=== PATIENT | female | born 1985 | race Caucasian/White ===

== ENCOUNTER → 2018-03-05 12:21 | Outpatient (CLI) | payer MEDICARE, MEDICAID, SELFPAY ==
[2018-03-09 03:07] LABS: Almond 6.02 kU/L (Class IV); Apple 5.08 kU/L (Class IV); Banana 4.63 kU/L (Class IV); Barley, Whole Grain 5.31 kU/L (Class IV); Beef 0.12 kU/L (Class 0/I); Brazil Nut 3.93 kU/L (Class IV); Carrot 5.01 kU/L (Class IV); Crab 3.24 kU/L (Class III); Egg, Whole 0.16 kU/L (Class 0/I); Egg, Yolk 0.11 kU/L (Class 0/I); Garlic 5.01 kU/L (Class IV); Gluten 5.09 kU/L (Class IV); Hazelnut/Filbert 4.46 kU/L (Class IV); Lobster 1.99 kU/L (Class III); Oat 6.02 kU/L (Class IV); Onion 5.16 kU/L (Class IV); Pea 5.08 kU/L (Class IV); Pecan 1.36 kU/L (Class II); Pork 0.17 kU/L (Class 0/I); Potato, White 5.44 kU/L (Class IV); Rice 6.33 kU/L (Class IV); Salmon 0.21 kU/L (Class 0/I); Strawberry 5.64 kU/L (Class IV); Tomato 5.86 kU/L (Class IV); Tuna <0.10 kU/L (Class 0); Yeast 0.27 kU/L (Class 0/I)
[2018-03-09 14:09] LABS: Cashew 3.84 kU/L (Class III); Turkey 0.22 kU/L (Class 0/I)
== END ==
PROVIDERS: Family Provider Family Medicine; PCP Family Medicine; Visit Provider Otolaryngology Otolaryngology/Facial Plastic Surgery
DX: T78.40XA Allergy, unspecified, initial encounter (principal)
CPT/HCPCS: 36415; 86003

== ENCOUNTER 2018-04-05 08:00 | Outpatient (RCR) | payer MEDICARE, MEDICAID, SELFPAY | END 2018-04-05 23:59 | disposition home or self-care (01) | LOC: NS 08:00 | PROVIDERS: Family Provider Family Medicine; PCP Family Medicine; Visit Provider Otolaryngology Otolaryngology/Facial Plastic Surgery | DX: K52.29 Other allergic and dietetic gastroenteritis and colitis (principal); Z71.3 Dietary counseling and surveillance | CPT/HCPCS: 97802 ==

== ENCOUNTER 2018-12-28 22:39 | Emergency (ER) | payer MEDICARE, MEDICAID, SELFPAY ==
[2018-12-28 22:39] VITALS: BP 151/83; PULSE 73; RESP 16; TEMP 36.5; O2SAT 100; BMI 35.6
--- NOTE | 2018-12-28 23:09 | ED.DCSUM_ITS ---
- ER Visit Summary Date of Service: 12/28/18 Chief Complaint: Patient reports pain, redness and itching left eye History of Present Illness: The patient is a 33 F who presents because coworkers concerned that the redness may affect her retina. She denies double vision, blurred vision loss of vision. She has no history of trauma. She does not wear contacts nor does she wear glasses. She denies drainage from the eye. She denies photophobia. She is apprehensive to open it because of pain. Physical Examination: Vital signs noted blood pressure is elevated. She does have history of high blood pressure. There is a subconjunctival hemorrhage temporal half left eye. Pupils are equal round reactive paradoxic muscle intact. Sclerae anicteric. There is no photophobia to direct or consensual light. There is no preauricular lymphadenopathy. There is no advised the lid, lash and lacrimal apparatus. There is no evidence of preseptal cellulitis. There is no outward signs of trauma. Slit-lamp exam reveals no abnormality cornea and the anterior chamber is normal. Test Results: None were obtained Emergency Department Course and Treatment: Patient was informed she has a subconjunctival hemorrhage. Since she has no prior history and has no history of bleeding disorder, rash and specifically petechia purpura, hematuria melena or hematochezia no workup is needed at this time. Treatment Plan: Outpatient referral to Dr. Deonte Cisse as needed Disposition: Discharge to home Impression: Subconjunctival hemorrhage left eye This note was generated with [employer] dictation software. It may contain incorrect words, spelling, and punctuation that were not noted in review of the chart prior to signing ED Disposition - Plan for ED Patient: Disposition: Home or Assisted Living Instructions: ED Eye Injury Subconj Hemorrhage Referrals: Kurt Brizuela MD [Primary Care Provider] - As Needed Deonte Cisse MD [STAFF PHYSICIAN] - As Needed
[2018-12-28 23:33] VITALS: BP 151/83; PULSE 73; RESP 15; O2SAT 100
== END 2018-12-28 23:34 | disposition home or self-care (01) ==
PROVIDERS: Emergency Provider Emergency Medicine; Family Provider Family Medicine; PCP Family Medicine
DX: H11.32 Conjunctival hemorrhage, left eye (principal); I10 Essential (primary) hypertension; Z87.891 Personal history of nicotine dependence
CPT/HCPCS: 99282

== ENCOUNTER 2019-01-31 22:19 | Emergency (ER) | payer MEDICARE, MEDICAID, SELFPAY ==
[2019-01-31 22:19] VITALS: BP 124/79; PULSE 89; RESP 16; TEMP 36.8; O2SAT 98; BMI 35.2
[2019-01-31 22:41] LABS: Bedside Glucose 162 mg/dL (70-110)
--- NOTE | 2019-01-31 22:57 | EKG12_ITS ---
Test Reason : DIZZINESS Blood Pressure : / mmHG Vent. Rate : 092 BPM Atrial Rate : 092 BPM P-R Int : 170 ms QRS Dur : 074 ms QT Int : 364 ms P-R-T Axes : 034 -01 024 degrees QTc Int : 450 ms Normal sinus rhythm Normal ECG Confirmed by CORA JORDAN, BLANCA ([id number]), pictures editor RIANNA AKBAR ([id number]) on 02/03/2019 11:50:33 AM Referred By: MARIO Confirmed By:BLANCA SHEPHERD MD
--- NOTE | 2019-01-31 22:58 | ED.VIS.GEN ---
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 involuntary convulsions RUE. no LOC. Narrative: Patient states she has a history of a seizure disorder, she stopped taking her seizure medicine for years ago because she did not want to be on it. She states she has not had any seizure activity. Tonight she felt chills and lightheaded, about 30 or 45 minutes later she started feeling gradual onset of numbness throughout her right side and convulsions her right arm that she could not stop, which continued to this time. She had trouble walking. She denies a headache or any loss of consciousness. She does not know what her prior seizures would like, she thinks she was unconscious for them and only knows that her boyfriend saw them when they occurred, who is who took her to see an unknown doctor in [place] to manage this problem who she has not seen in a long time. She does not remember what medication she was on since she has not taken it in 4 years. She denies any recent head injury or illness. She denies using any drugs or substances. - Past Medical History (1) HTN (hypertension) Status: Chronic (2) Type 2 diabetes mellitus Status: Chronic (3) Seizure disorder Status: Chronic Past Medical History - Allergies and Home Meds Allergies/Adverse Reactions: Allergies codeine phosphate [From Tylenol-Codeine #3] Allergy (Verified 01/31/19 22:21) Swelling shellfish derived Allergy (Verified 01/31/19 22:21) Swelling venom-honey bee [bee venom (honey bee)] Allergy (Verified 01/31/19 22:21) Angioedema Primary Care Physician: Kurt Brizuela MD [Primary Care Provider] - Surgical History: - - C-sections Smoking Status: Current every day smoker Drugs: None Review of Systems General: Reports: Chills, Malaise. Denies: Fever, Sweats Eyes: Denies: Visual changes - bilaterally, Diplopia ENT: Denies: Rhinorrhea, Sore throat Cardiovascular: Denies: Chest pain, Palpitations Respiratory: Denies: Dyspnea, Cough, Dyspnea on exertion Gastrointestinal: Denies: Abdominal pain, Nausea, Vomiting, Diarrhea, Melena, Hematochezia Genitourinary: Denies: Dysuria, Hematuria, Frequency Musculoskeletal: Denies: Back pain, Extremity Pain Skin: Denies: Rash, Wounds Neurological: Reports: Parasthesia, - - tremor/convulsions RUE. Denies: Headache, Weakness Physical Exam Vital Signs/Narrative: Vital Signs Temp Pulse Resp BP Pulse Ox 01/31/19 22:19 98.2 F 89 16 124/79 H 98 Inital Vital Signs reviewed: Yes General: Well nourished, Well developed, No Acute Distress Head: Normocephalic, Atraumatic Eyes: Perrl, EOMI ENT: Moist mucous membranes, No rhinorrhea Neck: Supple, Nontender Cardiovascular: Regular rate, Regular rhythm, No murmurs Respiratory: No distress, CTA bilaterally, Chest nontender Abdomen: Soft, Nontender, Nondistended, Normal bowel sounds Back: Nontender, Normal Inspection. Negative for: CVA tenderness Extremities: Nontender, No edema Skin: Normal color, No rash, No Trauma Neurological: Alert, Oriented x3, Cranial nerves II-XII grossly intact, Parasthesia - RUE and RLE. nml sensation on face., Weakness - RUE and RLE, - - rhythmic convulsions RUE that come and go, minutes at a time. BUE tremulous when holding up. RLE hits bed. RUE drifts. nml response/answers to questions. no dysarthria or aphasia, nml EOM and visual knutson and cerebellar. Total NIHSS - 4.. Negative for: Left side facial droop, Right side facial droop Psychological: Normal affect, Normal Mood Diagnostic/Tx/Re-eval Impressions Head CTA 01/31/19 23:05 IMPRESSION: Normal [place] without a demonstrated aneurysm or hemodynamically significant stenosis. Electronically Signed: Kenny Pearson MD at 0:39 EDT , Service support , Neck CTA 01/31/19 23:05 IMPRESSION: Normal bilateral cervical carotid and vertebral arteries. Electronically Signed: Kenny Pearson MD at 0:33 EDT , Service support , 01/31/19 23:05 CTA Head W/WO Contrast [CT] Stat CTA Neck W/WO Contrast [CT] Stat Laboratory Results 01/31/19 01/31/19 01/31/19 22:31 23:30 23:30 WBC 6.5 RBC 4.12 L Hgb 12.4 Hct 36.4 L MCV 88.3 MCH 30.1 MCHC 34.1 RDW 15.0 H RDW Differential 47.7 H Plt Count 179 MPV 10.3 Immature Gran % (Auto) 0.300 Neut % (Auto) 59.2 Lymph % (Auto) 29.9 [place] % (Auto) 7.8 Eos % (Auto) 2.5 Baso % (Auto) 0.3 Absolute Neuts (auto) 3.9 Absolute Lymphs (auto) 1.95 Total Counted Not Reportable Sodium 141 Potassium 3.9 Chloride 109 H Carbon Dioxide 25.0 Anion Gap 7 BUN 10 Creatinine 0.72 Estim Creat Clear Calc 91.93 Est GFR (MDRD) Af Amer 118 Est GFR (MDRD) Non-Af 98 BUN/Creatinine Ratio 13.8 Glucose 95 Calcium 8.4 L POC Glucose 162 H - Rhythm Strip Rhythm Strip: Sinus Rhythm Rate: 90 Ectopy: None - EKG Initial EKG Interpretation: Sinus Rhythm, No Acute Injury Pattern, - - normal EKG - Medical Decision Making Imaging shows no large vessel occlusion, hemorrhage, or suspicion for acute ischemic abnormality. Her labs are unremarkable, her EKG shows sinus rhythm and is normal. After Ativan, the convulsions and right upper extremity stopped. She is feeling drowsy, and while she was walking to the bathroom with nursing assistance, she seemed to pass out in their arms, and was taken back to the room and had normal vital signs on reevaluation, normal spontaneous breathing and a quick recovery. She did not remember walking to the bathroom. She is neurologically intact and able to move all 4 extremities equally and with normal strength. Plan is to observe her here in the ED longer, give her some more fluids, and eventually discharge her home when she is more awake to follow-up with neurology. She wants to follow-up locally, she was given their information. She does not want to be on antiepileptics at this time. She was advised that she cannot drive. ED Disposition - Plan for ED Patient: Disposition: Home or Assisted Living Diagnosis: Simple partial seizures, Seizure disorder Instructions: Partial Seizures: Know What to Do, ED Seizure Recurrent Referrals: Trino Chambers MD [STAFF PHYSICIAN] - As soon as possible Additional Instructions: You Cannot drive until you are seen and cleared by Neurology. Call for an appointment.
--- NOTE | 2019-01-31 23:02 | ED.DCSUM_ITS ---
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 involuntary convulsions RUE. no LOC. Narrative: Patient states she has a history of a seizure disorder, she stopped taking her seizure medicine for years ago because she did not want to be on it. She states she has not had any seizure activity. Tonight she felt chills and lightheaded, about 30 or 45 minutes later she started feeling gradual onset of numbness throughout her right side and convulsions her right arm that she could not stop, which continued to this time. She had trouble walking. She denies a headache or any loss of consciousness. She does not know what her prior seizures would like, she thinks she was unconscious for them and only knows that her boyfriend saw them when they occurred, who is who took her to see an unknown doctor in [place] to manage this problem who she has not seen in a long time. She does not remember what medication she was on since she has not taken it in 4 years. She denies any recent head injury or illness. She denies using any drugs or substances. - Past Medical History (1) HTN (hypertension) Status: Chronic (2) Type 2 diabetes mellitus Status: Chronic (3) Seizure disorder Status: Chronic Past Medical History - Allergies and Home Meds Allergies/Adverse Reactions: Allergies codeine phosphate [From Tylenol-Codeine #3] Allergy (Verified 01/31/19 22:21) Swelling shellfish derived Allergy (Verified 01/31/19 22:21) Swelling venom-honey bee [bee venom (honey bee)] Allergy (Verified 01/31/19 22:21) Angioedema Primary Care Physician: Kurt Brizuela MD [Primary Care Provider] - Surgical History: - - C-sections Smoking Status: Current every day smoker Drugs: None Review of Systems General: Reports: Chills, Malaise. Denies: Fever, Sweats Eyes: Denies: Visual changes - bilaterally, Diplopia ENT: Denies: Rhinorrhea, Sore throat Cardiovascular: Denies: Chest pain, Palpitations Respiratory: Denies: Dyspnea, Cough, Dyspnea on exertion Gastrointestinal: Denies: Abdominal pain, Nausea, Vomiting, Diarrhea, Melena, Hematochezia Genitourinary: Denies: Dysuria, Hematuria, Frequency Musculoskeletal: Denies: Back pain, Extremity Pain Skin: Denies: Rash, Wounds Neurological: Reports: Parasthesia, - - tremor/convulsions RUE. Denies: Headache, Weakness Physical Exam Vital Signs/Narrative: Vital Signs Temp Pulse Resp BP Pulse Ox 01/31/19 22:19 98.2 F 89 16 124/79 H 98 Inital Vital Signs reviewed: Yes General: Well nourished, Well developed, No Acute Distress Head: Normocephalic, Atraumatic Eyes: Perrl, EOMI ENT: Moist mucous membranes, No rhinorrhea Neck: Supple, Nontender Cardiovascular: Regular rate, Regular rhythm, No murmurs Respiratory: No distress, CTA bilaterally, Chest nontender Abdomen: Soft, Nontender, Nondistended, Normal bowel sounds Back: Nontender, Normal Inspection. Negative for: CVA tenderness Extremities: Nontender, No edema Skin: Normal color, No rash, No Trauma Neurological: Alert, Oriented x3, Cranial nerves II-XII grossly intact, Parasthesia - RUE and RLE. nml sensation on face., Weakness - RUE and RLE, - - rhythmic convulsions RUE that come and go, minutes at a time. BUE tremulous when holding up. RLE hits bed. RUE drifts. nml response/answers to questions. no dysarthria or aphasia, nml EOM and visual knutson and cerebellar. Total NIHSS - 4.. Negative for: Left side facial droop, Right side facial droop Psychological: Normal affect, Normal Mood Diagnostic/Tx/Re-eval Impressions Head CTA 01/31/19 23:05 IMPRESSION: Normal [place] without a demonstrated aneurysm or hemodynamically significant stenosis. Electronically Signed: Kenny Pearson MD at 0:39 EDT , Service support , Neck CTA 01/31/19 23:05 IMPRESSION: Normal bilateral cervical carotid and vertebral arteries. Electronically Signed: Kenny Pearson MD at 0:33 EDT , Service support , 01/31/19 23:05 CTA Head W/WO Contrast [CT] Stat CTA Neck W/WO Contrast [CT] Stat Laboratory Results 01/31/19 01/31/19 01/31/19 22:31 23:30 23:30 WBC 6.5 RBC 4.12 L Hgb 12.4 Hct 36.4 L MCV 88.3 MCH 30.1 MCHC 34.1 RDW 15.0 H RDW Differential 47.7 H Plt Count 179 MPV 10.3 Immature Gran % (Auto) 0.300 Neut % (Auto) 59.2 Lymph % (Auto) 29.9 [place] % (Auto) 7.8 Eos % (Auto) 2.5 Baso % (Auto) 0.3 Absolute Neuts (auto) 3.9 Absolute Lymphs (auto) 1.95 Total Counted Not Reportable Sodium 141 Potassium 3.9 Chloride 109 H Carbon Dioxide 25.0 Anion Gap 7 BUN 10 Creatinine 0.72 Estim Creat Clear Calc 91.93 Est GFR (MDRD) Af Amer 118 Est GFR (MDRD) Non-Af 98 BUN/Creatinine Ratio 13.8 Glucose 95 Calcium 8.4 L POC Glucose 162 H - Rhythm Strip Rhythm Strip: Sinus Rhythm Rate: 90 Ectopy: None - EKG Initial EKG Interpretation: Sinus Rhythm, No Acute Injury Pattern, - - normal EKG - Medical Decision Making Imaging shows no large vessel occlusion, hemorrhage, or suspicion for acute ischemic abnormality. Her labs are unremarkable, her EKG shows sinus rhythm and is normal. After Ativan, the convulsions and right upper extremity stopped. She is feeling drowsy, and while she was walking to the bathroom with nursing assistance, she seemed to pass out in their arms, and was taken back to the room and had normal vital signs on reevaluation, normal spontaneous breathing and a quick recovery. She did not remember walking to the bathroom. She is neurologically intact and able to move all 4 extremities equally and with normal strength. Plan is to observe her here in the ED longer, give her some more fluids, and eventually discharge her home when she is more awake to follow-up with neurology. She wants to follow-up locally, she was given their information. She does not want to be on antiepileptics at this time. She was advised that she cannot drive. ED Disposition - Plan for ED Patient: Disposition: Home or Assisted Living Diagnosis: Simple partial seizures, Seizure disorder Instructions: Partial Seizures: Know What to Do, ED Seizure Recurrent Referrals: Trino Chambers MD [STAFF PHYSICIAN] - As soon as possible Additional Instructions: You Cannot drive until you are seen and cleared by Neurology. Call for an appointment.
--- NOTE | 2019-01-31 23:05 | CT_ITS ---
STUDY: CTA OF THE BRAIN REASON FOR EXAM: Female, 33 years old. RIGHT-sided weakness RADIATION DOSAGE (If Supplied By Facility): CTDIvol = ( 28.13 ) mGy, DLP = ( 1415.66 ) mGycm TECHNIQUE: CT angiography was performed with a multi-detector CT scanner. Data acquisition was obtained from the skull base through the vertex following intravenous administration of 100ml IV Isovue 300. MIP images were reconstructed from the axial data set. Post-processing of the angiographic images was performed, with multiplanar reformation and 3D reconstruction. Individualized dose optimization techniques were used for this CT. COMPARISON: None. FINDINGS: Normal bilateral [place] carotid arteries. Normal right cavernous carotid artery with a normal supraclinoid bifurcation. Normal left cavernous carotid artery with a normal supraclinoid bifurcation. Normal right A1 segments of the anterior cerebral artery. Normal left A1 segments of the anterior cerebral artery. Normal intact anterior communicating artery (ACOM). Normal bilateral A2 segments of the anterior cerebral arteries. Normal right M1 and M2 segments of the middle cerebral arteries, with a normal M1 bifurcation. Normal left M1 and M2 segments of the middle cerebral arteries, with a normal M1 bifurcation. Normal right posterior communicating artery (PCOM). Normal left posterior communicating artery (PCOM). Normal bilateral vertebral arteries. Normal basilar artery with a normal basilar bifurcation. The visualized bilateral superior cerebellar (SCA) arteries are normal. Normal bilateral P1, P2 and visualized P3 segments of the posterior cerebral arteries. There is no demonstrated aneurysm of the [place]. There is no demonstrated abnormality of the visualized brain. CT/CTA Head W/WO Contrast IMPRESSION: Normal [place] without a demonstrated aneurysm or hemodynamically significant stenosis. Electronically Signed: Kenny Pearson MD at 0:39 EDT , Service support ,
--- NOTE | 2019-01-31 23:05 | CT_ITS ---
STUDY: CTA NECK WITH CONTRAST REASON FOR EXAM: Female, 33 years old. RIGHT-sided paresthesia RADIATION DOSAGE (If Supplied By Facility): CTDIvol = ( 28.13 ) mGy, DLP = ( 1415.66 ) mGycm TECHNIQUE: CT angiography with multi-detector data acquisition was performed from the aortic arch to the skull base following intravenous administration of 100ml IV Isovue 370. MIP images were reconstructed from the axial data set. Post-processing of the angiographic images was performed, with multiplanar reformation and 3D reconstruction. Individualized dose optimization techniques were used for this CT. COMPARISON: None. FINDINGS: AORTIC ARCH: Normal visualized aortic arch. Normal origins of the brachiocephalic, left common carotid, and left subclavian arteries. RIGHT CAROTID ARTERIES: Normal right common carotid artery (CCA). Normal right common carotid bulb. Normal origin of the right internal carotid (ICA) artery without a hemodynamically significant stenosis. Normal visualized cervical portion of the right internal carotid artery. Normal origin of the right external carotid artery (ECA). LEFT CAROTID ARTERIES: Normal left common carotid artery (CCA). Normal left common carotid bulb. Normal origin of the left internal carotid (ICA) artery without a hemodynamically significant stenosis. Normal visualized cervical portion of the left internal carotid artery. Normal origin of the left external carotid artery (ECA). VERTEBRAL ARTERIES: Normal bilateral vertebral arteries. CT/CTA Neck W/WO Contrast IMPRESSION: Normal bilateral cervical carotid and vertebral arteries. Electronically Signed: Kenny Pearson MD at 0:33 EDT , Service support ,
[2019-01-31] MEDS: LORazepam 2 MG/ML Syringe 0.5 MG IV (23:19)
[2019-01-31] MEDS: 0.9% Normal Saline 1,000 ML 999 ML IV (23:19)
[2019-01-31 23:44] LABS: Absolute Lymphocyte Count 1.95 X10^3/ul (0.83-4.51); Absolute Neutrophil Count 3.9 X10^3/uL (2.0-7.7); Basophil# 0.02 X10^3/uL; Basophil% 0.3 % (0-1); Eosinophil# 0.16 X10^3/uL; Eosinophils% 2.5 % (0-5); Hematocrit 36.4 % (37-47); Hemoglobin 12.4 g/dl (12.0-15.0); Lymphocyte # 1.95 X10^3/ul (4.0); Lymphocyte % 29.9 % (19-41); Mean Corp Hgb Conc 34.1 g/gl (32-36); Mean Corpuscular Hgb 30.1 pg (27.0-32.0); Mean Corpuscular Volume 88.3 fL (81-99); Mean Platelet Vol. 10.3 fl (6.2-12.0); Monocyte# 0.51 X10^3/uL; Monocyte% 7.8 % (0-10); Neutrophil # 3.86 X10^3/uL (2.7-7.7); Neutrophil % 59.2 % (47-70); POSITIVE COUNT NO; POSITIVE DIFFERENTIAL NO; POSITIVE MORPHOLOGY NO; Platelet Count 179 K/mm3 (150-450); RBC Distribution Width SD 47.7 fl (35.1-43.9); Red Blood Count 4.12 M/mm3 (4.2-5.4); White Blood Count 6.5 K/mm3 (4.4-11.0)
[2019-01-31 23:59] LABS: Anion Gap 7 (5-15); BUN 10 mg/dL (7-18); BUN/Creat Ratio 13.8 RATIO (10-20); Calcium,Total 8.4 mg/dL (8.5-10.1); Chloride 109 mmol/L (98-107); Creatinine, Serum 0.72 mg/dL (0.55-1.02); EST Glomerular Filtration Rate 98 mL/min (>60); Est Glom Filt Rate - Afr Amer 118 mL/min (>60); Estimated Creatinine Clearance 91.93 ml/min; Glucose 95 mg/dL (74-106); Potassium 3.9 mmol/L (3.5-5.1); Sodium Level 141 mmol/L (136-145)
[2019-02-01 00:30] VITALS: BP 116/78; PULSE 66; RESP 16; O2SAT 97
[2019-02-01 00:40] VITALS: BP 140/93; PULSE 67; RESP 18; O2SAT 100
--- NOTE | 2019-02-01 00:46 | ED.RN ---
while walking pt to the bathroom for urine sample- her gate became slow, she then passed out. 2 RN's held pt up until wheelchair brought. back to bed. BRYCE. aware. pt states she does not remember walking to the bathroom.
[2019-02-01 01:20] LABS: Red Blood Cells-Urine 0 SEEN /hpf (0-5); Squamous Epithelial Cells - UA 0 SEEN /hpf (5-10)
[2019-02-01 01:23] LABS: Color, Urine Yellow (Yellow); Glucose, Dipstick Normal (Normal); Ketone-Dipstick Negative (Negative); Leukocyte Esterase-Dipstick 25 /ul (Negative); Nitrite-Dipstick Negative (Negative); Occult Blood-Urine Negative /ul (Negative); Protein-Dipstick 15 mg/dl (Negative); Specific Gravity, Urine 1.015 (1.002-1.030); Urine Bilirubin Dipstick Negative (Negative); Urine Clarity Clear (Clear); Urine Urobilinogen 1 mg/dl (Normal); Urine pH 6.5 (5.0 - 8.0)
[2019-02-01 01:32] LABS: Internal QC Validated? YES +Cl - CLEAR BKGD; Pregnancy, Urine Negative Negative
[2019-02-01 01:34] LABS: Bacteria RARE /hpf (None Seen); Mucous, Urine 2+ /hpf (<or=2+); White Blood Cells 0-5 SEEN /hpf (0-5)
[2019-02-01 02:54] VITALS: BP 121/62; PULSE 66; RESP 16
== END 2019-02-01 02:54 | disposition home or self-care (01) ==
PROVIDERS: Emergency Provider Emergency Medicine; Family Provider Family Medicine; PCP Family Medicine
DX: G40.109 Localization-related (focal) (partial) symptomatic epilepsy and epileptic syndromes with simple partial seizures, not intractable, without status epilepticus (principal); I10 Essential (primary) hypertension; E11.9 Type 2 diabetes mellitus without complications; F17.200 Nicotine dependence, unspecified, uncomplicated
CPT/HCPCS: 36415; 70496; 70498; 80048; 81001; 81025; 82962; 85025; 93005; 96361; 96374; 99283; J7030; Q9967; A4216

== ENCOUNTER 2019-02-19 21:03 | Emergency (ER) | payer OTHER, MEDICARE, SELFPAY ==
[2019-02-19 21:03] VITALS: BP 144/82; PULSE 90; RESP 16; TEMP 36.6; O2SAT 98; BMI 33.3
--- NOTE | 2019-02-19 22:10 | RAD_ITS ---
STUDY: X-RAY - LEFT KNEE REASON FOR EXAM: Female, 33 years old. Generalized left knee pain beginning today. TECHNIQUE: 4 view(s) of the knee. COMPARISON: None. FINDINGS: Normal visualized distal femur. Normal visualized proximal tibia and fibula. Normal proximal tibiofibular articulation. Vertebral fracture Normal medial femorotibial compartment. Normal lateral femorotibial compartment. Normal patellofemoral articulation. There is no demonstrated joint effusion. The soft tissue structures are unremarkable. RAD/Knee 4 or More Views IMPRESSION: Normal x-ray examination of the knee. Electronically Signed: Han Garcia DO at 22:27 EDT Tel [phone], Service support ,
--- NOTE | 2019-02-19 23:02 | ED.DCSUM_ITS ---
- ER Visit Summary Date of Service: 02/19/19 Chief Complaint: [Left knee pain] History of Present Illness: The patient is a 33 F [presents the emergency department complaint left knee pain that started 6 hours ago. Patient was at work when it started. Patient denies any injury or trauma. Patient states the pain is worse with walking. At times patient feels like it pops. She denies recent travel or surgery. She has not had pain like this before.] Physical Examination: [Left knee-patient has diffuse tenderness over the medial joint line and the prepatellar tendon. Patient has pain with flexion at the knee. No obvious effusion noted. There is no erythema or warmth noted. She is neurovascular intact distally. She has no tenderness over the calf. No ropes or cords palpated. Negative Homans sign.] Test Results: [X-ray of the left knee was normal] Emergency Department Course and Treatment: [Patient was given a knee immobilizer and crutches.] Treatment Plan: [She will be given a prescription for naproxen. Patient will be given referral to orthopedics for follow-up.] Disposition: [Discharged home stable condition] Impression: [Left knee pain-etiology uncertain. Cannot rule out internal derangement.] This note was generated with [employer] dictation software. It may contain incorrect words, spelling, and punctuation that were not noted in review of the chart prior to signing ED Disposition - Plan for ED Patient: Referrals: Kurt Brizuela MD [Primary Care Provider] -
--- NOTE | 2019-02-19 23:03 | ED.DEP ---
ED Disposition - Plan for ED Patient: Instructions: ED Knee Pain [facility] Prescriptions: Naproxen [Naprosyn] 500 mg PO BID PRN #20 tab Referrals: Kurt Brizuela MD [Primary Care Provider] - Dayron Andrews MD [STAFF PHYSICIAN] - 3-5 Days
[2019-02-19 23:13] VITALS: BP 136/72; PULSE 80; RESP 16; O2SAT 100
== END 2019-02-19 23:13 | disposition home or self-care (01) ==
LOC: ED 21:59
PROVIDERS: Emergency Provider Emergency Medicine; Family Provider Family Medicine; PCP Family Medicine
DX: M25.562 Pain in left knee (principal); I10 Essential (primary) hypertension; Z72.0 Tobacco use
CPT/HCPCS: 73564; 99284

== ENCOUNTER 2019-08-14 09:07 | Day surgery (SDC) | payer OTHER, MEDICARE, SELFPAY ==
[2019-05-12 11:11] VITALS: BMI 33.3
--- NOTE | 2019-08-12 16:27 | HP.PCM_ITS ---
History and Physical Date of Admission: 08/14/19 HPI: The patient is a 34 year old female presenting for pre-operative visit. She is scheduled for?hysteroscopy with resection of submucosal fibroids and Mirena insertion, for?menorrhagia on?08/14/19. ??Procedure discussed along with risks, benefits and complications. ?Other alternatives discussed for management. Consent form signed??Yes.? PAST?MEDICAL?HISTORY PAST MEDICAL HISTORY Diagnosis Date ? Diabetes mellitus of mother, complicating , childbirth, or the puerperium, unspecified as to episode of care(648.00) ? ? Gestational diabetes ? Dysthymic disorder ? ? Depression (non-psychotic), ? Essential hypertension, benign ? ? Hemorrhoids 05/19/2011 ? Migraine, unspecified, with intractable migraine, so stated, without mention of status migrainosus ? ? Migraine ? Nipple discharge 02/19/2016 ? PMH - PAST MEDICAL HISTORY OF ? ? DYSLEXIA ? PMH - PAST MEDICAL HISTORY OF 1988 ? FRACTURED LEFT LEG ? PMH - PAST MEDICAL HISTORY OF 01/12 ? HOSPITALIZED FOR RUPTURED OVARIAN CYST ? SPINAL HEADACHE ? ? WITH DELIVERIES IN 2009&2011 ? Unspecified asthma(493.90) ? ? ? PAST?SURGICAL?HISTORY PAST SURGICAL HISTORY Procedure Laterality Date ? DELIVERY ONLY ? 03/31/2008,10/14/2009 ? , low cervicalx2 ? DELIVERY ONLY ? 06/06/13 ? , low transverse ? CHOLECYSTECTOMY ? 10/07/2018 ? COLONOSCOP W/ OR W/O BRSH SPEC ? 11/28/2013 ? Colonoscopy ? EGD W/O OR W/BRUSH/WASH ? 11/28/2013 ? EGD ? LIGATE FALLOPIAN TUBE ? 06/06/13 ? Tubal ligation ? REMOVAL OF GALLBLADDER ? 10/07/2018 ? [place] ? REPAIR UMBILICAL HERNIA ? 06/20/2017 ? with ventralex ST medium mesh [facility]? ? ? CURRENT?MEDICATIONS Current Outpatient Medications Medication Sig Dispense Refill ? promethazine (PHENERGAN) 12.5 mg tablet TAKE 1 TABLET BY MOUTH EVERY 6 HOURS NEEDED 12 tablet 0 ? traZODone (DESYREL) 150 mg tablet Take 1 tablet by mouth daily at bedtime. 30 tablet 2 ? lisinopril (ZESTRIL, PRINIVIL) 20 mg tablet Take 1 tablet by mouth once daily. 30 tablet 5 ? escitalopram oxalate (LEXAPRO) 20 mg tablet Take 1 tablet by mouth once daily. 30 tablet 2 ? metFORMIN (GLUCOPHAGE) 500 mg tablet Take 1 tablet by mouth daily with breakfast. 30 tablet 11 ? Woiousxgelxcsbq-Kjadavvzb-WH (BROMFED DM) 2-30-10 mg/5 mL syrup Take 5-10 ml po q6h prn (Patient not taking: Reported on 07/17/2019 ) 120 mL 0 ? albuterol HFA (PROAIR HFA) 90 mcg/actuation inhaler Inhale 2 Puffs as instructed every 4 hours as needed. 1 Inhaler 0 ? albuterol HFA (VENTOLIN HFA) 90 mcg/actuation inhaler Inhale 2 Puffs as instructed every 4 hours as needed for Wheezing/Shortness of Breath. (Patient not taking: Reported on 07/24/2019 ) 1 Inhaler 0 ? No current facility-administered medications for this visit.? ? ALLERGIES:?Augmentin [Amoxicillin-Pot Clavulanate]; Tylenol #3 [Codeine]; Venom- Honey Bee ? PERSONAL HISTORY:? 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 control/protection: Tubal Ligation ??Lifestyle ?Physical activity: ?Days per week: Not on file ?Minutes per session: Not on file ?Stress: Not on file ??Relationships ?Social connections: ?Talks on phone: Not on file ?Gets together: Not on file ?Attends lutheran service: Not on file ?Active member of club or organization: Not on file ?Attends meetings of clubs or organizations: Not on file ?Relationship status: Not on file ?Intimate partner violence: ?Fear of current or ex partner: Not on file ?Emotionally abused: Not on file ?Physically abused: Not on file ?Forced sexual activity: Not on file ??Other Topics ?Concerns: ?Not on file ??Social History Narrative ?Not on file ? FAMILY HISTORY:? FAMILY?HISTORY FAMILY HISTORY Problem Relation Age of Onset ? Asthma Mother ? ? Hypertension Mother ? ? Hypertension Father ? ? Diabetes Father ? ? Cancer Maternal Grandfather ?LUNG CANCER ? Cancer Paternal Grandfather ?THROAT CANCER ? Heart Maternal Grandmother ?DC ? Lipids Father ? ? Breast Cancer Mother ? ? Breast Cancer Maternal Aunt ? ? Breast Cancer Paternal Aunt ? ? Diabetes Mother ? ? REVIEW OF SYMPTOMS: GENERAL: denies fevers or chills ENDOCRINOLOGY: has not been on steroids Cardiology : denies palpitations or chest pain Respiratory: denies SOB or cough Hematology: denies history of prolonged bleeding or easy bruising or VTE Allergy: Denies history of personal or family history of allergy to anesthesia ? ? PHYSICAL EXAMINATION: ? VITALS:?There were no vitals taken for this visit. ? GENERAL:??The patient is well nourished, well hydrated in no acute distress. ?, The patient is oriented to time, place, and person. NECK:?Supple. No lynphadenopathy, normal thyroid, no thyromegaly. LUNGS:?Clear to auscultation bilaterally. no wheezes, rhonchi or rales HEART:?Regular rate and rhythm, Normal heart sounds and No murmurs or gallops ? ? ? IMPRESSION:?menorrhagia, submucosal uterine fibroids ? PLAN:???The risks/benefits/alternatives and personal involved for the planned?hysteroscopy with resection of uterine fibroids and Mirena insertion?were reviewed with the patient. Her questions were answered to her satisfaction and she desires to proceed. ?Consent was signed. ?I reviewed with her postop instructions and expectations. ? ? I have reviewed and updated past medical and surgical history, medications and allergies. Pelvic us 07/18/19 ?Overall impression: Uterus normal size and contour. ?Endometrial thickness 10.6 mm. ?There is a small submucosal fibroid that is projecting into the cavity approximately 50% measuring 0.9 cm in greatest dimension. ?There are 3 subserosal fibroids the largest measuring 1.6 cm in greatest dimension. ?The other 2 fibroids ?are less than 1 cm each. Both ovaries appear polycystic in nature. No free fluid in the cul-de-sac. Follow- up: Follow-up as clinically indicated. Indication: Irregular cycles. Menorrhagia. History: Last menstrual period: 07/11/2019. 8th day of cycle. Cycle length: 21 days. Gynecological History: Bleedin days. Abnormal. Contraception: sterilization. Gynecological Ultrasonography: Uterus: anteverted, axial tilt fundally. Size: Longitudinal 83 mm. Anterio- posterior 42 mm. Transverse 49 mm. Volume: 89.4 ?ml. Uterine abnormalities: none. Fibroids: Fibroid 1: Size: 8 mm x 9 mm x 9 mm. Type: subserous fibroid. Anterior. Fibroid 2: Size: 8 mm x 8 mm x 8 mm. Type: subserous fibroid. Anterior. Fibroid 3: Size: 16 mm x 12 mm x 17 mm. Type: subserous fibroid. Anterior. Fibroid 4: Size: 9 mm x 8 mm x 9 mm. Type: submucous fibroid, less than 50% projects into the endometrial cavity. Posterior. Endometrium thickness total: 10.6 mm. This H&P was completed in my office on 08/12/19.
[2019-08-14] VITALS (13 sets, daily range): BP systolic 92–116; BP diastolic 55–76; PULSE 70–85; RESP 16; TEMP 36.7–36.8; O2SAT 96–100; BMI 34.0
--- NOTE | 2019-08-14 | EMB_PTH ---
PATIENT: REINALDO WARREN LOC: [facility] [place] U#:[id number] AGE/SX: 34/F ROOM: RE08/14/[address]: Dr. Renee Manuel MD : 1985 BED: DIS: 08/14/2019 SPEC #: [id number] RECD: 08/14/19 12:54 STATUS: MAEGAN REAnanth #: [id number] DONAVON: 08/14/19 00:[address]: Renee Manuel DEPT: SURGICAL PATHOLOGY RECD BY: Max Barney ENTERED: 08/14/19 12:55 SP TYPE: ENDOM BX/C OTHR DR: Dr. Kurt Brizuela MD Tissues: Endometrium, NOS Procedures: Surgery Specimen Level IV HEADER OPERATION: Hysteroscopy, D & C, IUD insertion PRE-OP DIAGNOSIS: Menorrhagia TISSUE SUBMITTED: Endometrial curettings MICROSCOPIC DIAGNOSIS Endometrium, curettings: Transition endometrium with glandular and stromal breakdown. Strips of benign superficial endocervix. AM:jennifer 08/15/19 MICROSCOPIC DESCRIPTION Slides are reviewed. GROSS DESCRIPTION Received in fixative is one container labeled with the patient's name and designated endometrial curettings. The specimen consists of multiple fragments of hemorrhagic soft tissue mixed with mucoid tissue that in aggregate measure 5 x 3 x 0.3 cm. The entire specimen is submitted in two cassettes. / SJ:jennifer 08/14/19 TC:5 CPT: 68615
[2019-08-14] MEDS: Celecoxib 200 MG Capsule 400 MG PO (09:44)
--- NOTE | 2019-08-14 09:44 | PCM.OPRPT ---
Report of Operation Date of Procedure: 08/14/19 Pre-Operative Diagnosis: menorrhagia, dysmenorhea, uterine fibroids Post-Operative Diagnosis: same + fibroids of uterus- intramural Surgery/Procedure Performed:: TVH, cystoscopy, modified Mayo's culdoplasty Description of Surgical Findings:: Retroverted retroflexed uterus, normal cervix and vagina. Type of Anesthesia:: MAC/Supplemental/Local Anesthesiologist: Josafat Marcano Special Medications: none Specimen's removed: endometrial curettings Drains: none Estimated Blood Loss (mL): 20 Fluids Replaced: 900 cc Description of Procedure: The patient was taken to the OR where she was prepped and draped in dorsal lithotomy position. The weighted speculum was placed in the vagina and the anterior lip of the cervix was grasped with a single-tooth tenaculum. A paracervical block was administered with 1% lidocaine with 1-100,000 epinephrine solution. The cervix was dilated serially with Hegar dilators. The 5mm hysteroscope was placed into the uterine cavity due to the left endometrium I was unable to visualize the cavity well. The hysteroscope was removed. Gentle sharp curettage was done. Hysteroscope was reinserted. Bilateral tubal ostia were identified. The uterine cavity was normal in shape. There were no polyps or fibroids protruding into the endometrial cavity. The liz were smooth. The hysteroscope was removed. The Mirena intrauterine system was placed into the uterus in the usual sterile fashion and the strings trimmed to 3 cm. The instruments were removed from the vagina. The specimen was handed off and sent to pathology. All sponge and needle counts were correct. Vaginal sweep was performed by me. The patient was awakened and taken to the recovery room in stable condition. Hysteroscopic fluid deficit: 50 cc of normal saline Findings: Endometrial cavity: Normal, no fibroids or polyps noted Cervix: Normal Vagina: Normal Grafts/Implants Used: Mirena intrauterine system - Complications none - Admit VTE Documentation VTE Present on Admission: No VTE Mechan Device Prophylaxis: SCD's VTE Pharm Prophylaxis ordered?: No Reason prophylaxis not ordered:: Procedure Not Indicated
[2019-08-14] MEDS: Scopolamine 1mg/72hr Patch 1 PATCH TRANSDERM. (09:45)
[2019-08-14] MEDS: Acetaminophen 500 MG Tablet 1000 MG PO (09:45)
[2019-08-14 09:46] LABS: Bedside Glucose 87 mg/dL (70-110)
[2019-08-14] MEDS: Lactated Ringers 1,000 ML 100 ML IV ×2 (09:50→11:57)
[2019-08-14 09:54] LABS: Internal QC Validated? YES +Cl - CLEAR BKGD; Pregnancy, Urine Negative Negative
--- NOTE | 2019-08-14 10:35 | DCINST_ITS ---
Discharge Diet: No Restrictions Discharge Activity: Return to Normal Activity, May Shower, May Take a Tub Bath - in 2 weeks. Return to work on:: 08/18/19 May shower in (days): 1 May resume sexual activity in: 2 weeks Call your doctor if your incision/area has: Sudden Increased Bleeding, Foul Smelling Discharge Call your doctor if you observe: Fever of 101 or Higher, Using more than one pad per hour - for 2 hrs in a row Allergies/Adverse Reactions: Allergies codeine phosphate [From Tylenol-Codeine #3] Allergy (Verified 08/13/19 08:36) Swelling shellfish derived Allergy (Verified 08/13/19 08:36) Swelling venom-honey bee [bee venom (honey bee)] Allergy (Verified 08/13/19 08:36) Angioedema Medications to take at Discharge Lisinopril [Prinivil] 20 mg PO QHS 12/28/18 Escitalopram Oxalate 20 mg PO DAILY 01/31/19 Albuterol Inhaler [Ventolin Hfa] 1 - 2 puff INHALATION Q6H PRN PRN 08/13/19 Metformin HCl 500 mg PO BID 08/13/19 Trazodone ER [Oleptro Er] 150 mg PO QHS 08/13/19 Hydrocodone/Acetaminophen [[place] 5-325 Tablet] 1 each PO Q6H PRN PRN 2 Days #6 tablet 08/14/19 Naproxen [Naprosyn] 500 mg PO BID PRN #20 tab 08/14/19 The following prescriptions were given: Naproxen [Naprosyn] 500 mg PO BID PRN #20 tab Transmission Status: Pending to [facility]/pharmacy #[id number] Hydrocodone/Acetaminophen [[place] 5-325 Tablet] 1 each PO Q6H PRN PRN 2 Days #6 tablet PRN Reason: SEVERE PAIN Transmission Status: Received by [facility][id number] Primary Care Physician: Kurt Brizuela MD [Primary Care Provider] - Test Results: Test results from this visit will be discussed in further detail at your follow- up appointment, if applicable. Please Follow Up With: Renee Manuel MD - [phone] When: 2-3 months or as needed
[2019-08-14] MEDS: Lubricating Jelly 60 GM Tube 30 GM TOPICAL (10:53)
[2019-08-14 11:10] LABS: Bedside Glucose 108 mg/dL (70-110)
== END 2019-08-14 12:35 | disposition home or self-care (01) ==
LOC: SDC 09:18 → AC 09:19
PROVIDERS: Family Provider Family Medicine; PCP Family Medicine; Referring Provider Obstetrics & Gynecology; Visit Provider Obstetrics & Gynecology
PROC: 0UB98ZZ Excision of Uterus, Via Natural or Artificial Opening Endoscopic (ICD-10-PCS; CPT 58558; principal; 2019-08-14 10:30)
DX: N92.0 Excessive and frequent menstruation with regular cycle (principal); N94.6 Dysmenorrhea, unspecified; D25.1 Intramural leiomyoma of uterus; Z30.430 Encounter for insertion of intrauterine contraceptive device; K21.9 Gastro-esophageal reflux disease without esophagitis; E11.9 Type 2 diabetes mellitus without complications; F32.9 Major depressive disorder, single episode, unspecified; I10 Essential (primary) hypertension; J45.909 Unspecified asthma, uncomplicated; Z79.84 Long term (current) use of oral hypoglycemic drugs; Z79.899 Other long term (current) drug therapy; Z87.891 Personal history of nicotine dependence; Z86.73 Personal history of transient ischemic attack (TIA), and cerebral infarction without residual deficits
CPT/HCPCS: 58300; 58558; 81025; 82962; 88305; J7120

== ENCOUNTER 2019-08-17 21:37 | Emergency (ER) | payer OTHER, MEDICARE, SELFPAY ==
[2019-08-14 09:38] VITALS: BMI 34.0
[2019-08-17 21:38] VITALS: BP 141/81; PULSE 92; RESP 15; TEMP 37.2; O2SAT 95; BMI 34.7
[2019-08-17 22:04] VITALS: RESP 18
[2019-08-17] MEDS: Ondansetron 4 MG/2 ML Vial IV (22:22)
[2019-08-17] MEDS: Ketorolac 15 MG/ML Vial IV (22:24)
--- NOTE | 2019-08-17 22:25 | ED.DCSUM_ITS ---
History of Present Illness Chief Complaint: Other, Pain/Inj Informant: Patient Onset: Yesterday Context: Sudden Onset Timing: Continuous Quality: Cramping Location: Lower abdomen/left side Current Severity: Severe Maximum Severity: Severe Worsened by: Movement, palpation Relieved by: Nothing Associated Symptoms: Subjective fever Narrative: Patient is a 34-year-old woman who had a Mirena placed by Dr. Renee Manuel on . She presents because of severe colicky pain. She also complains of dysuria and frequency. She reports subjective fever. She denies chills. She denies vaginal bleeding or discharge. Patient states she wants the device removed. She denies cardiac or respiratory symptoms. She denies nausea, vomiting or diarrhea. Prior similar symptoms: No Recent Illness/Hospitalization: Yes - Past Medical History (1) HTN (hypertension) Status: Chronic (2) Seizure disorder Status: Chronic (3) Type 2 diabetes mellitus Status: Chronic Past Medical History - Allergies and Home Meds Allergies/Adverse Reactions: Allergies codeine phosphate [From Tylenol-Codeine #3] Allergy (Verified 08/17/19 21:41) Swelling shellfish derived Allergy (Verified 08/17/19 21:41) Swelling venom-honey bee [bee venom (honey bee)] Allergy (Verified 08/17/19 21:41) Angioedema Primary Care Physician: Kurt Brizuela MD [Primary Care Provider] - Prior records reviewed: Yes Surgical History: - - C-sections Lives: Alone Smoking Status: Former smoker Alcohol: Rare Drugs: None Review of Systems General: Reports: Fever, Subjective. Denies: Chills, Malaise Eyes: Denies: Visual changes - bilaterally, Blurred Vision - bilaterally ENT: Denies: Bilateral ear pain, Rhinorrhea, Sore throat Cardiovascular: Denies: Chest pain, Palpitations Respiratory: Denies: Dyspnea, Cough, Dyspnea on exertion Gastrointestinal: Reports: Abdominal pain, Nausea. Denies: Vomiting, Diarrhea, Constipation, Melena, Hematochezia, -, - Genitourinary: Reports: Dysuria, Frequency. Denies: Hematuria Musculoskeletal: Denies: Myalgias, Arthralgias, Neck pain, Back pain, Swelling, Extremity Pain, -, - Skin: Denies: Rash, Wounds Neurological: Denies: Headache, Weakness, Numbness Hematologic: Denies: Easy bruising, Easy bleeding Allergy: Denies: Uticaria, Swelling of the mouth Physical Exam Vital Signs/Narrative: Vital Signs Temp Pulse Resp BP Pulse Ox 08/17/19 22:04 18 08/17/19 21:38 99.0 F 92 15 141/81 H 95 Inital Vital Signs reviewed: Yes General: Well nourished, Well developed, No Acute Distress Head: Normocephalic, Atraumatic Eyes: Perrl, EOMI. Negative for: Pale conjunctiva, Scleral icterus ENT: Moist mucous membranes, No rhinorrhea Neck: Supple, Nontender. Negative for: No lymphadenopathy, No JVD Cardiovascular: Regular rate, Regular rhythm, No murmurs, Normal S1, Normal S2 Respiratory: No distress, CTA bilaterally, Chest nontender Abdomen: Soft, Nondistended, Normal bowel sounds, Tender. Negative for: Guarding, Rebound tenderness : - - External genitalia normal. There is blood noted at the introitus. Speculum exam reveals that the device was being expelled. Device was being expelled string was grasped with forceps and easily removed. Patient's cramping pain improved. There was no discomfort with bimanual exam. There is no obvious enlargement of the uterus. There is no cervical motion tenderness. Unable to assess ovaries based on body habitus. Back: Nontender, Normal Inspection Extremities: Nontender, No edema Skin: Normal color, No rash Neurological: Alert, Oriented x3, Cranial nerves II-XII grossly intact, Normal Strength, Normal Sensation Psychological: Normal affect, Normal Mood Diagnostic/Tx/Re-eval Laboratory Results 08/17/19 08/17/19 22:22 22:55 WBC 7.9 RBC 4.26 Hgb 13.1 Hct 37.6 MCV 88.3 MCH 30.8 MCHC 34.8 RDW Std Deviation 45.7 H RDW Coeff of Caren 14.3 Plt Count 193 MPV 10.4 Immature Gran % (Auto) 1.400 H Neut % (Auto) 72.0 H Lymph % (Auto) 21.0 [place] % (Auto) 4.0 Eos % (Auto) 1.1 Baso % (Auto) 0.5 Absolute Neuts (auto) 5.7 Absolute Lymphs (auto) 1.66 Nucleated RBC % 0 Urine Color Yellow Urine Clarity Sl. Cloudy Urine pH 7.0 Ur Specific [place] 1.010 Urine Protein 15 H Urine Glucose (UA) Normal Urine Ketones 5 H Urine Occult Blood 150 H Urine Nitrite Negative Urine Bilirubin Negative Urine Urobilinogen 4 H Ur Leukocyte Esterase 25 H Urine is unremarkable. White count and H&H are normal. - Medical Decision Making Since patient complains of fever will obtain blood work and will perform pelvic exam. ED Disposition - Plan for ED Patient: Disposition: Home or Assisted Living Diagnosis: Removal Mirena device, Pelvic cramping pain, Vaginal bleeding Instructions: Levonorgestrel Vaginal insert Referrals: Kurt Brizuela MD [Primary Care Provider] - Additional Instructions: Dr. Renee Manuel's office will contact you for follow-up. I spoke with her nurse practitioner Kelly Gar.
[2019-08-17 22:44] LABS: Absolute Lymphocyte Count 1.66 X10^3/uL (0.83-4.51); Absolute Neutrophil Count 5.7 X10^3/uL (2.0-7.7); Basophil# 0.04 X10^3/uL; Basophil% 0.5 % (0-1); Eosinophil# 0.09 X10^3/uL; Eosinophils% 1.1 % (0-5); Hematocrit 37.6 % (37-47); Hemoglobin 13.1 g/dL (12.0-15.0); Lymphocyte # 1.66 X10^3/ul (4.0); Mean Corp Hgb Conc 34.8 g/dL (32-36); Mean Corpuscular Hgb 30.8 pg (27.0-32.0); Mean Corpuscular Volume 88.3 fL (81-99); Mean Platelet Vol. 10.4 fl (6.2-12.0); Monocyte# 0.32 X10^3/uL; NRBC Flagged by Analyzer 0 % (0-5); Neutrophil # 5.69 X10^3/uL (2.7-7.7); Platelet Count 193 K/mm3 (150-450); RBC Distribution Width CV 14.3 % (11.6-14.6); RBC Distribution Width SD 45.7 fl (35.1-43.9); Red Blood Count 4.26 M/mm3 (4.2-5.4); White Blood Count 7.9 K/mm3 (4.4-11.0)
[2019-08-17 23:06] LABS: Color, Urine Yellow (Yellow); Glucose, Dipstick Normal (Normal); Ketone-Dipstick 5 mg/dl (Negative); Leukocyte Esterase-Dipstick 25 /ul (Negative); Nitrite-Dipstick Negative (Negative); Occult Blood-Urine 150 /ul (Negative); Protein-Dipstick 15 mg/dl (Negative); Urine Bilirubin Dipstick Negative (Negative); Urine Clarity Sl. Cloudy (Clear); Urine Urobilinogen 4 mg/dl (Normal)
== END 2019-08-17 23:33 | disposition home or self-care (01) ==
PROVIDERS: Emergency Provider Emergency Medicine; Family Provider Family Medicine; PCP Family Medicine
DX: Z30.432 Encounter for removal of intrauterine contraceptive device (principal); R10.2 Pelvic and perineal pain; N93.9 Abnormal uterine and vaginal bleeding, unspecified; I10 Essential (primary) hypertension; E11.9 Type 2 diabetes mellitus without complications; Z79.84 Long term (current) use of oral hypoglycemic drugs; Z79.899 Other long term (current) drug therapy; Z87.891 Personal history of nicotine dependence
CPT/HCPCS: 58301; 81002; 85025; 96374; 96375; 99284; A4216; J2405

== ENCOUNTER 2019-10-08 17:11 | Emergency (ER) | payer OTHER, MEDICARE, SELFPAY ==
[2019-10-08 17:12] VITALS: BP 157/103; PULSE 86; RESP 16; TEMP 36.9; O2SAT 100; BMI 35.4
[2019-10-08 18:15] LABS: Bacteria 0 SEEN /hpf (None Seen); Mucous, Urine 0 SEEN /hpf (<or=2+); White Blood Cells 0 SEEN /hpf (0-5)
[2019-10-08 18:17] LABS: Absolute Lymphocyte Count 2.03 X10^3/uL (0.83-4.51); Absolute Neutrophil Count 4.7 X10^3/uL (2.0-7.7); Basophil# 0.04 X10^3/uL; Basophil% 0.5 % (0-1); Eosinophil# 0.15 X10^3/uL; Hematocrit 36.4 % (37-47); Hemoglobin 12.4 g/dL (12.0-15.0); Lymphocyte # 2.03 X10^3/ul (4.0); Lymphocyte % 26.7 % (19-41); Mean Corp Hgb Conc 34.1 g/dL (32-36); Mean Corpuscular Hgb 30.5 pg (27.0-32.0); Mean Corpuscular Volume 89.7 fL (81-99); Mean Platelet Vol. 10.8 fl (6.2-12.0); Monocyte% 6.6 % (0-10); NRBC Flagged by Analyzer 0 % (0-5); Neutrophil # 4.68 X10^3/uL (2.7-7.7); Neutrophil % 61.7 % (47-70); Platelet Count 193 K/mm3 (150-450); RBC Distribution Width CV 14.8 % (11.6-14.6); RBC Distribution Width SD 48.3 fl (35.1-43.9); Red Blood Count 4.06 M/mm3 (4.2-5.4); White Blood Count 7.6 K/mm3 (4.4-11.0)
[2019-10-08 18:36] LABS: Color, Urine Straw (Yellow); Glucose, Dipstick 100 mg/dl (Normal); Ketone-Dipstick Negative (Negative); Leukocyte Esterase-Dipstick Negative /ul (Negative); Nitrite-Dipstick Negative (Negative); Occult Blood-Urine 250 /ul (Negative); Protein-Dipstick Negative (Negative); Urine Bilirubin Dipstick Negative (Negative); Urine Clarity Sl. Cloudy (Clear); Urine Urobilinogen Normal (Normal); Urine pH 6.5 (5.0 - 8.0)
[2019-10-08 18:42] LABS: Internal QC Validated? YES +Cl - CLEAR BKGD; Pregnancy, Urine Negative Negative
[2019-10-08 18:50] LABS: Red Blood Cells-Urine 5-10 SEEN /hpf (0-5); Squamous Epithelial Cells - UA 0-5 SEEN /hpf (5-10)
--- NOTE | 2019-10-08 19:20 | ED.DEP ---
ED Disposition - Plan for ED Patient: Instructions: Menorrhagia Referrals: Kurt Brizuela MD [Primary Care Provider] -
--- NOTE | 2019-10-08 19:21 | ED.DEP ---
ED Disposition - Plan for ED Patient: Instructions: Menorrhagia Referrals: Kurt Brizuela MD [Primary Care Provider] -
[2019-10-08 19:36] VITALS: BP 120/75; PULSE 68; RESP 18; O2SAT 97
--- NOTE | 2019-10-24 09:47 | ED.DCSUM_ITS ---
- ER Visit Summary Date of Service: 10/08/19 Chief Complaint: Vaginal bleeding History of Present Illness: The patient is a 34 F who presents for heavy vaginal bleeding. Not currently on contraception. No significant pain or other related symptoms. Physical Examination: Exam chaperoned by A Corral RN. Mild bleeding at the cervix. No discharge. No masses or lesions. Skin normal. Alert and oriented. Test Results: CBC normal. UA showed blood, as expected. HCG negative. Emergency Department Course and Treatment: Workup and vitals are reassuring. Discussed with OBGYN who advised no further orders, but the patient can follow up in the office for medical management. Discharged home. Return for worsening bleeding, pain, or new issues. Treatment Plan: As above Disposition: Discharge Impression: 1. Menorrhagia Late entry 10.24.2019 at 0951 due to missing ED summary. This note was generated with [employer] dictation software. It may contain incorrect words, spelling, and punctuation that were not noted in review of the chart prior to signing ED Disposition - Plan for ED Patient: Disposition: Home or Assisted Living Instructions: Menorrhagia Referrals: Kurt Brizuela MD [Primary Care Provider] -
== END 2019-10-08 19:37 | disposition home or self-care (01) ==
LOC: ED 18:00
PROVIDERS: Emergency Provider Emergency Medicine; Family Provider Family Medicine; PCP Family Medicine
DX: N92.0 Excessive and frequent menstruation with regular cycle (principal); F32.9 Major depressive disorder, single episode, unspecified; F41.9 Anxiety disorder, unspecified; Z79.899 Other long term (current) drug therapy
CPT/HCPCS: 81001; 81025; 85025; 99283; A4216

== ENCOUNTER 2019-10-13 16:17 | Emergency (ER) | payer OTHER, MEDICARE, SELFPAY ==
[2019-10-13 16:19] VITALS: BP 142/100; PULSE 84; RESP 17; TEMP 37.1; O2SAT 98; BMI 36.1
--- NOTE | 2019-10-13 16:44 | ED.VISSUMM ---
- ER Visit Summary Date of Service: 10/13/19 Chief Complaint: Puncture wound History of Present Illness: The patient is a 34 F who presents with a puncture wound to her right second toe that occurred today while at work. Patient states she stepped on a miranda solid metallic needle that went through the sole of her shoe and into her right second toe. Patient describes her pain is stabbing. Patient states nothing makes it better or worse. Patient denies any paresthesias or weakness. Patient is unsure of her last tetanus shot. Physical Examination: Vital signs are stable. Patient is afebrile. Patient is in no acute distress. Skin is warm dry. There is a small puncture wound over the tip of the right second toe on the plantar surface. There is no active bleeding. There is no edema or erythema. There is no ecchymosis. There is no gapping of the wound margins. Sensation was intact light touch in all digits. Capillary refill was less than 2 seconds in all digits. Pedal pulses were equal bilaterally. There is full range of motion. Emergency Department Course and Treatment: The wound was cleaned and dressed with bacitracin dressing. Patient was given a tetanus booster. Patient was given a prescription for Cipro. Patient was instructed to follow-up with her primary care physician or [facility] in 5 to 7 days. Patient understood and was agreeable with the plan. All questions were answered. Disposition: Discharge home Impression: Puncture wound right second toe This note was generated with [employer] dictation software. It may contain incorrect words, spelling, and punctuation that were not noted in review of the chart prior to signing ED Disposition - Plan for ED Patient: Referrals: Kurt Brizuela MD [Primary Care Provider] -
[2019-10-13] MEDS: Diphth,Pertuss(Acell),Tet Vac 0.5 ML Vial IM (17:01)
[2019-10-13 17:23] VITALS: RESP 15
--- NOTE | 2019-10-13 17:24 | ED.RN ---
PT OBSERVED ON SHOT TIME FOR 15 MIN NO REACTION NOTED BY THIS NURSE.
== END 2019-10-13 17:24 | disposition home or self-care (01) ==
LOC: ED 16:58
PROVIDERS: Emergency Provider Emergency Medicine; Family Provider Family Medicine; PCP Family Medicine
DX: S91.134A Puncture wound without foreign body of right lesser toe(s) without damage to nail, initial encounter (principal); W26.8XXA Contact with other sharp object(s), not elsewhere classified, initial encounter; Y93.9 Activity, unspecified; Y92.9 Unspecified place or not applicable; Y99.0 Civilian activity done for income or pay; I10 Essential (primary) hypertension; F32.9 Major depressive disorder, single episode, unspecified
CPT/HCPCS: 90471; 90715; 99283

== ENCOUNTER 2019-11-03 19:48 | Emergency (ER) | payer OTHER, MEDICARE, SELFPAY ==
[2019-11-03 19:48] VITALS: BP 152/105; PULSE 94; RESP 16; TEMP 37.4; O2SAT 100; BMI 35.4
--- NOTE | 2019-11-03 20:11 | ED.VIS.GEN ---
History of Present Illness Chief Complaint: Sore Throat Informant: Patient Onset: Days Context: Gradual Onset Timing: Continuous Current Severity: Moderate Maximum Severity: Moderate Narrative: The patient presents with cough, myalgias, fever, shortness of breath. States her symptoms began about 3 days ago. States she has had a lot of recent sick contacts. She did get a flu shot this year. States she said for throat, upper back pain, nonproductive cough. She has been taking ibuprofen with some improvement. States it hurts to speak and swallow. She has no history of immunosuppression. She is otherwise been in her normal state of health. Prior similar symptoms: No Recent Illness/Hospitalization: No Past Medical History - Allergies and Home Meds Allergies/Adverse Reactions: Allergies codeine phosphate [From Tylenol-Codeine #3] Allergy (Verified 11/03/19 19:48) Swelling shellfish derived Allergy (Verified 11/03/19 19:48) Swelling venom-honey bee [bee venom (honey bee)] Allergy (Verified 11/03/19 19:48) Angioedema Primary Care Physician: Kurt Brizuela MD [Primary Care Provider] - Prior records reviewed: Yes Past Medical History: - Surgical History: - - C-sections Smoking Status: Never smoker Review of Systems General: Reports: Fever. Denies: Chills, Sweats Eyes: Denies: Visual changes - bilaterally, Diplopia ENT: Reports: Sore throat. Denies: Rhinorrhea Cardiovascular: Denies: Chest pain, Palpitations Respiratory: Reports: Cough. Denies: Dyspnea, Dyspnea on exertion Gastrointestinal: Denies: Abdominal pain, Nausea, Vomiting, Diarrhea, Melena, Hematochezia Genitourinary: Denies: Dysuria, Hematuria, Frequency Musculoskeletal: Reports: Myalgias. Denies: Back pain, Extremity Pain Skin: Denies: Rash, Wounds Neurological: Denies: Headache, Weakness, Numbness Physical Exam Vital Signs/Narrative: Vital Signs Temp Pulse Resp BP Pulse Ox 11/03/19 19:48 99.4 F H 94 16 152/105 H 100 Inital Vital Signs reviewed: Yes General: Well nourished, Well developed, No Acute Distress Head: Normocephalic, Atraumatic Eyes: Perrl, EOMI ENT: Moist mucous membranes, No rhinorrhea Neck: Supple, Nontender Cardiovascular: Regular rate, Regular rhythm, No murmurs Respiratory: No distress, CTA bilaterally, Chest nontender Abdomen: Soft, Nontender, Nondistended, Normal bowel sounds Back: Nontender, Normal Inspection Extremities: Nontender, No edema Skin: Normal color, No rash Neurological: Alert, Oriented x3, Cranial nerves II-XII grossly intact, Normal Strength, Normal Sensation Psychological: Normal affect, Normal Mood Diagnostic/Tx/Re-eval Chest X-Ray - ED: 2 View, Normal, Heart, Lungs, Mediastinum - Medical Decision Making The patient symptoms do seem consistent with an upper respiratory illness versus bronchitis. Influenza was obtained which was negative. The patient was given Decadron and Tylenol. She is now resting comfortably. X-ray shows no evidence of focal infiltrative process. She does have scant tonsillar exudate without evidence of abscess. I am going to treat her with prednisone and amoxicillin. She is afebrile. She has no hypoxia or tachypnea. I do feel that she is safe for outpatient therapy. She is comfortable with this plan of care. Impression 1. Exudative pharyngitis 2. Upper respiratory illness ED Disposition - Plan for ED Patient: Instructions: BRONCHITIS, Antiobiotic Treatment (Adult) Prescriptions: Amoxicillin 500 mg PO TID #30 tab Prescription Printed Prednisone [Deltasone] 40 mg PO DAILY #10 tab Prescription Printed Referrals: Kurt Brizuela MD [Primary Care Provider] -
[2019-11-03] MEDS: Acetaminophen 500 MG Tablet 1000 MG PO (20:25)
[2019-11-03] MEDS: dexAMETHasone 10 MG/ML Vial PO.IVFORM (20:25)
--- NOTE | 2019-11-03 20:25 | RAD_ITS ---
STUDY: X-RAY CHEST REASON FOR EXAM: Female, 34 years old. FEVER TECHNIQUE: PA and lateral chest. COMPARISON: 06/03/2017. FINDINGS: The lungs are clear and expanded. There is no demonstrated pleural abnormality. Normal size heart. Normal mediastinum and gil. Normal visualized pulmonary arteries. Normal visualized aortic arch and descending thoracic aorta. Normal visualized thoracic spine. Normal visualized ribs, clavicles, and shoulders. There is no demonstrated abnormality of the visualized soft tissue structures of the upper abdomen. RAD/Chest PA and Lateral IMPRESSION: Normal x-ray examination of the chest. Electronically Signed: Anika Olivo MD at 21:00 EST Tel , Service support ,
[2019-11-03 21:34] VITALS: BP 132/91; PULSE 87; RESP 16; O2SAT 99
== END 2019-11-03 21:35 | disposition home or self-care (01) ==
LOC: ED 20:30
PROVIDERS: Emergency Provider Emergency Medicine; PCP Family Medicine
DX: J02.9 Acute pharyngitis, unspecified (principal)
CPT/HCPCS: 71046; 87804; 99283

== ENCOUNTER 2019-12-10 10:50 | Emergency (ER) | payer OTHER, MEDICARE, SELFPAY ==
[2019-12-10 10:51] VITALS: BP 125/58; PULSE 113; RESP 18; RESP 20; TEMP 37.1; O2SAT 98; BMI 36.2
--- NOTE | 2019-12-10 11:12 | ED.VIS.GEN ---
History of Present Illness Chief Complaint: Seizure Narrative: Reportedly the patient had a possible seizure and was a rapid response here at the hospital. Nursing informs me that she was ANO x3. Past Medical History - Allergies and Home Meds Allergies/Adverse Reactions: Allergies codeine phosphate [From Tylenol-Codeine #3] Allergy (Verified 12/10/19 10:51) Swelling shellfish derived Allergy (Verified 12/10/19 10:51) Swelling venom-honey bee [bee venom (honey bee)] Allergy (Verified 12/10/19 10:51) Angioedema Primary Care Physician: Kurt Brizuela MD [Primary Care Provider] - Surgical History: - - C-sections Smoking Status: Never smoker Review of Systems ROS: Unable to Obtain Physical Exam Vital Signs/Narrative: Vital Signs Temp Pulse Resp BP Pulse Ox 12/10/19 10:51 98.8 F 113 H 20 H 125/58 H 98 Inital Vital Signs reviewed: Yes - Unable to perform physical exam as the patient does not present Diagnostic/Tx/Re-eval - Medical Decision Making I signed up to go see the patient after taking report from the rapid response team and the patient was no longer in the room and had subsequently reportedly decided to leave. Unfortunately she was not present in the room when I went to see her therefore I could not assess her or assess capacity or get her to sign AMA forms. ED Disposition - Plan for ED Patient: Disposition: Against Medical Advice Diagnosis: Seizure Referrals: Kurt Brizuela MD [Primary Care Provider] -
--- NOTE | 2019-12-10 11:14 | ED.RN ---
PT STATES SHE DOES NOT WANT TO BE SEEN BY ER DR. TRIED TO ENCOURAGE HER TO BE SEEN. PT STATES SHE IS NOT WORRIED ABOUT THE SEIZURES AND SHE WILL F/U WITH HER DR FOR THAT. PT IS HEADING TO HR TO DISCUSS THE ISSUE WITH HER JOB AND GETTING HER BELONGINGS. EXPLAINED THE SITUATION TO THE ER PHYSICIAN.
--- NOTE | 2019-12-10 11:35 | ED.RN ---
pt reports feeling worthless and the episode was a result of her blood pressure increasing and her anpression getting too high. pt described her anpression as being her anger, anxiety, and depression. pt stated that she did not want to be seen by the doctor.
== END 2019-12-10 11:15 | disposition left against medical advice (07) ==
PROVIDERS: Emergency Provider Emergency Medicine; PCP Family Medicine
DX: R56.9 Unspecified convulsions (principal); Z53.29 Procedure and treatment not carried out because of patient's decision for other reasons
CPT/HCPCS: 99281; 99282

== ENCOUNTER 2021-02-12 17:48 | Inpatient (IN) | payer OTHER, MEDICARE, SELFPAY ==
[2021-02-12] VITALS (8 sets, daily range): BP systolic 135–159; BP diastolic 67–100; PULSE 50–73; RESP 14–25; TEMP 36.3–37.6; O2SAT 97–100; BMI 36.3; BMI 35.8
--- NOTE | 2021-02-12 18:17 | EDS_ITS ---
HPI History of Present Illness Chief Complaint: Cough Detail of Chief Complaint: Cough, body aches, fever, headache, diarrhea, vomiting Informant: patient Onset/Context/Timing Onset: Days (5 days) Current Severity: Severe Maximum Severity: Severe Narrative Narrative: Patient presents with illness for the past 5 days. She reports low- grade fever, dry cough, chills and rigors. Patient complains of headache, vomiting, and diarrhea as well. She denies known exposure to Covid. She did not get the Covid vaccine. [facility] Medical History (Updated 02/12/21 @ 21:[address] Lidia Junior MD) HTN (hypertension) Seizure disorder Type 2 diabetes mellitus Home Medications lisinopril [Prinivil] 20 mg PO QHS 12/28/18 [History Last Taken Unknown] escitalopram oxalate 20 mg PO DAILY 01/31/19 [History Last Taken Unknown] albuterol sulfate 1 - 2 puff INHALATION Q6H PRN PRN 08/13/19 [History Last Taken 08/13/19] metformin 500 mg PO BID 08/13/19 [History Last Taken Unknown] trazodone 150 mg PO QHS 08/13/19 [History Last Taken Unknown] naproxen 500 mg PO BID PRN #20 tab 08/14/19 [Rx Last Taken Unknown] amoxicillin 500 mg PO TID #30 tab 11/03/19 [Rx Last Taken Unknown] prednisone 40 mg PO DAILY #10 tab 11/03/19 [Rx Last Taken Unknown] Allergy/AdvReac Type Severity Reaction Status Date / Time codeine phosphate Allergy Swelling Verified 02/12/21 17:49 [From Tylenol-Codeine #3] shellfish derived Allergy Swelling Verified 02/12/21 17:49 venom-honey bee Allergy Angioedema Verified 02/12/21 17:49 [bee venom (honey bee)] Surgical History (Updated 02/12/21 @ 19:02 by Clau Maddox RN) History of cholecystectomy History of cholecystectomy Social History (Updated 05/12/19 @ 11:11 by Maco SHI, PA) Smoking Status: Never smoker ROS ROS ED Constitutional Constitutional ED: Reports chills and fever(s) Eyes Eyes: Denies change in vision ENT ENT ED: Denies sore throat Cardiovascular Cardiovascular: Denies chest pain Respiratory/Chest Respiratory/Chest: Reports cough and dyspnea; Denies sputum Gastrointestinal Gastrointestinal: Reports diarrhea, nausea and vomiting; Denies abdominal pain Genitourinary Genitourinary ED: Reports dysuria Musculoskeletal Musculoskeletal: Reports myalgias; Denies back pain Integumentary Denies rash Neurologic Neurologic: Reports headache(s); Denies weakness Psychiatric Psychiatric: Denies anxiety or depression Endocrine Endocrinology: Denies polydipsia or polyuria Allergic/Immunologic Allergic/Immunologic ED: Denies urticaria EXAM Physical Exam Const Vital Signs: 02/12/21 17:50 02/12/21 19:01 02/12/21 19:32 Temperature 99.7 F H Temperature Source Temporal Pulse Rate 73 53 L Respiratory Rate 15 24 H Respiratory Effort Short of Breath Respiratory Depth Normal Respiratory Pattern Normal Blood Pressure 145/87 H 147/92 H Blood Pressure Mean 106 110 Pulse Ox 99 97 Oxygen Delivery Method Room Air Room Air Room Air 02/12/21 20:03 02/12/21 20:54 Temperature Temperature Source Pulse Rate 58 L 50 L Respiratory Rate 25 H 20 H Respiratory Effort Respiratory Depth Respiratory Pattern Blood Pressure 159/84 H 139/100 H Blood Pressure Mean 109 113 Pulse Ox 100 98 Oxygen Delivery Method Room Air Room Air Positive well nourished and well developed General Appearance ED: well developed HEENT Reports normocephalic and head/scalp atraumatic Eyes PERRL and EOMs intact bilaterally Neck supple Chest Wall inspection of chest normal and palpation of chest normal Resp normal respiratory effort and clear to auscultation bilaterally Cardio regular rate and regular rhythm GI non-tender Auscultation: hypoactive bowel sounds Palpation: soft Back/Spine no CVA tenderness Extremity normal to inspection Neuro oriented x3 and no sensory deficits noted Sensorium / Orientation: alert Psych mental status grossly normal Mood & Affect: anxious Skin no rashes or lesions noted MDM MDM MDM Narrative Medical decision making narrative: Patient was initially given morphine, Zofran. Lab work is obtained. Her Covid test is positive. Blood work is significant for hypokalemia with a potassium of 2.8. D-dimer is elevated at 1.53. Lactic acid is 2.1. Procalcitonin is normal. Portable chest x-ray is largely unremarkable. CTA of the chest reveals no evidence of PE. She does have bilateral groundglass opacities noted on CTA. Lab Data Attestation: I reviewed the patient's lab results. Labs: Laboratory Results - last 24 hr 02/12/21 02/12/21 02/12/21 18:35 18:35 18:35 WBC 4.0 L RBC 4.09 L Hgb 11.9 L Hct 35.3 L MCV 86.3 MCH 29.1 MCHC 33.7 RDW Std Deviation 46.5 H RDW Coeff of Caren 14.7 H Plt Count 190 MPV 10.2 Immature Gran % (Auto) 1.000 H Neut % (Auto) 61.1 Lymph % (Auto) 31.7 [place] % (Auto) 5.5 Eos % (Auto) 0.5 Baso % (Auto) 0.2 Absolute Neuts (auto) 2.5 Absolute Lymphs (auto) 1.27 Nucleated RBC % 0 D-Dimer Quant (PE/DVT) 1.53 H* Sodium 141 Potassium 2.8 L Chloride 105 Carbon Dioxide 30.0 Anion Gap 6 BUN 4 L Creatinine 0.96 Estim Creat Clear Calc 67.66 Est GFR (MDRD) Af Amer 85 Est GFR (MDRD) Non-Af 70 BUN/Creatinine Ratio 4.2 L Glucose 127 H Lactic Acid Calcium 8.6 Total Bilirubin 0.60 AST 21 ALT 24 Alkaline Phosphatase 67 Total Protein 6.9 Albumin 3.6 Globulin 3.3 Albumin/Globulin Ratio 1.1 Procalcitonin 02/12/21 02/12/21 18:35 18:35 WBC RBC Hgb Hct MCV MCH MCHC RDW Std Deviation RDW Coeff of Caren Plt Count MPV Immature Gran % (Auto) Neut % (Auto) Lymph % (Auto) [place] % (Auto) Eos % (Auto) Baso % (Auto) Absolute Neuts (auto) Absolute Lymphs (auto) Nucleated RBC % D-Dimer Quant (PE/DVT) Sodium Potassium Chloride Carbon Dioxide Anion Gap BUN Creatinine Estim Creat Clear Calc Est GFR (MDRD) Af Amer Est GFR (MDRD) Non-Af BUN/Creatinine Ratio Glucose Lactic Acid 2.1 H* Calcium Total Bilirubin AST ALT Alkaline Phosphatase Total Protein Albumin Globulin Albumin/Globulin Ratio Procalcitonin < 0.04 Radiography Chest X-Ray - ED: 1 View, Read by ED Physician, Normal, Heart, Lungs and Mediastinum Diagnostic Testing: Radiology Impression Chest X-Ray 02/12/21 18:42 IMPRESSION: No acute radiographic abnormalities. Electronically Signed: Kirk Pinto MD at 19:16 EDT Tel , Service support , Chest CTA 02/12/21 20:22 IMPRESSION: No acute pulmonary emboli to the segmental level. Bilateral groundglass and airspace consolidation most notable in the right lower lobe, concerning for pneumonia. Apparent chondroid matrix and increased vascularity of the right humeral head. One possible etiology is an enchondroma. Recommend dedicated right shoulder radiographs. Fatty liver. Electronically Signed: Kirk Pinto MD at 21:13 EDT Tel , Service support , EKG Initial EKG: Interpretation: Sinus Bradycardia (Sinus bradycardia at 57 bpm.) Treatment and Re-Evaluation Comments:: [place] it appears that she may be in atrial fibrillation. At other times it appears that she is in a sinus bradycardia with very small P waves. Twelve-lead EKG at this time reveals sinus bradycardia. This will continue to be monitored.On repeat evaluation patient continued to complain of significant headache. She was given Toradol, Reglan, Benadryl. Test results are discussed with her. alarm security or surveillance monitor does reveal bradycardic rhythm I will speak with hospitalist regarding admission primarily secondary to the patient's vomiting and unable to keep her meds down at home. She is given IV potassium replacement. Discharge Plan Dx/Rx/DC Orders Clinical Impression: COVID-19, Vomiting Disposition Disposition: Acute Care Hospital [facility]
--- NOTE | 2021-02-12 18:42 | RAD_ITS ---
INDICATION: cough EXAMINATION/TECHNIQUE: X-RAY - XR Chest 1 View COMPARISON: 11/03/2019. FINDINGS: The lungs are clear. The cardiomediastinal silhouette is unremarkable. No pleural effusion or pneumothorax. No acute osseous abnormalities. RAD/Chest 1 View (Portable) IMPRESSION: No acute radiographic abnormalities. Electronically Signed: Kirk Pinto MD at 19:16 EDT Tel , Service support ,
[2021-02-12] MEDS: Morphine 4 MG/ML Syringe IV (18:56)
[2021-02-12] MEDS: Ondansetron 4 MG/2 ML Vial IV (18:56)
[2021-02-12 18:57] LABS: Absolute Lymphocyte Count 1.27 X10^3/uL (0.83-4.51); Absolute Neutrophil Count 2.5 X10^3/uL (2.0-7.7); Basophil# 0.01 X10^3/uL; Basophil% 0.2 % (0-1); Eosinophil# 0.02 X10^3/uL; Eosinophils% 0.5 % (0-5); Hematocrit 35.3 % (37-47); Hemoglobin 11.9 g/dL (12.0-15.0); Lymphocyte # 1.27 X10^3/ul (0.83-4.51); Lymphocyte % 31.7 % (19-41); Mean Corp Hgb Conc 33.7 g/dL (32-36); Mean Corpuscular Hgb 29.1 pg (27.0-32.0); Mean Corpuscular Volume 86.3 fL (81-99); Mean Platelet Vol. 10.2 fl (6.2-12.0); Monocyte# 0.22 X10^3/uL; Monocyte% 5.5 % (0-10); NRBC Flagged by Analyzer 0 % (0-5); Neutrophil # 2.45 X10^3/uL (2.7-7.7); Neutrophil % 61.1 % (47-70); Platelet Count 190 K/mm3 (150-450); RBC Distribution Width CV 14.7 % (11.6-14.6); RBC Distribution Width SD 46.5 fl (35.1-43.9); Red Blood Count 4.09 M/mm3 (4.2-5.4)
[2021-02-12 19:36] LABS: ALB/GLOB Ratio 1.1 RATIO (0.9-2.4); AST(SGOT) 21 U/L (15-37); Alanine Aminotransfer ALT/SGPT 24 U/L (13-56); Albumin, Serum 3.6 g/dL (3.2-5.0); Alkaline Phosphatase 67 U/L (45-117); Anion Gap 6 (5-15); BUN 4 mg/dL (7-18); BUN/Creat Ratio 4.2 RATIO (10-20); Calcium,Total 8.6 mg/dL (8.5-10.1); Chloride 105 mmol/L (98-107); Creatinine, Serum 0.96 mg/dL (0.55-1.02); EST Glomerular Filtration Rate 70 mL/min (>60); Est Glom Filt Rate - Afr Amer 85 mL/min (>60); Estimated Creatinine Clearance 67.66 ml/min; Globulin 3.3 g/dL (2.2-4.2); Glucose 127 mg/dL (74-106); Potassium 2.8 mmol/L (3.5-5.1); Protein, Total 6.9 g/dL (6.4-8.2); Sodium Level 141 mmol/L (136-145)
[2021-02-12 19:41] LABS: D-Dimer Quantitative (DVT/PE) 1.53 FEU/ug/m (0.27-0.49)
[2021-02-12 19:52] LABS: Lactic Acid 2.1 mmol/L (0.4-1.9)
[2021-02-12] MEDS: Metoclopramide 10 MG/2 ML Vial 5 MG IV (19:54)
[2021-02-12] MEDS: Ketorolac 30 MG/ML Syringe IV (19:57)
[2021-02-12] MEDS: DiphenhydrAMINE 50 MG/ML Syringe 12.5 MG IV (19:59)
--- NOTE | 2021-02-12 20:22 | CT_ITS ---
INDICATION: pulmonary embolism EXAMINATION: CTA Chest WO/W Contrast Injection TECHNIQUE: Helically acquired images were obtained of the chest following IV contrast. A radiation dose optimization technique was used for this scan. 3-D processing processing images including MIPS were reviewed. IV Contrast dosage and agent: 100 cc [id number] COMPARISON: None. FINDINGS: Lungs: Bilateral groundglass and airspace consolidation, most notable in the right lower lobe. Mediastinum: The cardiomediastinal silhouette is not enlarged. No mediastinal, hilar or axillary adenopathy. The thoracic aorta is unremarkable. No obvious filling defect seen within the visualized pulmonary arteries. Pleura: Unremarkable Bones/Soft tissues: Apparent chondroid matrix and increased vascularity of the right humeral head. Upper abdomen: Fatty liver. CT/CTA Chest W/WO Contrast IMPRESSION: No acute pulmonary emboli to the segmental level. Bilateral groundglass and airspace consolidation most notable in the right lower lobe, concerning for pneumonia. Apparent chondroid matrix and increased vascularity of the right humeral head. One possible etiology is an enchondroma. Recommend dedicated right shoulder radiographs. Fatty liver. Electronically Signed: Kirk Pinto MD at 21:13 EDT Tel , Service support ,
[2021-02-12 20:33] LABS: Procalcitonin < 0.04 ng/mL (0.00-0.09)
--- NOTE | 2021-02-12 21:25 | EKG12_ITS ---
Test Reason : DYSRYTHMIA Blood Pressure : / mmHG Vent. Rate : 057 BPM Atrial Rate : 057 BPM P-R Int : 116 ms QRS Dur : 076 ms QT Int : 450 ms P-R-T Axes : -27 -03 009 degrees QTc Int : 438 ms Sinus bradycardia Cannot rule out Anterior infarct , age undetermined Abnormal ECG Confirmed by KRISHNA JORDAN, ESCOBAR ([id number]), newspaper editor RIANNA AKBAR ([id number]) on 02/14/2021 1:16:27 PM Referred By: KENIA Confirmed By:ESCOBAR KELLER MD
[2021-02-12 21:37] LABS: Internal QC Validated? YES +Cl - CLEAR BKGD; Pregnancy, Serum, hCG Quali. NEGATIVE Negative
[2021-02-12 22:51] LABS: Reflex Lactate? Y
--- NOTE | 2021-02-12 22:52 | PCM.HP.STD ---
HPI - General General Date of Admission: 02/12/21 Chief Complaint: Malaise HPI Narrative REINALDO WARREN, is a 35 F with a significant history of hypertension; seizure disorder; type 2 diabetes; and depression who presents to the emergency department with 1 week history of progressively worsening malaise. Associated with her symptoms is flulike symptoms of body aches; headaches; dyspnea on exertion; dry cough; mild wheezes; mild chest pain; diarrhea; nausea and vomiting; and poor appetite. Further she reports mild dysgeusia. She denies anosmia. [facility] Medical History HTN (hypertension) Seizure disorder Type 2 diabetes mellitus Home Medications lisinopril [Prinivil] 20 mg PO QHS 12/28/18 [History Last Taken Unknown] escitalopram oxalate 20 mg PO DAILY 01/31/19 [History Last Taken Unknown] albuterol sulfate 1 - 2 puff INHALATION Q6H PRN PRN 08/13/19 [History Last Taken 08/13/19] metformin 500 mg PO BID 08/13/19 [History Last Taken Unknown] trazodone 150 mg PO QHS 08/13/19 [History Last Taken Unknown] Allergy/AdvReac Type Severity Reaction Status Date / Time codeine phosphate Allergy Swelling Verified 02/12/21 17:49 [From Tylenol-Codeine #3] shellfish derived Allergy Swelling Verified 02/12/21 17:49 venom-honey bee Allergy Angioedema Verified 02/12/21 17:49 [bee venom (honey bee)] Family History Other Diabetes Heart disease Surgical History History of cholecystectomy History of cholecystectomy Social History Smoking Status: Never smoker ROS ROS Narrative 12 point review of system is negative except as stated in HPI. Vital Signs Vital Signs Vital Signs: 02/12/21 17:50 02/12/21 19:01 02/12/21 19:32 Temperature 99.7 F H Temperature Source Temporal Pulse Rate 73 53 L Respiratory Rate 15 24 H Respiratory Effort Short of Breath Respiratory Depth Normal Respiratory Pattern Normal Blood Pressure 145/87 H 147/92 H Blood Pressure Mean 106 110 Pulse Ox 99 97 Oxygen Delivery Method Room Air Room Air Room Air 02/12/21 20:03 02/12/21 20:54 Temperature Temperature Source Pulse Rate 58 L 50 L Respiratory Rate 25 H 20 H Respiratory Effort Respiratory Depth Respiratory Pattern Blood Pressure 159/84 H 139/100 H Blood Pressure Mean 109 113 Pulse Ox 100 98 Oxygen Delivery Method Room Air Room Air Physical Exam Narrative Alert and oriented x3 Nontraumatic; normocephalic Lung clear to auscultate Bradycardia; heart sounds S1-S2. No murmur, gallop or rubs. Abdomen bowel sounds present soft, nontender nondistended Extremity without edema cyanosis or clubbing. Lab / Micro Data Result Diagrams: 02/12/21 18:35 02/12/21 18:35 Labs: Laboratory Results - last 24 hr 02/12/21 02/12/21 02/12/21 18:35 18:35 18:35 WBC 4.0 L RBC 4.09 L Hgb 11.9 L Hct 35.3 L MCV 86.3 MCH 29.1 MCHC 33.7 RDW Std Deviation 46.5 H RDW Coeff of Caren 14.7 H Plt Count 190 MPV 10.2 Immature Gran % (Auto) 1.000 H Neut % (Auto) 61.1 Lymph % (Auto) 31.7 [place] % (Auto) 5.5 Eos % (Auto) 0.5 Baso % (Auto) 0.2 Absolute Neuts (auto) 2.5 Absolute Lymphs (auto) 1.27 Nucleated RBC % 0 D-Dimer Quant (PE/DVT) 1.53 H* Sodium 141 Potassium 2.8 L Chloride 105 Carbon Dioxide 30.0 Anion Gap 6 BUN 4 L Creatinine 0.96 Estim Creat Clear Calc 67.66 Est GFR (MDRD) Af Amer 85 Est GFR (MDRD) Non-Af 70 BUN/Creatinine Ratio 4.2 L Glucose 127 H Lactic Acid Calcium 8.6 Total Bilirubin 0.60 AST 21 ALT 24 Alkaline Phosphatase 67 Total Protein 6.9 Albumin 3.6 Globulin 3.3 Albumin/Globulin Ratio 1.1 Procalcitonin Serum , Qual 02/12/21 02/12/21 02/12/21 18:35 18:35 18:35 WBC RBC Hgb Hct MCV MCH MCHC RDW Std Deviation RDW Coeff of Caren Plt Count MPV Immature Gran % (Auto) Neut % (Auto) Lymph % (Auto) [place] % (Auto) Eos % (Auto) Baso % (Auto) Absolute Neuts (auto) Absolute Lymphs (auto) Nucleated RBC % D-Dimer Quant (PE/DVT) Sodium Potassium Chloride Carbon Dioxide Anion Gap BUN Creatinine Estim Creat Clear Calc Est GFR (MDRD) Af Amer Est GFR (MDRD) Non-Af BUN/Creatinine Ratio Glucose Lactic Acid 2.1 H* Calcium Total Bilirubin AST ALT Alkaline Phosphatase Total Protein Albumin Globulin Albumin/Globulin Ratio Procalcitonin < 0.04 Serum , Qual NEGATIVE Micro: Microbiology 02/12/21 18:40 SARS-CoV-2 Antigen (Rapid) - Final Nasal Secretion SARS-CoV-2 (COVID 19) Radiology Impression Chest X-Ray 02/12/21 18:42 IMPRESSION: No acute radiographic abnormalities. Electronically Signed: Kikr Pinto MD at 19:16 EDT Tel , Service support , Chest CTA 02/12/21 20:22 IMPRESSION: No acute pulmonary emboli to the segmental level. Bilateral groundglass and airspace consolidation most notable in the right lower lobe, concerning for pneumonia. Apparent chondroid matrix and increased vascularity of the right humeral head. One possible etiology is an enchondroma. Recommend dedicated right shoulder radiographs. Fatty liver. Electronically Signed: Kirk Pinto MD at 21:13 EDT Tel , Service support , Assessment & Plan Assessment/Plan (1) COVID-19: (2) Shoulder mass: (3) Hypokalemia: (4) Sinus bradycardia: PLAN: Covid-19 Infection Positive coronavirus test on presentation Impression of chest x-ray by radiologist: No acute radiographic abnormalities. Actual chest x-ray image was independently interpreted. I agree with radiologist interpretation. A chest CTA with no acute PE. Bilateral groundglass and airspace consolidation most notable in the right lower lobe. Levaquin was ordered. However procalcitonin was unremarkable. Will discontinue Levaquin. Patient is not hypoxic. Oxygen saturation is more than 94%. Will not start remdesivir. We will trend CBC and CMP. Of note patient has hypokalemia Tylenol for fever Since patient has nausea and vomiting clear liquid diet ordered. Mucinex ordered Hypokalemia Likely secondary to nausea and vomiting. Lactated Ringer's with 40 potassium going to 75 mL's per hour. Potassium 40 mEq IV ordered. We will check magnesium. We will trend CMP. Sinus bradycardia Heart rate around 54. EKG tracing was reviewed. EKG tracing showed Q waves in V1 to V3 as well as Q waves in leads III and aVF. We will put on MedSurLightswitch unit on telemetry. Potassium replacement as above. Shoulder mass Chest CTA showed apparent chondroid matrix and increased vascularity of the right humeral head. Radiologist recommended dedicated right shoulder radiographs. Patient complains of right shoulder pain for about 6 months. Discussed with patient that after covid symptoms has resolved as she showed [facility] PCP for possible shoulder radiographs. Tylenol as needed for pain. DVT prophylaxis Subcutaneous Lovenox ordered per COVID-19 protocol.. Multi Select Codes Visit Charges Visit Charges: 97783 Init Hosp L3
[2021-02-12] MEDS: dexAMETHasone 10 MG/ML Vial 6 MG IV (22:53)
[2021-02-12] MEDS: levoFLOXacin IV 750 MG/150 ML BAG 100 MG IV (22:55)
[2021-02-13] VITALS (9 sets, daily range): BP systolic 134–152; BP diastolic 77–81; PULSE 43–85; RESP 14–18; TEMP 36.2–37.3; O2SAT 96–100
[2021-02-13] MEDS: guaiFENesin 1,200 MG Tablet 1200 MG PO ×3 (00:18→21:30)
[2021-02-13] MEDS: Enoxaparin 30 MG/0.3 ML Syringe SC ×3 (00:21→21:28)
[2021-02-13] MEDS: Potassium Chloride 10mEq/100mL 10 MEQ/100 ML IV.SOLN. 100 MEQ IV BOLUS ×3 (00:31→02:40)
[2021-02-13 00:38] LABS: Lactic Acid 1.2 mmol/L (0.4-1.9)
[2021-02-13 00:46] LABS: Bedside Glucose 124 mg/dL (70-110)
[2021-02-13] MEDS: Ketorolac 15 MG/ML Vial IV ×3 (03:26→21:29)
[2021-02-13] MEDS: Potassium Chloride Oral Tablet 20 MEQ 40 MEQ PO (03:28)
[2021-02-13 05:26] LABS: Bacteria 0 SEEN /hpf (None Seen); Mucous, Urine 0 SEEN /hpf (<or=2+); Red Blood Cells-Urine 0 SEEN /hpf (0-5); White Blood Cells 0 SEEN /hpf (0-5)
[2021-02-13 05:27] LABS: Color, Urine Yellow (Yellow); Glucose, Dipstick 100 mg/dl (Normal); Ketone-Dipstick Negative (Negative); Leukocyte Esterase-Dipstick Negative /ul (Negative); Nitrite-Dipstick Negative (Negative); Occult Blood-Urine Negative /ul (Negative); Protein-Dipstick 15 mg/dl (Negative); Urine Bilirubin Dipstick Negative (Negative); Urine Clarity Clear (Clear); Urine Urobilinogen Normal (Normal); Urine pH 6.5 (5.0 - 8.0)
[2021-02-13 05:33] LABS: Squamous Epithelial Cells - UA 0-5 SEEN /hpf (5-10)
[2021-02-13 06:31] LABS: Absolute Lymphocyte Count 0.52 X10^3/uL (0.83-4.51); Absolute Neutrophil Count 3.4 X10^3/uL (2.0-7.7); Basophil# 0.01 X10^3/uL; Basophil% 0.2 % (0-1); Hematocrit 33.8 % (37-47); Hemoglobin 11.3 g/dL (12.0-15.0); Lymphocyte # 0.52 X10^3/ul (0.83-4.51); Lymphocyte % 12.8 % (19-41); Mean Corp Hgb Conc 33.4 g/dL (32-36); Mean Corpuscular Hgb 29.1 pg (27.0-32.0); Mean Corpuscular Volume 87.1 fL (81-99); Mean Platelet Vol. 10.1 fl (6.2-12.0); Monocyte# 0.07 X10^3/uL; Monocyte% 1.7 % (0-10); NRBC Flagged by Analyzer 0 % (0-5); Neutrophil # 3.42 X10^3/uL (2.7-7.7); Neutrophil % 84.1 % (47-70); POSITIVE DIFFERENTIAL YES; Platelet Count 185 K/mm3 (150-450); RBC Distribution Width CV 14.6 % (11.6-14.6); RBC Distribution Width SD 46.3 fl (35.1-43.9); Red Blood Count 3.88 M/mm3 (4.2-5.4); White Blood Count 4.1 K/mm3 (4.4-11.0)
[2021-02-13 06:33] LABS: Differential Indicated SCAN CRITERIA MET
[2021-02-13 06:48] LABS: AST(SGOT) 22 U/L (15-37); Alanine Aminotransfer ALT/SGPT 25 U/L (13-56); Albumin, Serum 3.3 g/dL (3.2-5.0); Alkaline Phosphatase 60 U/L (45-117); Anion Gap 6 (5-15); BUN 6 mg/dL (7-18); BUN/Creat Ratio 7.1 RATIO (10-20); Calcium,Total 8.4 mg/dL (8.5-10.1); Chloride 114 mmol/L (98-107); Creatinine, Serum 0.85 mg/dL (0.55-1.02); EST Glomerular Filtration Rate 81 mL/min (>60); Est Glom Filt Rate - Afr Amer 98 mL/min (>60); Estimated Creatinine Clearance 76.42 ml/min; Globulin 3.3 g/dL (2.2-4.2); Glucose 162 mg/dL (74-106); Potassium 4.3 mmol/L (3.5-5.1); Protein, Total 6.6 g/dL (6.4-8.2); Sodium Level 145 mmol/L (136-145)
[2021-02-13] MEDS: dexAMETHasone 10 MG/ML Vial 6 MG IV (08:32)
[2021-02-13] MEDS: Escitalopram Oxalate 20 MG Tablet PO (08:32)
[2021-02-13] MEDS: Ondansetron 4 MG/2 ML Vial IV (08:39)
--- NOTE | 2021-02-13 10:54 | PN.HOSP_ITS ---
Subjective Subjective: Patient seen and examined. She was admitted for general malaise and has been managed for acute COVID-19 infection. She complains of generalized body aches and feeling weak. She denies shortness of breath, fever chills nausea vomiting. Review of symptoms otherwise negative. She has remained hemodynamically stable; though she has been mildly bradycardic, this has been asymptomatic. Objective Data Objective Data Vital Signs: Vital Signs Temp Pulse Resp BP Pulse Ox 97.2 F L 47 L 14 148/80 H 96 02/13/21 06:00 02/13/21 07:12 02/13/21 06:00 02/13/21 06:00 02/13/21 06:55 Oxygen Delivery Method Room Air Weight: 202 lb 6.15 oz Body Mass Index (BMI) 35.8 Finger Stick Blood Glucose 162 Intake & Output: Intake and Output for Last 24 Hours 02/11/21 02/12/21 02/13/21 23:59 23:59 23:59 Intake Total 1070 / 1070 Output Total 650 / 650 Balance 420 / 420 Lab / Micro Data Result Diagrams: 02/13/21 06:25 02/13/21 06:25 Labs: Laboratory Results - last 24 hr 02/12/21 02/12/21 02/12/21 18:35 18:35 18:35 WBC 4.0 L RBC 4.09 L Hgb 11.9 L Hct 35.3 L MCV 86.3 MCH 29.1 MCHC 33.7 RDW Std Deviation 46.5 H RDW Coeff of Caren 14.7 H Plt Count 190 MPV 10.2 Immature Gran % (Auto) 1.000 H Neut % (Auto) 61.1 Lymph % (Auto) 31.7 [place] % (Auto) 5.5 Eos % (Auto) 0.5 Baso % (Auto) 0.2 Absolute Neuts (auto) 2.5 Absolute Lymphs (auto) 1.27 Nucleated RBC % 0 Diff Path Review D-Dimer Quant (PE/DVT) 1.53 H* Sodium 141 Potassium 2.8 L Chloride 105 Carbon Dioxide 30.0 Anion Gap 6 BUN 4 L Creatinine 0.96 Estim Creat Clear Calc 67.66 Est GFR (MDRD) Af Amer 85 Est GFR (MDRD) Non-Af 70 BUN/Creatinine Ratio 4.2 L Glucose 127 H Lactic Acid Calcium 8.6 Magnesium Total Bilirubin 0.60 AST 21 ALT 24 Alkaline Phosphatase 67 Total Protein 6.9 Albumin 3.6 Globulin 3.3 Albumin/Globulin Ratio 1.1 Procalcitonin Serum , Qual Urine Color Urine Clarity Urine pH Ur Specific [place] Urine Protein Urine Glucose (UA) Urine Ketones Urine Occult Blood Urine Nitrite Urine Bilirubin Urine Urobilinogen Ur Leukocyte Esterase Urine RBC Urine WBC Ur Squamous Epith Cells Urine Bacteria Urine Mucus POC Glucose 02/12/21 02/12/21 02/12/21 18:35 18:35 18:35 WBC RBC Hgb Hct MCV MCH MCHC RDW Std Deviation RDW Coeff of Caren Plt Count MPV Immature Gran % (Auto) Neut % (Auto) Lymph % (Auto) [place] % (Auto) Eos % (Auto) Baso % (Auto) Absolute Neuts (auto) Absolute Lymphs (auto) Nucleated RBC % Diff Path Review D-Dimer Quant (PE/DVT) Sodium Potassium Chloride Carbon Dioxide Anion Gap BUN Creatinine Estim Creat Clear Calc Est GFR (MDRD) Af Amer Est GFR (MDRD) Non-Af BUN/Creatinine Ratio Glucose Lactic Acid 2.1 H* Calcium Magnesium Total Bilirubin AST ALT Alkaline Phosphatase Total Protein Albumin Globulin Albumin/Globulin Ratio Procalcitonin < 0.04 Serum , Qual NEGATIVE Urine Color Urine Clarity Urine pH Ur Specific [place] Urine Protein Urine Glucose (UA) Urine Ketones Urine Occult Blood Urine Nitrite Urine Bilirubin Urine Urobilinogen Ur Leukocyte Esterase Urine RBC Urine WBC Ur Squamous Epith Cells Urine Bacteria Urine Mucus POC Glucose 02/12/21 02/12/21 02/13/21 18:35 23:49 00:01 WBC RBC Hgb Hct MCV MCH MCHC RDW Std Deviation RDW Coeff of Caren Plt Count MPV Immature Gran % (Auto) Neut % (Auto) Lymph % (Auto) [place] % (Auto) Eos % (Auto) Baso % (Auto) Absolute Neuts (auto) Absolute Lymphs (auto) Nucleated RBC % Diff Path Review D-Dimer Quant (PE/DVT) Sodium Potassium Chloride Carbon Dioxide Anion Gap BUN Creatinine Estim Creat Clear Calc Est GFR (MDRD) Af Amer Est GFR (MDRD) Non-Af BUN/Creatinine Ratio Glucose Lactic Acid 1.2 Calcium Magnesium 2.0 Total Bilirubin AST ALT Alkaline Phosphatase Total Protein Albumin Globulin Albumin/Globulin Ratio Procalcitonin Serum , Qual Urine Color Urine Clarity Urine pH Ur Specific [place] Urine Protein Urine Glucose (UA) Urine Ketones Urine Occult Blood Urine Nitrite Urine Bilirubin Urine Urobilinogen Ur Leukocyte Esterase Urine RBC Urine WBC Ur Squamous Epith Cells Urine Bacteria Urine Mucus POC Glucose 124 H 02/13/21 02/13/21 02/13/21 05:15 06:25 06:25 WBC 4.1 L RBC 3.88 L Hgb 11.3 L Hct 33.8 L MCV 87.1 MCH 29.1 MCHC 33.4 RDW Std Deviation 46.3 H RDW Coeff of Caren 14.6 Plt Count 185 MPV 10.1 Immature Gran % (Auto) 1.200 H Neut % (Auto) 84.1 H Lymph % (Auto) 12.8 L [place] % (Auto) 1.7 Eos % (Auto) 0.0 Baso % (Auto) 0.2 Absolute Neuts (auto) 3.4 Absolute Lymphs (auto) 0.52 L Nucleated RBC % 0 Diff Path Review May foll D-Dimer Quant (PE/DVT) Sodium 145 Potassium 4.3 Chloride 114 H Carbon Dioxide 25.0 Anion Gap 6 BUN 6 L Creatinine 0.85 Estim Creat Clear Calc 76.42 Est GFR (MDRD) Af Amer 98 Est GFR (MDRD) Non-Af 81 BUN/Creatinine Ratio 7.1 L Glucose 162 H Lactic Acid Calcium 8.4 L Magnesium Total Bilirubin 0.80 AST 22 ALT 25 Alkaline Phosphatase 60 Total Protein 6.6 Albumin 3.3 Globulin 3.3 Albumin/Globulin Ratio 1.0 Procalcitonin Serum , Qual Urine Color Yellow Urine Clarity Clear Urine pH 6.5 Ur Specific [place] 1.010 Urine Protein 15 H Urine Glucose (UA) 100 H Urine Ketones Negative Urine Occult Blood Negative Urine Nitrite Negative Urine Bilirubin Negative Urine Urobilinogen Normal Ur Leukocyte Esterase Negative Urine RBC 0 SEEN Urine WBC 0 SEEN Ur Squamous Epith Cells 0-5 SEEN Urine Bacteria 0 SEEN Urine Mucus 0 SEEN POC Glucose Micro: Microbiology 02/13/21 05:15 Urine, Clean Catch Legionella Antigen - Final 02/13/21 05:15 Urine, Clean Catch Streptococcus pneumoniae Antigen (M - Fi nal 02/12/21 18:40 Nasal Secretion SARS-CoV-2 Antigen (Rapid) - Final SARS-CoV-2 (COVID 19) Radiography Diagnostic Testing: Radiology Impression Chest X-Ray 02/12/21 18:42 IMPRESSION: No acute radiographic abnormalities. Electronically Signed: Kirk Pinto MD at 19:16 EDT Tel , Service support , Chest CTA 02/12/21 20:22 IMPRESSION: No acute pulmonary emboli to the segmental level. Bilateral groundglass and airspace consolidation most notable in the right lower lobe, concerning for pneumonia. Apparent chondroid matrix and increased vascularity of the right humeral head. One possible etiology is an enchondroma. Recommend dedicated right shoulder radiographs. Fatty liver. Electronically Signed: Kirk Pinto MD at 21:13 EDT Tel , Service support , Physical Exam Const alert, oriented x3 and no apparent distress Orientation / Consciousness: lethargic Exam Limitations: no limitations Nutritional Appearance: obese HEENT Head and Scalp: normocephalic Eyes PERRL, EOMs intact bilaterally and conjunctivae normal Resp normal respiratory effort, no retractions, no use of accessory muscles and clear to auscultation bilaterally Cardio regular rate, regular rhythm, S1 normal heart sound, S2 normal heart sound and no murmurs GI normal to inspection, nondistended, normoactive bowel sounds, soft to palpation, non-tender and non-distended Extremity normal to inspection, full ROM and no clubbing, cyanosis or edema Skin no rashes or lesions noted Neuro oriented x3 Sensorium / Orientation: awake and alert Psych Psych Narrative: FLAT AFFECT Assessment & Plan Assessment/Plan (1) COVID-19: (2) Sinus bradycardia: (3) Hypokalemia: PLAN: #Acute covid 19 infection * currently on room air. Feels lethargic, but otherwise fine * on decadrone. * not started on remdesivir as she is on room air. * tylenol fo rfever and pain * Chest CT showed no PE< but showed bilateral groundglass airspace consolidation most notable in the right lower lobe * #Hypokalemia: resolved #Sinus bradycardia * HR has been in the 40s and 50s. asymptomatic * will monitor * check TSH * #Right shoulder mass * chest CTA did show an apparent chondroid matrix and increased vascularity of the right humeral head. Patient does complaint of right shoulder pain for 6 months * will get xrays of the right shoulder to further evaluate * DVT prophylaxis: lovenox. Visit Charges Inpatient E&M: 79866 Subs Hosp L2
--- NOTE | 2021-02-13 11:06 | RAD_ITS ---
STUDY: X-RAY - RIGHT SHOULDER REASON FOR EXAM: Female, 35 years old. right shoulder pain TECHNIQUE: 3 view(s) of the shoulder. COMPARISON: None. FINDINGS: Normal glenohumeral articulation. Normal acromioclavicular joint. Normal acromion. Normal humeral head and visualized proximal humerus. The soft tissue structures are unremarkable. Normal visualized pulmonary apex. RAD/Shoulder min 2 Views IMPRESSION: Normal x-ray examination of the shoulder. Electronically Signed: Herson Mcdonald MD ([place]) at 16:24 EDT , Service support ,
[2021-02-13 11:30] LABS: Bedside Glucose 146 mg/dL (70-110)
[2021-02-13] MEDS: Insulin Lispro 100 UNIT/ML INSULN.PEN SC (16:05)
[2021-02-13 16:11] LABS: Bedside Glucose 170 mg/dL (70-110)
[2021-02-13] MEDS: traZODone 100 MG Tablet 150 MG PO (21:30)
[2021-02-13] MEDS: Lisinopril 20 MG Tablet PO (21:30)
[2021-02-13 21:45] LABS: Bedside Glucose 140 mg/dL (70-110)
[2021-02-13] MEDS: Lactated Ringers 1,000 ML 75 ML IV (23:02)
[2021-02-14] VITALS (7 sets, daily range): BP systolic 143–148; BP diastolic 79–98; PULSE 56–79; RESP 16–18; TEMP 36.3–36.6; O2SAT 100
[2021-02-14] MEDS: Escitalopram Oxalate 20 MG Tablet PO (08:31)
[2021-02-14] MEDS: Enoxaparin 30 MG/0.3 ML Syringe SC (08:31)
[2021-02-14] MEDS: guaiFENesin 1,200 MG Tablet 1200 MG PO (08:31)
[2021-02-14] MEDS: dexAMETHasone 10 MG/ML Vial 6 MG IV (08:31)
--- NOTE | 2021-02-14 09:28 | PCM.DC.SUM ---
Providers Date of Admission: 02/12/21 Primary Care Physician: Dr. Kurt Brizuela MD Reason For Visit: SARS COV-2 Diagnosis Discharge Diagnosis (1) COVID-19: Status: Acute Code(s): U07.1 - COVID-19 (2) Sinus bradycardia: Status: Resolved Code(s): R00.1 - Bradycardia, unspecified (3) Hypokalemia: Status: Resolved Code(s): E87.6 - Hypokalemia Medications at Discharge Home Medications lisinopril [Prinivil] 20 mg PO QHS 12/28/18 escitalopram oxalate 20 mg PO DAILY 01/31/19 albuterol sulfate 1 - 2 puff INHALATION Q6H PRN PRN 08/13/19 metformin 500 mg PO BID 08/13/19 trazodone 150 mg PO QHS 08/13/19 dexamethasone 6 mg PO DAILY 7 Days #11 tab 02/14/21 guaifenesin [Mucus Relief ER] 1,200 mg PO BID 7 Days #14 tab 02/14/21 Hospital Course Operations None Procedures None Summary of Care Provided Minutes Spent on Discharge: 40 Hospital Course: 35-year-old female with past medical history of hypertension, type II DM, who comes in with low-grade fever, cough, chills, rigors, vomiting and diarrhea ongoing for 5 days. Patient has not received her COVID-19 vaccination. Evaluation in the ED show stable vitals. Her potassium was low at 2.8. Her COVID-19 rapid antigen test was positive. Her D-dimer was elevated. Chest x-ray was unremarkable. CTA of the chest showed no acute PE; showed bilateral bronchitis opacity. She was admitted to the Covid cohort unit. Her potassium was replaced. She was started on Decadron. Her diarrhea improved. She was off oxygen on the day of discharge. She was ambulated and did not qualify for oxygen. She was discharged to complete 10 days of Decadron. She was asked to continue to keep her self hydrated. She will follow-up with her primary care doctor after her quarantine. Physical Exam Narrative Physical exam: General: Alert, Oriented x3, Cooperative, No apparent distress, Well developed, obese HEENT: Atraumatic Oral: Moist Mucosa Neck: Supple Lungs: Clear to auscultation Cardiovascular: HS I+II, regular, no murmurs Abdomen: Bowel Sounds Present, Soft, Non Tender Extremities: No edema Skin: No rashes, No breakdown Neurological: Grossly intact Psych/Mental Status: Appropriate ABG / Lab / Microbiology Data Result Diagrams: 02/13/21 06:25 02/13/21 06:25 Laboratory: Laboratory Results - last 24 hr 02/13/21 02/13/21 02/13/21 11:21 15:58 21:23 POC Glucose 146 H 170 H 140 H Microbiology: Microbiology 02/13/21 05:15 Legionella Antigen - Final Urine, Clean Catch Streptococcus pneumoniae Antigen (M - Final Microbiology 02/13/21 05:15 Urine, Clean Catch Legionella Antigen - Final 02/13/21 05:15 Urine, Clean Catch Streptococcus pneumoniae Antigen (M - Final 02/12/21 18:40 Nasal Secretion SARS-CoV-2 Antigen (Rapid) - Final SARS-CoV-2 (COVID 19) Radiography Diagnostic Testing: Radiology Impression Shoulder X-Ray 02/13/21 11:06 IMPRESSION: Normal x-ray examination of the shoulder. Electronically Signed: Herson Mcdonald MD ([place]) at 16:24 EDT , Service support , D/C Instructions Discharge Diet: Low fat / Low cholesterol, 1600 Calorie Control Diet and 1800 Calorie Control Diet Discharge Activity: Return to Normal Activity Meaningful Use Info Meaningful Use Diagnoses (Choose all that apply): None applicable Discharge Plan Admission Admit Date/Time: 02/12/21 22:04 Primary Reason for Your Visit: Acute COVID-19 infection Attending Provider: Kimberlyn Roth Primary Care Provider: Kurt Brizuela Instructions Patient Instructions: Coronavirus Disease 2019 (COVID-19): Overview, Coronavirus Disease 2019 (COVID-19): Caring for Yourself or Others Additional Instructions / Restrictions: Keep yourself hydrated, you could drink some Gatorade to replenish electrolytes. You can use [id number] Imodium as needed for diarrhea. Continue to remain active and eat healthy. Let your doctor know if you develop fever >101.3F or have progressive worsening shortness of breath. Follow-up with your primary care doctor. Complete your Decadron as prescribed. Continue to use your incentive spirometer. Continue to use your inhaler as needed for shortness of breath. Continue to quarantine for 20 days total from the start of your symptoms. You have been prescribed a glucometer to monitor your blood sugars closely was on the Decadron as it can elevate your blood sugars. Let your primary care doctor know if your blood sugars are elevated persistently more than 200. Discharge Orders/Prescriptions Prescriptions: New dexamethasone 4 mg Tablet 6 mg PO DAILY 7 Days Qty: 11 RF: 0 Mucus Relief ER 1,200 mg Tablet Extended Release 12hr 1,200 mg PO BID 7 Days Qty: 14 RF: 0 Continued lisinopril [Prinivil] 10 MG tablet 20 mg PO QHS RF: 0 escitalopram oxalate 20 MG tablet 20 mg PO DAILY RF: 0 metformin 500 MG tablet 500 mg PO BID RF: 0 trazodone 150 MG tablet 150 mg PO QHS RF: 0 albuterol sulfate 1 INHALER inhaler 1 - 2 puff inhalation Q6H PRN PRN (Reason: Asthma) RF: 0 Other Ambulatory Orders: Glucometer (Routine) Location: None Selected Ordered By: Dr. Kimberlyn Roth Referrals / Follow Up: Kurt Brizuela MD [Primary Care Provider] - Disposition Disposition (needs filled in before D/C Order can be placed): Home, self care Visit Charges Inpatient E&M: 24521 Disch Hosp
--- NOTE | 2021-02-14 09:46 | CASEMGMT ---
KALEN MALIN assessment: Phone interview with patient for initial transition planning/care coordination assessment as pt is in COVID precautions. RN KIMO introduced self and role at [facility], pt voices understanding and consents to assessment. Pt speaks in full sentences and is in no distress. Pt is A/Ox4 and answers all questions appropriately. Pt states tested positive for COVID as well and him/children are quarantining at home. Pt aware to continue quarantine once home and states no further concerns. Care providers, pharmacy, and demographics verified. Presentation: pt presents for cough, chills, fever for 3 days Admitting dx: SARS COVID 2 PCP: [facility] Specialists: [facility] bipolar clinic/physician Preferred Pharmacy: [facility] Insurance: Cigna/MCR A/B Prescription Benefit: Cigna Living Will/HPOA: Pt states has LW/HPOA and is aware that they are not on file at [facility]. Pt states her , Serge Helm, is HPOA. LNOK: Serge Helm, Living Arrangements: Pt states lives with /children in 2 story home and states no concerns at home. Pt states is independent with ADL's. Transportation: Pt states drives self and states no transportation concerns. DME/HHC: Pt states no current DME or need for any. Pt states no hx of HHC or SNF. Pt is 100% on room air with ambulation per Kristin HIGUERA. Pt states no concerns with going home at time of discharge. Pt states is on disability. Pt states does not smoke cigarettes or drink ETOH. Pt voices no further concerns/needs. CM to follow for any further discharge planning/needs. Advised pt to ask for CM if any further questions/concerns/needs arise, voices understanding. Pt Goal: Home Plan: Home w/ family to continue quarantine. SStaten KALEN MALIN
[2021-02-14 10:56] LABS: Bedside Glucose 127 mg/dL (70-110)
[2021-02-14 11:17] LABS: Thyroid Stim Hormone (TSH) 0.74 uIU/mL (0.358-3.74)
[2021-02-14 13:35] LABS: Pathologist Review Reviewed
--- NOTE | 2021-02-15 13:29 | CASEMGMT ---
RN CM Discharge F/U Phone Call LACE: 10 Strata: 3 Discharge date: 02/14/21 Call date: 02/15/21 Call time: 1330 Attempted to reach pt without success, message left for pt to call this RN CM back if/when able. SStaten RN CM Admission dx: SARS COVID
== END 2021-02-14 13:00 | disposition home or self-care (01) | DRG 179 ==
LOC: ED 21:21 → ICU 23:17
PROVIDERS: Student in an Organized Health Care Education/Training Program; Admitting Provider Hospitalist; Emergency Provider Emergency Medicine; PCP Family Medicine; Visit Provider Internal Medicine
DX: U07.1 COVID-19 (principal); R00.1 Bradycardia, unspecified; E87.6 Hypokalemia; I10 Essential (primary) hypertension; E11.9 Type 2 diabetes mellitus without complications; R22.31 Localized swelling, mass and lump, right upper limb; Z79.84 Long term (current) use of oral hypoglycemic drugs; Z79.899 Other long term (current) drug therapy
CPT/HCPCS: 71045; 71275; 73030; 80053; 81001; 82962; 83605; 83735; 84145; 84443; 84703; 85025; 85379; 87040; 87426; 87449; 93005; 99285; J7120; Q9967; A4216; J2405

== ENCOUNTER 2021-02-19 15:29 | Emergency (ER) | payer OTHER, MEDICARE, SELFPAY ==
[2021-02-12 23:30] VITALS: BMI 35.8
[2021-02-19 15:30] VITALS: BP 189/97; PULSE 62; RESP 19; TEMP 37.2; O2SAT 99; BMI 35.4
[2021-02-19 15:40] VITALS: BP 163/82; PULSE 54; RESP 16; TEMP 37.2; O2SAT 99
--- NOTE | 2021-02-19 16:12 | EKG12_ITS ---
Test Reason : Blood Pressure : / mmHG Vent. Rate : 056 BPM Atrial Rate : 056 BPM P-R Int : 000 ms QRS Dur : 072 ms QT Int : 444 ms P-R-T Axes : 000 001 029 degrees QTc Int : 428 ms Normal sinus rhythm Abnormal ECG Confirmed by KRISHNA JORDAN, ESCOBAR ([id number]), dictionary editor RIANNA AKBAR ([id number]) on 02/22/2021 9:16:54 AM Referred By: JOE Confirmed By:ESCOBAR KELLER MD
--- NOTE | 2021-02-19 16:14 | EDS_ITS ---
HPI History of Present Illness Chief Complaint: General Illness Informant: patient Onset/Context/Timing Onset: Days Timing: Continuous Current Severity: Mild Maximum Severity: Mild Narrative Narrative: 35-year-old diabetic female diagnosed with Covid about 1 week ago. Says she is feeling worse. Said her blood sugars are elevated. He is having worsening cough and shortness of breath. She had a recent ER evaluation and a CTA at that time that was negative. Prior similar symptoms: Yes Recent Illness/Hospitalization: No PFSH PFSH Medical History HTN (hypertension) Seizure disorder Type 2 diabetes mellitus Home Medications lisinopril [Prinivil] 20 mg PO QHS 12/28/18 [History Last Taken Unknown] escitalopram oxalate 20 mg PO DAILY 01/31/19 [History Last Taken Unknown] albuterol sulfate 1 - 2 puff INHALATION Q6H PRN PRN 08/13/19 [History Last Taken 08/13/19] metformin 500 mg PO BID 08/13/19 [History Last Taken Unknown] trazodone 150 mg PO QHS 08/13/19 [History Last Taken Unknown] dexamethasone 6 mg PO DAILY 7 Days #11 tab 02/14/21 [Rx Last Taken Unknown] guaifenesin [Mucus Relief ER] 1,200 mg PO BID 7 Days #14 tab 02/14/21 [Rx Last Taken Unknown] Allergy/AdvReac Type Severity Reaction Status Date / Time codeine phosphate Allergy Swelling Verified 02/19/21 15:32 [From Tylenol-Codeine #3] shellfish derived Allergy Swelling Verified 02/19/21 15:32 venom-honey bee Allergy Angioedema Verified 02/19/21 15:32 [bee venom (honey bee)] Family History Other Diabetes Heart disease Surgical History History of cholecystectomy Social History Smoking Status: Former smoker ROS ROS ED ROS Narrative Covid diagnosis with shortness of breath and cough. Review of Systems ROS Unobtainable: Denies due to encephalopathy Constitutional Constitutional ED: Reports chills, fever(s) and subjective Eyes Eyes: Denies change in vision ENT ENT ED: Denies ear pain or sore throat Cardiovascular Cardiovascular: Denies chest pain or palpitations Respiratory/Chest Respiratory/Chest: Reports cough and dyspnea; Denies sputum Gastrointestinal Gastrointestinal: Denies abdominal pain, diarrhea, nausea or vomiting Genitourinary Genitourinary ED: Reports urinary frequency; Denies dysuria or hematuria Musculoskeletal Musculoskeletal: Reports myalgias Integumentary Reports rash Neurologic Neurologic: Reports headache(s) Psychiatric Psychiatric: Reports depression Endocrine Endocrinology: Reports polyuria Allergic/Immunologic Allergic/Immunologic ED: Reports urticaria EXAM Physical Exam Narrative Exam Narrative: 35-year-old female diabetic with recent diagnosis of COVID-19 about 1 week ago. States she is feeling worse. Also her blood sugars are elevated. Vital signs are stable. She is afebrile. Her pulse ox is 99% on room air. No hypoxia. HEENT exam unremarkable. Neck nontender. No lymphadenopathy. Lungs clear to auscultation bilaterally. Heart regular rhythm no murmur. Abdomen is soft nontender normal bowel sounds no peritoneal signs. Patient moving all 4 extremities. No edema. Neurologically she is awake and alert with no focal motor deficits. Const Vital Signs: 02/19/21 15:30 02/19/21 15:37 02/19/21 15:40 Temperature 98.9 F 98.9 F Temperature Source Temporal Temporal Pulse Rate 62 54 L Respiratory Rate 19 H 16 Respiratory Pattern Normal Blood Pressure 189/97 H 163/82 H Blood Pressure Mean 127 109 Pulse Ox 99 99 Oxygen Delivery Method Room Air Room Air 02/19/21 17:20 02/19/21 18:23 02/19/21 19:21 Temperature 98.7 F 98.8 F 99.1 F Temperature Source Oral Oral Oral Pulse Rate 60 57 L 54 L Respiratory Rate 28 H 17 18 Respiratory Pattern Blood Pressure 197/106 H 189/102 H 187/88 H Blood Pressure Mean 136 131 121 Pulse Ox 98 96 100 Oxygen Delivery Method Room Air Room Air Room Air Positive well nourished and well developed General Appearance ED: well developed HEENT Reports moist mucous membranes Negative for trauma or tenderness Eyes PERRL and EOMs intact bilaterally Neck no lymphadenopathy and supple Chest Wall inspection of chest normal Resp normal respiratory effort and clear to auscultation bilaterally Auscultation: Negative for rhonchi, wheezes or diminished lung sounds Cardio regular rate, regular rhythm and no murmurs GI normal to inspection, nondistended, normoactive bowel sounds, non-tender and non-distended Palpation: soft Back/Spine no CVA tenderness Extremity normal to inspection Neuro oriented x3 and CN's II-XII intact bilaterally Sensorium / Orientation: alert Motor Exam: strength 5/5 throughout Psych mental status grossly normal Skin no rashes or lesions noted and no wounds MDM MDM MDM Narrative Medical decision making narrative: 35-year-old diabetic female recently diagnosed with Covid. Nonspecific exam. To be treated with IV fluids. Reassess. Repeat exam patient is doing well at 8:20 PM. Her CBC, chemistry and chest x- ray were unremarkable. She has been upright and eating. She received some IV fluids. She and I discussed admission versus home treatment. She is already on Decadron. She wants to try to be discharged home. She is not hypoxic. She is not dehydrated. I think that is a reasonable course. She knows to follow-up with her primary care physician or return if worse. Lab Data Attestation: I reviewed the patient's lab results. Labs: Laboratory Results - last 24 hr 02/19/21 02/19/21 02/19/21 16:55 16:55 17:20 WBC 9.2 RBC 4.16 L Hgb 12.1 Hct 35.9 L MCV 86.3 MCH 29.1 MCHC 33.7 RDW Std Deviation 45.2 H RDW Coeff of Caren 14.4 Plt Count 263 MPV 10.5 Sodium 134 L Potassium 4.3 Chloride 100 Carbon Dioxide 26.0 Anion Gap 8 BUN 11 Creatinine 0.81 Estim Creat Clear Calc 80.19 Est GFR (MDRD) Af Amer 103 Est GFR (MDRD) Non-Af 85 BUN/Creatinine Ratio 13.5 Glucose 306 H Calcium 9.1 POC Glucose 286 H Radiography Chest X-Ray - ED: 1 View, Read by ED Physician, Read by Radiologist, Unchanged, Normal, Heart, Lungs, Mediastinum, Bony Structures and No Acute Disease Diagnostic Testing: Radiology Impression Chest X-Ray 02/19/21 17:01 IMPRESSION: Limited inspiratory effort without acute cardiopulmonary disease or major interval change. Electronically Signed: Han Garcia DO at 17:46 EDT Tel [phone], Service support , EKG Initial EKG: Attestation: I personally reviewed and interpreted this EKG as follows: Interpretation: Sinus Rhythm, No Acute Injury Pattern and Sinus Bradycardia Prior EKG tracings: available for review Discharge Plan Triage Chief Complaint: General Illness ED Provider: Tavares Lee Dx/Rx/DC Orders Clinical Impression: COVID-19 Instructions: Coronavirus Disease 2019 (COVID-19): Caring for Yourself or Others Prescriptions: No Action lisinopril [Prinivil] 10 MG tablet 20 mg PO QHS RF: 0 escitalopram oxalate 20 MG tablet 20 mg PO DAILY RF: 0 metformin 500 MG tablet 500 mg PO BID RF: 0 trazodone 150 MG tablet 150 mg PO QHS RF: 0 albuterol sulfate 1 INHALER inhaler 1 - 2 puff inhalation Q6H PRN PRN (Reason: Asthma) RF: 0 dexamethasone 4 mg Tablet 6 mg PO DAILY 7 Days Qty: 11 RF: 0 Mucus Relief ER 1,200 mg Tablet Extended Release 12hr 1,200 mg PO BID 7 Days Qty: 14 RF: 0 Primary Care Provider: Kurt Brizuela Referrals: Kurt Brizuela MD [Primary Care Provider] - 3-5 Days Activity Restrictions/Additional Instructions: Follow-up with your primary care physician. Your labs and x-ray today were unremarkable as was your EKG. Fluids and rest. Tylenol and Motrin. Return if feeling a lot worse. Disposition Disposition: Home, self care
--- NOTE | 2021-02-19 17:01 | RAD_ITS ---
STUDY: X-RAY CHEST REASON FOR EXAM: Female, 35 years old. COVID 19 positive. TECHNIQUE: Single AP portable view of the chest. COMPARISON: Large 8 2020. FINDINGS: The lungs are hypoexpanded. There is no acute infiltrate or mass. There is no demonstrated pleural abnormality. Normal size heart. Normal mediastinum and gil. Normal visualized pulmonary arteries. Normal visualized aortic arch and descending thoracic aorta. Normal visualized thoracic spine. Normal visualized ribs, clavicles, and shoulders. There is no demonstrated abnormality of the visualized soft tissue structures of the upper abdomen. RAD/Chest 1 View (Portable) IMPRESSION: Limited inspiratory effort without acute cardiopulmonary disease or major interval change. Electronically Signed: Han Garcia DO at 17:46 EDT Tel [phone], Service support ,
[2021-02-19 17:06] LABS: Hematocrit 35.9 % (37-47); Hemoglobin 12.1 g/dL (12.0-15.0); Mean Corp Hgb Conc 33.7 g/dL (32-36); Mean Corpuscular Hgb 29.1 pg (27.0-32.0); Mean Corpuscular Volume 86.3 fL (81-99); Mean Platelet Vol. 10.5 fl (6.2-12.0); Platelet Count 263 K/mm3 (150-450); RBC Distribution Width CV 14.4 % (11.6-14.6); RBC Distribution Width SD 45.2 fl (35.1-43.9); Red Blood Count 4.16 M/mm3 (4.2-5.4); White Blood Count 9.2 K/mm3 (4.4-11.0)
[2021-02-19 17:20] VITALS: BP 197/106; PULSE 60; RESP 28; TEMP 37.1; O2SAT 98
[2021-02-19 17:24] LABS: Anion Gap 8 (5-15); BUN 11 mg/dL (7-18); BUN/Creat Ratio 13.5 RATIO (10-20); Calcium,Total 9.1 mg/dL (8.5-10.1); Chloride 100 mmol/L (98-107); Creatinine, Serum 0.81 mg/dL (0.55-1.02); EST Glomerular Filtration Rate 85 mL/min (>60); Est Glom Filt Rate - Afr Amer 103 mL/min (>60); Estimated Creatinine Clearance 80.19 ml/min; Glucose 306 mg/dL (74-106); Potassium 4.3 mmol/L (3.5-5.1); Sodium Level 134 mmol/L (136-145)
[2021-02-19 17:30] LABS: Bedside Glucose 286 mg/dL (70-110)
[2021-02-19] MEDS: 0.9% Normal Saline 1,000 ML 1000 ML IV (18:14)
[2021-02-19 18:23] VITALS: BP 189/102; PULSE 57; RESP 17; TEMP 37.1; O2SAT 96
--- NOTE | 2021-02-19 18:25 | ED.RN ---
Physician aware of high BP throughout stay.
[2021-02-19 19:21] VITALS: BP 187/88; PULSE 54; RESP 18; TEMP 37.3; O2SAT 100
[2021-02-19 20:28] VITALS: BP 177/96; PULSE 64; RESP 18; O2SAT 98
== END 2021-02-19 20:44 | disposition home or self-care (01) ==
PROVIDERS: Emergency Provider Emergency Medicine; PCP Family Medicine
DX: U07.1 COVID-19 (principal); I10 Essential (primary) hypertension; E11.9 Type 2 diabetes mellitus without complications; Z79.84 Long term (current) use of oral hypoglycemic drugs; Z79.52 Long term (current) use of systemic steroids; Z79.899 Other long term (current) drug therapy; Z87.891 Personal history of nicotine dependence
CPT/HCPCS: 71045; 80048; 82962; 85027; 93005; 96360; 99285; J7030

== ENCOUNTER 2021-02-22 21:40 | Emergency (ER) | payer OTHER, MEDICARE, SELFPAY ==
[2021-02-22 21:42] VITALS: BP 161/112; PULSE 98; RESP 18; TEMP 36.3; O2SAT 98; BMI 35.4
--- NOTE | 2021-02-22 22:35 | EX.ED.DYSGE1 ---
HPI History of Present Illness Chief Complaint: Back Informant: patient Narrative Narrative: 35-year-old female states she was diagnosed with COVID-19 on the eighth. This will make her 3rd ED visit during that timeframe. She states that since the eighth she has had a progressively worsening pain in the neck. She states now she cannot turn it in either direction right or left without pain. She denies any fevers. States her Covid symptoms have gotten significantly better. She has tried heat and Tylenol with no relief PFSH PFSH Medical History (Updated 02/22/21 @ 22:[address] Madi Garza DO) Depression HTN (hypertension) Seizure disorder Seizures Type 2 diabetes mellitus Home Medications lisinopril [Prinivil] 20 mg PO QHS 12/28/18 [History Last Taken Unknown] escitalopram oxalate 20 mg PO DAILY 01/31/19 [History Last Taken Unknown] albuterol sulfate 1 - 2 puff INHALATION Q6H PRN PRN 08/13/19 [History Last Taken 08/13/19] metformin 500 mg PO BID 08/13/19 [History Last Taken Unknown] trazodone 150 mg PO QHS 08/13/19 [History Last Taken Unknown] diazepam [Valium] 5 mg PO TID PRN #15 tab 02/22/21 [Rx Last Taken Unknown] ketorolac 10 mg PO TID PRN 4 Days #12 tab 02/22/21 [Rx Last Taken Unknown] Allergy/AdvReac Type Severity Reaction Status Date / Time codeine phosphate Allergy Swelling Verified 02/22/21 21:42 [From Tylenol-Codeine #3] shellfish derived Allergy Swelling Verified 02/22/21 21:42 venom-honey bee Allergy Angioedema Verified 02/22/21 21:42 [bee venom (honey bee)] Family History Other Diabetes Heart disease Surgical History History of cholecystectomy Social History (Updated 02/22/21 @ 22:[address] Madi Garza DO) Smoking Status: Former smoker substance use type: does not use ROS ROS ED Constitutional Constitutional ED: Denies chills or weight loss Eyes Eyes: Denies change in vision or diplopia ENT ENT ED: Denies ear pain, rhinorrhea or sore throat Cardiovascular Cardiovascular: Denies chest pain, orthopnea, palpitations or racing heartbeat Respiratory/Chest Respiratory/Chest: Denies cough, dyspnea or orthopnea Gastrointestinal Gastrointestinal: Denies abdominal pain, diarrhea, nausea or vomiting Genitourinary Genitourinary ED: Denies dysuria, hematuria or urinary frequency Musculoskeletal Musculoskeletal: Reports neck pain; Denies arthralgias or myalgias Integumentary Denies abscess or rash Neurologic Neurologic: Denies headache(s) or weakness Psychiatric Psychiatric: Denies anxiety, depression, suicidal ideation or suicidal thoughts Endocrine Endocrinology: Denies polydipsia, polyphagia or polyuria Allergic/Immunologic Allergic/Immunologic ED: Denies mouth swelling, tongue swelling or urticaria EXAM Physical Exam Const Vital Signs: 02/22/21 21:42 Temperature 97.3 F L Temperature Source Temporal Pulse Rate 98 Respiratory Rate 18 Blood Pressure 161/112 H Blood Pressure Mean 128 Pulse Ox 98 Oxygen Delivery Method Room Air Positive well nourished, well developed and obese General Appearance ED: well developed Nutritional Appearance: obese HEENT Reports normocephalic, head/scalp atraumatic and moist mucous membranes Eyes PERRL and EOMs intact bilaterally Neck no lymphadenopathy, supple and no JVD Neck Narrative: Patient has some hyperemia of the neck paraspinal musculature/trapezius musculature. Palpable muscle spasm. Painful range of motion. I would not characterize this is meningitic. General: tenderness Resp normal respiratory effort and clear to auscultation bilaterally Cardio regular rate, regular rhythm and no murmurs GI normal to inspection, nondistended, normoactive bowel sounds and non-tender Palpation: soft Back/Spine no CVA tenderness and normal ROM Extremity normal to inspection General Extremety ED: Negative for edema General Extremity: Negative for edema Neuro oriented x3 and CN's II-XII intact bilaterally Sensorium / Orientation: alert Motor Exam: strength 5/5 throughout Psych mental status grossly normal Mood & Affect: Negative for depressed or tearful Skin no rashes or lesions noted and no wounds MDM MDM MDM Narrative Medical decision making narrative: Patient has muscle spasm appears to be treated with anti-inflammatories and some Valium. Follow with primary care if not improving. Discharge Plan Triage Chief Complaint: Back ED Provider: Madi Garza Dx/Rx/DC Orders Clinical Impression: COVID-19, Cervical paraspinal muscle spasm Instructions: Coronavirus Disease 2019 (COVID-19): Caring for Yourself or Others, ED Neck Spasm, No Trauma Prescriptions: New diazepam [Valium] 5 mg tablet 5 mg PO TID PRN (Reason: muscle spasm) Qty: 15 RF: 0 ketorolac 10 mg tablet 10 mg PO TID PRN (Reason: pain) 4 Days Qty: 12 RF: 0 No Action lisinopril [Prinivil] 10 MG tablet 20 mg PO QHS RF: 0 escitalopram oxalate 20 MG tablet 20 mg PO DAILY RF: 0 metformin 500 MG tablet 500 mg PO BID RF: 0 trazodone 150 MG tablet 150 mg PO QHS RF: 0 albuterol sulfate 1 INHALER inhaler 1 - 2 puff inhalation Q6H PRN PRN (Reason: Asthma) RF: 0 Primary Care Provider: Kurt Brizuela Referrals: Kurt Brizuela MD [Primary Care Provider] - 3-5 Days if not improving Disposition Disposition: Home, self care
[2021-02-22] MEDS: Ketorolac 60 MG/2 ML Vial IM (22:58)
[2021-02-22] MEDS: diazePAM 5 MG Tablet PO (22:59)
[2021-02-22 23:31] VITALS: BP 127/84; PULSE 84; RESP 16; O2SAT 98
== END 2021-02-22 23:31 | disposition home or self-care (01) ==
PROVIDERS: Emergency Provider Emergency Medicine; PCP Family Medicine
DX: U07.1 COVID-19 (principal); M62.838 Other muscle spasm; I10 Essential (primary) hypertension; G40.909 Epilepsy, unspecified, not intractable, without status epilepticus; E11.9 Type 2 diabetes mellitus without complications; E66.9 Obesity, unspecified; F32.9 Major depressive disorder, single episode, unspecified; Z68.35 Body mass index [BMI] 35.0-35.9, adult; Z79.84 Long term (current) use of oral hypoglycemic drugs; Z79.899 Other long term (current) drug therapy; Z87.891 Personal history of nicotine dependence
CPT/HCPCS: 96372; 99283

== ENCOUNTER 2021-02-24 13:21 | Emergency (ER) | payer OTHER, MEDICARE, SELFPAY ==
[2021-02-24 13:22] VITALS: BP 150/104; PULSE 82; RESP 15; TEMP 36.3; O2SAT 98; BMI 35.4
--- NOTE | 2021-02-24 13:42 | US_ITS ---
EXAM: US PELVIS TRANSVAGINAL CLINICAL INDICATION: pelvic pain -- VAGINAL PAIN AND BURNING TECHNIQUE: Transvaginal pelvic ultrasound was performed with grayscale and color Doppler imaging. Transvaginal imaging was used for better evaluation of the endometrium and adnexa. This report was created using [employer] report generation technology. COMPARISON: None. FINDINGS: UTERUS/CERVIX: Uterus measures 8.6 x 3.3 x 4.7 cm. Endometrium is normal in thickness measuring 1.1 cm. Small nabothian cysts. Anteverted. There is no demonstrated uterine mass. RIGHT OVARY: Right ovary is normal in size and echogenicity measuring 2.5 x 2.4 x 1.7 cm. No mass or dominant cyst. Blood flow is present in the right ovary. LEFT OVARY: Left ovary is normal in size and echogenicity measuring 4.2 x 2.9 x 3.3 cm. 2.6 x 1.9 cm dominant follicle in the left ovary. Blood flow is present in the left ovary. FREE FLUID: None. US/Transvaginal Non- IMPRESSION: Dominant left ovarian follicle. Otherwise negative study. Electronically Signed: Anika Olivo MD at 16:15 EDT Tel , Service support ,
[2021-02-24 14:17] LABS: Bacteria 0 SEEN /hpf (None Seen); Mucous, Urine 0 SEEN /hpf (<or=2+); Red Blood Cells-Urine 0 SEEN /hpf (0-5)
[2021-02-24 14:21] LABS: Color, Urine Yellow (Yellow); Glucose, Dipstick 1000 mg/dl (Normal); Ketone-Dipstick 5 mg/dl (Negative); Leukocyte Esterase-Dipstick 100 /ul (Negative); Nitrite-Dipstick Negative (Negative); Occult Blood-Urine 25 /ul (Negative); Protein-Dipstick Negative (Negative); Specific Gravity, Urine 1.015 (1.002-1.030); Urine Bilirubin Dipstick Negative (Negative); Urine Clarity Sl. Cloudy (Clear); Urine Urobilinogen Normal (Normal)
[2021-02-24 14:24] LABS: Internal QC Validated? YES +Cl - CLEAR BKGD; Pregnancy, Urine Negative Negative
[2021-02-24 14:29] LABS: Squamous Epithelial Cells - UA 5-10 SEEN /hpf (5-10)
[2021-02-24 14:30] LABS: White Blood Cells 5-10 SEEN /hpf (0-5)
[2021-02-24] MEDS: 0.9% Normal Saline 1,000 ML 1000 ML IV (15:45)
[2021-02-24 15:51] LABS: Absolute Lymphocyte Count 1.95 X10^3/uL (0.83-4.51); Absolute Neutrophil Count 6.2 X10^3/uL (2.0-7.7); Basophil# 0.02 X10^3/uL; Basophil% 0.2 % (0-1); Eosinophil# 0.16 X10^3/uL; Eosinophils% 1.8 % (0-5); Hematocrit 40.2 % (37-47); Hemoglobin 13.3 g/dL (12.0-15.0); Lymphocyte # 1.95 X10^3/ul (0.83-4.51); Mean Corp Hgb Conc 33.1 g/dL (32-36); Mean Corpuscular Volume 87.8 fL (81-99); Mean Platelet Vol. 9.8 fl (6.2-12.0); Monocyte# 0.46 X10^3/uL; Monocyte% 5.2 % (0-10); NRBC Flagged by Analyzer 0 % (0-5); Neutrophil # 6.16 X10^3/uL (2.7-7.7); Neutrophil % 69.7 % (47-70); Platelet Count 230 K/mm3 (150-450); RBC Distribution Width SD 47.8 fl (35.1-43.9); Red Blood Count 4.58 M/mm3 (4.2-5.4); White Blood Count 8.9 K/mm3 (4.4-11.0)
[2021-02-24 16:07] LABS: AST(SGOT) 23 U/L (15-37); Alanine Aminotransfer ALT/SGPT 27 U/L (13-56); Albumin, Serum 3.5 g/dL (3.2-5.0); Alkaline Phosphatase 77 U/L (45-117); Anion Gap 5 (5-15); BUN 12 mg/dL (7-18); BUN/Creat Ratio 14.6 RATIO (10-20); Calcium,Total 9.1 mg/dL (8.5-10.1); Chloride 105 mmol/L (98-107); Creatinine, Serum 0.82 mg/dL (0.55-1.02); EST Glomerular Filtration Rate 84 mL/min (>60); Est Glom Filt Rate - Afr Amer 102 mL/min (>60); Estimated Creatinine Clearance 79.21 ml/min; Globulin 3.4 g/dL (2.2-4.2); Glucose 129 mg/dL (74-106); Potassium 3.9 mmol/L (3.5-5.1); Protein, Total 6.9 g/dL (6.4-8.2); Sodium Level 138 mmol/L (136-145)
[2021-02-24] MEDS: Acetaminophen 500 MG Tablet 1000 MG PO (16:09)
--- NOTE | 2021-02-24 16:17 | EX.ED.DYSGE1 ---
HPI History of Present Illness Chief Complaint: Other, Pain/Inj Narrative Narrative: Patient presents with dysuria, pelvic pressure that started earlier today she has no flank pain she has no hematuria. She has no fever chills cough or congestion. She denies . [facility] Medical History (Updated 02/24/21 @ 16:[address] Venkat Cunha MD) Depression HTN (hypertension) Seizure disorder Seizures Type 2 diabetes mellitus Home Medications lisinopril [Prinivil] 20 mg PO QHS 12/28/18 [History Last Taken Unknown] escitalopram oxalate 20 mg PO DAILY 01/31/19 [History Last Taken Unknown] albuterol sulfate 1 - 2 puff INHALATION Q6H PRN PRN 08/13/19 [History Last Taken 08/13/19] metformin 500 mg PO BID 08/13/19 [History Last Taken Unknown] trazodone 150 mg PO QHS 08/13/19 [History Last Taken Unknown] diazepam [Valium] 5 mg PO TID PRN #15 tab 02/22/21 [Rx Last Taken Unknown] ketorolac 10 mg PO TID PRN 4 Days #12 tab 02/22/21 [Rx Last Taken Unknown] sulfamethoxazole-trimethoprim [Bactrim DS] 1 tab PO BID #14 tab 02/24/21 [Rx Last Taken Unknown] Allergy/AdvReac Type Severity Reaction Status Date / Time codeine phosphate Allergy Swelling Verified 02/24/21 13:25 [From Tylenol-Codeine #3] shellfish derived Allergy Swelling Verified 02/24/21 13:25 venom-honey bee Allergy Angioedema Verified 02/24/21 13:25 [bee venom (honey bee)] Family History Other Diabetes Heart disease Surgical History History of cholecystectomy Social History (Updated 02/22/21 @ 22:[address] Madi Garza DO) Smoking Status: Former smoker substance use type: does not use ROS ROS ED ROS Narrative Past medical history: Diabetes on Metformin Medications: Reviewed Social history: Noncontributory Review of systems: All systems negative except as indicated General: No fever Cardiovascular: No chest pain Respiratory: No shortness of breath or cough Gastrointestinal: No abdominal pain, nausea vomiting or diarrhea Genitourinary: Dysuria and pelvic pressure as in HPI Musculoskeletal: Denies myalgias no difficulty with ambulation Skin: No rash Neurological: No memory loss, confusion or any focal weakness Psych: No recent behavioral changes Hematologic: No easy bleeding or easy bruising EXAM Physical Exam Narrative Exam Narrative: Physical exam General: Well nourished, Well developed, appears slightly uncomfortable ENT: Moist mucous membranes Neck: Supple, Nontender, No lymphadenopathy Cardiovascular: Regular rate, Regular rhythm Respiratory: No distress, CTA bilaterally Abdomen: Soft, there is suprapubic pain to palpation. No pain at McBurney's. No upper abdominal pain. No guarding or rebound : Deferred Back: Nontender, Normal Inspection. Negative for: CVA tenderness Extremities: Nontender, No edema Skin: Normal color, No rash Neurological: Alert, Normal Strength, Normal Sensation Psychological: Normal affect Const Vital Signs: 02/24/21 13:22 Temperature 97.3 F L Temperature Source Temporal Pulse Rate 82 Respiratory Rate 15 Blood Pressure 150/104 H Blood Pressure Mean 119 Pulse Ox 98 Oxygen Delivery Method Room Air MDM MDM MDM Narrative Medical decision making narrative: Patient has glucosuria, she does have a urinary tract infection which may cause her symptoms she otherwise has a small ovarian cyst?follicle, her blood work is unremarkable other than hyperglycemia. She tells me she is on Metformin I told her to follow-up with her PCP for readjustment of her medication otherwise I will treat her with antibiotics for home. Lab Data Labs: Laboratory Results - last 24 hr 02/24/21 02/24/21 02/24/21 14:10 15:45 15:45 WBC 8.9 RBC 4.58 Hgb 13.3 Hct 40.2 MCV 87.8 MCH 29.0 MCHC 33.1 RDW Std Deviation 47.8 H RDW Coeff of Caren 15.0 H Plt Count 230 MPV 9.8 Immature Gran % (Auto) 1.100 H Neut % (Auto) 69.7 Lymph % (Auto) 22.0 [place] % (Auto) 5.2 Eos % (Auto) 1.8 Baso % (Auto) 0.2 Absolute Neuts (auto) 6.2 Absolute Lymphs (auto) 1.95 Nucleated RBC % 0 Sodium 138 Potassium 3.9 Chloride 105 Carbon Dioxide 28.0 Anion Gap 5 BUN 12 Creatinine 0.82 Estim Creat Clear Calc 79.21 Est GFR (MDRD) Af Amer 102 Est GFR (MDRD) Non-Af 84 BUN/Creatinine Ratio 14.6 Glucose 129 H Calcium 9.1 Total Bilirubin 0.90 AST 23 ALT 27 Alkaline Phosphatase 77 Total Protein 6.9 Albumin 3.5 Globulin 3.4 Albumin/Globulin Ratio 1.0 Urine Color Yellow Urine Clarity Sl. Cloudy Urine pH 7.0 Ur Specific [place] 1.015 Urine Protein Negative Urine Glucose (UA) 1000 H Urine Ketones 5 H Urine Occult Blood 25 H Urine Nitrite Negative Urine Bilirubin Negative Urine Urobilinogen Normal Ur Leukocyte Esterase 100 H Urine RBC 0 SEEN Urine WBC 5-10 SEEN Ur Squamous Epith Cells 5-10 SEEN Urine Bacteria 0 SEEN Urine Mucus 0 SEEN Urine Test Negative Radiography Diagnostic Testing: Radiology Impression Transvaginal US 02/24/21 13:42 IMPRESSION: Dominant left ovarian follicle. Otherwise negative study. Electronically Signed: Anika Olivo MD at 16:15 EDT Tel , Service support , Discharge Plan Triage Chief Complaint: Other, Pain/Inj ED Provider: Venkat Cunha Dx/Rx/DC Orders Clinical Impression: Urinary tract infection Instructions: ED Bladder Infection, Female (Adult) Prescriptions: New sulfamethoxazole-trimethoprim [Bactrim DS] 800-160 mg tablet 1 tab PO BID Qty: 14 RF: 0 No Action lisinopril [Prinivil] 10 MG tablet 20 mg PO QHS RF: 0 escitalopram oxalate 20 MG tablet 20 mg PO DAILY RF: 0 metformin 500 MG tablet 500 mg PO BID RF: 0 trazodone 150 MG tablet 150 mg PO QHS RF: 0 albuterol sulfate 1 INHALER inhaler 1 - 2 puff inhalation Q6H PRN PRN (Reason: Asthma) RF: 0 diazepam [Valium] 5 mg tablet 5 mg PO TID PRN (Reason: muscle spasm) Qty: 15 RF: 0 ketorolac 10 mg tablet 10 mg PO TID PRN (Reason: pain) 4 Days Qty: 12 RF: 0 Primary Care Provider: Kurt Brizuela Referrals: Kurt Brizuela MD [Primary Care Provider] - 2 Days Disposition Disposition: Home, self care
[2021-02-24 16:35] VITALS: BP 142/84; PULSE 80; RESP 18; O2SAT 99
== END 2021-02-24 16:37 | disposition home or self-care (01) ==
PROVIDERS: Emergency Provider Emergency Medicine; PCP Family Medicine
DX: N39.0 Urinary tract infection, site not specified (principal); I10 Essential (primary) hypertension; E11.9 Type 2 diabetes mellitus without complications; G40.909 Epilepsy, unspecified, not intractable, without status epilepticus; Z79.84 Long term (current) use of oral hypoglycemic drugs; Z79.899 Other long term (current) drug therapy; Z87.891 Personal history of nicotine dependence
CPT/HCPCS: 76830; 80053; 81001; 81025; 85025; 93976; 96360; 99283; J7030; A4216

== ENCOUNTER 2021-06-23 14:42 | Emergency (ER) | payer OTHER, MEDICARE, SELFPAY ==
[2021-06-23 14:44] VITALS: BP 121/88; PULSE 130; RESP 16; TEMP 36.9; O2SAT 97; BMI 35.4
[2021-06-23 16:18] LABS: Absolute Lymphocyte Count 2.15 X10^3/uL (0.83-4.51); Absolute Neutrophil Count 6.4 X10^3/uL (2.0-7.7); Basophil# 0.06 X10^3/uL; Basophil% 0.6 % (0-1); Eosinophil# 0.09 X10^3/uL; Hemoglobin 13.9 g/dL (12.0-15.0); Lymphocyte # 2.15 X10^3/ul (0.83-4.51); Mean Corp Hgb Conc 34.8 g/dL (32-36); Mean Corpuscular Hgb 28.7 pg (27.0-32.0); Mean Corpuscular Volume 82.6 fL (81-99); Mean Platelet Vol. 10.5 fl (6.2-12.0); Monocyte# 0.55 X10^3/uL; Monocyte% 5.9 % (0-10); NRBC Flagged by Analyzer 0 % (0-5); Neutrophil # 6.36 X10^3/uL (2.7-7.7); Platelet Count 275 K/mm3 (150-450); RBC Distribution Width CV 14.4 % (11.6-14.6); RBC Distribution Width SD 42.5 fl (35.1-43.9); Red Blood Count 4.84 M/mm3 (4.2-5.4); White Blood Count 9.4 K/mm3 (4.4-11.0)
--- NOTE | 2021-06-23 16:18 | RAD_ITS ---
STUDY: X-RAY CHEST REASON FOR EXAM: Female, 36 years old. COUGH TECHNIQUE: Single AP portable view of the chest. COMPARISON: 02/19/2021 FINDINGS: The lungs are clear and expanded. There is no demonstrated pleural abnormality. Normal size heart. Normal mediastinum and gil. Normal visualized pulmonary arteries. Normal visualized aortic arch and descending thoracic aorta. Normal visualized thoracic spine. Normal visualized ribs, clavicles, and shoulders. There is no demonstrated abnormality of the visualized soft tissue structures of the upper abdomen. RAD/Chest 1 View IMPRESSION: Normal x-ray examination of the chest. Electronically Signed: Rodrick Lauren MD at 16:41 EDT Tel , Service support ,
[2021-06-23 16:31] LABS: Anion Gap 9 (5-15); BUN 8 mg/dL (7-18); BUN/Creat Ratio 8.2 RATIO (10-20); Calcium,Total 9.6 mg/dL (8.5-10.1); Chloride 101 mmol/L (98-107); Creatinine, Serum 0.97 mg/dL (0.55-1.02); EST Glomerular Filtration Rate 69 mL/min (>60); Est Glom Filt Rate - Afr Amer 83 mL/min (>60); Estimated Creatinine Clearance 66.33 ml/min; Glucose 252 mg/dL (74-106); Potassium 3.4 mmol/L (3.5-5.1); Sodium Level 136 mmol/L (136-145)
[2021-06-23 17:38] VITALS: BP 142/97; PULSE 122; RESP 18; O2SAT 100
[2021-06-23] MEDS: 0.9% Normal Saline 1,000 ML 999 ML IV (17:55)
[2021-06-23 17:56] VITALS: BP 116/96; PULSE 109; RESP 16; O2SAT 98
[2021-06-23] MEDS: Ondansetron 4 MG/2 ML Vial IV (17:56)
--- NOTE | 2021-06-23 18:09 | EDS_ITS ---
HPI History of Present Illness Chief Complaint: General Illness Narrative Narrative: 36-year-old female presenting with nausea, vomiting, diarrhea, cough and shortness of breath. She states this has been going on for about a week. She denies any sick contacts. Patient previously diagnosed with COVID-19. She states she does not have a fever. She does admit to body aches. She states she does not have abdominal pain but more of cramping. [facility] Medical History Depression HTN (hypertension) Seizure disorder Seizures Type 2 diabetes mellitus Home Medications lisinopril [Prinivil] 20 mg PO QHS 12/28/18 [History Last Taken Unknown] escitalopram oxalate 20 mg PO DAILY 01/31/19 [History Last Taken Unknown] albuterol sulfate 1 - 2 puff INHALATION Q6H PRN PRN 08/13/19 [History Last Taken 08/13/19] metformin 500 mg PO BID 08/13/19 [History Last Taken Unknown] trazodone 150 mg PO QHS 08/13/19 [History Last Taken Unknown] diazepam [Valium] 5 mg PO TID PRN #15 tab 02/22/21 [Rx Last Taken Unknown] ketorolac 10 mg PO TID PRN 4 Days #12 tab 02/22/21 [Rx Last Taken Unknown] sulfamethoxazole-trimethoprim [Bactrim DS] 1 tab PO BID #14 tab 02/24/21 [Rx Last Taken Unknown] promethazine 25 mg PO Q6H PRN PRN #20 tablet 06/23/21 [Rx Last Taken Unknown] Allergy/AdvReac Type Severity Reaction Status Date / Time codeine phosphate Allergy Swelling Verified 06/23/21 14:46 [From Tylenol-Codeine #3] shellfish derived Allergy Swelling Verified 06/23/21 14:46 venom-honey bee Allergy Angioedema Verified 06/23/21 14:46 [bee venom (honey bee)] Family History Other Diabetes Heart disease Surgical History History of cholecystectomy Social History Smoking Status: Former smoker substance use type: does not use ROS ROS ED Constitutional Constitutional ED: Reports chills; Denies fever(s) or sweats Eyes Eyes: Denies blurry vision or diplopia ENT ENT ED: Reports rhinorrhea and sore throat Cardiovascular Cardiovascular: Reports palpitations and racing heartbeat Respiratory/Chest Respiratory/Chest: Reports cough and dyspnea Gastrointestinal Gastrointestinal: Reports diarrhea, nausea and vomiting Genitourinary Genitourinary ED: Denies dysuria or hematuria Musculoskeletal Musculoskeletal: Reports myalgias; Denies arthralgias or neck pain Integumentary Denies Abrasions or rash Neurologic Neurologic: Reports headache(s) EXAM Physical Exam Const Vital Signs: 06/23/21 14:44 06/23/21 17:38 06/23/21 17:39 Temperature 98.4 F Temperature Source Temporal Pulse Rate 130 H 122 H Respiratory Rate 16 18 Respiratory Pattern Normal Blood Pressure 121/88 H 142/97 H Blood Pressure Mean 99 112 Pulse Ox 97 100 Oxygen Delivery Method Room Air Room Air 06/23/21 17:56 06/23/21 21:00 06/23/21 22:00 Temperature Temperature Source Pulse Rate 109 H 91 79 Respiratory Rate 16 20 H 18 Respiratory Pattern Blood Pressure 116/96 H 124/99 H 115/83 H Blood Pressure Mean 102 107 Pulse Ox 98 97 97 Oxygen Delivery Method Room Air Room Air Positive well nourished General Appearance ED: NAD; Negative for pallor HEENT Reports moist mucous membranes Negative for trauma Eyes PERRL and EOMs intact bilaterally Resp normal respiratory effort and clear to auscultation bilaterally Cardio regular rate and regular rhythm GI normal to inspection, nondistended, normoactive bowel sounds Extremity normal to inspection General Extremety ED: Negative for edema or tenderness General Extremity: Negative for edema Neuro oriented x3 and CN's II-XII intact bilaterally Sensorium / Orientation: alert Psych mental status grossly normal Skin no rashes or lesions noted General Skin Exam: Negative for jaundice or pallor MDM MDM MDM Narrative Medical decision making narrative: Patient presenting with nausea, vomiting, diarrhea, shortness of breath. This has been present for about a week. Patient is already have COVID-19 pneumonitis. She is not complaining of any chest pain. Her initial heart rate was 130. She was not hypoxic or tachypneic. Patient was given IV fluids. Due to the shortness of breath I did obtain an EKG which on my interpretation EKG shows a sinus rhythm and 105 bpm without sign of ischemic changes as interpreted by myself. Urinalysis is negative for infection. Chest x-ray on my interpretation shows no acute cardiopulmonary process and the radiologist does agree. Patient has normal CBC and BMP with exception of elevated glucose of 252 without an anion gap. Her potassium was 3.4. Patient given IV fluids and Zofran and feels improved. I do not believe she needs other imaging at this time. Patient given prescription for nausea medicine for home. She is given return precautions. Impression: 1. Viral syndrome Lab Data Labs: Laboratory Results - last 24 hr 06/23/21 06/23/21 06/23/21 16:10 16:10 18:30 WBC 9.4 RBC 4.84 Hgb 13.9 Hct 40.0 MCV 82.6 MCH 28.7 MCHC 34.8 RDW Std Deviation 42.5 RDW Coeff of Caren 14.4 Plt Count 275 MPV 10.5 Immature Gran % (Auto) 1.500 H Neut % (Auto) 68.0 Lymph % (Auto) 23.0 [place] % (Auto) 5.9 Eos % (Auto) 1.0 Baso % (Auto) 0.6 Absolute Neuts (auto) 6.4 Absolute Lymphs (auto) 2.15 Nucleated RBC % 0 Sodium 136 Potassium 3.4 L Chloride 101 Carbon Dioxide 26.0 Anion Gap 9 BUN 8 Creatinine 0.97 Estim Creat Clear Calc 66.33 Est GFR (MDRD) Af Amer 83 Est GFR (MDRD) Non-Af 69 BUN/Creatinine Ratio 8.2 L Glucose 252 H Calcium 9.6 Troponin I High Sens Urine Color Yellow Urine Clarity Clear Urine pH 6.0 Ur Specific [place] 1.020 Urine Protein 15 H Urine Glucose (UA) 1000 H Urine Ketones 5 H Urine Occult Blood Negative Urine Nitrite Negative Urine Bilirubin Negative Urine Urobilinogen 1 H Ur Leukocyte Esterase 25 H Urine RBC 0 SEEN Urine WBC 0-5 SEEN Ur Squamous Epith Cells 0-5 SEEN Urine Bacteria RARE Urine Mucus 0 SEEN 06/23/21 19:15 WBC RBC Hgb Hct MCV MCH MCHC RDW Std Deviation RDW Coeff of Caren Plt Count MPV Immature Gran % (Auto) Neut % (Auto) Lymph % (Auto) [place] % (Auto) Eos % (Auto) Baso % (Auto) Absolute Neuts (auto) Absolute Lymphs (auto) Nucleated RBC % Sodium Potassium Chloride Carbon Dioxide Anion Gap BUN Creatinine Estim Creat Clear Calc Est GFR (MDRD) Af Amer Est GFR (MDRD) Non-Af BUN/Creatinine Ratio Glucose Calcium Troponin I High Sens 5 Urine Color Urine Clarity Urine pH Ur Specific [place] Urine Protein Urine Glucose (UA) Urine Ketones Urine Occult Blood Urine Nitrite Urine Bilirubin Urine Urobilinogen Ur Leukocyte Esterase Urine RBC Urine WBC Ur Squamous Epith Cells Urine Bacteria Urine Mucus Radiography Diagnostic Testing: Radiology Impression Chest X-Ray 06/23/21 16:18 IMPRESSION: Normal x-ray examination of the chest. Electronically Signed: Rodrick Lauren MD at 16:41 EDT Tel , Service support , Discharge Plan Triage Chief Complaint: General Illness ED Provider: Biju Morgan Dx/Rx/DC Orders Instructions: ED Vomiting and Diarrhea ... Prescriptions: New promethazine 25 mg tablet 25 mg PO Q6H PRN PRN (Reason: Nausea) Qty: 20 RF: 0 No Action lisinopril [Prinivil] 10 MG tablet 20 mg PO QHS RF: 0 escitalopram oxalate 20 MG tablet 20 mg PO DAILY RF: 0 metformin 500 MG tablet 500 mg PO BID RF: 0 trazodone 150 MG tablet 150 mg PO QHS RF: 0 albuterol sulfate 1 INHALER inhaler 1 - 2 puff inhalation Q6H PRN PRN (Reason: Asthma) RF: 0 diazepam [Valium] 5 mg tablet 5 mg PO TID PRN (Reason: muscle spasm) Qty: 15 RF: 0 ketorolac 10 mg tablet 10 mg PO TID PRN (Reason: pain) 4 Days Qty: 12 RF: 0 sulfamethoxazole-trimethoprim [Bactrim DS] 800-160 mg tablet 1 tab PO BID Qty: 14 RF: 0 Primary Care Provider: Kurt Brizuela Referrals: Kurt Brizuela MD [Primary Care Provider] - Disposition Disposition: Home, Self Care Discharge Date/Time: 06/23/21 22:03
--- NOTE | 2021-06-23 18:11 | EKG12_ITS ---
Test Reason : GENERAL ILLNESS Blood Pressure : / mmHG Vent. Rate : 105 BPM Atrial Rate : 105 BPM P-R Int : 150 ms QRS Dur : 074 ms QT Int : 356 ms P-R-T Axes : 022 -07 023 degrees QTc Int : 470 ms Sinus tachycardia Nonspecific T wave abnormality Confirmed by CORA JORDAN, BLANCA ([id number]), editorial project manager RIANNA AKBAR ([id number]) on 06/24/2021 1:10:26 PM Referred By: GENNY Confirmed By:BLANCA SHEPHERD MD
[2021-06-23 18:37] LABS: Mucous, Urine 0 SEEN /hpf (<or=2+); Red Blood Cells-Urine 0 SEEN /hpf (0-5)
[2021-06-23 18:52] LABS: Color, Urine Yellow (Yellow); Glucose, Dipstick 1000 mg/dl (Normal); Ketone-Dipstick 5 mg/dl (Negative); Leukocyte Esterase-Dipstick 25 /ul (Negative); Nitrite-Dipstick Negative (Negative); Occult Blood-Urine Negative /ul (Negative); Protein-Dipstick 15 mg/dl (Negative); Urine Bilirubin Dipstick Negative (Negative); Urine Clarity Clear (Clear); Urine Urobilinogen 1 mg/dl (Normal)
[2021-06-23 19:03] LABS: Squamous Epithelial Cells - UA 0-5 SEEN /hpf (5-10); White Blood Cells 0-5 SEEN /hpf (0-5)
[2021-06-23 19:04] LABS: Bacteria RARE /hpf (None Seen)
[2021-06-23 19:44] LABS: Troponin-I HS 5 pg/mL (3.0-54.0)
--- NOTE | 2021-06-23 20:43 | ED.RN ---
PT attempted to walk to . Nearly passed out at the door. Two RNs near her. Chair brought for her to sit in. Pt was shaky and nauseous. PT was able to use bedside commode. Pt was placed back into bed, monitor placed, PT placed in position of comfort with warm blanket. PTs RN aware.
[2021-06-23 21:00] VITALS: BP 124/99; PULSE 91; RESP 20; O2SAT 97
--- NOTE | 2021-06-23 21:03 | ED.RN ---
DR. LARA DISCUSSED COVID VACCINE WITH PT AND PT WILL WAIT UNTIL SHE IS NO LONGER SICK.
[2021-06-23 22:00] VITALS: BP 115/83; PULSE 79; RESP 18; O2SAT 97
--- NOTE | 2021-06-23 22:01 | ED.RN ---
THIS NURSE REVIEWED D/C INSTRUCTIONS WITH PT. PT VERBALIZED UNDERSTANDING OF INSTRUCTIONS. IV D/C. IV CATHETER INTACT. PT TOLERATED WELL. PT DENIES FURTHER NEEDS OR QUESTIONS AT THIS TIME. PT AMBULATES FROM ROOM ON OWN WITHOUT ASSISTANCE FROM STAFF
== END 2021-06-23 22:03 | disposition home or self-care (01) ==
PROVIDERS: Emergency Provider Student in an Organized Health Care Education/Training Program; PCP Family Medicine
DX: B34.9 Viral infection, unspecified (principal); I10 Essential (primary) hypertension; E11.9 Type 2 diabetes mellitus without complications; F32.9 Major depressive disorder, single episode, unspecified; Z87.01 Personal history of pneumonia (recurrent); Z79.84 Long term (current) use of oral hypoglycemic drugs; Z79.899 Other long term (current) drug therapy; Z86.16 Personal history of COVID-19; Z87.891 Personal history of nicotine dependence
CPT/HCPCS: 71045; 80048; 81001; 84484; 85025; 87426; 93005; 96361; 96374; 99283; J7030; A4216; J2405

== ENCOUNTER 2021-06-29 15:26 | Emergency (ER) | payer OTHER, MEDICARE, SELFPAY ==
[2021-06-29 15:27] VITALS: BP 153/110; BP 194/179; PULSE 128; PULSE 139; RESP 20; RESP 21; TEMP 36.6; O2SAT 97; O2SAT 99; BMI 34.3
[2021-06-29 15:37] VITALS: O2SAT 97
--- NOTE | 2021-06-29 15:54 | EKG12_ITS ---
Test Reason : SOB Blood Pressure : / mmHG Vent. Rate : 128 BPM Atrial Rate : 128 BPM P-R Int : 156 ms QRS Dur : 074 ms QT Int : 296 ms P-R-T Axes : 040 -03 071 degrees QTc Int : 432 ms Sinus tachycardia Inferior infarct , age undetermined Abnormal ECG Confirmed by HASMUKH JORDAN, ADELAIDE ([id number]), editorial clerk RIANNA AKBAR ([id number]) on 07/01/2021 1:17:48 PM Referred By: KOTA Confirmed By:MARCE NOE MD
[2021-06-29 16:15] LABS: Absolute Neutrophil Count 6.1 X10^3/uL (2.0-7.7); Basophil# 0.05 X10^3/uL; Basophil% 0.5 % (0-1); Eosinophil# 0.08 X10^3/uL; Eosinophils% 0.9 % (0-5); Hematocrit 44.5 % (37-47); Hemoglobin 15.3 g/dL (12.0-15.0); Lymphocyte % 23.9 % (19-41); Mean Corp Hgb Conc 34.4 g/dL (32-36); Mean Corpuscular Hgb 28.4 pg (27.0-32.0); Mean Corpuscular Volume 82.6 fL (81-99); Mean Platelet Vol. 10.4 fl (6.2-12.0); Monocyte# 0.63 X10^3/uL; Monocyte% 6.9 % (0-10); NRBC Flagged by Analyzer 0 % (0-5); Neutrophil % 66.4 % (47-70); Platelet Count 302 K/mm3 (150-450); RBC Distribution Width CV 14.7 % (11.6-14.6); RBC Distribution Width SD 42.5 fl (35.1-43.9); Red Blood Count 5.39 M/mm3 (4.2-5.4); White Blood Count 9.2 K/mm3 (4.4-11.0)
--- NOTE | 2021-06-29 16:18 | EDS_ITS ---
HPI History of Present Illness Chief Complaint: Shortness of Breath Informant: patient Onset/Context/Timing Onset: Weeks (3) Context: gradual Timing: Waxes and wanes Worsened by: Lying flat Relieved by: Nothing Narrative Narrative: Patient presents with shortness of breath that has been getting worse over the past 3 weeks. Patient states it has been waxing and waning. Patient states it is gradually getting worse. Patient states it is worse whenever she lays flat. Patient admits to some dizziness and lightheadedness along with that. Patient states she has pain under her right breast. Patient admits to a cough but denies any sputum production. Patient describes her pain as sharp. Patient admits to some subjective chills. PE Risk Factors: Negative for Cancer, OCP + Smoking + > 35, Prior DVT or PE and Recent surgery [facility] Medical History Depression HTN (hypertension) Seizure disorder Seizures Type 2 diabetes mellitus Home Medications lisinopril [Prinivil] 20 mg PO QHS 12/28/18 [History Last Taken Unknown] escitalopram oxalate 20 mg PO DAILY 01/31/19 [History Last Taken Unknown] albuterol sulfate 1 - 2 puff INHALATION Q6H PRN PRN 08/13/19 [History Last Taken 08/13/19] metformin 500 mg PO BID 08/13/19 [History Last Taken Unknown] trazodone 150 mg PO QHS 08/13/19 [History Last Taken Unknown] diazepam [Valium] 5 mg PO TID PRN #15 tab 02/22/21 [Rx Last Taken Unknown] promethazine 25 mg PO Q6H PRN PRN #20 tablet 06/23/21 [Rx Last Taken Unknown] Allergy/AdvReac Type Severity Reaction Status Date / Time codeine phosphate Allergy Swelling Verified 06/23/21 14:46 [From Tylenol-Codeine #3] shellfish derived Allergy Swelling Verified 06/23/21 14:46 venom-honey bee Allergy Angioedema Verified 06/23/21 14:46 [bee venom (honey bee)] Family History Other Diabetes Heart disease Surgical History History of cholecystectomy Social History Smoking Status: Former smoker substance use type: does not use ROS ROS ED Constitutional Constitutional ED: Reports chills; Denies fever(s) Eyes Eyes: Denies blurry vision or change in vision ENT ENT ED: Denies rhinorrhea or sore throat Cardiovascular Cardiovascular: Reports chest pain; Denies palpitations Respiratory/Chest Respiratory/Chest: Reports cough and dyspnea Gastrointestinal Gastrointestinal: Reports nausea; Denies vomiting Genitourinary Genitourinary ED: Denies dysuria or hematuria Musculoskeletal Musculoskeletal: Denies back pain or neck pain Integumentary Denies abscess or rash Neurologic Neurologic: Denies headache(s) or weakness Allergic/Immunologic Allergic/Immunologic ED: Denies mouth swelling or urticaria EXAM Physical Exam Const Vital Signs: 06/29/21 15:27 06/29/21 15:37 06/29/21 16:16 Temperature 97.8 F Temperature Source Temporal Pulse Rate 128 H Respiratory Rate 21 H Respiratory Effort Normal Respiratory Depth Normal Respiratory Pattern Normal Blood Pressure 194/179 H Blood Pressure Mean 184 Pulse Ox 97 Oxygen Delivery Method Room Air Room Air Nasal Cannula Oxygen Flow Rate (L/min) 2 2 06/29/21 16:35 06/29/21 19:50 Temperature Temperature Source Pulse Rate 80 109 H Respiratory Rate 18 18 Respiratory Effort Respiratory Depth Respiratory Pattern Blood Pressure 109/67 93/77 Blood Pressure Mean 81 82 Pulse Ox 100 Oxygen Delivery Method Nasal Cannula Nasal Cannula Oxygen Flow Rate (L/min) 2 2 Positive well nourished, well developed and obese General Appearance ED: well developed Nutritional Appearance: obese HEENT Reports moist mucous membranes Neck supple and no JVD Chest Wall Chest: other There is tenderness over the right costal margin and right lower chest. Resp normal respiratory effort and clear to auscultation bilaterally Cardio regular rhythm and no murmurs Rate: tachycardic GI normal to inspection, nondistended, normoactive bowel sounds, non-tender and non-distended Auscultation: normoactive bowel sounds Palpation: soft Extremity normal to inspection General Extremety ED: Negative for edema or tenderness General Extremity: Negative for edema Neuro oriented x3, CN's II-XII intact bilaterally and no sensory deficits noted Sensorium / Orientation: alert Motor Exam: strength 5/5 throughout Psych mental status grossly normal Skin no rashes or lesions noted MDM MDM MDM Narrative Medical decision making narrative: EKG was obtained. On my interpretation, it showed a sinus tachycardia with a rate of 128. ND interval, QRS interval, and QTc intervals were all normal. [place] was normal. There are no acute ST or T wave changes. CBC and basic metabolic profile were within normal limits. High- sensitivity troponin was normal. CTA of the chest was obtained. There is no acute pulmonary embolism. There is diffuse groundglass opacities with trace of pericardial effusion concerning for volume overload. This was interpreted by the radiologist and reviewed by myself. Because of this, BNP was ordered and was negative. COVID-19 rapid antigen was obtained and was negative. Patient was given aspirin here. Patient is feeling better on reevaluation. Patient was instructed to follow-up with her primary care physician in 3 to 5 days. Patient understood and was agreeable with the plan. All questions were answered. Lab Data Attestation: I reviewed the patient's lab results. Labs: Laboratory Results - last 24 hr 06/29/21 06/29/21 06/29/21 13:55 13:55 13:55 WBC 9.2 RBC 5.39 Hgb 15.3 H Hct 44.5 MCV 82.6 MCH 28.4 MCHC 34.4 RDW Std Deviation 42.5 RDW Coeff of Caren 14.7 H Plt Count 302 MPV 10.4 Immature Gran % (Auto) 1.400 H Neut % (Auto) 66.4 Lymph % (Auto) 23.9 [place] % (Auto) 6.9 Eos % (Auto) 0.9 Baso % (Auto) 0.5 Absolute Neuts (auto) 6.1 Absolute Lymphs (auto) 2.20 Nucleated RBC % 0 Sodium 132 L Potassium 3.7 Chloride 97 L Carbon Dioxide 26.0 Anion Gap 9 BUN 14 Creatinine 1.11 H Estim Creat Clear Calc 57.96 Est GFR (MDRD) Af Amer 71 Est GFR (MDRD) Non-Af 59 L BUN/Creatinine Ratio 12.6 Glucose 236 H Calcium 9.8 Troponin I High Sens 4 B-Natriuretic Peptide < 2.0 Radiography Diagnostic Testing: Radiology Impression Chest CTA 06/29/21 16:42 IMPRESSION: No evidence of acute pulmonary emboli to segmental level. Diffuse groundglass opacities with trace pericardial effusion concerning for volume overload. Electronically Signed: Kirk Pinto MD at 17:28 EDT Tel , Service support , EKG Initial EKG: Attestation: I personally reviewed and interpreted this EKG as follows: Interpretation: No Acute Injury Pattern and Sinus Tachycardia (128) Prior EKG tracings: available for review Prior: Unchanged (06/23/2021) Discharge Plan Triage Chief Complaint: Shortness of Breath ED Provider: Shayan Marx Dx/Rx/DC Orders Clinical Impression: Viral illness Instructions: ED Viral Syndrome (Adult) Prescriptions: No Action lisinopril [Prinivil] 10 MG tablet 20 mg PO QHS RF: 0 escitalopram oxalate 20 MG tablet 20 mg PO DAILY RF: 0 metformin 500 MG tablet 500 mg PO BID RF: 0 trazodone 150 MG tablet 150 mg PO QHS RF: 0 albuterol sulfate 1 INHALER inhaler 1 - 2 puff inhalation Q6H PRN PRN (Reason: Asthma) RF: 0 diazepam [Valium] 5 mg tablet 5 mg PO TID PRN (Reason: muscle spasm) Qty: 15 RF: 0 promethazine 25 mg tablet 25 mg PO Q6H PRN PRN (Reason: Nausea) Qty: 20 RF: 0 Primary Care Provider: Kurt Brizuela Referrals: Kurt Brizuela MD [Primary Care Provider] - 3-5 Days Disposition Disposition: Home, Self Care
[2021-06-29] MEDS: Aspirin 81 MG TAB.CHEW 324 MG PO (16:20)
[2021-06-29 16:32] LABS: Anion Gap 9 (5-15); BUN 14 mg/dL (7-18); BUN/Creat Ratio 12.6 RATIO (10-20); Calcium,Total 9.8 mg/dL (8.5-10.1); Chloride 97 mmol/L (98-107); Creatinine, Serum 1.11 mg/dL (0.55-1.02); EST Glomerular Filtration Rate 59 mL/min (>60); Est Glom Filt Rate - Afr Amer 71 mL/min (>60); Estimated Creatinine Clearance 57.96 ml/min; Glucose 236 mg/dL (74-106); Potassium 3.7 mmol/L (3.5-5.1); Sodium Level 132 mmol/L (136-145); Troponin-I HS 4 pg/mL (3.0-54.0)
[2021-06-29 16:35] VITALS: BP 109/67; PULSE 80; RESP 18; O2SAT 100
--- NOTE | 2021-06-29 16:42 | CT_ITS ---
INDICATION: PE EXAMINATION: CTA Chest WO/W Contrast Injection TECHNIQUE: Helically acquired images were obtained of the chest following administration of IV contrast. A radiation dose optimization technique was used for this scan. 3D postprocessing images including MIPS were reviewed. IV Contrast dosage and agent: IV 100mL [id number] COMPARISON: 02/12/2021. FINDINGS: Lungs: Diffuse groundglass opacities. Mediastinum: The cardiomediastinal silhouette is not enlarged. Trace pericardial effusion. No mediastinal, hilar or axillary adenopathy. The thoracic aorta is unremarkable. No obvious filling defect seen within the visualized pulmonary arteries. Pleura: Unremarkable Bones/Soft tissues: No suspicious osseous or soft tissue lesions Upper abdomen: No visualized abnormalities in the upper abdomen. CT/CTA Chest W/WO Contrast IMPRESSION: No evidence of acute pulmonary emboli to segmental level. Diffuse groundglass opacities with trace pericardial effusion concerning for volume overload. Electronically Signed: Kirk Pinto MD at 17:28 EDT Tel , Service support ,
[2021-06-29 19:19] LABS: BNP,B-Type NATRIURETIC PEPTIDE < 2.0 pg/mL (0-100)
[2021-06-29 19:50] VITALS: BP 93/77; PULSE 109; RESP 18
[2021-06-29 21:22] VITALS: BP 99/75; PULSE 137; RESP 14
[2021-06-29 21:58] VITALS: BP 99/75; PULSE 118; RESP 20
== END 2021-06-29 22:13 | disposition home or self-care (01) ==
PROVIDERS: Emergency Provider Emergency Medicine; PCP Family Medicine
DX: B34.9 Viral infection, unspecified (principal); I10 Essential (primary) hypertension; E11.9 Type 2 diabetes mellitus without complications; F32.9 Major depressive disorder, single episode, unspecified; G40.909 Epilepsy, unspecified, not intractable, without status epilepticus; E66.9 Obesity, unspecified; Z68.34 Body mass index [BMI] 34.0-34.9, adult; Z79.84 Long term (current) use of oral hypoglycemic drugs; Z79.899 Other long term (current) drug therapy; Z87.891 Personal history of nicotine dependence
CPT/HCPCS: 71275; 80048; 83880; 84484; 85025; 87426; 93005; 99285; Q9967; A4216

== ENCOUNTER → 2021-08-18 09:33 | Outpatient (CLI) | payer OTHER, MEDICARE, SELFPAY | PROVIDERS: PCP Family Medicine; Referring Provider Internal Medicine Cardiovascular Disease; Visit Provider Internal Medicine Cardiovascular Disease | DX: R42 Dizziness and giddiness (principal); R55 Syncope and collapse | CPT/HCPCS: 93225; 93226 ==

== ENCOUNTER → 2021-08-22 08:19 | Outpatient (CLI) | payer OTHER, MEDICARE, SELFPAY ==
--- NOTE | 2021-08-22 08:21 | ECHOCS_ITS ---
Reason For Study: Syncope/Near Syncope Procedure This was a 2D Doppler, Color Flow transthoracic echocardiogram. Contrast injection was performed. Exam performed in department. Left Ventricle Normal LV size. Left ventricular systolic function is normal. The estimated ejection fraction is 55 %. Normal diastology for age. No regional wall motion abnormalities noted. Right Ventricle Normal RV size. Normal systolic function. Atria Normal left atrium. Normal right atrium. Mitral Valve Normal mitral valve. Tricuspid Valve Normal tricuspid valve. Mild tricuspid valve insufficiency. Aortic Valve Normal aortic valve. Trisinus/trileaflet aortic valve. Pulmonic Valve Normal pulmonic valve. Great Vessels Normal aortic root. The pulmonary artery is normal size. Normal inferior vena cava. Pericardium/Pleural No pericardial effusion. Medication Diluted definity 2ml given slow IV push to enhance endocardial definition. MMode/2D Measurements & Calculations LVIDd: 4.5 cm IVSd: 1.0 cm Ao root diam: 2.8 cm LVIDs: 3.0 cm LVPWd: 0.94 cm RVDd: 2.4 cm FS: 33.0 % LAV(MOD-bp): 19.0 ml LVAd ap4: 23.3 cm2 SV(MOD-sp4): 35.9 ml LAV(MOD-bp) Indexed: 9.8 ml/m2 LVLd ap4: 7.0 cm LAV(MOD-sp2): 15.9 ml EDV(MOD-sp4): 64.2 ml LAV(MOD-sp4): 18.0 ml EDV(sp4-el): 66.0 ml LVAs ap4: 13.6 cm2 LVLs ap4: 5.8 cm ESV(MOD-sp4): 28.3 ml ESV(sp4-el): 27.1 ml EF(MOD-sp4): 55.9 % EF(sp4-el): 58.9 % SV(sp4-el): 38.9 ml LA A4 area: 10.2 cm2 LA dimension(2D): 3.2 cm RA A4 area: 8.7 cm2 Doppler Measurements & Calculations MV E max dewey: 65.3 cm/sec Lat Peak E' Dewey: 7.0 cm/sec Med Peak E' Dewey: 5.6 cm/sec MV A max dewey: 80.8 cm/sec E/E' lat: 9.3 E/E' med: 11.8 MV E/A: 0.81 Ao V2 max: 111.6 cm/sec LV V1 max: 98.5 cm/sec TR max dewey: 180.1 cm/sec Ao max P.0 mmHg LV V1 max P.9 mmHg TR max P.0 mmHg Ao V2 mean: 82.3 cm/sec Ao mean P.9 mmHg Ao V2 VTI: 17.2 cm ECHO/Echo Complete W/ Contrast Interpretation Summary Normal LV size. Left ventricular systolic function is normal. The estimated ejection fraction is 55 %. Mild tricuspid valve insufficiency. Normal diastology for age. Ordering Physician: Preet Mckeon Referring Physician: Kurt Brizuela Performed By: Suzie Nicholson, CARRIE, RVT
== END ==
PROVIDERS: PCP Family Medicine; Referring Provider Internal Medicine Cardiovascular Disease; Visit Provider Internal Medicine Cardiovascular Disease
DX: R55 Syncope and collapse (principal)
CPT/HCPCS: 93306; Q9957; A4216; C8929

== ENCOUNTER 2021-09-16 23:40 | Emergency (ER) | payer OTHER, MEDICARE, SELFPAY ==
[2021-09-16 23:41] VITALS: BP 141/106; PULSE 120; RESP 16; TEMP 36.6; O2SAT 98; BMI 34.7
[2021-09-17 00:15] VITALS: BP 141/98; PULSE 98; RESP 20; O2SAT 97
[2021-09-17] MEDS: Ondansetron 4 MG/2 ML Vial IV (00:16)
[2021-09-17] MEDS: 0.9% Normal Saline 1,000 ML 1000 ML IV (00:16)
[2021-09-17] MEDS: Ketorolac 15 MG/ML Vial IV (00:19)
[2021-09-17 00:22] LABS: Absolute Neutrophil Count 6.7 X10^3/uL (2.0-7.7); Basophil# 0.04 X10^3/uL; Basophil% 0.4 % (0-1); Eosinophil# 0.26 X10^3/uL; Eosinophils% 2.4 % (0-5); Hematocrit 37.9 % (37-47); Hemoglobin 13.3 g/dL (12.0-15.0); Lymphocyte % 26.6 % (19-41); Mean Corp Hgb Conc 35.1 g/dL (32-36); Mean Corpuscular Hgb 30.3 pg (27.0-32.0); Mean Corpuscular Volume 86.3 fL (81-99); Mean Platelet Vol. 10.8 fl (6.2-12.0); Monocyte# 0.85 X10^3/uL; Monocyte% 7.8 % (0-10); NRBC Flagged by Analyzer 0 % (0-5); Neutrophil % 61.5 % (47-70); Platelet Count 330 K/mm3 (150-450); RBC Distribution Width CV 17.1 % (11.6-14.6); RBC Distribution Width SD 52.1 fl (35.1-43.9); Red Blood Count 4.39 M/mm3 (4.2-5.4); White Blood Count 10.9 K/mm3 (4.4-11.0)
[2021-09-17 00:28] VITALS: BP 141/98; PULSE 98; RESP 20; TEMP 36.6; O2SAT 97
--- NOTE | 2021-09-17 00:28 | EX.ED.GENINJ ---
HPI History of Present Illness Chief Complaint: Nausea/Vomiting/Diarrhea Informant: patient Narrative Narrative: Presents with Covid symptoms. Symptoms started 2 days ago. Reports vomiting diarrhea myalgias today headache and cough. Nonbloody vomiting or diarrhea. 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 She is nonvaccinated. She states there is some changes in smell. Normal taste. Denies fevers. Took Tylenol this morning. History of asthma and seizure disorder. Denies any dyspnea. Currently nauseated. Denies any recent antibiotics. Prior similar symptoms: No PFSH PFSH Medical History Asthma Cervical paraspinal muscle spasm COVID-19 virus detected (02/12/21) Depression Dyslexia Dysthymic disorder Essential hypertension History of gestational diabetes History of syncope (08/2013) Hypotension Migraine Seizure disorder Seizures Type 2 diabetes mellitus Urinary tract infection Home Medications albuterol sulfate 90 mcg/actuation aerosol inhaler 2 puff INHALATION Q4H PRN g 07/29/21 [History Last Taken Unknown] brexpiprazole 1 mg tablet 1.5 mg PO DAILY tab 07/29/21 [History Last Taken Unknown] buspirone 10 mg tablet 10 mg PO BID tab 07/29/21 [History Last Taken Unknown] medroxyprogesterone 10 mg tablet 10 mg PO ONCE PRN tab 07/29/21 [History Last Taken Unknown] paroxetine HCl 40 mg tablet 40 mg PO DAILY tab 08/02/21 [History Last Taken Unknown] dulaglutide 0.75 mg/0.5 mL subcutaneous pen injector 0.75 mg SUBCUT QWEEK ml 08/30/21 [History Last Taken Unknown] fludrocortisone 0.1 mg tablet 0.1 mg PO DAILY #30 tab 08/31/21 [Rx Last Taken Unknown] prochlorperazine maleate [Compazine] 5 mg PO TID PRN #10 tab 09/17/21 [Rx Last Taken Unknown] Allergy/AdvReac Type Severity Reaction Status Date / Time amoxicillin [From Augmentin] Allergy Unknown unknown Verified 09/16/21 23:45 clavulanic acid Allergy Unknown unknown Verified 09/16/21 23:45 [From Augmentin] codeine phosphate Allergy Swelling Verified 09/16/21 23:45 [From Tylenol-Codeine #3] shellfish derived Allergy Swelling Verified 09/16/21 23:45 venom-honey bee Allergy Angioedema Verified 09/16/21 23:45 [bee venom (honey bee)] Family History Mother Asthma Hypertension Breast cancer Diabetes Father Diabetes Hypertension Hyperlipidemia Grandmother Myocardial infarction Grandfather Cancer Lung Grandfather Cancer Throat Aunt Breast cancer Surgical History History of History of cholecystectomy History of tubal ligation History of umbilical hernia repair Social History Smoking Status: Former smoker how long ago did patient quit smokin years ago alcohol intake: never substance use type: does not use ROS ROS ED Constitutional Constitutional ED: Denies chills, fever(s) or sweats Eyes Eyes: Denies change in vision ENT ENT ED: Denies dysphagia or sore throat Cardiovascular Cardiovascular: Denies chest pain, leg edema, palpitations or racing heartbeat Respiratory/Chest Respiratory/Chest: Reports cough; Denies dyspnea or dyspnea on exertion Gastrointestinal Gastrointestinal: Reports diarrhea, nausea and vomiting; Denies abdominal pain Genitourinary Genitourinary ED: Denies dysuria, hematuria or urinary frequency Musculoskeletal Musculoskeletal: Reports myalgias; Denies back pain, extremity pain or neck pain Integumentary Denies rash or wounds Neurologic Neurologic: Reports headache(s); Denies paresthesias or weakness EXAM Physical Exam Const Vital Signs: 09/16/21 23:41 09/17/21 00:15 09/17/21 00:28 Temperature 97.8 F 97.8 F Temperature Source Temporal Temporal Pulse Rate 120 H 98 98 Respiratory Rate 16 20 H 20 H Blood Pressure 141/106 H 141/98 H 141/98 H Blood Pressure Mean 117 112 112 Pulse Ox 98 97 97 Oxygen Delivery Method Room Air Room Air Room Air 09/17/21 01:22 Temperature 98.1 F Temperature Source Temporal Pulse Rate 98 Respiratory Rate 18 Blood Pressure 118/81 H Blood Pressure Mean 93 Pulse Ox 98 Oxygen Delivery Method Room Air Positive well nourished and well developed General Appearance ED: well developed and NAD HEENT Reports moist mucous membranes HEENT Narrative: Mild dry mucosal membranes. normocephalic and atraumatic Eyes PERRL, EOMs intact bilaterally and conjunctivae normal General Eye ED: Yes normal appearance of both eyes Neck no lymphadenopathy and supple General: Negative for tenderness Chest Wall Chest: Negative for tenderness Resp normal respiratory effort and normal air movement Effort and Inspection: symmetric chest movement; Negative for respiratory distress Cardio regular rate, regular rhythm and no murmurs Rate: tachycardic Peripheral Pulses: pulses 2+ throughout GI normal to inspection, nondistended, normoactive bowel sounds and non-tender GI Narrative: Negative Hernandez's or McBurney's tenderness. Palpation: Negative for guarding or rebound tenderness present Back/Spine no CVA tenderness and no thoracic nor lumbar tenderness Extremity normal to inspection General Extremety ED: Negative for edema or tenderness General Extremity: Negative for edema Neuro oriented x3 and no sensory deficits noted Sensorium / Orientation: awake and alert Skin no rashes or lesions noted and no wounds MDM MDM MDM Narrative Medical decision making narrative: Patient tachycardic on arrival. Mild dry mucosal membranes. IV fluids given. She had a nonsurgical abdomen. System downtime with laboratory studies. Results reviewed from paper White count normal at 10.9. Electrolytes are normal creatinine 1.03. Mag 2.2. Potassium 3.5. Anion gap is 9. CRP elevated 8.55. Rapid Covid testing was negative. She clinical progressive symptoms over 2 days concerning for Covid. I did send for PCR which is pending. Heart rate improved with IV fluids. Initially given Zofran additional Compazine with improvement of nausea. She is tolerating oral intake. Return precautions discussed. Continue oral fluids at home. Prescription for Compazine to use as needed. All questions answered. Patient is being discharged under pandemic conditions under declared global, national and state disaster activation, with limited medical resources. Patient and community understands this. Results discussed in layman's terms to the patient satisfaction. All questions answered in layman's terms. Patient understands importance of follow-up care as directed. Patient has been instructed to return to the ED immediately if new symptoms, problems, or questions occur. We mutually agree with the plan of disposition. The patient understand that they may call or return with any questions or concerns at any time. PCR Covid later did return negative. Lab Data Attestation: I reviewed the patient's lab results. Labs: Laboratory Results - last 24 hr 09/17/21 09/17/21 09/17/21 00:00 00:00 00:00 WBC 10.9 RBC 4.39 Hgb 13.3 Hct 37.9 MCV 86.3 MCH 30.3 MCHC 35.1 RDW Std Deviation 52.1 H RDW Coeff of Caren 17.1 H Plt Count 330 MPV 10.8 Immature Gran % (Auto) 1.300 H Neut % (Auto) 61.5 Lymph % (Auto) 26.6 [place] % (Auto) 7.8 Eos % (Auto) 2.4 Baso % (Auto) 0.4 Absolute Neuts (auto) 6.7 Absolute Lymphs (auto) 2.90 Nucleated RBC % 0 Sodium 137 Potassium 3.5 Chloride 98 Carbon Dioxide 30.0 Anion Gap 9 BUN 11 Creatinine 1.03 H Estim Creat Clear Calc 62.46 Est GFR (MDRD) Af Amer 78 Est GFR (MDRD) Non-Af 64 BUN/Creatinine Ratio 10.7 Glucose 159 H Calcium 9.9 Magnesium 2.2 Total Bilirubin 1.30 H AST 33 ALT 41 Alkaline Phosphatase 81 C-React Prot High Sens 8.55 H Total Protein 7.7 Albumin 4.3 Globulin 3.4 Albumin/Globulin Ratio 1.3 Serum , Qual NEGATIVE COVID-19 (TAMMY) 09/17/21 01:15 WBC RBC Hgb Hct MCV MCH MCHC RDW Std Deviation RDW Coeff of Caren Plt Count MPV Immature Gran % (Auto) Neut % (Auto) Lymph % (Auto) [place] % (Auto) Eos % (Auto) Baso % (Auto) Absolute Neuts (auto) Absolute Lymphs (auto) Nucleated RBC % Sodium Potassium Chloride Carbon Dioxide Anion Gap BUN Creatinine Estim Creat Clear Calc Est GFR (MDRD) Af Amer Est GFR (MDRD) Non-Af BUN/Creatinine Ratio Glucose Calcium Magnesium Total Bilirubin AST ALT Alkaline Phosphatase C-React Prot High Sens Total Protein Albumin Globulin Albumin/Globulin Ratio Serum , Qual COVID-19 (TAMMY) Negative Discharge Plan Triage Chief Complaint: Nausea/Vomiting/Diarrhea ED Provider: Tai Lowery Dx/Rx/DC Orders Clinical Impression: Nausea vomiting and diarrhea, Dehydration, Acute viral syndrome Instructions: ED Dehydration (Adult), ED Vomiting and Diarrhea ... Prescriptions: New prochlorperazine maleate [Compazine] 5 mg tablet 5 mg PO TID PRN (Reason: nausea and vomiting) Qty: 10 RF: 0 No Action paroxetine HCl 40 mg tablet 40 mg PO DAILY RF: 0 Rexulti 1 mg tablet 1.5 mg PO DAILY RF: 0 buspirone 10 mg tablet 10 mg PO BID RF: 0 medroxyprogesterone 10 mg tablet 10 mg PO ONCE PRNRF: 0 Trulicity 0.75 mg/0.5 mL pen injector 0.75 mg subcut QWEEK RF: 0 albuterol sulfate 90 mcg/actuation HFA aerosol inhaler 2 puff inhalation Q4H PRN (Reason: Asthma) RF: 0 fludrocortisone 0.1 mg tablet 0.1 mg PO DAILY Qty: 30 RF: 11 Primary Care Provider: Kurt Brizuela Referrals: Kurt Brizuela MD [Primary Care Provider] - 3-5 Days if not improving Activity Restrictions/Additional Instructions: Rapid Covid test negative. PCR testing is pending. Labs are stable. Continue oral fluids at home. Return if any worsening symptoms. Disposition Disposition: Home, Self Care Discharge Date/Time: 09/17/21 02:09
[2021-09-17 00:29] LABS: Internal QC Validated? YES +Cl - CLEAR BKGD; Pregnancy, Serum, hCG Quali. NEGATIVE Negative
[2021-09-17 00:43] LABS: ALB/GLOB Ratio 1.3 RATIO (0.9-2.4); AST(SGOT) 33 U/L (15-37); Alanine Aminotransfer ALT/SGPT 41 U/L (13-56); Albumin, Serum 4.3 g/dL (3.2-5.0); Alkaline Phosphatase 81 U/L (45-117); Anion Gap 9 (5-15); BUN 11 mg/dL (7-18); BUN/Creat Ratio 10.7 RATIO (10-20); Calcium,Total 9.9 mg/dL (8.5-10.1); Chloride 98 mmol/L (98-107); Creatinine, Serum 1.03 mg/dL (0.55-1.02); EST Glomerular Filtration Rate 64 mL/min (>60); Est Glom Filt Rate - Afr Amer 78 mL/min (>60); Estimated Creatinine Clearance 62.46 ml/min; Globulin 3.4 g/dL (2.2-4.2); Glucose 159 mg/dL (74-106); Magnesium 2.2 mg/dL (1.6-2.6); Potassium 3.5 mmol/L (3.5-5.1); Protein, Total 7.7 g/dL (6.4-8.2); Sodium Level 137 mmol/L (136-145)
[2021-09-17 01:22] VITALS: BP 118/81; PULSE 98; RESP 18; TEMP 36.7; O2SAT 98
--- NOTE | 2021-09-17 01:24 | ED.RN ---
5mh IV compazine given to patient IV and flushed easily. Tolerated well. IV NS finished infusing
--- NOTE | 2021-09-17 01:51 | ED.RN ---
reports doing better after nausea medication with nausea and pain. She is taking PO challenge with cup of water now. Will monitor and out up for re-eval by Dr Lowery.
[2021-09-17 01:58] LABS: CRP, High Sensitivity Cardiac 8.55 mg/L
[2021-09-17 02:28] LABS: Probe Check PASS; Specimen Processing Control PASS
== END 2021-09-17 02:09 | disposition home or self-care (01) ==
PROVIDERS: Emergency Provider Emergency Medicine; PCP Family Medicine
DX: B34.9 Viral infection, unspecified (principal); E86.0 Dehydration; I10 Essential (primary) hypertension; E11.9 Type 2 diabetes mellitus without complications; J45.909 Unspecified asthma, uncomplicated; F32.A Depression, unspecified; Z20.822 Contact with and (suspected) exposure to COVID-19; Z79.899 Other long term (current) drug therapy; Z87.891 Personal history of nicotine dependence
CPT/HCPCS: 80053; 83735; 84703; 85025; 86141; 87426; 87635; 96361; 96374; 96375; 99284; J7030; U0005; A4216; J2405; U0003

== ENCOUNTER → 2022-10-20 | Outpatient (CLI) | payer OTHER, MEDICARE, SELFPAY | END | disposition home or self-care (01) | PROVIDERS: PCP Family Medicine; Visit Provider Physician Assistant Medical | DX: R00.1 Bradycardia, unspecified (principal); R00.0 Tachycardia, unspecified; R42 Dizziness and giddiness | CPT/HCPCS: 93225; 93226 ==

== ENCOUNTER → 2022-11-28 | Outpatient (CLI) | payer OTHER, MEDICARE, SELFPAY ==
[2022-11-28 09:37] LABS: Hematocrit 39.4 % (37-47); Hemoglobin 13.6 g/dL (12.0-15.0); Mean Corp Hgb Conc 34.5 g/dL (32-36); Mean Corpuscular Hgb 28.7 pg (27.0-32.0); Mean Corpuscular Volume 83.1 fL (81-99); Mean Platelet Vol. 10.3 fl (6.2-12.0); Platelet Count 218 K/mm3 (150-450); RBC Distribution Width CV 13.2 % (11.6-14.6); RBC Distribution Width SD 41.1 fl (35.1-43.9); Red Blood Count 4.74 M/mm3 (4.2-5.4); White Blood Count 6.4 K/mm3 (4.4-11.0)
[2022-11-28 09:51] LABS: Anion Gap 8 (5-15); BUN 10 mg/dL (7-18); BUN/Creat Ratio 11.4 RATIO (10-20); Calcium,Total 9.1 mg/dL (8.5-10.1); Chloride 102 mmol/L (98-107); Creatinine, Serum 0.88 mg/dL (0.55-1.02); EST Glomerular Filtration Rate 77 mL/min (>60); Est Glom Filt Rate - Afr Amer 93 mL/min (>60); Glucose 290 mg/dL (74-106); Sodium Level 135 mmol/L (136-145)
--- NOTE | 2022-11-29 06:56 | TILTTABLE_ITS ---
Staff Staff: Dina Clark and Suzie Ness Summary Pre Test Resting HR: 79 Pre Test Resting BP: 118/83 Minimum Test HR: 79 Maximum Test HR: 139 Minimum Test BP: 0/0 Maximum Test BP: 131/92 Reason for Test Termination: Syncope Physician Tilt Table Report Patient's Physicians Primary Care Physician: Nazanin PhysicianEarline [employer] Organizer: Preet Mckeon Indications/Diagnosis: Dizziness. Procedure Comments: The patient was brought to the noninvasive lab in the postabsorptive nonsedated state. Informed consent was obtained. The patient was then placed supine and an EKG and heart rate were obtained. The patient was then put in the 70 degree head upright tilt position. The patient was observed for approximately 20 minutes and vitals were obtained. The patient did not exhibit any symptomatology other than mild clamminess. Heart rate and blood pressure remained stable. The patient was then put back in the recumbent position and administered sublingual nitroglycerin. This was at 10:03 AM. The heart rate went up to 139 bpm and blood pressure dropped patient became quite pale and clammy and exhibited palpitations and passed out briefly. The patient was then put back in the recumbent position. Vitals obtained demonstrated heart rate of 91 bpm and blood pressure of 108/63. The final blood pressure was 132/75. Summary: Abnormal tilt table test with evidence of orthostatic hypotension.
[2022-11-29 07:01] VITALS: BP 0/0; BP 118/83; BP 131/92
== END | disposition home or self-care (01) ==
PROVIDERS: Referring Provider Physician Assistant Medical; Visit Provider Physician Assistant Medical
DX: R00.0 Tachycardia, unspecified (principal); R00.1 Bradycardia, unspecified; R42 Dizziness and giddiness; R06.02 Shortness of breath; I95.9 Hypotension, unspecified; Z87.898 Personal history of other specified conditions
CPT/HCPCS: 36415; 80048; 85027; 93660; J7040; A4216

== ENCOUNTER → 2022-12-18 | Outpatient (CLI) | payer OTHER, MEDICARE, SELFPAY ==
[2022-12-18 16:17] LABS: Anion Gap 8 (5-15); BUN 6 mg/dL (7-18); BUN/Creat Ratio 7.4 RATIO (10-20); Calcium,Total 8.9 mg/dL (8.5-10.1); Chloride 104 mmol/L (98-107); Creatinine, Serum 0.81 mg/dL (0.55-1.02); EST Glomerular Filtration Rate 84 mL/min (>60); Est Glom Filt Rate - Afr Amer 101 mL/min (>60); Glucose 201 mg/dL (74-106); Potassium 3.6 mmol/L (3.5-5.1); Sodium Level 138 mmol/L (136-145)
== END | disposition home or self-care (01) ==
PROVIDERS: Referring Provider Nurse Practitioner Gerontology; Visit Provider Nurse Practitioner Gerontology
DX: R06.09 Other forms of dyspnea (principal)
CPT/HCPCS: 36415; 80048; 83880

== ENCOUNTER 2022-12-26 14:55 | Outpatient (CLI) | payer OTHER, MEDICARE, SELFPAY ==
--- NOTE | 2022-12-26 14:58 | ECHOD_ITS ---
Reason For Study: DYSPNEA Procedure This was a 2D Doppler, Color Flow transthoracic echocardiogram. Exam performed in department. PT taken to ED as she became in responsive at 3:24pm. Seizure activity was noted and staff assist was called. PT was unresponsive and seizing for upto 10 min. PT C/O headache and was lightheaded. PT taken to ED for eval after finishing the echo. Left Ventricle Normal LV size. Mild concentric left ventricular hypertrophy. Left ventricular systolic function is normal. The estimated ejection fraction is 55 %. Stage 1 diastolic dysfunction. No regional wall motion abnormalities noted. Right Ventricle Normal RV size. Normal systolic function. Mitral Valve Bileaflet diffuse mitral valve thickening. Mild (1+) eccentric mitral valve insufficiency. Aortic Valve Trisinus/trileaflet aortic valve. Pulmonic Valve Normal pulmonic valve. Great Vessels Normal aortic root. The pulmonary artery is normal size. Normal inferior vena cava. Pericardium/Pleural No pericardial effusion. MMode/2D Measurements & Calculations LVIDd: 4.8 cm IVSd: 1.3 cm Ao root diam: 3.3 cm LVIDs: 3.1 cm LVPWd: 1.3 cm RVDd: 2.6 cm FS: 36.8 % LAV(MOD-bp): 38.5 ml LA dimension(2D): 3.7 cm LA A4 area: 14.8 cm2 LAV(MOD-bp) Indexed: 19.5 ml/m2 LAV(MOD-sp2): 40.3 ml LAV(MOD-sp4): 36.3 ml RA A4 area: 11.2 cm2 Time Measurements MV dec time: 0.19 sec Doppler Measurements & Calculations MV E max dewey: 52.1 cm/sec Lat Peak E' Dewey: 8.3 cm/sec Med Peak E' Dewey: 7.6 cm/sec MV A max dewey: 64.6 cm/sec E/E' lat: 6.3 E/E' med: 6.8 MV E/A: 0.81 Ao V2 max: 108.6 cm/sec LV V1 max: 84.2 cm/sec MV dec slope: 278.5 cm/sec2 Ao max P.7 mmHg LV V1 max P.8 mmHg Ao V2 mean: 81.1 cm/sec LV V1 mean P.8 mmHg Ao mean P.9 mmHg LV V1 mean: 65.3 cm/sec Ao V2 VTI: 19.9 cm LV V1 VTI: 13.7 cm AV (velocity ratio): 0.69 PA V2 max: 77.1 cm/sec ECHO/Echo Complete Interpretation Summary Normal LV size. Left ventricular systolic function is normal. The estimated ejection fraction is 55 %. Mild concentric left ventricular hypertrophy. Stage 1 diastolic dysfunction. Ordering Physician: Inocencia Edwards Referring Physician: MALIK PCP Performed By: Dominic, Sharla, RDCS, RVT
== END 2022-12-26 23:59 | disposition home or self-care (01) ==
LOC: CVS 14:56
PROVIDERS: Referring Provider Nurse Practitioner Gerontology; Visit Provider Nurse Practitioner Gerontology
DX: R06.02 Shortness of breath (principal); R06.09 Other forms of dyspnea
CPT/HCPCS: 93306

== ENCOUNTER 2022-12-26 15:57 | Emergency (ER) | payer OTHER, MEDICARE, SELFPAY ==
[2022-12-26 15:58] VITALS: BP 132/96; PULSE 102; RESP 18; TEMP 36.8; O2SAT 100
[2022-12-26 16:00] VITALS: BMI 36.8
[2022-12-26 16:16] VITALS: BP 121/81; PULSE 93; RESP 21; O2SAT 98
--- NOTE | 2022-12-26 16:16 | CT_ITS ---
STUDY: CT BRAIN WITHOUT CONTRAST REASON FOR EXAM: Female, 37 years old. Seizure. Headache. RADIATION DOSAGE (If Supplied By Facility): CTDIvol = ( 44.99 ) mGy, DLP = ( 779.24 ) mGycm TECHNIQUE: Transaxial CT imaging of the brain was performed without administration of intravenous contrast material. Individualized dose optimization techniques were used for this CT. COMPARISON: CTA of the head, January 31, 2019 FINDINGS: Normal soft tissue structures. Normal calvarium. Normal size ventricles and extra-axial spaces for the patient''s age. Normal white matter tracts of the cerebral hemispheres. Normal basal ganglia and thalami. Normal brainstem. Normal cerebellum. There is no intracranial hemorrhage. There are no findings of an acute ischemic infarction. Normal visualized paranasal sinuses. CT/Brain/Head without Contrast IMPRESSION: Normal unenhanced CT scan of the brain. AIDOC was utilized to assist in identifying pertinent positive findings in this case. Electronically Signed: Han Garcia DO at 17:29 EDT ,
--- NOTE | 2022-12-26 16:17 | EDS_ITS ---
HPI History of Present Illness Chief Complaint: Seizure Detail of Chief Complaint: Seizure Informant: patient Narrative Narrative: Patient presents to the emergency department after sustaining a seizure while in the echo suite at the hospital. Patient is currently being evaluated for POTS and was having an echocardiogram today. She remembers a headache and feeling numb all over and then the apparently the next thing she remembers is waking up with people around her. She was told she had a seizure that may have lasted 5 to 10 minutes. Patient has a history of seizures but states that her neurologist is not unsure if they are related to her pots and are nonepileptic therefore she is not on medications for seizures currently. She denies recent illness. She did not lose control of bowel or bladder. She not bite her tongue. Her headaches improved. Patient states has been dealing with these episodes for years. Prior similar symptoms: [facility] Medical History (Updated 12/26/22 @ 19:[address] Rachel Christiansen, DO) Asthma Cervical paraspinal muscle spasm COVID-19 virus detected (02/12/21) Depression Dyslexia Dysthymic disorder Essential hypertension History of gestational diabetes History of syncope (08/2013) Hypotension Migraine Pott's disease Seizure disorder Seizures Type 2 diabetes mellitus Urinary tract infection Home Medications albuterol sulfate 90 mcg/actuation aerosol inhaler 2 puff inhalation Q4H PRN Asthma 07/29/21 [History Last Taken Unknown] brexpiprazole 1 mg tablet 1.5 mg PO DAILY 07/29/21 [History Last Taken Unknown] buspirone 10 mg tablet 10 mg PO BID 07/29/21 [History Last Taken Unknown] medroxyprogesterone 10 mg tablet 10 mg PO ONCE PRN 07/29/21 [History Last Taken Unknown] paroxetine HCl 40 mg tablet 40 mg PO DAILY 08/02/21 [History Last Taken Unknown] dulaglutide 0.75 mg/0.5 mL subcutaneous pen injector 0.75 mg subcut QWEEK 08/30/21 [History Last Taken Unknown] prochlorperazine maleate 5 mg tablet (Compazine) 5 mg PO TID PRN nausea and vomiting #10 tabs 09/17/21 [Rx Last Taken Unknown] midodrine 2.5 mg tablet 2.5 mg PO TID this is a dose increase #90 tabs 12/11/22 [Rx Last Taken Unknown] handicap placard #1 ea 12/18/22 [Rx Last Taken Unknown] miscellaneous medical supply (Blood Pressure Cuff) #1 ea 12/18/22 [Rx Last Taken Unknown] Allergy/AdvReac Type Severity Reaction Status Date / Time amoxicillin [From Augmentin] Allergy Unknown unknown Verified 12/26/22 16:00 clavulanic acid Allergy Unknown unknown Verified 12/26/22 16:00 [From Augmentin] codeine phosphate Allergy Swelling Verified 12/26/22 16:00 [From Tylenol-Codeine #3] shellfish derived Allergy Swelling Verified 12/26/22 16:00 venom-honey bee Allergy Angioedema Verified 12/26/22 16:00 [bee venom (honey bee)] Family History (Reviewed 12/18/22 @ 15:26 by Inocencia Edwards [employer]CH FOLDING MACHINE OPERATOR, [employer] FOLDING MACHINE OPERATOR-C) Mother Asthma Hypertension Breast cancer Diabetes Father Diabetes Hypertension Hyperlipidemia Grandmother Myocardial infarction Grandfather Cancer Lung Grandfather Cancer Throat Aunt Breast cancer Surgical History (Reviewed 12/18/22 @ 15:26 by Inocencia Edwards [employer]CH FOLDING MACHINE OPERATOR, [employer] FOLDING MACHINE OPERATOR-C) History of History of cholecystectomy History of tubal ligation History of umbilical hernia repair Social History Smoking Status: Former smoker how long ago did patient quit smokin years ago alcohol intake: never substance use type: does not use ROS ROS ED ROS Narrative Seizure Review of Systems ROS Unobtainable: other Constitutional Constitutional ED: Reports lethargy; Denies chills, fever(s), sweats or weight loss Eyes Eyes: Denies blurry vision, change in vision or diplopia ENT ENT ED: Denies rhinorrhea or sore throat Cardiovascular Cardiovascular: Reports chest pain and racing heartbeat; Denies orthopnea Respiratory/Chest Respiratory/Chest: Reports dyspnea and dyspnea on exertion; Denies cough, orthopnea or sputum Gastrointestinal Gastrointestinal: Denies abdominal pain, diarrhea, nausea or vomiting Genitourinary Genitourinary ED: Denies dysuria, hematuria or urinary frequency Musculoskeletal Musculoskeletal: Denies arthralgias, back pain, myalgias or neck pain Integumentary Denies abscess, Abrasions or rash Neurologic Neurologic: Reports headache(s) and paresthesias; Denies weakness Psychiatric Psychiatric: Denies anxiety, depression or suicidal thoughts Endocrine Endocrinology: Denies polydipsia, polyphagia or polyuria Hematologic/Lymphatic Hematologic/Lymphatic: Denies easy bleeding, easy bruising or lymphadenopathy Allergic/Immunologic Allergic/Immunologic ED: Denies mouth swelling, tongue swelling or urticaria EXAM Physical Exam Const Vital Signs: 12/26/22 15:58 12/26/22 16:16 Temperature 98.2 F Temperature Source Temporal Pulse Rate 102 H 93 Respiratory Rate 18 21 H Blood Pressure 132/96 H 121/81 H Blood Pressure Mean 108 94 Pulse Ox 100 98 Oxygen Delivery Method Room Air Room Air Positive well nourished and well developed General Appearance ED: well developed and NAD HEENT Reports TM's clear and moist mucous membranes normocephalic and atraumatic; Negative for trauma or tenderness Tympanic Membrane ED: Yes TM's clear Eyes PERRL and EOMs intact bilaterally General Eye ED: Negative for pale conjunctiva or scleral icterus Neck no lymphadenopathy, supple and no JVD General: Negative for tenderness Chest Wall inspection of chest normal and palpation of chest normal Chest: Negative for tenderness Resp normal respiratory effort and clear to auscultation bilaterally Effort and Inspection: Negative for respiratory distress or pain with movement Auscultation: Negative for rhonchi, wheezes or diminished lung sounds Cardio regular rate, regular rhythm, S1 normal heart sound, S2 normal heart sound and no murmurs Peripheral Pulses: pulses 2+ throughout GI normal to inspection, nondistended, normoactive bowel sounds, soft to palpation, non-tender, non-distended and no masses Back/Spine no CVA tenderness and no thoracic nor lumbar tenderness Extremity normal to inspection General Extremety ED: Negative for edema General Extremity: Negative for edema Neuro oriented x3, CN's II-XII intact bilaterally, no sensory deficits noted and gait normal Sensorium / Orientation: awake, alert, oriented to person, oriented to place and oriented to time Motor Exam: strength 5/5 throughout and strength abnormal Psych mental status grossly normal Skin no rashes or lesions noted and no wounds MDM MDM MDM Narrative Medical decision making narrative: Presents with a episode of possible seizure. She has had similar episodes in the past that she was told may not be true seizure but nonepileptic seizures. She did not lose control of her bowel or bladder and had no bite wounds to her mouth. I did do a work-up here including CT of the brain without contrast which was unremarkable. CBC with differential was normal. Chemistries and LFTs were normal. Urinalysis was normal. Patient's had no further recurrence in the emergency department. Initially she was hesitant to allow me to do any type of work-up and just wanted to go home I feel it is safe to send her home. She will call tomorrow and make a follow-up appointment with her neurologist. Lab Data Labs: Laboratory Results - last 24 hr 12/26/22 12/26/22 12/26/22 17:05 17:05 18:15 WBC 8.0 RBC 4.72 Hgb 13.2 Hct 39.2 MCV 83.1 MCH 28.0 MCHC 33.7 RDW Std Deviation 42.3 RDW Coeff of Caren 14.2 Plt Count 228 MPV 10.3 Immature Gran % (Auto) 1.400 H Neut % (Auto) 65.7 Lymph % (Auto) 25.9 [place] % (Auto) 5.4 Eos % (Auto) 1.1 Baso % (Auto) 0.5 Absolute Neuts (auto) 5.3 Absolute Lymphs (auto) 2.08 Nucleated RBC % 0 Sodium 138 Potassium 3.7 Chloride 104 Carbon Dioxide 26.0 Anion Gap 8 BUN 7 Creatinine 0.78 Estim Creat Clear Calc 81.69 Est GFR (MDRD) Af Amer 106 Est GFR (MDRD) Non-Af 88 BUN/Creatinine Ratio 8.9 L Glucose 213 H Calcium 9.1 Total Bilirubin 0.80 AST 18 ALT 23 Alkaline Phosphatase 78 Total Protein 7.0 Albumin 3.6 Globulin 3.4 Albumin/Globulin Ratio 1.1 Urine Color Yellow Urine Clarity Sl. Cloudy Urine pH 6.0 Ur Specific [place] 1.015 Urine Protein Negative Urine Glucose (UA) 1000 H Urine Ketones Negative Urine Occult Blood Negative Urine Nitrite Negative Urine Bilirubin Negative Urine Urobilinogen Normal Ur Leukocyte Esterase 100 H Urine RBC 0 SEEN Urine WBC 5-10 SEEN Ur Squamous Epith Cells 0-5 SEEN Urine Bacteria RARE Urine Mucus 0 SEEN Urine Yeast RARE Radiography Diagnostic Testing: Clinical Impression(s) from Imaging Studies Brain CT 12/26/22 16:16 IMPRESSION: Normal unenhanced CT scan of the brain. AIDOC was utilized to assist in identifying pertinent positive findings in this case. Electronically Signed: Han Garcia DO at 17:29 EDT Reading Location ID and State: [facility] / [place] Tel [phone], Service support , Discharge Plan Triage Chief Complaint: Seizure ED Provider: Rachel Christiansen Dx/Rx/DC Orders Clinical Impression: Seizure Instructions: ED Seizure, Recurrent (Adult) Prescriptions: No Action paroxetine HCl 40 mg tablet 40 mg PO DAILY Rexulti 1 mg tablet 1.5 mg PO DAILY buspirone 10 mg tablet 10 mg PO BID Label Comments: TAKE 1 TABLET BY MOUTH TWICE A DAY medroxyprogesterone 10 mg tablet 10 mg PO ONCE PRN Label Comments: TAKE 1 TABLET BY MOUTH DIRECTED. FOR 7 DAYS A MONTH Trulicity 0.75 mg/0.5 mL pen injector 0.75 mg subcut QWEEK (DME) Blood Pressure Cuff Misc See Rx Instructions .Route Qty: 1 0RF Rx Instructions: As directed (DME) handicap placard See Rx Instructions .Route .MEDSUPPLY Qty: 1 0RF Rx Instructions: Debility Expiration: 05/2023 albuterol sulfate 90 mcg/actuation HFA aerosol inhaler 2 puff inhalation Q4H PRN (Reason: Asthma) prochlorperazine maleate [Compazine] 5 mg tablet 5 mg PO TID PRN (Reason: nausea and vomiting) Qty: 10 0RF midodrine 2.5 mg tablet 2.5 mg PO TID Qty: 90 11RF Primary Care Provider: Care Physician,No Primary Referrals: Care Physician,No Primary [Primary Care Provider] - Activity Restrictions/Additional Instructions: Follow-up with your neurologist in 3 to 5 days. Disposition Disposition: Home, Self Care
[2022-12-26] MEDS: 0.9% Normal Saline 1,000 ML 1000 ML IV (17:07)
[2022-12-26 17:16] LABS: Absolute Lymphocyte Count 2.08 X10^3/uL (0.83-4.51); Absolute Neutrophil Count 5.3 X10^3/uL (2.0-7.7); Basophil# 0.04 X10^3/uL; Basophil% 0.5 % (0-1); Eosinophil# 0.09 X10^3/uL; Eosinophils% 1.1 % (0-5); Hematocrit 39.2 % (37-47); Hemoglobin 13.2 g/dL (12.0-15.0); Lymphocyte # 2.08 X10^3/ul (0.83-4.51); Lymphocyte % 25.9 % (19-41); Mean Corp Hgb Conc 33.7 g/dL (32-36); Mean Corpuscular Volume 83.1 fL (81-99); Mean Platelet Vol. 10.3 fl (6.2-12.0); Monocyte# 0.43 X10^3/uL; Monocyte% 5.4 % (0-10); NRBC Flagged by Analyzer 0 % (0-5); Neutrophil # 5.27 X10^3/uL (2.7-7.7); Neutrophil % 65.7 % (47-70); Platelet Count 228 K/mm3 (150-450); RBC Distribution Width CV 14.2 % (11.6-14.6); RBC Distribution Width SD 42.3 fl (35.1-43.9); Red Blood Count 4.72 M/mm3 (4.2-5.4)
[2022-12-26 17:33] LABS: ALB/GLOB Ratio 1.1 RATIO (0.9-2.4); AST(SGOT) 18 U/L (15-37); Alanine Aminotransfer ALT/SGPT 23 U/L (13-56); Albumin, Serum 3.6 g/dL (3.2-5.0); Alkaline Phosphatase 78 U/L (45-117); Anion Gap 8 (5-15); BUN 7 mg/dL (7-18); BUN/Creat Ratio 8.9 RATIO (10-20); Calcium,Total 9.1 mg/dL (8.5-10.1); Chloride 104 mmol/L (98-107); Creatinine, Serum 0.78 mg/dL (0.55-1.02); EST Glomerular Filtration Rate 88 mL/min (>60); Est Glom Filt Rate - Afr Amer 106 mL/min (>60); Estimated Creatinine Clearance 81.69 ml/min; Globulin 3.4 g/dL (2.2-4.2); Glucose 213 mg/dL (74-106); Potassium 3.7 mmol/L (3.5-5.1); Sodium Level 138 mmol/L (136-145)
[2022-12-26 18:21] LABS: Mucous, Urine 0 SEEN /hpf (<or=2+); Red Blood Cells-Urine 0 SEEN /hpf (0-5)
[2022-12-26 18:36] LABS: Color, Urine Yellow (Yellow); Glucose, Dipstick 1000 mg/dl (Normal); Ketone-Dipstick Negative (Negative); Leukocyte Esterase-Dipstick 100 /ul (Negative); Nitrite-Dipstick Negative (Negative); Occult Blood-Urine Negative /ul (Negative); Protein-Dipstick Negative (Negative); Specific Gravity, Urine 1.015 (1.002-1.030); Urine Bilirubin Dipstick Negative (Negative); Urine Clarity Sl. Cloudy (Clear); Urine Urobilinogen Normal (Normal)
[2022-12-26 18:52] LABS: Bacteria RARE /hpf (None Seen); Squamous Epithelial Cells - UA 0-5 SEEN /hpf (5-10); White Blood Cells 5-10 SEEN /hpf (0-5); Yeast-Urine RARE /hpf (None Seen)
[2022-12-26 20:08] VITALS: RESP 16
[2022-12-26 20:09] VITALS: RESP 16
== END 2022-12-26 20:11 | disposition home or self-care (01) ==
PROVIDERS: Emergency Provider Emergency Medicine; Visit Provider Emergency Medicine
DX: R56.9 Unspecified convulsions (principal); R06.02 Shortness of breath; R06.09 Other forms of dyspnea; Z87.891 Personal history of nicotine dependence; Z86.16 Personal history of COVID-19
CPT/HCPCS: 70450; 80053; 81001; 85025; 93306; 96360; 99284; J7030

== ENCOUNTER → 2023-05-25 | Outpatient (CLI) | payer OTHER, MEDICARE, SELFPAY ==
[2023-05-25 15:48] LABS: Absolute Lymphocyte Count 2.03 X10^3/uL (0.83-4.51); Absolute Neutrophil Count 6.9 X10^3/uL (2.0-7.7); Basophil# 0.06 X10^3/uL; Basophil% 0.6 % (0-1); Hematocrit 43.3 % (37-47); Lymphocyte # 2.03 X10^3/ul (0.83-4.51); Lymphocyte % 20.6 % (19-41); Mean Corp Hgb Conc 34.6 g/dL (32-36); Mean Corpuscular Hgb 30.5 pg (27.0-32.0); Mean Corpuscular Volume 88.2 fL (81-99); Mean Platelet Vol. 10.6 fl (6.2-12.0); Monocyte# 0.54 X10^3/uL; Monocyte% 5.5 % (0-10); NRBC Flagged by Analyzer 0 % (0-5); Neutrophil # 6.93 X10^3/uL (2.7-7.7); Neutrophil % 70.5 % (47-70); Platelet Count 288 K/mm3 (150-450); RBC Distribution Width CV 14.5 % (11.6-14.6); RBC Distribution Width SD 46.1 fl (35.1-43.9); Red Blood Count 4.91 M/mm3 (4.2-5.4); White Blood Count 9.8 K/mm3 (4.4-11.0)
[2023-05-25 16:27] LABS: Anion Gap 6 (5-15); BUN 10 mg/dL (7-18); BUN/Creat Ratio 11.4 RATIO (10-20); Chloride 101 mmol/L (98-107); Creatinine, Serum 0.88 mg/dL (0.55-1.02); EST Glomerular Filtration Rate 76 mL/min (>60); Est Glom Filt Rate - Afr Amer 92 mL/min (>60); Free T3 2.3 pg/mL (2.18-3.98); Glucose 314 mg/dL (74-106); Magnesium 2.2 mg/dL (1.6-2.6); Potassium 4.2 mmol/L (3.5-5.1); Sodium Level 133 mmol/L (136-145); T4 Free Direct 0.91 ng/dL (0.76-1.46); Thyroid Stim Hormone (TSH) 2.38 uIU/mL (0.358-3.74)
== END | disposition home or self-care (01) ==
LOC: LAB 15:01
PROVIDERS: Referring Provider Nurse Practitioner Gerontology; Visit Provider Nurse Practitioner Gerontology
DX: R00.0 Tachycardia, unspecified (principal); R25.1 Tremor, unspecified
CPT/HCPCS: 36415; 80048; 83735; 84439; 84443; 84481; 85025

== ENCOUNTER 2023-11-07 17:39 | Emergency (ER) | payer OTHER, MEDICARE, SELFPAY ==
[2023-11-07 17:41] VITALS: BP 155/111; PULSE 98; RESP 22; TEMP 36.6; O2SAT 100; BMI 35.1
[2023-11-07 18:37] VITALS: BP 157/114; PULSE 90; RESP 14; O2SAT 99
--- NOTE | 2023-11-07 18:48 | EX.ED.DYSGE1 ---
HPI History of Present Illness Chief Complaint: Hypertension Informant: patient Onset/Context/Timing Onset: Hours Context: Gradual Onset Timing: Continuous Current Severity: Mild Maximum Severity: Mild Narrative Narrative: 38-year-old female history of anxiety prior hypertension but off medications diabetes. Said today she was getting a medical evaluation by her nurse practitioner she had elevated blood pressure then said she felt anxious and her heart was beating fast and she developed chest pain to the center of the emergency department. She thinks it secondary to her anxiety. No history of DVT or PE or risk factors. No travel, surgery or immobilization. No hemoptysis. No leg pain or swelling. No known history of cardiac disease. No recent exertional chest pain or exertional dyspnea. Prior similar symptoms: Yes Recent Illness/Hospitalization: No PFSH PFSH Medical History Asthma Cervical paraspinal muscle spasm COVID-19 virus detected (02/12/21) Depression Dyslexia Dysthymic disorder Essential hypertension History of gestational diabetes History of syncope (08/2013) Hypotension Migraine Pott's disease Seizure disorder Seizures Type 2 diabetes mellitus Urinary tract infection Home Medications albuterol sulfate 90 mcg/actuation aerosol inhaler 2 puff inhalation Q4H PRN Asthma 07/29/21 [History Last Taken Unknown] brexpiprazole 1 mg tablet 1.5 mg PO DAILY 07/29/21 [History Last Taken Unknown] buspirone 10 mg tablet 10 mg PO BID 07/29/21 [History Last Taken Unknown] paroxetine HCl 40 mg tablet 40 mg PO DAILY 08/02/21 [History Last Taken Unknown] prochlorperazine maleate 5 mg tablet (Compazine) 5 mg PO TID PRN nausea and vomiting #10 tabs 09/17/21 [Rx Last Taken Unknown] handicap placard #1 ea 12/18/22 [Rx Last Taken Unknown] miscellaneous medical supply (Blood Pressure Cuff) #1 ea 12/18/22 [Rx Last Taken Unknown] lisinopril 5 mg tablet 5 mg PO DAILY #90 tabs 01/02/23 [Rx Last Taken Unknown] midodrine 2.5 mg tablet 2.5 mg PO TID this is a dose increase #90 tabs 01/29/23 [Rx Last Taken Unknown] lisinopril 10 mg tablet 10 mg PO DAILY #30 tabs 11/07/23 [Rx Last Taken Unknown] Allergy/AdvReac Type Severity Reaction Status Date / Time amoxicillin [From Augmentin] Allergy Unknown unknown Verified 11/07/23 17:41 clavulanic acid Allergy Unknown unknown Verified 11/07/23 17:41 [From Augmentin] codeine phosphate Allergy Swelling Verified 11/07/23 17:41 [From Tylenol-Codeine #3] shellfish derived Allergy Swelling Verified 11/07/23 17:41 venom-honey bee Allergy Angioedema Verified 11/07/23 17:41 [bee venom (honey bee)] Family History Mother Asthma Hypertension Breast cancer Diabetes Father Diabetes Hypertension Hyperlipidemia Grandmother Myocardial infarction Grandfather Cancer Lung Grandfather Cancer Throat Aunt Breast cancer Surgical History History of History of cholecystectomy History of tubal ligation History of umbilical hernia repair Social History Smoking Status: Former smoker how long ago did patient quit smokin years ago alcohol intake: never substance use type: does not use ROS ROS ED ROS Narrative No recent illness. Review of Systems ROS Unobtainable: Denies due to encephalopathy Constitutional Constitutional ED: Denies chills or fever(s) Eyes Eyes: Denies blurry vision ENT ENT ED: Denies ear pain Cardiovascular Cardiovascular: Reports chest pain and racing heartbeat; Denies palpitations Respiratory/Chest Respiratory/Chest: Denies cough or dyspnea Gastrointestinal Gastrointestinal: Denies abdominal pain, diarrhea, nausea or vomiting Genitourinary Genitourinary ED: Denies dysuria or hematuria Musculoskeletal Musculoskeletal: Denies arthralgias Integumentary Denies abscess or Abrasions Neurologic Neurologic: Denies headache(s) Psychiatric Psychiatric: Reports anxiety Endocrine Endocrinology: Denies cold intolerance Hematologic/Lymphatic Hematologic/Lymphatic: Reports none Allergic/Immunologic Allergic/Immunologic ED: Denies mouth swelling, tongue swelling or urticaria EXAM Physical Exam Narrative Exam Narrative: Well-appearing 38-year-old female. Vital signs stable. Afebrile. Pulse ox 100% on room air no signs hypoxia. Initial blood pressure 155/111. She is anxious. HEENT exam unremarkable. Neck nontender. Lungs clear to auscultation bilaterally. Heart regular rhythm rate about 90 no murmur. She has mild reproducible chest wall pain on the left. Ribs nontender. Abdomen soft nontender. Moving all 4 extremities. Nontender. No edema. No cords. Equal symmetrical radial pulses. 5 of 5 public works commissioner strength. Dorsi plantarflexion intact. Neurologically she is awake and alert with no focal motor deficits. Const Vital Signs: 11/07/23 17:41 11/07/23 18:37 11/07/23 18:39 Temperature 98 F Temperature Source Temporal Pulse Rate 98 90 Respiratory Rate 22 H 14 Respiratory Effort Normal Non-Labored Blood Pressure 155/111 H 157/114 H Blood Pressure Mean 125 128 Pulse Ox 100 99 Oxygen Delivery Method Room Air 11/07/23 18:40 11/07/23 19:30 11/07/23 19:30 Temperature Temperature Source Pulse Rate 83 Respiratory Rate 23 H Respiratory Effort Normal Non-Labored Blood Pressure 163/108 H Blood Pressure Mean 126 Pulse Ox 98 Oxygen Delivery Method Room Air Room Air 11/07/23 21:00 Temperature Temperature Source Pulse Rate 83 Respiratory Rate 13 Respiratory Effort Blood Pressure 149/99 H Blood Pressure Mean 115 Pulse Ox 98 Oxygen Delivery Method Room Air Positive well nourished and well developed; Negative for cachectic, contractures or unkempt General Appearance ED: well developed and NAD; Negative for unkempt, cachectic, contractures, cyanotic, diaphoretic or pallor Nutritional Appearance: Negative for cachectic HEENT Reports moist mucous membranes; Denies dry mucous membranes Negative for trauma or tenderness Mouth ED: No dry mucous membranes Mouth: No dry mucous membranes Eyes PERRL and EOMs intact bilaterally General Eye ED: Negative for pale conjunctiva, scleral icterus or other Neck no lymphadenopathy, supple and no JVD General: Negative for tenderness Lymph Lymphatic: Negative for other Chest Wall inspection of chest normal; Negative for palpation of chest normal Chest Narrative: Mild left chest wall tenderness. No bruising. No subcu air or crepitus. No redness or warmth. No signs of trauma. Resp normal respiratory effort and clear to auscultation bilaterally Effort and Inspection: Negative for retractions Auscultation: Negative for rales, rhonchi or wheezes Cardio regular rate, regular rhythm, S1 normal heart sound, S2 normal heart sound and no murmurs Palpation: Negative for palpable S3 or palpable S4 Rate: Negative for bradycardia or tachycardic Rhythm: Negative for abnormal rhythm GI normal to inspection, nondistended, normoactive bowel sounds, non-tender, non-distended and no masses Palpation: soft; Negative for tender or guarding Bladder / Kidney Exam: No other Back/Spine no CVA tenderness General Back: Negative for CVA tenderness or other Cervical Spine: Negative for cervical spine tenderness Thoracic Spine / Upper Back: Negative for thoracic spinal tenderness or paraspinal muscle tenderness Lumbar Spine / Lower Back: Negative for lumbar spinal tenderness Extremity normal to inspection General Extremety ED: Negative for edema or tenderness General Extremity: Negative for edema Neuro oriented x3 and CN's II-XII intact bilaterally Sensorium / Orientation: alert; Negative for orientation impaired, lethargic or stuporous Motor Exam: strength 5/5 throughout Psych mental status grossly normal Appearance: Negative for unkempt Attitude: No agitated Mood & Affect: Negative for depressed, anxious or tearful Skin no rashes or lesions noted, no wounds and skin turgor normal General Skin Exam: Negative for jaundice or pallor Rashes: No rashes noted Trauma: Negative for abrasion Wounds: Negative for wounds noted MDM MDM MDM Narrative Medical decision making narrative: 38-year-old female with anxiety and elevated blood pressure and left chest pain not exertional. Cardiac workup. Lisinopril for her blood pressure. Repeat exam patient doing well at 10:22 PM. Most recent blood pressure 149/99. She will be discharged home with lisinopril prescription 10 mg daily. Watch her blood pressures and follow-up. History & Record Review Discussion w/independent historian: Patient Additional record(s) reviewed:: Prior inpatient record, Prior outpatient record, Prior ED visit and Prior labs Lab Data Attestation: I reviewed the patient's lab results. Lab results narrative: CBC shows a white count of 10. H&H 13 and 39. Platelets 231. Electrolytes show a sodium 135 gap 6. Normal BUN of 10 creatinine 0.7. Glucose 239 she is diabetic. Troponin 6. 2-hour troponin was 5. Chest x-ray normal. Labs: Laboratory Results - last 24 hr 11/07/23 11/07/23 19:25 21:45 WBC 10.0 RBC 4.62 Hgb 13.5 Hct 39.6 MCV 85.7 MCH 29.2 MCHC 34.1 RDW Std Deviation 48.7 H RDW Coeff of Caren 15.5 H Plt Count 231 MPV 10.7 Immature Gran % (Auto) 0.600 Neut % (Auto) 66.3 Lymph % (Auto) 26.5 [place] % (Auto) 5.0 Eos % (Auto) 0.9 Baso % (Auto) 0.7 Absolute Neuts (auto) 6.6 Absolute Lymphs (auto) 2.65 Nucleated RBC % 0 Sodium 135 L Potassium 3.8 Chloride 108 H Carbon Dioxide 21.0 Anion Gap 6 BUN 10 Creatinine 0.70 Estim Creat Clear Calc 115.95 Est GFR (MDRD) Af Amer 121 Est GFR (MDRD) Non-Af 100 BUN/Creatinine Ratio 14.4 Glucose 239 H Calcium 9.0 Troponin I High Sens 6 5 Radiography Chest X-Ray - ED: 1 View, Read by ED Physician, Heart, Lungs, Mediastinum, Bony Structures and No Acute Disease Diagnostic Testing: Clinical Impression(s) from Imaging Studies Chest X-Ray 11/07/23 19:38 IMPRESSION: No radiographic evidence of acute cardiopulmonary disease. Electronically Signed: Jose Meeks MD at 19:55 EST , Chest x-ray, portable, single view interpreted by myself shows no acute abnormality. Normal cardiac silhouette. Normal mediastinum and aortic knob. Normal lung [place]. Rhythm Strip Rhythm Strip: Sinus Rhythm Rate: 89 Ectopy: None EKG Initial EKG: Attestation: I personally reviewed and interpreted this EKG as follows: Interpretation: Sinus Rhythm and No Acute Injury Pattern Comments: Normal sinus rhythm rate 89 no acute signs of ID or ischemia. Discharge Plan Triage Chief Complaint: Hypertension Other Complaint: Chest Pain ED Provider: Tavares Lee Dx/Rx/DC Orders Clinical Impression: Essential hypertension, History of diabetes mellitus, Chest pain Instructions: ED Chest Pain, Uncertain Cause, ED High Blood Pressure Hypertension Prescriptions: New lisinopril 10 mg tablet 10 mg PO DAILY Qty: 30 0RF No Action paroxetine HCl 40 mg tablet 40 mg PO DAILY Rexulti 1 mg tablet 1.5 mg PO DAILY buspirone 10 mg tablet 10 mg PO BID Patient Comments: TAKE 1 TABLET BY MOUTH TWICE A DAY (DME) Blood Pressure Cuff Misc See Rx Instructions .Route Qty: 1 0RF Rx Instructions: As directed (DME) handicap scooby See Rx Instructions .Route .MEDSUPPLY Qty: 1 0RF Rx Instructions: Debility Expiration: 05/2023 albuterol sulfate 90 mcg/actuation HFA aerosol inhaler 2 puff inhalation Q4H PRN (Reason: Asthma) prochlorperazine maleate [Compazine] 5 mg tablet 5 mg PO TID PRN (Reason: nausea and vomiting) Qty: 10 0RF lisinopril 5 mg tablet 5 mg PO DAILY Qty: 90 3RF midodrine 2.5 mg tablet 2.5 mg PO TID Qty: 90 11RF Primary Care Provider: Care Physician,No Primary Referrals: Bienvenido Mejia MD [Non-Staff] - 1 Week Care Physician,No Primary [Primary Care Provider] - Activity Restrictions/Additional Instructions: You will be started on the blood pressure medication lisinopril you will take it once a day. Take it 1 to 2 hours prior to going to bed. If at all possible get a blood pressure machine for home or borrow someone's log your blood pressure twice daily. When you follow-up with a local prior care physician you can show them your blood pressure readings to decide if they need to adjust or alter your blood pressure medication. If your blood pressure is running too low below 120 consistently on the higher number which is your systolic blood pressure then your medication and the dose will need to be evaluated. Disposition Disposition: Home, Self Care
[2023-11-07 19:30] VITALS: BP 163/108; PULSE 83; RESP 23; O2SAT 98
[2023-11-07] MEDS: Lisinopril 10 MG Tablet PO (19:33)
[2023-11-07] MEDS: Aspirin 81 MG TAB.CHEW 324 MG PO (19:33)
[2023-11-07 19:36] LABS: Absolute Lymphocyte Count 2.65 X10^3/uL (0.83-4.51); Absolute Neutrophil Count 6.6 X10^3/uL (2.0-7.7); Basophil# 0.07 X10^3/uL; Basophil% 0.7 % (0-1); Eosinophil# 0.09 X10^3/uL; Eosinophils% 0.9 % (0-5); Hematocrit 39.6 % (37-47); Hemoglobin 13.5 g/dL (12.0-15.0); Lymphocyte # 2.65 X10^3/ul (0.83-4.51); Lymphocyte % 26.5 % (19-41); Mean Corp Hgb Conc 34.1 g/dL (32-36); Mean Corpuscular Hgb 29.2 pg (27.0-32.0); Mean Corpuscular Volume 85.7 fL (81-99); Mean Platelet Vol. 10.7 fl (6.2-12.0); NRBC Flagged by Analyzer 0 % (0-5); Neutrophil # 6.62 X10^3/uL (2.7-7.7); Neutrophil % 66.3 % (47-70); Platelet Count 231 K/mm3 (150-450); RBC Distribution Width CV 15.5 % (11.6-14.6); RBC Distribution Width SD 48.7 fl (35.1-43.9); Red Blood Count 4.62 M/mm3 (4.2-5.4)
--- NOTE | 2023-11-07 19:38 | RAD_ITS ---
INDICATION: chest pain EXAMINATION/TECHNIQUE: X-RAY - XR Chest 1 View COMPARISON: Prior study dated: 06/23/2021. FINDINGS: LINES/DEVICES: None. LUNGS: No consolidation, edema or effusion. No pneumothorax. MEDIASTINUM AND CARDIOVASCULAR STRUCTURES: Cardiac silhouette not enlarged. Central airways and mediastinal contour are unremarkable. BONES AND SOFT TISSUES: Unremarkable. RAD/Chest 1 View (Portable) IMPRESSION: No radiographic evidence of acute cardiopulmonary disease. Electronically Signed: Jose Meeks MD at 19:55 EST ,
[2023-11-07 19:59] LABS: Anion Gap 6 (5-15); BUN 10 mg/dL (7-18); BUN/Creat Ratio 14.4 RATIO (10-20); Chloride 108 mmol/L (98-107); EST Glomerular Filtration Rate 100 mL/min (>60); Est Glom Filt Rate - Afr Amer 121 mL/min (>60); Estimated Creatinine Clearance 115.95 ml/min; Glucose 239 mg/dL (74-106); Potassium 3.8 mmol/L (3.5-5.1); Sodium Level 135 mmol/L (136-145); Troponin-I HS (w/2H Reflex) 6 pg/mL (3.0-54.0)
[2023-11-07 21:00] VITALS: BP 149/99; PULSE 83; RESP 13; O2SAT 98
[2023-11-07 21:33] LABS: Reflex Troponin-HS? (from REC) Y
[2023-11-07 22:21] LABS: Troponin-I HS 5 pg/mL (3.0-54.0)
[2023-11-07 22:30] VITALS: BP 139/99; PULSE 87; RESP 21; O2SAT 98
== END 2023-11-07 22:36 | disposition home or self-care (01) ==
PROVIDERS: Emergency Provider Emergency Medicine; Visit Provider Emergency Medicine
DX: I10 Essential (primary) hypertension (principal); E11.65 Type 2 diabetes mellitus with hyperglycemia; Z79.899 Other long term (current) drug therapy; Z86.16 Personal history of COVID-19; Z87.891 Personal history of nicotine dependence; Z82.49 Family history of ischemic heart disease and other diseases of the circulatory system
CPT/HCPCS: 71045; 80048; 84484; 85025; 93005; 99285; A4216

== ENCOUNTER 2024-05-09 11:08 | Inpatient (IN) | payer OTHER, MEDICARE, SELFPAY ==
[2024-05-09] VITALS (15 sets, daily range): BP systolic 104–124; BP diastolic 65–81; PULSE 81–112; RESP 14–16; TEMP 35–36.9; O2SAT 95–100; BMI 33.6
--- NOTE | 2024-05-09 11:53 | EX.ED.UPPERE ---
HPI History of Present Illness Chief Complaint: Upper Extremity Injury [facility] Medical History (Updated 05/09/24 @ 15:[address] Trupti Sheridan MD) Pott's disease Hypotension COVID-19 virus detected (02/12/21) History of syncope (08/2013) Asthma Dyslexia Migraine History of gestational diabetes Dysthymic disorder Essential hypertension Urinary tract infection Cervical paraspinal muscle spasm Depression Seizures Seizure disorder Type 2 diabetes mellitus Home Medications ?Medication ?Instructions ?Recorded ?Last Taken ?Type albuterol sulfate 90 mcg/actuation 2 puff inhalation Q4H PRN Asthma 07/29/21 Unknown History aerosol inhaler handicap placard #1 ea 12/18/22 Unknown Rx miscellaneous medical supply #1 ea 12/18/22 Unknown Rx (Blood Pressure Cuff) rosuvastatin 5 mg tablet 5 mg PO DAILY 11/08/23 05/09/24 History atorvastatin 20 mg tablet 20 mg PO DAILY 05/09/24 05/09/24 History empagliflozin 10 mg tablet 10 mg PO DAILY 05/09/24 05/09/24 History (Jardiance) gabapentin 100 mg capsule 100 mg PO TID 05/09/24 05/09/24 History lisinopril 40 mg tablet 40 mg PO DAILY 05/09/24 05/09/24 History mirtazapine 15 mg tablet 15 mg PO QHS 05/09/24 05/08/24 History trazodone 100 mg tablet 150 mg PO QHS PRN insomnia 05/09/24 05/08/24 History venlafaxine 150 mg 150 mg PO DAILY 05/09/24 05/09/24 History capsule,extended release 24 hr venlafaxine 37.5 mg 37.5 mg PO DAILY 05/09/24 05/09/24 History capsule,extended release 24 hr Allergy/AdvReac Type Severity Reaction Status Date / Time amoxicillin (From Augmentin) Allergy Unknown unknown Verified 05/09/24 15:43 clavulanic acid (From Allergy Unknown unknown Verified 05/09/24 15:43 Augmentin) codeine phosphate (From Allergy Swelling Verified 05/09/24 15:43 Tylenol-Codeine #3) shellfish derived Allergy Swelling Verified 05/09/24 15:43 venom-honey bee (bee venom Allergy Angioedema Verified 05/09/24 15:43 (honey bee)) Family History Mother Asthma Hypertension Breast cancer Diabetes Father Diabetes Hypertension Hyperlipidemia Grandmother Myocardial infarction Grandfather Cancer Lung Grandfather Cancer Throat Aunt Breast cancer Surgical History History of History of tubal ligation History of umbilical hernia repair History of cholecystectomy Social History Smoking Status: Former smoker how long ago did patient quit smokin years ago alcohol intake: never substance use type: does not use EXAM Physical Exam Const Vital Signs: 05/09/24 11:09 Temperature 97.7 F L Temperature Source Temporal Pulse Rate 112 H Respiratory Rate 16 Blood Pressure 124/76 H Blood Pressure Mean 92 Pulse Ox 99 Oxygen Delivery Method Room Air [facility] [place] Narrative Medical decision making narrative: HISTORY OF PRESENT ILLNESS: 39-year-old right-handed female presents with concern for right index finger pain. There is no inciting event. No trauma. She states she has had 2 to 3 weeks of worsening right index finger pain and swelling. Notes history of diabetes but unsure what her sugar has been. States over the last 2 to 3 days got much worse. States she presents urgent care. Urgent care sent him to the ED for evaluation. Denies fever, denies chills or vomiting. Notes exquisite pain along the flexor surface of the right index finger. REVIEW OF SYSTEMS: Pertinent positives: Finger pain Pertinent negatives: Fever, vomiting chills PHYSICAL EXAM: Nursing triage notes reviewed, Vital signs reviewed Constitutional: please see mdm Extremities: Fusiform swelling noted to second digit however most of the patient's fingers are swollen, second digit is held in slight flexion, there is TTP over flexor tendon, Neuro: Intact 5/5 strength with ok sign (median), intact finger abduction (ulnar) intact wrist extension (radial n). Intact sensation in the radial, ulnar, and median nerve distributions. Skin: No rash or lesions noted, no erythema, no warmth MEDICAL DECISION MAKING: Chief Complaint: Finger pain External records reviewed: Imaging reviewed: No recent advanced imaging of the patient's involved extremity. Factors affecting care: Type 2 diabetes Social determinants of health: none History obtained from others: none Consults: Plastic and reconstructive surgery (Dr. Platt) MDM Narrative: Patient was initially tachycardic rate of 112, afebrile, nontoxic appearing. Exam with swelling of the second digit, digit is held in flexion and there is TTP over the flexor surface. No obvious deformities noted. No obvious overlying cellulitis. I considered the following differential diagnosis: Fracture, dislocation, cellulitis, flexor tenosynovitis, contusion, paronychia, felon Given exam was concerning but not definitive for flexor tenosynovitis and patient has type 2 diabetes I decided to obtain labs and images to further clarify if her symptoms are related to inflammatory process. Specifically I obtained a CBC to assess patient white blood cell count, ESR CRP to assess systemic inflammation AND AN x-ray to assess fracture dislocation. Patient was treated IV fluids, Zofran and morphine for symptomatic control ALL IMAGES (IF OBTAINED) HAVE BEEN PERSONALLY REVIEWED AND INTERPRETED BY MYSELF. CBC without leukocytosis, no anemia or thrombocytopenia BMP with mild hyponatremia otherwise no signs of metabolic acidosis or endorgan hypoperfusion Glucose is elevated on the patient's BNP consistent with poorly controlled diabetes Lactate is wnl indicating no end-organ hypoperfusion and/or hypoxia. CRP slightly elevated consistent with systemic inflammation X-ray of the right hand was read reviewed by myself and showed no obvious bony abnormality, no fracture or dislocation. Given elevate inflammatory markers and several Kanavel signs concerning for flexor tenosynovitis. I consulted hand surgery. Spoke with Dr. Platt who will evaluate the patient. Hand surgery recommended admission to medicine for definitive surgical intervention. Patient admitted under Dr. Sheridan. She recommended MedSurg. Patient was given 5 units subcu insulin. Given normal saline fluid infusion. Updated tetanus. The patient and/or family, caregivers express understanding. The patient and/or family, caregivers agrees with the plan. Shared decision making: I will have a discussion with the patient and or visitors regarding risk/benefits of further testing or admission. They will be made aware of of the risk/benefits inherent in this decision they will be given the opportunity to voice understanding. Total critical care time today provided was at least 0 minutes. This excludes separately billable procedures. Critical care time (if documented) is secondary to the patient having high probability of clinically significant/life threatening deterioration in the patient's condition which required my urgent intervention. Impression: 1. History of type 2 diabetes 2. Finger pain 3. Flexor tenosynovitis Dispo: Admit to medicine This note was generated with [employer] dictation software. It may contain incorrect words, spelling, and punctuation that were not noted in review of the chart prior to signing. Discharge Plan Disposition Disposition: Acute Care Hospital [facility] Discharge Date/Time: 05/09/24 15:19
[2024-05-09] MEDS: Morphine 4 MG/ML Syringe IV (12:40)
[2024-05-09] MEDS: Ondansetron 4 MG/2 ML Vial IV (12:40)
[2024-05-09] MEDS: Ketorolac 15 MG/ML Vial IV (12:40)
[2024-05-09] MEDS: 0.9% Normal Saline (1000mL) 1,000 ML 999 ML IV (12:40)
[2024-05-09 12:57] LABS: Anion Gap 5 (5-15); BUN 10 mg/dL (7-18); BUN/Creat Ratio 13.7 RATIO (10-20); CRP 3.83 mg/L (0.0-3.0); Calcium,Total 8.8 mg/dL (8.5-10.1); Chloride 104 mmol/L (98-107); Creatinine, Serum 0.73 mg/dL (0.55-1.02); EST Glomerular Filtration Rate 94 mL/min (>60); Erythrocyte Sedimentation Rate 1 mm/hr (0-30); Est Glom Filt Rate - Afr Amer 114 mL/min (>60); Estimated Creatinine Clearance 107.66 ml/min; Glucose 314 mg/dL (74-106); Potassium 4.2 mmol/L (3.5-5.1); Sodium Level 135 mmol/L (136-145)
[2024-05-09 13:02] LABS: Absolute Lymphocyte Count 1.51 X10^3/uL (0.83-4.51); Absolute Neutrophil Count 4.7 X10^3/uL (2.0-7.7); Basophil# 0.05 X10^3/uL; Basophil% 0.7 % (0-1); Eosinophil# 0.03 X10^3/uL; Eosinophils% 0.4 % (0-5); Hematocrit 37.8 % (37-47); Hemoglobin 12.8 g/dL (12.0-15.0); Lymphocyte # 1.51 X10^3/ul (0.83-4.51); Lymphocyte % 22.2 % (19-41); Mean Corp Hgb Conc 33.9 g/dL (32-36); Mean Corpuscular Hgb 30.4 pg (27.0-32.0); Mean Corpuscular Volume 89.8 fL (81-99); Mean Platelet Vol. 10.4 fl (6.2-12.0); Monocyte# 0.41 X10^3/uL; NRBC Flagged by Analyzer 0 % (0-5); Neutrophil # 4.72 X10^3/uL (2.7-7.7); Neutrophil % 69.7 % (47-70); Platelet Count 214 K/mm3 (150-450); RBC Distribution Width CV 15.5 % (11.6-14.6); RBC Distribution Width SD 50.7 fl (35.1-43.9); Red Blood Count 4.21 M/mm3 (4.2-5.4); White Blood Count 6.8 K/mm3 (4.4-11.0)
[2024-05-09 13:24] LABS: Lactic Acid 1.9 mmol/L (0.4-1.9)
--- NOTE | 2024-05-09 13:30 | RAD_ITS ---
STUDY: X-RAY - RIGHT HAND, ATTENTION INDEX FINGER REASON FOR EXAM: Female, 39 years old. Pain, 2nd digit r/o fracture or dislocation TECHNIQUE: 3 view(s) of the finger were obtained. COMPARISON: None. FINDINGS: Normal metacarpal head. Normal metacarpophalangeal joint. Normal proximal phalanx. Normal middle phalanx. Normal distal phalanx. Normal proximal interphalangeal joint. Normal distal interphalangeal joint. Soft tissue swelling. RAD/Finger(s) Min 2 Views IMPRESSION: Soft tissue swelling. Electronically Signed: Star Gonzalez MD at 13:47 EDT ,
[2024-05-09] MEDS: Diphth,Pertuss(Acell),Tet Vac 0.5 ML Vial IM (15:00)
--- NOTE | 2024-05-09 15:03 | EX.PCM.CON.S ---
HPI Consult Data Date of Consult: 05/09/24 HPI Narrative HPI Narrative: Date of Consult: 05/09/24 Jericho Helm is a 39-year-old [id number]-[id number] woman with past medical history of type 2 diabetes (formally on insulin but now better controlled with most recent hemoglobin A1c of 6.5), asthma, pots disease, and hypertension, who presents today to the emergency department as a transfer from an urgent care center out of concern for right index finger flexor tenosynovitis. She reports a dull steady pain in the right index finger that started 2 weeks ago. She does not think there was any major inciting trauma or puncture, but she may have hit it against something at some point. The pain in the right index finger became acutely worse 2 days ago, and has been severe for the past 24 hours. She reports feelings of general malaise, and inability to use the right hand secondary to the pain on the volar surface of the index finger that is radiating down into her palm. Today in the emergency department she has a blood sugar of 314 and is tachycardic to 112. White blood cell count is 10,000. Emergency room physician called me to rule out flexor tenosynovitis. She has not yet received any antibiotics. She last ate at 10 AM. 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 She is a former smoker (quit in 2017). [facility] Medical History Pott's disease Hypotension COVID-19 virus detected (02/12/21) History of syncope (08/2013) Asthma Dyslexia Migraine History of gestational diabetes Dysthymic disorder Essential hypertension Urinary tract infection Cervical paraspinal muscle spasm Depression Seizures Seizure disorder Type 2 diabetes mellitus Home Medications ?Medication ?Instructions ?Recorded ?Last Taken ?Type albuterol sulfate 90 mcg/actuation 2 puff inhalation Q4H PRN Asthma 07/29/21 Unknown History aerosol inhaler handicap placard #1 ea 12/18/22 Unknown Rx miscellaneous medical supply #1 ea 12/18/22 Unknown Rx (Blood Pressure Cuff) rosuvastatin 5 mg tablet 5 mg PO DAILY 11/08/23 05/09/24 History atorvastatin 20 mg tablet 20 mg PO DAILY 05/09/24 05/09/24 History empagliflozin 10 mg tablet 10 mg PO DAILY 05/09/24 05/09/24 History (Jardiance) gabapentin 100 mg capsule 100 mg PO TID 05/09/24 05/09/24 History lisinopril 40 mg tablet 40 mg PO DAILY 05/09/24 05/09/24 History mirtazapine 15 mg tablet 15 mg PO QHS 05/09/24 05/08/24 History trazodone 100 mg tablet 150 mg PO QHS PRN insomnia 05/09/24 05/08/24 History venlafaxine 150 mg 150 mg PO DAILY 05/09/24 05/09/24 History capsule,extended release 24 hr venlafaxine 37.5 mg 37.5 mg PO DAILY 05/09/24 05/09/24 History capsule,extended release 24 hr Allergy/AdvReac Type Severity Reaction Status Date / Time amoxicillin (From Augmentin) Allergy Unknown unknown Verified 05/09/24 11:09 clavulanic acid (From Allergy Unknown unknown Verified 05/09/24 11:09 Augmentin) codeine phosphate (From Allergy Swelling Verified 05/09/24 11:09 Tylenol-Codeine #3) shellfish derived Allergy Swelling Verified 05/09/24 11:09 venom-honey bee (bee venom Allergy Angioedema Verified 05/09/24 11:09 (honey bee)) Family History Mother Asthma Hypertension Breast cancer Diabetes Father Diabetes Hypertension Hyperlipidemia Grandmother Myocardial infarction Grandfather Cancer Lung Grandfather Cancer Throat Aunt Breast cancer Surgical History History of History of tubal ligation History of umbilical hernia repair History of cholecystectomy Social History Smoking Status: Former smoker how long ago did patient quit smokin years ago alcohol intake: never substance use type: does not use ROS ROS Narrative Review of systems completed and negative at this time aside from above-noted findings Vital Signs Vital Signs Vital Signs: 05/09/24 11:09 05/09/24 15:03 Temperature 97.7 F L Temperature Source Temporal Pulse Rate 112 H 87 Respiratory Rate 16 16 Blood Pressure 124/76 H 112/75 Blood Pressure Mean 92 87 Pulse Ox 99 98 Oxygen Delivery Method Room Air Room Air Weight Weight: 190 lb Body Mass Index (BMI) 33.6 Physical Exam Narrative Right upper extremity: Exquisite pain to palpation over the volar surface of the right index finger (RIF), worse over the P1 volar skin and worse over the A1 jason of the RIF. Pain with passive extension of the flexor tendon (through isolating the DIP joint and extending the RIF) -- this pain is notably radiating into the palm. The RIF base is swollen and TTP. The digit is resting in a flexed position. She is unable to use the right hand without triggering exquisite pain on the volar side of the right index finger and palm. No pain over the carpal tunnel. No pain over the volar surfaces of any of the other digits at this time, except for slight pain with palpation of the long finger A1 jason region as this causes referred pain back to the index finger. No pain in the wrist at this time. Motor: Able to bend and flex DIP, PIP, and MP joints, but limited ROM on the RIF 2/2 the swelling and pain. Sensory: 10/10 sensation to light touch on the radial and ulnar borders of the RIF. Negative Tinel sign over the CT. Vascular: RIF warm and well perfused. Const alert and oriented x3 Eyes EOMs intact bilaterally Neck General: normal visual inspection Lymph Lymphatic: no lymphadenopathy noted Resp normal respiratory effort and no retractions Cardio Rate: tachycardic GI non-distended Lab / Micro Data 05/09/24 12:35 05/09/24 12:35 Labs: Laboratory Results - last 24 hr 05/09/24 12:35: WBC 6.8, RBC 4.21, Hgb 12.8, Hct 37.8, MCV 89.8, MCH 30.4, MCHC 33.9, RDW Std Deviation 50.7 H, RDW Coeff of Caren 15.5 H, Plt Count 214, MPV 10.4, Immature Gran % (Auto) 1.000 H, Neut % (Auto) 69.7, Lymph % (Auto) 22.2, Braxton % (Auto) 6.0, Eos % (Auto) 0.4, Baso % (Auto) 0.7, Absolute Neuts (auto) 4.7, Absolute Lymphs (auto) 1.51, Nucleated RBC % 0, ESR 1, Sodium 135 L, Potassium 4.2, Chloride 104, Carbon Dioxide 26.0, Anion Gap 5, BUN 10, Creatinine 0.73, Estim Creat Clear Calc 107.66, Est GFR (MDRD) Af Amer 114, Est GFR (MDRD) Non-Af 94, BUN/Creatinine Ratio 13.7, Glucose 314 H, Lactic Acid 1.9, Calcium 8.8, C-React Prot Ext Range 3.83 H Imaging Radiology Impression X-ray from today: I reviewed imaging and did not see any fracture, dislocation, or foreign body Finger X-Ray 05/09/24 13:30 IMPRESSION: Soft tissue swelling. Electronically Signed: Star Gonzalez MD at 13:47 EDT , Assessment & Plan Assessment/Plan (1) Flexor tenosynovitis of finger: PLAN: Plan Jericho Helm is a 39-year-old syezt-gwsj-pggxyaow woman with past medical history of type 2 diabetes (formally on insulin but now better controlled with most recent hemoglobin A1c of 6.5), asthma, pots disease, and hypertension, who presents today to the emergency department as a transfer from an urgent care center out of concern for right index finger flexor tenosynovitis. I am concerned that she has flexor tenosynovitis of the right index finger. I talked to her about medical management early in the course of the disease with IV antibiotics (admission) and close follow-up. Her pain has gotten worse over the past couple of days and is radiating more proximally, and was most exacerbated by movement of the flexor tendon within the sheath on my exam. After discussing her options for conservative management with IV antibiotics versus incision and drainage of the A1 jason and flexor sheath distally (discussed planned incisions with the patient), she agreed with my plan for incision and drainage in the operating room followed by admission to medicine (given elevated sugars in the 300s and tachycardia). I talked her about possible need for carpal tunnel release if the purulence is tracking proximally. We talked about the further risks and benefits of surgery including damage to surrounding structures (most notably nerves), bleeding, pain, failure to obtain the desired result and need for repeat surgery. She understands that there will be multiple incisions and that there is a plan to irrigate the tendon sheath and take cultures. She signed surgical consent and photo consent. Photos were taken. Plan for operative intervention (incision and drainage right index finger infection/right hand infection) this afternoon. Continue n.p.o. Agree with emergency room plan to hold antibiotics at this time in order to get good cultures She will need an update on her Tdap (discussed with the emergency department and this was ordered) Visit Charges Office Visits / Consults: [id number] IP Consult L4 Patient Allergies Allergies Allergies: Allergies amoxicillin (From Augmentin) Allergy (Unknown, Verified 05/09/24 11:09) unknown clavulanic acid (From Augmentin) Allergy (Unknown, Verified 05/09/24 11:09) unknown codeine phosphate (From Tylenol-Codeine #3) Allergy (Verified 05/09/24 11:09) Swelling shellfish derived Allergy (Verified 05/09/24 11:09) Swelling venom-honey bee (bee venom (honey bee)) Allergy (Verified 05/09/24 11:09) Angioedema Vital Signs Temperature Temperature: 97.7 F Pulse Pulse Rate: 87 Respirations Respiratory Rate: 16 Pulse Oximetry: 98 Oxygen Delivery Method: Room Air Blood Pressure Blood Pressure: 112/75 Blood Pressure Mean: 87
[2024-05-09 15:16] LABS: Bedside Glucose 172 mg/dL (74-106)
--- NOTE | 2024-05-09 15:24 | PCM.HP.STD ---
HPI - General General Date of Admission: 05/09/24 Date of Service: 05/09/24 Chief Complaint: Right index finger tenosynovitis HPI Narrative REINALDO WARREN, is a 39y/o female with history of asthma, HTN, DMII, and depression who presented to [facility] ED 05/09/2024 with right index finger pain. No inciting incident or trauma but for 2 to 3 weeks and had worsening pain and swelling. It is worsened further over the past 2 to 3 days. Went to urgent care who sent her to the ED for evaluation. In ED white blood cell count within normal limits, x-ray just showed soft tissue swelling and lab workup overall fairly unremarkable aside from glucose of 314. Hand surgeon evaluated patient in the ED and recommended admission for surgery. Given patient's diabetes provider asked for medical admission with surgical consult. Patient evaluated at bedside. Patient reports that over the past couple weeks she has had increasing pain and swelling in her right index finger with no inciting incident or bug bites, nothing like this has happened before, no substance use, no fevers or chills, has no other complaints today. Does have diabetes and no longer is on insulin, only takes orals and does not check her glucose at home. [facility] Medical History (Updated 05/09/24 @ 15:[address] Trupti Sheridan MD) Asthma Cervical paraspinal muscle spasm COVID-19 virus detected (02/12/21) Depression Dyslexia Dysthymic disorder Essential hypertension History of gestational diabetes History of syncope (08/2013) Hypotension Migraine Pott's disease Seizure disorder Seizures Type 2 diabetes mellitus Urinary tract infection Home Medications ?Medication ?Instructions ?Recorded ?Last Taken ?Type albuterol sulfate 90 mcg/actuation 2 puff inhalation Q4H PRN Asthma 07/29/21 Unknown History aerosol inhaler handicap placard #1 ea 12/18/22 Unknown Rx miscellaneous medical supply #1 ea 12/18/22 Unknown Rx (Blood Pressure Cuff) rosuvastatin 5 mg tablet 5 mg PO DAILY 11/08/23 05/09/24 History atorvastatin 20 mg tablet 20 mg PO DAILY 05/09/24 05/09/24 History empagliflozin 10 mg tablet 10 mg PO DAILY 05/09/24 05/09/24 History (Jardiance) gabapentin 100 mg capsule 100 mg PO TID 05/09/24 05/09/24 History lisinopril 40 mg tablet 40 mg PO DAILY 05/09/24 05/09/24 History mirtazapine 15 mg tablet 15 mg PO QHS 05/09/24 05/08/24 History trazodone 100 mg tablet 150 mg PO QHS PRN insomnia 05/09/24 05/08/24 History venlafaxine 150 mg 150 mg PO DAILY 05/09/24 05/09/24 History capsule,extended release 24 hr venlafaxine 37.5 mg 37.5 mg PO DAILY 05/09/24 05/09/24 History capsule,extended release 24 hr Allergy/AdvReac Type Severity Reaction Status Date / Time amoxicillin (From Augmentin) Allergy Unknown unknown Verified 05/09/24 11:09 clavulanic acid (From Allergy Unknown unknown Verified 05/09/24 11:09 Augmentin) codeine phosphate (From Allergy Swelling Verified 05/09/24 11:09 Tylenol-Codeine #3) shellfish derived Allergy Swelling Verified 05/09/24 11:09 venom-honey bee (bee venom Allergy Angioedema Verified 05/09/24 11:09 (honey bee)) Family History Mother Asthma Hypertension Breast cancer Diabetes Father Diabetes Hypertension Hyperlipidemia Grandmother Myocardial infarction Grandfather Cancer Lung Grandfather Cancer Throat Aunt Breast cancer Surgical History History of History of cholecystectomy History of tubal ligation History of umbilical hernia repair Social History Smoking Status: Former smoker how long ago did patient quit smokin years ago alcohol intake: never substance use type: does not use ROS ROS Narrative General: Denies fever/chills HENT: Denies headache, denies stuffy nose, denies sore throat EYES: Denies changes in vision Resp: Denies cough, denies shortness of breath Cardiac: Denies chest pain GI: Denies abdominal pain, denies changes in bowel, denies nausea/vomiting : Denies changes in urination Extremity: Right index finger swelling and pain MSK: Denies weakness Neuro: Denies any numbness/tingling Heme: Denies any bleeding or bruising Skin: Denies rashes Psychiatric: No complaints voiced Vital Signs Vital Signs Vital Signs: 05/09/24 11:09 05/09/24 15:03 05/09/24 15:03 Temperature 97.7 F L 97.7 F L Temperature Source Temporal Pulse Rate 112 H 87 87 Respiratory Rate 16 16 16 Blood Pressure 124/76 H 112/75 112/75 Blood Pressure Mean 92 87 87 Pulse Ox 99 98 98 Oxygen Delivery Method Room Air Room Air 05/09/24 15:09 Temperature 97.7 F L Temperature Source Pulse Rate 87 Respiratory Rate 16 Blood Pressure 112/75 Blood Pressure Mean 87 Pulse Ox 98 Oxygen Delivery Method Room Air Weight Weight: 86.183 kg Body Mass Index (BMI) 33.6 Physical Exam Narrative General: Alert, oriented, no apparent distress HEENT: Atraumatic, normocephalic Eyes: Anicteric, normal conjunctiva, extraocular movements grossly intact Neck: Supple Respiratory: Clear to auscultation bilaterally, normal respiratory effort Cardiovascular: Regular rate and rhythm GI: Soft, nontender, nondistended Extremities: No edema Musculoskeletal: Moving all extremities, pain on movement of right index finger and there is pain diffusely and swelling Neuro: No overt focal neurological deficits Skin: No rashes appreciated Psych: Cooperative Results Lab / Micro Data 05/09/24 12:35 05/09/24 12:35 Labs: Laboratory Results - last 24 hr 05/09/24 12:35: WBC 6.8, RBC 4.21, Hgb 12.8, Hct 37.8, MCV 89.8, MCH 30.4, MCHC 33.9, RDW Std Deviation 50.7 H, RDW Coeff of Caren 15.5 H, Plt Count 214, MPV 10.4, Immature Gran % (Auto) 1.000 H, Neut % (Auto) 69.7, Lymph % (Auto) 22.2, Mcclain % (Auto) 6.0, Eos % (Auto) 0.4, Baso % (Auto) 0.7, Absolute Neuts (auto) 4.7, Absolute Lymphs (auto) 1.51, Nucleated RBC % 0, ESR 1, Sodium 135 L, Potassium 4.2, Chloride 104, Carbon Dioxide 26.0, Anion Gap 5, BUN 10, Creatinine 0.73, Estim Creat Clear Calc 107.66, Est GFR (MDRD) Af Amer 114, Est GFR (MDRD) Non-Af 94, BUN/Creatinine Ratio 13.7, Glucose 314 H, Lactic Acid 1.9, Calcium 8.8, C-React Prot Ext Range 3.83 H 05/09/24 14:58: POC Glucose 172 H Imaging Radiology Impression Finger X-Ray 05/09/24 13:30 IMPRESSION: Soft tissue swelling. Electronically Signed: Star Gonzalez MD at 13:47 EDT , Assessment & Plan Assessment/Plan (1) Flexor tenosynovitis of finger: (2) Type 2 diabetes mellitus: (3) Depression: (4) HTN (hypertension): PLAN: Plan #Type 2 diabetes mellitus -Glucose checks and sliding scale insulin -Check hemoglobin A1c in am -Hold home oral hypoglycemics #Right index finger swelling -Advised to hold off on IV antibiotics and make patient n.p.o. -Surgery consult -Management per surgeon # History of asthma -Albuterol as needed #Depression -Continue home medications #HTN -Pt for surgery, holding lisinopril, can resume post op if BP okay #DVT ppx: scds Trupti Sheridan MD Charges/Coding Visit Charges Inpatient E&M: 33477 Init Hosp L1
[2024-05-09] MEDS: Lidocaine 1% /Epi 1:100 (20ml) 20 ML Vial (15:27)
[2024-05-09] MEDS: Lactated Ringers 1,000 ML 15 ML IV ×2 (15:28→18:14)
--- NOTE | 2024-05-09 15:33 | PCM.PRE.AN2 ---
ASA Classification* ASA Classification ASA Classification: 2 and E Assessment & Plan Anesthesia* Anesthesia Assessment Anesthesia Assessment: Discussed sedation and/or anesthesia options, risks, benefits, and alternatives with patient/parents/legal guardian/POA. Questions invited. The patient/parents/legal guardian/POA seems to understand and agrees to proceed with anesthesia plan. Reviewed the physical assessment, medical history, allergy history and patient home medications list prior to surgery/procedure/anesthetic and documented any changes. Performed airway and anesthesia risk assessments. Anesthesia Type Anesthesia Type: General (*see written pre anesthesia record for full assessment) Anesthesia Focused Assessment* Temperature: 97.7 F Pulse Rate: 87 Blood Pressure: 112/75 Respiratory Rate: 16 Pulse Ox: 98 Airway Assessment Mouth opens: >3 cm Mallampati Score: II Focused Labs Anesthesia Preop lab: CBC WBC 6.8 K/mm3 (4.4-11.0) 05/09/24 12:35 RBC 4.21 M/mm3 (4.2-5.4) 05/09/24 12:35 Hgb 12.8 g/dL (12.0-15.0) 05/09/24 12:35 Hct 37.8 % (37-47) 05/09/24 12:35 Plt Count 214 K/mm3 (150-450) 05/09/24 12:35 CHEMISTRY Potassium 4.2 mmol/L (3.5-5.1) 05/09/24 12:35 Sodium 135 mmol/L (136-145) L 05/09/24 12:35 Magnesium 2.2 mg/dL (1.6-2.6) 05/25/23 15:12 BUN 10 mg/dL (7-18) 05/09/24 12:35 Creatinine 0.73 mg/dL (0.55-1.02) 05/09/24 12:35 Glucose 314 mg/dL (74-106) H 05/09/24 12:35 POC Glucose 172 mg/dL (74-106) H 05/09/24 14:58 TSH 2.38 uIU/mL (0.358-3.74) 05/25/23 15:12 COAG PT 13.3 SECONDS (11.7-14.9) 06/20/17 09:30 Urine Test Negative Negative 02/24/21 14:10 Pre-Assessment Diagnosis/Proposed Procedure Planned Operative Procedure(s): i and D of hand Anesthesia History 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 When Was Last Pacemaker Check QUESTION #4 FULL TEXT: You/Your Family Experience fever (hyperthermia) with Anesthesia Last Oral Intake Last Oral intake: Last Oral Intake NPO since Meds taken in AM with sips of water? 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 - automatic grinder operator: PONV - automatic grinder operator Female HX of Motion Sickness HX of N/V After Surgery Non-Smoker Duration of Surgery greater than 60 minutes Number of Risk Factors PONV Score Height & Weight Height & Weight: Anesthesia: Height & Weight Height 5 ft 3 in 05/09/24 11:09 Weight: 86.183 kg 05/09/24 11:09 Body Mass Index (BMI) 33.6 05/09/24 11:09 Respiratory Assessment Respiratory Assessment - automatic grinder operator: Respiratory Tract Infection Hx - automatic grinder operator Hx Respiratory Tract Infection No 08/13/19 08:43 STOP Sleep Apnea STOP Sleep Apnea - automatic grinder operator: STOP Sleep Apnea - automatic grinder operator Hx Hypertension Yes 02/12/21 23:30 Hx Sleep Apnea No 02/12/21 23:30 CPAP No 08/14/19 10:59 BIPAP No 08/13/19 08:43 Do you snore loudly (louder than talking or can be heard Do you often feel tired/ fatigued/ sleepy during daytime? Has anyone observed you stop breathing during sleep? STOP Results QUESTION #5 FULL TEXT : Do you snore loudly (louder than talking or can be heard through closed doors)? Tobacco Use History Tobacco Use History - automatic grinder operator: Tobacco Use History - automatic grinder operator Tobacco Use Non-smoker 02/24/21 13:43 Smoking Status Former smoker 05/09/24 11:30 Hx Tobacco Use No 12/10/19 11:30 Years Smoking Packs Smoked per Day Smoking Cessation Date was Yes - quit smoking within 15 05/09/24 11:30 within the last 15 years years Hx Smoking Cessation Date 10/08/18 05/09/24 11:30 Hx Smoking Cessation Counseling Hematologic Medial History Hematologic Hx - automatic grinder operator: Hematologic Medical Hx - edi developer Hx of Blood Transfusion Hx of Transfusion in last 3 Months Date of Last Transfusion (if within last 3 months) Ever experience any problems with transfusion(s)? Specify any problems Hx of Preganancy in last 3 Months Nurse Filling Out Transfusion & Questions: Date: Time: Patient unable to answer at this time (ie. confused, unrespo /Reproduction History /Reproductive History - automatic grinder operator: /Reproductive Hx- automatic grinder operator Hx Now Gestational Age (in weeks): EDC: Hx Hx Para Hx Section SAB No 05/09/24 11:09 Active Medications Active Medications: Current Medications Generic Name Dose Route Start Last Admin Trade Name Freq PRN Reason Stop Dose Admin Lactated Ringer's 1,000 mls @ 15 mls/hr 05/09/24 15:30 05/09/24 15:28 IV 15 mls/hr .Q48H NORA Administration PFSH Medical History Pott's disease Hypotension COVID-19 virus detected (02/12/21) History of syncope (08/2013) Asthma Dyslexia Migraine History of gestational diabetes Dysthymic disorder Essential hypertension Urinary tract infection Cervical paraspinal muscle spasm Depression Seizures Seizure disorder Type 2 diabetes mellitus Home Medications ?Medication ?Instructions ?Recorded ?Last Taken ?Type albuterol sulfate 90 mcg/actuation 2 puff inhalation Q4H PRN Asthma 07/29/21 Unknown History aerosol inhaler handicap placard #1 ea 12/18/22 Unknown Rx miscellaneous medical supply #1 ea 12/18/22 Unknown Rx (Blood Pressure Cuff) rosuvastatin 5 mg tablet 5 mg PO DAILY 11/08/23 05/09/24 History atorvastatin 20 mg tablet 20 mg PO DAILY 05/09/24 05/09/24 History empagliflozin 10 mg tablet 10 mg PO DAILY 05/09/24 05/09/24 History (Jardiance) gabapentin 100 mg capsule 100 mg PO TID 05/09/24 05/09/24 History lisinopril 40 mg tablet 40 mg PO DAILY 05/09/24 05/09/24 History mirtazapine 15 mg tablet 15 mg PO QHS 05/09/24 05/08/24 History trazodone 100 mg tablet 150 mg PO QHS PRN insomnia 05/09/24 05/08/24 History venlafaxine 150 mg 150 mg PO DAILY 05/09/24 05/09/24 History capsule,extended release 24 hr venlafaxine 37.5 mg 37.5 mg PO DAILY 05/09/24 05/09/24 History capsule,extended release 24 hr Allergy/AdvReac Type Severity Reaction Status Date / Time amoxicillin (From Augmentin) Allergy Unknown unknown Verified 05/09/24 11:09 clavulanic acid (From Allergy Unknown unknown Verified 05/09/24 11:09 Augmentin) codeine phosphate (From Allergy Swelling Verified 05/09/24 11:09 Tylenol-Codeine #3) shellfish derived Allergy Swelling Verified 05/09/24 11:09 venom-honey bee (bee venom Allergy Angioedema Verified 05/09/24 11:09 (honey bee)) Family History Mother Asthma Hypertension Breast cancer Diabetes Father Diabetes Hypertension Hyperlipidemia Grandmother Myocardial infarction Grandfather Cancer Lung Grandfather Cancer Throat Aunt Breast cancer Surgical History History of History of tubal ligation History of umbilical hernia repair History of cholecystectomy Social History Smoking Status: Former smoker how long ago did patient quit smokin years ago alcohol intake: never substance use type: does not use Review of Systems (Anesthesia) ROS Narrative System reviewed and no additional complaints, except as documented.
[2024-05-09] MEDS: Clindamycin 900 MG/50 ML BAG 75 MG IV (16:50)
--- NOTE | 2024-05-09 17:28 | PCM.POST.ANE ---
Anesthesia: Postop Eval I Current Vital Signs Temperature: 97 F Pulse Rate: 102 Blood Pressure: 112/71 Respiratory Rate: 16 Pulse Ox: 95 Oxygen Delivery Method: Room Air Assessment Airway patent: Yes Spontaneous unlabored respirations: Yes Mental status: Awake and Calm nausea: No Vomiting: No Anesthesia Complication: No Fluid Hydration Crystalloid volume administer (ml): 900 Total IV fluid infused: 900 Progress Note Anesthesia document: Postop Eval 1 completed: Yes
--- NOTE | 2024-05-09 17:29 | PCM.POSTANE2 ---
Anesthesia Postop Eval I Sum Postop Eval Completion status Anesthesia document: Postop Eval 1 completed: Yes Anesthesia Postop Eval I Summary Anesthesia Postop Eval I Summary: Anesthesia Postop Eval I: Assessment Summary Airway patent Yes 05/09/24 17:29 Spontaneous unlabored Yes 05/09/24 17:29 respirations Mental status Awake,Calm 05/09/24 17:29 nausea No 05/09/24 17:29 Vomiting No 05/09/24 17:29 Anesthesia Postop Eval I: Fluid Summary Crystalloid volume administer 900 05/09/24 17:29 (ml) Colloids volume administered ( ml) Blood Product volume administered (ml) Total IV fluid infused 900 05/09/24 17:29 Anesthesia Postop Eval I: Summary Notes Anesthesia Complication No 05/09/24 17:29 Anesthesia Complication Comment: Post-operative progress note Anesthesia: Postop Eval II Evaluation Mental status: Awake and Calm Pain Level: 1 nausea: No Vomiting: No Complications Anesthesia Complication: No
--- NOTE | 2024-05-09 17:32 | PCM.POST.ANE ---
Anesthesia: Postop Eval I Current Vital Signs Temperature: 95 F Pulse Rate: 98 Blood Pressure: 112/71 Respiratory Rate: 14 Pulse Ox: 95 Assessment Airway patent: Yes Spontaneous unlabored respirations: Yes nausea: No Vomiting: No Anesthesia Complication: No Fluid Hydration Crystalloid volume administer (ml): 1 Total IV fluid infused: 1 Progress Note Anesthesia document: Postop Eval 1 completed: Yes
--- NOTE | 2024-05-09 17:33 | PCM.POSTANE2 ---
Anesthesia Postop Eval I Sum Postop Eval Completion status Anesthesia document: Postop Eval 1 completed: Yes Anesthesia Postop Eval I Summary Anesthesia Postop Eval I Summary: Anesthesia Postop Eval I: Assessment Summary Airway patent Yes 05/09/24 17:32 Spontaneous unlabored Yes 05/09/24 17:32 respirations Mental status Awake,Calm 05/09/24 17:29 nausea No 05/09/24 17:32 Vomiting No 05/09/24 17:32 Anesthesia Postop Eval I: Fluid Summary Crystalloid volume administer 1 05/09/24 17:32 (ml) Colloids volume administered ( ml) Blood Product volume administered (ml) Total IV fluid infused 1 05/09/24 17:32 Anesthesia Postop Eval I: Summary Notes Anesthesia Complication No 05/09/24 17:32 Anesthesia Complication Comment: Post-operative progress note Anesthesia: Postop Eval II Evaluation Mental status: Asleep Pain Level: 0 nausea: No Vomiting: No
--- NOTE | 2024-05-09 17:46 | PCM.OP.BLANK ---
Problems Associated Problem List Diagnoses (1) Flexor tenosynovitis of finger: Operative Report Date of Procedure: 05/09/24 Surgery/Procedure Date: 09 May 2024 Incision/Procedure Start Time: 16:34 Incision Close/Procedure End Time: 17:10 Surgeon: Zachary Platt MD Pre-Op/Pre-Procedure Diagnosis: Right index finger flexor tenosynovitis. Post-Op/Post-Procedure Diagnosis:Same Procedure(s): 1.? Incision and drainage of right index finger with A1 jason release (and A5 jason release) for the treatment of flexor tenosynovitis, CPT code (43423) Anesthesia: General Local: 10 cc of 1% lidocaine with epinephrine EBL: 5 cc Antibiotics: clindamycin 900 mg IV for intraoperative antibiotic Intraoperative fluids: 900 cc of normal saline Findings: Thickened and inflamed synovium at the level of the A1 jason with clear yellow drainage around the tendon within the sheath Indications: Jericho Helm is a 39-year-old RHD, type II diabetic who presented to the emergency department today as a transfer from an outside urgent care out of concern for right index finger flexor tenosynovitis. Upon arrival she had tachycardia and blood sugars in the 300s. She reported that she had pain in the finger for a couple of weeks but that the pain became acutely worse over the last 2 days. She did not feel well and was complaining of exquisite pain in the right index finger, so bad that she could not use her right hand. On my exam, she had all 4 Kan[place] signs including another concerning sign which was pain radiating into the palm and pain over the A1 jason. She was taken to the operating room for incision and drainage. Procedure Details: Consent was obtained preoperatively.? Patient was brought to the operating room and placed in the supine position with an armboard in place and a tourniquet on the right upper extremity on the arm. SCDs were placed and were on and activated for induction. We held antibiotics until cultures were obtained. A sign in was completed and general anesthesia was induced.? The right upper extremity was then prepped and draped in sterile fashion and a timeout was performed. Using a 15 blade scalpel, a curvilinear incision was made over the right index finger A1 jason in the palm, and dissection was carefully taken with tenotomy scissors down to the A1 jason and A1 jason was released longitudinally with a 15 blade scalpel. Care was taken to protect the neurovascular bundles. The A1 jason was thick and appeared inflamed, and there was clear yellow fluid around the tendon. This fluid and inflammatory tissue was cultured (regular and anaerobic). I attempted to milk purulence from the palm (from proximally) but there was none, and therefore we decided not to explore the carpal tunnel. We then turned our attention distally to make a counterincision over the A5 jason to vent the tendon distally and ensure that we irrigated the entire tendon sheath along the index finger. A Ancelmo style incision was made over the P2/P3 volar surface and dissection was taken carefully down to the A5 jason, carefully retracting the radial and lateral neurovascular bundles out of the surgical field. The A5 jason was then vented with a longitudinal incision using a 15 blade scalpel. A 24-gauge Angiocath was then used to irrigate with NS within the tendon sheath, and it was confirmed that the irrigation was being delivered through the tendon sheath because it was exiting through the A1 jason incision on the palm. 100 cc of NS was irrigated through the tendon sheath, and an additional 2 liters of NS was used to irrigate the proximal and distal wounds over the vented pulleys. We then let the tourniquet down. There was minimal bleeding that was stopped with bipolar electrocautery. 10 cc of 1% lidocaine with 1:1,000,000 epi was used for a local block. The incisions were left open. The patient tolerated the procedure well and was extubated. The distal index finger was warm and well perfused. All counts were correct at the completion of the case. Specimens: Two cultures Complications: No immediate post-operative complications POST OPERATIVE PLAN: Patient is being admitted for medical management by the inpatient medicine team. We will start broad-spectrum antibiotics and wait for cultures to result. Plan to elevate RUE tonight with blue arm elevator and begin three times per day dial soap soaks with dry dressing starting tomorrow morning. PSU to follow. Same as above
--- NOTE | 2024-05-09 17:50 | SUR.PHASEI ---
bgl, 179 in pacu
[2024-05-09 18:13] LABS: Bedside Glucose 179 mg/dL (74-106)
[2024-05-09] MEDS: Insulin Lispro 100 UNIT/ML INSULN.PEN SC ×2 (18:18→21:48)
[2024-05-09 18:36] LABS: Bedside Glucose 190 mg/dL (74-106)
[2024-05-09] MEDS: Ceftriaxone 2 GM in 0.9% Normal Saline (50mL MB+) 50 ML IV (19:48)
[2024-05-09] MEDS: 0.9% Normal Saline (250mL Bag) 250 ML 15 ML IV (19:48)
[2024-05-09] MEDS: Acetaminophen 500 MG Tablet 1000 MG PO (19:49)
[2024-05-09] MEDS: Ketorolac 30 MG/ML Syringe IV (21:38)
[2024-05-09] MEDS: MELATONIN 3 MG TABLET PO (21:39)
[2024-05-09] MEDS: Gabapentin 100 MG Capsule PO (21:39)
[2024-05-09] MEDS: 0.9% Saline Lock 10 ML Syringe IV (21:39)
[2024-05-09] MEDS: Vancomycin HCl 2,000 MG in 0.9% Normal Saline (500mL Bag) 500 ML 250 MG IV (21:39)
[2024-05-09] MEDS: Mirtazapine 15 MG Tablet PO (21:39)
[2024-05-09 22:12] LABS: Bedside Glucose 300 mg/dL (74-106)
--- NOTE | 2024-05-09 22:58 | PCM.RX.CS ---
Consult Antibiotic Management Pharmacy has been consulted to manage selected antibiotic: Vancomycin Type of Intervention Type of Consult: New start Labs Labs: Sodium 135 mmol/L (136-145) L 05/09/24 12:35 Potassium 4.2 mmol/L (3.5-5.1) 05/09/24 12:35 Chloride 104 mmol/L (98-107) 05/09/24 12:35 Carbon Dioxide 26.0 mmol/L (21.0-32.0) 05/09/24 12:35 Anion Gap 5 (5-15) 05/09/24 12:35 BUN 10 mg/dL (7-18) 05/09/24 12:35 Creatinine 0.73 mg/dL (0.55-1.02) 05/09/24 12:35 Est GFR (MDRD) Af Amer 114 mL/min (>60) 05/09/24 12:35 Est GFR (MDRD) Non-Af 94 mL/min (>60) 05/09/24 12:35 BUN/Creatinine Ratio 13.7 RATIO (10-20) 05/09/24 12:35 Glucose 314 mg/dL (74-106) H 05/09/24 12:35 Dosing Weight Weight used for dosin.2 kg Estimated Creatinine Clearance Estimated Creatinine Clearance: 107 Goal Trough Goal Trough: 15-20 mcg/mL Pharmacy Plan for Drug Dosing Pharmacy Plan for Drug Dosing: Pharmacy Service will continue to monitor and adjust dosing as required. Follow-Up Labs Follow-Up Labs: Trough: Vancomycin Date/Time Labs Ordered Labs to be done on [date and time ordered]: 05/10/24 @2100
[2024-05-10] MEDS: Gabapentin 100 MG Capsule PO ×3 (04:50→22:29)
[2024-05-10] MEDS: Acetaminophen 500 MG Tablet 1000 MG PO ×3 (04:50→22:28)
[2024-05-10] MEDS: Vancomycin IV 1,000 MG/200 ML BAG 200 MG IV ×2 (04:50→13:43)
[2024-05-10 04:55] VITALS: BP 98/58; PULSE 70; RESP 16; TEMP 36.1; O2SAT 98
[2024-05-10] MEDS: Ketorolac 30 MG/ML Syringe IV ×3 (06:02→16:51)
[2024-05-10] MEDS: Insulin Lispro 100 UNIT/ML INSULN.PEN SC ×4 (06:03→22:34)
[2024-05-10] MEDS: 0.9% Saline Lock 10 ML Syringe IV (06:04)
[2024-05-10 06:27] LABS: Bedside Glucose 203 mg/dL (74-106)
--- NOTE | 2024-05-10 07:34 | PCM.PN.BLA ---
Progress Note Patient doing well this morning. Pain much improved per patient report. AFVSS. Sugar better this morning. NGTD on cultures . Gram stain not back yet. Physical Exam Narrative Gen: Non-toxic Extremity: RUE: Dressings removed. No purulence from incisions. Able to bend and extend right index finger today (improvement from yesterday). Placed in a Dial soap soak with nursing. Assessment & Plan Assessment/Plan (1) Flexor tenosynovitis of finger: PLAN: Plan Jericho Helm Olena is a 39 YO female who is POD 1 from incision and drainage of the right index finger for flexor tenosynovitis. TID soap soaks today with dry dressing. Continue elevation of RUE. F/u culture data and continue IV antibiotics OK for diet Visit Charges Inpatient E&M: 53253 Subs Hosp L2 (Examined patient personally )
--- NOTE | 2024-05-10 07:36 | NURSING ---
Dr. Platt visited and saw pt wound, chan allan completed, new dsg applied
[2024-05-10 07:38] LABS: Absolute Lymphocyte Count 1.18 X10^3/uL (0.83-4.51); Absolute Neutrophil Count 7.8 X10^3/uL (2.0-7.7); Basophil# 0.02 X10^3/uL; Basophil% 0.2 % (0-1); Eosinophil# 0.01 X10^3/uL; Eosinophils% 0.1 % (0-5); Hematocrit 34.3 % (37-47); Lymphocyte # 1.18 X10^3/ul (0.83-4.51); Lymphocyte % 12.4 % (19-41); Mean Corpuscular Hgb 31.5 pg (27.0-32.0); Mean Platelet Vol. 10.4 fl (6.2-12.0); Monocyte# 0.43 X10^3/uL; Monocyte% 4.5 % (0-10); NRBC Flagged by Analyzer 0 % (0-5); Neutrophil % 82.2 % (47-70); Platelet Count 214 K/mm3 (150-450); RBC Distribution Width SD 50.1 fl (35.1-43.9); Red Blood Count 3.81 M/mm3 (4.2-5.4); White Blood Count 9.5 K/mm3 (4.4-11.0)
[2024-05-10 08:00] VITALS: BP 106/68; PULSE 72; RESP 16; TEMP 36.3; O2SAT 100
[2024-05-10] MEDS: oxyCODONE 5 MG Tablet PO ×3 (08:15→19:41)
[2024-05-10 08:19] LABS: Hemoglobin A1c 6.2 % (3.8-5.6)
[2024-05-10 08:22] LABS: AST(SGOT) 38 U/L (15-37); Alanine Aminotransfer ALT/SGPT 45 U/L (13-56); Albumin, Serum 3.1 g/dL (3.2-5.0); Alkaline Phosphatase 86 U/L (45-117); Anion Gap 7 (5-15); BUN 14 mg/dL (7-18); BUN/Creat Ratio 18.5 RATIO (10-20); Calcium,Total 8.4 mg/dL (8.5-10.1); Chloride 105 mmol/L (98-107); Creatinine, Serum 0.76 mg/dL (0.55-1.02); EST Glomerular Filtration Rate 90 mL/min (>60); Est Glom Filt Rate - Afr Amer 109 mL/min (>60); Estimated Creatinine Clearance 103.41 ml/min; Globulin 3.1 g/dL (2.2-4.2); Glucose 188 mg/dL (74-106); Potassium 4.2 mmol/L (3.5-5.1); Protein, Total 6.2 g/dL (6.4-8.2); Sodium Level 138 mmol/L (136-145)
[2024-05-10] MEDS: Venlafaxine XR 150 MG Capsule PO (10:24)
[2024-05-10] MEDS: Ceftriaxone 2 GM in 0.9% Normal Saline (50mL MB+) 50 ML IV (10:24)
[2024-05-10] MEDS: Venlafaxine XR 37.5 MG Capsule PO (10:24)
[2024-05-10] MEDS: Atorvastatin Calcium 20 MG Tablet PO (10:27)
--- NOTE | 2024-05-10 10:28 | PN.HOSP_ITS ---
Reason for Visit Reason for Visit: Diagnoses Type 2 diabetes mellitus without complications (05/09/24) Major depressive disorder, single episode, unspecified (05/09/24) Essential (primary) hypertension (05/09/24) Synovitis and tenosynovitis, unspecified (05/09/24) Subjective Subjective Saw patient at bedside this morning. Patient sitting up comfortably in bed, in no acute distress. Plastic surgery has seen her this morning and unwrapped her hand, and per their notes her hand is healing well after the procedure yesterday. She was able to bend and extend the right finger this morning for plastics. When I saw her, the hand had been rewrapped. She denied any acute pain or discomfort in the hand. She otherwise was feeling well, no other acute concerns today. Objective Data Objective Data Vital Signs: Vital Signs Temp Pulse Resp BP Pulse Ox O2 Del Method 97 F L 70 16 98/58 L 98 Room Air 05/10/24 04:55 05/10/24 04:55 05/10/24 04:55 05/10/24 04:55 05/10/24 04:55 05/10/24 04:55 Oxygen Delivery Method Room Air Weight: 86.183 kg Body Mass Index (BMI) 33.6 Intake & Output: Intake and Output for Last 24 Hours 05/08/24 05/09/24 05/10/24 23:59 23:59 23:59 Intake Total 1732.50 / 1732.50 280.25 / 280.25 Balance 1732.50 / 1732.50 280.25 / 280.25 Lab / Micro Data 05/10/24 07:00 05/10/24 07:00 Labs: Laboratory Results - last 24 hr 05/09/24 12:35: WBC 6.8, RBC 4.21, Hgb 12.8, Hct 37.8, MCV 89.8, MCH 30.4, MCHC 33.9, RDW Std Deviation 50.7 H, RDW Coeff of Caren 15.5 H, Plt Count 214, MPV 10.4, Immature Gran % (Auto) 1.000 H, Neut % (Auto) 69.7, Lymph % (Auto) 22.2, Curry % (Auto) 6.0, Eos % (Auto) 0.4, Baso % (Auto) 0.7, Absolute Neuts (auto) 4.7, Absolute Lymphs (auto) 1.51, Nucleated RBC % 0, ESR 1, Sodium 135 L, Potassium 4.2, Chloride 104, Carbon Dioxide 26.0, Anion Gap 5, BUN 10, Creatinine 0.73, Estim Creat Clear Calc 107.66, Est GFR (MDRD) Af Amer 114, Est GFR (MDRD) Non-Af 94, BUN/Creatinine Ratio 13.7, Glucose 314 H, Lactic Acid 1.9, Calcium 8.8, C-React Prot Ext Range 3.83 H 05/09/24 14:58: POC Glucose 172 H 05/09/24 17:49: POC Glucose 179 H 05/09/24 18:17: POC Glucose 190 H 05/09/24 21:47: POC Glucose 300 H 05/10/24 06:01: POC Glucose 203 H 05/10/24 07:00: WBC 9.5, RBC 3.81 L, Hgb 12.0, Hct 34.3 L, MCV 90.0, MCH 31.5, MCHC 35.0, RDW Std Deviation 50.1 H, RDW Coeff of Caren 15.0 H, Plt Count 214, MPV 10.4, Immature Gran % (Auto) 0.600, Neut % (Auto) 82.2 H, Lymph % (Auto) 12.4 L, Curry % (Auto) 4.5, Eos % (Auto) 0.1, Baso % (Auto) 0.2, Absolute Neuts (auto) 7.8 H, Absolute Lymphs (auto) 1.18, Nucleated RBC % 0, Sodium 138, Potassium 4.2, Chloride 105, Carbon Dioxide 26.0, Anion Gap 7, BUN 14, Creatinine 0.76, Estim Creat Clear Calc 103.41, Est GFR (MDRD) Af Amer 109, Est GFR (MDRD) Non-Af 90, BUN/Creatinine Ratio 18.5, Glucose 188 H, Hemoglobin A1c 6.2 H, Calcium 8.4 L, Total Bilirubin 1.00, AST 38 H, ALT 45, Alkaline Phosphatase 86, Total Protein 6.2 L, Albumin 3.1 L, Globulin 3.1, Albumin/Globulin Ratio 1.0 Radiography Diagnostic Testing: Radiology Impression Finger X-Ray 05/09/24 13:30 IMPRESSION: Soft tissue swelling. Electronically Signed: Star Gonzalez MD at 13:47 EDT , Physical Exam Const alert, oriented x3, no apparent distress, healthy appearing and well nourished Constitutional Narrative: Pleasant middle-age female, obese, sitting up comfortably in bed, conversing normally, no acute distress. General Appearance: cooperative and comfortable HEENT normocephalic, head/scalp atraumatic, hearing grossly normal bilaterally, nasal mucous membranes and turbinates normal and moist oral mucous membranes Eyes PERRL, EOMs intact bilaterally and conjunctivae normal Neck full ROM Chest inspection of chest normal Resp normal respiratory effort, normal air movement, no use of accessory muscles and clear to auscultation bilaterally Cardio regular rate, regular rhythm, no murmurs and peripheral pulses 2+ throughout GI normal to inspection, nondistended, normoactive bowel sounds, soft to palpation, non-tender and non-distended Back/Spine normal ROM Extremity Extremity Narrative: Right hand and index finger wrapped from base of hand up to tip of the index finger. Wrap appears clean and dry. Neuro no focal motor deficits and no sensory deficits noted Speech: speech normal Psych mental status grossly normal Assessment & Plan Assessment/Plan (1) Flexor tenosynovitis of finger: (2) Type 2 diabetes mellitus: PLAN: Plan Patient is a 39-year-old female who presented [facility] ED on 05/09/2024 with worsening right index finger pain. 1. Right index finger flexor tenosynovitis ? Plastic surgery following. S/p I&D of right index finger with A1 and A5 jason release on 05/09. Patient tolerated procedure well, no intraoperative complications. Had surgical findings of thickened and inflamed synovium with clear yellow drainage around the tendon within the sheath. Per plastics, continue IV vancomycin and ceftriaxone for now, awaiting cultures. Continue elevation of right upper extremity and soap soaks 3 times daily with dry dressing. Pain control with scheduled Tylenol and oxycodone as needed. Continue home gabapentin. Will likely be okay for discharge home tomorrow or Sunday once final cultures have resulted. 2. Type 2 diabetes mellitus ? Home regimen of empagliflozin 10 mg daily. Blood glucose 314 on admission. A1c 6.2%. Started on sliding scale insulin with meals with improved blood sugar, continue while inpatient. Chronic medical conditions: ? Obesity: BMI 33 on admit. Encouraged lifestyle modifications. Complicates hospital course, care and prognosis. ? History of asthma: Stable on room air, not in acute exacerbation. Continue home albuterol as needed. ? Depression/insomnia: Stable. Continue home venlafaxine, mirtazapine at night and trazodone at night. ? Hypertension: Holding home lisinopril for now, will restart as needed. ? Hyperlipidemia: Continue home statin. DVT prophylaxis: Low risk, ambulate CODE STATUS: Full code, verified Expected disposition: Home, 1 to 2 days Total clinical time spent by myself addressing the patient's medical issues, reviewing all the data, and collaborating with patient's care team: 35 minutes. Charges/Coding Visit Charges Inpatient E&M: 86263 Subs Hosp L2
[2024-05-10 11:52] LABS: Bedside Glucose 241 mg/dL (74-106)
--- NOTE | 2024-05-10 12:15 | CASEMGMT ---
KALEN MALIN Face to Face with patient for initial transition planning/care coordination assessment. KALEN MALIN introduced self and role at [facility]. Patient lying in bed, alert and oriented. Patient willing to participate in assessment and is able to answer all questions appropriately. Care providers, pharmacy, and demographics verified. Lace: 6 Strata: 2 PCP: Margaret Cespedes CNP [place] Specialists: [facility] Preferred Pharmacy: [facility] Insurance: [employer], MCR Prescription Benefit: yes Living Will/HPOA: none LNOK: Living Arrangements: Patient lives with in a 2 story home. Patient is independent and able to ambulate stairs. Transportation: self, DME/HHC: Patient states she has glucometer ready at pharmacy to cook pickled meat. Patient denies further DME needs. No previous HHC or SNF. is able to assist with dressing changes, RN CM encouraged patient to have come in to have nurisng teach wound care. Patient wishes to discharge home, denies need for home health at this time. Patient states he has no further needs or concerns at this time. CM to follow for discharge planning needs that may arise. Disposition Plan: Patient to discharge home with family support and follow-up plans in place. Kelly SY, RN, CM
[2024-05-10 15:24] VITALS: RESP 18
[2024-05-10 17:06] LABS: Bedside Glucose 257 mg/dL (74-106)
[2024-05-10 19:42] VITALS: BP 110/73; PULSE 90; RESP 15; TEMP 36.9; O2SAT 98
[2024-05-10 22:14] LABS: Vancomycin, Trough Level 11.6 ug/mL (5.0-15.0)
[2024-05-10] MEDS: Mirtazapine 15 MG Tablet PO (22:29)
[2024-05-10] MEDS: MELATONIN 3 MG TABLET PO (22:43)
[2024-05-10] MEDS: Vancomycin HCl 1,500 MG in 0.9% Normal Saline (500mL Bag) 500 ML 250 MG IV (22:44)
[2024-05-10 23:00] VITALS: RESP 16
--- NOTE | 2024-05-10 23:02 | PCM.RX.CS ---
Consult Antibiotic Management Pharmacy has been consulted to manage selected antibiotic: Vancomycin Type of Intervention Type of Consult: Follow-up Labs Labs: Sodium 138 mmol/L (136-145) 05/10/24 07:00 Potassium 4.2 mmol/L (3.5-5.1) 05/10/24 07:00 Chloride 105 mmol/L (98-107) 05/10/24 07:00 Carbon Dioxide 26.0 mmol/L (21.0-32.0) 05/10/24 07:00 Anion Gap 7 (5-15) 05/10/24 07:00 BUN 14 mg/dL (7-18) 05/10/24 07:00 Creatinine 0.76 mg/dL (0.55-1.02) 05/10/24 07:00 Est GFR (MDRD) Af Amer 109 mL/min (>60) 05/10/24 07:00 Est GFR (MDRD) Non-Af 90 mL/min (>60) 05/10/24 07:00 BUN/Creatinine Ratio 18.5 RATIO (10-20) 05/10/24 07:00 Glucose 188 mg/dL (74-106) H 05/10/24 07:00 Vancomycin Trough 11.6 ug/mL (5.0-15.0) 05/10/24 21:43 Microbiology Microbiology: Microbiology 05/09/24 17:45 Wound - Right Hand Gram Stain - Final 05/09/24 17:45 Wound - Right Hand Wound Culture - Preliminary No growth-Final to follow Dosing Weight Weight used for dosin kg Estimated Creatinine Clearance Estimated Creatinine Clearance: 103 Goal Trough Goal Trough: 15-20 mcg/mL Pharmacy Plan for Drug Dosing Pharmacy Plan for Drug Dosing: Vancomycin trough level of 11.6, drawn 8hrs post-dose, was below the target range of 15-20. Will increase dose to 1500mg q8h, and will draw another trough prior to fourth dose of the new regimen. Pharmacy Service will continue to monitor and adjust dosing as required. Follow-Up Labs Follow-Up Labs: Trough: Vancomycin Date/Time Labs Ordered Labs to be done on [date and time ordered]: 05/11/24 @2200
[2024-05-10 23:31] LABS: Bedside Glucose 285 mg/dL (74-106)
[2024-05-11] MEDS: Ketorolac 30 MG/ML Syringe IV (01:12)
[2024-05-11] MEDS: Gabapentin 100 MG Capsule PO ×3 (05:23→21:51)
[2024-05-11] MEDS: oxyCODONE 5 MG Tablet PO ×3 (05:23→14:22)
[2024-05-11] MEDS: Acetaminophen 500 MG Tablet 1000 MG PO ×3 (05:23→21:52)
[2024-05-11] MEDS: Vancomycin HCl 1,500 MG in 0.9% Normal Saline (500mL Bag) 500 ML 250 MG IV ×3 (06:15→23:27)
[2024-05-11] MEDS: Insulin Lispro 100 UNIT/ML INSULN.PEN SC ×4 (06:49→21:57)
[2024-05-11 07:09] LABS: Bedside Glucose 155 mg/dL (74-106)
--- NOTE | 2024-05-11 08:09 | PN_ITS ---
Progress Note Afebrile with stable VS this morning. Sugar much better (188). Pain controlled (much improved since admission). Feels like she can move/use hand better now. NGTD yet on cultures. Talked to Ms. Helm more today about her line of work. She was feeling better and better able to discuss things today. Shw was working in [employer] until last week (at [facility] in [place]), and was not wearing any protective gloves. She's concerned that she may have injured (small scrape or puncture from a cooking utensil) while working, and thinks that this may have contributed to her problem. Physical Exam Narrative Gen: Non-toxic Extremity: RUE: Inspection: Dressings removed. No purulence from incisions. Motor: Able to bend and extend right index finger today at the DIP, PIP, and MP joints (continued improvement). Placed in a Dial soap soak with nursing. Sensation: No numbness or tingling on the radial or ulnar borders of the right index finger except slight numbness distal to the DIP joint today (7/10 sensation when compared to the contralateral index on the radial and ulnar borders. Vascular: Digit warm and well perfused. Assessment & Plan Assessment/Plan (1) Flexor tenosynovitis of finger: PLAN: Plan Jericho Helm Olena is a 39 YO female who is POD 1 from incision and drainage of the right index finger for flexor tenosynovitis. TID soap soaks today with dry dressing. Continue elevation of RUE. F/u culture data I will continue to follow. OK for diet Visit Charges Inpatient E&M: 50852 Subs Hosp L2
[2024-05-11 09:00] VITALS: BP 113/59; PULSE 85; RESP 16; TEMP 37.1; O2SAT 99
[2024-05-11 10:00] VITALS: RESP 18
[2024-05-11] MEDS: Ceftriaxone 2 GM in 0.9% Normal Saline (50mL MB+) 50 ML IV (10:26)
[2024-05-11] MEDS: Senna/Docusate Sodium 1 Tablet PO ×2 (10:29→21:54)
[2024-05-11] MEDS: Atorvastatin Calcium 20 MG Tablet PO (10:29)
[2024-05-11] MEDS: Venlafaxine XR 37.5 MG Capsule PO (10:29)
[2024-05-11] MEDS: Venlafaxine XR 150 MG Capsule PO (10:29)
--- NOTE | 2024-05-11 11:45 | PN.HOSP_ITS ---
Reason for Visit Reason for Visit: Diagnoses Type 2 diabetes mellitus without complications (05/09/24) Major depressive disorder, single episode, unspecified (05/09/24) Essential (primary) hypertension (05/09/24) Synovitis and tenosynovitis, unspecified (05/09/24) Subjective Subjective No acute events overnight. Saw patient at bedside this morning. Plastics had already been in to see the patient earlier this morning and the wrap had been removed from her right hand. Right index finger incision site appeared to be healing well. Patient reported to mild localized pain, improved from previous days. She denied any other new concerns today. Objective Data Objective Data Vital Signs: Vital Signs Temp Pulse Resp BP Pulse Ox O2 Del Method 98.5 F 90 16 110/73 98 Room Air 05/10/24 19:42 05/10/24 19:42 05/10/24 23:00 05/10/24 19:42 05/10/24 19:42 05/10/24 23:00 Oxygen Delivery Method Room Air Weight: 86.183 kg Body Mass Index (BMI) 33.6 Intake & Output: Intake and Output for Last 24 Hours 05/09/24 05/10/24 05/11/24 23:59 23:59 23:59 Intake Total 1732.50 / 1732.50 2130.25 / 2130.25 530 / 530 Balance 1732.50 / 1732.50 2130.25 / 2130.25 530 / 530 Lab / Micro Data 05/10/24 07:00 05/10/24 07:00 Labs: Laboratory Results - last 24 hr 05/10/24 11:32: POC Glucose 241 H 05/10/24 16:46: POC Glucose 257 H 05/10/24 21:43: Vancomycin Trough 11.6 05/10/24 22:33: POC Glucose 285 H 05/11/24 06:48: POC Glucose 155 H Micro: Microbiology 05/09/24 17:45 Wound - Right Hand Gram Stain - Final 05/09/24 17:45 Wound - Right Hand Wound Culture - Preliminary No growth-Final to follow Physical Exam Const alert, oriented x3, no apparent distress, healthy appearing and well nourished Constitutional Narrative: Pleasant middle-age female, obese, sitting up comfortably in bed, conversing normally, no acute distress. General Appearance: cooperative and comfortable HEENT normocephalic, head/scalp atraumatic, hearing grossly normal bilaterally, nasal mucous membranes and turbinates normal and moist oral mucous membranes Eyes PERRL, EOMs intact bilaterally and conjunctivae normal Neck full ROM Chest inspection of chest normal Resp normal respiratory effort, normal air movement, no use of accessory muscles and clear to auscultation bilaterally Cardio regular rate, regular rhythm, no murmurs and peripheral pulses 2+ throughout GI normal to inspection, nondistended, normoactive bowel sounds, soft to palpation, non-tender and non-distended Back/Spine normal ROM Extremity Extremity Narrative: Wrap removed from right hand; incision site on right hand/index finger appears to be healing well, site clean and dry. Neuro no focal motor deficits and no sensory deficits noted Speech: speech normal Psych mental status grossly normal Assessment & Plan Assessment/Plan (1) Flexor tenosynovitis of finger: (2) Type 2 diabetes mellitus: PLAN: Plan Patient is a 39-year-old female who presented [facility] ED on 05/09/2024 with worsening right index finger pain. 1. Right index finger flexor tenosynovitis ? Plastic surgery following. S/p I&D of right index finger with A1 and A5 jason release on 05/09. Patient tolerated procedure well, no intraoperative complications. Had surgical findings of thickened and inflamed synovium with clear yellow drainage around the tendon within the sheath. Per plastics, continue IV vancomycin and ceftriaxone for now, awaiting cultures. Continue elevation of right upper extremity and soap soaks 3 times daily with dry dressing. Pain control with scheduled Tylenol and oxycodone as needed. Continue home gabapentin. Planning for discharge home tomorrow once final cultures have resulted. 2. Type 2 diabetes mellitus ? Home regimen of empagliflozin 10 mg daily. Blood glucose 314 on admission. A1c 6.2%. Started on sliding scale insulin with meals with improved blood sugar, continue while inpatient. Chronic medical conditions: ? Obesity: BMI 33 on admit. Encouraged lifestyle modifications. Complicates hospital course, care and prognosis. ? History of asthma: Stable on room air, not in acute exacerbation. Continue home albuterol as needed. ? Depression/insomnia: Stable. Continue home venlafaxine, mirtazapine at night and trazodone at night. ? Hypertension: Holding home lisinopril for now, will restart as needed. ? Hyperlipidemia: Continue home statin. DVT prophylaxis: Low risk, ambulate CODE STATUS: Full code, verified Expected disposition: Home, 1 to 2 days Total clinical time spent by myself addressing the patient's medical issues, reviewing all the data, and collaborating with patient's care team: 35 minutes. Charges/Coding Visit Charges Inpatient E&M: 82012 Subs Hosp L2
[2024-05-11 12:08] LABS: Bedside Glucose 155 mg/dL (74-106)
[2024-05-11 14:53] VITALS: BP 122/81; PULSE 78; RESP 18; TEMP 37.2; O2SAT 99
[2024-05-11 16:51] LABS: Bedside Glucose 258 mg/dL (74-106)
[2024-05-11 17:00] VITALS: RESP 18
[2024-05-11 21:50] VITALS: BP 124/92; PULSE 81; RESP 16; TEMP 36.8; O2SAT 98
[2024-05-11] MEDS: Mirtazapine 15 MG Tablet PO (21:51)
[2024-05-11] MEDS: MELATONIN 3 MG TABLET PO (21:54)
[2024-05-11 22:23] LABS: Bedside Glucose 246 mg/dL (74-106)
[2024-05-11 23:05] LABS: Vancomycin, Trough Level 19.4 ug/mL (5.0-15.0)
--- NOTE | 2024-05-11 23:50 | PCM.RX.CS ---
Consult Antibiotic Management Pharmacy has been consulted to manage selected antibiotic: Vancomycin Type of Intervention Type of Consult: Follow-up Labs Labs: Sodium 138 mmol/L (136-145) 05/10/24 07:00 Potassium 4.2 mmol/L (3.5-5.1) 05/10/24 07:00 Chloride 105 mmol/L (98-107) 05/10/24 07:00 Carbon Dioxide 26.0 mmol/L (21.0-32.0) 05/10/24 07:00 Anion Gap 7 (5-15) 05/10/24 07:00 BUN 14 mg/dL (7-18) 05/10/24 07:00 Creatinine 0.76 mg/dL (0.55-1.02) 05/10/24 07:00 Est GFR (MDRD) Af Amer 109 mL/min (>60) 05/10/24 07:00 Est GFR (MDRD) Non-Af 90 mL/min (>60) 05/10/24 07:00 BUN/Creatinine Ratio 18.5 RATIO (10-20) 05/10/24 07:00 Glucose 188 mg/dL (74-106) H 05/10/24 07:00 Vancomycin Trough 19.4 ug/mL (5.0-15.0) H 05/11/24 22:39 Microbiology Microbiology: Microbiology 05/09/24 17:45 Wound - Right Hand Gram Stain - Final 05/09/24 17:45 Wound - Right Hand Wound Culture - Preliminary No growth-Final to follow Dosing Weight Weight used for dosin kg Estimated Creatinine Clearance Estimated Creatinine Clearance: 103 Goal Trough Goal Trough: 15-20 mcg/mL Pharmacy Plan for Drug Dosing Pharmacy Plan for Drug Dosing: Vancomycin trough level of 19.4, drawn 8hrs post-dose, was within the target range of 15-20. Will continue dosing at 1500mg q8h, and draw another trough in four doses. Pharmacy Service will continue to monitor and adjust dosing as required. Follow-Up Labs Follow-Up Labs: Trough: Vancomycin Date/Time Labs Ordered Labs to be done on [date and time ordered]: 05/12/24 @2200
[2024-05-12] MEDS: Acetaminophen 500 MG Tablet 1000 MG PO (04:23)
[2024-05-12 04:24] VITALS: BP 134/93; PULSE 62; RESP 16; TEMP 36.4; O2SAT 99
[2024-05-12] MEDS: Vancomycin HCl 1,500 MG in 0.9% Normal Saline (500mL Bag) 500 ML 250 MG IV (06:35)
[2024-05-12] MEDS: Gabapentin 100 MG Capsule PO (06:35)
[2024-05-12] MEDS: 0.9% Saline Lock 10 ML Syringe IV (06:35)
[2024-05-12] MEDS: Insulin Lispro 100 UNIT/ML INSULN.PEN SC (06:39)
[2024-05-12 07:19] LABS: Bedside Glucose 171 mg/dL (74-106)
--- NOTE | 2024-05-12 07:26 | PCM.PN.SRG ---
Subjective Subjective Doing well this morning. No pain in the right index finger (RIF). No numbness today. Feels better overall and feels like hand is returning to normal. NGTD on cultures Objective Data Objective Data Vital Signs: Vital Signs Temp Pulse Resp BP Pulse Ox O2 Del Method 97.6 F L 62 16 134/93 H 99 Room Air 05/12/24 04:24 05/12/24 04:24 05/12/24 04:24 05/12/24 04:24 05/12/24 04:24 05/12/24 04:24 Oxygen Delivery Method Room Air Weight: 190 lb Body Mass Index (BMI) 33.6 Intake & Output: Intake and Output for Last 24 Hours 05/10/24 05/11/24 05/12/24 23:59 23:59 23:59 Intake Total 2130.25 / 2130.25 3470 / 3670 730 / 730 Balance 2130.25 / 2130.25 3470 / 3670 730 / 730 Lab / Micro Data 05/10/24 07:00 05/10/24 07:00 Labs: Laboratory Results - last 24 hr 05/11/24 11:50: POC Glucose 155 H 05/11/24 16:33: POC Glucose 258 H 05/11/24 21:56: POC Glucose 246 H 05/11/24 22:39: Vancomycin Trough 19.4 H 05/12/24 06:38: POC Glucose 171 H Micro: Microbiology 05/09/24 17:45 Wound - Right Hand Gram Stain - Final 05/09/24 17:45 Wound - Right Hand Wound Culture - Preliminary No growth-Final to follow Physical Exam Narrative Gen: Non-toxic Extremity: RUE: Inspection: Dressings removed. No purulence from incisions. Motor: Able to bend and extend right index finger today at the DIP, PIP, and MP joints (continued improvement). Able to make a nearly complete fist (RIF 1 cm from palm). Sensation: No numbness or tingling on the radial or ulnar borders of the right index finger today. Vascular: Digit warm and well perfused. Assessment & Plan Assessment/Plan (1) Flexor tenosynovitis of finger: PLAN: Continue to follow up cultures. Agree with plan from medicine for PO antibiotics today. Patient can f/u with me in clinic on , 15 May 2024, or sooner if her condition worsens (discussed) Plan for three times per day soap oaks at home with dry dressing as wound care. Patient should not do any lifting with right hand as the incisions heal, but should continue to move her hand (to not get stiff) I discussed these instructions with the patient and she was in agreement, all questions answered. Charges/Coding Visit Charges Inpatient E&M: 07515 Subs Hosp L1 Vital Signs Temperature Temperature: 97.6 F Pulse Pulse Rate: 62 Respirations Respiratory Rate: 16 Pulse Oximetry: 99 Oxygen Delivery Method: Room Air Blood Pressure Blood Pressure: 134/93 Blood Pressure Mean: 106
[2024-05-12 07:31] VITALS: BP 134/93; PULSE 62; RESP 16; TEMP 36.4; O2SAT 99
[2024-05-12] MEDS: Venlafaxine XR 150 MG Capsule PO (08:05)
[2024-05-12] MEDS: Venlafaxine XR 37.5 MG Capsule PO (08:05)
[2024-05-12] MEDS: Atorvastatin Calcium 20 MG Tablet PO (08:05)
[2024-05-12] MEDS: oxyCODONE 5 MG Tablet PO (08:07)
--- NOTE | 2024-05-12 08:25 | NURSING ---
hand soaking in dial soap warm water as instructed per dr dodson
[2024-05-12] MEDS: Ceftriaxone 2 GM in 0.9% Normal Saline (50mL MB+) 50 ML IV (09:08)
--- NOTE | 2024-05-12 11:57 | PCM.DC.SUM ---
Providers Date of Admission: 05/09/24 Date of Discharge: 05/12/24 Primary Care Physician: [facility] Phys Consultations 05/09/24 13:51 Consult: Plastic Surgery Routine Consulting Provider: Zachary Platt Reason for Consult: flexor tenosynovitis EMERGENT Consult: Yes MD Notified: Yes Date Notified: 05/09/24 Time Notified: 13:51 Method of Notification: Verbal 05/09/24 17:43 Consult: Plastic Surgery Routine Consulting Provider: Zachary Platt Reason for Consult: Right index finger tenosynovitis EMERGENT Consult: No Notified: Yes Date Notified: 05/09/24 Time Notified: 15:28 Method of Notification: ED Physician Initiated Reason For Visit: FLEXOR TENOSYNOVITIS Diagnosis Discharge Diagnosis (1) Flexor tenosynovitis of finger: Status: Acute Code(s): M65.9 - Synovitis and tenosynovitis, unspecified Medications at Discharge Home Medications albuterol sulfate 90 mcg/actuation aerosol inhaler 2 puff inhalation Q4H PRN Asthma 07/29/21 handicap placard #1 ea 12/18/22 miscellaneous medical supply (Blood Pressure Cuff) #1 ea 12/18/22 atorvastatin 20 mg tablet 20 mg PO DAILY 05/09/24 empagliflozin 10 mg tablet (Jardiance) 10 mg PO DAILY 05/09/24 gabapentin 100 mg capsule 100 mg PO TID 05/09/24 mirtazapine 15 mg tablet 15 mg PO QHS 05/09/24 trazodone 100 mg tablet 150 mg PO QHS PRN insomnia 05/09/24 venlafaxine 150 mg capsule,extended release 24 hr 150 mg PO DAILY 05/09/24 venlafaxine 37.5 mg capsule,extended release 24 hr 37.5 mg PO DAILY 05/09/24 cephalexin 500 mg capsule 500 mg PO TID 3 days #9 caps 05/12/24 lisinopril 10 mg tablet 10 mg PO DAILY 30 days #30 tabs 05/12/24 Hospital Course Operations - (Incision and drainage of right index finger with A1 and A5 jasno release) Procedures - (Finger x-ray) Summary of Care Provided Minutes Spent on Discharge: 35 Hospital Course: Patient is a 39-year-old female who presented [facility] ED on 05/09/2024 with worsening right index finger pain. Hospital course as noted below. Patient discharged home with no therapy needs a stable condition on 05/12. 1. Right index finger flexor tenosynovitis ? Plastic surgery followed. S/p I&D of right index finger with A1 and A5 jason release on 05/09. Patient tolerated procedure well, no intraoperative complications. Had surgical findings of thickened and inflamed synovium with clear yellow drainage around the tendon within the sheath. Cultures with no growth after 48 hours. Treated with IV vancomycin and ceftriaxone while inpatient, de-escalated to Keflex on discharge with plan for 7-day course of antibiotics total. Per plastics, will continue 3 times per day soap soaks at home with dry dressing as wound care. Has follow-up appointment with plastics on 05/15. Pain control with Tylenol as needed on discharge. Continue home gabapentin. 2. Type 2 diabetes mellitus ? Home regimen of empagliflozin 10 mg daily. Blood glucose 314 on admission. A1c 6.2%. Treated with sliding scale insulin while inpatient with good sugar control, okay to resume empagliflozin on discharge. 3. Hypertension ? Held home lisinopril during hospitalization and blood pressures remained normotensive to only borderline hypertensive. Restarted lisinopril at reduced dose of 10 mg daily on discharge. Recommended patient follow-up with PCP for further dose adjustments as needed. Chronic medical conditions: ? Obesity: BMI 33 on admit. Encouraged lifestyle modifications. Complicated hospital course, care and prognosis. ? History of asthma: Stable on room air, not in acute exacerbation. Continue home albuterol as needed. ? Depression/insomnia: Stable. Continue home venlafaxine, mirtazapine at night and trazodone at night. ? Hyperlipidemia: Continue home statin. Total clinical time spent by myself addressing the patient's medical issues, reviewing all the data, and collaborating with patient's care team: 35 minutes. Physical Exam Const alert, oriented x3, no apparent distress, healthy appearing and well nourished Constitutional Narrative: Pleasant middle-age female, obese, sitting up comfortably in bed, conversing normally, no acute distress. General Appearance: cooperative and comfortable HEENT normocephalic, head/scalp atraumatic, hearing grossly normal bilaterally, nasal mucous membranes and turbinates normal and moist oral mucous membranes Eyes PERRL, EOMs intact bilaterally and conjunctivae normal Neck full ROM Chest inspection of chest normal Resp normal respiratory effort, normal air movement, no use of accessory muscles and clear to auscultation bilaterally Cardio regular rate, regular rhythm, no murmurs and peripheral pulses 2+ throughout GI normal to inspection, nondistended, normoactive bowel sounds, soft to palpation, non-tender and non-distended Back/Spine normal ROM Extremity Extremity Narrative: Wrap removed from right hand; incision site on right hand/index finger appears to be healing well, site clean and dry. Neuro no focal motor deficits and no sensory deficits noted Speech: speech normal Psych mental status grossly normal Weight / BMI Weight Weight: 86.183 kg Body Mass Index (BMI) 33.6 ABG / Lab / Microbiology Data 05/10/24 07:00 05/10/24 07:00 Laboratory: Laboratory Results - last 24 hr 05/11/24 11:50: POC Glucose 155 H 05/11/24 16:33: POC Glucose 258 H 05/11/24 21:56: POC Glucose 246 H 05/11/24 22:39: Vancomycin Trough 19.4 H 05/12/24 06:38: POC Glucose 171 H Microbiology: Microbiology 05/09/24 17:45 Wound - Right Hand Gram Stain - Final 05/09/24 17:45 Wound - Right Hand Wound Culture - Preliminary No growth-Final to follow Meaningful Use Info Meaningful Use Meaningful Use Diagnoses (Choose all that apply): None applicable Ischemic Stroke Statin Dosing Therapy Reference: STATIN DOSE THERAPY REFERENCE: * Patients > 75 years receive moderate or high dose statin therapy. * Patients 75 years or YOUNGER should receive HIGH intensity statin dose unless contraindicated. You will be required to document reason for non-treatment if statin daily dose does not meet guidelines. HIGH DOSE STATIN THERAPY DAILY Atorvastatin > than or = to 40 mg Rosuvastatin > than or = to 20 mg Amlodipine + Atorvastatin > than or = to 2.5/40 mg Ezetimibe + Simvastatin 10/80 mg Simvastatin 80mg Discharge Plan Admission Admit Date/Time: 05/09/24 15:24 Primary Reason for Your Visit: right index finger pain Attending Provider: Rodríguez Gordillo Primary Care Provider: Care Physician,No Primary Consulting Providers: Zachary Platt; Trupti Sheridan Instructions Additional Instructions / Restrictions: Plan for three times per day warm soap soaks for 15 minutes at home with dry dressing as wound care. You should not do any lifting with right hand as the incisions heal, but you should continue to move your hand (to not get stiff). I will see you in clinic on 15 May 2024 *() or sooner if needed. Our staff will call you with your appointment. Please take Keflex 3 times daily for 3 more days to complete 7 day course of antibiotics total. Your blood pressure ran low while here; please take reduced dose of lisinopril going forward as noted below. Discharge Orders/Prescriptions Prescriptions: New lisinopril 10 mg tablet 10 mg PO DAILY 30 Days Qty: 30 2RF cephalexin 500 mg capsule 500 mg PO TID 3 Days Qty: 9 0RF Continued (DME) Blood Pressure Cuff Misc See Rx Instructions .Route Qty: 1 0RF Rx Instructions: As directed (DME) handicap placard See Rx Instructions .Route .MEDSUPPLY Qty: 1 0RF Rx Instructions: Debility Expiration: 05/2023 albuterol sulfate 90 mcg/actuation HFA aerosol inhaler 2 puff inhalation Q4H PRN (Reason: Asthma) venlafaxine 37.5 mg capsule,extended release 24hr 37.5 mg PO DAILY atorvastatin 20 mg tablet 20 mg PO DAILY venlafaxine 150 mg capsule,extended release 24hr 150 mg PO DAILY mirtazapine 15 mg tablet 15 mg PO QHS gabapentin 100 mg capsule 100 mg PO TID Jardiance 10 mg tablet 10 mg PO DAILY trazodone 100 mg tablet 150 mg PO QHS PRN Discontinued lisinopril 40 mg tablet 40 mg PO DAILY rosuvastatin 5 mg tablet 5 mg PO DAILY Referrals / Follow Up: Care Physician,No Primary [Primary Care Provider] - Disposition Disposition (needs filled in before D/C Order can be placed): Home, Self Care Charges/Coding Visit Charges Inpatient E&M: 50354 Disch Hosp >30min
[2024-05-12 11:58] LABS: Bedside Glucose 153 mg/dL (74-106)
[2024-05-12 12:03] VITALS: BP 124/86; PULSE 78; RESP 18; TEMP 36.7; O2SAT 96
--- NOTE | 2024-05-12 15:04 | PHA.DC_ITS ---
Pharmacy [place] Med Reconciliation Pharmacy Service has performed discharge medication reconciliation for this patient. Medication education papers prepared, patient discharged before I was able to auto club travel counselor. Medications reviewed. The patient's discharge medication list was reviewed for discrepancies and discrepancies were resolved. Medications at Discharge Home Medications albuterol sulfate 90 mcg/actuation aerosol inhaler 2 puff inhalation Q4H PRN Asthma 07/29/21 handicap placard #1 ea 12/18/22 miscellaneous medical supply (Blood Pressure Cuff) #1 ea 12/18/22 atorvastatin 20 mg tablet 20 mg PO DAILY 05/09/24 empagliflozin 10 mg tablet (Jardiance) 10 mg PO DAILY 05/09/24 gabapentin 100 mg capsule 100 mg PO TID 05/09/24 mirtazapine 15 mg tablet 15 mg PO QHS 05/09/24 trazodone 100 mg tablet 150 mg PO QHS PRN insomnia 05/09/24 venlafaxine 150 mg capsule,extended release 24 hr 150 mg PO DAILY 05/09/24 venlafaxine 37.5 mg capsule,extended release 24 hr 37.5 mg PO DAILY 05/09/24 cephalexin 500 mg capsule 500 mg PO TID 3 days #9 caps 05/12/24 lisinopril 10 mg tablet 10 mg PO DAILY 30 days #30 tabs 05/12/24
== END 2024-05-12 12:38 | disposition home or self-care (01) | DRG 514 ==
LOC: ED 15:01 → MS3 15:04
PROVIDERS: Surgery Plastic and Reconstructive Surgery; Admitting Provider Internal Medicine; Emergency Provider Emergency Medicine; Visit Provider Hospitalist
PROC: 0L970ZZ Drainage of Right Hand Tendon, Open Approach (ICD-10-PCS; principal; 2024-05-09 15:45)
DX: M65.841 Other synovitis and tenosynovitis, right hand (principal); E11.9 Type 2 diabetes mellitus without complications; G40.909 Epilepsy, unspecified, not intractable, without status epilepticus; J45.909 Unspecified asthma, uncomplicated; I10 Essential (primary) hypertension; F32.9 Major depressive disorder, single episode, unspecified; E66.9 Obesity, unspecified; E78.5 Hyperlipidemia, unspecified; Z79.84 Long term (current) use of oral hypoglycemic drugs; Z86.16 Personal history of COVID-19; Z68.33 Body mass index [BMI] 33.0-33.9, adult; Z87.891 Personal history of nicotine dependence; G47.00 Insomnia, unspecified; Z90.49 Acquired absence of other specified parts of digestive tract; Z98.51 Tubal ligation status
CPT/HCPCS: 36415; 73140; 80048; 80053; 80202; 82962; 83036; 83605; 85025; 85652; 86140; 87070; 87075; 87205; 90471; 90715; 99284; J7030; J7040; J7050; J7120; A4216; J0696; J2405

== ENCOUNTER 2024-07-15 17:58 | Emergency (ER) | payer OTHER, MEDICARE, SELFPAY ==
[2024-07-15 17:58] VITALS: BP 164/104; PULSE 92; RESP 16; TEMP 36.9; O2SAT 100; BMI 34.5
--- NOTE | 2024-07-15 18:21 | EX.ED.UPPERE ---
HPI History of Present Illness Chief Complaint: Upper Extremity Injury Detail of Chief Complaint: Right shoulder pain Informant: patient Narrative Narrative: Patient presents to the emergency department with right shoulder pain that started 6 weeks ago. Patient states that about 9 weeks ago she had surgery for flexor tenosynovitis on her right index finger by Dr. Platt. Patient denies any injury to her shoulder. She went to an emergency department a week ago and had x-rays of her shoulder which were unremarkable. She was referred to orthopedics and she saw the orthopedic surgeon. Initially she was told she might have a rotator cuff tear but she continues to have pain. She was advised to come to the emergency department to be evaluated for infection that may have spread from the flexor tenosynovitis surgery up to her shoulder. Patient has not had any fevers. She had occasional chills. She complains of pain in her shoulder with range of motion. [facility] Medical History History of IBS History of anxiety History of depression History of asthma History of seasonal allergies Pott's disease Hypotension COVID-19 virus detected (02/12/21) History of syncope (08/2013) Asthma Dyslexia Migraine History of gestational diabetes Dysthymic disorder Essential hypertension Urinary tract infection Cervical paraspinal muscle spasm Depression Seizures Seizure disorder Type 2 diabetes mellitus Home Medications ?Medication ?Instructions ?Recorded ?Last Taken ?Type handicap placard #1 ea 12/18/22 Unknown Rx miscellaneous medical supply #1 ea 12/18/22 Unknown Rx (Blood Pressure Cuff) atorvastatin 20 mg tablet 20 mg PO DAILY 05/09/24 05/09/24 History empagliflozin 10 mg tablet 10 mg PO DAILY 05/09/24 05/09/24 History (Jardiance) mirtazapine 15 mg tablet 15 mg PO QHS 05/09/24 05/08/24 History trazodone 100 mg tablet 150 mg PO QHS PRN insomnia 05/09/24 05/08/24 History venlafaxine 150 mg 150 mg PO DAILY 05/09/24 05/09/24 History capsule,extended release 24 hr venlafaxine 37.5 mg 37.5 mg PO DAILY 05/09/24 05/09/24 History capsule,extended release 24 hr lisinopril 10 mg tablet 10 mg PO DAILY 30 days #30 tabs 05/12/24 Unknown Rx dulaglutide 1.5 mg/0.5 mL 1.5 mg subcut QWEEK 07/15/24 Unknown History subcutaneous pen injector (Trulicity) hydrocodone-acetaminophen 5-325mg 1 tab PO Q4H PRN PRN Pain 2 days 07/15/24 Unknown Rx 5mg-325mg #15 TABLETS ketorolac 10 mg tablet 10 mg PO TID 07/15/24 Unknown History lisinopril 40 mg tablet 40 mg PO DAILY 07/15/24 Unknown History naproxen 500 mg tablet 500 mg PO BID 07/15/24 Unknown History Allergy/AdvReac Type Severity Reaction Status Date / Time amoxicillin (From Augmentin) Allergy Unknown unknown Verified 07/15/24 17:59 clavulanic acid (From Allergy Unknown unknown Verified 07/15/24 17:59 Augmentin) codeine phosphate (From Allergy Swelling Verified 07/15/24 17:59 Tylenol-Codeine #3) shellfish derived Allergy Swelling Verified 07/15/24 17:59 venom-honey bee (bee venom Allergy Angioedema Verified 07/15/24 17:59 (honey bee)) Family History (Reviewed 06/03/24 @ 14:26 by Briana Briones ARTS AND SCIENCES DEAN, ARTS AND SCIENCES DEAN-C) Mother Asthma Hypertension Breast cancer Diabetes Father Diabetes Hypertension Hyperlipidemia Grandmother Myocardial infarction Grandfather Cancer Lung Grandfather Cancer Throat Aunt Breast cancer Surgical History (Reviewed 06/03/24 @ 14:26 by Briana Briones [employer]S AND SCIENCES DEAN, ARTS AND SCIENCES DEAN-C) History of History of tubal ligation History of umbilical hernia repair History of cholecystectomy Social History (Reviewed 06/03/24 @ 14:26 by Briana Briones [employer]S AND SCIENCES DEAN, ARTS AND SCIENCES DEAN-C) Smoking Status: Former smoker how long ago did patient quit smokin years ago alcohol intake: never substance use type: does not use additional social history: denies vaping, denies marijuana use, denies edibles, uses ibuprofen and aspirin as needed ROS ROS ED Review of Systems ROS Unobtainable: other Constitutional Constitutional ED: Reports lethargy; Denies chills, fever(s), sweats or weight loss Eyes Eyes: Denies blurry vision, change in vision or diplopia ENT ENT ED: Denies rhinorrhea or sore throat Cardiovascular Cardiovascular: Denies chest pain, orthopnea or racing heartbeat Respiratory/Chest Respiratory/Chest: Denies cough, dyspnea, dyspnea on exertion, orthopnea or sputum Gastrointestinal Gastrointestinal: Denies abdominal pain, diarrhea, nausea or vomiting Genitourinary Genitourinary ED: Denies dysuria, hematuria or urinary frequency Musculoskeletal Musculoskeletal: Reports other Details: Right shoulder pain ; Denies arthralgias, back pain, myalgias or neck pain Integumentary Denies abscess, Abrasions or rash Neurologic Neurologic: Denies headache(s) or weakness Psychiatric Psychiatric: Denies anxiety, depression or suicidal thoughts Endocrine Endocrinology: Denies polydipsia, polyphagia or polyuria Hematologic/Lymphatic Hematologic/Lymphatic: Denies easy bleeding, easy bruising or lymphadenopathy Allergic/Immunologic Allergic/Immunologic ED: Denies mouth swelling, tongue swelling or urticaria EXAM Physical Exam Const Vital Signs: 07/15/24 17:58 Temperature 98.5 F Temperature Source Oral Pulse Rate 92 Respiratory Rate 16 Blood Pressure 164/104 H Blood Pressure Mean 124 Pulse Ox 100 Oxygen Delivery Method Room Air Positive well nourished and well developed General Appearance ED: well developed and NAD HEENT Reports TM's clear and moist mucous membranes normocephalic and atraumatic; Negative for trauma or tenderness Tympanic Membrane ED: Yes TM's clear Eyes PERRL and EOMs intact bilaterally General Eye ED: Negative for pale conjunctiva or scleral icterus Neck no lymphadenopathy, supple and no JVD General: Negative for tenderness Chest Wall inspection of chest normal and palpation of chest normal Chest: Negative for tenderness Resp normal respiratory effort and clear to auscultation bilaterally Effort and Inspection: Negative for respiratory distress or pain with movement Auscultation: Negative for rhonchi, wheezes or diminished lung sounds Cardio regular rate, regular rhythm, S1 normal heart sound, S2 normal heart sound and no murmurs Peripheral Pulses: pulses 2+ throughout GI normal to inspection, nondistended, normoactive bowel sounds, soft to palpation, non-tender, non-distended and no masses Back/Spine no CVA tenderness and no thoracic nor lumbar tenderness Extremity Extremity Narrative: Right shoulder-patient has diffuse tenderness palpation over the glenohumeral joint. She has pain with range of motion in abduction and internal rotation. Neurovascular intact distally. There is no ecchymosis or bruising noted there is no erythema or warmth noted. Evaluation of the right hand reveals healing surgical wound to the volar aspect of the right index finger. No cellulitic changes noted. No significant edema. Neurovascularly intact. General Extremety ED: Negative for edema General Extremity: Negative for edema Neuro oriented x3, CN's II-XII intact bilaterally, no sensory deficits noted and gait normal Sensorium / Orientation: awake, alert, oriented to person, oriented to place and oriented to time Motor Exam: strength 5/5 throughout and strength abnormal Psych mental status grossly normal Skin no rashes or lesions noted and no wounds MDM MDM MDM Narrative Medical decision making narrative: Patient presents the emergency department with right shoulder pain for over 6 weeks. She had had prior surgery on her right index finger for flexor tenosynovitis. She has had x-rays of her shoulder recently that apparently were unremarkable. She is been seen by orthopedics who had concern about possible deep-seated infection affecting her shoulder from her flexor tenosynovitis 9 weeks ago. Clinically I do not feel there is any signs of infection. I did obtain a CBC with differential that was normal. I ordered a CRP which was slightly elevated at 6 and sed rate ordered. I do not feel any further imaging is indicated in the emergency department as she has had recent x-rays. She may need an MRI however this is not something we can order emergently from the emergency department. I did discuss case with plastic surgeon Dr. Santos who will inform Dr. Platt of the patient's visit and they will try to get her in the office this week for repeat evaluation. I will also refer patient to general orthopedics here locally. I will write her prescription for a few [place] to help manage the pain. I will order a sling for her. Lab Data Attestation: I reviewed the patient's lab results. Discharge Plan Triage Chief Complaint: Upper Extremity Injury ED Provider: Rachel Christiansen Dx/Rx/DC Orders Clinical Impression: Acute pain of right shoulder Instructions: ED Pain, Acute, Uncertain Cause, ED Shoulder Pain, Uncertain Cause Prescriptions: New hydrocodone-acetaminophen 5-325 mg tablet 1 tab PO Q4H PRN PRN (Reason: Pain) 2 Days Qty: 15 0RF No Action (DME) Blood Pressure Cuff Misc See Rx Instructions .Route Qty: 1 0RF Rx Instructions: As directed (DME) handicap placard See Rx Instructions .Route .MEDSUPPLY Qty: 1 0RF Rx Instructions: Debility Expiration: 05/2023 venlafaxine 37.5 mg capsule,extended release 24hr 37.5 mg PO DAILY atorvastatin 20 mg tablet 20 mg PO DAILY venlafaxine 150 mg capsule,extended release 24hr 150 mg PO DAILY mirtazapine 15 mg tablet 15 mg PO QHS Jardiance 10 mg tablet 10 mg PO DAILY trazodone 100 mg tablet 150 mg PO QHS PRN lisinopril 10 mg tablet 10 mg PO DAILY 30 Days Qty: 30 2RF lisinopril 40 mg tablet 40 mg PO DAILY naproxen 500 mg tablet 500 mg PO BID Trulicity 1.5 mg/0.5 mL pen injector 1.5 mg subcut QWEEK ketorolac 10 mg tablet 10 mg PO TID Primary Care Provider: Margaret Jernigan Referrals: Care Physician,No Primary [Non-Staff] - Print Language: Georgian Disposition Disposition: Home, Self Care
[2024-07-15 18:59] LABS: CRP 6.04 mg/L (0.0-3.0)
[2024-07-15 19:14] LABS: Absolute Lymphocyte Count 2.04 X10^3/uL (0.83-4.51); Absolute Neutrophil Count 4.7 X10^3/uL (2.0-7.7); Basophil# 0.05 X10^3/uL; Basophil% 0.7 % (0-1); Eosinophil# 0.01 X10^3/uL; Eosinophils% 0.1 % (0-5); Hematocrit 39.4 % (37-47); Hemoglobin 13.4 g/dL (12.0-15.0); Lymphocyte # 2.04 X10^3/ul (0.83-4.51); Lymphocyte % 27.7 % (19-41); Mean Corpuscular Hgb 30.7 pg (27.0-32.0); Mean Corpuscular Volume 90.2 fL (81-99); Mean Platelet Vol. 9.9 fl (6.2-12.0); Monocyte# 0.51 X10^3/uL; Monocyte% 6.9 % (0-10); NRBC Flagged by Analyzer 0 % (0-5); Neutrophil % 63.8 % (47-70); Platelet Count 201 K/mm3 (150-450); RBC Distribution Width CV 15.3 % (11.6-14.6); RBC Distribution Width SD 50.4 fl (35.1-43.9); Red Blood Count 4.37 M/mm3 (4.2-5.4); White Blood Count 7.4 K/mm3 (4.4-11.0)
[2024-07-15 19:58] VITALS: BP 144/93; PULSE 79; RESP 18; O2SAT 97
[2024-07-15] MEDS: HYDROcodone Bitartrate/Apap 5/325 Tablet PO (20:02)
[2024-07-15 20:09] LABS: Erythrocyte Sedimentation Rate 1 mm/hr (0-30)
[2024-07-15 20:12] VITALS: BP 144/93; PULSE 72; RESP 18; TEMP 36.9; O2SAT 99
== END 2024-07-15 20:16 | disposition home or self-care (01) ==
PROVIDERS: Emergency Provider Emergency Medicine; PCP Family Medicine; Visit Provider Emergency Medicine
DX: M25.511 Pain in right shoulder (principal); E11.9 Type 2 diabetes mellitus without complications; I10 Essential (primary) hypertension; Z87.891 Personal history of nicotine dependence; Z79.899 Other long term (current) drug therapy; Z86.16 Personal history of COVID-19
CPT/HCPCS: 85025; 85652; 86140; 99283

== ENCOUNTER → 2025-04-13 | Outpatient (CLI) | payer OTHER, SELFPAY ==
[2025-04-13 16:19] LABS: CRP 5.39 mg/L (0.0-3.0)
== END | disposition home or self-care (01) ==
LOC: LAB 14:37
PROVIDERS: PCP Family Medicine; Visit Provider Nurse Practitioner Acute Care
DX: R10.9 Unspecified abdominal pain (principal); R11.2 Nausea with vomiting, unspecified
CPT/HCPCS: 36415; 86140

== ENCOUNTER → 2025-04-16 | Outpatient (CLI) | payer OTHER, SELFPAY ==
[2025-04-19 00:07] LABS: Calprotectin, Stool 37 ug/g (0-120); Pancreatic Elastase, Fecal > 800 (>200)
== END | disposition home or self-care (01) ==
LOC: LABSPEC 10:35
PROVIDERS: PCP Nurse Practitioner Family; Referring Provider Nurse Practitioner Acute Care; Visit Provider Nurse Practitioner Acute Care
DX: K58.9 Irritable bowel syndrome, unspecified (principal); R10.9 Unspecified abdominal pain; R11.2 Nausea with vomiting, unspecified
CPT/HCPCS: 82653; 83993; 87493; 87506

== ENCOUNTER → 2025-04-30 | Outpatient (CLI) | payer OTHER, SELFPAY ==
--- NOTE | 2025-04-30 08:13 | NM_ITS ---
PROCEDURE: GASTRIC EMPTYING STUDY - 4 HR 04/30/2025 REASON FOR EXAM: N/V, DIABETIC COMPARISON: None. TECHNIQUE: The patient ingested a standard 2 slices of bread, to pets of butter, and 6 oz of water. There was no vomiting postprandially. Anterior and posterior planar images of the upper abdomen were obtained for 1 minute immediately following the meal at 1h, 2h and 4h if more than 10% of the activity persisted within the stomach. Regions of interest were drawn, and a geometric mean was used to calculate a [id number]. Medications taken in the past 24 hours that may affect gastric emptying: None RADIOPHARMACEUTICAL: Technetium 99 M sulfur colloid DOSE 1.1mCi orally, with the solid meal FINDINGS: During the time of imaging, gastroesophageal reflux was not seen. Linear fit gastric emptying half-time of 133.18 minutes. Raw data fit gastric emptying half-time of 127.35 minutes. Percent activity remaining in stomach: 1 hour 78 % (normal 37-90%) 2 hours: 48 % (normal 30-60%) 4 hours: 10 % (normal 0-10%) NM/Gastric Emptying Study - 4 HR IMPRESSION: Normal solid phase gastric emptying. Reading Location: [place] [id number]
== END | disposition home or self-care (01) ==
LOC: NM 08:12
PROVIDERS: PCP Nurse Practitioner Family; Referring Provider Nurse Practitioner Acute Care; Visit Provider Nurse Practitioner Acute Care
DX: R11.2 Nausea with vomiting, unspecified (principal); R10.9 Unspecified abdominal pain
CPT/HCPCS: 78264; A9541

== ENCOUNTER 2025-05-20 13:20 | Day surgery (SDC) | payer OTHER, SELFPAY ==
--- NOTE | 2025-05-19 14:28 | PAT.ANESEVAL ---
Pre-Assessment Diagnosis/Proposed Procedure Planned Operative Procedure(s): COLONOSCOPY/EGD Anesthesia History Anesthesia History - personal banking assistant: Anesthesia History - personal banking assistant Hx Hospitalization No 05/19/25 10:06 Any Problems With Anesthesia Yes: n/v, slow to wake up 05/19/25 10:06 Cholinesterase deficiency No 05/19/25 10:06 You/Your Family Experience Yes 05/19/25 10:06 fever (hyperthermia) with Relationship DAUGHTER 05/19/25 10:06 Recent Exposure to Contagious No 08/14/19 09:38 Disease Does patient have nerve No 05/19/25 10:06 stimulator Patient instructed to have device shut off --Does patient have Pacemaker or ICD? When Was Last Pacemaker Check QUESTION #4 FULL TEXT: You/Your Family Experience fever (hyperthermia) with Anesthesia Last Oral Intake Last Oral intake: Last Oral Intake NPO since Meds taken in AM with sips of water? 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 - personal banking assistant: PONV - personal banking assistant Female Yes 05/19/25 10:06 HX of Motion Sickness No 05/19/25 10:06 HX of N/V After Surgery No 05/19/25 10:06 Non-Smoker Yes 05/19/25 10:06 Duration of Surgery greater No 05/19/25 10:06 than 60 minutes Number of Risk Factors 2 05/19/25 10:06 PONV Score Moderate Risk 05/19/25 10:06 Height & Weight Height & Weight: Anesthesia: Height & Weight Height 5 ft 3 in 04/13/25 13:49 Respiratory Assessment Respiratory Assessment - personal banking assistant: Respiratory Tract Infection Hx - personal banking assistant Hx Respiratory Tract Infection No 05/19/25 10:06 STOP Sleep Apnea STOP Sleep Apnea - personal banking assistant: STOP Sleep Apnea - personal banking assistant Hx Hypertension Yes: NOT CONTROLLED 05/19/25 10:06 Hx Sleep Apnea No 05/19/25 10:06 CPAP No 05/19/25 10:06 BIPAP No 05/19/25 10:06 Do you snore loudly (louder No 05/19/25 10:06 than talking or can be heard Do you often feel tired/ No 05/19/25 10:06 fatigued/ sleepy during daytime? Has anyone observed you stop No 05/19/25 10:06 breathing during sleep? STOP Results Negative 05/19/25 10:06 QUESTION #5 FULL TEXT : Do you snore loudly (louder than talking or can be heard through closed doors)? Tobacco Use History Tobacco Use History - personal banking assistant: Tobacco Use History - personal banking assistant Tobacco Use Non-smoker 02/24/21 13:43 Smoking Status Former smoker 05/19/25 10:06 Hx Tobacco Use No 05/19/25 10:06 Years Smoking Packs Smoked per Day Smoking Cessation Date was Yes - quit smoking within 15 05/19/25 10:06 within the last 15 years years Hx Smoking Cessation Date 10/08/18 05/19/25 10:06 Hx Smoking Cessation No 05/19/25 10:06 Counseling Hematologic Medial History Hematologic Hx - personal banking assistant: Hematologic Medical Hx - manager commercial Hx of Blood Transfusion No 05/19/25 10:06 Hx of Transfusion in last 3 No 05/19/25 10:06 Months Date of Last Transfusion (if within last 3 months) Ever experience any problems No 05/19/25 10:06 with transfusion(s)? Specify any problems Hx of Preganancy in last 3 No 05/19/25 10:06 Months Nurse Filling Out Transfusion VCHRISTIN 05/19/25 10:06 & Questions: Date: 05/19/25 05/19/25 10:06 Time: 10:07 05/19/25 10:06 Patient unable to answer at this time (ie. confused, unrespo /Reproduction History /Reproductive History - personal banking assistant: /Reproductive Hx- personal banking assistant Hx Now No 05/19/25 10:06 Gestational Age (in weeks): EDC: Hx Hx Para Hx Section SAB No 05/19/25 10:06 PFSH Medical History (Updated 05/19/25 @ 10:05 by Yoly Domingo) Wears dentures Wears glasses Depression Anxiety Diabetes Kidney stones Fatty liver High cholesterol Excessive bleeding TIA (transient ischemic attack) Former smoker History of echocardiogram History of stress test Cardiology follow-up encounter History of irregular heartbeat History of IBS History of anxiety History of depression History of asthma History of seasonal allergies Pott's disease Hypotension COVID-19 virus detected (02/12/21) History of syncope (08/2013) Asthma Dyslexia Migraine History of gestational diabetes Dysthymic disorder Essential hypertension Urinary tract infection Cervical paraspinal muscle spasm Depression Seizures Seizure disorder Type 2 diabetes mellitus Home Medications ?Medication ?Instructions ?Recorded ?Last Taken ?Type handicap placard #1 ea 12/18/22 Unknown Rx miscellaneous medical supply #1 ea 12/18/22 Unknown Rx (Blood Pressure Cuff) mirtazapine 15 mg tablet 15 mg PO QHS 05/09/24 05/08/24 History venlafaxine 150 mg 150 mg PO DAILY 05/09/24 05/09/24 History capsule,extended release 24 hr venlafaxine 37.5 mg 37.5 mg PO DAILY 05/09/24 05/09/24 History capsule,extended release 24 hr lisinopril 10 mg tablet 10 mg PO DAILY 30 days #30 tabs 05/12/24 Unknown Rx Held on 05/19/25. Instructions: RAN OUT OF aripiprazole 15 mg tablet (Abilify) 15 mg PO QDAY 02/23/25 Unknown History Held on 05/19/25. Instructions: NEVER REFILLED atorvastatin 10 mg tablet (Lipitor) 10 mg PO QDAY 02/23/25 Unknown History Held on 05/19/25. Instructions: NOT TAKING RAN OUT gabapentin 100 mg capsule 100 mg PO Q8H PRN pain 02/23/25 Unknown History metoprolol succinate 25 mg 50 mg PO QDAY 02/23/25 Unknown History tablet,extended release 24 hr pantoprazole 20 mg tablet,delayed 20 mg PO QDAY 02/23/25 Unknown History release trazodone 100 mg tablet 100 mg PO QHS PRN insomnia 02/23/25 Unknown History dicyclomine 10 mg capsule 10 mg PO TID PRN abdominal pain 04/13/25 Unknown Rx and cramping #60 caps peg 3350-electrolytes 236 240 ml PO Q10M #4,000 mL 04/28/25 Unknown Rx gram-22.74 gram-6.74 gram-5.86 gram solution (Golytely) calcium 500 mg (as 1 tab PO BID 05/19/25 Unknown History carbonate)-vitamin D3 5 mcg (200 unit) tablet (Oyster Shell Calcium-Vitamin D3) dulaglutide 0.75 mg/0.5 mL 0.75 mg subcut QWEEK 05/19/25 05/09/25 History subcutaneous pen injector (Trulicity) Allergy/AdvReac Type Severity Reaction Status Date / Time amoxicillin (From Augmentin) Allergy Unknown unknown Verified 05/19/25 09:49 clavulanic acid (From Allergy Unknown unknown Verified 05/19/25 09:49 Augmentin) codeine phosphate (From Allergy Swelling Verified 05/19/25 09:49 Tylenol-Codeine #3) shellfish derived Allergy Swelling Verified 05/19/25 09:49 venom-honey bee (bee venom Allergy Angioedema Verified 05/19/25 09:49 (honey bee)) Family History (Updated 04/13/25 @ 13:53 by Lyndsay Tabor) Mother Asthma Hypertension Breast cancer Diabetes Father Diabetes Hypertension Hyperlipidemia Colon cancer on fathers side of the family Grandmother Myocardial infarction Grandfather Cancer Lung Grandfather Cancer Throat Aunt Breast cancer Surgical History History of History of tubal ligation History of umbilical hernia repair History of cholecystectomy Social History (Reviewed 06/03/24 @ 14:26 by Briana Briones MOLDING PROCESS TECHNICIAN, MOLDING PROCESS TECHNICIAN-C) Smoking Status: Former smoker how long ago did patient quit smokin years ago alcohol intake: never substance use type: does not use additional social history: denies vaping, denies marijuana use, denies edibles, uses ibuprofen and aspirin as needed Audit: Pertinent Findings Pertinent Findings EKG Perinent findings: November 07, 2023. Normal sinus rhythm. Stress test pertinent findings: March 12, 2025. Patient achieved 8.[address]-T wave segments suggestive of ischemia. Submaximal level of stress achieved. Echo (EF%) pertinent findings: March 12, 2025. EF of 50 to 55%. The mean and peak gradients are 6 mmHg and 4 mmHg?no aortic stenosis. Additional pertinent findings: 7-day event monitor January 2025. Predominant rhythm is sinus rhythm with average heart rate of 97 bpm. Tachycardia 36% of time. Patient triggers associated with sinus rhythm and tachycardia. SVE and VE burden is less than 1%. Recommendation Anesthesia Recommendation Anesthesia recommendation: OPTIMIZED for anesthesia
[2025-05-20] VITALS (12 sets, daily range): BP systolic 114–138; BP diastolic 79–96; PULSE 73–87; RESP 16; TEMP 36.1–36.6; O2SAT 95–100; BMI 33.3
[2025-05-20] MEDS: Lactated Ringers 1,000 ML 15 ML IV (13:50)
--- NOTE | 2025-05-20 13:51 | PCM.HP.STD ---
HPI - General General Date of Admission: 05/20/25 Date of Service: 05/20/25 Chief Complaint: Abdominal pain and diarrhea HPI Narrative REINALDO WARREN, is a 40 F who presents with the Chief Complaint: abdominal cramping and diarrhea - abdominal cramping and diarrhea - stool alternate between formed and loose, can be hard - seen in ER for cramping abdominal pain - reports when cramping is severe she has tiny stools like mice poop - can have episodes of fecal incontinence - ER at 04/11/2025 - reports a couple years ago she had abdominal swelling with OG tube placement - reports a history hemorrhoids and anal fissure, minimal BRBPR - she is uncertain if and when she had a colonoscopy - ketorlac 10mg once daily Q6H for 5 days - Pantoprazole 20mg QD - does not have a list of her meds with her, not really sure what all she is taking - reports she has been non-compliant with doctor appt. 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 Patient states painis periumbilical and midepigastric in nature. Patient denies any diarrhea but did have nausea. Patient had a bowel movement prior to arrival. Patient does have some mild nausea when I examined her. Denies any fever or chills. Nodysuria. Patient was given Toradol 15 mg IV and had significant improvement of symptoms. Patient will bedischarged on medication. 11/11/2024 - Labs: Blood glucose 272 mg/dL, hemoglobin 11.9 g/dL, white blood cells 4.9 x10^9/L, sodium 135 mmol/L, total bilirubin 1.3 mg/dL, magnesium 1.96 mg/dL. - Imaging: CT scan of abdomen and pelvis showed mild splenomegaly, mildly prominent mesenteric lymph nodes, no bowel obstruction or appendicitis, involuting right ovarian cyst, small amount of free fluid in pelvis. CT 12/06/2023 There is several fluid-filled mildly dilated loops of small bowel measuring up to 3.6 cm with transition point in the pelvis as described above. The distal small bowel loops are decompressed. Findings are concerning for developing small bowel obstruction. Mild haziness of the mesentery. No free air or free fluid. Surgical consultation is advised. - vomiting is intermittent - vomiting food on occasion The patient is a 40-year-old female presenting with abdominal pain and irregular bowel movements. She reports experiencing stomach problems for several years, with symptoms including cramping abdominal pain similar to menstrual cramps, constipation, diarrhea, and changes in stool color and consistency. The patient has visited the emergency room on 04/10/2025, where a CT scan was performed, revealing mild splenomegaly and mildly prominent mesenteric lymph nodes, but no acute bowel obstruction or appendicitis. The patient has a history of diabetes mellitus, diagnosed approximately 8-9 years ago, and has been experiencing elevated blood glucose levels, with a recent reading of 272 mg/dL. She was previously on Trulicity, which was discontinued due to concerns about its impact on bowel movements. The patient has not been on insulin and is seeking to manage her diabetes more effectively. The patient also reports a history of anxiety disorder, which she believes contributes to her symptoms, including episodes of lightheadedness and passing out, possibly related to fluctuating blood pressure. She is currently taking gabapentin for anxiety and as a nerve carlos. The patient has a history of cholecystectomy and reports that certain foods exacerbate her gastrointestinal symptoms. She also has a history of hemorrhoids and an anal fissure, which have contributed to occasional bleeding. A previous CT scan 11/2023 revealed small bowel obstruction and fatty liver. The patient has experienced weight fluctuations, with recent weight gain noted. Attestation: Documentation on this patient encounter was supported using ambient scribe technology/ voice AI technology. The patient consented to recording for the purpose of documenting the encounter. Provider reviewed content of the generated note prior to signature. [facility] Medical History Wears dentures Wears glasses Depression Anxiety Diabetes Kidney stones Fatty liver High cholesterol Excessive bleeding TIA (transient ischemic attack) Former smoker History of echocardiogram History of stress test Cardiology follow-up encounter History of irregular heartbeat History of IBS History of anxiety History of depression History of asthma History of seasonal allergies Pott's disease Hypotension COVID-19 virus detected (02/12/21) History of syncope (08/2013) Asthma Dyslexia Migraine History of gestational diabetes Dysthymic disorder Essential hypertension Urinary tract infection Cervical paraspinal muscle spasm Depression Seizures Seizure disorder Type 2 diabetes mellitus Home Medications ?Medication ?Instructions ?Recorded ?Last Taken ?Type handicap placard #1 ea 12/18/22 Unknown Rx miscellaneous medical supply #1 ea 12/18/22 Unknown Rx (Blood Pressure Cuff) mirtazapine 15 mg tablet 15 mg PO QHS 05/09/24 05/08/24 History venlafaxine 150 mg 150 mg PO DAILY 05/09/24 05/09/24 History capsule,extended release 24 hr venlafaxine 37.5 mg 37.5 mg PO DAILY 05/09/24 05/09/24 History capsule,extended release 24 hr lisinopril 10 mg tablet 10 mg PO DAILY 30 days #30 tabs 05/12/24 Unknown Rx Held on 05/19/25. Instructions: RAN OUT OF aripiprazole 15 mg tablet (Abilify) 15 mg PO QDAY 02/23/25 Unknown History Held on 05/19/25. Instructions: NEVER REFILLED atorvastatin 10 mg tablet (Lipitor) 10 mg PO QDAY 02/23/25 Unknown History Held on 05/19/25. Instructions: NOT TAKING RAN OUT gabapentin 100 mg capsule 100 mg PO Q8H PRN pain 02/23/25 Unknown History metoprolol succinate 25 mg 50 mg PO QDAY 02/23/25 Unknown History tablet,extended release 24 hr pantoprazole 20 mg tablet,delayed 20 mg PO QDAY 02/23/25 Unknown History release trazodone 100 mg tablet 100 mg PO QHS PRN insomnia 02/23/25 Unknown History dicyclomine 10 mg capsule 10 mg PO TID PRN abdominal pain 04/13/25 Unknown Rx and cramping #60 caps peg 3350-electrolytes 236 240 ml PO Q10M #4,000 mL 04/28/25 Unknown Rx gram-22.74 gram-6.74 gram-5.86 gram solution (Golytely) calcium 500 mg (as 1 tab PO BID 05/19/25 Unknown History carbonate)-vitamin D3 5 mcg (200 unit) tablet (Oyster Shell Calcium-Vitamin D3) dulaglutide 0.75 mg/0.5 mL 0.75 mg subcut QWEEK 05/19/25 05/09/25 History [facility] Allergy/AdvReac Type Severity Reaction Status Date / Time amoxicillin (From Augmentin) Allergy Unknown unknown Verified 05/20/25 13:39 clavulanic acid (From Allergy Unknown unknown Verified 05/20/25 13:39 Augmentin) codeine phosphate (From Allergy Swelling Verified 05/20/25 13:39 Tylenol-Codeine #3) shellfish derived Allergy Swelling Verified 05/20/25 13:39 venom-honey bee (bee venom Allergy Angioedema Verified 05/20/25 13:39 (honey bee)) Family History Mother Asthma Hypertension Breast cancer Diabetes Father Diabetes Hypertension Hyperlipidemia Colon cancer on fathers side of the family Grandmother Myocardial infarction Grandfather Cancer Lung Grandfather Cancer Throat Aunt Breast cancer Surgical History History of History of tubal ligation History of umbilical hernia repair History of cholecystectomy Social History Smoking Status: Former smoker how long ago did patient quit smokin years ago alcohol intake: never substance use type: does not use additional social history: denies vaping, denies marijuana use, denies edibles, uses ibuprofen and aspirin as needed ROS Constitutional Constitutional: Denies fatigue, fever(s), poor appetite, weight gain or weight loss Gastrointestinal Gastrointestinal: Denies belching, bloating, change in bowel habits, change in stool character, chewing difficulty, coffee ground emesis, constipation, cramping, diarrhea, dyspepsia, dysphagia, early satiety, excessive flatus, fecal incontinence, heartburn, hematemesis, hematochezia, hemorrhoids, loose stools, melena, nausea, odynophagia, rectal bleeding, tenesmus, vomiting or weight changes Vital Signs Vital Signs Vital Signs: 05/20/25 13:41 05/20/25 13:41 Temperature 98 F Temperature Source Temporal Pulse Rate 87 Respiratory Rate 16 Respiratory Pattern Normal Blood Pressure 138/96 H Blood Pressure Mean 110 Blood Pressure Source Monitor Blood Pressure Position Semi-Fowlers Blood Pressure Location Right Arm Pulse Ox 100 Oxygen Delivery Method Room Air Weight Weight: 194 lb 0.108 oz Body Mass Index (BMI) 33.3 Physical Exam Const alert, oriented x3, no apparent distress and healthy appearing General Appearance: cooperative GI normal to inspection, nondistended, normoactive bowel sounds, soft to palpation, non-tender and non-distended Percussion: normal to percussion Rectal Exam: deferred Assessment & Plan Assessment/Plan (1) Nausea and vomiting: (2) Abdominal cramping: PLAN: Assessment and Plan Assessment and Plan (1) Abdominal cramping: Status: Acute Plan: The patient will be prescribed dicyclomine 10 mg to be taken three times a day as needed for abdominal cramping and pain. Stool testing will be conducted to further evaluate gastrointestinal symptoms. A colonoscopy and endoscopy are planned to investigate the cause of abdominal pain and irregular bowel movements. (2) Nausea and vomiting: Status: Acute (3) Ovarian cyst: Status: Acute Plan: \The patient is advised to follow up with her PCP/senior business development analyst for further evaluation of the ovarian cyst noted on imaging. Orders: Orders Calprotectin, Stool Today R10.9 - Unspecified abdominal pain, R11.2 - Nausea with vomiting, unspecified Pancreatic Elastase, Fecal Today R10.9 - Unspecified abdominal pain, R11.2 - Nausea with vomiting, unspecified ENTERIC PATHOGEN PANEL STOOL Today K58.9 - Irritable bowel syndrome, unspecified, R10.9 - Unspecified abdominal pain, R11.2 - Nausea with vomiting, unspecified CRP Today R10.9 - Unspecified abdominal pain, R11.2 - Nausea with vomiting, unspecified CDIFF (PCR) Today R10.9 - Unspecified abdominal pain, R11.2 - Nausea with vomiting, unspecified Gastric Emptying Study - 4 HR Today R10.9 - Unspecified abdominal pain, R11.2 - Nausea with vomiting, unspecified Medications: New dicyclomine 10 mg PO TID PRN 60 caps 1RF abdominal pain and cramping peg 3350-sod sulf,[id number]-jax-pld 178.7-7.3-0.5 gram (Suflave) as directed for split dose bowel prep 2 mL 0RF Plan The patient is a 40-year-old female with a history of diabetes mellitus and anxiety disorder, presenting with abdominal pain and irregular bowel movements. The abdominal pain is characterized by cramping and is associated with alternating episodes of diarrhea and constipation, as well as changes in stool color and consistency. Recent imaging revealed mild splenomegaly and mildly prominent mesenteric lymph nodes, but no acute bowel obstruction or appendicitis. She does have a history of SBO November 2023. The patient's diabetes is poorly controlled, with a recent blood glucose level of 272 mg/dL, and she is not currently on insulin therapy. She was previously on Trulicity, which was discontinued due to concerns about its impact on bowel movements. The patient also reports a history of anxiety disorder, which she believes contributes to her symptoms, including episodes of lightheadedness and passing out, possibly related to fluctuating blood pressure. She is currently taking gabapentin for anxiety and as a nerve carols. The patient has a history of cholecystectomy and reports that certain foods exacerbate her gastrointestinal symptoms. She also has a history of hemorrhoids and an anal fissure, which have contributed to occasional bleeding. Patient Instructions: - Discontinue ketorlac 10mg once daily Q6H for 5 days - Continue Pantoprazole 20mg QD - Colon & EGD - Suflave - Follow up with primary care physician for diabetes management and potential insulin therapy. - Monitor blood glucose levels regularly and make lifestyle changes to improve glycemic control. - Follow up with PCP/senior business development analyst for evaluation of the ovarian cyst. - Complete stool testing as instructed by the lab.
--- NOTE | 2025-05-20 13:55 | PCM.PRE.AN2 ---
ASA Classification* ASA Classification ASA Classification: 2 Assessment & Plan Anesthesia* Anesthesia Assessment Anesthesia Assessment: Discussed sedation and/or anesthesia options, risks, benefits, and alternatives with patient/parents/legal guardian/POA. Questions invited. The patient/parents/legal guardian/POA seems to understand and agrees to proceed with anesthesia plan. Reviewed the physical assessment, medical history, allergy history and patient home medications list prior to surgery/procedure/anesthetic and documented any changes. Performed airway and anesthesia risk assessments. Anesthesia Type Anesthesia Type: MAC History Source History Obtained from:: Patient and Chart Anesthesia Focused Assessment* Temperature: 98 F Pulse Rate: 87 Blood Pressure: 138/96 Respiratory Rate: 16 Pulse Ox: 100 Oxygen Delivery Method: Room Air Airway Assessment Mouth opens: >3 cm Mallampati Score: II Neck Range of motion (ROM): Limited ROM Labs Anesthesia Preop lab: CBC WBC 7.4 K/mm3 (4.4-11.0) 07/15/24 19:02 07/15/24 RBC 4.37 M/mm3 (4.2-5.4) 07/15/24 19:02 07/15/24 Hgb 13.4 g/dL (12.0-15.0) 07/15/24 19:02 07/15/24 Hct 39.4 % (37-47) 07/15/24 19:02 07/15/24 Plt Count 201 K/mm3 (150-450) 07/15/24 19:02 07/15/24 CHEMISTRY Potassium 4.2 mmol/L (3.5-5.1) 05/10/24 07:00 05/10/24 Sodium 138 mmol/L (136-145) 05/10/24 07:00 05/10/24 Magnesium 2.2 mg/dL (1.6-2.6) 05/25/23 15:12 05/25/23 BUN 14 mg/dL (7-18) 05/10/24 07:00 05/10/24 Creatinine 0.76 mg/dL (0.55-1.02) 05/10/24 07:00 05/10/24 Glucose 188 mg/dL (74-106) H 05/10/24 07:00 05/10/24 POC Glucose 153 mg/dL (74-106) H 05/12/24 11:39 05/12/24 TSH 2.38 uIU/mL (0.358-3.74) 05/25/23 15:12 05/25/23 COAG PT 13.3 SECONDS (11.7-14.9) 06/20/17 09:30 06/20/17 Urine Test Negative Negative 02/24/21 14:10 02/24/21 Pre-Assessment Diagnosis/Proposed Procedure Planned Operative Procedure(s): COLONOSCOPY/EGD Anesthesia History Anesthesia History - special delivery carrier: Anesthesia History - special delivery carrier Hx Hospitalization No 05/19/25 10:06 Any Problems With Anesthesia Yes: n/v, slow to wake up 05/19/25 10:06 Cholinesterase deficiency No 05/19/25 10:06 You/Your Family Experience Yes 05/19/25 10:06 fever (hyperthermia) with Relationship DAUGHTER 05/19/25 10:06 Recent Exposure to Contagious No 05/20/25 13:41 Disease Does patient have nerve No 05/19/25 10:06 stimulator Patient instructed to have device shut off --Does patient have Pacemaker No 05/20/25 13:41 or ICD? When Was Last Pacemaker Check QUESTION #4 FULL TEXT: You/Your Family Experience fever (hyperthermia) with Anesthesia Last Oral Intake Last Oral intake: Last Oral Intake NPO since 09:00 05/20/25 13:41 Meds taken in AM with sips of water? 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 - special delivery carrier: PONV - special delivery carrier Female Yes 05/19/25 10:06 HX of Motion Sickness No 05/19/25 10:06 HX of N/V After Surgery No 05/19/25 10:06 Non-Smoker Yes 05/19/25 10:06 Duration of Surgery greater No 05/19/25 10:06 than 60 minutes Number of Risk Factors 2 05/19/25 10:06 PONV Score Moderate Risk 05/19/25 10:06 Height & Weight Height & Weight: Anesthesia: Height & Weight Height 5 ft 4 in 05/20/25 13:41 Weight: 88 kg 05/20/25 13:41 Body Mass Index (BMI) 33.3 05/20/25 13:41 Respiratory Assessment Respiratory Assessment - special delivery carrier: Respiratory Tract Infection Hx - special delivery carrier Hx Respiratory Tract Infection No 05/19/25 10:06 STOP Sleep Apnea STOP Sleep Apnea - special delivery carrier: STOP Sleep Apnea - special delivery carrier Hx Hypertension Yes: NOT CONTROLLED 05/19/25 10:06 Hx Sleep Apnea No 05/19/25 10:06 CPAP No 05/19/25 10:06 BIPAP No 05/19/25 10:06 Do you snore loudly (louder No 05/19/25 10:06 than talking or can be heard Do you often feel tired/ No 05/19/25 10:06 fatigued/ sleepy during daytime? Has anyone observed you stop No 05/19/25 10:06 breathing during sleep? STOP Results Negative 05/19/25 10:06 QUESTION #5 FULL TEXT : Do you snore loudly (louder than talking or can be heard through closed doors)? Tobacco Use History Tobacco Use History - special delivery carrier: Tobacco Use History - special delivery carrier Tobacco Use Non-smoker 02/24/21 13:43 Smoking Status Former smoker 05/19/25 10:06 Hx Tobacco Use No 05/19/25 10:06 Years Smoking Packs Smoked per Day Smoking Cessation Date was Yes - quit smoking within 15 05/19/25 10:06 within the last 15 years years Hx Smoking Cessation Date 10/08/18 05/19/25 10:06 Hx Smoking Cessation No 05/19/25 10:06 Counseling Hematologic Medial History Hematologic Hx - special delivery carrier: Hematologic Medical Hx - property management coordinator Hx of Blood Transfusion No 05/19/25 10:06 Hx of Transfusion in last 3 No 05/19/25 10:06 Months Date of Last Transfusion (if within last 3 months) Ever experience any problems No 05/19/25 10:06 with transfusion(s)? Specify any problems Hx of Preganancy in last 3 No 05/19/25 10:06 Months Nurse Filling Out Transfusion VCHRISTIN 05/19/25 10:06 & Questions: Date: 05/19/25 05/19/25 10:06 Time: 10:07 05/19/25 10:06 Patient unable to answer at this time (ie. confused, unrespo /Reproduction History /Reproductive History - special delivery carrier: /Reproductive Hx- special delivery carrier Hx Now No 05/19/25 10:06 Gestational Age (in weeks): EDC: Hx Hx Para Hx Section SAB No 05/19/25 10:06 Active Medications Active Medications: Current Medications Generic Name Dose Route Start Last Admin Trade Name Freq PRN Reason Stop Dose Admin Lactated Ringer's 1,000 mls @ 15 mls/hr 05/20/25 13:45 05/20/25 13:50 IV 15 mls/hr .Q48H NORA Administration PFSH Medical History Wears dentures Wears glasses Depression Anxiety Diabetes Kidney stones Fatty liver High cholesterol Excessive bleeding TIA (transient ischemic attack) Former smoker History of echocardiogram History of stress test Cardiology follow-up encounter History of irregular heartbeat History of IBS History of anxiety History of depression History of asthma History of seasonal allergies Pott's disease Hypotension COVID-19 virus detected (02/12/21) History of syncope (08/2013) Asthma Dyslexia Migraine History of gestational diabetes Dysthymic disorder Essential hypertension Urinary tract infection Cervical paraspinal muscle spasm Depression Seizures Seizure disorder Type 2 diabetes mellitus Home Medications ?Medication ?Instructions ?Recorded ?Last Taken ?Type handicap placard #1 ea 12/18/22 Unknown Rx miscellaneous medical supply #1 ea 12/18/22 Unknown Rx (Blood Pressure Cuff) mirtazapine 15 mg tablet 15 mg PO QHS 05/09/24 05/08/24 History venlafaxine 150 mg 150 mg PO DAILY 05/09/24 05/09/24 History capsule,extended release 24 hr venlafaxine 37.5 mg 37.5 mg PO DAILY 05/09/24 05/09/24 History capsule,extended release 24 hr lisinopril 10 mg tablet 10 mg PO DAILY 30 days #30 tabs 05/12/24 Unknown Rx Held on 05/19/25. Instructions: RAN OUT OF aripiprazole 15 mg tablet (Abilify) 15 mg PO QDAY 02/23/25 Unknown History Held on 05/19/25. Instructions: NEVER REFILLED atorvastatin 10 mg tablet (Lipitor) 10 mg PO QDAY 02/23/25 Unknown History Held on 05/19/25. Instructions: NOT TAKING RAN OUT gabapentin 100 mg capsule 100 mg PO Q8H PRN pain 02/23/25 Unknown History metoprolol succinate 25 mg 50 mg PO QDAY 02/23/25 Unknown History tablet,extended release 24 hr pantoprazole 20 mg tablet,delayed 20 mg PO QDAY 02/23/25 Unknown History release trazodone 100 mg tablet 100 mg PO QHS PRN insomnia 02/23/25 Unknown History dicyclomine 10 mg capsule 10 mg PO TID PRN abdominal pain 04/13/25 Unknown Rx and cramping #60 caps peg 3350-electrolytes 236 240 ml PO Q10M #4,000 mL 04/28/25 Unknown Rx gram-22.74 gram-6.74 gram-5.86 gram solution (Golytely) calcium 500 mg (as 1 tab PO BID 05/19/25 Unknown History carbonate)-vitamin D3 5 mcg (200 unit) tablet (Oyster Shell Calcium-Vitamin D3) dulaglutide 0.75 mg/0.5 mL 0.75 mg subcut QWEEK 05/19/25 05/09/25 History subcutaneous pen injector (Trulicity) Allergy/AdvReac Type Severity Reaction Status Date / Time amoxicillin (From Augmentin) Allergy Unknown unknown Verified 05/20/25 13:39 clavulanic acid (From Allergy Unknown unknown Verified 05/20/25 13:39 Augmentin) codeine phosphate (From Allergy Swelling Verified 05/20/25 13:39 Tylenol-Codeine #3) shellfish derived Allergy Swelling Verified 05/20/25 13:39 venom-honey bee (bee venom Allergy Angioedema Verified 05/20/25 13:39 (honey bee)) Family History Mother Asthma Hypertension Breast cancer Diabetes Father Diabetes Hypertension Hyperlipidemia Colon cancer on fathers side of the family Grandmother Myocardial infarction Grandfather Cancer Lung Grandfather Cancer Throat Aunt Breast cancer Surgical History History of History of tubal ligation History of umbilical hernia repair History of cholecystectomy Social History Smoking Status: Former smoker how long ago did patient quit smokin years ago alcohol intake: never substance use type: does not use additional social history: denies vaping, denies marijuana use, denies edibles, uses ibuprofen and aspirin as needed Review of Systems (Anesthesia) ROS Narrative System reviewed and no additional complaints, except as documented.
--- NOTE | 2025-05-20 14:30 | COLBX_PTH ---
PATIENT: REINALDO WARREN LOC: EN U#:[id number] AGE/SX: 40/F ROOM: RE05/20/[address]: Dr. Pipo Romero DO : 1985 BED: DIS: 05/20/2025 SPEC #: [id number] RECD: 05/20/25 15:16 STATUS: MAEGAN CELSA #: [id number] DONAVON: 05/20/25 14:[address]: Pipo Romero DEPT: SURGICAL PATHOLOGY RECD BY: Mark Wells ENTERED: 05/20/25 15:34 SP TYPE: COLON BX OTHR DR: Margaret Cespedes, SPACE SCIENCES DIRECTOR-C Tissues: A - Gastric mucous membrane B - Duodenum, NOS C - Ileum, NOS D - COLON BIOPSY E - Sigmoid colon biopsy Procedures: Immunohistochemical Stains Surgery Specimen Level IV HEADER OPERATION: Colonoscopy with biopsy, EGD with biopsy PRE-OP DIAGNOSIS: Nausea / vomiting, abdominal cramping TISSUE SUBMITTED: A- Gastric body biopsy, B- Duodenum biopsy, C- Terminal ileum biopsy, D- Random colon biopsy, E- Sigmoid colon polyp biopsy MICROSCOPIC DIAGNOSIS A. Gastric body, biopsy: - Oxyntic mucosa with chronic gastritis. - IHC positive for H. pylori organisms. B. Duodenum, biopsy: - No specific pathologic change. C. Terminal ileum, biopsy: - Normal villous architecture with reactive mucosal lymphoid aggregates. D. Colon, random, biopsy: - Melanosis coli. E. Sigmoid colon, polyp, biopsy: - Tubular adenoma. MICROSCOPIC DESCRIPTION Slides are reviewed. All matched controls reacted appropriately. These tests were developed and their performance characteristics determined by [facility]. They may not have been cleared or approved by the [place]. Food and Drug Administration. The FDA has determined that such clearance or approval is not necessary. The above immunohistochemical markers are reviewed by the Pathologist. GROSS DESCRIPTION A. Received in fixative is one container labeled with the patient's name and designated Gastric body biopsy. The specimen consists of two irregular fragments of light macias soft tissue that measure 0.5 and 0.6 cm. The specimen is totally submitted in one cassette. B. Received in fixative is one container labeled with the patient's name and designated Duodenum biopsy. The specimen consists of two irregular fragments of light macias soft tissue that measure 0.3 and 0.5 cm. The specimen is totally submitted in one cassette. C. Received in fixative is one container labeled with the patient's name and designated Terminal ileum biopsy. The specimen consists of two irregular fragments of light macias soft tissue that measure 0.1 and 0.5 cm. The specimen is totally submitted in one cassette. D. Received in fixative is one container labeled with the patient's name and designated Random colon biopsy. The specimen consists of multiple irregular fragments of light macias soft tissue that in aggregate measure 1 x 0.7 x 0.1 cm. The specimen is totally submitted in one cassette. E. Received in fixative is one container labeled with the patient's name and designated Sigmoid colon polyp biopsy. The specimen consists of three irregular fragments of light macias soft tissue that measure 0.3 to 0.5 cm. The specimen is totally submitted in one cassette. MI 05/20/2025 CPT:87658j1,94070
--- NOTE | 2025-05-20 14:58 | OP.EGD_ITS ---
Patient Name: Jericho Helm Procedure Date: 05/20/2025 2:15 PM Date of : 1985 Age: 40 Procedure: Upper GI endoscopy Indications: Generalized abdominal pain, Functional Dyspepsia, Indigestion, Suspected esophageal reflux Providers: Pipo Romero DO Referring MD: Margaret Cespedes Np-jeannine Medicines: Monitored Anesthesia Care Patient Profile: This is a 40 year old female. Refer to note in patient chart for documentation of history and physical. Patient has symptoms of chronic abdominal cramping, chronic abdominal distention, acute global abdominal pain, chronic dyspepsia, acute heartburn, chronic nausea and chronic vomiting. Complications: No immediate complications. Procedure: Pre-Anesthesia Assessment: - Prior to the procedure, a History and Physical was performed, and patient medications and allergies were reviewed. The patient is competent. The risks and benefits of the procedure and the sedation options and risks were discussed with the patient. All questions were answered and informed consent was obtained. Patient identification and proposed procedure were verified by the physician in the pre-procedure area. Mental Status Examination: alert and oriented. Airway Examination: normal oropharyngeal airway and neck mobility. Respiratory Examination: clear to auscultation. CV Examination: normal. Prophylactic Antibiotics: The patient does not require prophylactic antibiotics. Prior Anticoagulants: The patient has taken no anticoagulant or antiplatelet agents except for NSAID medication. ASA Grade Assessment: II - A patient with mild systemic disease. After reviewing the risks and benefits, the patient was deemed in satisfactory condition to undergo the procedure. The anesthesia plan was to use monitored anesthesia care (MAC). Immediately prior to administration of medications, the patient was re-assessed for adequacy to receive sedatives. The heart rate, respiratory rate, oxygen saturations, blood pressure, adequacy of pulmonary ventilation, and response to care were monitored throughout the procedure. The physical status of the patient was re-assessed after the procedure. After obtaining informed consent, the endoscope was passed under direct vision. Throughout the procedure, the patient's blood pressure, pulse, and oxygen saturations were monitored continuously. The Colonoscope was introduced through the mouth, and advanced to the fourth part of the duodenum. Small bowel enteroscopy was deemed necessary. The upper GI endoscopy was accomplished without difficulty. The patient tolerated the procedure well. Scope In: 2:33:39 PM Scope Out: 2:38:20 PM Total Procedure Duration Time 0 hours 4 minutes 41 seconds Findings: No gross lesions were noted in the entire esophagus. Diffuse mild inflammation characterized by congestion (edema) and erythema was found in the gastric body. Biopsies were taken with a cold forceps for histology. Verification of patient identification for the specimen was done. Estimated blood loss was minimal. Biopsies were taken with a cold forceps for Helicobacter pylori testing. Verification of patient identification for the specimen was done. Estimated blood loss was minimal. No gross lesions were noted in the entire examined duodenum. Biopsies were taken with a cold forceps for histology. Verification of patient identification for the specimen was done. Estimated blood loss was minimal. Impression: - No gross lesions in the entire esophagus. - Chronic gastritis. Biopsied. - No gross lesions in the entire examined duodenum. Biopsied. Recommendation: - Discharge patient to home. - Resume previous diet. - Continue present medications. - Await pathology results. Procedure Code(s): --- Professional --- 75440, Small intestinal endoscopy, enteroscopy beyond second portion of duodenum, not including ileum; with biopsy, single or multiple CPT copyright 2021 [employer]. All rights reserved. The codes documented in this report are preliminary and upon drying room attendant review may be revised to meet current compliance requirements. Pipo Romero DO 05/20/2025 2:58:18 PM This report has been signed electronically. Number of Addenda: 0 Note Initiated On: 05/20/2025 2:15 PM
--- NOTE | 2025-05-20 14:59 | OP.PROVAT_ITS ---
05/20/2025 Margaret Cespedes Np-jeannine Re : Upper GI endoscopy procedure for Jericho Helm Dear Coy This procedure was performed on Tuesday, May 20, 2025. My impressions and recommendations are as follows: Impressions : - No gross lesions in the entire esophagus. - Chronic gastritis. Biopsied. - No gross lesions in the entire examined duodenum. Biopsied. Recommendations : - Discharge patient to home. - Resume previous diet. - Continue present medications. - Await pathology results. My findings are described in the full procedure note, which is enclosed. If I can be of further assistance, please feel free to contact me at . Sincerely, Pipo Romero DO 05/20/2025 2:58:18 PM This report has been signed electronically.
--- NOTE | 2025-05-20 15:00 | PCM.POST.ANE ---
Anesthesia: Postop Eval I Current Vital Signs Temperature: 97 F Pulse Rate: 81 Blood Pressure: 115/79 Respiratory Rate: 16 Pulse Ox: 99 Oxygen Delivery Method: Room Air Assessment Airway patent: Yes Spontaneous unlabored respirations: Yes Mental status: Asleep nausea: No Vomiting: No Anesthesia Complication: No Fluid Hydration Crystalloid volume administer (ml): 500 Total IV fluid infused: 500 Progress Note Anesthesia document: Postop Eval 1 completed: Yes
--- NOTE | 2025-05-20 15:04 | OP.COLON_ITS ---
Patient Name: Jericho Helm Procedure Date: 05/20/2025 2:38 PM Date of : 1985 Age: 40 Procedure: Colonoscopy Indications: Epigastric abdominal pain, Chronic diarrhea Providers: Pipo Romero DO Referring MD: Margaret Cespedes Np-c Medicines: Monitored Anesthesia Care Patient Profile: This is a 40 year old female. Refer to note in patient chart for documentation of history and physical. Patient has symptoms of chronic abdominal cramping, chronic abdominal distention, acute global abdominal pain, chronic dyspepsia, acute heartburn, chronic nausea and chronic vomiting. Last Colonoscopy: none. The patient's first colonoscopy is today. Complications: No immediate complications. Procedure: Pre-Anesthesia Assessment: - Prior to the procedure, a History and Physical was performed, and patient medications and allergies were reviewed. The patient is competent. The risks and benefits of the procedure and the sedation options and risks were discussed with the patient. All questions were answered and informed consent was obtained. Patient identification and proposed procedure were verified by the physician in the pre-procedure area. Mental Status Examination: alert and oriented. Airway Examination: normal oropharyngeal airway and neck mobility. Respiratory Examination: clear to auscultation. CV Examination: normal. Prophylactic Antibiotics: The patient does not require prophylactic antibiotics. Prior Anticoagulants: The patient has taken no anticoagulant or antiplatelet agents except for NSAID medication. ASA Grade Assessment: II - A patient with mild systemic disease. After reviewing the risks and benefits, the patient was deemed in satisfactory condition to undergo the procedure. The anesthesia plan was to use monitored anesthesia care (MAC). Immediately prior to administration of medications, the patient was re-assessed for adequacy to receive sedatives. The heart rate, respiratory rate, oxygen saturations, blood pressure, adequacy of pulmonary ventilation, and response to care were monitored throughout the procedure. The physical status of the patient was re-assessed after the procedure. After I obtained informed consent, the scope was passed under direct vision. Throughout the procedure, the patient's blood pressure, pulse, and oxygen saturations were monitored continuously. The Colonoscope was introduced through the anus and advanced to the terminal ileum. The colonoscopy was performed without difficulty. The patient tolerated the procedure well. The quality of the bowel preparation was adequate. The terminal ileum, ileocecal valve, appendiceal orifice, and rectum were photographed. Scope In: 2:39:45 PM Scope Withdrawal Time 0 hours 6 minutes 47 seconds Scope Out: 2:48:22 PM Total Procedure Duration Time 0 hours 8 minutes 37 seconds Findings: The perianal and digital rectal examinations were normal. An 8 mm polyp was found in the sigmoid colon. The polyp was sessile. The polyp was removed with a jumbo cold forceps. Resection and retrieval were complete. Verification of patient identification for the specimen was done. Estimated blood loss was minimal. An area of mildly congested mucosa was found in the ascending colon. Biopsies were taken with a cold forceps for histology. Verification of patient identification for the specimen was done. Estimated blood loss was minimal. The terminal ileum appeared normal. Biopsies were taken with a cold forceps for histology. Verification of patient identification for the specimen was done. Estimated blood loss was minimal. Impression: - One 8 mm polyp in the sigmoid colon, removed with a jumbo cold forceps. Resected and retrieved. - Congested mucosa in the ascending colon. Biopsied. - The examined portion of the ileum was normal. Biopsied. Recommendation: - Discharge patient to home. - Resume previous diet. - Continue present medications. - Await pathology results. - Repeat colonoscopy in 5 years for surveillance. Procedure Code(s): --- Professional --- 85779, Colonoscopy, flexible; with biopsy, single or multiple CPT copyright 2021 [employer]. All rights reserved. The codes documented in this report are preliminary and upon linking machine operator review may be revised to meet current compliance requirements. Pipo Romero DO 05/20/2025 3:04:02 PM This report has been signed electronically. Number of Addenda: 0 Note Initiated On: 05/20/2025 2:38 PM
--- NOTE | 2025-05-20 15:04 | OP.PROVAT_ITS ---
05/20/2025 Margaret Cespedes, Dwainc Re : Colonoscopy procedure for Jericho Helm Dear Coy This procedure was performed on Tuesday, May 20, 2025. My impressions and recommendations are as follows: Impressions : - One 8 mm polyp in the sigmoid colon, removed with a jumbo cold forceps. Resected and retrieved. - Congested mucosa in the ascending colon. Biopsied. - The examined portion of the ileum was normal. Biopsied. Recommendations : - Discharge patient to home. - Resume previous diet. - Continue present medications. - Await pathology results. - Repeat colonoscopy in 5 years for surveillance. My findings are described in the full procedure note, which is enclosed. If I can be of further assistance, please feel free to contact me at . Sincerely, Pipo Romero, 05/20/2025 3:04:02 PM This report has been signed electronically.
--- NOTE | 2025-05-20 15:37 | PCM.POSTANE2 ---
Anesthesia Postop Eval I Sum Postop Eval Completion status Anesthesia document: Postop Eval 1 completed: Yes Anesthesia Postop Eval I Summary Anesthesia Postop Eval I Summary: Anesthesia Postop Eval I: Assessment Summary Airway patent Yes 05/20/25 15:02 [email or web address] Spontaneous unlabored Yes 05/20/25 15:02 [email or web address] respirations Mental status Asleep 05/20/25 15:02 [email or web address] nausea No 05/20/25 15:02 [email or web address] Vomiting No 05/20/25 15:02 [email or web address] Anesthesia Postop Eval I: Fluid Summary Crystalloid volume administer 500 05/20/25 15:02 [email or web address] (ml) Colloids volume administered ( ml) Blood Product volume administered (ml) Total IV fluid infused 500 05/20/25 15:02 [email or web address] Anesthesia Postop Eval I: Summary Notes Anesthesia Complication No 05/20/25 15:02 [email or web address] Anesthesia Complication Comment: Post-operative progress note Anesthesia: Postop Eval II Evaluation Mental status: Awake Pain Level: 0 nausea: No Vomiting: No
--- OUTSIDE RECORDS SUMMARY | 2025-05-20 20:04 | XMS RPT_ITS | CCD ---
Author Organization [facility] Care Team Providers Care Inspector Eyeglass Frames Name Role Phone Neeta Marr Unavailable Unavailable Jenny Venkat Unavailable Unavailable Unknown, Unknown Unavailable Unavailable CRISTIAN JORDAN, SHARON BROWN Primary Care Physicia n Cristian JORDAN, Sharon Banuelos Primary Care Provider [phone] Sharon Foster MD Primary Care Provider Sharon Foster MD Primary Care Provider Gill Jauregui Unavailable [phone] Dimitry Hernandez Unavailable Lorrie Altamirano RN Unavailable Unavailable Sharon Foster MD Primary Care Provider [phone] Required, No Pcp Unavailable Unavailable Elidia Hamilton Unavailable Unavailable Chidi Dunbar Unavailable Unavailable SHARON FOSTER Primary Care Unavailable NICOLASA ARMENTA Attending Unavailable LUIS MANUEL-ANGIE ADAMS Referring Unavaila JUAN DIEGO Varghese Admitting Unavailable AZZAM, RAED H Consulting Unavailable SHARON FOSTER Primary Care Unavailable AZZAM, RAED H Attending Unavailable BREANA SUTHERLAND Attending Unava ilable SHARON FOSTER Primary Care Unavailable SHARON FOSTER Primary Care Unavailable KATYKLANGIE HAIRSTON Attending Unavaila ble YURIDIA Monreal Referring Provider YURIDIA Monreal Other Provider Care Physician, No Primary Primary Care Provider Unavailable Dr. Preet Mckeon Attending Provider Dr. Kurt Foster Referring Provider Jerry MURRIETA, EZ Pro Attending Provider Johs PROSTHETICS LAB TECHNICIAN.PUBLIC SAFETY TELECOMMUNICATOR, Brayden Primary Care Provider Cristian JORDAN, Sharon Banuelos Primary Care Provider Care Physician, No Primary Primary Care Provider Unavailable Care Physician, No Primary Referring Provider Un available Jerry LABORER HEADING, LABORER HEADING-C Inocencia Attending Provider Ulises Whitaker Unavailable Unavailable Dr. Chidi Dunbar Attending Unavailjerod WHITAKER CNP, PHD ULISES ROBERSON Attending Dr. Elidia Marmolejo Attending Unavaila ble UNKNOWN, UNKNOWN Primary Care Unavailable UNKNOWN, UNKNOWN Primary Care Unavailable Dr. Dimitry Hernandez Attending Unavail able Unavailable Primary Care Provider Unavailabl e Generic Provider MD, No Assigned Pcp Primary Car e Provider Unavailable Generic Provider MD, No Assigned Pcp Primary Car e Provider Zora JORDAN, John Primary Care Provider Generic Provider MD, No Assigned Pcp Primary Car e Provider Unavailable Lorrie Altamirano RN Unavailable Unavailable Generic Provider , No Assigned Pcp Primary Car e Provider Unavailable Josh PROSTHETICS LAB TECHNICIAN.PUBLIC SAFETY TELECOMMUNICATOR, Brayden Primary Care Provider Cespedes PROSTHETICS LAB TECHNICIAN-PUBLIC SAFETY TELECOMMUNICATOR, Petros D Primary Care Provider Cristian JORDAN, Sharon Banuelos Primary Care Provider KNOBLE, BRAYDEN Primary Care Unavailable ANGELA, JEANETTE Referring Unavailable ANGELA, JEANETTE Attending Unavailable KNOBLE, BRAYDEN Primary Care Unavailable ANGELA, JEANETTE Referring Unavailable ANGELA, JEANETTE Attending Unavailable KNOBLE, BRAYDEN Primary Care Unavailable ANGELA, JEANETTE Attending Unavailable ANGELA, JEANETTE Referring Unavailable KNOBLE, BRAYDEN Primary Care Unavailable ANGELA, JEANETTE Attending Unavailable ANGELA, JEANETTE Referring Unavailable KNOBLE, BRAYDEN Primary Care Unavailable ANGELA, JEANETTE Attending Unavailable ANGELA, JEANETTE Referring Unavailable ANGELA, JEANETTE Attending Unavailable KNOBLE, BRAYDEN Primary Care Unavailable ANGELA, JEANETTE Referring Unavailable KNOBLE, BRAYDEN Primary Care Unavailable ANGELA, JEANETTE Attending Unavailable Cespedes PROSTHETICS LAB TECHNICIAN-PUBLIC SAFETY TELECOMMUNICATOR, Petros D Primary Care Provider [phone] Cespedes PROSTHETICS LAB TECHNICIAN-PUBLIC SAFETY TELECOMMUNICATOR, Petros D Primary Care Provider Unavailable Primary Care Provider Unavailabl e CESPEDES, PETROS D Primary Care Unavailable CESPEDES, PETROS D Primary Care Unavailable CESPEDES, PETROS D Primary Care Unavailable CESPEDES, PETROS D Primary Care Unavailable CESPEDES, PETROS D Primary Care Unavailable CAMRYN GRUBER Attending Unavailabl e CESPEDES, PETROS D Primary Care Unavailable CESPEDES, PETROS D Primary Care Unavailable CESPEDES, PETROS D Primary Care Unavailable CESPEDES, PETROS D Primary Care Unavailable LEB, ELVIS B Referring Unavailable CESPEDES, PETROS D Primary Care Unavailable CESPEDES, PETROS D Primary Care Unavailable CESPEDES, PETROS D Primary Care Unavailable CESPEDES, PETROS D Primary Care Unavailable CESPEDES, PETROS D Primary Care Unavailable CESPEDES, PETROS D Primary Care Unavailable CESPEDES, PETROS D Primary Care Unavailable CESPEDES, PETROS D Primary Care Unavailable CESPEDES, PETROS D Primary Care Unavailable CESPEDES, PETROS D Primary Care Unavailable CESPEDES, PETROS D Primary Care Unavailable CESPEDES, PETROS D Primary Care Unavailable CESPEDES, PETROS D Primary Care Unavailable CESPEDES, PETROS D Primary Care Unavailable CESPEDES, PETROS D Primary Care Unavailable CESPEDES, PETROS D Primary Care Unavailable CESPEDES, PETROS D Primary Care Unavailable CESPEDES, PETROS D Primary Care Unavailable LEB, ELVIS B Referring Unavailable CESPEDES, PETROS D Primary Care Unavailable LEB, ELVIS B Referring Unavailable CESPEDES, PETROS D Primary Care Unavailable CESPEDES, PETROS D Primary Care Unavailable CESPEDES, PETROS D Primary Care Unavailable CESPEDES, PETROS D Primary Care Unavailable Delon JORDAN, Dr. Petros Chaudhry Primary Care Provider [phone] Dr. Petros Jernigan MD Referring Provider [phone] Lidia York Attending Provider Coy MURRIETA-Theo Petros D Primary Care Provider [phone] Lidia York Referring Provider NO, PHYSICIAN Primary Care Unavailable JEEVAN REYES Attending Unava ilable VIKI BLUE Attending Unavailable CESPEDES, PETROS D Primary Care Unavailable VIKI BLUE Attending Unavailable CESPEDES, PETROS D Primary Care Unavailable VIKI BLUE Attending Unavailable CESPEDES, PETROS D Primary Care Unavailable VIKI BLUE Attending Unavailable CESPEDES, PETROS D Primary Care Unavailable VIKI BLUE Attending Unavailable CESPEDES, PETROS D Primary Care Unavailable AUGUSTA CHÁVEZ Attending Unavailable CESPEDES, PETROS D Primary Care Unavailable RASHAWN ROYAL Attending Unavailable CESPEDES, PETROS D Primary Care Unavailable AUGUSTA CHÁVEZ Attending Unavailable CESPEDES, PETROS D Primary Care Unavailable ELVIS RANDOLPH Attending Unavailable CESPEDES, PETROS D Primary Care Unavailable VIKI BLUE Attending Unavailable VIKI BLUE Referring Unavailable CESPEDES, PETROS D Primary Care Unavailable ELVIS RANDOLPH Attending Unavailable CESPEDES, PETROS D Primary Care Unavailable ELVIS RANDOLPH B Attending Unavailable CESPEDES, PETROS D Primary Care Unavailable CESPEDES, PETROS D Attending Unavailable CESPEDES, PETROS D Primary Care Unavailable CESPEDES, PETROS D Attending Unavailable CESPEDES, PETROS D Primary Care Unavailable CESPEDES, PETROS D Attending Unavailable LEMWOLF PEREZ Referring Unavailable CESPEDES, PETROS D Primary Care Unavailable CESPEDES, PETROS D Attending Unavailable CESPEDES, PETROS D Primary Care Unavailable CLARY SMITH Attending Unavailable CESPEDES, PETROS D Referring Unavailable CESPEDES, PETROS D Primary Care Unavailable CESPEDES, PETROS D Primary Care Unavailable CESPEDES, PETROS D Attending Unavailable CESPEDES, PETROS D Primary Care Unavailable CESPEDES, PETROS D Primary Care Unavailable WOLF MARIN Attending Unavailable CESPEDES, PETROS D Referring Unavailable CESPEDES, PETROS D Primary Care Unavailable ANIA URIARTE Attending Unavailable CESPEDES, PETROS D Primary Care Unavailable CESPEDES, PETROS D Primary Care Unavailable MACKENZIE GALLARDO Attending Unavailable FREEDOM CORDON Referring Unavaila ble CESPEDES, PETROS D Primary Care Unavailable CLARY SMITH Referring Unavailable CESPEDES, PETROS D Primary Care Unavailable CLARY SMITH Referring Unavailable CESPEDES, PETROS D Primary Care Unavailable CLARY SMITH Referring Unavailable CESPEDES, PETROS D Primary Care Unavailable CESPEDES, PETROS D Primary Care Unavailable CESPEDES, PETROS D Primary Care Unavailable ANIA URIARTE Attending Unavailable CESPEDES, PETROS D Primary Care Unavailable CESPEDES, PETROS D Primary Care Unavailable WOLF MARIN Attending Unavailable TOMASA, ELVIS B Referring Unavailable CESPEDES, PETROS D Primary Care Unavailable GRECIA HONEYCUTT Attending Unavailable TOMASA, ELVIS B Referring Unavailable CESPEDES, PETROS D Primary Care Unavailable TOMASA, ELVIS B Referring Unavailable CESPEDES, PETROS D Primary Care Unavailable GRECIA HONEYCUTT Attending Unavailable TOMASA, ELVIS B Referring Unavailable CESPEDES, PETROS D Primary Care Unavailable TOMASA, ELVIS B Referring Unavailable CESPEDES, PETROS D Primary Care Unavailable TOMASA, ELVIS B Referring Unavailable CESPEDES, PETROS D Primary Care Unavailable LEB, ELVIS B Referring Unavailable CESPEDES, PETROS D Primary Care Unavailable CESPEDES, PETROS D Primary Care Unavailable PABLO ANDREWS Attending Unavailable CESPEDES, PETROS D Primary Care Unavailable WOLF MARIN Attending Unavailable CESPEDES, PETROS D Primary Care Unavailable ASHLEY, RENEE L Referring Unavailable FARIBA MONSON Attending Unavailable ASHLEY, RENEE L Referring Unavailable ASHLEY, RENEE L Attending Unavailable Jolliff, Petros S Referring Unavailable Anne Marie Smith Attending Unavailable Jolliff, Petros S Primary Care Unavailable Jolliff, Petros S Referring Unavailable Jolliff, Petros S Primary Care Unavailable Elvis Platt Attending Unavailable Anselmo LABORER HEADING, Briana Way Attending Unavailabl e Care Physician, No Primary Primary Care Unava ilable Care Physician, No Primary Referring Unava ilable Jolliff, Petros S Primary Care Unavailable Lidia De Souza Attending Unavailable Jolliff, Petros S Primary Care Unavailable Rachel Christiansen Attending Unavailable SisElvis brock Attending Unavailable Siska Elvis Referring Unavailable Care Physician, No Primary Primary Care Unava ilable Cespedes, Petros D Primary Care Unavailable Cespedes, Petros D Referring Unavailable Pipo Romero Attending Unavailable Cespedes, Petros D Primary Care Unavailable Lidia De Souza Attending Unavailable ApLidia Referring Unavailable Cespedes, Petros D Primary Care Unavailable Lidia De Souza Attending Unavailable Lidia De Souza Referring Unavailable SisElvis brock Attending Unavailable Care Physician, No Primary Primary Care Unava ilable Care Physician, No Primary Referring Unava ilable Jolliff, Petros S Referring Unavailable ApLidia Attending Unavailable Jolliff, Petros S Primary Care Unavailable Cespedes LABORER HEADING-C, Petros D Referring Provider Friend Dr. Pipo LAKHANI Attending Provider Friend Dr. Pipo LAKHANI Other Provider Allergies Allergy Classification Reported Allergen(s) Allergy Type Date of Onset Reaction(s) Facility Amoxicillin / Clavulanate (1 source) Amoxicillin / Clavulanate Drug Allergy 1 Mental Status Change [facility] Work Phone: Opioid Agonists (1 source) Codeine Drug Allergy 7 Swelling [facility] Shellfish (1 source) Shellfish Food Allergy 1 Swelling [facility] (20 sources) Codeine; Translations: [codeine] Drug Allergy 7 Swelling, Rash [facility] (20 sources) Shellfish; Translations: [SHELLFISH] Food allergy 1 Swelling [facility] (20 sources) Amoxicillin / Clavulanate; Translations: [AMOXICILLIN-POT CLAVULANATE] Drug Allergy 1 Mental Status Change, Other [facility] Work Phone: (20 sources) Venom-Honey Bee; Translations: [VENOM-HONEY BEE] Drug Allergy 9 Swelling, Angioedema [facility] (4 sources) Shellfish Anaphylaxis [facility] (18 sources) Acetaminophen; Translations: [ACETAMINOPHEN] Drug Allergy 4 Swelling [facility] (20 sources) Amoxicillin; Translations: [AMOXICILLIN] Drug Allergy 1 Unknown [facility] (20 sources) Clavulanate; Translations: [CLAVULANIC ACID] Drug Allergy 1 Unknown [facility] (12 sources) Codeine; Translations: [codeine phosphate] Drug Allergy 2 Swelling [facility] (20 sources) Shellfish; Translations: [SHELLFISH DERIVED] Allergy to substance 2 Anaphylaxis [facility] (3 sources) BEE VENOM PROTEIN (HONEY BEE); Translations: [BEE VENOM PROTEIN (HONEY BEE)] Propensity to adverse reactions to drug (disorder) 9 [facility] (1 source) Acetaminophen / Codeine; Translations: [ACETAMINOPHEN-CO DEINE] Drug Allergy 5 [facility] Rep[facility] (1 source) Amoxicillin Drug Allergy 5 [facility] (1 source) Clavulanate Drug Allergy 5 [facility] (1 source) venom-honey bee Drug allergy (disorder) 5 [facility] Medications Current Medications Medication Drug Class(es) Dates Sig (Normalized) Sig (Original) Acetaminophen (1 source) Start: 12-06-2023 take 1 tablet by mouth every four hours as needed acetaminophen (Tylenol) tablet 650 mg [id number] 200 actuat albuterol 0.09 mg/actuat metered dose inhaler (20 sources) beta2-Adrenergic Agonist Start: 04-06-2024 End: 12-10-2024 take 2 puff(s) by inhalation every six hours for wheezing albuterol 90 mcg/actuation inhaler Indications: Chest pain, unspecified type Inhale 2 puffs every 6 hours if needed for wheezing or shortness of breath. 1 g 04/06/2024 12/10/2024 Discontinued (Med List Cleanup) Start: 02-20-2024 End: 04-06-2024 take 2 puff(s) by inhalation every four hours for wheezing albuterol (Proventil HFA) 90 mcg/actuation inhaler Indications: Mild intermittent asthma, unspecified whether complicated (HHS-HCC) Inhale 2 puffs every 4 hours if needed for wheezing or shortness of breath. 18 g 11 02/20/2024 04/06/2024 Discontinued Start: 07-29-2021 End: 07-15-2024 Albuterol Sulfate 90 mcg/act uation HFA aerosol inhaler Discontinued 2 NMA INHALATION Q4H as needed for Asthma July 29, 2021 11:23am July 15, 2024 6:56pm Start: 07-29-2021 take 1 puff(s) by in halation every four hours Albuterol Sulfate Active 2 PUFF INHALATION Q4H July 29, 2021 10:23am Start: 07-25-2021 End: 09-27-2022 take 2 puff(s) by inhalation every four hours as needed for wheezing albuterol HFA (PROAIR HFA) 90 mcg/actuation inhaler Indications: Asthma, unspecified asthma severity, unspecified whether complicated, unspecified whether persistent Inhale 2 Puffs as instructed every 4 hours as needed for wheezing/shortness of breath. 8 g 5 07/25/2021 09/27/2022 Discontinued Start: 11-07-2019 End: 02-16-2021 take 2 puff(s) by inhalation every four hours as needed albuterol HFA (PROAIR HFA) 90 mcg/actuation inhaler Indications: Mild intermittent asthma with acute exacerbation Inhale 2 Puffs as instructed every 4 hours as needed. 1 Inhaler 11/07/2019 02/16/2021 Discontinued Start: 11-07-2019 Albuterol Sulf ate HFA 108 (90 Base) MCG/ACT Inhalation Aerosol Solution Quantity: 7 Refills: 0 Start : 07-Nov-2019 Active Start: 08-13-2019 End: 07-29-2021 Albuterol Sulfate 1 INHALER inhaler Discontinued 1 - 2 NMA INHALATION EVERY 6 HOURS NEEDED as needed for Asthma August 13, 2019 1:00am July 29, 2021 11:24am Start: 08-13-2019 End: 07-29-2021 take 1 puff(s) by inhalation every six hours as needed Albuterol Sulfate Discontinued 1 - 2 PUFF INHALATION EVERY 6 HOURS NEEDED August 13, 2019 12:00am July 29, 2021 10:24am Start: 10-07-2018 take 2 puff(s) by in halation every four hours as needed for wheezing Ventolin HFA MDI (90 mcg/inh) inhalation aerosol 2 puff(s), Inhalation, q4h, PRN as needed for wheezing, # 18 gram(s), 0 Refill(s) Start Date: 10/07/18 Status: Ordered Comment on above: Inhale 2 Puffs as in structed every 4 hours as needed for wheezing/shortness of breath. ARIPiprazole 15 mg oral tablet (20 sources) Atypical Antipsychotic Start: End: take 1 tablet by mouth once daily Aripiprazole (Abilify) 15 mg tablet Active 15 mg PO daily February 23, 2025 12:00am On Hold: NEVER REFILLED atorvastatin 10 mg oral tablet (20 sources) HMG-CoA Reductase Inhibitor Start: take 1 tablet by mouth once daily Atorvastatin (Lipitor) 10 mg tablet Active 10 mg PO daily February 23, 2025 12:00am On Hold: NOT TAKING RAN OUT Start: 02-20-2024 End: 02-23-2025 take 1 tablet by mouth once daily Atorvastatin 20 mg tablet Discontinued 20 mg PO DAILY May 09, 2024 12:00am February 23, 2025 7:07am azithromycin 250 mg oral tablet (3 sources) Macrolide Antimicrobial Start: 12-10-2024 End: 12-17-2024 azithromycin (Zithromax) 250 mg tablet Indications: Acute non-recurrent maxillary sinusitis Take 2 tablets (500 mg) by mouth once daily for 1 day, THEN 1 tablet (250 mg) once daily for 4 days. Take 2 tabs (500 mg) by mouth today, than 1 daily for 4 days.. 6 tablet 12/10/2024 12/17/2024 Discontinued (Therapy completed) Start: 02-12-2021 End: 02-17-2021 take 1 tablet by mouth once daily Zithromax Z-Kvgn 250 mg oral tablet 1 dose, Oral, Daily, # 6 tab(s), 0 Refill(s), Sinusitis, 86.4 Start Date: 02/12/21 Stop Date: 02/17/21 Status: Ordered Blood-Glucose Sensor (DEXCOM G6 SENSOR) myah (9 sources) Start: 05-30-2023 End: 11-29-2023 Blood-Glucose Sensor (DEXCOM G6 SENSOR) myah Use to monitor glucose 3 times daily and continuously. Change every 10 days. 9 Each 3 05/30/2023 11/29/2023 Discontinued Start: 05-30-2023 Blood-Glucose Sensor (DEXCOM G6 SENSOR) myah Use to monitor glucose 3 times daily and continuously. Change every 10 days. 9 Each 3 05/30/2023 Active Comment on above: Use to monitor gluco se 3 times daily and continuously. Change every 10 days. busPIRone hydrochloride 10 mg oral tablet (20 sources) Start: 03-12-20 End: 06-10-20 take 1 tablet by mouth three times daily busPIRone (BUSPAR) 10 mg tablet Indications: Generalized anxiety disorder Take 1 tablet by mouth three times daily. 270 tablet 0 03/12/2023 06/10/2023 Active Start: 08-28-2022 End: 01-16-2023 take 1 tablet by mouth three times daily busPIRone (BUSPAR) 10 mg tablet Indications: Generalized anxiety disorder Take 1 tablet by mouth three times daily. 90 tablet 1 11/17/2022 01/16/2023 Active Start: 07-29-2021 End: 11-08-2023 take 1 tablet by mouth twice daily Buspirone 10 mg tablet Discontinued 10 mg PO TWICE A DAY July 29, 2021 12:00am November 08, 2023 12:47pm Comment on above: Take 1 tablet by claudio th twice daily. TAKE 1 TABLET BY CLAUDIO TH TWICE A DAY Take 1 tablet by claudio th three times daily. Source=Surescripts, Medication=BUSPIRONE HCL 10 MG TABLET, OriginatingSource=[employer] OriginatingProvider=JEANETTE MILLER, Duration=30, Refills=1, Date Last Modified/Filled=28-Aug-2022 calcium carbonate 1250 mg / cholecalciferol 200 unt oral tablet (20 sources) Vitamin D Start: 05-19-2025 take 1 tablet by mouth twice daily Calcium Carbonate-Vitamin D3 [Calcium 500 Mg (As Carbonate)-Vitami n D3 5 Mcg (200 Unit) Tablet] (Calcium 500 Mg (As Carbonate)-Vitami n D3 5 Mcg ) 500 mg-5 mcg (200 unit) tablet Active 1 {tbl} PO TWICE A DAY May 19, 2025 12:00am Start: 12-17-2024 take 1 tablet by claudio th twice daily jkpgzfk-kbwqftsth-ayrqgsu D3 500 mg-5 mc g (200 unit) per tablet Take 1 tablet by mouth two times a day. 12/17/2024 Active Start: 04-09-2024 End: 05-25-2024 take 1 tablet by mouth twice daily calcium carbonate-vitamin D3 (Hi-Link Plu s Vit D) 500 mg-5 mcg (200 unit) tablet Indications: Vitamin D deficiency Take 1 tablet by mouth 2 times a day. 180 tablet 3 04/09/2024 05/25/2024 Discontinued (Med List Cleanup) citalopram 40 mg oral tablet (1 source) Serotonin Reuptake Inhibitor Start: 10-07-2018 take 1 dose by mouth once daily citalopram Dose : 40 mg =, Oral, qDay, 0 Refill(s) Start Date: 10/07/18 Status: Ordered COVID-19 antigen test (COVID-19 At-Home Test) kit (2 sources) Start: 12-10-2024 End: 12-17-2024 COVID-19 antigen test (COVID-19 At-Home Test) kit Indications: Acute non-recurrent maxillary sinusitis 1 each 1 time for 1 dose. 2 each 1 12/10/2024 12/17/2024 Discontinued (Therapy completed) Start: 12-10-2024 End: 12-10-2024 COVID-19 antigen test (COVID -19 At-Home Test) kit Indications: Acute non-recurrent maxillary sinusitis 1 each 1 time for 1 dose. 2 each 1 12/10/2024 12/10/2024 Active Dexcom G7 Population Health Coach misc (20 sources) Start: 02-20-2024 End: 12-10-2024 Dexcom G7 Population Health Coach misc Ronel cations: Mixed diabetic hyperlipidemia associated with type 2 diabetes mellitus (Multi) Inject 1 Device under the skin if needed (prn). Use as instructed 1 each 02/20/2024 12/10/2024 Discontinued (Med List Cleanup) Start: 02-20-2024 Dexcom G7 Rece iver misc Indications: Mixed diabetic hyperlipidemia associated with type 2 diabetes mellitus (Multi) Inject 1 Device under the skin if needed (prn). Use as instructed 1 each 02/20/2024 Active Dexcom G7 Sensor device (6 sources) Start: 04-09-2024 End: 05-25-2024 Dexcom G7 Sensor device Ronel cations: Mixed diabetic hyperlipidemia associated with type 2 diabetes mellitus (Multi) Change every 10 days 3 each 04/09/2024 05/25/2024 Discontinued (Med List Cleanup) Start: 04-09-2024 Dexcom G7 Sens or device Indications: Mixed diabetic hyperlipidemia associated with type 2 diabetes mellitus (Multi) Change every 10 days 3 each 04/09/2024 Active Start: 02-20-2024 End: 04-09-2024 Dexcom G7 Sensor device Ronel cations: Mixed diabetic hyperlipidemia associated with type 2 diabetes mellitus (Multi) Change every 10 days 3 each 11 02/20/2024 04/09/2024 Discontinued (Reorder) Start: 02-20-2024 Dexcom G7 Sens or device Indications: Mixed diabetic hyperlipidemia associated with type 2 diabetes mellitus (Multi) Change every 10 days 3 each 11 02/20/2024 Active dicyclomine hydrochloride 10 mg oral capsule (11 sources) Anticholinergic Start: 04-13-2025 dicyclomine (B ENTYL) 10 mg capsule 04/13/2025 Active Start: 04-13-2025 take 1 capsule by mo uth three times daily as needed for pain Dicyclomine 10 mg capsule Active 10 mg PO THREE TIMES A DAY as needed for abdominal pain and cramping 60 1 April 13, 2025 12:00am Start: 04-10-2025 End: 04-11-2025 take 20 mg by mouth once 20 mg, oral, Once, On 01/30 at 2355, For 1 dose Start: 01-06-2019 End: 01-13-2019 Bentyl 20 mg oral tablet Dos e : 20 mg = 1 tab(s), Oral, QID, PRN abdominal discomfort, # 20 tab(s), 0 Refill(s) Start Date: 01/06/19 Stop Date: 01/13/19 Status: Ordered 0.5 ml dulaglutide 1.5 mg/ml auto-injector (20 sources) GLP-1 Receptor Agonist Start: 05-19-2025 Dulaglutide (Dulaglutide 0.75 Mg/0.5 Ml Subcutaneous Pen Injector) 0.75 mg/0.5 mL pen injector Active 0.75 mg SC EVERY WEEK May 19, 2025 12:00am Start: 07-15-2024 End: 02-23-2025 Dulaglutide (Dulaglutide 1.5 Mg/0.5 Ml Subcutaneous Pen Injector) 1.5 mg/0.5 mL pen injector Discontinued 1.5 mg SC EVERY WEEK July 15, 2024 12:00am February 23, 2025 7:10am Start: 05-30-2023 End: 11-29-2023 inject 1.5 mg by subcutaneous injection every week dulaglutide (TRULICITY) 1.5 mg/0.5 mL pen injector Inject 1.5 mg subcutaneously one time a week. 2 mL 3 05/30/2023 11/29/2023 Discontinued Start: 09-02-2021 End: 09-27-2022 inject 1.5 mg by subcutaneous injection every week dulaglutide (TRULICITY) 1.5 mg/0.5 mL pen injector Inject 1.5 mg subcutaneously one time a week. 2 mL 6 09/02/2021 09/27/2022 Discontinued Start: 08-30-2021 End: 04-23-2025 Dulaglutide (Trulicity) 0.75 mg/0.5 mL pen injector Discontinued 0.75 mg SC EVERY WEEK August 30, 2021 1:00am May 25, 2023 2:41pm Comment on above: Inject 1.5 mg subcut aneously one time a week. famotidine 20 mg oral tablet (11 sources) Histamine-2 Receptor Antagonist Start: 12-06-2023 famotidine PF (Pepcid) injection 20 mg Start: 01-06-2019 End: 01-06-2024 famotidine (PEPCID) 20 mg ta blet Take 20 mg by mouth. 01/06/2019 Active fenofibrate 54 mg oral tablet (20 sources) Peroxisome Proliferator Receptor alpha Agonist Start: 04-09-2024 End: 12-17-2024 take 1 tablet by mouth once daily fenofibrate (Tricor) 54 mg tablet Indications: Mixed diabetic hyperlipidemia associated with type 2 diabetes mellitus (Multi) Take 1 tablet (54 mg) by mouth once daily. 90 tablet 2 04/09/2024 12/17/2024 Discontinued (Med List Cleanup) flash glucose scanning reader (FREESTYLE EVERARDO 2 READER) (20 sources) Start: 05-30-2023 End: 05-31-2023 flash glucose scanning reader (FREESTYLE EVERARDO 2 READER) Use to check blood sugar at least four (4) times daily. E11.65 on 4 insulin shots 1 Each 0 05/30/2023 05/31/2023 Active Start: 08-16-2021 End: 05-30-2023 flash glucose scanning reade r (FREESTYLE EVERARDO 2 READER) To use with the freestyle everardo sensor. Uncontrolled type 2 diabetes 1 Each 0 08/16/2021 05/30/2023 Discontinued Start: 08-16-2021 flash glucose scanning reader (FREESTYLE EVERARDO 2 READER) To use with the freestyle everardo sensor. Uncontrolled type 2 diabetes 1 Each 0 08/16/2021 Suspended Start: 08-16-2021 flash glucose scanning reader (FREESTYLE EVERARDO 2 READER) To use with the freestyle everardo sensor. Uncontrolled type 2 diabetes 1 Each 0 08/16/2021 Active Comment on above: To use with the free style everardo sensor. Uncontrolled type 2 diabetes Use to check blood s ugar at least four (4) times daily. E11.65 on 4 insulin shots flash glucose sensor (FREESTYLE EVERARDO 2 SENSOR) kit (20 sources) Start: 05-30-2023 End: 11-29-2023 flash glucose sensor (FREESTYLE EVERARDO 2 SENSOR) kit Apply new sensor every fourteen (14) days to upper arm. E11.65 on 4 insulin shots 6 Each 4 05/30/2023 11/29/2023 Discontinued Start: 05-30-2023 flash glucose sensor (FREESTYLE EVERARDO 2 SENSOR) kit Apply new sensor every fourteen (14) days to upper arm. E11.65 on 4 insulin shots 6 Each 4 05/30/2023 Active Start: 08-16-2021 flash glucose sensor (FREESTYLE EVERARDO 2 SENSOR) kit To check blood sugar 3-4 times a day. Uncontrolled type 2 diabetes 6 Kit 3 08/16/2021 Active Comment on above: To check blood sugar 3-4 times a day. Uncontrolled type 2 diabetes Apply new sensor jose ry fourteen (14) days to upper arm. E11.65 on 4 insulin shots gabapentin 100 mg oral capsule (20 sources) Anti-epileptic Agent Start: End: take 1 capsule by mouth every eight hours as needed for pain Gabapentin 100 mg capsule Active 100 mg PO Q8H as needed for pain February 23, 2025 12:00am Start: 01-19-2025 End: 04-29-2025 take 1 capsule by mouth three times daily as needed for anxiety gabapentin (NEURONTIN) 100 mg capsule Indications: Post-traumatic stress disorder, acute Take 1 capsule by mouth three times a day as needed (for anxiety) for up to 30 days. 90 capsule 03/30/2025 04/29/2025 Active Start: 01-19-2025 End: 02-18-2025 take 1 capsule by mouth every eight hours as needed gabapentin (Neurontin) 100 mg capsule Take 1 capsule (100 mg) by mouth every 8 hours if needed. 01/19/2025 02/18/2025 Active Start: 04-22-2024 End: 12-04-2024 take 1 capsule by mouth three times daily Gabapentin 100 mg capsule Discontinued 100 mg PO THREE TIMES A DAY May 09, 2024 12:00am July 15, 2024 6:56pm Start: 04-22-2024 End: 12-17-2024 take 1 capsule by mouth every eight hours as needed gabapentin (Neurontin) 100 mg capsule Take 1 capsule (100 mg) by mouth every 8 hours if needed. 04/22/2024 12/17/2024 Discontinued (Med List Cleanup) glucagon (rdna) 1 mg injection (1 source) Antihypoglycemic Agent Start: 12-06-2023 glucago n (Glucagen) injection 1 mg 1000 ml glucose 100 mg/ml injection (2 sources) Start: 12-06-2023 dextrose 10 % in water (D10W) infusion Start: 12-06-2023 dextrose 50 % injection 25 g handicap placard (10 sources) Start: 12-18-[address] Active 0 .Route .MEDSUPPLY 1 December 18, 2022 12:00am Debiltiy Debility Expiration: 05/2023 Start: 12-18-[address] Active 0 .Route .MEDSUPPLY 1 December 17, 2022 11:00pm Debility Expiration: 05/2023 Start: 12-18-[address] Active 0 .Route .MEDSUPPLY 1 December 18, 2022 12:00am Debility Expiration: 05/2023 3 ml insulin aspart, human 100 unt/ml pen injector (20 sources) Insulin Analog Start: 03-16-2022 End: 01-09-2023 inject 8 [IU] by subcutaneous injection three times daily before mealtime insulin aspart, niacinamide, (FIASP FLEXTOUCH U-100 INSULIN) 100 unit/mL (3 mL) pen Inject 8 Units subcutaneously three times daily before meals. 3 Each 0 12/10/2022 01/09/2023 Active Start: 02-15-2022 End: 05-30-2023 inject 8 [IU] by subcutaneous injection three times daily before mealtime insulin aspart, niacinamide, (FIASP FLEXTOUCH U-100 INSULIN) 100 unit/mL (3 mL) pen Inject 8 Units subcutaneously three times daily before meals. 5 Pen 0 02/15/2022 Active End: 09-27-2022 FIASP 100 UNIT/ML FLEXTOUCH ; 8 unit(s) injectable 3 times a day (before meals) Quantity: 0 Refills: 0 Ordered: 25-Sep-2022 Dina Aguilera Generic Substitution Allowed Comments: Source=Surescripts, Medication=FIASP 100 UNIT/ML FLEXTOUCH, OriginatingSource=[employer] OriginatingProvider=NILDA LAUREN, Duration=30, Date Last Modified/Filled=11-May-2022 FIASP 100 UNIT/M L FLEXTOUCH ; INJECT 8 UNITS SUBCUTANEOUSLY THREE TIMES DAILY BEFORE MEALS. Quantity: 0 Refills: 0 Ordered: 24-Sep-2022 PaulabasiaCaterina Generic Substitution Allowed Comments: Source=Surescripts, Medication=FIASP 100 UNIT/ML FLEXTOUCH, OriginatingSource=[facility] OriginatingProvider=NILDA LAUREN, Duration=30, Date Last Modified/Filled=11-May-2022 Comment on above: Inject 8 Units subcu taneously three times daily before meals. Source=Surescripts, Medication=FIASP 100 UNIT/ML FLEXTOUCH, OriginatingSource=[facility] OriginatingProvider=NILDA LAUREN, Duration=30, Date Last Modified/Filled=11-May-2022 FIASP 100 UNIT/ML FL EXTOUCH ; 8 unit(s) injectable 3 times a day (before meals) Quantity: 0 Refills: 0 Ordered: 25-Sep-2022 Dina Aguilera Generic Substitution Allowed Comments: Source=Surescripts, Medication=FIASP 100 UNIT/ML FLEXTOUCH, OriginatingSource=[facility] OriginatingProvider=NILDA LAUREN, Duration=30, Date Last Modified/Filled=11-May-2022 insulin lispro 100 unt/ml injectable solution (1 source) Insulin Analog Start: 4 insulin lispro (HumaLOG) injection 0-5 Units linaclotide 0.145 mg oral capsule (20 sources) Guanylate Cyclase-C Agonist Start: 0 take 1 capsule by mouth once daily, then take 6 capsules by mouth in the morning Linzess 145 mcg oral capsule TAKE 1 CAPSULE BY MOUTH DAILY (6 AM). Start Date: 04/19/20 Status: Ordered Start: 01-27-2020 linaclotide (L INZESS) 145 mcg capsule Take by mouth. 01/27/2020 Active Comment on above: Take by mouth. metoclopramide 10 mg oral tablet (7 sources) Dopamine-2 Receptor Antagonist Start: 12-07-19 take 1 tablet by mouth four times daily as needed for nausea metoclopramide (Reglan) 10 mg tablet Indications: SBO (small bowel obstruction) (Multi) Take 1 tablet (10 mg) by mouth 4 times a day as needed (nausea). 15 tablet 12/07/2023 Active Start: 12-07-2023 take 10 mg intraveno usly every six hours as needed metoclopramide (Reglan) injection 10 mg 24 hr metoprolol succinate 50 mg extended release oral tablet (20 sources) beta-Adrenergic Carlos Start: 04-23-2025 End: 04-23-2026 take 1 tablet by mouth once daily metoprolol succinate XL (Toprol XL) 50 mg 24 hr tablet Indications: Hypertension associated with type 2 diabetes mellitus Take 1 tablet (50 mg) by mouth once daily. Do not crush or chew. 90 tablet 3 04/23/2025 04/23/2026 Active Start: 02-23-2025 Metoprolol Suc cinate 25 mg tablet extended release 24 hr Active 50 mg PO daily February 23, 2025 12:00am Start: 02-16-2025 End: 02-16-2026 take 1 tablet by mouth once daily Metoprolol Succinate 25 mg tablet extended release 24 hr Active 25 mg PO daily February 23, 2025 12:00am Start: 02-16-2025 End: 02-16-2026 take 1 tablet by mouth every twenty-four hours metoprolol succinate ER (TOPROL XL) 25 mg 24 hr tablet Take 25 mg by mouth. 02/16/2025 02/16/2026 Active Start: 01-14-2025 End: 02-16-2025 take 0.5 tablet by mouth twice daily metoprolol tartrate (Lopressor) 25 mg tablet Indications: Tachycardia , Hypertension associated with type 2 diabetes mellitus Take 0.5 tablets (12.5 mg) by mouth 2 times a day. 30 tablet 1 01/14/2025 02/16/2025 Discontinued (Side effects) mirtazapine 30 mg oral tablet (20 sources) Start: 08-14-2024 End: 06-28-2025 take 1 tablet by mouth once daily at bedtime mirtazapine (REMERON) 30 mg tablet Indications: Current severe 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 (HCC) , Generalized anxiety disorder Take 1 tablet by mouth daily at bedtime. 90 tablet 03/30/2025 06/28/2025 Active Start: 12-28-2023 End: 08-14-2024 take 1 tablet by mouth at bedtime Mirtazapine 15 mg tablet Active 15 mg PO AT BEDTIME May 09, 2024 12:00am Comment on above: Take 1 tablet by claudio th daily at bedtime. Miscellaneous Medical Supply (Blood Pressure Cuff) misc (10 sources) Start: 12-18-2022 Miscellaneous Medical Supply (Blood Pressure Cuff) misc Active 0 .Route 1 0 December 18, 2022 12:00am As directed Start: 12-18-2022 Miscellaneous Medical Supply (Blood Pressure Cuff) misc Active 0 .Route 1 December 17, 2022 11:00pm As directed Start: 12-18-2022 Miscellaneous Medical Supply (Blood Pressure Cuff) misc Active 0 .Route 1 December 18, 2022 12:00am As directed 1 ml morphine sulfate 2 mg/ml prefilled syringe (1 source) Opioid Agonist Start: 12-06-2023 morphine injec tion 2 mg nitrofurantoin, macrocrystals 25 mg / nitrofurantoin, monohydrate 75 mg oral capsule (4 sources) Nitrofuran Antibacterial Start: 12-23-2023 nitrofurantoin (macrocrystal-monohydr ate) (Macrobid) capsule 100 mg Start: 12-23-2023 End: 12-28-2023 take 1 capsule by mouth twice daily nitrofurantoin, macrocrystal-monohydrate , (Macrobid) 100 mg capsule Indications: Urinary tract infection without hematuria, site unspecified Take 1 capsule (100 mg) by mouth 2 times a day for 5 days. 10 capsule 0 12/23/2023 12/28/2023 Active ondansetron ODT (Zofran-ODT) disintegrating tablet 4 mg (1 source) Start: 12-06-2023 take 1 tablet by mouth every eight hours as needed ondansetron ODT (Zofran-ODT) disintegrating tablet 4 mg pantoprazole 20 mg delayed release oral tablet (20 sources) Proton Pump Inhibitor Start: 01-27-2025 End: 05-01-2025 take 1 tablet by mouth once daily Pantoprazole 20 mg tablet,delayed release (DR/EC) Active 20 mg PO daily February 23, 2025 12:00am Start: 01-27-2025 40 mg, intrave nous, Once, On Sun01/27/25 at 0230, For 1 dose, Reconstitute each 40 mg vial with 10 mL NS to make 4 mg/mL solution. Start: 12-06-2023 End: 12-06-2023 pantoprazole (ProtoNix) inje ction - Omnicell Override Pull Start: 12-06-2023 End: 12-06-2023 pantoprazole (ProtoNix) inje ction 40 mg penicillin v potassium 500 mg oral tablet (1 source) Start: 01-10-2024 End: 01-17-2024 take 1 tablet by mouth four times daily penicillin v potassium (Veetid) 500 mg tablet Indications: Pain, dental Take 1 tablet (500 mg) by mouth 4 times a day for 7 days. 28 tablet 0 01/10/2024 01/17/2024 Active polyethylene glycol 3350 93479 mg powder for oral solution (1 source) Osmotic Laxative Start: 12-06-2023 polyethylene glycol (Glycolax, Miralax) packet 17 g polyethylene glycol 3350 472561 mg / potassium chloride 2970 mg / sodium bicarbonate 6740 mg / sodium chloride 5860 mg / sodium sulfate 80694 mg powder for oral solution (2 sources) Osmotic Laxative Start: 04-28-2025 Peg 3350-Electrolytes (Golytely) 236-22.74-6.74 -5.86 gram recon soln Active 240 mL PO Q10M 4000 0 April 28, 2025 12:00am until fecal effluent is clear simethicone 80 mg chewable tablet (1 source) Start: 12-06-2023 simethicone (Mylicon) chewable tablet 80 mg traZODone hydrochloride 100 mg oral tablet (20 sources) Serotonin Reuptake Inhibitor Start: 05-22-2024 End: 08-01-2025 take 1 tablet by mouth at bedtime as needed Trazodone 100 mg tablet Active 100 mg PO AT BEDTIME NEEDED February 23, 2025 7:09am insomnia Start: 05-09-2024 End: 02-23-2025 Trazodone 100 mg tablet Disc ontinued 150 mg PO AT BEDTIME NEEDED May 09, 2024 12:00am February 23, 2025 7:10am insomnia Start: 11-29-2023 End: 02-13-2024 take 1-2 tablets by mouth once daily at bedtime as needed for sleep traZODone (DESYREL) 100 mg tablet Indications: Current severe 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 (HCC) Take 1-2 tablets by mouth once daily at bedtime as needed for sleep 180 tablet 0 11/29/2023 12/28/2023 Discontinued (Changing Therapy/Dosage Form) Start: 01-23-2023 End: 11-29-2023 take 0.5-1 tablets by mouth at bedtime as needed traZODone (DESYREL) 50 mg tablet Indications: Current severe 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 (HCC) Take 0.5-1 tablets by mouth at bedtime as needed. 90 tablet 0 11/09/2023 11/29/2023 Discontinued Start: 09-26-2022 End: 12-04-2022 take 0.5-1 tablets by mouth at bedtime as needed for sleep traZODone (DESYREL) 50 mg tablet Indications: Current severe 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 (HCC) TAKE 1/2 TO 1 TABLET BY MOUTH AT BEDTIME NEEDED FOR SLEEP 90 tablet 0 12/04/2022 Active Start: 08-13-2019 End: 07-29-2021 take 1 tablet by mouth at bedtime Trazodone 150 MG tablet Discontinued 150 mg PO AT BEDTIME August 13, 2019 1:00am July 29, 2021 11:24am sleep Comment on above: Take 1/2-1 tablet by mouth at bedtime as needed for sleep TAKE 1/2 TO 1 TABLET BY MOUTH AT BEDTIME NEEDED FOR SLEEP Take 0.5-1 tablets b y mouth at bedtime as needed. Take 1-2 tablets by mouth once daily at bedtime as needed for sleep 24 hr venlafaxine 150 mg extended release oral capsule (20 sources) Serotonin and Norepinephrine Reuptake Inhibitor Start: 11-09-19 End: 08-01-20 take 1 capsule by mouth once daily Venlafaxine 150 mg capsule,extended release 24hr Active 150 mg PO DAILY May 09, 2024 12:00am Start: 07-27-2023 End: 08-01-2025 take 1 capsule by mouth once daily Venlafaxine 37.5 mg capsule,extended release 24hr Active 37.5 mg PO DAILY May 09, 2024 12:00am Start: 07-27-2023 End: 05-09-2024 take 1 capsule by mouth once daily Venlafaxine 75 mg capsule,extended release 24hr Discontinued 75 mg PO DAILY November 08, 2023 1:00am May 09, 2024 2:45pm Comment on above: Take 1 capsule by [facility] once daily. After finishing 1 week of 37.5 mg daily Take 1 capsule by [facility] once daily. Completed/Discontinued Medications Medication Drug Class(es) Dates Sig (Normalized) Sig (Original) acetaminophen 325 mg / HYDROcodone bitartrate 5 mg oral tablet (20 sources) Opioid Agonist Start: 07-17-2024 End: 07-24-2024 take 1 tablet by mouth every six hours for pain HYDROcodone-aceta minophen ([place]) 5-325 mg tablet Indications: Rotator cuff tendonitis, right Take 1 tablet by mouth every 6 hours if needed for severe pain (7 - 10) for up to 7 days. 12 tablet 07/17/2024 07/24/2024 Start: 07-15-2024 End: 05-19-2025 Hydrocodone-Acetaminophen 5- 325 mg tablet Discontinued 1 {tbl} PO EVERY 4 HOURS NEEDED as needed for Pain 15 2 0 July 15, 2024 May 19, 2025 9:54am Acute pain of right shoulder Pain in right shoulder Start: 02-12-2021 End: 02-14-2021 take 1 tablet by mouth every six hours as needed for pain [place] 325- 5 mg oral tablet Dose = 1 tab(s), Oral, q6h, PRN as needed for pain, # 10 tab(s), 0 Refill(s), Sinusitis, 86.4 Start Date: 02/12/21 Stop Date: 02/14/21 Status: Ordered Start: 08-14-2019 End: 08-17-2019 Hydrocodone-Acetaminophen 1 EACH tablet Discontinued 1 NMA PO EVERY 6 HOURS NEEDED as needed for SEVERE PAIN 6 2 0 August 14, 2019 August 15, 2019 1:00am August 17, 2019 1:11am Postoperative pain Other acute postprocedural pain Start: 08-14-2019 End: 08-17-2019 Hydrocodone-Acetaminophen Di scontinued 1 EACH PO EVERY 6 HOURS NEEDED 6 2 August 14, 2019 August 17, 2019 12:11am albuterol 0.833 mg/ml / ipratropium bromide 0.167 mg/ml inhalation solution (2 sources) Anticholinergic, beta2-Adrenergic Agonist Start: 04-06-2024 End: 04-06-2024 Starting on 04/06/24 at 1805, For 1 dose, Created by cabinet override Start: 04-06-2024 End: 04-06-2024 3 mL, nebulization, Once, On 04/06/24 at 1805, For 1 dose aluminum hydroxide 40 mg/ml / magnesium hydroxide 40 mg/ml / simethicone 4 mg/ml oral suspension (1 source) Start: 04-19-2024 End: 04-19-2024 take 30 mL by mouth once 30 mL, oral, Once, On 04/19/24 at 1500, For 1 dose atropine sulfate 0.025 mg / diphenoxylate hydrochloride 2.5 mg oral tablet (1 source) Anticholinergic, Cholinergic Muscarinic Antagonist, Antidiarrheal Start: 01-13-2021 End: 01-15-2021 Lomotil 2.5 mg-0.025 mg oral tablet Dose : 5 mg = 2 tab(s), Oral, QID, PRN as needed for loose stool, # 12 tab(s), 0 Refill(s), Gastroenteritis, 86.4 Start Date: 01/13/21 Stop Date: 01/15/21 Status: Ordered benzocaine 140 mg/ml / butamben 20 mg/ml / tetracaine 20 mg/ml mucosal spray (1 source) Stephanie Local Anesthetic, Standardized Chemical Allergen Start: 01-10-2024 End: 01-10-2024 butamben-tetracain e-benzocaine (Cetacaine) spray 1 spray Blood Pressure Test Kit-Large (20 sources) Start: 11-02-2020 End: 09-27-2022 Blood Pressure Test Kit-Large Indications: Hypertension, essential Check blood pressure weekly and as needed. 1 Each 11/02/2020 09/27/2022 Discontinued Start: 11-02-2020 End: 09-27-2022 Blood Pressure Test Kit-Larg e Indications: Hypertension, essential Check blood pressure weekly and as needed. 1 Each 0 11/02/2020 09/27/2022 Discontinued Start: 11-02-2020 Blood Pressure Test Kit-Large Indications: Hypertension, essential Check blood pressure weekly and as needed. 1 Each 0 11/02/2020 Suspended Start: 11-02-2020 Blood Pressure Test Kit-Large Indications: Hypertension, essential Check blood pressure weekly and as needed. 1 Each 0 11/02/2020 Active Comment on above: Check blood pressure weekly and as needed. Blood-Glucose Meter,Continuous (DEXCOM G6 CHOCOLATIER) misc (16 sources) Start: 05-30-2023 End: 01-30-2024 Blood-Glucose Meter,Continuous (DEXCOM G6 CHOCOLATIER) misc Use to monitor glucose 3 times daily and continuously. 1 Each 0 05/30/2023 01/30/2024 Discontinued Start: 05-30-2023 Blood-Glucose Meter,Continuous (DEXCOM G6 CHOCOLATIER) misc Use to monitor glucose 3 times daily and continuously. 1 Each 0 05/30/2023 Active Comment on above: Use to monitor gluco se 3 times daily and continuously. Blood-Glucose Transmitter (DEXCOM G6 TRANSMITTER) myah (16 sources) Start: 05-30-2023 End: 01-30-2024 Blood-Glucose Transmitter (DEXCOM G6 TRANSMITTER) myah Use to monitor glucose 3 times daily and continuously. Change every 90 days. 1 Each 3 05/30/2023 01/30/2024 Discontinued Start: 05-30-2023 Blood-Glucose Transmitter (DEXCOM G6 TRANSMITTER) myah Use to monitor glucose 3 times daily and continuously. Change every 90 days. 1 Each 3 05/30/2023 Active Comment on above: Use to monitor gluco se 3 times daily and continuously. Change every 90 days. brexpiprazole 1 mg oral tablet (20 sources) Atypical Antipsychotic Start: 12-16-19 End: 07-27-20 take 1.5 tablets by mouth once daily brexpiprazole (REXULTI) 1 mg tablet Indications: Current severe 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 (HCC) Take 1.5 tablets by mouth once daily. 135 tablet 0 12/15/2022 07/27/2023 Discontinued Start: 12-21-2021 End: 09-26-2022 take 1.5 tablets by mouth once daily brexpiprazole (REXULTI) 1 mg tablet Indications: Current severe 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 (HCC) Take 1.5 tablets by mouth once daily. 135 tablet 0 09/26/2022 Active Start: 01-13-2021 End: 11-08-2023 take 1 tablet by mouth once daily Brexpiprazole (Rexulti) 1 mg tablet Discontinued 1.5 mg PO DAILY July 29, 2021 12:00am November 08, 2023 12:47pm Start: 12-13-2020 End: 01-26-2021 take 1.5 tablets by mouth once daily brexpiprazole (REXULTI) 1 mg tablet Indications: Current severe 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 (HCC) Take 1.5 tablets by mouth once daily. 135 tablet 12/13/2020 01/26/2021 Discontinued Comment on above: Take 1.5 tablets by mouth once daily. Source=[employer], Medication=REXULTI 1 MG TABLET, OriginatingSource=[employer], [employer], OriginatingProvider=JEANETTE MILLER, Duration=90, Date Last Modified/Filled=29-Aug-2022 cefTRIAXone 1000 mg injection (3 sources) Cephalosporin Antibacterial Start: 07-11-20 23 End: 07-11-20 23 cefTRIAXone (Rocephin) IVPB 1 g cephalexin 500 mg oral capsule (9 sources) Cephalosporin Antibacterial Start: 05-12-20 24 End: 07-15-20 24 take 1 capsule by mouth three times daily Cephalexin 500 mg capsule Discontinued 500 mg PO THREE TIMES A DAY 9 3 0 May 12, 2024 12:00am July 15, 2024 6:55pm Start: 07-11-2023 End: 07-18-2023 take 1 capsule by mouth four times daily cephalexin (Keflex) 500 mg capsule Indications: UTI (urinary tract infection), uncomplicated Take 1 capsule (500 mg) by mouth 4 times a day for 7 days. 28 capsule 0 07/11/2023 07/18/2023 cloNIDine hydrochloride 0.2 mg oral tablet (13 sources) Central alpha-2 Adrenergic Agonist Start: 12-13-2020 End: 08-02-2021 take 1 tablet by mouth once daily Clonidine Hcl 0.2 mg tablet Discontinued 0.2 mg PO DAILY July 29, 2021 12:00am August 02, 2021 9:40am cyclobenzaprine hydrochloride 10 mg oral tablet (20 sources) Muscle Relaxant Start: 07-04-2022 End: 04-16-2025 take 1 tablet by mouth three times daily as needed for muscle spasms cyclobenzaprine (FLEXERIL) 10 mg tablet Indications: Muscle tightness Take 1 tablet by mouth three times daily as needed for muscle spasm. 30 tablet 1 07/04/2022 04/16/2025 Discontinued (Other) Comment on above: Take 1 tablet by [facility] three times daily as needed for muscle spasm. diazePAM 5 mg oral tablet (11 sources) Benzodiazepine Start: 02-22-2021 End: 07-29-2021 take 1 tablet by mouth three times daily as needed for muscle spasms Diazepam (Valium) 5 mg tablet Discontinued 5 mg PO THREE TIMES A DAY as needed for muscle spasm 15 February 22, 2021 12:00am July 29, 2021 11:24am diphenhydrAMINE (2 sources) Histamine-1 Receptor Antagonist Start: 04-06-2024 End: 04-06-2024 25 mg, intravenous, Once, On 04/06/24 at 1455, For 1 dose, If giving IV push, max rate of 25 mg/min. Start: 02-11-2020 take 3 tablets by [facility] at bedtime diphenhydrAMINE HCl - 25 MG Oral Tablet TAKE 3 TABLET AT BEDTIME. Refills: 0 Jenny JORDAN, Venkat Start : 11-Feb-2020 Active empagliflozin 10 mg oral tablet (20 sources) Sodium-Glucose Cotransporter 2 Inhibitor Start: 02-20-2024 End: 04-23-2025 take 1 tablet by mouth once daily Empagliflozin (Jardiance) 10 mg tablet Discontinued 10 mg PO DAILY May 09, 2024 12:00am April 13, 2025 1:42pm erythromycin 0.005 mg/mg ophthalmic ointment (1 source) Macrolide, Macrolide Antimicrobial Start: 10-22-2020 End: 07-25-2021 erythromycin ophthalmic ointment Use 1 application in the left eye three times daily. 3.5 g 10/22/2020 07/25/2021 Discontinued (Course of therapy completed) escitalopram 20 mg oral tablet (13 sources) Serotonin Reuptake Inhibitor Start: 01-31-2019 End: 07-29-2021 take 1 tablet by mouth once daily Escitalopram Oxalate 20 MG tablet Discontinued 20 mg PO DAILY January 31, 2019 12:00am July 29, 2021 11:24am depression 1 ml fentaNYL 0.05 mg/ml injection (2 sources) Opioid Agonist Start: 12-06-2023 End: 12-06-2023 fentaNYL PF (Sublimaze) injection - Omnicell Override Pull Start: 12-06-2023 End: 12-06-2023 fentaNYL PF (Sublimaze) inje ction 50 mcg fludrocortisone acetate 0.1 mg oral tablet (20 sources) Start: 08-31-2021 End: 09-26-2022 take 1 tablet by mouth once daily Fludrocortisone 0.1 mg tablet Discontinued 0.1 mg PO DAILY 90 3 November 30, 2021 2:25pm September 26, 2022 5:55pm Comment on above: Source=[employer], Medication=FLUDROCORTISONE 0.1 MG TABLET, OriginatingSource=[employer], [employer] [facility], OriginatingProvider=PREET MCKEON, Duration=90, Refills=1, Date Last Modified/Filled=29-Jun-2022 Take 0.1 mg by mouth once daily. hydroCHLOROthiazide 25 mg oral tablet (19 sources) Thiazide Diuretic Start: 04-19-2020 End: 02-20-2022 take 1 tablet by mouth once daily Hydrochlorothiazide 25 mg tablet Discontinued 25 mg PO DAILY July 29, 2021 12:00am August 02, 2021 9:07am Start: 01-27-2020 hydroCHLOROthi azide 25 MG Oral Tablet Quantity: 30 Refills: 0 Start : 27-Jan-2020 Active Comment on above: TAKE 1 TABLET BY CLAUDIO TH EVERY DAY hydrocortisone 25 mg/ml rectal cream (1 source) Corticosteroid Start: 02-09-2020 Hydrocortisone (Perianal) 2.5 % External Cream Quantity: 30 Refills: 0 Start : 09-Feb-2020 Active hydrOXYzine hydrochloride 25 mg oral tablet (20 sources) Antihistamine Start: 11-17-2022 End: 07-27-2023 hydrOXYzine HCl (ATARAX) 25 mg tablet Indications: Generalized anxiety disorder TAKE 1 TABLET BY MOUTH THREE TIMES DAILY NEEDED FOR ANXIETY. MAY TAKE 1/2 TABLET 90 tablet 1 01/02/2023 07/27/2023 Discontinued Start: 09-19-2022 End: 09-26-2022 hydrOXYzine HCl (ATARAX) 25 mg tablet Indications: Generalized anxiety disorder Take 1 tablet by mouth three times daily as needed for anxiety. May take 1/2 tablet 90 tablet 1 09/26/2022 Active Start: 05-01-2021 End: 08-28-2022 take 1 tablet by mouth three times daily as needed Hydroxyzine Hcl 25 mg tablet Discontinued 25 mg PO THREE TIMES A DAY as needed July 29, 2021 12:00am August 02, 2021 9:41am Comment on above: Take 1 tablet by claudio th three times daily as needed for anxiety. May take 1/2 tablet Source=[employer], Medication=HYDROXYZINE HCL 25 MG TABLET, OriginatingSource=[employer], [employer], OriginatingProvider=JEANETTE MILLER, Duration=30, Refills=1, Date Last Modified/Filled=28-Aug-2022 ibuprofen 800 mg oral tablet (1 source) Nonsteroidal Anti-inflammatory Drug Start: 4 End: 4 take 800 mg by mouth once at mealtime as needed for pain 800 mg, oral, Once, On Sun07/09/24 at 1135, For 1 dose, May administer with food to reduce GI upset., If ordered PRN for pain, nurse is permitted to administer this medication for higher pain scores based on patient preference? Yes 3 ml insulin glargine 100 unt/ml pen injector (20 sources) Insulin Analog Start: 3 End: 4 insulin glargine (BASAGLAR KWIKPEN U-100 INSULIN) 100 unit/mL (3 mL) Indications: Type 2 diabetes mellitus without complication, with long-term current use of insulin (HCC) Inject 25 Units subcutaneously daily at bedtime. 8 Each 0 02/19/2023 01/30/2024 Discontinued Start: 02-19-2023 insulin glargi ne (BASAGLAR KWIKPEN U-100 INSULIN) 100 unit/mL (3 mL) Indications: Type 2 diabetes mellitus without complication, with long-term current use of insulin ([facility]) Inject 25 Units subcutaneously daily at bedtime. 8 Each 0 02/19/2023 Active Start: 12-10-2022 End: 02-19-2023 insulin glargine (BASAGLAR K WIKPEN U-100 INSULIN) 100 unit/mL (3 mL) Indications: Type 2 diabetes mellitus without complication, with long-term current use of insulin ([facility]) Inject 20 Units subcutaneously daily at bedtime. 6 Each 0 02/16/2023 02/19/2023 Discontinued Start: 10-04-2021 insulin glargi ne (BASAGLAR KWIKPEN U-100 INSULIN) 100 unit/mL (3 mL) Inject 20 units SQ daily at bedtime. 15 mL 3 10/04/2021 Active BASAGLAR 100 UNI T/ML KWIKPEN ; 10 unit(s) subcutaneous once a day (at bedtime) Quantity: 0 Refills: 3 Ordered: 25-Sep-2022 Dina Aguilera Generic Substitution Allowed Comments: Source=[employer], Medication=BASAGLAR 100 UNIT/ML KWIKPEN, OriginatingSource=[facility] OriginatingProvider=SHARON FOSTER, Duration=90, Refills=3, Date Last Modified/Filled=19-Feb-2022 BASAGLAR 100 UNI T/ML KWIKPEN ; 10 unit(s) subcutaneous once a day (at bedtime) Quantity: 0 Refills: 3 Ordered: 25-Sep-2022 Dina Aguilera Generic Substitution Allowed Comments: Source=[employer], Medication=BASAGLAR 100 UNIT/ML KWIKPEN, OriginatingSource=[facility] OriginatingProvider=SHARON FOSTER, Duration=90, Refills=3, Date Last Modified/Filled=19-Feb-2022 Comment on above: Inject 20 units SQ d aily at bedtime. Source=[employer], Medication=BASAGLAR 100 UNIT/ML KWIKPEN, OriginatingSource=[facility] OriginatingProvider=SHARON FOSTER, Duration=90, Refills=3, Date Last Modified/Filled=19-Feb-2022 Inject 20 Units subc utaneously daily at bedtime. Inject 25 Units subc utaneously daily at bedtime. iohexol (OMNIPaque) 350 mg iodine/mL solution 68 mL (2 sources) Start: 04-11-2025 End: 04-11-2025 68 mL, intravenous, Once in imaging, Starting on 04/11/25 at 0022, For 1 dose Start: 12-06-2023 End: 12-06-2023 iohexol (OMNIPaque) 350 mg i odine/mL solution 68 mL iohexol (OMNIPaque) 350 mg iodine/mL solution 69 mL (1 source) Start: 04-06-2024 End: 04-06-2024 69 mL, intravenous, Once in imaging, Starting on 04/06/24 at 1458, For 1 dose ketorolac tromethamine 10 mg oral tablet (18 sources) Nonsteroidal Anti-inflammatory Drug, Cyclooxygenase Inhibitor Start: 04-11-2025 End: 04-23-2025 take 1 tablet by mouth every six hours for pain ketorolac (Toradol) 10 mg tablet Indications: Pain of upper abdomen Take 1 tablet (10 mg) by mouth every 6 hours if needed for moderate pain (4 - 6) for up to 5 days. 20 tablet 04/11/2025 04/23/2025 Discontinued (Med List Cleanup) Start: 04-11-2025 End: 04-11-2025 15 mg, intravenous, Once, On 04/11/25 at 0120, For 1 dose Start: 04-01-2025 End: 04-01-2025 15 mg, intravenous, Once, On 04/01/25 at 1230, For 1 dose Start: 07-11-2024 End: 02-23-2025 take 1 tablet by mouth three times daily Ketorolac 10 mg tablet Discontinued 10 mg PO THREE TIMES A DAY July 15, 2024 12:00am February 23, 2025 7:09am Start: 07-06-2024 End: 07-06-2024 inject 30 mg by intramuscular injection once 30 mg, intramuscular, Once, On 07/06/24 at 2120, For 1 dose Start: 12-06-2023 End: 03-05-2024 ketorolac (Toradol) injectio n 30 mg lactulose 667 mg/ml oral solution (1 source) Osmotic Laxative Start: 12-07-2023 End: 12-07-2023 lactulose 20 gram/30 mL oral solution 20 g lidocaine hydrochloride 20 mg/ml mucous membrane topical solution (2 sources) Antiarrhythmic, Amide Local Anesthetic Start: 04-19-2024 End: 04-19-2024 take 15 mL by mouth once 15 mL, oral, Once, On 04/19/24 at 1500, For 1 dose Start: 01-10-2024 End: 01-10-2024 lidocaine (Xylocaine) 2 % mo [facility] solution 1.25 mL lisinopril 40 mg oral tablet (20 sources) Angiotensin Converting Enzyme Inhibitor Start: 05-12-2024 End: 01-14-2025 take 1 tablet by mouth once daily Lisinopril 10 mg tablet Active 10 mg PO DAILY 30 30 May 12, 2024 12:00am On Hold: RAN OUT OF Start: 12-06-2023 take 20 mg by mouth once daily 20 mg, oral, Daily, First dose on Ashlee 12/06/23 at 1000 Start: 11-09-2023 End: 05-09-2024 take 2 tablets by mouth once daily Lisinopril 10 mg tablet Discontinued 20 mg PO DAILY 60 November 09, 2023 12:52pm May 09, 2024 2:45pm Start: 11-07-2023 End: 11-09-2023 take 1 tablet by mouth once daily Lisinopril 10 mg tablet Discontinued 10 mg PO DAILY 30 November 07, 2023 1:00am November 09, 2023 12:45pm Start: 01-02-2023 End: 11-08-2023 take 1 tablet by mouth once daily Lisinopril 5 mg tablet Discontinued 5 mg PO DAILY January 02, 2023 12:00am November 08, 2023 12:39pm Start: 01-27-2020 End: 02-23-2025 take 1 tablet by mouth once daily Lisinopril 40 mg tablet Discontinued 40 mg PO DAILY July 15, 2024 12:00am February 23, 2025 7:09am Start: 11-03-2019 [facility] l[facility] 20 mg oral tablet TAKE 1 TABLET BY MOUTH EVERY DAY Start Date: 11/03/19 Status: Ordered Start: 12-28-2018 End: 07-29-2021 take 2 tablets by mouth at bedtime Lisinopril (Prinivil) 10 MG tablet Discontinued 20 mg PO AT BEDTIME December 28, 2018 12:00am July 29, 2021 11:22am blood pressure Comment on above: TAKE 1 TABLET BY CLAUDIO TH EVERY DAY Take 1 tablet by claudio th once daily. Source=[employer], Medication=LISINOPRIL 40 MG TABLET, OriginatingSource=[employer], OriginatingProvider=KAROLYN PALMA, Duration=90, Refills=2, Date Last Modified/Filled=29-Aug-2022 LORazepam 1 mg oral tablet (6 sources) Benzodiazepine Start: 04-19-2024 End: 04-19-2024 take 1 mg by mouth once 1 mg, oral, Once, On 04/19/24 at 1500, For 1 dose Start: 01-23-2023 End: 01-28-2023 LORazepam (ATIVAN) 0.5 mg Indications: Situational anxiety TAKE 1 TABLET TWICE A DAY NEEDED FOR ANXIETY FOR UP TO FIVE DAYS 5 tablet 0 01/23/2023 01/28/2023 Active Start: 12-15-2022 End: 12-20-2022 LORazepam (ATIVAN) 0.5 mg Indications: Situational anxiety TAKE 1 TABLET TWICE A DAY NEEDED FOR ANXIETY FOR UP TO FIVE DAYS 5 tablet 0 12/15/2022 12/20/2022 Active Start: 04-19-2020 take 1 tablet by claudio th once daily as needed for anxiety LORazepam 0.5 mg oral tablet TAKE 1 TABLET 2X DAILY NEEDED FOR ANXIETY FOR UP TO 5 DAYS Start Date: 04/19/20 Status: Ordered Comment on above: TAKE 1 TABLET TWICE A DAY NEEDED FOR ANXIETY FOR UP TO FIVE DAYS magnesium citrate 58.2 mg/ml oral solution (1 source) Start: 2024 End: 2024 take 296 mL by mouth once 296 mL, oral, Once, On Sun01/27/25 at 0330, For 1 dose medroxyPROGESTERone acetate 10 mg oral tablet (20 sources) Progestin Start: 2020 End: 2022 take 1 tablet by mouth once as needed Medroxyprogesterone 10 mg tablet Discontinued 10 mg PO ONCE as needed July 29, 2021 12:00am May 25, 2023 2:41pm Comment on above: Take 1 tablet by claudio as directed. for 7 days a month 24 hr metFORMIN hydrochloride 500 mg extended release oral tablet (20 sources) Biguanide Start: 2020 End: 2020 Metformin 500 mg tablet extended release 24 hr Discontinued 1000 mg PO TWICE A DAY July 29, 2021 12:00am August 30, 2021 10:02am Start: 07-29-2021 End: 08-30-2021 take 1000 mg by mouth twice daily Metformin Discontinued 1000 MG PO TWICE A DAY July 28, 2021 11:00pm August 30, 2021 9:02am Start: 08-20-2019 End: 04-04-2021 take 1 tablet by mouth once daily at breakfast metFORMIN (GLUCOPHAGE) 500 mg tablet Indications: Hyperglycemia Take 1 tablet by mouth daily with breakfast. 30 tablet 11 10/02/2020 04/04/2021 Discontinued Start: 08-13-2019 End: 07-29-2021 take 1 tablet by mouth twice daily Metformin 500 MG tablet Discontinued 500 mg PO TWICE A DAY August 13, 2019 1:00am July 29, 2021 11:23am diabetes methylPREDNISolone 125 mg injection (1 source) Corticosteroid Start: 04-06-2024 End: 04-06-2024 125 mg, intravenous, Once, On 04/06/24 at 1455, For 1 dose midodrine hydrochloride 2.5 mg oral tablet (20 sources) alpha-Adrenergic Agonist Start: 12-11-2022 End: 11-08-2023 take 1 tablet by mouth three times daily Midodrine 2.5 mg tablet Discontinued 2.5 mg PO THREE TIMES A DAY 90 January 29, 2023 10:03am November 08, 2023 12:42pm this is a dose increase Start: 12-04-2022 End: 12-11-2022 take 1 tablet by mouth twice daily Midodrine 2.5 mg tablet Discontinued 2.5 mg PO TWICE A DAY 60 December 04, 2022 1:00am December 04, 2022 2:28pm Start: 09-14-2021 take 1 tablet by claudio three times daily midodrine (PROAMITINE) 5 mg tablet Take 1 tablet by mouth three times daily. 0 09/14/2021 Active Start: 08-30-2021 End: 08-31-2021 take 1 tablet by mouth once daily at bedtime Midodrine 5 mg tablet Discontinued 5 mg PO THREE TIMES A DAY 180 2 August 30, 2021 1:00am August 31, 2021 6:00pm do not give last dose of day after 6PM or within 4 hrs of bedtime Comment on above: Take 1 tablet by claudio three times daily. naproxen 500 mg oral tablet (20 sources) Nonsteroidal Anti-inflammatory Drug Start: End: take 1 tablet by mouth twice daily Naproxen 500 mg tablet Discontinued 500 mg PO TWICE A DAY July 15, 2024 12:00am February 23, 2025 7:09am Start: 06-28-2022 End: 10-20-2022 take 1 tablet by mouth twice daily as needed for pain Naproxen Sodium 550 mg tablet TAKE 1 TABLET BY MOUTH TWICE A DAY NEEDED FOR PAIN 0 06/28/2022 10/20/2022 Discontinued Start: 02-19-2019 End: 08-14-2019 take 1 tablet by mouth twice daily as needed Naproxen 500 MG tablet Discontinued 500 mg PO TWICE DAILY NEEDED February 19, 2019 12:00am August 14, 2019 11:33am Comment on above: TAKE 1 TABLET BY [facility] TWICE A DAY NEEDED FOR PAIN 2 ml ondansetron 2 mg/ml injection (11 sources) Serotonin-3 Receptor Antagonist Start: 04-10-2025 End: 04-10-2025 4 mg, intravenous, Once, On Sun04/10/25 at 2350, For 1 dose, When administering via IV Push, administer over 3-5 minutes. Start: 04-01-2025 End: 04-04-2025 take 1 tablet by mouth every six hours ondansetron (ZOFRAN) 4 mg tablet TAKE 1 TABLET (4 MG) BY MOUTH EVERY 6 HOURS FOR 3 DAYS. 04/01/2025 Active Start: 04-01-2025 take 2 tablets by mo [facility] every eight hours as needed ondansetron (Zofran) 4 mg tablet Take 2 tablets (8 mg) by mouth every 8 hours if needed for nausea. 04/01/2025 Active Start: 04-01-2025 End: 04-01-2025 4 mg, intravenous, Once, On Sun04/01/25 at 1230, For 1 dose, When administering via IV Push, administer over 3-5 minutes. Start: 01-27-2025 End: 01-27-2025 4 mg, intravenous, Once, On Sun01/27/25 at 0230, For 1 dose, When administering via IV Push, administer over 3-5 minutes. Start: 12-23-2023 End: 12-23-2023 ondansetron ODT (Zofran-ODT) disintegrating tablet 4 mg Start: 12-05-2023 End: 12-05-2023 ondansetron (Zofran) injecti on 4 mg Start: 01-13-2021 Zofran 4 mg or al tablet Dose : 4 mg = 1 tab(s), Oral, q6h, PRN Nausea, # 10 tab(s), 0 Refill(s), Gastroenteritis Start Date: 01/13/21 Status: Ordered OXcarbazepine 150 mg oral tablet (14 sources) Anti-epileptic Agent Start: 07-29-2021 End: 08-30-2021 take 2 tablets by mouth twice daily Oxcarbazepine 150 mg tablet Discontinued 300 mg PO TWICE A DAY July 29, 2021 12:00am August 30, 2021 10:02am Start: 07-29-2021 End: 08-30-2021 take 300 mg by mouth twice daily Oxcarbazepine Discontinued 300 MG PO TWICE A DAY July 28, 2021 11:00pm August 30, 2021 9:02am Start: 11-09-2020 End: 06-27-2021 take 2 tablets by mouth twice daily OXcarbazepine (TRILEPTAL) 150 mg tablet Take 2 tablets by mouth twice daily. 360 tablet 1 11/09/2020 06/27/2021 Discontinued Start: 04-19-2020 OXcarbazepine 150 mg oral tablet TAKE 1 TABLET TWICE DAILY FOR WEEK 1 THEN 2 TABS TWICE DAILY ON WEEK Start Date: 04/19/20 Status: Ordered Start: 01-27-2020 OXcarbazepine 150 MG Oral Tablet Quantity: 120 Refills: 0 Start : 27-Jan-2020 Active PARoxetine hydrochloride 40 mg oral tablet (20 sources) Serotonin Reuptake Inhibitor Start: 12-15-2022 End: 07-27-2023 take 1 tablet by mouth once daily PARoxetine (PAXIL) 20 mg tablet Indications: PTSD (post-traumatic stress disorder) , Adjustment disorder with depressed mood , Generalized anxiety disorder Take 1 tablet by mouth once daily. Take with 40 mg tablet for a total daily dosage of 60 mg. 90 tablet 0 03/12/2023 07/27/2023 Discontinued Start: 11-17-2022 End: 03-13-2023 take 1 tablet by mouth once daily PARoxetine (PAXIL) 10 mg tablet Indications: PTSD (post-traumatic stress disorder) , Adjustment disorder with depressed mood , Generalized anxiety disorder Take 1 tablet by mouth once daily. With 40 mg tablet for total of 50 mg daily 90 tablet 0 12/13/2022 03/13/2023 Active Start: 08-02-2021 End: 11-08-2023 take 1 tablet by mouth once daily Paroxetine Hcl 40 mg tablet Discontinued 40 mg PO DAILY August 02, 2021 12:00am November 08, 2023 12:45pm Start: 04-19-2020 End: 08-02-2021 take 1 tablet by mouth once daily Paroxetine Hcl 30 mg tablet Discontinued 30 mg PO DAILY July 29, 2021 12:00am August 02, 2021 9:08am Start: 01-27-2020 PARoxetine HCl - 30 MG Oral Tablet Quantity: 30 Refills: 0 Start : 27-Jan-2020 Active Comment on above: Take 1 tablet by claudio once daily. TAKE 1 TABLET BY CLAUDIO TH EVERY DAY Source=[employer], Medication=PAROXETINE HCL 40 MG TABLET, OriginatingSource=[employer], [employer] OriginatingProvider=JEANETTE MILLER, Duration=90, Date Last Modified/Filled=13-Jun-2022 Take 1 tablet by claudio th once daily. With 40 mg tablet for total of 50 mg daily Take 1 tablet by claudio th once daily. Take with 40 mg tablet for total dosage of 60 mg. Take 1 tablet by claudio th once daily. Take with 20 mg tablet for total dosage of 60 mg. Take 1 tablet by claudio th once daily. Take with 40 mg tablet for a total daily dosage of 60 mg. Peg 3350-Sod Sulf,Jchf-Tdt-Ppd (Suflave) 178.7-7.3-0.5 gram recon soln (4 sources) Start: 04-13-2025 End: 04-28-2025 Peg 3350-Sod Sulf,Jxgy-Hkv-Rre (Suflave) 178.7-7.3-0.5 gram recon soln Discontinued 0 PO .COMPLEX 2 0 April 13, 2025 12:00am April 28, 2025 1:46pm as directed for split dose bowel prep Start: 04-13-2025 Peg 3350-Sod S ulf,Spmb-Uwu-Gvu (Suflave) 178.7-7.3-0.5 gram recon soln Active 0 PO .COMPLEX 2 0 April 13, 2025 12:00am as directed for split dose bowel prep microencapsulated potassium chloride 20 meq extended release oral tablet (1 source) Start: 12-23-2023 End: 12-23-2023 potassium chloride CR (Klor-Con M20) ER tablet 40 mEq prazosin 1 mg oral tablet (19 sources) alpha-Adrenerg ic Carlos Start: 07-17-2024 End: 02-23-2025 take 1 capsule by mouth at bedtime Prazosin 1 mg capsule Discontinued 1 mg PO AT BEDTIME July 17, 2024 12:00am February 23, 2025 7:09am Start: 05-08-2024 End: 05-08-2025 take 1 capsule by mouth once daily at bedtime prazosin (Minipress) 1 mg capsule Indications: PTSD (post-traumatic stress disorder) Take 1 capsule (1 mg) by mouth once daily at bedtime. 30 capsule 11 05/08/2024 08/01/2024 Discontinued (Med List Cleanup) Vits (6 sources) Start: 08-28-2013 End: 11-02-2013 take 1 tablet by mouth once daily Vits Discontinued 1 TABLET PO DAILY August 28, 2013 1:00am November 02, 2013 7:32pm Start: 08-28-2013 End: 11-02-2013 take 1 tablet by mouth once daily Vits Discontinued 1 TABLET PO DAILY August 28, 2013 12:00am November 02, 2013 6:32pm Vits tablet (5 sources) Start: 08-28-2013 End: 11-02-2013 Vits tablet Discontinued 1 {tbl} PO DAILY August 28, 2013 1:00am November 02, 2013 7:32pm prochlorperazine 5 mg/ml injectable solution (12 sources) Phenothiazine Start: 12-06-2023 End: 12-06-2023 prochlorperazine (Compazine) injection 10 mg Start: 09-17-2021 End: 11-08-2023 take 1 tablet by mouth three times daily as needed for nausea and vomiting Prochlorperazine Maleate (Compazine) 5 mg tablet Discontinued 5 mg PO THREE TIMES A DAY as needed for nausea and vomiting 10 September 17, 2021 1:00am November 08, 2023 12:46pm promethazine hydrochloride 25 mg oral tablet (20 sources) Phenothiazine Start: 04-19-2020 End: 08-02-2021 take 1 tablet by mouth every six hours as needed Promethazine 12.5 mg tablet Discontinued 12.5 mg PO EVERY 6 HOURS as needed July 29, 2021 12:00am August 02, 2021 9:41am Start: 01-13-2020 Promethazine H Cl - 12.5 MG Oral Tablet Quantity: 12 Refills: 0 Start : 13-Jan-2020 Active Start: 01-06-2019 End: 07-29-2021 take 1 tablet by mouth every six hours as needed for nausea Promethazine 25 mg tablet Discontinued 25 mg PO EVERY 6 HOURS NEEDED as needed for Nausea June 23, 2021 12:00am July 29, 2021 11:19am rosuvastatin calcium 5 mg oral tablet (20 sources) HMG-CoA Reductase Inhibitor Start: 02-19-2023 End: 05-12-2024 take 1 tablet by mouth once daily Rosuvastatin 5 mg tablet Discontinued 5 mg PO DAILY November 08, 2023 1:00am May 12, 2024 12:00pm Comment on above: Take 1 tablet by claudio th daily at bedtime. take 1 tablet by claudio th everyday at bedtime 1000 ml sodium chloride 9 mg/ml injection (13 sources) Start: 04-01-2025 End: 04-01-2025 1,000 mL, intravenous, at 999 mL/hr, Administer over 1 Hours, Once, On Sun04/01/25 at 1230, For 1 dose Start: 02-05-2025 End: 02-05-2025 1,000 mL, intravenous, at 99 9 mL/hr, Administer over 1 Hours, Once, On Ashlee 02/05/25 at 1635, For 1 dose Start: 12-31-2024 End: 12-31-2024 1,000 mL, intravenous, at 99 9 mL/hr, Administer over 1 Hours, Once, On Sun12/31/24 at 1405, For 1 dose Start: 11-26-2024 End: 11-26-2024 1,000 mL, intravenous, at 99 9 mL/hr, Administer over 1 Hours, Once, On Sun11/26/24 at 1510, For 1 dose Start: 04-06-2024 End: 04-06-2024 1,000 mL, intravenous, at 99 9 mL/hr, Administer over 1 Hours, Once, On Sun04/06/24 at 1640, For 1 dose Start: 02-13-2024 End: 02-13-2024 1,000 mL, intravenous, at 99 9 mL/hr, Administer over 1 Hours, Once, On Sun02/13/24 at 1510, For 1 dose Start: 12-23-2023 End: 12-23-2023 sodium chloride 0.9 % bolus 1,000 mL Start: 12-05-2023 End: 12-07-2023 take 100 mL intravenously every hour 100 mL/hr, intravenous, Continuous, Starting on Sun12/06/23 at 0615 Start: 12-05-2023 End: 12-06-2023 sodium chloride 0.9% infusio n Start: 07-11-2023 End: 07-11-2023 sodium chloride 0.9 % bolus 1,000 mL tirzepatide (Mounjaro) 2.5 mg/0.5 mL pen injector (1 source) Start: 04-23-2025 End: 04-23-2025 inject 2.5 mg by subcutaneous injection every week tirzepatide (Mounjaro) 2.5 mg/0.5 mL pen injector Indications: Mixed diabetic hyperlipidemia associated with type 2 diabetes mellitus Inject 2.5 mg under the skin 1 (one) time per week. 2 mL 4 04/23/2025 04/23/2025 Discontinued (Reorder) tranexamic acid 650 mg oral tablet (13 sources) Antifibrinolytic Agent Start: 07-29-2021 End: 08-02-2021 take 2 tablets by mouth three times daily as needed Tranexamic Acid 650 mg tablet Discontinued 1300 mg PO THREE TIMES A DAY as needed July 29, 2021 12:00am August 02, 2021 9:08am Start: 07-29-2021 End: 08-02-2021 take 1300 mg by mouth three times daily Tranexamic Acid Discontinued 1300 MG PO THREE TIMES A DAY July 28, 2021 11:00pm August 02, 2021 8:08am Start: 08-24-2020 End: 06-24-2021 take 2 tablets by mouth every eight hours as needed tranexamic acid (LYSTEDA) 650 mg tablet Take 2 tablets by mouth three times daily as needed (heavy menstrual bleeding) for up to 5 days. 30 tablet 3 08/24/2020 06/24/2021 Discontinued Start: 10-09-2019 Tranexamic Aci d 650 MG Oral Tablet Quantity: 30 Refills: 0 Start : 09-Oct-2019 Active 1 ml triamcinolone acetonide 40 mg/ml injection (2 sources) Corticosteroid Start: 07-18-2024 End: 07-18-2024 triamcinolone acetonide (Kenalog-40) injection 40 mg Start: 07-18-2024 End: 07-18-2024 40 mg, intra-articular, Once PRN Procedure, Starting on Sun07/18/24 at 1456, For 1 dose vitamin b12 1 mg/ml injectable solution (10 sources) Vitamin B12 Start: 01-14-2025 End: 01-14-2025 cyanocobalamin (Vitamin B-12) injection 1,000 mcg Start: 01-14-2025 End: 01-14-2025 inject 1000 ug by intramuscular injection once 1,000 mcg, intramuscular, Once, On Sun01/14/25 at 0945, For 1 dose Start: 12-17-2024 End: 12-17-2024 cyanocobalamin (Vitamin B-12 ) injection 1,000 mcg Start: 12-17-2024 End: 12-17-2024 inject 1000 ug by intramuscular injection once 1,000 mcg, intramuscular, Once, On Sun12/17/24 at 1030, For 1 dose Start: 04-09-2024 End: 04-09-2025 take 1 tablet by mouth once daily cyanocobalamin (Tammie min B-12) 1,000 mcg tablet Indications: Low serum vitamin B12 Take 1 tablet (1,000 mcg) by mouth once daily. 90 tablet 3 04/09/2024 06/17/2024 Discontinued (Therapy completed) Problems Active Problems Problem Classification Problem Date Documented Da te Episodic/Chronic Abdominal pain (20 sources) Periumbilical pain; Translations: [Periumbilical pain] Onset: 12-06-2023 Resolved: 12-07-2023 12-06-2023 Episodic Adjustment disorders (20 sources) Adjustment disorder with depressed mood; Translations: [Adjustment disorder with depressed mood] Onset: 10-06-2008 10-03-2021 Chronic Anxiety disorders (20 sources) Generalized anxiety disorder; Translations: [Generalized anxiety disorder] Onset: 07-01-2020 Chronic Asthma (20 sources) Mild intermittent asthma; Translations: [Mild intermittent asthma, uncomplicated] Onset: 01-27-2009 10-03-2021 Chronic Cardiac dysrhythmias (20 sources) Postural orthostatic tachycardia syndrome ; Translations: [POTS (postural orthostatic tachycardia syndrome)] Onset: 02-20-2024 02-20-2024 Chronic Cardiac dysrhythmias (20 sources) Tachycardia; Translations: [Tachycardia, unspecified] Onset: 09-24-2022 Episodic Conditions associated with dizziness or vertigo (20 sources) Dizziness; Translations: [Dizziness and giddiness] Onset: 08-05-2021 08-05-2021 Episodic Diabetes mellitus with complications (20 sources) Type II diabetes mellitus uncontrolled; Translations: [Uncontrolled type 2 diabetes mellitus] Onset: 10-13-2020 Resolved: 01-14-2025 08-05-2021 Chronic Diabetes mellitus without complication (20 sources) Type 2 diabetes mellitus; Translations: [Type 2 diabetes mellitus without complications] Onset: 07-07-2022 09-27-2022 Chronic Disorders of lipid metabolism (7 sources) Mixed hyperlipidemia; Translations: [Mixed hyperlipidemia] Onset: 02-20-2024 Chronic Disorders of teeth and jaw (1 source) Toothache; Translations: [Other specified disorders of teeth and supporting structures] 01-10-2024 Episodic E Codes: Adverse effects of medical drugs (1 source) Adverse effect of unspecified drugs, medicaments and biological substances, initial encounter; Translations: [Adverse effect of drug, initial encounter] Onset: 12-10-2022 Episodic Epilepsy; convulsions (20 sources) Simple partial seizure, consciousness not impaired; Translations: [Localization-related (focal) (partial) symptomatic epilepsy and epileptic syndromes with simple partial seizures, not intractable, without status epilepticus] Onset: 09-25-2022 09-27-2022 Chronic Comment on above: 6 months ago - unsur e of type Epilepsy; convulsions (20 sources) Seizure; Translations: [Unspecified convulsions] Onset: 10-13-2020 05-03-2014 Episodic Essential hypertension (20 sources) Essential hypertension; Translations: [Essential (primary) hypertension] Onset: 04-02-2020 04-02-2020 Chronic Fluid and electrolyte disorders (20 sources) Hypokalemia; Translations: [Hypokalemia] Onset: 09-27-2022 09-27-2022 Episodic Hypertension with complications and secondary hypertension (4 sources) Hypertension secondary to endocrine disorders; Translations: [Hypertension secondary to endocrine disorders] Onset: 01-14-2025 Chronic Intestinal obstruction without hernia (1 source) Small bowel obstruction; Translations: [Unspecified intestinal obstruction, unspecified as to partial versus complete obstruction] 12-06-2023 Episodic Miscellaneous mental health disorders (20 sources) Dissociative convulsions; Translations: [Conversion disorder with seizures or convulsions] Onset: 10-20-2022 Chronic Mood disorders (20 sources) Severe major depression, single episode, without psychotic features; Translations: [Major depressive disorder, single episode, severe without psychotic features] Onset: 09-25-2022 Chronic Mood disorders (3 sources) Mood disorders; Translations: [Depression, unspecified] Onset: 09-25-2022 Nausea and vomiting (20 sources) Nausea, vomiting and diarrhea; Translations: [Nausea with vomiting, unspecified] Onset: 09-21-2021 09-27-2022 Episodic Nonspecific chest pain (20 sources) Chest pain; Translations: [Chest pain, unspecified] Onset: 07-09-2024 05-25-2023 Episodic Nutritional deficiencies (20 sources) Vitamin D deficiency; Translations: [Vitamin D deficiency, unspecified] Onset: 04-09-2024 04-09-2024 Chronic Open wounds of extremities (20 sources) Puncture wound of toe; Translations: [Puncture wound without foreign body of unspecified toe(s) without damage to nail, initial encounter] Onset: 09-27-2022 09-27-2022 Episodic Other aftercare (1 source) USP (current) use of insulin; Translations: [USP (current) use of insulin] Onset: 05-29-2023 Episodic Other aftercare (1 source) Other harness fitter (current) drug therapy; Translations: [Other harness fitter (current) drug therapy] Onset: 05-29-2023 Episodic Other circulatory disease (20 sources) Low blood pressure; Translations: [Hypotension, unspecified] Onset: 08-05-2021 08-05-2021 Episodic Comment on above: PT REPORTS ITS BEEN PRETTY HIGH Other circulatory disease (1 source) Orthostatic hypotension; Translations: [Orthostatic hypotension] 09-24-2022 Episodic Other circulatory disease (4 sources) Hypotension, unspecified; Translations: [Hypotension, unspecified] 12-18-2022 Episodic Other circulatory disease (1 source) Elevated blood pressure; Translations: [Elevated blood-pressure reading, without diagnosis of hypertension] 07-06-2024 Episodic Other connective tissue disease (2 sources) Increased muscle tone; Translations: [Other specified disorders of muscle] Episodic Other connective tissue disease (20 sources) Spasm of cervical paraspinous muscle; Translations: [Other muscle spasm] Onset: 09-27-2022 09-27-2022 Episodic Other connective tissue disease (1 source) Pain in finger of right hand; Translations: [Pain in right finger(s)] 05-09-2024 Episodic Other connective tissue disease (1 source) Neurological finding 11-26-2024 Episodic Other connective tissue disease (5 sources) Flexor tenosynovitis of finger; Translations: [Flexor tenosynovitis of finger] 05-09-2024 Episodic Other endocrine disorders (1 source) Hypoglycemia; Translations: [Hypoglycemia, unspecified] 12-23-2023 Chronic Other female genital disorders (11 sources) Vaginal bleeding; Translations: [Abnormal uterine and vaginal bleeding, unspecified] 08-18-2019 Chronic Other female genital disorders (1 source) Pruritus of vagina; Translations: [Other specified noninflammatory disorders of vagina] Episodic Other gastrointestinal disorders (1 source) Irritable bowel syndrome without diarrhea; Translations: [Irritable bowel syndrome, unspecified] Onset: 04-22-2025 Chronic Other gastrointestinal disorders (11 sources) Constipation; Translations: [Constipation, unspecified] Onset: 02-05-2025 01-27-2025 Episodic Other gastrointestinal disorders (1 source) Chronic constipation; Translations: [Other constipation] 04-16-2025 Episodic Other hereditary and degenerative nervous system conditions (1 source) Coarse tremor; Translations: [Other specified forms of tremor] 05-30-2023 Chronic Other liver diseases (20 sources) Steatosis of liver; Translations: [Fatty (change of) liver, not elsewhere classified] Onset: 02-20-2024 02-20-2024 Chronic Other lower respiratory disease (20 sources) Dyspnea; Translations: [Shortness of breath] Onset: 09-27-2022 09-27-2022 Episodic Other lower respiratory disease (10 sources) Dyspnea on exertion; Translations: [Other forms of dyspnea] 12-18-2022 Episodic Other lower respiratory disease (3 sources) Other forms of dyspnea; Translations: [Other respiratory abnormalities] 12-18-2022 Episodic Other lower respiratory disease (2 sources) Hyperventilation; Translations: [Hyperventilation] Onset: 04-12-2025 Episodic Other nervous system disorders (7 sources) Tremor; Translations: [Tremor, unspecified] 05-25-2023 Episodic Other nervous system disorders (2 sources) Tremor, unspecified; Translations: [Abnormal involuntary movements] Onset: 05-29-2023 05-25-2023 Episodic Other non-traumatic joint disorders (20 sources) Pain in right shoulder; Translations: [Pain in joint, shoulder region] Onset: 07-06-2024 01-06-2021 Episodic Other nutritional; endocrine; and metabolic disorders (2 sources) Severe obesity; Translations: [Class 2 severe obesity due to excess calories with serious comorbidity and body mass index (BMI) of 35.0 to 35.9 in adult] Onset: 04-23-2025 04-23-2025 Chronic Other nutritional; endocrine; and metabolic disorders (2 sources) Morbid (severe) obesity due to excess calories; Translations: [Morbid (severe) obesity due to excess calories (Multi)] Onset: 04-23-2025 Chronic Other nutritional; endocrine; and metabolic disorders (2 sources) Body mass index (BMI) 35.0-35.9, adult; Translations: [Body mass index (BMI) 35.0-35.9, adult] Onset: 04-23-2025 Chronic Other nutritional; endocrine; and metabolic disorders (6 sources) H/O: diabetes mellitus; Translations: [Personal history of other endocrine, nutritional and metabolic disease] 11-07-2023 Episodic Other screening for suspected conditions (not mental disorders or infectious disease) (20 sources) Decreased vitamin B12 level; Translations: [Other specified abnormal findings of blood chemistry] Onset: 12-17-2024 12-17-2024 Episodic Other skin disorders (20 sources) Mass of shoulder region; Translations: [Localized swelling, mass and lump, unspecified upper limb] Onset: 09-27-2022 09-27-2022 Episodic Ovarian cyst (13 sources) Cyst of ovary; Translations: [Unspecified ovarian cyst, unspecified side] Onset: 04-21-2025 04-13-2025 Episodic Poisoning by nonmedicinal substances (11 sources) Bee sting; Translations: [Toxic effect of venom of bees, accidental (unintentional), initial encounter] 06-22-2015 Episodic Residual codes; unclassified (1 source) Noncompliance with medication regimen; Translations: [Personal history of noncompliance with medical treatment, presenting hazards to health] 05-29-2023 Episodic Unclassified (2 sources) BLURRED VISION 07-07-2022 Comment on above: BLURRED VISION Unclassified (2 sources) BLACK OUTS, LIGHTHEADED 09-24-2022 Comment on above: BLACK OUTS, LIGHTHEA DED Unclassified (1 source) Primary orthostatic hypotension 09-24-2022 Unclassified (2 sources) HIGH BLOOD SUGAR 05-29-2023 Comment on above: HIGH BLOOD SUGAR Unclassified (1 source) Noncompliance with medication treatment due to difficulty with dosing 05-29-2023 Unclassified (1 source) Patient's other noncompl with meds regimen for other reason; Translations: [Patient's other noncompl with meds regimen for other reason] Onset: 05-29-2023 Unclassified (1 source) Contact with and (suspected) exposure to COVID-19; Translations: [Contact with and (suspected) exposure to COVID-19] Onset: 09-24-2022 Unclassified (1 source) ERRONEOUS ENCOUNTER--DISREGARD 07-15-2024 Unclassified (1 source) Patient encounter status 04-23-2025 Unclassified (1 source) Obesity, class 2; Translations: [Obesity, class 2] Onset: 04-23-2025 Urinary tract infections (20 sources) Urinary tract infectious disease; Translations: [Urinary tract infection, site not specified] Onset: 09-27-2022 09-27-2022 Episodic Viral infection (20 sources) COVID-19; Translations: [Other specified viral infection] Onset: 02-12-2021 09-27-2022 Episodic Past or Other Problems Problem Classification Problem Date Documented Da te Episodic/Chronic Abdominal hernia (20 sources) Umbilical hernia; Translations: [Umbilical hernia without obstruction or gangrene] Onset: 06-07-2017 Resolved: 08-14-2019 08-14-2019 Episodic Administrative/social admission (1 source) Other physical and mental strain related to work; Translations: [Other physical and mental strain related to work] Onset: 07-07-2022 Episodic Allergic reactions (1 source) Allergy status to sulfonamides status; Translations: [Allergy status to sulfonamides] Onset: 09-24-2022 Episodic Benign neoplasm of uterus (20 sources) Intramural leiomyoma of uterus; Translations: [Intramural leiomyoma of uterus] Onset: 08-14-2019 08-14-2019 Episodic Blindness and vision defects (20 sources) Myopic astigmatism; Translations: [Unspecified astigmatism, bilateral] Onset: 05-31-2020 05-31-2020 Episodic Coma; stupor; and brain damage (20 sources) Loss of consciousness; Translations: [Unspecified coma] Onset: 02-03-2013 Resolved: 07-18-2013 07-18-2013 Episodic Developmental disorders (20 sources) Difficulty reading; Translations: [Specific reading disorder] Onset: 10-31-2012 Resolved: 08-14-2019 10-03-2021 Chronic Diabetes mellitus without complication (20 sources) Hyperglycemia; Translations: [Hyperglycemia, unspecified] Onset: 07-06-2009 Resolved: 07-18-2013 Episodic Diabetes or abnormal glucose tolerance complicating ; childbirth; or the puerperium (20 sources) History of gestational diabetes mellitus; Translations: [Personal history of gestational diabetes] Onset: 10-31-2012 Resolved: 10-13-2020 10-03-2021 Episodic Fracture of upper limb (20 sources) Closed fracture of metacarpal bone; Translations: [Unspecified fracture of unspecified metacarpal bone, initial encounter for closed fracture] Onset: 01-05-2010 Resolved: 02-03-2013 02-03-2013 Episodic Hemorrhoids (20 sources) Hemorrhoids; Translations: [Unspecified hemorrhoids] Onset: 05-19-2011 Resolved: 02-03-2013 02-03-2013 Episodic Inflammatory diseases of female pelvic organs (20 sources) Acute vaginitis; Translations: [Acute vaginitis] Onset: 02-05-2022 Episodic Menstrual disorders (20 sources) Irregular periods; Translations: [Irregular menstruation, unspecified] Onset: 06-13-2012 Resolved: 02-03-2013 11-18-2012 Chronic Nonmalignant breast conditions (20 sources) Discharge from nipple; Translations: [Nipple discharge] Onset: 02-19-2016 Resolved: 08-14-2019 Episodic Nutritional deficiencies (20 sources) Serum vitamin B12 low; Translations: [Deficiency of other specified B group vitamins] Onset: 04-09-2024 04-09-2024 Episodic Other circulatory disease (20 sources) History of cerebrovascular accident; Translations: [Personal history of transient ischemic attack (TIA), and cerebral infarction without residual deficits] Onset: 09-27-2022 09-27-2022 Episodic Other circulatory disease (4 sources) Elevated blood-pressure reading, without diagnosis of hypertension; Translations: [Elevated blood-pressure reading, w/o diagnosis of htn] Onset: 05-29-2023 Episodic Other circulatory disease (1 source) Personal history of transient ischemic attack (TIA), and cerebral infarction without residual deficits; Translations: [Prsnl hx of TIA (TIA), and cereb infrc w/o resid deficits] Onset: 09-25-2022 Episodic Other circulatory disease (1 source) Orthostatic hypotension; Translations: [Orthostatic hypotension] Onset: 09-24-2022 Episodic Other circulatory disease (20 sources) H/O: hypertension; Translations: [Personal history of other diseases of the circulatory system] Onset: 10-31-2012 Resolved: 08-14-2019 10-03-2021 Episodic Other circulatory disease (3 sources) Postural orthostatic tachycardia syndrome ; Translations: [Postural orthostatic tachycardia syndrome (POTS)] Onset: 02-20-2024 01-14-2025 Episodic Other complications of (20 sources) Rubella non-immune; Translations: [Supervision of other high risk pregnancies, unspecified trimester] Onset: 11-01-2012 Resolved: 07-18-2013 07-18-2013 Episodic Other connective tissue disease (20 sources) Synovitis and tenosynovitis; Translations: [Synovitis and tenosynovitis, unspecified] Onset: 05-12-2024 05-19-2024 Episodic Other connective tissue disease (20 sources) Infected hand; Translations: [Other synovitis and tenosynovitis, right hand] Onset: 05-26-2024 05-28-2024 Episodic Other connective tissue disease (20 sources) Tendinitis of right rotator cuff; Translations: [Other shoulder lesions, right shoulder] Onset: 07-12-2024 07-12-2024 Episodic Other connective tissue disease (20 sources) Disorder of finger; Translations: [Synovitis of finger] Onset: 05-12-2024 07-16-2024 Episodic Other connective tissue disease (20 sources) Adhesive capsulitis of right shoulder; Translations: [Adhesive capsulitis of right shoulder] Onset: 07-18-2024 07-18-2024 Episodic Other connective tissue disease (4 sources) Other shoulder lesions, right shoulder; Translations: [Other shoulder lesions, right shoulder] Onset: 07-12-2024 Episodic Other connective tissue disease (1 source) Synovitis and tenosynovitis, unspecified; Translations: [Synovitis and tenosynovitis, unspecified] Onset: 06-03-2024 Episodic Other eye disorders (20 sources) Intermittent alternating exotropia; Translations: [Intermittent alternating exotropia] Onset: 05-31-2020 05-31-2020 Episodic Other eye disorders (20 sources) Hypertropia of left eye; Translations: [Vertical strabismus, left eye] Onset: 05-31-2020 05-31-2020 Episodic Other eye disorders (20 sources) Inferior oblique overaction; Translations: [Other specified disorders of binocular movement] Onset: 05-31-2020 05-31-2020 Episodic Other female genital disorders (20 sources) Postcoital bleeding; Translations: [Postcoital and contact bleeding] Onset: 06-13-2012 Resolved: 09-26-2012 09-26-2012 Chronic Other gastrointestinal disorders (2 sources) Constipation, unspecified; Translations: [Constipation, unspecified] Onset: 01-27-2025 Episodic Other lower respiratory disease (2 sources) Shortness of breath; Translations: [Shortness of breath] Onset: 12-31-2024 Episodic Other non-traumatic joint disorders (19 sources) Decreased range of shoulder movement; Translations: [Stiffness of right shoulder, not elsewhere classified] Onset: 08-06-2024 08-06-2024 Episodic Other non-traumatic joint disorders (2 sources) Stiffness of right shoulder, not elsewhere classified; Translations: [Stiffness of right shoulder, not elsewhere classified] Onset: 08-06-2024 Episodic Other upper respiratory infections (3 sources) Acute maxillary sinusitis; Translations: [Acute maxillary sinusitis, unspecified] Onset: 12-10-2024 12-10-2024 Episodic Residual codes; unclassified (20 sources) Altered mental status; Translations: [Altered mental status, unspecified] Onset: 08-20-2022 Resolved: 08-23-2022 08-20-2022 Episodic Residual codes; unclassified (20 sources) History of syncope; Translations: [Personal history of other specified conditions] Onset: 08-08-2013 09-27-2022 Episodic Comment on above: 08/2013 saw neurolog y Residual codes; unclassified (2 sources) Altered mental status, unspecified; Translations: [AMS (altered mental status)] Onset: 08-20-2022 Episodic Residual codes; unclassified (4 sources) Personal history of other specified conditions; Translations: [Other specified personal history presenting hazards to health] Onset: 08-08-2013 12-18-2022 Episodic Residual codes; unclassified (20 sources) FH: Congenital anomaly; Translations: [Family history of other congenital malformations, deformations and chromosomal abnormalities] Onset: 10-31-2012 Resolved: 08-14-2019 10-03-2021 Episodic Residual codes; unclassified (20 sources) History of anesthesia problem; Translations: [Personal history of other specified conditions] Onset: 10-31-2012 Resolved: 07-18-2013 10-03-2021 Episodic Residual codes; unclassified (2 sources) Pain; Translations: [Pain] Onset: 07-15-2024 Episodic Screening and history of mental health and substance abuse codes (1 source) Personal history of nicotine dependence; Translations: [Personal history of nicotine dependence] Onset: 09-25-2022 Episodic Spondylosis; intervertebral disc disorders; other back problems (3 sources) Lumbar radiculopathy; Translations: [Radiculopathy, lumbar region] Onset: 07-11-2024 07-11-2024 Episodic Syncope (20 sources) Syncope; Translations: [Syncope and collapse] Onset: 08-05-2021 08-05-2021 Episodic Comment on above: SYNCOPE Unclassified (20 sources) Onset: 04-09-2024 Resolved: 04-23-2025 04-09-2024 Unclassified (1 source) Obesity, class 2; Translations: [Obesity, class 2] Onset: 04-23-2025 Results Test Name Value Interpretation Reference Range Facility MR/PAT.Angeli 05-19-2025 MR/PAT.[facility] Medical Records Department [address] [place] [id number] PAT - Anesthesia 05/19/25 1428 MR#: [id number] Acct: [id number] Name: REINALDO WARREN Rep #: [id number] : 1985 40 From: Cameron Anaya MD PCP: EZ Fuentes Status:PRE [facility] [place] Y Race: C Location: EN Pre-Assessment Diagnosis/Proposed Procedure Planned Operative Procedure(s): COLONOSCOPY/EGD Anesthesia History 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 When Was Last Pacemaker Check QUESTION #4 FULL TEXT: You/Your Family Experience fever (hyperthermia) with Anesthesia Last Oral Intake Last Oral intake: Last Oral Intake NPO since Meds taken in AM with sips of water? 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 Female Yes 05/19/25 10:06 HX of Motion Sickness No 05/19/25 10:06 HX of N/V After Surgery No 05/19/25 10:06 Non-Smoker Yes 05/19/25 10:06 Duration of Surgery greater No 05/19/25 10:06 than 60 minutes Number of Risk Factors 2 05/19/25 10:06 PONV Score Moderate Risk 05/19/25 10:06 Height Weight Height Weight: Anesthesia: Height Weight Height 5 ft 3 in 04/13/25 13:49 Respiratory Assessment Respiratory Assessment - discotheque dancer: Respiratory Tract Infection Hx - discotheque dancer Hx Respiratory Tract Infection No 05/19/25 10:06 STOP Sleep Apnea STOP Sleep Apnea - discotheque dancer: STOP Sleep Apnea - discotheque dancer Hx Hypertension Yes: NOT CONTROLLED 05/19/25 10:06 Hx Sleep Apnea No 05/19/25 10:06 CPAP No 05/19/25 10:06 BIPAP No 05/19/25 10:06 Do you snore loudly (louder No 05/19/25 10:06 than talking or can be heard Do you often feel tired/ No 05/19/25 10:06 fatigued/ sleepy during daytime? Has anyone observed you stop No 05/19/25 10:06 breathing during sleep? STOP Results Negative 05/19/25 10:06 QUESTION #5 FULL TEXT : Do you snore loudly (louder than talking or can be heard through closed doors)? 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 Specify any problems Hx of Preganancy in last 3 No 05/19/25 10:06 Months Nurse Filling Out Transfusion VCHRISTIN 05/19/25 10:06 Questions: Date: 05/19/25 05/19/25 10:06 Time: 10:07 05/19/25 10:06 Patient unable to answer at this time (ie. confused, unrespo /Reproduction History /Reproductive History - discotheque dancer: /Reproductive Hx- discotheque dancer Hx Now No 05/19/25 10:06 Gestational Age (in weeks): EDC: Hx Hx Para Hx Section SAB No 05/19/25 10:06 [facility] Medical History (Updated 05/19/25 @ 10:05 by Yoly Domingo) Wears dentures Wears glasses Depression Anxiety Diabetes Kidney stones Fatty liver High cholesterol Excessive bleeding TIA (transient ischemic attack) Former smoker History of echocardiogram History of stress test Cardiology follow-up encounter History of irregular heartbeat History of IBS History of anxiety History of depression History of asthma History of seasonal allergies Pott's disease Hypotension COVID-19 virus detected (02/12/21) History of syncope (08/2013) Asthma Dyslexia Migraine History of gestational diabetes Dysthymic disorder Essential hypertension Urinary tract infection Cervical paraspinal muscle spasm Depression Seizures Se (more content not included)... [facility] 05-13-2025 OV Office Visit (ENWSTR ) REINALDO WARREN ([id number]) 1985 F Date Time Provider Department 05/13/25 1:15 PM FARIBA MONSON ENDONTETR During your visit today, we recorded the following information about you: Temperature Pulse Respiration Weight 97.3 degrees 92/minute 14/minute 89.6 kg Last Period 05/12/25 Fariba Monson, RAYMON.PUBLIC SAFETY TELECOMMUNICATOR 05/13/2025 1:21 PM Signed OFFICE VISIT PROGRESS NOTE CC Reinaldo Warren is a 40 year old who presents today for blood sugar review,. HPI PATIENT OF DR. LAUREN, ENDOCRINE Diagnosed with diabetes mellitus type 2, ~ 2020 Gestational DM 2012 Last endocrine OV 05/30/2023 WITH KUN JORDAN HPI 05/13/2025 Sts stopped insulin Then couldn't find a doctor close enough at home Sts exercising, eating better PCP started her on GLP1 Patient stopped all regular pop Cooking at home for most meals CURRENT DM MEDS MOUNJARO 2.5 mg SMBG Type of Monitor: Other Frequency of Monitorin times a day BG Values: Patient states her glucometer sts blood sugars 200-400 Values over past week: Highest ; Lowest Hypoglycemia: no Diet: Low carbohydrate//no added sugar Exercise: treadmill at home, walking around block DM REVIEW OF SYSTEMS Last Eye Exam : 05/2024 Last Podiatry Exam: declined Cardiorespiratory: negative, denies chest pain, pressure Claudication: no Dyslipidemia: Yes, controlled on medication High Blood Pressure: Yes, controlled on medication CU HEMOGLOBIN A1C Latest Ref Rng 05/13/2025 Hemoglobin A1C (POCT) 4.3 - 5.6 % 6.6 ! Legend: ! Abnormal Component Ref Range AND Units 12/15/2024 HEMOGLOBIN A1c <5.7 % of total Hgb 7.1 High Recent Labs 07/17/19 1317 07/25/19 0752 11/02/20 1024 04/08/21 0739 08/05/21 1002 08/06/21 1419 08/07/21 0446 08/13/21 0928 08/18/21 1033 11/18/21 1604 08/20/22 1254 08/20/22 2034 08/21/22 0621 08/23/22 0409 02/16/23 1240 05/30/23 1519 ALT -- < > -- 17 19 -- 18 -- -- -- -- -- -- -- -- -- AST -- < > -- 30 - -- -- -- -- -- -- -- -- -- UCRR -- -- 218.9 -- -- -- -- -- -- -- -- -- -- -- 49.4 -- UALBR -- -- 18.8 -- -- -- -- -- -- -- -- -- -- -- <12.0 -- UALBCR -- -- 9 -- -- -- -- -- -- -- -- -- -- -- <24 -- TSH 1.450 -- -- -- -- 1.300 -- -- -- -- -- 3.040 -- -- -- -- CPEPT -- -- -- -- -- -- -- -- 5.3* -- -- -- -- -- -- -- GADQL -- -- -- -- -- -- -- -- Negative -- -- -- -- -- -- -- TPROT -- < > -- 6.9 7.1 -- 5.1* -- -- -- -- -- -- -- -- -- ALB -- < > -- 4.3 4.7 -- 3.5* -- -- -- -- -- -- -- -- -- CA 9.2 < > -- 9.3 9.7 8.8 8.7 < > -- -- 8.9 -- 8.7 9.6 -- -- TBILI -- < > -- 1.0 0.8 -- 0.4 -- -- -- -- -- -- -- -- -- ALKPHOS -- < > -- 68 90 -- 64 -- -- -- -- -- -- -- -- -- GLUC 167* < > -- 179* 554* 193* 149* < > 158* -- 277* -- 189* 197* -- -- BUN 9 < > -- 10 18 12 10 < > -- -- 7 -- 8 14 -- -- CREAT 0.64 < > -- 0.63 1.23* 0.74 0.71 < > -- -- 0.61 -- 0.60 0.68 -- -- NA 136 < > -- 134* 128* 137 137 < > -- -- 132* -- 135* 134* -- -- K 3.9 < > -- 4.3 4.8 4.0 4.1 < > -- -- 3.7 -- 4.1 4.0 -- -- CHLOR 101 < > -- 102 91* 104 103 < > -- -- 96* -- 100 97 -- -- CO2 24 < > -- 21* 23 23 24 < > -- -- 24 -- 25 26 -- -- ANION 11 < > -- 11 14 10 10 < > -- -- 12 -- 10 11 -- -- EGFROTH >60 < > -- >60 49 >60 >60 < > -- -- 118 -- 119 115 -- -- HBA1C -- < > -- 5.6 8.2* -- -- -- -- < > -- 6.6* -- -- 7.2* 7.6* B12 -- -- -- -- -- -- 285 -- -- -- -- -- -- -- -- -- < > = values in this interval not displayed. Recent Labs 05/12/17 0815 09/05/18 0949 04/08/21 0739 08/05/21 1002 08/07/21 0446 08/13/21 0928 11/18/21 1604 08/20/22 2034 02/16/23 1240 05/30/23 1519 TG 149 -- 207* -- -- 297* -- -- 517* -- CHOL 150 -- 195 -- -- 222* -- -- 278* -- HDL 37* -- 33* -- -- 35* -- -- 35* -- VLDL 30 -- 41* -- -- 59* -- -- 72* -- LDL 83 -- 121* -- -- 128* -- -- -- -- FASTTIME 12 -- 12 -- -- 12 -- -- 12 -- TCHDL 4.05 -- 5.91* -- -- 6.34* -- -- 7.94* -- LDLHDL 2.24 -- 3.67* -- -- 3.66* -- -- -- -- NONHDL 113 -- 162* -- -- 187* -- -- 243* -- HBA1C 4.4 < > 5.6 8.2* -- -- < > 6.6* 7.2* 7.6* HBA0 80 < > 114 189 -- -- -- 143 160 -- B12 -- -- -- -- 285 -- -- -- -- -- < > = values in this interval not displayed. PAST MEDICAL HISTORY Diagnosis Date Diabetes mellitus of mother, complicating , childbirth, or the puerperium, unspecified as to episode of care(648.00) Gestational diabetes Dysthymic disorder Depression (non-psychotic),postpar ashanti Essential hypertension, benign Hemorrhoids 05/19/2011 History of gestational diabetes 10/31/2012 10/31/2012Patient had gestational diabetes with her last 2 pregnancies. She was on glyburide with the that she delivered in 2009. She was insulin-dependent her last . She delivered both of those pregnancies in [place]. Patient is obese. 3 hour G TT ordered by Dr. Jennings. Migraine, unspecified, with intractable m (more content not included)... Normal [facility] Gastric Emptying Study - 4 H Bunny 04-30-2025 Gastric Emptying Study - 4 HR [facility] Imaging Services [address] [place] [address] [id number] Gastric Emptying Study - 4 HR MR#: [id number] Acct: [id number] Name: REINALDO WARREN Rep #: [id number] : 1985 F 40 From: Teddy Scott PCP: EZ Fuentes Status: REG CLI Study: Gastric Emptying Study - 4 HR Date of Exam: Exam# [id number] Ordering Dr: Lidia De Souza PROCEDURE: GASTRIC EMPTYING STUDY - 4 HR 04/30/2025 REASON FOR EXAM: N/V, DIABETIC COMPARISON: None. TECHNIQUE: The patient ingested a standard 2 slices of bread, to pets of butter, and 6 oz of water. There was no vomiting postprandially. Anterior and posterior planar images of the upper abdomen were obtained for 1 minute immediately following the meal at 1h, 2h and 4h if more than 10% of the activity persisted within the stomach. Regions of interest were drawn, and a geometric mean was used to calculate a brfz-rtlodmrm-zeyjm. Medications taken in the past 24 hours that may affect gastric emptying: None RADIOPHARMACEUTICAL: Technetium 99 M sulfur colloid DOSE 1.1mCi orally, with the solid meal FINDINGS: During the time of imaging, gastroesophageal reflux was not seen. Linear fit gastric emptying half-time of 133.18 minutes. Raw data fit gastric emptying half-time of 127.35 minutes. Percent activity remaining in stomach: 1 hour 78 % (normal 37-90%) 2 hours: 48 % (normal 30-60%) 4 hours: 10 % (normal 0-10%) NM/Gastric Emptying Study - 4 HR IMPRESSION: Normal solid phase gastric emptying. Reading Location: [place] [address] CC: EZ Cespedes; EZ De Souza Data Collection Specialist: Signed Normal [facility] 04-23-2025 CNPN Telephone (OBGYWM) REINALDO WARREN ([id number]) 1985 F Date Time Provider Department 04/23/25 RENEE MANUEL [employer] During your visit today, we recorded the following information about you: Caitlyn Espinal RN 04/23/2025 1:43 PM Signed Pt calling-states she had Pelvic US completed on 04/21/25 here at [facility] and wondering what results showed. Informed Pt would sent RR message to let her know she called and once report results-we would be in contact with her as at this time. KALEN Medellin Rebecca L, MD 04/24/2025 1:05 PM Signed PowerPlan message sent. Renee Manuel MD Allergies As of Date: 04/23/2025 Noted Allergy Reaction AUGMENTIN (AMOXICILLIN-POT CLAVUL*12/16/2010 1 - Mental Status Change SHELLFISH 12/12/2010 7 - Swelling TYLENOL #3 (CODEINE) 08/06/2007 7 - Swelling VENOM-HONEY BEE 12/28/2018 7 - Swelling Date Reviewed: 04/16/2025 Reviewed by: Renee Manuel MD - Fully Assessed Reason for Visit: Pelvic ultrasound results [Other] Prescriptions as of 04/24/2025 - dicyclomine (BENTYL) 10 mg capsule - ondansetron (ZOFRAN) 4 mg tablet TAKE 1 TABLET (4 MG) BY MOUTH EVERY 6 HOURS FOR 3 DAYS. - ARIPiprazole (ABILIFY) 15 mg tablet Take 15 mg by mouth. - metoprolol succinate ER (TOPROL XL) 25 mg 24 hr tablet Take 25 mg by mouth. - wmjqfhl-hveogadgi-gmlxv in D3 500 mg-5 mcg (200 unit) per tablet Take 1 tablet by mouth two times a day. - famotidine (PEPCID) 20 mg tablet Take 20 mg by mouth. - pantoprazole DR (PROTONIX) 20 mg tablet Take 20 mg by mouth. - mirtazapine (REMERON) 30 mg tablet Take 1 tablet by mouth daily at bedtime. - venlafaxine ER (EFFEXOR XR) 150 mg 24 hr capsule Take 1 capsule by mouth once daily. with 37.5 mg capsule for a total of 187.5 mg daily - venlafaxine ER (EFFEXOR XR) 37.5 mg 24 hr capsule Take 1 capsule by mouth once daily. with 150 mg capsule for a total of 187.5 mg daily - gabapentin (NEURONTIN) 100 mg capsule Take 1 capsule by mouth three times a day as needed (for anxiety) for up to 30 days. - traZODone (DESYREL) 100 mg tablet Take 1 tablet by mouth at bedtime as needed for sedation. - lisinopril (ZESTRIL) 40 mg tablet Take 1 tablet by mouth once daily. - rosuvastatin (CRESTOR) 5 mg tablet take 1 tablet by mouth everyday at bedtime - linaclotide (LINZESS) 145 mcg capsule Take by mouth. Problem List As Of Date 04/23/2025 Noted Resolved Adjustment disorder with depressed mood [F43.21]10/06/2008 Asthma, mild intermittent [J45.20] 01/27/2009 Glycosuria [R81] 07/06/2009 07/18/2013 Closed fracture of metacarpal bone(s), site uns*01/05/2010 02/03/2013 Hemorrhoids [K64.9] 05/19/2011 02/03/2013 Irregular menstrual bleeding [N92.6] 06/13/2012 11/18/2012 Postcoital bleeding [N93.0] 06/13/2012 09/26/2012 Amenorrhea [N91.2] 10/15/2012 02/03/2013 History of [Z98.891] 10/31/2012 07/18/2013 History of gestational diabetes [Z86.32] 10/31/2012 10/13/2020 History of hypertension [Z86.79] 10/31/2012 08/14/2019 Reading difficulty [F81.0] 10/31/2012 08/14/2019 Family history of defects [Z82.79] 10/31/2012 08/14/2019 History of anesthesia complications [Z87.898] 10/31/2012 07/18/2013 Rubella non-immune status, antepartum [O09.899,*11/01/2012 07/18/2013 LOC (loss of consciousness) [R40.20] 02/03/2013 07/18/2013 Abnormal glucose complicating [O99.81*03/16/2013 07/18/2013 Nipple discharge [N64.52] 02/19/2016 08/14/2019 Lump or mass in breast [N63.0] 02/19/2016 08/14/2019 Umbilical hernia [K42.9] 06/07/2017 08/14/2019 Intramural uterine fibroid [D25.1] 08/14/2019 Hypertension, essential [I10] 04/02/2020 Intermittent alternating 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] 05/31/2020 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] 05/31/2020 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] 05/31/2020 Myopic astigmatism of both eyes [H52.203, H52.1*05/31/2020 Post-traumatic stress disorder, acute [F43.11] 07/01/2020 Uncontrolled type 2 diabetes mellitus (HCC) [IM*10/13/2020 Seizures (HCC) [R56.9] 10/13/2020 Dizziness [R42] 08/05/2021 Syncope [R55] 08/05/2021 Hypotension [I95.9] 08/05/2021 AMS (altered mental status) [R41.82] 08/20/2022 08/23/2022 Acute vaginitis [N76.0] 02/05/2022 History of cerebrovascular accident [Z86.73] 09/27/2022 History of syncope [Z87.898] 09/27/2022 Hyperglycemia [R73.9] 02/05/2022 Hypokalemia [E87.6] 09/27/2022 Mass of shoulder region [R22.30] 09/27/2022 Nausea, vomiting, and diarrhea [R11.2, R19.7] 09/21/2021 Puncture wound of toe [S91.139A] 09/27/2022 Severe acute respiratory syndrome coronavirus 2*02/12/2021 Shortness of breath [R06.02] 09/27/2022 Simple partial seizure, consciousness not impai*09/27/2022 Sinus bradycardia [R00.1] 09/27/2022 Spasm of cervical paraspinous muscle [M62.838] 09/27/2022 Type 2 diabetes mellitus with other specified c* Urinary tract infection [N39.0] 09/27/2022 Psychogenic (more content not included)... Normal [facility] US Pelvison 04-23-2025 Indication Follow-up on ovarian cyst Impression The uterus is anteverted and measures 87 mm x 38 mm x 54 mm. The endometrial thickness is 8.1 mm. The right ovary measures 32 mm x 18 mm x 25 mm. The left ovary measures 33 mm x 22 mm x 18 mm. There is no free fluid visualized. Recommendations Normal pelvic ultrasound. Menstrual History LMP on 04/13/2025 Method Transabdominal and transvaginal ultrasound examination, 3D ultrasound examination, Color Doppler examination. View: Adequate visualization Uterus Uterus: Visualized Uterus position: anteverted Description of uterine malformations: normally shaped Myometrium: normal Endometrium: endometrial midline: linear Cervix details: normal Uterus length 87 mm Uterus width 54 mm Uterus height 38 mm Uterus Vol 92.8 cm Endometrial thickness, total 8.1 mm Fibroids: No fibroids identified Polyps: No polyps identified Right Ovary Rt ovary: Visualized Outline: smooth Rt ovary morphology: premenopausal normal follicular Rt ovary D1 32 mm Rt ovary D2 18 mm Rt ovary D3 25 mm Rt ovary Vol 7.5 cm Rt ovarian cyst(s): No cysts identified Left Ovary Lt ovary: Visualized Outline: smooth Lt ovary morphology: premenopausal normal follicular Lt ovary D1 33 mm Lt ovary D2 22 mm Lt ovary D3 18 mm Lt ovary Vol 6.7 cm Lt ovarian cyst(s): No cysts identified Cul de Sac Visualized. no free fluid visualized Performed By: Keya Pool RDMS Read By: Kiara Galvez M.D. MATERNAL MEDICINE [facility] US Pelvison 04-21-2025 Radiology Study observation (narrative) [facility] Calprotectin, Stoolon [address] 37 ug/g Normal 0-120 [facility] Comment on above: Result Comment: Conc entration Interpretation Follow-Up < 5 - 50 ug/g Normal None >50 -120 ug/g Borderline Re-evaluate in 4-6 weeks >120 ug/g Abnormal Repeat as clinically indicated Performed at: [address] [id number] Electrical Technician Instructor: Geeta Gill MD, Phone: [phone] Performed By: #### M 100.5596, L7000.0700, L7000.0750, M100.637 #### [facility] [address] [facility]. [place], [place], [address] L7000.0750on 04-19-2025 P ELASTASE,FECA > 800 Normal >200 [facility] Comment on above: Result Comment: Resu lt Units: ug Elast./g Severe Pancreatic Insufficiency: <100 Moderate Pancreatic Insufficiency: 100 - 200 Normal: >200 Performed at: [address] [id number] Electrical Technician Instructor: Geeta Gill MD, Phone: [phone] Performed By: #### M 100.6796, L7000.0700, L7000.0750, M100.637 #### [facility] [address] [place], [address] CDIFF (PCR)on 04-16-2025 CDIFF Pending [phone] NAP1-B1 Presumptive Negative *for epidemiolologic???use C. Diff PCR Negative- No toxigenic C. Diff Detected Normal [facility] Comment on above: Performed By: #### M 100.6796, L7000.0700, L7000.0750, M100.637 #### [facility] [address] [place], [address] CNOVon 04-16-2025 CNOV Office Visit (OBGYWM ) REINALDO WARREN ([id number]) 1985 F Date Time Provider Department 04/16/25 11:30 AM RENEE MANUEL OBGYWM During your visit today, we recorded the following information about you: Blood pressure Weight Last Period 146/92 88.9 kg 04/15/25 Renee Manuel MD 04/16/2025 12:35 PM Signed Obstetrics and Gynecology [place] DAMAGE PREVENTION COORDINATOR Visit Subjective Recording using Kingnet software for draft documentation of the visit was discussed with the patient/authorized sales representative uniforms; all questions welcomed and answered. Patient/authorized sales representative uniforms agreed to proceed CHIEF COMPLAINT: The patient is a 40-year-old female with a history of ovarian cysts, hypertension, and diabetes presenting for evaluation of chronic abdominal pain and menstrual irregularities. HPI: Pelvic Pain - Onset: Approximately 6 months ago. - Location: Described as all over the abdomen. - Characteristics: Described as a big cramp that holds and then relaxes, with pain being constant and not changing around menstrual cycles. - Aggravating Factors: Pain worsens during menstrual periods. - Alleviating Factors: Sometimes improves after a bowel movement. - Treatments Tried: Tylenol and ice packs with minimal relief. - Associated Symptoms: Constipation and diarrhea, with bowel movements being either very hard or very soft. - Recent Imaging: CT scan on April 11 showed a 2 cm ovarian cyst. concerned her medications are the cause of her pain Menstrual Irregularities - Menstrual Cycle: Irregular, occurring approximately every 30-60 days. - Duration: Varies from 2 to 4 days. - Flow: Variable, sometimes very heavy and other times very light. - Associated Symptoms: Reports hot flashes, leading a friend to suggest she might be in the early stages of menopause. - Previous Treatments: Tried different control pills without significant improvement. Hypertension - Current Medications: On multiple medications for blood pressure control. - Concerns: Patient expresses a desire to reduce the number of medications, suspecting they may be contributing to bowel issues. Diabetes - Management: Currently managed by her family doctor. - Last Android Ui Developer Visit: Several years ago. - Concerns: Struggling with blood sugar control. has not been taking any meds and BS have been very high Past Diagnostic Results: - CT Scan (April 11): Showed a 2 cm ovarian cyst. - Colonoscopy: Scheduled for May, along with stool sample testing. HISTORY: OB History Gravida5 Para4 Term4 Preterm0 AB1 Living4 SAB1 IAB0 Ectopic0 Multiple0 Live Births1 Electrical Design Technician History LMP: 04/15/2025 (Exact Date), Having periods Age at Menarche: Age at First : Age at Menopause: Electrical Design Technician History Comments: Sexual Activity: Yes; Male Contraception: Tubal Ligation PAST MEDICAL HISTORY Diagnosis Date Diabetes mellitus of mother, complicating , childbirth, or the puerperium, unspecified as to episode of care(648.00) Gestational diabetes Dysthymic disorder Depression (non-psychotic),postpar ashanti Essential hypertension, benign Hemorrhoids 05/19/2011 History of gestational diabetes 10/31/2012 10/31/2012Patient had gestational diabetes with her last 2 pregnancies. She was on glyburide with the that she delivered in 2009. She was insulin-dependent her last . She delivered both of those pregnancies in [place]. Patient is obese. 3 hour G TT ordered by Dr. Jennings. Migraine, unspecified, with intractable migraine, so stated, without mention of status migrainosus Migraine Nipple discharge 02/19/2016 PMH - PAST MEDICAL HISTORY OF DYSLEXIA PMH - PAST MEDICAL HISTORY OF 1989 FRACTURED LEFT LEG PMH - PAST MEDICAL HISTORY OF 01/2007 HOSPITALIZED FOR RUPTURED OVARIAN CYST Psychogenic nonepileptic seizure 10/20/2022 SPINAL HEADACHE WITH DELIVERIES IN Type 2 diabetes mellitus (HCC) Unspecified asthma(493.90) PAST SURGICAL HISTORY Procedure Laterality Date DELIVERY ONLY 2008,10/14/2009 , low cervicalx2 DELIVERY ONLY 06/06/2013 , low transverse COLONOSCOPY FLX DX W/COLLJ SPEC WHEN PFRMD 11/28/2013 Colonoscopy ESOPHAGOGASTRODUODENOSC OPY TRANSORAL DIAGNOSTIC 11/28/2013 EGD HYSTEROSCOPY BX W/WO DANDC 08/14/2019 hysteroscoy DANDC w/ mirena insertion LIG/TRNSXJ FLP TUBE ABDL/VAG APPR UNI/BI 06/06/2013 Tubal ligation REMOVAL OF GALLBLADDER 10/07/2018 [place] REPAIR UMBILICAL HERNIA 06/20/[address] medium mesh [facility] FAMILY HISTORY Problem Relation Age of Onset Hypertension Father Diabetes Father Lipids Father Asthma Mother Hypertension Mother Breast Cancer Mother Diabetes Mother Strabismus Sister Cancer Maternal Grandfather LUNG CANCER Heart Maternal Grandmother SD Cancer Paternal Grandfa (more content not included)... Normal [facility] Calprotectin stoolOrdered By : Lidia De Souza on 04-16-2025 Calprotectin stool 37 ug/g 0-120 [facility] Comment on above: Concentration Interp retation Follow-Up< 5 - 50 ug/g Normal None>50 -120 ug/g Borderline Re-evaluate in 4-6 weeks >120 ug/g Abnormal Repeat as clinically indicatedPerformed at: - [facility] [id number] Director: Geeta Gill MD, Phone: [phone] Clostridium difficile detect ion by polymerase chain reactionOrdered By: Lidia De Souza on 04-16-2025 C. difficile DNA TAMMY+probe Ql (Unsp spec) [facility] ENTERIC PATHOGEN PANEL STOOL on 04-16-2025 EP PANEL Normal Reference Ran ge = Not Detected Nucleic acid amplification test method Not detected for Campylobacter group, Salmonella species, Shigella species, Vibrio Group, Yersinia enterocolitica, EHEC (Shiga Toxin 1, Shiga Toxin 2), Norovirus Gl/Gll, and Rotavirus A. Other common stool pathogens are not detected on this panel include: Aeromonas/Plesiomonas or parasites. Order testing for these organisms separately if suspected. This is an amplified DNA test which makes it both specific and sensitive. CAMPYLOBACTER Not Detected Norovirus Not Detected Rotavirus Not Detected Salmonella Not Detected Shiga Toxin Not Detected Shigella sp. Not Detected VIBRIO Not Detected Yersinia Not Detected Normal [facility] Comment on above: Performed By: #### M 100.6796, L7000.0700, L7000.0750, M100.637 #### [facility] [address] [place], [place], [address] Stool pancreatic elastase me asurement (mass/mass)Ordered By: Lidia De Souza on 04-16-2025 Elastase.pancreatic (Stl) [Mass/Mass] > 800 >200 [facility] Comment on above: Result Units: ug Tejal st./g Severe Pancreatic Insufficiency: <100 Moderate Pancreatic Insufficiency: 100 - 200 Normal: >200Performed at: - [facility] [address] [id number] Director: Geeta Gill MD, Phone: [phone] CRPon 04-13-2025 C-REACTIVE PROT 5.39 mg/L High 0.0-3.0 [facility] Comment on above: Performed By: #### L 501.6710 ####[facility] [id number] [place], [place], [address] Gastroenterology Visit Repor ton 04-13-2025 Gastroenterology Visit Report [facility] [address] [place] [address] OFFICE VISIT Date of Service: 04/13/25 MR#: [id number] Acct: [id number] Name: REINALDO WARREN Rep #: [id number] : 1985 Provider: EZ mcrae Age/Sex: 40/F [facility] [facility] Status: Signed Intake Vital Signs 07/17/24 10:35 04/13/25 13:49 Height 5 ft 3 in 5 ft 3 in Weight: 199 lb 8 oz BMI 35.3 BP 147/90 H 152/105 H Blood Pressure Location Lt brachial Position Sitting Respiration 18 16 Pulse 120 H 86 Temp 98.7 F 98.2 F Temp Source Oral Temporal Pulse Oximetry (%) 98 98 Oxygen Delivery Method room air room air Intake Visit Reasons: ABDOMINAL CRAMPING DIARRHEA Chief Complaint: abdominal cramping and diarrhea Allergies amoxicillin (From Augmentin) Allergy (Unknown, Verified 02/23/25 06:59) unknown clavulanic acid (From Augmentin) Allergy (Unknown, Verified 02/23/25 06:59) unknown codeine phosphate (From Tylenol-Codeine #3) Allergy (Verified 02/23/25 06:59) Swelling shellfish derived Allergy (Verified 02/23/25 06:59) Swelling venom-honey bee (bee venom (honey bee)) Allergy (Verified 02/23/25 06:59) Angioedema Medications ???Medication ???Instructions ???Recorded ???Confirmed ???Type handicap placard #1 ea 12/18/22 04/13/25 Rx miscellaneous medical supply #1 ea 12/18/22 04/13/25 Rx (Blood Pressure Cuff) mirtazapine 15 mg tablet 15 mg PO QHS 05/09/24 04/13/25 His tory venlafaxine 150 mg 150 mg PO DAILY 05/09/24 04/13/25 History capsule,extended release 24 hr venlafaxine 37.5 mg 37.5 mg PO DAILY 05/09/24 04/13/25 History capsule,extended release 24 hr lisinopril 10 mg tablet 10 mg PO DAILY 30 days #30 tabs 04/13/25 Rx hydrocodone-acetaminoph en 5-325mg 1 tab PO Q4H PRN PRN Pain 2 days 07/15/24 04/13/25 Rx 5mg-325mg #15 TABLETS aripiprazole 15 mg tablet (Abilify) 15 mg PO QDAY 02/23/25 04/13/25 History atorvastatin 10 mg tablet (Lipitor) 10 mg PO QDAY 02/23/25 04/13/25 History gabapentin 100 mg capsule 100 mg PO Q8H PRN 02/23/25 5 History metoprolol succinate 25 mg 25 mg PO QDAY 02/23/25 04/13/25 Hi story tablet,extended release 24 hr pantoprazole 20 mg tablet,delayed 20 mg PO QDAY 02/23/25 04/13/25 H istory release trazodone 100 mg tablet 100 mg PO QHS PRN insomnia 5 04/13/25 History dicyclomine 10 mg capsule 10 mg PO TID PRN abdominal pain 04/13/25 Rx and cramping #60 caps peg 3350-sod sulf,yjhtq-ykz-fvq See Rx Instructions PO .COMPLEX #2 04/13/25 04/13/25 Rx 178.7-7.3-0.5-1.12-0.9 gram oral mL soln (Suflave) [facility] Medical History History of IBS History of anxiety History of depression History of asthma History of seasonal allergies Pott's disease Hypotension COVID-19 virus detected (02/12/21) History of syncope (08/2013) Asthma Dyslexia Migraine History of gestational diabetes Dysthymic disorder Essential hypertension Urinary tract infection Cervical paraspinal muscle spasm Depression Seizures Seizure disorder Type 2 diabetes mellitus Surgical History History of History of tubal ligation History of umbilical hernia repair History of cholecystectomy Family History (Updated 04/13/25 @ 13:53 by Lyndsay Tabor) Mother Asthma Hypertension Breast cancer Diabetes Father Diabetes Hypertension Hyperlipidemia Colon cancer on fathers side of the family Grandmother Myocardial infarction Grandfather Cancer Lung Grandfather Cancer Throat Aunt Breast cancer Social History Smoking Status: Former smoker how long ago did patient quit smokin years ago alcohol intake: never substance use type: does not use additional social history: denies vaping, denies marijuana use, denies edibles, uses ibuprofen and aspirin as needed HPI HPI Chief Complaint: abdominal cramping and diarrhea Details: REINALDO WARREN, is a 40 F who presents to the office today for - abdominal cramping and diarrhea - stool alternate between formed and loose, can be hard - seen in ER for cramping abdominal pain - reports when cramping is severe she has tiny stools like mice poop - can have episodes of fecal incontinence - ER at 04/11/2025 - reports a couple years ago she had abdominal swelling with OG tube placement - reports a history hemorrhoids and anal fissure, minimal BRBPR - she is uncertain if and when she had a colonoscopy - ketorlac 10mg once daily Q6H for 5 days - Pantoprazole 20mg QD - does not have a list of her meds with her, not really sure what all she is taking (more content not included)... Normal [facility] Serum or plasma C reactive p rotein measurement (mass/volume)Ordered By: Lidia De Souza on 04-13-2025 CRP [Mass/Vol] 5.39 mg/L High 0.0-3.[address] [facility] [address] HEAD OR BRAIN WITHOUT CON TRASTon 04-12-2025 CT HEAD OR BRAIN WITHOUT CONTRAST EXAMINATION: CT HEAD OR BRAIN WITHOUT CONTRAST HISTORY: Head injury Injury/Trauma or Illness?:Injury/Trauma How long have you had these symptoms (acute/chronic)?:Acute Reason for exam?:Head injury Type of Exam?:Initial Mechanism of injury?:Syncope R06.4 Hyperventilation COMPARISON: None TECHNIQUE: Axial noncontrast CT imaging of the head was performed with coronal and sagittal reformats. Dose reduction techniques were achieved by using automated exposure control and/or adjustment of mA and/or kV according to patient size and/or use of iterative reconstruction technique. FINDINGS: Calvarium/skull base: No evidence of acute fracture or destructive lesion.Mastoids and middle ears demonstrate no substantial mucosal disease. Paranasal sinuses:No air fluid levels. Brain: No acute intracranial hemorrhage. No acute large vascular territory infarct. No mass lesion or mass effect.No hydrocephalus. IMPRESSION: No acute intracranial process. Workstation ID: [id number] Dictated by: JOJO CARNEY on SunApr 12, 2025 1:42:36 PM EDT Transcribed by: JOJO CARNEY on SunApr 12, 2025 1:42:36 PM EDT Finalized by: JOJO CARNEY on SunApr 12, 2025 1:42:36 PM EDT [facility] Comment on above: Order Comment: Injur y/Trauma or Illness?:Injury/Trauma How long have you had these symptoms (acute/chronic)?:Acute Reason for exam?:Head injury Type of Exam?:Initial Mechanism of injury?:Syncope ED Prov Noteon 04-12-2025 ED Prov Note ED PROVIDER NOTE [facility] EMERGENCY [facility] NAME: Charleen Warren AGE: 40 y.o. : 1985 VISIT DATE: 04/12/2025 CSN: [id number] PCP: No, Physician Chief Complaint Patient presents with Syncope Patient is a 40-year-old female with a significant past medical history of anxiety presents today for concern of hyperventilation and syncope. Patient states she is at work today when she is learning new job which is causing her a lot of stress. Patient missed her previous history of hyperventilation followed by syncope in the past. Patient states today she was having extreme anxiety and hyperventilating went to the bathroom and was hyperventilating and passed out transiently and was found on the floor. Patient denies any known head or neck or musculoskeletal pain. Patient denies any preceding chest pain, shortness of breath, DVT/PE, lightheadedness, dizziness or syncope. Patient states she is feeling much better and endorses generalized fogginess but denies any headaches,lightheadedne ss, dysarthria, dysphagia, ataxia or additional focal neurological deficit. Patient has additional constitutional symptoms. No past medical history on file. No past surgical history on file. No family history on file. Social History [1] No current outpatient medications on file prior to encounter. Allergies[2] Review of Systems Constitutional: Negative for chills and fever. Eyes: Negative for pain. Respiratory: Negative for cough, chest tightness and shortness of breath. Cardiovascular: Negative for chest pain and palpitations. Gastrointestinal: Negative for abdominal pain, nausea and vomiting. Genitourinary: Negative for flank pain. Musculoskeletal: Negative for arthralgias and myalgias. Skin: Negative for rash. Neurological: Positive for syncope. Negative for dizziness, light-headedness and headaches. Psychiatric/Behavioral: Negative for agitation. The patient is nervous/anxious. All other systems reviewed and are negative. Patient Vitals for the past 24 hrs: BP Temp Temp src Pulse Resp SpO2 Height Weight 04/12/25 1300 (!) 152/94 98.3 degrees F (36.8 degrees C) Temporal 89 18 98 % 5' 3 131.5 kg (290 lb) Physical Exam Vitals and nursing note reviewed. Constitutional: Appearance: Normal appearance. HENT: Head: Normocephalic and atraumatic. Comments: Stable midface with no malocclusion of jaw. No raccoon eyes or King sign. No nasal septal hematoma. Eyes: Pupils: Pupils are equal, round, and reactive to light. Cardiovascular: Rate and Rhythm: Normal rate and regular rhythm. Pulses: Normal pulses. Heart sounds: Normal heart sounds. Musculoskeletal: Cervical back: Normal range of motion. Comments: No midline spinal canal tenderness or gross deformity. Stable pelvis. No bony tenderness of the extremities. Pulmonary: Effort: Pulmonary effort is normal. Breath sounds: Normal breath sounds. Abdominal: General: Abdomen is flat. Bowel sounds are normal. Skin: General: Skin is warm. Capillary Refill: Capillary refill takes less than 2 seconds. Neurological: General: No focal deficit present. Mental Status: She is alert and oriented to person, place, and time. Cranial Nerves: No cranial nerve deficit. Sensory: No sensory deficit. Motor: No weakness. Coordination: Coordination normal. Gait: Gait normal. Psychiatric: Mood and Affect: Mood normal. Laboratory & Radiographic Imaging (if done): Results for orders placed or performed during the hospital encounter of 04/12/25 POC CBC and Differential Result Value Ref Range WBC 5.54 4.50 - 11.00 K/mcL RBC 3.69 (L) 4.00 - 5.20 M/mcL Hemoglobin 11.7 (L) 12.0 - 16.0 g/dL Hematocrit 32.6 (L) 36.0 - 46.0 % MCV 88.3 80.0 - 100.0 fL MCH 31.7 26.0 - 34.0 pg MCHC 35.9 31.0 - 37.0 g/dL RDW - CV 15.1 (H) 11.6 - 14.8 % Platelets 209 150 - 400 K/mcL MPV 10.0 9.4 - 12.4 fL Neutrophils 66.7 % Lymphocytes 23.3 % Monocytes 7.2 % Eosinophils 0.2 % Basophils 0.4 % IG Percent 2.20 % Neutrophils Abs 3.70 1.70 - 7.00 K/mcL Lymphocytes Abs 1.29 0.90 - 4.00 K/mcL Monocytes Abs 0.40 0.30 - 0.90 K/mcL Eosinophils Abs 0.01 0.00 - 0.50 K/mcL Basophils Abs 0.02 0.00 - 0.30 K/mcL IG Absolute 0.12 0.00 - 0.30 K/mcL POC Glucose Result Value Ref Range Glucose 318 (H) 65 - 99 mg/dL POC Basic Metabolic Panel Result Value Ref Range Glucose 362 (H) 65 - 99 mg/dL BUN 5 (L) 8 - 25 mg/dL Creatinine 0.55 0.40 - 1.10 mg/dL GFR 119 >=60 mL/min/1.73 m2 Sodium 135 135 - 145 mmol/L Potassium 4.1 3.5 - 5.1 mmol/L Chloride 101 98 - 108 mmol/L TCO2 21 21 - 32 mmol/L Ionized Calcium 4.9 4.5 - 5.3 mg/dL POC D-dimer Result Value Ref Range POC D-Dimer 231 <350 ng/mL DDU POC Troponin I Result Value Ref Range Troponin I <0.05 <0.05 ng/mL CT Head Or Brain Without Contrast Final Result No acute intracranial process. Workstation ID: [id number] XR Chest 1 View Final Result F (more content not included)... Normal [facility] Chloride [Moles/Vol] 101 mmol/L Normal 98-108 [facility] Comment on above: Order Comment: [facility] has implemented the eGFR calculation approach that does not have a coefficient for race that conforms to the NKF-ASN Task Force Recommendations. CO2 [Moles/Vol] 21 mmol/L Normal 21-32 [facility] Comment on above: Order Comment: [facility] has implemented the eGFR calculation approach that does not have a coefficient for race that conforms to the NKF-ASN Task Force Recommendations. Creatinine [Mass/Vol] 0.55 mg/dL Normal 0.40-1.10 [facility] Comment on above: Order Comment: [facility] has implemented the eGFR calculation approach that does not have a coefficient for race that conforms to the NKF-ASN Task Force Recommendations. Glucose [Mass/Vol] 362 mg/dL High 65-99 [facility] Comment on above: Order Comment: [facility] has implemented the eGFR calculation approach that does not have a coefficient for race that conforms to the NKF-ASN Task Force Recommendations. POC GFR 119 mL/min/1.73 m2 Normal >=60 [facility] Comment on above: Order Comment: [facility] has implemented the eGFR calculation approach that does not have a coefficient for race that conforms to the NKF-ASN Task Force Recommendations. Result Comment: Kayleigh mated GFR was calculated using the 2020 CKD-EPI creatinine equation. POC IONIZED CALCIUM 4.9 mg/dL Normal 4.5-5.3 [facility] Comment on above: Order Comment: [facility] has implemented the eGFR calculation approach that does not have a coefficient for race that conforms to the NKF-ASN Task Force Recommendations. Potassium [Moles/Vol] 4.1 mmol/L Normal 3.5-5.1 [facility] Comment on above: Order Comment: [facility] has implemented the eGFR calculation approach that does not have a coefficient for race that conforms to the NKF-ASN Task Force Recommendations. Sodium [Moles/Vol] 135 mmol/L Normal 135-145 [facility] Comment on above: Order Comment: [facility] has implemented the eGFR calculation approach that does not have a coefficient for race that conforms to the NKF-ASN Task Force Recommendations. Urea nitrogen [Mass/Vol] 5 mg/dL Low 8-25 [facility] Comment on above: Order Comment: [facility] has implemented the eGFR calculation approach that does not have a coefficient for race that conforms to the NKF-ASN Task Force Recommendations. POC CBC AND DIFFERENTIALon 0 04-12-2025 BASOPHILS ABSOLUTE COUNT 0.02 K/mcL Normal 0.00-0.30 [facility] Basophils/100 WBC (Bld) 0.4 % Normal [facility] Eosinophils (Bld) [#/Vol] 0.01 10*3/uL Normal 0.00-0.50 [facility] Eosinophils/100 WBC (Bld) 0.2 % Normal [facility] Erythrocyte distribution width (RBC) [Ratio] 15.1 % High 11.6-14.8 [facility] Hematocrit (Bld) [Volume fraction] 32.6 % Low 36.0-46.0 [facility] Hemoglobin (Bld) [Mass/Vol] 11.7 g/dL Low 12.0-16.0 [facility] IG ABSOLUTE 0.12 K/mcL Normal 0.00-0.30 [facility] IG PERCENT 2.20 % Normal [facility] Comment on above: Result Comment: The IG parameter is the percentage of metamyelocytes, myelocytes and promyelocytes. An immature granulocyte count (IG) of 1% or more suggests the possibility of infection, an IG count of 3% is very likely related to an infection. Lymphocytes (Bld) [#/Vol] 1.29 10*3/uL Normal 0.90-4.00 [facility] Lymphocytes/100 WBC (Bld) 23.3 % Normal [facility] MCH (RBC) [Entitic mass] 31.7 pg Normal 26.0-34.0 [facility] MCV (RBC) [Entitic vol] 88.3 fL Normal 80.0-100.0 [facility] MEAN CORPUSCULAR HEMOGLOBIN CONC 35.9 g/dL Normal 31.0-37.0 [facility] Monocytes (Bld) [#/Vol] 0.40 10*3/uL Normal 0.30-0.90 [facility] Monocytes/100 WBC (Bld) 7.2 % Normal [facility] NEUTROPHILS ABSOLUTE COUNT 3.70 K/mcL Normal 1.70-7.00 [facility] Neutrophils/100 WBC (Bld) 66.7 % Normal [facility] Platelet mean volume (Bld) [Entitic vol] 10.0 fL Normal 9.4-12.4 [facility] Platelets (Bld) [#/Vol] 209 10*3/uL Normal 150-400 [facility] RBC (Bld) [#/Vol] 3.69 10*6/uL Low 4.00-5.20 [facility] WBC (Bld) [#/Vol] 5.54 10*3/uL Normal 4.50-11.00 [facility] POC D-DIMER JORGE L[facility] 5 POC D-DIMER 231 ng/mL DDU Normal <350 [facility] Comment on above: Order Comment: A D-D juan ramon concentration of <350 ng/mL DDU is considered a low probability for pulmonary embolism (PE) and deep venous thrombosis (DVT). Results of this test should always be interpreted in conjunction with the patient's medical history, clinical presentation, and other findings. Clinical diagnosis should not be based on the results of the D-dimer alone. The above D-dimer cutoff pertains to its use for the exclusion of DVT or PE. The range associated with other clinical conditions (e.g. sepsis) has not been validated for this method. 90% of normal patients are less than 400 ng/ml. POC GLUCOSE - [facility] 025 Glucose [Mass/Vol] 318 mg/dL High 65-99 [facility] POC TROPONIN I [facility] 2024 POC TROPONIN I < Normal <0.05 [facility] XR CHEST PA/APon 04-12-2025 XR CHEST PA/AP EXAMINATION: XR CHEST PA/AP HISTORY: Syncope COMPARISON: None IMPRESSION: FINDINGS/ 1. Lungs are clear. 2. No pneumothorax. No pleural effusion. 3. Heart size and mediastinal contours are normal. 4. No acute osseous abnormality. 5. Upper abdominal bowel gas pattern is nonspecific and nonobstructive. Workstation ID: [id number] Dictated by: SHANTELL BILL on [place] Apr 12, 2025 1:39:15 PM EDT Transcribed by: SHANTELL BILL on [place] Apr 12, 2025 1:39:15 PM EDT Finalized by: SHANTELL BILL on [place] Apr 12, 2025 1:39:15 PM EDT [facility] Comment on above: Order Comment: Injur y/Trauma or Illness?:Illness/Other How long have you had these symptoms (acute/chronic)?:Acute Reason for exam?:syncope History of cancer?:n Surgeries, chemotherapy, or radiation?:n Type of Exam?:Initial Additional signs and symptoms?:none CT ABDOMEN PELVIS W IV CONTR Lacey 04-11-2025 CT ABDOMEN PELVIS W IV CONTRAST Interpreted By: Jean Carlos Norris, STUDY: CT ABDOMEN PELVIS W IV CONTRAST; 04/11/2025 12:48 am INDICATION: Signs/Symptoms:pain. COMPARISON: None. ACCESSION NUMBER(S): [id number] ORDERING CLINICIAN: ANIA URIARTE TECHNIQUE: Contiguous axial images of the abdomen and pelvis were obtained after the intravenous administration of contrast. Coronal and sagittal reformatted images were obtained from the axial images. FINDINGS: There is limited evaluation the lung bases. Mild basilar atelectasis. No evidence of liver mass. Postsurgical change of cholecystectomy. No dilatation of common bile duct. The pancreas and adrenal glands appear unremarkable. Splenomegaly and calcified granuloma in the spleen. Symmetric enhancement of the kidneys. No hydronephrosis. No evidence of bowel obstruction or acute appendicitis. Mildly prominent mesenteric lymph nodes. Urinary bladder is underdistended and not well evaluated. Limited evaluation of the uterus and adnexa. 2.2 cm involuting right ovarian cyst and small amount of free fluid in the pelvis. No acute fracture of the lumbar spine. IMPRESSION: Mild splenomegaly; please clinically correlate. Mildly prominent mesenteric lymph nodes may be reactive in nature; clinical correlation is recommended.. Postsurgical change of prior cholecystectomy. No evidence of bowel obstruction or acute appendicitis. 2.2 cm involuting right ovarian cyst and small amount of free fluid in the pelvis. MACRO: None Signed by: Jean Carlos Norris 04/11/2025 1:11 AM Dictation workstation: [id number] [facility] CT Abdomen and Pelvis W cont rast [place] 04-11-2025 Mild splenomegaly; please clinically correlate. Mildly prominent mesenteric lymph nodes may be reactive in nature; clinical correlation is recommended.. Postsurgical change of prior cholecystectomy. No evidence of bowel obstruction or acute appendicitis. 2.2 cm involuting right ovarian cyst and small amount of free fluid in the pelvis. MACRO: None Signed by: Jean Carlos Norris 04/11/2025 1:11 AM Dictation workstation: [id number] [facility] Interpreted By: Jean Carlos Norris, STUDY: CT ABDOMEN PELVIS W IV CONTRAST; 04/11/2025 12:48 am INDICATION: Signs/Symptoms:pain. COMPARISON: None. ACCESSION NUMBER(S): [id number] ORDERING CLINICIAN: ANIA URIARTE TECHNIQUE: Contiguous axial images of the abdomen and pelvis were obtained after the intravenous administration of contrast. Coronal and sagittal reformatted images were obtained from the axial images. FINDINGS: There is limited evaluation the lung bases. Mild basilar atelectasis. No evidence of liver mass. Postsurgical change of cholecystectomy. No dilatation of common bile duct. The pancreas and adrenal glands appear unremarkable. Splenomegaly and calcified granuloma in the spleen. Symmetric enhancement of the kidneys. No hydronephrosis. No evidence of bowel obstruction or acute appendicitis. Mildly prominent mesenteric lymph nodes. Urinary bladder is underdistended and not well evaluated. Limited evaluation of the uterus and adnexa. 2.2 cm involuting right ovarian cyst and small amount of free fluid in the pelvis. No acute fracture of the lumbar spine. [facility] Jean Carlos Norris MD - 04/11/2025 Interpreted By: Jean Carlos Norris, STUDY: CT ABDOMEN PELVIS W IV CONTRAST; 04/11/2025 12:48 am INDICATION: Signs/Symptoms:pain. COMPARISON: None. ACCESSION NUMBER(S): [id number] ORDERING CLINICIAN: ANIA URIARTE TECHNIQUE: Contiguous axial images of the abdomen and pelvis were obtained after the intravenous administration of contrast. Coronal and sagittal reformatted images were obtained from the axial images. FINDINGS: There is limited evaluation the lung bases. Mild basilar atelectasis. No evidence of liver mass. Postsurgical change of cholecystectomy. No dilatation of common bile duct. The pancreas and adrenal glands appear unremarkable. Splenomegaly and calcified granuloma in the spleen. Symmetric enhancement of the kidneys. No hydronephrosis. No evidence of bowel obstruction or acute appendicitis. Mildly prominent mesenteric lymph nodes. Urinary bladder is underdistended and not well evaluated. Limited evaluation of the uterus and adnexa. 2.2 cm involuting right ovarian cyst and small amount of free fluid in the pelvis. No acute fracture of the lumbar spine. IMPRESSION: Mild splenomegaly; please clinically correlate. Mildly prominent mesenteric lymph nodes may be reactive in nature; clinical correlation is recommended.. Postsurgical change of prior cholecystectomy. No evidence of bowel obstruction or acute appendicitis. 2.2 cm involuting right ovarian cyst and small amount of free fluid in the pelvis. MACRO: None Signed by: Jean Carlos Norris 04/11/2025 1:11 AM Dictation workstation: [id number] [facility] Work Phone: Radiology Study observation (narrative) [facility] Work Phone: CT Abdomen and Pelvis W cont rast IVOrdered By: Jean Carlos Norris on 04-11-2025 [facility] Work Phone: Comprehensive metabolic 2000 panelon 04-11-2025 Albumin BCP dye [Mass/Vol] 4 g/dL 3.4 - 5.0 g/dL [facility] ALP [Catalytic activity/Vol] 74 U/L 33 - 110 U/L [facility] ALT With P-5'-P [Catalytic activity/Vol] 18 U/L 7 - 45 U/L [facility] Comment on above: Patients treated wit h Sulfasalazine may generate falsely decreased results for ALT. Anion gap [Moles/Vol] 10 mmol/L 10 - 2 0 mmol/L [facility] AST With P-5'-P [Catalytic activity/Vol] 17 U/L 9 - 39 U/L [facility] Bilirubin [Mass/Vol] 1.3 mg/dL High 0.0 - 1 .2 mg/dL [facility] Calcium [Mass/Vol] 9 mg/dL 8.6 - 10. 3 mg/dL [facility] Chloride [Moles/Vol] 104 mmol/L 98 - 10 7 mmol/L [facility] CO2 [Moles/Vol] 25 mmol/L 21 - 32 mmol/L [facility] Creatinine [Mass/Vol] 0.59 mg/dL 0.50 - 1.05 mg/dL [facility] eGFR - PINF [facility] Comment on above: Calculations of kayleigh mated GFR are performed using the 2020 CKD-EPI Study Refit equation without the race variable for the IDMS-Traceable creatinine methods. https://jasn.asnjournals.org/content//ASN.698043 5360 Glucose [Mass/Vol] 272 mg/dL High 74 - 99 mg/dL [facility] Interpretation and review of laboratory results Abnormal [facility] Potassium [Moles/Vol] 3.9 mmol/L 3.5 - 5.3 mmol/L [facility] Protein [Mass/Vol] 6.2 g/dL Low 6.4 - 8.2 g/dL [facility] Sodium [Moles/Vol] 135 mmol/L Low 136 - 145 mmol/L [facility] Urea nitrogen [Mass/Vol] 8 mg/dL 6 - 23 mg/dL [facility] Lactateon 04-11-2025 Lactate [Moles/Vol] 1.4 mmol/L 0.4 - 2. 0 mmol/L [facility] Lactate [Moles/Vol]on 2024 Interpretation and review of laboratory results Normal [facility] Venipuncture immediately after or during the administration of Metamizole may lead to falsely low results. Testing should be performed immediately prior to Metamizole dosing. [facility] Lipaseon 04-11-2025 Lipase [Catalytic activity/Vol] 39 U/L 9 - 82 U/L [facility] Lipase [Catalytic activity/V ol]on 04-11-2025 Venipuncture immediately after or during the administration of Metamizole may lead to falsely low results. Testing should be performed immediately prior to Metamizole dosing. [facility] Magnesiumon 04-11-2025 Magnesium [Mass/Vol] 1.96 mg/dL 1.60 - 2.40 mg/dL [facility] No Panel Informationon 04-11 Interpretation and review of laboratory results Normal [facility] Urinalysis complete W Reflex Culture panel (U)Ordered By: Telma Feliciano on 04-11-2025 Appearance (U) Clear Clear [facility] Bilirubin (U) [Mass/Vol] Negative NEGATIVE mg/dL [facility] Color (U) Light-Yellow Light-Yellow , Yellow, Dark-Yellow [facility] Glucose Auto test strip (U) [Mass/Vol] OVER (4+) Abnormal Normal mg/dL [facility] Interpretation and review of laboratory results Abnormal [facility] Ketones (U) [Mass/Vol] Negative NEGATIVE mg/dL [facility] Leukocyte esterase Auto test strip Ql (U) Negative NEGATIVE [facility] Nitrite Auto test strip Ql (U) Negative NEGATIVE [facility] pH (U) 6.5 [pH] 5.0, 5.5, 6.0, 6.5, 7.0, 7.5, 8.0 [facility] Protein (U) [Mass/Vol] Negative NEGATIVE, 10 (TRACE), 20 (TRACE) mg/dL [facility] RBC (U) [#/Vol] Negative NEGATIVE mg/dL [facility] Specific gravity (U) [Rel density] 1.041 Abnormal 1.005 - 1.035 [facility] Urobilinogen (U) [Mass/Vol] Normal Normal mg/dL [facility] OVER is reported whe n the result is greater than the clinically reportable range. [facility] Urinalysis complete W Reflex Culture panel (U)on 04-11-2025 Appearance (U) Clear Normal Clear [facility] Comment on above: Order Comment: OVER is reported when the result is greater than the clinically reportable range. Performed By: #### 5 [id number] ####FELIPA LEIWS ([id number])[facility] ([facility])[address] [place] [id number] Bilirubin (U) [Mass/Vol] Negative Normal NEGATIVE [facility] Comment on above: Order Comment: OVER is reported when the result is greater than the clinically reportable range. Performed By: #### 5 [id number] ####FELIPA LEWIS ([id number])[facility] ([facility])[address] [place] [id number] Color (U) Light-Yellow Normal Light-Yellow , Yellow, Dark-Yellow [facility] Comment on above: Order Comment: OVER is reported when the result is greater than the clinically reportable range. Performed By: #### 5 [id number] ####FELIPA LEWIS ([id number])[facility] ([facility])[address] [place] [address] [id number] Glucose Auto test strip (U) [Mass/Vol] OVER (4+) Abnormal Normal [facility] Comment on above: Order Comment: OVER is reported when the result is greater than the clinically reportable range. Performed By: #### 5 [id number] ####FELIPA LEWIS ([id number])[facility] ([facility])[address] [place] [id number] Ketones (U) [Mass/Vol] Negative Normal NEGATIVE [facility] Comment on above: Order Comment: OVER is reported when the result is greater than the clinically reportable range. Performed By: #### 5 [id number] ####FELIPA LEWIS ([id number])[facility] ([facility])[address] [place] [address] [id number] Leukocyte esterase Auto test strip Ql (U) Negative Normal NEGATIVE [facility] Comment on above: Order Comment: OVER is reported when the result is greater than the clinically reportable range. Performed By: #### 5 [id number] ####FELIPA LEWIS ([id number])[facility] ([facility])[address] [place] [address] [phone] Nitrite Auto test strip Ql (U) Negative Normal NEGATIVE [facility] Comment on above: Order Comment: OVER is reported when the result is greater than the clinically reportable range. Performed By: #### 5 [id number] ####FELIPA LEWIS ([id number])[facility] ([facility])[address] [place] [address] [id number] pH (U) 6.5 [pH] Normal 5.0, 5.5, 6.0, 6.5, 7.0, 7.5, 8.0 [facility] Comment on above: Order Comment: OVER is reported when the result is greater than the clinically reportable range. Performed By: #### 5 [id number] ####FELIPA LEWIS ([id number])[facility] ([facility])[address] [place] [address] [id number] Protein (U) [Mass/Vol] Negative Normal NEGATIVE, 10 (TRACE), 20 (TRACE) [facility] Comment on above: Order Comment: OVER is reported when the result is greater than the clinically reportable range. Performed By: #### 5 8077-9 ####FELIPA LEWIS ([id number])[facility] ([facility])[address] [place] [address] 60397 RBC (U) [#/Vol] Negative Normal NEGATIVE [facility] Comment on above: Order Comment: OVER is reported when the result is greater than the clinically reportable range. Performed By: #### 5 8077-9 ####FELIPA LEWIS ([id number])[facility] ([facility])[address] [place] [address] 03205 Specific gravity (U) [Rel density] 1.041 Normal 1.005-1.035 [facility] Comment on above: Order Comment: OVER is reported when the result is greater than the clinically reportable range. Performed By: #### 5 8077-9 ####FELIPA LEWIS ([id number])[facility] ([facility])[address] [place], [place] [address] Urobilinogen (U) [Mass/Vol] Normal Normal Normal [facility] Comment on above: Order Comment: OVER is reported when the result is greater than the clinically reportable range. Performed By: #### 5 8077-9 ####FELIPA LEWIS ([id number])[facility] ([facility])[address] [place], [place] [address] CBC W Auto Differential pane l (Bld)on 04-10-2025 Basophils (Bld) [#/Vol] 0.02 10*3/uL [facility] Basophils/100 WBC (Bld) 0.4 % 0.0 - 2.0 % [facility] Eosinophils (Bld) [#/Vol] 0.03 10*3/uL [facility] Eosinophils/100 WBC (Bld) 0.6 % 0.0 - 6.0 % [facility] Erythrocyte distribution width (RBC) [Ratio] 15 % High 11.5 - 14.5 % [facility] Hematocrit (Bld) [Volume fraction] 34.2 % Low 36.0 - 46.0 % [facility] Hemoglobin (Bld) [Mass/Vol] 11.9 g/dL Low 12.0 - 16.0 g/dL [facility] Immature granulocytes (Bld) [#/Vol] 0.08 10*3/uL [facility] Immature granulocytes/100 WBC (Bld) 1.6 % High 0.0 - 0.9 % [facility] Comment on above: Immature Granulocyte Count (IG) includes promyelocytes, myelocytes and metamyelocytes but does not include bands. Percent differential counts (%) should be interpreted in the context of the absolute cell counts (cells/UL). Interpretation and review of laboratory results Abnormal [facility] Lymphocytes (Bld) [#/Vol] 1.58 10*3/uL [facility] Lymphocytes/100 WBC (Bld) 32.2 % 13.0 - 44.0 % [facility] MCH (RBC) [Entitic mass] 30.5 pg 26.0 - 34.0 pg [facility] MCHC (RBC) [Mass/Vol] 34.8 g/dL 32.0 - 36.0 g/dL [facility] MCV (RBC) [Entitic vol] 88 fL 80 - 100 fL [facility] Monocytes (Bld) [#/Vol] 0.41 10*3/uL [facility] Monocytes/100 WBC (Bld) 8.4 % 2.0 - 10.0 % [facility] Neutrophils (Bld) [#/Vol] 2.78 10*3/uL [facility] Comment on above: Percent differential counts (%) should be interpreted in the context of the absolute cell counts (cells/uL). Neutrophils/100 WBC (Bld) 56.8 % 40.0 - 80.0 % [facility] Nucleated RBC/100 WBC (Bld) [Ratio] 0 % [facility] Platelets (Bld) [#/Vol] 196 10*3/uL [facility] RBC (Bld) [#/Vol] 3.9 10*6/uL Low [facility] WBC (Bld) [#/Vol] 4.9 10*3/uL [facility] Basophils (Bld) [#/Vol] 0.02 x10*3/uL Normal 0.00-0.10 [facility] Comment on above: Performed By: #### 8 9577-1 #### FELIPA LEWIS ([id number]) [facility] ([facility]) [address] [place] [address] 12017 Basophils/100 WBC (Bld) 0.4 % Normal 0.0-2.0 [facility] Comment on above: Performed By: #### 8 9577-1 #### FELIPA LEWIS ([id number]) [facility] ([facility]) [address] [place] [address] 33448 Eosinophils (Bld) [#/Vol] 0.03 x10*3/uL Normal 0.00-0.70 [facility] Comment on above: Performed By: #### 8 9577-1 #### FELIPA LEWIS ([id number]) [facility] ([facility]) [address] [place] [address] 38053 Eosinophils/100 WBC (Bld) 0.6 % Normal 0.0-6.0 [facility] Comment on above: Performed By: #### 8 9577-1 #### FELIPA LEWIS ([id number]) [facility] ([facility]) [address] [place] [address] 87718 Erythrocyte distribution width (RBC) [Ratio] 15.0 % High 11.5-14.5 [facility] Comment on above: Performed By: #### 8 9577-1 #### FELIPA LEWIS ([id number]) [facility] ([facility]) [address] [place], [place] [id number] Hematocrit (Bld) [Volume fraction] 34.2 % Low 36.0-46.0 [facility] Comment on above: Performed By: #### 8 9577-1 #### FELIPA LEWIS ([id number]) [facility] ([facility]) [address] [place] [address] 83277 Hemoglobin (Bld) [Mass/Vol] 11.9 g/dL Low 12.0-16.0 [facility] Comment on above: Performed By: #### 8 9577-1 #### FELIPA LEWIS ([id number]) [facility] ([facility]) [address] [place] [address] 99074 Immature granulocytes (Bld) [#/Vol] 0.08 x10*3/uL Normal 0.00-0.70 [facility] Comment on above: Performed By: #### 8 9577-1 #### FELIPA LEWIS ([id number]) [facility] ([facility]) [address] [place] [address] 91245 Immature granulocytes/100 WBC (Bld) 1.6 % High 0.0-0.9 [facility] Comment on above: Result Comment: Felisa ture Granulocyte Count (IG) includes promyelocytes, myelocytes and metamyelocytes but does not include bands. Percent differential counts (%) should be interpreted in the context of the absolute cell counts (cells/UL). Performed By: #### 8 9577-1 #### FELIPA LEWIS ([id number]) [facility] ([facility]) [address] [place] [address] 70245 Lymphocytes (Bld) [#/Vol] 1.58 x10*3/uL Normal 1.20-4.80 [facility] Comment on above: Performed By: #### 8 9577-1 #### FELIPA LEWIS ([id number]) [facility] ([facility]) [address] [place] [address] 53087 Lymphocytes/100 WBC (Bld) 32.2 % Normal 13.0-44.0 [facility] Comment on above: Performed By: #### 8 9577-1 #### FELIPA LEWIS ([id number]) [facility] ([facility]) [address] [place] [address] 76366 MCH (RBC) [Entitic mass] 30.5 pg Normal 26.0-34.0 [facility] Comment on above: Performed By: #### 8 9577-1 #### FELIPA LEWIS ([id number]) [facility] ([facility]) [address] [place] [address] 27892 MCHC (RBC) [Mass/Vol] 34.8 g/dL Normal 32.0-36.0 [facility] Comment on above: Performed By: #### 8 9577-1 #### FELIPA LEWIS ([id number]) [facility] ([facility]) [address] [place] [address] 15778 MCV (RBC) [Entitic vol] 88 fL Normal 80-100 [facility] Comment on above: Performed By: #### 8 9577-1 #### FELIPA LEWIS ([id number]) [facility] ([facility]) [address] [place] [address] 28118 Monocytes (Bld) [#/Vol] 0.41 x10*3/uL Normal 0.10-1.00 [facility] Comment on above: Performed By: #### 8 9577-1 #### FELIPA LEWIS ([id number]) [facility] ([facility]) [address] [place] [address] 16336 Monocytes/100 WBC (Bld) 8.4 % Normal 2.0-10.0 [facility] Comment on above: Performed By: #### 8 9577-1 #### FELIPA LEWIS ([id number]) [facility] ([facility]) [address] [place] [address] 75736 Neutrophils (Bld) [#/Vol] 2.78 x10*3/uL Normal 1.20-7.70 [facility] Comment on above: Result Comment: Perc ent differential counts (%) should be interpreted in the context of the absolute cell counts (cells/uL). Performed By: #### 8 9577-1 #### FELIPA LEWIS ([id number]) [facility] ([facility]) [address] [place] [address] 63668 Neutrophils/100 WBC (Bld) 56.8 % Normal 40.0-80.0 [facility] Comment on above: Performed By: #### 8 9577-1 #### FELIPA LEWIS ([id number]) [facility] ([facility]) [address] [place] [address] 47187 Nucleated RBC/100 WBC (Bld) [Ratio] 0.0 /100 WBCs Normal 0.0-0.0 [facility] Comment on above: Performed By: #### 8 9577-1 #### FELIPA LEWIS ([id number]) [facility] ([facility]) [address] [place] [address] 00852 Platelets (Bld) [#/Vol] 196 x10*3/uL Normal 150-450 [facility] Comment on above: Performed By: #### 8 9577-1 #### FELIPA LEWIS ([id number]) [facility] ([facility]) [address] [place] [address] 28607 RBC (Bld) [#/Vol] 3.90 x10*6/uL Low 4.00-5.20 [facility] Comment on above: Performed By: #### 8 9577-1 #### FELIPA LEWIS ([id number]) [facility] ([facility]) [address] [place] [address] WBC (Bld) [#/Vol] 4.9 x10*3/uL Normal 4.4-11.3 [facility] Comment on above: Performed By: #### 8 9577-1 #### FELIPA LEWIS ([id number]) [facility] ([facility]) [address] [place] [address] Comprehensive metabolic 2000 panelon 04-10-2025 Albumin BCP dye [Mass/Vol] 4.0 g/dL Normal 3.4-5.0 [facility] Comment on above: Performed By: #### 2 4323-8 ####FELIPA LEWIS ([id number])[facility] ([facility])[address] [place] [address] ALP [Catalytic activity/Vol] 74 U/L Normal 33-110 [facility] Comment on above: Performed By: #### 2 4323-8 ####FELIPA LEWIS ([id number])[facility] ([facility])[address] [place] [address] ALT With P-5'-P [Catalytic activity/Vol] 18 U/L Normal 7-45 [facility] Comment on above: Result Comment: Renetta ents treated with Sulfasalazine may generate falsely decreased results for ALT. Performed By: #### 2 4323-8 ####FELIPA LEWIS ([id number])[facility] ([facility])[address] [place] [address] Anion gap [Moles/Vol] 10 mmol/L Normal 10-20 [facility] Comment on above: Performed By: #### 2 4323-8 ####FELIPA LEWIS ([id number])[facility] ([facility])[address] [place] [address] AST With P-5'-P [Catalytic activity/Vol] 17 U/L Normal 9-39 [facility] Comment on above: Performed By: #### 2 4323-8 ####FELIPA LEWIS ([id number])[facility] ([facility])[address] [place] [address] Bilirubin [Mass/Vol] 1.3 mg/dL High 0.0-1.2 [facility] Comment on above: Performed By: #### 2 4323-8 ####FELIPA LEWIS ([id number])[facility] ([facility])[address] [place] [address] 44783 Calcium [Mass/Vol] 9.0 mg/dL Normal 8.6-10.3 [facility] Comment on above: Performed By: #### 2 4323-8 ####FELIPA LEWIS ([id number])[facility] ([facility])[address] [place] [address] 54393 Chloride [Moles/Vol] 104 mmol/L Normal 98-107 [facility] Comment on above: Performed By: #### 2 4323-8 ####FELIPA LEWIS ([id number])[facility] ([facility])[address] [place] [address] 25352 CO2 [Moles/Vol] 25 mmol/L Normal 21-32 [facility] Comment on above: Performed By: #### 2 4323-8 ####FELIPA LEWIS ([id number])[facility] ([facility])[address] [place] [address] 34019 Creatinine [Mass/Vol] 0.59 mg/dL Normal 0.50-1.05 [facility] Comment on above: Performed By: #### 2 4323-8 ####FELIPA LEWIS ([id number])[facility] ([facility])[address] [place] [address] 02373 GFR/1.73 sq M.predicted MDRD (S/P/Bld) [Vol rate/Area] mL/min/{1.73_m2} Normal >60 [facility] Comment on above: Result Comment: Calc ulations of estimated GFR are performed using the 2020 CKD-EPI Study Refit equation without the race variable for the IDMS-Traceable creatinine methods. https://jasn.asnjournals.org/content//ASN.064525 5799 Performed By: #### 2 4323-8 ####FELIPA LEWIS ([id number])[facility] ([facility] [place] [address] Glucose [Mass/Vol] 272 mg/dL High 74-99 [facility] Comment on above: Performed By: #### 2 4323-8 ####FELIPA LEWIS ([id number])[facility] ([facility])[address] [place] [address] 10130 Potassium [Moles/Vol] 3.9 mmol/L Normal 3.5-5.3 [facility] Comment on above: Performed By: #### 2 432-8 ####FELIPA LEWIS ([id number])[facility] ([facility])[address] [place] [address] 57864 Protein [Mass/Vol] 6.2 g/dL Low 6.4-8.2 [facility] Comment on above: Performed By: #### 2 4323-8 ####FELIPA LEWIS ([id number])[facility] ([facility])[address] [place] [address] 89811 Sodium [Moles/Vol] 135 mmol/L Low 136-145 [facility] Comment on above: Performed By: #### 2 4323-8 ####FELIPA LEWIS ([id number])[facility] ([facility])[address] [place] [address] 51892 Urea nitrogen [Mass/Vol] 8 mg/dL Normal 6-23 [facility] Comment on above: Performed By: #### 2 4323-8 ####FELIPA LEWIS ([id number])[facility] ([facility])[address] [place] [address] 89076 Lactateon 04-10-2025 Lactate [Moles/Vol] 1.4 mmol/L Normal 0.4-2.0 [facility] Comment on above: Order Comment: Venip uncture immediately after or during the administration of Metamizole may lead to falsely low results. Testing should be performed immediately prior to Metamizole dosing. Performed By: #### 2 524-7 ####FELIPA LEWIS ([id number])[facility] ([facility])[address] [place] [address] Magnesiumon 04-10-2025 Magnesium [Mass/Vol] 1.96 mg/dL Normal 1.60-2.40 [facility] Comment on above: Performed By: #### 1 9123-9 ####FELIPA LEWIS ([id number])[facility] ([facility])[address] [place], [place] [address] Triacylglycerol lipaseon Lipase [Catalytic activity/Vol] 39 U/L Normal 9-82 [facility] Comment on above: Order Comment: Venip uncture immediately after or during the administration of Metamizole may lead to falsely low results. Testing should be performed immediately prior to Metamizole dosing. Performed By: #### 3 040-3 ####FELIPA LEWIS ([id number])[facility] ([facility])[address] [place], [place] [address] FLUAV and FLUBV RNA TAMMY+prob e Nom (Unsp spec)on 04-01-2025 FLUAV RNA TAMMY+probe Ql (Resp) Not detected Not Detected [facility] FLUBV RNA TAMMY+probe Ql (Resp) Not detected Not Detected [facility] This assay is an in vitro diagnostic multiplex nucleic acid amplification test for the detection and discrimination of Influenza A & B from nasopharyngeal specimens, and has been validated for use at [facility]. Negative results do not preclude Influenza A/B infections, and should not be used as the sole basis for diagnosis, treatment, or other management decisions. If Influenza A/B and RSV PCR results are negative, testing for Parainfluenza virus, Adenovirus and Metapneumovirus is routinely performed for [facility] pediatric oncology and intensive care inpatients, and is available on other patients by placing an add-on request. [facility] FLUAV RNA TAMMY+probe Ql (Resp) Not detected Normal Not Detected [facility] Comment on above: Order Comment: Less than 99th percentile of normal range cutoff- Female and children under 18 years old <14 ng/L; Male <21 ng/L: Negative Repeat testing should be performed if clinically indicated. Female and children under 18 years old 14-50 ng/L; Male 21-50 ng/L: Consistent with possible cardiac damage and possible increased clinical risk. Serial measurements may help to assess extent of myocardial damage. >50 ng/L: Consistent with cardiac damage, increased clinical risk and myocardial infarction. Serial measurements may help assess extent of myocardial damage. NOTE: Children less than 1 year old may have higher baseline troponin levels and results should be interpreted in conjunction with the overall clinical context. NOTE: Troponin I testing is performed using a different testing methodology at [facility] than at [facility]. Direct result comparisons should only be made within the same method. Performed By: #### 8 9577-1 #### FELIPA LEWIS ([id number]) [facility] ([facility]) [address] [place] [address] FLUBV RNA TAMMY+probe Ql (Resp) Not detected Normal Not Detected [facility] Comment on above: Order Comment: Less than 99th percentile of normal range cutoff- Female and children under 18 years old <14 ng/L; Male <21 ng/L: Negative Repeat testing should be performed if clinically indicated. Female and children under 18 years old 14-50 ng/L; Male 21-50 ng/L: Consistent with possible cardiac damage and possible increased clinical risk. Serial measurements may help to assess extent of myocardial damage. >50 ng/L: Consistent with cardiac damage, increased clinical risk and myocardial infarction. Serial measurements may help assess extent of myocardial damage. NOTE: Children less than 1 year old may have higher baseline troponin levels and results should be interpreted in conjunction with the overall clinical context. NOTE: Troponin I testing is performed using a different testing methodology at [facility] than at [facility]. Direct result comparisons should only be made within the same method. Performed By: #### 8 9577-1 #### FELIPA LEWIS ([id number]) [facility] ([facility]) [address] [place] [address] No Panel Informationon 04-01 Interpretation and review of laboratory results Normal [facility] RSV PCRon 04-01-2025 RSV RNA TAMMY+probe Ql (Resp) Not detected Not Detected [facility] RSV RNA ATMMY+probe Ql (Resp)o n 04-01-2025 This assay is an FDA-cleared, in vitro diagnostic nucleic acid amplification test for the detection of RSV from nasopharyngeal specimens, and has been validated for use at [facility]. Negative results do not preclude RSV infections, and should not be used as the sole basis for diagnosis, treatment, or other management decisions. If Influenza A/B and RSV PCR results are negative, testing for Parainfluenza virus, Adenovirus and Metapneumovirus is routinely performed for pediatric oncology and intensive care inpatients at [facility], and is available on other patients by placing an add-on request. [facility] Respiratory syncytial virus RNAon 04-01-2025 RSV RNA TAMMY+probe Ql (Resp) Not detected Normal Not Detected [facility] Comment on above: Order Comment: Less than 99th percentile of normal range cutoff- Female and children under 18 years old <14 ng/L; Male <21 ng/L: Negative Repeat testing should be performed if clinically indicated. Female and children under 18 years old 14-50 ng/L; Male 21-50 ng/L: Consistent with possible cardiac damage and possible increased clinical risk. Serial measurements may help to assess extent of myocardial damage. >50 ng/L: Consistent with cardiac damage, increased clinical risk and myocardial infarction. Serial measurements may help assess extent of myocardial damage. NOTE: Children less than 1 year old may have higher baseline troponin levels and results should be interpreted in conjunction with the overall clinical context. NOTE: Troponin I testing is performed using a different testing methodology at [facility] than at [facility]. Direct result comparisons should only be made within the same method. Performed By: #### 8 9577-1 #### LEO JOSHUA ([id number]) [facility] ([facility]) [address] [place] [address] SARS coronavirus 2 RNAon SARS-CoV-2 (COVID-19) RNA TAMMY+probe Ql (Resp) Not detected Normal Not Detected [facility] Comment on above: Order Comment: Less than 99th percentile of normal range cutoff- Female and children under 18 years old <14 ng/L; Male <21 ng/L: Negative Repeat testing should be performed if clinically indicated. Female and children under 18 years old 14-50 ng/L; Male 21-50 ng/L: Consistent with possible cardiac damage and possible increased clinical risk. Serial measurements may help to assess extent of myocardial damage. >50 ng/L: Consistent with cardiac damage, increased clinical risk and myocardial infarction. Serial measurements may help assess extent of myocardial damage. NOTE: Children less than 1 year old may have higher baseline troponin levels and results should be interpreted in conjunction with the overall clinical context. NOTE: Troponin I testing is performed using a different testing methodology at [facility] than at other [facility]. Direct result comparisons should only be made within the same method. Performed By: #### 8 9577-1 #### LEO JOSHUA ([id number]) [facility] ([facility]) [address] [place] [address] SARS-CoV-2 (COVID-19) RNA NA A+probe Ql (Resp)on 04-01-2025 This assay is an FDA-cleared, in vitro diagnostic nucleic acid amplification test for the qualitative detection and differentiation of SARS CoV-2 from nasopharyngeal specimens collected from individuals with signs and symptoms of respiratory tract infections, and has been validated for use at [facility]. Negative results do not preclude COVID-19 infections and should not be used as the sole basis for diagnosis, treatment, or other management decisions. Testing for SARS CoV-2 is recommended only for patients who meet current clinical and/or epidemiological criteria defined by federal, state, or local public health directives. 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 Study Details: Correct procedure and correct patient verified verbally and with ID Band checked. Patient History: Hypertension, hyperlipidemia, chest pain and postural orthostatic tachycardia syndrome. Allergies: Amoxicillin, codeine, cavulonic acid, bee venom. Smoker: Former. Diabetes: Yes, managed with Oral medicine. BMI: Obese >30. Medications: Atorvastatin, metoprolol, oleptro, venlafaxine and Trulicity, Jardiance, Abilify, mirtazapine. Patient Performance: The patient exercised to stage III on a Roberto protocol for 7 minutes and 00 seconds, achieving 8.50 METS. The peak heart rate achieved was 136 bpm, which was 76 % of the age predicted target heart rate of 180 bpm. The resting blood pressure was 98/74 mmHg with a heart rate of 90 bpm. The standing blood pressure was 95/70 mmHg with a heart rate of 97 bpm. The patient developed dyspnea during the stress exam. The symptoms resolved with rest 6 minutes into recovery. The blood pressure response was normal. The test was terminated due to: dyspnea and patient request. Baseline ECG: Resting ECG showed normal sinus rhythm with normal tracing. Stress Stage Data: + +---+ ------+-------+ HR Sys BP Appiah BP + +---+ ------+-------+ Baseline Resting 90 98 74 + +---+ ------+-------+ Baseline Standing 97 95 70 + +---+ ------+-------+ Stage I 115 102 72 + +---+ ------+-------+ Stage II 127 124 71 + +---+ ------+-------+ Stage III 136 + +---+ ------+-------+ Recovery ECG: Recovery ECG showed normal sinus rhythm. The heart rate recovery was normal. + +---+------ +-------+ HR Sys BP Appiah BP + +---+------ +-------+ Recovery I 118 + +---+------ +-------+ Recovery II 102 116 70 + +---+------ +-------+ Recovery IV 98 102 70 + +---+------ +-------+ Recovery 99 105 77 + +---+------ +-------+ Summary: 1. Baseline EKG showing normal sinus rhythm with no resting ST-T segment changes. 2. Patient exercised for 7 minutes and 00 seconds achieving 8.5 METS. 3. Heart rate response to exercise is normal. Blood pressure response to exercise is normal. 4. Exercise capacity is below normal average for age. 5. With exercise, there are no ST-T segment changes suggestive of ischemia. No sustained ventricular arrhythmias are seen. 6. Exercise stress EKG is negative for ischemia. 7. Amado treadmill score is 7 (low risk). 8. Submaximal level of stress achieved. 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 Study Details: Correct procedure and correct patient verified verbally and with ID Band checked. Patient History: Hypertension, hyperlipidemia, chest pain and postural orthostatic tachycardia syndrome. Allergies: Amoxicillin, codeine, cavulonic acid, bee venom. Smoker: Former. Diabetes: Yes, managed with Oral medicine. BMI: Obese >30. Medications: Atorvastatin, metoprolol, oleptro, venlafaxine and Trulicity, Jardiance, Abilify, mirtazapine. Patient Performance: The patient exercised to stage III on a Roberto protocol for 7 minutes and 00 seconds, achieving 8.50 METS. The peak heart rate achieved was 136 bpm, which was 76 % of the age predicted target heart rate of 180 bpm. The resting blood pressure was 98/74 mmHg with a heart rate of 90 bpm. The standing blood pressure was 95/70 mmHg with a heart rate of 97 bpm. The patient developed dyspnea during the stress exam. The symptoms resolved with rest 6 minutes into recovery. The blood pressure response was normal. The test was terminated due to: dyspnea and patient request. Baseline ECG: Resting ECG showed normal sinus rhythm with normal tracing. Stress Stage Data: + +---+ ------+-------+ HR Sys BP Appiah BP + +---+ ------+-------+ Baseline Resting 90 98 74 + +---+ ------+-------+ Baseline Standing 97 95 70 + +---+ ------+-------+ Stage I 115 102 72 + +---+ ------+-------+ Stage II 127 124 71 + +---+ ------+-------+ Stage III 136 + +---+ ------+-------+ Recovery ECG: Recovery ECG showed normal sinus rhythm. The heart rate recovery was normal. + +---+------ +-------+ HR Sys BP Appiah BP + +---+------ +-------+ Recovery I 118 + +---+------ +-------+ Recovery II 102 116 70 + +---+------ +-------+ Recovery IV 98 102 70 + +---+------ +-------+ Recovery 99 105 77 + +---+------ +-------+ Summary: 1. Baseline EKG showing normal sinus rhythm with no resting ST-T segment changes. 2. Patient exercised for 7 minutes and 00 seconds achieving 8.5 METS. 3. Heart rate response to exercise is normal. Blood pressure response to exercise is normal. 4. Exercise capacity is below normal average for age. 5. With exercise, there are no ST-T segment changes suggestive of ischemia. No sustained ventricular arrhythmias are seen. 6. Exercise stress EKG is negative for ischemia. 7. Amado treadmill score is 7 (low risk). 8. Submaximal level of stress achieved. [id number] Umair Benton MD Electronically signed on 03/12/2025 at 5:31:35 PM Final [facility] Work Phone: Cardiac stress study Procedu reOrdered By: Umair Benton on 03-12-2025 [facility] Work Phone: STRESS TEST [place] [address] ext-[phone], Exercise Stress Test Patient Name: REINALDO WARREN Ordering Provider: [id number] CLARY SMITH Study Date: 03/12/2025 Reading Physician: Blayne Benton MD MRN/PID: [id number] Supervising Physician: Blayne Benton MD Fellow: Date of /Age: 6 1985 / 39 years Fellow: Gender: F Nurse: ROCKY Admit Date: 03/12/2025 Tooth Cutter 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 Study Details: Correct procedure and correct patient verified verbally and with ID Band checked. Patient History: Hypertension, hyperlipidemia, chest pain and postural orthostatic tachycardia syndrome. Allergies: Amoxicillin, codeine, cavulonic acid, bee venom. Smoker: Former. Diabetes: Yes, managed with Oral medicine. BMI: Obese >30. Medications: Atorvastatin, metoprolol, oleptro, venlafaxine and Trulicity, Jardiance, Abilify, mirtazapine. Patient Performance: The patient exercised to stage III on a Roberto protocol for 7 minutes and 00 seconds, achieving 8.50 METS. The peak heart rate achieved was 136 bpm, which was 76 % of the age predicted target heart rate of 180 bpm. The resting blood pressure was 98/74 mmHg with a heart rate of 90 bpm. The standing blood pressure was 95/70 mmHg with a heart rate of 97 bpm. The patient developed dyspnea during the stress exam. The symptoms resolved with rest 6 minutes into recovery. The blood pressure response was normal. The test was terminated due to: dyspnea and patient request. Baseline ECG: Resting ECG showed normal sinus rhythm with normal tracing. Stress Stage Data: + +---+ ------+-------+ HR Sys BP Appiah BP + +---+ ------+-------+ Baseline Resting 90 98 74 + +---+ ------+-------+ Baseline Standing 97 95 70 + +---+ ------+-------+ Stage I 115 102 72 + +---+ ------+-------+ Stage II 127 124 71 + +---+ ------+-------+ Stage III 136 + +---+ ------+-------+ Recovery ECG: Recovery ECG showed normal sinus rhythm. The heart rate recovery was normal. + +---+------ +-------+ HR Sys BP Appiah BP + +---+------ +-------+ Recovery I 118 + +---+------ +-------+ Recovery II 102 116 70 + +---+------ +-------+ Recovery IV 98 102 70 + +---+------ +-------+ Recovery 99 105 77 + +---+------ +-------+ Summary: 1. Baseline EKG showing normal sinus rhythm with no resting ST-T segment changes. 2. Patient exercised for 7 minutes and 00 seconds achieving 8.5 METS. 3. Heart rate response to exercise is normal. Blood pressure response to exercise is normal. 4. Exercise capacity is below normal average for age. 5. With exercise, there are no ST-T segment changes suggestive of ischemia. No sustained ventricular arrhythmias are seen. 6. Exercise stress EKG is negative for ischemia. 7. Amado treadmill score is 7 (low risk). 8. Submaximal level of stress achieved. [id number] Umair Benton MD Electronically signed on 03/12/2025 at 5:31:35 PM Final Normal [facility] TRANSTHORACIC ECHO (TTE) COM Nathaniel 03-12-2025 TRANSTHORACIC ECHO ([place]) [place] [address] ext-[phone], TRANSTHORACIC ECHOCARDIOGRAM REPORT Patient Name: REINALDO WARREN Reading Physician: [id number] Walter Pretty MD Study Date: 03/12/2025 Ordering Provider: [id number] CLARY SMITH MRN/PID: [id number] Fellow: Nurse: Date of /Age: 6 1985 Vp Of Product: Nicolasa Garcia RDCS years Gender Assigned at F Additional Staff: : Height: 152.40 cm Admit Date: Weight: 90.72 kg Admission Status: Outpatient BSA / BMI: 1.87 m2 / 39.06 Department Location: [facility] Echo Lab kg/m2 Blood Pressure: 109 /76 mmHg Study Type: TRANSTHORACIC ECHO (TTE) COMPLETE Diagnosis/ICD: Abnormal electrocardiogram [ECG] [EKG]-R94.31 CPT Codes: Echo Complete w Full Doppler-83879 Study Detail: The following Echo studies were performed: 2D, M-Mode, Doppler and color flow. PHYSICIAN INTERPRETATION: Left Ventricle: The left ventricular systolic function is low normal with a visually estimated ejection fraction of 50-55%. There are no regional wall motion abnormalities. The left ventricular cavity size is normal. There is mild increased septal and mildly increased posterior left ventricular wall thickness. There is left ventricular concentric remodeling. Spectral Doppler shows a normal pattern of left ventricular diastolic filling. Left Atrium: The left atrial size is normal. Right Ventricle: The right ventricle is normal in size. There is normal right ventricular global systolic function. Right Atrium: The right atrial size is normal. Aortic Valve: The aortic valve is trileaflet. The aortic valve area by VTI is 2.01 cm??? with a peak velocity of 1.25 m/s. The peak and mean gradients are 6 mmHg and 4 mmHg, respectively, with a dimensionless index of 0.71. There is no evidence of aortic valve regurgitation. Mitral Valve: The mitral valve is mildly thickened. There is trace mitral valve regurgitation. The E Vmax is 0.85 m/s. Tricuspid Valve: The tricuspid valve is structurally normal. There is trace tricuspid regurgitation. The right ventricular systolic pressure could not be estimated. Pulmonic Valve: The pulmonic valve is structurally normal. There is physiologic pulmonic valve regurgitation. Pericardium: Trivial pericardial effusion. Aorta: The aortic root is normal. In comparison to the previous echocardiogram(s): There are no prior studies on this patient for comparison purposes. CONCLUSIONS: 1. The left ventricular systolic function is low normal with a visually estimated ejection fraction of 50-55%. 2. There is normal right ventricular global systolic function. QUANTITATIVE DATA SUMMARY: 2D MEASUREMENTS: Normal Ranges: Ao Root d: 3.10 cm (2.0-3.7cm) LAs: 2.80 cm (2.7-4.0cm) IVSd: 0.96 cm (0.6-1.1cm) LVPWd: 0.99 cm (0.6-1.1cm) LVIDd: 4.40 cm (3.9-5.9cm) LVIDs: 2.88 cm LV Mass Index: 76.1 g/m2 LVEDV Index: 42.99 ml/m2 LV % FS 34.5 % LEFT ATRIUM: Normal Ranges: LA Vol A4C: 14.3 ml (22+/-6mL/m2) LA Vol A2C: 14.9 ml LA Vol BP: 15.5 ml LA Vol Index A4C: 7.6ml/m2 LA Vol Index A2C: 8.0 ml/m2 LA Vol Index BP: 8.3 ml/m2 LA Area A4C: 7.7 cm2 LA Area A2C: 8.4 cm2 LA Major [place] A4C: 3.6 cm LA Major [place] A2C: 4.0 cm LA Volume Index: 7.2 ml/m2 LA Vol A4C: 13.5 ml LA Vol A2C: 14.7 ml LA Vol Index BSA: 7.6 ml/m2 LV SYSTOLIC FUNCTION: Normal Ranges: EF-A4C View: 51 % (>=55%) EF-A2C View: 48 % EF-Biplane: 50 % EF-Visual: 53 % LV EF Reported: 53 % LV DIASTOLIC FUNCTION: Normal Ranges: MV Peak E: 0.85 m/s (0.7-1.2 m/s) MV Peak A: 0.69 m/s (0.42-0.7 m/s) E/A Ratio: 1.23 (1.0-2.2) MV e' 0.092 m/s (>8.0) MV lateral e' 0.10 m/s MV medial e' 0.08 m/s E/e' Ratio: 9.23 (<8.0) MITRAL VALVE: Normal Ranges: MV DT: 176 msec (150-240msec) AORTIC VALVE: Normal Ranges: AoV Vmax: 1.25 m/s (<=1.7m/s) AoV Peak P.2 mmHg (<20mmHg) AoV Mean P.0 mmHg (1.7-11.5mmHg) LVOT Max Dewey: 0.94 m/s (<=1.1m/s) AoV VTI: 23.50 cm (18-25cm) LVOT VTI: 16.70 cm LVOT Diameter: 1.90 cm (1.8-2.4cm) AoV Area, VTI: 2.01 cm2 (2.5-5.5cm2) AoV Area,Vmax: 2.13 cm2 (2.5-4.5cm2) AoV Dimensionless Index: 0.71 RIGHT VENTRICLE: RV Basal 3.11 cm RV Mid 2.65 cm RV Major 7.4 cm TAPSE: 13.8 mm RV s' 0.09 m/s TRICUSPID VALVE/RVSP: Normal Ranges: Est. RA Pressure: 3 mmHg [id number] Walter Pretty MD Electronically signed on 03/13/2025 at 3:46:03 PM Final Normal [facility] ECG 12 leadOrdered By: Lyndsay Caal on 02-06-2025 Atrial Rate 104 BPM [facility] Work Phone: P [place] 13 degrees [facility] Work Phone: P Offset 182 ms [facility] Work Phone: P Onset 133 ms [facility] Work Phone: [place] Interval 178 ms [facility] Work Phone: Q Onset 222 ms [facility] Work Phone: QRS Count 17 beats [facility] Work Phone: QRS Duration 74 ms [facility] Work Phone: QT Interval 390 ms [facility] Work Phone: QTC Calculation(Bazett) 510 ms [facility] Work Phone: QTC Fredericia 467 ms [facility] Work Phone: R [place] 4 degrees [facility] Work Phone: T [place] -4 degrees [facility] Work Phone: T Offset 417 ms [facility] Work Phone: Ventricular Rate 103 BPM [facility] Work Phone: [facility] Work Phone: ECG 12 leadon 02-06-2025 Sinus tachycardia Minimal voltage criteria for LVH, may be normal variant ( R in aVL ) Cannot rule out Anteroseptal infarct (cited on or before 23-DEC-2023) Abnormal ECG When compared with ECG of 31-DEC-2024 13:51, Questionable change in initial forces of Septal leads T wave inversion now evident in Inferior leads Nonspecific T wave abnormality now evident in Anterior leads Nonspecific T wave abnormality, improved in Lateral leads See ED provider note for full interpretation and clinical correlation Confirmed by Lyndsay Caal ([id number]) on 02/06/2025 4:59:56 PM Lyndsay Chu PA-C - 02/06/2025 Sinus tachycardia Minimal voltage criteria for LVH, may be normal variant ( R in aVL ) Cannot rule out Anteroseptal infarct (cited on or before 23-DEC-2023) Abnormal ECG When compared with ECG of 31-DEC-2024 13:51, Questionable change in initial forces of Septal leads T wave inversion now evident in Inferior leads Nonspecific T wave abnormality now evident in Anterior leads Nonspecific T wave abnormality, improved in Lateral leads See ED provider note for full interpretation and clinical correlation Confirmed by Lyndsay Caal ([id number]) on 02/06/2025 4:59:56 PM [facility] Work Phone: Basic metabolic 2000 panelon 02-05-2025 Anion gap [Moles/Vol] 13 mmol/L 10 - 2 0 mmol/L [facility] Calcium [Mass/Vol] 9.1 mg/dL 8.6 - 10. 3 mg/dL [facility] Chloride [Moles/Vol] 100 mmol/L 98 - 10 7 mmol/L [facility] CO2 [Moles/Vol] 25 mmol/L 21 - 32 mmol/L [facility] Creatinine [Mass/Vol] 0.69 mg/dL 0.50 - 1.05 mg/dL [facility] eGFR - PINF [facility] Comment on above: Calculations of kayleigh mated GFR are performed using the 2020 CKD-EPI Study Refit equation without the race variable for the IDMS-Traceable creatinine methods. https://jasn.asnjournals.org/content//ASN.310786 4414 Glucose [Mass/Vol] 194 mg/dL High 74 - 99 mg/dL [facility] Interpretation and review of laboratory results Abnormal [facility] Potassium [Moles/Vol] 3.8 mmol/L 3.5 - 5.3 mmol/L [facility] Sodium [Moles/Vol] 134 mmol/L Low 136 - 145 mmol/L [facility] Urea nitrogen [Mass/Vol] 15 mg/dL 6 - 23 mg/dL [facility] Anion gap [Moles/Vol] 13 mmol/L Normal 10-20 [facility] Comment on above: Performed By: #### 8 9577-1 #### FELIPA LEWIS ([id number]) [facility] ([facility]) [facility] [place] [address] Calcium [Mass/Vol] 9.1 mg/dL Normal 8.6-10.3 [facility] Comment on above: Performed By: #### 8 9577-1 #### FELIPA LEWIS ([id number]) [facility] ([facility]) [address] [place] [address] Chloride [Moles/Vol] 100 mmol/L Normal 98-107 [facility] Comment on above: Performed By: #### 8 9577-1 #### FELIPA LEWIS ([id number]) [facility] ([facility]) [address] [place] [address]3574 CO2 [Moles/Vol] 25 mmol/L Normal 21-32 [facility] Comment on above: Performed By: #### 8 9577-1 #### FELIPA LEWIS ([id number]) [facility] ([facility]) [address] [place] [address]3480 Creatinine [Mass/Vol] 0.69 mg/dL Normal 0.50-1.05 [facility] Comment on above: Performed By: #### 8 9577-1 #### FELIPA LEWIS ([id number]) [facility] ([facility]) [address] [place] [address] 76768 GFR/1.73 sq M.predicted MDRD (S/P/Bld) [Vol rate/Area] mL/min/{1.73_m2} Normal >60 [facility] Comment on above: Result Comment: Calc ulations of estimated GFR are performed using the 2020 CKD-EPI Study Refit equation without the race variable for the IDMS-Traceable creatinine methods. https://jasn.asnjournals.org/content/early/ASN.478624 1476 Performed By: #### 8 9577-1 #### FELIPA LEWIS ([id number]) [facility] ([facility]) [address] [place] [address] 24112 Glucose [Mass/Vol] 194 mg/dL High 74-99 [facility] Comment on above: Performed By: #### 8 9577-1 #### FELIPA LEWIS ([id number]) [facility] ([facility]) [address] [place] [address] 30950 Potassium [Moles/Vol] 3.8 mmol/L Normal 3.5-5.3 [facility] Comment on above: Performed By: #### 8 9577-1 #### FELIPA LEWIS ([id number]) [facility] ([facility]) [address] [place] [address] 55795 Sodium [Moles/Vol] 134 mmol/L Low 136-145 [facility] Comment on above: Performed By: #### 8 9577-1 #### FELIPA LEWIS ([id number]) [facility] ([facility]) [facility] [place] [phone] Urea nitrogen [Mass/Vol] 15 mg/dL Normal 6-23 [facility] Comment on above: Performed By: #### 8 9577-1 #### FELIPA LEWIS ([id number]) [facility] ([facility]) [facility] [place] [phone] CBC W Auto Differential pane l (Bld)on 02-05-2025 Basophils (Bld) [#/Vol] 0.04 10*3/uL [facility] Basophils/100 WBC (Bld) 0.6 % 0.0 - 2.0 % [facility] Eosinophils (Bld) [#/Vol] 0 10*3/uL [facility] Eosinophils/100 WBC (Bld) 0 % 0.0 - 6.0 % [facility] Erythrocyte distribution width (RBC) [Ratio] 15.4 % High 11.5 - 14.5 % [facility] Hematocrit (Bld) [Volume fraction] 37.3 % 36.0 - 46.0 % [facility] Hemoglobin (Bld) [Mass/Vol] 13.1 g/dL 12.0 - 16.0 g/dL [facility] Immature granulocytes (Bld) [#/Vol] 0.08 10*3/uL [facility] Immature granulocytes/100 WBC (Bld) 1.1 % High 0.0 - 0.9 % [facility] Comment on above: Immature Granulocyte Count (IG) includes promyelocytes, myelocytes and metamyelocytes but does not include bands. Percent differential counts (%) should be interpreted in the context of the absolute cell counts (cells/UL). Interpretation and review of laboratory results Abnormal [facility] Lymphocytes (Bld) [#/Vol] 2.06 10*3/uL [facility] Lymphocytes/100 WBC (Bld) 28.6 % 13.0 - 44.0 % [facility] MCH (RBC) [Entitic mass] 30.8 pg 26.0 - 34.0 pg [facility] MCHC (RBC) [Mass/Vol] 35.1 g/dL 32.0 - 36.0 g/dL [facility] MCV (RBC) [Entitic vol] 88 fL 80 - 100 fL [facility] Monocytes (Bld) [#/Vol] 0.5 10*3/uL [facility] Monocytes/100 WBC (Bld) 6.9 % 2.0 - 10.0 % [facility] Neutrophils (Bld) [#/Vol] 4.53 10*3/uL [facility] Comment on above: Percent differential counts (%) should be interpreted in the context of the absolute cell counts (cells/uL). Neutrophils/100 WBC (Bld) 62.8 % 40.0 - 80.0 % [facility] Nucleated RBC/100 WBC (Bld) [Ratio] 0 % [facility] Platelets (Bld) [#/Vol] 235 10*3/uL [facility] RBC (Bld) [#/Vol] 4.25 10*6/uL [facility] WBC (Bld) [#/Vol] 7.2 10*3/uL [facility] Basophils (Bld) [#/Vol] 0.04 x10*3/uL Normal 0.00-0.10 [facility] Comment on above: Performed By: #### 2 4323-8 #### FELIPA LEWIS ([id number]) [facility] ([facility]) [address] [place] [address] 23649 Basophils/100 WBC (Bld) 0.6 % Normal 0.0-2.0 [facility] Comment on above: Performed By: #### 2 4323-8 #### FELIPA LEWIS ([id number]) [facility] ([facility]) [address] [place] [address] 30218 Eosinophils (Bld) [#/Vol] 0.00 x10*3/uL Normal 0.00-0.70 [facility] Comment on above: Performed By: #### 2 4323-8 #### FELIPA LEWIS ([id number]) [facility] ([facility]) [address] [place] [address] 57455 Eosinophils/100 WBC (Bld) 0.0 % Normal 0.0-6.0 [facility] Comment on above: Performed By: #### 2 4323-8 #### FELIPA LEWIS ([id number]) [facility] ([facility]) [address] [place] [address] 47354 Erythrocyte distribution width (RBC) [Ratio] 15.4 % High 11.5-14.5 [facility] Comment on above: Performed By: #### 2 4323-8 #### FELIPA LEWIS ([id number]) [facility] ([facility]) [address] [place] [address] 86092 Hematocrit (Bld) [Volume fraction] 37.3 % Normal 36.0-46.0 [facility] Comment on above: Performed By: #### 2 4323-8 #### FELIPA LEWIS ([id number]) [facility] ([facility]) [address] [place] [address] 09794 Hemoglobin (Bld) [Mass/Vol] 13.1 g/dL Normal 12.0-16.0 [facility] Comment on above: Performed By: #### 2 4323-8 #### FELIPA LEWIS ([id number]) [facility] ([facility]) [address] [place] [address] 21290 Immature granulocytes (Bld) [#/Vol] 0.08 x10*3/uL Normal 0.00-0.70 [facility] Comment on above: Performed By: #### 2 4323-8 #### FELIPA LEWIS ([id number]) [facility] ([facility]) [address] [place] [address] 03576 Immature granulocytes/100 WBC (Bld) 1.1 % High 0.0-0.9 [facility] Comment on above: Result Comment: Felisa ture Granulocyte Count (IG) includes promyelocytes, myelocytes and metamyelocytes but does not include bands. Percent differential counts (%) should be interpreted in the context of the absolute cell counts (cells/UL). Performed By: #### 2 4323-8 #### FELIPA LEWIS ([id number]) [facility] ([facility]) [address] [place] [address] 51688 Lymphocytes (Bld) [#/Vol] 2.06 x10*3/uL Normal 1.20-4.80 [facility] Comment on above: Performed By: #### 2 4323-8 #### FELIPA LEWIS ([id number]) [facility] ([facility]) [address] [place], [place] [address] Lymphocytes/100 WBC (Bld) 28.6 % Normal 13.0-44.0 [facility] Comment on above: Performed By: #### 2 432-8 #### FELIPA LEWIS ([id number]) [facility] ([facility]) [address] [place] [address] MCH (RBC) [Entitic mass] 30.8 pg Normal 26.0-34.0 [facility] Comment on above: Performed By: #### 2 432-8 #### FELIPA LEWIS ([id number]) [facility] ([facility]) [address] [place] [address] 79911 MCHC (RBC) [Mass/Vol] 35.1 g/dL Normal 32.0-36.0 [facility] Comment on above: Performed By: #### 2 4323-8 #### FELIPA LEWIS ([id number]) [facility] ([facility]) [address] [place] [address] 90625 MCV (RBC) [Entitic vol] 88 fL Normal 80-100 [facility] Comment on above: Performed By: #### 2 4323-8 #### FELIPA LEWIS ([id number]) [facility] ([facility]) [address] [place] [address] 45373 Monocytes (Bld) [#/Vol] 0.50 x10*3/uL Normal 0.10-1.00 [facility] Comment on above: Performed By: #### 2 432-8 #### FELIPA LEWIS ([id number]) [facility] ([facility]) [address] [place] [address] Monocytes/100 WBC (Bld) 6.9 % Normal 2.0-10.0 [facility] Comment on above: Performed By: #### 2 4323-8 #### FELIPA LEWIS ([id number]) [facility] ([facility]) [address] [place] [address] 45368 Neutrophils (Bld) [#/Vol] 4.53 x10*3/uL Normal 1.20-7.70 [facility] Comment on above: Result Comment: Perc ent differential counts (%) should be interpreted in the context of the absolute cell counts (cells/uL). Performed By: #### 2 4323-8 #### FELIPA LEWIS ([id number]) [facility] ([facility]) [address] [place] [address] 42061 Neutrophils/100 WBC (Bld) 62.8 % Normal 40.0-80.0 [facility] Comment on above: Performed By: #### 2 4323-8 #### FELIPA LEWIS ([id number]) [facility] ([facility]) [address] [place] [address] 88770 Nucleated RBC/100 WBC (Bld) [Ratio] 0.0 /100 WBCs Normal 0.0-0.0 [facility] Comment on above: Performed By: #### 2 4323-8 #### FELIPA LEWIS ([id number]) [facility] ([facility]) [address] [place] [address] 06152 Platelets (Bld) [#/Vol] 235 x10*3/uL Normal 150-450 [facility] Comment on above: Performed By: #### 2 4323-8 #### FELIPA LEWIS ([id number]) [facility] ([facility]) [address] [place] [address] 09832 RBC (Bld) [#/Vol] 4.25 x10*6/uL Normal 4.00-5.20 [facility] Comment on above: Performed By: #### 2 4323-8 #### FELIPA LEWIS ([id number]) [facility] ([facility]) [address] [place] [address] WBC (Bld) [#/Vol] 7.2 x10*3/uL Normal 4.4-11.3 [facility] Comment on above: Performed By: #### 2 4323-8 #### FELIPA LEWIS ([id number]) [facility] ([facility]) [facility] [place] [address] ECG 12-LEADon 02-05-2025 ECG 12-LEAD Ventricular Rate 103 Atrial Rate 104 P-R Interval 178 QRS Duration 74 Q-T Interval 390 QTC Calculation(Bazett) 510 P [place] 13 R [place] 4 T [place] -4 QRS Count 17 Q Onset 222 P Onset 133 P Offset 182 T Offset 417 QTC Fredericia 467 Diagnosis Sinus tachycardia Minimal voltage criteria for LVH, may be normal variant ( R in aVL ) Cannot rule out Anteroseptal infarct (cited on or before 23-DEC-2023) Abnormal ECG When compared with ECG of 31-DEC-2024 13:51, Questionable change in initial forces of Septal leads T wave inversion now evident in Inferior leads Nonspecific T wave abnormality now evident in Anterior leads Nonspecific T wave abnormality, improved in Lateral leads See ED provider note for full interpretation and clinical correlation Confirmed by Lyndsay Caal ([id number]) on 02/06/2025 4:59:56 PM Normal [facility] Extra Urine Weber TubeOrdered By: Tonio Harding on 02-05-2025 Extra Tube 293 [facility] Work Phone: [facility] Work Phone: Glucose Test strip manual (B ld) [Mass/Vol]on 02-05-2025 Glucose [Mass/Vol] 189 mg/dL High 74 - 99 mg/dL [facility] Interpretation and review of laboratory results Abnormal [facility] Glucose [Mass/Vol] 189 mg/dL High 74-99 [facility] Comment on above: Performed By: #### 2 4323-8 #### LEO JOSHUA ([id number]) [facility] ([facility]) [facility] [place] [address] Magnesiumon 02-05-2025 Magnesium [Mass/Vol] 1.98 mg/dL 1.60 - 2.40 mg/dL [facility] Magnesium [Mass/Vol] 1.98 mg/dL Normal 1.60-2.40 [facility] Comment on above: Performed By: #### 8 9577-1 #### LEO JOSHUA ([id number]) [facility] ([facility]) [address] [place] [address] Magnesium [Mass/Vol]on 02-05 Interpretation and review of laboratory results Normal [facility] No Panel Informationon 02-05 [facility] Urinalysis complete W Reflex Culture panel (U)on 02-05-2025 Appearance (U) Clear Clear [facility] Bacteria Auto (Urine sed) [#/Area] 1+ Abnormal NONE SEEN /HPF [facility] Bilirubin (U) [Mass/Vol] Negative NEGATIVE mg/dL [facility] Color (U) Yellow Light-Yellow , Yellow, Dark-Yellow [facility] Epithelial cells.squamous Auto (Urine sed) [#/Area] 1-9 (SPARSE) Reference range not established. /HPF [facility] Glucose Auto test strip (U) [Mass/Vol] 500 (3+) Abnormal Normal mg/dL [facility] Interpretation and review of laboratory results Abnormal [facility] Ketones (U) [Mass/Vol] Negative NEGATIVE mg/dL [facility] Leukocyte esterase Auto test strip Ql (U) Negative NEGATIVE [facility] Mucus Auto (Urine sed) [#/Area] FEW Reference range not established. /LPF [facility] Nitrite Auto test strip Ql (U) Negative NEGATIVE [facility] pH (U) 6 [pH] 5.0, 5.5, 6.0, 6.5, 7.0, 7.5, 8.0 [facility] Protein (U) [Mass/Vol] 20 (TRACE) NEGATIVE, 10 (TRACE), 20 (TRACE) mg/dL [facility] RBC (U) [#/Vol] Negative NEGATIVE mg/dL [facility] RBC Auto (Urine sed) [#/Area] 1-2 NONE, 1-2, 3-5 /HPF [facility] Specific gravity (U) [Rel density] 1.029 1.005 - 1.035 [facility] Urobilinogen (U) [Mass/Vol] Normal Normal mg/dL [facility] WBC Auto (Urine sed) [#/Area] 1-5 1-5, NONE /HPF [facility] Appearance (U) Clear Normal Clear [facility] Comment on above: Performed By: #### 8 9577-1 #### FELIPA LEWIS ([id number]) [facility] ([facility]) [address] [place] [address] Bacteria Auto (Urine sed) [#/Area] 1+ /HPF Abnormal NONE SEEN [facility] Comment on above: Performed By: #### 8 9577-1 #### FELIPA LEWIS ([id number]) [facility] ([facility]) [address] [place] [address] Bilirubin (U) [Mass/Vol] Negative Normal NEGATIVE [facility] Comment on above: Performed By: #### 8 9577-1 #### FELIPA LEWIS ([id number]) [facility] ([facility]) [address] [place] [address] Color (U) Yellow Normal Light-Yellow , Yellow, Dark-Yellow [facility] Comment on above: Performed By: #### 8 9577-1 #### FELIPA LEWIS ([id number]) [facility] ([facility]) [address] [place] [address] Epithelial cells.squamous Auto (Urine sed) [#/Area] 1-9 (SPARSE) Normal Reference range not established. [facility] Comment on above: Performed By: #### 8 9577-1 #### FELIPA LEWIS ([id number]) [facility] ([facility]) [address] [place], [place] [id number] Glucose Auto test strip (U) [Mass/Vol] 500 (3+) Abnormal Normal [facility] Comment on above: Performed By: #### 8 9577-1 #### FELIPA LEWIS ([id number]) [facility] ([facility]) [address] [place] [address] 42755 Ketones (U) [Mass/Vol] Negative Normal NEGATIVE [facility] Comment on above: Performed By: #### 8 9577-1 #### FELIPA LEWIS ([id number]) [facility] ([facility]) [address] [place] [address] 57490 Leukocyte esterase Auto test strip Ql (U) Negative Normal NEGATIVE [facility] Comment on above: Performed By: #### 8 9577-1 #### FELIPA LEWIS ([id number]) [facility] ([facility]) [address] [place] [address] 20002 Mucus Auto (Urine sed) [#/Area] FEW Normal Reference range not established. [facility] Comment on above: Performed By: #### 8 9577-1 #### FELIPA LEWIS ([id number]) [facility] ([facility]) [address] [place] [address] 82409 Nitrite Auto test strip Ql (U) Negative Normal NEGATIVE [facility] Comment on above: Performed By: #### 8 9577-1 #### FELIPA LEWIS ([id number]) [facility] ([facility]) [address] [place] [address] 57344 pH (U) 6.0 [pH] Normal 5.0, 5.5, 6.0, 6.5, 7.0, 7.5, 8.0 [facility] Comment on above: Performed By: #### 8 9577-1 #### FELIPA LEWIS ([id number]) [facility] ([facility]) [address] [place] [address] 90389 Protein (U) [Mass/Vol] 20 (TRACE) Normal NEGATIVE, 10 (TRACE), 20 (TRACE) [facility] Comment on above: Performed By: #### 8 9577-1 #### FELIPA LEWIS ([id number]) [facility] ([facility]) [address] [place] [address] 85455 RBC (U) [#/Vol] Negative Normal NEGATIVE [facility] Comment on above: Performed By: #### 8 9577-1 #### FELIPA LEWIS ([id number]) [facility] ([facility]) [address] [place] [address] RBC Auto (Urine sed) [#/Area] 1-2 Normal NONE, 1-2, 3-5 [facility] Comment on above: Performed By: #### 8 9577-1 #### FELIPA LEWIS ([id number]) [facility] ([facility]) [address] [place] [address] Specific gravity (U) [Rel density] 1.029 Normal 1.005-1.035 [facility] Comment on above: Performed By: #### 8 9577-1 #### FELIPA LEWIS ([id number]) [facility] ([facility]) [address] [place] [address] Urobilinogen (U) [Mass/Vol] Normal Normal Normal [facility] Comment on above: Performed By: #### 8 9577-1 #### FELIPA LEWIS ([id number]) [facility] ([facility]) [address] [place] [address] WBC Auto (Urine sed) [#/Area] 1-5 Normal 1-5, NONE [facility] Comment on above: Performed By: #### 8 9577-1 #### FELIPA LEWIS ([id number]) [facility] ([facility]) [address] [place] [address] CBC W Auto Differential pane l (Bld)on 01-27-2025 Basophils (Bld) [#/Vol] 0.03 10*3/uL [facility] Basophils/100 WBC (Bld) 0.5 % 0.0 - 2.0 % [facility] Eosinophils (Bld) [#/Vol] 0 10*3/uL [facility] Eosinophils/100 WBC (Bld) 0 % 0.0 - 6.0 % [facility] Erythrocyte distribution width (RBC) [Ratio] 15.3 % High 11.5 - 14.5 % [facility] Hematocrit (Bld) [Volume fraction] 36.3 % 36.0 - 46.0 % [facility] Hemoglobin (Bld) [Mass/Vol] 12.2 g/dL 12.0 - 16.0 g/dL [facility] Immature granulocytes (Bld) [#/Vol] 0.07 10*3/uL [facility] Immature granulocytes/100 WBC (Bld) 1.1 % High 0.0 - 0.9 % [facility] Comment on above: Immature Granulocyte Count (IG) includes promyelocytes, myelocytes and metamyelocytes but does not include bands. Percent differential counts (%) should be interpreted in the context of the absolute cell counts (cells/UL). Interpretation and review of laboratory results Abnormal [facility] Lymphocytes (Bld) [#/Vol] 2.17 10*3/uL [facility] Lymphocytes/100 WBC (Bld) 34.7 % 13.0 - 44.0 % [facility] MCH (RBC) [Entitic mass] 30 pg 26.0 - 34.0 pg [facility] MCHC (RBC) [Mass/Vol] 33.6 g/dL 32.0 - 36.0 g/dL [facility] MCV (RBC) [Entitic vol] 89 fL 80 - 100 fL [facility] Monocytes (Bld) [#/Vol] 0.39 10*3/uL [facility] Monocytes/100 WBC (Bld) 6.2 % 2.0 - 10.0 % [facility] Neutrophils (Bld) [#/Vol] 3.59 10*3/uL [facility] Comment on above: Percent differential counts (%) should be interpreted in the context of the absolute cell counts (cells/uL). Neutrophils/100 WBC (Bld) 57.5 % 40.0 - 80.0 % [facility] Nucleated RBC/100 WBC (Bld) [Ratio] 0 % [facility] Platelets (Bld) [#/Vol] 217 10*3/uL [facility] RBC (Bld) [#/Vol] 4.06 10*6/uL [facility] WBC (Bld) [#/Vol] 6.3 10*3/uL [facility] Basophils (Bld) [#/Vol] 0.03 x10*3/uL Normal 0.00-0.10 [facility] Comment on above: Performed By: #### 2 3-8 #### FELIPA LEWIS ([id number]) [facility] ([facility]) [address] [place] [address] 10846 Basophils/100 WBC (Bld) 0.5 % Normal 0.0-2.0 [facility] Comment on above: Performed By: #### 2 4322-8 #### FELIPA LEWIS ([id number]) [facility] ([facility]) [address] [place] [address] 62230 Eosinophils (Bld) [#/Vol] 0.00 x10*3/uL Normal 0.00-0.70 [facility] Comment on above: Performed By: #### 2 4322-8 #### FELIPA LEWIS ([id number]) [facility] ([facility]) [address] [place] [address] 62893 Eosinophils/100 WBC (Bld) 0.0 % Normal 0.0-6.0 [facility] Comment on above: Performed By: #### 2 4322-8 #### FELIPA LEWIS ([id number]) [facility] ([facility]) [address] [place] [address] 70208 Erythrocyte distribution width (RBC) [Ratio] 15.3 % High 11.5-14.5 [facility] Comment on above: Performed By: #### 2 4322-8 #### FELIPA LEWIS ([id number]) [facility] ([facility]) [address] [place] [address] 60748 Hematocrit (Bld) [Volume fraction] 36.3 % Normal 36.0-46.0 [facility] Comment on above: Performed By: #### 2 4322-8 #### FELIPA LEWIS ([id number]) [facility] ([facility]) [address] [place] [address] 34800 Hemoglobin (Bld) [Mass/Vol] 12.2 g/dL Normal 12.0-16.0 [facility] Comment on above: Performed By: #### 2 4322-8 #### FELIPA LEWIS ([id number]) [facility] ([facility]) [address] [place] [address] 17558 Immature granulocytes (Bld) [#/Vol] 0.07 x10*3/uL Normal 0.00-0.70 [facility] Comment on above: Performed By: #### 2 4323-8 #### FELIPA LEWIS ([id number]) [facility] ([facility]) [address] [place] [address] 38079 Immature granulocytes/100 WBC (Bld) 1.1 % High 0.0-0.9 [facility] Comment on above: Result Comment: Felisa ture Granulocyte Count (IG) includes promyelocytes, myelocytes and metamyelocytes but does not include bands. Percent differential counts (%) should be interpreted in the context of the absolute cell counts (cells/UL). Performed By: #### 2 4323-8 #### FELIPA LEWIS ([id number]) [facility] ([facility]) [address] [place] [address] 71405 Lymphocytes (Bld) [#/Vol] 2.17 x10*3/uL Normal 1.20-4.80 [facility] Comment on above: Performed By: #### 2 4323-8 #### FELIPA LEWIS ([id number]) [facility] ([facility]) [address] [place] [address] 13360 Lymphocytes/100 WBC (Bld) 34.7 % Normal 13.0-44.0 [facility] Comment on above: Performed By: #### 2 4323-8 #### FELIPA LEWIS ([id number]) [facility] ([facility]) [address] [place] [address] 67718 MCH (RBC) [Entitic mass] 30.0 pg Normal 26.0-34.0 [facility] Comment on above: Performed By: #### 2 4323-8 #### FELIPA LEWIS ([id number]) [facility] ([facility]) [address] [place] [address] 72310 MCHC (RBC) [Mass/Vol] 33.6 g/dL Normal 32.0-36.0 [facility] Comment on above: Performed By: #### 2 4323-8 #### FELIPA LEWIS ([id number]) [facility] ([facility]) [address] [place] [address] 33339 MCV (RBC) [Entitic vol] 89 fL Normal 80-100 [facility] Comment on above: Performed By: #### 2 4323-8 #### FELIPA LEWIS ([id number]) [facility] ([facility]) [address] [place] [address] 99063 Monocytes (Bld) [#/Vol] 0.39 x10*3/uL Normal 0.10-1.00 [facility] Comment on above: Performed By: #### 2 4323-8 #### FELIPA LEWIS ([id number]) [facility] ([facility]) [address] [place] [address] 89911 Monocytes/100 WBC (Bld) 6.2 % Normal 2.0-10.0 [facility] Comment on above: Performed By: #### 2 4323-8 #### FELIPA LEWIS ([id number]) [facility] ([facility]) [address] [place] [address] 08941 Neutrophils (Bld) [#/Vol] 3.59 x10*3/uL Normal 1.20-7.70 [facility] Comment on above: Result Comment: Perc ent differential counts (%) should be interpreted in the context of the absolute cell counts (cells/uL). Performed By: #### 2 4323-8 #### FELIPA LEWIS ([id number]) [facility] ([facility]) [address] [place] [address] 43106 Neutrophils/100 WBC (Bld) 57.5 % Normal 40.0-80.0 [facility] Comment on above: Performed By: #### 2 4323-8 #### FELIPA LEWIS ([id number]) [facility] ([facility]) [address] [place] [address] 31320 Nucleated RBC/100 WBC (Bld) [Ratio] 0.0 /100 WBCs Normal 0.0-0.0 [facility] Comment on above: Performed By: #### 2 4323-8 #### FELIPA LEWIS ([id number]) [facility] ([facility]) [facility] [place] [address] Platelets (Bld) [#/Vol] 217 x10*3/uL Normal 150-450 [facility] Comment on above: Performed By: #### 2 4323-8 #### FELIPA LEWIS ([id number]) [facility] ([facility]) [address] [place] [address] RBC (Bld) [#/Vol] 4.06 x10*6/uL Normal 4.00-5.20 [facility] Comment on above: Performed By: #### 2 4323-8 #### FELIPA LEWIS ([id number]) [facility] ([facility]) [address] [place] [address] WBC (Bld) [#/Vol] 6.3 x10*3/uL Normal 4.4-11.3 [facility] Comment on above: Performed By: #### 2 4323-8 #### FELIPA LEWIS ([id number]) [facility] ([facility]) [address] [place] [address] Comprehensive metabolic 2000 panelon 01-27-2025 Albumin BCP dye [Mass/Vol] 4.4 g/dL 3.4 - 5.0 g/dL [facility] ALP [Catalytic activity/Vol] 66 U/L 33 - 110 U/L [facility] ALT With P-5'-P [Catalytic activity/Vol] 17 U/L 7 - 45 U/L [facility] Comment on above: Patients treated wit h Sulfasalazine may generate falsely decreased results for ALT. Anion gap [Moles/Vol] 10 mmol/L 10 - 2 0 mmol/L [facility] AST With P-5'-P [Catalytic activity/Vol] 17 U/L 9 - 39 U/L [facility] Bilirubin [Mass/Vol] 1 mg/dL 0.0 - 1 .2 mg/dL [facility] Calcium [Mass/Vol] 9.2 mg/dL 8.6 - 10. 3 mg/dL [facility] Chloride [Moles/Vol] 103 mmol/L 98 - 10 7 mmol/L [facility] CO2 [Moles/Vol] 28 mmol/L 21 - 32 mmol/L [facility] Creatinine [Mass/Vol] 0.89 mg/dL 0.50 - 1.05 mg/dL [facility] GFR/1.73 sq M.predicted among non-blacks MDRD (S/P/Bld) [Vol rate/Area] 85 mL/min/{1.73_m2} - PINF [facility] Comment on above: Calculations of kayleigh mated GFR are performed using the 2020 CKD-EPI Study Refit equation without the race variable for the IDMS-Traceable creatinine methods. https://jasn.asnjournals.org/content/early/ASN.092439 9095 Glucose [Mass/Vol] 169 mg/dL High 74 - 99 mg/dL [facility] Interpretation and review of laboratory results Abnormal [facility] Potassium [Moles/Vol] 4.2 mmol/L 3.5 - 5.3 mmol/L [facility] Protein [Mass/Vol] 7 g/dL 6.4 - 8.2 g/dL [facility] Sodium [Moles/Vol] 137 mmol/L 136 - 145 mmol/L [facility] Urea nitrogen [Mass/Vol] 19 mg/dL 6 - 23 mg/dL [facility] Albumin BCP dye [Mass/Vol] 4.4 g/dL Normal 3.4-5.0 [facility] Comment on above: Performed By: #### 2 4323-8 #### FELIPA LEWIS ([id number]) [facility] ([facility]) [address] [place] [address] 01743 ALP [Catalytic activity/Vol] 66 U/L Normal 33-110 [facility] Comment on above: Performed By: #### 2 4323-8 #### FELIPA LEWIS ([id number]) [facility] ([facility]) [facility] [place] [address] ALT With P-5'-P [Catalytic activity/Vol] 17 U/L Normal 7-45 [facility] Comment on above: Result Comment: Renetta ents treated with Sulfasalazine may generate falsely decreased results for ALT. Performed By: #### 2 4323-8 #### FELIPA LEWIS ([id number]) [facility] ([facility]) [address] [place] [address] Anion gap [Moles/Vol] 10 mmol/L Normal 10-20 [facility] Comment on above: Performed By: #### 2 4323-8 #### FELIPA LEWIS ([id number]) [facility] ([facility]) [address] [place] [address] AST With P-5'-P [Catalytic activity/Vol] 17 U/L Normal 9-39 [facility] Comment on above: Performed By: #### 2 432-8 #### FELIPA LEWIS ([id number]) [facility] ([facility]) [address] [place] [address] Bilirubin [Mass/Vol] 1.0 mg/dL Normal 0.0-1.2 [facility] Comment on above: Performed By: #### 2 4323-8 #### FELIPA LEWIS ([id number]) [facility] ([facility]) [address] [place] [address] Calcium [Mass/Vol] 9.2 mg/dL Normal 8.6-10.3 [facility] Comment on above: Performed By: #### 2 4323-8 #### FELIPA LEWIS ([id number]) [facility] ([facility]) [address] [place] [address] Chloride [Moles/Vol] 103 mmol/L Normal 98-107 [facility] Comment on above: Performed By: #### 2 4323-8 #### FELIPA LEWIS ([id number]) [facility] ([facility]) [address] [place] [address] CO2 [Moles/Vol] 28 mmol/L Normal 21-32 [facility] Comment on above: Performed By: #### 2 4323-8 #### FELIPA LEWIS ([id number]) [facility] ([facility]) [address] [place] [address] 41970 Creatinine [Mass/Vol] 0.89 mg/dL Normal 0.50-1.05 [facility] Comment on above: Performed By: #### 2 4323-8 #### FELIPA LEWIS ([id number]) [facility] ([facility]) [address] [place] [address] 39223 Glomerular filtration rate/1.73 sq M.predicted 85 mL/min/1.73m*2 Normal >60 [facility] Comment on above: Result Comment: Calc ulations of estimated GFR are performed using the 2020 CKD-EPI Study Refit equation without the race variable for the IDMS-Traceable creatinine methods. https://jasn.asnjournals.org/content/early//ASN.024293 4661 Performed By: #### 2 4323-8 #### FELIPA LEWIS ([id number]) [facility] ([facility]) [address] [place] [address] 99352 Glucose [Mass/Vol] 169 mg/dL High 74-99 [facility] Comment on above: Performed By: #### 2 4323-8 #### FELIPA LEWIS ([id number]) [facility] ([facility]) [address] [place] [address] 30858 Potassium [Moles/Vol] 4.2 mmol/L Normal 3.5-5.3 [facility] Comment on above: Performed By: #### 2 4323-8 #### FELIPA LEWIS ([id number]) [facility] ([facility]) [address] [place] [address] 89530 Protein [Mass/Vol] 7.0 g/dL Normal 6.4-8.2 [facility] Comment on above: Performed By: #### 2 4323-8 #### FELIPA LEWIS ([id number]) [facility] ([facility]) [address] [place] [address] 95019 Sodium [Moles/Vol] 137 mmol/L Normal 136-145 [facility] Comment on above: Performed By: #### 2 4323-8 #### FELIPA LEWIS ([id number]) [facility] ([facility]) [address] [place] [address] Urea nitrogen [Mass/Vol] 19 mg/dL Normal 6-23 [facility] Comment on above: Performed By: #### 2 4323-8 #### FELIPA LEWIS ([id number]) [facility] ([facility]) [address] [place], [place] [id number] Lactateon 01-27-2025 Lactate [Moles/Vol] 1.2 mmol/L 0.4 - 2. 0 mmol/L [facility] Lactate [Moles/Vol] 1.2 mmol/L Normal 0.4-2.0 [facility] Comment on above: Order Comment: Venip uncture immediately after or during the administration of Metamizole may lead to falsely low results. Testing should be performed immediately prior to Metamizole dosing. Performed By: #### 2 4323-8 #### FELIPA LEWIS ([id number]) [facility] ([facility]) [address] [place] [address] Lactate [Moles/Vol]on 2024 Venipuncture immediately after or during the administration of Metamizole may lead to falsely low results. Testing should be performed immediately prior to Metamizole dosing. [facility] Magnesiumon 01-27-2025 Magnesium [Mass/Vol] 2.09 mg/dL 1.60 - 2.40 mg/dL [facility] Magnesium [Mass/Vol] 2.09 mg/dL Normal 1.60-2.40 [facility] Comment on above: Performed By: #### 2 4323-8 #### FELIPA LEWIS ([id number]) [facility] ([facility]) [address] [place] [address] No Panel Informationon 01-27 Interpretation and review of laboratory results Normal [facility] Urinalysis complete W Reflex Culture panel (U)on 01-27-2025 Appearance (U) Clear Clear [facility] Bilirubin (U) [Mass/Vol] Negative NEGATIVE mg/dL [facility] Color (U) Light-Yellow Light-Yellow , Yellow, Dark-Yellow [facility] Crystals.amorphous Computer assisted (U) [#/Area] 1+ NONE, 1+, 2+ /HPF [facility] Epithelial cells.squamous Auto (Urine sed) [#/Area] 1-9 (SPARSE) Reference range not established. /HPF [facility] Glucose Auto test strip (U) [Mass/Vol] 300 (3+) Abnormal Normal mg/dL [facility] Interpretation and review of laboratory results Abnormal [facility] Ketones (U) [Mass/Vol] Negative NEGATIVE mg/dL [facility] Leukocyte esterase Auto test strip Ql (U) Negative NEGATIVE [facility] Mucus Auto (Urine sed) [#/Area] FEW Reference range not established. /LPF [facility] Nitrite Auto test strip Ql (U) Negative NEGATIVE [facility] pH (U) 7.5 [pH] 5.0, 5.5, 6.0, 6.5, 7.0, 7.5, 8.0 [facility] Protein (U) [Mass/Vol] 20 (TRACE) NEGATIVE, 10 (TRACE), 20 (TRACE) mg/dL [facility] RBC (U) [#/Vol] Negative NEGATIVE mg/dL [facility] RBC Auto (Urine sed) [#/Area] NONE NONE, 1-2, 3-5 /HPF [facility] Specific gravity (U) [Rel density] 1.028 1.005 - 1.035 [facility] Urobilinogen (U) [Mass/Vol] 3 (1+) Abnormal Normal mg/dL [facility] Comment on above: Some pigments and me dications may cause a false positive urobilinogen. WBC Auto (Urine sed) [#/Area] NONE 1-5, NONE /HPF [facility] Appearance (U) Clear Normal Clear [facility] Comment on above: Performed By: #### 2 4323-8 #### LEO JOSHUA ([id number]) [facility] ([facility]) [address] [place] [address] Bilirubin (U) [Mass/Vol] Negative Normal NEGATIVE [facility] Comment on above: Performed By: #### 2 4323-8 #### FELIPA LEWIS ([id number]) [facility] ([facility]) [address] [place] [address] Color (U) Light-Yellow Normal Light-Yellow , Yellow, Dark-Yellow [facility] Comment on above: Performed By: #### 2 4323-8 #### FELIPA LEWIS ([id number]) [facility] ([facility]) [address] [place] [address] Crystals.amorphous Computer assisted (U) [#/Area] 1+ /HPF Normal NONE, 1+, 2+ [facility] Comment on above: Performed By: #### 2 4323-8 #### FELIPA LEWIS ([id number]) [facility] ([facility]) [address] [place] [address] Epithelial cells.squamous Auto (Urine sed) [#/Area] 1-9 (SPARSE) Normal Reference range not established. [facility] Comment on above: Performed By: #### 2 4323-8 #### FELIPA LEWIS ([id number]) [facility] ([facility]) [address] [place] [address] Glucose Auto test strip (U) [Mass/Vol] 300 (3+) Abnormal Normal [facility] Comment on above: Performed By: #### 2 4323-8 #### FELIPA LEWIS ([id number]) [facility] ([facility]) [address] [place], [place] [id number] Ketones (U) [Mass/Vol] Negative Normal NEGATIVE [facility] Comment on above: Performed By: #### 2 4323-8 #### FELIPA LEWIS ([id number]) [facility] ([facility]) [address] [place], [place] [id number] Leukocyte esterase Auto test strip Ql (U) Negative Normal NEGATIVE [facility] Comment on above: Performed By: #### 2 4323-8 #### FELIPA LEWIS ([id number]) [facility] ([facility]) [address] [place], [place] [id number] Mucus Auto (Urine sed) [#/Area] FEW Normal Reference range not established. [facility] Comment on above: Performed By: #### 2 4323-8 #### FELIPA LEWIS ([id number]) [facility] ([facility]) [address] [place] [address] 14853 Nitrite Auto test strip Ql (U) Negative Normal NEGATIVE [facility] Comment on above: Performed By: #### 2 4323-8 #### FELIPA LEWIS ([id number]) [facility] ([facility]) [address] [place] [address] 41786 pH (U) 7.5 [pH] Normal 5.0, 5.5, 6.0, 6.5, 7.0, 7.5, 8.0 [facility] Comment on above: Performed By: #### 2 4323-8 #### FELIPA LEWIS ([id number]) [facility] ([facility]) [address] [place] [address] 38770 Protein (U) [Mass/Vol] 20 (TRACE) Normal NEGATIVE, 10 (TRACE), 20 (TRACE) [facility] Comment on above: Performed By: #### 2 4323-8 #### FELIPA LEWIS ([id number]) [facility] ([facility]) [address] [place] [address] 07982 RBC (U) [#/Vol] Negative Normal NEGATIVE [facility] Comment on above: Performed By: #### 2 4323-8 #### FELIPA LEWIS ([id number]) [facility] ([facility]) [address] [place] [address] 68377 RBC Auto (Urine sed) [#/Area] NONE Normal NONE, 1-2, 3-5 [facility] Comment on above: Performed By: #### 2 4323-8 #### FELIPA LEWIS ([id number]) [facility] ([facility]) [address] [place] [address] 97855 Specific gravity (U) [Rel density] 1.028 Normal 1.005-1.035 [facility] Comment on above: Performed By: #### 2 4323-8 #### FELIPA LEWIS ([id number]) [facility] ([facility]) [facility] [place] [address] Urobilinogen (U) [Mass/Vol] 3 (1+) Abnormal Normal [facility] Comment on above: Result Comment: Some pigments and medications may cause a false positive urobilinogen. Performed By: #### 2 4323-8 #### FELIPA LEWIS ([id number]) [facility] ([facility]) [address] [place] [address] WBC Auto (Urine sed) [#/Area] NONE Normal 1-5, NONE [facility] Comment on above: Performed By: #### 2 4323-8 #### FELIPA LEWIS ([id number]) [facility] ([facility]) [address] [place] [address] CBC W Auto Differential pane l (Bld)on 12-31-2024 Basophils (Bld) [#/Vol] 0.05 10*3/uL [facility] Basophils/100 WBC (Bld) 0.5 % 0.0 - 2.0 % [facility] Eosinophils (Bld) [#/Vol] 0.01 10*3/uL [facility] Eosinophils/100 WBC (Bld) 0.1 % 0.0 - 6.0 % [facility] Erythrocyte distribution width (RBC) [Ratio] 15.9 % High 11.5 - 14.5 % [facility] Hematocrit (Bld) [Volume fraction] 40.9 % 36.0 - 46.0 % [facility] Hemoglobin (Bld) [Mass/Vol] 14.1 g/dL 12.0 - 16.0 g/dL [facility] Immature granulocytes (Bld) [#/Vol] 0.1 10*3/uL [facility] Immature granulocytes/100 WBC (Bld) 1 % High 0.0 - 0.9 % [facility] Comment on above: Immature Granulocyte Count (IG) includes promyelocytes, myelocytes and metamyelocytes but does not include bands. Percent differential counts (%) should be interpreted in the context of the absolute cell counts (cells/UL). Interpretation and review of laboratory results Abnormal [facility] Lymphocytes (Bld) [#/Vol] 2.85 10*3/uL [facility] Lymphocytes/100 WBC (Bld) 27.5 % 13.0 - 44.0 % [facility] MCH (RBC) [Entitic mass] 29.6 pg 26.0 - 34.0 pg [facility] MCHC (RBC) [Mass/Vol] 34.5 g/dL 32.0 - 36.0 g/dL [facility] MCV (RBC) [Entitic vol] 86 fL 80 - 100 fL [facility] Monocytes (Bld) [#/Vol] 0.67 10*3/uL [facility] Monocytes/100 WBC (Bld) 6.5 % 2.0 - 10.0 % [facility] Neutrophils (Bld) [#/Vol] 6.69 10*3/uL [facility] Comment on above: Percent differential counts (%) should be interpreted in the context of the absolute cell counts (cells/uL). Neutrophils/100 WBC (Bld) 64.4 % 40.0 - 80.0 % [facility] Nucleated RBC/100 WBC (Bld) [Ratio] 0 % [facility] Platelets (Bld) [#/Vol] 236 10*3/uL [facility] RBC (Bld) [#/Vol] 4.77 10*6/uL [facility] WBC (Bld) [#/Vol] 10.4 10*3/uL [facility] Basophils (Bld) [#/Vol] 0.05 x10*3/uL Normal 0.00-0.10 [facility] Comment on above: Performed By: #### 1 9123-9 #### FELIPA LEWIS ([id number]) [facility] ([facility]) [address] [place] [address] 62279 Basophils/100 WBC (Bld) 0.5 % Normal 0.0-2.0 [facility] Comment on above: Performed By: #### 1 9123-9 #### FELIPA LEWIS ([id number]) [facility] ([facility]) [address] [place] [address] 79353 Eosinophils (Bld) [#/Vol] 0.01 x10*3/uL Normal 0.00-0.70 [facility] Comment on above: Performed By: #### 1 9123-9 #### FELIPA LEWIS ([id number]) [facility] ([facility]) [address] [place] [address] 32712 Eosinophils/100 WBC (Bld) 0.1 % Normal 0.0-6.0 [facility] Comment on above: Performed By: #### 1 9123-9 #### FELIPA LEWIS ([id number]) [facility] ([facility]) [address] [place] [address] 53505 Erythrocyte distribution width (RBC) [Ratio] 15.9 % High 11.5-14.5 [facility] Comment on above: Performed By: #### 1 9123-9 #### FELIPA LEWIS ([id number]) [facility] ([facility]) [address] [place] [address] 59950 Hematocrit (Bld) [Volume fraction] 40.9 % Normal 36.0-46.0 [facility] Comment on above: Performed By: #### 1 9123-9 #### FELIPA LEWIS ([id number]) [facility] ([facility]) [address] [place] [address] 10936 Hemoglobin (Bld) [Mass/Vol] 14.1 g/dL Normal 12.0-16.0 [facility] Comment on above: Performed By: #### 1 9123-9 #### FELIPA LEWIS ([id number]) [facility] ([facility]) [address] [place] [address] 69998 Immature granulocytes (Bld) [#/Vol] 0.10 x10*3/uL Normal 0.00-0.70 [facility] Comment on above: Performed By: #### 1 9123-9 #### FELIPA LEWIS ([id number]) [facility] ([facility]) [address] [place] [address] 32033 Immature granulocytes/100 WBC (Bld) 1.0 % High 0.0-0.9 [facility] Comment on above: Result Comment: Felisa ture Granulocyte Count (IG) includes promyelocytes, myelocytes and metamyelocytes but does not include bands. Percent differential counts (%) should be interpreted in the context of the absolute cell counts (cells/UL). Performed By: #### 1 9123-9 #### FELIPA LEWIS ([id number]) [facility] ([facility]) [address] [place] [address] 61297 Lymphocytes (Bld) [#/Vol] 2.85 x10*3/uL Normal 1.20-4.80 [facility] Comment on above: Performed By: #### 1 9123-9 #### FELIPA LEWIS ([id number]) [facility] ([facility]) [address] [place] [address] 40686 Lymphocytes/100 WBC (Bld) 27.5 % Normal 13.0-44.0 [facility] Comment on above: Performed By: #### 1 9123-9 #### FELIPA LEWIS ([id number]) [facility] ([facility]) [address] [place] [address] 02716 MCH (RBC) [Entitic mass] 29.6 pg Normal 26.0-34.0 [facility] Comment on above: Performed By: #### 1 9123-9 #### FELIPA LEWIS ([id number]) [facility] ([facility]) [address] [place] [address] 72222 MCHC (RBC) [Mass/Vol] 34.5 g/dL Normal 32.0-36.0 [facility] Comment on above: Performed By: #### 1 9123-9 #### FELIPA LEWIS ([id number]) [facility] ([facility]) [address] [place] [address] 26483 MCV (RBC) [Entitic vol] 86 fL Normal 80-100 [facility] Comment on above: Performed By: #### 1 9123-9 #### FELIPA LEWIS ([id number]) [facility] ([facility]) [address] [place] [address] 17976 Monocytes (Bld) [#/Vol] 0.67 x10*3/uL Normal 0.10-1.00 [facility] Comment on above: Performed By: #### 1 9123-9 #### FELIPA LEWIS ([id number]) [facility] ([facility]) [address] [place] [address] 61033 Monocytes/100 WBC (Bld) 6.5 % Normal 2.0-10.0 [facility] Comment on above: Performed By: #### 1 9123-9 #### FELIPA LEWIS ([id number]) [facility] ([facility]) [address] [place] [address] 56580 Neutrophils (Bld) [#/Vol] 6.69 x10*3/uL Normal 1.20-7.70 [facility] Comment on above: Result Comment: Perc ent differential counts (%) should be interpreted in the context of the absolute cell counts (cells/uL). Performed By: #### 1 9123-9 #### FELIPA LEWIS ([id number]) [facility] ([facility]) [address] [place] [address] 03554 Neutrophils/100 WBC (Bld) 64.4 % Normal 40.0-80.0 [facility] Comment on above: Performed By: #### 1 9123-9 #### FELIPA LEWIS ([id number]) [facility] ([facility]) [address] [place] [address] 17327 Nucleated RBC/100 WBC (Bld) [Ratio] 0.0 /100 WBCs Normal 0.0-0.0 [facility] Comment on above: Performed By: #### 1 9123-9 #### FELIPA LEWIS ([id number]) [facility] ([facility]) [address] [place] [address] 38187 Platelets (Bld) [#/Vol] 236 x10*3/uL Normal 150-450 [facility] Comment on above: Performed By: #### 1 9123-9 #### FELIPA LEWIS ([id number]) [facility] ([facility]) [address] [place] [address] 87574 RBC (Bld) [#/Vol] 4.77 x10*6/uL Normal 4.00-5.20 [facility] Comment on above: Performed By: #### 1 9123-9 #### FELIPA LEWIS ([id number]) [facility] ([facility]) [address] [place] [address] WBC (Bld) [#/Vol] 10.4 x10*3/uL Normal 4.4-11.3 [facility] Comment on above: Performed By: #### 1 9123-9 #### FELIPA LEWIS ([id number]) [facility] ([facility]) [address] [place] [address] Comprehensive metabolic 2000 panelon 12-31-2024 Albumin BCP dye [Mass/Vol] 4.5 g/dL 3.4 - 5.0 g/dL [facility] ALP [Catalytic activity/Vol] 64 U/L 33 - 110 U/L [facility] ALT With P-5'-P [Catalytic activity/Vol] 18 U/L 7 - 45 U/L [facility] Comment on above: Patients treated wit h Sulfasalazine may generate falsely decreased results for ALT. Anion gap [Moles/Vol] 16 mmol/L 10 - 2 0 mmol/L [facility] AST With P-5'-P [Catalytic activity/Vol] 23 U/L 9 - 39 U/L [facility] Comment on above: MILD HEMOLYSIS DETEC DERRICK. The result may be falsely elevated due to hemolysis or other interferents. Clinical correlation is recommended. Repeat testing may be considered. Bilirubin [Mass/Vol] 1.3 mg/dL High 0.0 - 1 .2 mg/dL [facility] Calcium [Mass/Vol] 9.8 mg/dL 8.6 - 10. 3 mg/dL [facility] Chloride [Moles/Vol] 101 mmol/L 98 - 10 7 mmol/L [facility] CO2 [Moles/Vol] 22 mmol/L 21 - 32 mmol/L [facility] Creatinine [Mass/Vol] 0.88 mg/dL 0.50 - 1.05 mg/dL [facility] GFR/1.73 sq M.predicted among non-blacks MDRD (S/P/Bld) [Vol rate/Area] 86 mL/min/{1.73_m2} - PINF [facility] Comment on above: Calculations of kayleigh mated GFR are performed using the 2020 CKD-EPI Study Refit equation without the race variable for the IDMS-Traceable creatinine methods. https://jasn.asnjournals.org/content/early/ASN.606987 6359 Glucose [Mass/Vol] 239 mg/dL High 74 - 99 mg/dL [facility] Interpretation and review of laboratory results Abnormal [facility] Potassium [Moles/Vol] 3.9 mmol/L 3.5 - 5.3 mmol/L [facility] Comment on above: MILD HEMOLYSIS DETEC DERRICK. The result may be falsely elevated due to hemolysis or other interferents. Clinical correlation is recommended. Repeat testing may be considered. Protein [Mass/Vol] 7.4 g/dL 6.4 - 8.2 g/dL [facility] Sodium [Moles/Vol] 135 mmol/L Low 136 - 145 mmol/L [facility] Urea nitrogen [Mass/Vol] 18 mg/dL 6 - 23 mg/dL [facility] Albumin BCP dye [Mass/Vol] 4.5 g/dL Normal 3.4-5.0 [facility] Comment on above: Performed By: #### 1 9123-9 #### FELIPA LEWIS ([id number]) [facility] ([facility]) [address] [place] [address] ALP [Catalytic activity/Vol] 64 U/L Normal 33-110 [facility] Comment on above: Performed By: #### 1 9123-9 #### FELIPA ELWIS ([id number]) [facility] ([facility]) [address] [place] [address] 36910 ALT With P-5'-P [Catalytic activity/Vol] 18 U/L Normal 7-45 [facility] Comment on above: Result Comment: Renetta ents treated with Sulfasalazine may generate falsely decreased results for ALT. Performed By: #### 1 9123-9 #### FELIPA LEWIS ([id number]) [facility] ([facility]) [address] [place] [address] Anion gap [Moles/Vol] 16 mmol/L Normal 10-20 [facility] Comment on above: Performed By: #### 1 9123-9 #### FELIPA LEWIS ([id number]) [facility] ([facility]) [address] [place] [address] AST With P-5'-P [Catalytic activity/Vol] 23 U/L Normal 9-39 [facility] Comment on above: Result Comment: MILD HEMOLYSIS DETECTED. The result may be falsely elevated due to hemolysis or other interferents. Clinical correlation is recommended. Repeat testing may be considered. Performed By: #### 1 9123-9 #### FELIPA LEWIS ([id number]) [facility] ([facility]) [address] [place] [address] 65776 Bilirubin [Mass/Vol] 1.3 mg/dL High 0.0-1.2 [facility] Comment on above: Performed By: #### 1 9123-9 #### FELIPA LEWIS ([id number]) [facility] ([facility]) [address] [place] [address] 82827 Calcium [Mass/Vol] 9.8 mg/dL Normal 8.6-10.3 [facility] Comment on above: Performed By: #### 1 9123-9 #### FELIPA LEWIS ([id number]) [facility] ([facility]) [address] [place] [address] Chloride [Moles/Vol] 101 mmol/L Normal 98-107 [facility] Comment on above: Performed By: #### 1 9123-9 #### FELIPA LEWIS ([id number]) [facility] ([facility]) [address] [place] [address] CO2 [Moles/Vol] 22 mmol/L Normal 21-32 [facility] Comment on above: Performed By: #### 1 9123-9 #### FELIPA LEWIS ([id number]) [facility] ([facility]) [address] [place] [address] Creatinine [Mass/Vol] 0.88 mg/dL Normal 0.50-1.05 [facility] Comment on above: Performed By: #### 1 9123-9 #### FELIPA LEWIS ([id number]) [facility] ([facility]) [address] [place] [id number] Glomerular filtration rate/1.73 sq M.predicted 86 mL/min/1.73m*2 Normal >60 [facility] Comment on above: Result Comment: Calc ulations of estimated GFR are performed using the 2020 CKD-EPI Study Refit equation without the race variable for the IDMS-Traceable creatinine methods. https://jasn.asnjournals.org/content/early/ASN.235744 6542 Performed By: #### 1 9123-9 #### FELIPA LEWIS ([id number]) [place] [facility] ([facility]) [address] [place] [address] Glucose [Mass/Vol] 239 mg/dL High 74-99 [facility] Comment on above: Performed By: #### 1 9123-9 #### FELIPA LEWIS ([id number]) [facility] ([facility]) [address] [place] [address] 27120 Potassium [Moles/Vol] 3.9 mmol/L Normal 3.5-5.3 [facility] Comment on above: Result Comment: MILD HEMOLYSIS DETECTED. The result may be falsely elevated due to hemolysis or other interferents. Clinical correlation is recommended. Repeat testing may be considered. Performed By: #### 1 9123-9 #### FELIPA LEWIS ([id number]) [facility] ([facility]) [address] [place] [address] 51313 Protein [Mass/Vol] 7.4 g/dL Normal 6.4-8.2 [facility] Comment on above: Performed By: #### 1 9123-9 #### FELIPA LEWIS ([id number]) [facility] ([facility]) [address] [place] [address] 36073 Sodium [Moles/Vol] 135 mmol/L Low 136-145 [facility] Comment on above: Performed By: #### 1 9123-9 #### FELIPA LEWIS ([id number]) [facility] ([facility]) [address] [place] [address] Urea nitrogen [Mass/Vol] 18 mg/dL Normal 6-23 [facility] Comment on above: Performed By: #### 1 9123-9 #### LEO JOSHUA ([id number]) [facility] ([facility]) [address] [place] [address] D-Dimer, VTE Exclusionon Fibrin D-dimer FEU (PPP) [Mass/Vol] 359 NINF [facility] ECG 12-LEADon 12-31-2024 ECG 12-LEAD Ventricular Rate 128 Atrial Rate 128 P-R Interval 124 QRS Duration 64 Q-T Interval 300 QTC Calculation(Bazett) 438 P [place] 18 R [place] -4 T [place] 38 QRS Count 21 Q Onset 221 P Onset 159 P Offset 199 T Offset 371 QTC Fredericia 386 Diagnosis Sinus tachycardia Minimal voltage criteria for LVH, may be normal variant ( R in aVL ) Inferior infarct , age undetermined Anterior infarct , age undetermined Abnormal ECG See ED provider note for full interpretation and clinical correlation Confirmed by Freedom Cordon ([id number]) on 01/01/2025 2:15:23 PM Normal [facility] FLUAV and FLUBV RNA TAMMY+prob e Nom (Unsp spec)on 12-31-2024 FLUAV RNA TAMMY+probe Ql (Resp) Not detected Not Detected [facility] FLUBV RNA TAMMY+probe Ql (Resp) Not detected Not Detected [facility] This assay is an in vitro diagnostic multiplex nucleic acid amplification test for the detection and discrimination of Influenza A & B from nasopharyngeal specimens, and has been validated for use at [facility]. Negative results do not preclude Influenza A/B infections, and should not be used as the sole basis for diagnosis, treatment, or other management decisions. If Influenza A/B and RSV PCR results are negative, testing for Parainfluenza virus, Adenovirus and Metapneumovirus is routinely performed for [facility] pediatric oncology and intensive care inpatients, and is available on other patients by placing an add-on request. [facility] FLUAV RNA TAMMY+probe Ql (Resp) Not detected Normal Not Detected [facility] Comment on above: Order Comment: This assay is an in vitro diagnostic multiplex nucleic acid amplification test for the detection and discrimination of Influenza A & B from nasopharyngeal specimens, and has been validated for use at [facility]. Negative results do not preclude Influenza A/B infections, and should not be used as the sole basis for diagnosis, treatment, or other management decisions. If Influenza A/B and RSV PCR results are negative, testing for Parainfluenza virus, Adenovirus and Metapneumovirus is routinely performed for [facility] pediatric oncology and intensive care inpatients, and is available on other patients by placing an add-on request. Performed By: #### 2 4323-8 #### FELIPA LEWIS ([id number]) [facility] ([facility]) [address] [place] [address] FLUBV RNA TAMMY+probe Ql (Resp) Not detected Normal Not Detected [facility] Comment on above: Order Comment: This assay is an in vitro diagnostic multiplex nucleic acid amplification test for the detection and discrimination of Influenza A & B from nasopharyngeal specimens, and has been validated for use at [facility]. Negative results do not preclude Influenza A/B infections, and should not be used as the sole basis for diagnosis, treatment, or other management decisions. If Influenza A/B and RSV PCR results are negative, testing for Parainfluenza virus, Adenovirus and Metapneumovirus is routinely performed for [facility] pediatric oncology and intensive care inpatients, and is available on other patients by placing an add-on request. Performed By: #### 2 4323-8 #### FELIPA LEWIS ([id number]) [facility] ([facility]) [address] [place], [place] [id number] Fibrin D-dimer FEUon 12-31- 025 Fibrin D-dimer FEU (PPP) [Mass/Vol] 359 ng/mL FEU Normal <=500 [facility] Comment on above: Order Comment: The V TE Exclusion D-Dimer assay is reported in ng/mL Fibrinogen Equivalent Units (FEU).Per seafood specialist's instructions for use, a value of less than 500 ng/mL (FEU) may help to exclude DVT or PE in outpatients when the assay is used with a clinical pretest probability assessment.(AEMR must utilize and document eCalc 'Wells Score Deep Vein Thrombosis Risk' for DVT exclusion only. Emergency Department should utilize Guidelines for Emergency Department Use of the VTE Exclusion D-Dimer and Clinical Pretest probability assessment model for DVT or PE exclusion.) Performed By: #### 1 9123-9 #### FELIPA LEWIS ([id number]) [facility] ([facility]) [address] [place] [address] Fibrin D-dimer FEU (PPP) [Ma ss/Vol]on 12-31-2024 Interpretation and review of laboratory results Normal [facility] The VTE Exclusion D-Dimer assay is reported in ng/mL Fibrinogen Equivalent Units (FEU). Per seafood specialist's instructions for use, a value of less than 500 ng/mL (FEU) may help to exclude DVT or PE in outpatients when the assay is used with a clinical pretest probability assessment.(AEMR must utilize and document eCalc 'Wells Score Deep Vein Thrombosis Risk' for DVT exclusion only. Emergency Department should utilize Guidelines for Emergency Department Use of the VTE Exclusion D-Dimer and Clinical Pretest probability assessment model for DVT or PE exclusion.) [facility] Magnesiumon 12-31-2024 Magnesium [Mass/Vol] 1.7 mg/dL 1.60 - 2.40 mg/dL [facility] Magnesium [Mass/Vol] 1.70 mg/dL Normal 1.60-2.40 [facility] Comment on above: Performed By: #### 1 9123-9 #### FELIPA LEWIS ([id number]) [facility] ([facility]) [address] [place] [address] Magnesium [Mass/Vol]on 12-31 Interpretation and review of laboratory results Normal [facility] No Panel Informationon 12-31 Interpretation and review of laboratory results Normal [facility] Interpretation and review of laboratory results Normal [facility] SARS coronavirus 2 RNAon SARS-CoV-2 (COVID-19) RNA TAMMY+probe Ql (Resp) Not detected Normal Not Detected [facility] Comment on above: Order Comment: This assay is an FDA-cleared, in vitro diagnostic nucleic acid amplification test for the qualitative detection and differentiation of SARS CoV-2 from nasopharyngeal specimens collected from individuals with signs and symptoms of respiratory tract infections, and has been validated for use at [facility]. Negative results do not preclude COVID-19 infections and should not be used as the sole basis for diagnosis, treatment, or other management decisions. Testing for SARS CoV-2 is recommended only for patients who meet current clinical and/or epidemiological criteria defined by federal, state, or local public health directives. Performed By: #### 2 4323-8 #### FELIAP LEWIS ([id number]) [facility] ([facility]) [address] [place] [address] SARS-CoV-2 (COVID-19) RNA NA A+probe Ql (Resp)on 12-31-2024 This assay is an FDA-cleared, in vitro diagnostic nucleic acid amplification test for the qualitative detection and differentiation of SARS CoV-2 from nasopharyngeal specimens collected from individuals with signs and symptoms of respiratory tract infections, and has been validated for use at [facility]. Negative results do not preclude COVID-19 infections and should not be used as the sole basis for diagnosis, treatment, or other management decisions. Testing for SARS CoV-2 is recommended only for patients who meet current clinical and/or epidemiological criteria defined by federal, state, or local public health directives. [facility] Sars-CoV-2 PCRon 12-31-2024 SARS-CoV-2 (COVID-19) RNA TAMMY+probe Ql (Resp) Not detected Not Detected [facility] TSH WITH REFLEX TO FREE T4 I F ABNORMALon 12-31-2024 TSH Qn 2.18 m[IU]/L Normal 0.44-3.98 [facility] Comment on above: Order Comment: TSH t esting is performed using different testing methodology at [facility] than at other [facility]. Direct result comparisons should only be made within the same method. Performed By: #### 1 9123-9 #### FELIPA LEWIS ([id number]) [facility] ([facility]) [address] [place], [place] [id number] TSH with reflex to Free T4 i f abnormalon 12-31-2024 TSH Qn 2.18 m[IU]/L [facility] TSH testing is performed using different testing methodology at [facility] than at other [facility]. Direct result comparisons should only be made within the same method. [facility] Tropinin I.cardiac panel Hig h sensitivity methodon 12-31-2024 Less than 99th percentile of normal range cutoff- Female and children under 18 years old <14 ng/L; Male <21 ng/L: Negative Repeat testing should be performed if clinically indicated. Female and children under 18 years old 14-50 ng/L; Male 21-50 ng/L: Consistent with possible cardiac damage and possible increased clinical risk. Serial measurements may help to assess extent of myocardial damage. >50 ng/L: Consistent with cardiac damage, increased clinical risk and myocardial infarction. Serial measurements may help assess extent of myocardial damage. NOTE: Children less than 1 year old may have higher baseline troponin levels and results should be interpreted in conjunction with the overall clinical context. NOTE: Troponin I testing is performed using a different testing methodology at [facility] than at other [facility]. Direct result comparisons should only be made within the same method. [facility] Troponin I, High Sensitivity on 12-31-2024 Tropinin I.cardiac panel High sensitivity method 3 ng/L 0 - 13 ng/L [facility] Troponin I.cardiac panelon 0 12-31-2024 Tropinin I.cardiac panel High sensitivity method 3 ng/L Normal 0-13 [facility] Comment on above: Order Comment: Less than 99th percentile of normal range cutoff-Female and children under 18 years old <14 ng/L; Male <21 ng/L: NegativeRepeat testing should be performed if clinically indicated.Female and children under 18 years old 14-50 ng/L; Male 21-50 ng/L:Consistent with possible cardiac damage and possible increased clinicalrisk. Serial measurements may help to assess extent of myocardial damage.>50 ng/L: Consistent with cardiac damage, increased clinical risk andmyocardial infarction. Serial measurements may help assess extent ofmyocardial damage.NOTE: Children less than 1 year old may have higher baseline troponinlevels and results should be interpreted in conjunction with the overallclinical context.NOTE: Troponin I testing is performed using a differenttesting methodology at [facility] Direct result comparisons should onlybe made within the same method. Performed By: #### 1 9123-9 #### LEO JOSHUA ([id number]) [facility] ([facility]) [address] [place] [id number] XR CHEST 1 VIEWon 12-31-2024 XR CHEST 1 VIEW Interpreted By: Jose Luis Winchester, STUDY: XR CHEST 1 VIEW; 12/31/2024 2:19 pm INDICATION: Signs/Symptoms:dyspnea. COMPARISON: 11/26/2024 ACCESSION NUMBER(S): [id number] ORDERING CLINICIAN: WOLF MARIN FINDINGS: CARDIOMEDIASTINAL SILHOUETTE: Cardiomediastinal silhouette is normal in size and configuration. LUNGS: Lungs are clear. ABDOMEN: No remarkable upper abdominal findings. BONES: No acute osseous changes. IMPRESSION: 1. No evidence of acute cardiopulmonary process. MACRO: None Signed by: Jose Luis Winchester 12/31/2024 2:29 PM Dictation workstation: [id number] [facility] XR Chest Single viewon 12-31 1. No evidence of [place] cardiopulmonary process. MACRO: None Signed by: Jose Luis Winchester 12/31/2024 2:29 PM Dictation workstation: [id number] MMODAL Interpreted By: Jose Luis Winchester, STUDY: XR CHEST 1 VIEW; 12/31/2024 2:19 pm INDICATION: Signs/Symptoms:dyspnea. COMPARISON: 11/26/2024 ACCESSION NUMBER(S): [id number] ORDERING CLINICIAN: WOLF MARIN FINDINGS: CARDIOMEDIASTINAL SILHOUETTE: Cardiomediastinal silhouette is normal in size and configuration. LUNGS: Lungs are clear. ABDOMEN: No remarkable upper abdominal findings. BONES: No acute osseous changes. MMODAL Jose Luis Winchester MD - 12/31/2024 Interpreted By: Jose Luis Winchester, STUDY: XR CHEST 1 VIEW; 12/31/2024 2:19 pm INDICATION: Signs/Symptoms:dyspnea. COMPARISON: 11/26/2024 ACCESSION NUMBER(S): [id number] ORDERING CLINICIAN: WOLF MARIN FINDINGS: CARDIOMEDIASTINAL SILHOUETTE: Cardiomediastinal silhouette is normal in size and configuration. LUNGS: Lungs are clear. ABDOMEN: No remarkable upper abdominal findings. BONES: No acute osseous changes. IMPRESSION: 1. No evidence of acute cardiopulmonary process. MACRO: None Signed by: Jose Luis Winchester 12/31/2024 2:29 PM Dictation workstation: [id number] [facility] Work Phone: Radiology Study observation (narrative) [facility] Work Phone: XR Chest Single viewOrdered By: Jose Luis Winchester on 12-31-2024 [facility] Work Phone: ALBUMIN, RANDOM URINE W/CREA TININEon 12-16-2024 ALBUMIN, URINE 2.3 mg/dL Normal See Note: [facility] Comment on above: Result Comment: Refe rence Range: Reference Range Not established Performed By: #### 7 573, 7600, 16793, 83890, 6399, 51360, 03926, 43617, 457, 927 #### [facility] [address], [address] [place], [place] [address] School Age Teacher: Stew Silva MD ALBUMIN/CREATININE RATIO, RANDOM URINE 45 mg/g creat High <30 [facility] Comment on above: Result Comment: The ADA defines abnormalities in albumin excretion as follows: Albuminuria Category Result (mg/g creatinine) Normal to Mildly increased <30 Moderately increased 30-299 Severely increased > OR = 300 The ADA recommends that at least two of three specimens collected within a 3-6 month period be abnormal before considering a patient to be within a diagnostic category. Performed By: #### 7 573, 7600, 29742, 95263, 6399, 08506, 53556, 34453, 457, 927 #### [facility] [address], [address] [place], [place] [address] School Age Teacher: Stew Silva MD Creatinine (U) [Mass/Vol] 51 mg/dL Normal 20-275 [facility] Comment on above: Performed By: #### 7 573, 7600, 13526, 10636, 6399, 90332, 96374, 11460, 457, 927 #### [facility] [place] [address] School Age Teacher: Stew Silva MD CBC (INCLUDES DIFF/PLT)on Basophils (Bld) [#/Vol] 0.041 10*3/uL Normal 0-200 [facility] Comment on above: Performed By: #### 7 573, 7600, 96815, 50373, 6399, 86712, 36140, 45904, 457, 927 #### [facility] of [place] [address] School Age Teacher: Stew Silva MD Basophils/100 WBC (Bld) 0.8 % Normal [facility] Comment on above: Performed By: #### 7 573, 7600, 97564, 65487, 6399, 40595, 95599, 55262, 457, 927 #### [facility] [place] [address] School Age Teacher: Stew Silva MD Eosinophils (Bld) [#/Vol] 0 10*3/uL Low 15-500 [facility] Comment on above: Performed By: #### 7 573, 7600, 23513, 13607, 6399, 51355, 24581, 86642, 457, 927 #### [facility] [place] [address] [employer] Age Teacher: Stew Silva MD Eosinophils/100 WBC (Bld) 0.0 % Normal [facility] Comment on above: Performed By: #### 7 573, 7600, 99122, 20454, 6399, 96980, 60518, 01121, 457, 927 #### [facility] of [place] [address] School Age Teacher: Stew Silva MD Erythrocyte distribution width (RBC) [Ratio] 14.4 % Normal 11.0-15.0 [facility] Comment on above: Performed By: #### 7 573, 7600, 10285, 11039, 6399, 05586, 98252, 12855, 457, 927 #### [facility] of [place] [address] School Age Teacher: Stew Silva MD Hematocrit (Bld) [Volume fraction] 40.5 % Normal 35.0-45.0 [facility] Comment on above: Performed By: #### 7 573, 7600, 35450, 86489, 6399, 24667, 20648, 61596, 457, 927 #### [facility] [place] [address] [employer] Age Teacher: Stew Silva MD Hemoglobin (Bld) [Mass/Vol] 13.7 g/dL Normal 11.7-15.5 [facility] Comment on above: Performed By: #### 7 573, 7600, 67792, 15061, 6399, 15340, 31977, 82825, 457, 927 #### [facility] [place] [address] [employer] Age Teacher: Stew Silva MD Lymphocytes (Bld) [#/Vol] 1.341 10*3/uL Normal 850-3900 [facility] Comment on above: Performed By: #### 7 573, 7600, 08068, 00516, 6399, 87352, 50494, 19955, 457, 927 #### [facility] [place] [address] School Age Teacher: Stew Silva MD Lymphocytes/100 WBC (Bld) 26.3 % Normal [facility] Comment on above: Performed By: #### 7 573, 7600, 16911, 98885, 6399, 89690, 14606, 77858, 457, 927 #### [facility] of [place] [address] School Age Teacher: Stew Silva MD MCH (RBC) [Entitic mass] 30.0 pg Normal 27.0-33.0 [facility] Comment on above: Performed By: #### 7 573, 7600, 96952, 80295, 6399, 65268, 57997, 80884, 457, 927 #### [facility] [place] [address] School Age Teacher: Stew Silva MD MCHC (RBC) [Mass/Vol] 33.8 g/dL Normal 32.0-36.[address] [facility] Comment on above: Result Comment: For adults, a slight decrease in the calculated MCHC value (in the range of 30 to 32 g/dL) is most likely not clinically significant; however, it should be interpreted with caution in correlation with other red cell parameters and the patient's clinical condition. Performed By: #### 7 573, 7600, 76063, 46604, 6399, 33700, 28919, 74916, 457, 927 #### [facility] [place] [address] [employer] Age Teacher: Stew Silva MD MCV (RBC) [Entitic vol] 88.6 fL Normal 80.0-100.0 [facility] Comment on above: Performed By: #### 7 573, 7600, 34451, 83142, 6399, 51051, 03506, 57318, 457, 927 #### [facility] [place] [address] School Age Teacher: Stew Silva MD Monocytes (Bld) [#/Vol] 0.291 10*3/uL Normal 200-950 [facility] Comment on above: Performed By: #### 7 573, 7600, 02312, 19390, 6399, 75959, 80890, 91644, 457, 927 #### [facility] of [place] [address] School Age Teacher: Stew Silva MD Monocytes/100 WBC (Bld) 5.7 % Normal [facility] Comment on above: Performed By: #### 7 573, 7600, 23929, 48756, 6399, 39242, 93136, 99142, 457, 927 #### [facility] of [place] [address] School Age Teacher: Stew Silva MD Neutrophils (Bld) [#/Vol] 3.427 10*3/uL Normal 1312-2140 [facility] Comment on above: Performed By: #### 7 573, 7600, 38270, 09700, 6399, 17349, 95173, 19429, 457, 927 #### [facility] of [address], [address] [place] [address] School Age Teacher: Stew Silva MD Neutrophils/100 WBC (Bld) 67.2 % Normal [facility] Comment on above: Performed By: #### 7 573, 7600, 16188, 80088, 6399, 18639, 68408, 95872, 457, 927 #### [facility] of [place] [address] School Age Teacher: Stew Silva MD Platelet mean volume (Bld) [Entitic vol] 10.6 fL Normal 7.5-12.5 [facility] Comment on above: Performed By: #### 7 573, 7600, 97413, 11727, 6399, 85771, 36672, 37914, 457, 927 #### [facility] of [place] [address] School Age Teacher: Stew Silva MD Platelets (Bld) [#/Vol] 236 10*3/uL Normal 140-400 [facility] Comment on above: Performed By: #### 7 573, 7600, 54866, 34857, 6399, 12996, 00860, 89274, 457, 927 #### [facility] of [address], [address] [place] [address] School Age Teacher: Stew Silva MD RBC (Bld) [#/Vol] 4.57 10*6/uL Normal 3.80-5.10 [facility] Comment on above: Performed By: #### 7 573, 7600, 30123, 22268, 6399, 75885, 92684, 14812, 457, 927 #### [facility] of [place] [address] School Age Teacher: Stew Silva MD WBC (Bld) [#/Vol] 5.1 10*3/uL Normal 3.8-10.8 [facility] Comment on above: Performed By: #### 7 573, 7600, 89020, 66341, 6399, 41119, 11323, 67262, 457, 927 #### [facility] of [place] [address] School Age Teacher: Stew Silva MD COMPREHENSIVE METABOLIC PANE L W/ANION GAPon 12-16-2024 Albumin [Mass/Vol] 4.2 g/dL Normal 3.6-5.1 [facility] Comment on above: Performed By: #### 7 573, 7600, 06894, 26260, 6399, 14770, 79421, 08988, 457, 927 #### [facility] [place] [address] School Age Teacher: Stew Silva MD ALP [Catalytic activity/Vol] 75 U/L Normal 31-125 [facility] Comment on above: Performed By: #### 7 573, 7600, 35345, 62322, 6399, 52303, 74182, 45806, 457, 927 #### [facility] of [place] [address] School Age Teacher: Stew Silva MD ALT [Catalytic activity/Vol] 15 U/L Normal 6-29 [facility] Comment on above: Performed By: #### 7 573, 7600, 83928, 41296, 6399, 57811, 97839, 56715, 457, 927 #### [facility] of [place] [address] School Age Teacher: Stew Silva MD AST [Catalytic activity/Vol] 13 U/L Normal 10-30 [facility] Comment on above: Performed By: #### 7 573, 7600, 02243, 01093, 6399, 82465, 50185, 49383, 457, 927 #### [facility] [place] [address] School Age Teacher: Stew Silva MD Bilirubin [Mass/Vol] 0.8 mg/dL Normal 0.2-1.2 [facility] Comment on above: Performed By: #### 7 573, 7600, 99560, 38538, 6399, 23218, 18764, 90567, 457, 927 #### [facility] [place] [address] School Age Teacher: Stew Silva MD Calcium [Mass/Vol] 9.0 mg/dL Normal 8.6-10.2 [facility] Comment on above: Performed By: #### 7 573, 7600, 96162, 94472, 6399, 73754, 10837, 97518, 457, 927 #### [facility] [place] [address] School Age Teacher: Stew Silva MD Chloride [Moles/Vol] 101 mmol/L Normal 98-110 [facility] Comment on above: Performed By: #### 7 573, 7600, 87782, 91510, 6399, 93194, 80432, 23487, 457, 927 #### [facility] [place] [address] School Age Teacher: Stew Silva MD CO2 [Moles/Vol] 26 mmol/L Normal 20-32 [facility] Comment on above: Performed By: #### 7 573, 7600, 91416, 83137, 6399, 34063, 62496, 13300, 457, 927 #### [facility] of [place] [address] School Age Teacher: Stew Silva MD Creatinine [Mass/Vol] 0.54 mg/dL Normal 0.50-0.[address] [facility] Comment on above: Performed By: #### 7 573, 7600, 80010, 79903, 6399, 02123, 49869, 43600, 457, 927 #### [facility] of [address] [place] [address] School Age Teacher: Stew Silva MD ELECTROLYTE BALANCE 9 mmol/L (calc) Normal 7-17 [facility] Comment on above: Performed By: #### 7 573, 7600, 77076, 68422, 6399, 30448, 97919, 61652, 457, 927 #### [facility] [address], [address] [place] [address] School Age Teacher: Stew Silva MD GFR/1.73 sq M.predicted among non-blacks MDRD (S/P/Bld) [Vol rate/Area] 120 mL/min/{1.73_m2} Normal > OR = 60 [facility] Comment on above: Performed By: #### 7 573, 7600, 61476, 88641, 6399, 69230, 38901, 13735, 457, 927 #### [facility] [address], [address] [place] [address] School Age Teacher: Stew Silva MD Glucose [Mass/Vol] 255 mg/dL High 65-99 [facility] Comment on above: Result Comment: Fasting reference interval For someone without known diabetes, a glucose value >125 mg/dL indicates that they may have diabetes and this should be confirmed with a follow-up test. Performed By: #### 7 573, 7600, 89620, 25086, 6399, 41715, 91842, 08293, 457, 927 #### [facility] [place] [address] [employer] Age Teacher: Stew Silva MD Potassium [Moles/Vol] 3.9 mmol/L Normal 3.5-5.3 [facility] Comment on above: Performed By: #### 7 573, 7600, 17580, 91332, 6399, 68580, 03002, 55719, 457, 927 #### [facility] [address], [address] [place] [address] School Age Teacher: Stew Silva MD Protein [Mass/Vol] 6.7 g/dL Normal 6.1-8.1 [facility] Comment on above: Performed By: #### 7 573, 7600, 40693, 72502, 6399, 38572, 18182, 03067, 457, 927 #### [facility] [place] [address] School Age Teacher: Stew Silva MD Sodium [Moles/Vol] 136 mmol/L Normal 135-146 [facility] Comment on above: Performed By: #### 7 573, 7600, 09892, 25777, 6399, 29483, 69383, 80879, 457, 927 #### [facility] [place] [address] School Age Teacher: Stew Silva MD Urea nitrogen [Mass/Vol] 9 mg/dL Normal 7-25 [facility] Comment on above: Performed By: #### 7 573, 7600, 30555, 67845, 6399, 76115, 26762, 49786, 457, 927 #### [facility] [place] [address] School Age Teacher: Stew Silva MD FERRITINon 12-16-2024 Ferritin [Mass/Vol] 21 ng/mL Normal 16-154 [facility] Comment on above: Performed By: #### 7 573, 7600, 98925, 46553, 6399, 52330, 21867, 55685, 457, 927 #### [facility] [place] [address] School Age Teacher: Stew Silva MD HEMOGLOBIN A1c WITH eAGon eAG (mmol/L) 8.7 mmol/L Normal [facility] Comment on above: Performed By: #### 7 573, 7600, 43386, 20265, 6399, 37520, 37985, 63236, 457, 927 #### [facility] [place] [address] School Age Teacher: Stew Silva MD HEMOGLOBIN A1c 7.1 % of total Hgb High <5.7 [facility] Comment on above: Result Comment: For someone without known diabetes, a hemoglobin A1c value of 6.5% or greater indicates that they may have diabetes and this should be confirmed with a follow-up test. For someone with known diabetes, a value <7% indicates that their diabetes is well controlled and a value greater than or equal to 7% indicates suboptimal control. A1c targets should be individualized based on duration of diabetes, age, comorbid conditions, and other considerations. Currently, no consensus exists regarding use of hemoglobin A1c for diagnosis of diabetes for children. Performed By: #### 7 573, 7600, 27009, 60196, 6399, 47293, 13158, 26254, 457, 927 #### [facility] [place] [address] [employer] Age Teacher: Stew Silva MD Magnesium [Mass/Vol] 157 mg/dL Normal [facility] Comment on above: Performed By: #### 7 573, 7600, 09527, 89311, 6399, 16913, 65383, 91601, 457, 927 #### [facility] [place] [address] [employer] Age Teacher: Stew Silva MD IRON AND TOTAL IRON BINDING CAPACITYon 12-16-2024 % SATURATION 16 % (calc) Normal 16-45 [facility] Comment on above: Performed By: #### 7 573, 7600, 61354, 26815, 6399, 09943, 58910, 07683, 457, 927 #### [facility] [place] [address] School Age Teacher: Stew Silva MD IRON BINDING CAPACITY 403 mcg/dL (calc) Normal 250-450 [facility] Comment on above: Performed By: #### 7 573, 7600, 77711, 26410, 6399, 78544, 27781, 61210, 457, 927 #### [facility] [place] [address] [employer] Age Teacher: Stew Silva MD IRON, TOTAL 64 mcg/dL Normal 40-190 [facility] Comment on above: Performed By: #### 7 573, 7600, 90528, 50656, 6399, 07770, 18651, 81665, 457, 927 #### [facility] [place] [address] School Age Teacher: Stew Silva MD LIPID PANEL, [facility] 12-06 Cholesterol [Mass/Vol] 193 mg/dL Normal <200 [facility] Comment on above: Order Comment: FASTI NG:YES FASTING: YES Performed By: #### 7 573, 7600, 29564, 84426, 6399, 34856, 71931, 14184, 457, 927 #### [facility] [place] [address] [employer] Age Teacher: Stew Silva MD Cholesterol in HDL [Mass/Vol] 48 mg/dL Low > OR = 50 [facility] Comment on above: Order Comment: FASTI NG:YES FASTING: YES Performed By: #### 7 573, 7600, 63832, 40896, 6399, 30104, 39822, 64019, 457, 927 #### [facility] [place] [address] School Age Teacher: Stew Silva MD Cholesterol in LDL [Mass/Vol] 108 mg/dL High [facility] Comment on above: Order Comment: FASTI NG:YES FASTING: YES Result Comment: Refe rence range: <100 Desirable range <100 mg/dL for primary prevention; <70 mg/dL for patients with CHD or diabetic patients with > or = 2 CHD risk factors. LDL-C is now calculated using the Nadia calculation, which is a validated novel method providing better accuracy than the Friedewald equation in the estimation of LDL-C. Caesar SS et al. SAMARIA. 2013;310(19): 3808-4319 (http://education.Oxonica.Mobile2Me/faq/UVV128) Performed By: #### 7 573, 7600, 94042, 21246, 6399, 31276, 27881, 17217, 457, 927 #### [facility] [address], [address] [place] [address] School Age Teacher: Stew Silva MD Cholesterol.total/Cho lesterol in HDL [Mass ratio] 4.0 {ratio} Normal <5.0 [facility] Comment on above: Order Comment: FASTI NG:YES FASTING: YES Performed By: #### 7 573, 7600, 40201, 31790, 6399, 75143, 03259, 49270, 457, 927 #### [facility] [address], [address] [place] [address] School Age Teacher: Stew Silva MD NON HDL CHOLESTEROL 145 mg/dL (calc) High <130 [facility] Comment on above: Order Comment: FASTI NG:YES FASTING: YES Result Comment: For patients with diabetes plus 1 major ASCVD risk factor, treating to a non-HDL-C goal of <100 mg/dL (LDL-C of <70 mg/dL) is considered a therapeutic option. Performed By: #### 7 573, 7600, 97686, 18446, 6399, 74254, 82026, 24569, 457, 927 #### [facility] [address], [address] [place] [address] School Age Teacher: Stew Silva MD Triglyceride [Mass/Vol] 260 mg/dL High <150 [facility] Comment on above: Order Comment: FASTI NG:YES FASTING: YES Result Comment: If a non-fasting specimen was collected, consider repeat triglyceride testing on a fasting specimen if clinically indicated. Tatyana et al. J. of Clin. Lipidol. 2015;9:129-169. Performed By: #### 7 573, 7600, 67142, 77558, 6399, 35335, 67503, 43952, 457, 927 #### [facility] [address], [address] [place] [address] School Age Teacher: Stew Silva MD PTH, INTACT WITHOUT CALCIUMo n 12-16-2024 PARATHYROID HORMONE, INTACT 46 pg/mL Normal 16-77 [facility] Comment on above: Result Comment: Interpretive Guide Intact PTH Calcium ------- Normal Parathyroid Normal Normal Hypoparathyroidism Low or Low Normal Low Hyperparathyroidism Primary Normal or High High Secondary High Normal or Low Tertiary High High Non-Parathyroid Hypercalcemia Low or Low Normal High Performed By: #### 7 573, 7600, 32653, 65019, 6399, 02350, 86145, 94856, 457, 927 #### [facility] [address], [address] [place] [address] School Age Teacher: Stew Silva MD TSH W/REFLEX TO FT4on 2024 TSH W/REFLEX TO FT4 2.23 mIU/L Normal [facility] Comment on above: Result Comment: Refe rence Range > or = 20 Years 0.40-4.50 Ranges First trimester 0.26-2.66 Second trimester 0.55-2.73 Third trimester 0.43-2.91 Performed By: #### 7 573, 7600, 51547, 78168, 6399, 01293, 02689, 23607, 457, 927 #### [facility] [address], [address] [place] [address] School Age Teacher: Stew Silva MD VITAMIN B12on 12-16-2024 Cobalamin (Vitamin B12) [Mass/Vol] 360 pg/mL Normal 200-1100 [facility] Comment on above: Result Comment: Please Note: Although the reference range for vitamin B12 is 200-1100 pg/mL, it has been reported that between 5 and 10% of patients with values between 200 and 400 pg/mL may experience neuropsychiatric and hematologic abnormalities due to occult B12 deficiency; less than 1% of patients with values above 400 pg/mL will have symptoms. Performed By: #### 7 573, 7600, 80032, 20161, 6399, 69028, 37426, 85137, 457, 927 #### [facility] [address], [address] [place] [address] School Age Teacher: Stew Silva MD VITAMIN D,25-OH,TOTAL,IAon 0 12-16-2024 VITAMIN D,25-OH,TOTAL,IA 20 ng/mL Low 30-100 [facility] Comment on above: Result Comment: Tammie min D Status 25-OH Vitamin D: Deficiency: <20 ng/mL Insufficiency: 20 - 29 ng/mL Optimal: > or = 30 ng/mL For 25-OH Vitamin D testing on patients on D2-supplementation and patients for whom quantitation of D2 and D3 fractions is required, the QuestAssureD(TM) 25-OH VIT D, (D2,D3), LC/MS/MS is recommended: order code 01973 (patients >2yrs). See Note 1 Note 1 For additional information, please refer to http://education.Oxonica.Mobile2Me/faq/GSH954 (This link is being provided for informational/ educational purposes only.) Performed By: #### 7 573, 7600, 76798, 84643, 6399, 11896, 89369, 67612, 457, 927 #### [facility] [place] [address] [facility], [address] [place] [address] School Age Teacher: Stew Silva MD CBC W Auto Differential pane l (Bld)on 11-26-2024 Basophils (Bld) [#/Vol] 0.04 10*3/uL [facility] Basophils/100 WBC (Bld) 0.6 % 0.0 - 2.0 % [facility] Eosinophils (Bld) [#/Vol] 0.01 10*3/uL [facility] Eosinophils/100 WBC (Bld) 0.1 % 0.0 - 6.0 % [facility] Erythrocyte distribution width (RBC) [Ratio] 15 % High 11.5 - 14.5 % [facility] Hematocrit (Bld) [Volume fraction] 37 % 36.0 - 46.0 % [facility] Hemoglobin (Bld) [Mass/Vol] 12.6 g/dL 12.0 - 16.0 g/dL [facility] Immature granulocytes (Bld) [#/Vol] 0.05 10*3/uL [facility] Immature granulocytes/100 WBC (Bld) 0.7 % 0.0 - 0.9 % [facility] Comment on above: Immature Granulocyte Count (IG) includes promyelocytes, myelocytes and metamyelocytes but does not include bands. Percent differential counts (%) should be interpreted in the context of the absolute cell counts (cells/UL). Interpretation and review of laboratory results Abnormal [facility] Lymphocytes (Bld) [#/Vol] 1.51 10*3/uL [facility] Lymphocytes/100 WBC (Bld) 22.3 % 13.0 - 44.0 % [facility] MCH (RBC) [Entitic mass] 29 pg 26.0 - 34.0 pg [facility] MCHC (RBC) [Mass/Vol] 34.1 g/dL 32.0 - 36.0 g/dL [facility] MCV (RBC) [Entitic vol] 85 fL 80 - 100 fL [facility] Monocytes (Bld) [#/Vol] 0.38 10*3/uL [facility] Monocytes/100 WBC (Bld) 5.6 % 2.0 - 10.0 % [facility] Neutrophils (Bld) [#/Vol] 4.78 10*3/uL [facility] Comment on above: Percent differential counts (%) should be interpreted in the context of the absolute cell counts (cells/uL). Neutrophils/100 WBC (Bld) 70.7 % 40.0 - 80.0 % [facility] Nucleated RBC/100 WBC (Bld) [Ratio] 0 % [facility] Platelets (Bld) [#/Vol] 221 10*3/uL [facility] RBC (Bld) [#/Vol] 4.35 10*6/uL [facility] WBC (Bld) [#/Vol] 6.8 10*3/uL [facility] Basophils (Bld) [#/Vol] 0.04 x10*3/uL Normal 0.00-0.10 [facility] Comment on above: Performed By: #### 5 7021-8 #### FELIPA LEWIS ([id number]) [facility] ([facility]) [address] [place] [address] Basophils/100 WBC (Bld) 0.6 % Normal 0.0-2.0 [facility] Comment on above: Performed By: #### 5 7021-8 #### FELIPA LEWIS ([id number]) [facility] ([facility]) [address] [place] [address] Eosinophils (Bld) [#/Vol] 0.01 x10*3/uL Normal 0.00-0.70 [facility] Comment on above: Performed By: #### 7021-8 #### FELIPA LEWIS ([id number]) [facility] ([facility]) [address] [place] [address] Eosinophils/100 WBC (Bld) 0.1 % Normal 0.0-6.0 [facility] Comment on above: Performed By: #### 7021-8 #### FELIPA LEWIS ([id number]) [facility] ([facility]) [address] [place] [address] Erythrocyte distribution width (RBC) [Ratio] 15.0 % High 11.5-14.5 [facility] Comment on above: Performed By: #### 7021-8 #### FELIPA LEWIS ([id number]) [facility] ([facility]) [address] [place] [address] Hematocrit (Bld) [Volume fraction] 37.0 % Normal 36.0-46.0 [facility] Comment on above: Performed By: #### 5 7021-8 #### FELIPA LEWIS ([id number]) [facility] ([facility]) [address] [place] [address] Hemoglobin (Bld) [Mass/Vol] 12.6 g/dL Normal 12.0-16.0 [facility] Comment on above: Performed By: #### 5 7021-8 #### FELIPA LEWIS ([id number]) [facility] ([facility]) [address] [place] [address] Immature granulocytes (Bld) [#/Vol] 0.05 x10*3/uL Normal 0.00-0.70 [facility] Comment on above: Performed By: #### 5 7021-8 #### FELIPA LEWIS ([id number]) [facility] ([facility]) [address] [place], [place] [id number] Immature granulocytes/100 WBC (Bld) 0.7 % Normal 0.0-0.9 [facility] Comment on above: Result Comment: Felisa ture Granulocyte Count (IG) includes promyelocytes, myelocytes and metamyelocytes but does not include bands. Percent differential counts (%) should be interpreted in the context of the absolute cell counts (cells/UL). Performed By: #### 5 7021-8 #### FELIPA LEWIS ([id number]) [facility] ([facility]) [address] [place] [address] Lymphocytes (Bld) [#/Vol] 1.51 x10*3/uL Normal 1.20-4.80 [facility] Comment on above: Performed By: #### 5 7021-8 #### FELIPA LEWIS ([id number]) [facility] ([facility]) [address] [place] [address] Lymphocytes/100 WBC (Bld) 22.3 % Normal 13.0-44.0 [facility] Comment on above: Performed By: #### 5 7021-8 #### FELIPA LEWIS ([id number]) [facility] ([facility]) [address] [place] [address] MCH (RBC) [Entitic mass] 29.0 pg Normal 26.0-34.0 [facility] Comment on above: Performed By: #### 5 7021-8 #### FELIPA LEWIS ([id number]) [facility] ([facility]) [address] [place] [address] MCHC (RBC) [Mass/Vol] 34.1 g/dL Normal 32.0-36.0 [facility] Comment on above: Performed By: #### 5 7021-8 #### FELIPA LEWIS ([id number]) [facility] ([facility]) [address] [place] [address] MCV (RBC) [Entitic vol] 85 fL Normal 80-100 [facility] Comment on above: Performed By: #### 5 7021-8 #### FELIPA LEWIS ([id number]) [facility] ([facility]) [address] [place] [address] Monocytes (Bld) [#/Vol] 0.38 x10*3/uL Normal 0.10-1.00 [facility] Comment on above: Performed By: #### 5 7021-8 #### FELIPA LEWIS ([id number]) [facility] ([facility]) [address] [place] [address] 110[address] Monocytes/100 WBC (Bld) 5.6 % Normal 2.0-10.0 [facility] Comment on above: Performed By: #### 5 7021-8 #### FELIPA LEWIS ([id number]) [facility] ([facility]) [address] [place] [address] Neutrophils (Bld) [#/Vol] 4.78 x10*3/uL Normal 1.20-7.70 [facility] Comment on above: Result Comment: Perc ent differential counts (%) should be interpreted in the context of the absolute cell counts (cells/uL). Performed By: #### 5 7021-8 #### FELIPA LEWIS ([id number]) [facility] ([facility]) [address] [place] [address] 53577 Neutrophils/100 WBC (Bld) 70.7 % Normal 40.0-80.0 [facility] Comment on above: Performed By: #### 5 7021-8 #### FELIPA LEWIS ([id number]) [facility] ([facility]) [address] [place] [address] 48377 Nucleated RBC/100 WBC (Bld) [Ratio] 0.0 /100 WBCs Normal 0.0-0.0 [facility] Comment on above: Performed By: #### 5 7021-8 #### FELIPA LEWIS ([id number]) [facility] ([facility]) [address] [place] [address]373 Platelets (Bld) [#/Vol] 221 x10*3/uL Normal 150-450 [facility] Comment on above: Performed By: #### 5 7021-8 #### FELIPA LEWIS ([id number]) [facility] ([facility]) [address] [place] [address] RBC (Bld) [#/Vol] 4.35 x10*6/uL Normal 4.00-5.20 [facility] Comment on above: Performed By: #### 5 7021-8 #### FELIPA LOPEZEMILY ([id number]) [facility] ([facility]) [address] [place] [address] WBC (Bld) [#/Vol] 6.8 x10*3/uL Normal 4.4-11.3 [facility] Comment on above: Performed By: #### 5 7021-8 #### FELIPA MATIASPATRICIA ([id number]) [facility] ([facility]) [address] [place] [address] CT HEAD WO IV CONTRASTon CT HEAD WO IV CONTRAST Interpreted By: Tee Hendricks, STUDY: CT HEAD WO IV CONTRAST; 11/26/2024 3:43 pm INDICATION: Signs/Symptoms:seizure. COMPARISON: 09/25/2022 ACCESSION NUMBER(S): [id number] ORDERING CLINICIAN: WOLF MARIN TECHNIQUE: Contiguous axial images of the head obtained without contrast. FINDINGS: INTRACRANIAL: No acute intracranial hemorrhage or mass effect. No midline shift. Patent basal cisterns. No abnormal extra axial fluid collections. The potter-white differentiation is preserved. The calvaria appears intact. EXTRACRANIAL: Visualized paranasal sinuses and mastoids are clear. IMPRESSION: No acute intracranial pathology. Signed by: Tee Hendricks 11/26/2024 4:00 PM Dictation workstation: [id number] [facility] CT Head WO contraston 2024 No acute intracrania l pathology. Signed by: Tee Hendricks 11/26/2024 4:00 PM Dictation workstation: [id number] MMODAL Interpreted By: Tee Gifford, STUDY: CT HEAD WO IV CONTRAST; 11/26/2024 3:43 pm INDICATION: Signs/Symptoms:seizure. COMPARISON: 09/25/2022 ACCESSION NUMBER(S): [id number] ORDERING CLINICIAN: WOLF MARIN TECHNIQUE: Contiguous axial images of the head obtained without contrast. FINDINGS: INTRACRANIAL: No acute intracranial hemorrhage or mass effect. No midline shift. Patent basal cisterns. No abnormal extra axial fluid collections. The potter-white differentiation is preserved. The calvaria appears intact. EXTRACRANIAL: Visualized paranasal sinuses and mastoids are clear. MMODAL Tee Hendricks MD - 11/26/2024 Interpreted By: Tee Hendricks, STUDY: CT HEAD WO IV CONTRAST; 11/26/2024 3:43 pm INDICATION: Signs/Symptoms:seizure. COMPARISON: 09/25/2022 ACCESSION NUMBER(S): [id number] ORDERING CLINICIAN: WOLF MARIN TECHNIQUE: Contiguous axial images of the head obtained without contrast. FINDINGS: INTRACRANIAL: No acute intracranial hemorrhage or mass effect. No midline shift. Patent basal cisterns. No abnormal extra axial fluid collections. The potter-white differentiation is preserved. The calvaria appears intact. EXTRACRANIAL: Visualized paranasal sinuses and mastoids are clear. IMPRESSION: No acute intracranial pathology. Signed by: Tee Hendricks 11/26/2024 4:00 PM Dictation workstation: [id number] [facility] Work Phone: Radiology Study observation (narrative) [facility] Work Phone: CT Head WO contrastOrdered B y: Tee Hendricks on 11-26-2024 [facility] Work Phone: Comprehensive metabolic 2000 panelon 11-26-2024 Albumin BCP dye [Mass/Vol] 4.1 g/dL 3.4 - 5.0 g/dL [facility] ALP [Catalytic activity/Vol] 75 U/L 33 - 110 U/L [facility] ALT With P-5'-P [Catalytic activity/Vol] 13 U/L 7 - 45 U/L [facility] Comment on above: Patients treated wit h Sulfasalazine may generate falsely decreased results for ALT. Anion gap [Moles/Vol] 12 mmol/L 10 - 2 0 mmol/L [facility] AST With P-5'-P [Catalytic activity/Vol] 15 U/L 9 - 39 U/L [facility] Bilirubin [Mass/Vol] 0.9 mg/dL 0.0 - 1 .2 mg/dL [facility] Calcium [Mass/Vol] 9 mg/dL 8.6 - 10. 3 mg/dL [facility] Chloride [Moles/Vol] 101 mmol/L 98 - 10 7 mmol/L [facility] CO2 [Moles/Vol] 25 mmol/L 21 - 32 mmol/L [facility] Creatinine [Mass/Vol] 0.57 mg/dL 0.50 - 1.05 mg/dL [facility] eGFR - PINF [facility] Comment on above: Calculations of kayleigh mated GFR are performed using the 2020 CKD-EPI Study Refit equation without the race variable for the IDMS-Traceable creatinine methods. https://jasn.asnjournals.org/content/early//ASN.666433 5467 Glucose [Mass/Vol] 227 mg/dL High 74 - 99 mg/dL [facility] Interpretation and review of laboratory results Abnormal [facility] Potassium [Moles/Vol] 3.6 mmol/L 3.5 - 5.3 mmol/L [facility] Protein [Mass/Vol] 6.5 g/dL 6.4 - 8.2 g/dL [facility] Sodium [Moles/Vol] 134 mmol/L Low 136 - 145 mmol/L [facility] Urea nitrogen [Mass/Vol] 8 mg/dL 6 - 23 mg/dL [facility] Albumin BCP dye [Mass/Vol] 4.1 g/dL Normal 3.4-5.0 [facility] Comment on above: Performed By: #### 5 7021-8 #### FELIPA LEWIS ([id number]) [facility] ([facility]) [address] [place] [address] ALP [Catalytic activity/Vol] 75 U/L Normal 33-110 [facility] Comment on above: Performed By: #### 5 7021-8 #### FELIPA LEWIS ([id number]) [facility] ([facility]) [address] [place] [address] ALT With P-5'-P [Catalytic activity/Vol] 13 U/L Normal 7-45 [facility] Comment on above: Result Comment: Renetta ents treated with Sulfasalazine may generate falsely decreased results for ALT. Performed By: #### 5 7021-8 #### FELIPA LEWIS ([id number]) [facility] ([facility]) [address] [place] [address] Anion gap [Moles/Vol] 12 mmol/L Normal 10-20 [facility] Comment on above: Performed By: #### 5 7021-8 #### FELIPA LEWIS ([id number]) [facility] ([facility]) [address] [place] [address] AST With P-5'-P [Catalytic activity/Vol] 15 U/L Normal 9-39 [facility] Comment on above: Performed By: #### 5 7021-8 #### FELIPA LEWIS ([id number]) [facility] ([facility]) [address] [place] [address] Bilirubin [Mass/Vol] 0.9 mg/dL Normal 0.0-1.2 [facility] Comment on above: Performed By: #### 5 7021-8 #### FELIPA LEWIS ([id number]) [facility] ([facility]) [address] [place] [address] Calcium [Mass/Vol] 9.0 mg/dL Normal 8.6-10.3 [facility] Comment on above: Performed By: #### 5 7021-8 #### FELIPA LEWIS ([id number]) [facility] ([facility]) [address] [place] [address] Chloride [Moles/Vol] 101 mmol/L Normal 98-107 [facility] Comment on above: Performed By: #### 5 7021-8 #### FELIPA LEWIS ([id number]) [facility] [facility] ([facility]) [address] [place] [address] CO2 [Moles/Vol] 25 mmol/L Normal 21-32 [facility] Comment on above: Performed By: #### 5 7021-8 #### FELIPA LEWIS ([id number]) [facility] ([facility]) [facility] [place] [address] Creatinine [Mass/Vol] 0.57 mg/dL Normal 0.50-1.05 [facility] Comment on above: Performed By: #### 5 7021-8 #### FELIPA LEWIS ([id number]) [facility] ([facility]) [address] [place] [address] 16298 GFR/1.73 sq M.predicted MDRD (S/P/Bld) [Vol rate/Area] mL/min/{1.73_m2} Normal >60 [facility] Comment on above: Result Comment: Calc ulations of estimated GFR are performed using the 2020 CKD-EPI Study Refit equation without the race variable for the IDMS-Traceable creatinine methods. https://jasn.asnjournals.org/content/early//ASN.170500 7098 Performed By: #### 5 7021-8 #### FELIPA LEWIS ([id number]) [facility] ([facility]) [address] [place] [address] 49497 Glucose [Mass/Vol] 227 mg/dL High 74-99 [facility] Comment on above: Performed By: #### 5 7021-8 #### FELIPA LEWIS ([id number]) [facility] ([facility]) [address] [place] [address] 11249 Potassium [Moles/Vol] 3.6 mmol/L Normal 3.5-5.3 [facility] Comment on above: Performed By: #### 5 7021-8 #### FELIPA LEWIS ([id number]) [facility] ([facility]) [address] [place] [address] 39042 Protein [Mass/Vol] 6.5 g/dL Normal 6.4-8.2 [facility] Comment on above: Performed By: #### 5 7021-8 #### FELIPA LEWIS ([id number]) [facility] ([facility]) [address] [place] [address] 06607 Sodium [Moles/Vol] 134 mmol/L Low 136-145 [facility] Comment on above: Performed By: #### 5 7021-8 #### FELIPA LEWIS ([id number]) [facility] ([facility]) [address] [place] [address] 33973 Urea nitrogen [Mass/Vol] 8 mg/dL Normal - [facility] Comment on above: Performed By: #### 5 7021-8 #### FELIPA LEWIS ([id number]) [facility] ([facility]) [address] [place], [place] [id number] ECG 12-LEADon 11-26-2024 ECG 12-LEAD Ventricular Rate 93 Atrial Rate 93 P-R Interval 160 QRS Duration 74 Q-T Interval 362 QTC Calculation(Bazett) 450 P [place] 33 R [place] -13 T [place] 22 QRS Count 16 Q Onset 225 P Onset 145 P Offset 193 T Offset 406 QTC Fredericia 419 Diagnosis Normal sinus rhythm Minimal voltage criteria for LVH, may be normal variant ( R in aVL ) Anteroseptal infarct (cited on or before 23-DEC-2023) Abnormal ECG When compared with ECG of 09-JUL-2024 12:02, No significant change was found See ED provider note for full interpretation and clinical correlation Confirmed by Wolf Marin ([id number]) on 11/30/2024 9:01:21 AM Normal [facility] Lactateon 11-26-2024 Lactate [Moles/Vol] 2.1 mmol/L High 0.4 - 2. 0 mmol/L [facility] Lactate [Moles/Vol] 2.1 mmol/L High 0.4-2.0 [facility] Comment on above: Order Comment: Venip uncture immediately after or during the administration of Metamizole may lead to falsely low results. Testing should be performed immediately prior to Metamizole dosing. Performed By: #### 1 9123-9 #### FELIPA LEWIS ([id number]) [facility] ([facility]) [address] [place] [address] Lactate [Moles/Vol] 2.3 mmol/L High 0.4 - 2. 0 mmol/L [facility] Lactate [Moles/Vol] 2.3 mmol/L High 0.4-2.0 [facility] Comment on above: Order Comment: Venip uncture immediately after or during the administration of Metamizole may lead to falsely low results. Testing should be performed immediately prior to Metamizole dosing. Performed By: #### 5 7021-8 #### FELIPA LEWIS ([id number]) [facility] ([facility]) [address] [place] [address] 25047 Lactate [Moles/Vol]on 2024 Interpretation and review of laboratory results Abnormal [facility] Venipuncture immediately after or during the administration of Metamizole may lead to falsely low results. Testing should be performed immediately prior to Metamizole dosing. [facility] Interpretation and review of laboratory results Abnormal [facility] Venipuncture immediately after or during the administration of Metamizole may lead to falsely low results. Testing should be performed immediately prior to Metamizole dosing. [facility] Magnesiumon 11-26-2024 Magnesium [Mass/Vol] 2.03 mg/dL 1.60 - 2.40 mg/dL [facility] Magnesium [Mass/Vol] 2.03 mg/dL Normal 1.60-2.40 [facility] Comment on above: Performed By: #### 5 7021-8 #### FELIPA LEWIS ([id number]) [facility] ([facility]) [address] [place] [address] 37328 Magnesium [Mass/Vol]on 11-26 Interpretation and review of laboratory results Normal [facility] No Panel Informationon 11-26 [facility] Tropinin I.cardiac panel Hig h sensitivity methodon 11-26-2024 Interpretation and review of laboratory results Normal [facility] Less than 99th percentile of normal range cutoff- Female and children under 18 years old <14 ng/L; Male <21 ng/L: Negative Repeat testing should be performed if clinically indicated. Female and children under 18 years old 14-50 ng/L; Male 21-50 ng/L: Consistent with possible cardiac damage and possible increased clinical risk. Serial measurements may help to assess extent of myocardial damage. >50 ng/L: Consistent with cardiac damage, increased clinical risk and myocardial infarction. Serial measurements may help assess extent of myocardial damage. NOTE: Children less than 1 year old may have higher baseline troponin levels and results should be interpreted in conjunction with the overall clinical context. NOTE: Troponin I testing is performed using a different testing methodology at [facility] than at other [facility]. Direct result comparisons should only be made within the same method. [facility] Troponin I, High Sensitivity on 11-26-2024 Tropinin I.cardiac panel High sensitivity method 5 ng/L 0 - 13 ng/L [facility] Troponin I.cardiac panelon 0 11-26-2024 Tropinin I.cardiac panel High sensitivity method 5 ng/L Normal 0-13 [facility] Comment on above: Order Comment: Less than 99th percentile of normal range cutoff-Female and children under 18 years old <14 ng/L; Male <21 ng/L: NegativeRepeat testing should be performed if clinically indicated.Female and children under 18 years old 14-50 ng/L; Male 21-50 ng/L:Consistent with possible cardiac damage and possible increased clinicalrisk. Serial measurements may help to assess extent of myocardial damage.>50 ng/L: Consistent with cardiac damage, increased clinical risk andmyocardial infarction. Serial measurements may help assess extent ofmyocardial damage.NOTE: Children less than 1 year old may have higher baseline troponinlevels and results should be interpreted in conjunction with the overallclinical context.NOTE: Troponin I testing is performed using a differenttesting methodology at [facility] than at [facility]. Direct result comparisons should onlybe made within the same method. Performed By: #### 1 9123-9 #### LEO JOSHUA ([id number]) [facility] ([facility]) [address] [place] [address] XR CHEST 1 VIEWon 11-26-2024 XR CHEST 1 VIEW STUDY: Chest Radiograph; 11/26/2024 3:28 PM INDICATION: Dizziness. COMPARISON: None Available. ACCESSION NUMBER(S): [id number] ORDERING CLINICIAN: WOLF MARIN TECHNIQUE: Frontal chest was obtained at 15:15 hours. FINDINGS: CARDIOMEDIASTINAL SILHOUETTE: Cardiomediastinal silhouette is normal in size and configuration. LUNGS: Lungs are clear. There is no evidence of pleural effusion or pneumothorax. ABDOMEN: No remarkable upper abdominal findings. BONES: No acute osseous changes. IMPRESSION: No acute cardiopulmonary disease. Signed by Jose Luis Hubbard MD Normal [facility] XR Chest Single viewon 11-26 No acute cardiopulmonary disease. Signed by Jose Luis Hubbard MD TELERADIOLOGY STUDY: Chest Radiograph; 11/26/2024 3:28 PM INDICATION: Dizziness. COMPARISON: None Available. ACCESSION NUMBER(S): [id number] ORDERING CLINICIAN: WOLF MARIN TECHNIQUE: Frontal chest was obtained at 15:15 hours. FINDINGS: CARDIOMEDIASTINAL SILHOUETTE: Cardiomediastinal silhouette is normal in size and configuration. LUNGS: Lungs are clear. There is no evidence of pleural effusion or pneumothorax. ABDOMEN: No remarkable upper abdominal findings. BONES: No acute osseous changes. TELERADIOLOGY Jose Luis Hubbard MD - 11/26/2024 STUDY: Chest Radiograph; 11/26/2024 3:28 PM INDICATION: Dizziness. COMPARISON: None Available. ACCESSION NUMBER(S): [id number] ORDERING CLINICIAN: WOLF MARIN TECHNIQUE: Frontal chest was obtained at 15:15 hours. FINDINGS: CARDIOMEDIASTINAL SILHOUETTE: Cardiomediastinal silhouette is normal in size and configuration. LUNGS: Lungs are clear. There is no evidence of pleural effusion or pneumothorax. ABDOMEN: No remarkable upper abdominal findings. BONES: No acute osseous changes. IMPRESSION: No acute cardiopulmonary disease. Signed by Jose Luis Hubbard MD [facility] Work Phone: Radiology Study observation (narrative) [facility] Work Phone: XR Chest Single viewOrdered By: Jose Luis Hubbard on 11-26-2024 [facility] Work Phone: ACUTE TOXICOLOGY PANEL, ADELIA Knutson 10-29-2024 Acetaminophen [Mass/Vol] ug/mL Normal 10.0-30.0 [facility] Comment on above: Performed By: #### 5 7021-8 #### LEO JOSHUA ([id number]) [facility] ([facility]) [address] [place] [address] Ethanol [Mass/Vol] mg/dL Normal <=10 [facility] Comment on above: Performed By: #### 5 7021-8 #### FELIPA LEWIS ([id number]) [facility] ([facility]) [address] [place] [address] Salicylates [Mass/Vol] mg/dL Normal 4-20 [facility] Comment on above: Performed By: #### 5 7021-8 #### FELIPA LEWIS ([id number]) [facility] ([facility]) [address] [place] [address] Acute Toxicology Panel, Adelia knutson 10-29-2024 Acetaminophen [Mass/Vol] ug/mL 10.0 - 30.0 ug/mL [facility] Ethanol [Mass/Vol] mg/dL NINF - 10 mg/dL [facility] Interpretation and review of laboratory results Normal [facility] Salicylates [Mass/Vol] mg/dL 4 - 20 mg/dL [facility] CBC W Auto Differential pane l (Bld)on 10-29-2024 Basophils (Bld) [#/Vol] 0.04 10*3/uL [facility] Basophils/100 WBC (Bld) 0.5 % 0.0 - 2.0 % [facility] Eosinophils (Bld) [#/Vol] 0.01 10*3/uL [facility] Eosinophils/100 WBC (Bld) 0.1 % 0.0 - 6.0 % [facility] Erythrocyte distribution width (RBC) [Ratio] 14.7 % High 11.5 - 14.5 % [facility] Hematocrit (Bld) [Volume fraction] 40.8 % 36.0 - 46.0 % [facility] Hemoglobin (Bld) [Mass/Vol] 14.1 g/dL 12.0 - 16.0 g/dL [facility] Immature granulocytes (Bld) [#/Vol] 0.07 10*3/uL [facility] Immature granulocytes/100 WBC (Bld) 1 % High 0.0 - 0.9 % [facility] Comment on above: Immature Granulocyte Count (IG) includes promyelocytes, myelocytes and metamyelocytes but does not include bands. Percent differential counts (%) should be interpreted in the context of the absolute cell counts (cells/UL). Interpretation and review of laboratory results Abnormal [facility] Lymphocytes (Bld) [#/Vol] 1.44 10*3/uL [facility] Lymphocytes/100 WBC (Bld) 19.6 % 13.0 - 44.0 % [facility] MCH (RBC) [Entitic mass] 29.4 pg 26.0 - 34.0 pg [facility] MCHC (RBC) [Mass/Vol] 34.6 g/dL 32.0 - 36.0 g/dL [facility] MCV (RBC) [Entitic vol] 85 fL 80 - 100 fL [facility] Monocytes (Bld) [#/Vol] 0.41 10*3/uL [facility] Monocytes/100 WBC (Bld) 5.6 % 2.0 - 10.0 % [facility] Neutrophils (Bld) [#/Vol] 5.36 10*3/uL [facility] Comment on above: Percent differential counts (%) should be interpreted in the context of the absolute cell counts (cells/uL). Neutrophils/100 WBC (Bld) 73.2 % 40.0 - 80.0 % [facility] Nucleated RBC/100 WBC (Bld) [Ratio] 0 % [facility] Platelets (Bld) [#/Vol] 248 10*3/uL [facility] RBC (Bld) [#/Vol] 4.8 10*6/uL [facility] WBC (Bld) [#/Vol] 7.3 10*3/uL [facility] Basophils (Bld) [#/Vol] 0.04 x10*3/uL Normal 0.00-0.10 [facility] Comment on above: Performed By: #### 5 7021-8 #### LEO JOSHUA ([id number]) [facility] ([facility]) [address] [place] [address] Basophils/100 WBC (Bld) 0.5 % Normal 0.0-2.0 [facility] Comment on above: Performed By: #### 5 7021-8 #### FELIPA LEWIS ([id number]) [facility] ([facility]) [address] [place] [address] 50341 Eosinophils (Bld) [#/Vol] 0.01 x10*3/uL Normal 0.00-0.70 [facility] Comment on above: Performed By: #### 7021-8 #### FELIPA LEWIS ([id number]) [facility] ([facility]) [address] [place] [address] 03489 Eosinophils/100 WBC (Bld) 0.1 % Normal 0.0-6.0 [facility] Comment on above: Performed By: #### 7021-8 #### FELIPA LEWIS ([id number]) [facility] ([facility]) [address] [place] [address] 04910 Erythrocyte distribution width (RBC) [Ratio] 14.7 % High 11.5-14.5 [facility] Comment on above: Performed By: #### 7021-8 #### FELIPA LEWIS ([id number]) [facility] ([facility]) [address] [place] [address] 80682 Hematocrit (Bld) [Volume fraction] 40.8 % Normal 36.0-46.0 [facility] Comment on above: Performed By: #### 5 7021-8 #### FELIPA LEWIS ([id number]) [facility] ([facility]) [address] [place] [address] 69610 Hemoglobin (Bld) [Mass/Vol] 14.1 g/dL Normal 12.0-16.0 [facility] Comment on above: Performed By: #### 5 7021-8 #### FELIPA LEWIS ([id number]) [facility] ([facility]) [address] [place] [address] 25454 Immature granulocytes (Bld) [#/Vol] 0.07 x10*3/uL Normal 0.00-0.70 [facility] Comment on above: Performed By: #### 7021-8 #### FELIPA LEWIS ([id number]) [facility] ([facility]) [address] [place] [address] 74487 Immature granulocytes/100 WBC (Bld) 1.0 % High 0.0-0.9 [facility] Comment on above: Result Comment: Felisa ture Granulocyte Count (IG) includes promyelocytes, myelocytes and metamyelocytes but does not include bands. Percent differential counts (%) should be interpreted in the context of the absolute cell counts (cells/UL). Performed By: #### 5 7021-8 #### FELIPA LEWIS ([id number]) [facility] ([facility]) [address] [place] [address] 82221 Lymphocytes (Bld) [#/Vol] 1.44 x10*3/uL Normal 1.20-4.80 [facility] Comment on above: Performed By: #### 5 7021-8 #### FELIPA LEWIS ([id number]) [facility] ([facility]) [address] [place] [address] 57331 Lymphocytes/100 WBC (Bld) 19.6 % Normal 13.0-44.0 [facility] Comment on above: Performed By: #### 5 7021-8 #### FELIPA LEWIS ([id number]) [facility] ([facility]) [address] [place] [address] 22173 MCH (RBC) [Entitic mass] 29.4 pg Normal 26.0-34.0 [facility] Comment on above: Performed By: #### 5 7021-8 #### FELIPA LEWIS ([id number]) [facility] ([facility]) [address] [place] [address] 99951 MCHC (RBC) [Mass/Vol] 34.6 g/dL Normal 32.0-36.0 [facility] Comment on above: Performed By: #### 5 7021-8 #### FELIPA LEWIS ([id number]) [facility] ([facility]) [address] [place] [address] 52545 MCV (RBC) [Entitic vol] 85 fL Normal 80-100 [facility] Comment on above: Performed By: #### 5 7021-8 #### FELIPA LEWIS ([id number]) [facility] ([facility]) [address] [place] [address] 31201 Monocytes (Bld) [#/Vol] 0.41 x10*3/uL Normal 0.10-1.00 [facility] Comment on above: Performed By: #### 5 7021-8 #### FELIPA LEWIS ([id number]) [facility] ([facility]) [address] [place] [address] 33600 Monocytes/100 WBC (Bld) 5.6 % Normal 2.0-10.0 [facility] Comment on above: Performed By: #### 5 7021-8 #### FELIPA LEWIS ([id number]) [facility] ([facility]) [address] [place] [address] 38505 Neutrophils (Bld) [#/Vol] 5.36 x10*3/uL Normal 1.20-7.70 [facility] Comment on above: Result Comment: Perc ent differential counts (%) should be interpreted in the context of the absolute cell counts (cells/uL). Performed By: #### 5 7021-8 #### FELIPA LEWIS ([id number]) [facility] ([facility]) [address] [place] [address] 97111 Neutrophils/100 WBC (Bld) 73.2 % Normal 40.0-80.0 [facility] Comment on above: Performed By: #### 5 7021-8 #### FELIPA LEWIS ([id number]) [facility] ([facility]) [address] [place] [address] 08907 Nucleated RBC/100 WBC (Bld) [Ratio] 0.0 /100 WBCs Normal 0.0-0.0 [facility] Comment on above: Performed By: #### 5 7021-8 #### FELIPA LEWIS ([id number]) [facility] ([facility]) [address] [place] [address] 85161 Platelets (Bld) [#/Vol] 248 x10*3/uL Normal 150-450 [facility] Comment on above: Performed By: #### 5 7021-8 #### FELIPA LEWIS ([id number]) [facility] ([facility]) [facility] [place] [address] RBC (Bld) [#/Vol] 4.80 x10*6/uL Normal 4.00-5.20 [facility] Comment on above: Performed By: #### 5 7021-8 #### FELIPA LEWIS ([id number]) [facility] ([facility]) [facility] [place] [address] WBC (Bld) [#/Vol] 7.3 x10*3/uL Normal 4.4-11.3 [facility] Comment on above: Performed By: #### 5 7021-8 #### FELIPA LEWIS ([id number]) [facility] ([facility]) [address] [place] [address] Comprehensive metabolic 2000 panelon 10-29-2024 Albumin BCP dye [Mass/Vol] 4.3 g/dL 3.4 - 5.0 g/dL [facility] ALP [Catalytic activity/Vol] 77 U/L 33 - 110 U/L [facility] ALT With P-5'-P [Catalytic activity/Vol] 11 U/L 7 - 45 U/L [facility] Comment on above: Patients treated wit h Sulfasalazine may generate falsely decreased results for ALT. Anion gap [Moles/Vol] 13 mmol/L 10 - 2 0 mmol/L [facility] AST With P-5'-P [Catalytic activity/Vol] 16 U/L 9 - 39 U/L [facility] Bilirubin [Mass/Vol] 1.1 mg/dL 0.0 - 1 .2 mg/dL [facility] Calcium [Mass/Vol] 9.4 mg/dL 8.6 - 10. 3 mg/dL [facility] Chloride [Moles/Vol] 100 mmol/L 98 - 10 7 mmol/L [facility] CO2 [Moles/Vol] 24 mmol/L 21 - 32 mmol/L [facility] Creatinine [Mass/Vol] 0.62 mg/dL 0.50 - 1.05 mg/dL [facility] eGFR - PINF [facility] Comment on above: Calculations of kayleigh mated GFR are performed using the 2020 CKD-EPI Study Refit equation without the race variable for the IDMS-Traceable creatinine methods. https://jasn.asnjournals.org/content/early/ASN.122617 4392 Glucose [Mass/Vol] 183 mg/dL High 74 - 99 mg/dL [facility] Interpretation and review of laboratory results Abnormal [facility] Potassium [Moles/Vol] 4.1 mmol/L 3.5 - 5.3 mmol/L [facility] Protein [Mass/Vol] 7.3 g/dL 6.4 - 8.2 g/dL [facility] Sodium [Moles/Vol] 133 mmol/L Low 136 - 145 mmol/L [facility] Urea nitrogen [Mass/Vol] 10 mg/dL 6 - 23 mg/dL [facility] Albumin BCP dye [Mass/Vol] 4.3 g/dL Normal 3.4-5.0 [facility] Comment on above: Performed By: #### 2 4323-8 #### FELIPA LEWIS ([id number]) [facility] ([facility]) [address] [place] [address] 38344 ALP [Catalytic activity/Vol] 77 U/L Normal 33-110 [facility] Comment on above: Performed By: #### 2 4323-8 #### FELIPA LEWIS ([id number]) [facility] ([facility]) [facility] [place] [address] ALT With P-5'-P [Catalytic activity/Vol] 11 U/L Normal 7-45 [facility] Comment on above: Result Comment: Renetta ents treated with Sulfasalazine may generate falsely decreased results for ALT. Performed By: #### 2 4323-8 #### FELIPA LEWIS ([id number]) [facility] ([facility]) [facility] [place] [address] Anion gap [Moles/Vol] 13 mmol/L Normal 10-20 [facility] Comment on above: Performed By: #### 2 4323-8 #### FELIPA LEWIS ([id number]) [facility] ([facility]) [address] [place] [address] AST With P-5'-P [Catalytic activity/Vol] 16 U/L Normal 9-39 [facility] Comment on above: Performed By: #### 2 4323-8 #### FELIPA LEWIS ([id number]) [facility] ([facility]) [address] [place] [address] Bilirubin [Mass/Vol] 1.1 mg/dL Normal 0.0-1.2 [facility] Comment on above: Performed By: #### 2 4322-8 #### FELIPA LEWIS ([id number]) [facility] ([facility]) [address] [place] [address] 20145 Calcium [Mass/Vol] 9.4 mg/dL Normal 8.6-10.3 [facility] Comment on above: Performed By: #### 2 4322-8 #### FELIPA LEWIS ([id number]) [facility] ([facility]) [address] [place] [address] Chloride [Moles/Vol] 100 mmol/L Normal 98-107 [facility] Comment on above: Performed By: #### 2 432-8 #### FELIPA LEWIS ([id number]) [facility] ([facility]) [address] [place] [address] CO2 [Moles/Vol] 24 mmol/L Normal 21-32 [facility] Comment on above: Performed By: #### 2 4323-8 #### FELIPA LEWIS ([id number]) [facility] ([facility]) [address] [place] [address] Creatinine [Mass/Vol] 0.62 mg/dL Normal 0.50-1.05 [facility] Comment on above: Performed By: #### 2 4323-8 #### FELIPA LEWIS ([id number]) [facility] ([facility]) [address] [place] [address] GFR/1.73 sq M.predicted MDRD (S/P/Bld) [Vol rate/Area] mL/min/{1.73_m2} Normal >60 [facility] Comment on above: Result Comment: Calc ulations of estimated GFR are performed using the 2020 CKD-EPI Study Refit equation without the race variable for the IDMS-Traceable creatinine methods. https://jasn.asnjournals.org/content/early//ASN.098657 3926 Performed By: #### 2 4323-8 #### FELIPA LEWIS ([id number]) [facility] ([facility]) [address] [place] [address]58 Glucose [Mass/Vol] 183 mg/dL High 74-99 [facility] Comment on above: Performed By: #### 2 4323-8 #### FELIPA LEWIS ([id number]) [facility] ([facility]) [address] [place] [address] 62048 Potassium [Moles/Vol] 4.1 mmol/L Normal 3.5-5.3 [facility] Comment on above: Performed By: #### 2 4323-8 #### FELIPA LEWIS ([id number]) [facility] ([facility]) [address] [place] [address] 91597 Protein [Mass/Vol] 7.3 g/dL Normal 6.4-8.2 [facility] Comment on above: Performed By: #### 2 4323-8 #### FELIPA LEWIS ([id number]) [facility] ([facility]) [address] [place] [address] 63378 Sodium [Moles/Vol] 133 mmol/L Low 136-145 [facility] Comment on above: Performed By: #### 2 4323-8 #### FELIPA LEWIS ([id number]) [facility] ([facility]) [address] [place] [address] 97939 Urea nitrogen [Mass/Vol] 10 mg/dL Normal 6-23 [facility] Comment on above: Performed By: #### 2 4323-8 #### FELIPA LEWIS ([id number]) [facility] ([facility]) [address] [place] [address] DRUG SCREEN,URINEon 10-29-19 Amphetamines Screen Ql (U) Negative Normal Presumptive Negative [facility] Comment on above: Order Comment: Drug screen results are presumptive and should not be used to assesscompliance with prescribed medication. Contact the performing [facility] laboratoryto add-on definitive confirmatory testing if clinically indicated.Toxicology screening results are reported qualitatively. The concentration must???be greater than or equal to the cutoff to be reported as positive. The concentrationat which the screening test can detect an individual drug or metabolite varies.The absence of expected drug(s) and/or drug metabolite(s) may indicate non-compliance,inappropriate timing of specimen collection relative to drug administration, poor drugabsorption, diluted/adulterated urine, or limitations of testing. For medical purposesonly; not valid for forensic use.Interpretive questions should be directed to the laboratory medical directors. Result Comment: CUTO FF LEVEL: 500 NG/ML Cross-reactivity has been reported with high concentrations of the following drugs: buproprion, chloroquine, chlorpromazine, ephedrine, mephentermine, fenfluramine, phentermine, phenylpropanolamine, pseudoephedrine, and propranolol. Performed By: #### 5 7021-8 #### LEO JOSHUA ([id number]) [facility] ([facility]) [address] [place] [address] Barbiturates Screen Ql (U) Negative Normal Presumptive Negative [facility] Comment on above: Order Comment: Drug screen results are presumptive and should not be used to assesscompliance with prescribed medication. Contact the performing [facility] laboratoryto add-on definitive confirmatory testing if clinically indicated.Toxicology screening results are reported qualitatively. The concentration must???be greater than or equal to the cutoff to be reported as positive. The concentrationat which the screening test can detect an individual drug or metabolite varies.The absence of expected drug(s) and/or drug metabolite(s) may indicate non-compliance,inappropriate timing of specimen collection relative to drug administration, poor drugabsorption, diluted/adulterated urine, or limitations of testing. For medical purposesonly; not valid for forensic use.Interpretive questions should be directed to the laboratory medical directors. Result Comment: CUTO FF LEVEL: 200 NG/ML Performed By: #### 5 7021-8 #### FELIPA LEWIS ([id number]) [facility] ([facility]) [address] [place] [address] Benzodiazepines Ql (U) Negative Normal Presumptive Negative [facility] Comment on above: Order Comment: Drug screen results are presumptive and should not be used to assesscompliance with prescribed medication. Contact the performing [facility] laboratoryto add-on definitive confirmatory testing if clinically indicated.Toxicology screening results are reported qualitatively. The concentration must???be greater than or equal to the cutoff to be reported as positive. The concentrationat which the screening test can detect an individual drug or metabolite varies.The absence of expected drug(s) and/or drug metabolite(s) may indicate non-compliance,inappropriate timing of specimen collection relative to drug administration, poor drugabsorption, diluted/adulterated urine, or limitations of testing. For medical purposesonly; not valid for forensic use.Interpretive questions should be directed to the laboratory medical directors. Result Comment: CUTO FF LEVEL: 200 NG/ML Performed By: #### 5 7021-8 #### FELIPA LEWIS ([id number]) [facility] ([facility]) [address] [place] [address] Benzoylecgonine Screen Ql (U) Negative Normal Presumptive Negative [facility] Comment on above: Order Comment: Drug screen results are presumptive and should not be used to assesscompliance with prescribed medication. Contact the performing [facility] laboratoryto add-on definitive confirmatory testing if clinically indicated.Toxicology screening results are reported qualitatively. The concentration must???be greater than or equal to the cutoff to be reported as positive. The concentrationat which the screening test can detect an individual drug or metabolite varies.The absence of expected drug(s) and/or drug metabolite(s) may indicate non-compliance,inappropriate timing of specimen collection relative to drug administration, poor drugabsorption, diluted/adulterated urine, or limitations of testing. For medical purposesonly; not valid for forensic use.Interpretive questions should be directed to the laboratory medical directors. Result Comment: CUTO FF LEVEL: 150 NG/ML Performed By: #### 5 7021-8 #### FELIPA LEWIS ([id number]) [facility] ([facility]) [address] [place] [address] Cannabinoids Screen Ql (U) Negative Normal Presumptive Negative [facility] Comment on above: Order Comment: Drug screen results are presumptive and should not be used to assesscompliance with prescribed medication. Contact the performing [facility] laboratoryto add-on definitive confirmatory testing if clinically indicated.Toxicology screening results are reported qualitatively. The concentration must???be greater than or equal to the cutoff to be reported as positive. The concentrationat which the screening test can detect an individual drug or metabolite varies.The absence of expected drug(s) and/or drug metabolite(s) may indicate non-compliance,inappropriate timing of specimen collection relative to drug administration, poor drugabsorption, diluted/adulterated urine, or limitations of testing. For medical purposesonly; not valid for forensic use.Interpretive questions should be directed to the laboratory medical directors. Result Comment: CUTO FF LEVEL: 50 NG/ML Performed By: #### 5 7021-8 #### FELIPA LEWIS ([id number]) [facility] ([facility]) [address] [place] [address] fentaNYL+Norfentanyl Screen Ql (U) Negative Normal Presumptive Negative [facility] Comment on above: Order Comment: Drug screen results are presumptive and should not be used to assesscompliance with prescribed medication. Contact the performing [facility] laboratoryto add-on definitive confirmatory testing if clinically indicated.Toxicology screening results are reported qualitatively. The concentration must???be greater than or equal to the cutoff to be reported as positive. The concentrationat which the screening test can detect an individual drug or metabolite varies.The absence of expected drug(s) and/or drug metabolite(s) may indicate non-compliance,inappropriate timing of specimen collection relative to drug administration, poor drugabsorption, diluted/adulterated urine, or limitations of testing. For medical purposesonly; not valid for forensic use.Interpretive questions should be directed to the laboratory medical directors. Result Comment: CUTO FF LEVEL: 5 NG/ML Performed By: #### 5 7021-8 #### FELIPA LEWIS ([id number]) [facility] ([facility]) [address] [place] [address] Methadone Screen Ql (U) Negative Normal Presumptive Negative [facility] Comment on above: Order Comment: Drug screen results are presumptive and should not be used to assesscompliance with prescribed medication. Contact the performing [facility] laboratoryto add-on definitive confirmatory testing if clinically indicated.Toxicology screening results are reported qualitatively. The concentration must???be greater than or equal to the cutoff to be reported as positive. The concentrationat which the screening test can detect an individual drug or metabolite varies.The absence of expected drug(s) and/or drug metabolite(s) may indicate non-compliance,inappropriate timing of specimen collection relative to drug administration, poor drugabsorption, diluted/adulterated urine, or limitations of testing. For medical purposesonly; not valid for forensic use.Interpretive questions should be directed to the laboratory medical directors. Result Comment: CUTO FF LEVEL: 150 NG/ML The metabolite H-tjcst-xuwxmqiqwrmwzw (LAAM) is not detected by this method in concentrations that would be found in the urine of patients on LAAM therapy. Performed By: #### 5 7021-8 #### FELIPA LEWIS ([id number]) [facility] ([facility]) [address] [place] [address] Opiates Screen Ql (U) Negative Normal Presum ptive Negative [facility] Comment on above: Order Comment: Drug screen results are presumptive and should not be used to assesscompliance with prescribed medication. Contact the performing [facility] laboratoryto add-on definitive confirmatory testing if clinically indicated.Toxicology screening results are reported qualitatively. The concentration must???be greater than or equal to the cutoff to be reported as positive. The concentrationat which the screening test can detect an individual drug or metabolite varies.The absence of expected drug(s) and/or drug metabolite(s) may indicate non-compliance,inappropriate timing of specimen collection relative to drug administration, poor drugabsorption, diluted/adulterated urine, or limitations of testing. For medical purposesonly; not valid for forensic use.Interpretive questions should be directed to the laboratory medical directors. Result Comment: CUTO FF LEVEL: 300 NG/ML The opiate screen does not detect fentanyl, meperidine, or tramadol. Oxycodone is not consistently detected (refer to Oxycodone Screen, Urine result). Performed By: #### 5 7021-8 #### FELIPA LEWIS ([id number]) [facility] [place] [address] oxyCODONE+oxyMORphone Screen Ql (U) Negative Normal Presumptive Negative [facility] Comment on above: Order Comment: Drug screen results are presumptive and should not be used to assesscompliance with prescribed medication. Contact the performing [facility] laboratoryto add-on definitive confirmatory testing if clinically indicated.Toxicology screening results are reported qualitatively. The concentration must???be greater than or equal to the cutoff to be reported as positive. The concentrationat which the screening test can detect an individual drug or metabolite varies.The absence of expected drug(s) and/or drug metabolite(s) may indicate non-compliance,inappropriate timing of specimen collection relative to drug administration, poor drugabsorption, diluted/adulterated urine, or limitations of testing. For medical purposesonly; not valid for forensic use.Interpretive questions should be directed to the laboratory medical directors. Result Comment: CUTO FF LEVEL: 100 NG/ML This test will accurately detect both oxycodone and oxymorphone. Performed By: #### 5 7021-8 #### EFLIPA LEWIS ([id number]) [facility] ([facility]) [address] [place] [address] Phencyclidine Ql (U) Negative Normal Presump tive Negative [facility] Comment on above: Order Comment: Drug screen results are presumptive and should not be used to assesscompliance with prescribed medication. Contact the performing [facility] laboratoryto add-on definitive confirmatory testing if clinically indicated.Toxicology screening results are reported qualitatively. The concentration must???be greater than or equal to the cutoff to be reported as positive. The concentrationat which the screening test can detect an individual drug or metabolite varies.The absence of expected drug(s) and/or drug metabolite(s) may indicate non-compliance,inappropriate timing of specimen collection relative to drug administration, poor drugabsorption, diluted/adulterated urine, or limitations of testing. For medical purposesonly; not valid for forensic use.Interpretive questions should be directed to the laboratory medical directors. Result Comment: CUTO FF LEVEL: 25 NG/ML Cross-reactivity has been reported with dextromethorphan. Performed By: #### 5 7021-8 #### FELIPA LEWIS ([id number]) [facility] ([facility]) [address] [place] [address], [place] [address] Drug Screen, Urineon 025 Amphetamines Screen Ql (U) Negative Presumptive Negative [facility] Comment on above: CUTOFF LEVEL: 500 NG /ML Cross-reactivity has been reported with high concentrations of the following drugs: buproprion, chloroquine, chlorpromazine, ephedrine, mephentermine, fenfluramine, phentermine, phenylpropanolamine, pseudoephedrine, and propranolol. Barbiturates Screen Ql (U) Negative Presumptive Negative [facility] Comment on above: CUTOFF LEVEL: 200 NG /ML Benzodiazepines Ql (U) Negative Presumptive Negative [facility] Comment on above: CUTOFF LEVEL: 200 NG /ML Benzoylecgonine Screen Ql (U) Negative Presumptive Negative [facility] Comment on above: CUTOFF LEVEL: 150 NG /ML Cannabinoids Screen Ql (U) Negative Presumptive Negative [facility] Comment on above: CUTOFF LEVEL: 50 NG/ ML fentaNYL+Norfentanyl Screen Ql (U) Negative Presumptive Negative [facility] Comment on above: CUTOFF LEVEL: 5 NG/M L Interpretation and review of laboratory results Normal [facility] Methadone Screen Ql (U) Negative Presumptive Negative [facility] Comment on above: CUTOFF LEVEL: 150 NG /ML The metabolite M-vnobj-dyninkmqihnpze (LAAM) is not detected by this method in concentrations that would be found in the urine of patients on LAAM therapy. Opiates Screen Ql (U) Negative Presum ptive Negative [facility] Comment on above: CUTOFF LEVEL: 300 NG /ML The opiate screen does not detect fentanyl, meperidine, or tramadol. Oxycodone is not consistently detected (refer to Oxycodone Screen, Urine result). oxyCODONE+oxyMORphone Screen Ql (U) Negative Presumptive Negative [facility] Comment on above: CUTOFF LEVEL: 100 NG /ML This test will accurately detect both oxycodone and oxymorphone. Phencyclidine Ql (U) Negative Presump tive Negative [facility] Comment on above: CUTOFF LEVEL: 25 NG/ ML Cross-reactivity has been reported with dextromethorphan. Drug screen results are presumptive and should not be used to assess compliance with prescribed medication. Contact the performing [facility] laboratory to add-on definitive confirmatory testing if clinically indicated. Toxicology screening results are reported qualitatively. The concentration must be greater than or equal to the cutoff to be reported as positive. The concentration at which the screening test can detect an individual drug or metabolite varies. The absence of expected drug(s) and/or drug metabolite(s) may indicate non-compliance, inappropriate timing of specimen collection relative to drug administration, poor drug absorption, diluted/adulterated urine, or limitations of testing. For medical purposes only; not valid for forensic use. Interpretive questions should be directed to the laboratory medical directors. [facility] HCG ( test) IA.rapi d Ql (U)Ordered By: Tamy Zimmer on 10-29-2024 HCG ( test) Ql (U) Negative NEGATIVE [facility] Interpretation and review of laboratory results Normal [facility] HCG ( test) [place].rapi d Ql (U)on 10-29-2024 HCG ( test) Ql (U) Negative Normal NEGATIVE [facility] Comment on above: Performed By: #### 8 0384-1 #### FELIPA LEWIS ([id number]) [facility] ([facility]) [address] [place] [address] No Panel Informationon 10-29 [facility] Urinalysis complete W Reflex Culture panel (U)on 10-29-2024 Epithelial cells.squamous Auto (Urine sed) [#/Area] 10-25 (FEW) Reference range not established. /HPF [facility] Mucus Auto (Urine sed) [#/Area] FEW Reference range not established. /LPF [facility] RBC Auto (Urine sed) [#/Area] NONE NONE, 1-2, 3-5 /HPF [facility] WBC Auto (Urine sed) [#/Area] 1-5 1-5, NONE /HPF [facility] Appearance (U) Turbid Normal Clear [facility] Comment on above: Order Comment: OVER is reported when the result is greater than the clinically reportable range. Performed By: #### 5 7021-8 #### FELIPA LEWIS ([id number]) [facility] ([facility]) [address] [place] [address] Bilirubin (U) [Mass/Vol] Negative Normal NEGATIVE [facility] Comment on above: Order Comment: OVER is reported when the result is greater than the clinically reportable range. Performed By: #### 5 7021-8 #### FELIPA LEWIS ([id number]) [facility] ([facility]) [address] [place] [address] Color (U) Light-Yellow Normal Light-Yellow , Yellow, Dark-Yellow [facility] Comment on above: Order Comment: OVER is reported when the result is greater than the clinically reportable range. Performed By: #### 5 7021-8 #### FELIPA LEWIS ([id number]) [facility] ([facility]) [address] [place] [address] Epithelial cells.squamous Auto (Urine sed) [#/Area] 10-25 (FEW) Normal Reference range not established. [facility] Comment on above: Performed By: #### 5 7021-8 #### FELIPA LEWIS ([id number]) [facility] ([facility]) [address] [place] [address] Glucose Auto test strip (U) [Mass/Vol] OVER (4+) Abnormal Normal [facility] Comment on above: Order Comment: OVER is reported when the result is greater than the clinically reportable range. Performed By: #### 5 7021-8 #### FELIPA LWEIS ([id number]) [facility] ([facility]) [address] [place] [address] Ketones (U) [Mass/Vol] Negative Normal NEGATIVE [facility] Comment on above: Order Comment: OVER is reported when the result is greater than the clinically reportable range. Performed By: #### 5 7021-8 #### FELIPA LEWIS ([id number]) [facility] ([facility]) [address] [place] [address] Leukocyte esterase Auto test strip Ql (U) Negative Normal NEGATIVE [facility] Comment on above: Order Comment: OVER is reported when the result is greater than the clinically reportable range. Performed By: #### 5 7021-8 #### FELIPA LEWIS ([id number]) [facility] ([facility]) [facility] [place] [address] Mucus Auto (Urine sed) [#/Area] FEW Normal Reference range not established. [facility] Comment on above: Performed By: #### 5 7021-8 #### FELIPA LEWIS ([id number]) [facility] ([facility]) [address] [place] [address] 988[address] Nitrite Auto test strip Ql (U) Negative Normal NEGATIVE [facility] Comment on above: Order Comment: OVER is reported when the result is greater than the clinically reportable range. Performed By: #### 5 7021-8 #### FELIPA LEWIS ([id number]) [facility] ([facility]) [address] [place] [address] 42900 pH (U) 6.5 [pH] Normal 5.0, 5.5, 6.0, 6.5, 7.0, 7.5, 8.0 [facility] Comment on above: Order Comment: OVER is reported when the result is greater than the clinically reportable range. Performed By: #### 5 7021-8 #### FELIPA LEWIS ([id number]) [facility] ([facility]) [address] [place] [address] 905[address] Protein (U) [Mass/Vol] 10 (TRACE) Normal NEGATIVE, 10 (TRACE), 20 (TRACE) [facility] Comment on above: Order Comment: OVER is reported when the result is greater than the clinically reportable range. Performed By: #### 5 7021-8 #### FELIPA LEWIS ([id number]) [facility] ([facility]) [address] [place] [address] 74037 RBC (U) [#/Vol] Negative Normal NEGATIVE [facility] Comment on above: Order Comment: OVER is reported when the result is greater than the clinically reportable range. Performed By: #### 5 7021-8 #### FELIPA LEWIS ([id number]) [facility] ([facility]) [address] [place] [address] 18467 RBC Auto (Urine sed) [#/Area] NONE Normal NONE, 1-2, 3-5 [facility] Comment on above: Performed By: #### 5 7021-8 #### FELIPA LEWIS ([id number]) [facility] ([facility]) [address] [place] [address] Specific gravity (U) [Rel density] 1.020 Normal 1.005-1.035 [facility] Comment on above: Order Comment: OVER is reported when the result is greater than the clinically reportable range. Performed By: #### 5 7021-8 #### FELIPA LEWIS ([id number]) [facility] ([facility]) [address] [place] [address] Urobilinogen (U) [Mass/Vol] Normal Normal Normal [facility] Comment on above: Order Comment: OVER is reported when the result is greater than the clinically reportable range. Performed By: #### 5 7021-8 #### FELIPA LEWIS ([id number]) [facility] ([facility]) [address] [place], [place] [id number] WBC Auto (Urine sed) [#/Area] 1-5 Normal 1-5, NONE [facility] Comment on above: Performed By: #### 5 7021-8 #### FELIPA LEWIS ([id number]) [facility] ([facility]) [address] [place] [address] Urinalysis complete W Reflex Culture panel (U)Ordered By: Tiffanie Espinal on 10-29-2024 Appearance (U) Turbid Abnormal Clear [facility] Bilirubin (U) [Mass/Vol] Negative NEGATIVE [facility] Color (U) Light-Yellow Light-Yellow , Yellow, Dark-Yellow [facility] Glucose Auto test strip (U) [Mass/Vol] OVER (4+) Abnormal Normal mg/dL [facility] Interpretation and review of laboratory results Abnormal [facility] Ketones (U) [Mass/Vol] Negative NEGATIVE mg/dL [facility] Leukocyte esterase Auto test strip Ql (U) Negative NEGATIVE [facility] Nitrite Auto test strip Ql (U) Negative NEGATIVE [facility] [facility] pH (U) 6.5 [pH] 5.0, 5.5, 6.0, 6.5, 7.0, 7.5, 8.0 [facility] Protein (U) [Mass/Vol] 10 (TRACE) NEGATIVE, 10 (TRACE), 20 (TRACE) mg/dL [facility] RBC (U) [#/Vol] Negative NEGATIVE [facility] Specific gravity (U) [Rel density] 1.020 1.005 - 1.035 [facility] Urobilinogen (U) [Mass/Vol] Normal Normal mg/dL [facility] OVER is reported whe n the result is greater than the clinically reportable range. [facility] CNPNon 10-23-2024 CNPN Telephone ([facility]) REINALDO WARREN ([id number]) 1985 F Date Time Provider Department 10/23/24 JEANETTE MILLER [facility] During your visit today, we recorded the following information about you: Agnieszka Hughes 10/23/2024 11:20 AM Signed Patient called and stated, she is dealing with a lot right now and would like a increase of her medications. Patient also stated she would like provider or nurse to reach and talk to her about her situation. I scheduled patient and appointment for 10/29/2024 Thank you Agnieszka Hughes October 23, 2024 11:19 AM Jeanette Miller APRN.PUBLIC SAFETY TELECOMMUNICATOR 10/23/2024 11:25 AM Signed Please call for further details. Remeron was increased at last visit 08/14/24 but has not followed up since. How did that go? Also, has she followed up with therapist recommended after completion of IOP? Matt Bradshaw LPN 10/23/2024 11:47 AM Addendum Nurse spoke to patient regarding message . Patient reports the Remeron did work a lot in the beginning Her depression and anxiety have increased due to a work situation which she did not go into detail about, but did state it is being handled by management and they are being fair to whatever is happening. Patient sounding tearful as when nurse called, she was at work. Patient reports passive SI with no plan. Does not feel wanted Patient denies HI and feels safe at home. Patient is engaged with therapy,reports as needed and is calling today to schedule an appointment . Jeanette Miller APRN.PUBLIC SAFETY TELECOMMUNICATOR 10/24/2024 2:32 PM Signed Advise continuing on current medications at this time - will discuss about any changes during appointment on 10/29/24. Advise to follow up with therapist more frequently. If any worsened SI go to ED for evaluation. Allergies As of Date: 10/23/2024 Noted Allergy Reaction AUGMENTIN (AMOXICILLIN-POT CLAVUL*12/16/2010 1 - Mental Status Change SHELLFISH 12/12/2010 7 - Swelling TYLENOL #3 (CODEINE) 08/06/2007 7 - Swelling VENOM-HONEY BEE 12/28/2018 7 - Swelling Date Reviewed: 05/09/2024 Reviewed by: Ngozi Nguyen MA - Fully Assessed Prescriptions as of 10/24/2024 - mirtazapine (REMERON) 30 mg tablet Take 1 tablet by mouth daily at bedtime. - venlafaxine ER (EFFEXOR XR) 150 mg 24 hr capsule Take 1 capsule by mouth once daily. with 37.5 mg capsule for a total of 187.5 mg daily - venlafaxine ER (EFFEXOR XR) 37.5 mg 24 hr capsule Take 1 capsule by mouth once daily. with 150 mg capsule for a total of 187.5 mg daily - gabapentin (NEURONTIN) 100 mg capsule Take 1 capsule by mouth three times a day as needed (for anxiety) for up to 30 days. - lisinopril (ZESTRIL) 40 mg tablet Take 1 tablet by mouth once daily. - rosuvastatin (CRESTOR) 5 mg tablet take 1 tablet by mouth everyday at bedtime - linaclotide (LINZESS) 145 mcg capsule Take by mouth. - cyclobenzaprine (FLEXERIL) 10 mg tablet Take 1 tablet by mouth three times daily as needed for muscle spasm. Problem List As Of Date 10/23/2024 Noted Resolved Adjustment disorder with depressed mood [F43.21]10/06/2008 Asthma, mild intermittent [J45.20] 01/27/2009 Glycosuria [R81] 07/06/2009 07/18/2013 Closed fracture of metacarpal bone(s), site uns*01/05/2010 02/03/2013 Hemorrhoids [K64.9] 05/19/2011 02/03/2013 Irregular menstrual bleeding [N92.6] 06/13/2012 11/18/2012 Postcoital bleeding [N93.0] 06/13/2012 09/26/2012 Amenorrhea [N91.2] 10/15/2012 02/03/2013 History of [Z98.891] 10/31/2012 07/18/2013 History of gestational diabetes [Z86.32] 10/31/2012 10/13/2020 History of hypertension [Z86.79] 10/31/2012 08/14/2019 Reading difficulty [F81.0] 10/31/2012 08/14/2019 Family history of defects [Z82.79] 10/31/2012 08/14/2019 History of anesthesia complications [Z87.898] 10/31/2012 07/18/2013 Rubella non-immune status, antepartum [O09.899,*11/01/2012 07/18/2013 LOC (loss of consciousness) [R40.20] 02/03/2013 07/18/2013 Abnormal glucose complicating [O99.81*03/16/2013 07/18/2013 Nipple discharge [N64.52] 02/19/2016 08/14/2019 Lump or mass in breast [N63.0] 02/19/2016 08/14/2019 Umbilical hernia [K42.9] 06/07/2017 08/14/2019 Intramural uterine fibroid [D25.1] 08/14/2019 Hypertension, essential [I10] 04/02/2020 Intermittent alternating 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] 05/31/2020 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 [facility] POINT OF CARE ULTRASOUND NO CHARGEon 08-19-2024 POINT OF CARE ULTRASOUND NO CHARGE These images are not reportable by radiology and will not be interpreted by Radiologists. Normal [facility] US Abdomenon 08-19-2024 These images are not reportable by radiology and will not be interpreted by Radiologists. IMAGING POINT OF CARE ULTRASOUND NO CHARGEon 07-31-2024 POINT OF CARE ULTRASOUND NO CHARGE These images are not reportable by radiology and will not be interpreted by Radiologists. Normal [facility] US Abdomenon 07-31-2024 These images are not reportable by radiology and will not be interpreted by Radiologists. IMAGING L Inj/Asp: R glenohumeralon 07-18-2024 Elvis Randolph MD 07/18/2024 2:57 PM L Inj/Asp: R glenohumeral on 07/18/2024 2:56 PM Medications: 40 mg triamcinolone acetonide 40 mg/mL [facility] Work Phone: [facility] Work Phone: POINT OF CARE ULTRASOUND NO CHARGEon 07-17-2024 POINT OF CARE ULTRASOUND NO CHARGE These images are not reportable by radiology and will not be interpreted by Radiologists. Normal [facility] Plastic Surgery Visit Report on 07-17-2024 Plastic Surgery Visit Report [facility] Plastic Reconstructive Surgery [address], [address] [place], [place] [address] OFFICE VISIT Date of Service: 07/17/24 MR#: [id number] Acct: [id number] Name: REINALDO WARREN Rep #: [id number] : 1985 Provider: Dr. Elvis Platt MD Age/Sex: 39/F [place] [facility] Status: Signed Intake Vital Signs 3 07/15/24 17:58 07/17/24 10:35 Height 5 ft 3 in 5 ft 3 in BP 147/90 H Blood Pressure Location Lt brachial Position Sitting Respiration 18 Pulse 120 H Temp 98.7 F Temp Source Oral Pulse Oximetry (%) 98 Oxygen Delivery Method room air Intake Visit Reasons: FOLLOW UP Chief Complaint: pt here for right shoulder pain Is patient in pain?: Yes (07/17) Allergies amoxicillin (From Augmentin) Allergy (Unknown, Verified 07/17/24 10:37) unknown clavulanic acid (From Augmentin) Allergy (Unknown, Verified 07/17/24 10:37) unknown codeine phosphate (From Tylenol-Codeine #3) Allergy (Verified 07/17/24 10:37) Swelling shellfish derived Allergy (Verified 07/17/24 10:37) Swelling venom-honey bee (bee venom (honey bee)) Allergy (Verified 07/17/24 10:37) Angioedema Medications 3 ???Medication ???Instructions ???Recorded ???Confirmed ???Type handicap placard #1 ea 12/18/22 06/03/24 Rx miscellaneous medical supply #1 ea 12/18/22 06/03/24 Rx (Blood Pressure Cuff) atorvastatin 20 mg tablet 20 mg PO DAILY 05/09/24 07/15/24 History empagliflozin 10 mg tablet 10 mg PO DAILY 05/09/24 07/15/24 History (Jardiance) mirtazapine 15 mg tablet 15 mg PO QHS 05/09/24 07/15/24 History trazodone 100 mg tablet 150 mg PO QHS PRN insomnia 05/09/24 07/15/24 History venlafaxine 150 mg 150 mg PO DAILY 05/09/24 07/15/24 History capsule,extended release 24 hr venlafaxine 37.5 mg 37.5 mg PO DAILY 05/09/24 07/15/24 History capsule,extended release 24 hr lisinopril 10 mg tablet 10 mg PO DAILY 30 days #30 tabs 05/12/24 07/15/24 Rx dulaglutide 1.5 mg/0.5 mL 1.5 mg subcut QWEEK 07/15/24 07/15/24 [facility] hydrocodone-acetaminoph en 5-325mg 1 tab PO Q4H PRN PRN Pain 2 days 07/15/24 Rx 5mg-325mg #15 TABLETS ketorolac 10 mg tablet 10 mg PO TID 07/15/24 07/15/24 History lisinopril 40 mg tablet 40 mg PO DAILY 07/15/24 07/15/24 History naproxen 500 mg tablet 500 mg PO BID 07/15/24 07/15/24 History prazosin 1 mg capsule 1 mg PO QHS 07/17/24 07/17/24 History Nurse's Note: pt seen in the ER Sunday. 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 pt has had pain for 5 weeks but now cant move arm. [facility] Medical History History of IBS History of anxiety History of depression History of asthma History of seasonal allergies Pott's disease Hypotension COVID-19 virus detected (02/12/21) History of syncope (08/2013) Asthma Dyslexia Migraine History of gestational diabetes Dysthymic disorder Essential hypertension Urinary tract infection Cervical paraspinal muscle spasm Depression Seizures Seizure disorder Type 2 diabetes mellitus Surgical History History of History of tubal ligation History of umbilical hernia repair History of cholecystectomy Family History Mother Asthma Hypertension Breast cancer Diabetes Father Diabetes Hypertension Hyperlipidemia Grandmother Myocardial infarction Grandfather Cancer Lung Grandfather Cancer Throat Aunt Breast cancer Social History Smoking Status: Former smoker how long ago did patient quit smokin years ago alcohol intake: never substance use type: does not use additional social history: denies vaping, denies marijuana use, denies edibles, uses ibuprofen and aspirin as needed HPI FOLLOW UP Details: Surgery/Procedure Date: 09 May 2024 Incision/Procedure Start Time: 16:34 Incision Close/Procedure End Time: 17:10 Surgeon: Elvis Platt MD Pre-Op/Pre-Procedure Diagnosis: Right index finger flexor tenosynovitis. Post-Op/Post-Procedure Diagnosis:Same Procedure(s): 1.??? Incision and drainage of right index finger with A1 jason release (and A5 jason release) for the treatment of flexor tenosynovitis, CPT code (13804) Findings: Thickened and inflamed synovium at the level of the A1 jason with clear yellow drainage around the tendon within the sheath Current encounter, 17 July 2024: Patient is here at 2-1/2 months postop. Here because her right shoulder is painful. Nurse practitioner and in [place] told her that it may be related to her right hand, and she was sent to the emergency depa (more content not included)... Normal [facility] US Abdomenon 07-17-2024 These images are not reportable by radiology and will not be interpreted by Radiologists. IMAGING CBC W/Diff, Automatedon 10-0 Absolute Lymph 2.04 X10 3/uL Normal 0.83-4.51 [facility] Comment on above: Performed By: #### L 100.0100 #### [facility] [address] [place], [address] Absolute Neut 4.7 X10 3/uL Normal 2.0-7.7 [facility] Comment on above: Performed By: #### L 100.0100 #### [facility] [address] [place], [address] Basophils/100 WBC (Bld) 0.7 % Normal 0-1 [facility] Comment on above: Performed By: #### L 100.0100 #### [facility] [address] [place], [address] Eosinophils/100 WBC (Bld) 0.1 % Normal 0-5 [facility] Comment on above: Performed By: #### L 100.0100 #### [facility] [address] [place], [address] Erythrocyte distribution width (RBC) [Ratio] 15.3 % High 11.6-14.6 [facility] Comment on above: Performed By: #### L 100.0100 #### [facility] [address] [place], [address] Hematocrit (Bld) [Volume fraction] 39.4 % Normal 37-47 [facility] Comment on above: Performed By: #### L 100.0100 #### [facility] [address] [place], [address] Hemoglobin (Bld) [Mass/Vol] 13.4 g/dL Normal 12.0-15.0 [facility] Comment on above: Performed By: #### L 100.0100 #### [facility] [address] [place], [address] IG% 0.800 Normal 0.0-0.9 [facility] Comment on above: Result Comment: IG% - Immature Granulocytes (promyelocytes, myelocytes and metamyelocytes) > 1% indicates that a LEFT SHIFT is Present. Performed By: #### L 100.0100 #### [facility] [address] [place], [address] Lymphocytes/100 WBC (Bld) 27.7 % Normal 19-41 [facility] Comment on above: Performed By: #### L 100.0100 #### [facility] [address] [place], [address] MCH (RBC) [Entitic mass] 30.7 pg Normal 27.0-32.0 [facility] Comment on above: Performed By: #### L 100.0100 #### [facility] [address] [place], [address] MCHC (RBC) [Mass/Vol] 34.0 g/dL Normal 32-[address] [facility] Comment on above: Performed By: #### L 100.0100 #### [facility] [address] [place], [address] MCV (RBC) [Entitic vol] 90.2 fL Normal 81-99 [facility] Comment on above: Performed By: #### L 100.0100 #### [facility] [address] [place], [address] Monocytes/100 WBC (Bld) 6.9 % Normal 0-10 [facility] Comment on above: Performed By: #### L 100.0100 #### [facility] [address] [place], [address] Neutrophils/100 WBC (Bld) 63.8 % Normal 47-70 [facility] Comment on above: Performed By: #### L 100.0100 #### [facility] [address] [place], [address] Nucleated RBC (Bld) [#/Vol] 0 10*3/uL Normal 0-5 [facility] Comment on above: Performed By: #### L 100.0100 #### [facility] [address] [place], [address] Platelet mean volume (Bld) [Entitic vol] 9.9 fL Normal 6.2-12.0 [facility] Comment on above: Performed By: #### L 100.0100 #### [facility] [address] [place], [address] Platelets (Bld) [#/Vol] 201 10*3/uL Normal 150-450 [facility] Comment on above: Performed By: #### L 100.0100 #### [facility] [address] [place], [address] RBC (Bld) [#/Vol] 4.37 10*6/uL Normal 4.2-5.4 [facility] Comment on above: Performed By: #### L 100.0100 #### [facility] [address] [place], [address] RDW SD 50.4 fl High 35.1-43.9 [facility] Comment on above: Performed By: #### L 100.0100 #### [facility] [address] [place], [address] WBC (Bld) [#/Vol] 7.4 10*3/uL Normal 4.4-11.0 [facility] Comment on above: Performed By: #### L 100.0100 #### [facility] [address] [place], [address] Absolute Neut Normal 2.0-7.7 [facility] Comment on above: Result Comment: This specimen has been REJECTED due to Laboratory criteria: Quanity Not Sufficient. ARSH VIRK has been notified of need of recollection. 07/15/241849 Stefany H Alin Performed By: #### L 101.9900, L100.0100 #### [facility] [address] [place], [address] HCT Normal 37-47 [facility] Comment on above: Result Comment: This specimen has been REJECTED due to Laboratory criteria: Quanity Not Sufficient. ARSH VIRK has been notified of need of recollection. 07/15/241849 Stefany H Alin Performed By: #### L 101.9900, L100.0100 #### [facility] [address] [place], [address] HGB Normal 12.0-15.0 [facility] Comment on above: Result Comment: This specimen has been REJECTED due to Laboratory criteria: Quanity Not Sufficient. ARSH VIRK has been notified of need of recollection. 07/15/241849 Stefany H Alin Performed By: #### L 101.9900, L100.0100 #### [facility] [address] [place], [address] MCH Normal 27.0-32.0 [facility] Comment on above: Result Comment: This specimen has been REJECTED due to Laboratory criteria: Quanity Not Sufficient. ARSH VIRK has been notified of need of recollection. 07/15/241849 Stefany H Alin Performed By: #### L 101.9900, L100.0100 #### [facility] [address] [place], [address] MCHC Normal 32-36 [facility] Comment on above: Result Comment: This specimen has been REJECTED due to Laboratory criteria: Quanity Not Sufficient. ARSH VIRK has been notified of need of recollection. 07/15/241849 Stefany H Alin Performed By: #### L 101.9900, L100.0100 #### [facility] [address] [place], [address] MCV Normal 81-99 [facility] Comment on above: Result Comment: This specimen has been REJECTED due to Laboratory criteria: Quanity Not Sufficient. ARSH VIRK has been notified of need of recollection. 07/15/241849 Stefany H Alin Performed By: #### L 101.9900, L100.0100 #### [facility] [address] [place], [address] NEUT% Normal 47-70 [facility] Comment on above: Result Comment: This specimen has been REJECTED due to Laboratory criteria: Quanity Not Sufficient. ARSH VIRK has been notified of need of recollection. 07/15/241849 Stefany H Alin Performed By: #### L 101.9900, L100.0100 #### [facility] [address] [place], [address] PLT Normal 150-450 [facility] Comment on above: Result Comment: This specimen has been REJECTED due to Laboratory criteria: Quanity Not Sufficient. ARSH VIRK has been notified of need of recollection. 07/15/241849 Stefany H Alin Performed By: #### L 101.9900, L100.0100 #### [facility] [address] [place], [address] RBC Normal 4.2-5.4 [facility] Comment on above: Result Comment: This specimen has been REJECTED due to Laboratory criteria: Quanity Not Sufficient. ARSH VIRK has been notified of need of recollection. 07/15/241849 Stefany H Alin Performed By: #### L 101.9900, L100.0100 #### [facility] [address] [place], [address] RDW CV Normal 11.6-14.6 [facility] Comment on above: Result Comment: This specimen has been REJECTED due to Laboratory criteria: Quanity Not Sufficient. ARSH VIRK has been notified of need of recollection. 07/15/241849 Stefany H Alin Performed By: #### L 101.9900, L100.0100 #### [facility] [address] [place], [address] RDW SD Normal 35.1-43.9 [facility] Comment on above: Result Comment: This specimen has been REJECTED due to Laboratory criteria: Quanity Not Sufficient. ARSH VIRK has been notified of need of recollection. 07/15/241849 Stefany H Alin Performed By: #### L 101.9900, L100.0100 #### [facility] [address] [place], [address] WBC Normal 4.4-11.0 [facility] Comment on above: Result Comment: This specimen has been REJECTED due to Laboratory criteria: Quanity Not Sufficient. ARSH VIRK has been notified of need of recollection. 07/15/241849 Stefany H Alin Performed By: #### L 101.9900, L100.0100 #### [facility] [address] [place], [address] CRPon 07-15-2024 C-REACTIVE PROT 6.04 mg/L High 0.0-3.0 [facility] Comment on above: Result Comment: C-Re active Protein (CRP) provides useful information for the diagnosis, therapy and monitoring of inflammatory processes and associated diseases. For the evaluation of Relative Risk for Cardiovascular Disease, a High Sensitivity CRP (HSCRP) should be ordered. Performed By: #### L 501.6710 ####[facility] [id number] [place], [address] Emergency Department Summary on 07-15-2024 Emergency Department Summary [facility] Medical Records Department [address] [place] [address] Emergency Department Summary 07/15/24 MR#: [id number] Acct: [id number] Name: REINALDO WARREN Rep #: [id number] : 1985 39 From: Rachel Christiansen DO PCP: Dr. Petros Jernigan MD Status:DEP ER Location: ED HPI History of Present Illness Chief Complaint: Upper Extremity Injury Detail of Chief Complaint: Right shoulder pain Informant: patient Narrative Narrative: Patient presents to the emergency department with right shoulder pain that started 6 weeks ago. Patient states that about 9 weeks ago she had surgery for flexor tenosynovitis on her right index finger by Dr. Platt. Patient denies any injury to her shoulder. She went to an emergency department a week ago and had x-rays of her shoulder which were unremarkable. She was referred to orthopedics and she saw the orthopedic surgeon. Initially she was told she might have a rotator cuff tear but she continues to have pain. She was advised to come to the emergency department to be evaluated for infection that may have spread from the flexor tenosynovitis surgery up to her shoulder. Patient has not had any fevers. She had occasional chills. She complains of pain in her shoulder with range of motion. [facility] Medical History History of IBS History of anxiety History of depression History of asthma History of seasonal allergies Pott's disease Hypotension COVID-19 virus detected (02/12/21) History of syncope (08/2013) Asthma Dyslexia Migraine History of gestational diabetes Dysthymic disorder Essential hypertension Urinary tract infection Cervical paraspinal muscle spasm Depression Seizures Seizure disorder Type 2 diabetes mellitus Home Medications ???Medication ???Instructions ???Recorded ???Last Taken ???Type handicap placard #1 ea 12/18/22 Unknown Rx miscellaneous medical supply #1 ea 12/18/22 Unknown Rx (Blood Pressure Cuff) atorvastatin 20 mg tablet 20 mg PO DAILY 05/09/24 05/09/24 History empagliflozin 10 mg tablet 10 mg PO DAILY 05/09/24 05/09/24 History (Jardiance) mirtazapine 15 mg tablet 15 mg PO QHS 05/09/24 05/08/24 History trazodone 100 mg tablet 150 mg PO QHS PRN insomnia 05/09/24 05/08/24 History venlafaxine 150 mg 150 mg PO DAILY 05/09/24 05/09/24 History capsule,extended release 24 hr venlafaxine 37.5 mg 37.5 mg PO DAILY 05/09/24 05/09/24 History capsule,extended release 24 hr lisinopril 10 mg tablet 10 mg PO DAILY 30 days #30 tabs 05/12/24 Unknown Rx dulaglutide 1.5 mg/0.5 mL 1.5 mg subcut QWEEK 07/15/24 Unknown History subcutaneous pen injector (Trulicity) hydrocodone-acetaminoph en 5-325mg 1 tab PO Q4H PRN PRN Pain 2 days 07/15/24 Unknown Rx 5mg-325mg #15 TABLETS ketorolac 10 mg tablet 10 mg PO TID 07/15/24 Unknown History lisinopril 40 mg tablet 40 mg PO DAILY 07/15/24 Unknown History naproxen 500 mg tablet 500 mg PO BID 07/15/24 Unknown History Allergy/AdvReac Type Severity Reaction Status Date / Time amoxicillin (From Augmentin) Allergy Unknown unknown Verified 07/15/24 17:59 clavulanic acid (From Allergy Unknown unknown Verified 07/15/24 17:59 Augmentin) codeine phosphate (From Allergy Swelling Verified 07/15/24 17:59 Tylenol-Codeine #3) shellfish derived Allergy Swelling Verified 10/08/24 17:59 venom-honey bee (bee venom Allergy Angioedema Verified 07/15/24 17:59 (honey bee)) Family History Mother Asthma Hypertension Breast cancer Diabetes Father Diabetes Hypertension Hyperlipidemia Grandmother Myocardial infarction Grandfather Cancer Lung Grandfather Cancer Throat Aunt Breast cancer Surgical History History of History of tubal ligation History of umbilical hernia repair History of cholecystectomy Social History Smoking Status: Former smoker how long ago did patient quit smokin years ago alcohol intake: never substance use type: does not use additional social history: denies vaping, denies marijuana use, denies edibles, uses ibuprofen and aspirin as needed ROS ROS ED Review of Systems ROS Unobtainable: other Constitutional Constitutional ED: Reports lethargy; Denies chills, fever(s), sweats or weight loss Eyes Eyes: Denies blurry vision, change in vision or diplopia ENT ENT ED: Denies rhinorrhea or sore throat Cardiovascular Cardiovascular: Denies chest pain, orthopnea or racing heartbeat Respiratory/Chest Respiratory/Chest: Denies cough, dyspnea, dyspnea on exertion, orthopnea or sputum Gastrointestinal Gastrointestinal: Denie (more content not included)... Normal [facility] Erythrocyte Sed Rateon 07-15 SED RATE 1 mm/hr Normal 0-30 [facility] Comment on above: Performed By: #### L 101.9900 ####[facility] [address] [place], [place], [id number] SED RATE Normal 0-30 [facility] Comment on above: Result Comment: This specimen has been REJECTED due to Laboratory criteria: Quanity Not Sufficient. ARSH VIRK has been notified of need of recollection. 07/15/24 1850 Stefany Ogden Performed By: #### L 101.9900, L100.0100 #### [facility] [address] [place], [address] CBC W Auto Differential pane l (Bld)on 07-09-2024 Basophils (Bld) [#/Vol] 0.04 10*3/uL [facility] Basophils/100 WBC (Bld) 0.6 % 0.0 - 2.0 % [facility] Eosinophils (Bld) [#/Vol] 0.00 10*3/uL [facility] Eosinophils/100 WBC (Bld) 0.0 % 0.0 - 6.0 % [facility] Erythrocyte distribution width (RBC) [Ratio] 15.9 % High 11.5 - 14.5 % [facility] Hematocrit (Bld) [Volume fraction] 39.7 % 36.0 - 46.0 % [facility] Hemoglobin (Bld) [Mass/Vol] 12.9 g/dL 12.0 - 16.0 g/dL [facility] Immature granulocytes (Bld) [#/Vol] 0.04 10*3/uL [facility] Immature granulocytes/100 WBC (Bld) 0.6 % 0.0 - 0.9 % [facility] Comment on above: Immature Granulocyte Count (IG) includes promyelocytes, myelocytes and metamyelocytes but does not include bands. Percent differential counts (%) should be interpreted in the context of the absolute cell counts (cells/UL). Interpretation and review of laboratory results Abnormal [facility] Lymphocytes (Bld) [#/Vol] 1.80 10*3/uL [facility] Lymphocytes/100 WBC (Bld) 27.5 % 13.0 - 44.0 % [facility] MCH (RBC) [Entitic mass] 31.2 pg 26.0 - 34.0 pg [facility] MCHC (RBC) [Mass/Vol] 32.5 g/dL 32.0 - 36.0 g/dL [facility] MCV (RBC) [Entitic vol] 96 fL 80 - 100 fL [facility] Monocytes (Bld) [#/Vol] 0.47 10*3/uL [facility] Monocytes/100 WBC (Bld) 7.2 % 2.0 - 10.0 % [facility] Neutrophils (Bld) [#/Vol] 4.19 10*3/uL [facility] Comment on above: Percent differential counts (%) should be interpreted in the context of the absolute cell counts (cells/uL). Neutrophils/100 WBC (Bld) 64.1 % 40.0 - 80.0 % [facility] Nucleated RBC/100 WBC (Bld) [Ratio] 0.0 % [facility] Platelets (Bld) [#/Vol] 222 10*3/uL [facility] RBC (Bld) [#/Vol] 4.14 10*6/uL [facility] WBC (Bld) [#/Vol] 6.5 10*3/uL [facility] Basophils (Bld) [#/Vol] 0.04 x10*3/uL Normal 0.00-0.10 [facility] Comment on above: Performed By: #### 5 7021-8 #### FELIPA LEWIS ([id number]) [facility] ([facility]) [address] [place] [address] 37777 Basophils/100 WBC (Bld) 0.6 % Normal 0.0-2.0 [facility] Comment on above: Performed By: #### 5 7021-8 #### FELIPA LEWIS ([id number]) [facility] ([facility]) [address] [place] [address] 59016 Eosinophils (Bld) [#/Vol] 0.00 x10*3/uL Normal 0.00-0.70 [facility] Comment on above: Performed By: #### 5 7021-8 #### FELIPA LEWIS ([id number]) [facility] ([facility]) [address] [place] [address] 82824 Eosinophils/100 WBC (Bld) 0.0 % Normal 0.0-6.0 [facility] Comment on above: Performed By: #### 5 7021-8 #### FELIPA LEWIS ([id number]) [facility] ([facility]) [address] [place] [address] 65741 Erythrocyte distribution width (RBC) [Ratio] 15.9 % High 11.5-14.5 [facility] Comment on above: Performed By: #### 5 7021-8 #### FELIPA LEWIS ([id number]) [facility] ([facility]) [address] [place] [address] 35632 Hematocrit (Bld) [Volume fraction] 39.7 % Normal 36.0-46.0 [facility] Comment on above: Performed By: #### 5 7021-8 #### FELIPA LEWIS ([id number]) [facility] ([facility]) [address] [place] [address] 76780 Hemoglobin (Bld) [Mass/Vol] 12.9 g/dL Normal 12.0-16.0 [facility] Comment on above: Performed By: #### 5 7021-8 #### FELIPA LEIWS ([id number]) [facility] ([facility]) [address] [place] [address] 87537 Immature granulocytes (Bld) [#/Vol] 0.04 x10*3/uL Normal 0.00-0.70 [facility] Comment on above: Performed By: #### 5 7021-8 #### FELIPA LEWIS ([id number]) [facility] ([facility]) [address] [place] [address] 65576 Immature granulocytes/100 WBC (Bld) 0.6 % Normal 0.0-0.9 [facility] Comment on above: Result Comment: Feilsa ture Granulocyte Count (IG) includes promyelocytes, myelocytes and metamyelocytes but does not include bands. Percent differential counts (%) should be interpreted in the context of the absolute cell counts (cells/UL). Performed By: #### 5 7021-8 #### FELIPA LEWIS ([id number]) [facility] ([facility]) [address] [place] [address] 21147 Lymphocytes (Bld) [#/Vol] 1.80 x10*3/uL Normal 1.20-4.80 [facility] Comment on above: Performed By: #### 5 7021-8 #### FELIPA LEWIS ([id number]) [facility] ([facility]) [address] [place] [address] 19362 Lymphocytes/100 WBC (Bld) 27.5 % Normal 13.0-44.0 [facility] Comment on above: Performed By: #### 5 7021-8 #### FELIPA LEWIS ([id number]) [facility] ([facility]) [address] [place] [address] 55785 MCH (RBC) [Entitic mass] 31.2 pg Normal 26.0-34.0 [facility] Comment on above: Performed By: #### 5 7021-8 #### FELIPA LEWIS ([id number]) [facility] ([facility]) [address] [place] [address] 66194 MCHC (RBC) [Mass/Vol] 32.5 g/dL Normal 32.0-36.0 [facility] Comment on above: Performed By: #### 5 7021-8 #### FELIPA LEWIS ([id number]) [facility] ([facility]) [address] [place] [address] 28652 MCV (RBC) [Entitic vol] 96 fL Normal 80-100 [facility] Comment on above: Performed By: #### 5 7021-8 #### FELIPA LEWIS ([id number]) [facility] ([facility]) [address] [place] [address] 59611 Monocytes (Bld) [#/Vol] 0.47 x10*3/uL Normal 0.10-1.00 [facility] Comment on above: Performed By: #### 5 7021-8 #### FELIPA LEWIS ([id number]) [facility] ([facility]) [address] [place] [address] 17874 Monocytes/100 WBC (Bld) 7.2 % Normal 2.0-10.0 [facility] Comment on above: Performed By: #### 5 7021-8 #### FELIPA LEWIS ([id number]) [facility] ([facility]) [address] [place] [address] 89866 Neutrophils (Bld) [#/Vol] 4.19 x10*3/uL Normal 1.20-7.70 [facility] Comment on above: Result Comment: Perc ent differential counts (%) should be interpreted in the context of the absolute cell counts (cells/uL). Performed By: #### 5 7021-8 #### FELIPA LEWIS ([id number]) [facility] ([facility]) [address] [place] [address] 40360 Neutrophils/100 WBC (Bld) 64.1 % Normal 40.0-80.0 [facility] Comment on above: Performed By: #### 5 7021-8 #### FELIPA LEWIS ([id number]) [facility] ([facility]) [address] [place] [address] 48212 Nucleated RBC/100 WBC (Bld) [Ratio] 0.0 /100 WBCs Normal 0.0-0.0 [facility] Comment on above: Performed By: #### 5 7021-8 #### FELIPA LEWIS ([id number]) [facility] ([facility]) [address] [place] [address] 38076 Platelets (Bld) [#/Vol] 222 x10*3/uL Normal 150-450 [facility] Comment on above: Performed By: #### 5 7021-8 #### FELIPA LEWIS ([id number]) [facility] ([facility]) [address] [place] [address] 52797 RBC (Bld) [#/Vol] 4.14 x10*6/uL Normal 4.00-5.20 [facility] Comment on above: Performed By: #### 5 7021-8 #### FELIPA LEWIS ([id number]) [facility] ([facility]) [address] [place] [address] 00597 WBC (Bld) [#/Vol] 6.5 x10*3/uL Normal 4.4-11.3 [facility] Comment on above: Performed By: #### 5 7021-8 #### FELIPA LEWIS ([id number]) [facility] ([facility]) [address] [place] [address] 56465 Comprehensive metabolic 2000 panelon 07-09-2024 Albumin BCP dye [Mass/Vol] 4.2 g/dL 3.4 - 5.0 g/dL [facility] ALP [Catalytic activity/Vol] 76 U/L 33 - 110 U/L [facility] ALT With P-5'-P [Catalytic activity/Vol] 11 U/L 7 - 45 U/L [facility] Comment on above: Patients treated wit h Sulfasalazine may generate falsely decreased results for ALT. Anion gap [Moles/Vol] 11 mmol/L 10 - 2 0 mmol/L [facility] AST With P-5'-P [Catalytic activity/Vol] 18 U/L 9 - 39 U/L [facility] Comment on above: MILD HEMOLYSIS DETEC DERRICK. The result may be falsely elevated due to hemolysis or other interferents. Clinical correlation is recommended. Repeat testing may be considered. Bilirubin [Mass/Vol] 1.1 mg/dL 0.0 - 1 .2 mg/dL [facility] Calcium [Mass/Vol] 8.9 mg/dL 8.6 - 10. 3 mg/dL [facility] Chloride [Moles/Vol] 106 mmol/L 98 - 10 7 mmol/L [facility] CO2 [Moles/Vol] 22 mmol/L 21 - 32 mmol/L [facility] Creatinine [Mass/Vol] 0.63 mg/dL 0.50 - 1.05 mg/dL [facility] eGFR - PINF [facility] Comment on above: Calculations of kayleigh mated GFR are performed using the 2020 CKD-EPI Study Refit equation without the race variable for the IDMS-Traceable creatinine methods. https://jasn.asnjournals.org/content/early/ASN.841487 6918 Glucose [Mass/Vol] 190 mg/dL High 74 - 99 mg/dL [facility] Interpretation and review of laboratory results Abnormal [facility] Potassium [Moles/Vol] 4.2 mmol/L 3.5 - 5.3 mmol/L [facility] Comment on above: MILD HEMOLYSIS DETEC DERRICK. The result may be falsely elevated due to hemolysis or other interferents. Clinical correlation is recommended. Repeat testing may be considered. Protein [Mass/Vol] 6.6 g/dL 6.4 - 8.2 g/dL [facility] Sodium [Moles/Vol] 135 mmol/L Low 136 - 145 mmol/L [facility] Urea nitrogen [Mass/Vol] 12 mg/dL 6 - 23 mg/dL [facility] Albumin BCP dye [Mass/Vol] 4.2 g/dL Normal 3.4-5.0 [facility] Comment on above: Performed By: #### 2 4323-8 #### FELIPA LEWIS ([id number]) [facility] ([facility]) [address] [place] [address] ALP [Catalytic activity/Vol] 76 U/L Normal 33-110 [facility] Comment on above: Performed By: #### 2 4323-8 #### FELIPA LEWIS ([id number]) [facility] ([facility]) [address] [place] [address] ALT With P-5'-P [Catalytic activity/Vol] 11 U/L Normal 7-45 [facility] Comment on above: Result Comment: Renetta ents treated with Sulfasalazine may generate falsely decreased results for ALT. Performed By: #### 2 4323-8 #### FELIPA LEWIS ([id number]) [facility] ([facility]) [address] [place] [address] Anion gap [Moles/Vol] 11 mmol/L Normal 10-20 [facility] Comment on above: Performed By: #### 2 4323-8 #### FELIPA LEWIS ([id number]) [facility] ([facility]) [address] [place] [address] 25271 AST With P-5'-P [Catalytic activity/Vol] 18 U/L Normal 9-39 [facility] Comment on above: Result Comment: MILD HEMOLYSIS DETECTED. The result may be falsely elevated due to hemolysis or other interferents. Clinical correlation is recommended. Repeat testing may be considered. Performed By: #### 2 4323-8 #### FELIPA LEWIS ([id number]) [facility] ([facility]) [facility] [place] [address] Bilirubin [Mass/Vol] 1.1 mg/dL Normal 0.0-1.2 [facility] Comment on above: Performed By: #### 2 4323-8 #### FELIPA LEWIS ([id number]) [facility] ([facility]) [address] [place] [address] 83553 Calcium [Mass/Vol] 8.9 mg/dL Normal 8.6-10.3 [facility] Comment on above: Performed By: #### 2 4323-8 #### FELIPA LWEIS ([id number]) [facility] ([facility]) [address] [place] [address] 85359 Chloride [Moles/Vol] 106 mmol/L Normal 98-107 [facility] Comment on above: Performed By: #### 2 4323-8 #### FELIPA LEWIS ([id number]) [facility] ([facility]) [address] [place] [address] 11826 CO2 [Moles/Vol] 22 mmol/L Normal 21-32 [facility] Comment on above: Performed By: #### 2 4323-8 #### FELIPA LEWIS ([id number]) [facility] ([facility]) [address] [place] [address] 83997 Creatinine [Mass/Vol] 0.63 mg/dL Normal 0.50-1.05 [facility] Comment on above: Performed By: #### 2 4323-8 #### FELIPA LEWIS ([id number]) [facility] ([facility]) [address] [place] [address] 90493 GFR/1.73 sq M.predicted MDRD (S/P/Bld) [Vol rate/Area] mL/min/{1.73_m2} Normal >60 [facility] Comment on above: Result Comment: Calc ulations of estimated GFR are performed using the 2020 CKD-EPI Study Refit equation without the race variable for the IDMS-Traceable creatinine methods. https://jasn.asnjournals.org/content//ASN.337206 6995 Performed By: #### 2 4323-8 #### FELIPA LEWIS ([id number]) [facility] ([facility]) [address] [place] [address] Glucose [Mass/Vol] 190 mg/dL High 74-99 [facility] Comment on above: Performed By: #### 2 4323-8 #### FELIPA LEWIS ([id number]) [facility] ([facility]) [address] [place] [address] 30469 Potassium [Moles/Vol] 4.2 mmol/L Normal 3.5-5.3 [facility] Comment on above: Result Comment: MILD HEMOLYSIS DETECTED. The result may be falsely elevated due to hemolysis or other interferents. Clinical correlation is recommended. Repeat testing may be considered. Performed By: #### 2 4323-8 #### FELIPA LEWIS ([id number]) [facility] ([facility]) [address] [place] [address] 89761 Protein [Mass/Vol] 6.6 g/dL Normal 6.4-8.2 [facility] Comment on above: Performed By: #### 2 4323-8 #### FELIPA LEWIS ([id number]) [facility] ([facility]) [address] [place] [address] 84022 Sodium [Moles/Vol] 135 mmol/L Low 136-145 [facility] Comment on above: Performed By: #### 2 4323-8 #### FELIPA LEWIS ([id number]) [facility] ([facility]) [address] [place] [address] 63997 Urea nitrogen [Mass/Vol] 12 mg/dL Normal 6-23 [facility] Comment on above: Performed By: #### 2 4323-8 #### FELIPA LEWIS ([id number]) [facility] ([facility]) [address] [place] [address] 95162 ECG 12 leadon 07-09-2024 Atrial Rate 70 BPM [facility] Work Phone: P [place] 33 degrees [facility] Work Phone: P Offset 178 ms [facility] Work Phone: P Onset 150 [facility] Work Phone: [place] Interval 140 ms [facility] Work Phone: Q Onset 220 ms [facility] Work Phone: QRS Count 12 beats [facility] Work Phone: QRS Duration 74 ms [facility] Work Phone: QT Interval 390 ms [facility] Work Phone: QTC Calculation(Bazett) 421 ms [facility] Work Phone: QTC Fredericia 410 ms [facility] Work Phone: R [place] -4 degrees [facility] Work Phone: T [place] 21 degrees [facility] Work Phone: T Offset 415 ms [facility] Work Phone: Ventricular Rate 70 BPM [facility] Work Phone: Normal sinus rhythm with sinus arrhythmia Cannot rule out Anterior infarct (cited on or before 23-DEC-2023) Abnormal ECG When compared with ECG of 09-JUL-2024 11:11, Sinus rhythm has replaced Junctional rhythm See ED provider note for full interpretation and clinical correlation Confirmed by Freedom Cordon ([id number]) on 07/09/2024 12:55:27 PM [place] Millicent Cordon, PROSTHETICS LAB TECHNICIAN-PUBLIC SAFETY TELECOMMUNICATOR - 07/09/2024 Normal sinus rhythm with sinus arrhythmia Cannot rule out Anterior infarct (cited on or before 23-DEC-2023) Abnormal ECG When compared with ECG of 09-JUL-2024 11:11, Sinus rhythm has replaced Junctional rhythm See ED provider note for full interpretation and clinical correlation Confirmed by Freedom Cordon ([id number]) on 07/09/2024 12:55:27 PM [facility] Work Phone: [facility] Work Phone: Q Onset 222 ms [facility] Work Phone: QRS Count 13 beats [facility] Work Phone: QRS Duration 70 ms [facility] Work Phone: QT Interval 380 ms [facility] Work Phone: QTC Calculation(Bazett) 435 ms [facility] Work Phone: QTC Fredericia 416 ms [facility] Work Phone: R [place] -1 degrees [facility] Work Phone: T [place] 21 degrees [facility] Work Phone: T Offset 412 ms [facility] Work Phone: Ventricular Rate 79 BPM [facility] Work Phone: [place] al rhythm Cannot rule out Anterior infarct (cited on or before 23-DEC-2023) Abnormal ECG When compared with ECG of 19-APR-2024 14:49, Junctional rhythm has replaced Sinus rhythm Vent. rate has decreased BY 47 BPM Criteria for Inferior infarct are no longer Present See ED provider note for full interpretation and clinical correlation Confirmed by Freedom Cordon ([id number]) on 07/09/2024 11:55:23 AM [place] Millicent Cordon, PROSTHETICS LAB TECHNICIAN-PUBLIC SAFETY TELECOMMUNICATOR - 07/09/2024 Accelerated Junctional rhythm Cannot rule out Anterior infarct (cited on or before 23-DEC-2023) Abnormal ECG When compared with ECG of 19-APR-2024 14:49, Junctional rhythm has replaced Sinus rhythm Vent. rate has decreased BY 47 BPM Criteria for Inferior infarct are no longer Present See ED provider note for full interpretation and clinical correlation Confirmed by Freedom Cordon ([id number]) on 07/09/2024 11:55:23 AM [facility] Work Phone: [facility] Work Phone: ECG 12-LEADon 07-09-2024 ECG 12-LEAD Ventricular Rate 70 Atrial Rate 70 P-R Interval 140 QRS Duration 74 Q-T Interval 390 QTC Calculation(Bazett) 421 P [place] 33 R [place] -4 T [place] 21 QRS Count 12 Q Onset 220 P Onset 150 P Offset 178 T Offset 415 QTC Fredericia 410 Diagnosis Normal sinus rhythm with sinus arrhythmia Cannot rule out Anterior infarct (cited on or before 23-DEC-2023) Abnormal ECG When compared with ECG of 09-JUL-2024 11:11, Sinus rhythm has replaced Junctional rhythm See ED provider note for full interpretation and clinical correlation Confirmed by Freedom Cordon ([id number]) on 07/09/2024 12:55:27 PM Normal [facility] ECG 12-LEAD Ventricular Rate 79 QRS Duration 70 Q-T Interval 380 QTC Calculation(Bazett) 435 R [place] -1 T [place] 21 QRS Count 13 Q Onset 222 T Offset 412 QTC Fredericia 416 Diagnosis Accelerated Junctional rhythm Cannot rule out Anterior infarct (cited on or before 23-DEC-2023) Abnormal ECG When compared with ECG of 19-APR-2024 14:49, Junctional rhythm has replaced Sinus rhythm Vent. rate has decreased BY 47 BPM Criteria for Inferior infarct are no longer Present See ED provider note for full interpretation and clinical correlation Confirmed by Freedom Cordon ([id number]) on 07/09/2024 11:55:23 AM Normal [facility] Magnesiumon 07-09-2024 Magnesium [Mass/Vol] 1.92 mg/dL 1.60 - 2.40 mg/dL [facility] Magnesium [Mass/Vol] 1.92 mg/dL Normal 1.60-2.40 [facility] Comment on above: Performed By: #### 1 9123-9 #### LEO JOSHUA ([id number]) [facility] ([facility]) [address] [place] [address] Magnesium [Mass/Vol]on 07-09 Interpretation and review of laboratory results Normal [facility] SARS coronavirus 2 RNAon SARS-CoV-2 (COVID-19) RNA TAMMY+probe Ql (Resp) Not detected Normal Not Detected [facility] Comment on above: Order Comment: This assay has received FDA Emergency Use Authorization (EUA) and is only authorized for the duration of time that circumstances exist to justify the authorization of the emergency use of in vitro diagnostic tests for the detection of SARS-CoV-2 virus and/or diagnosis of COVID-19 infection under section 564(b)(1) of the Act, 21 U.S.C. 360bbb-3(b)(1). This assay is an in vitro diagnostic nucleic acid amplification test for the qualitative detection of SARS-CoV-2 from nasopharyngeal specimens and has been validated for use at [facility]. Negative results do not preclude COVID-19 infections and should not be used as the sole basis for diagnosis, treatment, or other management decisions. Performed By: #### 9 4500-6 #### LEO JOSHUA ([id number]) [facility] ([facility]) [address] [place] [address] SARS-CoV-2 (COVID-19) RNA NA A+probe Ql (Resp)on 07-09-2024 Interpretation and review of laboratory results Normal [facility] This assay has recei lara FDA Emergency Use Authorization (EUA) and is only authorized for the duration of time that circumstances exist to justify the authorization of the emergency use of in vitro diagnostic tests for the detection of SARS-CoV-2 virus and/or diagnosis of COVID-19 infection under section 564(b)(1) of the Act, 21 U.S.C. 360bbb-3(b)(1). This assay is an in vitro diagnostic nucleic acid amplification test for the qualitative detection of SARS-CoV-2 from nasopharyngeal specimens and has been validated for use at [facility]. Negative results do not preclude COVID-19 infections and should not be used as the sole basis for diagnosis, treatment, or other management decisions. [facility] Sars-CoV-2 PCRon 07-09-2024 SARS-CoV-2 (COVID-19) RNA TAMMY+probe Ql (Resp) Not detected Not Detected [facility] Tropinin I.cardiac panel Hig h sensitivity methodon 07-09-2024 Interpretation and review of laboratory results Normal [facility] Less than 99th percentile of normal range cutoff- Female and children under 18 years old <14 ng/L; Male <21 ng/L: Negative Repeat testing should be performed if clinically indicated. Female and children under 18 years old 14-50 ng/L; Male 21-50 ng/L: Consistent with possible cardiac damage and possible increased clinical risk. Serial measurements may help to assess extent of myocardial damage. >50 ng/L: Consistent with cardiac damage, increased clinical risk and myocardial infarction. Serial measurements may help assess extent of myocardial damage. NOTE: Children less than 1 year old may have higher baseline troponin levels and results should be interpreted in conjunction with the overall clinical context. NOTE: Troponin I testing is performed using a different testing methodology at [facility] than at other legacy [facility]. Direct result comparisons should only be made within the same method. [facility] Interpretation and review of laboratory results Normal [facility] Less than 99th percentile of normal range cutoff- Female and children under 18 years old <14 ng/L; Male <21 ng/L: Negative Repeat testing should be performed if clinically indicated. Female and children under 18 years old 14-50 ng/L; Male 21-50 ng/L: Consistent with possible cardiac damage and possible increased clinical risk. Serial measurements may help to assess extent of myocardial damage. >50 ng/L: Consistent with cardiac damage, increased clinical risk and myocardial infarction. Serial measurements may help assess extent of myocardial damage. NOTE: Children less than 1 year old may have higher baseline troponin levels and results should be interpreted in conjunction with the overall clinical context. NOTE: Troponin I testing is performed using a different testing methodology at [facility] than at other [facility]. Direct result comparisons should only be made within the same method. [facility] Troponin I, High Sensitivity , Initialon 07-09-2024 Tropinin I.cardiac panel High sensitivity method ng/L 0 - 13 ng/L [facility] Troponin I.cardiac panelon 1 Tropinin I.cardiac panel High sensitivity method 3 ng/L Normal 0-13 [facility] Comment on above: Order Comment: Less than 99th percentile of normal range cutoff- Female and children under 18 years old <14 ng/L; Male <21 ng/L: Negative Repeat testing should be performed if clinically indicated. Female and children under 18 years old 14-50 ng/L; Male 21-50 ng/L: Consistent with possible cardiac damage and possible increased clinical risk. Serial measurements may help to assess extent of myocardial damage. >50 ng/L: Consistent with cardiac damage, increased clinical risk and myocardial infarction. Serial measurements may help assess extent of myocardial damage. NOTE: Children less than 1 year old may have higher baseline troponin levels and results should be interpreted in conjunction with the overall clinical context. NOTE: Troponin I testing is performed using a different testing methodology at [facility] than at [facility]. Direct result comparisons should only be made within the same method. Performed By: #### 8 9577-1 #### FELIPA LEWIS ([id number]) [facility] ([facility]) [facility] [place] [id number] Tropinin I.cardiac panel High sensitivity method <3 Normal 0-13 [facility] Comment on above: Order Comment: Less than 99th percentile of normal range cutoff- Female and children under 18 years old <14 ng/L; Male <21 ng/L: Negative Repeat testing should be performed if clinically indicated. Female and children under 18 years old 14-50 ng/L; Male 21-50 ng/L: Consistent with possible cardiac damage and possible increased clinical risk. Serial measurements may help to assess extent of myocardial damage. >50 ng/L: Consistent with cardiac damage, increased clinical risk and myocardial infarction. Serial measurements may help assess extent of myocardial damage. NOTE: Children less than 1 year old may have higher baseline troponin levels and results should be interpreted in conjunction with the overall clinical context. NOTE: Troponin I testing is performed using a different testing methodology at [facility] than at [facility]. Direct result comparisons should only be made within the same method. Performed By: #### 8 [id number] #### FELIPA LEWSI ([id number]) [facility] ([facility]) [facility] [place] [address] Troponin, High Sensitivity, 1 Houron 07-09-2024 Tropinin I.cardiac panel High sensitivity method 3 ng/L 0 - 13 ng/L [facility] XR CHEST 1 VIEWon 07-09-2024 XR CHEST 1 VIEW Interpreted By: Teddy Desouza, STUDY: XR CHEST 1 VIEW; 07/09/2024 11:51 am INDICATION: CLINICAL INFORMATION: Signs/Symptoms:Chest Pain. COMPARISON: 04/06/2024 ACCESSION NUMBER(S): [id number] ORDERING CLINICIAN: FREEDOM BILDERBACK TECHNIQUE: Portable chest one view. FINDINGS: The cardiac size is indeterminate in view of the AP projection. No infiltrates or effusions are identified. Left apical pulmonary calcification is present consistent with remote granulomatous disease. IMPRESSION: No acute pathologic findings are identified. There is no interval change when compared to the previous examination. MACRO: none Signed by: Teddy Desouza 07/09/2024 12:13 PM Dictation workstation: [id number] [facility] XR Chest Single viewon 07-09 No acute pathologic findings are identified. There is no interval change when compared to the previous examination. MACRO: none Signed by: Teddy Desouza 07/09/2024 12:13 PM Dictation workstation: [id number] [facility]AL Interpreted By: Teddy Desouza, STUDY: XR CHEST 1 VIEW; 07/09/2024 11:51 am INDICATION: CLINICAL INFORMATION: Signs/Symptoms:Chest Pain. COMPARISON: 04/06/2024 ACCESSION NUMBER(S): [id number] ORDERING CLINICIAN: FREEDOM CORDON TECHNIQUE: Portable chest one view. FINDINGS: The cardiac size is indeterminate in view of the AP projection. No infiltrates or effusions are identified. Left apical pulmonary calcification is present consistent with remote granulomatous disease. [facility] Teddy Desouza MD - 07/09/2024 Interpreted By: Teddy Desouza, STUDY: XR CHEST 1 VIEW; 07/09/2024 11:51 am INDICATION: CLINICAL INFORMATION: Signs/Symptoms:Chest Pain. COMPARISON: 04/06/2024 ACCESSION NUMBER(S): [id number] ORDERING CLINICIAN: FREEDOM CORDON TECHNIQUE: Portable chest one view. FINDINGS: The cardiac size is indeterminate in view of the AP projection. No infiltrates or effusions are identified. Left apical pulmonary calcification is present consistent with remote granulomatous disease. IMPRESSION: No acute pathologic findings are identified. There is no interval change when compared to the previous examination. MACRO: none Signed by: Teddy Desouza 07/09/2024 12:13 PM Dictation workstation: [id number] [facility] Work Phone: Radiology Study observation (narrative) [facility] Work Phone: XR Chest Single viewOrdered By: Teddy Desouza on 07-09-2024 [facility] Work Phone: XR SHOULDER RIGHT 2+ VIEWSon 07-06-2024 XR SHOULDER RIGHT 2+ VIEWS Interpreted By: Emmanuel Peraza, STUDY: XR SHOULDER RIGHT 2+ VIEWS; ; 07/06/2024 8:46 pm INDICATION: Signs/Symptoms:right shoulder pain. COMPARISON: None. ACCESSION NUMBER(S): [id number] ORDERING CLINICIAN: ANIA URIARTE FINDINGS: Right shoulder, five views There is no fracture. There is no dislocation. There are no degenerative changes. There is no lytic or sclerotic lesion. There is no soft tissue abnormality seen. IMPRESSION: Normal radiographs of the right shoulder MACRO: None Signed by: Emmanuel Peraza 07/06/2024 8:59 PM Dictation workstation: [id number] [facility] XR Shoulder - right 2 Viewso n 07-06-2024 Normal radiographs o f the right shoulder MACRO: None Signed by: Emmanuel Peraza 07/06/2024 8:59 PM Dictation workstation: [id number] MMODAL Interpreted By: Emmanuel Ford, STUDY: XR SHOULDER RIGHT 2+ VIEWS; ; 07/06/2024 8:46 pm INDICATION: Signs/Symptoms:right shoulder pain. COMPARISON: None. ACCESSION NUMBER(S): [id number] ORDERING CLINICIAN: ANIA URIARTE FINDINGS: Right shoulder, five views There is no fracture. There is no dislocation. There are no degenerative changes. There is no lytic or sclerotic lesion. There is no soft tissue abnormality seen. MMODAL Emmanuel Peraza MD - 07/06/2024 Interpreted By: Emmanuel Peraza, STUDY: XR SHOULDER RIGHT 2+ VIEWS; ; 07/06/2024 8:46 pm INDICATION: Signs/Symptoms:right shoulder pain. COMPARISON: None. ACCESSION NUMBER(S): [id number] ORDERING CLINICIAN: ANIA URIARTE FINDINGS: Right shoulder, five views There is no fracture. There is no dislocation. There are no degenerative changes. There is no lytic or sclerotic lesion. There is no soft tissue abnormality seen. IMPRESSION: Normal radiographs of the right shoulder MACRO: None Signed by: Emmanuel Peraza 07/06/2024 8:59 PM Dictation workstation: [id number] [facility] Work Phone: Radiology Study observation (narrative) [facility] Work Phone: XR Shoulder - right 2 ViewsO rdered By: Emmanuel Peraza on 07-06-2024 [facility] Work Phone: Plastic Surgery Visit Report on 06-03-2024 Plastic Surgery Visit Report [facility] Plastic Reconstructive Surgery [address] [place] [address] OFFICE VISIT Date of Service: 06/03/24 MR#: [id number] Acct: [id number] Name: REINALDO WARREN Rep #: [id number] : 1985 Provider: EZ barron Age/Sex: 39/F [facility] [facility] Status: Signed Intake Vital Signs 05/16/24 13:27 06/03/24 13:12 Height 5 ft 3 in 5 ft 3 in Weight: 198 lb 6 oz 190 lb 6 oz BMI 35.1 33.7 BP 112/80 136/93 H Blood Pressure Location Lt brachial Lt brachial Position Sitting Sitting Respiration 18 16 Pulse 101 H 99 Temp 98.1 F 99.1 F Temp Source Temporal Oral Pulse Oximetry (%) 99 99 Oxygen Delivery Method room air room air Intake Visit Reasons: Right hand 2 week f/u Chief Complaint: right hand wound follow up Accompanied by: Is patient in pain?: Yes (01/15) Allergies amoxicillin (From Augmentin) Allergy (Unknown, Verified 06/03/24 13:14) unknown clavulanic acid (From Augmentin) Allergy (Unknown, Verified 06/03/24 13:14) unknown codeine phosphate (From Tylenol-Codeine #3) Allergy (Verified 06/03/24 13:14) Swelling shellfish derived Allergy (Verified 06/03/24 13:14) Swelling venom-honey bee (bee venom (honey bee)) Allergy (Verified 06/03/24 13:14) Angioedema Medications ???Medication ???Instructions ???Recorded ???Confirmed ???Type albuterol sulfate 90 mcg/actuation 2 puff inhalation Q4H PRN Asthma 07/29/21 06/03/24 History aerosol inhaler handicap placard #1 ea 12/18/22 06/03/24 Rx miscellaneous medical supply #1 ea 12/18/22 06/03/24 Rx (Blood Pressure Cuff) atorvastatin 20 mg tablet 20 mg PO DAILY 05/09/24 06/03/24 History empagliflozin 10 mg tablet 10 mg PO DAILY 05/09/24 06/03/24 History (Jardiance) gabapentin 100 mg capsule 100 mg PO TID 05/09/24 06/03/24 History mirtazapine 15 mg tablet 15 mg PO QHS 05/09/24 06/03/24 History trazodone 100 mg tablet 150 mg PO QHS PRN insomnia 05/09/24 06/03/24 History venlafaxine 150 mg 150 mg PO DAILY 05/09/24 06/03/24 History capsule,extended release 24 hr venlafaxine 37.5 mg 37.5 mg PO DAILY 05/09/24 06/03/24 History capsule,extended release 24 hr cephalexin 500 mg capsule 500 mg PO TID 3 days #9 caps 05/12/24 06/03/24 Rx lisinopril 10 mg tablet 10 mg PO DAILY 30 days #30 tabs 05/12/24 06/03/24 Rx Nurse's Note: pt here with follow up on wound on right hand PFSH Medical History History of IBS History of anxiety History of depression History of asthma History of seasonal allergies Pott's disease Hypotension COVID-19 virus detected (02/12/21) History of syncope (08/2013) Asthma Dyslexia Migraine History of gestational diabetes Dysthymic disorder Essential hypertension Urinary tract infection Cervical paraspinal muscle spasm Depression Seizures Seizure disorder Type 2 diabetes mellitus Surgical History History of History of tubal ligation History of umbilical hernia repair History of cholecystectomy Family History Mother Asthma Hypertension Breast cancer Diabetes Father Diabetes Hypertension Hyperlipidemia Grandmother Myocardial infarction Grandfather Cancer Lung Grandfather Cancer Throat Aunt Breast cancer Social History Smoking Status: Former smoker how long ago did patient quit smokin years ago alcohol intake: never substance use type: does not use additional social history: denies vaping, denies marijuana use, denies edibles, uses ibuprofen and aspirin as needed HPI Right hand 2 week f/u Details: Reinaldo is here for her second week postop visit. She states that she is doing well. She is no longer doing the hand soaks now that the incisions have healed in. She does have some mild discomfort when bending her right index finger. She also has noticed that the scarring sometimes get a dark pink/purple color at times. She denies increased pain/numbness or tingling when she notices the change in color. She has not gone to [facility] to see Traci for OT. She states that she has had some transportation issues. She is currently not driving and her has to take off work to take her to all her appointments. She states she is still working on her blood sugar control. Exam Details She is right hand dominant. Right hand without any redness or signs of infection. Incisions are healed. She has some sensitivity over the healed incisions. She is able to make a loose fist. When she squeeze my hand, she keeps her right index finger straight. She is a (more content not included)... Normal [facility] 04-22-2024 [facility] Telephone ([facility]) REINALDO WARREN ([id number]) 1985 F Date Time Provider Department 04/22/24 JEANETTE MILLER [facility] During your visit today, we recorded the following information about you: Lorrie Harrison 04/22/2024 9:34 AM Signed Jeanette, patient called in stating she need for you to give a call back To [phone] because she need to talk to you about her medication. Matt Dick LPN 04/22/2024 10:03 AM Signed Nurse called patient and patient reports she has been having very bad days at work pt is tearful and crying. Her situation is caused by work per patient.It is in its first phase via HR at her job. Attempted to attend a group , but she cannot complete it. When she is majorly stressed, she has seizure like activity and almost passes out. Went to ER Sat night for chest pain and They gave her an Ativan and that really helped. Patient does not have appt w/you until June. Jeanette Miller APRN.CNP 04/22/2024 10:22 AM Signed Sent prescription for gabapentin 100 mg three times daily as needed for anxiety to pharmacy for patient to try. This has been a recurring pattern for her and strongly recommend that she also seek therapy in addition to her current medications. A referral to IOP or individual therapy can be given if she is interested. Matt Bradshaw LPN 04/22/2024 11:20 AM Signed Nurse left VM for patient to call office. ADORE Sandoval Michele, LPN 04/22/2024 11:34 AM Signed Patient called office back. Nurse informed that prescription was sent to patient pharmacy for anxiety. Nurse advised that provider strongly recommends IOP or individual therapy. Patient asked regarding IOP. Nurse will inform patient to look online and call [facility] for virtual IOP. ADORE Sandoval Laurel, APRN.CNP 04/22/2024 11:57 AM Signed Placed referral order for IOP. IOP team will reach out to patient. Jeanette Miller APRN.CNP 04/22/2024 11:57 AM Signed Addended by: JEANETTE MILLER on: 04/22/2024 11:57 AM Modules accepted: Orders Allergies As of Date: 04/22/2024 Noted Allergy Reaction AUGMENTIN (AMOXICILLIN-POT CLAVUL*12/16/2010 1 - Mental Status Change SHELLFISH 12/12/2010 7 - Swelling TYLENOL #3 (CODEINE) 08/06/2007 7 - Swelling VENOM-HONEY BEE 12/28/2018 7 - Swelling Date Reviewed: 04/11/2024 Reviewed by: Jeanette Miller APRN.PUBLIC SAFETY TELECOMMUNICATOR - Fully Assessed Reason for Visit: Discussion [813] Primary Visit Diagnosis:Post-traumati c stress disorder, acute [F43.11] Other Visit Diagnosis:Adjustment disorder with depressed mood [F43.21] Order(s):gabapentin (NEURONTIN) 100 mg capsuleTake 1 capsule by mouth three times a day as needed (for anxiety) for up to 30 days.Disp: 90 capsuleRfl: 0 CONSULT TO INTENSIVE OUTPATIENT PROGRAM (IOP) [4293285] Order #: [id number]: 1 FUTURE Prescriptions as of 04/22/2024 - gabapentin (NEURONTIN) 100 mg capsule Take 1 capsule by mouth three times a day as needed (for anxiety) for up to 30 days. - mirtazapine (REMERON) 15 mg tablet Take 1 tablet by mouth daily at bedtime. - venlafaxine ER (EFFEXOR XR) 37.5 mg 24 hr capsule Take 1 capsule by mouth once daily. with 75 mg capsule for a total of 187.5 mg daily - venlafaxine ER (EFFEXOR XR) 150 mg 24 hr capsule Take 1 capsule by mouth once daily. with 37.5 mg capsule for a total of 187.5 mg daily - lisinopril (ZESTRIL) 40 mg tablet Take 1 tablet by mouth once daily. - rosuvastatin (CRESTOR) 5 mg tablet take 1 tablet by mouth everyday at bedtime - linaclotide (LINZESS) 145 mcg capsule Take by mouth. - cyclobenzaprine (FLEXERIL) 10 mg tablet Take 1 tablet by mouth three times daily as needed for muscle spasm. Problem List As Of Date 04/22/2024 Noted Resolved Adjustment disorder with depressed mood [F43.21]10/06/2008 Asthma, mild intermittent [J45.20] 01/27/2009 Glycosuria [R81] 07/06/2009 07/18/2013 Closed fracture of metacarpal bone(s), site uns*01/05/2010 02/03/2013 Hemorrhoids [K64.9] 05/19/2011 02/03/2013 Irregular menstrual bleeding [N92.6] 06/13/2012 11/18/2012 Postcoital bleeding [N93.0] 06/13/2012 09/26/2012 Amenorrhea [N91.2] 10/15/2012 02/03/2013 History of [Z98.891] 10/31/2012 07/18/2013 History of gestational diabetes [Z86.32] 10/31/2012 10/13/2020 History of hypertension [Z86.79] 10/31/2012 08/14/2019 Reading difficulty [F81.0] 10/31/2012 08/14/2019 Family history of defects [Z82.79] 10/31/2012 08/14/2019 History of anesthesia complications [Z87.898] 10/31/2012 07/18/2013 Rubella non-immune status, antepartum [O09.899,*11/01/2012 07/18/2013 LOC (loss of consciousness) [R40.20] 02/03/2013 07/18/2013 Abnormal glucose complicating [O99.81*03/16/2013 07/18/2013 Nipple discharge [N64.52] 02/19/2016 08/14/2019 Lump or mass in breast [N63.0] 02/19/2016 08/14/2019 Umbilical hernia [K42.9] 06/07/2017 08/14/2019 Intramural (more content not included)... Normal [facility] ECG 12 LeadOrdered By: Kristen Cordon on 04-21-2024 Atrial Rate 126 BPM [facility] Work Phone: P [place] 26 degrees [facility] Work Phone: P Offset 197 ms [facility] Work Phone: P Onset 153 ms [facility] Work Phone: [place] Interval 132 ms [facility] Work Phone: Q Onset 219 ms [facility] Work Phone: QRS Count 20 beats [facility] Work Phone: QRS Duration 76 ms [facility] Work Phone: QT Interval 292 ms [facility] Work Phone: QTC Calculation(Bazett) 422 ms [facility] Work Phone: QTC Fredericia 374 ms [facility] Work Phone: R [place] -15 degrees [facility] Work Phone: T [place] 53 degrees [facility] Work Phone: T Offset 365 ms [facility] Work Phone: Ventricular Rate 126 BPM [facility] Work Phone: [facility] Work Phone: ECG 12 Leadon 04-21-2024 Sinus tachycardia Minimal voltage criteria for LVH, may be normal variant ( R in aVL ) Inferior infarct (cited on or before 06-APR-2024) Anterior infarct (cited on or before 23-DEC-2023) Abnormal ECG When compared with ECG of 06-APR-2024 15:07, No significant change was found See ED provider note for full interpretation and clinical correlation Confirmed by Freedom Cordon ([id number]) on 04/21/2024 11:23:59 AM [place] Millicent Cordon, PROSTHETICS LAB TECHNICIAN-[facility] - 04/21/2024 Sinus tachycardia Minimal voltage criteria for LVH, may be normal variant ( R in aVL ) Inferior infarct (cited on or before 06-APR-2024) Anterior infarct (cited on or before 23-DEC-2023) Abnormal ECG When compared with ECG of 06-APR-2024 15:07, No significant change was found See ED provider note for full interpretation and clinical correlation Confirmed by Freedom Cordon ([id number]) on 04/21/2024 11:23:59 AM [facility] Work Phone: ECG 12-LEADon 04-19-2024 ECG 12-LEAD Ventricular Rate 126 Atrial Rate 126 P-R Interval 132 QRS Duration 76 Q-T Interval 292 QTC Calculation(Bazett) 422 P [place] 26 R [place] -15 T [place] 53 QRS Count 20 Q Onset 219 P Onset 153 P Offset 197 T Offset 365 QTC Fredericia 374 Diagnosis Sinus tachycardia Minimal voltage criteria for LVH, may be normal variant ( R in aVL ) Inferior infarct (cited on or before 06-APR-2024) Anterior infarct (cited on or before 23-DEC-2023) Abnormal ECG When compared with ECG of 06-APR-2024 15:07, No significant change was found See ED provider note for full interpretation and clinical correlation Confirmed by Freedom Cordon ([id number]) on 04/21/2024 11:23:59 AM Normal [facility] CBC W Auto Differential pane l (Bld)on 04-08-2024 Basophils (Bld) [#/Vol] 0.06 x10*3/uL Normal 0.00-0.10 [facility] Comment on above: Performed By: #### 5 7021-8 #### FELIPA LEWIS ([id number]) [facility] ([facility]) [address] [place] [address] 21643 Basophils/100 WBC (Bld) 0.6 % Normal 0.0-2.0 [facility] Comment on above: Performed By: #### 5 7021-8 #### FELIPA LEWIS ([id number]) [facility] ([facility]) [address] [place] [address] 91313 Eosinophils (Bld) [#/Vol] 0.02 x10*3/uL Normal 0.00-0.70 [facility] Comment on above: Performed By: #### 5 7021-8 #### FELIPA LEWIS ([id number]) [facility] ([facility]) [address] [place] [address] 48318 Eosinophils/100 WBC (Bld) 0.2 % Normal 0.0-6.0 [facility] Comment on above: Performed By: #### 5 7021-8 #### FELIPA LEWIS ([id number]) [facility] ([facility]) [address] [place] [address] 37858 Erythrocyte distribution width (RBC) [Ratio] 15.6 % High 11.5-14.5 [facility] Comment on above: Performed By: #### 5 7021-8 #### FELIPA LEWIS ([id number]) [facility] ([facility]) [address] [place] [address] 49779 Hematocrit (Bld) [Volume fraction] 42.3 % Normal 36.0-46.0 [facility] Comment on above: Performed By: #### 5 7021-8 #### FELIPA LEWIS ([id number]) [facility] ([facility]) [address] [place] [address] 74491 Hemoglobin (Bld) [Mass/Vol] 14.0 g/dL Normal 12.0-16.0 [facility] Comment on above: Performed By: #### 5 7021-8 #### FELIPA LEWIS ([id number]) [facility] ([facility]) [address] [place] [address] 93235 Immature granulocytes (Bld) [#/Vol] 0.07 x10*3/uL Normal 0.00-0.70 [facility] Comment on above: Performed By: #### 5 7021-8 #### FELIPA LEWIS ([id number]) [facility] ([facility]) [address] [place] [address] 28612 Immature granulocytes/100 WBC (Bld) 0.7 % Normal 0.0-0.9 [facility] Comment on above: Result Comment: Felisa ture Granulocyte Count (IG) includes promyelocytes, myelocytes and metamyelocytes but does not include bands. Percent differential counts (%) should be interpreted in the context of the absolute cell counts (cells/UL). Performed By: #### 5 7021-8 #### FELIPA LEWIS ([id number]) [facility] ([facility]) [address] [place] [address] 35060 Lymphocytes (Bld) [#/Vol] 3.34 x10*3/uL Normal 1.20-4.80 [facility] Comment on above: Performed By: #### 5 7021-8 #### FELIPA LEWIS ([id number]) [facility] ([facility]) [address] [place] [address] 80820 Lymphocytes/100 WBC (Bld) 35.1 % Normal 13.0-44.0 [facility] Comment on above: Performed By: #### 5 7021-8 #### FELIPA LEWIS ([id number]) [facility] ([facility]) [address] [place] [address] 20284 MCH (RBC) [Entitic mass] 30.4 pg Normal 26.0-34.0 [facility] Comment on above: Performed By: #### 5 7021-8 #### FELIPA LEWIS ([id number]) [facility] ([facility]) [address] [place] [address] 19383 MCHC (RBC) [Mass/Vol] 33.1 g/dL Normal 32.0-36.0 [facility] Comment on above: Performed By: #### 5 7021-8 #### FELIPA LEWIS ([id number]) [facility] ([facility]) [address] [place] [address] 43028 MCV (RBC) [Entitic vol] 92 fL Normal 80-100 [facility] Comment on above: Performed By: #### 5 7021-8 #### FELIPA LEWIS ([id number]) [facility] ([facility]) [address] [place] [address] 81462 Monocytes (Bld) [#/Vol] 0.46 x10*3/uL Normal 0.10-1.00 [facility] Comment on above: Performed By: #### 5 7021-8 #### FELIPA LEWIS ([id number]) [facility] ([facility]) [address] [place] [address] 51824 Monocytes/100 WBC (Bld) 4.8 % Normal 2.0-10.0 [facility] Comment on above: Performed By: #### 5 7021-8 #### FELIPA LEWIS ([id number]) [facility] ([facility]) [address] [place] [address] 23925 Neutrophils (Bld) [#/Vol] 5.57 x10*3/uL Normal 1.20-7.70 [facility] Comment on above: Result Comment: Perc ent differential counts (%) should be interpreted in the context of the absolute cell counts (cells/uL). Performed By: #### 5 7021-8 #### FELIPA LEWIS ([id number]) [facility] ([facility]) [address] [place] [address] 56820 Neutrophils/100 WBC (Bld) 58.6 % Normal 40.0-80.0 [facility] Comment on above: Performed By: #### 5 7021-8 #### FELIPA LEWIS ([id number]) [facility] ([facility]) [address] [place] [address] 42195 Nucleated RBC/100 WBC (Bld) [Ratio] 0.0 /100 WBCs Normal 0.0-0.0 [facility] Comment on above: Performed By: #### 5 7021-8 #### FELIPA LEWIS ([id number]) [facility] ([facility]) [address] [place] [address] 15053 Platelets (Bld) [#/Vol] 236 x10*3/uL Normal 150-450 [facility] Comment on above: Performed By: #### 5 7021-8 #### FELIPA LEWIS ([id number]) [facility] ([facility]) [address] [place] [address] 19258 RBC (Bld) [#/Vol] 4.60 x10*6/uL Normal 4.00-5.20 [facility] Comment on above: Performed By: #### 5 7021-8 #### FELIPA LEWIS ([id number]) [facility] ([facility]) [address] [place] [address] 44242 WBC (Bld) [#/Vol] 9.5 x10*3/uL Normal 4.4-11.3 [facility] Comment on above: Performed By: #### 5 7021-8 #### FELIPA LEWIS ([id number]) [facility] ([facility]) [address] [place] [address] 71990 Calcidiolon 04-08-2024 25-hydroxyvitamin D3 [Mass/Vol] 24 ng/mL Low 30-100 [facility] Comment on above: Order Comment: Defic iency: < 20 ng/ml Insufficiency: 20-29 ng/ml Sufficiency: 30-100 ng/ml This assay accurately quantifies the sum of Vitamin D3, 25-Hydroxy and Vitamin D2,25-Hydroxy. Performed By: #### 1 989-3 #### FELIPA LEWIS ([id number]) [facility] ([facility]) [address] [place] [address] Cobalaminson 04-08-2024 Cobalamin (Vitamin B12) [Mass/Vol] 258 pg/mL Normal 211-911 [facility] Comment on above: Performed By: #### 2 132-9 #### FELIPA LEWIS ([id number]) [facility] ([facility]) [address] [place] [address] Comprehensive metabolic 2000 panelon 04-08-2024 Albumin BCP dye [Mass/Vol] 4.5 g/dL Normal 3.4-5.0 [facility] Comment on above: Performed By: #### 2 4323-8 #### FELIPA LEWIS ([id number]) [facility] ([facility]) [address] [place] [address] ALP [Catalytic activity/Vol] 92 U/L Normal 33-110 [facility] Comment on above: Performed By: #### 2 4323-8 #### FELIPA LEWIS ([id number]) [facility] ([facility]) [address] [place] [address] 16610 ALT With P-5'-P [Catalytic activity/Vol] 26 U/L Normal 7-45 [facility] Comment on above: Result Comment: Renetta ents treated with Sulfasalazine may generate falsely decreased results for ALT. Performed By: #### 2 4323-8 #### FELIPA LEWIS ([id number]) [facility] ([facility]) [address] [place] [address] 91997 Anion gap [Moles/Vol] 12 mmol/L Normal 10-20 [facility] Comment on above: Performed By: #### 2 4323-8 #### FELIPA LEWIS ([id number]) [facility] ([facility]) [address] [place] [address] 28202 AST With P-5'-P [Catalytic activity/Vol] 16 U/L Normal 9-39 [facility] Comment on above: Performed By: #### 2 4323-8 #### FELIPA LEWIS ([id number]) [facility] ([facility]) [address] [place] [address] Bilirubin [Mass/Vol] 0.8 mg/dL Normal 0.0-1.2 [facility] Comment on above: Performed By: #### 2 4323-8 #### FELIPA LEWIS ([id number]) [facility] ([facility]) [address] [place] [address] Calcium [Mass/Vol] 9.0 mg/dL Normal 8.6-10.3 [facility] Comment on above: Performed By: #### 2 4323-8 #### FELIPA LEWIS ([id number]) [facility] ([facility]) [address] [place] [address] 15353 Chloride [Moles/Vol] 101 mmol/L Normal 98-107 [facility] Comment on above: Performed By: #### 2 4323-8 #### FELIPA LEWIS ([id number]) [facility] ([facility]) [address] [place] [address] CO2 [Moles/Vol] 26 mmol/L Normal 21-32 [facility] Comment on above: Performed By: #### 2 4323-8 #### FELIPA LEWIS ([id number]) [facility] ([facility]) [address] [place] [address] Creatinine [Mass/Vol] 0.76 mg/dL Normal 0.50-1.05 [facility] Comment on above: Performed By: #### 2 4323-8 #### FELIPA LEWIS ([id number]) [facility] ([facility]) [facility] [place] [address] GFR/1.73 sq M.predicted MDRD (S/P/Bld) [Vol rate/Area] mL/min/{1.73_m2} Normal >60 [facility] Comment on above: Result Comment: Calc ulations of estimated GFR are performed using the 2020 CKD-EPI Study Refit equation without the race variable for the IDMS-Traceable creatinine methods. https://jasn.asnjournals.org/content/early/ASN.974028 1160 Performed By: #### 2 4323-8 #### FELIPA LEWIS ([id number]) [facility] ([facility]) [address] [place] [address] 73411 Glucose [Mass/Vol] 265 mg/dL High 74-99 [facility] Comment on above: Performed By: #### 2 4323-8 #### FELIPA LEWIS ([id number]) [facility] ([facility]) [address] [place] [address] 92252 Potassium [Moles/Vol] 3.8 mmol/L Normal 3.5-5.3 [facility] Comment on above: Performed By: #### 2 4323-8 #### FELIPA LEWIS ([id number]) [facility] ([facility]) [address] [place] [address] 67086 Protein [Mass/Vol] 6.8 g/dL Normal 6.4-8.2 [facility] Comment on above: Performed By: #### 2 4323-8 #### FELIPA LEWIS ([id number]) [facility] ([facility]) [address] [place] [address] 65542 Sodium [Moles/Vol] 135 mmol/L Low 136-145 [facility] Comment on above: Performed By: #### 2 4323-8 #### FELIPA LEWIS ([id number]) [facility] ([facility]) [address] [place] [address] 79245 Urea nitrogen [Mass/Vol] 19 mg/dL Normal 6-23 [facility] Comment on above: Performed By: #### 2 4323-8 #### FELIPA LEWIS ([id number]) [facility] ([facility]) [address] [place] [address] 24721 HbA1c (Bld) [Mass fraction]o n 04-08-2024 Average glucose Estimated from glycated hemoglobin (Bld) [Mass/Vol] 134 mg/dL Normal Not Established [facility] Comment on above: Order Comment: Diagn osis of Diabetes-Adults Non-Diabetic: < or = 5.6% Increased risk for developing diabetes: 5.7-6.4% Diagnostic of diabetes: > or = 6.5% Performed By: #### 4 548-4 #### FELIPA LEWIS ([id number]) [facility] ([facility]) [address] [place] [address] 75073 Hemoglobin A1c/Hemoglobin.to flash 04-08-2024 HbA1c (Bld) [Mass fraction] 6.3 % High see below [facility] Comment on above: Order Comment: Diagn osis of Diabetes-Adults Non-Diabetic: < or = 5.6% Increased risk for developing diabetes: 5.7-6.4% Diagnostic of diabetes: > or = 6.5% Performed By: #### 4 548-4 #### FELIPA LEWIS ([id number]) [facility] ([facility]) [address] [place] [address] 77809 Iron and Iron binding capaci ty panelon 04-08-2024 Iron [Mass/Vol] 68 ug/dL Normal 35-150 [facility] Comment on above: Performed By: #### 5 0190-8 #### FELIPA LEWIS ([id number]) [facility] ([facility]) [address] [place] [address] 61863 Iron binding capacity [Mass/Vol] 432 ug/dL Normal 240-445 [facility] Comment on above: Performed By: #### 5 0190-8 #### FELIPA LEWIS ([id number]) [facility] ([facility]) [address] [place] [address] 14740 Iron binding capacity.unsaturated [Mass/Vol] 364 ug/dL Normal 110-370 [facility] Comment on above: Performed By: #### 5 0190-8 #### FELIPA LEWIS ([id number]) [facility] ([facility]) [address] [place] [address] 39909 Iron saturation [Mass fraction] 16 % Low 25-45 [facility] Comment on above: Performed By: #### 5 0190-8 #### FELIPA LEWIS ([id number]) [facility] ([facility]) [address] [place] [address] 32425 Lipid 1996 panelon Cholesterol [Mass/Vol] 190 mg/dL Normal 0-199 [facility] Comment on above: Result Comment: Age Desirable Borderline High High 0-19 Y 0 - 169 170 - 199 >/= 200 20-24 Y 0 - 189 190 - 224 >/= 225 >24 Y 0 - 199 200 - 239 >/= 240 All ranges are based on fasting samples. Specific therapeutic targets will vary based on patient-specific cardiac risk. Pediatric guidelines reference:Pediatrics 2011, 128(S5).Adult guidelines reference: NCEP ATPIII Guidelines,SAMARIA 2001, 258:2486-97 Venipuncture immediately after or during the administration of Metamizole may lead to falsely low results. Testing should be performed immediately prior to Metamizole dosing. Performed By: #### 2 4331-1 #### FELIPA LEWIS ([id number]) [facility] ([facility]) [address] [place] [address] 16038 Cholesterol in HDL [Mass/Vol] 41.0 mg/dL Normal [facility] Comment on above: Result Comment: Age Very Low Low Normal High 0-19 Y < 35 < 40 40-45 ---- 20-24 Y ---- < 40 >45 ---- >24 Y ---- < 40 40-60 >60 Performed By: #### 2 4331-1 #### FELIPA LEWIS ([id number]) [facility] ([facility]) [address] [place] [address] 26970 Cholesterol in LDL [Mass/Vol] 73 mg/dL Normal <=99 [facility] Comment on above: Result Comment: Near Borderline AGE Desirable Optimal High High Very High 0-19 Y 0 - 109 --- 110-129 >/= 130 ---- 20-24 Y 0 - 119 --- 120-159 >/= 160 ---- >24 Y 0 - 99 100-129 130-159 160-189 >/=190 Performed By: #### 2 4331-1 #### FELIPA LEWIS ([id number]) [facility] ([facility]) [address] [place] [address] 19565 Cholesterol in VLDL [Mass/Vol] 76 mg/dL High 0-40 [facility] Comment on above: Performed By: #### 2 4331-1 #### FELIPA LEWIS ([id number]) [facility] ([facility]) [address] [place] [address] 57271 CHOLESTEROL/HDL RATIO 4.6 Normal [facility] Comment on above: Result Comment: Ref Values Desirable < 3.4 High Risk > 5.0 Performed By: #### 2 4331-1 #### FELIPA LEWIS ([id number]) [facility] ([facility]) [address] [place] [address] 79401 NON HDL CHOLESTEROL 149 mg/dL Normal 0-149 [facility] Comment on above: Result Comment: Age Desirable Borderline High High Very High 0-19 Y 0 - 119 120 - 144 >/= 145 >/= 160 20-24 Y 0 - 149 150 - 189 >/= 190 ---- >24 Y 30 mg/dL above LDL Cholesterol goal Performed By: #### 2 4331-1 #### FELIPA LEWIS ([id number]) [facility] ([facility]) [address] [place], [place] [id number] Triglyceride [Mass/Vol] 382 mg/dL High 0-149 [facility] Comment on above: Result Comment: Age Desirable Borderline High High Very High 0 D-90 D 19 - 174 ---- ---- ---- 91 D- 9 Y 0 - 74 75 - 99 >/= 100 ---- 10-19 Y 0 - 89 90 - 129 >/= 130 ---- 20-24 Y 0 - 114 115 - 149 >/= 150 ---- >24 Y 0 - 149 150 - 199 200- 499 >/= 500 Venipuncture immediately after or during the administration of Metamizole may lead to falsely low results. Testing should be performed immediately prior to Metamizole dosing. Performed By: #### 2 4331-1 #### FELIPA LEWIS ([id number]) [facility] ([facility]) [address] [place] [address] 85541 TSH WITH REFLEX TO FREE T4 I F ABNORMALon 04-08-2024 TSH Qn 2.86 m[IU]/L Normal 0.44-3.98 [facility] Comment on above: Order Comment: TSH t esting is performed using different testing methodology at [facility] than at other [facility]. Direct result comparisons should only be made within the same method. Performed By: #### T CAMILLE #### FELIPA LEWIS ([id number]) [facility] ([facility]) [address] [place] [address] CBC W Auto Differential pane l (Bld)on 04-06-2024 Basophils (Bld) [#/Vol] 0.05 10*3/uL [facility] Basophils/100 WBC (Bld) 0.5 % 0.0 - 2.0 % [facility] Eosinophils (Bld) [#/Vol] 0.04 10*3/uL [facility] Eosinophils/100 WBC (Bld) 0.4 % 0.0 - 6.0 % [facility] Erythrocyte distribution width (RBC) [Ratio] 15.1 % High 11.5 - 14.5 % [facility] Hematocrit (Bld) [Volume fraction] 41.4 % 36.0 - 46.0 % [facility] Hemoglobin (Bld) [Mass/Vol] 14.4 g/dL 12.0 - 16.0 g/dL [facility] Immature granulocytes (Bld) [#/Vol] 0.08 10*3/uL [facility] Immature granulocytes/100 WBC (Bld) 0.9 % 0.0 - 0.9 % [facility] Comment on above: Immature Granulocyte Count (IG) includes promyelocytes, myelocytes and metamyelocytes but does not include bands. Percent differential counts (%) should be interpreted in the context of the absolute cell counts (cells/UL). Interpretation and review of laboratory results Abnormal [facility] Lymphocytes (Bld) [#/Vol] 2.11 10*3/uL [facility] Lymphocytes/100 WBC (Bld) 22.5 % 13.0 - 44.0 % [facility] MCH (RBC) [Entitic mass] 30.7 pg 26.0 - 34.0 pg [facility] MCHC (RBC) [Mass/Vol] 34.8 g/dL 32.0 - 36.0 g/dL [facility] MCV (RBC) [Entitic vol] 88 fL 80 - 100 fL [facility] Monocytes (Bld) [#/Vol] 0.58 10*3/uL [facility] Monocytes/100 WBC (Bld) 6.2 % 2.0 - 10.0 % [facility] Neutrophils (Bld) [#/Vol] 6.52 10*3/uL [facility] Comment on above: Percent differential counts (%) should be interpreted in the context of the absolute cell counts (cells/uL). Neutrophils/100 WBC (Bld) 69.5 % 40.0 - 80.0 % [facility] Nucleated RBC/100 WBC (Bld) [Ratio] 0.0 % [facility] Platelets (Bld) [#/Vol] 228 10*3/uL [facility] RBC (Bld) [#/Vol] 4.69 10*6/uL [facility] WBC (Bld) [#/Vol] 9.4 10*3/uL [facility] CT Chest W contrast IV and C T angiogram Pulmonary arteries for pulmonary embolus W contrast Wing 04-06-2024 1. No acute intrathoracic abnormality. 2. Hepatosplenomegaly with probable hepatic steatosis. 3. Stable region of presumed linear scarring of the lingula. Signed by: Markos Reynolds 04/06/2024 4:56 PM Dictation workstation: [id number] [facility] MMODAL Interpreted By: Markos Cadena, STUDY: CT ANGIO CHEST FOR PULMONARY EMBOLISM; 04/06/2024 4:16 pm INDICATION: Signs/Symptoms:chest pain. COMPARISON: Chest CT 09/24/2022 ACCESSION NUMBER(S): [id number] ORDERING CLINICIAN: WOLF MARIN TECHNIQUE: Helical data acquisition of the chest was obtained after the intravenous administration of of contrast. Images were reformatted in coronal and sagittal planes. Axial and coronal MIP images were created and reviewed. FINDINGS: POTENTIAL LIMITATIONS OF THE STUDY: None HEART AND VESSELS: No discrete filling defects within the adequately visualized portions of main pulmonary artery or its branches. Main pulmonary artery and its branches are unremarkable in caliber. The thoracic aorta is unremarkable with respect to course, caliber, and contour. No coronary artery calcifications are seen.The study is not optimized for evaluation of coronary arteries. The cardiac chambers are not enlarged. No evidence of pericardial effusion. MEDIASTINUM AND AUDREY, LOWER NECK AND AXILLA: The visualized thyroid gland is within normal limits. No evidence of thoracic lymphadenopathy by CT criteria.Subcentimeter mediastinal lymph nodes are present, nonspecific. Esophagus appears within normal limits as seen. LUNGS AND AIRWAYS: The trachea and central airways are patent. No endobronchial lesion. No consolidation, pneumothorax, or effusion. Bilateral lower lobe hazy airspace opacities likely reflecting atelectatic change. There is similar appearing linear scar-like opacification of the lingula likely representing region of chronic scarring and unchanged since prior comparison examination UPPER ABDOMEN: Hepatomegaly, measuring up to at least 18.9 cm in craniocaudal dimension. Splenomegaly measuring up to 14 cm in craniocaudal dimension. Asymmetric low-attenuation of the liver compared to the spleen compatible with likely hepatic steatosis. CHEST WALL AND OSSEOUS STRUCTURES: No acute osseous abnormality.Multilevel presumed chronic or degenerative endplate changes throughout the imaged spine. MMODAL Markos Reynolds MD - 04/06/2024 Interpreted By: Markos Reynolds, STUDY: CT ANGIO CHEST FOR PULMONARY EMBOLISM; 04/06/2024 4:16 pm INDICATION: Signs/Symptoms:chest pain. COMPARISON: Chest CT 09/24/2022 ACCESSION NUMBER(S): [id number] ORDERING CLINICIAN: WOLF MARIN TECHNIQUE: Helical data acquisition of the chest was obtained after the intravenous administration of of contrast. Images were reformatted in coronal and sagittal planes. Axial and coronal MIP images were created and reviewed. FINDINGS: POTENTIAL LIMITATIONS OF THE STUDY: None HEART AND VESSELS: No discrete filling defects within the adequately visualized portions of main pulmonary artery or its branches. Main pulmonary artery and its branches are unremarkable in caliber. The thoracic aorta is unremarkable with respect to course, caliber, and contour. No coronary artery calcifications are seen.The study is not optimized for evaluation of coronary arteries. The cardiac chambers are not enlarged. No evidence of pericardial effusion. MEDIASTINUM AND AUDREY, LOWER NECK AND AXILLA: The visualized thyroid gland is within normal limits. No evidence of thoracic lymphadenopathy by CT criteria.Subcentimeter mediastinal lymph nodes are present, nonspecific. Esophagus appears within normal limits as seen. LUNGS AND AIRWAYS: The trachea and central airways are patent. No endobronchial lesion. No consolidation, pneumothorax, or effusion. Bilateral lower lobe hazy airspace opacities likely reflecting atelectatic change. There is similar appearing linear scar-like opacification of the lingula likely representing region of chronic scarring and unchanged since prior comparison examination UPPER ABDOMEN: Hepatomegaly, measuring up to at least 18.9 cm in craniocaudal dimension. Splenomegaly measuring up to 14 cm in craniocaudal dimension. Asymmetric low-attenuation of the liver compared to the spleen compatible with likely hepatic steatosis. CHEST WALL AND OSSEOUS STRUCTURES: No acute osseous abnormality.Multilevel presumed chronic or degenerative endplate changes throughout the imaged spine. IMPRESSION: 1. No acute intrathoracic abnormality. 2. Hepatosplenomegaly with probable hepatic steatosis. 3. Stable region of presumed linear scarring of the lingula. Signed by: Markos Reynolds 04/06/2024 4:56 PM Dictation workstation: [id number] [facility] Work Phone: Radiology Study observation (narrative) [facility] Work Phone: CT Chest W contrast IV and C T angiogram Pulmonary arteries for pulmonary embolus W contrast IVOrdered By: Markos Reynolds on 04-06-2024 [facility] Work Phone: Comprehensive metabolic 2000 panelon 04-06-2024 Albumin BCP dye [Mass/Vol] 4.5 g/dL 3.4 - 5.0 g/dL [facility] ALP [Catalytic activity/Vol] 103 U/L 33 - 110 U/L [facility] ALT With P-5'-P [Catalytic activity/Vol] 35 U/L 7 - 45 U/L [facility] Comment on above: Patients treated wit h Sulfasalazine may generate falsely decreased results for ALT. Anion gap [Moles/Vol] 16 mmol/L 10 - 2 0 mmol/L [facility] AST With P-5'-P [Catalytic activity/Vol] 25 U/L 9 - 39 U/L [facility] Bilirubin [Mass/Vol] 1.2 mg/dL 0.0 - 1 .2 mg/dL [facility] Calcium [Mass/Vol] 9.6 mg/dL 8.6 - 10. 3 mg/dL [facility] Chloride [Moles/Vol] 102 mmol/L 98 - 10 7 mmol/L [facility] CO2 [Moles/Vol] 20 mmol/L Low 21 - 32 mmol/L [facility] Creatinine [Mass/Vol] 0.78 mg/dL 0.50 - 1.05 mg/dL [facility] eGFR - PINF [facility] Comment on above: Calculations of kayleigh mated GFR are performed using the 2020 CKD-EPI Study Refit equation without the race variable for the IDMS-Traceable creatinine methods. https://jasn.asnjournals.org/content/early/ASN.131764 9636 Glucose [Mass/Vol] 271 mg/dL High 74 - 99 mg/dL [facility] Interpretation and review of laboratory results Abnormal [facility] Potassium [Moles/Vol] 3.6 mmol/L 3.5 - 5.3 mmol/L [facility] Protein [Mass/Vol] 7.2 g/dL 6.4 - 8.2 g/dL [facility] Sodium [Moles/Vol] 134 mmol/L Low 136 - 145 mmol/L [facility] Urea nitrogen [Mass/Vol] 17 mg/dL 6 - 23 mg/dL [facility] D-Dimer, VTE Exclusionon Fibrin D-dimer FEU (PPP) [Mass/Vol] 653 High NINF [facility] ECG 12-LEADon 04-06-2024 ECG 12-LEAD Ventricular Rate 118 Atrial Rate 118 P-R Interval 142 QRS Duration 72 Q-T Interval 328 QTC Calculation(Bazett) 459 P [place] 25 R [place] -16 T [place] 46 QRS Count 20 Q Onset 220 P Onset 149 P Offset 195 T Offset 384 QTC Fredericia 411 Diagnosis Sinus tachycardia Minimal voltage criteria for LVH, may be normal variant ( R in aVL ) Inferior infarct (cited on or before 13-FEB-2024) Anterior infarct (cited on or before 23-DEC-2023) Abnormal ECG When compared with ECG of 06-APR-2024 14:04, (unconfirmed) No significant change was found See ED provider note for full interpretation and clinical correlation Confirmed by Freedom Cordon ([id number]) on 04/13/2024 8:08:46 PM Normal [facility] ECG 12-LEAD Ventricular Rate 121 Atrial Rate 121 P-R Interval 130 QRS Duration 78 Q-T Interval 310 QTC Calculation(Bazett) 440 P [place] 19 R [place] -12 T [place] 35 QRS Count 20 Q Onset 222 P Onset 157 P Offset 200 T Offset 377 QTC Fredericia 391 Diagnosis Sinus tachycardia Minimal voltage criteria for LVH, may be normal variant ( R in aVL ) Inferior infarct , age undetermined Anterior infarct (cited on or before 23-DEC-2023) Abnormal ECG When compared with ECG of 13-FEB-2024 15:01, Questionable change in initial forces of Lateral leads See ED provider note for full interpretation and clinical correlation Confirmed by Freedom Cordon ([id number]) on 04/13/2024 1:42:31 PM Normal [facility] Fibrin D-dimer FEU (PPP) [Ma ss/Vol]on 04-06-2024 Interpretation and review of laboratory results Abnormal [facility] The VTE Exclusion D-Dimer assay is reported in ng/mL Fibrinogen Equivalent Units (FEU). Per seafood specialist's instructions for use, a value of less than 500 ng/mL (FEU) may help to exclude DVT or PE in outpatients when the assay is used with a clinical pretest probability assessment.(AEMR must utilize and document eCalc 'Wells Score Deep Vein Thrombosis Risk' for DVT exclusion only. Emergency Department should utilize Guidelines for Emergency Department Use of the VTE Exclusion D-Dimer and Clinical Pretest probability assessment model for DVT or PE exclusion.) [facility] Glucose Test strip manual (B ld) [Mass/Vol]on 04-06-2024 Glucose [Mass/Vol] 288 mg/dL High 74 - 99 mg/dL [facility] Interpretation and review of laboratory results Abnormal [facility] Magnesiumon 04-06-2024 Magnesium [Mass/Vol] 1.96 mg/dL 1.60 - 2.40 mg/dL [facility] Magnesium [Mass/Vol]on 04-06 Interpretation and review of laboratory results Normal [facility] No Panel Informationon 04-06 [facility] Tropinin I.cardiac panel Hig h sensitivity methodon 04-06-2024 Interpretation and review of laboratory results Normal [facility] Less than 99th percentile of normal range cutoff- Female and children under 18 years old <14 ng/L; Male <21 ng/L: Negative Repeat testing should be performed if clinically indicated. Female and children under 18 years old 14-50 ng/L; Male 21-50 ng/L: Consistent with possible cardiac damage and possible increased clinical risk. Serial measurements may help to assess extent of myocardial damage. >50 ng/L: Consistent with cardiac damage, increased clinical risk and myocardial infarction. Serial measurements may help assess extent of myocardial damage. NOTE: Children less than 1 year old may have higher baseline troponin levels and results should be interpreted in conjunction with the overall clinical context. NOTE: Troponin I testing is performed using a different testing methodology at [facility] than at other [facility]. Direct result comparisons should only be made within the same method. [facility] Interpretation and review of laboratory results Normal [facility] Less than 99th percentile of normal range cutoff- Female and children under 18 years old <14 ng/L; Male <21 ng/L: Negative Repeat testing should be performed if clinically indicated. Female and children under 18 years old 14-50 ng/L; Male 21-50 ng/L: Consistent with possible cardiac damage and possible increased clinical risk. Serial measurements may help to assess extent of myocardial damage. >50 ng/L: Consistent with cardiac damage, increased clinical risk and myocardial infarction. Serial measurements may help assess extent of myocardial damage. NOTE: Children less than 1 year old may have higher baseline troponin levels and results should be interpreted in conjunction with the overall clinical context. NOTE: Troponin I testing is performed using a different testing methodology at [facility] than at other [facility]. Direct result comparisons should only be made within the same method. [facility] Troponin I, High Sensitivity , Initialon 04-06-2024 Tropinin I.cardiac panel High sensitivity method ng/L 0 - 13 ng/L [facility] Troponin, High Sensitivity, 1 Houron 04-06-2024 Tropinin I.cardiac panel High sensitivity method ng/L 0 - 13 ng/L [facility] XR Chest Single viewon 04-06 1. No evidence of ac [place] cardiopulmonary process. MACRO: None. Signed by: Nnamdi Mcmanus 04/06/2024 2:25 PM Dictation workstation: [id number] MMODAL Interpreted By: Nnamdi Mcmanus, STUDY: XR CHEST 1 VIEW; 04/06/2024 2:17 pm INDICATION: Signs/Symptoms:Chest Pain. COMPARISON: 02/13/2024. ACCESSION NUMBER(S): [id number] ORDERING CLINICIAN: WOLF MARIN FINDINGS: CARDIOMEDIASTINAL SILHOUETTE: Cardiomediastinal silhouette is normal in size and configuration. LUNGS: Lungs are clear. No pleural effusion or pneumothorax. ABDOMEN: No remarkable upper abdominal findings. BONES: No acute osseous changes. MMODAL Nnamdi Mcmanus MD - 04/06/2024 Interpreted By: Nnamdi Mcmanus, STUDY: XR CHEST 1 VIEW; 04/06/2024 2:17 pm INDICATION: Signs/Symptoms:Chest Pain. COMPARISON: 02/13/2024. ACCESSION NUMBER(S): [id number] ORDERING CLINICIAN: WOLF MARIN FINDINGS: CARDIOMEDIASTINAL SILHOUETTE: Cardiomediastinal silhouette is normal in size and configuration. LUNGS: Lungs are clear. No pleural effusion or pneumothorax. ABDOMEN: No remarkable upper abdominal findings. BONES: No acute osseous changes. IMPRESSION: 1. No evidence of acute cardiopulmonary process. MACRO: None. Signed by: Nnamdi Mcmanus 04/06/2024 2:25 PM Dictation workstation: [id number] [facility] Work Phone: Radiology Study observation (narrative) [facility] Work Phone: XR Chest Single viewOrdered By: Nnamdi Mcmanus on 04-06-2024 [facility] Work Phone: Nicole 03-14-2024 TIKA Telephone ([facility]) REINALDO WARREN ([id number]) 1985 F Date Time Provider Department 03/14/24 JEANETTE MILLER [facility] During your visit today, we recorded the following information about you: Agnieszka Hughes 03/14/2024 10:50 AM Signed Spoke to patient to reschedule her appointment. She stated she wanted to speak to you about ADHD because she is having many issues lately. Patient wouldn't give me much more information when asked. She did ask for a return call. Phone number:[phone] Thank you Agnieszka Hughes March 14, 2024 10:50 AM Matt Bradshaw LPN 03/14/2024 11:07 AM Signed Left VM on patient phone for call back or [facility] message regarding ADHD symptoms. ADORE Sandoval Michele, LPN 03/14/2024 2:31 PM Signed Patient reports I need something to calm me down Mostly this is happening at work, if I am in the middle of something and I get sidetracked by something else, I get very upset and freak out I am more on edge and fidgety Nurse informed was gathering information for next appointment w/provider. Patient understood. ADORE Sandoval Laurel, APRN.LOR 03/14/2024 2:42 PM Signed Noted, thanks. Will plan to discuss concerns further at upcoming visit. These are continued concerns that she has had. Likely related to anxiety so will discuss about as needed option for her to utilize during work. Allergies As of Date: 03/14/2024 Noted Allergy Reaction AUGMENTIN (AMOXICILLIN-POT CLAVUL*12/16/2010 1 - Mental Status Change SHELLFISH 12/12/2010 7 - Swelling TYLENOL #3 (CODEINE) 08/06/2007 7 - Swelling VENOM-HONEY BEE 12/28/2018 7 - Swelling Date Reviewed: 01/30/2024 Reviewed by: Jeanette Miller APRN.PUBLIC SAFETY TELECOMMUNICATOR - Fully Assessed Reason for Visit: Appointment [[id number]] Prescriptions as of 03/14/2024 - venlafaxine ER (EFFEXOR XR) 150 mg 24 hr capsule Take 1 capsule by mouth once daily. with 37.5 mg capsule for a total of 187.5 mg daily - venlafaxine ER (EFFEXOR XR) 37.5 mg 24 hr capsule Take 1 capsule by mouth once daily. with 75 mg capsule for a total of 187.5 mg daily - lisinopril (ZESTRIL) 40 mg tablet Take 1 tablet by mouth once daily. - mirtazapine (REMERON) 15 mg tablet Take 1 tablet by mouth daily at bedtime. - rosuvastatin (CRESTOR) 5 mg tablet take 1 tablet by mouth everyday at bedtime - linaclotide (LINZESS) 145 mcg capsule Take by mouth. - cyclobenzaprine (FLEXERIL) 10 mg tablet Take 1 tablet by mouth three times daily as needed for muscle spasm. Problem List As Of Date 03/14/2024 Noted Resolved Adjustment disorder with depressed mood [F43.21]10/06/2008 Asthma, mild intermittent [J45.20] 01/27/2009 Glycosuria [R81] 07/06/2009 07/18/2013 Closed fracture of metacarpal bone(s), site uns*01/05/2010 02/03/2013 Hemorrhoids [K64.9] 05/19/2011 02/03/2013 Irregular menstrual bleeding [N92.6] 06/13/2012 11/18/2012 Postcoital bleeding [N93.0] 06/13/2012 09/26/2012 Amenorrhea [N91.2] 10/15/2012 02/03/2013 History of [Z98.891] 10/31/2012 07/18/2013 History of gestational diabetes [Z86.32] 10/31/2012 10/13/2020 History of hypertension [Z86.79] 10/31/2012 08/14/2019 Reading difficulty [F81.0] 10/31/2012 08/14/2019 Family history of defects [Z82.79] 10/31/2012 08/14/2019 History of anesthesia complications [Z87.898] 10/31/2012 07/18/2013 Rubella non-immune status, antepartum [O09.899,*11/01/2012 07/18/2013 LOC (loss of consciousness) [R40.20] 02/03/2013 07/18/2013 Abnormal glucose complicating [O99.81*03/16/2013 07/18/2013 Nipple discharge [N64.52] 02/19/2016 08/14/2019 Lump or mass in breast [N63.0] 02/19/2016 08/14/2019 Umbilical hernia [K42.9] 06/07/2017 08/14/2019 Intramural uterine fibroid [D25.1] 08/14/2019 Hypertension, essential [I10] 04/02/2020 Intermittent alternating 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] 05/31/2020 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] 05/31/2020 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] 05/31/2020 Myopic astigmatism of both eyes [H52.203, H52.1*05/31/2020 Post-traumatic stress disorder, acute [F43.11] 07/01/2020 Uncontrolled type 2 diabetes mellitus (HCC) [IM*10/13/2020 Seizures (HCC) [R56.9] 10/13/2020 Dizziness [R42] 08/05/2021 Syncope [R55] 08/05/2021 Hypotension [I95.9] 08/05/2021 AMS (altered mental status) [R41.82] 08/20/2022 08/23/2022 Acute vaginitis [N76.0] 02/05/2022 History of cerebrovascular accident [Z86.73] 09/27/2022 History of syncope [Z87.898] 09/27/2022 Hyperglycemia [R73.9] 02/05/2022 Hypokalemia [E87.6] 09/27/2022 Mass of shoulder region [R22.30] 09/27/2022 Nausea, vomiting, and diarrhea [R11.2, R19.7] 09/21/2021 Puncture wound of toe [S91.139A] 09/27/2022 Severe acute respiratory syndrome coronavirus 2*02/12/2021 Shortness of breath [R06.02] 09/27/2022 Simple partial seizure, consciousness not impai*09/27/2022 Sinus bradycardia [R00.1] 09/27/2022 Spasm of cervical paraspinous muscle [M62.838] 09/08 (more content not included)... [facility] CBC W Auto Differential pane l (Bld)on 02-13-2024 Basophils (Bld) [#/Vol] 0.03 10*3/uL [facility] Basophils/100 WBC (Bld) 0.4 % 0.0 - 2.0 % [facility] Eosinophils (Bld) [#/Vol] 0.11 10*3/uL [facility] Eosinophils/100 WBC (Bld) 1.6 % 0.0 - 6.0 % [facility] Erythrocyte distribution width (RBC) [Ratio] 13.9 % 11.5 - 14.5 % [facility] Hematocrit (Bld) [Volume fraction] 37.3 % 36.0 - 46.0 % [facility] Hemoglobin (Bld) [Mass/Vol] 13.3 g/dL 12.0 - 16.0 g/dL [facility] Immature granulocytes (Bld) [#/Vol] 0.05 10*3/uL [facility] Immature granulocytes/100 WBC (Bld) 0.7 % 0.0 - 0.9 % [facility] Comment on above: Immature Granulocyte Count (IG) includes promyelocytes, myelocytes and metamyelocytes but does not include bands. Percent differential counts (%) should be interpreted in the context of the absolute cell counts (cells/UL). Lymphocytes (Bld) [#/Vol] 1.91 10*3/uL [facility] Lymphocytes/100 WBC (Bld) 27.8 % 13.0 - 44.0 % [facility] MCH (RBC) [Entitic mass] 31.7 pg 26.0 - 34.0 pg [facility] MCHC (RBC) [Mass/Vol] 35.7 g/dL 32.0 - 36.0 g/dL [facility] MCV (RBC) [Entitic vol] 89 fL 80 - 100 fL [facility] Monocytes (Bld) [#/Vol] 0.37 10*3/uL [facility] Monocytes/100 WBC (Bld) 5.4 % 2.0 - 10.0 % [facility] Neutrophils (Bld) [#/Vol] 4.40 10*3/uL [facility] Comment on above: Percent differential counts (%) should be interpreted in the context of the absolute cell counts (cells/uL). Neutrophils/100 WBC (Bld) 64.1 % 40.0 - 80.0 % [facility] Nucleated RBC/100 WBC (Bld) [Ratio] 0.0 % [facility] Platelets (Bld) [#/Vol] 256 10*3/uL [facility] RBC (Bld) [#/Vol] 4.20 10*6/uL [facility] WBC (Bld) [#/Vol] 6.9 10*3/uL [facility] Comprehensive metabolic 2000 panelon 02-13-2024 Albumin BCP dye [Mass/Vol] 4.3 g/dL 3.4 - 5.0 g/dL [facility] ALP [Catalytic activity/Vol] 72 U/L 33 - 110 U/L [facility] ALT With P-5'-P [Catalytic activity/Vol] 16 U/L 7 - 45 U/L [facility] Comment on above: Patients treated wit h Sulfasalazine may generate falsely decreased results for ALT. Anion gap [Moles/Vol] 12 mmol/L 10 - 2 0 mmol/L [facility] AST With P-5'-P [Catalytic activity/Vol] 17 U/L 9 - 39 U/L [facility] Bilirubin [Mass/Vol] 0.9 mg/dL 0.0 - 1 .2 mg/dL [facility] Calcium [Mass/Vol] 9.1 mg/dL 8.6 - 10. 3 mg/dL [facility] Chloride [Moles/Vol] 104 mmol/L 98 - 10 7 mmol/L [facility] CO2 [Moles/Vol] 25 mmol/L 21 - 32 mmol/L [facility] Creatinine [Mass/Vol] 0.61 mg/dL 0.50 - 1.05 mg/dL [facility] eGFR - PINF [facility] Comment on above: Calculations of kayleigh mated GFR are performed using the 2020 CKD-EPI Study Refit equation without the race variable for the IDMS-Traceable creatinine methods. https://jasn.asnjournals.org/content//ASN.326765 7468 Glucose [Mass/Vol] 184 mg/dL High 74 - 99 mg/dL [facility] Interpretation and review of laboratory results Abnormal [facility] Potassium [Moles/Vol] 3.8 mmol/L 3.5 - 5.3 mmol/L [facility] Protein [Mass/Vol] 7.0 g/dL 6.4 - 8.2 g/dL [facility] Sodium [Moles/Vol] 137 mmol/L 136 - 145 mmol/L [facility] Urea nitrogen [Mass/Vol] 14 mg/dL 6 - 23 mg/dL [facility] ECG 12-LEADon 02-13-2024 ECG 12-LEAD Ventricular Rate 89 Atrial Rate 89 P-R Interval 152 QRS Duration 76 Q-T Interval 352 QTC Calculation(Bazett) 428 P [place] 18 R [place] -14 T [place] 11 QRS Count 15 Q Onset 220 P Onset 144 P Offset 190 T Offset 396 QTC Fredericia 401 Diagnosis Normal sinus rhythm Minimal voltage criteria for LVH, may be normal variant ( R in aVL ) Anterolateral infarct (cited on or before 23-DEC-2023) Abnormal ECG When compared with ECG of 23-DEC-2023 17:27, Nonspecific T wave abnormality no longer evident in Lateral leads See ED provider note for full interpretation and clinical correlation Confirmed by Freedom Hein ([id number]) on 02/16/2024 5:34:15 PM Normal [facility] Glucose Test strip manual (B ld) [Mass/Vol]on 02-13-2024 Glucose [Mass/Vol] 165 mg/dL High 74 - 99 mg/dL [facility] Interpretation and review of laboratory results Abnormal [facility] Magnesiumon 02-13-2024 Magnesium [Mass/Vol] 1.85 mg/dL 1.60 - 2.40 mg/dL [facility] Magnesium [Mass/Vol]on 02-12 Interpretation and review of laboratory results Normal [facility] Tropinin I.cardiac panel Hig h sensitivity methodon 02-13-2024 Interpretation and review of laboratory results Normal [facility] Less than 99th percentile of normal range cutoff- Female and children under 18 years old <14 ng/L; Male <21 ng/L: Negative Repeat testing should be performed if clinically indicated. Female and children under 18 years old 14-50 ng/L; Male 21-50 ng/L: Consistent with possible cardiac damage and possible increased clinical risk. Serial measurements may help to assess extent of myocardial damage. >50 ng/L: Consistent with cardiac damage, increased clinical risk and myocardial infarction. Serial measurements may help assess extent of myocardial damage. NOTE: Children less than 1 year old may have higher baseline troponin levels and results should be interpreted in conjunction with the overall clinical context. NOTE: Troponin I testing is performed using a different testing methodology at [facility] than at other [facility]. Direct result comparisons should only be made within the same method. [facility] Troponin I, High Sensitivity on 02-13-2024 Tropinin I.cardiac panel High sensitivity method ng/L 0 - 13 ng/L [facility] Urinalysis complete W Reflex Culture panel (U)on 02-13-2024 Appearance (U) Clear Clear [facility] Bilirubin (U) [Mass/Vol] Negative NEGATIVE [facility] Color (U) Yellow Straw, Yellow [facility] Epithelial cells.squamous Auto (Urine sed) [#/Area] 1-9 (SPARSE) Reference range not established. /HPF [facility] Glucose Auto test strip (U) [Mass/Vol] >=500 (3+) Abnormal NEGATIVE mg/dL [facility] Interpretation and review of laboratory results Abnormal [facility] Ketones (U) [Mass/Vol] 5 (TRACE) Abnormal NEGATIVE mg/dL [facility] Leukocyte esterase Auto test strip Ql (U) Negative NEGATIVE [facility] Nitrite Auto test strip Ql (U) Negative NEGATIVE [facility] pH (U) 5.0 [pH] 5.0, 5.5, 6.0, 6.5, 7.0, 7.5, 8.0 [facility] Protein (U) [Mass/Vol] Negative NEGATIVE mg/dL [facility] RBC (U) [#/Vol] MODERATE (2+) Abnormal NEGATIVE [facility] RBC Auto (Urine sed) [#/Area] 1-2 NONE, 1-2, 3-5 /HPF [facility] Specific gravity (U) [Rel density] 1.029 1.005 - 1.035 [facility] Urobilinogen (U) [Mass/Vol] mg/dL NINF - 2.0 mg/dL [facility] WBC Auto (Urine sed) [#/Area] 1-5 1-5, NONE /HPF [facility] XR Chest Single viewon 02-12 Allowing for the aforementioned limitation, unremarkable chest. Signed by: Josué Hodgson 02/13/2024 3:21 PM Dictation workstation: [id number] MMODAL Interpreted By: Josué Hodgson, STUDY: XR CHEST 1 VIEW; 02/13/2024 3:16 pm INDICATION: Signs/Symptoms:presynco pe COMPARISON: December 2023 ACCESSION NUMBER(S): [id number] ORDERING CLINICIAN: WOLF MARIN FINDINGS: The study is limited due to rotation and poor inspiratory effort, with resultant crowding of the pulmonary vasculature. The cardiomediastinal silhouette is within normal limits for the technique. There is no pneumothorax, confluent infiltrates or significant effusion. The osseous structures are unremarkable. MMODAL Josué Hodgson MD - 02/13/2024 Interpreted By: Josué Hodgson, STUDY: XR CHEST 1 VIEW; 02/13/2024 3:16 pm INDICATION: Signs/Symptoms:presynco pe COMPARISON: December 2023 ACCESSION NUMBER(S): [id number] ORDERING CLINICIAN: WOLF MARIN FINDINGS: The study is limited due to rotation and poor inspiratory effort, with resultant crowding of the pulmonary vasculature. The cardiomediastinal silhouette is within normal limits for the technique. There is no pneumothorax, confluent infiltrates or significant effusion. The osseous structures are unremarkable. IMPRESSION: Allowing for the aforementioned limitation, unremarkable chest. Signed by: Josué Hodgson 02/13/2024 3:21 PM Dictation workstation: [id number] [facility] Work Phone: Radiology Study observation (narrative) [facility] Work Phone: XR Chest Single viewOrdered By: Josué Hodgson on 02-13-2024 [facility] Work Phone: Glucose Test strip manual (B ld) [Mass/Vol]on 01-10-2024 Glucose [Mass/Vol] 146 mg/dL High 74 - 99 mg/dL [facility] Interpretation and review of laboratory results Abnormal [facility] ECG 12 leadOrdered By: Lyndsay Caal on 12-25-2023 Atrial Rate 104 BPM [facility] Work Phone: P [place] 52 degrees [facility] Work Phone: P Offset 191 ms [facility] Work Phone: P Onset 136 ms [facility] Work Phone: [place] Interval 164 ms [facility] Work Phone: Q Onset 218 ms [facility] Work Phone: QRS Count 17 beats [facility] Work Phone: QRS Duration 82 ms [facility] Work Phone: QT Interval 322 ms [facility] Work Phone: QTC Calculation(Bazett) [address] [facility] Work Phone: QTC Fredericia [facility] Work Phone: R [place] -19 degrees [facility] Work Phone: T [place] 68 degrees [facility] Work Phone: T Offset 379 ms [facility] Work Phone: Ventricular Rate 104 BPM [facility] Work Phone: [facility] Work Phone: ECG 12 leadon 12-25-2023 Sinus tachycardia Septal infarct , age undetermined Abnormal ECG When compared with ECG of 21-DEC-2023 23:08, (unconfirmed) Incomplete right bundle branch block is no longer Present Septal infarct is now Present See ED provider note for full interpretation and clinical correlation Confirmed by Lyndsay Caal ([id number]) on 12/25/2023 12:54:53 PM Lyndsay Chu PA-C - 12/25/2023 Sinus tachycardia Septal infarct , age undetermined Abnormal ECG When compared with ECG of 21-DEC-2023 23:08, (unconfirmed) Incomplete right bundle branch block is no longer Present Septal infarct is now Present See ED provider note for full interpretation and clinical correlation Confirmed by Lyndsay Caal ([id number]) on 12/25/2023 12:54:53 PM [facility] Work Phone: CBC W Auto Differential pane l (Bld)on 12-23-2023 Basophils (Bld) [#/Vol] 0.05 10*3/uL [facility] Basophils/100 WBC (Bld) 0.6 % 0.0 - 2.0 % [facility] Eosinophils (Bld) [#/Vol] 0.08 10*3/uL [facility] Eosinophils/100 WBC (Bld) 1.0 % 0.0 - 6.0 % [facility] Erythrocyte distribution width (RBC) [Ratio] 15.0 % High 11.5 - 14.5 % [facility] Hematocrit (Bld) [Volume fraction] 41.8 % 36.0 - 46.0 % [facility] Hemoglobin (Bld) [Mass/Vol] 13.6 g/dL 12.0 - 16.0 g/dL [facility] Immature granulocytes (Bld) [#/Vol] 0.03 10*3/uL [facility] Immature granulocytes/100 WBC (Bld) 0.4 % 0.0 - 0.9 % [facility] Comment on above: Immature Granulocyte Count (IG) includes promyelocytes, myelocytes and metamyelocytes but does not include bands. Percent differential counts (%) should be interpreted in the context of the absolute cell counts (cells/UL). Interpretation and review of laboratory results Abnormal [facility] Lymphocytes (Bld) [#/Vol] 2.51 10*3/uL [facility] Lymphocytes/100 WBC (Bld) 31.8 % 13.0 - 44.0 % [facility] MCH (RBC) [Entitic mass] 29.6 pg 26.0 - 34.0 pg [facility] MCHC (RBC) [Mass/Vol] 32.5 g/dL 32.0 - 36.0 g/dL [facility] MCV (RBC) [Entitic vol] 91 fL 80 - 100 fL [facility] Monocytes (Bld) [#/Vol] 0.53 10*3/uL [facility] Monocytes/100 WBC (Bld) 6.7 % 2.0 - 10.0 % [facility] Neutrophils (Bld) [#/Vol] 4.70 10*3/uL [facility] Comment on above: Percent differential counts (%) should be interpreted in the context of the absolute cell counts (cells/uL). Neutrophils/100 WBC (Bld) 59.5 % 40.0 - 80.0 % [facility] Nucleated RBC/100 WBC (Bld) [Ratio] 0.0 % [facility] Platelets (Bld) [#/Vol] 215 10*3/uL [facility] RBC (Bld) [#/Vol] 4.60 10*6/uL [facility] WBC (Bld) [#/Vol] 7.9 10*3/uL [facility] Comprehensive metabolic 2000 panelon 12-23-2023 Albumin BCP dye [Mass/Vol] 4.4 g/dL 3.4 - 5.0 g/dL [facility] ALP [Catalytic activity/Vol] 70 U/L 33 - 110 U/L [facility] ALT With P-5'-P [Catalytic activity/Vol] 16 U/L 7 - 45 U/L [facility] Comment on above: Patients treated wit h Sulfasalazine may generate falsely decreased results for ALT. Anion gap [Moles/Vol] 13 mmol/L 10 - 2 0 mmol/L [facility] AST With P-5'-P [Catalytic activity/Vol] 19 U/L 9 - 39 U/L [facility] Bilirubin [Mass/Vol] 0.7 mg/dL 0.0 - 1 .2 mg/dL [facility] Calcium [Mass/Vol] 9.4 mg/dL 8.6 - 10. 3 mg/dL [facility] Chloride [Moles/Vol] 105 mmol/L 98 - 10 7 mmol/L [facility] CO2 [Moles/Vol] 22 mmol/L 21 - 32 mmol/L [facility] Creatinine [Mass/Vol] 0.62 mg/dL 0.50 - 1.05 mg/dL [facility] eGFR - PINF [facility] Comment on above: Calculations of kayleigh mated GFR are performed using the 2020 CKD-EPI Study Refit equation without the race variable for the IDMS-Traceable creatinine methods. https://jasn.asnjournals.org/content/early/ASN.910254 6286 Glucose [Mass/Vol] 93 mg/dL 74 - 99 mg/dL [facility] Interpretation and review of laboratory results Abnormal [facility] Potassium [Moles/Vol] 3.4 mmol/L Low 3.5 - 5.3 mmol/L [facility] Protein [Mass/Vol] 7.1 g/dL 6.4 - 8.2 g/dL [facility] Sodium [Moles/Vol] 137 mmol/L 136 - 145 mmol/L [facility] Urea nitrogen [Mass/Vol] 15 mg/dL 6 - 23 mg/dL [facility] Glucose Test strip manual (B ld) [Mass/Vol]on 12-23-2023 Glucose [Mass/Vol] 131 mg/dL High 74 - 99 mg/dL [facility] Interpretation and review of laboratory results Abnormal [facility] Glucose [Mass/Vol] 85 mg/dL 74 - 99 mg/dL [facility] Interpretation and review of laboratory results Normal [facility] HCG ( test) IA.rapi d Ql (U)Ordered By: Telma Feliciano on 12-23-2023 HCG ( test) Ql (U) Negative NEGATIVE [facility] Interpretation and review of laboratory results Normal [facility] Influenza virus A and B and SARS-CoV-2 (COVID-19) identified TAMMY+probe Nom (Resp)on 12-23-2023 FLUAV RNA TAMMY+probe Ql (Resp) Not detected Not Detected [facility] FLUBV RNA TAMMY+probe Ql (Resp) Not detected Not Detected [facility] Interpretation and review of laboratory results Normal [facility] SARS-CoV-2 (COVID-19) RNA TAMMY+probe Ql (Resp) Not detected Not Detected [facility] This assay has recei lara FDA Emergency Use Authorization (EUA) and is only authorized for the duration of time that circumstances exist to justify the authorization of the emergency use of in vitro diagnostic tests for the detection of SARS-CoV-2 virus and/or diagnosis of COVID-19 infection under section 564(b)(1) of the Act, 21 U.S.C. 360bbb-3(b)(1). Testing for SARS-CoV-2 is only recommended for patients who meet current clinical and/or epidemiological criteria as defined by federal, state, or local public health directives. This assay is an in vitro diagnostic nucleic acid amplification test for the qualitative detection of SARS-CoV-2, Influenza A, and Influenza B from nasopharyngeal specimens and has been validated for use at [facility]. Negative results do not preclude COVID-19 infections or Influenza A/B infections, and should not be used as the sole basis for diagnosis, treatment, or other management decisions. If Influenza A/B and RSV PCR results are negative, testing for Parainfluenza virus, Adenovirus and Metapneumovirus is routinely performed for [facility] pediatric oncology and intensive care inpatients, and is available on other patients by placing an add-on request. [facility] No Panel Informationon 12-22 Interpretation and review of laboratory results Abnormal [facility] Urinalysis complete W Reflex Culture panel (U)on 12-23-2023 Appearance (U) Hazy Abnormal Clear [facility] Bilirubin (U) [Mass/Vol] Negative NEGATIVE [facility] Color (U) Yellow Straw, Yellow [facility] Glucose Auto test strip (U) [Mass/Vol] Negative NEGATIVE mg/dL [facility] Ketones (U) [Mass/Vol] Negative NEGATIVE mg/dL [facility] Leukocyte esterase Auto test strip Ql (U) TRACE Abnormal NEGATIVE [facility] Nitrite Auto test strip Ql (U) Negative NEGATIVE [facility] pH (U) 5.0 [pH] 5.0, 5.5, 6.0, 6.5, 7.0, 7.5, 8.0 [facility] Protein (U) [Mass/Vol] 100 (2+) Abnormal NEGATIVE mg/dL [facility] RBC (U) [#/Vol] Negative NEGATIVE [facility] Specific gravity (U) [Rel density] 1.031 1.005 - 1.035 [facility] Urobilinogen (U) [Mass/Vol] 2.0 mg/dL Abnormal NINF - 2.0 mg/dL [facility] Comment on above: Due to a manufacturi ng issue, low positive urobilinogen results may be falsely positive. Correlate with urine bilirubin and additional clinical/laboratory findings to assess the risk of hemolytic anemia or liver disease. If clinically indicated, repeat testing with an alternate method is available by contacting the laboratory within 24 hours. Some pigments and medications may cause a false positive urobilinogen. Urinalysis microscopic panel Auto Ql (U)on 12-23-2023 Bacteria Auto (Urine sed) [#/Area] 1+ Abnormal NONE SEEN /HPF [facility] Epithelial cells.squamous Auto (Urine sed) [#/Area] 1-9 (SPARSE) Reference range not established. /HPF [facility] RBC Auto (Urine sed) [#/Area] 6-10 Abnormal NONE, 1-2, 3-5 /HPF [facility] WBC Auto (Urine sed) [#/Area] 21-50 Abnormal 1-5, NONE /HPF [facility] XR Chest Single viewon 12-22 No acute findings. Signed by: Destiny Ann 12/23/2023 6:45 PM Dictation workstation: [id number] MMODAL Interpreted By: Destiny Leal, STUDY: XR CHEST 1 VIEW; ; 12/23/2023 6:10 pm INDICATION: Signs/Symptoms:weakness . COMPARISON: 12/06/2023 ACCESSION NUMBER(S): [id number] ORDERING CLINICIAN: FREEDOM CORDON TECHNIQUE: Portable chest FINDINGS: Lungs are clear. Heart size and mediastinal contours are within normal limits. No evidence of pleural effusion or pneumothorax. Bones are unremarkable. MMODAL Destiny Ann MD - 12/23/2023 Interpreted By: Destiny Ann, STUDY: XR CHEST 1 VIEW; ; 12/23/2023 6:10 pm INDICATION: Signs/Symptoms:weakness . COMPARISON: 12/06/2023 ACCESSION NUMBER(S): [id number] ORDERING CLINICIAN: FREEDOM CORDON TECHNIQUE: Portable chest FINDINGS: Lungs are clear. Heart size and mediastinal contours are within normal limits. No evidence of pleural effusion or pneumothorax. Bones are unremarkable. IMPRESSION: No acute findings. Signed by: Destiny Ann 12/23/2023 6:45 PM Dictation workstation: [id number] [facility] Work Phone: Radiology Study observation (narrative) [facility] Work Phone: XR Chest Single viewOrdered By: Destiny Ann on 12-23-2023 [facility] Work Phone: Basic metabolic 2000 panelon 12-07-2023 Anion gap [Moles/Vol] 9 mmol/L Low 10 - 2 0 mmol/L [facility] Calcium [Mass/Vol] 8.0 mg/dL Low 8.6 - 10. 3 mg/dL [facility] Chloride [Moles/Vol] 108 mmol/L High 98 - 10 7 mmol/L [facility] CO2 [Moles/Vol] 23 mmol/L 21 - 32 mmol/L [facility] Creatinine [Mass/Vol] 0.65 mg/dL 0.50 - 1.05 mg/dL [facility] eGFR - PINF [facility] Comment on above: Calculations of kayleigh mated GFR are performed using the 2020 CKD-EPI Study Refit equation without the race variable for the IDMS-Traceable creatinine methods. https://jasn.asnjournals.org/content//ASN.371718 8616 Glucose [Mass/Vol] 133 mg/dL High 74 - 99 mg/dL [facility] Interpretation and review of laboratory results Abnormal [facility] Potassium [Moles/Vol] 4.0 mmol/L 3.5 - 5.3 mmol/L [facility] Sodium [Moles/Vol] 136 mmol/L 136 - 145 mmol/L [facility] Urea nitrogen [Mass/Vol] 11 mg/dL 6 - 23 mg/dL [facility] CBC W Auto Differential pane l (Bld)on 12-07-2023 Basophils (Bld) [#/Vol] 0.04 10*3/uL [facility] Basophils/100 WBC (Bld) 0.7 % 0.0 - 2.0 % [facility] Eosinophils (Bld) [#/Vol] 0.19 10*3/uL [facility] Eosinophils/100 WBC (Bld) 3.3 % 0.0 - 6.0 % [facility] Erythrocyte distribution width (RBC) [Ratio] 15.4 % High 11.5 - 14.5 % [facility] Hematocrit (Bld) [Volume fraction] 34.6 % Low 36.0 - 46.0 % [facility] Hemoglobin (Bld) [Mass/Vol] 11.4 g/dL Low 12.0 - 16.0 g/dL [facility] Immature granulocytes (Bld) [#/Vol] 0.02 10*3/[facility] Immature granulocytes/100 WBC (Bld) 0.3 % 0.0 - 0.9 % [facility] Comment on above: Immature Granulocyte Count (IG) includes promyelocytes, myelocytes and metamyelocytes but does not include bands. Percent differential counts (%) should be interpreted in the context of the absolute cell counts (cells/UL). Interpretation and review of laboratory results Abnormal [facility] Lymphocytes (Bld) [#/Vol] 2.26 10*3/uL [facility] Lymphocytes/100 WBC (Bld) 38.8 % 13.0 - 44.0 % [facility] MCH (RBC) [Entitic mass] 30.6 pg 26.0 - 34.0 pg [facility] MCHC (RBC) [Mass/Vol] 32.9 g/dL 32.0 - 36.0 g/dL [facility] MCV (RBC) [Entitic vol] 93 fL 80 - 100 fL [facility] Monocytes (Bld) [#/Vol] 0.32 10*3/uL [facility] Monocytes/100 WBC (Bld) 5.5 % 2.0 - 10.0 % [facility] Neutrophils (Bld) [#/Vol] 2.99 10*3/uL [facility] Comment on above: Percent differential counts (%) should be interpreted in the context of the absolute cell counts (cells/uL). Neutrophils/100 WBC (Bld) 51.4 % 40.0 - 80.0 % [facility] Nucleated RBC/100 WBC (Bld) [Ratio] 0.0 % [facility] Platelets (Bld) [#/Vol] 156 10*3/uL [facility] RBC (Bld) [#/Vol] 3.73 10*6/uL Low [facility] WBC (Bld) [#/Vol] 5.8 10*3/uL [facility] Glucose Test strip manual (B ld) [Mass/Vol]on 12-07-2023 Glucose [Mass/Vol] 159 mg/dL High 74 - 99 mg/dL [facility] Interpretation and review of laboratory results Abnormal [facility] Glucose [Mass/Vol] 140 mg/dL High 74 - 99 mg/dL [facility] Interpretation and review of laboratory results Abnormal [facility] Beta hydroxybutyrate [Mass o r moles/Vol]on 12-06-2023 Beta hydroxybutyrate [Moles/Vol] 0.76 mmol/L High 0.02 - 0.27 mmol/L [facility] Interpretation and review of laboratory results Abnormal [facility] The beta-hydroxybutyrate test performance characteristics have been validated by [facility]. This test has not been approved by the FDA; however, such approval is not necessary. [facility] CBC W Auto Differential pane l (Bld)on 12-06-2023 Basophils (Bld) [#/Vol] 0.06 10*3/uL [facility] Basophils/100 WBC (Bld) 0.4 % 0.0 - 2.0 % [facility] Eosinophils (Bld) [#/Vol] 0.23 10*3/uL [facility] Eosinophils/100 WBC (Bld) 1.7 % 0.0 - 6.0 % [facility] Erythrocyte distribution width (RBC) [Ratio] 15.4 % High 11.5 - 14.5 % [facility] Hematocrit (Bld) [Volume fraction] 47.5 % High 36.0 - 46.0 % [facility] Hemoglobin (Bld) [Mass/Vol] 16.1 g/dL High 12.0 - 16.0 g/dL [facility] Immature granulocytes (Bld) [#/Vol] 0.07 10*3/uL [facility] Immature granulocytes/100 WBC (Bld) 0.5 % 0.0 - 0.9 % [facility] Comment on above: Immature Granulocyte Count (IG) includes promyelocytes, myelocytes and metamyelocytes but does not include bands. Percent differential counts (%) should be interpreted in the context of the absolute cell counts (cells/UL). Interpretation and review of laboratory results Abnormal [facility] Lymphocytes (Bld) [#/Vol] 2.02 10*3/uL [facility] Lymphocytes/100 WBC (Bld) 14.9 % 13.0 - 44.0 % [facility] MCH (RBC) [Entitic mass] 29.7 pg 26.0 - 34.0 pg [facility] MCHC (RBC) [Mass/Vol] 33.9 g/dL 32.0 - 36.0 g/dL [facility] MCV (RBC) [Entitic vol] 88 fL 80 - 100 fL [facility] Monocytes (Bld) [#/Vol] 0.73 10*3/uL [facility] Monocytes/100 WBC (Bld) 5.4 % 2.0 - 10.0 % [facility] Neutrophils (Bld) [#/Vol] 10.45 10*3/uL High [facility] Comment on above: Percent differential counts (%) should be interpreted in the context of the absolute cell counts (cells/uL). Neutrophils/100 WBC (Bld) 77.1 % 40.0 - 80.0 % [facility] Nucleated RBC/100 WBC (Bld) [Ratio] 0.0 % [facility] Platelets (Bld) [#/Vol] 354 10*3/uL [facility] RBC (Bld) [#/Vol] 5.43 10*6/uL High [facility] WBC (Bld) [#/Vol] 13.6 10*3/uL [facility] CBC panel Auto (Bld)on Erythrocyte distribution width (RBC) [Ratio] 15.1 % High 11.5 - 14.5 % [facility] Hematocrit (Bld) [Volume fraction] 38.5 % 36.0 - 46.0 % [facility] Hemoglobin (Bld) [Mass/Vol] 13.1 g/dL 12.0 - 16.0 g/dL [facility] Interpretation and review of laboratory results Abnormal [facility] MCH (RBC) [Entitic mass] 30.3 pg 26.0 - 34.0 pg [facility] MCHC (RBC) [Mass/Vol] 34.0 g/dL 32.0 - 36.0 g/dL [facility] MCV (RBC) [Entitic vol] 89 fL 80 - 100 fL [facility] Nucleated RBC/100 WBC (Bld) [Ratio] 0.0 % [facility] Platelets (Bld) [#/Vol] 247 10*3/uL [facility] RBC (Bld) [#/Vol] 4.32 10*6/uL [facility] WBC (Bld) [#/Vol] 10.2 10*3/uL [facility] CT Abdomen and Pelvis W cont rast Wing 12-06-2023 There is several fluid-filled mildly dilated loops of small bowel measuring up to 3.6 cm with transition point in the pelvis as described above. The distal small bowel loops are decompressed. Findings are concerning for developing small bowel obstruction. Mild haziness of the mesentery. No free air or free fluid. Surgical consultation is advised. Splenomegaly measuring 14.6 cm in craniocaudal dimension. Hepatic steatosis. Additional findings as described above. MACRO: None Signed by: Montana Leonardo 12/06/2023 1:34 AM Dictation workstation: [id number] MMODAL Interpreted By: Montana Leonardo, STUDY: CT ABDOMEN PELVIS W IV CONTRAST; 12/06/2023 1:18 am INDICATION: Signs/Symptoms:pain. COMPARISON: None. ACCESSION NUMBER(S): [id number] ORDERING CLINICIAN: ANIA URIARTE TECHNIQUE: Axial CT images of the abdomen and pelvis with coronal and sagittal reconstructed images obtained after intravenous administration of 68 mL of Omnipaque 350 FINDINGS: LOWER CHEST: No acute abnormality of the lung bases. ABDOMEN: LIVER: The dome of the liver is excluded from the field of view thereby limiting evaluation. Normal morphology. Liver is hypodense relative to the spleen which can be seen in the setting of steatosis. More focal area of hypoattenuation adjacent to the fissure for ligamentum teres may relate focal fatty infiltration or perfusion variant. BILE DUCTS: Normal caliber. GALLBLADDER: Status post cholecystectomy. PANCREAS: Within normal limits. SPLEEN: Spleen is enlarged measuring 14.6 cm in craniocaudal dimension. Calcified splenic granulomas noted. ADRENALS: Within normal limits. KIDNEYS and URETERS: Symmetric renal enhancement. No hydronephrosis or perinephric fluid collection. VESSELS: No aortic aneurysm. RETROPERITONEUM: No pathologically enlarged retroperitoneal lymph nodes. PELVIS: REPRODUCTIVE ORGANS: Uterus is present. Bilateral tubal ligation clips noted. No adnexal mass. BLADDER: Bladder is under distended with apparent wall thickening. BOWEL: Stomach is partially distended. There are multiple mildly fluid-filled loops of small bowel measuring up to 3 cm. The distal loops of small bowel are decompressed with transition point suspected in the midline pelvis as seen on axial image 112 of 164. These findings raise concern for developing small bowel obstruction. There is mild haziness of the mesentery. Normal appendix. PERITONEUM: No ascites or free air, no fluid collection. ABDOMINAL WALL: Diastasis of the rectus sheath with protrusion of fat. Postsurgical changes of ventral hernia mesh repair suspected. BONES: Mild degenerative changes of the spine. MMODAL Montana Leonardo MD - 12/06/2023 Interpreted By: Montana Leonardo, STUDY: CT ABDOMEN PELVIS W IV CONTRAST; 12/06/2023 1:18 am INDICATION: Signs/Symptoms:pain. COMPARISON: None. ACCESSION NUMBER(S): [id number] ORDERING CLINICIAN: ANIA URIARTE TECHNIQUE: Axial CT images of the abdomen and pelvis with coronal and sagittal reconstructed images obtained after intravenous administration of 68 mL of Omnipaque 350 FINDINGS: LOWER CHEST: No acute abnormality of the lung bases. ABDOMEN: LIVER: The dome of the liver is excluded from the field of view thereby limiting evaluation. Normal morphology. Liver is hypodense relative to the spleen which can be seen in the setting of steatosis. More focal area of hypoattenuation adjacent to the fissure for ligamentum teres may relate focal fatty infiltration or perfusion variant. BILE DUCTS: Normal caliber. GALLBLADDER: Status post cholecystectomy. PANCREAS: Within normal limits. SPLEEN: Spleen is enlarged measuring 14.6 cm in craniocaudal dimension. Calcified splenic granulomas noted. ADRENALS: Within normal limits. KIDNEYS and URETERS: Symmetric renal enhancement. No hydronephrosis or perinephric fluid collection. VESSELS: No aortic aneurysm. RETROPERITONEUM: No pathologically enlarged retroperitoneal lymph nodes. PELVIS: REPRODUCTIVE ORGANS: Uterus is present. Bilateral tubal ligation clips noted. No adnexal mass. BLADDER: Bladder is under distended with apparent wall thickening. BOWEL: Stomach is partially distended. There are multiple mildly fluid-filled loops of small bowel measuring up to 3 cm. The distal loops of small bowel are decompressed with transition point suspected in the midline pelvis as seen on axial image 112 of 164. These findings raise concern for developing small bowel obstruction. There is mild haziness of the mesentery. Normal appendix. PERITONEUM: No ascites or free air, no fluid collection. ABDOMINAL WALL: Diastasis of the rectus sheath with protrusion of fat. Postsurgical changes of ventral hernia mesh repair suspected. BONES: Mild degenerative changes of the spine. IMPRESSION: There is several fluid-filled mildly dilated loops of small bowel measuring up to 3.6 cm with transition point in the pelvis as described above. The distal small bowel loops are decompressed. Findings are concerning for developing small bowel obstruction. Mild haziness of the mesentery. No free air or free fluid. Surgical consultation is advised. Splenomegaly measuring 14.6 cm in craniocaudal dimension. Hepatic steatosis. Additional findings as described above. MACRO: None Signed by: Montana Leonardo 12/06/2023 1:34 AM Dictation workstation: [id number] [facility] Work Phone: Radiology Study observation (narrative) [facility] Work Phone: CT Abdomen and Pelvis W cont rast IVOrdered By: Montana Leonardo on 12-06-2023 [facility] Work Phone: Comprehensive metabolic 2000 panelon 12-06-2023 Albumin BCP dye [Mass/Vol] 4.9 g/dL 3.4 - 5.0 g/dL [facility] ALP [Catalytic activity/Vol] 77 U/L 33 - 110 U/L [facility] ALT With P-5'-P [Catalytic activity/Vol] 19 U/L 7 - 45 U/L [facility] Comment on above: Patients treated wit h Sulfasalazine may generate falsely decreased results for ALT. Anion gap [Moles/Vol] 15 mmol/L 10 - 2 0 mmol/L [facility] AST With P-5'-P [Catalytic activity/Vol] 19 U/L 9 - 39 U/L [facility] Bilirubin [Mass/Vol] 1.2 mg/dL 0.0 - 1 .2 mg/dL [facility] Calcium [Mass/Vol] 10.3 mg/dL 8.6 - 10. 3 mg/dL [facility] Chloride [Moles/Vol] 99 mmol/L 98 - 10 7 mmol/L [facility] CO2 [Moles/Vol] 23 mmol/L 21 - 32 mmol/L [facility] Creatinine [Mass/Vol] 0.80 mg/dL 0.50 - 1.05 mg/dL [facility] eGFR - PINF [facility] Comment on above: Calculations of kayleigh mated GFR are performed using the 2020 CKD-EPI Study Refit equation without the race variable for the IDMS-Traceable creatinine methods. https://jasn.asnjournals.org/content//ASN.420671 6976 Glucose [Mass/Vol] 244 mg/dL High 74 - 99 mg/dL [facility] Interpretation and review of laboratory results Abnormal [facility] Potassium [Moles/Vol] 4.4 mmol/L 3.5 - 5.3 mmol/L [facility] Protein [Mass/Vol] 8.1 g/dL 6.4 - 8.2 g/dL [facility] Sodium [Moles/Vol] 133 mmol/L Low 136 - 145 mmol/L [facility] Urea nitrogen [Mass/Vol] 18 mg/dL 6 - 23 mg/dL [facility] Extra Urine Weber Tubeon 11-09 Extra Tube Hold for add-ons. [facility] Comment on above: Auto resulted. [facility] FLUAV and FLUBV RNA TAMMY+prob e Nom (Unsp spec)on 12-06-2023 FLUAV RNA TAMMY+probe Ql (Resp) Not detected Not Detected [facility] FLUBV RNA TAMMY+probe Ql (Resp) Not detected Not Detected [facility] This assay is an in vitro diagnostic multiplex nucleic acid amplification test for the detection and discrimination of Influenza A & B from nasopharyngeal specimens, and has been validated for use at [facility]. Negative results do not preclude Influenza A/B infections, and should not be used as the sole basis for diagnosis, treatment, or other management decisions. If Influenza A/B and RSV PCR results are negative, testing for Parainfluenza virus, Adenovirus and Metapneumovirus is routinely performed for [facility] pediatric oncology and intensive care inpatients, and is available on other patients by placing an add-on request. [facility] Glucose Test strip manual (B ld) [Mass/Vol]on 12-06-2023 Glucose [Mass/Vol] 194 mg/dL High 74 - 99 mg/dL [facility] Interpretation and review of laboratory results Abnormal [facility] Glucose [Mass/Vol] 284 mg/dL High 74 - 99 mg/dL [facility] Interpretation and review of laboratory results Abnormal [facility] Glucose [Mass/Vol] 135 mg/dL High 74 - 99 mg/dL [facility] Comment on above: RN/ NOTIFIED Interpretation and review of laboratory results Abnormal [facility] Glucose [Mass/Vol] 201 mg/dL High 74 - 99 mg/dL [facility] Comment on above: RN/ NOTIFIED Interpretation and review of laboratory results Abnormal [facility] Lactateon 12-06-2023 Lactate [Moles/Vol] 1.1 mmol/L 0.4 - 2. 0 mmol/L [facility] Lactate [Moles/Vol]on 2023 Interpretation and review of laboratory results Normal [facility] Venipuncture immediately after or during the administration of Metamizole may lead to falsely low results. Testing should be performed immediately prior to Metamizole dosing. [facility] Lipaseon 12-06-2023 Lipase [Catalytic activity/Vol] 16 U/L 9 - 82 U/L [facility] Lipase [Catalytic activity/V ol]on 12-06-2023 Interpretation and review of laboratory results Normal [facility] Venipuncture immediately after or during the administration of Metamizole may lead to falsely low results. Testing should be performed immediately prior to Metamizole dosing. [facility] Magnesiumon 12-06-2023 Magnesium [Mass/Vol] 2.36 mg/dL 1.60 - 2.40 mg/dL [facility] Magnesium [Mass/Vol]on Interpretation and review of laboratory results Normal [facility] No Panel Informationon Interpretation and review of laboratory results Normal [facility] Renal function 2000 panelon 12-06-2023 Albumin BCP dye [Mass/Vol] 3.9 g/dL 3.4 - 5.0 g/dL [facility] Anion gap [Moles/Vol] 10 mmol/L 10 - 2 0 mmol/L [facility] Calcium [Mass/Vol] 8.6 mg/dL 8.6 - 10. 3 mg/dL [facility] Comment on above: Reviewed with previo us results Chloride [Moles/Vol] 106 mmol/L 98 - 10 7 mmol/L [facility] CO2 [Moles/Vol] 23 mmol/L 21 - 32 mmol/L [facility] Creatinine [Mass/Vol] 0.57 mg/dL 0.50 - 1.05 mg/dL [facility] eGFR - PINF [facility] Comment on above: Calculations of kayleigh mated GFR are performed using the 2020 CKD-EPI Study Refit equation without the race variable for the IDMS-Traceable creatinine methods. https://jasn.asnjournals.org/content//ASN.823203 6358 Glucose [Mass/Vol] 195 mg/dL High 74 - 99 mg/dL [facility] Interpretation and review of laboratory results Abnormal [facility] Phosphate [Mass/Vol] 3.7 mg/dL 2.5 - 4 .9 mg/dL [facility] Comment on above: The performance phu acteristics of phosphorus testing in heparinized plasma have been validated by the individual laboratory site where testing is performed. Testing on heparinized plasma is not approved by the FDA; however, such approval is not necessary. Potassium [Moles/Vol] 4.2 mmol/L 3.5 - 5.3 mmol/L [facility] Sodium [Moles/Vol] 135 mmol/L Low 136 - 145 mmol/L [facility] Urea nitrogen [Mass/Vol] 15 mg/dL 6 - 23 mg/dL [facility] SARS-CoV-2 (COVID-19) RNA NA A+probe Ql (Resp)on 12-06-2023 This assay has recei lara FDA Emergency Use Authorization (EUA) and is only authorized for the duration of time that circumstances exist to justify the authorization of the emergency use of in vitro diagnostic tests for the detection of SARS-CoV-2 virus and/or diagnosis of COVID-19 infection under section 564(b)(1) of the Act, 21 U.S.C. 360bbb-3(b)(1). This assay is an in vitro diagnostic nucleic acid amplification test for the qualitative detection of SARS-CoV-2 from nasopharyngeal specimens and has been validated for use at [facility]. Negative results do not preclude COVID-19 infections and should not be used as the sole basis for diagnosis, treatment, or other management decisions. [facility] Sars-CoV-2 PCRon 12-06-2023 SARS-CoV-2 (COVID-19) RNA TAMMY+probe Ql (Resp) Not detected Not Detected [facility] Urinalysis complete W Reflex Culture panel (U)on 12-06-2023 Appearance (U) Clear Clear [facility] Bilirubin (U) [Mass/Vol] Negative NEGATIVE [facility] Color (U) Yellow Straw, Yellow [facility] Glucose Auto test strip (U) [Mass/Vol] >=500 (3+) Abnormal NEGATIVE mg/dL [facility] Interpretation and review of laboratory results Abnormal [facility] Ketones (U) [Mass/Vol] 20 (1+) Abnormal NEGATIVE mg/dL [facility] Leukocyte esterase Auto test strip Ql (U) Negative NEGATIVE [facility] Nitrite Auto test strip Ql (U) Negative NEGATIVE [facility] pH (U) 5.0 [pH] 5.0, 5.5, 6.0, 6.5, 7.0, 7.5, 8.0 [facility] Protein (U) [Mass/Vol] Negative NEGATIVE mg/dL [facility] RBC (U) [#/Vol] Negative NEGATIVE [facility] Specific gravity (U) [Rel density] 1.054 Abnormal 1.005 - 1.035 [facility] Urobilinogen (U) [Mass/Vol] mg/dL NINF - 2.0 mg/dL [facility] XR Abdomen Single viewon Nonobstructive bowel gas pattern. MACRO: None Signed by: Efrain Wilkinson 12/06/2023 10:12 AM Dictation workstation: [id number] MMODAL Interpreted By: Efrain Wilkinson, STUDY: XR ABDOMEN 1 VIEW; 12/06/2023 9:44 am INDICATION: Signs/Symptoms:sbo, continued abd pain. COMPARISON: None. ACCESSION NUMBER(S): [id number] ORDERING CLINICIAN: LIZA JIMENEZ FINDINGS: 2 supine AP radiographs of the abdomen were obtained. There is a nonobstructive bowel gas pattern present. Free intraperitoneal air and air-fluid levels cannot be excluded without upright or decubitus images. MMODAL Efrain Wilkinson MD - 12/06/2023 Interpreted By: Efrain Wilkinson, STUDY: XR ABDOMEN 1 VIEW; 12/06/2023 9:44 am INDICATION: Signs/Symptoms:sbo, continued abd pain. COMPARISON: None. ACCESSION NUMBER(S): [id number] ORDERING CLINICIAN: LIZA JIMENEZ FINDINGS: 2 supine AP radiographs of the abdomen were obtained. There is a nonobstructive bowel gas pattern present. Free intraperitoneal air and air-fluid levels cannot be excluded without upright or decubitus images. IMPRESSION: Nonobstructive bowel gas pattern. MACRO: None Signed by: Efrain Wilkinson 12/06/2023 10:12 AM Dictation workstation: [id number] [facility] Work Phone: Radiology Study observation (narrative) [facility] Work Phone: NG tube tip overlies the left upper quadrant in the expected location of the stomach. MACRO: None. Signed by: Devante Ramirez 12/06/2023 2:44 AM Dictation workstation: [id number] MMODAL Interpreted By: Devante Ramirez, STUDY: XR ABDOMEN 1 VIEW; 12/06/2023 2:42 am INDICATION: Signs/Symptoms:NGT placement. COMPARISON: CT abdomen pelvis 12/06/2023 ACCESSION NUMBER(S): [id number] ORDERING CLINICIAN: ANIA URIARTE FINDINGS: NG tube courses below the diaphragm, tip overlying the left upper quadrant in the expected location of the stomach. Dilated small bowel is better seen on prior CT abdomen pelvis. Visualized lungs are clear. Osseous structures demonstrate no acute bony changes. [facility] MMODAL Devante Ramirez MD - 12/06/2023 Interpreted By: Devante Ramirez, STUDY: XR ABDOMEN 1 VIEW; 12/06/2023 2:42 am INDICATION: Signs/Symptoms:NGT placement. COMPARISON: CT abdomen pelvis 12/06/2023 ACCESSION NUMBER(S): [id number] ORDERING CLINICIAN: ANIA URIARTE FINDINGS: NG tube courses below the diaphragm, tip overlying the left upper quadrant in the expected location of the stomach. Dilated small bowel is better seen on prior CT abdomen pelvis. Visualized lungs are clear. Osseous structures demonstrate no acute bony changes. IMPRESSION: NG tube tip overlies the left upper quadrant in the expected location of the stomach. MACRO: None. Signed by: Devante Ramirez 12/06/2023 2:44 AM Dictation workstation: [id number] [facility] Work Phone: Radiology Study observation (narrative) [facility] Work Phone: XR Abdomen Single viewOrdere d By: Efrain Wilkinson on 12-06-2023 [facility] Work Phone: XR Abdomen Single viewOrdere d By: Devante Ramirez on 12-06-2023 [facility] Work Phone: XR Chest Single viewon 1. Low lung volumes without evidence of consolidation or pleural effusion. MACRO: None Signed by: Magdaleno Jacobs 12/06/2023 1:00 AM Dictation workstation: [id number] [place] Interpreted By: Magdaleno Jacobs, STUDY: XR CHEST 1 VIEW; 12/06/2023 12:42 am INDICATION: Signs/Symptoms:cough. COMPARISON: None. ACCESSION NUMBER(S): [id number] ORDERING CLINICIAN: ANIA URIARTE FINDINGS: AP radiograph of the chest was provided. CARDIOMEDIASTINAL SILHOUETTE: Cardiomediastinal silhouette is normal in size and configuration. LUNGS: Low lung volumes without evidence of consolidation or pleural effusion. ABDOMEN: No remarkable upper abdominal findings. BONES: No acute osseous changes. MMODAL Elinor Jacobs v, MD - 12/06/2023 Interpreted By: Magdaleno Jacobs, STUDY: XR CHEST 1 VIEW; 12/06/2023 12:42 am INDICATION: Signs/Symptoms:cough. COMPARISON: None. ACCESSION NUMBER(S): [id number] ORDERING CLINICIAN: ANIA URIARTE FINDINGS: AP radiograph of the chest was provided. CARDIOMEDIASTINAL SILHOUETTE: Cardiomediastinal silhouette is normal in size and configuration. LUNGS: Low lung volumes without evidence of consolidation or pleural effusion. ABDOMEN: No remarkable upper abdominal findings. BONES: No acute osseous changes. IMPRESSION: 1. Low lung volumes without evidence of consolidation or pleural effusion. MACRO: None Signed by: Magdaleno Jacobs 12/06/2023 1:00 AM Dictation workstation: [id number] [facility] Work Phone: Radiology Study observation (narrative) [facility] Work Phone: XR Chest Single viewOrdered By: Magdaleno Jacobs on 12-06-2023 [facility] Work Phone: Nicole 11-08-2023 C[facility]N [facility] REINALDO WARREN ([id number]) 1985 F Date Time Provider Department 11/08/23 JEANETTE MILLER [facility] During your visit today, we recorded the following information about you: Agnieszka Hughes 11/08/2023 9:14 AM Signed Patient called and wanted to make an appointment with you. I gave her the 1st available one. Patient stated that's to far away and she needed to see you sooner. I explained I can add her to the wait list so if someone cancels we can call her. She then stated she need to talk to you because she was in the hospital yesterday for a heart attack and she thinks it was caused by her anxiety. She asked for a return call. Thank you Agnieszka Hughes November 08, 2023 9:13 AM Jeanette Miller APRN.PUBLIC SAF[employer]Y TELECOMMUNICATOR 11/09/2023 10:59 AM Signed Spoke with patient who has been having increased anxiety, panic attacks, and trouble sleeping. Discussed importance of staying on all medications as prescribed as she stopped the trazodone and her blood pressure medications. Reports continuing to take Effexor and requests increase in dose. Increased to 150 mg once daily and to send message if blood pressure does not stay controlled with blood pressure medications - is aware that she needs to continue to take those as recommended by PCP/cardiology. Will also restart trazodone. Has upcoming appointment on 11/29/23. 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 After finishing 1 week of 37.5 mg dailyDisp: 90 capsuleRfl: 0 Prescriptions as of 11/09/2023 - traZODone (DESYREL) 50 mg tablet Take 0.5-1 tablets by mouth at bedtime as needed. - venlafaxine ER (EFFEXOR XR) 150 mg 24 hr capsule Take 1 capsule by mouth once daily. After finishing 1 week of 37.5 mg daily - rosuvastatin (CRESTOR) 5 mg tablet take 1 tablet by mouth everyday at bedtime - flash glucose sensor (FREESTYLE EVERARDO 2 SENSOR) kit Apply new sensor every fourteen (14) days to upper arm. E11.65 on 4 insulin shots - dulaglutide (TRULICITY) 1.5 mg/0.5 mL pen injector Inject 1.5 mg subcutaneously one time a week. - Blood-Glucose Sensor (DEXCOM G6 SENSOR) myah Use to monitor glucose 3 times daily and continuously. Change every 10 days. - Blood-Glucose Meter,Continuous (DEXCOM G6 CHOCOLATIER) misc Use to monitor glucose 3 times daily and continuously. - Blood-Glucose Transmitter (DEXCOM G6 TRANSMITTER) myah Use to monitor glucose 3 times daily and continuously. Change every 90 days. - lisinopril (ZESTRIL) 40 mg tablet TAKE 1 TABLET BY MOUTH EVERY DAY - insulin glargine (BASAGLAR KWIKPEN U-100 INSULIN) 100 unit/mL (3 mL) Inject 25 Units subcutaneously daily at bedtime. - linaclotide (LINZESS) 145 mcg capsule Take by mouth. - cyclobenzaprine (FLEXERIL) 10 mg tablet Take 1 tablet by mouth three times daily as needed for muscle spasm. - blood sugar diagnostic (FREESTYLE LITE STRIPS) test strip Test blood sugar(s) 3 times daily. Dx: Type 2 DM - Controlled E11.9 Insulin: No Problem List As Of Date 11/08/2023 Noted Resolved Adjustment disorder with depressed mood [F43.21]10/06/2008 Asthma, mild intermittent [J45.20] 01/27/2009 Glycosuria [R81] 07/06/2009 07/18/2013 Closed fracture of metacarpal bone(s), site uns*01/05/2010 02/03/2013 Hemorrhoids [K64.9] 05/19/2011 02/03/2013 Irregular menstrual bleeding [N92.6] 06/13/2012 11/18/2012 Postcoital bleeding [N93.0] 06/13/2012 09/26/2012 Amenorrhea [N91.2] 10/15/2012 02/03/2013 History of [Z98.891] 10/31/2012 07/18/2013 History of gestational diabetes [Z86.32] 10/31/2012 10/13/2020 History of hypertension [Z86.79] 10/31/2012 08/14/2019 Reading difficulty [F81.0] 10/31/2012 08/14/2019 Family history of defects [Z82.79] 10/31/2012 08/14/2019 History of anesthesia complications [Z87.898] 10/31/2012 07/18/2013 Rubella non-immune status, antepartum [O09.899,*11/01/2012 07/18/2013 LOC (loss of consciousness) [R40.20] 02/03/2013 07/18/2013 Abnormal glucose complicating [O99.81*03/16/2013 07/18/2013 Nipple discharge [N64.52] 02/19/2016 08/14/2019 Lump or mass in breast [N63.0] 02/19/2016 08/14/2019 Umbilical hernia [K42.9] 06/07/2017 08/14/2019 Intramural uterine fibroid [D25.1] 08/14/2019 Hypertension, essential [I10] 04/02/2020 Intermittent alternat (more content not included)... Normal [facility] Absolute lymphocyte countOrd ered By: Tavares Lee on 11-07-2023 Lymphocytes Auto (Unsp spec) [#/Vol] 2.65 10*3/uL 0.83-4.51 [facility] Automated lymphocyte count a s percentage of total leukocytesOrdered By: Tavares Lee on 11-07-2023 Lymphocytes/100 WBC Auto (Unsp spec) 26.5 % 19-41 [facility] Basophil percentageOrdered B y: Tavares Lee on 11-07-2023 Basophils/100 WBC (Bld) 0.7 % 0-1 [facility] Chloride [Moles/Vol] 108 mmol/L 98-107 [facility] Eosinophils/100 WBC (Bld) 0.9 % 0-5 [facility] Glucose [Mass/Vol] 239 mg/dL 74-106 [facility] Comment on above: Glucose result great er than or equal to 200 mg/dLsuggests DIABETES MELLITUS per A.D.A. criteria. Hemoglobin (Bld) [Mass/Vol] 13.5 g/dL 12.0-15.0 [facility] Monocytes/100 WBC (Bld) 5.0 % 0-10 [facility] Neutrophils (Bld) [#/Vol] 6.6 10*3/uL 2.0-7.7 [facility] Neutrophils/100 WBC (Bld) 66.3 % 47-70 [facility] Potassium [Moles/Vol] 3.8 mmol/L 3.5-5.[address] [facility] Sodium [Moles/Vol] 135 mmol/L 136-145 [facility] WBC (Bld) [#/Vol] 10.0 10*3/uL 4.4-11.0 [facility] Determination of erythrocyte mean corpuscular volume (MCV)Ordered By: Tavares Lee on 11-07-2023 MCV (RBC) [Entitic vol] 85.7 fL 81-99 [facility] Erythrocyte distribution wid th ratioOrdered By: Tavares Lee on 11-07-2023 Erythrocyte distribution width (RBC) [Ratio] 15.5 % 11.6-14.6 [facility] Erythrocyte distribution wid th standard deviationOrdered By: Tavares Lee on 11-07-2023 Erythrocyte distribution width (RBC) [Entitic vol] 48.7 fL 35.1-43.9 [facility] Hematocrit Auto (Bld) [Volum e fraction]Ordered By: Tavares Lee on 11-07-2023 Hematocrit (Bld) [Volume fraction] 39.6 % 37-47 [facility] Immature granulocytes/100 WB C Auto (Bld)Ordered By: Tavares Lee on 11-07-2023 Immature granulocytes/100 WBC (Bld) 0.600 % 0.0-0.9 [facility] Comment on above: IG% - Immature Granu locytes (promyelocytes, myelocytes and metamyelocytes) > 1% indicates that a LEFT SHIFT is Present. Laboratory - Chemistry and C hemistry - challengeOrdered By: Tavares Lee on 11-07-2023 CO2 [Moles/Vol] 21.0 mmol/L 21.0-32.0 [facility] Urea nitrogen/Creatinine [Mass ratio] 14.4 mg/mg 10-20 [facility] Laboratory - Hematology and Cell countsOrdered By: Tavares Lee on 11-07-2023 MCH (RBC) [Entitic mass] 29.2 pg 27.0-32.0 [facility] MCHC (RBC) [Mass/Vol] 34.1 g/dL 32-[address] [facility] Nucleated RBC/100 WBC (Bld) [Ratio] 0 % 0-5 [facility] Platelets (Bld) [#/Vol] 231 10*3/uL 150-450 [facility] No Panel InformationOrdered By: Tavares Lee on 11-07-2023 Troponin I High Sensitivity 5 pg/mL 3.0-54.0 [facility] Comment on above: Please Note: New Jocelyn t Units and Gender Specific Reference Ranges. For more information see Policy Stat Procedure [place] High Sensitivity Troponin (TNIH) and attachments. Estimated Creatinine Clearance Calc 115.95 ml/min [facility] Estimated GFR (MDRD) Amer 121 mL/min >60 [facility] Comment on above: GFR Calc Estimated GFR (MDRD) Non-Af Amer 100 mL/min >60 [facility] Comment on above: Non- GFR Calc Platelet mean volume Gabriel-Ec ker (Bld) [Entitic vol]Ordered By: Tavares Lee on 11-07-2023 Platelet mean volume (Bld) [Entitic vol] 10.7 fL 6.2-12.0 [facility] RBC Auto (Bld) [#/Vol]Ordere d By: Tavares Lee on 11-07-2023 RBC (Bld) [#/Vol] 4.62 10*6/uL 4.2-5.4 [facility] Serum or plasma calcium orly urement (mass/volume)Ordered By: Tavares Lee on 11-07-2023 Calcium [Mass/Vol] 9.0 mg/dL 8.5-10.1 [facility] Serum or plasma creatinine m easurement (mass/volume)Ordered By: Tavares Lee on 11-07-2023 Creatinine [Mass/Vol] 0.70 mg/dL 0.55-1.[address] [facility] Comment on above: The validity of the calculated GFR & GFRAA in patients over 70 years has not been determined. Clinical correlation is essential. Serum or plasma urea nitroge n measurement (mass/volume)Ordered By: Tavares Lee on 11-07-2023 Urea nitrogen [Mass/Vol] 10 mg/dL 7-18 [facility] Thin prep Papanicolaou smear with manual screeningOrdered By: Tavares Lee on 11-07-2023 Thin prep Papanicolaou smear with manual screening 6 5-15 [facility] Extra Urine Weber TubeOrdered By: Angie Bee on 08-03-2023 Extra Tube Hold for add-ons. [facility] Comment on above: Auto resulted. [facility] Bacteria identified Cx Nom ( U)Ordered By: Henrietta Amezquita on 07-16-2023 Interpretation and review of laboratory results Abnormal [facility] Identification and/o r susceptibilities to follow [facility] Urine CultureOrdered By: Ginger Amezquita on 07-16-2023 Bacteria identified Cx Nom (U) >100,000 Klebsiella pneumoniae/variicola Abnormal [facility] Cardiac echo study Procedure on 07-12-2023 Ordered by an unspecified provider. [facility] CBC W Auto Differential pane l (Bld)on 07-11-2023 Basophils (Bld) [#/Vol] 0.05 10*3/uL [facility] Basophils/100 WBC (Bld) 0.5 % 0.0 - 2.0 % [facility] Eosinophils (Bld) [#/Vol] 0.06 10*3/uL [facility] Eosinophils/100 WBC (Bld) 0.6 % 0.0 - 6.0 % [facility] Erythrocyte distribution width (RBC) [Ratio] 14.6 % High 11.5 - 14.5 % [facility] Hematocrit (Bld) [Volume fraction] 38.0 % 36.0 - 46.0 % [facility] Hemoglobin (Bld) [Mass/Vol] 12.7 g/dL 12.0 - 16.0 g/dL [facility] Immature granulocytes (Bld) [#/Vol] 0.09 10*3/uL [facility] Immature granulocytes/100 WBC (Bld) 0.9 % 0.0 - 0.9 % [facility] Comment on above: Immature Granulocyte Count (IG) includes promyelocytes, myelocytes and metamyelocytes but does not include bands. Percent differential counts (%) should be interpreted in the context of the absolute cell counts (cells/UL). Interpretation and review of laboratory results Abnormal [facility] Lymphocytes (Bld) [#/Vol] 1.55 10*3/uL [facility] Lymphocytes/100 WBC (Bld) 15.4 % 13.0 - 44.0 % [facility] MCH (RBC) [Entitic mass] 30.2 pg 26.0 - 34.0 pg [facility] MCHC (RBC) [Mass/Vol] 33.4 g/dL 32.0 - 36.0 g/dL [facility] MCV (RBC) [Entitic vol] 90 fL 80 - 100 fL [facility] Monocytes (Bld) [#/Vol] 0.49 10*3/uL [facility] Monocytes/100 WBC (Bld) 4.9 % 2.0 - 10.0 % [facility] Neutrophils (Bld) [#/Vol] 7.81 10*3/uL High [facility] Comment on above: Percent differential counts (%) should be interpreted in the context of the absolute cell counts (cells/uL). Neutrophils/100 WBC (Bld) 77.7 % 40.0 - 80.0 % [facility] Nucleated RBC/100 WBC (Bld) [Ratio] 0.0 % [facility] Platelet mean volume (Bld) [Entitic vol] 10.4 fL 7.5 - 11.5 fL [facility] Platelets (Bld) [#/Vol] 244 10*3/uL [facility] RBC (Bld) [#/Vol] 4.21 10*6/uL [facility] WBC (Bld) [#/Vol] 10.1 10*3/uL [facility] [place] [facility] [place] 2000 panelon 07-11-2023 Albumin BCP dye [Mass/Vol] 4.3 g/dL 3.4 - 5.0 g/dL [facility] ALP [Catalytic activity/Vol] 64 U/L 33 - 110 U/L [facility] ALT With P-5'-P [Catalytic activity/Vol] 16 U/L 7 - 45 U/L [facility] Comment on above: Patients treated wit h Sulfasalazine may generate falsely decreased results for ALT. Anion gap [Moles/Vol] 14 mmol/L 10 - 2 0 mmol/L [facility] AST With P-5'-P [Catalytic activity/Vol] 14 U/L 9 - 39 U/L [facility] Bilirubin [Mass/Vol] 0.8 mg/dL 0.0 - 1 .2 mg/dL [facility] Calcium [Mass/Vol] 9.6 mg/dL 8.6 - 10. 3 mg/dL [facility] Chloride [Moles/Vol] 100 mmol/L 98 - 10 7 mmol/L [facility] CO2 [Moles/Vol] 23 mmol/L 21 - 32 mmol/L [facility] Creatinine [Mass/Vol] 0.72 mg/dL 0.50 - 1.05 mg/dL [facility] GFR/1.73 sq M.predicted MDRD (S/P/Bld) [Vol rate/Area] - PINF [facility] Comment on above: Calculations of kayleigh mated GFR are performed using the 2020 CKD-EPI Study Refit equation without the race variable for the IDMS-Traceable creatinine methods. https://jasn.asnjournals.org/content//ASN.987932 4516 Glucose [Mass/Vol] 244 mg/dL High 74 - 99 mg/dL [facility] Interpretation and review of laboratory results Abnormal [facility] Potassium [Moles/Vol] 4.0 mmol/L 3.5 - 5.3 mmol/L [facility] Protein [Mass/Vol] 6.7 g/dL 6.4 - 8.2 g/dL [facility] Sodium [Moles/Vol] 133 mmol/L Low 136 - 145 mmol/L [facility] Urea nitrogen [Mass/Vol] 7 mg/dL 6 - 23 mg/dL [facility] No Panel Informationon 07-11 Interpretation and review of laboratory results Abnormal [facility] Urinalysis complete W Reflex Culture panel (U)on 07-11-2023 Appearance (U) Hazy Abnormal Clear [facility] Bilirubin (U) [Mass/Vol] Negative NEGATIVE [facility] Color (U) Yellow Straw, Yellow [facility] Glucose Auto test strip (U) [Mass/Vol] >=500 (3+) Abnormal NEGATIVE mg/dL [facility] Ketones (U) [Mass/Vol] 5 (TRACE) Abnormal NEGATIVE mg/dL [facility] Leukocyte esterase Auto test strip Ql (U) MODERATE (2+) Abnormal NEGATIVE [facility] Nitrite Auto test strip Ql (U) Positive Abnormal NEGATIVE [facility] pH (U) 5.0 [pH] 5.0, 5.5, 6.0, 6.5, 7.0, 7.5, 8.0 [facility] Protein (U) [Mass/Vol] 30 (1+) Abnormal NEGATIVE mg/dL [facility] RBC (U) [#/Vol] Negative NEGATIVE [facility] Specific gravity (U) [Rel density] 1.023 1.005 - 1.035 [facility] Urobilinogen (U) [Mass/Vol] mg/dL NINF - 2.0 mg/dL [facility] Urinalysis microscopic panel Auto Ql (U)on 07-11-2023 Bacteria Auto (Urine sed) [#/Area] 1+ Abnormal NONE SEEN /HPF [facility] Epithelial cells.squamous Auto (Urine sed) [#/Area] NONE Reference range not established. /HPF [facility] Mucus Auto (Urine sed) [#/Area] 1+ Reference range not established. /LPF [facility] RBC Auto (Urine sed) [#/Area] 1-2 NONE, 1-2, 3-5 /HPF [facility] WBC Auto (Urine sed) [#/Area] 11-20 Abnormal 1-5, NONE /HPF [facility] GLUCOSE, BLOOD (POC)on 05-30 Glucose [Mass/Vol] 126 mg/dL Abnormal 74 - 99 mg/dL [facility] HEMOGLOBIN A1C (POC)on 05-30 HbA1c (Bld) [Mass fraction] 7.6 % Abnormal 4.2 - 5.6 % [facility] CBCon 05-29-2023 Erythrocyte distribution width (RBC) [Ratio] 14.9 % High 11.5 - 14.5 [facility] Comment on above: Performed By: #### C BC #### [address] [address] Hematocrit (Bld) [Volume fraction] 41.7 % Normal 36.0 - 46.0 [facility] Comment on above: Performed By: #### C BC #### [address] [address] Hemoglobin (Bld) [Mass/Vol] 14.2 g/dL Normal 12.0 - 16.0 [facility] Comment on above: Performed By: #### C BC #### [address] [address] MCHC (RBC) [Mass/Vol] 34.1 g/dL Normal 32.0 - 36.0 [facility] Comment on above: Performed By: #### C BC #### [address] [address] MCV (RBC) [Entitic vol] 89 fL Normal 80 - 100 [facility] Comment on above: Performed By: #### C BC #### [address] [address] Platelets (Bld) [#/Vol] 276 10*3/uL Normal 150 - 450 [facility] Comment on above: Performed By: #### C BC #### [address] [address] RBC 4.67 x10E12/L Normal 4.00 - 5.20 [facility] Comment on above: Performed By: #### C BC #### [address] [address] WBC (Bld) [#/Vol] 10.2 10*3/uL Normal 4.4 - 11.3 [facility] Comment on above: Performed By: #### C BC #### [address] [address] COMPREHENSIVE PANELon 2022 Albumin [Mass/Vol] 4.2 g/dL Normal 3.4 - 5.0 [facility] Comment on above: Performed By: #### C BC #### [address] [address] ALP [Catalytic activity/Vol] 88 U/L Normal 33 - 110 [facility] Comment on above: Performed By: #### C BC #### [address] [address] ALT [Catalytic activity/Vol] 25 U/L Normal 7 - 45 [facility] Comment on above: Result Comment: Renetta ents treated with Sulfasalazine may generate falsely decreased results for ALT. Performed By: #### C BC #### [address] [address] Anion gap [Moles/Vol] 11 mmol/L Normal 10 - 20 [facility] Comment on above: Performed By: #### C BC #### [address] [address] AST [Catalytic activity/Vol] 24 U/L Normal 9 - 39 [facility] Comment on above: Performed By: #### C BC #### [place] [id number] Bilirubin [Mass/Vol] 0.8 mg/dL Normal 0.0 - 1.2 [facility] Comment on above: Performed By: #### C BC #### [address] [address] Calcium [Mass/Vol] 9.8 mg/dL Normal 8.6 - 10.3 [facility] Comment on above: Performed By: #### C BC #### [address] [address] Chloride [Moles/Vol] 100 mmol/L Normal 98 - 107 [facility] Comment on above: Performed By: #### C BC #### [address] [address] Creatinine [Mass/Vol] 0.69 mg/dL Normal 0.50 - 1.05 [facility] Comment on above: Performed By: #### C BC #### [address] [address] eGFR FEMALE >90 Normal >90 [facility] Comment on above: Result Comment: CALC ULATIONS OF ESTIMATED GFR ARE PERFORMED USING THE 2020 CKD-EPI STUDY REFIT EQUATION WITHOUT THE RACE VARIABLE FOR THE IDMS-TRACEABLE CREATININE METHODS. https://jasn.asnjournals.org/content/early//ASN.123097 8278 Performed By: #### C BC #### [address] [address] Glucose [Mass/Vol] 197 mg/dL High 74 - 99 [facility] Comment on above: Performed By: #### C BC #### [address] [address] HCO3 (Bld) [Moles/Vol] 26 mmol/L Normal 21 - 32 [facility] Comment on above: Performed By: #### C BC #### [address] [address] Potassium [Moles/Vol] 4.1 mmol/L Normal 3.5 - 5.3 [facility] Comment on above: Performed By: #### C BC #### [address] [address] Protein [Mass/Vol] 7.0 g/dL Normal 6.4 - 8.2 [facility] Comment on above: Performed By: #### C BC #### [address] [address] Sodium [Moles/Vol] 133 mmol/L Low 136 - 145 [facility] Comment on above: Performed By: #### C BC #### [address] [address] Urea nitrogen [Mass/Vol] 6 mg/dL Normal 6 - 23 [facility] Comment on above: Performed By: #### C BC #### [address] [address] HEMOGLOBIN A1Con 05-29-2023 Glucose [Mass/Vol] 174 mg/dL Normal [facility] Comment on above: Performed By: #### H BA1E #### [address] [address] HbA1c (Bld) [Mass fraction] 7.7 % Abnormal [facility] Comment on above: Result Comment: Diag nosis of Diabetes-Adults Non-Diabetic: < or = 5.6% Increased risk for developing diabetes: 5.7-6.4% Diagnostic of diabetes: > or = 6.5% . Monitoring of Diabetes Age (y) Therapeutic Goal (%) Adults: >18 <7.0 Pediatrics: 13-18 <7.5 7-12 <8.0 0- 6 7.5-8.5 [employer]. Diabetes Care 33(S1), Oct 2009. Performed By: #### H BA1E #### [address] [address] Provider Note - ED v3on 05-09 Provider Note - ED v3 Provider Note: Results/Vital Signs: Pediatric Clinical Scoring (CLIFF) is no recent CLIFF charted on this account Chart Review: ED NOTES ED NOTES: 38-year-old female presents the emergency department no acute distress with chief complaint of abnormal blood sugars. States that she is not able to keep her blood sugar under control nor is she able to control her blood pressure. She has not followed up with her primary care provider and her 3d specialist for 2 years so she is not able to get back into see them and she is not sure of the dose of insulin she is supposed to take. She denies other symptoms other than shakiness of the right arm. She reports that her arm starts to shake when her blood sugar gets above 200 and shakes quite violently when she gets about 4 or 500. She came in today because of the high blood pressure and [id number] blood sugar. She denies chest pain or shortness of breath or back pain denies pain or burning with urination constipation or diarrhea fevers or chills nausea vomiting or any other symptoms or concerns. HISTORY OF PRESENTING ILLNESS REINALDO is a 38 year old Female and was seen by me at 29-May-2023 17:40 for a chief complaint of hyperglycemia (Patient ambulatory to ED with c/o hyperglycemia-- states FSBS 400+ x 4 days. c/o feeling shaky, denies N/V. Denies recent illness. States taking Rx insulin but unsure how much to take for such high blood sugar. 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 The historian is the patient. Triage Information: Most recent Vital Sign Value Date Heart Rate (beats/min): 126 05-29-2023 17:40 Respirations (breaths/min): 20 05-29-2023 17:40 SpO2 (%): 99 05-29-2023 17:40 BP Systolic (mm Hg): 130 05-29-2023 17:40 BP Diastolic (mm Hg): 104 05-29-2023 17:40 PAST MEDICAL HISTORY CURRENT OR FORMER SUBSTANCE USE: Tobacco/Nicotine Use: never smoker Alcohol Use: denies Drug Use: denies,ALLERGIES/INTOLE RANCES: Allergy Allergen: Tylenol Extra Strength Type: Drug Reaction: Swelling/Edema Allergen: codeine Type: Drug Reaction: Rash Allergen: Shell Fish Type: Food Reaction: Anaphylaxis HEALTH HISTORY: No documented data. OUTPATIENT MEDICATIONS: Home Medications Review Status for Reconciliation: Incomplete Med Status: Incomplete Medication History Drug Name: BASAGLAR 100 UNIT/ML KWIKPEN Instructions: 10 unit(s) subcutaneous once a day (at bedtime) Drug Name: BUSPIRONE HCL 10 MG TABLET Instructions: 1 tab(s) orally 3 times a day Drug Name: FIASP 100 UNIT/ML FLEXTOUCH Instructions: 8 unit(s) injectable 3 times a day (before meals) Drug Name: FLUDROCORTISONE 0.1 MG TABLET Instructions: 1 tab(s) orally once a day Drug Name: HYDROXYZINE HCL 25 MG TABLET Instructions: 0.5-1 tab(s) orally 3 times a day, As Needed Drug Name: LISINOPRIL 40 MG TABLET Instructions: 1 tab(s) orally once a day Drug Name: PAROXETINE HCL 40 MG TABLET Instructions: 1 tab(s) orally once a day Drug Name: REXULTI 1 MG TABLET Instructions: 1.5 tab(s) orally once a day SIGNIFICANT EVENTS: Past Medical History Description:seizures Description:Diabetes Description:hx dizziness Description:hx syncope Description:hypotension Description:PTSD Description:HTN Description:hemorroids Description:depression Description:mood disorder Description:asthma REVIEW OF SYSTEMS CONSTITUTIONAL: Negative for: anorexia, chills, diaphoresis, fever, malaise, weakness and weight loss CARDIOVASCULAR: POSITIVE for: tachycardia Negative for: bradycardia, chest pain, diaphoresis, edema, irregular rhythm, orthopnea and palpitations RESPIRATORY: Negative for: cough, dyspnea, hemoptysis, pleuritic chest pain and wheezing GASTROINTESTINAL: Negative for: abdominal pain, constipation, diarrhea, nausea and vomiting; change in bowel habits, hematochezia, melena, rectal pain and stool incontinence GENITOURINARY: Negative for: cloudy urine, dysuria, frequency, hematuria, strong smelling urine, urgency, vaginal bleeding and vaginal discharge; MUSCULOSKELETAL: Negative for: back pain, joint pain, neck pain, pain, sensory deficits, stiffness and weakness INTEGUMENTARY: Negative for: abrasions, dryness, hives, itching, jaundice, lesions and lumps; NEUROLOGICAL: Negative for: altered mental status, dizziness, gait abnormality, headache, loss of consciousness, loss of function and low extremity numbness; ENDOCRINE: POSITIVE for: diabetes and polyuria Negative for: change in weight, cold/heat tolerance, hot flashes, polydipsia and thyroid trouble PHYSICAL EXAM CONSTITUTIONAL: Well appearing, well nourished, awake, alert, oriented to person, place, time/situation and in no apparent distress. CARDIOVASCULAR: Normal rate, regular rhythm. Heart sounds S1, S2. No murmurs, rubs or gallops. PMI non-displa (more content not included)... [facility] Risk Screen - Adult Emergenc yon 05-29-2023 Risk Screen - Adult Emergency Preferred Language: Preferred Language: Preferred Language for Discussing Health Care (patient/designee)Alysha ashton Patient Preferred Pharmacy: Patient Preferred Pharmacy Statement: I have reviewed and updated the patient's preferred pharmacy selection for today's visit. Advanced Directives: Advance Directive/DNRno Family Violence Adult: Abuse Screen: Are you or have you been threatened or abused physically, emotionally, or sexually by anyoneno Learning Assessment (Patient): Learning Assessment (Patient): Patient is Able to be Assessed for Learningyes Factors Influencing Readiness to Learnacuteness of illness Factors that Impact Ability to Learnnone Devices/Methods Used to Communicatenone Learning Preferencesverbal instruction; written material Cultural Considerationsnone Developmental Considerationsnone Cheondoism Considerationsnone Learning Assessment (Other Learner): Learning Assessment (Other Learner): Other learner availableno Pressure Injury/TB/Substance: Pressure Injury: Do you have a coughno Smoking Statusformer smoker Alcohol Usedenies Drug Usedenies Admission Risk Screen: Significant IndicatorsComplete CAGE: CAGE: Is this an injured patient at a Trauma Center ([facility]/[place]): no Electronic Signatures: Virgen Hall (KALEN) (Signed 29-May-2023 17:44) Authored: Preferred Language, Patient Preferred Pharmacy, Advanced Directives, Family Violence Adult, Learning Assessment (Patient), Learning Assessment (Other Learner), Pressure Injury/TB/Substance, Pressure Injury, CAGE Last Updated: 29-May-2023 17:44 by Virgen Hall (KALEN) [facility] Triage - EDon 05-29-2023 Triage - ED Quick Triage: Are You no Have You Given In The Last 6 Weeksno Are You Currently Breastfeedingno Chart Review: ARRIVAL INFORMATION Means of Arrival: Ambulatory Mode of Arrival: private vehicle Arrival From: home Accompanied By: self Language: Spoken Language Preferred: Israeli Reading Language Preferred: Israeli Present on Arrival: Device Present on Arrival to ED: no CHIEF COMPLAINT REINALDO WARREN is a Female patient with a chief complaint of hyperglycemia (Patient ambulatory to ED with c/o hyperglycemia-- states FSBS 400+ x 4 days. c/o feeling shaky, denies N/V. Denies recent illness. States taking Rx insulin but unsure how much to take for such high blood sugar. 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 Triage Date/Time: 29-May-2023 17:40 SYLVIA: 3 Pain Rating (0-10): 0 = None Vital Signs: Blood Pressure: 130/104 Mean: 113 Heart Rate: 126 Respiratory Rate: 20 Pulse Oximetry: 99% on room air, no respiratory support. Height: 5 feet 4.00 inches. 162.5 CM Weight: 200.4 pounds. Calculated 90.9 kg. (stated) Calculated BMI (kg/m2): 34.423 Calculated BSA (m2) 2.03 [place] Coma Scale: Best Eye Response: (E4) spontaneous Best Motor Response: (M6) obeys commands Best Verbal Response: (V5) oriented [place] Score: 15 Cough lasting greater than 3 weeks: no Patient immunocompromised related to: N/A Allergies: yes Last menstrual period: 22-May-2023 Patient has homicidal thoughts: no Symptoms Are Negative For: confusion. Risk Screens Suicide Risk Screen In the Past Month: Have you wished you were or wished you could go to sleep and not wake up no In the Past Month: Have you had any actual thoughts of killing yourself no In Your Lifetime: Have you ever done anything, started to do anything, or prepared to do anything to end your life no Hernandez Fall Scale Screening Has the patient fallen before (or is the patient in the ED as a result of a fall) has not had a fall Does the patient have an impaired gait does not have impaired gait Is the patient cognitively impaired not cognitively impaired Interventions: Hernandez Fall Interventions: LOW INTERVENTIONS: *patient oriented to surroundings and call system, * patient/family falls education completed and documented, *patients fall status communicated during bedside handoff, *whiteboard updated, *mode of toileting discussed with patient, *bed in low position with brakes locked, *call light in reach, * non-skid footwear TRAVEL HISTORY Travel History Coronavirus Screening: no exposure or symptoms Travel Exposure History: NO travel to International locations in the past 30 days PAIN Pain Scale Used: CARLEE Pain Rating (0-10): 0 = None Past Medical History: Past Medical History Reviewedyes Electronic Signatures: Virgen Hall (KALEN) (Signed 29-May-2023 17:47) Authored: Quick Triage, Risk Screens, Pain, Arrival, Travel History, Chart Review, Scores, Past Medical History Last Updated: 29-May-2023 17:47 by Virgen Hall (KALEN) Normal [facility] URINALYSISon 05-29-2023 Appearance (U) CLEAR Normal CLEAR [facility] Comment on above: Performed By: #### U A #### [place] [id number] Bilirubin Ql (U) Negative Normal NEGATIVE [facility] Comment on above: Performed By: #### U A #### [place] [address] Color (U) Straw Normal STRAW,YELLOW [facility] Comment on above: Performed By: #### U A #### [place] [id number] Glucose Ql (U) >=500(3+) Abnormal NEGATIVE [facility] Comment on above: Performed By: #### U A #### [address] [address] Hemoglobin Ql (U) Negative Normal NEGATIVE [facility] Comment on above: Performed By: #### U A #### [address] [address] Ketones Ql (U) Negative Normal NEGATIVE [facility] Comment on above: Performed By: #### U A #### [address] [address] Leukocyte esterase Test strip Ql (U) Negative Normal NEGATIVE [facility] Comment on above: Performed By: #### U A #### [address] [address] Nitrite Ql (U) Negative Normal NEGATIVE [facility] Comment on above: Performed By: #### U A #### [address] [address] pH (U) 6.0 [pH] Normal 5.0 - 8.0 [facility] Comment on above: Performed By: #### U A #### [address] [address] Protein Ql (U) Negative Normal NEGATIVE [facility] Comment on above: Performed By: #### U A #### [address] [address] Specific gravity (U) [Rel density] 1.010 Normal 1.005 - 1.035 [facility] Comment on above: Performed By: #### U A #### [address] [address] Urobilinogen (U) [Mass/Vol] mg/dL Normal 0.0 - 1.9 [facility] Comment on above: Performed By: #### U A #### [address] [address] Absolute lymphocyte countOrd ered By: Inocencia Edwards on 05-25-2023 Lymphocytes Auto (Unsp spec) [#/Vol] 2.03 10*3/uL 0.83-4.51 [facility] Basophil percentageOrdered B y: Inocencia Edwards on 05-25-2023 Basophils/100 WBC (Bld) 0.6 % 0-1 [facility] Chloride [Moles/Vol] 101 mmol/L 98-107 [facility] Eosinophils/100 WBC (Bld) 1.0 % 0-5 [facility] Glucose [Mass/Vol] 314 mg/dL 74-106 [facility] Comment on above: Glucose result great er than or equal to 200 mg/dLsuggests DIABETES MELLITUS per A.D.A. criteria. Neutrophils (Bld) [#/Vol] 6.9 10*3/uL 2.0-7.7 [facility] Neutrophils/100 WBC (Bld) 70.5 % 47-70 [facility] Potassium [Moles/Vol] 4.2 mmol/L 3.5-5.[address] [facility] Sodium [Moles/Vol] 133 mmol/L 136-145 [facility] WBC (Bld) [#/Vol] 9.8 10*3/uL 4.4-11.0 [facility] Blood erythrocytes count (nu mber/volume)Ordered By: Inocencia Edwards on 05-25-2023 RBC (Bld) [#/Vol] 4.91 10*6/uL 4.2-5.4 [facility] Blood hemoglobin measurement (mass/volume)Ordered By: Inocencia Edwards on 05-25-2023 Hemoglobin (Bld) [Mass/Vol] 15.0 g/dL 12.0-15.0 [facility] Blood lymphocytes/100 leukoc ytesOrdered By: Inocencia Edwards on 05-25-2023 Lymphocytes/100 WBC (Bld) 20.6 % 19-41 [facility] Blood monocytes/100 leukocyt esOrdered By: Inocencia Edwards on 05-25-2023 Monocytes/100 WBC (Bld) 5.5 % 0-10 [facility] Blood platelet mean volumeOr dered By: Inocencia Edwards on 05-25-2023 Platelet mean volume (Bld) [Entitic vol] 10.6 fL 6.2-12.0 [facility] Determination of erythrocyte mean corpuscular volume (MCV)Ordered By: Inocencia Edwards on 05-25-2023 MCV (RBC) [Entitic vol] 88.2 fL 81-99 [facility] Hematocrit Auto (Bld) [Volum e fraction]Ordered By: Inocencia Edwards on 05-25-2023 Hematocrit (Bld) [Volume fraction] 43.3 % 37-47 [facility] Laboratory - Chemistry and C hemistry - challengeOrdered By: Inocencia Edwards on 05-25-2023 CO2 [Moles/Vol] 26.0 mmol/L 21.0-32.0 [facility] Free T4 [Mass/Vol] 0.91 ng/dL 0.76-1.46 [facility] Magnesium [Mass/Vol] 2.2 mg/dL 1.6-2.6 [facility] Urea nitrogen/Creatinine [Mass ratio] 11.4 mg/mg 10-20 [facility] - Hematology and Cell countsOrdered By: Inocencia Edwards on 05-25-2023 Erythrocyte distribution width (RBC) [Entitic vol] 46.1 fL 35.1-43.9 [facility] Erythrocyte distribution width (RBC) [Ratio] 14.5 % 11.6-14.6 [facility] Immature granulocytes/100 WBC (Bld) 1.800 % 0.0-0.9 [facility] Comment on above: IG% - Immature Granu locytes (promyelocytes, myelocytes and metamyelocytes) > 1% indicates that a LEFT SHIFT is Present. MCH (RBC) [Entitic mass] 30.5 pg 27.0-32.0 [facility] Nucleated RBC/100 WBC (Bld) [Ratio] 0 % 0-5 [facility] MCHC Auto (RBC) [Mass/Vol]Or dered By: Inocencia Edwards on 05-25-2023 MCHC (RBC) [Mass/Vol] 34.6 g/dL 32-[address] [facility] No Panel InformationOrdered By: Inocencia Edwards on 05-25-2023 Estimated GFR (MDRD) Amer 92 mL/min >60 [facility] Comment on above: GFR Calc Estimated GFR (MDRD) Non-Af Amer 76 mL/min >60 [facility] Comment on above: Non- GFR Calc Free Triiodothyronine (T3) pg/dL 2.3 pg/mL 2.18-3.98 [facility] Thyroid Stimulating Hormone (TSH) 2.38 uIU/mL 0.358-3.74 [facility] Platelets bldOrdered By: Tony Edwards on 05-25-2023 Platelets (Bld) [#/Vol] 288 10*3/uL 150-450 [facility] Serum or plasma calcium orly urement (mass/volume)Ordered By: Inocencia Edwards on 05-25-2023 Calcium [Mass/Vol] 10.0 mg/dL 8.5-10.1 [facility] Serum or plasma creatinine m easurement (mass/volume)Ordered By: Inocencia Edwards on 05-25-2023 Creatinine [Mass/Vol] 0.88 mg/dL 0.55-1.[address] [facility] Comment on above: The validity of the calculated GFR & GFRAA in patients over 70 years has not been determined. Clinical correlation is essential. Serum or plasma urea nitroge n measurement (mass/volume)Ordered By: Inocencia Edwards on 05-25-2023 Urea nitrogen [Mass/Vol] 10 mg/dL -18 [facility] Thin prep Papanicolaou smear with manual screeningOrdered By: Inocencia Edwards on 05-25-2023 Thin prep Papanicolaou smear with manual screening 6 5-15 [facility] Absolute lymphocyte countOrd ered By: Dr. Christiansen on 12-26-2022 Lymphocytes Auto (Unsp spec) [#/Vol] 2.08 10*3/uL 0.83-4.51 [facility] Basophil percentageOrdered B y: Dr. Christiansen on 12-26-2022 Basophil percentage 5-10 SEEN /hpf 0-5 [facility] Basophils/100 WBC (Bld) 0.5 % 0-1 [facility] Bilirubin [Mass/Vol] 0.80 mg/dL 0.20-1.00 [facility] Comment on above: For patients on eltr ombopag therapy, use of Dimension [place] TBIL is not recommended. Chloride [Moles/Vol] 104 mmol/L 98-107 [facility] Eosinophils/100 WBC (Bld) 1.1 % 0-5 [facility] Glucose [Mass/Vol] 213 mg/dL 74-106 [facility] Comment on above: Glucose result great er than or equal to 200 mg/dLsuggests DIABETES MELLITUS per A.D.A. criteria. Neutrophils (Bld) [#/Vol] 5.3 10*3/uL 2.0-7.7 [facility] Neutrophils/100 WBC (Bld) 65.7 % 47-70 [facility] Potassium [Moles/Vol] 3.7 mmol/L 3.5-5.[address] [facility] Protein [Mass/Vol] 7.0 g/dL 6.4-8.2 [facility] Sodium [Moles/Vol] 138 mmol/L 136-145 [facility] WBC (Bld) [#/Vol] 8.0 10*3/uL 4.4-11.0 [facility] Bilirubin Test strip Ql (U)O rdered By: Dr. Christiansen on 12-26-2022 Bilirubin Ql (U) Negative Negative [facility] Blood erythrocytes count (nu mber/volume)Ordered By: Dr. Christiansen on 12-26-2022 RBC (Bld) [#/Vol] 4.72 10*6/uL 4.2-5.4 [facility] Blood hemoglobin measurement (mass/volume)Ordered By: Dr. Christiansen on 12-26-2022 Hemoglobin (Bld) [Mass/Vol] 13.2 g/dL 12.0-15.0 [facility] Blood lymphocytes/100 leukoc ytesOrdered By: Dr. Christiansen on 12-26-2022 Lymphocytes/100 WBC (Bld) 25.9 % 19-41 [facility] Blood monocytes/100 leukocyt esOrdered By: Dr. Christiansen on 12-26-2022 Monocytes/100 WBC (Bld) 5.4 % 0-10 [facility] Blood platelet mean volumeOr dered By: Dr. Christiansen on 12-26-2022 Platelet mean volume (Bld) [Entitic vol] 10.3 fL 6.2-12.0 [facility] Determination of erythrocyte mean corpuscular volume (MCV)Ordered By: Dr. Christiansen on 12-26-2022 MCV (RBC) [Entitic vol] 83.1 fL 81-99 [facility] Hematocrit Auto (Bld) [Volum e fraction]Ordered By: Dr. Christiansen on 12-26-2022 Hematocrit (Bld) [Volume fraction] 39.2 % 37-47 [facility] Ketones Test strip Ql (U)Ord ered By: Dr. Christiansen on 12-26-2022 Ketones Ql (U) Negative Negative [facility] Laboratory - Chemistry and C hemistry - challengeOrdered By: Dr. Christiansen on 12-26-2022 ALP [Catalytic activity/Vol] 78 U/L 45-117 [facility] ALT [Catalytic activity/Vol] 23 U/L 13-56 [facility] CO2 [Moles/Vol] 26.0 mmol/L 21.0-32.0 [facility] Globulin (S) [Mass/Vol] 3.4 g/dL 2.2-4.2 [facility] Urea nitrogen/Creatinine [Mass ratio] 8.9 mg/mg 10-20 [facility] Laboratory - Hematology and Cell countsOrdered By: Dr. Christiansen on 12-26-2022 Erythrocyte distribution width (RBC) [Entitic vol] 42.3 fL 35.1-43.9 [facility] Erythrocyte distribution width (RBC) [Ratio] 14.2 % 11.6-14.6 [facility] Immature granulocytes/100 WBC (Bld) 1.400 % 0.0-0.9 [facility] Comment on above: IG% - Immature Granu locytes (promyelocytes, myelocytes and metamyelocytes) > 1% indicates that a LEFT SHIFT is Present. MCH (RBC) [Entitic mass] 28.0 pg 27.0-32.0 [facility] Nucleated RBC/100 WBC (Bld) [Ratio] 0 % 0-5 [facility] MCHC Auto (RBC) [Mass/Vol]Or dered By: Dr. Christiansen on 12-26-2022 MCHC (RBC) [Mass/Vol] 33.7 g/dL 32-[address] [facility] Mucus LM Ql (Urine sed)Order ed By: Dr. Christiansen on 12-26-2022 Mucus Ql (Urine sed) 0 SEEN /hpf [facility] Nitrite Test strip Ql (U)Ord ered By: Dr. Christiansen on 12-26-2022 Nitrite Ql (U) Negative Negative [facility] No Panel InformationOrdered By: Dr. Christiansen on 12-26-2022 Estimated Creatinine Clearance Calc 81.69 ml/min [facility] Estimated GFR (MDRD) Amer 106 mL/min >60 [facility] Comment on above: GFR Calc Estimated GFR (MDRD) Non-Af Amer 88 mL/min >60 [facility] Comment on above: Non- GFR Calc Platelets bldOrdered By: Dr. Christiansen on 12-26-2022 Platelets (Bld) [#/Vol] 228 10*3/uL 150-450 [facility] Protein Test strip Ql (U)Ord ered By: Dr. Christiansen on 12-26-2022 Protein Ql (U) Negative Negative [facility] Serum or plasma albumin orly urement (mass/volume)Ordered By: Dr. Christiansen on 12-26-2022 Albumin [Mass/Vol] 3.6 g/dL 3.2-5.0 [facility] Serum or plasma albumin/glob ulin mass ratioOrdered By: Dr. Christiansen on 12-26-2022 Albumin/Globulin [Mass ratio] 1.1 {ratio} 0.9-2.4 [facility] Serum or plasma calcium orly urement (mass/volume)Ordered By: Dr. Christiansen on 12-26-2022 Calcium [Mass/Vol] 9.1 mg/dL 8.5-10.1 [facility] Serum or plasma creatinine m easurement (mass/volume)Ordered By: Dr. Christiansen on 12-26-2022 Creatinine [Mass/Vol] 0.78 mg/dL 0.55-1.[address] [facility] Comment on above: The validity of the calculated GFR & GFRAA in patients over 70 years has not been determined. Clinical correlation is essential. Serum or plasma urea nitroge n measurement (mass/volume)Ordered By: Dr. Christiansen on 12-26-2022 Urea nitrogen [Mass/Vol] 7 mg/dL 7-18 [facility] Squamous epithelial cells de tection in urine sediment by light microscopyOrdered By: Dr. Christiansen on 12-26-2022 Epithelial cells.squamous LM Ql (Urine sed) 0-5 SEEN /hpf 5-10 [facility] Thin prep Papanicolaou smear with manual screeningOrdered By: Dr. Christiansen on 12-26-2022 Thin prep Papanicolaou smear with manual screening 18 U/L 15-37 [facility] Thin prep Papanicolaou smear with manual screening 8 5-15 [facility] Urine blood detectionOrdered By: Dr. Christiansen on 12-26-2022 RBC Ql (U) Negative Negative [facility] RBC Ql (U) 0 SEEN /hpf 0-5 [facility] Urine clarityOrdered By: Dr. Christiansen on 12-26-2022 Clarity (U) Sl. Cloudy Clear [facility] Urine color determinationOrd ered By: Dr. Christiansen on 12-26-2022 Color (U) Yellow Yellow [facility] Urine glucose detectionOrder ed By: Dr. Christiansen on 12-26-2022 Glucose Ql (U) 1000 mg/dl Normal [facility] Urine leukocyte esterase det ection by dipstickOrdered By: Dr. Christiansen on 12-26-2022 Leukocyte esterase Test strip Ql (U) 100 /ul Negative [facility] Urine pHOrdered By: Dr. Ashley banuelos on 12-26-2022 pH (U) 6.0 [pH] 5.0 - 8.0 [facility] Urine sediment bacteria coun t by microscopy (number/high power field)Ordered By: Dr. Christiansen on 12-26-2022 Bacteria LM.HPF (Urine sed) [#/Area] RARE /hpf None Seen [facility] Urine sediment yeast count b y microscopy (number/high powered field)Ordered By: Dr. Christiansen on 12-26-2022 Yeast LM.HPF (Urine sed) [#/Area] RARE /hpf None Seen [facility] Urine specific gravity measu rementOrdered By: Dr. Christiansen on 12-26-2022 Specific gravity (U) [Rel density] 1.015 1.002-1.030 [facility] Urobilinogen Auto test strip Ql (U)Ordered By: Dr. Christiansen on 12-26-2022 Urobilinogen Ql (U) Normal mg/dl Normal [facility] Basophil percentageOrdered B y: Inocencia Edwards on 12-18-2022 Chloride [Moles/Vol] 104 mmol/L 98-107 [facility] Glucose [Mass/Vol] 201 mg/dL 74-106 [facility] Comment on above: Glucose result great er than or equal to 200 mg/dLsuggests DIABETES MELLITUS per A.D.A. criteria. Potassium [Moles/Vol] 3.6 mmol/L 3.5-5.[address] [facility] Sodium [Moles/Vol] 138 mmol/L 136-145 [facility] - Chemistry and C hemistry - challengeOrdered By: Inocencia Edwards on 12-18-2022 CO2 [Moles/Vol] 26.0 mmol/L 21.0-32.0 [facility] Natriuretic peptide B (Bld) [Mass/Vol] 55.0 pg/mL 0-100 [facility] Urea nitrogen/Creatinine [Mass ratio] 7.4 mg/mg 10-20 [facility] No Panel InformationOrdered By: Inocencia Edwards on 12-18-2022 Estimated GFR (MDRD) Amer 101 mL/min >60 [facility] Comment on above: GFR Calc Estimated GFR (MDRD) Non-Af Amer 84 mL/min >60 [facility] Comment on above: Non- GFR Calc Serum or plasma calcium orly urement (mass/volume)Ordered By: Inocencia Edwards on 12-18-2022 Calcium [Mass/Vol] 8.9 mg/dL 8.5-10.1 [facility] Serum or plasma creatinine m easurement (mass/volume)Ordered By: Inocencia Edwards on 12-18-2022 Creatinine [Mass/Vol] 0.81 mg/dL 0.55-1.[address] [facility] Comment on above: The validity of the calculated GFR & GFRAA in patients over 70 years has not been determined. Clinical correlation is essential. Serum or plasma urea nitroge n measurement (mass/volume)Ordered By: Inocencia Edwards on 12-18-2022 Urea nitrogen [Mass/Vol] 6 mg/dL 04-24 [facility] Thin prep Papanicolaou smear with manual screeningOrdered By: Inocencia Edwards on 12-18-2022 Thin prep Papanicolaou smear with manual screening 8 - [facility] ECG COMPLETEon 12-10-2022 ECG COMPLETE Ventricular Rate : 7 2 BPM Atrial Rate : 71 BPM QRS Duration : 80 ms Q-T Interval : 412 ms QTC Calculation(Bazett) : 451 ms Calculated R [place] : 11 degrees Calculated T [place] : 23 degrees NORMAL SINUS RHYTHM ABNORMAL ECG WHEN COMPARED WITH ECG OF 20-AUG-2022 13:06, VENT. RATE HAS DECREASED BY 37 BPM Confirmed by MD AMBROSIO VINAYAK ([id number]) on 12/12/2022 8:28:57 AM NAME : REINALDO WARREN PID : [id number] : 1985 Gender : Female Race : ORD : [id number] Procedure Date : Dec 10 2022 20:19:45 Edit Date : Dec 12 2022 08:28:58 Diagnosis: NORMAL SINUS RHYTHM ABNORMAL ECG WHEN COMPARED WITH ECG OF 20-AUG-2022 13:06, VENT. RATE HAS DECREASED BY 37 BPM Confirmed by MD AMBROSIO VINAYAK ([id number]) on 12/12/2022 8:28:57 AM Test Reason : Chest Pain Location : 150 : [place] 12 Overread By : MD AMBROSIO VINAYAK Edited By : MD AMBROSIO VINAYAK Referred By : , Acquired by : ANT WORRELL [facility] ED NOTEon 12-10-2022 ED NOTE HNO ID: [id number] Author: Aga Pro RN Service: Emergency Medicine Author Type: Registered Nurse Type: ED Notes Filed: 12/10/2022 9:42 PM Note Text: Patient is alert and oriented, denies any questions/concerns at this time. Patient verbalizes understanding of d/c instructions and follow up care. Patient ambulates from department at this time. Normal [facility] ED NOTE HNO ID: [id number] Author: Aga Pro RN Service: Emergency Medicine Author Type: Registered Nurse Type: ED Notes Filed: 12/10/2022 8:13 PM Note Text: Patient called nurse to bedside states she had another episode states this one was like her normal episodes she has. Patient did urinate during this episode. Bedding changed and warm blanket given. Dr. Sutherland advised. Normal [facility] ED NOTE HNO ID: [id number] Author: Aga Pro RN Service: Emergency Medicine Author Type: Registered Nurse Type: ED Notes Filed: 12/10/2022 7:05 PM Note Text: Patient brought in by EMS for seizure while at [facility]. Family reports patient has seizures at least one a week. Family reports this was a normal seizure for patient but it lasted longer (about 5 mins) Normal [facility] ED PROV NOTEon 12-10-2022 ED PROV NOTE HNO ID: [id number] Author: Breana Sutherland MD Service: Emergency Medicine Author Type: Physician Type: ED Provider Notes Filed: 12/11/2022 8:52 AM Note Text: ED Provider Note Patient Name: Reinaldo Warren : 1985 SERVICE DATE: 12/10/22 History Patient presents with: Seizures Patient presents the emergency department, by her , for concerns over a seizure in [facility] with a possible syncopal episode today. Described as similar to previous episodes, patient went to stand up, she was lowered back to the ground, when she had seizure-like activity, for a couple of minutes. Patient did not hit her head, she had bladder incontinence which is consistent with previous. No recent fevers, close head injury, and no recent changes in medication. Patient notes she however is out of her insulin, and has not taken it for 2 months, and does not check her blood sugars. Following this seizure, patient then stood up, she was weak, dizzy, she was complaining of chest pain, and she appeared to have a repeat very short episode. EMS was called, give Versed x2 for suspected seizure activity. Seizures Seizure activity on arrival: no Seizure type: Grand mal Initial focality: None Episode characteristics: abnormal movements and incontinence Postictal symptoms: somnolence Return to baseline: yes Severity: Mild Timing: Clustered Number of seizures this episode: 2 Progression: Unchanged Recent head injury: No recent head injuries [employer] treatment: Midazolam History of seizures: yes PAST MEDICAL HISTORY Diagnosis Date Diabetes mellitus of mother, complicating , childbirth, or the puerperium, unspecified as to episode of care(648.00) Gestational diabetes Dysthymic disorder Depression (non-psychotic),postpar ashanti Essential hypertension, benign Hemorrhoids 05/19/2011 History of gestational diabetes 10/31/2012 10/31/2012Patient had gestational diabetes with her last 2 pregnancies. She was on glyburide with the that she delivered in 2009. She was insulin-dependent her last . She delivered both of those pregnancies in [place]. Patient is obese. 3 hour G TT ordered by Dr. Jennings. Migraine, unspecified, with intractable migraine, so stated, without mention of status migrainosus Migraine Nipple discharge 02/19/2016 PMH - PAST MEDICAL HISTORY OF DYSLEXIA PMH - PAST MEDICAL HISTORY OF 1988 FRACTURED LEFT LEG PMH - PAST MEDICAL HISTORY OF 01/2007 HOSPITALIZED FOR RUPTURED OVARIAN CYST Psychogenic nonepileptic seizure 10/20/2022 SPINAL HEADACHE WITH DELIVERIES IN Type 2 diabetes mellitus (HCC) Unspecified asthma(493.90) PAST SURGICAL HISTORY Procedure Laterality Date DELIVERY ONLY 2008,10/14/2009 , low cervicalx2 DELIVERY ONLY 06/06/2013 , low transverse COLONOSCOPY FLX DX W/COLLJ SPEC WHEN PFRMD 11/28/2013 Colonoscopy ESOPHAGOGASTRODUODENOSC OPY TRANSORAL DIAGNOSTIC 11/28/2013 EGD HYSTEROSCOPY BX W/WO DANDC 08/14/2019 hysteroscoy DANDC w/ mirena insertion LIG/TRNSXJ FLP TUBE ABDL/VAG APPR UNI/BI 06/06/2013 Tubal ligation REMOVAL OF GALLBLADDER 10/07/2018 [place] REPAIR UMBILICAL HERNIA 06/20/[address] medium mesh [facility] FAMILY HISTORY Problem Relation Age of Onset Hypertension Father Diabetes Father Lipids Father Asthma Mother Hypertension Mother Breast Cancer Mother Diabetes Mother Strabismus Sister Cancer Maternal Grandfather LUNG CANCER Heart Maternal Grandmother SD Cancer Paternal Grandfather THROAT CANCER Breast Cancer Maternal Aunt Breast Cancer Paternal Aunt Coronary Artery Disease No Family History Thyroid No Family History Blood Disease No Family History Blood Clots No Family History Factor 5 Leiden No Family History DVT No Family History Stroke No Family History Systemic Lupus Erythematosus No Family History Multiple Sclerosis No Family History Bipolar disorder No Family History Schizophrenia No Family History Alzheimer's Disease No Family History Dementia No Family History Parkinson?s Disease No Family History Aneurysm No Family History COPD No Family History Kidney Disease No Family History Seizures No Family History Social History Tobacco Use Smoking status: Former Packs/day: 0.50 Years: 10.00 Pack years: 5.00 Types: Cigarettes Quit date: 04/02/2019 Years since quittin.6 Smokeless tobacco: Never Vaping Use Vaping Use: Never used Substance and Sexual Activity Alcohol use: No Drug use: Never Sexual activity: Yes Partners: Male control/protection: Tubal Ligation ALLERGIES Allergen Reactions Augmentin [Amoxicil* Mental Status Change Shellfish Swelling Tylenol #3 [Codeine] Swelling Venom-Honey Bee Swelling Review of Systems Constitutional: Negative for fever. Cardiovascular: Positive for chest pain. Negative for (more content not included)... Normal [facility] Basophil percentageOrdered B y: Abby Joseph on 11-28-2022 Chloride [Moles/Vol] 102 mmol/L 98-107 [facility] Glucose [Mass/Vol] 290 mg/dL 74-106 [facility] Comment on above: Glucose result great er than or equal to 200 mg/dLsuggests DIABETES MELLITUS per A.D.A. criteria. Potassium [Moles/Vol] 4.0 mmol/L 3.5-5.[address] [facility] Sodium [Moles/Vol] 135 mmol/L 136-145 [facility] WBC (Bld) [#/Vol] 6.4 10*3/uL 4.4-11.0 [facility] Blood erythrocytes count (nu mber/volume)Ordered By: Abby Joseph on 11-28-2022 RBC (Bld) [#/Vol] 4.74 10*6/uL 4.2-5.4 [facility] Blood hemoglobin measurement (mass/volume)Ordered By: Abby Joseph on 11-28-2022 Hemoglobin (Bld) [Mass/Vol] 13.6 g/dL 12.0-15.0 [facility] Blood platelet mean volumeOr dered By: Abby Joseph on 11-28-2022 Platelet mean volume (Bld) [Entitic vol] 10.3 fL 6.2-12.0 [facility] Determination of erythrocyte mean corpuscular volume (MCV)Ordered By: Abby Joseph on 11-28-2022 MCV (RBC) [Entitic vol] 83.1 fL 81-99 [facility] Hematocrit Auto (Bld) [Volum e fraction]Ordered By: Abby Joseph on 11-28-2022 Hematocrit (Bld) [Volume fraction] 39.4 % 37-47 [facility] Laboratory - Chemistry and C hemistry - challengeOrdered By: Abby Joseph on 11-28-2022 CO2 [Moles/Vol] 25.0 mmol/L 21.0-32.0 [facility] Urea nitrogen/Creatinine [Mass ratio] 11.4 mg/mg 10-20 [facility] Laboratory - Hematology and Cell countsOrdered By: Abby Joseph on 11-28-2022 Erythrocyte distribution width (RBC) [Entitic vol] 41.1 fL 35.1-43.9 [facility] Erythrocyte distribution width (RBC) [Ratio] 13.2 % 11.6-14.6 [facility] MCH (RBC) [Entitic mass] 28.7 pg 27.0-32.0 [facility] MCHC Auto (RBC) [Mass/Vol]Or dered By: Abby Joseph on 11-28-2022 MCHC (RBC) [Mass/Vol] 34.5 g/dL 32-[address] [facility] No Panel InformationOrdered By: Abby Joseph on 11-28-2022 Estimated GFR (MDRD) Amer 93 mL/min >60 [facility] Comment on above: GFR Calc Estimated GFR (MDRD) Non-Af Amer 77 mL/min >60 [facility] Comment on above: Non- GFR Calc Platelets bldOrdered By: Geo Joseph on 11-28-2022 Platelets (Bld) [#/Vol] 218 10*3/uL 150-450 [facility] Serum or plasma calcium orly urement (mass/volume)Ordered By: Abby Joseph on 11-28-2022 Calcium [Mass/Vol] 9.1 mg/dL 8.5-10.1 [facility] Serum or plasma creatinine m easurement (mass/volume)Ordered By: Abby Joseph on 11-28-2022 Creatinine [Mass/Vol] 0.88 mg/dL 0.55-1.[address] [facility] Comment on above: The validity of the calculated GFR & GFRAA in patients over 70 years has not been determined. Clinical correlation is essential. Serum or plasma urea nitroge n measurement (mass/volume)Ordered By: Abby Joseph on 11-28-2022 Urea nitrogen [Mass/Vol] 10 mg/dL 7-18 [facility] Thin prep Papanicolaou smear with manual screeningOrdered By: Abby Joseph on 11-28-2022 Thin prep Papanicolaou smear with manual screening 8 5-15 [facility] CNOVon 10-20-2022 CNOV Office Visit ([facility]EEP[facility] ) REINALDO WARREN ([id number]) 1985 F Date Time Provider Department 10/20/22 3:00 PM SHARMIN GANDHI During your visit today, we recorded the following information about you: Pulse Blood pressure Weight Height 103/minute 94/68 90.7 kg 1.6 m Sharmin Gandhi MD 10/20/2022 4:49 PM Signed [facility] Patient Name: Reinaldo Warren Date of : 1985 ESTABLISHED EPILEPSY CLINIC NOTE 10/20/2022 3:00 PM Reason for Visit: Hospital Follow Up Clinical Summary: Ms. Warren is a 37 year old right-handed female seen in [facility]. At today's visit, the patient is accompanied by: DIAGNOSIS SUMMARY Paroxysmal Events (Paroxysmal Non-Epileptic Seizures) Etiology: PTSD Associated Conditions: - Psychiatric (PTSD) Previous Neurosurgery: None HISTORY OF PRESENT ILLNESS Handedness: right-handed Age of onset: 28 years Seizure History and Evolution History from inpatient consultation in Aug 2022: 37 year old year old female presents with recurrent convulsions. Timeline history review: 08/29/2013 - MRI BRAIN images in [facility] - outside hospital - reviewed and no evidence of acute changes or pathology 09/16/2013 - Epilepsy note by Dr. Gordon - This is a 28 year old right-handed female who presents with a chief complaint of possible seizures. She is referred by Dr. Galeano after he saw the patient in clinic. The patient states that all started about one week after she delivered her baby in June 06 2013. After that, she was admitted to the hospital after having sudden weakness of the right hemibody and loss of sensation. She was told that she had a stroke but the Brain MRI did not show any abnormalities. Since it was after delivery, a brain MRV was performed and was normal (report available in [facility], images were not available). The patient improved after 4 hours of weakness and numbness of the right hemibody. After that, she started experiencing 2 different events that generally start very similar but evolved slightly different. She describes the first type of event like passing out events. She states that she would start having nausea, then she could vomit and minutes after that she would have a headache, then she would complain of numbness sensation in the right hemibody (described as weakness and pins and needles sensation). Then, suddenly she becomes pale and sweaty and would pass out. According to her relatives, she is completely limp on the floor for about 5 minutes. After that, she would recover consciousness but she is still confused for about 10 minutes. The events occur 3-4 times daily. There is history of loss of control of bladder but not bowel. Not tongue injury. The second event that she calls seizures are quite similar. She describes that all starts with some numbness in the right hemibody, she feels sweaty and hot and after that the patient is not aware of the events. She was told that she would stare unresponsive for about 30 seconds and then falls on the ground having a convulsion. The relatives describe the movements on the ground like an asynchronic movement of the upper and lower extremities associated with back and forth movement of the head. This event lasts 2 to 3 minutes. Then, she wakes up confused for about 30 minutes. She has these type of event twice to three times a week. There is history of loss of control of bladder but not bowel. Not tongue injury. She has previous history of diabetes, depression and hypertension. During her last she was told that she had hypertension and diabetes. The possible stroke was not completely understood and the brain MRI /MRV/MRA were normal (results scan in [facility]). There is no history of status epilepticus. Postictal symptoms include confusion. Possible lateralizing signs by history: focal onset with tingling sensation in the right hemibody. Currently not taking antiseizure medications. She is taking Xanax for anxiety. EEG was ordered and Trileptal started. 10/24/13 - Dr. Saenz follow up note - The patient has returned for follow-up regarding spells. This is a 28 year old right handed female who was last seen by Dr Yang and Dr Gordon on 09/16/13 and has been diagnosed with having spells of unclear etiology. She has been on Trileptal for the last 2 months. There are no complaints of side effects related to medications. Last event with LOC Sep 25. No seizures since reaching target dose of Trileptal. Overall, she is feeling very well and is here for follow-up to discuss her driving privileges. 01/05/2020 - Dr. Camarillo follow up - This is a 34 year old right-handed female with depression and anxiety who presents with a chief complaint of spell recurrence. The onset of spell was (more content not included)... Normal [facility] GLUCOSE, BLOOD (POC)on 09-27 Glucose [Mass/Vol] 253 mg/dL Abnormal 74 - 99 mg/dL [facility] BASIC METABOLIC PANELon 09-07 Anion gap [Moles/Vol] 14 mmol/L Normal 10 - 20 [facility] Comment on above: Performed By: #### C #### [place] [address] Calcium [Mass/Vol] 9.0 mg/dL Normal 8.6 - 10.3 [facility] Comment on above: Performed By: #### C BC #### [address] [address] Chloride [Moles/Vol] 103 mmol/L Normal 98 - 107 [facility] Comment on above: Performed By: #### C BC #### [address] [address] Creatinine [Mass/Vol] 0.66 mg/dL Normal 0.50 - 1.05 [facility] Comment on above: Performed By: #### C BC #### [address] [address] eGFR FEMALE >90 Normal >90 [facility] Comment on above: Result Comment: CALC ULATIONS OF ESTIMATED GFR ARE PERFORMED USING THE 2020 CKD-EPI STUDY REFIT EQUATION WITHOUT THE RACE VARIABLE FOR THE IDMS-TRACEABLE CREATININE METHODS. https://jasn.asnjournals.org/content/early/ASN.043640 3562 Performed By: #### C BC #### [address] [address] Glucose [Mass/Vol] 197 mg/dL High 74 - 99 [facility] Comment on above: Performed By: #### C BC #### [address] [address] HCO3 (Bld) [Moles/Vol] 22 mmol/L Normal 21 - 32 [facility] Comment on above: Performed By: #### C BC #### [address] [address] Potassium [Moles/Vol] 4.0 mmol/L Normal 3.5 - 5.3 [facility] Comment on above: Performed By: #### C BC #### [address] [address] Sodium [Moles/Vol] 135 mmol/L Low 136 - 145 [facility] Comment on above: Performed By: #### C BC #### [address] [address] Urea nitrogen [Mass/Vol] 5 mg/dL Low 6 - 23 [facility] Comment on above: Performed By: #### C BC #### [address] [address] CBC AND DIFFERENTIALon 09-25 % AUTOMATED IMMATURE GRAN 0.8 % Normal 0.0 - 0.9 [facility] Comment on above: Result Comment: Felisa ture Granulocyte Count (IG) includes promyelocytes, myelocytes and metamyelocytes but does not include bands. Percent differential counts (%) should be interpreted in the context of the absolute cell counts (cells/L). Performed By: #### C BCDF #### [address] [address] Basophils (Bld) [#/Vol] 0.05 10*3/uL Normal 0.00 - 0.10 [facility] Comment on above: Performed By: #### C BCDF #### [address] [address] Basophils/100 WBC (Bld) 0.6 % Normal 0.0 - 2.0 [facility] Comment on above: Performed By: #### C BCDF #### [address] [address] Eosinophils (Bld) [#/Vol] 0.12 10*3/uL Normal 0.00 - 0.70 [facility] Comment on above: Performed By: #### C BCDF #### [address] [address] Eosinophils/100 WBC (Bld) 1.6 % Normal 0.0 - 6.0 [facility] Comment on above: Performed By: #### C BCDF #### [address] [address] Erythrocyte distribution width (RBC) [Ratio] 15.0 % High 11.5 - 14.5 [facility] Comment on above: Performed By: #### C BCDF #### [address] [address] Hematocrit (Bld) [Volume fraction] 41.8 % Normal 36.0 - 46.0 [facility] Comment on above: Performed By: #### C BCDF #### [address] [address] Hemoglobin (Bld) [Mass/Vol] 13.9 g/dL Normal 12.0 - 16.0 [facility] Comment on above: Performed By: #### C BCDF #### [address] [address] Lymphocytes (Bld) [#/Vol] 2.40 10*3/uL Normal 1.20 - 4.80 [facility] Comment on above: Performed By: #### C BCDF #### [address] [address] Lymphocytes/100 WBC (Bld) 31.1 % Normal 13.0 - 44.0 [facility] Comment on above: Performed By: #### C BCDF #### [address] [address] MCHC (RBC) [Mass/Vol] 33.3 g/dL Normal 32.0 - 36.0 [facility] Comment on above: Performed By: #### C BCDF #### [address] [address] MCV (RBC) [Entitic vol] 88 fL Normal 80 - 100 [facility] Comment on above: Performed By: #### C BCDF #### [address] [address] Monocytes (Bld) [#/Vol] 0.42 10*3/uL Normal 0.10 - 1.00 [facility] Comment on above: Performed By: #### C BCDF #### [address] [address] Monocytes/100 WBC (Bld) 5.4 % Normal 2.0 - 10.0 [facility] Comment on above: Performed By: #### C BCDF #### [address] [address] Neutrophils (Bld) [#/Vol] 4.67 10*3/uL Normal 1.20 - 7.70 [facility] Comment on above: Result Comment: Perc ent differential counts (%) should be interpreted in the context of the absolute cell counts (cells/L). Performed By: #### C BCDF #### [address] [address] Neutrophils/100 WBC (Bld) 60.5 % Normal 40.0 - 80.0 [facility] Comment on above: Performed By: #### C BCDF #### [address] [address] Platelets (Bld) [#/Vol] 248 10*3/uL Normal 150 - 450 [facility] Comment on above: Performed By: #### C BCDF #### [address] [address] RBC 4.75 x10E12/L Normal 4.00 - 5.20 [facility] Comment on above: Performed By: #### C BCDF #### [address] [address] WBC (Bld) [#/Vol] 7.7 10*3/uL Normal 4.4 - 11.3 [facility] Comment on above: Performed By: #### C BCDF #### [address] [address] [address] HEAD WO CONTRASTon 2021 CT HEAD WO CONTRAST Patient Name: REINALDO WARREN STUDY: CT HEAD WO CONTRAST; 09/25/2022 4:51 pm INDICATION: NEAR SYNCOPE . COMPARISON: None. ACCESSION NUMBER(S): [id number] ORDERING CLINICIAN: CHIDI DUNBAR TECHNIQUE: Noncontrast axial CT scan of head was performed. Angled reformats in brain and bone windows were generated. The images were reviewed in bone, brain, blood and soft tissue windows. FINDINGS: CSF Spaces: The ventricles, sulci and basal cisterns are within normal limits. There is no extraaxial fluid collection. Parenchyma: The potter-white differentiation is intact. There is no mass effect or midline shift. There is no intracranial hemorrhage. Calvarium: The calvarium is unremarkable. Paranasal sinuses and mastoids: Visualized paranasal sinuses and mastoids are clear. IMPRESSION: No evidence of acute cortical infarct or intracranial hemorrhage. No evidence of intracranial hemorrhage or displaced skull fracture. Electronically signed by: CHIDI HUTCHINSON MD Normal [facility] LACTATEon 09-25-2022 Lactate [Moles/Vol] 1.8 mmol/L Normal 0.4 - 2.0 [facility] Comment on above: Result Comment: Melissa puncture immediately after or during the administration of Metamizole may lead to falsely low results. Testing should be performed immediately prior to Metamizole dosing. Performed By: #### C #### [id number] [place] [address] Provider Note - ED v3on 09-07 Provider Note - ED v3 Provider Note: Chart Review: ED NOTES ED NOTES: CC=ALMOST PASSED OUT HPI= this is a patient who presents she was seen just yesterday for similar episode she was at work apparently she had some spots before her eyes and felt like she was going to pass out but did not this last she said only a couple seconds. She thinks is related to some blood pressure medication changes or possibly her sugar although she is also being evaluated for his possible seizure disorder also denies any chest pains no palpitations no irregular heartbeats she did not lose consciousness. She has been seen by neurology for tremors in the past. Is unsure whether she has had an EEG performed PM HX= Past Medical History History of cerebrovascular accident (V12.54) (Z86.73) Surgical History History of Cholecystectomy Family History Family history of diabetes mellitus (V18.0) (Z83.3) Family history of diabetes mellitus (V18.0) (Z83.3) Social History Consumes alcohol occasionally (V49.89) (Z78.9) Has 4 children Stopped smoking between 1 and 5 years ago (V15.82) (Z87.891) Allergi HISTORY OF PRESENTING ILLNESS REINALDO is a 37 year old Female and was seen by me at 25-Sep-2022 14:53 for a chief complaint of syncope (pt states she was at work and had a syncopal episode around 1400 today. then went to brake room and had a seizure. hx epilepsy. stopped taking medication 2 years ago. pt alert and oriented x 4 on arrival. states was here for same thing yesterday)(1). Triage Information: Most recent Vital Sign Value Date Temp (F): 96.6 09-25-2022 14:55 Temp (C): 35.8 09-25-2022 14:55 Heart Rate (beats/min): 116 09-25-2022 14:55 Respirations (breaths/min): 18 09-25-2022 14:55 SpO2 (%): 98 09-25-2022 14:55 BP Systolic (mm Hg): 125 09-25-2022 14:55 BP Diastolic (mm Hg): 110 09-25-2022 14:55 PAST MEDICAL HISTORY ALLERGIES/INTOLERANCES: Allergy Allergen: Tylenol Extra Strength Type: Drug Reaction: Swelling/Edema Allergen: codeine Type: Drug Reaction: Rash Allergen: Shell Fish Type: Food Reaction: Anaphylaxis HEALTH HISTORY: No documented data. OUTPATIENT MEDICATIONS: Home Medications Review Status for Reconciliation: Complete Med Status: Patient Currently Takes Medications Drug Name: BASAGLAR 100 UNIT/ML KWIKPEN Instructions: 10 unit(s) subcutaneous once a day (at bedtime) Drug Name: BUSPIRONE HCL 10 MG TABLET Instructions: 1 tab(s) orally 3 times a day Drug Name: FIASP 100 UNIT/ML FLEXTOUCH Instructions: 8 unit(s) injectable 3 times a day (before meals) Drug Name: FLUDROCORTISONE 0.1 MG TABLET Instructions: 1 tab(s) orally once a day Drug Name: HYDROXYZINE HCL 25 MG TABLET Instructions: 0.5-1 tab(s) orally 3 times a day, As Needed Drug Name: LISINOPRIL 40 MG TABLET Instructions: 1 tab(s) orally once a day Drug Name: PAROXETINE HCL 40 MG TABLET Instructions: 1 tab(s) orally once a day Drug Name: REXULTI 1 MG TABLET Instructions: 1.5 tab(s) orally once a day SIGNIFICANT EVENTS: Past Medical History Description:seizures Description:Diabetes Description:hx dizziness Description:hx syncope Description:hypotension Description:PTSD Description:HTN Description:hemorroids Description:depression Description:mood disorder Description:asthma REVIEW OF SYSTEMS CONSTITUTIONAL: POSITIVE for: malaise Negative for: chills and fever EYES: POSITIVE for: vision changes ENMTEars: Negative for: pain Nose: Negative for: congestion and discharge Throat/Neck: Negative for: neck pain and neck stiffness CARDIOVASCULAR: Negative for: chest pain and palpitations RESPIRATORY: Negative for: cough and dyspnea GASTROINTESTINAL: Negative for: abdominal pain, nausea and vomiting; GENITOURINARY: Negative for: dysuria, frequency and hematuria; MUSCULOSKELETAL: Negative for: back pain, joint pain and neck pain INTEGUMENTARY: Negative for: petechiae and rash NEUROLOGICAL: POSITIVE for: dizziness; Negative for: loss of consciousness; HEME/LYMPH: Negative for: anemia and easy bleeding All other systems reviewed and are negative PHYSICAL EXAM CONSTITUTIONAL: Well appearing, well nourished, awake, alert, oriented to person, place, time/situation and in no apparent distress. Is extremely anxious at this time HENMT: Airway patent, ears with clear tympanic membranes bilaterally. Nasal mucosa clear. Mouth with normal mucosa. Throat has no vesicles, no oropharyngeal exudates and uvula is midline. Face with no lymph node enlargement. No nuchal rigidity no adenopathy no carotid bruits EYES: Clear bilaterally, pupils equal, round and reactive to light. CARDIOVASCULAR: Normal rate, regular rhythm. Heart sounds S1, S2. No murmurs, rubs or gallops. PMI non-displaced. RESPIRATORY: Breath sounds clear and equal bilaterally. GASTROINTESTINAL: Abdomen soft, non-distended, no rebound, no guarding. B (more content not included)... Normal [facility] Risk Screen - Adult Emergenc yon 09-25-2022 Risk Screen - Adult Emergency Preferred Language: Preferred Language: Preferred Language for Discussing Health Care (patient/designee)Alysha ashton Patient Preferred Pharmacy: Patient Preferred Pharmacy Statement: I have reviewed and updated the patient's preferred pharmacy selection for today's visit. Advanced Directives: Advance Directive/DNRno Family Violence Adult: Abuse Screen: Are you or have you been threatened or abused physically, emotionally, or sexually by anyoneno Learning Assessment (Patient): Learning Assessment (Patient): Patient is Able to be Assessed for Learningyes Factors Influencing Readiness to Learnacuteness of illness Factors that Impact Ability to Learnnone Devices/Methods Used to Communicatenone Learning Preferencesaudio Cultural Considerationsnone Developmental Considerationsnone Cheondoism Considerationsnone Learning Assessment (Other Learner): Learning Assessment (Other Learner): Other learner availableno Pressure Injury/TB/Substance: Pressure Injury: Do you have a coughno Smoking Statusnever smoker (1) Alcohol Usedenies(1) Drug Usedenies (1) Admission Risk Screen: Significant IndicatorsComplete CAGE: CAGE: Is this an injured patient at a Trauma Center ([facility]/[place]): no Electronic Signatures: Blanka Link (RN) (Signed 25-Sep-2022 14:59) Authored: Preferred Language, Patient Preferred Pharmacy, Advanced Directives, Family Violence Adult, Learning Assessment (Patient), Learning Assessment (Other Learner), Pressure Injury/TB/Substance, Pressure Injury, CAGE Last Updated: 25-Sep-2022 14:59 by Blanka Link (RN) References: 1. Data Referenced From Provider Note - ED v3 24-Sep-2022 15:31 Normal [facility] TROPONIN I, HIGH SENSITIVITY on 09-25-2022 TROPONIN I, HIGH SENSITIVITY 3 ng/L Normal 0 - 13 [facility] Comment on above: Result Comment: . Less than 99th percentile of normal range cutoff- Female and children under 18 years old <14 ng/L; Male <21 ng/L: Negative Repeat testing should be performed if clinically indicated. . Female and children under 18 years old 14-50 ng/L; Male 21-50 ng/L: Consistent with possible cardiac damage and possible increased clinical risk. Serial measurements may help to assess extent of myocardial damage. . >50 ng/L: Consistent with cardiac damage, increased clinical risk and myocardial infarction. Serial measurements may help assess extent of myocardial damage. . NOTE: Children less than 1 year old may have higher baseline troponin levels and results should be interpreted in conjunction with the overall clinical context. . NOTE: Troponin I testing is performed using a different testing methodology at [facility] than at other [facility] hospitals. Direct result comparisons should only be made within the same method. Performed By: #### C #### [facility] [address] [place] [address] Triage - EDon 09-25-2022 Triage - ED Quick Triage: Are You no Are You Currently Breastfeedingno Chart Review: TREATMENT PRIOR TO ARRIVAL Treatment Prior to Arrival: Prior to arrival in the Emergency Department REINALDO WARREN had treatment conducted by EMS which included the following; saline lock. ARRIVAL INFORMATION Means of Arrival: Ambulatory Mode of Arrival: ambulance Agency Name: [facility] Arrival From: home Language: Spoken Language Preferred: Israeli CHIEF COMPLAINT REINALDO WARREN is a Female patient with a chief complaint of syncope (pt states she was at work and had a syncopal episode around 1400 today. then went to brake room and had a seizure. hx epilepsy. stopped taking medication 2 years ago. pt alert and oriented x 4 on arrival. states was here for same thing yesterday). Triage Date/Time: 25-Sep-2022 14:55 SYLVIA: 3 Pain Rating (0-10): 0 = None Vital Signs: Temperature: 96.6F ( 35.8C) Blood Pressure: 125/110 Mean: Heart Rate: 116 Respiratory Rate: 18 Pulse Oximetry: 98% on room air, no respiratory support. Height: 5 feet 3.00 inches. 160.0 CM Weight: 200.6 pounds. Calculated 91.0 kg. (stated) Calculated BMI (kg/m2): 35.546 Calculated BSA (m2) 2.01 [place] Coma Scale: Best Eye Response: (E4) spontaneous Best Motor Response: (M6) obeys commands Best Verbal Response: (V5) oriented Rosa Score: 15 Allergies: yes Last menstrual period: 24-Sep-2022 Patient has homicidal thoughts: no Risk Screens Suicide Risk Screen In the Past Month: Have you wished you were or wished you could go to sleep and not wake up no In the Past Month: Have you had any actual thoughts of killing yourself no In Your Lifetime: Have you ever done anything, started to do anything, or prepared to do anything to end your life no Hernandez Fall Scale Screening Has the patient fallen before (or is the patient in the ED as a result of a fall) has not had a fall Does the patient have an impaired gait does not have impaired gait Is the patient cognitively impaired not cognitively impaired Interventions: Hernandez Fall Interventions: LOW INTERVENTIONS: *patient oriented to surroundings and call system, * patient/family falls education completed and documented, *patients fall status communicated during bedside handoff, *whiteboard updated, *mode of toileting discussed with patient, *bed in low position with brakes locked, *call light in reach, * non-skid footwear TRAVEL HISTORY Travel History Coronavirus Screening: no exposure or symptoms Travel Exposure History: NO travel to International locations in the past 30 days PAIN Pain Scale Used: CARLEE Pain Rating (0-10): 0 = None Past Medical History: Past Medical History Reviewedyes asthma: Past Medical History, Active mood disorder: Past Medical History, Active depression: Past Medical History, Active hemorroids: Past Medical History, Active HTN: Past Medical History, Active PTSD: Past Medical History, Active hypotension: Past Medical History, Active hx syncope: Past Medical History, Active hx dizziness: Past Medical History, Active Diabetes: Past Medical History, Active seizures: Past Medical History, Active Electronic Signatures: Blanka Link (RN) (Signed 25-Sep-2022 14:59) Authored: Quick Triage, Risk Screens, Pain, Arrival, Pre-arrival, Travel History, Chart Review, Past Medical History Last Updated: 25-Sep-2022 14:59 by Blanka Link (KALEN) [facility] URINALYSIS WITH CULTURE IF I NDICATEDon 09-25-2022 Appearance (U) Canceled [facility] Comment on above: Order Comment: TEST URINALYSIS WITH CULTURE IF INDICATED WAS CANCELLED, 09/24/2022 22:07 discharged. Performed By: #### U ARFX #### [id number] ASCORBIC ACID Canceled [facility] Comment on above: Order Comment: TEST URINALYSIS WITH CULTURE IF INDICATED WAS CANCELLED, 09/24/2022 22:07 discharged. Result Comment: Conc entrations > = 20 mg/dL of ascorbic acid can be expected to cause strong interference in the reactions testing for glucose, nitrite and blood. It is recommended to discontinue Vitamin C administration and retest in 10 hours. Performed By: #### U ARFX #### [id number] Bilirubin Ql (U) Canceled [facility] Comment on above: Order Comment: TEST URINALYSIS WITH CULTURE IF INDICATED WAS CANCELLED, 09/24/2022 22:07 discharged. Performed By: #### U ARFX #### [address] [address] Color (U) Canceled [facility] Comment on above: Order Comment: TEST URINALYSIS WITH CULTURE IF INDICATED WAS CANCELLED, 09/24/2022 22:07 discharged. Performed By: #### U ARFX #### [address] [place] [address] Glucose Ql (U) Canceled [facility] Comment on above: Order Comment: TEST URINALYSIS WITH CULTURE IF INDICATED WAS CANCELLED, 09/24/2022 22:07 discharged. Performed By: #### U ARFX #### [address] [address] Hemoglobin Ql (U) Canceled [facility] Comment on above: Order Comment: TEST URINALYSIS WITH CULTURE IF INDICATED WAS CANCELLED, 09/24/2022 22:07 discharged. Performed By: #### U ARFX #### [id number] Ketones Ql (U) Canceled [facility] Comment on above: Order Comment: TEST URINALYSIS WITH CULTURE IF INDICATED WAS CANCELLED, 09/24/2022 22:07 discharged. Performed By: #### U ARFX #### [id number] Leukocyte esterase Test strip Ql (U) Canceled [facility] Comment on above: Order Comment: TEST URINALYSIS WITH CULTURE IF INDICATED WAS CANCELLED, 09/24/2022 22:07 discharged. Performed By: #### U ARFX #### [address] [address] Nitrite Ql (U) Canceled [facility] Comment on above: Order Comment: TEST URINALYSIS WITH CULTURE IF INDICATED WAS CANCELLED, 09/24/2022 22:07 discharged. Performed By: #### U ARFX #### [address] [address] pH Canceled [facility] Comment on above: Order Comment: TEST URINALYSIS WITH CULTURE IF INDICATED WAS CANCELLED, 09/24/2022 22:07 discharged. Performed By: #### U ARFX #### [address] [address] Protein Ql (U) Canceled [facility] Comment on above: Order Comment: TEST URINALYSIS WITH CULTURE IF INDICATED WAS CANCELLED, 09/24/2022 22:07 discharged. Performed By: #### U ARFX #### [id number] Specific gravity (U) [Rel density] Canceled Normal [facility] Comment on above: Order Comment: TEST URINALYSIS WITH CULTURE IF INDICATED WAS CANCELLED, 09/24/2022 22:07 discharged. Performed By: #### U ARFX #### [id number] UROBILINOGEN Canceled Normal [facility] Comment on above: Order Comment: TEST URINALYSIS WITH CULTURE IF INDICATED WAS CANCELLED, 09/24/2022 22:07 discharged. Performed By: #### U ARFX #### [id number] CBC AND DIFFERENTIALon 09-24 % AUTOMATED IMMATURE GRAN 0.8 % Normal 0.0 - 0.9 [facility] Comment on above: Result Comment: Felisa ture Granulocyte Count (IG) includes promyelocytes, myelocytes and metamyelocytes but does not include bands. Percent differential counts (%) should be interpreted in the context of the absolute cell counts (cells/L). Performed By: #### G MARCIA #### [id number] Basophils (Bld) [#/Vol] 0.05 10*3/uL Normal 0.00 - 0.10 [facility] Comment on above: Performed By: #### G MARCIA #### [address] [address] Basophils/100 WBC (Bld) 0.5 % Normal 0.0 - 2.0 [facility] Comment on above: Performed By: #### G MARCIA #### [address] [address] Eosinophils (Bld) [#/Vol] 0.09 10*3/uL Normal 0.00 - 0.70 [facility] Comment on above: Performed By: #### G MARCIA #### [address] [address] Eosinophils/100 WBC (Bld) 0.9 % Normal 0.0 - 6.0 [facility] Comment on above: Performed By: #### G MARCIA #### [address] [address] Erythrocyte distribution width (RBC) [Ratio] 15.1 % High 11.5 - 14.5 [facility] Comment on above: Performed By: #### G MARCIA #### [address] [address] Hematocrit (Bld) [Volume fraction] 46.1 % High 36.0 - 46.0 [facility] Comment on above: Performed By: #### G MARCIA #### [address] [address] Hemoglobin (Bld) [Mass/Vol] 15.6 g/dL Normal 12.0 - 16.0 [facility] Comment on above: Performed By: #### G MARCIA #### [address] [address] Lymphocytes (Bld) [#/Vol] 2.57 10*3/uL Normal 1.20 - 4.80 [facility] Comment on above: Performed By: #### G MARCIA #### [address] [address] Lymphocytes/100 WBC (Bld) 26.4 % Normal 13.0 - 44.0 [facility] Comment on above: Performed By: #### G MARCIA #### [address] [address] MCHC (RBC) [Mass/Vol] 33.8 g/dL Normal 32.0 - 36.0 [facility] Comment on above: Performed By: #### G MARCIA #### [address] [address] MCV (RBC) [Entitic vol] 86 fL Normal 80 - 100 [facility] Comment on above: Performed By: #### G MARCIA #### [address] [address] Monocytes (Bld) [#/Vol] 0.62 10*3/uL Normal 0.10 - 1.00 [facility] Comment on above: Performed By: #### G MARCIA #### [address] [address] Monocytes/100 WBC (Bld) 6.4 % Normal 2.0 - 10.0 [facility] Comment on above: Performed By: #### G MARCIA #### [address] [address] Neutrophils (Bld) [#/Vol] 6.33 10*3/uL Normal 1.20 - 7.70 [facility] Comment on above: Result Comment: Perc ent differential counts (%) should be interpreted in the context of the absolute cell counts (cells/L). Performed By: #### G MARCIA #### [address] [address] Neutrophils/100 WBC (Bld) 65.0 % Normal 40.0 - 80.0 [facility] Comment on above: Performed By: #### Seble MARCIA #### [address] [address] Platelets (Bld) [#/Vol] 332 10*3/uL Normal 150 - 450 [facility] Comment on above: Performed By: #### Seble MARCIA #### [address] [address] RBC 5.37 x10E12/L High 4.00 - 5.20 [facility] Comment on above: Performed By: #### Seble MARCIA #### [address] [address] WBC (Bld) [#/Vol] 9.7 10*3/uL Normal 4.4 - 11.3 [facility] Comment on above: Performed By: #### G MARCIA #### [address] [address] COMPREHENSIVE PANELon 2021 Albumin [Mass/Vol] 4.6 g/dL Normal 3.4 - 5.0 [facility] Comment on above: Performed By: #### C MP #### [address] [address] ALP [Catalytic activity/Vol] 93 U/L Normal 33 - 110 [facility] Comment on above: Performed By: #### C MP #### [address] [address] ALT [Catalytic activity/Vol] 18 U/L Normal 7 - 45 [facility] Comment on above: Result Comment: Renetta ents treated with Sulfasalazine may generate falsely decreased results for ALT. Performed By: #### C MP #### [address] [address] Anion gap [Moles/Vol] 16 mmol/L Normal 10 - 20 [facility] Comment on above: Performed By: #### C MP #### [address] [address] AST [Catalytic activity/Vol] 16 U/L Normal 9 - 39 [facility] Comment on above: Performed By: #### C MP #### [address] [address] Bilirubin [Mass/Vol] 0.9 mg/dL Normal 0.0 - 1.2 [facility] Comment on above: Performed By: #### C MP #### [address] [address] Calcium [Mass/Vol] 9.7 mg/dL Normal 8.6 - 10.3 [facility] Comment on above: Performed By: #### C MP #### [address] [address] Chloride [Moles/Vol] 97 mmol/L Low 98 - 107 [facility] Comment on above: Performed By: #### C MP #### [address] [address] Creatinine [Mass/Vol] 0.84 mg/dL Normal 0.50 - 1.05 [facility] Comment on above: Performed By: #### C MP #### [address] [address] eGFR FEMALE >90 Normal >90 [facility] Comment on above: Result Comment: CALC ULATIONS OF ESTIMATED GFR ARE PERFORMED USING THE 2020 CKD-EPI STUDY REFIT EQUATION WITHOUT THE RACE VARIABLE FOR THE IDMS-TRACEABLE CREATININE METHODS. https://jasn.asnjournals.org/content//ASN.821383 4193 Performed By: #### C MP #### [address] [address] Glucose [Mass/Vol] 404 mg/dL High 74 - 99 [facility] Comment on above: Performed By: #### C MP #### [address] [address] HCO3 (Bld) [Moles/Vol] 23 mmol/L Normal 21 - 32 [facility] Comment on above: Performed By: #### C MP #### [address] [address] Potassium [Moles/Vol] 4.3 mmol/L Normal 3.5 - 5.3 [facility] Comment on above: Performed By: #### C MP #### [address] [address] Protein [Mass/Vol] 7.6 g/dL Normal 6.4 - 8.2 [facility] Comment on above: Performed By: #### C MP #### [address] [address] Sodium [Moles/Vol] 132 mmol/L Low 136 - 145 [facility] Comment on above: Performed By: #### C MP #### [address] [address] Urea nitrogen [Mass/Vol] 6 mg/dL Normal 6 - 23 [facility] Comment on above: Performed By: #### C MP #### [address] [address] [address] ANGIO CHEST FOR PEon 09-07 CT ANGIO CHEST FOR PE Patient Name: REINALDO WARREN STUDY: CT ANGIO CHEST FOR PE; 09/24/2022 5:11 pm INDICATION: syncope . COMPARISON: None. ACCESSION NUMBER(S): [id number] ORDERING CLINICIAN: ELIDIA HAMILTON TECHNIQUE: Helical data acquisition of the chest was obtained with the intravenous injection of 90 cc Omnipaque 350.. Images were reformatted in coronal and sagittal planes. Axial and coronal MIP images were created and reviewed. FINDINGS: POTENTIAL LIMITATIONS OF THE STUDY: None HEART AND VESSELS: No discrete filling defects within the main pulmonary artery or its branches. Main pulmonary artery and its branches are normal in caliber. The thoracic aorta is normal in course and caliber. There are no atherosclerotic calcifications. There is normal luminal opacification without evidence for dissection. No coronary artery calcifications are seen.The study is not optimized for evaluation of coronary arteries. The cardiac chambers are not enlarged. No evidence of pericardial effusion. MEDIASTINUM AND AUDREY, LOWER NECK AND AXILLA: The visualized thyroid gland is within normal limits. No evidence of thoracic lymphadenopathy by CT criteria. Esophagus appears within normal limits as seen. LUNGS AND AIRWAYS: There are several tiny calcified lung nodules from prior granulomatous disease. There is no pleural effusion or pneumothorax or airspace infiltrate. In the anteromedial lingula or there is a tiny noncalcified nodule with a measurement of 5 mm. No other significant focal lung opacities are evident. The large airways appear intact. UPPER ABDOMEN: Surgical absence of the gallbladder. Likely steatosis/steatohepatit is.. CHEST WALL AND OSSEOUS STRUCTURES: There are no suspicious osseous lesions. Multilevel degenerative changes are present IMPRESSION: 1. There is no CT finding of aortic dissection or acute pulmonary embolus. 2. Noncalcified 5 mm lingular nodule. Follow-up per Fleischner guidelines. 3. 2017 Fleischner Society Guidelines for Incidental Nodules Dimensions are average of long and short axis, rounded to the nearest millimeter. Consider all relevant risk factors. SOLID NODULES: SINGLE NODULE: Low risk: <6 mm No routine followup 6-[address] at 6-12 months, then consider CT at 18-24 months >[address] at 3 months, PET/CT, or tissue sampling Nodules <6 mm do not require routine followup, but certain patients at high risk with suspicious nodule morphology, upper lobe location, or both may warrant 12-month followup. High risk: <[address] at 12 months 6-[address] at 6-12 months, then CT at 18-24 months >[address] at 3 months, PET/CT, or tissue sampling Nodules <6mm do not require routine folloup, but certain patients at high risk with suspicious nodule morphology, upper lobe location, or both may warrant 12-month followup (recommendation 1A) MULTIPLE NODULES: Low risk: <6 mm No routine followup 6-[address] at 3-6 months, then consider CT at 18-24 months >[address] at 3-6 months, then consider CT at 18-24 months Use most suspicious nodule as guide to management. Followup intervals may vary according to size and risk (recommendation 2A). High risk: <[address] at 12 months 6-[address] at 3-6 months, then at 18-24 months >[address] at 3-6 months, then at 18-24 months Use most suspicious nodule as guide to management. Followup intervals may vary according to size and risk (recommendation 2A . Electronically signed by: JOSE LUIS WINCHESTER MD [facility] Covid 19 Resultson 2 SARS-CoV-2 (COVID-19) RNA TAMMY+probe Ql (Unsp spec) NEGATIVE COVID-19 Test Coronaviruses are common world-wide and are the cause of many common colds. SARS-COV2 is a new coronavirus that began circulating worldwide in 2019 so we are calling it COVID-19. It has been estimated that four out of five patients with COVID-19 will recover at home without the need for medical attention. Symptoms of COVID-19 may include cough, fever, shortness of breath, loss of taste or smell and other flu-like symptoms including chills, sore muscles, sore throat, and headache. Severe illness is more common in older people and people with other health problems such as high blood pressure, obesity, and immune system problems. If the test is positive, you have COVID-19. You will be contacted by the ordering physicians office and instructed to remain on home isolation, in accordance with CDC guidelines. You may also be contacted by the [facility] to see if any of your close contacts may have been exposed to the virus and need to quarantine. If the test is negative, you likely do not have COVID-19 at this time, but you still may have a different illness that can spread to other people (like Influenza, or the Flu) and could still be at risk for getting COVID-19. We recommend that you stay away from other people to limit the spread of illness until your symptoms are improving and you are fever-free for 24 hours without the use of fever lowering medications such as acetaminophen or ibuprofen. No test is 100% accurate so if you are still concerned you may have COVID-19, talk to your doctor about the need to continue to stay away from others. Medicines Unless your provider told you not to use the following: Acetaminophen (Tylenol and others) is generally safe. Anti-inflammatory medications, such as Ibuprofen (Advil or Motrin) or Naproxen (Aleve) can also be used. Dvrg-ufq-dccrvdn cough and cold medicines can be used according to the instructions on the package. Some mana-fwk-olfbwwr medicines also contain acetaminophen. Make sure you are not taking more than your recommended dose. For those not hospitalized, there is no specific treatment available for this illness. Antibiotics do not treat Coronaviruses. Follow-Up Follow up with your doctor by scheduling a virtual visit or consider follow-up at one of our urgent care fever clinics. If you are having difficulty breathing, or are very weak and having difficulty standing, this is a medical emergency. Call 911 or have someone take you to the nearest emergency room immediately. If possible, wear a facemask. Additional guidance from the CDC for patients who tested POSITIVE for COVID-19 How to isolate: Isolate yourself in a specific room at home and limit your contact with others. Use a separate bathroom from other members of the household, when possible. Leave home only to get essential medical care. Do not go to work, school or public areas. Avoid using public transportation, ride-sharing, or taxis. Restrict contact with pets and other animals. If you must care for your pet or be around animals while you are sick, wash your hands before and after your interaction and wear a facemask. Make sure that shared spaces in the home have good airflow, such as by an air conditioner or an opened window, weather permitting. Personal Hygiene Procedures: Wear a face mask when in the same room as other people or pets. If a face mask interferes with your breathing, others should wear a mask when sharing space with you. Frequent hand-washing: wash your hands with soap and water for at least 20 seconds. If soap and water are not available, use alcohol-based hand cherry pitter. Avoid touching your eyes, nose, and mouth with unwashed hands. Household Hygiene Procedures: Avoid sharing personal household items such as dishes, glassware, cups, eating utensils, towels or bedding with other people or pets in your home. After use, these items should be washed with soap and hot water. Disinfect all high-touch surfaces every day with antibacterial cleaning solutions such as Lysol wipes, bleach, cleansers, etc. High-touch surfaces include tabletops, doorknobs, bathroom fixtures, toilets, phones, keyboards, tablets and bedside tables. Immediately clean any surfaces that may have blood, poop or body fluids on them, using antibacterial cleaning solutions such as Lysol wipes, bleach, cleansers, etc. If clothing or bedding come into contact with blood, poop or body fluids, they should be washed immediately. Follow the directions on the laundry detergent and clothing labels but hot water is recommended when possible. Stopping home isolation precautions: If possible, consult your doctor before stopping home isolation precautions. According to the CDC, you can discontinue home isolation precautions when you have met both of these criteria: Your fever and respiratory symptoms have been gone for 24 maricarmen (more content not included)... Normal [facility] D-DIMER, VTE EXCLUSIONon D-DIMER, VTE EXCLUSION 531 ng/mL FEU Abnormal < or = 500 [facility] Comment on above: Result Comment: The VTE Exclusion D-Dimer assay is reported in ng/mL Fibrinogen Equivalent Units (FEU). Per manufacturers instructions for use, a value of less than 500 ng/mL (FEU) may help to exclude DVT or PE in outpatients when the assay is used with a clinical pretest probability assessment. (AEMR must utilize and document eCalc Wells Score Deep Vein Thrombosis Risk for DVT exclusion only; Emergency Department should utilize Guidelines for Emergency Department Use of the VTE Exclusion D-Dimer and Clinical Pretest probability assessment model for DVT or PE exclusion.) Performed By: #### D IMEX #### [place] [address] INFLUENZA A/B, COVID 2019 PC R,SYMPTOMATICon 09-24-2022 INFLUENZA A, PCR Not detected Normal Not Detected [facility] Comment on above: Result Comment: Resp iratory virus testing is performed routinely by PCR for Influenza A/B and RSV. Not Detected results do not preclude Influenza A/B or RSV infections since the adequacy of sample collection or low viral burden may impact the clinical sensitivity of this test method. Performed By: #### C OINP #### [place] [address] INFLUENZA B, PCR Not detected Normal Not Detected [facility] Comment on above: Result Comment: Resp iratory virus testing is performed routinely by PCR for Influenza A/B and RSV. Not Detected results do not preclude Influenza A/B or RSV infections since the adequacy of sample collection or low viral burden may impact the clinical sensitivity of this test method. Performed By: #### C OINP #### [place] [address] SARS-CoV-2 (COVID-19) RNA TAMMY+probe Ql (Unsp spec) Not detected Normal Not Detected [facility] Comment on above: Result Comment: . This test has received FDA Emergency Use Authorization (EUA) and has been verified by [facility]. This test is only authorized for the duration of time that circumstances exist to justify the authorization of the emergency use of in vitro diagnostic tests for the detection of SARS-CoV-2 virus and/or diagnosis of COVID-19 infection under section 564(b)(1) of the Act, 21 U.S.C. 360bbb-3(b)(1), unless the authorization is terminated or revoked sooner. [facility] is certified under CLIA-88 as qualified to perform high complexity testing. Testing is performed in the [facility] laboratory located at [address] [place] [address]. SARS-CoV-2/Flu/RSV Multiplex Test: Fact sheet for providers: https://www.fda.gov/media/245915/download Fact sheet for patients: https://www.fda.gov/media/361033/download Performed By: #### C OINP #### [place] [address] Lab Specimen Source Nasal, Nasopharyngeal Normal [facility] Comment on above: Performed By: #### C OINP #### [place] [address] Provider Note - ED v3on 12- Provider Note - ED v3 Provider Note: Chart Review: ED NOTES ED NOTES: Source of Information: Patient. EMR was reviewed for previous records. HPI: Syncope. This 37-year-old white female states that for the past 2 days she has had multiple episodes of syncope she states that every time she stands up or goes to stand position she feels lightheaded and her vision becomes dark and she sees stars in her vision and sometimes she is completely passes out as well. She denies any injuries from the syncopal episodes. She states that she has had similar symptoms in the past about 2 months ago but has been fine till 2 days ago. Patient states that last time she was on Lexapro she had these syncopal episodes and we have put her back on this medication recently. Patient uncertain what her resting heart rate normally is. She denies any associated chest pain or shortness of breath with couple episodes. She states that nothing makes her symptoms better. PMH: Type 2 diabetes, epilepsy, hypertension, depression PSH: Denies Social Hx: The patient denies any use of tobacco, alcohol or illicit drugs. Fam: MEDS: Noted in the EMR. ALLERGIES: Codeine, sulfa PHYSICAL EXAM: General: Patient alert, awake, oriented X3, appears to be in no obvious distress, nontoxic, cooperative Skin: Warm. Dry. Intact. No rash. Eyes: PEARTLA, EOMIs intact, sclera white, conjunctiva clear HEENT: Atraumatic. Normo-cephalic. Oral and nasal mucosa pink and moist. Neck: Supple without meningismus, no lymphadenopathy. CV: Heart is tachycardic rate without murmur Respiratory: Nonlabored breathing. There are no retractions or tachypnea. Lungs are clear to auscultation bilaterally. GI: Soft, nontender, without gross distention, bowel sounds present in all 4 quadrants. There is no pulsatile masses. There is no CVA tenderness. No rebound, rigidity or guarding. MUSC: There is no joint swelling or bony tenderness on exam. Neuro: Cranial nerves II - XII grossly intact. No focal neurologic deficits are noted on exam. Lower extremities: There is no peripheral edema bilaterally, negative Homans sign. No palpable cords. Distal pulses are +2/4 and present in both lower extremities. Psych: Maintains eye contact. Cooperative. ED course: EKG was interpreted by myself at 1457 reveals sinus tachycardia at 131 bpm there is evidence of LVH with nonspecific ST-T wave changes with Q waves in the anterior precordial leads. The AK interval is 146 ms. The QRS duration 72 ms. QTc is 434 ms. [place] is 2 degrees. The patient was seen and evaluated due to syncope and orthostasis. Patient was ordered IV fluids with improvement of her resting tachycardia and her orthostatic vital signs. Patient had blood work performed that revealed normal hemoglobin 15.6. Sodium was slightly low at 132. TSH was normal. D-dimer was high at 531 and subsequently a CTA of the chest was performed this revealed a noncalcified lingular nodule in her lung. I did have a detailed discussion with the patient concerning this lung nodule the CTA otherwise is negative for acute abnormality. The patient was discharged home in stable improved condition she was referred back to her primary care doctor for follow-up. This chart was dictated with the use of duuin software within the framework of the current electronic medical records software. Attempts were made to edit in real time, given time constraints there is the potential for inaccuracies in my dictation. Elidia Hamilton, DO HISTORY OF PRESENTING ILLNESS REINALDO is a 37 year old Female and was seen by me at 24-Sep-2022 14:57 for a chief complaint of syncope (Patient states she has been having episodes of blacking out since yesterday, states when I stand up everything goes black, sometimes I fall down and other times I just have to hold onto something until it passes. States I think its from the lexapro I take for my blood pressure.). Triage Information: Most recent Vital Sign Value Date Temp (F): 97.6 09-24-2022 15:03 Temp (C): 36.4 09-24-2022 15:03 Heart Rate (beats/min): 128 09-24-2022 15:03 Respirations (breaths/min): 17 09-24-2022 15:03 SpO2 (%): 99 09-24-2022 15:03 BP Systolic (mm Hg): 136 09-24-2022 15:03 BP Diastolic (mm Hg): 108 09-24-2022 15:03 PAST MEDICAL HISTORY CURRENT OR FORMER SUBSTANCE USE: Tobacco/Nicotine (more content not included)... Normal [facility] Risk Screen - Adult Emergenc yon 09-24-2022 Risk Screen - Adult Emergency Preferred Language: Preferred Language: Preferred Language for Discussing Health Care (patient/designee)Alysha ashton Patient Preferred Pharmacy: Patient Preferred Pharmacy Statement: I have reviewed and updated the patient's preferred pharmacy selection for today's visit. Advanced Directives: Advance Directive/DNRno Advance Directive Information Givenpatient/family declined Family Violence Adult: Abuse Screen: Are you or have you been threatened or abused physically, emotionally, or sexually by anyoneno Learning Assessment (Patient): Learning Assessment (Patient): Patient is Able to be Assessed for Learningyes Factors Influencing Readiness to Learninterest in learning Factors that Impact Ability to Learnnone Devices/Methods Used to Communicatenone Learning Preferencesverbal instruction Cultural Considerationsnone Developmental Considerationsnone Cheondoism Considerationsnone Learning Assessment (Other Learner): Learning Assessment (Other Learner): Other learner availableno Pressure Injury/TB/Substance: Pressure Injury: Pressure Injury Present on Admissionno Do you have a coughno Smoking Statusnever smoker Alcohol Usedenies Drug Usedenies Admission Risk Screen: Significant IndicatorsComplete CAGE: CAGE: Is this an injured patient at a Trauma Center ([facility]/[place]/[facility]/[place]): no Electronic Signatures: Nasrin Landeros (KALEN) (Signed 24-Sep-2022 15:29) Authored: Preferred Language, Patient Preferred Pharmacy, Advanced Directives, Family Violence Adult, Learning Assessment (Patient), Learning Assessment (Other Learner), Pressure Injury/TB/Substance, Pressure Injury, CAGE Last Updated: 24-Sep-2022 15:29 by Nasrin Landeros (KALEN) Normal [facility] TSHon 09-24-2022 TSH Qn 1.70 m[IU]/L Normal 0.44 - 3.98 [facility] Comment on above: Result Comment: TSH testing is performed using different testing methodology at [facility] than at other [facility]. Direct result comparisons should only be made within the same method. Performed By: #### T SH2 #### [address] [address] Triage - EDon 09-24-2022 Triage - ED Quick Triage: Are You no Have You Given In The Last 6 Weeksno Are You Currently Breastfeedingno Chart Review: PRIMARY ASSESSMENT REINALDO WARREN'isidoro primary assessment is Within Defined Limits. The airway is open and patent. Breathing spontaneous and unlabored with clear breath sounds bilaterally. Circulation is normal with good peripheral pulses. Skin is warm and dry and color is normal for race. ARRIVAL INFORMATION Means of Arrival: wheelchair Mode of Arrival: private vehicle Arrival From: home Accompanied By: self Language: Spoken Language Preferred: Israeli CHIEF COMPLAINT REINALDO WARREN is a Female patient with a chief complaint of syncope (Patient states she has been having episodes of blacking out since yesterday, states when I stand up everything goes black, sometimes I fall down and other times I just have to hold onto something until it passes. States I think its from the lexapro I take for my blood pressure.). Triage Date/Time: 24-Sep-2022 14:57 SYLVIA: 3V Pain Rating (0-10): 0 = None Vital Signs: Temperature: 97.6F ( 36.4C) taken temporal Blood Pressure: 136/108 Mean: Heart Rate: 128 Respiratory Rate: 17 Pulse Oximetry: 99% on room air, no respiratory support. Height: 5 feet 3.00 inches. 160.0 CM Weight: 200.6 pounds. Calculated 91.0 kg. Calculated BMI (kg/m2): 35.546 Calculated BSA (m2) 2.01 [place] Coma Scale: Best Eye Response: (E4) spontaneous Best Motor Response: (M6) obeys commands Best Verbal Response: (V5) oriented [place] Score: 15 Allergies: yes Mask applied: yes Last menstrual period: 24-Sep-2022 Patient has homicidal thoughts: no Risk Screens Suicide Risk Screen In the Past Month: Have you wished you were or wished you could go to sleep and not wake up no In the Past Month: Have you had any actual thoughts of killing yourself no In Your Lifetime: Have you ever done anything, started to do anything, or prepared to do anything to end your life no Interventions: Hernandez Fall Interventions: LOW INTERVENTIONS: *patient oriented to surroundings and call system, * patient/family falls education completed and documented, *patients fall status communicated during bedside handoff, *whiteboard updated, *mode of toileting discussed with patient, *bed in low position with brakes locked, *call light in reach, * non-skid footwear TRAVEL HISTORY Travel History Coronavirus Screening: no exposure or symptoms Travel Exposure History: NO travel to International locations in the past 30 days PAIN Pain Scale Used: CARLEE Pain Rating (0-10): 0 = None Past Medical History: Past Medical History Reviewedyes Electronic Signatures: Nasrin Landeros (RN) (Signed 24-Sep-2022 15:28) Entered: Risk Screens, Pain, Arrival, ABCD, Travel History, Chart Review, Past Medical History Authored: Quick Triage, Risk Screens, Pain, Arrival, ABCD, Travel History, Chart Review, Past Medical History Last Updated: 24-Sep-2022 15:28 by Nasrin Landeros (KALEN) [facility] metabolic 2000 panelon 08-23-2022 Anion gap [Moles/Vol] 11 mmol/L Normal 9-18 [facility] Comment on above: Order Comment: Speci men Type: BLOOD SPECIMEN Ordering Facility: [facility] Address: [address] [address] Performed By: #### 2 4321-2 #### [facility] CLIA [id number] 1 [place] [address] [place] Calcium [Mass/Vol] 9.6 mg/dL Normal 8.5-10.2 [facility] Comment on above: Order Comment: Speci men Type: BLOOD SPECIMEN Ordering Facility: [facility] Address: [address] [address] Performed By: #### 2 4321-2 #### [facility] CLIA [id number] 1 [place] [address] [place] Chloride [Moles/Vol] 97 mmol/L Normal 97-105 [facility] Comment on above: Order Comment: Speci men Type: BLOOD SPECIMEN Ordering Facility: [facility] Address: [address] [address] Performed By: #### 2 4321-2 #### [facility] CLIA [id number] [address] CO2 [Moles/Vol] 26 mmol/L Normal 22-30 [facility] Comment on above: Order Comment: Radha kapoor Type: BLOOD SPECIMEN Ordering Facility: [facility] Address: [address] [place] [address] Performed By: #### 2 4321-2 #### [facility] CLIA [id number] [address] Creatinine [Mass/Vol] 0.68 mg/dL Normal 0.58-0.96 [facility] Comment on above: Order Comment: Speci men Type: BLOOD SPECIMEN Ordering Facility: [facility] Address: [address] [place] [address] Performed By: #### 2 4321-2 #### [facility] CLIA [id number] [address] ESTIMATED GLOMERULAR FILTRATION RATE 115 mL/min/1.73m??? Normal >=60 [facility] Comment on above: Order Comment: Speci men Type: BLOOD SPECIMEN Ordering Facility: [facility] Address: [address] [place] [address] Result Comment: Kayleigh mated Glomerular Filtration Rate (eGFR) is calculated using the 2020 CKD-EPI creatinine equation. This equation utilizes serum creatinine, sex, and age as parameters. The creatinine assay has traceable calibration to isotope dilution-mass spectrometry. Refer to KDIGO guidelines for clinical interpretation. In patients with unstable renal function, e.g. those with acute kidney injury, the eGFR may not accurately reflect actual GFR. Performed By: #### 2 4321-2 #### [facility] CLIA [id number] [address] OF [facility] Glucose [Mass/Vol] 197 mg/dL High 74-99 [facility] Comment on above: Order Comment: Rdaha kapoor Type: BLOOD SPECIMEN Ordering Facility: [facility] Address: [address] [place] [address] Result Comment: The [place] Diabetes [employer] (ADA) provides guidance for cutoff values for fasting glucose and random glucose. The ADA defines fasting as no caloric intake for at least 8 hours. Fasting plasma glucose results between 100 to 125 mg/dL indicate increased risk for diabetes (prediabetes). Fasting plasma glucose results greater than or equal to 126 mg/dL meet the criteria for diagnosis of diabetes. In the absence of unequivocal hyperglycemia, results should be confirmed by repeat testing. In a patient with classic symptoms of hyperglycemia or hyperglycemic crisis, random plasma glucose results greater than or equal to 200 mg/dL meet the criteria for diagnosis of diabetes. Reference: Standards of Medical Care in Diabetes 2016, [place] [employer]. Diabetes Care. 2016.39(Suppl 1). Performed By: #### 2 4321-2 #### [facility] CLIA [id number] [address] Potassium [Moles/Vol] 4.0 mmol/L Normal 3.7-5.1 [facility] Comment on above: Order Comment: Speci men Type: BLOOD SPECIMEN Ordering Facility: [facility] Address: [address] [place] [address] Performed By: #### 2 4321-2 #### [facility] CLIA [id number] [address] STATES [facility] Sodium [Moles/Vol] 134 mmol/L Low 136-144 [facility] Comment on above: Order Comment: Carlosi antwon Type: BLOOD SPECIMEN Ordering Facility: [facility] Address: [address] [place] [address] Performed By: #### 2 4321-2 #### [facility] CLIA [id number] [address] Urea nitrogen [Mass/Vol] 14 mg/dL Normal 7-21 [facility] Comment on above: Order Comment: Speci men Type: BLOOD SPECIMEN Ordering Facility: [facility] Address: [address] [place] [address] Performed By: #### 2 4321-2 #### [facility] CLIA [id number] [address] OF [facility] CASE MANAGEMon 08-23-2022 CASE MANAGEM HNO ID: [id number] Author: Russell Desir RN Service: ? Author Type: Registered Nurse Type: Care Mgt Progress Note Filed: 08/23/2022 2:24 PM Note Text: CARE MANAGEMENT PROGRESS NOTE SERVICE DATE: 08/23/2022 SERVICE TIME: 1424 LOS: 3 days IMM Follow Up Copy Given: Yes Copy given to:: Patient Method: In Person Pt acknowledged receipt. SIGNATURE: Russell Desir RN PATIENT NAME: Reinaldo Warren DATE: August 23, 2022 TIME: 2:24 PM PAGER/CONTACT #: [phone] Normal [facility] CBC panel Auto (Bld)on 08-23 Erythrocyte distribution width (RBC) [Ratio] 15.2 % High 11.5-15.0 [facility] Comment on above: Order Comment: Radha kapoor Type: BLOOD SPECIMEN Ordering Facility: [facility] Address: [address] [place] [address] Performed By: #### 3 2693-4 #### [facility] CLIA [id number] [address] Hematocrit (Bld) [Volume fraction] 38.3 % Normal 36.0-46.0 [facility] Comment on above: Order Comment: Radha kapoor Type: BLOOD SPECIMEN Ordering Facility: [facility] Address: [address] [place] [address] Performed By: #### 3 2693-4 #### [facility] CLIA [id number] [address] STATES OF [facility] Hemoglobin (Bld) [Mass/Vol] 13.3 g/dL Normal 11.5-15.5 [facility] Comment on above: Order Comment: Radha kaporo Type: BLOOD SPECIMEN Ordering Facility: [facility] Address: [address] [place] [address] Performed By: #### 3 2693-4 #### [facility] CLIA [id number] [address] OF [facility] MCH (RBC) [Entitic mass] 29.8 pg Normal 26.0-34.0 [facility] Comment on above: Order Comment: Speci men Type: BLOOD SPECIMEN Ordering Facility: [facility] Address: [address] [address] Performed By: #### 3 2693-4 #### [facility] CLIA [id number] [address] MCHC (RBC) [Mass/Vol] 34.7 g/dL Normal 30.5-36.0 [facility] Comment on above: Order Comment: Speci men Type: BLOOD SPECIMEN Ordering Facility: [facility] Address: [address] [address] Performed By: #### 3 2693-4 #### [facility] CLIA [id number] [address] MCV (RBC) [Entitic vol] 85.7 fL Normal 80.0-100.0 [facility] Comment on above: Order Comment: Speci men Type: BLOOD SPECIMEN Ordering Facility: [facility] Address: [address] [address] Performed By: #### 3 2693-4 #### [facility] CLIA [id number] [address] Nucleated RBC (Bld) [#/Vol] 10*3/uL Normal <0.01 [facility] Comment on above: Order Comment: Speci men Type: BLOOD SPECIMEN Ordering Facility: [facility] Address: [address] [address] Performed By: #### 3 2693-4 #### [facility] CLIA [id number] [address] Platelet mean volume (Bld) [Entitic vol] 9.9 fL Normal 9.0-12.7 [facility] Comment on above: Order Comment: Speci men Type: BLOOD SPECIMEN Ordering Facility: [facility] Address: [address] [place] [address] Performed By: #### 3 2693-4 #### [facility] CLIA [id number] [address] [place] [address] [place] Platelets (Bld) [#/Vol] 221 10*3/uL Normal 150-400 [facility] Comment on above: Order Comment: Carlosi antwon Type: BLOOD SPECIMEN Ordering Facility: [facility] Address: [address] [place] [address] Performed By: #### 3 2693-4 #### [facility] CLIA [id number] [address] RBC (Bld) [#/Vol] 4.47 10*6/uL Normal 3.90-5.20 [facility] Comment on above: Order Comment: Speci men Type: BLOOD SPECIMEN Ordering Facility: [facility] Address: [address] [place] [address] Performed By: #### 3 2693-4 #### [facility] CLIA [id number] [address] WBC (Bld) [#/Vol] 6.72 10*3/uL Normal 3.70-11.00 [facility] Comment on above: Order Comment: Speci men Type: BLOOD SPECIMEN Ordering Facility: [facility] Address: [address] [place] [address] Performed By: #### 3 2693-4 #### [facility] CLIA [id number] [address] CNDSon 08-23-2022 CNDS HNO ID: [id number] Author: Nicolasa Armenta MD Service: Hospital Medicine Author Type: Physician Type: Discharge Summary Filed: 08/23/2022 2:32 PM Note Text: DISCHARGE SUMMARY PATIENT NAME: Reinaldo Warren ADMISSION DATE: 08/20/2022 DISCHARGE DATE: 08/23/2022 Attending Physician: Nicolasa Armenta MD Reason for Hospitalization: Confusion Diagnosis: Principal Problem: AMS (altered mental status) POA: Yes Resolved Problems: * No resolved hospital problems. * Hospital Course as Described to the Patient: You were admitted for Confusion. Additional Provider to Provider Information: Patient is a 37-year-old female admitted for an episode of confusion. EEG was benign. MRI was benign. 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 It was recommended to talk to a psychiatrist outpatient, and the phone number was given to them to make an appointment. Operations During Hospitalization: None Procedures During Hospitalization: No procedures performed Labs and Procedures Pending at Discharge: No pending results. Consulting Teams During Hospitalization: Treatment Team: Attending Provider: Nicolasa Armenta MD Primary Service: TAY JIN Consulting: Aleks Lopez MD None Patient Condition @ Discharge: Good Discharge Disposition: Home/Self Care PHYSICAL EXAM: Discharge Physical Exam: VITAL SIGNS: BP 121/87 Pulse 108 Temp 36 ?C (96.8 ?F) (Oral) Resp 18 Ht 165.1 cm (5' 5) Wt 99.8 kg (220 lb 0.3 oz) LMP 02/05/2022 SpO2 97% BMI 36.61 kg/m? GENERAL: Alert, no distress, cooperative Information Provided to Patient: Given at bedside Discharge Medications: Please see After Visit Summary Med Reconciliation for accurate list of discharge medications. If any questions please contact discharging physician. Future Appointments: Follow Up with PCP: Sharon Foster MD Appointments for Next 45 Days Date and Time Provider Department Dept Phone 08/25/2022 8:00 AM Cesar Parks Jr. [facility] AD[facility] [phone] TIME OF CARE : The physician spent 33 minutes was spent in coordinating this discharge including time spent educating patient, examining patient, ordering medications, and completing necessary paperwork SIGNATURE: Nicolasa Armenta MD PATIENT NAME: Reinaldo Warren DATE: August 23, 2022 TIME: 2:31 PM PAGER/CONTACT #: Pager Valorie Danay [facility] THERAPY NTon 08-23-2022 THERAPY NT HNO ID: [id number] Author: Cindy Alaniz PT Service: Physical Therapy Author Type: Physical Therapist Type: Therapy (PT/OT/Speech/Resp) Filed: 08/23/2022 3:16 PM Note Text: Physical Therapy Evaluation SERVICE DATE: 08/23/2022 SERVICE TIME: 1424 to 1452 ROOM: [address] [address] Recommended Discharge Disposition: Outpatient Physical Therapy Recommended Discharge Disposition Comments: for balance, coordination and strengthening Anticipated Discharge Needs: Physical Assist at Home Physical Assist at Home for: Cleaning;Laundry;Meals; Shopping;Transportation PT 6 Clicks Score: 22 Precautions/Activity Restrictions: Fall Risk;Seizure Current Hospital Course: seizure; PNES Reason for Hospital Admission: change in mental status; 2 seizure like episodes==froze up and then shaking Relevant Past Medical History: DM, CVA, seizures Response to Therapy Interventions: Good participation in activities Continue skilled needs due to: Functional mobility/skill impairments, Safety concerns Physical Therapy Problem List: Decreased Activity Tolerance;Functional Mobility Impairment;Balance Impaired;Decreased Strength Treatment Interventions: Education;Balance Training;Neuromuscular Re-education Home Environment Patient Lives With: Family ( and 4 kids ( 14, 12, 10, 9)) Assistance Available: Part-Time Entry To Home: Stairs Number Of Stairs To Bed/Bath: 2nd floor bedroom and 1/2 bath; can set up on first floor and full bath down there too Laundry: pt completes Prior Functional Level: Within Functional Limits Prior Functional Level Comments: indep; takes care of home; drives Patient Report: no c/o; pleasant and agreeable CURRENT FUNCTIONAL STATUS: Most recent performance Current Functional Mobility Assist Level Additional Information Rolling Supine to Sit Sit to Supine Scooting Sit to Stand Stand By Assistance Stand to Sit Stand By Assistance Bed to Chair Toilet/Commode Gait Contact Guard Assistance;Additional Information Gait Device: Hand Held Assist (hand rail in hallway) Gait Distance (feet): 60'x2 Stairs Curb Step Car Transfer Range of Motion: WFL Strength: WFL Except (RLE weakness noted with gait--foot turns out with each step) Gait Deviations Right Lower Extremity: (R foot turns out with each step) General Deviations/Observations : Renetta decreased;Step length decreased;Flexed trunk posture -M: 7: Walk 25 feet or more Learning/Educational Needs: Discharge Plan;Family Education/Training;Func tional Activities/Mobility;Daniel n of Care;Precautions;Safety Goals for Plan of Care: Patient /Caregiver Goals: Go Home Ambulate with: Supervision Distance: 100'x2 Device: No Device Goal: sit to/from stand [id number] SBA Goal: balance and coordination exercises in standing with SBA Rehab Potential: Good Patient will be discontinued from Physical Therapy when no further skilled needs are identified in this setting. PLAN: PT Frequency: 3 times per week (1-3) Plan of Care developed with: Patient;Family TREATMENT INTERVENTIONS: Therapy Diagnosis: Reduced mobility-other;Muscle Weakness (generalized);Unsteadin ess on feet;Abnormalities of gait and mobility-other Interventions Provided: Evaluation;Therapeutic Activity (93241) $ Evaluation-Moderate (55199) Billed Units: 1 unit Therapeutic Activity (28221) Treatment Minutes: 8 $ Therapeutic Activity (37264) Billed Units: 1 unit Educated pt and on role of PT in acute care Facilitated functional mobility including transfers, ambulation and stair negotiation Instruct in safety with mobility with ambulation and stair negotiation--sequencing Discussed D/C--outpt PT neuro vs ortho--this PT prefers neuro clinic if possible Seated exercises: LAQ, hip flexion, AP Training AND education provided in: Bed mobility, Benefits of in-hospital mobility, Discharge planning, Falls prevention, Home safety, Role of Physical Therapy, Disease specific education, Advanced balance activities The following therapeutic skills were used: Activity dosing, Assessment of tolerance including vitals response to activity, Cues for sequencing/proper technique for activity, Physical assist, Movement facilitation Timed Code Treatment (minutes): 8 Skilled Treatment Time (minutes): 28 Please see discipline specific clinical documentation flowsheet for complete details for this therapy evaluation/treatment. SIGNATURE: Cindy Alaniz PT PATIENT NAME: Reinaldo Warren DATE: August 23, 2022 TIME: 3:13 PM [facility] ALLIED HEALTHon 08-22-2022 ALLIED HEALTH HNO ID: [id number] Author: Yasmani MicahRT catalina(R) Service: Radiology Author Type: Technologist Type: Allied Health Filed: 08/22/2022 4:52 PM Note Text: Radiology Service Progress Note DATE OF SERVICE: August 22, 2022 TIME: 4:51 PM PATIENT IDENTITY VERIFICATION COMPLETED USING TWO (2) STANDARD IDENTIFIERS: Name and Date of confirmed by patient verbally and Name and Date of confirmed by identification band. FALL SCREENING: Has the patient had 2 falls in the last year or 1 fall with injury or currently using an Ambulatory Assistive Device (Walker, Cane, Wheelchair, Crutches, etc.)? Inpatient: Screened on floor PATIENT GENDER DATA: Female. status: : No status: NO. PATIENT RELEVANT IMPLANT DATA REVIEWED: Not Applicable ALLERGIES: Reviewed and unchanged CONTRAST ALLERGY: NO. EXAM: MRI - CONTRAST TYPE: GROUP II PERIPHERAL IV DATA: Inpatient - refer to LDA documentation RADIOLOGY DEPARTMENT: MR; Exam(s) Completed: Head: Routine Brain Seizure SIGNATURE: Yasmani Sunday, RT(R) PATIENT NAME: Reinaldo Warren DATE: August 22, 2022 TIME: 4:51 PM Normal [facility] CONSULTon 08-22-2022 CONSULT HNO ID: [id number] Author: Sharmin Gandhi MD Service: Neurology Adult Epilepsy Author Type: Physician Type: Consults Filed: 08/22/2022 4:42 PM Note Text: This is a telephone [id number] consultation. Reason for Consultation: ?seizure HPI History given by: chart review, attempts to reach patient failed due to being in MRI Handedness: RIGHT 37 year old year old female presents with recurrent convulsions. Timeline history review: 08/29/2013 - MRI BRAIN images in [facility] - outside hospital - reviewed and no evidence of acute changes or pathology 09/16/2013 - Epilepsy note by Dr. Gordon - ?This is a 28 year old right-handed female who presents with a chief complaint of possible seizures. She is referred by Dr. Galeano after he saw the patient in clinic. The patient states that all started about one week after she delivered her baby in June 06 2013. After that, she was admitted to the hospital after having sudden weakness of the right hemibody and loss of sensation. She was told that she had a stroke but the Brain MRI did not show any abnormalities. Since it was after delivery, a brain MRV was performed and was normal (report available in [facility], images were not available). The patient improved after 4 hours of weakness and numbness of the right hemibody. After that, she started experiencing 2 different events that generally start very similar but evolved slightly different. She describes the first type of event like passing out events. She states that she would start having nausea, then she could vomit and minutes after that she would have a headache, then she would complain of numbness sensation in the right hemibody (described as weakness and pins and needles sensation). Then, suddenly she becomes pale and sweaty and would pass out. According to her relatives, she is completely limp on the floor for about 5 minutes. After that, she would recover consciousness but she is still confused for about 10 minutes. The events occur 3-4 times daily. There is history of loss of control of bladder but not bowel. Not tongue injury. The second event that she calls seizures are quite similar. She describes that all starts with some numbness in the right hemibody, she feels sweaty and hot and after that the patient is not aware of the events. She was told that she would stare unresponsive for about 30 seconds and then falls on the ground having a convulsion. The relatives describe the movements on the ground like an asynchronic movement of the upper and lower extremities associated with back and forth movement of the head. This event lasts 2 to 3 minutes. Then, she wakes up confused for about 30 minutes. She has these type of event twice to three times a week. There is history of loss of control of bladder but not bowel. Not tongue injury. She has previous history of diabetes, depression and hypertension. During her last she was told that she had hypertension and diabetes. The possible stroke was not completely understood and the brain MRI /MRV/MRA were normal (results scan in [facility]). There is no history of status epilepticus. Postictal symptoms include confusion. Possible lateralizing signs by history: focal onset with tingling sensation in the right hemibody. Currently not taking antiseizure medications. She is taking Xanax for anxiety.? EEG was ordered and Trileptal started. 10/24/13 - Dr. Saenz follow up note - ?The patient has returned for follow-up regarding spells. This is a 28 year old right handed female who was last seen by Dr Yang and Dr Gordon on 09/16/13 and has been diagnosed with having spells of unclear etiology. She has been on Trileptal for the last 2 months. There are no complaints of side effects related to medications. Last event with LOC Sep 25. No seizures since reaching target dose of Trileptal. Overall, she is feeling very well and is here for follow-up to discuss her driving privileges.? 01/05/2020 - Dr. Camarillo follow up - ?This is a 34 year old right-handed female with depression and anxiety who presents with a chief complaint of spell recurrence. The onset of spell was 2012, she was treated with OXC for seizure like episodes by Dr. Yang. She stopped taking OXC (300 mg bid) since 2014. She has been doing well till Nov 2018 when her spells recurred. She states that her episodes are the same as in 2014. The last one was 12/10/2019 when her blood pressure was high and her anxiety is high. She identifies high BP and anxiety can be the triggers for her seizure. She has 2 types of spells: 1. left side shaking with LOC (2-3 times per month), 2: whole body went numb and blurry vision, 10 times per month.? 08/20/2022 - CTH WO - ?No CT evidence of acute intracranial abnormalities.? 08/20/2022 - EEG - ?This EEG is within normal limits. No epileptiform discharges or EEG seizures were seen during this recording. One episode of (more content not included)... Normal [facility] CONSULT HNO ID: [id number] Author: Gary Hardy MD Service: Psychiatry Author Type: Physician Type: Consults Filed: 08/22/2022 6:32 PM Note Text: CL NEW - PSYCHIATRY INITIAL CONSULTATION NOTE To get ahold of service: DAY TIME COVERAGE: Between 8AM to 5PM, contact Rashawn Fernandes CNP, Dr. Hardy, or Wendy Molian CNP. See hospital directory for numbers NIGHT, WEEKEND, AND HOLIDAY COVERAGE: After hours (5PM to 8AM), holidays AND weekends, call answering service at [phone] SERVICE DATE: August 22, 2022 SERVICE TIME: 02:00 PM CONSULTING SERVICE : Psychiatry, requested by Dr. Dennis Welch MD's team REASON FOR CONSULTATION: depression/anxiety, presented with seizure. Input regarding current psych meds regimen. IDENTIFYING INFO: Ms. Warren is a 37 year old female from [place], [place]. HISTORY OF PRESENT ILLNESS : Ms. Reinaldo Warren is a 37 year old female w/ PMH of T2DM, HTN, seizure disorder, CVA 9 years ago, migraines, and PTSD who presented to the [place] ED on 08/20/22 with AMS. Pt was at [employer] that morning when she had 2 seizure-like events, where she froze up and had some mild shaking followed by a fall. One was witnessed by EMS.The pt was groggy/confused in the ED, oriented to self and place only. Pt reported noncompliance with her seizure medication for months after running out. Initial Na 132 (135 yesterday), K 3.7, BUN 7, Cr. 0.61, Initial lactate 2.8. TSH, Mg, wnl. CBC unremarkable. Utox negative. CTH negative for acute or chronic changes.20 minute EEG showed no epielptiform discharges or EEG seizures, including during an episode of body stiffening and head shaking, consistent with psychogenic nonepileptic spells (PNES). EKG Sinus tachycardia, HR 109 QT 348 Qtc 468, corrected using [place] 417. Patient was interviewed with at bedside, she was alert but psychomotorly slowed and oriented to self only. She knew she was at a hospital but did not know which one. Patient was not able to answer many questions during the interview, however reported following with her psychiatric PROSTHETICS LAB TECHNICIAN for awhile and is doing okay emotionally on her current regimen. She reports being compliant with her current regimen (Rexulti, BuSpar, and paroxetine) with the exception of hydroxyzine (described as the one that you take 3 times a day), which she ran out a month ago. She denied any acute psychiatric symptoms including thoughts of self-harm, suicidal ideation, intent, plan, HI, signs/symptoms of lois, or psychosis. She was agreeable to continue her current regimen and follow up with her outpatient PROSTHETICS LAB TECHNICIAN after discharge. Per dispense report, following prescribed by Jeanette Miller APRN were filled in the past 3 months appropriately: Rexulti 1.5 mg daily; Buspar 10 mg BID; Hydroxyzine 25 mg TID PRN; Paroxetine 40 mg daily. The pt has been seeing PROSTHETICS LAB TECHNICIAN since 05/31/20. Last seen 07/03/22. Per chart review, patient has been taking Paxil and Trileptal dating back to April 2020, Hydroxyzine dating back to July 2020, Rexulti added November 2020, and Buspar in July 2021. Given her stability and lack of electrolyte abnormalities for the past year on the regimen, her initial sodium of 132 is unlikely to be due to her psychiatric medication regimen. She reports feeling nauseous and vomiting recently, which may have contributed to her hyponatremia. Does Patient Have Any Suicidal Ideations: No SUICIDE RISK ASSESSMENT SUICIDAL IDEATIONS: Denies RECENT ACUTE EVENTS: As per HPI LETHALITY FACTORS: Access to Means: Any firearms in home? No Moved a firearm recently? N/A Any current suicide plan not involving firearm? No Demographic Factors: Marital Status: Ethnicity: White(Highest risk is ) Gender: female (Highest risk is male) Age: [age] year old (Highest risk is >65) Family history of suicide? No Evidence of Intentional Self-Harm History of prior suicide attempts? No Past thoughts of self-harm? No Self-Mutilation: History of past self-mutilation without expressed suicide intent? No Sexual Orientation: Is patient homosexual or bisexual? No Recent Increase in Drug or Alcohol Use? No Rural or Isolated Home Environment? No PROTECTIVE FACTORS: Clinician Judgment of Insight: Limited due to mental status Social Resources: Family or friends who are concerned about pt? Yes Lives with others? Yes Presence of Dependents(e.g. children, elderly parents, pets)? Yes Recent Psychiatric Inpatient Treatment? No Presence of Meaningful Daily Activities? Yes Currently employed? Yes [employer] Affiliation? Yes Therapeutic [place]: Does pt believe treatment can help his/her negative feelings? Yes History of good medication compliance in past? Yes FORMULATION OF SUICIDE RISK: Low Will any interventions be undertaken to address above-listed Lethality or Protective Factors? Resume home psychiatric medication regimen (Assessment adapted from (more content not included)... Normal [facility] CONSULT PROGon 08-22-2022 CONSULT PROG HNO ID: [id number] Author: Dina Oneal APRN.PUBLIC SAFETY TELECOMMUNICATOR Service: Neurology General Author Type: Nurse Practitioner Type: Consult Progress Note Filed: 08/22/2022 10:02 AM Note Text: NEUROLOGY CONSULT PROGRESS NOTE SERVICE DATE: 08/22/2022 SERVICE TIME: 916 Current Attending Provider: Dennis Welch MD CC: seizure Subjective Interval History: No acute events O/N. This am pt c/o abd pain with N/V per chart. At present pt resting in bed. No visitors present at bedside. Pt c/o generalized weakness and fatigue. Test results and POC reviewed with pt. All questions addressed to her satisfaction. Objective Physical Examination: Sleeping but wakes to verbal stim Oriented to person and place, states month as sept Speech clear No facial asym PERRL EOMI VFF MAEx4 5/5 Subjective decreased sensation right UE/LE New Labs: WBC (k/uL) Date Value 08/20/2022 6.61 08/07/2021 4.95 08/06/2021 5.78 08/05/2021 7.59 RBC (m/uL) Date Value 08/20/2022 4.33 08/07/2021 3.27 08/06/2021 3.48 08/05/2021 4.37 Platelet Count (k/uL) Date Value 08/20/2022 221 08/07/2021 155 08/06/2021 181 08/05/2021 236 BUN (mg/dL) Date Value 08/21/2022 8 08/20/2022 7 08/13/2021 11 08/07/2021 10 08/06/2021 12 Creatinine (mg/dL) Date Value 08/21/2022 0.60 08/20/2022 0.61 08/13/2021 0.75 08/07/2021 0.71 08/06/2021 0.74 CBC, Coags, BMP, Mg, Phos Recent Labs 08/21/22 0621 08/20/224 08/20/22 1254 INR -- -- 1.0 APTT -- -- 21.6* NA 135* -- 132* K 4.1 -- 3.7 CHLOR 100 -- 96* CO2 25 -- 24 GLUC 189* -- 277* CA 8.7 -- 8.9 MG -- 1.8 -- Liver Function, Amylase, AND Lipase DATA: Diagnostic tests reviewed for today's visit: Most recent labs and imaging results. Impression/Recommendati ons 37yo female with PMHx significant for DM, stroke, seizure, depression, HTN, and medication non-compliance; who presented to [facility] after 2 witnessed seizure like events. Concern for seizure in the setting of medication non-compliance EEG (08/20) No epileptiform discharges or EEG seizures were seen during this recording. One episode of body stiffening and head shaking was recorded, without EEG correlate to suggest epileptic seizure. C/w OXC, pt has not been taking for months per chart MRI brain w/wo pending Rec OP follow up with epilepsy Please call with questions. Part of the above documentation may have been copied from previous notes. Above documentation has been reviewed and updated to reflect the most accurate information and A/P. SIGNATURE: Dina Oneal APRN.LOR PATIENT NAME: Reinaldo Warren DATE: August 22, 2022 TIME: 10:02 AM Pager [phone] Normal [facility] MRI BRAIN WO/W IVCONon 08-22 MRI BRAIN WO/W IVCON * * *Final Report* * * DATE OF EXAM: Aug 22 2022 5:21PM [facility] 0295 - MRI BRAIN WO/W IVCON / PROCEDURE REASON: Seizure, new-onset, no history of trauma * * * * Physician Interpretation * * * * EXAMINATION: MRI BRAIN WO/W IVCON CLINICAL HISTORY: New onset seizures. Altered mental status, confusion, possible stroke. TECHNIQUE: Routine brain MRI protocol without and with contrast including diffusion images. MQ: [id number]_2 Contrast: 20 mL Dotarem IV COMPARISON: CTA head and neck on 08/20/2022. RESULT: Acute Change: There is no evidence of restricted diffusion to suggest an acute infarct. Hemorrhage: No evidence of prior parenchymal hemorrhage on the gradient echo images. Mass Lesion/ Mass Effect: No evidence of an intracranial mass or extra-axial fluid collection. No abnormal parenchymal or leptomeningeal enhancement is noted following contrast administration. No significant mass effect. No specific seizure focus is identified. Hippocampi are symmetric in signal and size. Chronic Change: The white matter is within normal limits of signal intensity for age. Parenchyma: No significant volume loss for age. The brain parenchyma is otherwise within normal limits of signal intensity and morphology. Ventricles: Normal caliber and morphology. Skull Base: Hypothalamic and pituitary region are grossly normal. Craniocervical junction is normal. No significant marrow replacement process. Vasculature: Major intracranial arterial structures, and dural venous sinuses show typical flow void, suggesting patency by spin echo criteria. Other: The visualized paranasal sinuses and mastoid air cells are clear. The orbits and extracranial soft tissues are unremarkable. IMPRESSION: 1. No evidence of acute infarct, acute intracranial hemorrhage, or significant mass effect. No evidence of abnormal intracranial enhancement. 2. No specific seizure focus is identified. Correlation with EEG is recommended. Data Collection Specialist: MELVIN Transcribe Date/Time: Aug 23 2022 7:40A Dictated by : MARC RAZO MD This examination was interpreted and the report reviewed and electronically signed by: MARC RZAO MD on Aug 23 2022 8:03AM EST [id number] [facility] NURSING PROGon 08-22-2022 NURSING PROG HNO ID: [id number] Author: Abril Pierce RN Service: Nursing Author Type: Registered Nurse Type: Nursing Progress Note Filed: 08/22/2022 6:04 PM Note Text: Other: Emesis x3 today. Continued nausea and intermittent vomiting despite receiving [address] Welch notified. More alert and interactive. Often states she wants to go home. Does not have insight into hospitalization at this time. Unable to accurately state birthdate. Some hesitation at times with speech at times. Avoids eye contact when upset. Encouraged to express feelings in appropriate manner. Emotional support given. Limits set. remains at bedside. [facility] NURSING PROG HNO ID: [id number] Author: Abril Pierce RN Service: Nursing Author Type: Registered Nurse Type: Nursing Progress Note Filed: 08/22/2022 10:09 AM Note Text: Post Fall Assessment Reinaldo Warren [id number] Witnessed: No How did fall occur: Sitting on the side of the bed Location: Patient room Contributing factors: c/o dizziness, confused/disoriented, and lost balance Brief factual description: Patient found sitting on floor next to bed. Patient states she was sitting on side of bed, became weak and slid to floor. States she hid right elbow. No sign of injury. Assisted back to bed by 1. (*Document vital signs, neuro checks, blood sugars in the appropriate flow sheet.) Initial Physical Assessment Injury: Yes Hit right elbow per patient.. Now bruise or swelling. Skin intact Patient hit head: No Immediate actions taken: Assisted back to bed / chair Name of LIP notified: Dr. Welch Notify family as appropriate: Spouse and father Post fall interventions: Bed Alarm On, Frequent Observation, Patient/Family Education, Toileting Scheduling, Patient Mill Helper, Apply a Yellow Wrist Band, Apply [place] Risk Symbol to the Door, My Safety Plan Updated, and bed alarm zone changed to mid level This note was completed by:Abril Pierce [facility] NURSING PROG HNO ID: [id number] Author: Abril Pierce RN Service: Nursing Author Type: Registered Nurse Type: Nursing Progress Note Filed: 08/22/2022 8:34 AM Note Text: Event(s) / Intervention Note: The patient was observed having the following problems: vomiting. The time of the event occurred at: 0810. The following intervention(s) were initiated: no further intervention at this time, will continue to observe and check with patient.. [place] notified. After the initiated interventions, the following observation(s) were made: C/o nausea and abdominal pain 04/16. Normal [facility] Basic metabolic 2000 panelon 08-21-2022 Anion gap [Moles/Vol] 10 mmol/L Normal 9-18 [facility] Comment on above: Order Comment: Speci men Type: BLOOD SPECIMEN Ordering Facility: [facility] Address: [address] [place] [address] Performed By: #### 2 4321-2 #### [facility] CLIA [id number] [address] [place] [address] [place] Calcium [Mass/Vol] 8.7 mg/dL Normal 8.5-10.2 [facility] Comment on above: Order Comment: Speci men Type: BLOOD SPECIMEN Ordering Facility: [facility] Address: [address] [place] [address] Performed By: #### 2 4321-2 #### [facility] CLIA [id number] [address] [place] [address] [place] Chloride [Moles/Vol] 100 mmol/L Normal 97-105 [facility] Comment on above: Order Comment: Speci men Type: BLOOD SPECIMEN Ordering Facility: [facility] Address: [address] [place] [address] Performed By: #### 2 4321-2 #### [facility] CLIA [id number] [address] [place] [address] [place] CO2 [Moles/Vol] 25 mmol/L Normal 22-30 [facility] Comment on above: Order Comment: Speci men Type: BLOOD SPECIMEN Ordering Facility: [facility] Address: [address] [place] [address] Performed By: #### 2 4321-2 #### [facility] CLIA [id number] [address] STATES OF [facility] Creatinine [Mass/Vol] 0.60 mg/dL Normal 0.58-0.96 [facility] Comment on above: Order Comment: Radha kapoor Type: BLOOD SPECIMEN Ordering Facility: [facility] Address: [address] [place] [address] Performed By: #### 2 4321-2 #### [facility] CLIA [id number] [address] OF [facility] ESTIMATED GLOMERULAR FILTRATION RATE 119 mL/min/1.73m??? Normal >=60 [facility] Comment on above: Order Comment: Radha kapoor Type: BLOOD SPECIMEN Ordering Facility: [facility] Address: [address] [place] [address] Result Comment: Kayleigh mated Glomerular Filtration Rate (eGFR) is calculated using the 2020 CKD-EPI creatinine equation. This equation utilizes serum creatinine, sex, and age as parameters. The creatinine assay has traceable calibration to isotope dilution-mass spectrometry. Refer to KDIGO guidelines for clinical interpretation. In patients with unstable renal function, e.g. those with acute kidney injury, the eGFR may not accurately reflect actual GFR. Performed By: #### 2 4321-2 #### [facility] CLIA [id number] [address] Glucose [Mass/Vol] 189 mg/dL High 74-99 [facility] Comment on above: Order Comment: Radha antwon Type: BLOOD SPECIMEN Ordering Facility: [facility] Address: [address] [place] [address] Result Comment: The [place] Diabetes Association (ADA) provides guidance for cutoff values for fasting glucose and random glucose. The ADA defines fasting as no caloric intake for at least 8 hours. Fasting plasma glucose results between 100 to 125 mg/dL indicate increased risk for diabetes (prediabetes). Fasting plasma glucose results greater than or equal to 126 mg/dL meet the criteria for diagnosis of diabetes. In the absence of unequivocal hyperglycemia, results should be confirmed by repeat testing. In a patient with classic symptoms of hyperglycemia or hyperglycemic crisis, random plasma glucose results greater than or equal to 200 mg/dL meet the criteria for diagnosis of diabetes. Reference: Standards of Medical Care in Diabetes 2016, [place] Diabetes Association. Diabetes Care. 2016.39(Suppl 1). Performed By: #### 2 4321-2 #### [facility] CLIA [id number] [address] Potassium [Moles/Vol] 4.1 mmol/L Normal 3.7-5.1 [facility] Comment on above: Order Comment: Speci men Type: BLOOD SPECIMEN Ordering Facility: [facility] Address: [address] [place] [address] Performed By: #### 2 4321-2 #### [facility] CLIA [id number] [address] Sodium [Moles/Vol] 135 mmol/L Low 136-144 [facility] Comment on above: Order Comment: Speci men Type: BLOOD SPECIMEN Ordering Facility: [facility] Address: [address] [place] [address] Performed By: #### 2 4321-2 #### [facility] CLIA [id number] [address] Urea nitrogen [Mass/Vol] 8 mg/dL Normal 7-21 [facility] Comment on above: Order Comment: Carlosi men Type: BLOOD SPECIMEN Ordering Facility: [facility] Address: [address] [place] [address] Performed By: #### 2 4321-2 #### [facility] CLIA [id number] [address] OF BIB CASE MGT INIT ASSESon 2021 CASE MGT INIT ASSES HNO ID: [id number] Author: Russell Desir RN Service: ? Author Type: Registered Nurse Type: Care Mgt Initial Assessment Filed: 08/21/2022 3:24 PM Note Text: CARE MANAGEMENT: ASSESSMENT AND DISCHARGE PLAN SERVICE DATE: August 21, 2022 SERVICE TIME: 1300 PRIMARY CARE PHYSICIAN: Sharon Foster MD Primary Contact: Extended Emergency Contact Information Primary Emergency Contact: Serge Warren Address: [address] [place] [address] Mobile Relation: Spouse ADMISSION STATUS: Inpatient Insurance Provider: MEDICARE A AND B NEEDS PRIOR TO DISCHARGE Needs Prior to Discharge: To Be Determined POTENTIAL TRANSITION PLANS Home Based on clinical judgement, Care Management will address the following needs: Medical Patient's perception of need for this admission: seizures/disorientation ADVANCE DIRECTIVES Current Advance Directive: None Communication Equipment Repairer Attempted to Assist with AD Completion: Yes Action: Education Provided MS/BEHAVIOR Baseline Mental Status Prior to this Illness what was the patient's Baseline Mental Status?: Unable to complete assessment Prior to this illness, has anyone described the patient having any of the following behaviors?: Not Applicable Relationship of the informant to the patient:: Spouse Name of Informant: : Serge Warren READMISSION Last Discharge Date: 08/20/22 Is this Within the Past 30 days? From what level of care did patient present?: Home Last discharge within 30 days: No PATIENT SCREEN Patient/Measurer Machine Stated Goals: To have reduction in symptoms;To return home to life as it was Under the care of a PCP?: Yes, Internal Provider Provider Name: Dr. Foster Does the patient have transportation upon discharge?: Yes Situation: spouse can transport Use of any community resources?: No Does the patient have a stable and supportive living arrangement and home setting?: Yes Are there any potential risks or gaps identified by risk/functional/fall,et c. scores in the EMR?: No Any potential risks related to substance abuse and/or behavioral health?: No Based on clinical judgement, Care Management will address the following needs: Medical CAREGIVER ASSESSMENT Caregiver is ready, willing and able to meet the patient's needs as recommended by the inter-professional team:: Yes Name of Caregiver: Serge Warren MEDICAL Medical Needs: Two or more chronic diseases Health Issues Impacting Discharge Plan: Newly diagnosed Newly Diagnosed: AMS Medication Adherance Med Adherance Assessement not completed due to: Mental Status SOCIAL Food Insecurity: No Food Insecurity Worried About Running Out of Food in the Last Year: Never true Ran Out of Food in the Last Year: Never true Financial Resource Strain: Low Risk Difficulty of Paying Living Expenses: Not hard at all Transportation Needs: No Transportation Needs Lack of Transportation (Medical): No Lack of Transportation (Non-Medical): No Housing Stability: Low Risk Unable to Pay for Housing in the Last Year: No Number of Places Lived in the Last Year: 2 Unstable Housing in the Last Year: No BEHAVIORAL/COGNITIVE FUNCTIONAL No social discharge barriers identified at this time. No behavioral/cognitive discharge barriers identified at this time. No functional discharge barriers identified at this time. FREEDOM OF CHOICE EXPLAINED: Are you interested in bedside delivery of your medications? No ASSESSMENT AND PLAN: Met with patient and spouse at bedside. Pt did not wake up for initial assessment. Information gathered from spouse Serge. 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 Pt admitted for seizure/AMS. Serge describes patient as independent with ADL's at baseline functioning. +PCP, +DME, +Rx. Neurology consulted. Anticipate discharge to home with spouse when medically cleared. Spouse can transport at discharge. CM will continue to follow. SIGNATURE: Russell Desir RN PATIENT NAME: Reinaldo Warren DATE: August 21, 2022 TIME: 3:18 PM CONTACT #: [phone] [facility] CONSULTon 08-21-2022 CONSULT HNO ID: [id number] Author: Breana Rodriges DO Service: Neurology ICU Author Type: Physician Type: Consults Filed: 08/21/2022 4:01 PM Note Text: HANDP NEUROLOGY SERVICE DATE: 08/21/2022 SERVICE TIME: 9:50 AM REASON FOR CONSULTATION: AMS, possibly seizure CONSULTING SERVICE: Medicine Subjective HISTORY OF PRESENT ILLNESS: Reinaldo Warren is a 37 year old female who presents with seizure. RISK FACTORS FOR SEIZURES: 1. Head Trauma (No); 2. DISTRIBUTION AGENT Infections (No); 3. Family History of Seizures (No); 4. Developmental Delay (No); 5. Febrile Seizures (No); 6. DISTRIBUTION AGENT Tumors (No); 7. DISTRIBUTION AGENT Vascular Disease (Yes, stroke after csection and resulting seizures. ); 8. Significant Medical History (Yes, depression). She states she had seizures starting after a stroke she had during section. She does not elaborate further. She says she only has maybe 1 seizure per year. She was on OXC but stopped taking. She does not remember the last time she took. She has no history of status epilepticus. She did bite her tongue. Her says with this seizure, she was tense and shaking. Lasted 20-30 seconds. She is confused/weak afterwards. Per Medicine HP: HPI: This is a 37 year old female with past medical history significant for diabetes, stroke and seizure disorder who presents with altered mental status. Patient was at [employer] this morning when she reportedly had 2 seizure-like events where she froze up and had some mild shaking. Her provides the history as she is still rather groggy and confused. She does not recognize her although she is able to say that she was told earlier that she had a seizure. He reports that she has had history of seizures ever since she had a stroke after her last . The patient previously has been on seizure medications however has been off them for several months after she ran out last time. She otherwise has not had any recent illness and denies nausea, vomiting, diarrhea, abdominal pain, shortness of breath or chest pain. She endorses headache slightly blurred vision from baseline. She denies any urinary symptoms. She reports some paresthesia in her right hand but generally maintains sensation on exam. She had no other complaints or concerns PAST MEDICAL HISTORY Diagnosis Date Diabetes mellitus of mother, complicating , childbirth, or the puerperium, unspecified as to episode of care(648.00) Gestational diabetes Dysthymic disorder Depression (non-psychotic),postpar ashanti Essential hypertension, benign Hemorrhoids 05/19/2011 History of gestational diabetes 10/31/2012 10/31/2012Patient had gestational diabetes with her last 2 pregnancies. She was on glyburide with the that she delivered in 2009. She was insulin-dependent her last . She delivered both of those pregnancies in [place]. Patient is obese. 3 hour G TT ordered by Dr. Jennings. Migraine, unspecified, with intractable migraine, so stated, without mention of status migrainosus Migraine Nipple discharge 02/19/2016 PMH - PAST MEDICAL HISTORY OF DYSLEXIA PMH - PAST MEDICAL HISTORY OF 1988 FRACTURED LEFT LEG PMH - PAST MEDICAL HISTORY OF 01/2007 HOSPITALIZED FOR RUPTURED OVARIAN CYST Seizure disorder (HCC) Seizures (HCC) SPINAL HEADACHE WITH DELIVERIES IN Type 2 diabetes mellitus (HCC) Unspecified asthma(493.90) PAST SURGICAL HISTORY Procedure Laterality Date DELIVERY ONLY 2008,10/14/2009 , low cervicalx2 DELIVERY ONLY 06/06/2013 , low transverse COLONOSCOPY FLX DX W/COLLJ SPEC WHEN PFRMD 11/28/2013 Colonoscopy ESOPHAGOGASTRODUODENOSC OPY TRANSORAL DIAGNOSTIC 11/28/2013 EGD HYSTEROSCOPY BX W/WO DANDC 08/14/2019 hysteroscoy DANDC w/ mirena insertion LIG/TRNSXJ FLP TUBE ABDL/VAG APPR UNI/BI 06/06/2013 Tubal ligation REMOVAL OF GALLBLADDER 10/07/2018 [place] REPAIR UMBILICAL HERNIA 06/20/[address] medium mesh [facility] FAMILY HISTORY Problem Relation Age of Onset Hypertension Father Diabetes Father Lipids Father Asthma Mother Hypertension Mother Breast Cancer Mother Diabetes Mother Strabismus Sister Cancer Maternal Grandfather LUNG CANCER Heart Maternal Grandmother SD Cancer Paternal Grandfather THROAT CANCER Breast Cancer Maternal Aunt Breast Cancer Paternal Aunt Coronary Artery Disease No Family History Thyroid No Family History Blood Disease No Family History Blood Clots No Family History Factor 5 Leiden No Family History DVT No Family History Stroke No Family History Systemic Lupus Erythematosus No Family History Multiple Sclerosis No Family History Bipolar disorder No Family History Schizophrenia No Family History Alzheimer's Disease No Family History Dementia No Family History Parkinson?s Disease No Family History Aneurysm No Family History COPD No Family History Kidney Disease No Family Hi (more content not included)... Normal [facility] APAP SerPl-mCncon 08-20-2022 Acetaminophen [Mass/Vol] ug/mL Low 10-30 [facility] Comment on above: Order Comment: Speci men Type: BLOOD SPECIMEN Ordering Facility: [facility] Address: [address] [place] [address] [place] [address] Result Comment: Toxi c > 150 ug/mL 4 hours post ingestion The Dragan Coto nomogram can be used to estimate the probability of hepatotoxicity via the relationship of plasma acetaminophen concentration to the post ingestion interval. (Kory. Pediatrics. 1975. 55:871 to 876 and Dragan et al. [employer] Att[employer] Med. 1981. 141:380 to 385). Reference ranges and high/low indicator flags are provided as general guidelines only. The treating physician must determine appropriate target levels/dosing based on the specific clinical situation. Performed By: #### 2 4321-2 #### [facility] CLIA [id number] [address] [place] [address] [place] Basic metabolic 2000 panelon 08-20-2022 Anion gap [Moles/Vol] 12 mmol/L Normal 9-18 [facility] Comment on above: Order Comment: Speci men Type: BLOOD SPECIMEN Ordering Facility: [facility] Address: [address] [place] [address] Performed By: #### 2 4321-2 #### [facility] CLIA [id number] [address] [place] [address] [place] Calcium [Mass/Vol] 8.9 mg/dL Normal 8.5-10.2 [facility] Comment on above: Order Comment: Speci men Type: BLOOD SPECIMEN Ordering Facility: [facility] Address: [address] [place] [address] Performed By: #### 2 4321-2 #### [facility] CLIA [id number] [address] [place] Chloride [Moles/Vol] 96 mmol/L Low 97-105 [facility] Comment on above: Order Comment: Speci men Type: BLOOD SPECIMEN Ordering Facility: [facility] Address: [address] [place] [address] Performed By: #### 2 4321-2 #### [facility] CLIA [id number] [address] [place] CO2 [Moles/Vol] 24 mmol/L Normal 22-30 [facility] Comment on above: Order Comment: Speci men Type: BLOOD SPECIMEN Ordering Facility: [facility] Address: [address] [place] [address] Performed By: #### 2 4321-2 #### [facility] CLIA [id number] [address] [place] Creatinine [Mass/Vol] 0.61 mg/dL Normal 0.58-0.96 [facility] Comment on above: Order Comment: Speci men Type: BLOOD SPECIMEN Ordering Facility: [facility] Address: [address] [place] [address] Performed By: #### 2 4321-2 #### [facility] CLIA [id number] [address] [place] [address] [place] ESTIMATED GLOMERULAR FILTRATION RATE 118 mL/min/1.73m??? Normal >=60 [facility] Comment on above: Order Comment: Radha antwon Type: BLOOD SPECIMEN Ordering Facility: [facility] Address: [address] [place] [address] Result Comment: Kayleigh mated Glomerular Filtration Rate (eGFR) is calculated using the 2020 CKD-EPI creatinine equation. This equation utilizes serum creatinine, sex, and age as parameters. The creatinine assay has traceable calibration to isotope dilution-mass spectrometry. Refer to KDIGO guidelines for clinical interpretation. In patients with unstable renal function, e.g. those with acute kidney injury, the eGFR may not accurately reflect actual GFR. Performed By: #### 2 4321-2 #### [facility] CLIA [id number] [address] [place] [address] [place] Glucose [Mass/Vol] 277 mg/dL High 74-99 [facility] Comment on above: Order Comment: Specnando kapoor Type: BLOOD SPECIMEN Ordering Facility: [facility] Address: [address] [place] [address] Result Comment: The [place] Diabetes Association (ADA) provides guidance for cutoff values for fasting glucose and random glucose. The ADA defines fasting as no caloric intake for at least 8 hours. Fasting plasma glucose results between 100 to 125 mg/dL indicate increased risk for diabetes (prediabetes). Fasting plasma glucose results greater than or equal to 126 mg/dL meet the criteria for diagnosis of diabetes. In the absence of unequivocal hyperglycemia, results should be confirmed by repeat testing. In a patient with classic symptoms of hyperglycemia or hyperglycemic crisis, random plasma glucose results greater than or equal to 200 mg/dL meet the criteria for diagnosis of diabetes. Reference: Standards of Medical Care in Diabetes 2016, [place] [employer] Association. Diabetes Care. 2016.39(Suppl 1). Performed By: #### 2 4321-2 #### [facility] CLIA [id number] [address] [place] [address] [place] Potassium [Moles/Vol] 3.7 mmol/L Normal 3.7-5.1 [facility] Comment on above: Order Comment: Speci men Type: BLOOD SPECIMEN Ordering Facility: [facility] Address: [address] [place] [address] Performed By: #### 2 4321-2 #### [facility] CLIA [id number] [address] Sodium [Moles/Vol] 132 mmol/L Low 136-144 [facility] Comment on above: Order Comment: Speci men Type: BLOOD SPECIMEN Ordering Facility: [facility] Address: [address] [place] [address] Performed By: #### 2 4321-2 #### [facility] CLIA [id number] [address] Urea nitrogen [Mass/Vol] 7 mg/dL Normal 7-21 [facility] Comment on above: Order Comment: Speci men Type: BLOOD SPECIMEN Ordering Facility: [facility] Address: [address] [place] [address] Performed By: #### 2 4321-2 #### [facility] CLIA [id number] [address] OF [facility] CBC panel Auto (Bld)on 08-20 Erythrocyte distribution width (RBC) [Ratio] 15.2 % High 11.5-15.0 [facility] Comment on above: Order Comment: Speci men Type: BLOOD SPECIMEN Ordering Facility: [facility] Address: [address] [place] [address] Performed By: #### 2 4321-2 #### [facility] CLIA [id number] [address] Hematocrit (Bld) [Volume fraction] 37.8 % Normal 36.0-46.0 [facility] Comment on above: Order Comment: Speci men Type: BLOOD SPECIMEN Ordering Facility: [facility] Address: [address] [place] [address] Performed By: #### 2 4321-2 #### [facility] CLIA [id number] [address] OF [facility] Hemoglobin (Bld) [Mass/Vol] 12.7 g/dL Normal 11.5-15.5 [facility] Comment on above: Order Comment: Speci men Type: BLOOD SPECIMEN Ordering Facility: [facility] Address: [address] [place] [address] Performed By: #### 2 4321-2 #### [facility] CLIA [id number] [address] MCH (RBC) [Entitic mass] 29.3 pg Normal 26.0-34.0 [facility] Comment on above: Order Comment: Speci men Type: BLOOD SPECIMEN Ordering Facility: [facility] Address: [address] [place] [address] Performed By: #### 2 4321-2 #### [facility] CLIA [id number] [address] MCHC (RBC) [Mass/Vol] 33.6 g/dL Normal 30.5-36.0 [facility] Comment on above: Order Comment: Speci men Type: BLOOD SPECIMEN Ordering Facility: [facility] Address: [address] [place] [address] Performed By: #### 2 4321-2 #### [facility] CLIA [id number] [address] MCV (RBC) [Entitic vol] 87.3 fL Normal 80.0-100.0 [facility] Comment on above: Order Comment: Speci men Type: BLOOD SPECIMEN Ordering Facility: [facility] Address: [address] [place] [address] Performed By: #### 2 4321-2 #### [facility] CLIA [id number] [address] Platelet mean volume (Bld) [Entitic vol] 10.7 fL Normal 9.0-12.7 [facility] Comment on above: Order Comment: Speci men Type: BLOOD SPECIMEN Ordering Facility: [facility] Address: [address] [address] Performed By: #### 2 4321-2 #### [facility] CLIA [id number] [address] Platelets (Bld) [#/Vol] 221 10*3/uL Normal 150-400 [facility] Comment on above: Order Comment: Speci men Type: BLOOD SPECIMEN Ordering Facility: [facility] Address: [address] [place] [address] Performed By: #### 2 4321-2 #### [facility] CLIA [id number] [address] RBC (Bld) [#/Vol] 4.33 10*6/uL Normal 3.90-5.20 [facility] Comment on above: Order Comment: Speci men Type: BLOOD SPECIMEN Ordering Facility: [facility] Address: [address] [place] [address] Performed By: #### 2 4321-2 #### [facility] CLIA [id number] [address] WBC (Bld) [#/Vol] 6.61 10*3/uL Normal 3.70-11.00 [facility] Comment on above: Order Comment: Speci men Type: BLOOD SPECIMEN Ordering Facility: [facility] Address: [address] [place] [address] Performed By: #### 2 4321-2 #### [facility] CLIA [id number] [address] BRAIN ATTACK WO IVCONon 1 10-20-2021 CT BRAIN ATTACK WO IVCON * * *Final Report* * * DATE OF EXAM: Aug 20 2022 1:26PM [facility] - CT BRAIN ATTACK WO IVCON / PROCEDURE REASON: Focal neuro deficit, new, fixed, or worsening, 4.5 to 24 hours, NIHSS 6 or great * * * * Physician Interpretation * * * * EXAMINATION: CT BRAIN ATTACK WO IVCON CLINICAL HISTORY: Focal neuro deficit, stroke alert, confusion. Brain attack. TECHNIQUE: Routine CT of the brain without IV contrast. MQ: CTBA_4 CT Radiation dose: Integrated CT Dose-Length Product (DLP) for this visit = mGy*cm CT Dose Reduction Employed: No dose reduction techniques were required COMPARISON: None. RESULT: Acute ischemic change: None. ASPECT Score = 10 Hemorrhage: No evidence of acute intracranial hemorrhage. ECASS hemorrhagic transformation score: Not Applicable Mass Lesion / Mass Effect: There is no evidence of an intracranial mass or extraaxial fluid collection. No significant mass effect. Chronic change: None. Parenchyma: There is no significant volume loss. The brain parenchyma is otherwise within normal limits for age. Ventricles: Normal caliber and morphology. Other: The visualized calvarium, skull base, orbits and extracranial soft tissues are normal. Coal Sample Tester (topogram) images: No additional findings. IMPRESSION: No CT evidence of acute intracranial abnormalities. CRITICAL TEST/RESULTS: Notification initiated at 13:[address] Bermudez on 08/20/2022 at 13:36 time. CR_1 Data Collection Specialist: MELVIN Transcribe Date/Time: Aug 20 2022 1:31P Dictated by : MARC RAZO MD This examination was interpreted and the report reviewed and electronically signed by: MARC RAZO MD on Aug 20 2022 1:36PM EST [id number] CRITICAL!! Invalid Interpretation Code [facility] CTA HEAD W IVCONon 2 CTA HEAD W IVCON * * *Final Report* * * DATE OF EXAM: Aug 20 2022 1:37PM [facility] - CTA HEAD W IVCON / PROCEDURE REASON: Focal neuro deficit, new, fixed, or worsening, 4.5 to 24 hours, NIHSS < 6, strok * * * * Physician Interpretation * * * * EXAMINATION: CTA HEAD W IVCON, CTA NECK W IVCON CLINICAL HISTORY: Confusion, focal neuro deficit, dysarthria. Possible stroke. TECHNIQUE: High resolution axial images were obtained through the head, neck and superior mediastinum following bolus administration of intravenous contrast for CT angiography. 3D maximum intensity projection images were created, reviewed and archived . MQ: CTABNPlus_4 Contrast: 100 mL IV Dose-Length Product (DLP): mGy*cm. CT Dose Reduction Employed: No dose reduction techniques were required COMPARISON: CT head same day. RESULT: CT ARTERIOGRAM: Extracranial Circulation: Aortic Arch: There is no significant stenosis in the proximal brachiocephalic vessels. Carotid Stenosis: Right Common: No significant stenosis. Right Internal Carotid Plaque: No significant plaque formation. Right Internal Carotid Stenosis (% by NASCET Criteria): No flow-limiting stenosis. Left Common: No significant stenosis. Left Internal Carotid Plaque: No significant plaque formation. Left Internal Carotid Stenosis (% by NASCET Criteria): No flow limiting stenosis. Cervical Vertebral Arteries: Patency: Bilateral Dominance: Codominant Intracranial Circulation: Limited evaluation of intracranial circulation due to poor contrast opacification of arterial structures. No gross evidence of large proximal vessel occlusion within limitation of this examination. Repeat examination may be obtained, as clinically warranted. Coal Sample Tester (topogram) images: No additional findings. IMPRESSION: 1. Limited evaluation of intracranial circulation due to poor contrast opacification of arterial structures. No gross evidence of large proximal vessel occlusion within limitation of this examination. Repeat examination may be obtained, as clinically warranted. 2. No high-grade stenosis or focal occlusion involving cervical vasculature. No evidence of acute dissection. Arterial blood flow was measured to detect acute large vessel occlusion by computer aided detection software: Not Performed. Concordance between software and imaging review: Not Applicable. Data Collection Specialist: PSCB Transcribe Date/Time: Aug 20 2022 2:01P Dictated by : MARC RAZO MD This examination was interpreted and the report reviewed and electronically signed by: MARC RAZO MD on Aug 20 2022 2:20PM EST [id number] Normal [facility] CTA NECK W IVCONon 2 CTA NECK W IVCON * * *Final Report* * * DATE OF EXAM: Aug 20 2022 1:37PM [facility] - CTA NECK W IVCON / PROCEDURE REASON: Focal neuro deficit, new, fixed, or worsening, 4.5 to 24 hours, NIHSS < 6, strok * * * * Physician Interpretation * * * * EXAMINATION: CTA HEAD W IVCON, CTA NECK W IVCON CLINICAL HISTORY: Confusion, focal neuro deficit, dysarthria. Possible stroke. TECHNIQUE: High resolution axial images were obtained through the head, neck and superior mediastinum following bolus administration of intravenous contrast for CT angiography. 3D maximum intensity projection images were created, reviewed and archived . MQ: CTABNPlus_4 Contrast: 100 mL IV Dose-Length Product (DLP): mGy*cm. CT Dose Reduction Employed: No dose reduction techniques were required COMPARISON: CT head same day. RESULT: CT ARTERIOGRAM: Extracranial Circulation: Aortic Arch: There is no significant stenosis in the proximal brachiocephalic vessels. Carotid Stenosis: Right Common: No significant stenosis. Right Internal Carotid Plaque: No significant plaque formation. Right Internal Carotid Stenosis (% by NASCET Criteria): No flow-limiting stenosis. Left Common: No significant stenosis. Left Internal Carotid Plaque: No significant plaque formation. Left Internal Carotid Stenosis (% by NASCET Criteria): No flow limiting stenosis. Cervical Vertebral Arteries: Patency: Bilateral Dominance: Codominant Intracranial Circulation: Limited evaluation of intracranial circulation due to poor contrast opacification of arterial structures. No gross evidence of large proximal vessel occlusion within limitation of this examination. Repeat examination may be obtained, as clinically warranted. Coal Sample Tester (topogram) images: No additional findings. IMPRESSION: 1. Limited evaluation of intracranial circulation due to poor contrast opacification of arterial structures. No gross evidence of large proximal vessel occlusion within limitation of this examination. Repeat examination may be obtained, as clinically warranted. 2. No high-grade stenosis or focal occlusion involving cervical vasculature. No evidence of acute dissection. Arterial blood flow was measured to detect acute large vessel occlusion by computer aided detection software: Not Performed. Concordance between software and imaging review: Not Applicable. Data Collection Specialist: MELVIN Transcribe Date/Time: Aug 20 2022 2:01P Dictated by : MARC RAZO MD This examination was interpreted and the report reviewed and electronically signed by: MARC RAZO MD on Aug 20 2022 2:20PM EST [id number] Normal [facility] ECG COMPLETEon 08-20-2022 ECG COMPLETE Ventricular Rate : 1 09 BPM Atrial Rate : 109 BPM P-R Interval : 138 ms QRS Duration : 74 ms Q-T Interval : 348 ms QTC Calculation(Bazett) : 468 ms Calculated P [place] : 18 degrees Calculated R [place] : -5 degrees Calculated T [place] : 16 degrees SINUS TACHYCARDIA LEFTWARD AXIS MINIMAL VOLTAGE CRITERIA FOR LVH, MAY BE NORMAL VARIANT CANNOT RULE OUT ANTERIOR INFARCT , AGE UNDETERMINED ABNORMAL ECG NO PREVIOUS ECGS AVAILABLE Confirmed by MD AMBROSIO VINAYAK ([id number]) on 08/24/2022 7:56:52 AM NAME : REINALDO WARREN PID : [id number] : 1985 Gender : Female Race : ORD : [id number] Procedure Date : Aug 20 2022 13:06:21 Edit Date : Aug 24 2022 07:58:29 Diagnosis: SINUS TACHYCARDIA LEFTWARD AXIS MINIMAL VOLTAGE CRITERIA FOR LVH, MAY BE NORMAL VARIANT CANNOT RULE OUT ANTERIOR INFARCT , AGE UNDETERMINED ABNORMAL ECG NO PREVIOUS ECGS AVAILABLE Confirmed by MD AMBROSIO VINAYAK ([id number]) on 08/24/2022 7:56:52 AM Test Reason : Stroke Location : 150 : [facility] Overread By : MD AMBROSIO VINAYAK Edited By : MD AMBROSIO VINAYAK Referred By : , Acquired by : MIRI NOLAN [facility] ED NOTEon 08-20-2022 ED NOTE HNO ID: [id number] Author: Ros Nesbitt RN Service: ? Author Type: Registered Nurse Type: ED Notes Filed: 08/20/2022 4:15 PM Note Text: [facility] contacted Aware of need for quality assurance monitor chassis ETA 45 min [facility] ED NOTE HNO ID: [id number] Author: Ros Nesbitt RN Service: ? Author Type: Registered Nurse Type: ED Notes Filed: 08/20/2022 4:12 PM Note Text: Bed assignment [facility] 8102-2 Report [id number] [facility] ED NOTE HNO ID: [id number] Author: Agustina Stephens RN Service: Emergency Medicine Author Type: Registered Nurse Type: ED Notes Filed: 08/20/2022 2:42 PM Note Text: Pt not a candidate for thrombolytics, Q15 neuro checks discontinued [facility] ED NOTE HNO ID: [id number] Author: Agustina Stephens RN Service: Emergency Medicine Author Type: Registered Nurse Type: ED Notes Filed: 08/20/2022 1:06 PM Note Text: Attempted to call spouse, he did not answer the phone [facility] ED PROV NOTEon 08-20-2022 ED PROV NOTE HNO ID: [id number] Author: Angie Guzman DO Service: Emergency Medicine Author Type: Physician Type: ED Provider Notes Filed: 08/20/2022 5:12 PM Note Text: ED Provider Note Patient Name: Reinaldo Wraren : 1985 SERVICE DATE: 08/20/22 History Patient presents with: Mental Status Changes Seizures Reinaldo Warren is a 37 year old female with history of multiple chronic medical problems who presents with Mental Status Changes and Seizures. - Symptoms began prior to arrival - unknown when last known well - Timing: constant - Mental Status Changes and Seizures is exacerbated by nothing. - Mental Status Changes and Seizures is not exacerbated by anything. - Symptoms are associated with confusion, fall. - Symptoms are not associated with abdominal pain, chest pain, fever, shortness of breath, vomiting, cough. Patient presents via EMS with confusion and EMS reports that the patient had a seizure that they witnessed. The patient is alert and oriented to person and place, confused to time and her age. She reports to me that she had a seizure. She states that she feels that she has soreness to the inside of the right side of her cheek and thinks she may have bit the side of her cheek. She states that she did not have bladder incontinence. She states she does not member the seizure, but states that she felt confused. She states that she did fall. She states that she has a history of seizures, but has not taken her medication for months. She states she also has a history of stroke. She states that she has a mild headache. She denies neck or back pain. She denies chest pain, shortness of breath or abdominal pain. No vomiting. She denies recent fever, cough, or urinary symptoms. PAST MEDICAL HISTORY Diagnosis Date Diabetes mellitus of mother, complicating , childbirth, or the puerperium, unspecified as to episode of care(648.00) Gestational diabetes Dysthymic disorder Depression (non-psychotic),postpar ashanti Essential hypertension, benign Hemorrhoids 05/19/2011 History of gestational diabetes 10/31/2012 10/31/2012Patient had gestational diabetes with her last 2 pregnancies. She was on glyburide with the that she delivered in 2009. She was insulin-dependent her last . She delivered both of those pregnancies in [place]. Patient is obese. 3 hour G TT ordered by Dr. Jennings. Migraine, unspecified, with intractable migraine, so stated, without mention of status migrainosus Migraine Nipple discharge 02/19/2016 PMH - PAST MEDICAL HISTORY OF DYSLEXIA PMH - PAST MEDICAL HISTORY OF 1988 FRACTURED LEFT LEG PMH - PAST MEDICAL HISTORY OF 01/2007 HOSPITALIZED FOR RUPTURED OVARIAN CYST Seizure disorder (HCC) Seizures (HCC) SPINAL HEADACHE WITH DELIVERIES IN Type 2 diabetes mellitus (HCC) Unspecified asthma(493.90) PAST SURGICAL HISTORY Procedure Laterality Date DELIVERY ONLY 2008,10/14/2009 , low cervicalx2 DELIVERY ONLY 06/06/2013 , low transverse COLONOSCOPY FLX DX W/COLLJ SPEC WHEN PFRMD 11/28/2013 Colonoscopy ESOPHAGOGASTRODUODENOSC OPY TRANSORAL DIAGNOSTIC 11/28/2013 EGD HYSTEROSCOPY BX W/WO DANDC 08/14/2019 hysteroscoy DANDC w/ mirena insertion LIG/TRNSXJ FLP TUBE ABDL/VAG APPR UNI/BI 06/06/2013 Tubal ligation REMOVAL OF GALLBLADDER 10/07/2018 [place] REPAIR UMBILICAL HERNIA 06/20/[address] medium mesh [facility] FAMILY HISTORY Problem Relation Age of Onset Hypertension Father Diabetes Father Lipids Father Asthma Mother Hypertension Mother Breast Cancer Mother Diabetes Mother Strabismus Sister Cancer Maternal Grandfather LUNG CANCER Heart Maternal Grandmother SD Cancer Paternal Grandfather THROAT CANCER Breast Cancer Maternal Aunt Breast Cancer Paternal Aunt Coronary Artery Disease No Family History Thyroid No Family History Blood Disease No Family History Blood Clots No Family History Factor 5 Leiden No Family History DVT No Family History Stroke No Family History Systemic Lupus Erythematosus No Family History Multiple Sclerosis No Family History Bipolar disorder No Family History Schizophrenia No Family History Alzheimer's Disease No Family History Dementia No Family History Parkinson?s Disease No Family History Aneurysm No Family History COPD No Family History Kidney Disease No Family History Social History Tobacco Use Smoking status: Former Packs/day: 0.50 Years: 10.00 Pack years: 5.00 Types: Cigarettes Quit date: 04/02/2019 Years since quittin.3 Smokeless tobacco: Never Vaping Use Vaping Use: Never used Substance and Sexual Activity Alcohol use: No Drug use: Never Sexual activity: Yes Partners: Male control/protection: Tubal Ligation ALLERGIES Allergen Reactions Augmentin [Amoxicil* Mental Status Change Shellfis (more content not included)... Normal [facility] Ethanol SerPl-mCncon 022 Ethanol [Mass/Vol] mg/dL Normal <11 [facility] Comment on above: Order Comment: Radha kapoor Type: BLOOD SPECIMEN Ordering Facility: [facility] Address: [address] [place] [address] Performed By: #### 2 4321-2 #### [facility] CLIA [id number] 1 [place] [address] [place] HCG Preg Ur Qlon 08-20-2022 HCG ( test) Ql (U) Negative Normal Negative [facility] Comment on above: Order Comment: Radha kapoor Type: BLOOD SPECIMEN Ordering Facility: [facility] Address: [address] [place] [address] Result Comment: This test is intended to aid in the early detection of . Very dilute urine samples, as indicated by a low specific gravity, may not contain sales representative uniforms levels of hCG. This test detects intact hCG only. This test does not reliably detect hCG degradation products, including free-beta subunit and beta-core fragment. Therefore, this test may show reduced reactivity in urine after 8 weeks gestation. A number of conditions other than , including trophoblastic disease and certain non-trophoblastic neoplasms cause elevated levels of hCG. As with any assay employing mouse antibodies, the possibility exists for interference by human anti-mouse antibodies (HAMA) in the specimen. The test provides a presumptive diagnosis for . Performed By: #### 2 4321-2 #### [facility] CLIA [id number] [address] [place] [address] STATES OF B[place] HIGH SENSITIVITY TROPONIN To n 08-20-2022 HIGH SENSITIVITY PATRICIA <6 Normal <12 [facility] Comment on above: Order Comment: Radha kapoor Type: BLOOD SPECIMEN Ordering Facility: [facility] Address: [address] [place] [address] Result Comment: When assessing risk for acute coronary syndromes: In patients undergoing blood draw greater than or equal to 2 hours from symptom onset, with history of very low to moderate risk and non-ischemic ECG, an initial hs-Troponin T less than 12 ng/L AND a 1 hour delta hs-Troponin T less than 3 ng/L should be considered very low risk for 30 day MACE. Performed By: #### 2 4321-2 #### [facility] CLIA [id number] [address] [place] [id number] [place] OF [place] HISTORY PHYSICALon HISTORY PHYSICAL HNO ID: [id number] Author: Juan Diego Guadalupe DO Service: Hospital Medicine Author Type: Physician Type: HANDP Filed: 08/20/2022 7:47 PM Note Text: DEPARTMENT OF HOSPITAL MEDICINE HISTORY AND PHYSICAL EXAM SERVICE DATE: 08/20/2022 SERVICE TIME: 7:23 PM Primary Care Physician: Sharon Foster MD NIGHT AND WEEKEND COVERAGE: [place] COVERAGE: From 7am - 7pm, please call sound After 7pm, please call cross cover pager #[phone] Subjective CHIEF COMPLAINT: AMS HPI: This is a 37 year old female with past medical history significant for diabetes, stroke and seizure disorder who presents with altered mental status. Patient was at [employer] this morning when she reportedly had 2 seizure-like events where she froze up and had some mild shaking. Her provides the history as she is still rather groggy and confused. She does not recognize her although she is able to say that she was told earlier that she had a seizure. He reports that she has had history of seizures ever since she had a stroke after her last . The patient previously has been on seizure medications however has been off them for several months after she ran out last time. She otherwise has not had any recent illness and denies nausea, vomiting, diarrhea, abdominal pain, shortness of breath or chest pain. She endorses headache slightly blurred vision from baseline. She denies any urinary symptoms. She reports some paresthesia in her right hand but generally maintains sensation on exam. She had no other complaints or concerns PAST MEDICAL HISTORY Diagnosis Date Diabetes mellitus of mother, complicating , childbirth, or the puerperium, unspecified as to episode of care(648.00) Gestational diabetes Dysthymic disorder Depression (non-psychotic),postpar ashanti Essential hypertension, benign Hemorrhoids 05/19/2011 History of gestational diabetes 10/31/2012 10/31/2012Patient had gestational diabetes with her last 2 pregnancies. She was on glyburide with the that she delivered in 2009. She was insulin-dependent her last . She delivered both of those pregnancies in [place]. Patient is obese. 3 hour G TT ordered by Dr. Jennings. Migraine, unspecified, with intractable migraine, so stated, without mention of status migrainosus Migraine Nipple discharge 02/19/2016 PMH - PAST MEDICAL HISTORY OF DYSLEXIA PMH - PAST MEDICAL HISTORY OF 1988 FRACTURED LEFT LEG PMH - PAST MEDICAL HISTORY OF 01/2007 HOSPITALIZED FOR RUPTURED OVARIAN CYST Seizure disorder (HCC) Seizures (HCC) SPINAL HEADACHE WITH DELIVERIES IN Type 2 diabetes mellitus (HCC) Unspecified asthma(493.90) PAST SURGICAL HISTORY Procedure Laterality Date DELIVERY ONLY 2008,10/14/2009 , low cervicalx2 DELIVERY ONLY 06/06/2013 , low transverse COLONOSCOPY FLX DX W/COLLJ SPEC WHEN PFRMD 11/28/2013 Colonoscopy ESOPHAGOGASTRODUODENOSC OPY TRANSORAL DIAGNOSTIC 11/28/2013 EGD HYSTEROSCOPY BX W/WO DANDC 08/14/2019 hysteroscoy DANDC w/ mirena insertion LIG/TRNSXJ FLP TUBE ABDL/VAG APPR UNI/BI 06/06/2013 Tubal ligation REMOVAL OF GALLBLADDER 10/07/2018 theresa [place] REPAIR UMBILICAL HERNIA 06/20/[address] medium mesh [facility] FAMILY HISTORY Problem Relation Age of Onset Hypertension Father Diabetes Father Lipids Father Asthma Mother Hypertension Mother Breast Cancer Mother Diabetes Mother Strabismus Sister Cancer Maternal Grandfather LUNG CANCER Heart Maternal Grandmother SD Cancer Paternal Grandfather THROAT CANCER Breast Cancer Maternal Aunt Breast Cancer Paternal Aunt Coronary Artery Disease No Family History Thyroid No Family History Blood Disease No Family History Blood Clots No Family History Factor 5 Leiden No Family History DVT No Family History Stroke No Family History Systemic Lupus Erythematosus No Family History Multiple Sclerosis No Family History Bipolar disorder No Family History Schizophrenia No Family History Alzheimer's Disease No Family History Dementia No Family History Parkinson?s Disease No Family History Aneurysm No Family History COPD No Family History Kidney Disease No Family History Social History Tobacco Use Smoking status: Former Packs/day: 0.50 Years: 10.00 Pack years: 5.00 Types: Cigarettes Quit date: 04/02/2019 Years since quittin.3 Smokeless tobacco: Never Vaping Use Vaping Use: Never used Substance Use Topics Alcohol use: No Drug use: Never MEDICATIONS: Reviewed see [facility] cyclobenzaprine (FLEXERIL) 10 mg tablet, Take 1 tablet by mouth three times daily as needed for muscle spasm., Disp: 30 tablet, Rfl: 1 busPIRone (BUSPAR) 10 mg tablet, Take 1 tablet by mouth twice daily., Disp: 180 tablet, Rfl: 0 PARoxetine (PAXIL) 40 mg tablet, Take 1 tablet by mouth once daily., Disp: 90 tablet, Rfl: 0 brexpiprazole (REXULTI) 1 mg tablet, Jimi (more content not included)... Normal [facility] HbA1c (Bld)on 08-20-2022 Average glucose Estimated from glycated hemoglobin (Bld) [Mass/Vol] 143 mg/dL Normal [facility] Comment on above: Order Comment: Radha kapoor Type: BLOOD SPECIMEN Ordering Facility: [facility] Address: [address] [place] [address] Result Comment: eAG: (Estimated average glucose) is a calculated value from HgbA1c and is sales representative uniforms of the average blood glucose level in the last 2-3 month period. Performed By: #### 3 2693-4 #### [facility] CLIA [id number] [address] STATES OF BIB HbA1c (Bld) [Mass fraction] 6.6 % High 4.3-5.6 [facility] Comment on above: Order Comment: Radha kapoor Type: BLOOD SPECIMEN Ordering Facility: [facility] Address: [address] [place] [address] Result Comment: [place] Diabetes Association guidelines indicate that patients with HgbA1c in the range 5.7-6.4% are at increased risk for development of diabetes, and intervention by lifestyle modification may be beneficial. HgbA1c greater or equal to 6.5% is considered diagnostic of diabetes. Performed By: #### 3 2693-4 #### [facility] CLIA [id number] [address] STATES [place] Lactate (Bld) [Moles/Vol]on 08-20-2022 Lactate [Moles/Vol] 2.0 mmol/L Normal 0.5-2.2 [facility] Comment on above: Order Comment: Speci men Type: BLOOD SPECIMEN Ordering Facility: [facility] Address: [address] [place] [address] Performed By: #### 3 2693-4 #### [facility] CLIA [id number] [address] STATES OF [facility] Lactate [Moles/Vol] 2.3 mmol/L High 0.5-2.2 [facility] Comment on above: Order Comment: Speci men Type: BLOOD SPECIMEN Ordering Facility: [facility] Address: [address] [place] [address] Performed By: #### 2 4321-2 #### [facility] CLIA [id number] [address] Lactate [Moles/Vol] 2.8 mmol/L High 0.5-2.2 [facility] Comment on above: Order Comment: Speci men Type: BLOOD SPECIMEN Ordering Facility: [facility] Address: [address] [place] [address] Performed By: #### 3 2693-4 #### [facility] CLIA [id number] [address] OF BIB Magnesium SerPl-mCncon 08-20 Magnesium [Mass/Vol] 1.8 mg/dL Normal 1.7-2.3 [facility] Comment on above: Order Comment: Speci men Type: BLOOD SPECIMEN Ordering Facility: [facility] Address: [address] [place] [address] Performed By: #### 3 2693-4 #### [facility] CLIA [id number] [address] OF BIB PT panel Coag (PPP)on 2021 INR Coag (PPP) [Relative time] 1.0 {INR} Normal 0.9-1.3 [facility] Comment on above: Order Comment: Speci men Type: BLOOD SPECIMEN Ordering Facility: [facility] Address: [address] [place] [address] Result Comment: Tammie min K Antagonist (VKA) Therapeutic Range: INR 2 to 3 (Target INR of 2.5) Note: For patients treated with VKA drugs, such as warfarin, the [place] [employer] 2012 Guideline recommends a therapeutic INR range of 2 to 3 (target INR of 2.5). This recommendation includes high-risk patients with antiphospholipid syndrome with previous arterial or venous thromboembolism, current-generation mechanical or bioprosthetic aortic heart valve replacement. Note: Patients with mechanical aortic valve replacement and additional risk factors for thromboembolic events (atrial fibrillation, previous thromboembolism, LV dysfunction, hypercoagulable conditions) or an older generation mechanical AVR (i.e., ball in-Cage) or any mechanical MVR should have a INR therapeutic range of 2.5 to 3.5 (target INR of 3). Joselyn GH, et al. Chest 2012, 141:7S-47S Deo CORTEZ et al. [facility] 2017, 70: 252-289 Performed By: #### 3 2693-4 #### [facility] CLIA [id number] [address] [place] [address] [place] PT Coag (PPP) [Time] 9.3 s Normal <13.1 [facility] Comment on above: Order Comment: Speci men Type: BLOOD SPECIMEN Ordering Facility: [facility] Address: [address] [place], [place] [id number] Performed By: #### 3 2693-4 #### [facility] CLIA [id number] [address] [place] [address] [place] SARS-CoV-2 RNA Resp Ql TAMMY+p robeon 08-20-2022 SARS-CoV-2 (COVID-19) RNA TAMMY+probe Ql (Resp) COVID 19 RESULT: SARS-CoV-2 (Agent of COVID-19) Not Detected by RT-PCR or equivalent method. This test has been authorized by FDA under an Emergency Use Authorization (EUA). Normal [facility] Comment on above: Performed By: #### 9 4500-6 ####[facility] [id number] [facility] [address] STATES OF [place]IB Salicylates SerPl-mCncon Salicylates [Mass/Vol] mg/dL Low 3.0-30.0 [facility] Comment on above: Order Comment: Speci men Type: BLOOD SPECIMEN Ordering Facility: [facility] Address: [address] [place] [address] Result Comment: The therapeutic range varies and has been reported to be 3.0 to 10.0 mg/dL for anti pyretic/analgesic conditions and 15.0 to 30.0 mg/dL for anti inflammatory/rheumatic fever conditions. Ranges published by the instrument seafood specialist. Reference ranges and high/low indicator flags are provided as general guidelines only. The treating physician must determine appropriate target levels/dosing based on the specific clinical situation. Performed By: #### 2 4321-2 #### [facility] CLIA [id number] [address] [place] [address] TOX SCREEN ROUT URon Amphetamines Confirm (U) [Mass/Vol] Negative Normal Negative [facility] Comment on above: Order Comment: Speci men Type: URINE SPECIMEN Ordering Facility: [facility] Address: [address] [place] [address] Result Comment: Cuto ff threshold at 1000 ng/mL. Performed By: #### U TOX2 #### [facility] CLIA [id number] [address] [place] [address] [place] BIB BARBITURATES, URINE Negative Normal Negative [facility] Comment on above: Order Comment: Speci men Type: URINE SPECIMEN Ordering Facility: [facility] Address: [address] [place] [address] Result Comment: Cuto ff threshold at 200 ng/mL. Performed By: #### U TOX2 #### [facility] CLIA [id number] [address] [place] [address] [place] BENZODIAZEPINES, UR Negative Normal Negative [facility] Comment on above: Order Comment: Speci men Type: URINE SPECIMEN Ordering Facility: [facility] Address: [address] [place] [address] Result Comment: Cuto ff threshold at 200 ng/mL. Performed By: #### U TOX2 #### [facility] CLIA [id number] [address] [place] [address] [place] CANNABINOIDS,URINE Negative Normal Negative [facility] Comment on above: Order Comment: Speci men Type: URINE SPECIMEN Ordering Facility: [facility] Address: [address] [place] [address] Result Comment: Cuto ff threshold at 50 ng/mL. Performed By: #### U TOX2 #### [facility] CLIA [id number] [address] [place] [address] [place] Cocaine Ql (U) Negative Normal Negative [facility] Comment on above: Order Comment: Speci men Type: URINE SPECIMEN Ordering Facility: [facility] Address: [address] [place] [address] Result Comment: Cuto ff threshold at 300 ng/mL. Performed By: #### U TOX2 #### [facility] CLIA [id number] [address] [place] [address] [place] Ethanol (U) [Mass/Vol] <11 Normal <11 [facility] Comment on above: Order Comment: Speci men Type: URINE SPECIMEN Ordering Facility: [facility] Address: [address] [place] [address] Performed By: #### U TOX2 #### [facility] CLIA [id number] [address] [place] [id number] [place] Opiates Screen Ql (U) Negative Normal Negative [facility] Comment on above: Order Comment: Speci men Type: URINE SPECIMEN Ordering Facility: [facility] Address: [address] [place] [address] Result Comment: Cuto ff threshold at 300 ng/mL. Performed By: #### U TOX2 #### [facility] CLIA [id number] [address] [place] [id number] [place] oxyCODONE cutoff Screen (U) [Mass/Vol] Negative Normal Negative [facility] Comment on above: Order Comment: Speci men Type: URINE SPECIMEN Ordering Facility: [facility] Address: [address] [place] [address] Result Comment: Cuto ff threshold at 100 ng/mL. Performed By: #### U TOX2 #### [facility] CLIA [id number] [address] [place] [address] [place] BIB Phencyclidine Ql (U) Negative Normal Negative [facility] Comment on above: Order Comment: Speci men Type: URINE SPECIMEN Ordering Facility: [facility] Address: [address] [place] [address] Result Comment: Cuto ff threshold at 25 ng/mL. Performed By: #### U TOX2 #### [facility] CLIA [id number] [address] [place] [address] [place] TSH SerPl-aCncon 08-20-2022 TSH Qn 3.040 m[IU]/L Normal 0.270-4.200 [facility] Comment on above: Order Comment: Speci men Type: BLOOD SPECIMEN Ordering Facility: [facility] Address: [address] [place] [address] Result Comment: If t he patient is , TSH reference range varies by gestational period: First Trimester (weeks 9-12): 0.180-2.990 mIU/L Second Trimester: 0.110-3.980 mIU/L Third Trimester: 0.480-4.710 mIU/L Irving Simpson et al. A Practical Approach for the Verifications and Determination of Site- and Trimester-Specific Reference Intervals for Thyroid Function tests in . Thyroid, 2019:29:3:412-420. Rodríguez [address], et al. 2017 Guidelines of the [place] Thyroid Association for the Diagnosis and Management of Thyroid Disease during and the . Thyroid, 2017:27:3:315-389. Performed By: #### 3 2693-4 #### [facility] CLIA [id number] [address] STATES OF BIB Urinalysis complete panel (U )on 08-20-2022 Bilirubin Ql (U) Negative Normal Negative [facility] Comment on above: Order Comment: Speci men Type: BLOOD SPECIMEN Ordering Facility: [facility] Address: [address] [place] [address] Performed By: #### 2 4321-2 #### [facility] CLIA [id number] [address] OF BIB Clarity (Unsp spec) Clear Normal Clear [facility] Comment on above: Order Comment: Speci men Type: BLOOD SPECIMEN Ordering Facility: [facility] Address: [address] [place] [address] Performed By: #### 2 4321-2 #### [facility] CLIA [id number] [address] OF [facility] Color (U) Yellow Normal Yellow [facility] Comment on above: Order Comment: Speci men Type: BLOOD SPECIMEN Ordering Facility: [facility] Address: [address] [place] [address] Performed By: #### 2 4321-2 #### [facility] CLIA [id number] [address] OF BIB Glucose Test strip (U) [Mass/Vol] 3+ Abnormal Negative [facility] Comment on above: Order Comment: Speci men Type: BLOOD SPECIMEN Ordering Facility: [facility] Address: [address] [place] [address] Performed By: #### 2 4321-2 #### [facility] CLIA [id number] [address] OF BIB Hemoglobin Ql (U) 1+ Abnormal Negative [facility] Comment on above: Order Comment: Speci men Type: BLOOD SPECIMEN Ordering Facility: [facility] Address: [address] [place] [address] Performed By: #### 2 4321-2 #### [facility] CLIA [id number] [address] OF [facility] Ketones Ql (U) Negative Normal Negative [facility] Comment on above: Order Comment: Speci men Type: BLOOD SPECIMEN Ordering Facility: [facility] Address: [address] [place] [address] Performed By: #### 2 4321-2 #### [facility] CLIA [id number] [address] Leukocyte esterase Test strip Ql (U) Negative Normal Negative [facility] Comment on above: Order Comment: Speci men Type: BLOOD SPECIMEN Ordering Facility: [facility] Address: [address] [place] [address] Performed By: #### 2 4321-2 #### [facility] CLIA [id number] [address] Nitrite Ql (U) Negative Normal Negative [facility] Comment on above: Order Comment: Speci men Type: BLOOD SPECIMEN Ordering Facility: [facility] Address: [address] [place] [address] Performed By: #### 2 4321-2 #### [facility] CLIA [id number] [address] [place] [address] pH (U) 5.5 [pH] Normal 5.0-8.0 [facility] Comment on above: Order Comment: Speci men Type: BLOOD SPECIMEN Ordering Facility: [facility] Address: [address] [place] [address] Performed By: #### 2 1-2 #### [facility] CLIA [id number] [address] Protein (U) [Mass/Vol] Normal [facility] Comment on above: Order Comment: Speci men Type: BLOOD SPECIMEN Ordering Facility: [facility] Address: [address] [place] [address] Result Comment: Visi ble blood causes falsely elevated results for analyte Protein. Due to this limitation, Protein will not be reported for patients whose urine contains visible blood. Performed By: #### 2 4321-2 #### [facility] CLIA [id number] [address] RBC LM.HPF (Urine sed) [#/Area] 0-3 /HPF Normal 0-3 /HPF [facility] Comment on above: Order Comment: Speci men Type: BLOOD SPECIMEN Ordering Facility: [facility] Address: [address] [place] [address] Performed By: #### 2 4321-2 #### [facility] CLIA [id number] [address] Specific gravity (U) [Rel density] 1.010 Normal 1.005-1.030 [facility] Comment on above: Order Comment: Speci men Type: BLOOD SPECIMEN Ordering Facility: [facility] Address: [address] [place] [address] Performed By: #### 2 4321-2 #### [facility] CLIA [id number] [address] Urobilinogen Ql (U) 0.2 EU/dL Normal 0.2-1.0 EU/dL [facility] Comment on above: Order Comment: Speci men Type: BLOOD SPECIMEN Ordering Facility: [facility] Address: [address] [place] [address] Performed By: #### 2 4321-2 #### [facility] CLIA [id number] [address] WBC LM.HPF (Urine sed) [#/Area] 0-5 /HPF Normal 0-5 /HPF [facility] Comment on above: Order Comment: Speci men Type: BLOOD SPECIMEN Ordering Facility: [facility] Address: [address] [place] [address] Performed By: #### 2 4321-2 #### [facility] CLIA [id number] [address] STATES OF BIB XR CHEST 1V FRONTALon 2021 XR CHEST 1V FRONTAL * * *Final Report* * * DATE OF EXAM: Aug 20 2022 1:57PM LDX 5290 - XR CHEST 1V FRONTAL / PROCEDURE REASON: Focal neuro deficit, new, fixed, or worsening, 4.5 to 24 hours, NIHSS < 6, strok * * * * Physician Interpretation * * * * EXAMINATION: CHEST RADIOGRAPH (SINGLE VIEW AP OR PA) CLINICAL HISTORY: Focal neuro deficit, new, fixed, or worsening, 4.5 to 24 hours, NIHSS < 6, stroke suspected MQ: XC1_5 Comparison: 01/19/2012 RESULT: Lines, tubes, and devices: None. Lungs and pleura: Low lung volumes. Minimal left base atelectasis/scar. No consolidation. No lung mass. No pleural effusion. Cardiomediastinal silhouette: Normal cardiomediastinal silhouette. Other: . IMPRESSION: No acute radiographic abnormality. Data Collection Specialist: PSCB Transcribe Date/Time: Aug 20 2022 2:01P Dictated by : AMARILIS BACH MD This examination was interpreted and the report reviewed and electronically signed by: AMARILIS BACH MD on Aug 20 2022 2:02PM EST [id number] Normal [facility] aPTT PPPon 08-20-2022 aPTT Coag (PPP) [Time] 21.6 s Low 23.0-32.4 [facility] Comment on above: Order Comment: Speci men Type: BLOOD SPECIMEN Ordering Facility: [facility] Address: [address] [place], [place] [id number] Performed By: #### 3 [id number] #### [facility] CLIA [id number] [address] [place] [address] [place] GLUCOSE-POCTon 07-07-2022 Glucose [Mass/Vol] 165 mg/dL High 74 - 99 [facility] Comment on above: Performed By: #### [facility] [place] #### [place] [address] Provider Note - ED v3on 06-10 Provider Note - ED v3 Provider Note: Chart Review: ED NOTES ED NOTES: HPI: Is a 37-year-old female history of anxiety presents with a chief complaint of blurred vision and near syncope. She thought it might be her blood sugars at she stated she has been having trouble with her blood sugar lately. She also states this was preceded by a very tense feeling in her chest followed by a warm sensation going up into her chest as well. She felt hot. She thinks she was more likely having a panic issue. She does have anxiety. She is actually feeling better now without any treatment. She is in somewhat of a toxic environment at work. This is a new employment position for her and she just moved to this area. ROS: All systems are negative other than as noted in HPI. Physical Exam I have reviewed the triage vital signs. Const: Well nourished, well developed, appears stated age, no acute distress Eyes: PERRL, EOM intact, no conjunctival injection, vision grossly normal HENT: Neck supple without meningismus , Moist mucous membranes, no pharyengeal swelling or exudate CV: Regular rate and rhythm, Warm, well-perfused extremities. Chest non tender RESP: Lungs clear bilaterally, Unlabored respiratory effort GI: soft, non-tender, non-distended, no masses : MSK: No gross deformities appreciated Skin: Warm, dry. No rashes Neuro: Alert and oriented x4, GCS 15 , pulp operator II-XII grossly intact. Sensation and motor function of extremities grossly intact. Psych: Patient is tearful however denies any suicidal or homicidal ideation. No pressured speech. No delusions. No hallucinations. HISTORY OF PRESENTING ILLNESS REINALDO is a 37 year old Female and was seen by me at 07-Jul-2022 19:46 for a chief complaint of hyperglycemia (To ED per wheelchair c/o blurry vision and syncopal episode at work today. Pt reports that her blood sugars have been running high for several days at home. She denies any pain or injuries.)(1). Triage Information: Most recent Vital Sign Value Date Temp (F): 96.6 07-07-2022 19:12 Temp (C): 35.8 07-07-2022 19:12 Heart Rate (beats/min): 98 07-07-2022 19:12 Respirations (breaths/min): 16 07-07-2022 19:12 SpO2 (%): 99 07-07-2022 19:12 BP Systolic (mm Hg): 173 07-07-2022 19:12 BP Diastolic (mm Hg): 105 07-07-2022 19:12 PAST MEDICAL HISTORY ALLERGIES/INTOLERANCES: Allergy Allergen: codeine Type: Drug Reaction: Rash Allergen: Shell Fish Type: Food Reaction: Anaphylaxis HEALTH HISTORY: No documented data. OUTPATIENT MEDICATIONS: Home Medications Review Status for Reconciliation: N/A Med Status: N/A No documented data. SIGNIFICANT EVENTS: Past Medical History Description:seizures Description:Diabetes Description:hx dizziness Description:hx syncope Description:hypotension Description:PTSD Description:HTN Description:hemorroids Description:depression Description:mood disorder Description:asthma CRITICAL CARE RESULTS: Recent Lab Results: I have reviewed these laboratory results: Glucose_POCT 07-Jul-2022 19:28:00 ResultValue Glucose-POCT 165 H VITAL SIGNS: T PRBP SpO2O2(LPM) %FiO2 Method 07-Jul-2022 19:12:[id number]/10 5 99 room air, no respiratory support MDM MDM/ED COURSE: Patient is feeling better without any treatment. Her vision cleared up. I did spend some time just talking to her and explaining that a new job and moving to a new location are both very stressful. After discussing how she is doing we decided together that additional diagnostics would most likely not provide us any useful information. we will send her home with a p.o. [facility] DISPOSITION Diagnosis/Annotation: ED Dx Name:Anxiety Code:F41.9 Disposition: discharged Type: home CONSULT CRITICAL CARE TIME Is this a critically ill patient: no Electronic Signatures: Dimitry Hernandez) (Signed 07-Jul-2022 20:04) Authored: ED Notes, HPI, PMH, PE, Results/Vital Signs, MDM/ED Course, Clinical Impression, Attestation, Chart Review, Scores Last Updated: 07-Jul-2022 20:04 by Dimitry Hernandez) References: 1. Data Referenced From Triage - ED 07-Jul-2022 19:12 [facility] Risk Screen - Adult Emergenc n 07-07-2022 Risk Screen - Adult Emergency Preferred Language: Preferred Language: Preferred Language for Discussing Health Care (patient/designee)Alysha ashton Patient Preferred Pharmacy: Patient Preferred Pharmacy Statement: I have reviewed and updated the patient's preferred pharmacy selection for today's visit. Advanced Directives: Advance Directive/DNRno Advance Directive Information Givenpatient/family declined Family Violence Adult: Abuse Screen: Are you or have you been threatened or abused physically, emotionally, or sexually by anyoneno Learning Assessment (Patient): Learning Assessment (Patient): Patient is Able to be Assessed for Learningyes Factors Influencing Readiness to Learnanxiety Factors that Impact Ability to Learnvisual problems Devices/Methods Used to Communicatenone Learning Preferencesverbal instruction; written material Cultural Considerationsnone Developmental Considerationsnone Cheondoism Considerationsnone Learning Assessment (Other Learner): Learning Assessment (Other Learner): Other learner availableno Pressure Injury/TB/Substance: Pressure Injury: Pressure Injury Present on Admissionno Do you have a coughno Smoking Statusnever smoker Alcohol Usedenies Drug Usedenies Drug 2 Usedenies Admission Risk Screen: Significant IndicatorsComplete CAGE: CAGE: Is this an injured patient at a Trauma Center ([facility]/[place]): no Electronic Signatures: Lamar Medellin (RN) (Signed 07-Jul-2022 19:34) Authored: Preferred Language, Patient Preferred Pharmacy, Advanced Directives, Family Violence Adult, Learning Assessment (Patient), Learning Assessment (Other Learner), Pressure Injury/TB/Substance, Pressure Injury, CAGE Last Updated: 07-Jul-2022 19:34 by Lamar Medellin (RN) [facility] Triage - EDon 07-07-2022 Triage - ED Quick Triage: Are You no Have You Given In The Last 6 Weeksno Are You Currently Breastfeedingno The patient and/or guardian verbally acknowledges placement for services into the following (when Urgent Care Service hours are operating):emergency department Chart Review: ARRIVAL INFORMATION Mode of Arrival: private vehicle CHIEF COMPLAINT REINALDO WARREN is a Female patient with a chief complaint of hyperglycemia (To ED per wheelchair c/o blurry vision and syncopal episode at work today. Pt reports that her blood sugars have been running high for several days at home. She denies any pain or injuries.). Triage Date/Time: 07-Jul-2022 19:12 SYLVIA: 3 Pain Rating (0-10): 0 = None Pain location: denies Vital Signs: Temperature: 96.6F ( 35.8C) taken temporal Blood Pressure: 173/105 Mean: Heart Rate: 98 Respiratory Rate: 16 Pulse Oximetry: 99% on room air, no respiratory support. Weight: 209.4 pounds. Calculated 95.0 kg. [place] Coma Scale: Best Eye Response: (E4) spontaneous Best Motor Response: (M6) obeys commands Best Verbal Response: (V5) oriented [place] Score: 15 Cough lasting greater than 3 weeks: no Allergies: yes Mask applied: yes Last menstrual period: 09-Jun-2022 Patient has homicidal thoughts: no Symptom Notes: . Symptoms Are POSITIVE For: blurred vision and loss of consciousness. Symptoms Are Negative For: chills, confusion, dehydration, diaphoresis, headache, nausea and weakness. Risk Screens Suicide Risk Screen In the Past Month: Have you wished you were or wished you could go to sleep and not wake up no In the Past Month: Have you had any actual thoughts of killing yourself no In Your Lifetime: Have you ever done anything, started to do anything, or prepared to do anything to end your life no Hernandez Fall Scale Screening Has the patient fallen before (or is the patient in the ED as a result of a fall) has not had a fall Does the patient have an impaired gait does not have impaired gait Is the patient cognitively impaired not cognitively impaired Interventions: Hernandez Fall Interventions: LOW INTERVENTIONS: *patient oriented to surroundings and call system, * patient/family falls education completed and documented, *patients fall status communicated during bedside handoff, *whiteboard updated, *mode of toileting discussed with patient, *bed in low position with brakes locked, *call light in reach, * non-skid footwear TRAVEL HISTORY Travel History Coronavirus Screening: no exposure or symptoms Travel Exposure History: NO travel to International locations in the past 30 days PAIN Pain Scale Used: CARLEE Pain Rating (0-10): 0 = None Past Medical History: Past Medical History Reviewedyes asthma: Past Medical History, Active mood disorder: Past Medical History, Active depression: Past Medical History, Active hemorroids: Past Medical History, Active HTN: Past Medical History, Active PTSD: Past Medical History, Active hypotension: Past Medical History, Active hx syncope: Past Medical History, Active hx dizziness: Past Medical History, Active Diabetes: Past Medical History, Active seizures: Past Medical History, Active Electronic Signatures: Emilia Lucas) (Signed 07-Jul-2022 19:17) Entered: Risk Screens, Pain, Travel History, Chart Review, Scores, Past Medical History Authored: Quick Triage, Risk Screens, Pain, Travel History, Chart Review, Scores, Past Medical History Lamar Medellin) (Signed 07-Jul-2022 19:36) Authored: Quick Triage, Past Medical History Last Updated: 07-Jul-2022 19:36 by Lamar Medellin (RN) [facility] 02-15-2022 CNPN Telephone (MEPGENESIS) REINALDO WARREN ([id number]) 1985 F Date Time Provider Department 02/15/22 NILDA LAUREN During your visit today, we recorded the following information about you: Nilda Lauren MD 02/15/2022 5:54 PM Signed Spoke with Ms. Warren following her message. She stopped taking the Trulicity and Basaglar because I thought I am a superwoman and can control the diabetes without medications, and her glucose levels have been significantly elevated. She went to the emergency room yesterday and was given insulin, and was instructed to take Basaglar 20 units twice a day. She took the Basaglar but her glucose levels remain in the 300?400 range. She is planning to restart the Trulicity tomorrow. We discussed continuing taking Basaglar, and I will prescribe short acting insulin Fiasp 8 units with meals, and I asked her to let me know if her glucose levels remain persistently elevated over the next few days. She has a follow-up appointment with me next week Nilda Lauren MD Allergies As of Date: 02/15/2022 Noted Allergy Reaction AUGMENTIN (AMOXICILLIN-POT CLAVUL*12/16/2010 1 - Mental Status Change SHELLFISH 12/12/2010 7 - Swelling TYLENOL #3 (CODEINE) 08/06/2007 7 - Swelling VENOM-HONEY BEE 12/28/2018 7 - Swelling Date Reviewed: 12/21/2021 Reviewed by: Jeanette Miller APRN.[facility] - Fully Assessed Reason for Visit: Patient Question [1477] Order(s):insulin aspart, niacinamide, (FIASP FLEXTOUCH U-100 INSULIN) 100 unit/mL (3 mL) penInject 8 Units subcutaneously three times daily before meals.Disp: 5 PenRfl: 0 Prescriptions as of 02/15/2022 - insulin aspart, niacinamide, (FIASP FLEXTOUCH U-100 INSULIN) 100 unit/mL (3 mL) pen Inject 8 Units subcutaneously three times daily before meals. - busPIRone (BUSPAR) 10 mg tablet TAKE 1 TABLET BY MOUTH TWICE A DAY - PARoxetine (PAXIL) 40 mg tablet Take 1 tablet by mouth once daily. - brexpiprazole (REXULTI) 1 mg tablet Take 1.5 tablets by mouth once daily. - insulin glargine (BASAGLAR KWIKPEN U-100 INSULIN) 100 unit/mL (3 mL) Inject 20 units SQ daily at bedtime. - midodrine (PROAMITINE) 5 mg tablet Take 1 tablet by mouth three times daily. - hydroCHLOROthiazide (HYDRODIURIL, ESIDRIX) 25 mg tablet TAKE 1 TABLET BY MOUTH EVERY DAY - dulaglutide (TRULICITY) 1.5 mg/0.5 mL pen injector Inject 1.5 mg subcutaneously one time a week. - flash glucose sensor (FREESTYLE EVERARDO 2 SENSOR) kit To check blood sugar 3-4 times a day. Uncontrolled type 2 diabetes - flash glucose scanning reader (FREESTYLE EVERARDO 2 READER) To use with the freestyle everardo sensor. Uncontrolled type 2 diabetes - Lancets lancets Test blood sugar(s) 4 times daily. Dx: Type 2 DM - Uncontrolled E11.65 Insulin: Yes - albuterol HFA (PROAIR HFA) 90 mcg/actuation inhaler Inhale 2 Puffs as instructed every 4 hours as needed for wheezing/shortness of breath. - lisinopril (ZESTRIL, PRINIVIL) 40 mg tablet TAKE 1 TABLET BY MOUTH EVERY DAY - medroxyPROGESTERone (PROVERA) 10 mg tablet Take 1 tablet by mouth as directed. for 7 days a month - blood sugar diagnostic (FREESTYLE LITE STRIPS) test strip Test blood sugar(s) 3 times daily. Dx: Type 2 DM - Controlled E11.9 Insulin: No - Blood Pressure Test Kit-Large Check blood pressure weekly and as needed. Problem List As Of Date 02/15/2022 Noted Resolved Adjustment disorder with depressed mood [F43.21]10/06/2008 Asthma, mild intermittent [J45.20] 01/27/2009 Glycosuria [R81] 07/06/2009 07/18/2013 Closed fracture of metacarpal bone(s), site uns*01/05/2010 02/03/2013 Hemorrhoids [K64.9] 05/19/2011 02/03/2013 Irregular menstrual bleeding [N92.6] 06/13/2012 11/18/2012 Postcoital bleeding [N93.0] 06/13/2012 09/26/2012 Amenorrhea [N91.2] 10/15/2012 02/03/2013 History of [Z98.891] 10/31/2012 07/18/2013 History of gestational diabetes [Z86.32] 10/31/2012 10/13/2020 History of hypertension [Z86.79] 10/31/2012 08/14/2019 Reading difficulty [F81.0] 10/31/2012 08/14/2019 Family history of defects [Z82.79] 10/31/2012 08/14/2019 History of anesthesia complications [Z87.898] 10/31/2012 07/18/2013 Rubella non-immune status, antepartum [O09.899,*11/01/2012 07/18/2013 LOC (loss of consciousness) [R40.20] 02/03/2013 07/18/2013 Abnormal glucose complicating [O99.81*03/16/2013 07/18/2013 Nipple discharge [N64.52] 02/19/2016 08/14/2019 Lump or mass in breast [N63.0] 02/19/2016 08/14/2019 Umbilical hernia [K42.9] 06/07/2017 08/14/2019 Intramural uterine fibroid [D25.1] 08/14/2019 Hypertension, essential [I10] 04/02/2020 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 [facility] .Auto Diffon 02-14-2022 Basophil, Absolute 0.10 10 3/mcL Normal 0.00-0.19 [facility] ([place]) Comment on above: Performed By: #### P REGU, UA, UAMICAO #### [address] [address] Basophils/100 WBC (Bld) 1.2 % Normal 0.0-2.5 [facility] ([place]) Comment on above: Performed By: #### P REGU, UA, UAMICAO #### [address] [address] Eosinophil, Absolute 0.10 10 3/mcL Normal 0.00-0.40 A [facility] ([place]) Comment on above: Performed By: #### P REGU, UA, UAMICAO #### [address] [address] Eosinophils/100 WBC (Bld) 1.1 % Normal 0.0-7.0 [facility] ([place]) Comment on above: Performed By: #### P REGU, UA, UAMICAO #### [address] [address] Lymphocyte, Absolute 1.90 10 3/mcL Normal 0.77-3.85 A [facility] ([place]) Comment on above: Performed By: #### P REGU, UA, UAMICAO #### [address] [address] Lymphocytes/100 WBC (Bld) 22.1 % Normal 10.0-50.0 [facility] ([place]) Comment on above: Performed By: #### P REGU, UA, UAMICAO #### [address] [address] Monocyte, Absolute 0.60 10 3/mcL Normal 0.15-1.00 [facility] ([place]) Comment on above: Performed By: #### P REGU, UA, UAMICAO #### [address] [address] Monocytes/100 WBC (Bld) 6.6 % Normal 1.7-13.0 [facility] ([place]) Comment on above: Performed By: #### P REGU, UA, UAM[place]O #### [address] [address] Neutrophils/100 WBC (Bld) 69.0 % Normal 37.0-80.0 [facility] ([place]) Comment on above: Performed By: #### P REGU, UA, UAMICAO #### [address] [address] .GFRon 02-14-2022 GFR Non- 79 ml/min/1.73sqm Normal [facility] ([place]) Comment on above: Result Comment: GFR Population mean for , Non- Americans Ages 20-29 = 116 mL/min/1.73 sq.m. Ages 30-39 = 107 mL/min/1.73 sq.m. Ages 40-49 = 99 mL/min/1.73 sq.m. Ages 50-59 = 93 mL/min/1.73 sq.m. Ages 60-69 = 85 mL/min/1.73 sq.m. Ages 70+ = 75 mL/min/1.73 sq.m. Chronic Kidney Disease: Less than 60 mL/min/1.73 square meters End Stage Renal Disease: Less than 15 mL/min/1.73 square meters Performed By: #### P REGU, UA, UAMICAO #### [address] [address] GFR 96 ml/min/1.73sqm Normal [facility] ([place]) Comment on above: Result Comment: GFR Population mean for , Non- Americans Ages 20-29 = 116 mL/min/1.73 sq.m. Ages 30-39 = 107 mL/min/1.73 sq.m. Ages 40-49 = 99 mL/min/1.73 sq.m. Ages 50-59 = 93 mL/min/1.73 sq.m. Ages 60-69 = 85 mL/min/1.73 sq.m. Ages 70+ = 75 mL/min/1.73 sq.m. Chronic Kidney Disease: Less than 60 mL/min/1.73 square meters End Stage Renal Disease: Less than 15 mL/min/1.73 square meters Performed By: #### P REGU, UA, UAMICAO #### [address] [address] .NEUABSon 02-14-2022 Neutrophil, Absolute 6.10 10 3/mcL Normal 2.85-6.16 A [facility] ([place]) Comment on above: Performed By: #### P REGU, UA, UAM[place]O #### [address] [address] ACTONon 02-14-2022 Acetone (s) Negative Normal Negative [facility] ([place]) Comment on above: Performed By: #### P REGU, UA, UAMICAO #### [address] [address] BMPon 02-14-2022 BUN/Creatinine Ratio 13 ratio Normal 7-27 [facility] ([place]) Comment on above: Performed By: #### P REGU, UA, UAM[place]O #### [address] [address] Calcium [Mass/Vol] 9.3 mg/dL Normal 8.4-10.2 [facility] ([place]) Comment on above: Performed By: #### P REGU, UA, UAMICAO #### [address] [address] Chloride [Moles/Vol] 97 mmol/L Low 98-107 [facility] ([place]) Comment on above: Performed By: #### P REGU, UA, UAM[place]O #### [address] [address] CO2 [Moles/Vol] 23 mmol/L Normal 22-29 [facility] ([place]) Comment on above: Performed By: #### P REGU, UA, UAMICAO #### [address] [address] Creatinine [Mass/Vol] 0.82 mg/dL Normal 0.55-1.02 [facility] ([place]) Comment on above: Performed By: #### P REGU, UA, UAMICAO #### [address] [address] Electrolyte Balance 12.0 mEq/L Normal 4.0-15.0 [facility] ([place]) Comment on above: Performed By: #### P REGU, UA, UAM[place]O #### [address] [address] Glucose [Mass/Vol] 436 mg/dL Critically abnormal 70-105 [facility] ([place]) Comment on above: Performed By: #### P REGU, UA, UAM[place]O #### [address] [address] Potassium [Moles/Vol] 4.3 mmol/L Normal 3.5-5.1 [facility] ([place]) Comment on above: Performed By: #### P REGU, UA, UAM[place]O #### [address] [address] Sodium [Moles/Vol] 132 mmol/L Low 136-145 [facility] ([place]) Comment on above: Performed By: #### P REGU, UA, UAM[place]O #### [address] [address] Urea nitrogen [Mass/Vol] 11 mg/dL Normal 7-18 [facility] ([place]) Comment on above: Performed By: #### P REGU, UA, [place]O #### [address] [address] CBCon 02-14-2022 Erythrocyte distribution width (RBC) [Ratio] 15.9 % High 11.5-14.5 [facility] ([place]) Comment on above: Performed By: #### P REGU, UA, UAM[place]O #### [address] [address] Hematocrit (Bld) [Volume fraction] 39.6 % Normal 37.0-47.0 [facility] ([place]) Comment on above: Performed By: #### P REGU, UA, [place]AM[place]O #### [address] [address] Hgb 13.6 G/dL Normal 12.0-16.0 [facility] ([place]) Comment on above: Performed By: #### P REGU, UA, UAM[place]O #### [address] [address] MCH (RBC) [Entitic mass] 28.9 pg Normal 27.0-31.2 [facility] ([place]) Comment on above: Performed By: #### P REGU, UA, UAM[place]O #### [address] [address] MCHC 34.4 G/dL Normal 33.0-37.0 [facility] ([place]) Comment on above: Performed By: #### P REGU, UA, [place] #### [address] [address] MCV (RBC) [Entitic vol] 84.1 fL Normal 80.0-94.0 [facility] ([place]) Comment on above: Performed By: #### P REGU, UA, [place]O #### [address] [address] Platelet 243 10 3/mcL Normal 130-400 [facility] ([place]) Comment on above: Performed By: #### P REGU, UA, UAMICAO #### [address] [address] Platelet mean volume (Bld) [Entitic vol] 9.1 fL Normal 7.4-10.4 [facility] ([place]) Comment on above: Performed By: #### P REGU, UA, UAM[place]O #### [address] [address] RBC 4.70 10 6/mcL Normal 4.20-5.40 [facility] ([place]) Comment on above: Performed By: #### P REGU, UA, UAMICAO #### [address] [address] WBC 8.80 10 3/mcL Normal 4.60-10.80 [facility] ([place]) Comment on above: Performed By: #### P REGU, UA, UAM[place]O #### [address] [address] PHVon 02-14-2022 pH Venous 7.38 Normal 7.31-7.41 [facility] ([place]) Comment on above: Performed By: #### P REGU, UA, UAMICAO #### [place] [id number] UAon 02-14-2022 Color (U) Yellow Normal [facility] ([place]) Comment on above: Performed By: #### P REGU, UA, UAM[place]O #### [place] [address] Glucose (U) [Mass/Vol] mg/dL Abnormal Negative [facility] ([place]) Comment on above: Performed By: #### P REGU, UA, UAMICAO #### [place] [address] Ketones Ql (U) Negative Normal Negative [facility] ([place]) Comment on above: Performed By: #### P REGU, UA, UAM[place]O #### [address] [address] UA Appear Clear Normal Clear [facility] ([place]) Comment on above: Performed By: #### P REGU, UA, UAM[place]O #### [place] [address] UA Blood Negative Normal Negative [facility] ([place]) Comment on above: Performed By: #### P REGU, UA, UAMICAO #### [place] [address] UA Leuk Est Negative Normal Negative [facility] ([place]) Comment on above: Performed By: #### P REGU, UA, UAMICAO #### [place] [address] UA Nitrite Negative Normal Negative [facility] ([place]) Comment on above: Performed By: #### P REGU, UA, UAM[place]O #### [address] [address] UA pH 5.0 Normal 5.0 - 8.0 [facility]) Comment on above: Performed By: #### P REGU, UA, UAMICAO #### [address] [address] UA Protein Negative Normal Negative [facility]) Comment on above: Performed By: #### P REGU, UA, UAM[place]O #### [address] [address] UA Spec Grav 1.010 Abnormal 1.015-1.025 [facility]) Comment on above: Performed By: #### P REGU, UA, UAMICAO #### [address] [address] UA Specimen Type Clean Catch Normal [facility] ([place]) Comment on above: Performed By: #### P REGU, UA, UAM[place]O #### [address] [address] UA Urobilinogen 0.2 E.U./dL Normal 0.2-1.0 [facility] ([place]) Comment on above: Performed By: #### P REGU, UA, UAM[place]O #### [address] [address] Urobilinogen (U) [Mass/Vol] Negative Normal Negative [facility]) Comment on above: Performed By: #### P REGU, UA, UAM[place]O #### [address] [address] XR CHEST 2 VIEWSon 2 XR CHEST 2 VIEWS ORIGINAL EXAMINATION: TWO XRAY VIEWS OF THE CHEST 02/14/2022 6:21 pm COMPARISON: Chest radiograph 02/23/2018 HISTORY: ORDERING SYSTEM PROVIDED HISTORY: Reason for Exam: Diabetes Chest pain FINDINGS: Normal cardiomediastinal contour. No focal pulmonary consolidation, vascular congestion, pneumothorax or pleural effusion. A few tiny dense nodules measuring up to 4 mm at the left lung apex are unchanged from 2018, likely calcified granulomas. IMPRESSION: No acute cardiopulmonary findings. I have personally reviewed the images of this examination and edited the resident's findings and interpretation. Interpreted by: Keli Simmons Preliminary Report By: Raimundo Carrion Electronically signed By Keli Simmons Dictated Date: 02/14/2022 6:24:44 PM Prelim Date: 02/14/2022 6:25:41 PM Sign Date: 02/14/2022 6:38:06 PM Ordering Provider: KARYN Jon [facility] ([place]) .Auto Diffon 02-05-2022 Basophil, Absolute 0.10 10 3/mcL Normal 0.00-0.19 [facility] ([place]) Comment on above: Performed By: #### C BC, ADIFF, ANEU, PHV, CMP, GFR, SHAUN #### [address] [address] Basophils/100 WBC (Bld) 1.3 % Normal 0.0-2.5 [facility] ([place]) Comment on above: Performed By: #### C BC, ADIFF, ANEU, PHV, CMP, GFR, SHAUN #### [address] [address] Eosinophil, Absolute 0.10 10 3/mcL Normal 0.00-0.40 A [facility] ([place]) Comment on above: Performed By: #### C BC, ADIFF, ANEU, PHV, CMP, GFR, SHAUN #### [address] [address] Eosinophils/100 WBC (Bld) 1.5 % Normal 0.0-7.0 [facility] ([place]) Comment on above: Performed By: #### C BC, ADIFF, ANEU, PHV, CMP, GFR, SHAUN #### [address] [address] Lymphocyte, Absolute 2.10 10 3/mcL Normal 0.77-3.85 A [facility] ([place]) Comment on above: Performed By: #### C BC, ADIFF, ANEU, PHV, CMP, GFR, SHAUN #### [address] [address] Lymphocytes/100 WBC (Bld) 24.6 % Normal 10.0-50.0 [facility] ([place]) Comment on above: Performed By: #### C BC, ADIFF, ANEU, PHV, CMP, GFR, SHAUN #### [address] [address] Monocyte, Absolute 0.50 10 3/mcL Normal 0.15-1.00 [facility] ([place]) Comment on above: Performed By: #### C BC, ADIFF, ANEU, PHV, CMP, GFR, SHAUN #### [address] [address] Monocytes/100 WBC (Bld) 5.4 % Normal 1.7-13.0 [facility] ([place]) Comment on above: Performed By: #### C BC, ADIFF, ANEU, PHV, CMP, GFR, SHAUN #### [address] [address] Neutrophils/100 WBC (Bld) 67.2 % Normal 37.0-80.0 [facility] ([place]) Comment on above: Performed By: #### C BC, ADIFF, ANEU, PHV, CMP, GFR, SHAUN #### [address] [address] .GFRon 02-05-2022 GFR 73 ml/min/1.73sqm Normal [facility] ([place]) Comment on above: Result Comment: GFR Population mean for , Non- Americans Ages 20-29 = 116 mL/min/1.73 sq.m. Ages 30-39 = 107 mL/min/1.73 sq.m. Ages 40-49 = 99 mL/min/1.73 sq.m. Ages 50-59 = 93 mL/min/1.73 sq.m. Ages 60-69 = 85 mL/min/1.73 sq.m. Ages 70+ = 75 mL/min/1.73 sq.m. Chronic Kidney Disease: Less than 60 mL/min/1.73 square meters End Stage Renal Disease: Less than 15 mL/min/1.73 square meters Performed By: #### C BC, ADIFF, ANEU, PHV, CMP, GFR, SHAUN #### [address] [address] GFR Non- 60 ml/min/1.73sqm Normal [facility] ([place]) Comment on above: Result Comment: GFR Population mean for , Non- Americans Ages 20-29 = 116 mL/min/1.73 sq.m. Ages 30-39 = 107 mL/min/1.73 sq.m. Ages 40-49 = 99 mL/min/1.73 sq.m. Ages 50-59 = 93 mL/min/1.73 sq.m. Ages 60-69 = 85 mL/min/1.73 sq.m. Ages 70+ = 75 mL/min/1.73 sq.m. Chronic Kidney Disease: Less than 60 mL/min/1.73 square meters End Stage Renal Disease: Less than 15 mL/min/1.73 square meters Performed By: #### C BC, ADIFF, ANEU, PHV, CMP, GFR, SHAUN #### [address] [address] .NEUABSon 02-05-2022 Neutrophil, Absolute 5.70 10 3/mcL Normal 2.85-6.16 A [facility] ([place]) Comment on above: Performed By: #### C BC, ADIFF, ANEU, PHV, CMP, GFR, SHAUN #### [address] [address] .Urinalysis Microscopic (AO) on 02-05-2022 UA RBC 5-10 Abnormal None Seen [facility] ([place]) Comment on above: Performed By: #### P REGU, UA, UAMICAO #### [address] [address] UA Squam Epithelial 0-5 Abnormal None Seen [facility] ([place]) Comment on above: Performed By: #### P REGU, UA, UAMICAO #### [address] [address] UA WBC None Seen Normal None Seen [facility] ([place] Comment on above: Performed By: #### P REGU, UA, UAMICAO #### [place] [id number] UA Yeast Trace Abnormal [facility] ([place]) Comment on above: Performed By: #### P REGU, UA, UAMICAO #### [place] [id number] ACTONon 02-05-2022 Acetone (s) Negative Normal Negative [facility] ([place]) Comment on above: Performed By: #### C BC, ADIFF, ANEU, PHV, CMP, GFR, SHAUN #### [place] [address] CBCon 02-05-2022 Erythrocyte distribution width (RBC) [Ratio] 16.3 % High 11.5-14.5 [facility] ([place]) Comment on above: Performed By: #### C BC, ADIFF, ANEU, PHV, CMP, GFR, SHAUN #### [place] [address] Hematocrit (Bld) [Volume fraction] 39.0 % Normal 37.0-47.0 [facility] ([place] Comment on above: Performed By: #### C BC, ADIFF, ANEU, PHV, CMP, GFR, SHAUN #### [place] [address] Hgb 13.4 G/dL Normal 12.0-16.0 [facility] ([place] Comment on above: Performed By: #### C BC, ADIFF, ANEU, PHV, CMP, GFR, SHAUN #### [place] [address] MCH (RBC) [Entitic mass] 29.3 pg Normal 27.0-31.2 [facility] ([place] Comment on above: Performed By: #### C BC, ADIFF, ANEU, PHV, CMP, GFR, SHAUN #### [place] [address] MCHC 34.2 G/dL Normal 33.0-37.0 [facility] ([place] Comment on above: Performed By: #### C BC, ADIFF, ANEU, PHV, CMP, GFR, SHAUN #### [address] [address] MCV (RBC) [Entitic vol] 85.6 fL Normal 80.0-94.0 [facility] ([place]) Comment on above: Performed By: #### C BC, ADIFF, ANEU, PHV, CMP, GFR, SHAUN #### [address] [address] Platelet 241 10 3/mcL Normal 130-400 [facility] ([place]) Comment on above: Performed By: #### C BC, ADIFF, ANEU, PHV, CMP, GFR, SHAUN #### [address] [address] Platelet mean volume (Bld) [Entitic vol] 9.1 fL Normal 7.4-10.4 [facility] ([place]) Comment on above: Performed By: #### C BC, ADIFF, ANEU, PHV, CMP, GFR, SHAUN #### [address] [address] RBC 4.56 10 6/mcL Normal 4.20-5.40 [facility] ([place]) Comment on above: Performed By: #### C BC, ADIFF, ANEU, PHV, CMP, GFR, SHAUN #### [address] [address] WBC 8.50 10 3/mcL Normal 4.60-10.80 [facility] ([place]) Comment on above: Performed By: #### C BC, ADIFF, ANEU, PHV, CMP, GFR, SHAUN #### [address] [address] CMPon 02-05-2022 Albumin Level 3.9 G/dL Normal 3.5-5.0 [facility] ([place] Comment on above: Performed By: #### C BC, ADIFF, ANEU, PHV, CMP, GFR, SHAUN #### [address] [address] Albumin/Globulin [Mass ratio] 1.2 {ratio} Normal 1.1-2.5 [facility] ([place]) Comment on above: Performed By: #### C BC, ADIFF, ANEU, PHV, CMP, GFR, SHAUN #### [address] [address] ALP [Catalytic activity/Vol] 112 U/L Normal 40-135 [facility] ([place]) Comment on above: Performed By: #### C BC, ADIFF, ANEU, PHV, CMP, GFR, SHAUN #### [address] [address] ALT [Catalytic activity/Vol] 43 U/L Normal 14-59 [facility] ([place]) Comment on above: Performed By: #### C BC, ADIFF, ANEU, PHV, CMP, GFR, SHAUN #### [address] [address] AST [Catalytic activity/Vol] 26 U/L Normal 10-40 [facility] ([place] Comment on above: Performed By: #### C BC, ADIFF, ANEU, PHV, CMP, GFR, SHAUN #### [address] [address] Bili Total 0.8 mg/dL Normal 0.2-1.0 [facility] ([place]) Comment on above: Result Comment: Use of this assay is not recommended for patients undergoing treatment with eltrombopag due to the potential for falsely elevated results. Performed By: #### C BC, ADIFF, ANEU, PHV, CMP, GFR, SHAUN #### [address] [address] BUN/Creatinine Ratio 7 ratio Normal 7-27 [facility] ([place]) Comment on above: Performed By: #### C BC, ADIFF, ANEU, PHV, CMP, GFR, SHAUN #### [address] [address] Calcium [Mass/Vol] 9.2 mg/dL Normal 8.4-10.2 [facility] ([place]) Comment on above: Performed By: #### C BC, ADIFF, ANEU, PHV, CMP, GFR, SHAUN #### [address] [address] Chloride [Moles/Vol] 96 mmol/L Low 98-107 [facility] ([place] Comment on above: Performed By: #### C BC, ADIFF, ANEU, PHV, CMP, GFR, SHAUN #### [address] [address] CO2 [Moles/Vol] 27 mmol/L Normal 22-29 [facility] ([place]) Comment on above: Performed By: #### C BC, ADIFF, ANEU, PHV, CMP, GFR, SHAUN #### [address] [address] Creatinine [Mass/Vol] 1.04 mg/dL High 0.55-1.02 [facility] ([place]) Comment on above: Performed By: #### C BC, ADIFF, ANEU, PHV, CMP, GFR, SHAUN #### [address] [address] Electrolyte Balance 10.0 mEq/L Normal 4.0-15.0 [facility] ([place]) Comment on above: Performed By: #### C BC, ADIFF, ANEU, PHV, CMP, GFR, SHAUN #### [address] [address] Globulin 3.2 G/dL Normal [facility] ([place]) Comment on above: Performed By: #### C BC, ADIFF, ANEU, PHV, CMP, GFR, SHAUN #### [address] [address] Glucose [Mass/Vol] 478 mg/dL Critically abnormal 70-105 [facility] ([place]) Comment on above: Performed By: #### C BC, ADIFF, ANEU, PHV, CMP, GFR, SHAUN #### [address] [address] Potassium [Moles/Vol] 4.0 mmol/L Normal 3.5-5.1 [facility] ([place] Comment on above: Performed By: #### C BC, ADIFF, ANEU, PHV, CMP, GFR, SHAUN #### [address] [address] Sodium [Moles/Vol] 133 mmol/L Low 136-145 [facility] ([place]) Comment on above: Performed By: #### C BC, ADIFF, ANEU, PHV, CMP, GFR, SHAUN #### [address] [address] Total Protein 7.1 G/dL Normal 6.4-8.2 [facility] ([place] Comment on above: Performed By: #### C BC, ADIFF, ANEU, PHV, CMP, GFR, SHAUN #### [address] [address] Urea nitrogen [Mass/Vol] 7 mg/dL Normal 7-18 [facility] ([place]) Comment on above: Performed By: #### C BC, ADIFF, ANEU, PHV, CMP, GFR, SHAUN #### [address] [address] LABORATORYOrdered By: Grady Love on 02-05-2022 Glucose [Mass/Vol] 209 mg/dL Invalid Interpretation Code 70 - 110 mg/dL [facility] LABORATORYOrdered By: Loren Welch on 02-05-2022 Albumin BCP dye [Mass/Vol] 3.9 G/dL Invalid Interpretation Code 3.5 - 5.0 G/dL AO ADM SS Albumin/Globulin [Mass ratio] 1.2 {ratio} Invalid Interpretation Code 1.1 - 2.5 ratio AO ADM SS ALP [Catalytic activity/Vol] 112 U/L Invalid Interpretation Code 40 - 135 U/L AO ADM SS ALT With P-5'-P [Catalytic activity/Vol] 43 U/L Invalid Interpretation Code 14 - 59 U/L AO ADM SS AST With P-5'-P [Catalytic activity/Vol] 26 U/L Invalid Interpretation Code 10 - 40 U/L AO ADM SS Bilirubin [Mass/Vol] 0.8 mg/dL Invalid Interpretation Code 0.2 - 1.0 mg/dL AO ADM SS Calcium [Mass/Vol] 9.2 mg/dL Invalid Interpretation Code 8.4 - 10.2 mg/dL AO ADM SS Chloride [Moles/Vol] 96 mmol/L Invalid Interpretation Code 98 - 107 mmol/L AO ADM SS CO2 [Moles/Vol] 27 mmol/L Invalid Interpretation Code 22 - 29 mmol/L AO ADM SS Creatinine [Mass/Vol] 1.04 mg/dL Invalid Interpretation Code 0.55 - 1.02 mg/dL AO ADM SS Electrolyte Balance 10.0 mEq/L Invalid Interpretation Code 4.0 - 15.0 mEq/L AO ADM SS Globulin 3.2 G/dL Invalid Interpretation Code AO ADM SS Glucose [Mass/Vol] 478 mg/dL Invalid Interpretation Code 70 - 105 mg/dL AO ADM SS Ketones [Mass/Vol] Negative Invalid Interpretation Code Negativemg/d L AO Rapid Testing SS Potassium [Moles/Vol] 4.0 mmol/L Invalid Interpretation Code 3.5 - 5.1 mmol/L AO ADM SS Protein [Mass/Vol] 7.1 G/dL Invalid Interpretation Code 6.4 - 8.2 G/dL AO ADM SS Sodium [Moles/Vol] 133 mmol/L Invalid Interpretation Code 136 - 145 mmol/L AO ADM SS Urea nitrogen [Mass/Vol] 7 mg/dL Invalid Interpretation Code 7 - 18 mg/dL AO ADM SS Urea nitrogen/Creatinine [Mass ratio] 7 ratio Invalid Interpretation Code 7 - 27 ratio AO ADM SS LABORATORYOrdered By: Nany Moore on 02-05-2022 Basophil, Absolute 0.10 103/mcL Invalid Interpretation Code 0.00 - 0.19 10^3/mcL AO Auto Heme SS Basophils/100 WBC (Bld) 1.3 % Invalid Interpretation Code 0.0 - 2.5 % AO Auto Heme SS Eosinophil, Absolute 0.10 103/mcL Invalid Interpretation Code 0.00 - 0.40 10^3/mcL AO Auto Heme SS Eosinophils/100 WBC (Bld) 1.5 % Invalid Interpretation Code 0.0 - 7.0 % AO Auto Heme SS Erythrocyte distribution width (RBC) [Ratio] 16.3 % Invalid Interpretation Code 11.5 - 14.5 % AO Auto Heme SS Hematocrit (Bld) [Volume fraction] 39.0 % Invalid Interpretation Code 37.0 - 47.0 % AO Auto Heme SS Hemoglobin (Bld) [Mass/Vol] 13.4 G/dL Invalid Interpretation Code 12.0 - 16.0 G/dL AO Auto Heme SS Lymphocyte, Absolute 2.10 103/mcL Invalid Interpretation Code 0.77 - 3.85 10^3/mcL AO Auto Heme SS Lymphocytes/100 WBC (Bld) 24.6 % Invalid Interpretation Code 10.0 - 50.0 % AO Auto Heme SS MCH (RBC) [Entitic mass] 29.3 pg Invalid Interpretation Code 27.0 - 31.2 pg AO Auto Heme SS MCHC (RBC) [Mass/Vol] 34.2 G/dL Invalid Interpretation Code 33.0 - 37.0 G/dL AO Auto Heme SS MCV (RBC) [Entitic vol] 85.6 fL Invalid Interpretation Code 80.0 - 94.0 fL AO Auto Heme SS Monocyte, Absolute 0.50 103/mcL Invalid Interpretation Code 0.15 - 1.00 10^3/mcL AO Auto Heme SS Monocytes/100 WBC (Bld) 5.4 % Invalid Interpretation Code 1.7 - 13.0 % AO Auto Heme SS Neutrophil, Absolute 5.70 103/mcL Invalid Interpretation Code 2.85 - 6.16 10^3/mcL AO Auto Heme SS Neutrophils/100 WBC (Bld) 67.2 % Invalid Interpretation Code 37.0 - 80.0 % AO Auto Heme SS pH (BldV) 7.36 [pH] Invalid Interpretation Code 7.31 - 7.41 AO Blood Gas SS Platelet mean volume (Bld) [Entitic vol] 9.1 fL Invalid Interpretation Code 7.4 - 10.4 fL AO Auto Heme SS Platelets (Bld) [#/Vol] 241 103/mcL Invalid Interpretation Code 130 - 400 10^3/mcL AO Auto Heme SS RBC (Bld) [#/Vol] 4.56 106/mcL Invalid Interpretation Code 4.20 - 5.40 10^6/mcL AO Auto Heme SS WBC (Bld) [#/Vol] 8.50 103/mcL Invalid Interpretation Code 4.60 - 10.80 10^3/mcL AO Auto Heme SS Appearance (U) Slightly Cloudy *ABN* (02/05/22 6:32 PM) Invalid Interpretation Code Clear AO Auto Urine SS Bilirubin Ql (U) Negative (02/05/22 6:32 PM) Invalid Interpretation Code Negative AO Auto Urine SS Color (U) Yellow (02/05/22 6:32 PM) Invalid Interpretation Code AO Auto Urine SS Glucose Test strip (U) [Mass/Vol] >=1000 mg/dL Invalid Interpretation Code Negativemg/d L AO Auto Urine SS HCG ( test) Ql Negative (02/05/22 6:32 PM) Invalid Interpretation Code AO Manual Urine SS Hemoglobin Auto test strip (U) [Mass/Vol] Trace *ABN* (02/05/22 6:32 PM) Invalid Interpretation Code Negative AO Auto Urine SS Ketones Ql (U) Negative Invalid Interpretation Code Negativemg/d L AO Auto Urine SS test (u) int Not detected Invalid Interpretation Code AO Manual Urine SS UA Leuk Est Negative (02/05/22 6:32 PM) Invalid Interpretation Code Negative AO Auto Urine SS UA Nitrite Negative (02/05/22 6:32 PM) Invalid Interpretation Code Negative AO Auto Urine SS UA pH 6.0 (02/05/22 6:32 PM) Invalid Interpretation Code 5.0 - 8.0 AO Auto Urine SS UA Protein Negative Invalid Interpretation Code Negativemg/d L AO Auto Urine SS UA RBC 5-10 /HPF Invalid Interpretation Code None Seen/HPF AO Auto Urine SS UA Spec Grav 1.015 (02/05/22 6:32 PM) Invalid Interpretation Code 1.015-1.025 AO Auto Urine SS UA Specimen Type Clean Catch (02/05/22 6:32 PM) Invalid Interpretation Code AO Auto Urine SS UA Squam Epithelial 0-5 /HPF Invalid Interpretation Code None Seen/HPF AO Auto Urine SS UA Urobilinogen 0.2 E.U./dL Invalid Interpretation Code 0.2-1.0E.U./ dL AO Auto Urine SS WBC LM.HPF (Urine sed) [#/Area] None Seen /HPF Invalid Interpretation Code None Seen/HPF AO Auto Urine SS Yeast LM.HPF (Urine sed) [#/Area] Trace /HPF Invalid Interpretation Code AO Auto Urine SS LABORATORYOrdered By: SYSTEM SYSTEM on 02-05-2022 GFR 73 ml/min/1.73sqm Invalid Interpretation Code AO Chemistry S GFR Non- 60 ml/min/1.73sqm Invalid Interpretation Code AO Chemistry S No Panel InformationOrdered By: Sabra Cumminsjose on 02-05-2022 Blood Glucose Interventions Retest, Notify physician (02/05/22 8:18 PM) [facility] PHVon 02-05-2022 pH Venous 7.36 Normal 7.31-7.41 [facility] ([place]) Comment on above: Performed By: #### C BC, ADIFF, ANEU, PHV, CMP, GFR, SHAUN #### [address] [address] PREGUon 02-05-2022 HCG ( test) Ql (U) Negative Normal [facility] ([place]) Comment on above: Performed By: #### P REGU, UA, UAMICAO #### [address] [address] test (u) int Not detected Invalid Interpretation Code [facility] ([place]) Comment on above: Performed By: #### P REGU, UA, UAMICAO #### [address] [address] UAon 02-05-2022 Color (U) Yellow Normal [facility] ([place]) Comment on above: Performed By: #### P REGU, UA, UAMICAO #### [address] [address] Glucose (U) [Mass/Vol] mg/dL Abnormal Negative [facility] ([place]) Comment on above: Performed By: #### P REGU, UA, UAMICAO #### [address] [address] Ketones Ql (U) Negative Normal Negative [facility] ([place]) Comment on above: Performed By: #### P REGU, UA, UAMICAO #### [address] [address] UA Appear Slightly Cloudy Abnormal Clear [facility] ([place]) Comment on above: Performed By: #### P REGU, UA, UAMICAO #### [address] [address] UA Blood Trace Abnormal Negative [facility] ([place]) Comment on above: Performed By: #### P REGU, UA, UAMICAO #### [address] [address] UA Leuk Est Negative Normal Negative [facility] ([place]) Comment on above: Performed By: #### P REGU, UA, UAMICAO #### [place] [address] UA Nitrite Negative Normal Negative [facility] ([place] Comment on above: Performed By: #### P REGU, UA, UAMICAO #### [place] [address] UA pH 6.0 Normal 5.0 - 8.0 [facility] ([place]) Comment on above: Performed By: #### P REGU, UA, UAMICAO #### [place] [address] UA Protein Negative Normal Negative [facility] ([place] Comment on above: Performed By: #### P REGU, UA, UAMICAO #### [place] [address] UA Spec Grav 1.015 Normal 1.015-1.025 [facility] ([place]) Comment on above: Performed By: #### P REGU, UA, UAMICAO #### [place] [id number] UA Specimen Type Clean Catch Normal [facility] ([place]) Comment on above: Performed By: #### P REGU, UA, UAMICAO #### [address] [address] UA Urobilinogen 0.2 E.U./dL Normal 0.2-1.0 [facility] ([place]) Comment on above: Performed By: #### P REGU, UA, UAMICAO #### [place] [id number] Urobilinogen (U) [Mass/Vol] Negative Normal Negative [facility] ([place]) Comment on above: Performed By: #### P REGU, UA, UAMICAO #### [facility] [address] [place], [place] [address] ACTHon 08-07-2021 ACTH 23.2 pg/mL Normal 7.2-63.3 [facility] Comment on above: Result Comment: ACTH Reference Range: 7-10 am: 7.2 - 63.3 pg/mL Performed By: #### C OR #### [facility] [employer] [address] [place], [place] [address] ACTH Stim 3 Time Ptson 08-07 .Cortisol,Basal LK USE ONLY 10.1 ug/dL Normal 4.8-19.5 [facility] Comment on above: Result Comment: Prov ided reference range is from 6-10 AM sample collection time. Cortisol Reference Range: 6-10 AM = 4.8-19.5 ug/dL, 4-8 PM = 2.5-11.9 ug/dL Performed By: #### C OR #### [facility] [employer] [address] [place], [place] [address] Cortisol, 30 min 26.3 ug/dL Normal [facility] Comment on above: Performed By: #### C OR #### [facility] [employer] [address] [place], [place] [address] Cortisol, 60 min 24.2 ug/dL Normal [facility] Comment on above: Performed By: #### C OR #### [facility] [employer] [address] [place], [place] [address] Interpretation After cortrosyn stimulation, a peak cortisol response greater than 12.6 ug/dL may indicate appropriate cortisol secretion. This result should be interpreted within the clinical context and other test results. Normal [facility] Comment on above: Result Comment: alyx Dang al. Clinical Implications for Biochemical Diagnostic Thresholds of Adrenal Sufficiency Using a Highly Specific Cortisol Immunoassay. 2017 Clin. Biochem. 50:475-480. Note: Cortisol methodology changed on 06/15/2020. The current cortisol test is an electrochemiluminescence immunoassay (ECLIA) performed on the [employer] e602 analyzer. Performed By: #### C OR #### [facility] [address] [place] [id number] CBCon 08-07-2021 Absolute nRBC <0.01 Normal <0.01 [facility] Comment on above: Performed By: #### C MP, CBC ####[facility] [address] [place] [address] Erythrocyte distribution width (RBC) [Ratio] 14.7 % Normal 11.5-15.0 [facility] Comment on above: Performed By: #### C MP, CBC ####[facility] [address] [place] [address] Hematocrit (Bld) [Volume fraction] 27.8 % Low 36.0-46.0 [facility] Comment on above: Performed By: #### C MP, CBC ####[facility] [address] [place] [address] Hemoglobin (Bld) [Mass/Vol] 9.5 g/dL Low 11.5-15.5 [facility] Comment on above: Performed By: #### C MP, CBC ####[facility] [address] [place] [address] MCH 29.1 pG Normal 26.0-34.0 [facility] Comment on above: Performed By: #### C MP, CBC ####[facility] [address] [place] [address] MCHC (RBC) [Mass/Vol] 34.2 g/dL Normal 30.5-36.0 [facility] Comment on above: Performed By: #### C MP, CBC ####[facility] [address] [place], [place] [id number] MCV (RBC) [Entitic vol] 85.0 fL Normal 80.0-100.0 [facility] Comment on above: Performed By: #### C MP, CBC ####[facility] [address] [place] [address] Platelet mean volume (Bld) [Entitic vol] 10.2 fL Normal 9.0-12.7 [facility] Comment on above: Performed By: #### C MP, CBC ####[facility] [address] [place], [place] [id number] Platelets (Bld) [#/Vol] 155 10*3/uL Normal 150-400 [facility] Comment on above: Performed By: #### C MP, CBC ####[facility] [address] RBC (Bld) [#/Vol] 3.27 10*6/uL Low 3.90-5.20 [facility] Comment on above: Performed By: #### C MP, CBC ####[facility] [address] WBC (Bld) [#/Vol] 4.95 10*3/uL Normal 3.70-11.00 [facility] Comment on above: Performed By: #### C MP, CBC ####[facility] [address] [place] [id number] CNDSon 08-07-2021 CNDS HNO ID: [id number] Author: Camryn Leone DO Service: Hospital Medicine Author Type: Physician Type: Discharge Summary Filed: 08/07/2021 4:51 PM Note Text: DISCHARGE SUMMARY PATIENT NAME: Reinaldo Warren ADMISSION DATE: 08/05/2021 DISCHARGE DATE: 08/07/2021 ATTENDING PHYSICIAN: No att. providers found Code Status: Not on file Highest Readmission Risk Score: 28 The 30 day readmissions risk score is derived from an internally validated risk model which evaluates patient level characteristics, utilization history, medication orders and lab results up until the day of discharge. Patients with a score of 40 or above are considered highest risk for readmission. Specific patient level drivers will be listed at the bottom of the summary. CONSULTING TEAMS DURING HOSPITALIZATION: Treatment Team: Consulting: Kurt Valdovinos Consulting: Nilda Lauren Primary Service: [facility] 4 REASON FOR HOSPITALIZATION: Syncope, hypotension and hyperglycemia DIAGNOSIS: Principal Problem: Syncope POA: Yes Active Problems: Hypotension POA: Unknown Uncontrolled type 2 diabetes mellitus (HCC) POA: Yes Resolved Problems: * No resolved hospital problems. * OPERATIONS DURING HOSPITALIZATION: None PROCEDURES DURING HOSPITALIZATION: No procedures performed HOSPITAL COURSE: 36-year-old female, with a history of diabetes, hypertension, migraines, asthma, hypotension, presents to the ED after syncopal event. ?The patient states for the last 3 months she has been having issues with syncope. ?She can pass out up to 4 times per day. ?She has been seeing cardiology, neurology and pulmonology for this. ?There is a suspected diagnosis of POTS. ?She used to struggle with hypertension, they removed her from all of those medications and she still remains hypotensive. ?She also has a history of seizures and they removed her for most of her seizure medications. ?She states that these episodes are not seizure in nature. ?States that she has nausea and sweating prior to the episode. ?Today's episode she did not hit the ground as she was caught. ?No injury. ?She is not on a blood thinner. In the ER she did get fluid boluses in the ER and her BS was over 500. She was not in DKA. She was given some humulin R in the ER And her sugar came down to 300's. She is being admitted for the hypotension and syncope as well as the uncontrolled dm She was observed on telemetry which remained normal thru her hospital stay. She was seen in consult by cardiology. Echocardiogram was recommended. There was consideration of adrenal insufficiency. She was seen in consult by endocrinology. Cortisol, metanephrines and ACTH stim test were ordered. Her metformin was stopped and she was switched to insulin in the hospital. The patient felt well while at rest. Her blood pressure stabilized. She reported she had not been taking her metformin or her blood pressure medications for over a week prior to the hospitalization. On 08/07 she was assisted up to the bathroom. She became warm and dizzy and had a syncopal episode. She was lowered to the ground by her RN and rapid response was called. On arrival her VS were normal. Pulse ox was 98%. Her SBP was 146. Pulse was 106. She was on telemetry and no arrythmia was noted. She did not have any seizure activity. She regained consciousness within seconds and was alert and oriented. On assistance up she was noted to be very unsteady on her feet. After resting we did an examination of gait with several people assisting. She appeared almost ataxic. Her feet were turned in and she was walking with her toes curled under. She swayed from side to side. Romberg test was done and positive. Her strength was normal in all 4 extremities. She did have right side tremor that worsened with intention. There was no ataxia by finger to nose or heal to morillo. Her tremor worsened with finger taps. She did not appear well.. At this time she provided a history of stroke with one of her pregnancies. It was advised that she undergo neurology evaluation both for stroke and for her positive rombergs. RPR and Vitamin B12 were ordered. It was also advised that she stay for further workup including inpatient echo. The patient declined and left the hospital AMA. She did not wait for prescriptions or follow up recommendations. She understood our concerns about her condition and her was present at bedside. Her PCP was messaged with concerns about her condition. Transitions of Care Critical Issues: SPECIALIST FOLLOW-UP: Message sent to PCP for close outpatient follow up and expedited neuro evaluation LABS AND PROCEDURES PENDING AT DISCHARGE: RPR, Vitamin B12, metanephrines, ACTH STIM test PATIENT CONDITION AT DISCHARGE: Stable DISCHARGE DISPOSITION: Home/Self Care Discharge Physical Exam: VITAL SIGNS: BP 140/93 Pulse 78 Temp 37.1 ?C (98.8 ?F) Resp 20 Ht 165.1 cm (5' 5) Wt 86 (more content not included)... Normal [facility] CONSULT PROGon 08-07-2021 CONSULT PROG HNO ID: [id number] Author: Kurt Valdovinos MD Service: Cardiovascular Disease Author Type: Physician Type: Consult Progress Note Filed: 08/07/2021 10:38 AM Note Text: PROGRESS NOTE CARDIOLOGY SERVICE SERVICE DATE: 08/07/2021 SERVICE TIME: 10:34 AM Subjective INTERIM HISTORY: Patient had anxiety attack last night. She pulled out her IV and threatened to leave the hospital. She feels better currently. She did have an episode of chest discomfort which was described as a burning sensation. She received Maalox with resolution of her symptoms. This does not represent angina. This was not likely cardiac in origin. Objective PHYSICAL EXAM: Body mass index is 31.78 kg/m?. O2 Therapy: Room Air No data recorded Patient Vitals for the past 24 hrs: BP Temp Temp src Pulse Resp SpO2 08/07/21 0920 126/68 36.8 ?C (98.2 ?F) Oral 87 20 98 % 08/07/21 0312 124/76 36.6 ?C (97.9 ?F) Oral 79 16 97 % 08/06/21 2316 127/88 37.1 ?C (98.8 ?F) Oral 83 16 98 % 08/06/21 2113 135/86 ? ? 81 ? 98 % 08/06/21 1804 131/92 37.1 ?C (98.8 ?F) Oral 84 ? 98 % 08/06/21 1233 119/85 37.1 ?C (98.8 ?F) Oral 77 17 99 % General: Well appearing, in no acute distress. Eyes: Conjunctiva normal, sclera normal Neck: No jugular venous distention, no palpable thyromegaly. Heart: Regular rhythm, S1, S2 normal, no S3, no S4. No murmur. No carotid bruits. Respiratory: Clear to auscultation bilaterally. Good respiratory effort. GI: Soft, nontender, bowel sounds normal, no palpable hepatosplenomegaly Extremities: Normal pulses in distal lower extremities. Absent lower extremity edema Neuro: Alert, cooperative with no focal deficit. Psych: Pleasant and cooperative. Skin: No rashes or wounds. MEDICATIONS: Current Facility-Administered Medications Medication Dose Route Frequency - busPIRone 10 mg tab(s) (BUSPAR) 10 mg ORAL BID - hydrOXYzine HCl 25 mg tab(s) (ATARAX) 25 mg ORAL TID PRN - promethazine 12.5 mg tab(s) (PHENERGAN) 12.5 mg ORAL q 6 H PRN - brexpiprazole 1.5 mg tab(s) (REXULTI) 1.5 mg ORAL DAILY - PARoxetine 40 mg tab(s) (PAXIL) 40 mg ORAL DAILY - dextrose 40 % 15 g 15 g ORAL PRN Or - glucagon 1 mg injection 1 mg INTRAMUSCULAR PRN Or - dextrose 50% in water 25 mL syringe 12.5 g INTRAVENOUS PRN - NaCl 0.9% iv flush bag 20 mL INTRAVENOUS PRN - sodium chloride 0.9 % (flush) 3-5 mL (BD POSIFLUSH) 3-5 mL INTRAVENOUS q 12 H - NaCl 0.9% iv infusion 100 mL/hr INTRAVENOUS CONTINUOUS - ondansetron orally disintegrating 4 mg tab(s) (ZOFRAN ODT) 4 mg ORAL q 6 H PRN Or - ondansetron (PF) 4 mg injection (ZOFRAN) 4 mg INTRAVENOUS q 6 H PRN - aluminum-magnesium hydroxide-simethicone 200-200-20 mg/5 mL 30 mL (MAALOX,MYLANTA,MAG-AL PLUS) 30 mL ORAL q 6 H PRN - docusate sodium 100 mg cap(s) (COLACE) 100 mg ORAL BID PRN - magnesium hydroxide 400 mg/5 mL 30 mL (MOM) 30 mL ORAL DAILY PRN - acetaminophen 650 mg tab(s) (TYLENOL) 650 mg ORAL q 6 H PRN - albuterol 2.5 mg /3 mL (0.083 %) 2.5 mg (PROVENTIL) 2.5 mg INHALATION q 4 H PRN - insulin glargine 15 Units pen (long acting) (LANTUS SOLOSTAR, BASAGLAR KWIKPEN) 15 Units SUBCUTANEOUS AT BEDTIME - insulin lispro injection (rapid acting) (HumaLOG) SUBCUTANEOUS w MEALS - insulin lispro injection (rapid acting) (HumaLOG) SUBCUTANEOUS AT BEDTIME - melatonin 6 mg tab(s) 6 mg ORAL DAILY (8 PM) - insulin lispro 6 Units injection (rapid acting) (HumaLOG) 6 Units SUBCUTANEOUS DAILY WITH BREAKFAST - insulin lispro 6 Units injection (rapid acting) (HumaLOG) 6 Units SUBCUTANEOUS DAILY wLUNCH - insulin lispro 6 Units injection (rapid acting) (HumaLOG) 6 Units SUBCUTANEOUS DAILY wDINNER - cosyntropin 0.25 mg injection (CORTROSYN) 0.25 mg INTRAVENOUS ONCE DATA: Telemetry: Sinus rhythm. Past 72 Hour Labs: Recent Labs 08/07/21 0446 08/06/21 2228 08/06/21 1419 08/05/21 1002 08/05/21 1002 TROPT -- <0.010 -- -- -- WBC 4.95 -- < > < > 7.59 RBC 3.27* -- < > < > 4.37 HB 9.5* -- < > < > 12.7 HCT 27.8* -- < > < > 37.2 MCV 85.0 -- < > < > 85.1 MCH 29.1 -- < > < > 29.1 MCHC 34.2 -- < > < > 34.1 RDWCV 14.7 -- < > < > 15.8* PLT 155 -- < > < > 236 MPV 10.2 -- < > < > 10.9 NEUTP -- -- -- -- 70.0 LYMPHP -- -- -- -- 20.0 MONOP -- -- -- -- 3.0 EODINP -- -- -- -- 2.0 BASOP -- -- -- -- 1.0 ABSNEUT -- -- -- -- 5.31 ABSMONO -- -- -- -- 0.23 ABSEOSIN -- -- -- -- 0.15 ABSBASO -- -- -- -- 0.08 GLUC 149* -- < > < > 554* BUN 10 -- < > < > 18 CREAT 0.71 -- < > < > 1.23* NA 137 -- < > < > 128* K 4.1 -- < > < > 4.8 CHLOR 103 -- < > < > 91* CO2 24 -- < > < > 23 TPROT 5.1* -- -- < > 7.1 ALB 3.5* -- -- < > 4.7 CA 8.7 -- < > < > 9.7 ALKPHOS 64 -- -- < > 90 TBILI 0.4 -- -- < > 0.8 AST 21 -- -- < > 17 ALT 18 -- -- < > 19 MG -- -- -- -- 2.1 < > = values in this interval not displayed. Assessment/Plan Patient Active Hospital Problem List: 1. Syncope Uncertain etiology. No arrhythmias identified. Relative hypotension which (more content not included)... Normal [facility] Comp Metabolic Panelon 08-07 Albumin [Mass/Vol] 3.5 g/dL Low 3.9-4.9 [facility] Comment on above: Result Comment: Rech ecked Performed By: #### C MP, CBC ####[facility] [address] [phone] ALP [Catalytic activity/Vol] 64 U/L Normal 34-123 [facility] Comment on above: Performed By: #### C MP, CBC ####[facility] [address] [phone] ALT [Catalytic activity/Vol] 18 U/L Normal 7-38 [facility] Comment on above: Performed By: #### C MP, CBC ####[facility] [address] [place] [address] Anion gap [Moles/Vol] 10 mmol/L Normal 9-18 [facility] Comment on above: Performed By: #### C MP, CBC ####[facility] [address] [place] [address] AST [Catalytic activity/Vol] 21 U/L Normal 13-35 [facility] Comment on above: Performed By: #### C MP, CBC ####[facility] [address] [place] [address] Bilirubin [Mass/Vol] 0.4 mg/dL Normal 0.2-1.3 [facility] Comment on above: Performed By: #### C MP, CBC ####[facility] [address] [place] [address] Calcium [Mass/Vol] 8.7 mg/dL Normal 8.5-10.2 [facility] Comment on above: Performed By: #### C MP, CBC ####[facility] [address] [place] [address] Chloride [Moles/Vol] 103 mmol/L Normal 97-105 [facility] Comment on above: Performed By: #### C MP, CBC ####[facility] [address] [place] [address] CO2 [Moles/Vol] 24 mmol/L Normal 22-30 [facility] Comment on above: Performed By: #### C MP, CBC ####[facility] [address] [place] [address] Creatinine [Mass/Vol] 0.71 mg/dL Normal 0.58-0.96 [facility] Comment on above: Performed By: #### C MP, CBC ####[facility] [address] [place] [address] eGFR- Amer. >60 Normal [facility] Comment on above: Performed By: #### C MP, CBC ####[facility] [address] [place] [address] eGFR-All Other Races >60 Normal [facility] Comment on above: Result Comment: eGFR (Estimated GFR) Units of measure: mL/min/1.73 meters squared eGFR is derived from the reexpressed MDRD Study equation using the following parameters: serum creatinine, age, gender and race. The creatinine assay has been calibrated to be traceable to IDMS. An eGFR <60 mL/min/1.73m2 for >3 months is consistent with chronic kidney disease. Refer to KDOQI guidelines for clinical interpretation. In patients with unstable renal function, e.g. those with acute kidney injury, the eGFR may not accurately reflect actual GFR. Performed By: #### C MP, CBC ####[facility] [address] [place] [address] Glucose [Mass/Vol] 149 mg/dL High 74-99 [facility] Comment on above: Result Comment: The [place] Diabetes [employer] (ADA) provides guidance for cutoff values for fasting glucose and random glucose. The ADA defines fasting as no caloric intake for at least 8 hours. Fasting plasma glucose results between 100 to 125 mg/dL indicate increased risk for diabetes (prediabetes). Fasting plasma glucose results greater than or equal to 126 mg/dL meet the criteria for diagnosis of diabetes. In the absence of unequivocal hyperglycemia, results should be confirmed by repeat testing. In a patient with classic symptoms of hyperglycemia or hyperglycemic crisis, random plasma glucose results greater than or equal to 200 mg/dL meet the criteria for diagnosis of diabetes. Reference: Standards of Medical Care in Diabetes 2016, [place] [employer]. Diabetes Care. 2016.39(Suppl 1). Performed By: #### C MP, CBC ####[place] [address] Potassium [Moles/Vol] 4.1 mmol/L Normal 3.7-5.1 [facility] Comment on above: Performed By: #### C MP, CBC ####[place] [address] Protein [Mass/Vol] 5.1 g/dL Low 6.3-8.0 [facility] Comment on above: Performed By: #### C MP, CBC ####[place] [address] Sodium [Moles/Vol] 137 mmol/L Normal 136-144 [facility] Comment on above: Performed By: #### C MP, CBC ####[facility] [address] [place] [address] Urea nitrogen [Mass/Vol] 10 mg/dL Normal 7-21 [facility] Comment on above: Performed By: #### C MP, CBC ####[facility] [address] [place] [phone] Cortisolon 08-07-2021 Cortisol 10.2 ug/dL Normal 4.8-19.5 [facility] Comment on above: Result Comment: Prov ided reference range is from 6-10 AM sample collection time. Cortisol Reference Range: 6-10 AM = 4.8-19.5 ug/dL, 4-8 PM = 2.5-11.9 ug/dL Note: Cortisol methodology changed on 06/15/2020. The current cortisol test is an electrochemiluminescence immunoassay (ECLIA) performed on the [employer] e602 analyzer. Performed By: #### C OR #### [facility] [address] [place], [place] [address] DHEA-Son 08-07-2021 DHEA-S 148.9 ug/dL Normal 60.9-337.0 [facility] Comment on above: Result Comment: Refe rence ranges are age and gender specific. For additional information, reference range tables can be found in the laboratory test directory. The normal values are based on the following source: Dehydroepiandrosterone sulfate (DHEA S) [package insert V 17.0 Israeli]. [employer], [place], [place]: May 2013. Performed By: #### C OR #### [facility] [address] [place], [place] [address] Metanephrines,Fr Plason 10-3 Metanephrine, Fr Plas 26 pg/mL Normal 12-67 [facility] Comment on above: Result Comment: Refe rence Ranges: Hypertensive adult > or = 18 yrs old: 12-72 pg/mL Normotensive adult > or = 18 yrs old: 12-67 pg/mL Normotensive children < 18 yrs old: 10-95 pg/mL This test was developed and its performance characteristics determined by [facility] [place] ( [facility]). It has not been cleared or approved by the FDA. [facility] is regulated under CLIA as qualified to perform high complexity testing. This test is used for clinical purposes. It should not be regarded as investigational or for research. Performed By: #### C OR #### [facility] [employer] [address] [place], [place] [address] Normetanephrine, Fr Plas <22 Normal 18-101 [facility] Comment on above: Result Comment: Frances ludwig Ranges: Hypertensive adult > or = 18 yrs old: 24-145 pg/mL Normotensive adult > or = 18 yrs old: 18-101 pg/mL Normotensive children < 18 yrs old: 22-83 pg/mL Methyldopa may cause false elevation of normetanephrine levels in this assay. If patient is on methyldopa, interpret results with caution. This test was developed and its performance characteristics determined by [facility] [place] ([facility]). It has not been cleared or approved by the FDA. [facility] is regulated under CLIA as qualified to perform high complexity testing. This test is used for clinical purposes. It should not be regarded as investigational or for research. Performed By: #### C OR #### [facility] [employer] [address] [place] [id number] NURSING PROGon 08-07-2021 NURSING PROG HNO ID: [id number] Author: Liza Forbes RN Service: ? Author Type: Registered Nurse Type: Nursing Progress Note Filed: 08/07/2021 3:48 PM Note Text: Nursing Progress Note Patient Name: Reinaldo Warren Patient Location: [facility] [id number] Daily Note: 1534 Patient insisting on leaving AMA. Dr. Leone notified. Patient educated on risks of leaving. Transported to car via w/c. present. This note was completed by: Liza Forbes [facility] NURSING PROG HNO ID: [id number] Author: Liza Forbes RN Service: ? Author Type: Registered Nurse Type: Nursing Progress Note Filed: 08/07/2021 2:16 PM Note Text: Nursing Progress Note Patient Name: Reinaldo Warren Patient Location: [facility] [id number] Daily Note: 1330 patient assisted to bathroom. While assisting patient back to bed gait became unsteady and patient lowered to floor. 1339 While sitting on floor, patient leaned to right and was nonverbal. Patient stated that she did not lose consciousness. Vital signs checked and stable. Blood sugar checked. Rapid called. This note was completed by: Liza Forbes [facility] NURSING PROG HNO ID: [id number] Author: Jonas Alvarado RN Service: ? Author Type: Registered Nurse Type: Nursing Progress Note Filed: 08/07/2021 2:38 AM Note Text: 2129: pt complaining about chest pain 10/10 pain that wont go away for 30mins, pt stated she sometimes gets GERD but it will go away, EKG taken: accelerated junction with inferior infart, LIP notified and ordered state troponins, LIP stated to give maalox 0000:pt walking the hallway and stated she can not get comfortable in bed, pt was crying and stated she got tired of everything and pulled gown, tele, and IV out, stated she wanted to go home but her wouldn't pick her up. Pt reminded why she was here and educated on why she should stay, pt given atarax and tele was put back on, educated on using call light as well Pt refusing IV at this time and stated we could try in the morning LIP notified no further orders at this time Rosaura HIGUERA, BSN [facility] NUTRITIONon 08-07-2021 NUTRITION HNO ID: [id number] Author: Kandace Leblanc RD Service: Nutrition Therapy Author Type: Registered Dietitian Type: Nutrition Filed: 08/07/2021 2:25 PM Note Text: NUTRITION THERAPY SCREEN NOTE SERVICE DATE: 08/07/2021 SERVICE TIME: 1:40 pm Care Plan: Continue current diet as tolerated Monitor and Evaluation: Meet greater than 75% of estimated needs Intake History: Nutrition Intake Prior to Admission: Unable to determine (pt undergoing rapid response at time of visit) Diet Orders (From admission, onward) Start Ordered 08/05/211744 Diet Carbohydrate Controlled START NOW Question: Carbohydrate Control Answer: 3-5 CARBS/MEAL 08/05/21 1734 Anthropometrics: Height: 165.1 cm (5' 5) Weight: 86.6 kg (191 lb) Usual Weight: (190-210 lbs) Weight change percentage over time: current weight within usual body weight range MNT Billing Type: Routine Care/15 min 1 unit SIGNATURE: Kandace Leblanc RD PATIENT NAME: Reinaldo Warren DATE: August 07, 2021 TIME: 2:23 PM PAGER: [phone] Normal [facility] RPRon 08-07-2021 Reagin Ab RPR Ql (S) Non-Reactive Normal Non Reactive [facility] Comment on above: Performed By: #### R AK ####[facility] [address] [place], [place] [phone] Troponin Ton 08-07-2021 Troponin T <0.010 Normal 0.000-0.029 [facility] Comment on above: Performed By: #### C OR #### [facility] [address] [place], [place] [address] Vitamin B12on 08-07-2021 Cobalamin (Vitamin B12) [Mass/Vol] 285 pg/mL Normal 232-1245 [facility] Comment on above: Performed By: #### C OR #### [facility] [address] [place], [place] [address] Basic Metabolic Panlon 08-06 Anion gap [Moles/Vol] 10 mmol/L Normal 9-18 [facility] Comment on above: Performed By: #### U AMIC, UA #### [facility] [address] [place] [address] Calcium [Mass/Vol] 8.8 mg/dL Normal 8.5-10.2 [facility] Comment on above: Performed By: #### U AMIC, UA #### [facility] [address] [place] [address] Chloride [Moles/Vol] 104 mmol/L Normal 97-105 [facility] Comment on above: Performed By: #### U AMIC, UA #### [facility] [address] [place] [address] CO2 [Moles/Vol] 23 mmol/L Normal 22-30 [facility] Comment on above: Performed By: #### U AMIC, UA #### [facility] [address] [place] [address] Creatinine [Mass/Vol] 0.74 mg/dL Normal 0.58-0.96 [facility] Comment on above: Performed By: #### U AMIC, UA #### [facility] [address] [place] [address] eGFR- Amer. >60 Normal [facility] Comment on above: Performed By: #### U AMIC, UA #### [facility] [address] [place] [address] eGFR-All Other Races >60 Normal [facility] Comment on above: Result Comment: eGFR (Estimated GFR) Units of measure: mL/min/1.73 meters squared eGFR is derived from the reexpressed MDRD Study equation using the following parameters: serum creatinine, age, gender and race. The creatinine assay has been calibrated to be traceable to IDMS. An eGFR <60 mL/min/1.73m2 for >3 months is consistent with chronic kidney disease. Refer to KDOQI guidelines for clinical interpretation. In patients with unstable renal function, e.g. those with acute kidney injury, the eGFR may not accurately reflect actual GFR. Performed By: #### U AMIC, UA #### [facility] [address] [place] [address] Glucose [Mass/Vol] 193 mg/dL High 74-99 [facility] Comment on above: Result Comment: The [place] Diabetes [employer] (ADA) provides guidance for cutoff values for fasting glucose and random glucose. The ADA defines fasting as no caloric intake for at least 8 hours. Fasting plasma glucose results between 100 to 125 mg/dL indicate increased risk for diabetes (prediabetes). Fasting plasma glucose results greater than or equal to 126 mg/dL meet the criteria for diagnosis of diabetes. In the absence of unequivocal hyperglycemia, results should be confirmed by repeat testing. In a patient with classic symptoms of hyperglycemia or hyperglycemic crisis, random plasma glucose results greater than or equal to 200 mg/dL meet the criteria for diagnosis of diabetes. Reference: Standards of Medical Care in Diabetes 2016, [place] [employer]. Diabetes Care. 2016.39(Suppl 1). Performed By: #### U [facility], UA #### [facility] [address] [place] [address] Potassium [Moles/Vol] 4.0 mmol/L Normal 3.7-5.1 [facility] Comment on above: Performed By: #### U [facility] UA #### [facility] [address] [place] [address] Sodium [Moles/Vol] 137 mmol/L Normal 136-144 [facility] Comment on above: Performed By: #### U [facility], UA #### [facility] [address] [place] [address] Urea nitrogen [Mass/Vol] 12 mg/dL Normal 7-21 [facility] Comment on above: Performed By: #### U [facility], UA #### [facility] [address] [place] [address] CBCon 08-06-2021 Absolute nRBC <0.01 Normal <0.01 [facility] Comment on above: Performed By: #### U [facility], UA #### [facility] [address] [place] [address] Erythrocyte distribution width (RBC) [Ratio] 14.7 % Normal 11.5-15.0 [facility] Comment on above: Performed By: #### U [facility], UA #### [facility] [address] [place] [address] Hematocrit (Bld) [Volume fraction] 29.7 % Low 36.0-46.0 [facility] Comment on above: Performed By: #### U [facility], [facility] #### [facility] [address] [place] [place] [address] Hemoglobin (Bld) [Mass/Vol] 10.3 g/dL Low 11.5-15.5 [facility] Comment on above: Performed By: #### U AMIC, UA #### [facility] [address] MCH 29.6 pG Normal 26.0-34.0 [facility] Comment on above: Performed By: #### U AMIC, UA #### [facility] [address] MCHC (RBC) [Mass/Vol] 34.7 g/dL Normal 30.5-36.0 [facility] Comment on above: Performed By: #### U AMIC, UA #### [facility] [address] [place] [address] MCV (RBC) [Entitic vol] 85.3 fL Normal 80.0-100.0 [facility] Comment on above: Performed By: #### U AMIC, UA #### [facility] [address] [place] [address] Platelet mean volume (Bld) [Entitic vol] 10.3 fL Normal 9.0-12.7 [facility] [facility] Comment on above: Performed By: #### U AMIC, UA #### [facility] [address] [address] Platelets (Bld) [#/Vol] 181 10*3/uL Normal 150-400 [facility] Comment on above: Performed By: #### U AMIC, UA #### [facility] [address] RBC (Bld) [#/Vol] 3.48 10*6/uL Low 3.90-5.20 [facility] Comment on above: Performed By: #### U AMIC, UA #### [facility] [address] [id number] WBC (Bld) [#/Vol] 5.78 10*3/uL Normal 3.70-11.00 [facility] Comment on above: Performed By: #### U AMIC, UA #### [facility] [address] [id number] CONSULTon 08-06-2021 CONSULT HNO ID: [id number] Author: Nilda Lauren MD Service: Endocrinology Author Type: Physician Type: Consults Filed: 08/06/2021 3:38 PM Note Text: ENDOCRINOLOGY INITIAL CONSULT NOTE SERVICE DATE: 08/06/2021 SERVICE TIME: 10:50 AM REASON FOR CONSULT: Management of T2DM REQUESTING PHYSICIAN: AMOS JARRETT PRIMARY CARE PHYSICIAN: Sharon Foster MD Subjective Ms. Warren is a pleasant 36 year old female with HTN, T2DM, seizure disorder presented to the hospital after a syncopal event. Her labs on admission showed NA 128, K4.8, creatinine 1.23, glucose 554, AG 14, pH 7.31 and no ketones in the urine. Glucose levels gradually improved after starting subcutaneous insulin. Ms. Warren stated that she had gestational diabetes during her last , the last one being in 2012. She received Metformin and insulin at that time. Between 2012 and 2018, she did not have diabetes. However, in 2019 she started to have polyuria and polydipsia and she was diagnosed with type 2 diabetes. She was started on Metformin and has been on it until 2 weeks ago when she stopped it because her glucose levels were high and she thought it was not working. She was not aware if autoimmune diabetes antibodies have been checked. She reported episodes of passing out that mainly occur with exertion over the last 3 months. They last for about 2 minutes followed by spontaneous recovery. They can occur 4 times a day they are associated with excessive sweating, lightheadedness and palpitations. She denied convulsions, tongue biting or incontinence during the episodes. She mentioned that she previously had high blood pressure and was taking lisinopril and clonidine. However, over the last 3 months. Her blood pressure has been persistently low of any blood pressure medications. She also reported 20 pound unintentional weight loss over the same period of time but no other GI symptoms and no joint pains. She denied history of glucocorticoid exposure. PAST MEDICAL HISTORY Diagnosis Date - Diabetes mellitus of mother, complicating , childbirth, or the puerperium, unspecified as to episode of care(648.00) Gestational diabetes - Dysthymic disorder Depression (non-psychotic),postpar ashanti - Essential hypertension, benign - Hemorrhoids 05/19/2011 - History of gestational diabetes 10/31/2012 10/31/2012Patient had gestational diabetes with her last 2 pregnancies. She was on glyburide with the that she delivered in 2009. She was insulin-dependent her last . She delivered both of those pregnancies in [place]. Patient is obese. 3 hour G TT ordered by Dr. Jennings. - Migraine, unspecified, with intractable migraine, so stated, without mention of status migrainosus Migraine - Nipple discharge 02/19/2016 - PMH - PAST MEDICAL HISTORY OF DYSLEXIA - PMH - PAST MEDICAL HISTORY OF 1988 FRACTURED LEFT LEG - PMH - PAST MEDICAL HISTORY OF 01/2007 HOSPITALIZED FOR RUPTURED OVARIAN CYST - Seizure disorder (HCC) - Seizures (HCC) - SPINAL HEADACHE WITH DELIVERIES IN - Type 2 diabetes mellitus (HCC) - Unspecified asthma(493.90) PAST SURGICAL HISTORY Procedure Laterality Date - DELIVERY ONLY 2008,10/14/2009 , low cervicalx2 - DELIVERY ONLY 06/06/2013 , low transverse - COLONOSCOP W/ OR W/O BRSH SPEC 11/28/2013 Colonoscopy - EGD W/O OR W/BRUSH/WASH 11/28/2013 EGD - HYSTEROSCOPY BX W/WO DANDC 08/14/2019 hysteroscoy DANDC w/ mirena insertion - LIGATE FALLOPIAN TUBE 06/06/2013 Tubal ligation - REMOVAL OF GALLBLADDER 10/07/2018 theresa canton - REPAIR UMBILICAL HERNIA 06/20/[address] medium mesh [facility] FAMILY HISTORY Problem Relation Age of Onset - Asthma Mother - Hypertension Mother - Breast Cancer Mother - Diabetes Mother - Hypertension Father - Diabetes Father - Lipids Father - Strabismus Sister - Heart Maternal Grandmother SD - Cancer Maternal Grandfather LUNG CANCER - Cancer Paternal Grandfather THROAT CANCER - Breast Cancer Maternal Aunt - Breast Cancer Paternal Aunt Social History Tobacco Use - Smoking status: Former Smoker Packs/day: 0.50 Years: 10.00 Pack years: 5.00 Types: Cigarettes Quit date: 04/02/2019 Years since quittin.3 - Smokeless tobacco: Never Used Vaping Use - Vaping Use: Never used Substance Use Topics - Alcohol use: No - Drug use: Never busPIRone (BUSPAR) 10 mg tablet, Take 1 tablet by mouth twice daily., Disp: 60 tablet, Rfl: 1, 08/04/2021 at Unknown time PARoxetine (PAXIL) 40 mg tablet, Take 1 tablet by mouth once daily., Disp: 90 tablet, Rfl: 0, 08/04/2021 at Unknown time brexpiprazole (REXULTI) 1 mg tablet, Take 1.5 tablets by mouth once daily., Disp: 135 tablet, Rfl: 0, 08/04/2021 at Unknown time medroxyPROGESTERone (PROVERA) 10 mg tablet, Take 1 tablet by mouth as directed. for 7 days a month, Disp: 7 tablet, Rfl: 12, (more content not included)... [facility] CONSULT HNO ID: [id number] Author: Kurt Valdovinos MD Service: Cardiovascular Disease Author Type: Physician Type: Consults Filed: 08/06/2021 12:26 PM Note Text: CONSULT: CARDIOLOGY SERVICE SERVICE DATE: 08/06/2021 SERVICE TIME: 10:19 AM CONSULTING PHYSICIAN: Kurt Valdovinos PCP: Sharon Foster MD ATTENDING: Camryn Leone DO REASON FOR CONSULT: Hypotension and syncope. Subjective CHIEF COMPLAINT: Hyperglycemia [R73.9] Syncope [R55] HISTORY OF PRESENT ILLNESS: Ms. Warren is a 36 year old female with a past medical history of previous hypertension, now with hypotension, possible POTS, seizure disorder, diabetes mellitus, asthma, migraines and multiple other medical problems. The patient presented to the emergency room after a syncopal episode. She states that she could pass out as much as 4 times a day. She has had problems with low blood pressures with postural changes in the past. Now she is having problems with low blood pressure even without changes in position. She was previously hypertensive. She then had an infection with Covid. Since then she has had problems with low blood pressure. She has been taken off of all of her antihypertensive medications. Her seizure medications have been discontinued. She sees Dr. Mckeon in [place] for cardiac care. She has been given IV fluids and feels better however her blood pressure still remains relatively low. On presentation, she had a markedly elevated glucose level. Her sodium is diminished. Consider adrenal insufficiency. Endocrinology has been consulted for her diabetes care. PAST MEDICAL HISTORY Diagnosis Date - Diabetes mellitus of mother, complicating , childbirth, or the puerperium, unspecified as to episode of care(888.00) Gestational diabetes - Dysthymic disorder Depression (non-psychotic),postpar ashanti - Essential hypertension, benign - Hemorrhoids 05/19/2011 - History of gestational diabetes 10/31/2012 10/31/2012Patient had gestational diabetes with her last 2 pregnancies. She was on glyburide with the that she delivered in 2009. She was insulin-dependent her last . She delivered both of those pregnancies in [place]. Patient is obese. 3 hour G TT ordered by Dr. Jennings. - Migraine, unspecified, with intractable migraine, so stated, without mention of status migrainosus Migraine - Nipple discharge 02/19/2016 - PMH - PAST MEDICAL HISTORY OF DYSLEXIA - PMH - PAST MEDICAL HISTORY OF 1988 FRACTURED LEFT LEG - PMH - PAST MEDICAL HISTORY OF 01/2007 HOSPITALIZED FOR RUPTURED OVARIAN CYST - Seizure disorder (HCC) - Seizures (HCC) - SPINAL HEADACHE WITH DELIVERIES IN - Type 2 diabetes mellitus (HCC) - Unspecified asthma(493.90) PAST SURGICAL HISTORY Procedure Laterality Date - DELIVERY ONLY 2008,10/14/2009 , low cervicalx2 - DELIVERY ONLY 06/06/2013 , low transverse - COLONOSCOP W/ OR W/O BRSH SPEC 11/28/2013 Colonoscopy - EGD W/O OR W/BRUSH/WASH 11/28/2013 EGD - HYSTEROSCOPY BX W/WO DANDC 08/14/2019 hysteroscoy DANDC w/ mirena insertion - LIGATE FALLOPIAN TUBE 06/06/2013 Tubal ligation - REMOVAL OF GALLBLADDER 10/07/2018 theresa canton - REPAIR UMBILICAL HERNIA 06/20/[address] medium mesh [facility] FAMILY HISTORY Problem Relation Age of Onset - Asthma Mother - Hypertension Mother - Breast Cancer Mother - Diabetes Mother - Hypertension Father - Diabetes Father - Lipids Father - Strabismus Sister - Heart Maternal Grandmother SD - Cancer Maternal Grandfather LUNG CANCER - Cancer Paternal Grandfather THROAT CANCER - Breast Cancer Maternal Aunt - Breast Cancer Paternal Aunt Social History Tobacco Use - Smoking status: Former Smoker Packs/day: 0.50 Years: 10.00 Pack years: 5.00 Types: Cigarettes Quit date: 04/02/2019 Years since quittin.3 - Smokeless tobacco: Never Used Vaping Use - Vaping Use: Never used Substance Use Topics - Alcohol use: No - Drug use: Never Prior to Admission Medications Prescriptions Last Dose Informant Patient Reported? Taking? Blood Pressure Test Kit-Large Unknown at Unknown time No No Sig: Check blood pressure weekly and as needed. PARoxetine (PAXIL) 40 mg tablet 08/04/2021 at Unknown time No Yes Sig: Take 1 tablet by mouth once daily. albuterol HFA (PROAIR HFA) 90 mcg/actuation inhaler Unknown at Unknown time No No Sig: Inhale 2 Puffs as instructed every 4 hours as needed for wheezing/shortness of breath. blood sugar diagnostic (FREESTYLE LITE STRIPS) test strip Past Week at Unknown time No Yes Sig: Test blood sugar(s) 3 times daily. Dx: Type 2 DM - Controlled E11.9 Insulin: No brexpiprazole (REXULTI) 1 mg tablet 08/04/2021 at Unknown time No Yes Sig: Take 1.5 tablets by mouth once daily. busPIRone (BUSPAR) 10 mg tablet 08/04/2021 at Unknown time No Yes Sig: Take 1 tablet by mouth twice daily (more content not included)... Normal [facility] Cortisolon 08-06-2021 Cortisol 5.0 ug/dL Normal 4.8-19.5 [facility] Comment on above: Result Comment: Prov ided reference range is from 6-10 AM sample collection time. Cortisol Reference Range: 6-10 AM = 4.8-19.5 ug/dL, 4-8 PM = 2.5-11.9 ug/dL Note: Cortisol methodology changed on 06/15/2020. The current cortisol test is an electrochemiluminescence immunoassay (ECLIA) performed on the [employer] [id number] analyzer. Performed By: #### Sunny WONGRENE #### [facility] [address] [place] [address] Free T4on 08-06-2021 Free T4 [Mass/Vol] 1.0 ng/dL Normal 0.9-1.7 [facility] Comment on above: Performed By: #### U RENE FERNANDO #### [facility] [address] [place] [address] Lactateon 08-06-2021 Lactate [Moles/Vol] 2.0 mmol/L Normal 0.5-2.2 [facility] Comment on above: Performed By: #### Sunny WONGRENE #### [facility] [address] [place] [address] TSHon 08-06-2021 TSH Qn 1.300 m[IU]/L Normal 0.270-4.200 [facility] Comment on above: Result Comment: If t he patient is , TSH reference range varies by gestational period: First Trimester (weeks 9-12): 0.180-2.990 mcIU/mL Second Trimester: 0.110-3.980 mcIU/mL Third Trimester: 0.480-4.710 mcIU/mL Irving Simpson et al. A Practical Approach for the Verifications and Determination of Site- and Trimester-Specific Reference Intervals for Thyroid Function tests in . Thyroid, 2019:29:3:412-420. Rodríguez E, et al. 2017 Guidelines of the [place] Thyroid Association for the Diagnosis and Management of Thyroid Disease during and the . Thyroid, 2017:27:3:315-389. Performed By: #### T SH ####[facility] [id number] [id number] B-Hydroxybutyrateon 08-05-20 21 B-Hydroxybutyrate 0.27 mmol/L Normal <0.28 [facility] Comment on above: Performed By: #### B HB ####[facility] [phone] CBC and Differentialon 08-05 Abs Baso 0.08 k/uL Normal <0.11 [facility] Comment on above: Performed By: #### C OR #### [facility] [address] [address] Abs [place] 0.23 k/uL Normal <0.87 [facility] Comment on above: Performed By: #### C OR #### [facility] [employer] [address] [address] Abs Neut 5.31 k/uL Normal 1.45-7.50 [facility] Comment on above: Performed By: #### C OR #### [facility] [employer] [address] [address] ANC(includeSEG+BAND) 5.31 k/uL Normal [facility] Comment on above: Performed By: #### C OR #### [facility] [address] [address] Anisocytosis Ql (Bld) Present Normal [facility] Comment on above: Performed By: #### C OR #### [address] [place] [phone] Basophils/100 WBC (Bld) 1.0 % Normal [facility] Comment on above: Performed By: #### C OR #### [place] [address] [address] DTYPE Manual Diff Normal [facility] Comment on above: Performed By: #### C OR #### [address] [place] [phone] Eosinophils (Bld) [#/Vol] 0.15 10*3/uL Normal <0.46 [facility] Comment on above: Performed By: #### C OR #### [address] [phone] Eosinophils/100 WBC (Bld) 2.0 % Normal [facility] Comment on above: Performed By: #### C OR #### [address] [phone] Erythrocyte distribution width (RBC) [Ratio] 15.8 % High 11.5-15.0 [facility] Comment on above: Performed By: #### C OR #### [address] [phone] Hematocrit (Bld) [Volume fraction] 37.2 % Normal 36.0-46.0 [facility] Comment on above: Performed By: #### C OR #### [address] [phone] Hemoglobin (Bld) [Mass/Vol] 12.7 g/dL Normal 11.5-15.5 [facility] Comment on above: Performed By: #### C OR #### [address] [place] [phone] Left Shift Present Normal [facility] Comment on above: Performed By: #### C OR #### [id number] [place] [address] Lymphocytes (Bld) [#/Vol] 1.52 10*3/uL Normal 1.00-4.00 [facility] Comment on above: Performed By: #### C OR #### [address] [address] Lymphocytes/100 WBC (Bld) 20.0 % Normal [facility] Comment on above: Performed By: #### C OR #### [address] [address] MCH 29.1 pG Normal 26.0-34.0 [facility] Comment on above: Performed By: #### C OR #### [address] [address] MCHC (RBC) [Mass/Vol] 34.1 g/dL Normal 30.5-36.0 [facility] Comment on above: Performed By: #### C OR #### [address] [address] MCV (RBC) [Entitic vol] 85.1 fL Normal 80.0-100.0 [facility] Comment on above: Performed By: #### C OR #### [address] [address] Metamyelocytes/100 WBC (Bld) 4.0 % Normal [facility] Comment on above: Performed By: #### C OR #### [address] [address] Monocytes/100 WBC (Bld) 3.0 % Normal [facility] Comment on above: Performed By: #### C OR #### [address] [address] Neutrophils/100 WBC (Bld) 70.0 % Normal [facility] Comment on above: Performed By: #### C OR #### [facility] [address] [place], [place] [address] Platelet Estimate Platelet estimate adequate Normal [facility] Comment on above: Performed By: #### C OR #### [facility] [address] [place], [place] [address] Platelet mean volume (Bld) [Entitic vol] 10.9 fL Normal 9.0-12.7 [facility] Comment on above: Performed By: #### C OR #### [id number] [place] [address] Platelets (Bld) [#/Vol] 236 10*3/uL Normal 150-400 [facility] Comment on above: Performed By: #### C OR #### [address] [place], [place] [address] RBC (Bld) [#/Vol] 4.37 10*6/uL Normal 3.90-5.20 [facility] Comment on above: Performed By: #### C OR #### [address] [place] [phone] WBC (Bld) [#/Vol] 7.59 10*3/uL Normal 3.70-11.00 [facility] Comment on above: Performed By: #### C OR #### [facility] [address] [id number] CNTHERAPYon 08-05-2021 CNTHERAPY OT/PT/Speech Visit (PTMDRG) REINALDO WARREN ([id number]) 1985 F Date Time Provider Department 08/05/21 8:00 AM LYNDSEY JOHNSON PTMDRG Date Time Provider Department Center 08/05/2021 8:00 AM [id number] JOHNSON PTMDRG [facility] Reason for Visit: PT Eval [747] Patient Education [91] PT Discharge [752] Visit Diagnosis:Dizziness [R42] Allergies As of Date: 08/05/2021 Noted Allergy Reaction AUGMENTIN (AMOXICILLIN-POT CLAVUL*12/16/2010 1 - Mental Status Change SHELLFISH 12/12/2010 7 - Swelling TYLENOL #3 (CODEINE) 08/06/2007 7 - Swelling VENOM-HONEY BEE 12/28/2018 7 - Swelling Date Reviewed: 08/05/2021 Reviewed by: Johnna Correia RN - Fully Assessed Prescriptions as of 11/10/2021 - busPIRone (BUSPAR) 10 mg tablet Take 1 tablet by mouth twice daily. - PARoxetine (PAXIL) 40 mg tablet Take 1 tablet by mouth once daily. - REXULTI 1 mg tablet TAKE 1 AND 1/2 TABLETS BY MOUTH ONCE DAILY - insulin glargine (BASAGLAR KWIKPEN U-100 INSULIN) 100 unit/mL (3 mL) Inject 20 units SQ daily at bedtime. - midodrine (PROAMITINE) 5 mg tablet Take 1 tablet by mouth three times daily. - hydroCHLOROthiazide (HYDRODIURIL, ESIDRIX) 25 mg tablet TAKE 1 TABLET BY MOUTH EVERY DAY - dulaglutide (TRULICITY) 1.5 mg/0.5 mL pen injector Inject 1.5 mg subcutaneously one time a week. - busPIRone (BUSPAR) 10 mg tablet TAKE 1 TABLET BY MOUTH TWICE A DAY - flash glucose sensor (FREESTYLE EVERARDO 2 SENSOR) kit To check blood sugar 3-4 times a day. Uncontrolled type 2 diabetes - flash glucose scanning reader (FREESTYLE EVERARDO 2 READER) To use with the freestyle everardo sensor. Uncontrolled type 2 diabetes - Lancets lancets Test blood sugar(s) 4 times daily. Dx: Type 2 DM - Uncontrolled E11.65 Insulin: Yes - albuterol HFA (PROAIR HFA) 90 mcg/actuation inhaler Inhale 2 Puffs as instructed every 4 hours as needed for wheezing/shortness of breath. - hydrOXYzine HCl (ATARAX) 25 mg tablet Take 1 tablet by mouth three times daily as needed. - lisinopril (ZESTRIL, PRINIVIL) 40 mg tablet TAKE 1 TABLET BY MOUTH EVERY DAY - medroxyPROGESTERone (PROVERA) 10 mg tablet Take 1 tablet by mouth as directed. for 7 days a month - blood sugar diagnostic (FREESTYLE LITE STRIPS) test strip Test blood sugar(s) 3 times daily. Dx: Type 2 DM - Controlled E11.9 Insulin: No - Blood Pressure Test Kit-Large Check blood pressure weekly and as needed. Normal [facility] Comp Metabolic Panelon 08-05 Albumin [Mass/Vol] 4.7 g/dL Normal 3.9-4.9 [facility] Comment on above: Performed By: #### C OR #### [facility] [address] [place], [place] [address] ALP [Catalytic activity/Vol] 90 U/L Normal 34-123 [facility] Comment on above: Performed By: #### C OR #### [facility] [address] [place], [place] [address] ALT [Catalytic activity/Vol] 19 U/L Normal 7-38 [facility] Comment on above: Performed By: #### C OR #### [facility] [address] [place], [place] [address] Anion gap [Moles/Vol] 14 mmol/L Normal 9-18 [facility] Comment on above: Performed By: #### C OR #### [facility] [address] [place], [place] [address] AST [Catalytic activity/Vol] 17 U/L Normal 13-35 [facility] Comment on above: Performed By: #### C OR #### [facility] [address] [place], [place] [address] Bilirubin [Mass/Vol] 0.8 mg/dL Normal 0.2-1.3 [facility] Comment on above: Performed By: #### C OR #### [facility] [address] [place], [place] [address] Calcium [Mass/Vol] 9.7 mg/dL Normal 8.5-10.2 [facility] Comment on above: Performed By: #### C OR #### [facility] [address] [place], [place] [address] Chloride [Moles/Vol] 91 mmol/L Low 97-105 [facility] Comment on above: Performed By: #### C OR #### [facility] [address] [place], [place] [id number] CO2 [Moles/Vol] 23 mmol/L Normal 22-30 [facility] Comment on above: Performed By: #### C OR #### [facility] [address] [place], [place] [address] Creatinine [Mass/Vol] 1.23 mg/dL High 0.58-0.96 [facility] Comment on above: Performed By: #### C OR #### [facility] [address] [place], [place] [address] eGFR- Amer. 60 Normal [facility] Comment on above: Performed By: #### C OR #### [facility] [address] [place], [place] [address] eGFR-All Other Races 49 . Normal [facility] Comment on above: Result Comment: eGFR (Estimated GFR) Units of measure: mL/min/1.73 meters squared eGFR is derived from the reexpressed MDRD Study equation using the following parameters: serum creatinine, age, gender and race. The creatinine assay has been calibrated to be traceable to IDMS. An eGFR <60 mL/min/1.73m2 for >3 months is consistent with chronic kidney disease. Refer to KDOQI guidelines for clinical interpretation. In patients with unstable renal function, e.g. those with acute kidney injury, the eGFR may not accurately reflect actual GFR. Performed By: #### C OR #### [facility] [address] [place], [place] [address] Glucose [Mass/Vol] 554 mg/dL High 74-99 [facility] Comment on above: Result Comment: The [place] Diabetes Association (ADA) provides guidance for cutoff values for fasting glucose and random glucose. The ADA defines fasting as no caloric intake for at least 8 hours. Fasting plasma glucose results between 100 to 125 mg/dL indicate increased risk for diabetes (prediabetes). Fasting plasma glucose results greater than or equal to 126 mg/dL meet the criteria for diagnosis of diabetes. In the absence of unequivocal hyperglycemia, results should be confirmed by repeat testing. In a patient with classic symptoms of hyperglycemia or hyperglycemic crisis, random plasma glucose results greater than or equal to 200 mg/dL meet the criteria for diagnosis of diabetes. Reference: Standards of Medical Care in Diabetes 2016, [place] [employer] Association. Diabetes Care. 2016.39(Suppl 1). No call per procedure. 08/05/2021 1107 Performed By: #### C OR #### [facility] [address] [place], [place] [address] Potassium [Moles/Vol] 4.8 mmol/L Normal 3.7-5.1 [facility] Comment on above: Performed By: #### C OR #### [facility] [address] [place], [place] [address] Protein [Mass/Vol] 7.1 g/dL Normal 6.3-8.0 [facility] Comment on above: Performed By: #### C OR #### [facility] [address] [place], [place] [address] Sodium [Moles/Vol] 128 mmol/L Low 136-144 [facility] Comment on above: Performed By: #### C OR #### [facility] [address] [place], [place] [address] Urea nitrogen [Mass/Vol] 18 mg/dL Normal 7-21 [facility] Comment on above: Performed By: #### C OR #### [facility] [address] [place], [place] [address] ED NOTEon 08-05-2021 ED NOTE HNO ID: [id number] Author: Judy Diaz Service: ? Author Type: [employer] Type: ED Notes Filed: 08/05/2021 2:55 PM Note Text: GLUCOSE 331 [facility] ED NOTE HNO ID: [id number] Author: Walter Malave RN Service: ? Author Type: Registered Nurse Type: ED Notes Filed: 08/05/2021 10:01 AM Note Text: BGT 527 MD notified [facility] ED NOTE HNO ID: [id number] Author: Tracie Watts RN Service: ? Author Type: Registered Nurse Type: ED Notes Filed: 08/05/2021 9:35 AM Note Text: Pt at a PT appt, was standing when she had a synopal event. States she felt hot, got dizzy, and fell. She was caught. No head injury. Pt states she has been having problems with her blood pressure being too low lately. Pt denies any dizziness at this time [facility] ED PROV NOTEon 08-05-2021 ED PROV NOTE HNO ID: [id number] Author: Rashel Watts MD Service: ? Author Type: Physician Type: ED Provider Notes Filed: 08/05/2021 1:49 PM Note Text: ED Provider Note Patient Name: Reinaldo Warren SERVICE DATE: 08/05/21 History Patient presents with: Syncope 36-year-old female, with a history of diabetes, hypertension, migraines, asthma, hypotension, presents to the ED after syncopal event. The patient states for the last 3 months she has been having issues with syncope. She can pass out up to 4 times per day. She has been seeing cardiology, neurology and pulmonology for this. There is a suspected diagnosis of POTS. She used to struggle with hypertension, they removed her from all of those medications and she still remains hypotensive. She also has a history of seizures and they removed her for most of her seizure medications. She states that these episodes are not seizure in nature. States that she has nausea and sweating prior to the episode. Today's episode she did not hit the ground as she was caught. No injury. She is not on a blood thinner. History provided by: Patient and spouse PAST MEDICAL HISTORY Diagnosis Date - Diabetes mellitus of mother, complicating , childbirth, or the puerperium, unspecified as to episode of care(648.00) Gestational diabetes - Dysthymic disorder Depression (non-psychotic),postpar ashanti - Essential hypertension, benign - Hemorrhoids 05/19/2011 - History of gestational diabetes 10/31/2012 10/31/2012Patient had gestational diabetes with her last 2 pregnancies. She was on glyburide with the that she delivered in 2009. She was insulin-dependent her last . She delivered both of those pregnancies in [place]. Patient is obese. 3 hour G TT ordered by Dr. Jennings. - Migraine, unspecified, with intractable migraine, so stated, without mention of status migrainosus Migraine - Nipple discharge 02/19/2016 - PMH - PAST MEDICAL HISTORY OF DYSLEXIA - PMH - PAST MEDICAL HISTORY OF 1988 FRACTURED LEFT LEG - PMH - PAST MEDICAL HISTORY OF 01/2007 HOSPITALIZED FOR RUPTURED OVARIAN CYST - Seizure disorder (HCC) - Seizures (HCC) - SPINAL HEADACHE WITH DELIVERIES IN - Type 2 diabetes mellitus (HCC) - Unspecified asthma(493.90) PAST SURGICAL HISTORY Procedure Laterality Date - DELIVERY ONLY 2008,10/14/2009 , low cervicalx2 - DELIVERY ONLY 06/06/2013 , low transverse - [facility] Colonoscopy - EGD W/O OR W/BRUSH/WASH 11/28/2013 EGD - HYSTEROSCOPY BX W/WO DANDC 08/14/2019 hysteroscoy DANKY w/ mirena insertion - LIGATE FALLOPIAN TUBE 06/06/2013 Tubal ligation - REMOVAL OF GALLBLADDER 10/07/2018 theresa canton - REPAIR UMBILICAL HERNIA 06/20/[address] medium mesh [facility] FAMILY HISTORY Problem Relation Age of Onset - Asthma Mother - Hypertension Mother - Breast Cancer Mother - Diabetes Mother - Hypertension Father - Diabetes Father - Lipids Father - Strabismus Sister - Heart Maternal Grandmother SD - Cancer Maternal Grandfather LUNG CANCER - Cancer Paternal Grandfather THROAT CANCER - Breast Cancer Maternal Aunt - Breast Cancer Paternal Aunt Social History Tobacco Use - Smoking status: Former Smoker Packs/day: 0.50 Years: 10.00 Pack years: 5.00 Types: Cigarettes Quit date: 04/02/2019 Years since quittin.3 - Smokeless tobacco: Never Used Vaping Use - Vaping Use: Never used Substance and Sexual Activity - Alcohol use: No - Drug use: Never - Sexual activity: Yes Partners: Male control/protection: Tubal Ligation ALLERGIES Allergen Reactions - Augmentin [Amoxicil* Mental Status Change - Shellfish Swelling - Tylenol #3 [Codeine] Swelling - Venom-Honey Bee Swelling Review of Systems Constitutional: Negative for chills and fever. HENT: Negative. Eyes: Negative for photophobia and visual disturbance. Respiratory: Negative for cough and shortness of breath. Cardiovascular: Negative for chest pain. Gastrointestinal: Positive for nausea. Negative for abdominal pain, constipation, diarrhea and vomiting. Genitourinary: Negative. Musculoskeletal: Negative for back pain and neck pain. Skin: Negative for rash and wound. Neurological: Positive for syncope and light-headedness. Negative for dizziness. Hematological: Negative. Psychiatric/Behavioral: Negative. Physical Exam Vitals [08/05/21 0935] BP Pulse Temp Temp src Resp SpO2 Weight Height (!) 78/52 (!) 101 37.3 ?C (99.2 ?F) Oral 20 98 % 86.6 kg (191 lb) -- Physical Exam Vitals and nursing note reviewed. Constitutional: General: She is not in acute distress. Appearance: Normal appearance. She is not ill-appearing or toxic-appearing. HENT: Head: Normocephalic and atraumatic. Nose: Nose normal. Mouth/Throat: Mouth: Mucous membranes are moist. Pharyn (more content not included)... Normal [facility] Expedited [id number] 08-05-20 SARS-CoV-2 (COVID-19) RNA TAMMY+probe Ql (Unsp spec) UPPER RESPIRATORY TRACT SWAB Normal [facility] Comment on above: Performed By: #### E XCOVD ####[facility] [address] [place], [place] [phone] SARS-CoV-2 (COVID-19) RNA TAMMY+probe Ql (Unsp spec) Negative for COVID19 (SARS CoV2) by RT-PCR or equivalent method. Normal Negative for COVID19 (SARS CoV2) by RT-PCR or equivalent method. [facility] Comment on above: Result Comment: This test has been authorized by FDA under an Emergency Use Authorization (EUA). Performed By: #### E XCOVD ####[facility] [address] [place] [phone] HISTORY PHYSICALon HISTORY PHYSICAL HNO ID: [id number] Author: Amos Jarrett DO Service: Hospital Medicine Author Type: Physician Type: HANDP Filed: 08/05/2021 9:32 PM Note Text: HOSPITAL MEDICINE HISTORY AND PHYSICAL PCP: Sharon Foster MD NIGHT AND WEEKEND COVERAGE: JENKS COVERAGE: Days: [phone], please page attending physician. Nights: [phone], please page [place] [facility] Night coverage pager [phone]. SUBJECTIVE Chief Complaint: syncope HPI: 36-year-old female, with a history of diabetes, hypertension, migraines, asthma, hypotension, presents to the ED after syncopal event. The patient states for the last 3 months she has been having issues with syncope. She can pass out up to 4 times per day. She has been seeing cardiology, neurology and pulmonology for this. There is a suspected diagnosis of POTS. She used to struggle with hypertension, they removed her from all of those medications and she still remains hypotensive. She also has a history of seizures and they removed her for most of her seizure medications. She states that these episodes are not seizure in nature. States that she has nausea and sweating prior to the episode. Today's episode she did not hit the ground as she was caught. No injury. She is not on a blood thinner. She states that she hasnt been taking her metformin she just doesn't like it. She has been on bp meds for years and since she got covid her bp has been low. I held her bp meds today she did get fluid boluses in the ER and her BS was over 500. She is not in DKA. She was given some humulin R in the ER And her sugar cane down to 300's She is being admitted for the hypotension and syncope as well as the uncontrolled dm ? ? PAST MEDICAL HISTORY Diagnosis Date - Diabetes mellitus of mother, complicating , childbirth, or the puerperium, unspecified as to episode of care(648.00) Gestational diabetes - Dysthymic disorder Depression (non-psychotic),postpar ashanti - Essential hypertension, benign - Hemorrhoids 05/19/2011 - History of gestational diabetes 10/31/2012 10/31/2012Patient had gestational diabetes with her last 2 pregnancies. She was on glyburide with the that she delivered in 2009. She was insulin-dependent her last . She delivered both of those pregnancies in [place]. Patient is obese. 3 hour G TT ordered by Dr. Jennings. - Migraine, unspecified, with intractable migraine, so stated, without mention of status migrainosus Migraine - Nipple discharge 02/19/2016 - PMH - PAST MEDICAL HISTORY OF DYSLEXIA - PMH - PAST MEDICAL HISTORY OF 1988 FRACTURED LEFT LEG - PMH - PAST MEDICAL HISTORY OF 01/2007 HOSPITALIZED FOR RUPTURED OVARIAN CYST - Seizure disorder (HCC) - Seizures (HCC) - SPINAL HEADACHE WITH DELIVERIES IN - Type 2 diabetes mellitus (HCC) - Unspecified asthma(493.90) PAST SURGICAL HISTORY Procedure Laterality Date - DELIVERY ONLY 2008,10/14/2009 , low cervicalx2 - DELIVERY ONLY 06/06/2013 , low transverse - COLONOSCOP W/ OR W/O [facility] SPEC 11/28/2013 Colonoscopy - EGD W/O OR W/BRUSH/WASH 11/28/2013 EGD - HYSTEROSCOPY BX W/WO DANDC 08/14/2019 hysteroscoy DANDC w/ mirena insertion - LIGATE FALLOPIAN TUBE 06/06/2013 Tubal ligation - REMOVAL OF GALLBLADDER 10/07/2018 theresa canton - REPAIR UMBILICAL HERNIA 06/20/[address] medium mesh [facility] FAMILY HISTORY Problem Relation Age of Onset - Asthma Mother - Hypertension Mother - Breast Cancer Mother - Diabetes Mother - Hypertension Father - Diabetes Father - Lipids Father - Strabismus Sister - Heart Maternal Grandmother SD - Cancer Maternal Grandfather LUNG CANCER - Cancer Paternal Grandfather THROAT CANCER - Breast Cancer Maternal Aunt - Breast Cancer Paternal Aunt Social History Tobacco Use - Smoking status: Former Smoker Packs/day: 0.50 Years: 10.00 Pack years: 5.00 Types: Cigarettes Quit date: 04/02/2019 Years since quittin.3 - Smokeless tobacco: Never Used Vaping Use - Vaping Use: Never used Substance Use Topics - Alcohol use: No - Drug use: Never Medications: Reviewed Allergies: ALLERGIES Allergen Reactions - Augmentin [Amoxicil* Mental Status Change - Shellfish Swelling - Tylenol #3 [Codeine] Swelling - Venom-Honey Bee Swelling Review of Systems: GENERAL: No weight loss, malaise or fevers HEENT: Negative for frequent or significant headaches, No changes in hearing or vision, no nose bleeds or other nasal problems NECK: Negative for lumps, goiter, pain and significant neck swelling RESPIRATORY: Negative for cough, hemoptysis, wheezing, COPD, dyspnea or shortness of breath CARDIOVASCULAR: Negative for chest pain, leg swelling, hypertension, CHF or palpitations GI: No nausea, vomiting, or diarrhea : No history of dysuria, frequency or incontinence MUSCULOSKELETAL: Negative for joint pain or swelling, b (more content not included)... Normal [facility] Hemoglobin A1con 08-05-2021 Glucose [Mass/Vol] 189 mg/dL Normal [facility] Comment on above: Result Comment: eAG: (Estimated average glucose) is a calculated value from HgbA1c and is sales representative uniforms of the average blood glucose level in the last 2-3 month period. Performed By: #### U AMIC, UA #### [facility] [address] [facility] [phone] HbA1c (Bld) [Mass fraction] 8.2 % High 4.3-5.6 [facility] Comment on above: Result Comment: Amer [place] Diabetes Association guidelines indicate that patients with HgbA1c in the range 5.7-6.4% are at increased risk for development of diabetes, and intervention by lifestyle modification may be beneficial. HgbA1c greater or equal to 6.5% is considered diagnostic of diabetes. Performed By: #### U AMIC, UA #### [facility] [address] [facility] [phone] High Sens Troponin Ton 08-05 High Sensitivity PATRICIA <6 Normal <12 [facility] Comment on above: Performed By: #### H STNT ####[facility] [address] [phone] High Sensitivity PATRICIA <6 Normal <12 [facility] Comment on above: Performed By: #### H STNT ####[facility] [address] [place] [phone] Lactateon 08-05-2021 Lactate [Moles/Vol] 2.4 mmol/L High 0.5-2.2 [facility] Comment on above: Performed By: #### U AMIC, UA #### [facility] [address] [facility] [phone] Magnesiumon 08-05-2021 Magnesium [Mass/Vol] 2.1 mg/dL Normal 1.7-2.3 [facility] Comment on above: Performed By: #### C OR #### [facility] [address] [place], [place] [phone] Sepsis Lactateon 08-05-2021 Sepsis Lactate 2.2 mmol/L High 0.5-2.0 [facility] Comment on above: Result Comment: No c all per procedure. 08/05/21 1239 Performed By: #### S LACT ####[facility] [address] [place] [phone] Serum Beta HCG East/FH/KATHERINE/ME D/SL/LOon 08-05-2021 Serum Beta HCG East/FH/KATHERINE/MED/SL/LO Negative Normal Negative [facility] Comment on above: Result Comment: Fals e positives and false negatives are rare but have been described. Clinical correlation of the findings is recommended. Performed By: #### C OR #### [facility] [address] [place], [place] [phone] Urinalysison 08-05-2021 Bilirubin, Urine Negative Normal Negative [facility] Comment on above: Performed By: #### U AMIC, UA #### [facility] [address] [facility] [phone] Clarity (U) Clear Normal Clear [facility] Comment on above: Performed By: #### U AMIC, UA #### [facility] [address] [facility] [phone] Color (U) Yellow Normal Yellow [facility] Comment on above: Performed By: #### U AMIC, UA #### [facility] [address] [facility] [phone] Glucose Ql (U) 3+ mg/dL Critically abnormal Negative [facility] Comment on above: Performed By: #### U AMIC, UA #### [facility] [address] [place] [address] Hemoglobin/Blood,Ur 3+ Critically abnormal Negative [facility] Comment on above: Performed By: #### U AMIC, UA #### [facility] [address] [place] [address] Ketones Ql (U) Negative Normal Negative [facility] Comment on above: Performed By: #### U AMIC, UA #### [facility] [address] [place] [address] Leukest Negative Normal Negative [facility] Comment on above: Performed By: #### U AMIC, UA #### [facility] [address] [place] [address] Nitrite Ql (U) Negative Normal Negative [facility] Comment on above: Performed By: #### U AMIC, UA #### [facility] [address] [place] [address] pH (U) 6.0 [pH] Normal 5.0-8.0 [facility] Comment on above: Performed By: #### U AMIC, UA #### [facility] [address] [place] [address] Protein, Urine Negative Normal Negative [facility] Comment on above: Performed By: #### U AMIC, UA #### [facility] [address] [place] [address] Specific [place], Ur 1.010 Normal 1.005-1.030 [facility] Comment on above: Performed By: #### U AMIC, UA #### [facility] [address] [place] [address] Urobilinogen Qn (U) 0.2 {Kj'U}/dL Normal 0.2-1.0 [facility] Comment on above: Performed By: #### U AMIC, UA #### [facility] [address] [place] [address] Urine Microscopic (FOR LAB U SE ONLY)on 08-05-2021 Bacteria Occasional Critically abnormal 0 [facility] Comment on above: Performed By: #### U AMIC, UA #### [facility] [address] [place] [address] Cast SEE COMMENT Critically abnormal 0 [facility] Comment on above: Result Comment: 1-3 Hyaline Casts Performed By: #### U AMIC, UA #### [facility] [address] [place] [address] Epithelial cells LM Ql (Urine sed) SEE COMMENT Normal [facility] Comment on above: Result Comment: 5-10 Squamous Epithelial Cells Performed By: #### U AMIC, UA #### [facility] [address] RBC 3-5 Critically abnormal 0-3 [facility] Comment on above: Performed By: #### U AMIC, UA #### [facility] [address] [place] [address] WBC 0-5 Normal 0-5 [facility] Comment on above: Performed By: #### U AMIC, UA #### [facility] [address] XR Shoulder - right 3 Viewso n 01-06-2021 IMPRESSION: No evidence of fracture or other significant bone or joint abnormality. Data Collection Specialist: [facility] Transcribe Date/Time: Jan 06 2021 6:21P Dictated by : HORACIO YEPEZ MD This examination was interpreted and the report reviewed and electronically signed by: HORACIO YEPEZ MD on Jan 06 2021 6:22PM [facility] DIVISION OF RADIOLOGY * * *Final Report* * * DATE OF EXAM: Jan 06 2021 6:04PM WOX 5253 - XR SHLDR >/=3V AP/MARYAM AP/OTHR RT / PROCEDURE REASON: Acute pain of right shoulder * * * * Physician Interpretation * * * * HISTORY: Acute right shoulder pain RIGHT SHOULDER: TECHNIQUE: Frontal views with internal and external rotation, and axillary view of the shoulder are obtained. RESULT: No evidence of fracture, or joint dislocation. No other significant bony or joint abnormality is noted. No abnormal calcific density is noted at shoulder area. The acromiohumeral interval is maintained. DIVISION OF RADIOLOGY Provider, [facility] * * *Final Report* * * DATE OF EXAM: Jan 06 2021 6:04PM WOX 5253 - XR SHLDR >/=3V AP/MARYAM AP/OTHR RT / PROCEDURE REASON: Acute pain of right shoulder * * * * Physician Interpretation * * * * HISTORY: Acute right shoulder pain RIGHT SHOULDER: TECHNIQUE: Frontal views with internal and external rotation, and axillary view of the shoulder are obtained. RESULT: No evidence of fracture, or joint dislocation. No other significant bony or joint abnormality is noted. No abnormal calcific density is noted at shoulder area. The acromiohumeral interval is maintained. IMPRESSION IMPRESSION: No evidence of fracture or other significant bone or joint abnormality. Data Collection Specialist: MELVIN Transcribe Date/Time: Jan 06 2021 6:21P Dictated by : HORACIO YEPEZ MD This examination was interpreted and the report reviewed and electronically signed by: HORACIO YEEPZ MD on Jan 06 2021 6:22PM EST [facility] Radiology Study observation (narrative) [facility] XR Shoulder - right 3 ViewsO rdered By: [facility] Provider on 01-06-2021 [facility] PAULO - Automatic Export[employer] PAULO - Automatic [place] REINALDO WARREN 1985 Date of Female Sex [id number] Patient Id [id number] [place] [address] AddressEnglish (preferred) Language White Race Not or Ethnicity Summary of Care Clinical Content Allergies and Adverse Reactions <#[id number]> Encounters <#[id number]> Family History <#[id number]> Functional Status <#[id number]> Immunization <#[id number]> Instructions <#[id number]> Interventions Provided <#[id number]> Medications <#IF6ULYIU> Past Medical History <#[id number]> Plan of Care <#FA0NTLEG> Problems <#[id number]> Procedures <#[id number]> Results <#GA4DDCFW> Social History <#UW3XOCRP> Vital Signs <#[id number]> Other Document Details Health Care Providers Functional Statustop <#top> Functional Status Health Issues NameDatesDetails Functional status health issues are not documented Cognitive Status Health Issues NameDatesDetails Cognitive status health issues are not documented Problemstop <#top> NameDatesDetails Active medical history not documented Medicationstop <#top> TrinanorisMonserrat Hydrocortisone (Perianal) 2.5 % External Cream Quantity: 30 Refills: 0 Start : 09-Feb-2020 PARoxetine HCl - 30 MG Oral Tablet Quantity: 30 Refills: 0 Start : 27-Jan-2020 Lisinopril 40 MG Oral Tablet Quantity: 30 Refills: 0 Start : 27-Jan-2020 OXcarbazepine 150 MG Oral Tablet Quantity: 120 Refills: 0 Start : 27-Jan-2020 Linzess 145 MCG Oral Capsule Quantity: 30 Refills: 0 Start : 27-Jan-2020 hydroCHLOROthiazide 25 MG Oral Tablet Quantity: 30 Refills: 0 Start : 27-Jan-2020 Promethazine HCl - 12.5 MG Oral Tablet Quantity: 12 Refills: 0 Start : 13-Jan-2020 Albuterol Sulfate HFA 108 (90 Base) MCG/ACT Inhalation Aerosol Solution Quantity: 7 Refills: 0 Start : 07-Nov-2019 Tranexamic Acid 650 MG Oral Tablet Quantity: 30 Refills: 0 Start : 09-Oct-2019 metFORMIN HCl - 500 MG Oral Tablet Quantity: 30 Refills: 0 Start : 20-Aug-2019 Escitalopram Oxalate 20 MG Oral Tablet Quantity: 30 Refills: 0 Start : 20-Aug-2019 Naproxen 500 MG Oral Tablet Quantity: 20 Refills: 0 Start : 14-Aug-2019 diphenhydrAMINE HCl - 25 MG Oral Tablet TAKE 3 TABLET AT BEDTIME. Refills: 0 Venkat Alvarado MD Start : 11-Feb-2020 Allergies and Adverse Reactionstop <#top> [place] No Known Drug Allergies (Allergy) Past Medical Historytop <#top> TrinaPortillojulia History of cerebrovascular accident (V12.54, Z86.73) Status: Resolved Procedurestop <#top> ProcedureDatesDejulia History of CholecystectomyComplete d Immunizationtop <#top> [place] Immunizations not documented Family Historytop <#top> Mother NameDnorisFloryisidoro Family history of diabetes mellitus (V18.0, Z83.3) Father NameDnorisFloryisidoro Family history of diabetes mellitus (V18.0, Z83.3) Social Historytop <#top> Smoking Status [place] Tobacco smoking consumption unknown (finding) Vital Signstop <#top> DateTestResultDetails 11-Feb-2020 13:38Systolic blood ollqityc804 mm[Hg] Diastolic blood jbyikffn15 mm[Hg] Oglifi320 lb Heart Oldu658 /min Resultstop <#top> DateDescriptionValueDet ails Results not documented Plan of Caretop <#top> NameDatesDetails Planned Observations Planned Goals not documented Interventions Providedtop <#top> Discussion/Summary You were seen today by Dr. Marr and Dr. Alvarado. It is a pleasure seeing you. According to history and clinical examination, we believe that your tremor is not related to organic damage in brain. 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 We recommend a cognitive behavioral therapy. Follow up in 6 months. Instructionstop <#top> NameDatesDetails Instructions not documented Encounterstop <#top> Appointment; Neeta Marr MD Encounter Diagnosis: Problem not documentedOn: 11-Feb-2020 14:00 Health Care Providerstop <#top> Ambulatory Health Care Facilities Amber Zavala [email or web address] Work Email Ambulatory Health Care Facilities Amber Brand [email or web address] Work Email [facility] [place] [id number] Address Document Detailstop <#top> [id number] Neeta Marr MD February 17, 2020 02:00 -0400 [id number] [place] [address] [phone] Work Phone Vito Normal [facility] sOffice Noteon 02-11-2020 sOffice Note The document you are trying to view is stored as a scanned image and cannot be viewed with the [employer] Document Viewer. Normal [facility] Vital Signs Date Time Vital Sign Value Performing Clinician Facility 05-20-2025 15:24-0400 Body temperature 97.6 [degF] Dr. Petros Jernigan MD Work Phone: [facility] 05-20-2025 15:24-0400 Diastolic blood pressure 87 mm[Hg] Dr. Petros Jernigan MD Work Phone: [facility] 05-20-2025 15:24-0400 Heart rate 73 /min Dr. Petros Jernigan MD Work Phone: [facility] 05-20-2025 15:24-0400 Respiratory rate 16 /min Dr. Petros Jernigan MD Work Phone: [facility] 05-20-2025 15:24-0400 SaO2% (BldA) [Mass fraction] 99 % Dr. Petros Jernigan MD Work Phone: [facility] 05-20-2025 15:24-0400 Systolic blood pressure 126 mm[Hg] Dr. Petros Jernigan MD Work Phone: [facility] 05-20-2025 13:41-0400 Body height 162.[address] Petros Jernigan MD Work Phone: [facility] 05-20-2025 13:41-0400 Body mass index (BMI) [Ratio] 33.3 kg/m2 Dr. Petros Jernigan MD Work Phone: [facility] 05-20-2025 13:41-0400 Body weight [address] Petros Jernigan MD Work Phone: [facility] 04-23-2025 13:59-0400 Body height 160 cm Petros Cespedes APRN-PUBLIC SAFETY TELECOMMUNICATOR Work Phone: [facility] 04-23-2025 13:59-0400 Body mass index (BMI) [Ratio] 35.07 kg/m2 Petros Cespedes APRN-PUBLIC SAFETY TELECOMMUNICATOR Work Phone: [facility] 04-23-2025 13:59-0400 Body weight 89.81 kg Petros Cespedes APRN-PUBLIC SAFETY TELECOMMUNICATOR Work Phone: [facility] 04-23-2025 13:59-0400 Diastolic blood pressure 96 mm[Hg] Petros Cespedes APRN-PUBLIC SAFETY TELECOMMUNICATOR Work Phone: [facility] 04-23-2025 13:59-0400 Heart rate 114 /min Petros Cespedes APRN-PUBLIC SAFETY TELECOMMUNICATOR Work Phone: [facility] 04-23-2025 13:59-0400 Systolic blood pressure 165 mm[Hg] Petros Cespedes PROSTHETICS LAB TECHNICIAN-PUBLIC SAFETY TELECOMMUNICATOR Work Phone: [facility] 04-16-2025 11:32-0400 Body mass index (BMI) [Ratio] 34.72 kg/m2 Renee Manuel MD Work Phone: [facility] 04-16-2025 11:32-0400 Body weight 88.91 kg Renee Manuel MD Work Phone: [facility] 04-16-2025 11:32-0400 Diastolic blood pressure 92 mm[Hg] Renee Manuel MD Work Phone: [facility] 04-16-2025 11:32-0400 Systolic blood pressure 146 mm[Hg] Renee Manuel MD Work Phone: [facility] 04-13-2025 13:49-0400 Body height 160.[address] Petros Jernigan MD Work Phone: [facility] 04-13-2025 13:49-0400 Body mass index (BMI) [Ratio] 35.3 kg/m2 Dr. Petros Jernigan MD Work Phone: [facility] 04-13-2025 13:49-0400 Body temperature 98.2 [degF] Dr. Petros Jernigan MD Work Phone: [facility] 04-13-2025 13:49-0400 Body weight 90.[address] Petros Jernigan MD Work Phone: [facility] 04-13-2025 13:49-0400 Diastolic blood pressure 105 mm[Hg] Dr. Petros Jernigan MD Work Phone: [facility] 04-13-2025 13:49-0400 Heart rate 86 /min Dr. Petros Jernigan MD Work Phone: [facility] 04-13-2025 13:49-0400 Respiratory rate 16 /min Dr. Petros Jernigan MD Work Phone: [facility] 04-13-2025 13:49-0400 SaO2% (BldA) [Mass fraction] 98 % Dr. Petros Jernigan MD Work Phone: [facility] 04-13-2025 13:49-0400 Systolic blood pressure 152 mm[Hg] Dr. Petros Jernigan MD Work Phone: [facility] 04-11-2025 02:16-0400 Diastolic blood pressure 74 mm[Hg] Ania Uriarte DO Work Phone: [facility] 04-11-2025 02:16-0400 Heart rate 81 /min Ania Uriarte DO Work Phone: [facility] 04-11-2025 02:16-0400 SaO2% (BldA) [Mass fraction] 97 % Ania Uriarte DO Work Phone: 3(326)[phone] [place] [address] 04-11-2025 02:16-0400 Systolic blood pressure 135 mm[Hg] Ania Uriarte DO Work Phone: 8(813)[phone] [place] [address] 04-11-2025 00:52-0400 Respiratory rate 20 /min Ania Uriarte DO Work Phone: 3(619)[phone] [place] [address] 04-10-2025 22:55-0400 Body height 160 cm Ania Uriarte DO Work Phone: 9(650)[phone] [place] [address] 04-10-2025 22:55-0400 Body mass index (BMI) [Ratio] 33.66 kg/m2 Ania Uriarte DO Work Phone: [facility] 04-10-2025 22:55-0400 Body temperature 98.01 [degF] Anai Uriarte DO Work Phone: [facility] 04-10-2025 22:55-0400 Body weight 86.18 kg Ania Uriarte DO Work Phone: [facility] 04-01-2025 16:42-0400 Diastolic blood pressure 88 mm[Hg] Petros Cespedes APRN-PUBLIC SAFETY TELECOMMUNICATOR Work Phone: [facility] 04-01-2025 16:42-0400 Heart rate 98 /min Petros Cespedespranay REILLYN-PUBLIC SAFETY TELECOMMUNICATOR Work Phone: [facility] 04-01-2025 16:42-0400 Respiratory rate 16 /min Petros Cespedes APRN-PUBLIC SAFETY TELECOMMUNICATOR Work Phone: [facility] 04-01-2025 16:42-0400 SaO2% (BldA) [Mass fraction] 96 % Petros Cespedes APRN-PUBLIC SAFETY TELECOMMUNICATOR Work Phone: [facility] 04-01-2025 16:42-0400 Systolic blood pressure 126 mm[Hg] Petros Cespedes APRN-PUBLIC SAFETY TELECOMMUNICATOR Work Phone: [facility] 04-01-2025 15:42-0400 Body temperature 97.81 [degF] Petros Cespedes APRN-PUBLIC SAFETY TELECOMMUNICATOR Work Phone: [facility] 04-01-2025 12:27-0400 Body height 162.6 cm Petros Cespedes APRN-PUBLIC SAFETY TELECOMMUNICATOR Work Phone: [facility] 04-01-2025 12:27-0400 Body mass index (BMI) [Ratio] 33.99 kg/m2 Petros Cespedes PROSTHETICS LAB TECHNICIAN-PUBLIC SAFETY TELECOMMUNICATOR Work Phone: [facility] 04-01-2025 12:27-0400 Body weight 89.81 kg Petros Cespedes APRN-PUBLIC SAFETY TELECOMMUNICATOR Work Phone: [facility] 03-12-2025 08:34-0400 Diastolic blood pressure 70 mm[Hg] [address] 03-12-2025 08:34-0400 Heart rate 97 /min [address] 03-12-2025 08:34-0400 Systolic blood pressure 95 mm[Hg] [address] 02-16-2025 13:54-0400 Body height 160 cm Clary FLOREZ, DNP Work Phone: [facility] 02-16-2025 13:54-0400 Body mass index (BMI) [Ratio] 35.59 kg/m2 Clary FLOREZ, DNP Work Phone: [facility] 02-16-2025 13:54-0400 Body weight 91.13 kg Clary Rakan ENNIS-PUBLIC SAFETY TELECOMMUNICATOR, DNP Work Phone: [facility] 02-16-2025 13:54-0400 Diastolic blood pressure 90 mm[Hg] Claryadithya Smith APRN-PUBLIC SAFETY TELECOMMUNICATOR, DNP Work Phone: [facility] 02-16-2025 13:54-0400 Heart rate 83 /min Claryadithya Smith APRN-PUBLIC SAFETY TELECOMMUNICATOR, DNP Work Phone: [facility] 02-16-2025 13:54-0400 SaO2% (BldA) [Mass fraction] 98 % Clary Rakan ENNIS-PUBLIC SAFETY TELECOMMUNICATOR, DNP Work Phone: [facility] 02-16-2025 13:54-0400 Systolic blood pressure 142 mm[Hg] Claryadithya Smith APRN-PUBLIC SAFETY TELECOMMUNICATOR, DNP Work Phone: [facility] 02-05-2025 18:59-0400 Diastolic blood pressure 79 mm[Hg] Mackenzie Gallardo DO Work Phone: [facility] 02-05-2025 18:59-0400 Heart rate 95 /min Mackenzie Albinohman DO Work Phone: [facility] 02-05-2025 18:59-0400 Respiratory rate 17 /min Mackenzie Posadahman DO Work Phone: [facility] 02-05-2025 18:59-0400 SaO2% (BldA) [Mass fraction] 98 % Mackenzie Sami DO Work Phone: [facility] 02-05-2025 18:59-0400 Systolic blood pressure 120 mm[Hg] Mackenzie Posadahman DO Work Phone: [facility] 02-05-2025 16:51-0400 Body height 160 cm Mackenzie Albinohman DO Work Phone: [facility] 02-05-2025 16:51-0400 Body mass index (BMI) [Ratio] 34.72 kg/m2 Mackenzie Gallardo DO Work Phone: [facility] 02-05-2025 16:51-0400 Body temperature 97.81 [degF] Mackenzie Gallardo DO Work Phone: [facility] 02-05-2025 16:51-0400 Body weight 88.91 kg Mackenzie Gallardo DO Work Phone: [facility] 02-05-2025 08:18-0400 Body height 160 cm Petros Cespedes PROSTHETICS LAB TECHNICIAN-PUBLIC SAFETY TELECOMMUNICATOR Work Phone: [facility] 02-05-2025 08:18-0400 Body mass index (BMI) [Ratio] 34.79 kg/m2 Petros Cespedes PROSTHETICS LAB TECHNICIAN-PUBLIC SAFETY TELECOMMUNICATOR Work Phone: [facility] 02-05-2025 08:18-0400 Body weight 89.09 kg Petros Cespedes PROSTHETICS LAB TECHNICIAN-PUBLIC SAFETY TELECOMMUNICATOR Work Phone: [facility] 02-05-2025 08:18-0400 Diastolic blood pressure 77 mm[Hg] Petros Cespedes PROSTHETICS LAB TECHNICIAN-PUBLIC SAFETY TELECOMMUNICATOR Work Phone: [facility] 02-05-2025 08:18-0400 Heart rate 91 /min Petros Cespedes APRN-PUBLIC SAFETY TELECOMMUNICATOR Work Phone: [facility] 02-05-2025 08:18-0400 Systolic blood pressure 119 mm[Hg] Petros Cespedes PROSTHETICS LAB TECHNICIAN-PUBLIC SAFETY TELECOMMUNICATOR Work Phone: [facility] 01-27-2025 03:37-0400 Diastolic blood pressure 81 mm[Hg] Ania Uriarte DO Work Phone: [facility] 01-27-2025 03:37-0400 Heart rate 90 /min Ania Uriarte DO Work Phone: [facility] 01-27-2025 03:37-0400 Respiratory rate 18 /min Ania Uriarte DO Work Phone: [facility] 01-27-2025 03:37-0400 SaO2% (BldA) [Mass fraction] 97 % Ania Uriarte DO Work Phone: [facility] 01-27-2025 03:37-0400 Systolic blood pressure 134 mm[Hg] Ania Uriarte DO Work Phone: [facility] 01-27-2025 01:48-0400 Body height 162.6 cm Ania Uriarte DO Work Phone: [facility] 01-27-2025 01:48-0400 Body mass index (BMI) [Ratio] 32.61 kg/m2 Ania Uriarte DO Work Phone: [facility] 01-27-2025 01:48-0400 Body temperature 97.7 [degF] Ania Uriarte DO Work Phone: [facility] 01-27-2025 01:48-0400 Body weight 86.18 kg Ania Uriarte DO Work Phone: [facility] 01-14-2025 09:02-0400 Body height 160 cm Petros Cespedes PROSTHETICS LAB TECHNICIAN-PUBLIC SAFETY TELECOMMUNICATOR Work Phone: [facility] 01-14-2025 09:02-0400 Body mass index (BMI) [Ratio] 34.79 kg/m2 Petros Cespedes PROSTHETICS LAB TECHNICIAN-PUBLIC SAFETY TELECOMMUNICATOR Work Phone: [facility] 01-14-2025 09:02-0400 Body weight 89.09 kg Petros Cespedes APRN-PUBLIC SAFETY TELECOMMUNICATOR Work Phone: [facility] 01-14-2025 09:02-0400 Diastolic blood pressure 89 mm[Hg] Petros Cespedes PROSTHETICS LAB TECHNICIAN-PUBLIC SAFETY TELECOMMUNICATOR Work Phone: [facility] 01-14-2025 09:02-0400 Heart rate 108 /min Petros Cespedes APRN-PUBLIC SAFETY TELECOMMUNICATOR Work Phone: [facility] 01-14-2025 09:02-0400 Systolic blood pressure 127 mm[Hg] Petros Cespedes PROSTHETICS LAB TECHNICIAN-PUBLIC SAFETY TELECOMMUNICATOR Work Phone: [facility] 12-31-2024 14:59-0400 Diastolic blood pressure 71 mm[Hg] Wolf Marin DO Work Phone: [facility] 12-31-2024 14:59-0400 Heart rate 106 /min Wolf Marin DO Work Phone: [facility] 12-31-2024 14:59-0400 Respiratory rate 20 /min Wolf Marin DO Work Phone: [facility] 12-31-2024 14:59-0400 SaO2% (BldA) [Mass fraction] 97 % Wolf Marin DO Work Phone: [facility] 12-31-2024 14:59-0400 Systolic blood pressure 100 mm[Hg] Wolf Marin DO Work Phone: [facility] 12-31-2024 13:54-0400 Body height 160 cm Wolf Marin DO Work Phone: [facility] 12-31-2024 13:54-0400 Body mass index (BMI) [Ratio] 33.66 kg/m2 Wolf Marin DO Work Phone: [facility] 12-31-2024 13:54-0400 Body temperature 97.59 [degF] Wolf Marin DO Work Phone: [facility] 12-31-2024 13:54-0400 Body weight 86.18 kg Wolf Marin DO Work Phone: [facility] 12-17-2024 09:39-0400 Body height 165.1 cm Petros Cespedes APRN-PUBLIC SAFETY TELECOMMUNICATOR Work Phone: [facility] 12-17-2024 09:39-0400 Body mass index (BMI) [Ratio] 32.92 kg/m2 Petros Cespedes APRN-PUBLIC SAFETY TELECOMMUNICATOR Work Phone: [facility] 12-17-2024 09:39-0400 Body weight 89.72 kg Petros Cespedes APRN-PUBLIC SAFETY TELECOMMUNICATOR Work Phone: [facility] 12-17-2024 09:39-0400 Diastolic blood pressure 119 mm[Hg] Petros Cespedes PROSTHETICS LAB TECHNICIAN-PUBLIC SAFETY TELECOMMUNICATOR Work Phone: [facility] 12-17-2024 09:39-0400 Heart rate 116 /min Petros Turciosley PROSTHETICS LAB TECHNICIAN-PUBLIC SAFETY TELECOMMUNICATOR Work Phone: [facility] 12-17-2024 09:39-0400 Systolic blood pressure 174 mm[Hg] Petros Cespedes PROSTHETICS LAB TECHNICIAN-PUBLIC SAFETY TELECOMMUNICATOR Work Phone: [facility] 12-10-2024 09:26-0500 Body height 165.1 cm Petros Cespedes PROSTHETICS LAB TECHNICIAN-PUBLIC SAFETY TELECOMMUNICATOR Work Phone: [facility] 12-10-2024 09:26-0500 Body mass index (BMI) [Ratio] 31.62 kg/m2 Petros Turciosley PROSTHETICS LAB TECHNICIAN-PUBLIC SAFETY TELECOMMUNICATOR Work Phone: [facility] 12-10-2024 09:26-0500 Body weight 86.18 kg Petros Cespedes PROSTHETICS LAB TECHNICIAN-PUBLIC SAFETY TELECOMMUNICATOR Work Phone: [facility] 11-26-2024 18:15-0500 Diastolic blood pressure 104 mm[Hg] Wolf Rodriguesdario DO Work Phone: [facility] 11-26-2024 18:15-0500 Heart rate 90 /min Wolf Che DO Work Phone: [facility] 11-26-2024 18:15-0500 Respiratory rate 18 /min Wolf Rodriguesdario DO Work Phone: [facility] 11-26-2024 18:15-0500 SaO2% (BldA) [Mass fraction] 98 % Wolf Lemasters DO Work Phone: [facility] 11-26-2024 18:15-0500 Systolic blood pressure 170 mm[Hg] Wolf Rodriguesasters DO Work Phone: [facility] 11-26-2024 15:01-0500 Body temperature 98.49 [degF] Wolf Marin DO Work Phone: [facility] 10-29-2024 16:17-0500 Diastolic blood pressure 100 mm[Hg] Pablo Andrews DO Work Phone: [facility] 10-29-2024 16:17-0500 Heart rate 101 /min Pablo Andrews DO Work Phone: [facility] 10-29-2024 16:17-0500 Respiratory rate 20 /min Pablo Andrews DO Work Phone: [facility] 10-29-2024 16:17-0500 SaO2% (BldA) [Mass fraction] 96 % Pablo Andrews DO Work Phone: [facility] 10-29-2024 16:17-0500 Systolic blood pressure 154 mm[Hg] Pablo Andrews DO Work Phone: [facility] 10-29-2024 12:09-0500 Body mass index (BMI) [Ratio] 31.62 kg/m2 Pablo Andrews DO Work Phone: [facility] 10-29-2024 12:09-0500 Body temperature 99.3 [degF] Pablo Andrews DO Work Phone: [facility] 10-29-2024 12:09-0500 Body weight 86.18 kg Pablo Andrews DO Work Phone: [facility] 07-17-2024 13:02-0400 Body mass index (BMI) [Ratio] 32.12 kg/m2 Elvis Randolph MD Work Phone: [facility] 07-17-2024 13:02-0400 Body weight 87.54 kg Elvis Randolph MD Work Phone: [facility] 07-15-2024 09:44-0400 Body height 165.1 cm Rashawn Royal PA-C Work Phone: [facility] 07-15-2024 09:44-0400 Body mass index (BMI) [Ratio] 32.28 kg/m2 Rashawn Killdeer PA-C Work Phone: [facility] 07-15-2024 09:44-0400 Body weight 88 kg Rashawn Allie PA-C Work Phone: [facility] 07-15-2024 09:44-0400 Diastolic blood pressure 84 mm[Hg] Rashawn Killdeer PA-C Work Phone: [facility] 07-15-2024 09:44-0400 Heart rate 92 /min Rashawn Allie PA-C Work Phone: [facility] 07-15-2024 09:44-0400 Systolic blood pressure 126 mm[Hg] Rashawn Allie PA-C Work Phone: [facility] 07-15-2024 09:04-0400 Body height 165.1 cm Rashawn Allie PA-C Work Phone: [facility] 07-15-2024 09:04-0400 Body mass index (BMI) [Ratio] 32.28 kg/m2 Rashawn Killdeer PA-C Work Phone: [facility] 07-15-2024 09:04-0400 Body weight 88 kg Rashawn Allie PA-C Work Phone: [facility] 07-15-2024 09:04-0400 Diastolic blood pressure 84 mm[Hg] Rashawn Killdeer PA-C Work Phone: [facility] 07-15-2024 09:04-0400 Heart rate 92 /min Rashawn Allie PA-C Work Phone: [facility] 07-15-2024 09:04-0400 Systolic blood pressure 126 mm[Hg] Rashawn Killdeer PA-C Work Phone: [facility] 07-09-2024 14:07-0400 Diastolic blood pressure 88 mm[Hg] Wolf Marin DO Work Phone: [facility] 07-09-2024 14:07-0400 Heart rate 81 /min Wolf Marin DO Work Phone: [facility] 07-09-2024 14:07-0400 Respiratory rate 16 /min Wolf Marin DO Work Phone: [facility] 07-09-2024 14:07-0400 SaO2% (BldA) [Mass fraction] 98 % Wolf Marin DO Work Phone: [facility] 07-09-2024 14:07-0400 Systolic blood pressure 129 mm[Hg] Wolf Marin DO Work Phone: [facility] 07-09-2024 11:37-0400 Body height 165.1 cm Wolf Marin DO Work Phone: [facility] 07-09-2024 11:37-0400 Body mass index (BMI) [Ratio] 31.62 kg/m2 Wolf Marin DO Work Phone: [facility] 07-09-2024 11:37-0400 Body temperature 98.01 [degF] Wolf Marin DO Work Phone: [facility] 07-09-2024 11:37-0400 Body weight 86.18 kg Wolf Marin DO Work Phone: [facility] 07-06-2024 21:24-0400 Diastolic blood pressure 108 mm[Hg] Petros Cespedes APRN-PUBLIC SAFETY TELECOMMUNICATOR Work Phone: [facility] 07-06-2024 21:24-0400 Heart rate 80 /min Petros Cespedes APRN-PUBLIC SAFETY TELECOMMUNICATOR Work Phone: [facility] 07-06-2024 21:24-0400 Respiratory rate 16 /min Petros Cespedes APRN-PUBLIC SAFETY TELECOMMUNICATOR Work Phone: [facility] 07-06-2024 21:24-0400 SaO2% (BldA) [Mass fraction] 97 % Petros Cespedes APRN-PUBLIC SAFETY TELECOMMUNICATOR Work Phone: [facility] 07-06-2024 21:24-0400 Systolic blood pressure 151 mm[Hg] Petros Cespedes PROSTHETICS LAB TECHNICIAN-PUBLIC SAFETY TELECOMMUNICATOR Work Phone: [facility] 07-06-2024 20:07-0400 Body height 165.1 cm Petros Cespedes PROSTHETICS LAB TECHNICIAN-PUBLIC SAFETY TELECOMMUNICATOR Work Phone: [facility] 07-06-2024 20:07-0400 Body mass index (BMI) [Ratio] 31.62 kg/m2 Petros Cespedes PROSTHETICS LAB TECHNICIAN-PUBLIC SAFETY TELECOMMUNICATOR Work Phone: [facility] 07-06-2024 20:07-0400 Body temperature 97.2 [degF] Petros Cespedes PROSTHETICS LAB TECHNICIAN-PUBLIC SAFETY TELECOMMUNICATOR Work Phone: [facility] 07-06-2024 20:07-0400 Body weight 86.18 kg Petros Cespedes PROSTHETICS LAB TECHNICIAN-PUBLIC SAFETY TELECOMMUNICATOR Work Phone: [facility] 05-09-2024 10:46-0400 Body mass index (BMI) [Ratio] 34.13 kg/m2 Angiedeanne Arteaga PROSTHETICS LAB TECHNICIAN.PUBLIC SAFETY TELECOMMUNICATOR Work Phone: [facility] 05-09-2024 10:46-0400 Body temperature 98.4 [degF] Angie Arteaga PROSTHETICS LAB TECHNICIAN.PUBLIC SAFETY TELECOMMUNICATOR Work Phone: [facility] 05-09-2024 10:46-0400 Body weight 87.4 kg Angie Arteaga PROSTHETICS LAB TECHNICIAN.PUBLIC SAFETY TELECOMMUNICATOR Work Phone: [facility] 05-09-2024 10:46-0400 Diastolic blood pressure 72 mm[Hg] Angie Arteaga PROSTHETICS LAB TECHNICIAN.PUBLIC SAFETY TELECOMMUNICATOR Work Phone: [facility] 05-09-2024 10:46-0400 Heart rate 108 /min Angie Arteaga PROSTHETICS LAB TECHNICIAN.PUBLIC SAFETY TELECOMMUNICATOR Work Phone: [facility] 05-09-2024 10:46-0400 Respiratory rate 21 /min Angie Arteaga PROSTHETICS LAB TECHNICIAN.PUBLIC SAFETY TELECOMMUNICATOR Work Phone: [facility] 05-09-2024 10:46-0400 SaO2% (BldA) [Mass fraction] 99 % Angie Arteaga PROSTHETICS LAB TECHNICIAN.PUBLIC SAFETY TELECOMMUNICATOR Work Phone: [facility] 05-09-2024 10:46-0400 Systolic blood pressure 110 mm[Hg] Angie Arteaga PROSTHETICS LAB TECHNICIAN.PUBLIC SAFETY TELECOMMUNICATOR Work Phone: [facility] 04-19-2024 16:35-0400 Diastolic blood pressure 74 mm[Hg] Chidi Dunbar MD Work Phone: [facility] 04-19-2024 16:35-0400 Heart rate 98 /min Chidi Dunbar MD Work Phone: [facility] 04-19-2024 16:35-0400 Respiratory rate 18 /min Chidi Dunbar MD Work Phone: [facility] 04-19-2024 16:35-0400 SaO2% (BldA) [Mass fraction] 98 % Chidi Dunbar MD Work Phone: [facility] 04-19-2024 16:35-0400 Systolic blood pressure 114 mm[Hg] Chidi Dunbar MD Work Phone: [facility] 04-19-2024 14:45-0400 Body height 160 cm Chidi Dunbar MD Work Phone: [facility] 04-19-2024 14:45-0400 Body mass index (BMI) [Ratio] 32.77 kg/m2 Chidi Dunbar MD Work Phone: [facility] 04-19-2024 14:45-0400 Body temperature 96.91 [degF] Chidi Dunbar MD Work Phone: [facility] 04-19-2024 14:45-0400 Body weight 83.92 kg Chidi Dunbar MD Work Phone: [facility] 04-06-2024 18:06-0400 SaO2% (BldA) [Mass fraction] 98 % Wolf Marin DO Work Phone: [facility] 04-06-2024 18:00-0400 Heart rate 103 /min Wolf Marin DO Work Phone: [facility] 04-06-2024 18:00-0400 Respiratory rate 20 /min Wolf Marin DO Work Phone: [facility] 04-06-2024 17:30-0400 Diastolic blood pressure 78 mm[Hg] Wolf Marin DO Work Phone: [facility] 04-06-2024 17:30-0400 Systolic blood pressure 106 mm[Hg] Wolf Lemasters DO Work Phone: [facility] 04-06-2024 15:45-0400 Body temperature 98.8 [degF] Wolf Marin DO Work Phone: [facility] 04-06-2024 14:09-0400 Body height 160 cm Wolf Marin DO Work Phone: [facility] 04-06-2024 14:09-0400 Body mass index (BMI) [Ratio] 31.89 kg/m2 Wolf Marin DO Work Phone: [facility] 04-06-2024 14:09-0400 Body weight 81.65 kg Wolf Marin DO Work Phone: [facility] 02-13-2024 18:01-0400 Diastolic blood pressure 101 mm[Hg] Wolf Marin DO Work Phone: [facility] 02-13-2024 18:01-0400 Heart rate 78 /min Wolf Marin DO Work Phone: [facility] 02-13-2024 18:01-0400 Respiratory rate 16 /min Wolf Marin DO Work Phone: [facility] 02-13-2024 18:01-0400 Systolic blood pressure 148 mm[Hg] Wolf Marin DO Work Phone: [facility] 02-13-2024 16:39-0400 SaO2% (BldA) [Mass fraction] 98 % Wolf Marin DO Work Phone: [facility] 02-13-2024 15:130400 Body height 160 cm Wolf Marin DO Work Phone: [facility] 02-13-2024 15:13-0400 Body mass index (BMI) [Ratio] 33.66 kg/m2 Wolf Lemasters DO Work Phone: [facility] 02-13-2024 15:13-0400 Body temperature 96.69 [degF] Wolf Lemdario DO Work Phone: [facility] 02-13-2024 15:130400 Body weight 86.18 kg Wolf Marin DO Work Phone: [facility] 01-10-2024 13:37-0400 Body temperature 97.59 [degF] No Generic Provider [facility] 01-10-2024 13:37-0400 Diastolic blood pressure 98 mm[Hg] No Generic Provider [facility] 01-10-2024 13:37-0400 Heart rate 90 /min No Generic Provider [facility] 01-10-2024 13:37-0400 Respiratory rate 16 /min No Generic Provider [facility] 01-10-2024 13:37-0400 SaO2% (BldA) [Mass fraction] 97 % No Generic Provider [facility] 01-10-2024 13:37-0400 Systolic blood pressure 136 mm[Hg] No Generic Provider [facility] 01-10-2024 12:53-0400 Body height 162.6 cm No Generic Provider [facility] 01-10-2024 12:53-0400 Body mass index (BMI) [Ratio] 32.44 kg/m2 No Generic Provider [facility] 01-10-2024 12:53-0400 Body weight 85.73 kg No Generic Provider [facility] 12-23-2023 19:59-0400 Diastolic blood pressure 74 mm[Hg] Wolf Marin DO Work Phone: [facility] 12-23-2023 19:59-0400 Heart rate 99 /min Wolf Marin DO Work Phone: [facility] 12-23-2023 19:59-0400 Respiratory rate 20 /min Wolf Marin DO Work Phone: [facility] 12-23-2023 19:59-0400 SaO2% (BldA) [Mass fraction] 100 % Wolf Marin DO Work Phone: [facility] 12-23-2023 19:59-0400 Systolic blood pressure 121 mm[Hg] Wolf Marin DO Work Phone: [facility] 12-23-2023 17:25-0400 Body height 162.6 cm Wolf Marin DO Work Phone: [facility] 12-23-2023 17:25-0400 Body mass index (BMI) [Ratio] 30.9 kg/m2 Wolf Marin DO Work Phone: [facility] 12-23-2023 17:25-0400 Body temperature 98.49 [degF] Wolf Marin DO Work Phone: [facility] 12-23-2023 17:25-0400 Body weight 81.65 kg Wolf Marin DO Work Phone: [facility] 12-07-2023 14:30-0500 Body temperature 95.7 [degF] Ania Uriarte DO Work Phone: [facility] 12-07-2023 14:30-0500 Diastolic blood pressure 65 mm[Hg] Ania Uriarte DO Work Phone: [facility] 12-07-2023 14:30-0500 Heart rate 84 /min Ania Uriarte DO Work Phone: [facility] 12-07-2023 14:30-0500 Respiratory rate 18 /min Ania Uriarte DO Work Phone: [facility] 12-07-2023 14:30-0500 SaO2% (BldA) [Mass fraction] 96 % Ania Uriarte DO Work Phone: [facility] 12-07-2023 14:30-0500 Systolic blood pressure 98 mm[Hg] Ania Uriarte DO Work Phone: [facility] 12-06-2023 03:07-0500 Body height 165.1 cm Ania Uriarte DO Work Phone: [facility] 12-06-2023 03:07-0500 Body mass index (BMI) [Ratio] 31.51 kg/m2 Ania Uriarte DO Work Phone: [facility] 12-06-2023 03:07-0500 Body weight 85.9 kg Ania Uriarte DO Work Phone: [facility] 11-07-2023 22:30-0500 Diastolic blood pressure 99 mm[Hg] [facility] 11-07-2023 22:30-0500 Heart rate 87 /min [facility] 11-07-2023 22:30-0500 Respiratory rate 21 /min [facility] 11-07-2023 22:30-0500 SaO2% (BldA) [Mass fraction] 98 % [facility] 11-07-2023 22:30-0500 Systolic blood pressure 139 mm[Hg] [facility] 11-07-2023 17:41-0500 Body height 160.02 cm [facility] 11-07-2023 17:41-0500 Body mass index (BMI) [Ratio] 35.1 kg/m2 [facility] 11-07-2023 17:41-0500 Body temperature 98 [degF] [facility] 11-07-2023 17:41-0500 Body weight 89.9 kg [facility] 07-11-2023 15:12-0400 Diastolic blood pressure 100 mm[Hg] Elidia Hamilton DO Work Phone: [facility] 07-11-2023 15:12-0400 Heart rate 90 /min Elidia Hamilton DO Work Phone: [facility] 07-11-2023 15:12-0400 Systolic blood pressure 121 mm[Hg] Elidia Hamilton DO Work Phone: [facility] 07-11-2023 12:40-0400 Body height 162.6 cm Elidia Hamilton DO Work Phone: [facility] 07-11-2023 12:40-0400 Body mass index (BMI) [Ratio] 34.33 kg/m2 Elidia Hamilton DO Work Phone: [facility] 07-11-2023 12:40-0400 Body temperature 98.01 [degF] Elidia Hamilton DO Work Phone: [facility] 07-11-2023 12:40-0400 Body weight 90.72 kg Elidia Hamilton DO Work Phone: [facility] 07-11-2023 12:40-0400 Respiratory rate 16 /min Elidia Hamilton DO Work Phone: [facility] 07-11-2023 12:40-0400 SaO2% (BldA) [Mass fraction] 98 % Elidia Hamilton DO Work Phone: [facility] 05-30-2023 15:15-0400 Body weight 92.53 kg Nilda Lauren MD Work Phone: [facility] 05-30-2023 15:15-0400 Diastolic blood pressure 97 mm[Hg] Nilda Lauren MD Work Phone: [facility] 05-30-2023 15:15-0400 Heart rate 53 /min Nilda Lauren MD Work Phone: [facility] 05-30-2023 15:15-0400 SaO2% (BldA) [Mass fraction] 99 % Nilda Lauren MD Work Phone: [facility] 05-30-2023 15:15-0400 Systolic blood pressure 138 mm[Hg] Nilda Lauren MD Work Phone: [facility] 05-29-2023 23:05-0400 Heart rate 110 /min No Pcp Required [facility] 05-29-2023 23:05-0400 SaO2% (BldA) [Mass fraction] 98 % No Pcp Required [facility] 05-29-2023 22:15-0400 Diastolic blood pressure 101 mm[Hg] No Pcp Required [facility] 05-29-2023 22:15-0400 Systolic blood pressure 123 mm[Hg] No Pcp Required [facility] 05-29-2023 21:00-0400 Respiratory rate 20 /min No Pcp Required [facility] 05-29-2023 19:40-0400 Body height 162.5 cm No Pcp Required [facility] 05-29-2023 19:40-0400 Body weight 90.9 kg No Pcp Required [facility] 05-25-2023 14:22-0400 Body height 160.02 cm No Primary Care Physician [facility] 05-25-2023 14:21-0400 Body mass index (BMI) [Ratio] 34.3 kg/m2 No Primary Care Physician [facility] 05-25-2023 14:21-0400 Body weight 87.99 kg No Primary Care Physician [facility] 05-25-2023 14:21-0400 Diastolic blood pressure 65 mm[Hg] No Primary Care Physician [facility] 05-25-2023 14:21-0400 Heart rate 140 /min No Primary Care Physician [facility] 05-25-2023 14:21-0400 Respiratory rate 18 /min No Primary Care Physician [facility] 05-25-2023 14:21-0400 SaO2% (BldA) [Mass fraction] 98 % No Primary Care Physician [facility] 05-25-2023 14:21-0400 Systolic blood pressure 123 mm[Hg] No Primary Care Physician [facility] 02-16-2023 12:47-0400 Body height 160 cm Brayden Kumar APRN.CNP Work Phone: [facility] 02-16-2023 12:47-0400 Body weight 92.08 kg Brayden Kumar APRN.CNP Work Phone: [facility] 02-16-2023 12:47-0400 Diastolic blood pressure 82 mm[Hg] Brayden Knoble PROSTHETICS LAB TECHNICIAN.PUBLIC SAFETY TELECOMMUNICATOR Work Phone: [facility] 02-16-2023 12:47-0400 Heart rate 114 /min Brayden Kumar PROSTHETICS LAB TECHNICIAN.PUBLIC SAFETY TELECOMMUNICATOR Work Phone: [facility] 02-16-2023 12:47-0400 Respiratory rate 16 /min Brayden Kumar PROSTHETICS LAB TECHNICIAN.PUBLIC SAFETY TELECOMMUNICATOR Work Phone: [facility] 02-16-2023 12:47-0400 Systolic blood pressure 126 mm[Hg] Brayden Kumar PROSTHETICS LAB TECHNICIAN.PUBLIC SAFETY TELECOMMUNICATOR Work Phone: [facility] 02-07-2023 11:01-0400 Body weight 88.91 kg Renee Manuel MD Work Phone: [facility] 02-07-2023 11:01-0400 Diastolic blood pressure 82 mm[Hg] Renee Manuel MD Work Phone: [facility] 02-07-2023 11:01-0400 Systolic blood pressure 132 mm[Hg] Renee Manuel MD Work Phone: [facility] 12-26-2022 20:09-0400 Respiratory rate 16 /min PA Abby Joseph PA Work Phone: [facility] 12-26-2022 16:16-0400 Diastolic blood pressure 81 mm[Hg] PA Abby Joseph PA Work Phone: [facility] 12-26-2022 16:16-0400 Heart rate 93 /min PA Abby Joseph PA Work Phone: [facility] 12-26-2022 16:16-0400 SaO2% (BldA) [Mass fraction] 98 % PA Abby Joseph PA Work Phone: [facility] 12-26-2022 16:16-0400 Systolic blood pressure 121 mm[Hg] PA Abby Joseph PA Work Phone: [facility] 12-26-2022 16:00-0400 Body mass index (BMI) [Ratio] 36.8 kg/m2 PA Abby Joseph PA Work Phone: [facility] 12-26-2022 16:00-0400 Body weight 94.3 kg PA Abby Joseph PA Work Phone: [facility] 12-26-2022 15:58-0400 Body height 160.02 cm PA Abby Joseph PA Work Phone: [facility] 12-26-2022 15:58-0400 Body temperature 98.2 [degF] PA Abby Joseph PA Work Phone: [facility] 12-18-2022 14:27-0400 Body height 160.02 cm PA Abby Joseph PA Work Phone: [facility] 12-18-2022 14:27-0400 Body mass index (BMI) [Ratio] 37.3 kg/m2 PA Abby Joseph PA Work Phone: [facility] 12-18-2022 14:27-0400 Body weight 95.7 kg PA Abby Joseph PA Work Phone: [facility] 12-18-2022 14:27-0400 Diastolic blood pressure 91 mm[Hg] PA Abby Joseph PA Work Phone: [facility] 12-18-2022 14:27-0400 Heart rate 95 /min PA Abby Joseph PA Work Phone: [facility] 12-18-2022 14:27-0400 Respiratory rate 18 /min PA Abby Joseph PA Work Phone: [facility] 12-18-2022 14:27-0400 SaO2% (BldA) [Mass fraction] 98 % PA Abby Joseph PA Work Phone: [facility] 12-18-2022 14:27-0400 Systolic blood pressure 137 mm[Hg] PA Abby Joseph PA Work Phone: [facility] 10-20-2022 15:09-0500 Body height 160 cm Sharmin Gandhi MD Work Phone: [facility] 10-20-2022 15:09-0500 Body weight 90.72 kg Sharmin Gandhi MD Work Phone: [facility] 10-20-2022 15:09-0500 Diastolic blood pressure 68 mm[Hg] Sharmin Gandhi MD Work Phone: [facility] 10-20-2022 15:09-0500 Heart rate 103 /min Sharmin Gandhi MD Work Phone: [facility] 10-20-2022 15:09-0500 Systolic blood pressure 94 mm[Hg] Sharmin Gandhi MD Work Phone: [facility] 09-27-2022 16:01-0500 Body height 160 cm Sharon Foster MD Work Phone: [facility] 09-27-2022 16:01-0500 Body temperature 97.7 [degF] Sharon Foster MD Work Phone: [facility] 09-27-2022 16:01-0500 Body weight 92.53 kg Sharon Foster MD Work Phone: [facility] 09-27-2022 16:01-0500 Diastolic blood pressure 92 mm[Hg] Sharon Foster MD Work Phone: [facility] 09-27-2022 16:01-0500 Heart rate 128 /min Sharon Foster MD Work Phone: [facility] 09-27-2022 16:01-0500 SaO2% (BldA) [Mass fraction] 100 % Sharon Foster MD Work Phone: [facility] 09-27-2022 16:01-0500 Systolic blood pressure 126 mm[Hg] Sharon Foster MD Work Phone: [facility] 09-25-2022 19:50-0500 Diastolic blood pressure 86 mm[Hg] No Pcp Required [facility] 09-25-2022 19:50-0500 Heart rate 104 /min No Pcp Required [facility] 09-25-2022 19:50-0500 Respiratory rate 16 /min No Pcp Required [facility] 09-25-2022 19:50-0500 SaO2% (BldA) [Mass fraction] 100 % No Pcp Required [facility] 09-25-2022 19:50-0500 Systolic blood pressure 130 mm[Hg] No Pcp Required [facility] 09-25-2022 16:55-0500 Body height 160 cm No Pcp Required [facility] 09-25-2022 16:55-0500 Body temperature 96.44 [degF] No Pcp Required [facility] 09-25-2022 16:55-0500 Body weight 91 kg No Pcp Required [facility] 09-24-2022 21:06-0500 Diastolic blood pressure 88 mm[Hg] No Pcp Required [facility] 09-24-2022 21:06-0500 Diastolic blood pressure 96 mm[Hg] No Pcp Required [facility] 09-24-2022 21:06-0500 Diastolic blood pressure 87 mm[Hg] No Pcp Required [facility] 09-24-2022 21:06-0500 Heart rate 98 /min No Pcp Required [facility] 09-24-2022 21:06-0500 Heart rate 108 /min No Pcp Required [facility] 09-24-2022 21:06-0500 Heart rate 100 /min No Pcp Required [facility] 09-24-2022 21:06-0500 Respiratory rate 20 /min No Pcp Required [facility] 09-24-2022 21:06-0500 SaO2% (BldA) [Mass fraction] 98 % No Pcp Required [facility] 09-24-2022 21:06-0500 Systolic blood pressure 130 mm[Hg] No Pcp Required [facility] 09-24-2022 21:06-0500 Systolic blood pressure 123 mm[Hg] No Pcp Required [facility] 09-24-2022 21:06-0500 Systolic blood pressure 126 mm[Hg] No Pcp Required [facility] 09-24-2022 21:06-0500 Systolic blood pressure 128 mm[Hg] No Pcp Required [facility] 09-24-2022 17:03-0500 Body height 160 cm No Pcp Required [facility] 09-24-2022 17:03-0500 Body temperature 97.52 [degF] No Pcp Required [facility] 09-24-2022 17:03-0500 Body weight 91 kg No Pcp Required [facility] 07-07-2022 22:29-0400 Diastolic blood pressure 107 mm[Hg] Gill Jauregui Other Phone: [facility] 07-07-2022 22:29-0400 Heart rate 95 /min Gill Juventino Other Phone: [facility] 07-07-2022 22:29-0400 Respiratory rate 15 /min Gill Juventino Other Phone: [facility] 07-07-2022 22:29-0400 SaO2% (BldA) [Mass fraction] 100 % Gill Juventino Other Phone: [facility] 07-07-2022 22:29-0400 Systolic blood pressure 152 mm[Hg] Gill Juventino Other Phone: [facility] 07-07-2022 21:12-0400 Body temperature 96.44 [degF] Gill Juventino Other Phone: [facility] 07-07-2022 21:12-0400 Body weight 95 kg Gill Juventino Other Phone: [facility] 02-05-2022 20:57-0400 Diastolic blood pressure 90 mm[Hg] JONI BORDENBranding Brand DO [facility] 02-05-2022 20:57-0400 Heart rate 92 /[facility] 02-05-2022 20:57-0400 Mean blood pressure 109 mm[Hg] JONI REICHFIELD DO [facility] 02-05-2022 20:57-0400 Respiratory rate 16 /min JONI REICHFIELD DO [facility] 02-05-2022 20:57-0400 Systolic blood pressure 148 mm[Hg] JONI REICHFIELD DO [facility] 02-05-2022 18:48-0400 Diastolic blood pressure 98 mm[Hg] JONI REICHFIELD DO [facility] 02-05-2022 18:48-0400 Heart rate 95 /min JONI REICHFIELD DO [facility] 02-05-2022 18:48-0400 Respiratory rate 16 /min JONI REICHFIELD DO [facility] 02-05-2022 18:48-0400 Systolic blood pressure 153 mm[Hg] JONI REICHFIELD DO [facility] 02-05-2022 18:28-0400 Body temperature 98.24 [degF] JONI REICHFIELD DO [facility] 02-05-2022 18:28-0400 Diastolic blood pressure 125 mm[Hg] JONI REICHFIELD DO [facility] 02-05-2022 18:28-0400 Heart rate 89 /min JONI LARSON DO [facility] 02-05-2022 18:28-0400 Respiratory rate 18 /min [facility] 02-05-2022 18:28-0400 Systolic blood pressure 174 mm[Hg] [facility] 02-11-2020 15:38-0400 Body weight 86.18 kg Neeta Marr QL-Yvbziztlb-Eoy urb an Work Phone: 02-11-2020 15:38-0400 BP Diastolic 85 mm[Hg] Neeta Marr YQ-Wlxsjpqiv-Hjw urb an Work Phone: 02-11-2020 15:38-0400 BP Systolic 131 mm[Hg] Neeta Marr HG-Ulrxovejg-Vzz urb an Work Phone: 02-11-2020 15:38-0400 Pulse (Heart Rate) 118 /min Neeta Russellh [facility]- [facility] Work Phone: Encounters Encounter Date Encounter Type Care Provider Facility Start: 05-20-2025 ambulatory Petros Cespedes Facility:[facility] Start: 05-20-2025 Non-patient / Non-visit Pipo Mccray nd, DO -[facility] Start: 05-20-2025 End: 05-20-2025 Admission to same day surgery center Pipo Romero DO -Endoscopy Work Phone: Start: 05-20-2025 End: 05-20-[address] Petros Jernigan MD Work Phone: -Endoscopy Start: 05-13-2025 End: 05-13-2025 ambulatory PETROS CESPEDES Facility:[facility] Start: 04-30-2025 End: 04-30-[address] 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 (Primary Dx); Hypertension associated with type 2 diabetes mellitus; Breast cancer screening by mammogram; Class 2 severe obesity due to excess calories with serious comorbidity and body mass index (BMI) of 35.0 to 35.9 in adult Start: 04-23-2025 End: 04-24-2025 Telephone encounter Renee Manuel MD Work Phone: OB/Gynecology Comment on above: Pelvic ultrasound re sults Start: 04-23-2025 End: 04-23-2025 ambulatory [facility] Start: 04-21-2025 End: 04-21-2025 Patient encounter procedure [facility]/Gynecology Start: 04-21-2025 End: 04-21-2025 ambulatory Admissions Coordinator [facility] Work Phone: OB/Gynecology Start: 04-16-2025 End: 04-16-[address] Petros Jernigan MD Work Phone: -Laboratory Specimen Start: 04-16-2025 End: 04-16-2025 Patient encounter procedure Lidia HUI -Laboratory Specimen Work Phone: Comment on above: Ovarian cyst, left ( Primary Dx); Pelvic pain in female; Poorly control type 2 diabetes mellitus (HCC); Chronic constipation; Cyst of left ovary; Dysmenorrhea Start: 04-16-2025 End: 04-16-2025 ambulatory Petros Cespedes Facility:[facility] Start: 04-13-2025 End: 04-13-[address] Petros Jernigan MD Work Phone: -Laboratory Start: 04-13-2025 End: 04-13-2025 Patient encounter procedure Lidia De Souza LABORER HEADING-C -Laboratory Work Phone: Start: 04-13-2025 End: 04-13-2025 Patient encounter procedure Lidia ARIASC -[facility] Work Phone: Start: 04-13-2025 End: 04-13-[address] Petros Jernigan MD Work Phone: -[facility] Start: 04-13-2025 End: 04-13-2025 ambulatory Petros Jernigan Facility:[facility] Start: 04-12-2025 End: 04-12-2025 Emergency department patient visit PHYSICIAN [facility] Start: 04-10-2025 End: 04-11-2025 Emergency department patient visit Ania Uriarte Work Phone: [facility] Emergency Medicine Comment on above: Pain of upper abdome n (Primary Dx) Start: 04-01-2025 End: 04-01-2025 Emergency department patient visit PETROS CESPEDES [facility] Emergency Medicine Comment on above: Nausea and vomiting, unspecified vomiting type (Primary Dx); Viral syndrome Start: 03-30-2025 End: 2025 Refill Karolyn Espinal APRN.CNP Work Phone: Family Practice Comment on above: Refill Request Hello Start: 03-12-2025 End: 03-12-2025 Subsequent hospital visit by physician [address] Comment on above: Atypical chest pain Abnormal electrocard iogram (ECG) (EKG); Atypical chest pain Start: 03-12-2025 End: 03-12-2025 ambulatory CLARY SMITH [facility] Start: 03-09-2025 End: 03-09-2025 ambulatory PETROS CESPEDES [facility] Start: 02-23-2025 End: 02-24-2025 ambulatory CLARY SMITH [facility] Start: 02-16-2025 End: 02-16-2025 Office outpatient new 45 minutes Clary Smith PROSTHETICS LAB TECHNICIAN-PUBLIC SAFETY TELECOMMUNICATOR, DNP Work Phone: [facility] Comment on above: Abnormal electrocard iogram (ECG) (EKG) (Primary Dx); Hypertension associated with type 2 diabetes mellitus; POTS (postural orthostatic tachycardia syndrome); Atypical chest pain Start: 02-16-2025 End: 02-16-2025 ambulatory CLARY SMITH [facility] Start: 02-05-2025 End: 02-06-2025 Emergency department patient visit FREEDOM CORDON [facility] Start: 02-05-2025 End: 02-05-2025 Subsequent hospital visit by physician Ti Restrepo [facility] Start: 02-05-2025 End: 02-05-2025 Emergency department patient visit Mackenzie Gallardo DO Work Phone: [facility] Emergency Medicine Comment on above: Dizzy spells (Primar y Dx) Start: 02-05-2025 End: 02-05-2025 Office outpatient visit 15 minutes Petros Cespedes PROSTHETICS LAB TECHNICIAN-PUBLIC SAFETY TELECOMMUNICATOR Work Phone: [facility] Comment on above: Constipation, unspec ified constipation type (Primary Dx) Start: 02-05-2025 End: 02-05-2025 ambulatory [facility] Ambulatory Start: 01-27-2025 End: 01-27-2025 Emergency department patient visit Ania Uriarte DO Work Phone: [facility] Emergency Medicine Comment on above: Constipation, unspec ified constipation type (Primary Dx) Start: 01-18-2025 End: 01-19-2025 Refill Jeanette Miller APRN.PUBLIC SAFETY TELECOMMUNICATOR Work Phone: Psychiatry Comment on above: Refill Request Start: 01-16-2025 End: 01-16-2025 ambulatory [facility] Start: 01-16-2025 End: 01-16-2025 Subsequent hospital visit by physician Ti Goff [facility] Comment on above: Tachycardia; Hypertension associated with type 2 diabetes mellitus Start: 01-14-2025 End: 01-14-2025 ambulatory [facility] Start: 01-14-2025 End: 01-14-2025 Office outpatient visit 25 minutes Petros Cespedes PROSTHETICS LAB TECHNICIAN-PUBLIC SAFETY TELECOMMUNICATOR Work Phone: [facility] Comment on above: Shortness of breath (Primary Dx); Dizziness; Tachycardia; Low serum vitamin B12; Hypertension associated with type 2 diabetes mellitus; POTS (postural orthostatic tachycardia syndrome) Start: 12-31-2024 End: 12-31-2024 Emergency department patient visit Wolf Marin DO Work Phone: [facility] Emergency Medicine Comment on above: Shortness of breath (Primary Dx); Dizziness; Tachycardia Start: 12-17-2024 End: 12-17-2024 Office outpatient visit 25 minutes Petros Cespedes PROSTHETICS LAB TECHNICIAN-PUBLIC SAFETY TELECOMMUNICATOR Work Phone: [facility] Comment on above: 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 (Multi) (Primary Dx); Vitamin D deficiency; Low vitamin B12 level; Hypertension associated with stage 2 chronic kidney disease due to type 2 diabetes mellitus (Multi) Start: 12-17-2024 End: 12-17-2024 ambulatory [facility] Start: 12-10-2024 End: 12-10-2024 Office outpatient visit 25 minutes Petros Cespedes PROSTHETICS LAB TECHNICIAN-PUBLIC SAFETY TELECOMMUNICATOR Work Phone: [facility] Comment on above: Acute non-recurrent maxillary sinusitis (Primary Dx); Mixed diabetic hyperlipidemia associated with type 2 diabetes mellitus (Multi); Mild intermittent asthma, unspecified whether complicated ([facility]-HCC) Start: 12-10-2024 End: 12-10-2024 ambulatory [facility] Start: 11-26-2024 End: 11-26-2024 Emergency department patient visit Wolfyony Marin DO Work Phone: [facility] Emergency Medicine Comment on above: Syncope, unspecified syncope type (Primary Dx); Seizure-like activity (Multi) Start: 11-04-2024 End: 11-04-2024 [facility] Jeanette Miller PROSTHETICS LAB TECHNICIAN.PUBLIC SAFETY TELECOMMUNICATOR Work Phone: Psychiatry Comment on above: Generalized anxiety disorder (Primary Dx); Post-traumatic stress disorder, acute; Current severe 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 (HCC) Start: 11-04-2024 End: 11-04-2024 ambulatory JEANETTE ANGELA Facility:[facility] Start: 10-29-2024 End: 10-29-2024 Emergency department patient visit Pablo Andrews DO Work Phone: [facility] Emergency Medicine Comment on above: Depression, unspecif ied depression type (Primary Dx) Start: 10-29-2024 End: 10-29-2024 [facility] Jeanette Squiresley PROSTHETICS LAB TECHNICIAN.PUBLIC SAFETY TELECOMMUNICATOR Work Phone: Psychiatry Comment on above: Current severe episo de of major depressive disorder without psychotic features without prior episode (HCC); Generalized anxiety disorder; Post-traumatic stress disorder, acute Start: 10-29-2024 End: 10-29-2024 ambulatory JEANETTE MILLER Facility:[facility] Start: 10-23-2024 End: 10-23-2024 Telephone encounter Jeanettesapna Squiresley PROSTHETICS LAB TECHNICIAN.PUBLIC SAFETY TELECOMMUNICATOR Work Phone: Psychiatry Start: 08-28-2024 End: 08-28-2024 ambulatory Serina Canseco MA [facility] Start: 08-28-2024 End: 08-28-2024 Patient encounter procedure Serina Canseco MA [facility] Comment on above: Population Health Na vigation Outreach (ACO QAE Surge list 2023/) Start: 08-26-2024 End: 08-26-2024 ambulatory [facility] Start: 08-21-2024 End: 08-21-2024 ambulatory [facility] Start: 08-19-2024 End: 08-19-2024 ambulatory [facility] Ambulatory Start: 08-19-2024 End: 08-19-2024 Subsequent hospital visit by physician [facility] Comment on above: Arrived Start: 08-19-2024 End: 08-19-2024 ambulatory [facility] Start: 08-18-2024 End: 08-18-2024 ambulatory [facility] Start: 08-15-2024 End: 08-15-2024 ambulatory [facility] Start: 08-14-2024 End: 08-14-2024 [facility] Jeanette Miller APRN.PUBLIC SAFETY TELECOMMUNICATOR Work Phone: Psychiatry Comment on above: Current severe episo de of major depressive disorder without psychotic features without prior episode (HCC) (Primary Dx); Generalized anxiety disorder; PTSD (post-traumatic stress disorder) Start: 08-14-2024 End: 08-14-2024 Refill Jeanette Miller APRN.PUBLIC SAFETY TELECOMMUNICATOR Work Phone: Psychiatry Comment on above: Refill Request Start: 08-11-2024 End: 08-11-2024 [facility]ulatory [facility] [facility] Start: 08-08-2024 End: 08-08-2024 ambulatory [facility] Start: 08-06-2024 End: 08-06-2024 ambulatory [facility] Start: 07-31-2024 End: 07-31-2024 Office outpatient visit 25 minutes Elvis Randolph MD Work Phone: [facility] Comment on above: Rotator cuff tendoni tis, right Start: 07-31-2024 End: 07-31-2024 ambulatory [facility] Ambulatory Start: 07-31-2024 End: 07-31-2024 ambulatory [facility] Ambulatory Start: 07-31-2024 End: 07-31-2024 Office outpatient visit 15 minutes [facility] PROSTHETICS LAB TECHNICIAN-PUBLIC SAFETY TELECOMMUNICATOR [facility] Comment on above: Bipolar 2 disorder ( Multi); Severe episode of recurrent major depressive disorder, without psychotic features (Multi); Primary insomnia Start: 07-31-2024 End: 07-31-2024 Subsequent hospital visit by physician Point Of Care Ultrasound EF RAD EXTERNAL FILM VIRTUAL Comment on above: Arrived Start: 07-31-2024 End: 07-31-2024 ambulatory [facility] Start: 07-17-2024 End: 07-17-2024 Office outpatient visit 25 minutes Elvis Randolph MD Work Phone: [facility] Comment on above: Rotator cuff tendoni tis, right Start: 07-17-2024 End: 07-17-2024 ambulatory [facility] Ambulatory Start: 07-17-2024 End: 07-17-2024 Subsequent hospital visit by physician Point Of Care Ultrasound [facility] EXTERNAL FILM VIRTUAL Comment on above: Arrived Start: 07-17-2024 End: 07-17-2024 ambulatory [facility] Start: 07-17-2024 End: 07-17-2024 ambulatory Petros Isidoro Delon [facility] Start: 07-15-2024 End: 07-15-2024 Emergency department patient visit Petros Chaudhry lorraine Facility:[facility] Start: 07-15-2024 End: 07-15-2024 ambulatory [facility] Ambulatory Start: 07-15-2024 End: 07-15-2024 Office outpatient visit 25 minutes [facility] PROSTHETICS LAB TECHNICIAN-PUBLIC SAFETY TELECOMMUNICATOR Work Phone: [facility] Comment on above: Rotator cuff tendoni tis, right (Primary Dx); Other synovitis and tenosynovitis, right hand; Synovitis of finger Start: 07-15-2024 End: 07-15-2024 ambulatory [facility] Ambulatory Start: 07-15-2024 End: 07-15-2024 Erroneous Encounter Rashawn Royal PA-C Work Phone: [facility] Comment on above: ERRONEOUS ENCOUNTER- -DISREGARD (Primary Dx) Start: 07-15-2024 End: 07-15-2024 Office outpatient visit 25 minutes Rashawn Royal PA-C Work Phone: [facility] Comment on above: Primary hypertension (Primary Dx); Severe episode of recurrent major depressive disorder, without psychotic features (Multi); Generalized anxiety disorder with panic attacks; Rotator cuff tendonitis, right; Mild intermittent asthma without complication ([facility]) Start: 07-11-2024 End: 07-11-2024 ambulatory [facility] Ambulatory Start: 07-11-2024 End: 07-11-2024 Office outpatient new 45 minutes Augusta Chávez PROSTHETICS LAB TECHNICIAN-PUBLIC SAFETY TELECOMMUNICATOR Work Phone: [facility] Comment on above: Lumbar back pain wit h radiculopathy affecting left lower extremity (Primary Dx); Rotator cuff tendonitis, right Start: 07-09-2024 End: 07-09-2024 Emergency department patient visit Wolf Marin DO Work Phone: [facility] Emergency Medicine Comment on above: Chest pain, unspecif ied type (Primary Dx); Primary hypertension Start: 07-09-2024 End: 07-09-2024 ambulatory [facility] Start: 07-06-2024 End: 07-06-2024 Emergency department patient visit PETROS CESPEDES [facility] Emergency Medicine Comment on above: Elevated blood press ure reading (Primary Dx); Acute pain of right shoulder Start: 06-27-2024 End: 06-27-2024 ambulatory [facility] Start: 06-19-2024 End: 06-19-2024 ambulatory [facility] Start: 06-18-2024 End: 06-18-2024 ambulatory [facility] Start: 06-17-2024 End: 06-17-2024 ambulatory [facility] Start: 06-16-2024 End: 06-16-2024 ambulatory [facility] Start: 06-12-2024 End: 06-12-2024 [facility] Start: 06-12-2024 End: 06-12-2024 Office outpatient visit 15 minutes Viki M Jackie PROSTHETICS LAB TECHNICIAN-PUBLIC SAFETY TELECOMMUNICATOR Work Phone: [facility] Comment on above: Primary insomnia Start: 06-12-2024 End: 06-12-2024 ambulatory [facility] Start: 06-11-2024 End: 06-11-2024 ambulatory [facility] Start: 06-10-2024 End: 06-10-2024 ambulatory PETROS D [facility] Start: 06-05-2024 End: 06-05-2024 ambulatory PETROS D [facility] Start: 06-04-2024 End: 06-04-2024 ambulatory PETROS D [facility] Start: 06-03-2024 End: 06-03-2024 ambulatory Briana Cunninghamndell LABORER HEADING Facility:[facility] Start: 06-03-2024 End: 06-03-2024 ambulatory PETROS D [facility] Start: 06-02-2024 End: 06-02-2024 ambulatory PETROS D [facility] Start: 05-29-2024 End: 05-29-2024 Office outpatient visit 10 minutes Viki Blue PROSTHETICS LAB TECHNICIAN-PUBLIC SAFETY TELECOMMUNICATOR Work Phone: [facility] Comment on above: Bipolar 2 disorder ( Multi) Start: 05-29-2024 End: 05-29-2024 ambulatory [facility] Start: 05-28-2024 End: 05-28-2024 ambulatory PETROS D [facility] Start: 05-27-2024 End: 05-27-2024 ambulatory PETROS D [facility] Start: 05-26-2024 End: 05-26-2024 ambulatory PETROS D [facility] Start: 05-22-2024 Refill Jeanette Miller PROSTHETICS LAB TECHNICIAN.PUBLIC SAFETY TELECOMMUNICATOR Work Phone: Psychiatry Comment on above: Refill Request Start: 05-22-2024 End: 05-22-2024 Office outpatient visit 15 minutes Viki Blue PROSTHETICS LAB TECHNICIAN-PUBLIC SAFETY TELECOMMUNICATOR Work Phone: [facility] Comment on above: Bipolar 2 disorder ( Multi); Bipolar 1 disorder (Multi); Primary insomnia Start: 05-22-2024 End: 05-22-2024 ambulatory [facility] Start: 05-21-2024 End: 05-21-2024 ambulatory Jeanette Miller PROSTHETICS LAB TECHNICIAN.PUBLIC SAFETY TELECOMMUNICATOR Work Phone: Psychiatry Comment on above: Thank you Start: 05-20-2024 End: 05-20-2024 ambulatory PETROS D [facility] Start: 05-20-2024 End: 05-20-2024 ambulatory PETROS D [facility] Start: 05-15-2024 End: 05-15-2024 ambulatory PETROS D [facility] Start: 05-14-2024 End: 05-14-2024 ambulatory PETROS D [facility] Start: 05-13-2024 End: 05-13-2024 ambulatory PETROS D [facility] Start: 05-09-2024 End: 05-09-2024 Patient encounter procedure Angie Arteaga APRN.PUBLIC SAFETY TELECOMMUNICATOR Work Phone: [facility] Comment on above: Finger pain, right ( Primary Dx) Start: 05-08-2024 End: 05-08-2024 ambulatory [facility] Start: 05-07-2024 End: 05-07-2024 ambulatory PETROS D [facility] Start: 05-06-2024 End: 05-06-2024 ambulatory [facility] Start: 05-01-2024 End: 05-01-2024 ambulatory [facility] Ambulatory Start: 04-29-2024 End: 04-29-2024 ambulatory CAMRYN Cheney YASMANI [facility] Start: 04-22-2024 Telephone encounter Jeanette de leon APRN.PUBLIC SAFETY TELECOMMUNICATOR Work Phone: [facility] Comment on above: Discussion Start: 04-19-2024 End: 04-19-2024 Subsequent hospital visit by physician Ti Restrepo [facility] Comment on above: Arrived Start: 04-19-2024 End: 04-19-2024 Emergency department patient visit Chidi Dunbar MD Work Phone: [facility] Emergency Medicine Comment on above: Situational anxiety (Primary Dx); Panic attack Start: 04-11-2024 End: 04-11-2024 ambulatory JEANETTE MILLER Facility:[facility] Start: 04-11-2024 End: 04-11-2024 [facility] Jeanette Miller PROSTHETICS LAB TECHNICIAN.PUBLIC SAFETY TELECOMMUNICATOR Work Phone: Psychiatry Comment on above: Current severe episo de of major depressive disorder without psychotic features without prior episode (HCC); Generalized anxiety disorder Start: 04-09-2024 End: 04-09-2024 Office outpatient visit 25 minutes Petros Cespedes PROSTHETICS LAB TECHNICIAN-PUBLIC SAFETY TELECOMMUNICATOR Work Phone: [facility] Comment on above: Severe episode of re current major depressive disorder, without psychotic features (Multi) (Primary Dx); Primary hypertension; Mixed diabetic hyperlipidemia associated with type 2 diabetes mellitus (Multi); Vitamin D deficiency; Low serum vitamin B12; Low iron Start: 04-08-2024 End: 04-08-2024 ambulatory PETROS Scott CESPEDES [facility] Start: 04-06-2024 End: 04-06-2024 Emergency department patient visit Wolf Marin DO Work Phone: [facility] Emergency [facility] Comment on above: Chest pain, unspecif ied type (Primary Dx); Dyspnea, unspecified type Start: 03-14-2024 Telephone encounter Jeanette de leon APRN.PUBLIC SAFETY TELECOMMUNICATOR Work Phone: Psychiatry Comment on above: Appointment Start: 02-17-[address] PROSTHETICS LAB TECHNICIAN.PUBLIC SAFETY TELECOMMUNICATOR Work Phone: [facility] Comment on above: Refill Request Start: 02-13-2024 End: 02-13-2024 Emergency department patient visit Wolf Marin DO Work Phone: [facility] Emergency Medicine Comment on above: Postural dizziness w ith presyncope (Primary Dx) Start: 01-30-2024 End: 01-30-2024 [facility] Jeanette Miller APRN.PUBLIC SAFETY TELECOMMUNICATOR Work Phone: Psychiatry Comment on above: Generalized anxiety disorder (Primary Dx); Current severe 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 (HCC) Start: 01-30-2024 End: 01-30-2024 ambulatory BRAYDEN KUMAR Facility:[facility] Start: 01-25-2024 Telephone encounter Karolyn dong APRN.PUBLIC SAFETY TELECOMMUNICATOR Work Phone: Family Practice Comment on above: Refill Request Start: 01-24-2024 Refill Jeanette Miller APRN.CNP Work Phone: Psychiatry Comment on above: Refill Request Start: 01-10-2024 End: 01-10-2024 Emergency department patient visit No Generic Provider [facility] Emergency [facility] Comment on above: Pain, dental (Primar y Dx); Elevated blood sugar Start: 12-31-2023 ambulatory Jeanette Miller APRN.PUBLIC SAFETY TELECOMMUNICATOR Work Phone: Psychiatry Comment on above: Hello Start: 12-28-2023 End: 12-28-2023 Distance [facility] Jeanette Miller APRN.PUBLIC SAFETY TELECOMMUNICATOR Work Phone: Psychiatry Comment on above: Current severe episo de of major depressive disorder without psychotic features without prior episode (HCC) (Primary Dx); Generalized anxiety disorder Start: 12-28-2023 End: 12-28-2023 ambulatory BRAYDEN KUMAR Facility:[facility] Start: 12-23-2023 End: 12-23-2023 Subsequent hospital visit by physician Ti Rest[facility] Comment on above: Arrived Start: 12-23-2023 End: 12-23-2023 Emergency department patient visit Wolf Marin DO Work Phone: [facility] Emergency Medicine Comment on above: Hypoglycemia (Primar y Dx); Urinary tract infection without hematuria, site unspecified Start: 12-12-2023 Telephone encounter Nilda Mandel i, MD Work Phone: Endocrinology Comment on above: Orders Start: 12-05-2023 End: 12-07-2023 Evaluation and management of inpatient Ania Uriarte DO Work Phone: [facility] 3 Comment on above: Periumbilical abdomi nal pain (Primary Dx); SBO (small bowel obstruction) (CMS/HCC) Start: 11-29-2023 End: 11-29-2023 Distance [facility] Jeanette Miller APRN.PUBLIC SAFETY TELECOMMUNICATOR Work Phone: Psychiatry Comment on above: Current severe episo de of major depressive disorder without psychotic features without prior episode (HCC) Start: 11-29-2023 End: 11-29-2023 ambulatory BRAYDEN KUMAR Facility:[facility] Start: 11-08-2023 Refill Jeanette Miller PROSTHETICS LAB TECHNICIAN.PUBLIC SAFETY TELECOMMUNICATOR Work Phone: Psychiatry Comment on above: Refill Request Start: 11-08-2023 Telephone encounter Jeanette de leon APRN.PUBLIC SAFETY TELECOMMUNICATOR Work Phone: Psychiatry Start: 11-07-2023 End: 11-07-2023 Emergency department patient visit [facility] Work Phone: Start: 09-17-2023 Refill Jeanette Miller PROSTHETICS LAB TECHNICIAN.PUBLIC SAFETY TELECOMMUNICATOR Work Phone: Psychiatry Comment on above: Refill Request Start: 09-16-2023 Refill Jeanette Miller PROSTHETICS LAB TECHNICIAN.PUBLIC SAFETY TELECOMMUNICATOR Work Phone: Psychiatry Comment on above: Refill Request Start: 08-16-2023 ambulatory Jeanette Miller PROSTHETICS LAB TECHNICIAN.PUBLIC SAFETY TELECOMMUNICATOR Work Phone: Psychiatry Comment on above: Medicine Start: 08-15-2023 Refill Jeanette Miller PROSTHETICS LAB TECHNICIAN.PUBLIC SAFETY TELECOMMUNICATOR Work Phone: Psychiatry Comment on above: Refill Request Medicine Start: 07-27-2023 End: 07-27-2023 [facility] Jeanette Miller PROSTHETICS LAB TECHNICIAN.PUBLIC SAFETY TELECOMMUNICATOR Work Phone: Psychiatry Comment on above: Current severe episo de of major depressive disorder without psychotic features without prior episode (HCC) Start: 07-11-2023 End: 07-11-2023 Emergency department patient visit Elidia Hamilton DO Work Phone: [facility] Emergency Medicine Comment on above: UTI (urinary tract i nfection), uncomplicated (Primary Dx); Syncope, near Start: 05-30-2023 End: 05-30-2023 Patient encounter procedure Nilda Lauren MD Work Phone: Endocrinology Comment on above: Poorly controlled ty pe 2 diabetes mellitus (HCC) (Primary Dx); Coarse tremors Start: 05-29-2023 End: 05-29-2023 Emergency department patient visit Ulises Whitaker [facility] Emergency 01 Start: 05-25-2023 End: 05-25-2023 ambulatory No Primary Care Physician [facility] Work Phone: Start: 05-25-2023 End: 05-25-2023 Patient encounter procedure No Primary Care Physician [facility] Work Phone: Start: 04-04-2023 ambulatory Sharmin Scott Work Phone: Neurology Epilepsy Comment on above: From Dr. Nuzhat Gandhi Start: 03-30-2023 Telephone encounter Sharmin Arauz am, MD Work Phone: Neurology Comment on above: Other (Return to wor k ) Start: 03-26-2023 ambulatory Sharmin Scott Work Phone: Neurology Epilepsy Comment on above: Back to work Start: 03-11-2023 Refill Karolyn Palma APRN.PUBLIC SAFETY TELECOMMUNICATOR Work Phone: [facility] Comment on above: Refill Request Start: 03-06-2023 Refill Jeanette Miller APRN.PUBLIC SAFETY TELECOMMUNICATOR Work Phone: Psychiatry Comment on above: Refill Request Start: 02-19-2023 Telephone encounter Brayden rios APRN.LOR Work Phone: [facility] Comment on above: Results Start: 02-16-[address] APRN.PUBLIC SAFETY TELECOMMUNICATOR Work Phone: [facility] Comment on above: Med Change Request Start: 02-16-2023 End: 02-16-2023 Patient encounter procedure Brayden Kumar APRN.CNP Work Phone: [facility] Comment on above: Type 2 diabetes romaine itus without complication, with long-term current use of insulin (HCC) (Primary Dx); Wellness examination; Vaginal itching; Seizure disorder (HCC); Type 2 diabetes mellitus with other specified complication, with long-term current use of insulin (HCC) Start: 02-16-2023 End: 02-16-2023 Patient encounter status Brayden Kumar APRN.PUBLIC SAFETY TELECOMMUNICATOR Work Phone: [facility] Medicine [place] Start: 02-07-2023 End: 02-07-2023 Patient encounter procedure Renee Manuel MD Work Phone: OB/Gynecology Comment on above: Nipple discharge (Pr imary Dx); Mass of right breast, unspecified quadrant Start: 02-05-2023 ambulatory Freedom chirinos RN NURSE [employer] Comment on above: Breast Problem Start: 01-28-2023 Refill Jeanette Miller APRN.PUBLIC SAFETY TELECOMMUNICATOR Work Phone: Psychiatry Comment on above: Refill Request Start: 01-23-2023 ambulatory Keya CASON Neurology Comment on above: Therapy options Start: 01-23-2023 E-mail encounter mary cheney caregiver Keya CASON [facility] Start: 01-16-2023 End: 01-16-2023 Social Work Psyl Adult Epilepsy Meteorological Engineer Work Phone: Neurology Start: 01-15-2023 E-mail encounter fro m caregiver [facility] Provider [facility] Start: 01-15-2023 Patient encounter procedure [facility] Provider Neurology Comment on above: Appointment change Start: 01-09-2023 Telephone encounter Sharmin Arauz am, MD Work Phone: Neurology Comment on above: Letter (Letter for w orfelicia) Start: 01-02-2023 End: 01-02-2023 ambulatory Sharmin Gandhi MD Work Phone: Neurology Epilepsy Comment on above: Need Start: 01-02-2023 Telephone encounter Jeanette de leon APRN.PUBLIC SAFETY TELECOMMUNICATOR Work Phone: Psychiatry Comment on above: Patient Question Start: 01-01-2023 Refill Jeanette Miller APRN.CNP Work Phone: Psychiatry Comment on above: Refill Request Start: 12-27-2022 ambulatory Sharmin Scott Work Phone: Neurology Epilepsy Comment on above: The classes Start: 12-26-2022 End: 12-26-2022 Emergency department patient visit YURIDIA SHI Work Phone: [facility]Emer[facility] Start: 12-26-2022 Non-patient / Non-visit PA Geo SHI Work Phone: [facility] Start: 12-26-2022 End: 12-26-2022 ambulatory PA Abby SHI Work Phone: [facility] Work Phone: Start: 12-26-2022 End: 12-26-2022 Patient encounter procedure YURIDIA SHI Work Phone: [facility]-Cardiovascular Services Start: 12-26-2022 End: 12-26-2022 Social Work Psyl Adult Epilepsy Meteorological Engineer Work Phone: Neurology Start: 12-18-2022 End: 12-18-2022 ambulatory YURIDIA SHI Work Phone: [facility] Work Phone: Start: 12-18-2022 End: 12-18-2022 Patient encounter procedure PA Abby SHI Work Phone: [facility] Start: 12-18-2022 End: 12-18-2022 ambulatory Cinthia Reed PA-C Work Phone: Neurology Comment on above: Psychogenic nonepile ptic seizure (Primary Dx) Start: 12-18-2022 End: 12-18-2022 Telemedicine consultation with patient Cinthia Reed PA-C Work Phone: [facility] Start: 12-15-2022 Refill Jeanette Miller APRN.PUBLIC SAFETY TELECOMMUNICATOR Work Phone: Psychiatry Comment on above: Refill Request Ok looking for a new Driving Letter (Return to wo ) Start: 12-12-2022 Refill Jeanette Miller APRN.PUBLIC SAFETY TELECOMMUNICATOR Work Phone: Psychiatry Comment on above: Refill Request Start: 12-10-2022 End: 12-10-2022 Emergency department patient visit BREANA SUTHERLAND Facility:[facility] Start: 12-05-2022 Refill Jeanette Miller PROSTHETICS LAB TECHNICIAN.PUBLIC SAFETY TELECOMMUNICATOR Work Phone: Psychiatry Comment on above: Refill Request Start: 12-04-2022 Refill Jeanette Miller PROSTHETICS LAB TECHNICIAN.PUBLIC SAFETY TELECOMMUNICATOR Work Phone: Psychiatry Comment on above: Refill Request Start: 11-29-2022 Non-patient / Non-visit PA Geo SHI Work Phone: [facility] Start: 11-28-2022 End: 11-28-2022 Patient encounter procedure YURIDIA SHI Work Phone: [facility]-Cardiovascular Services Start: 11-22-2022 End: 11-22-2022 ambulatory Tita Underwood PSYD Work Phone: Neurology Comment on above: Psychogenic nonepile ptic seizure Start: 11-22-2022 End: 11-22-2022 Telemedicine consultation with patient Tita Underwood PSYD Work Phone: [facility] Start: 11-14-2022 Refill Jeanette Squiresley PROSTHETICS LAB TECHNICIAN.PUBLIC SAFETY TELECOMMUNICATOR Work Phone: Psychiatry Comment on above: Refill Request Start: 11-13-2022 Refill Jeanette Miller PROSTHETICS LAB TECHNICIAN.PUBLIC SAFETY TELECOMMUNICATOR Work Phone: Psychiatry Comment on above: Refill Request Start: 11-01-2022 Telephone encounter Sharmin Arauz am, MD Work Phone: Neurology Comment on above: General (Return to w ork letter) Start: 10-23-2022 ambulatory Sharmin Scott Work Phone: Neurology Epilepsy Comment on above: Work related Start: 10-20-2022 End: 10-21-2022 ambulatory SHARON FOSTER Facility:[facility] Start: 10-20-2022 End: 10-20-2022 ambulatory [facility] Work Phone: Start: 10-20-2022 End: 01-13-2023 Patient encounter procedure Sharmin Gandhi MD Work Phone: Neurology Epilepsy Comment on above: Psychogenic nonepile ptic seizure (Primary Dx); Syncope and collapse Start: 10-05-2022 Telephone encounter Sharon Foster MD Work Phone: [facility] Comment on above: Forms ([employer] ) Start: 09-29-2022 Telephone encounter Sharon Foster MD Work Phone: [facility] Comment on above: Forms Start: 09-27-2022 End: 09-27-2022 Patient encounter procedure Sharon Foster MD Work Phone: [facility] Comment on above: Syncope, unspecified syncope type (Primary Dx); Type 2 diabetes mellitus with other specified complication, with long-term current use of insulin (HCC); Generalized anxiety disorder; Tachycardia Start: 09-26-2022 ambulatory Evangelina [employer] Comment on above: Symptoms Information Nurse Triage Call; S yncope Start: 09-26-2022 Telephone encounter Darshana Gray MD Work Phone: Neurology Comment on above: medication concern ( lisinopril) Patient Update Start: 09-25-2022 End: 09-25-2022 Emergency department patient visit Chidi Dunbar [facility] Emergency 12 Start: 09-24-2022 End: 09-24-2022 Emergency department patient visit Elidia Hamilton [facility] Emergency 16 Start: 09-21-2022 Patient Outreach Lorrie Hernández mbulatory Care Management Comment on above: Transition Of Care ( TCM F/U) Start: 09-19-2022 Refill Jeanette Miller APRN.PUBLIC SAFETY TELECOMMUNICATOR Work Phone: Psychiatry Comment on above: Refill Request Start: 09-12-2022 Patient Outreach Lorrie Hernández mbulatory Care Management Comment on above: Transition Of Care ( TCM F/U) Start: 08-28-2022 End: 08-28-2022 [facility] Jeanette Miller APRN.PUBLIC SAFETY TELECOMMUNICATOR Work Phone: Psychiatry Comment on above: Generalized anxiety disorder; Adjustment disorder with depressed mood; Current severe 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 (HCC) Refill Request Start: 08-24-2022 Patient Outreach Yolanda chapman [facility] Work Phone: Pharmacy Comment on above: Transition Of Care ( TCM Pharmacy-Hospital discharge 08/23/22/) Transition Of Care ( TCM Initial Outreach: [facility] [place] 08/23/22, AMS) Start: 08-23-2022 Orders Only Sharmin Scott Work Phone: Epilepsy Comment on above: Psychogenic nonepile ptic seizure (Primary Dx) Start: 08-20-2022 End: 08-23-2022 Evaluation and management of inpatient SHARON FOSTER Facility:[facility] Start: 08-20-2022 End: 08-20-2022 Emergency department patient visit SHARON FOSTER Facility:[facility] Start: 07-07-2022 End: 07-07-2022 Emergency department patient visit Dimitry Hernandez [facility] Emergency 08 Start: 07-04-2022 End: 07-04-2022 ambulatory Karolyn Doug ENNIS.PUBLIC SAFETY TELECOMMUNICATOR Work Phone: [facility] Comment on above: Muscle tightness (Pr imary Dx) Start: 07-04-2022 End: 07-04-2022 Telemedicine consultation with patient Karolyn Palma RAYMON.PUBLIC SAFETY TELECOMMUNICATOR Work Phone: 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 (HCC) Start: 06-12-2022 ambulatory Jeanette Miller APRN.PUBLIC SAFETY TELECOMMUNICATOR Work Phone: Psychiatry Comment on above: Need help Start: 06-05-2022 Refill Sharon nathan MD Work Phone: Family [facility] [place] Comment on above: Refill Request Start: 04-28-2022 Refill Sharon nathan MD Work Phone: Family Medicine [place] Comment on above: Refill Request Start: 2022 Refill Jeanette Miller APRN.PUBLIC SAFETY TELECOMMUNICATOR Work Phone: Psychiatry Comment on above: Refill Request Start: 03-03-2022 Refill Sharon nathan MD Work Phone: [facility] Comment on above: Refill Request Start: 02-20-2022 End: 02-20-2022 ambulatory Nilda Lauren MD Work Phone: Endocrinology Comment on above: Type 2 diabetes romaine itus with hyperglycaemia (HCC) (Primary Dx) Start: 02-20-2022 End: 02-20-2022 Telemedicine consultation with patient Nilda Lauren MD Work Phone: [facility] Start: 02-15-2022 Telephone encounter Nilda Mandel i, MD Work Phone: [place] Provider Adult Comment on above: Patient Question Start: 02-14-2022 ambulatory Serene Medina RN [employer] Comment on above: High Blood Sugar Start: 02-06-2022 ambulatory Nilda Lauren MD Work Phone: Endocrinology Comment on above: sugar Start: 02-06-2022 Refill Jeanette Miller APRN.PUBLIC SAFETY TELECOMMUNICATOR Work Phone: Psychiatry Comment on above: Refill Request Start: 02-05-2022 End: 02-05-2022 Emergency department patient visit JONI LARSON [facility] Start: 01-06-2021 End: 01-06-2021 Subsequent hospital visit by physician Xr [facility] [place] Work Phone: Radiology Comment on above: Acute pain of right shoulder [M25.511] Procedures Date Procedure Procedure Detail Performing Clinician Start: 05-20-[address] Petros Jernigan MD Work Phone: Start: 04-30-2025 [address] empt[address] study Dr. Petros Jernigan MD Work Phone: Start: 04-21-2025 Us pelvic nonobstetric real-time image complete Renee Manuel MD Work Phone: Start: 04-16-[address] Petros Jernigan MD Work Phone: Start: 04-16-[address] Petros Jernigan MD Work Phone: Start: 04-16-2025 Iadna-dna/rna gi pthgn multiplex probe tq 6-11 Dr. Petros Jernigan MD Work Phone: Start: 04-11-2025 Ct abdomen & pelvis w/contrast material Ania W Uriarte DO Work Phone: Start: 04-11-2025 Urnls dip stick/tablet rgnt auto w/o microscopy Ania W Uriarte DO Work Phone: Start: 04-10-2025 Comprehensive metabolic panel Ania W Uriarte DO Work Phone: Start: 04-01-2025 Influenza virus A and B RNA [Identifier] in Unspecified specimen by TAMMY with probe detection Freedom Cordon PROSTHETICS LAB TECHNICIAN-PUBLIC SAFETY TELECOMMUNICATOR Work Phone: Start: 04-01-2025 Respiratory syncytial virus RNA [Presence] in Respiratory specimen by TAMMY with probe detection Freedom Cordon PROSTHETICS LAB TECHNICIAN-PUBLIC SAFETY TELECOMMUNICATOR Work Phone: Start: 04-01-2025 SARS-CoV-2 (COVID-19) RNA [Presence] in Respiratory specimen by TAMMY with probe detection Freedom Cordon PROSTHETICS LAB TECHNICIAN-PUBLIC SAFETY TELECOMMUNICATOR Work Phone: Start: 03-12-2025 Cv strs tst xers&/or rx cont ecg trcg only Clary Smith PROSTHETICS LAB TECHNICIAN-PUBLIC SAFETY TELECOMMUNICATOR, DNP Work Phone: Start: 02-05-2025 EXTRA URINE WEBER TUBE Freedom johnson PROSTHETICS LAB TECHNICIAN-PUBLIC SAFETY TELECOMMUNICATOR Work Phone: Start: 02-05-2025 Urinalysis complete W Reflex Culture panel - Urine Freedom Cordon PROSTHETICS LAB TECHNICIAN-PUBLIC SAFETY TELECOMMUNICATOR Work Phone: Start: 02-05-2025 Urnls dip stick/tablet reagent auto microscopy Freedom Cordon PROSTHETICS LAB TECHNICIAN-PUBLIC SAFETY TELECOMMUNICATOR Work Phone: Start: 02-05-2025 Ecg routine ecg w/least 12 lds trcg only w/o i&r Freedom Cordon PROSTHETICS LAB TECHNICIAN-PUBLIC SAFETY TELECOMMUNICATOR Work Phone: Start: 02-05-2025 End: 02-05-2025 Basic metabolic panel calcium total Freedom Cordon PROSTHETICS LAB TECHNICIAN-PUBLIC SAFETY TELECOMMUNICATOR Work Phone: Start: 02-05-2025 Follow-up visit Follow-up PETROS CESPEDES Start: 01-27-2025 Urinalysis complete W Reflex Culture panel - Urine Ania W Uriarte DO Work Phone: Start: 01-27-2025 Urnls dip stick/tablet reagent auto microscopy Ania W Uriarte DO Work Phone: Start: 01-27-2025 Comprehensive metabolic panel Ania W Uriarte DO Work Phone: Start: 12-31-2024 Ecg routine ecg w/least 12 lds trcg only w/o i&r Wolf Rodriguesdario DO Work Phone: Start: 12-31-2024 Radiologic exam chest single view Wolf Rodriguesdario DO Work Phone: Start: 12-31-2024 Influenza virus A and B RNA [Identifier] in Unspecified specimen by TAMMY with probe detection Wolf Scott Che DO Work Phone: Start: 12-31-2024 SARS-CoV-2 (COVID-19) RNA [Presence] in Respiratory specimen by TAMMY with probe detection Wolf Scott Che DO Work Phone: Start: 12-31-2024 Comprehensive metabolic panel Wolf Scott Che DO Work Phone: Start: 12-15-2024 Lipid 1996 panel - Serum or Plasma Petros Cespedes PROSTHETICS LAB TECHNICIAN-PUBLIC SAFETY TELECOMMUNICATOR Work Phone: Start: 11-26-2024 Ecg routine ecg w/least 12 lds trcg only w/o i&r Wolf Rodriguesdario DO Work Phone: Start: 11-26-2024 Assay of lactate Wolf Marin DO Work Phone: Start: 11-26-2024 End: 11-26-2024 Comprehensive metabolic panel Wolf Marin DO Work Phone: Start: 11-26-2024 Ct head/brain w/o contrast material Wolf Marin DO Work Phone: Start: 11-26-2024 Radiologic exam chest single view Wolf Marin DO Work Phone: Start: 10-29-2024 Drug tst prsmv instrmnt chem analyzers pr date Freedom SHI-C Work Phone: Start: 10-29-2024 Urinalysis complete W Reflex Culture panel - Urine Freedom SHI-C Work Phone: Start: 10-29-2024 Urine test visual color cmprsn meths Freedom SHI-C Work Phone: Start: 10-29-2024 Urnls dip stick/tablet reagent auto microscopy Freedom Hein PA-C Work Phone: Start: 10-29-2024 ACUTE TOXICOLOGY PANEL, BLOOD [facility] SHI-[facility] Work Phone: Start: 10-29-2024 Comprehensive metabolic panel [facility] SHI-[facility] Work Phone: Start: 08-19-2024 US Abdomen Elvis Randolph MD Work Phone: Start: 07-31-2024 US Abdomen Elvis Randolph MD Work Phone: Start: 07-18-2024 Arthrocentesis aspir&/inj major jt/bursa w/o us Elvis Randolph MD Work Phone: Start: 07-17-2024 US Abdomen Elvis Randolph MD Work Phone: Start: 07-09-2024 Sars-cov-2 detection by dna/rna Freedom Cordon PROSTHETICS LAB TECHNICIAN-PUBLIC SAFETY TELECOMMUNICATOR Work Phone: Start: 07-09-2024 Radiologic exam chest single view Freedom Cordon PROSTHETICS LAB TECHNICIAN-PUBLIC SAFETY TELECOMMUNICATOR Work Phone: Start: 07-09-2024 End: 07-09-2024 Comprehensive metabolic panel Freedom Cordon PROSTHETICS LAB TECHNICIAN-PUBLIC SAFETY TELECOMMUNICATOR Work Phone: Start: 07-09-2024 Troponin I.cardiac panel - Serum or Plasma by High sensitivity method Freedom Cordon PROSTHETICS LAB TECHNICIAN-PUBLIC SAFETY TELECOMMUNICATOR Work Phone: Start: 07-09-2024 PULSE OXIMETRY, CONTINUOUS Freedom Cordon PROSTHETICS LAB TECHNICIAN-PUBLIC SAFETY TELECOMMUNICATOR Work Phone: Start: 07-09-2024 End: 07-09-2024 Ecg routine ecg w/least 12 lds trcg only w/o i&r Freedom Cordon PROSTHETICS LAB TECHNICIAN-PUBLIC SAFETY TELECOMMUNICATOR Work Phone: Start: 07-06-2024 Radex shoulder complete minimum 2 views Ania W Uriarte DO Work Phone: Start: 04-19-2024 Ecg routine ecg w/least 12 lds trcg only w/o i&r Chidi Dunbar MD Work Phone: Start: 04-08-2024 Lipid 1996 panel - Serum or Plasma Petros Cespedes PROSTHETICS LAB TECHNICIAN-PUBLIC SAFETY TELECOMMUNICATOR Work Phone: Start: 04-06-2024 Ecg routine ecg w/least 12 lds trcg only w/o i&r Wolf Rodriguesdario DO Work Phone: Start: 04-06-2024 Ct angiography chest w/contrast/noncontrast Wolf Rodriguesdario DO Work Phone: Start: 04-06-2024 Assay of troponin quantitative Wolf Scott Che DO Work Phone: Start: 04-06-2024 End: 04-06-2024 Comprehensive metabolic panel Wolf Rodriguesdario DO Work Phone: Start: 04-06-2024 Troponin I.cardiac panel - Serum or Plasma by High sensitivity method Wolf Marin DO Work Phone: Start: 04-06-2024 Radiologic exam chest single view Wolf Marin DO Work Phone: Start: 02-13-2024 Ecg routine ecg w/least 12 lds trcg only w/o i&r Wolf Marin DO Work Phone: Start: 02-13-2024 Urinalysis complete W Reflex Culture panel - Urine Wolf Marin DO Work Phone: Start: 02-13-2024 Urnls dip stick/tablet reagent auto microscopy Wolf Marin DO Work Phone: Start: 02-13-2024 Glucose quantitative blood xcpt reagent strip Wolf Marin DO Work Phone: Start: 02-13-2024 Radiologic exam chest single view Wolf Marin DO Work Phone: Start: 02-13-2024 Comprehensive metabolic panel Wolf Marin DO Work Phone: Start: 01-10-2024 Glucose quantitative blood xcpt reagent strip Interface Unspecifiedprovider Work Phone: Start: 12-23-2023 Urinalysis microscopic panel - Urine Qualitative by Automated Freedom Cordon PROSTHETICS LAB TECHNICIAN-PUBLIC SAFETY TELECOMMUNICATOR Work Phone: Start: 12-23-2023 Urnls dip stick/tablet reagent auto microscopy Freedom Cordon PROSTHETICS LAB TECHNICIAN-PUBLIC SAFETY TELECOMMUNICATOR Work Phone: Start: 12-23-2023 Urine test visual color cmprsn meths Freedom Cordon PROSTHETICS LAB TECHNICIAN-PUBLIC SAFETY TELECOMMUNICATOR Work Phone: Start: 12-23-2023 Glucose quantitative blood xcpt reagent strip Wolf Marin DO Work Phone: Start: 12-23-2023 Radiologic exam chest single view Freedom Cordon PROSTHETICS LAB TECHNICIAN-PUBLIC SAFETY TELECOMMUNICATOR Work Phone: Start: 12-23-2023 Influenza virus A and B and SARS-CoV-2 (COVID-19) identified in Respiratory specimen by TAMMY with probe detection Freedom Cordon PROSTHETICS LAB TECHNICIAN-PUBLIC SAFETY TELECOMMUNICATOR Work Phone: Start: 12-23-2023 End: 12-23-2023 Comprehensive metabolic panel Freedom Cordon PROSTHETICS LAB TECHNICIAN-PUBLIC SAFETY TELECOMMUNICATOR Work Phone: Start: 12-23-2023 Ecg routine ecg w/least 12 lds trcg only w/o i&r Freedom Rodriguezelizabeth PROSTHETICS LAB TECHNICIAN-PUBLIC SAFETY TELECOMMUNICATOR Work Phone: Start: 12-07-2023 End: 12-07-2023 Basic metabolic panel calcium total Jadiel Macias MD Work Phone: Start: 12-06-2023 Glucose quantitative blood xcpt reagent strip Jadiel Macias MD Work Phone: Start: 12-06-2023 Glucose quantitative blood xcpt reagent strip Jadiel Macias MD Work Phone: Start: 12-06-2023 Glucose quantitative blood xcpt reagent strip Jadiel Macias MD Work Phone: Start: 12-06-2023 EXTRA URINE WEBER TUBE Ania W Uriarte DO Work Phone: Start: 12-06-2023 Urinalysis complete W Reflex Culture panel - Urine Jadiel Macias MD Work Phone: Start: 12-06-2023 Urnls dip stick/tablet rgnt auto w/o microscopy Ania W Urirate DO Work Phone: Start: 12-06-2023 Radiologic exam abdomen 1 view Liza Jimenez PROSTHETICS LAB TECHNICIAN-PUBLIC SAFETY TELECOMMUNICATOR Work Phone: Start: 12-06-2023 End: 12-06-2023 Renal function panel Liza Jimenez PROSTHETICS LAB TECHNICIAN-PUBLIC SAFETY TELECOMMUNICATOR Work Phone: Start: 12-06-2023 Glucose quantitative blood xcpt reagent strip Jadiel Macias MD Work Phone: Start: 12-06-2023 Radiologic exam abdomen 1 view Ania W Uriarte DO Work Phone: Start: 12-06-2023 Ct abdomen & pelvis w/contrast material Ania Talbot Uriarte DO Work Phone: Start: 12-06-2023 Radiologic exam chest single view Ania Talbot Uriarte DO Work Phone: Start: 12-05-2023 Comprehensive metabolic panel Ania Talbot Uriarte DO Work Phone: Start: 12-05-2023 Influenza virus A and B RNA [Identifier] in Unspecified specimen by TAMMY with probe detection Ania Talbot Uriarte DO Work Phone: Start: 12-05-2023 SARS-CoV-2 (COVID-19) RNA [Presence] in Respiratory specimen by TAMMY with probe detection Ania Talbot Uriarte DO Work Phone: Start: 11-07-2023 Plain chest X-ray Start: 07-12-2023 Echocardiography Generic Provider Sca nning Start: 07-11-2023 EXTRA URINE WEBER TUBE Elidia Hamilton DO Work Phone: Start: 07-11-2023 Urinalysis complete W Reflex Culture panel - Urine Elidia Hamilton DO Work Phone: Start: 07-11-2023 Urinalysis microscopic panel - Urine Qualitative by Automated Elidia Hamilton DO Work Phone: Start: 07-11-2023 Urnls dip stick/tablet reagent auto microscopy Elidia Hamilton DO Work Phone: Start: 07-11-2023 Comprehensive metabolic panel Elidia Hamilton DO Work Phone: Start: 05-30-2023 Gluc bld gluc mntr dev cleared fda spec home use Nilda Lauren MD Work Phone: Start: 05-30-2023 Hemoglobin A1c/Hemoglobin.total in Blood Nilda Lauren MD Work Phone: Start: 12-26-2022 CT of head without contrast YURIDIA SHI Work Phone: Start: 09-27-2022 Gluc bld gluc mntr dev cleared fda spec home use Sharon Foster MD Work Phone: Start: 09-25-2022 End: 09-25-2022 EKG impression Chidi Dunbar Start: 09-24-2022 End: 09-24-2022 EKG impression Elidia Sonia LucasHamilton Start: 07-07-2022 End: 07-07-2022 EKG impression Dimitry Hernandez Start: 02-16-2021 Adult depression screening assessment Jeanette Miller APRN.PUBLIC SAFETY TELECOMMUNICATOR Work Phone: Start: 01-06-2021 Radex shoulder complete minimum 2 views Nahomi Patrice ENNIS.PUBLIC SAFETY TELECOMMUNICATOR Work Phone: Start: 02-11-2020 Follow-up visit Start: 10-31-2012 End: 07-18-2013 H/O: section History of Jeanette Miller APRN.PUBLIC SAFETY TELECOMMUNICATOR Work Phone: section JONI SUHA FIELD DO Cholecystectomy Aasef Marr Cholecystectomy JONI REICHF IELD DO Herniated structure (morphologic abnormality) JONI REICHFIELD DO Ligation of fallopia n tube JONI REICHFIELD DO Plan of Treatment Date Care Activity Detail Author Start: 2035 Zoster Vaccines (1 of 2) Zoster Vaccines (1 of 2) [facility] Start: 05-09-2034 DTaP/Tdap/Td Vaccines (4 - Td or Tdap) DTaP/Tdap/Td Vaccines (4 - Td or Tdap) [facility] Start: 05-09-2034 Urine microalbumin profile DTaP,Tdap,Td Vaccine (4 - Td or Tdap) [facility] Start: 10-13-2029 DTaP/Tdap/Td Vaccines (3 - Td or Tdap) DTaP/Tdap/Td Vaccines (3 - Td or Tdap) [facility] Start: 10-13-2029 Urine microalbumin profile [facility] Start: 12-15-2025 Hepatitis B screening Urine Albumin:Creatinine Ratio [facility] Start: 12-15-2025 Hepatitis B surface antibody level LDL Cholesterol [facility] Start: 12-15-2025 Lipid panel Lipid Panel [facility] Start: 06-17-2025 Hemoglobin A1c measurement HbA1C [facility] Start: 06-08-2025 Influenza vaccination [facility] Start: 06-04-2025 End: 06-04-2025 Patient encounter procedure 06/04/2025 4:00 PM EDT Office Visit [facility] [address] [place] [address] Petros Cespedes, PROSTHETICS LAB TECHNICIAN-PUBLIC SAFETY TELECOMMUNICATOR [address] [place] [address] [facility] Start: 05-26-2025 End: 05-26-2025 Patient encounter procedure 05/26/2025 5:00 PM EDT Appointment [address] [phone] [facility] Start: 05-20-2025 Patient discharge [facility] Start: 05-13-2025 End: 05-13-2025 Patient encounter procedure 05/13/2025 1:15 PM EDT Office Visit Endocrinology [address] [place] [address] Fariba Monson, PROSTHETICS LAB TECHNICIAN.PUBLIC SAFETY TELECOMMUNICATOR [address] [place] [address] Poorly control type 2 diabetes mellitus (HCC) [E11.65] Endocrinology Comment on above: Poorly control type 2 diabetes mellitus (HCC) [E11.65] Start: 05-09-2025 BP Controlled (<130/80) BP Controlled (<130/80) [facility] Start: 05-04-2025 End: 05-04-2025 Patient encounter procedure 05/04/2025 9:45 AM EDT Appointment [address] [phone] [facility] Start: 04-30-2025 End: 04-30-2025 Patient encounter procedure 04/30/2025 2:20 PM EDT Office Visit OB/Gynecology [address] [place] [address] Renee Manuel MD [address] [place] [address] Annual OB/Gynecology Comment on above: Annual Start: 04-23-2025 End: 04-23-2026 CT for calcium scoring WO contrast and CTA W contrast IV Heart and coronary arteries CT cardiac scoring wo IV contrast Imaging Routine Mixed diabetic hyperlipidemia associated with type 2 diabetes mellitus Expected: 04/23/2025, Expires: 04/23/2026 [facility] Work Phone: Comment on above: Expected: 04/23/2025, Expires: Start: 04-23-2025 End: 06-24-2026 DBT Breast - bilateral BI mammo bilateral screening tomosynthesis Imaging Routine Breast cancer screening by mammogram Expected: 04/23/2025, Expires: 06/24/2026 [facility] Service Area Work Phone: Comment on above: Expected: 04/23/2025, Expires: Start: 04-21-2025 End: 04-21-2025 ambulatory 04/21/2025 2:00 PM EDT Procedure OB/Gynecology [address] [place] [address] Remote, Admissions Coordinator [facility] Us [address] [place] [address] US OB/Gynecology Comment on above: US Start: 04-16-2025 End: 04-16-2026 US Pelvis PELVIC US WHI Anc Imaging Routine Ovarian cyst, left Pelvic pain in female Expected: 04/16/2025, Expires: 04/16/2026 [facility] Work Phone: Comment on above: Expected: 04/16/2025, Expires: Start: 04-16-2025 Elastase.pancreatic [Presence] in Stool [facility] Start: 04-16-2025 Protein measurement [facility] Start: 04-13-2025 End: 04-13-2025 Patient encounter procedure 04/13/2025 2:20 PM EDT Office Visit [address] Chaves [address] [phone] Marily Mo PA-C [address] [address] Department of Surgery[place] [address] [facility] Start: 04-09-2025 End: 04-09-2025 Patient encounter procedure 04/09/2025 7:40 AM EDT Office Visit [facility] [address] [facility] [place] [phone] Petros Cespedes, PROSTHETICS LAB TECHNICIAN-PUBLIC SAFETY TELECOMMUNICATOR [address] [facility] [place] [address] [facility] Start: 04-08-2025 Hepatitis B surface antibody level LDL Cholesterol [facility] Start: 04-08-2025 Lipid panel Lipid Panel [facility] Start: 2025 Screening for malignant neoplasm of breast [facility] Start: 2025 End: 2025 ambulatory 2025 8:00 AM EDT [facility] [address] [place] [address] Jeanette Miller, PROSTHETICS LAB TECHNICIAN.PUBLIC SAFETY TELECOMMUNICATOR [address] [place] [address] [facility], Med check Psychiatry Comment on above: [facility] Start: 03-19-2025 End: 12-17-2025 25-hydroxyvitamin D3 [Mass/volume] in Serum or Plasma Vitamin D 25-Hydroxy,Total (for eval of Vitamin D levels) Lab Routine Vitamin D deficiency Expected: 03/19/2025 (Approximate), Expires: 12/17/2025 [facility] Work Phone: Comment on above: Expected: 03/19/2025 (Approximate), Expi res: 12/17/2025 Start: 03-19-2025 End: 12-17-2025 CBC W Auto Differential panel - Blood CBC and Auto Differential Lab Routine Mixed diabetic hyperlipidemia associated with type 2 diabetes mellitus (Multi) Expected: 03/19/2025 (Approximate), Expires: 12/17/2025 [facility] Work Phone: Comment on above: Expected: 03/19/2025 (Approximate), Expi res: 12/17/2025 Start: 03-19-2025 End: 12-17-2025 Cobalamin (Vitamin B12) [Mass/volume] in Serum or Plasma Vitamin B12 Lab Routine Low vitamin B12 level Expected: 03/19/2025 (Approximate), Expires: 12/17/2025 [facility] Work Phone: Comment on above: Expected: 03/19/2025 (Approximate), Expi res: 12/17/2025 Start: 03-19-2025 End: 12-17-2025 Comprehensive metabolic 2000 panel - Serum or Plasma Comprehensive Metabolic Panel Lab Routine Mixed diabetic hyperlipidemia associated with type 2 diabetes mellitus (Multi) Expected: 03/19/2025 (Approximate), Expires: 12/17/2025 [facility] Service Area Work Phone: Comment on above: Expected: 03/19/2025 (Approximate), Expi res: 12/17/2025 Start: 03-19-2025 End: 12-17-2025 Hemoglobin A1c/Hemoglobin.total in Blood Hemoglobin A1C Lab Routine Mixed diabetic hyperlipidemia associated with type 2 diabetes mellitus (Multi) Expected: 03/19/2025 (Approximate), Expires: 12/17/2025 [facility] Work Phone: Comment on above: Expected: 03/19/2025 (Approximate), Expi res: 12/17/2025 Start: 03-19-2025 End: 12-17-2025 Parathyrin.intact [Mass/volume] in Serum or Plasma Parathyroid Hormone, Intact Lab Routine Vitamin D deficiency Expected: 03/19/2025 (Approximate), Expires: 12/17/2025 [facility] Work Phone: Comment on above: Expected: 03/19/2025 (Approximate), Expi res: 12/17/2025 Start: 03-19-2025 End: 03-19-2025 Patient encounter procedure [facility] Comment on above: Mixed diabetic hyperlipidemia associated with type 2 diabetes mellitus; Low vitamin B12 level; Vitamin D deficiency Start: 03-17-2025 Hemoglobin A1c measurement Diabetes: Hemoglobin A1C [facility] Start: 03-03-2025 End: 03-03-2025 Patient encounter procedure 03/03/2025 8:00 AM EDT Appointment [facility] [address] [place] [phone] [facility] Start: 02-24-2025 End: 02-24-2025 Patient encounter procedure 02/24/2025 9:40 AM EDT Office Visit [facility] [address] [place] [phone] Petros Cespedes, PROSTHETICS LAB TECHNICIAN-PUBLIC SAFETY TELECOMMUNICATOR [address] [place], [place] [phone] [facility] Start: 02-16-2025 End: 02-16-2026 Choriogonadotropin ( test) [Presence] in Urine hCG, Urine, Qualitative Lab Routine Abnormal electrocardiogram (ECG) (EKG) Expected: 02/16/2025 (Approximate), Expires: 02/16/2026 [facility] Work Phone: Comment on above: Expected: 02/16/2025 (Approximate), Expi res: 02/16/2026 Start: 02-16-2025 End: 02-16-2026 CTA Heart and Coronary arteries WO and W contrast IV CT angio coronary art with heartflow if score >30% Imaging Routine Atypical chest pain Expected: 02/16/2025, Expires: 02/16/2026 [facility] Work Phone: Comment on above: Expected: 02/16/2025, Expires: Start: 02-16-2025 End: 02-16-2026 US Heart Transthoracic Transthoracic echo (TTE) complete Echocardiography Routine Abnormal electrocardiogram (ECG) (EKG) Atypical chest pain Expected: 02/16/2025, Expires: 02/16/2026 [facility] Area Work Phone: Comment on above: Expected: 02/16/2025, Expires: Start: 02-16-2025 End: 02-16-2025 Patient encounter procedure 02/16/2025 1:45 PM EDT Office Visit [facility] [address] [place] [phone] Clary Smith, PROSTHETICS LAB TECHNICIAN-PUBLIC SAFETY TELECOMMUNICATOR, [facility] [address], [address] [place] [phone] [facility] Start: 01-22-2025 End: 01-22-2025 Patient encounter procedure 01/22/2025 8:20 AM EDT Office Visit [facility] [address] [place] [phone] Petros Cespedes, PROSTHETICS LAB TECHNICIAN-PUBLIC SAFETY TELECOMMUNICATOR [address] [place] [address] [facility] Start: 01-16-2025 End: 01-16-2025 Patient encounter procedure 01/16/2025 9:30 AM EDT Appointment [facility] [address] [place] [address] [facility] Start: 01-14-2025 End: 01-14-2026 Holter monitor study Holter or Event Sociology Research Assistant Cardiac Services Routine Tachycardia Hypertension associated with type 2 diabetes mellitus Expected: 01/14/2025, Expires: 01/14/2026 [facility] Work Phone: Comment on above: Expected: 01/14/2025, Expires: Start: 01-06-2025 End: 01-06-2025 Patient encounter procedure 01/06/2025 7:40 AM EDT Office Visit [facility] [address] [place] [phone] Petros Cespedes, PROSTHETICS LAB TECHNICIAN-PUBLIC SAFETY TELECOMMUNICATOR [address] [place] [address] [facility] Start: 12-10-2024 End: 12-10-2025 Microalbumin/Creatinine [Mass Ratio] in Urine Albumin-Creatinine Ratio, Urine Random Lab Routine Mixed diabetic hyperlipidemia associated with type 2 diabetes mellitus (Multi) Expected: 12/10/2024 (Approximate), Expires: 12/10/2025 [facility] Service Area Work Phone: Comment on above: Expected: 12/10/2024 (Approximate), Expi res: 12/10/2025 Start: 12-05-2024 End: 12-05-2024 ambulatory 12/05/2024 8:30 AM EST [facility] [address] [place] [address] Jeanette Miller, RAYMON.PUBLIC SAFETY TELECOMMUNICATOR [address] [place] [address] [facility] Comment on above: [facility] Start: 11-07-2024 Annual PCP Team Chronic Disease Visit Annual PCP Team Chronic Disease Visit [facility] Start: 11-04-2024 End: 11-04-2024 ambulatory 11/04/2024 3:00 PM EST [facility] [address] [place] [address] Jeanette Miller, PROSTHETICS LAB TECHNICIAN.PUBLIC SAFETY TELECOMMUNICATOR [address] [place] [address] [facility] Comment on above: [facility] Start: 10-29-2024 End: 10-29-2024 ambulatory 10/29/2024 11:00 AM EST [facility] [address] [place] [address] Jeanette Miller, PROSTHETICS LAB TECHNICIAN.PUBLIC SAFETY TELECOMMUNICATOR [address] [place] [address] [facility] Comment on above: [facility] Start: 10-10-2024 End: 04-09-2025 25-hydroxyvitamin D3 [Mass/volume] in Serum or Plasma Vitamin D 25-Hydroxy,Total (for eval of Vitamin D levels) Lab Routine Vitamin D deficiency Expected: 10/10/2024 (Approximate), Expires: 04/09/2025 [facility] Work Phone: Comment on above: Expected: 10/10/2024 (Approximate), Expi res: 04/09/2025 Start: 10-10-2024 End: 04-09-2025 CBC W Auto Differential panel - Blood CBC and Auto Differential Lab Routine Mixed diabetic hyperlipidemia associated with type 2 diabetes mellitus (Multi) Expected: 10/10/2024 (Approximate), Expires: 04/09/2025 [facility] Service Area Work Phone: Comment on above: Expected: 10/10/2024 (Approximate), Expi res: 04/09/2025 Start: 10-10-2024 End: 04-09-2025 Cobalamin (Vitamin B12) [Mass/volume] in Serum or Plasma Vitamin B12 Lab Routine Low serum vitamin B12 Expected: 10/10/2024 (Approximate), Expires: 04/09/2025 [facility] Work Phone: Comment on above: Expected: 10/10/2024 (Approximate), Expi res: 04/09/2025 Start: 10-10-2024 End: 04-09-2025 Comprehensive metabolic 2000 panel - Serum or Plasma Comprehensive Metabolic Panel Lab Routine Mixed diabetic hyperlipidemia associated with type 2 diabetes mellitus (Multi) Expected: 10/10/2024 (Approximate), Expires: 04/09/2025 [facility] Work Phone: Comment on above: Expected: 10/10/2024 (Approximate), Expi res: 04/09/2025 Start: 10-10-2024 End: 04-09-2025 Ferritin [Mass/volume] in Serum or Plasma Ferritin Lab Routine Low iron Expected: 10/10/2024 (Approximate), Expires: 04/09/2025 [facility] Work Phone: Comment on above: Expected: 10/10/2024 (Approximate), Expi res: 04/09/2025 Start: 10-10-2024 End: 04-09-2025 Hemoglobin A1c/Hemoglobin.total in Blood Hemoglobin A1C Lab Routine Mixed diabetic hyperlipidemia associated with type 2 diabetes mellitus (Multi) Expected: 10/10/2024 (Approximate), Expires: 04/09/2025 [facility] Work Phone: Comment on above: Expected: 10/10/2024 (Approximate), Expi res: 04/09/2025 Start: 10-10-2024 End: 04-09-2025 Iron and Iron binding capacity panel - Serum or Plasma Iron and TIBC Lab Routine Low iron Expected: 10/10/2024 (Approximate), Expires: 04/09/2025 [facility] Work Phone: Comment on above: Expected: 10/10/2024 (Approximate), Expi res: 04/09/2025 Start: 10-10-2024 End: 04-09-2025 Lipid 1996 panel - Serum or Plasma Lipid Panel Lab Routine Mixed diabetic hyperlipidemia associated with type 2 diabetes mellitus (Multi) Expected: 10/10/2024 (Approximate), Expires: 04/09/2025 [facility] Work Phone: Comment on above: Expected: 10/10/2024 (Approximate), Expi res: 04/09/2025 Start: 10-10-2024 End: 04-09-2025 Parathyrin.intact [Mass/volume] in Serum or Plasma Parathyroid Hormone, Intact Lab Routine Vitamin D deficiency Expected: 10/10/2024 (Approximate), Expires: 04/09/2025 [facility] Work Phone: Comment on above: Expected: 10/10/2024 (Approximate), Expi res: 04/09/2025 Start: 10-10-2024 End: 04-09-2025 TSH with reflex to Free T4 if abnormal TSH with reflex to Free T4 if abnormal Lab Routine Mixed diabetic hyperlipidemia associated with type 2 diabetes mellitus (Multi) Expected: 10/10/2024 (Approximate), Expires: 04/09/2025 [facility] Work Phone: Comment on above: Expected: 10/10/2024 (Approximate), Expi res: 04/09/2025 Start: 10-10-2024 End: 10-10-2024 Patient encounter procedure 10/10/2024 10:00 AM EST Office Visit [facility] [address] [place] [phone] Petros Cespedes, PROSTHETICS LAB TECHNICIAN-PUBLIC SAFETY TELECOMMUNICATOR [address] [facility] [place] [address] [facility] Start: 10-09-2024 Hemoglobin A1c measurement HbA1C [facility] [place] Start: 09-23-2024 End: 09-23-2024 ambulatory 09/23/2024 8:30 AM EST [facility] [address] [place] [address] Jeanette Miller, PROSTHETICS LAB TECHNICIAN.PUBLIC SAFETY TELECOMMUNICATOR [address] [place] [address] [facility] Psychiatry Comment on above: [facility] Start: 09-09-2024 End: 09-09-2024 Patient encounter procedure 09/09/2024 11:30 AM EST Office Visit [facility] [address] [facility] [address] [place] [phone] Elvis Randolph MD [address] [facility] [place] [facility] [address] [place] [id number] [facility] Start: 08-26-2024 End: 08-26-2024 ambulatory 08/26/2024 8:00 AM EST Treatment [facility] [address] [place] [phone] Ankur Hill, PT [address] [facility] [place] [address] [facility] Start: 08-21-2024 End: 08-21-2024 ambulatory 08/21/2024 3:30 PM EST Treatment [address] [address] Lyndsey Jurado, HOME THEATRE TECHNICIAN [address] [facility] [place] [address] [facility] Start: 08-21-2024 End: 08-21-2024 Patient encounter procedure 08/21/2024 2:15 PM EST Office Visit [facility] [address] [place] [phone] Elvis Randolph MD [address] [place] [address] [facility] Start: 08-21-2024 End: 08-21-2024 ambulatory 08/21/2024 8:30 AM EST Treatment [address] [address] Agustina Merritt, HOME THEATRE TECHNICIAN [address] [facility] [place] [phone] [facility] Start: 08-18-2024 End: 08-18-2024 ambulatory 08/18/2024 10:00 AM EST Treatment [address] [address] Bulmaro De Leon, HOME THEATRE TECHNICIAN [address] [facility] [place] [phone] [facility] Start: 08-15-2024 End: 08-15-2024 ambulatory 08/15/2024 9:15 AM EST Treatment [address] [address] Grecia Honeycutt, HOME THEATRE TECHNICIAN [address] [facility] [place] [phone] [facility] Start: 08-11-2024 End: 08-11-2024 ambulatory 08/11/2024 9:15 AM EST Treatment [place] [address] [place] [address] Agustina Merritt, HOME THEATRE TECHNICIAN [address] [facility] [place] [phone] [facility] Start: 08-08-2024 End: 08-08-2024 ambulatory 08/08/2024 10:00 AM EDT Treatment [address] [address] Grecia Honeycutt, HOME THEATRE TECHNICIAN [address] [facility] [place] [address] [facility] Start: 08-07-2024 End: 08-07-2024 Patient encounter procedure 08/07/2024 3:30 PM EDT Office Visit [facility] [address] [place] [address] Elvis Randolph MD [address] [place] [address] [facility] Start: 07-28-2024 End: 07-28-2024 Telemedicine consultation with patient 07/28/2024 10:00 AM EDT Telemedicine [facility] [address] [facility] 13th [place] [phone] Viki Blue, PROSTHETICS LAB TECHNICIAN-PUBLIC SAFETY TELECOMMUNICATOR [address] [facility] [place] [address] [facility] Start: 07-25-2024 End: 07-25-2024 Patient encounter procedure [facility] Start: 07-15-2024 End: 07-15-2024 Patient encounter procedure 07/15/2024 4:15 PM EDT Office Visit [facility] [address] [place] [address] Augusta Chávez, PROSTHETICS LAB TECHNICIAN-PUBLIC SAFETY TELECOMMUNICATOR [address] [facility], [address] [place] [address] [facility] Start: 07-15-2024 End: 07-15-2024 Telemedicine consultation with patient 07/15/2024 9:00 AM EDT Telemedicine [facility] [address] [facility] [place] [phone] Petros Cespedes, PROSTHETICS LAB TECHNICIAN-PUBLIC SAFETY TELECOMMUNICATOR [address] [facility] [place] [address] [facility] Start: 07-09-2024 Hemoglobin A1c measurement Diabetes: Hemoglobin A1C [facility] Start: 06-23-2024 End: 06-23-2024 Clinical Support 06/23/2024 9:00 AM EDT Clinical Support [facility] [address] [address] [facility] Start: 06-19-2024 End: 06-19-2024 Clinical Support 06/19/2024 9:00 AM EDT Clinical Support [facility] [address] [place] [phone] [facility] Start: 06-18-2024 End: 06-18-2024 Clinical Support 06/18/2024 9:00 AM EDT Clinical Support [facility] [address] [place] [address] [facility] Start: 06-13-2024 End: 06-13-2024 ambulatory 06/13/2024 9:30 AM EDT [facility] [address] [place] [address] Jeanette Miller APRN.PUBLIC SAFETY TELECOMMUNICATOR [address] [place] [address] [facility], med check Psychiatry Comment on above: [facility] med check Start: 06-08-2024 COVID-19 Vaccine () COVID-19 Vaccine () [facility] Start: 06-08-2024 Covid-19 Vaccine () Covid-19 Vaccine () [facility] Start: 06-08-2024 Influenza vaccination [facility] Start: 06-05-2024 End: 06-05-2024 Clinical Support 06/05/2024 9:00 AM EDT Clinical Support [facility] [address] [place] [address] [facility] Start: 06-04-2024 End: 06-04-2024 Clinical Support 06/04/2024 9:00 AM EDT Clinical Support [facility] [address] [place] [address] [facility] Start: 06-03-2024 End: 06-03-2024 Clinical Support 06/03/2024 9:00 AM EDT Clinical Support [facility] [address] [place] [address] [facility] Start: 06-02-2024 End: 06-02-2024 Clinical Support 06/02/2024 9:00 AM EDT Clinical Support [facility] [address] [place] [address] [facility] Start: 05-29-2024 End: 05-29-2024 Clinical Support [facility] Start: 05-28-2024 End: 05-28-2024 Clinical Support 05/28/2024 9:00 AM EDT Clinical Support [facility] [address] [place] [address] [facility] Start: 05-27-2024 End: 05-27-2024 Clinical Support 05/27/2024 9:00 AM EDT Clinical Support [facility] [address] [place] [address] [facility] Start: 05-26-2024 End: 05-26-2024 Clinical Support 05/26/2024 9:00 AM EDT Clinical Support [facility] [address] [place] [address] [facility] Start: 05-07-2024 End: 05-07-2024 Patient encounter procedure 05/07/2024 9:30 AM EDT Office Visit [facility] [address] [place] [phone] Clary Smith APRN-CNP, [place]ERN[place] [address] [facility], [place] [phone] [facility] Start: 04-23-2024 End: 04-23-2024 Patient encounter procedure 04/23/2024 8:00 AM EDT Office Visit [facility] [address] [place] [phone] Clary Smith APRN-CNP, [place]ERN[place]N [address] [facility], [address] [address] [facility] Start: 04-17-2024 End: 04-17-2024 Patient encounter procedure 04/17/2024 8:30 AM EDT Office Visit [facility] [address] [place] [address] Kaylan Vance, OD [address] [place] [address] [facility] Comment on above: [facility] ([facility]) Start: 04-11-2024 End: 04-11-2024 ambulatory 04/11/2024 9:30 AM EDT [facility] [address] [place] [address] Jeanette Miller, PROSTHETICS LAB TECHNICIAN.PUBLIC SAFETY TELECOMMUNICATOR [address] [place] [address] [facility] Psych[facility]ry Comment on above: [facility] Start: 03-14-2024 End: 03-14-2024 ambulatory 03/14/2024 9:00 AM EDT [facility] [address] [place] [address] Jeanette Miller, PROSTHETICS LAB TECHNICIAN.PUBLIC SAFETY TELECOMMUNICATOR [address] [place] [address] [facility] Psych[facility]ry Comment on above: [facility] Start: 02-20-2024 End: 02-20-2024 Patient encounter procedure 02/20/2024 2:20 PM EDT Office Visit [facility] [address] [place] [address] Petros Cespedes, PROSTHETICS LAB TECHNICIAN-PUBLIC SAFETY TELECOMMUNICATOR [address] [place] [address] [facility] Start: 02-17-2024 3 comp foot exam completed DIABETIC FOOT EXAM [facility] Start: 02-17-2024 ANNUAL PCP TEAM CHRONIC DISEASE VISIT ANNUAL PCP TEAM CHRONIC DISEASE VISIT [facility] Start: 02-17-2024 COVID-19 VACCINE (#1) COVID-19 VACCINE (#1) [facility] Comment on above: Postponed from 1985 (Declined at t his time) Start: 02-17-2024 Diabetic foot examination Diabetic Foot Exam [facility] Start: 02-17-2024 Hepatitis B screening URINE ALBUMIN:CREATININE RATIO [facility] Start: 02-17-2024 Hepatitis B surface antibody level LDL CHOLESTEROL [facility] Start: 02-17-2024 Urine screening for protein Diabetes: Urine Protein Screening [facility] Start: 02-01-2024 End: 02-01-2024 Patient encounter procedure 02/01/2024 1:20 PM EDT Office Visit [facility] [place] [address] [place], [place] [address] Brayden Kumar APRN.PUBLIC SAFETY TELECOMMUNICATOR [address] [place], [place] [id number] routine follow up [facility] Comment on above: routine follow up Start: 11-30-2023 Hemoglobin A1c measurement HbA1C [facility] Start: 11-30-2023 Hemoglobin A1c/Hemoglobin.total in Blood HBA1C [facility] Start: 11-07-2023 [facility] Start: 11-07-2023 [facility] Start: 10-20-2023 BP CONTROLLED (<130/80) BP CONTROLLED (<130/80) [facility] Start: 10-08-2023 Depression Assessment Depression Assessment [facility] Start: 09-27-2023 ANNUAL PCP TEAM CHRONIC DISEASE VISIT ANNUAL PCP TEAM CHRONIC DISEASE VISIT [facility] Start: 08-30-2023 Hemoglobin A1c measurement Diabetes: Hemoglobin A1C [facility] Start: 08-23-2023 BP CONTROLLED (<130/80) BP CONTROLLED (<130/80) [facility] Start: 08-19-2023 Hemoglobin A1c/Hemoglobin.total in Blood HBA1C [facility] Start: 07-04-2023 ANNUAL PCP TEAM CHRONIC DISEASE VISIT ANNUAL PCP TEAM CHRONIC DISEASE VISIT [facility] Start: 06-08-2023 Covid-19 Vaccine ( season) Covid-19 Vaccine () [facility] Start: 06-08-2023 Influenza vaccination [facility] Start: 05-30-2023 End: 07-30-2023 Thyrotropin [Units/volume] in Serum or Plasma TSH BLD Lab Routine Poorly controlled type 2 diabetes mellitus (HCC) Expected: 05/30/2023, Expires: 07/30/2023 [facility] Work Phone: Comment on above: Expected: 05/30/2023, Expires: 3 Start: 05-30-2023 End: 07-30-2023 Thyroxine (T4) free [Mass/volume] in Serum or Plasma T4 FREE/FREE THYROX Lab Routine Poorly controlled type 2 diabetes mellitus (HCC) Expected: 05/30/2023, Expires: 07/30/2023 [facility] Work Phone: Comment on above: Expected: 05/30/2023, Expires: 3 Start: 02-17-2023 Hemoglobin A1c/Hemoglobin.total in Blood HBA1C [facility] Start: 02-16-2023 End: 04-18-2023 Microscopic observation [Identifier] in Vaginal fluid by Gram stain [facility] Work Phone: Comment on above: Expected: 02/16/2023, Expires: 3 Start: 10-08-2022 DEPRESSION ASSESSMENT DEPRESSION ASSESSMENT [facility] Start: 09-24-2022 End: 09-25-2023 Sodium Chloride 0.9% Infusion . ; IV Bag Volume = 1,000 mL Run at: 150 mL/hr IntraVenous Start: 24-Sep-2022 End: 24-Sep-2023 Ordered: 24-Sep-2022 Elidia Hamilton [facility] Start: 08-16-2022 3 comp foot exam completed DIABETIC FOOT EXAM [facility] [place] Start: 08-13-2022 Hepatitis B surface antibody level LDL CHOLESTEROL [facility] Start: 08-08-2022 ANNUAL PCP TEAM CHRONIC DISEASE VISIT ANNUAL PCP TEAM CHRONIC DISEASE VISIT [facility] Start: 06-08-2022 Influenza vaccination [facility] Start: 05-18-2022 Hemoglobin A1c/Hemoglobin.total in Blood HBA1C [facility] Start: 02-20-2022 End: 04-22-2022 ALBUMIN/CREAT RATIO RND UR ALBUMIN/CREAT RATIO RND UR Lab Routine Type 2 diabetes mellitus with hyperglycaemia (HCC) Expected: 02/20/2022, Expires: 04/22/2022 [facility] Work Phone: Comment on above: Expected: 02/20/2022, Expires: 2 Start: 02-20-2022 End: 04-22-2022 Comprehensive metabolic 2000 panel - Serum or Plasma COMP METABOLIC PANEL Lab Routine Type 2 diabetes mellitus with hyperglycaemia (HCC) Expected: 02/20/2022, Expires: 04/22/2022 [facility] Work Phone: Comment on above: Expected: 02/20/2022, Expires: 2 Start: 02-20-2022 End: 04-22-2022 LIPID PANEL, NONFASTING LIPID PANEL, NONFASTING Lab Routine Type 2 diabetes mellitus with hyperglycaemia (HCC) Expected: 02/20/2022, Expires: 04/22/2022 [facility] Work Phone: Comment on above: Expected: 02/20/2022, Expires: 2 Start: 02-16-2022 Adult depression screening assessment DEPRESSION SCREENING [facility] Start: 11-02-2021 Hepatitis B screening URINE ALBUMIN:CREATININE RATIO [facility] Start: 10-08-2021 DEPRESSION ASSESSMENT DEPRESSION ASSESSMENT [facility] Start: 05-31-2021 Glaucoma screening Dilated Retinal Exam [facility] Start: 05-31-2021 Hepatitis C antibody, confirmatory test DILATED RETINAL EXAM [facility] Start: 11-01-2020 HPV TESTING HPV TESTING [facility] Start: 11-01-2020 PAP TESTING PAP TESTING [facility] Start: 11-01-2020 Screening for malignant neoplasm of cervix [facility] Start: 05-09-2020 HEPATITIS B (3 of 3 - 19+ 3-dose series) HEPATITIS B (3 of 3 - 19+ 3-dose series) [facility] Start: 05-06-2020 HEPATITIS B (3 of 3 - 19+ 3-dose series) HEPATITIS B (3 of 3 - 19+ 3-dose series) [facility] Start: 05-06-2020 Hepatitis B Vaccine (3 of 3 - 19+ 3-dose series) Hepatitis B Vaccine (3 of 3 - 19+ 3-dose series) [facility] Start: 05-06-2020 Hepatitis B Vaccines (3 of 3 - 19+ 3-dose series) Hepatitis B Vaccines (3 of 3 - 19+ 3-dose series) [facility] Start: 04-08-2020 HEPATITIS B (3 of 3 - Risk 3-dose series) HEPATITIS B (3 of 3 - Risk 3-dose series) [facility] Start: 02-26-2020 HEPATITIS B (3 of 3 - 3-dose series) HEPATITIS B (3 of 3 - 3-dose series) [facility] Start: 12-15-2019 Varicella vaccination [facility] Start: 2012 HPV Vaccines (1 - 3-dose standard series) HPV Vaccines (1 - 3-dose standard series) [facility] Start: 2006 Screening for malignant neoplasm of cervix [facility] Start: 2004 Hepatitis A Vaccines (1 of 2 - Risk 2-dose series) Hepatitis A Vaccines (1 of 2 - Risk 2-dose series) [facility] Start: 2004 Pneumococcal vaccination Pneumococcal Vaccine (1 of 2 - PCV) [facility] Start: 2004 Pneumococcal Vaccine: Pediatrics and At-Risk Adult Patients (1 of 2 - PCV) Pneumococcal Vaccine: Pediatrics and At-Risk Adult Patients (1 of 2 - PCV) [facility] Start: 2004 Urine screening for protein Diabetes: Urine Protein Screening [facility] Start: 2003 BP CONTROLLED (<130/80) BP CONTROLLED (<130/80) [facility] Start: 2003 Depression Screening Depression Screening [facility] Start: 2003 Hepatitis C screening Hepatitis C Screening [facility] Start: 2001 ONE PNEUMOVAX PRIOR TO AGE 65 ONE PNEUMOVAX PRIOR TO AGE 65 [facility] Start: 1995 Diabetic foot examination Diabetes: Foot Ex[facility] Start: 1995 Glaucoma screening Diabetes: Retinopathy Screening [facility] Start: 1991 PNEUMOCOCCAL (1 - PCV) PNEUMOCOCCAL (1 - PCV) [facility] Start: 1991 Pneumococcal vaccination [facility] Start: 1991 Pneumococcal Vaccine: Pediatrics (0 to 5 Years) and At-Risk Patients (6 to 64 Years) (1 - PCV) Pneumococcal Vaccine: Pediatrics (0 to 5 Years) and At-Risk Patients (6 to 64 Years) (1 - PCV) [facility] Start: 1991 Pneumococcal Vaccine: Pediatrics (0 to 5 Years) and At-Risk Patients (6 to 64 Years) (1 of 2 - PCV) Pneumococcal Vaccine: Pediatrics (0 to 5 Years) and At-Risk Patients (6 to 64 Years) (1 of 2 - PCV) [facility] Start: 1990 COVID-19 VACCINE (#1) COVID-19 VACCINE (#1) [facility] Start: 1990 COVID-19 VACCINE (1) COVID-19 VACCINE (1) [facility] Start: 1985 COVID-19 VACCINE (#1) COVID-19 VACCINE (#1) [facility] Start: 1985 HIV screening HIV Screening [facility] Start: 1985 Lipid panel Lipid Panel [facility] Start: 1985 Yearly Adult Physical Yearly Adult Physical [facility] End: 07-11-2023 Bacteria identified in Urine by Culture [facility] Work Phone: Comment on above: Once (Lab) for 1 Occurrences starting until 07/11/2023 End: 12-23-2023 Bacteria identified in Urine by Culture [facility] Work Phone: Comment on above: Once (Lab) for 1 Occurrences starting until 12/23/2023 C reactive protein [Mass/volume] in Serum or Plasma [facility] Cardiac event recording [facility] Cardiovascular funct ion eval w/tilt table w/mntr TILT TABLE EVALUATION Cardiology Routine Syncope and collapse Ordered: 10/20/2022 [facility] Work Phone: Comment on above: Ordered: 10/20/2022 Clostridioides diffi cile DNA [Presence] in Unspecified specimen by TAMMY with probe detection [facility] End: 07-11-2023 ECG 12 lead ECG 12 lead ECG STAT Once for 1 Occurrences starting 07/11/2023 until 07/11/2023 [facility] Service Area Work Phone: Comment on above: Once for 1 Occurrences starting 07/11/20 until 07/11/2023 End: 12-23-2023 ECG 12 lead [facility] Work Phone: Comment on above: Once for 1 Occurrences starting 12/23/19 24 until 12/23/2023 ECG 12 lead ECG 12 lead ECG STAT 02/13/2024 5:51 PM T [facility] Work Phone: ECG 12 lead ECG 12 lead ECG STAT As needed until discontinued starting 07/09/2024 [facility] Area Work Phone: Comment on above: As needed until discontinued starting ECG 12 lead [facility] Service [facility] Work Phone: Comment on above: As needed until discontinued starting End: 04-19-2024 ECG 12 Lead ECG 12 Lead ECG STAT Once for 1 Occurrences starting 04/19/2024 until 04/19/2024 [facility] Work Phone: Comment on above: Once for 1 Occurrences starting 04/19/20 24 until 04/19/2024 ECG 12 lead ECG 12 lead ECG STAT 11/26/2024 6:01 PM [facility] Work Phone: ECG 12 lead ECG 12 lead ECG STAT 12/31/2024 3:38 PM [facility] Work Phone: End: 02-05-2025 ECG 12 lead ECG 12 lead ECG STAT Once for 1 Occurrences starting 02/05/2025 until 02/05/2025 [facility] Work Phone: Comment on above: Once for 1 Occurrences starting 02/06/20 until 02/05/2025 Elastase.pancreatic [Presence] in [facility] Electrocardiogram, 1 2-lead PRN ACS symptoms Electrocardiogram, 12-lead PRN ACS symptoms ECG Routine As needed until discontinued starting 12/06/2023 [facility] Work Phone: Comment on above: As needed until discontinued starting End: 07-11-2023 Extra Urine [facility] Work Phone: Comment on above: Once for 1 Occurrences starting 07/11/20 until 07/11/2023, 1 completed End: 12-23-2023 Extra Urine [facility] Extra Urine [facility] Lab Timed Once for 1 Occurrences starting 12/23/2023 until 12/23/2023 [facility] Work Phone: Comment on above: Once for 1 Occurrences starting 12/23/19 until 12/23/2023 End: 02-13-2024 Extra Urine Weber Tube [facility] Work Phone: Comment on above: Once for 1 Occurrences starting 02/13/20 until 02/13/2024 End: 10-29-2024 Extra Urine Weber Tube [facility] Work Phone: Comment on above: Once for 1 Occurrences starting 10/29/19 until 10/29/2024 End: 11-26-2024 Extra Urine Weber Tube Extra Urine [facility] Lab Timed Once for 1 Occurrences starting 11/26/2024 until 11/26/2024 [facility] Work Phone: Comment on above: Once for 1 Occurrences starting 11/26/19 until 11/26/2024 End: 12-31-2024 Extra Urine Weber Tube Extra Urine [facility] Lab Timed Once for 1 Occurrences starting 12/31/2024 until 12/31/2024 [facility] Work Phone: Comment on above: Once for 1 Occurrences starting 01/01/20 until 12/31/2024 End: 01-27-2025 Extra Urine Weber Tube Extra Urine [facility] Timed Once for 1 Occurrences starting 01/27/2025 until 01/27/2025 [facility] Work Phone: Comment on above: Once for 1 Occurrences starting 01/28/20 until 01/27/2025 Extra Urine Weber Tube Extra Urin e [facility] Lab STAT 01/27/2025 2:11 AM EDT [facility] Work Phone: End: 04-10-2025 Extra Urine Weber Tube Extra Urine [facility] Lab Timed Once for 1 Occurrences starting 04/10/2025 until 04/10/2025 [facility] Work Phone: Comment on above: Once for 1 Occurrences starting 04/10/20 until 04/10/2025 Glucose [Mass/volume ] in Serum or Plasma GLUCOSE, BLOOD (POC) Lab Routine Type 2 diabetes mellitus with other specified complication, with long-term current use of insulin (HCC) Ordered: 09/27/2022 [facility] Work Phone: Comment on above: Ordered: 09/27/2022 Glucose [Mass/volume ] in Serum or Plasma [facility] Work Phone: Comment on above: TID until discontinued starting 12/06/19 As needed (Lab) unti l discontinued starting 12/06/2023 End: 01-10-2024 Glucose [Mass/volume] in Serum or Plasma POCT fingerstick glucose manually resulted Point of Care Testing Routine Once (Lab) for 1 Occurrences starting 01/10/2024 until 01/10/2024 [facility] Service Area Work Phone: Comment on above: Once (Lab) for 1 Occurrences starting until 01/10/2024 End: 01-16-2025 Holter monitor study [facility] Work Phone: Comment on above: Once for 1 Occurrences starting 01/17/20 until 01/16/2025 End: 03-08-2024 ARMANDO DIAGNOSTIC BILATERAL ARMANDO DIAGNOSTIC BILATERAL Radiology Routine Nipple discharge Mass of right breast, unspecified quadrant 1 Occurrences starting 02/07/2023 until 03/08/2024 [facility] Work Phone: Comment on above: 1 Occurrences starting 02/07/2023 until 03/08/2024 Nucleic acid assay [facility] Patient Education [facility] Work Phone: Patient referral [facility] Work Phone: Protein measurement [facility] Radionuclide gastric emptying study [facility] End: 07-11-2023 Urinalysis complete W Reflex Culture panel - Urine [facility] Work Phone: Comment on above: Once (Lab) for 1 Occurrences starting until 07/11/2023 End: 12-23-2023 Urinalysis complete W Reflex Culture panel - Urine [facility] Service Area Work Phone: Comment on above: Once (Lab) for 1 Occurrences starting until 12/23/2023 End: 02-13-2024 Urinalysis complete W Reflex Culture panel - Urine [facility] Service Area Work Phone: Comment on above: Once (Lab) for 1 Occurrences starting until 02/13/2024 End: 10-29-2024 Urinalysis complete W Reflex Culture panel - Urine [facility] Service Area Work Phone: Comment on above: STAT (Lab) for 1 Occurrences starting until 10/29/2024 End: 11-26-2024 Urinalysis complete W Reflex Culture panel - Urine [facility] Service Area Work Phone: Comment on above: Once (Lab) for 1 Occurrences starting until 11/26/2024 Once for 1 Occurrenc es starting 11/26/2024 until 11/26/2024 End: 12-31-2024 Urinalysis complete W Reflex Culture panel - Urine [facility] Service Area Work Phone: Comment on above: Once (Lab) for 1 Occurrences starting until 12/31/2024 Once for 1 Occurrenc es starting 12/31/2024 until 12/31/2024 End: 01-27-2025 Urinalysis complete W Reflex Culture panel - Urine Urinalysis with Reflex Culture and Microscopic Lab STAT Once (Lab) for 1 Occurrences starting 01/27/2025 until 01/27/2025 [facility] Service Area Work Phone: Comment on above: Once (Lab) for 1 Occurrences starting until 01/27/2025 Urinalysis complete W Reflex Culture panel - Urine Urinalysis with Reflex Culture and Microscopic Lab STAT 01/27/2025 2:11 AM [facility] Work Phone: End: 04-10-2025 Urinalysis complete W Reflex Culture panel - Urine [facility] Service Area Work Phone: Comment on above: Once (Lab) for 1 Occurrences starting until 04/10/2025 End: 03-08-2024 US BREAST LTD RIGHT US BREAST LTD RIGHT Radiology Routine Nipple discharge Mass of right breast, unspecified quadrant 1 Occurrences starting 02/07/2023 until 03/08/2024 [facility] Work Phone: Comment on above: 1 Occurrences starting 02/07/2023 until 03/08/2024 [facility] End: 03-12-2025 US Heart Transthoracic [facility] Service Area Work Phone: Comment on above: Once for 1 Occurrences starting 03/12/20 until 03/12/2025 [facility] Immunizations Immunization Date Immunization Notes Care Provider Cherelle gomez 05-09-2024 tetanus toxoid, reduced diphtheria toxoid, and acellular pertussis vaccine, adsorbed Viki Blue PROSTHETICS LAB TECHNICIAN-PUBLIC SAFETY TELECOMMUNICATOR Work Phone: [facility] Work Phone: 12-08-2019 hepatitis B vaccine, adult dosage Jeanette Miller PROSTHETICS LAB TECHNICIAN.PUBLIC SAFETY TELECOMMUNICATOR Work Phone: [facility] 12-08-2019 hepatitis B vaccine, unspecified formulation Sharon Foster MD Work Phone: [facility] 11-17-2019 measles, mumps and rubella virus vaccine Jeanette Angela PROSTHETICS LAB TECHNICIAN.PUBLIC SAFETY TELECOMMUNICATOR Work Phone: [facility] 11-06-2019 hepatitis B vaccine, adult dosage Jeanette Angela PROSTHETICS LAB TECHNICIAN.PUBLIC SAFETY TELECOMMUNICATOR Work Phone: [facility] 10-13-2019 tetanus toxoid, reduced diphtheria toxoid, and acellular pertussis vaccine, adsorbed Jeanette Angela PROSTHETICS LAB TECHNICIAN.PUBLIC SAFETY TELECOMMUNICATOR Work Phone: [facility] 07-03-2019 influenza, injectabl e, quadrivalent, contains preservative Jeanette Angela PROSTHETICS LAB TECHNICIAN.PUBLIC SAFETY TELECOMMUNICATOR Work Phone: [facility] 07-03-2019 influenza virus vaccine, unspecified formulation Elidia Hamilton DO Work Phone: [facility] Work Phone: 10-07-2018 influenza, injectabl e, quadrivalent, contains preservative Jeanette Angela PROSTHETICS LAB TECHNICIAN.PUBLIC SAFETY TELECOMMUNICATOR Work Phone: [facility] 10-07-2018 influenza, injectabl e, quadrivalent, preservative free; Translations: [Fluarix Quadrivalent ] JONI LARSON DO [facility] 07-08-2013 influenza virus vaccine, unspecified formulation Jeanette Angela PROSTHETICS LAB TECHNICIAN.PUBLIC SAFETY TELECOMMUNICATOR Work Phone: [facility] 06-08-2013 measles, mumps and rubella virus vaccine Jeanette Angela PROSTHETICS LAB TECHNICIAN.PUBLIC SAFETY TELECOMMUNICATOR Work Phone: [facility] 03-29-2013 tetanus toxoid, reduced diphtheria toxoid, and acellular pertussis vaccine, adsorbed Jeanette Angela PROSTHETICS LAB TECHNICIAN.PUBLIC SAFETY TELECOMMUNICATOR Work Phone: [facility] Work Phone: 08-26-2009 influenza virus vaccine, unspecified formulation Jeanette Angela PROSTHETICS LAB TECHNICIAN.PUBLIC SAFETY TELECOMMUNICATOR Work Phone: [facility] 09-12-2007 influenza virus vaccine, unspecified formulation Jeanette Miller APRN.PUBLIC SAFETY TELECOMMUNICATOR Work Phone: [facility] 02-14-2006 Meningococcal, MCV4, unspecified conjugate formulation(groups A, C, Y and W-135) Jeanette Miller APRN.PUBLIC SAFETY TELECOMMUNICATOR Work Phone: [facility] Work Phone: Payers Date Payer Category Payer Private Health Insurance [id number] 05-29-2024 Self-pay [id number] 07-06-2018 Managed Care (Private) [id number] [id number] 07-06-2018 Private Health Insurance RAOUL KEITH OA [id number] 07/06/2018-Present [phone] [address] [place] [address] Open Access [id number] 07-06-2018 Private Health Insurance [id number] 07-06-2018 Private Health Insurance [id number] 07-06-2018 Private Health Insurance [id number] 07-08-2009 Medicare MEDICARE MEDICAR E A AND B [id number] 07/08/2009-Present [phone] [address] [address] [place] [address] Medicare [id number] 07-08-2009 Medicare [id number] .[id number] 07-08-2009 Unknown 07-08-2009 Medicare [id number] 1985 Unknown [id number] 2.16.840.1.685082.3.579.2.1 1985 Unknown [id number] 2.16.840.1.943966.3.579.2.1 1985 Unknown [id number] 2.16.840.1.690469.3.579.2.1 1985 Unknown [id number] 2.16.840.1.086972.3.579.2.1 1985 Unknown [id number] 2.16.840.1.087194.3.579.2.1 [facility] 1985 Unknown [id number] 2.16840.1.666518.3.579.2.1 [facility] 1985 Unknown [id number] 2.16840.1.084529.3.579.2.1 [facility] 1985 Unknown [id number] 2.16840.1.223737.3.579.2.1 [facility] 1985 Unknown [id number] 2.16840.1.389647.3.579.2.1 [facility] 1985 Unknown [id number] 2.16840.1.095614.3.579.2.1 [facility] 1985 Unknown [id number] 2.16840.1.744234.3.579.2.1 Critical [facility] 1985 Unknown [id number] 2.16840.1.944071.3.579.2.1 [facility] access [facility] 1985 Unknown [id number] 2.16840.1.413896.3.579.2.1 Critical access hospital 1985 Unknown [id number] 2.16840.1.403054.3.579.2.1 Critical access hospital 1985 Unknown [id number] 2.16840.1.239133.3.579.2.1 1985 Unknown [id number] 2.16840.1.705604.3.579.2.1 1985 Unknown [id number] 2.16840.1.692330.3.579.2.1 1985 Unknown [id number] 2.840.1.004639.3.579.2.1 1985 Unknown [id number] 2.840.1.667369.3.579.2.1 1985 Unknown [id number] 2.840.1.104471.3.579.2.1 1985 Unknown [id number] 2.840.1.226865.3.579.2.1 1985 Unknown [id number] 2.0.1.071224.3.579.2.1 1985 Unknown [id number] 2.840.1.545394.3.579.2.1 1985 Unknown [id number] 2.840.1.748275.3.579.2.1 1985 Unknown [id number] 2.840.1.776295.3.579.2.1 1985 Unknown [id number] 2.840.1.172936.3.579.2.1 1985 Unknown [id number] 2.840.1.667512.3.579.2.1 1985 Unknown [id number] 2.840.1.456692.3.579.2.1 1985 Unknown [id number] 2.840.1.933127.3.579.2.1 1985 Unknown [id number] 2.840.1.692637.3.579.2.1 1985 Unknown [id number] 2.16.840.1.181977.3.579.2.1 1985 Unknown [id number] 2.16.840.1.507396.3.579.2.1 1985 Unknown [id number] 2.16.840.1.853894.3.579.2.1 1985 Unknown [id number] 2.16840.1.075272.3.579.2.1 1985 Unknown [id number] 2.16840.1.164119.3.579.2.1 1985 Unknown [id number] 2.16840.1.803244.3.579.2.1 1985 Unknown [id number] 2.16840.1.830913.3.579.2.1 1985 Unknown [id number] 2.16840.1.565292.3.579.2.1 1985 Unknown [id number] 2.16840.1.466511.3.579.2.1 1985 Unknown [id number] 2.16840.1.860598.3.579.2.1 1985 Unknown [id number] 2.16840.1.237852.3.579.2.1 1985 Unknown [id number] 2.16840.1.778321.3.579.2.1 1985 Unknown [id number] 2.16840.1.202380.3.579.2.1 1985 Unknown [id number] 2.16840.1.824298.3.579.2.1 1985 Unknown [id number] 2.16840.1.338818.3.579.2.1 1985 Unknown [id number] 2.16840.1.780474.3.579.2.1 1985 Unknown [id number] 2.16840.1.960771.3.579.2.1 1985 Unknown [id number] 2.16840.1.984580.3.579.2.1 1985 Unknown [id number] 2.840.1.334670.3.579.2.1 1985 Unknown [id number] 2.840.1.885814.3.579.2.1 1985 Unknown [id number] 2.0.1.839453.3.579.2.1 1985 Unknown [id number] 2.840.1.318459.3.579.2.1 1985 Unknown [id number] 2.0.1.187554.3.579.2.1 1985 Unknown [id number] 2.0.1.658124.3.579.2.1 1985 Unknown [id number] 20.1.058517.3.579.2.1 1985 Unknown [id number] 2.840.1.549878.3.579.2.1 1985 Unknown [id number] 20.1.055368.3.579.2.1 1985 Unknown [id number] .840.1.493659.3.579.2.1 1985 Unknown [id number] 2.840.1.287152.3.579.2.1 1985 Unknown [id number] 2.840.1.885249.3.579.2.1 1985 Unknown [id number] 2.840.1.043473.3.579.2.1 1985 Unknown [id number] 2.16840.1.260049.3.579.2.1 1985 Unknown [id number] 2.16840.1.041527.3.579.2.1 1985 Unknown [id number] 2.16840.1.072585.3.579.2.1 1985 Unknown [id number] 2.16840.1.457658.3.579.2.1 1985 Unknown [id number] 2.16840.1.158336.3.579.2.1 1985 Unknown [id number] 2.16840.1.751926.3.579.2.1 1985 Unknown [id number] 2.16840.1.231573.3.579.2.1 1985 Unknown [id number] 2.840.1.990231.3.579.2.1 1985 Unknown [id number] 2.840.1.577766.3.579.2.1 1985 Unknown [id number] 2.840.1.475470.3.579.2.1 1985 Unknown [id number] 2.16840.1.799008.3.579.2.1 1985 Unknown [id number] 2.840.1.621730.3.579.2.1 1985 Unknown [id number] 2.16840.1.929934.3.579.2.1 1985 Unknown [id number] 2.16840.1.544154.3.579.2.1 1985 Unknown [id number] 2.16840.1.319232.3.579.2.1 243 Medicaid [id number] Unknown [facility] [id number] Unknown [id number] 2.16.840.1.795658.3.579.2.4 62 Unknown [id number] 2.16.840.1.245500.3.579.2.4 62 Unknown [id number] 2.16.840.1.527222.3.579.2.4 62 Unknown [id number] 2.16.840.1.228181.3.579.2.4 62 Unknown [id number] 2.16.840.1.295484.3.579.2.4 62 Unknown [id number] 2.16.840.1.147095.3.579.2.4 62 Unknown [id number] 2.16.840.1.737259.3.579.2.4 62 Unknown [id number] 2.16.840.1.005349.3.579.2.4 62 Unknown [id number] 2.16.840.1.686260.3.579.2.4 62 Unknown [id number] 2.16.840.1.279233.3.579.2.4 62 Unknown [id number] 2.16.840.1.992954.3.579.2.4 62 Social History Date Type Detail Facility Assertion Tobacco smoking consumption unknown (finding) [facility] Work Phone: Start: 11-03-2019 Tobacco smoking status Never s moked tobacco (finding) [facility] Sex Assigned At Sex [facility] Start: 07-03-2019 End: 05-19-2025 Tobacco smoking status NHIS Ex-smoker [facility] Start: 04-02-2009 End: 04-02-2019 History of tobacco use Current smoker [facility] Start: 04-02-2009 End: 04-02-2019 History of tobacco use Cigarette Smoker [facility] Start: 07-03-2019 End: 02-07-2023 Cigarettes smoked current (pack per day) - Reported 0.5 [facility] Start: 07-03-2019 End: 09-27-2022 Tobacco use and exposure Smokeless tobacco non-user [facility] Start: 12-21-2021 End: 04-16-2025 Alcohol intake Current non-drinker of alcohol (finding) [facility] Start: 02-16-2021 End: 07-04-2022 History SDOH Alcohol Std Drinks 1 [facility] Start: 02-16-2021 End: 07-04-2022 History SDOH Social Connections Phone 5 [facility] Start: 02-16-2021 End: 07-04-2022 History SDOH Social Connections Get Together 2 [facility] Start: 02-16-2021 End: 07-04-2022 History SDOH Social Connections [facility] 3 [facility] Start: 02-16-2021 Education 12 [facility] Start: 1985 Sex Assigned At Not on file [facility] Start: 12-07-2020 End: 03-12-2025 Exposure to SARS-CoV-2 (event) Not sure [facility] Start: 06-03-2022 End: 12-10-2024 Exposure to SARS-CoV-2 (event) Unable to assess [facility] Start: 07-04-2022 History SDOH Alcohol Std Drinks 0 [facility] Start: 07-04-2022 History SDOH Physica l Activity DPW 7 [facility] Start: 07-04-2022 History SDOH Physica l Activity MPS 98 [facility] Start: 11-30-2021 End: 11-07-2023 Tobacco smoking consumption unknown [facility] Start: 02-12-2021 None [facility] Start: 02-12-2021 Homeless [facility] Start: 02-24-2021 Non-smoker [facility] Start: 1985 Sex Assigned At Female [facility] Start: 07-04-2022 End: 02-07-2023 Social connection and isolation panel [facility] Do you belong to any clubs or organizations such as caodaism groups, unions, fraternal or athletic groups, or school groups? Yes [facility] Are you now , , , , never or living with a partner? [facility] How often to you hav e a drink containing alcohol? Never [facility] Start: 09-02-2022 How many standard drinks containing alcohol do you have on a typical day? Patient does not drink [facility] Do you feel stress - tense, restless, nervous, or anxious, or unable to sleep at night because your mind is troubled all the time - these days [OSQ] Very much [facility] (I/We) worried john er (my/our) food would run out before (I/we) got money to buy more. Never true [facility] In the past 12 month s, was there a time when you were not able to pay the mortgage or rent on time? No [facility] How hard is it for y ou to pay for the very basics like food, housing, medical care, and heating Somewhat hard [facility] Work Phone: Start: 02-13-2024 End: 04-23-2025 Alcoholic beverage intake Lifetime non-drinker (finding) [facility] Work Phone: Start: 05-13-2016 Tobacco [facility] NEGATED: Highlighted row [facility] Medical Equipment Procedure Code Equipment Code Equipment Original Text Equipment Identifier Dates [id number] Start: 03-22-2021 End: 01-30-2024 Comment on above: Test blood sugar(s) 3 times daily. Dx: Type 2 DM - Controlled E11.9 Insulin: No Test blood sugar(s) 4 times daily. Dx: Type 2 DM - Uncontrolled E11.65 Insulin: Yes Goals Date Patient Goal Desired Activity /State Functional Status Date Assessment Result Facility 04-23-2025 Patient Health Questionnaire 2 item (PHQ-2) [Reported] [facility] Work Phone: 04-10-2025 [place] - suicide severity rating scale screener - recent [C-SSRS] [facility] Work Phone: 04-01-2025 [place] - suicide severity rating scale screener - recent [C-SSRS] [facility] Work Phone: 02-05-2025 [place] - suicide severity rating scale screener - recent [C-SSRS] [facility] Work Phone: 02-05-2025 Patient Health Questionnaire 2 item (PHQ-2) [Reported] [facility] Work Phone: 01-27-2025 [place] - suicide severity rating scale screener - recent [C-SSRS] [facility] Work Phone: 08-23-2022 Are you deaf, or do you have serious difficulty hearing No 08/23/2022 3:08 PM Abril Adrian RN No [facility] 08-23-2022 Are you blind, or do you have serious difficulty seeing, even when wearing glasses No 08/23/2022 3:08 PM Abril Adrian RN No [facility] 08-23-2022 Do you have serious difficulty walking or climbing stairs No 08/23/2022 3:08 PM Abril Adrian RN No [facility] 08-23-2022 Do you have difficul ty dressing or bathing No 08/23/2022 3:08 PM Abril Adrian RN No [facility] 08-23-2022 Because of a physica l, mental, or emotional condition, do you have difficulty doing errands alone such as visiting a physician's office or shopping Yes 08/23/2022 3:08 PM Abril Adrian RN Yes [facility] 02-05-2022 [facility] Functional Status [facility] NEGATED: Highlighted row Functional performance Functional status health issues are not documented Disease SQ-Ldtmbfepi-Flbhpax n Work Phone: Mental Status Date Assessment Result Facility 05-20-2025 Cognitive function Voice/Name [facility] Work Phone: 11-07-2023 Cognitive function Voice/Name [facility] Work Phone: 12-26-2022 Cognitive function Voice/Name [facility] Work Phone: 08-23-2022 Because of a physical, mental, or emotional condition, do you have serious difficulty concentrating, remembering, or making decisions Yes 08/23/2022 3:08 PM Abril Adrian, KALEN Yes [facility] 02-05-2022 Mental Status [facility] 02-05-2022 Mental Status [facility] NEGATED: Highlighted row Cognitive function [Interpretation] Cognitive status health issues are not documented Disease HN-Rjdsaazwo-Jacvusv n Work Phone: Clinical Notes 08-08-2013 to 05-20-2025 Telephone Encounter - Renee Manuel MD - 04/24/2025 1:05 PM EDTTelephone Encounter - Renee Manuel MD - 04/24/2025 1:05 PM Kiara Buenrostro MD - 04/23/2025 9:07 PM EDTPatient Instructions Note Date & Type Note Facility 05-20-2025 Consult note [facility] 05-20-2025 Procedure note [facility] 05-20-2025 Procedure note [facility] 05-20-2025 Consult note [facility] 05-20-2025 Procedure note [facility] 05-20-2025 Procedure note [facility] 05-20-2025 Consult note [facility] 05-20-2025 History and physi link note [facility] 05-13-2025 Note HNO ID: [id number] Author: FARIBA MONSON APRN.PUBLIC SAFETY TELECOMMUNICATOR Service: ? Author Type: Nurse Practitioner Type: Progress Notes Filed: 05/13/2025 13:21 Note Text: OFFICE VISIT PROGRESS NOTE CC Reinaldo Warren is a 40 year old who presents today for blood sugar review,. HPI PATIENT OF DR. LAUREN, ENDOCRINE Diagnosed with diabetes mellitus type 2, ~ 2020 Gestational DM 2012 Last endocrine OV 05/30/2023 WITH KUN JORDAN HPI 05/13/2025 Sts stopped insulin Then couldn't find a doctor close enough at home Sts exercising, eating better PCP started her on GLP1 Patient stopped all regular pop Cooking at home for most meals CURRENT DM MEDS MOUNJARO 2.5 mg SMBG Type of Monitor: Other Frequency of Monitorin times a day BG Values: Patient states her glucometer sts blood sugars 200-400 Values over past week: Highest ; Lowest Hypoglycemia: no Diet: Low carbohydrate//no added sugar Exercise: treadmill at home, walking around block DM REVIEW OF SYSTEMS Last Eye Exam : 05/2024 Last Podiatry Exam: declined Cardiorespiratory: negative, denies chest pain, pressure Claudication: no Dyslipidemia: Yes, controlled on medication High Blood Pressure: Yes, controlled on medication CU HEMOGLOBIN A1C Latest Ref Rng 05/13/2025 Hemoglobin A1C (POCT) 4.3 - 5.6 % 6.6 ! Legend: ! Abnormal Component Ref Range AND Units 12/15/2024 HEMOGLOBIN A1c <5.7 % of total Hgb 7.1 High Recent Labs 07/17/19 1317 07/25/19 0752 11/02/20 1024 04/08/21 0739 08/05/21 1002 08/06/21 1419 08/07/21 0446 08/13/21 0928 08/18/21 1033 11/18/21 1604 08/20/22 1254 08/20/22 2034 08/21/22 0621 08/23/22 0409 02/16/23 1240 05/30/23 1519 ALT -- < > -- 17 19 -- 18 -- -- -- -- -- -- -- -- -- AST -- < > -- 30 17 -- 21 -- -- -- -- -- -- -- -- -- UCRR -- -- 218.9 -- -- -- -- -- -- -- -- -- -- -- 49.4 -- UALBR -- -- 18.8 -- -- -- -- -- -- -- -- -- -- -- <12.0 -- UALBCR -- -- 9 -- -- -- -- -- -- -- -- -- -- -- <24 -- TSH 1.450 -- -- -- -- 1.300 -- -- -- -- -- 3.040 -- -- -- -- CPEPT -- -- -- -- -- -- -- -- 5.3* -- -- -- -- -- -- -- GADQL -- -- -- -- -- -- -- -- Negative -- -- -- -- -- -- -- TPROT -- < > -- 6.9 7.1 -- 5.1* -- -- -- -- -- -- -- -- -- ALB -- < > -- 4.3 4.7 -- 3.5* -- -- -- -- -- -- -- -- -- CA 9.2 < > -- 9.3 9.7 8.8 8.7 < > -- -- 8.9 -- 8.7 9.6 -- -- TBILI -- < > -- 1.0 0.8 -- 0.4 -- -- -- -- -- -- -- -- -- ALKPHOS -- < > -- 68 90 -- 64 -- -- -- -- -- -- -- -- -- GLUC 167* < > -- 179* 554* 193* 149* < > 158* -- 277* -- 189* 197* -- -- BUN 9 < > -- 10 18 12 10 < > -- -- 7 -- 8 14 -- -- CREAT 0.64 < > -- 0.63 1.23* 0.74 0.71 < > -- -- 0.61 -- 0.60 0.68 -- -- NA 136 < > -- 134* 128* 137 137 < > -- -- 132* -- 135* 134* -- -- K 3.9 < > -- 4.3 4.8 4.0 4.1 < > -- -- 3.7 -- 4.1 4.0 -- -- CHLOR 101 < > -- 102 91* 104 103 < > -- -- 96* -- 100 97 -- -- CO2 24 < > -- 21* 23 23 24 < > -- -- 24 -- 25 26 -- -- ANION 11 < > -- 11 14 10 10 < > -- -- 12 -- 10 11 -- -- EGFROTH >60 < > -- >60 49 >60 >60 < > -- -- 118 -- 119 115 -- -- HBA1C -- < > -- 5.6 8.2* -- -- -- -- < > -- 6.6* -- -- 7.2* 7.6* B12 -- -- -- -- -- -- 285 -- -- -- -- -- -- -- -- -- < > = values in this interval not displayed. Recent Labs 05/12/17 0815 09/05/18 0949 04/08/21 0739 08/05/21 1002 08/07/21 0446 08/13/21 0928 11/18/21 1604 08/20/22 2034 02/16/23 1240 05/30/23 1519 TG 149 -- 207* -- -- 297* -- -- 517* -- CHOL 150 -- 195 -- -- 222* -- -- 278* -- HDL 37* -- 33* -- -- 35* -- -- 35* -- VLDL 30 -- 41* -- -- 59* -- -- 72* -- LDL 83 -- 121* -- -- 128* -- -- -- -- FASTTIME 12 -- 12 -- -- 12 -- -- 12 -- TCHDL 4.05 -- 5.91* -- -- 6.34* -- -- 7.94* -- LDLHDL 2.24 -- 3.67* -- -- 3.66* -- -- -- -- NONHDL 113 -- 162* -- -- 187* -- -- 243* -- HBA1C 4.4 < > 5.6 8.2* -- -- < > 6.6* 7.2* 7.6* HBA0 80 < > 114 189 -- -- -- 143 160 -- B12 -- -- -- -- 285 -- -- -- -- -- < > = values in this interval not displayed. PAST MEDICAL HISTORY Diagnosis Date Diabetes mellitus of mother, complicating , childbirth, or the puerperium, unspecified as to episode of care(648.00) Gestational diabetes Dysthymic disorder Depression (non-psychotic), Essential hypertension, benign Hemorrhoids 05/19/2011 History of gestational diabetes 10/31/2012 10/31/2012Patient had gestational diabetes with her last 2 pregnancies. She was on glyburide with the that she delivered in 2009. She was insulin-dependent her last . She delivered both of those pregnancies in [place]. Patient is obese. 3 hour G TT ordered by Dr. Jennings. Migraine, unspecified, with intractable migraine, so stated, without mention of status migrainosus Migraine Nipple discharge 02/19/2016 PMH - PAST MEDICAL HISTORY OF DYSLEXIA PMH - PAST MEDICAL HISTORY OF 1988 FRACTURED LEFT LEG PMH - PAST MEDICAL HISTORY OF 01/2007 HOSPITALIZED FOR RUPTURED OVARIAN CYST Psychogenic (more content not included)... [facility] 05-04-2025 Nuclear medicine Diagnostic study note [facility] Imaging Services [address] [place] [address] [id number] Gastric Emptying Study - 4 HR MR#: [id number] Acct: [id number] Name: REINALDO WARREN Rep #: [id number] : 1985 F 40 From: Papito Watson MD PCP: EZ Fuentes Status: REG CLI Study:Gastric Emptying Study - 4 HR Date of E xam: 04/30/25 Exam# [id number] Ordering Dr: Lidia De Souza PROCEDURE: GASTRIC EMPTYING STUDY - 4 HR 04/30/2025 REASON FOR EXAM: N/V, DIABETIC COMPARISON: None. TECHNIQUE: The patient ingested a standard 2 slices of bread, to pets of butter, and 6 oz of water. There was no vomiting postprandially. Anterior and posterior planar images of the upper abdomen were obtained for 1 minute immediately following the meal at 1h, 2h and 4h if more than 10% of the activity persisted within the stomach. Regions of interest were drawn, and a geometric mean was used to calculate a goop-jybtclzz-kgsnj. Medications taken in the past 24 hours that may affect gastric emptying: None RADIOPHARMACEUTICAL: Technetium 99 M sulfur colloid DOSE 1.1mCi orally, with thesolid meal FINDINGS: During the time of imaging, gastroesophageal reflux was not seen. Linear fit gastric emptying half-time of 133.18 minutes. Raw data fit gastric emptying half-time of 127.35 minutes. Percent activity remaining in stomach: 1 hour 78 % (normal 37-90%) 2 hours: 48 % (normal 30-60%) 4 hours: 10 % (normal 0-10%) NM/Gastric Emptying Study - 4 HR IMPRESSION: Normal solid phase gastric emptying. Reading Location: [place] [address] CC: EZ Cespedes; EZ De Souza ~ Data Collection Specialist: Signed [facility] 04-24-2025 [facility]. Renee Manuel MD [facility] 04-24-2025 Miscellaneous Notes mychart message sent. Renee Manuel MD Pt calling-states she had Pelvic US completed on 04/21/25 here at [facility] and wondering what results showed. Informed Pt would sent RR message to let her know she called and once report results-we would be in contact with her as at this time. Caitlyn Espinal RN documented in this encounter [facility] 04-23-2025 Note HNO ID: [id number] Author: KIARA GALVEZ MD Service: ? Author Type: Physician Type: Progress Notes Filed: 04/23/2025 21:12 Note Text: The patient presents for requested ultrasound. Full report available in the Imaging tab in Epic. Kiara Galvez MD [facility] 04-23-2025 History of Present illness Narrative The patient presents for requested ultrasound. Full report available in the Imaging tab in Epic. Kiara Galvez MD documented in this encounter [facility] 04-23-2025 History of Present illness Narrative Subjective Patient ID: Reinaldo Warren is a 40 y.o. female who presents for Follow-up (ER FOLLOW UP, BLOOD SUGARS, BP CHECK). HPI: Presents today for ER FU FOR N/V AND CHAN. SYMPTOMS HAVE RESOLVED. C/O GLUCOSE LEVELS OF 300S ON AVERAGE. SHE HAS NOT HAD ANY DM MEDS R/T PHARMACY NOT PROVIDING MEDS. NO FURTHER COMPLAINTS HTN- INCREASE METOPROLOL TO 50 MG DAILY FROM 25 MG DAILY. MONITOR AT HOME IF IN 2 WEEKS BP >140/90 CALL WITH RESULTS, INCLUDE PULSE READINGS. DM- START MOUNJARO 2.5MG WEEKLY. KEEP GLUCOSE LOG. RETURN IN 5 WEEKS OR AFTER 4 INITIAL INJECTIONS. Visit Vitals BP (!) 165/96 Pulse (!) 114 Ht 1.6 m (5' 3) Wt 89.8 kg (198 lb) BMI 35.07 kg/m OB Status Having periods Smoking Status Former BSA 2 m Review of Systems Constitutional: Negative for chills, fatigue, fever and unexpected weight change. HENT: Negative for congestion, ear pain, sore throat and trouble swallowing. Eyes: Negative for photophobia, pain, redness and visual disturbance. Respiratory: Negative for apnea, cough, choking, chest tightness, shortness of breath and wheezing. Cardiovascular: Negative for chest pain, palpitations and leg swelling. Gastrointestinal: Negative for abdominal distention, abdominal pain, blood in stool, constipation, diarrhea, nausea and vomiting. Genitourinary: Negative for difficulty urinating, dysuria, flank pain, frequency, hematuria and urgency. Musculoskeletal: Negative for arthralgias, back pain, gait problem, joint swelling, myalgias and neck pain. Skin: Negative for rash and wound. Neurological: Negative for dizziness, seizures, syncope, facial asymmetry, speech difficulty, weakness, numbness and headaches. Psychiatric/Behavioral: Negative for confusion, sleep disturbance and suicidal ideas. The patient is not nervous/anxious. Objective Physical Exam Constitutional: Appearance: Normal appearance. She is normal weight. HENT: Head: Normocephalic. Eyes: Extraocular Movements: Extraocular movements intact. Conjunctiva/sclera: Conjunctivae normal. Pupils: Pupils are equal, round, and reactive to light. Cardiovascular: Rate and Rhythm: Normal rate and regular rhythm. Pulses: Normal pulses. Heart sounds: Normal heart sounds. Pulmonary: Effort: Pulmonary effort is normal. Breath sounds: Normal breath sounds. Musculoskeletal: General: Normal range of motion. Cervical back: Normal range of motion. Skin: General: Skin is warm and dry. Neurological: General: No focal deficit present. Mental Status: She is alert and oriented to person, place, and time. Psychiatric: Mood and Affect: Mood normal. Behavior: Behavior normal. Thought Content: Thought content normal. Judgment: Judgment normal. Assessment/Plan Problem List Items Addressed This Visit Mixed diabetic hyperlipidemia associated with type 2 diabetes mellitus - Primary Relevant Medications tirzepatide (Mounjaro) 2.5 mg/0.5 mL pen injector Other Relevant Orders CT cardiac scoring wo IV contrast Hypertension associated with type 2 diabetes mellitus Relevant Medications tirzepatide (Mounjaro) 2.5 mg/0.5 mL pen injector metoprolol succinate XL (Toprol XL) 50 mg 24 hr tablet Class 2 severe obesity due to excess calories with serious comorbidity and body mass index (BMI) of 35.0 to 35.9 in adult Other Visit Diagnoses Breast cancer screening by mammogram Relevant Orders BI mammo bilateral screening tomosynthesis WE DISCUSSED THAT IF ANY ISSUES OBTAINING MEDS, SHE IS TO CALL THE OFFICE FOR ASSISTANCE. WE DISCUSSED MOST COMMON SIDE EFFECTS OF PRESCRIBED MEDICATIONS. INDICATIONS, RISK, COMPLICATIONS, AND ALTERNATIVES OF MEDICATION/THERAPEUTICS WERE EXPLAINED AND DISCUSSED. PLEASE MONITOR CLOSELY FOR ANY UNTOWARD SIDE EFFECTS OR COMPLICATIONS OF MEDICATIONS. PATIENT IS STRONGLY ADVISED TO BE COMPLIANT WITH RECOMMENDATIONS. QUESTIONS AND CONCERNS WERE ADDRESSED. INSTRUCTED TO CALL, RETURN SOONER, OR GO TO THE ER, IF SYMPTOMS PERSIST OR WORSEN. THEY VOICED UNDERSTANDING AND DENIES FURTHER QUESTIONS AT THIS TIME. TIME CODE 1. PREPARATION FOR PATIENT'S VISIT (REVIEWING CHART, CURRENT MEDICAL RECORDS, OUTSIDE HEALTH PROVIDER RECORDS, PREVIOUS HISTORY, EXAM, TEST, PROCEDURE, AND MEDICATIONS) 2. FACE TO FACE ENCOUNTER OBTAINING HISTORY FROM THE PATIENT/FAMILY/CAREGIVERS; PERFORMING EVALUATION AND EXAMINATION; ORDERING TESTS OR PROCEDURES; REFERRING AND COMMUNICATING WITH OTHER HEALTHCARE PROVIDERS; COUNSELING AND EDUCATION OF THE PATIENT/FAMILY/CAREGIVERS; INDEPENDENTLY INTERPRETING RESULTS (TESTS, LABS, PROCEDURES, IMAGING) AND COMMUNICATING AND EXPLAINING RESULTS TO THE PATIENT/FAMILY/CAREGIVERS 3. COORDINATION OF CARE; PREPARING AND PRINTING DISCHARGE INSTRUCTIONS AND ANY EDUCATIONAL MATERIAL FOR THE PATIENT/FAMILY/CAREGIVERS. DOCUMENTING CLINICAL INFORMATION IN THE ELECTRONIC MEDICAL RECORD 4. REVIEWING OARRS NEEDED MDM 1) COMPLEXITY: MORE THAN 1 STABLE CHRONIC CONDITION ADDRESSED OR 1 ACUTE ILLNESS ADDRESSED 2)DATA: TESTS INTERPRETED AND OR ORDERED, TOOK INDEPENDENT HISTORY OR RECORDS REVIEWED 3)RISK: MODERATE RISK DUE TO NATURE OF MEDICAL CONDITIONS/COMORBIDITY OR MEDICATIONS ORDERED OR SURGICAL OR PROCEDURE REFERRAL 5 WEEKS WITH LABS documented in this encounter [facility] Work Phone: 04-23-2025 Instructions VIKKI Fuentes - 04/23/2025 2:20 PM EDT INCREASE METOPROLOL TO 50 MG DAILY FROM 25 MG DAILY. MONITOR AT HOME IF IN 2 WEEKS BP >140/90 CALL WITH RESULTS, INCLUDE PULSE READINGS. documented in this encounter [facility] Work Phone: 04-23-2025 Telephone encounter Note Pt calling-states she had Pelvic US completed on 04/21/25 here at [facility] [place] and wondering what results showed. Informed Pt would sent RR message to let her know she called and once report results-we would be in contact with her as at this time. Caitlyn Espinal RN [facility] 04-16-2025 Note HNO ID: [id number] Author: RENEE MANUEL MD Service: ? Author Type: Physician Type: Progress Notes Filed: 04/16/2025 12:35 Note Text: Obstetrics and Gynecology [place] DAMAGE PREVENTION COORDINATOR Visit Subjective Recording using Kingnet software for draft documentation of the visit was discussed with the patient/authorized sales representative uniforms; all questions welcomed and answered. Patient/authorized sales representative uniforms agreed to proceed CHIEF COMPLAINT: The patient is a 40-year-old female with a history of ovarian cysts, hypertension, and diabetes presenting for evaluation of chronic abdominal pain and menstrual irregularities. HPI: Pelvic Pain - Onset: Approximately 6 months ago. - Location: Described as all over the abdomen. - Characteristics: Described as a big cramp that holds and then relaxes, with pain being constant and not changing around menstrual cycles. - Aggravating Factors: Pain worsens during menstrual periods. - Alleviating Factors: Sometimes improves after a bowel movement. - Treatments Tried: Tylenol and ice packs with minimal relief. - Associated Symptoms: Constipation and diarrhea, with bowel movements being either very hard or very soft. - Recent Imaging: CT scan on April 11 showed a 2 cm ovarian cyst. concerned her medications are the cause of her pain Menstrual Irregularities - Menstrual Cycle: Irregular, occurring approximately every 30-60 days. - Duration: Varies from 2 to 4 days. - Flow: Variable, sometimes very heavy and other times very light. - Associated Symptoms: Reports hot flashes, leading a friend to suggest she might be in the early stages of menopause. - Previous Treatments: Tried different control pills without significant improvement. Hypertension - Current Medications: On multiple medications for blood pressure control. - Concerns: Patient expresses a desire to reduce the number of medications, suspecting they may be contributing to bowel issues. Diabetes - Management: Currently managed by her family doctor. - Last Android Ui Developer Visit: Several years ago. - Concerns: Struggling with blood sugar control. has not been taking any meds and BS have been very high Past Diagnostic Results: - CT Scan (April 11): Showed a 2 cm ovarian cyst. - Colonoscopy: Scheduled for May, along with stool sample testing. HISTORY: OB History Gravida5 Para4 Term4 Preterm0 AB1 Living4 SAB1 IAB0 Ectopic0 Multiple0 Live Births1 Electrical Design Technician History LMP: 04/15/2025 (Exact Date), Having periods Age at Menarche: Age at First : Age at Menopause: Electrical Design Technician History Comments: Sexual Activity: Yes; Male Contraception: Tubal Ligation PAST MEDICAL HISTORY Diagnosis Date Diabetes mellitus of mother, complicating , childbirth, or the puerperium, unspecified as to episode of care(448.00) Gestational diabetes Dysthymic disorder Depression (non-psychotic), Essential hypertension, benign Hemorrhoids 05/19/2011 History of gestational diabetes 10/31/2012 10/31/2012Patient had gestational diabetes with her last 2 pregnancies. She was on glyburide with the that she delivered in 2009. She was insulin-dependent her last . She delivered both of those pregnancies in [place]. Patient is obese. 3 hour G TT ordered by Dr. Jennings. Migraine, unspecified, with intractable migraine, so stated, without mention of status migrainosus Migraine Nipple discharge 02/19/2016 PMH - PAST MEDICAL HISTORY OF DYSLEXIA PMH - PAST MEDICAL HISTORY OF 1988 FRACTURED LEFT LEG PMH - PAST MEDICAL HISTORY OF 01/2007 HOSPITALIZED FOR RUPTURED OVARIAN CYST Psychogenic nonepileptic seizure 10/20/2022 SPINAL HEADACHE WITH DELIVERIES IN Type 2 diabetes mellitus (HCC) Unspecified asthma(493.90) PAST SURGICAL HISTORY Procedure Laterality Date DELIVERY ONLY 2008,10/14/2009 , low cervicalx2 DELIVERY ONLY 06/06/2013 , low transverse COLONOSCOPY FLX DX W/COLLJ SPEC WHEN PFRMD 11/28/2013 Colonoscopy ESOPHAGOGASTRODUODENOSCOPY TRANSORAL DIAGNOSTIC 11/28/2013 EGD HYSTEROSCOPY BX W/WO DANDC 08/14/2019 hysteroscoy DANDC w/ mirena insertion LIG/TRNSXJ FLP TUBE ABDL/VAG APPR UNI/BI 06/06/2013 Tubal ligation REMOVAL OF GALLBLADDER 10/07/2018 [place] REPAIR UMBILICAL HERNIA 06/20/[address] medium mesh [facility] FAMILY HISTORY Problem Relation Age of Onset Hypertension Father Diabetes Father Lipids Father Asthma Mother Hypertension Mother Breast Cancer Mother Diabetes Mother Strabismus Sister Cancer Maternal Grandfather LUNG CANCER Heart Maternal Grandmother SD Cancer Paternal Grandfather THROAT CANCER Breast Cancer Maternal Aunt Breast Cancer Paternal Aunt Coronary Artery Disease No Family History Thyroid No Family History Blood Disease No Family History Blood Clots No Family History Factor 5 Leiden No Family History DVT No Fa (more content not included)... [facility] 04-16-2025 History of Present illness Narrative Images from the original note were not included. Obstetrics and Gynecology [place] DAMAGE PREVENTION COORDINATOR Visit Subjective Recording using Kingnet software for draft documentation of the visit was discussed with the patient/authorized sales representative uniforms; all questions welcomed and answered. Patient/authorized sales representative uniforms agreed to proceed CHIEF COMPLAINT: The patient is a 40-year-old female with a history of ovarian cysts, hypertension, and diabetes presenting for evaluation of chronic abdominal pain and menstrual irregularities. HPI: Pelvic Pain - Onset: Approximately 6 months ago. - Location: Described as all over the abdomen. - Characteristics: Described as a big cramp that holds and then relaxes, with pain being constant and not changing around menstrual cycles. - Aggravating Factors: Pain worsens during menstrual periods. - Alleviating Factors: Sometimes improves after a bowel movement. - Treatments Tried: Tylenol and ice packs with minimal relief. - Associated Symptoms: Constipation and diarrhea, with bowel movements being either very hard or very soft. - Recent Imaging: CT scan on April 11 showed a 2 cm ovarian cyst. concerned her medications are the cause of her pain Menstrual Irregularities - Menstrual Cycle: Irregular, occurring approximately every 30-60 days. - Duration: Varies from 2 to 4 days. - Flow: Variable, sometimes very heavy and other times very light. - Associated Symptoms: Reports hot flashes, leading a friend to suggest she might be in the early stages of menopause. - Previous Treatments: Tried different control pills without significant improvement. Hypertension - Current Medications: On multiple medications for blood pressure control. - Concerns: Patient expresses a desire to reduce the number of medications, suspecting they may be contributing to bowel issues. Diabetes - Management: Currently managed by her family doctor. - Last Android Ui Developer Visit: Several years ago. - Concerns: Struggling with blood sugar control. has not been taking any meds and BS have been very high Past Diagnostic Results: - CT Scan (April 11): Showed a 2 cm ovarian cyst. - Colonoscopy: Scheduled for May, along with stool sample testing. HISTORY: OB History Gravida5 Para4 Term4 Preterm0 AB1 Living4 SAB1 IAB0 Ectopic0 Multiple0 Live Births1 Electrical Design Technician History LMP: 04/15/2025 (Exact Date), Having periods Age at Menarche: Age at First : Age at Menopause: Electrical Design Technician History Comments: Sexual Activity: Yes; Male Contraception: Tubal Ligation PAST MEDICAL HISTORY Diagnosis Date Diabetes mellitus of mother, complicating , childbirth, or the puerperium, unspecified as to episode of care(258.00) Gestational diabetes Dysthymic disorder Depression (non-psychotic), Essential hypertension, benign Hemorrhoids 05/19/2011 History of gestational diabetes 10/31/2012 10/31/2012Patient had gestational diabetes with her last 2 pregnancies. She was on glyburide with the that she delivered in 2009. She was insulin-dependent her last . She delivered both of those pregnancies in [place]. Patient is obese. 3 hour G TT ordered by Dr. Jennings. Migraine, unspecified, with intractable migraine, so stated, without mention of status migrainosus Migraine Nipple discharge 02/19/2016 PMH - PAST MEDICAL HISTORY OF DYSLEXIA PMH - PAST MEDICAL HISTORY OF 1988 FRACTURED LEFT LEG PMH - PAST MEDICAL HISTORY OF 01/2007 HOSPITALIZED FOR RUPTURED OVARIAN CYST Psychogenic nonepileptic seizure 10/20/2022 SPINAL HEADACHE WITH DELIVERIES IN 2009&2011 Type 2 diabetes mellitus (HCC) Unspecified asthma(493.90) PAST SURGICAL HISTORY Procedure Laterality Date DELIVERY ONLY 2008,10/14/2009 , low cervicalx2 DELIVERY ONLY 06/06/2013 , low transverse COLONOSCOPY FLX DX W/COLLJ SPEC WHEN PFRMD 11/28/2013 Colonoscopy ESOPHAGOGASTRODUODENOSCOPY TRANSORAL DIAGNOSTIC 11/28/2013 EGD HYSTEROSCOPY BX W/WO D&C 08/14/2019 hysteroscoy D&C w/ mirena insertion LIG/TRNSXJ FLP TUBE ABDL/VAG APPR UNI/BI 06/06/2013 Tubal ligation REMOVAL OF GALLBLADDER 10/07/2018 [place] REPAIR UMBILICAL HERNIA 06/20/[address] medium mesh [facility] FAMILY HISTORY Problem Relation Age of Onset Hypertension Father Diabetes Father Lipids Father Asthma Mother Hypertension Mother Breast Cancer Mother Diabetes Mother Strabismus Sister Cancer Maternal Grandfather LUNG CANCER Heart Maternal Grandmother SD Cancer Paternal Grandfather THROAT CANCER Breast Cancer Maternal Aunt Breast Cancer Paternal Aunt Coronary Artery Disease No Family History Thyroid No Family History Blood Disease No Family History Blood Clots No Family History Factor 5 Leiden No Family History DVT No Family History Stroke No Family History Systemic Lupus Erythematosus No Family History Multiple Sclerosis No Family History Bipolar disorder No Family History Schizophrenia No Family History Alzheimer's Disease No Family History Dementia No Family History Parkinson s Disease No Family History Aneurysm No Family History COPD No Family History Kidney Disease No Family History Seizures No Family History Social History Tobacco Use Smoking status: Former Current packs/day: 0.00 Average packs/day: 0.5 packs/day for 10.0 years (5.0 ttl pk-yrs) Types: Cigarettes Start date: 04/02/2009 Quit date: 04/02/2019 Years since quittin.0 Smokeless tobacco: Never Vaping Use Vaping status: Never Used Substance Use Topics Alcohol use: No Drug use: Never Current Outpatient Medications Medication Sig dicyclomine (BENTYL) 10 mg capsule ondansetron (ZOFRAN) 4 mg tablet TAKE 1 TABLET (4 MG) BY MOUTH EVERY 6 HOURS FOR 3 DAYS. ARIPiprazole (ABILIFY) 15 mg tablet Take 15 mg by mouth. metoprolol succinate ER (TOPROL XL) 25 mg 24 hr tablet Take 25 mg by mouth. gwrmygj-urfqsoypx-zawrovn D3 500 mg-5 mcg (200 unit) per tablet Take 1 tablet by mouth two times a day. famotidine (PEPCID) 20 mg tablet Take 20 mg by mouth. keTORolac (TORADOL) 10 mg tablet Take 10 mg by mouth every 6 hours as needed. pantoprazole DR (PROTONIX) 20 mg tablet Take 20 mg by mouth. mirtazapine (REMERON) 30 mg tablet Take 1 tablet by mouth daily at bedtime. venlafaxine ER (EFFEXOR XR) 150 mg 24 hr capsule Take 1 capsule by mouth once daily. with 37.5 mg capsule for a total of 187.5 mg daily venlafaxine ER (EFFEXOR XR) 37.5 mg 24 hr capsule Take 1 capsule by mouth once daily. with 150 mg capsule for a total of 187.5 mg daily gabapentin (NEURONTIN) 100 mg capsule Take 1 capsule by mouth three times a day as needed (for anxiety) for up to 30 days. traZODone (DESYREL) 100 mg tablet Take 1 tablet by mouth at bedtime as needed for sedation. lisinopril (ZESTRIL) 40 mg tablet Take 1 tablet by mouth once daily. rosuvastatin (CRESTOR) 5 mg tablet take 1 tablet by mouth everyday at bedtime linaclotide (LINZESS) 145 mcg capsule Take by mouth. No current facility-administered medications for this visit. ALLERGIES Allergen Reactions Augmentin [Amoxicil* Mental Status Change Shellfish Swelling Tylenol #3 [Codeine] Swelling Venom-Honey Bee Swelling REVIEW OF SYSTEMS: Gastrointestinal: (+) abdominal pain, (+) constipation, (+) diarrhea Genitourinary: (+) menorrhagia, (+) irregular menses, (+) dysmenorrhea, (-) abnormal vaginal discharge, (-) vaginal pruritus, (-) vaginal burning, (-) dyspareunia, (-) postcoital bleeding Endocrine: (+) hot flashes Objective SENSITIVE EXAM: The sensitive examination was discussed with the Patient or Patient's Authorized Measurer Machine. As applicable, any other physician, advance practice provider, medical student, or other health professional student that will be observing or involved in the sensitive examination for educational or training purposes was discussed with the Patient or Authorized Measurer Machine. The Patient or Authorized Measurer Machine has agreed to proceed with the sensitive examination. (Sensitive examination includes inspection and/or palpation of the breasts, pelvis, prostate and anorectal regions). PHYSICAL EXAM: BP 146/92 Wt 196 lb (88.9kg) LMP 04/15/2025 GENERAL: Pleasant; in no acute distress BREAST: soft, non-tender, symmetric, no dominant mass, normal nipple-areolar complex, no lymphadenopathy, no nipple discharge PULMONARY: normal inspiratory effort ABDOMEN: soft, tender to palpation diffusely, some voluntary guarding, no rebound, more pronounced in the upper abdomen, no masses : - PELVIC: external genitalia normal, normal Bartholin's glands, urethra, [employer]'s glands, no vulvar lesions, no cervical lesions, good vaginal support, moderate dark red blood in vault, normal appearing perineal body and perianal region, mild tenderness over levator muscles, no evidence of pelvic organ prolapse, good support. - BIMANUAL: uterus normal size, shape and consistency, no adnexal masses, diffuse tenderness, not worse one side. NEURO: alert and oriented x3 EXTREMITIES: normal Assessment & Plan ASSESSMENT AND PLAN: 1. Ovarian cyst, left (N83.202) 2. Cyst of left ovary (N83.202) - Recent CT scan on April 11 revealed a 2 cm ovarian cyst, likely a functional follicle and d/w her difference between follicle and cyst. - Unlikely to be the cause of chronic pain; expect resolution in subsequent cycles. - Ordered pelvic ultrasound in two weeks to monitor cyst resolution and rule out other pathologies. 3. Pelvic pain in female (R10.2)- check pelvic US 4. Dysmenorrhea (N94.6) - Chronic pelvic pain for 6 months, exacerbated during menstruation; pain is diffuse and cramp-like, with intermittent relief post-bowel movement. - Physical exam reveals tenderness in the upper abdomen and mild tenderness over the uterus and right adnexa. - Discussed multifactorial nature of pain; recommended dietary modifications, increased fiber and water intake, and use of probiotics to maintain consistent bowel movements. - Advised use of TENS unit for pain management. - Discussed potential benefits of menstrual suppression post-ultrasound to reduce dysmenorrhea. - Patient to continue follow-up with GI specialist; colonoscopy scheduled in May with Dr. Romero at [facility]. 5. Poorly control type 2 diabetes mellitus (HCC) (E11.65) - Suboptimal glycemic control; discussed risks of uncontrolled diabetes including neuropathy and gastroparesis contributing to abdominal pain. 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 - Emphasized importance of blood sugar control to prevent long-term complications. 6. Chronic constipation (K59.09) - Alternating bowel habits with episodes of constipation and diarrhea; recent bowel movement was soft and watery. - Advised dietary modifications to increase fiber and water intake. - Stool samples currently being analyzed. - Continue follow-up with GI specialist. schedule pap/annual. Pap not done due to being on menses Renee Manuel MD documented in this encounter [facility] 04-13-2025 Evaluation note Diagnosis Onset Date Resolution Abdominal cramping acute April 132024 1:33pm Nausea and vomiting acute April 13, 2025 1:33pm Ovarian cyst acute April 13 1:33pm [facility] Work Phone: 1(462) 851-705007-07-2025 Evaluation note* Diagnosis Onset Date Resolution Status Admit Date Abdominal cramping acute April 132024 1:33pm Nausea and vomiting acute April 13, 2025 1:33pm Ovarian cyst acute April 13 1:33pm Abdominal cramping acute May 20, 2025 1:20pm Nausea and vomiting acute Augus t 2024 1:20pm [facility] Work Phone: [phone]) 599-950507-04-2025 Physician Emergency department Note* Ania Uriarte, DO - 04/10/2025 11:18 PM EDT HPI Chief Complaint Patient presents with Abdominal Pain C o intermittent abd spasms. Pt endorses nausea without vomiting. 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 Patient states pain is periumbilical and midepigastric in nature. Patient denies any diarrhea but did have nausea. Patient hada bowel movement prior to arrival. Patient does have some mild nausea when I examined her. Denies any fever or chills. No dysuria. Patient was given Toradol 15 mg IV and had significant improvement of symptoms. Patient will be discharged on medication. History provided by: Patient Patient History Medical History[1] Surgical History[2] Family History[3] Social History[4] Physical Exam ED Triage Vitals [04/10/25 2255] Temperature Heart Rate Respirations BP 36.7 C (98 F) 92 18 (!) 158/100 Pulse Ox Temp Source Heart Rate Source Patient Position 98 % Temporal Monitor Sitting BP Location FiO2 (%) Left arm -- Physical Exam Vitals and nursing note reviewed. Constitutional: Appearance: Normal appearance. HENT: Head: Normocephalic and atraumatic. Right Ear: Tympanic membrane normal. Left Ear: Tympanic membrane normal. Nose: Nose normal. Mouth/Throat: Mouth: Mucous membranes are moist. Eyes: Extraocular Movements: Extraocular movements intact. Pupils: Pupils are equal, round, and reactive to light. Cardiovascular: Rate and Rhythm: Normal rate. Pulmonary: Effort: Pulmonary effort is normal. Breath sounds: Normal breath sounds. Abdominal: General: Abdomen is flat. Bowel sounds are normal. Palpations: Abdomen is soft. Tenderness: There is abdominal tenderness in the epigastric area and periumbilical area. Musculoskeletal: General: Normal range of motion. Cervical back: Normal range of motion. Skin: General: Skin is warm and dry. Neurological: General: No focal deficit present. Mental Status: She is alert and oriented to person, place, and time. Labs Reviewed CBC WITH AUTO DIFFERENTIAL - Abnormal Result Value WBC 4.9 nRBC 0.0 RBC 3.90 (*) Hemoglobin 11.9 (*) Hematocrit 34.2 (*) MCV 88 MCH 30.5 MCHC 34.8 RDW 15.0 (*) Platelets 196 Neutrophils % 56.8 Immature Granulocytes %, Automated 1.6 (*) Lymphocytes % 32.2 Monocytes % 8.4 Eosinophils % 0.6 Basophils % 0.4 Neutrophils Absolute 2.78 Immature Granulocytes Absolute, Automated 0.08 Lymphocytes Absolute 1.58 Monocytes Absolute 0.41 Eosinophils Absolute 0.03 Basophils Absolute 0.02 COMPREHENSIVE METABOLIC PANEL - Abnormal Glucose 272 (*) Sodium 135 (*) Potassium 3.9 Chloride 104 Bicarbonate 25 Anion Gap 10 Urea Nitrogen 8 Creatinine 0.59 eGFR >90 Calcium 9.0 Albumin 4.0 Alkaline Phosphatase 74 Total Protein 6.2 (*) AST 17 Bilirubin, Total 1.3 (*) ALT 18 URINALYSIS WITH REFLEX CULTURE AND MICROSCOPIC - Abnormal Color, Urine Light-Yellow Appearance, Urine Clear Specific [place], Urine 1.041 (*) pH, Urine 6.5 Protein, Urine NEGATIVE Glucose, Urine OVER (4+) (*) Blood, Urine NEGATIVE Ketones, Urine NEGATIVE Bilirubin, Urine NEGATIVE Urobilinogen, Urine Normal Nitrite, Urine NEGATIVE Leukocyte Esterase, Urine NEGATIVE Narrative: OVER is reported when the result is greater than the clinically reportable range. MAGNESIUM - Normal Magnesium 1.96 LIPASE - Normal Lipase 39 Narrative: Venipuncture immediately after or during the administration of Metamizole may lead to falsely low results. Testing should be performed immediately prior to Metamizole dosing. LACTATE - Normal Lactate 1.4 Narrative: Venipuncture immediately after or during the administration of Metamizole may lead to falsely low results. Testing should be performed immediately prior to Metamizole dosing. URINALYSIS WITH REFLEX CULTURE AND MICROSCOPIC Narrative: The following orders were created for panel order Urinalysis with Reflex Culture and Microscopic. Procedure Abnormality Status --------- ------ Urinalysis with Reflex C...[[id number]] Abnormal Final result Extra Urine Weber Tube[[id number]] Please view results for these tests on the individual orders. EXTRA URINE WEBER TUBE CT abdomen pelvis w IV contrast Final Result Mild splenomegaly; please clinically correlate. Mildly prominent mesenteric lymph nodes may be reactive in nature; clinical correlation is recommended.. Postsurgical change of prior cholecystectomy. No evidence of bowel obstruction or acute appendicitis. 2.2 cm involuting right ovarian cyst and small amount of free fluid in the pelvis. MACRO: None Signed by: Jean Carlos Norris 04/11/2025 1:11 AM Dictation workstation: [id number] ED Course & MDM Diagnoses as of 04/11/25218 Pain of upper abdomen No data recorded Medical Decision Making 1 bland diet 2 take medication as prescribed 3 follow-up with family medical doctor in 2 to 3 days if worse return to ED. Procedure Procedures [1] Past Medical History: Diagnosis Date Diabetes mellitus (Multi) Hypertension Personal history of transient ischemic attack (TIA), and cerebral infarction without residual deficits History of cerebrovascular accident Seizures (Multi) [2] Past Surgical History: Procedure Laterality Date SECTION, LOW TRANSVERSE OTHER SURGICAL HISTORY 02/11/2020 Cholecystectomy [3] Family History Problem Relation Name Age of Onset Hypertension Mother Diabetes type II Mother Diabetes type II Father Hypertension Father [4] Social History Tobacco Use Smoking status: Former Current packs/day: 0.00 Types: Cigarettes Quit date: 2015 Years since quittin.5 Smokeless tobacco: Never Vaping Use Vaping status: Never Used Substance Use Topics Alcohol use: Never Drug use: Never Ania Uriarte DO 04/11/25218 [facility] Work Phone: 1(371) 665-827707-04-2025 Emergency department Note* Ania Uriarte DO - 04/10/2025 11:18 PM EDT HPI Chief Complaint Patient presents with Abdominal Pain C o intermittent abd spasms. Pt endorses nausea without vomiting. 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 Patient states pain is periumbilical and midepigastric in nature. Patient denies any diarrhea but did have nausea. Patient hada bowel movement prior to arrival. Patient does have some mild nausea when I examined her. Denies any fever or chills. No dysuria. Patient was given Toradol 15 mg IV and had significant improvement of symptoms. Patient will be discharged on medication. History provided by: Patient Patient History Medical History[1] Surgical History[2] Family History[3] Social History[4] Physical Exam ED Triage Vitals [04/10/25 2255] Temperature Heart Rate Respirations BP 36.7 C (98 F) 92 18 (!) 158/100 Pulse Ox Temp Source Heart Rate Source Patient Position 98 % Temporal Monitor Sitting BP Location FiO2 (%) Left arm -- Physical Exam Vitals and nursing note reviewed. Constitutional: Appearance: Normal appearance. HENT: Head: Normocephalic and atraumatic. Right Ear: Tympanic membrane normal. Left Ear: Tympanic membrane normal. Nose: Nose normal. Mouth/Throat: Mouth: Mucous membranes are moist. Eyes: Extraocular Movements: Extraocular movements intact. Pupils: Pupils are equal, round, and reactive to light. Cardiovascular: Rate and Rhythm: Normal rate. Pulmonary: Effort: Pulmonary effort is normal. Breath sounds: Normal breath sounds. Abdominal: General: Abdomen is flat. Bowel sounds are normal. Palpations: Abdomen is soft. Tenderness: There is abdominal tenderness in the epigastric area and periumbilical area. Musculoskeletal: General: Normal range of motion. Cervical back: Normal range of motion. Skin: General: Skin is warm and dry. Neurological: General: No focal deficit present. Mental Status: She is alert and oriented to person, place, and time. Labs Reviewed CBC WITH AUTO DIFFERENTIAL - Abnormal Result Value WBC 4.9 nRBC 0.0 RBC 3.90 (*) Hemoglobin 11.9 (*) Hematocrit 34.2 (*) MCV 88 MCH 30.5 MCHC 34.8 RDW 15.0 (*) Platelets 196 Neutrophils % 56.8 Immature Granulocytes %, Automated 1.6 (*) Lymphocytes % 32.2 Monocytes % 8.4 Eosinophils % 0.6 Basophils % 0.4 Neutrophils Absolute 2.78 Immature Granulocytes Absolute, Automated 0.08 Lymphocytes Absolute 1.58 Monocytes Absolute 0.41 Eosinophils Absolute 0.03 Basophils Absolute 0.02 COMPREHENSIVE METABOLIC PANEL - Abnormal Glucose 272 (*) Sodium 135 (*) Potassium 3.9 Chloride 104 Bicarbonate 25 Anion Gap 10 Urea Nitrogen 8 Creatinine 0.59 eGFR >90 Calcium 9.0 Albumin 4.0 Alkaline Phosphatase 74 Total Protein 6.2 (*) AST 17 Bilirubin, Total 1.3 (*) ALT 18 URINALYSIS WITH REFLEX CULTURE AND MICROSCOPIC - Abnormal Color, Urine Light-Yellow Appearance, Urine Clear Specific [place], Urine 1.041 (*) pH, Urine 6.5 Protein, Urine NEGATIVE Glucose, Urine OVER (4+) (*) Blood, Urine NEGATIVE Ketones, Urine NEGATIVE Bilirubin, Urine NEGATIVE Urobilinogen, Urine Normal Nitrite, Urine NEGATIVE Leukocyte Esterase, Urine NEGATIVE Narrative: OVER is reported when the result is greater than the clinically reportable range. MAGNESIUM - Normal Magnesium 1.96 LIPASE - Normal Lipase 39 Narrative: Venipuncture immediately after or during the administration of Metamizole may lead to falsely low results. Testing should be performed immediately prior to Metamizole dosing. LACTATE - Normal Lactate 1.4 Narrative: Venipuncture immediately after or during the administration of Metamizole may lead to falsely low results. Testing should be performed immediately prior to Metamizole dosing. URINALYSIS WITH REFLEX CULTURE AND MICROSCOPIC Narrative: The following orders were created for panel order Urinalysis with Reflex Culture and Microscopic. Procedure Abnormality Status --------- ------ Urinalysis with Reflex C...[[id number]] Abnormal Final result Extra Urine Weber Tube[[id number]] Please view results for these tests on the individual orders. EXTRA URINE WEBER TUBE CT abdomen pelvis w IV contrast Final Result Mild splenomegaly; please clinically correlate. Mildly prominent mesenteric lymph nodes may be reactive in nature; clinical correlation is recommended.. Postsurgical change of prior cholecystectomy. No evidence of bowel obstruction or acute appendicitis. 2.2 cm involuting right ovarian cyst and small amount of free fluid in the pelvis. MACRO: None Signed by: Jean Carlos Norris 04/11/2025 1:11 AM Dictation workstation: [id number] ED Course & MDM Diagnoses as of 04/11/25 0219 Pain of upper abdomen No data recorded Medical Decision Making 1 bland diet 2 take medication as prescribed 3 follow-up with family medical doctor in 2 to 3 days if worse return to ED. Procedure Procedures [1] Past Medical History: Diagnosis Date Diabetes mellitus (Multi) Hypertension Personal history of transient ischemic attack (TIA), and cerebral infarction without residual deficits History of cerebrovascular accident Seizures (Multi) [2] Past Surgical History: Procedure Laterality Date SECTION, LOW TRANSVERSE OTHER SURGICAL HISTORY 02/11/2020 Cholecystectomy [3] Family History Problem Relation Name Age of Onset Hypertension Mother Diabetes type II Mother Diabetes type II Father Hypertension Father [4] Social History Tobacco Use Smoking status: Former Current packs/day: 0.00 Types: Cigarettes Quit date: 2015 Years since quittin.5 Smokeless tobacco: Never Vaping Use Vaping status: Never Used Substance Use Topics Alcohol use: Never Drug use: Never Ania Uriarte DO 04/11/25 0219 documented in this [facility] Work Phone: [phone]) [phone] Physician Emergency department Note* Freedom Venegas Waldodiaelizabeth, PROSTHETICS LAB TECHNICIAN-PUBLIC SAFETY TELECOMMUNICATOR - 04/01/2025 12:26 PM EDT Chief Complaint Patient presents with Vomiting Patient reports vomiting, 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 Patient History Medical History[1] Surgical History[2] Family History[3] Social History Social History Narrative Not on file RX Allergies[4] PMH: Reviewed PSH: Reviewed Social History: Reviewed. Allergies reviewed. HPI: Reinaldo Warren is a 40 y.o. female who presents to the ED today unaccompanied with complaints of vomiting, headache, body aches. Symptoms started 2 to 3 days ago. States everyone in her household is sick with similar type symptoms. States running fevers up to 101 at home. No Motrin or Tylenol taken today prior to arrival. States she just was not feeling well at work and had to come to theER. REVIEW OF SYSTEMS: All other systems reviewed and negative except as listed in HPI. PHYSICAL EXAM: GENERAL: Vitals noted, no distress. Alert and oriented x 3. Non-toxic. EENT: TMs clear. Posterior oropharynx unremarkable. EOMI, no nystagmus noted. NECK: Supple. No masses. No midline tenderness. No meningeal signs. CARDIAC: Regular rhythm, tachycardic. No murmurs rubs or gallops. No JVD. PULMONARY: Lungs clear and equal bilaterally. No wheezes rales or rhonchi. No respiratory distress. ABDOMEN: Soft, nondistended, and nontender. No peritoneal signs. Bowel sounds are present and normoactive in all 4 quadrants. No pulsatile masses. EXTREMITIES: No peripheral edema. SKIN: No rash. Warm, dry, and intact. NEURO: No focal neurologic deficits. Labs Reviewed SARS-COV-2 PCR - Normal Result Value Coronavirus 2019, PCR Not Detected Narrative: This assay is an FDA-cleared, in vitro diagnostic nucleic acid amplification test for the qualitative detection and differentiation of SARS CoV-2 from nasopharyngeal specimens collected from individuals with signs and symptoms of respiratory tract infections, and has been validated for use at [facility]. Negative results do not preclude COVID-19 infections and should not be used as the sole basis for diagnosis, treatment, or other management decisions. Testing for SARS CoV-2 is recommended only for patients who meet current clinical and/or epidemiological criteria defined by federal, state, or local public health directives. INFLUENZA A AND B PCR - Normal Flu A Result Not Detected Flu B Result Not Detected Narrative: This assay is an in vitro diagnostic multiplex nucleic acid amplification test for the detection and discrimination of Influenza A & B from nasopharyngeal specimens, and has been validated for use at [facility]. Negative results do not preclude Influenza A/B infections, and should not be used as the sole basis for diagnosis, treatment, or other management decisions. IfInfluenza A/B and RSV PCR results are negative, testing for Parainfluenza virus, Adenovirus and Metapneumovirus is routinely performed for [facility] pediatric oncology and intensive care inpatients, and isavailable on other patients by placing an add-on request. RSV PCR - Normal RSV PCR Not Detected Narrative: This assay is an FDA-cleared, in vitro diagnostic nucleic acid amplification test for the detectionof RSV from nasopharyngeal specimens, and has been validated for use at [facility]. Negative results do not preclude RSV infections, and should not be used as the sole basis for diagnosis, treatment, or other management decisions. If Influenza A/B and RSV PCR results are negative, testing for Parainfluenza virus, Adenovirus and Metapneumovirus is routinely performed for pediatric oncology and intensive care inpatients at [facility], and is available on other patients by placingan add-on request. No orders to display Medical Decision Making ED COURSE: This patient was seen and examined by myself independently. Patient has an IV established. Hydrated with normal saline 1 L bolus. Medicated with Toradol and Zofran. Feeling better on repeat evaluation. Nasal swab was negative for COVID, flu, RSV. She is reassured. Recommend she follow-upwith her primary care physician next week at her scheduled appointment. Return to ED for any new orworsening symptoms. Patient is discharged home in stable condition with computer instructions given. Differential Diagnoses Considered: gastritis, flu/covid Chronic Medical Conditions Significantly Affecting Care: see above External Records Reviewed: I reviewed recent and relevant outside records including: PCP notes, prior discharge summary, previous radiologic studies Diagnostic testing considered: nasal swab Escalation of Care: Appropriate for outpatient management Prescription Drug Consideration: Carmelina DIAGNOSTIC IMPRESSION: #1 n/v Diagnoses as of 04/01/257 Nausea and vomiting, unspecified vomiting type Viral syndrome [1] Past Medical History: Diagnosis Date Diabetes mellitus (Multi) Hypertension Personal history of transient ischemic attack (TIA), and cerebral infarction without residual deficits History of cerebrovascular accident Seizures (Multi) [2] Past Surgical History: Procedure Laterality Date SECTION, LOW TRANSVERSE OTHER SURGICAL HISTORY 02/11/2020 Cholecystectomy [3] Family History Problem Relation Name Age of Onset Hypertension Mother Diabetes type II Mother Diabetes type II Father Hypertension Father [4] Allergies Allergen Reactions Shellfish Derived Anaphylaxis Amoxicillin Unknown Amoxicillin-Pot Clavulanate Other Bee Venom Protein (Honey Bee) Angioedema and Swelling Clavulanic Acid Unknown Codeine Rash VIKKI Peña 04/01/25 1627 [facility] Work Phone: 1(119) 602-795906-25-2025 Emergency department Note* VIKKI Peña - 04/01/2025 12:26 PM EDT Chief Complaint Patient presents with Vomiting Patient reports vomiting, 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 Patient History Medical History[1] Surgical History[2] Family History[3] Social History Social History Narrative Not on file RX Allergies[4] PMH: Reviewed PSH: Reviewed Social History: Reviewed. Allergies reviewed. HPI: Reinaldo Warren is a 40 y.o. female who presents to the ED today unaccompanied with complaints of vomiting, headache, body aches. Symptoms started 2 to 3 days ago. States everyone in her household is sick with similar type symptoms. States running fevers up to 101 at home. No Motrin or Tylenol taken today prior to arrival. States she just was not feeling well at work and had to come to theER. REVIEW OF SYSTEMS: All other systems reviewed and negative except as listed in HPI. PHYSICAL EXAM: GENERAL: Vitals noted, no distress. Alert and oriented x 3. Non-toxic. EENT: TMs clear. Posterior oropharynx unremarkable. EOMI, no nystagmus noted. NECK: Supple. No masses. No midline tenderness. No meningeal signs. CARDIAC: Regular rhythm, tachycardic. No murmurs rubs or gallops. No JVD. PULMONARY: Lungs clear and equal bilaterally. No wheezes rales or rhonchi. No respiratory distress. ABDOMEN: Soft, nondistended, and nontender. No peritoneal signs. Bowel sounds are present and normoactive in all 4 quadrants. No pulsatile masses. EXTREMITIES: No peripheral edema. SKIN: No rash. Warm, dry, and intact. NEURO: No focal neurologic deficits. Labs Reviewed SARS-COV-2 PCR - Normal Result Value Coronavirus 2019, PCR Not Detected Narrative: This assay is an FDA-cleared, in vitro diagnostic nucleic acid amplification test for the qualitative detection and differentiation of SARS CoV-2 from nasopharyngeal specimens collected from individuals with signs and symptoms of respiratory tract infections, and has been validated for use at [facility]. Negative results do not preclude COVID-19 infections and should not be used as the sole basis for diagnosis, treatment, or other management decisions. Testing for SARS CoV-2 is recommended only for patients who meet current clinical and/or epidemiological criteria defined by federal, state, or local public health directives. INFLUENZA A AND B PCR - Normal Flu A Result Not Detected Flu B Result Not Detected Narrative: This assay is an in vitro diagnostic multiplex nucleic acid amplification test for the detection and discrimination of Influenza A & B from nasopharyngeal specimens, and has been validated for use at [facility]. Negative results do not preclude Influenza A/B infections, and should not be used as the sole basis for diagnosis, treatment, or other management decisions. IfInfluenza A/B and RSV PCR results are negative, testing for Parainfluenza virus, Adenovirus and Metapneumovirus is routinely performed for [facility] pediatric oncology and intensive care inpatients, and isavailable on other patients by placing an add-on request. RSV PCR - Normal RSV PCR Not Detected Narrative: This assay is an FDA-cleared, in vitro diagnostic nucleic acid amplification test for the detectionof RSV from nasopharyngeal specimens, and has been validated for use at [facility]. Negative results do not preclude RSV infections, and should not be used as the sole basis for diagnosis, treatment, or other management decisions. If Influenza A/B and RSV PCR results are negative, testing for Parainfluenza virus, Adenovirus and Metapneumovirus is routinely performed for pediatric oncology and intensive care inpatients at [facility], and is available on other patients by placingan add-on request. No orders to display Medical Decision Making ED COURSE: This patient was seen and examined by myself independently. Patient has an IV established. Hydrated with normal saline 1 L bolus. Medicated with Toradol and Zofran. Feeling better on repeat evaluation. Nasal swab was negative for COVID, flu, RSV. She is reassured. Recommend she follow-upwith her primary care physician next week at her scheduled appointment. Return to ED for any new orworsening symptoms. Patient is discharged home in stable condition with computer instructions given. Differential Diagnoses Considered: gastritis, flu/covid Chronic Medical Conditions Significantly Affecting Care: see above External Records Reviewed: I reviewed recent and relevant outside records including: PCP notes, prior discharge summary, previous radiologic studies Diagnostic testing considered: nasal swab Escalation of Care: Appropriate for outpatient management Prescription Drug Consideration: Zofran DIAGNOSTIC IMPRESSION: #1 n/v Diagnoses as of 04/01/251626 Nausea and vomiting, unspecified vomiting type Viral syndrome [1] Past Medical History: Diagnosis Date Diabetes mellitus (Multi) Hypertension Personal history of transient ischemic attack (TIA), and cerebral infarction without residual deficits History of cerebrovascular accident Seizures (Multi) [2] Past Surgical History: Procedure Laterality Date SECTION, LOW TRANSVERSE OTHER SURGICAL HISTORY 02/11/2020 Cholecystectomy [3] Family History Problem Relation Name Age of Onset Hypertension Mother Diabetes type II Mother Diabetes type II Father Hypertension Father [4] Allergies Allergen Reactions Shellfish Derived Anaphylaxis Amoxicillin Unknown Amoxicillin-Pot Clavulanate Other Bee Venom Protein (Honey Bee) Angioedema and Swelling Clavulanic Acid Unknown Codeine Rash VIKKI Peña 04/01/25 1627 [facility] Work Phone: 1(272) 947-841806-24-2025 Telephone encounter Note* Telephone Encounter - Pasha Mendes LPN - 2025 4:40 PM EDT Prescription Refill Information The patient has been identified by name and date of : Yes Caregiver verified no other encounters exist for this prescription request: Yes Caregiver confirmed with patient/requestor that no other refills are due, in the near future, with this provider at this time: Yes The last office visit in the department: 11/07/23 Does the patient have a future office visit with this provider/department: No Requested Prescriptions Pending Prescriptions Disp Refills rosuvastatin (CRESTOR) 5 mg tablet 90 tablet 1 Sig: Take 1 tablet by mouth daily at bedtime. lisinopril (ZESTRIL) 40 mg tablet 30 tablet 0 Sig: Take 1 tablet by mouth once daily. *Last Lisinopril 40mg rx written 01/25/24 #30 with 0 refills. Per pharm dispense report- Petros Cespedes CNP last filled rx on 12/17/24. *Last Crestor 5mg rx written 10/02/23 #90 with 1 refill. Per pharm dispense report- Petros Cespedes CNP wrote for Atorvastatin 10mg on 12/17/24. Pt advised to contact Petros Cespedes's office for medication refills. Pasha Mendes LPN 2025 4:41 PM [facility]06-24-2025 Miscellaneous Notes* Telephone Encounter - Pasha Mendes LPN - 2025 4:40 PM EDT Prescription Refill Information The patient has been identified by name and date of : Yes Caregiver verified no other encounters exist for this prescription request: Yes Caregiver confirmed with patient/requestor that no other refills are due, in the near future, with this provider at this time: Yes The last office visit in the department: 11/07/23 Does the patient have a future office visit with this provider/department: No Requested Prescriptions Pending Prescriptions Disp Refills rosuvastatin (CRESTOR) 5 mg tablet 90 tablet 1 Sig: Take 1 tablet by mouth daily at bedtime. lisinopril (ZESTRIL) 40 mg tablet 30 tablet 0 Sig: Take 1 tablet by mouth once daily. *Last Lisinopril 40mg rx written 01/25/24 #30 with 0 refills. Per pharm dispense report- Petros Cespedes CNP last filled rx on 12/17/24. *Last Crestor 5mg rx written 10/02/23 #90 with 1 refill. Per pharm dispense report- Petros Cespedes CNP wrote for Atorvastatin 10mg on 12/17/24. Pt advised to contact Petros Cespedes's office for medication refills. Pasha Mendes LPN 2025 4:41 PM [facility] encounterF[facility]06-[facility] Telephone encounter Note * Telephone Encounter - Angie Ponce - 03/30/2025 9:07 AM EDT The following medication(s) is being requested: LAST APPT - 11.04.24 NEXT APPT - 03.31.25 tomorrow Requested Prescriptions Pending Prescriptions Disp Refills mirtazapine (REMERON) 30 mg tablet 90 tablet 0 Sig: Take 1 tablet by mouth daily at bedtime. venlafaxine ER (EFFEXOR XR) 150 mg 24 hr capsule 90 capsule 0 Sig: Take 1 capsule by mouth once daily. with 37.5 mg capsule for a total of 187.5 mg daily venlafaxine ER (EFFEXOR XR) 37.5 mg 24 hr capsule 90 capsule 0 Sig: Take 1 capsule by mouth once daily. with 150 mg capsule for a total of 187.5 mg daily gabapentin (NEURONTIN) 100 mg capsule 90 capsule 0 Sig: Take 1 capsule by mouth three times a day as needed (for anxiety) for up to 30 days. traZODone (DESYREL) 100 mg tablet 90 tablet 0 Sig: Take 1 tablet by mouth at bedtime as needed for sedation. Please process accordingly Angie Ponce [facility]06-23-2025 Miscellaneous Notes* Telephone Encounter - Angie Ponce - 03/30/2025 9:07 AM EDT The following medication(s) is being requested: LAST APPT - 11.04.24 NEXT APPT - 03.31.25 tomorrow Requested Prescriptions Pending Prescriptions Disp Refills mirtazapine (REMERON) 30 mg tablet 90 tablet 0 Sig: Take 1 tablet by mouth daily at bedtime. venlafaxine ER (EFFEXOR XR) 150 mg 24 hr capsule 90 capsule 0 Sig: Take 1 capsule by mouth once daily. with 37.5 mg capsule for a total of 187.5 mg daily venlafaxine ER (EFFEXOR XR) 37.5 mg 24 hr capsule 90 capsule 0 Sig: Take 1 capsule by mouth once daily. with 150 mg capsule for a total of 187.5 mg daily gabapentin (NEURONTIN) 100 mg capsule 90 capsule 0 Sig: Take 1 capsule by mouth three times a day as needed (for anxiety) for up to 30 days. traZODone (DESYREL) 100 mg tablet 90 tablet 0 Sig: Take 1 tablet by mouth at bedtime as needed for sedation. Please process accordingly Angie Ponce documented in this encounterFlower [facility]05-12-[facility]25 History of Present illness Narrative* Clary Smith, PROSTHETICS LAB TECHNICIAN-PUBLIC SAFETY TELECOMMUNICATOR, DNP - 02/16/2025 1:45 PM EDT Images from the original note were not included. CHIEF COMPLAINT Referred by PCP, Petros Cespedes, for tachycardia, HTN, and POTS HISTORY OF PRESENT ILLNESS Reinaldo Warren is a 39-year-old female with a history of HTN, DM II, POTS, constipation, fatty liver, low iron, anxiety, depression, PTSD, and mild asthma presenting for CV evaluation at the request of her PCP, Petros Cespedes. Patient previously was followed by [facility] and due to moving to [place], she is establishing care. Patient currently reports daily chest pain that has been going on for years and describes the pain as crushing. She reports episodes lasting for hours. There are no alleviating or aggravating factors. Associated symptoms includes ringing in her ears, lightheadedness, sweating, and occasional shortness of breath. She also reports a hx of syncope and is unsure if triggered by stress-induced seizures or because of low BP. She has had a TILT table in the past confirming POTS diagnosis. She currently reports drinking two bottles of ICE flavored water. She does not wear compression stockings due to discomfort. She currently is not taking her metoprolol and was not quite clear on why she stopped taking the med. Cardiovascular testin-day quality assurance monitor chassis (January,)-predominant rhythm is sinus with average heart rate of 97 bpm; patient was in tachycardia 36% of the time; patient triggers associated with sinus rhythm and tachycardia; SVE and VE burden <1% Past Medical, Surgical, and Family History reviewed and updated in chart. Reviewed all medications by prescribing practitioner or clinical pharmacist (such as prescriptions,OTCs, herbal therapies and supplements) and documented in the medical record. Past Medical History Medical History[1] Social History Social History[2] Family History Family History[3] Allergies: RX Allergies[4] Outpatient Medications: Current Outpatient Medications Medication Instructions ARIPiprazole (ABILIFY) 15 mg, oral, Daily atorvastatin (LIPITOR) 10 mg, oral, Daily calcium carbonate-vitamin D3 (Hi-Link Plus Vit D) 500 mg-5 mcg (200 unit) tablet 1 tablet, oral, 2 times daily empagliflozin (JARDIANCE) 10 mg, oral, Daily gabapentin (NEURONTIN) 100 mg, Every 8 hours PRN metoprolol succinate XL (TOPROL-XL) 25 mg, oral, Daily, Do not crush or chew. mirtazapine (REMERON) 15 mg, oral, Daily pantoprazole (PROTONIX) 20 mg, oral, Daily, Do not crush, chew, or split. traZODone (DESYREL) 100 mg, oral, Nightly Trulicity 0.75 mg, Weekly venlafaxine XR (EFFEXOR-XR) 37.5 mg, oral, Daily, Do not crush or chew. In addition to 150 mg venlafaxine XR (EFFEXOR-XR) 150 mg, oral, Daily, Do not crush or chew. In addition to 37.5 mg Labs: CMP: Recent Labs 02/05/25 1637 01/27/25 0210 12/31/24 1416 12/15/24 0949 11/26/24 1551 10/29/24 1206 07/09/24 1133 NA 134* 137 135* 136 134* < > 135* K 3.8 4.2 3.9 3.9 3.6 < > 4.2 CL 100 103 101 101 101 < > 106 CO2 25 28 22 26 25 < > 22 ANIONGAP 13 10 16 9 12 < > 11 BUN 15 19 18 9 8 < > 12 CREATININE 0.69 0.89 0.88 0.54 0.57 < > 0.63 EGFR >90 85 86 120 >90 < > >90 MG 1.98 2.09 1.70 -- 2.03 -- 1.92 < > = values in this interval not displayed. Recent Labs 01/27/25 0210 12/31/24 1416 12/15/24 0949 11/26/24 1551 10/29/24 1206 12/06/23 0835 12/05/23 2356 ALBUMIN 4.4 4.5 4.2 4.1 4.3 < > 4.9 ALKPHOS 66 64 75 75 77 < > 77 ALT 17 18 15 13 11 < > 19 AST 17 23 13 15 16 < > 19 BILITOT 1.0 1.3* 0.8 0.9 1.1 < > 1.2 LIPASE -- -- -- -- -- -- 16 < > = values in this interval not displayed. CBC: Recent Labs 02/05/25 1637 01/27/25 0210 12/31/24 1416 12/15/24 0949 11/26/24 1552 WBC 7.2 6.3 10.4 5.1 6.8 HGB 13.1 12.2 14.1 13.7 12.6 HCT 37.3 36.3 40.9 40.5 37.0 PLT 235 217 236 236 221 MCV 88 89 86 88.6 85 COAG: Recent Labs 12/31/24 1416 04/06/24 1427 09/24/22 1515 DDIMERVTE 359 653* 531* ABO: No results for input(s): ABO in the last 29648 hours. HEME/ENDO: Recent Labs 12/31/24 1416 12/15/24 0949 04/08/24 0913 05/30/23 1519 05/29/23 1829 02/16/23 1240 09/24/22 1515 FERRITIN -- 21 -- -- -- -- -- IRONSAT -- 16 16* -- -- -- -- TSH 2.18 2.23 2.86 -- -- -- 1.70 HGBA1C -- 7.1* 6.3* 7.6* 7.7* < > -- < > = values in this interval not displayed. CARDIAC: Recent Labs 12/31/24 1416 11/26/24 1551 07/09/24 1224 07/09/24 1133 04/06/24 1538 TROPHS 3 5 3 <3 <3 Recent Labs 12/15/24 0949 04/08/24 0913 CHOL 193 190 HDL 48* 41.0 TRIG 260* 382* MICRO: No results for input(s): ESR, CRP, PROCAL in the last 62724 hours. No results found for the last 90 days. Notable Studies: imaging personally reviewed EKG: Encounter Date: 02/05/25 ECG 12 lead Result Value Ventricular Rate 103 Atrial Rate 104 AK Interval 178 QRS Duration 74 QT Interval 390 QTC Calculation(Bazett) 510 P [place] 13 R [place] 4 T [place] -4 QRS Count 17 Q Onset 222 P Onset 133 P Offset 182 T Offset 417 QTC Fred[place] 467 Narrative Sinus tachycardia Minimal voltage criteria for LVH, may be normal variant ( R in aVL ) Cannot rule out Anteroseptal infarct (cited on or before 23-DEC-2023) Abnormal ECG When compared with ECG of 31-DEC-2024 13:51, Questionable change in initial forces of Septal leads T wave inversion now evident in Inferior leads Nonspecific T wave abnormality now evident in Anterior leads Nonspecific T wave abnormality, improved in Lateral leads See ED provider note for full interpretation and clinical correlation Confirmed by Lyndsay Caal ([id number]) on 02/06/2025 4:59:56 PM Echocardiogram: ECHOCARDIOGRAM Narrative Ordered by an unspecified provider. Stress Testing: No results found for this or any previous visit from the past 1825 days. Cardiac Catheterization: No results found for this or any previous visit from the past 1825 days. No results found for this or any previous visit from the past 3650 days. REVIEW OF SYSTEMS A 10-point system review was completed and was negative except as noted in the HPI. VITALS Vitals: 02/16/25 1354 BP: 142/90 Pulse: 83 SpO2: 98% PHYSICAL EXAM General: awake, alert and oriented. No acute distress. Skin: Skin is warm, dry and intact without rashes or lesions. HEENT: normocephalic, atraumatic; conjunctivae are clear without exudates or hemorrhage. Sclera is non-icteric. Eyelids are normal in appearance without swelling or lesions. Hearing intact. Nares arepatent bilaterally. Moist mucous membranes. Cardiovascular: heart rate and rhythm are normal. No murmurs, gallops, or rubs are auscultated. S1 and S2 are heard and are of normal intensity. Respiratory: bilateral lung sounds clear to auscultations without rales, rhonchi, or wheezes. No accessory muscle use or stridor Musculoskeletal: ROM intact, no deformities Extremities: no swelling Neurological: no focal deficits; gait steady Psychiatric: appropriate mood and affect; good judgment and insight ASSESSMENT AND PLAN Assessment/Plan Diagnoses and all orders for this visit: Abnormal electrocardiogram (ECG) (EKG) Atypical chest pain -Recent EKG suggesting LVH with nonspecific T wave changes. Given symptoms, I will proceed with an echo to rule out any underlying structural abnormalities. I will also order a coronary CTA to rule out any underlying obstructive disease. Patient aware to take extra doses of her BB the night before and morning of the exam POTS (postural orthostatic tachycardia syndrome) -We discussed conservative treatment such as increasing fluid intake aiming for minimum of 2L per day. We discussed triggers -Patient instructed to start taking his BB. Will switch to Toprol XL 25mg daily to decrease pill burden RTC: after testing Thank you for allowing me to participate in the care of this patient. Please reach me out if you have any questions or if you need any clarifications regarding the patient's care. Clary Smith, HERNÁN, PROSTHETICS LAB TECHNICIAN, HOTEL SERVICE SUPERVISOR-C Division of Cardiovascular Medicine [facility] [1] Past Medical History: Diagnosis Date Diabetes mellitus (Multi) Hypertension Personal history of transient ischemic attack (TIA), and cerebral infarction without residual deficits History of cerebrovascular accident Seizures (Multi) [2] Social History Tobacco Use Smoking status: Former Current packs/day: 0.00 Types: Cigarettes Quit date: 2015 Years since quittin.3 Smokeless tobacco: Never Vaping Use Vaping status: Never Used Substance Use Topics Alcohol use: Never Drug use: Never [3] Family History Problem Relation Name Age of Onset Hypertension Mother Diabetes type II Mother Diabetes type II Father Hypertension Father [4] Allergies Allergen Reactions Shellfish Derived Anaphylaxis Amoxicillin Unknown Amoxicillin-Pot Clavulanate Other Bee Venom Protein (Honey Bee) Angioedema and Swelling Clavulanic Acid Unknown Codeine Rash [facility] Work Phone: 1(996) 535-251305-12-2025 Instructions* Patient Instructions* VIKKI Gonzalez DNP - 02/16/2025 1:45 PM EDT I will order an ultrasound of your heart I will also order a cat scan of your coronary arteries; please take two extra doses of your metoprolol the night before your exam and the morning of the exam Increase your hydration aiming for at least 2 liters per day Start taking your metoprolol once daily Follow up after testing [facility] Work Phone: 1(753) 579-488505-01-2025 History of Present illness Narrative* VIKIK Fuentes - 02/05/2025 8:20 AM EDT Subjective Patient ID: Reinaldo Warren is a 39 y.o. female who presents for Follow-up (ER FOLLOW UP). HPI: Presents today for ER FU ON 01/27/25 FOR CONSTIPATION. IT HAS SINCE RESOLVED. SHE WAS TAKING OTC COLACE AND PEPTO FOR HER CONSTIPATION. NO NEW COMPLAINTS. immature granulocytes absolute slightly elevated at 1.1 compared to 1.0 1 month ago. There are current orders to recheck in 1 month at her fu appt in March. Visit Vitals BP 119/77 Pulse 91 Ht 1.6 m (5' 3) Wt 89.1 kg (196 lb 6.4 oz) LMP 01/13/2025 BMI 34.79 kg/m OB Status Having periods Smoking Status Former BSA 1.99 m Review of Systems Constitutional: Negative for chills, fatigue, fever and unexpected weight change. HENT: Negative for congestion, ear pain, sore throat and trouble swallowing. Eyes: Negative for photophobia, pain, redness and visual disturbance. Respiratory: Negative for apnea, cough, choking, chest tightness, shortness of breath and wheezing. Cardiovascular: Negative for chest pain, palpitations and leg swelling. Gastrointestinal: Negative for abdominal distention, abdominal pain, blood in stool, constipation, diarrhea, nausea and vomiting. Genitourinary: Negative for difficulty urinating, dysuria, flank pain, frequency, hematuria and urgency. Musculoskeletal: Negative for arthralgias, back pain, gait problem, joint swelling, myalgias and neck pain. Skin: Negative for rash and wound. Neurological: Negative for dizziness, seizures, syncope, facial asymmetry, speech difficulty, weakness, numbness and headaches. Psychiatric/Behavioral: Negative for confusion, sleep disturbance and suicidal ideas. The patient is not nervous/anxious. Objective [facility] er records reviewed Physical Exam Constitutional: Appearance: Normal appearance. She is normal weight. HENT: Head: Normocephalic. Eyes: Extraocular Movements: Extraocular movements intact. Conjunctiva/sclera: Conjunctivae normal. Pupils: Pupils are equal, round, and reactive to light. Cardiovascular: Rate and Rhythm: Normal rate and regular rhythm. Pulses: Normal pulses. Heart sounds: Normal heart sounds. Pulmonary: Effort: Pulmonary effort is normal. Breath sounds: Normal breath sounds. Musculoskeletal: General: Normal range of motion. Cervical back: Normal range of motion. Skin: General: Skin is warm and dry. Neurological: General: No focal deficit present. Mental Status: She is alert and oriented to person, place, and time. Psychiatric: Mood and Affect: Mood normal. Behavior: Behavior normal. Thought Content: Thought content normal. Judgment: Judgment normal. Assessment/Plan Problem List Items Addressed This Visit Constipation - Primary WE DISCUSSED THE PEPTO CAN CAUSE CONSTIPATION AND SHOULD BE AVOIDED WHEN ALREADY CONSTIPATED. PLEASE MONITOR CLOSELY FOR ANY UNTOWARD SIDE EFFECTS OR COMPLICATIONS OF MEDICATIONS. PATIENT IS STRONGLY ADVISED TO BE COMPLIANT WITH RECOMMENDATIONS. QUESTIONS AND CONCERNS WERE ADDRESSED. INSTRUCTED TO CALL, RETURN SOONER, OR GO TO THE ER, IF SYMPTOMS PERSIST OR WORSEN. THEY VOICED UNDERSTANDINGAND DENIES FURTHER QUESTIONS AT THIS TIME. TIME CODE 1. PREPARATION FOR PATIENT'S VISIT (REVIEWING CHART, CURRENT MEDICAL RECORDS, OUTSIDE HEALTH PROVIDER RECORDS, PREVIOUS HISTORY, EXAM, TEST, PROCEDURE, AND MEDICATIONS) 2. FACE TO FACE ENCOUNTER OBTAINING HISTORY FROM THE PATIENT/FAMILY/CAREGIVERS; PERFORMING EVALUATION AND EXAMINATION; ORDERING TESTS OR PROCEDURES; REFERRING AND COMMUNICATING WITH OTHER HEALTHCARE PROVIDERS; COUNSELING AND EDUCATION OF THE PATIENT/FAMILY/CAREGIVERS; INDEPENDENTLY INTERPRETING RESULTS (TESTS, LABS, PROCEDURES, IMAGING) AND COMMUNICATING AND EXPLAINING RESULTS TO THE PATIENT/FAMILY/CAREGIVERS 3. COORDINATION OF CARE; PREPARING AND PRINTING DISCHARGE INSTRUCTIONS AND ANY EDUCATIONAL MATERIALFOR THE PATIENT/FAMILY/CAREGIVERS. DOCUMENTING CLINICAL INFORMATION IN THE ELECTRONIC MEDICAL RECORD 4. REVIEWING OARRS NEEDED MDM 1) COMPLEXITY: 1 ACUTE ILLNESS, 1 STABLE CHRONIC CONDITION, OR 2 MINOR PROBLEMS ADDRESSED 2)DATA: TESTS INTERPRETED AND OR ORDERED, TOOK INDEPENDENT HISTORY OR RECORDS REVIEWED 3)RISK: LOW RISK DUE TO NATURE OF MEDICAL CONDITIONS/COMORBIDITY OR MEDICATIONS ORDERED OR SURGICALOR PROCEDURE REFERRAL Follow up as before documented in this [facility] Work Phone: 1(633) 721-597604-22-2025 Physician Emergency department Note* Ania Dahiana Kalani, - 01/27/2025 2:26 AM EDT HPI Chief Complaint Patient presents with Abdominal Pain Abd pain and cramping. States she hasn't had bowel movement since , has used laxatives and stool softeners. Hx of bowel obstruction in past. 39-year-old female presents with suprapubic abdominal pain associate with constipation. Patient states she has not had a bowel movement since yesterday. Has been trying some [id number] laxatives with no improvement. She is complaining of some associated nausea with symptoms. Denies any fever or chills. Denies any dysuria or hematuria. Patient did get improvement with IV pantoprazole and Zofran. I did go over all the results with the patient and she will be discharged with a dose of magnesium citrate. History provided by: Patient Patient History Medical History[1] Surgical History[2] Family History[3] Social History[4] Physical Exam ED Triage Vitals [01/27/25 0148] Temperature Heart Rate Respirations BP 36.5 C (97.7 F) 96 18 (!) 158/104 Pulse Ox Temp src Heart Rate Source Patient Position 99 % -- -- -- BP Location FiO2 (%) -- -- Physical Exam Vitals and nursing note reviewed. Constitutional: General: She is not in acute distress. Appearance: She is well-developed. HENT: Head: Normocephalic and atraumatic. Eyes: Conjunctiva/sclera: Conjunctivae normal. Cardiovascular: Rate and Rhythm: Normal rate and regular rhythm. Heart sounds: No murmur heard. Pulmonary: Effort: Pulmonary effort is normal. No respiratory distress. Breath sounds: Normal breath sounds. Abdominal: Palpations: Abdomen is soft. Tenderness: There is abdominal tenderness in the periumbilical area. Musculoskeletal: General: No swelling. Cervical back: Neck supple. Skin: General: Skin is warm and dry. Capillary Refill: Capillary refill takes less than 2 seconds. Neurological: Mental Status: She is alert. Psychiatric: Mood and Affect: Mood normal. Labs Reviewed CBC WITH AUTO DIFFERENTIAL - Abnormal Result Value WBC 6.3 nRBC 0.0 RBC 4.06 Hemoglobin 12.2 Hematocrit 36.3 MCV 89 MCH 30.0 MCHC 33.6 RDW 15.3 (*) Platelets 217 Neutrophils % 57.5 Immature Granulocytes %, Automated 1.1 (*) Lymphocytes % 34.7 Monocytes % 6.2 Eosinophils % 0.0 Basophils % 0.5 Neutrophils Absolute 3.59 Immature Granulocytes Absolute, Automated 0.07 Lymphocytes Absolute 2.17 Monocytes Absolute 0.39 Eosinophils Absolute 0.00 Basophils Absolute 0.03 COMPREHENSIVE METABOLIC PANEL - Abnormal Glucose 169 (*) Sodium 137 Potassium 4.2 Chloride 103 Bicarbonate 28 Anion Gap 10 Urea Nitrogen 19 Creatinine 0.89 eGFR 85 Calcium 9.2 Albumin 4.4 Alkaline Phosphatase 66 Total Protein 7.0 AST 17 Bilirubin, Total 1.0 ALT 17 URINALYSIS WITH REFLEX CULTURE AND MICROSCOPIC - Abnormal Color, Urine Light-Yellow Appearance, Urine Clear Specific [place], Urine 1.028 pH, Urine 7.5 Protein, Urine 20 (TRACE) Glucose, Urine 300 (3+) (*) Blood, Urine NEGATIVE Ketones, Urine NEGATIVE Bilirubin, Urine NEGATIVE Urobilinogen, Urine 3 (1+) (*) Nitrite, Urine NEGATIVE Leukocyte Esterase, Urine NEGATIVE MAGNESIUM - Normal Magnesium 2.09 LACTATE - Normal Lactate 1.2 Narrative: Venipuncture immediately after or during the administration of Metamizole may lead to falsely low results. Testing should be performed immediately prior to Metamizole dosing. URINALYSIS WITH REFLEX CULTURE AND MICROSCOPIC Narrative: The following orders were created for panel order Urinalysis with Reflex Culture and Microscopic. Procedure Abnormality Status --------- ------ Urinalysis with Reflex C...[[id number]] Abnormal Final result Extra Urine Weber Tube[[id number]] In process Please view results for these tests on the individual orders. EXTRA URINE WEBER TUBE URINALYSIS MICROSCOPIC WITH REFLEX CULTURE WBC, Urine NONE RBC, Urine NONE Squamous Epithelial Cells, Urine 1-9 (SPARSE) Mucus, Urine FEW Amorphous Crystals, Urine 1+ ED Course & MDM Diagnoses as of 01/27/25324 Constipation, unspecified constipation type No data recorded [place] Coma Scale Score: 15 (01/27/25 0216 : Fuentes Zeng, KALEN) Medical Decision Making 1 take medication as prescribed 2 follow-up with family medical doctor this week, if symptoms worsen return to ED. Procedure Procedures [1] Past Medical History: Diagnosis Date Diabetes mellitus (Multi) Hypertension Personal history of transient ischemic attack (TIA), and cerebral infarction without residual deficits History of cerebrovascular accident Seizures (Multi) [2] Past Surgical History: Procedure Laterality Date SECTION, LOW TRANSVERSE OTHER SURGICAL HISTORY 02/11/2020 Cholecystectomy [3] Family History Problem Relation Name Age of Onset Hypertension Mother Diabetes type II Mother Diabetes type II Father Hypertension Father [4] Social History Tobacco Use Smoking status: Former Current packs/day: 0.00 Types: Cigarettes Quit date: 2016 Years since quittin.3 Smokeless tobacco: Never Vaping Use Vaping status: Never Used Substance Use Topics Alcohol use: Never Drug use: Never Ania Uriarte DO 01/27/25324 [facility] Work Phone: 1(256) 525-847204-22-2025 Emergency department Note* Ania Uriarte DO - 01/27/2025 2:26 AM EDT HPI Chief Complaint Patient presents with Abdominal Pain Abd pain and cramping. States she hasn't had bowel movement since , has used laxatives and stool softeners. Hx of bowel obstruction in past. 39-year-old female presents with suprapubic abdominal pain associate with constipation. Patient states she has not had a bowel movement since yesterday. Has been trying some [id number] laxatives with no improvement. She is complaining of some associated nausea with symptoms. Denies any fever or chills. Denies any dysuria or hematuria. Patient did get improvement with IV pantoprazole and Zofran. I did go over all the results with the patient and she will be discharged with a dose of magnesium citrate. History provided by: Patient Patient History Medical History[1] Surgical History[2] Family History[3] Social History[4] Physical Exam ED Triage Vitals [01/27/25 0148] Temperature Heart Rate Respirations BP 36.5 C (97.7 F) 96 18 (!) 158/104 Pulse Ox Temp src Heart Rate Source Patient Position 99 % -- -- -- BP Location FiO2 (%) -- -- Physical Exam Vitals and nursing note reviewed. Constitutional: General: She is not in acute distress. Appearance: She is well-developed. HENT: Head: Normocephalic and atraumatic. Eyes: Conjunctiva/sclera: Conjunctivae normal. Cardiovascular: Rate and Rhythm: Normal rate and regular rhythm. Heart sounds: No murmur heard. Pulmonary: Effort: Pulmonary effort is normal. No respiratory distress. Breath sounds: Normal breath sounds. Abdominal: Palpations: Abdomen is soft. Tenderness: There is abdominal tenderness in the periumbilical area. Musculoskeletal: General: No swelling. Cervical back: Neck supple. Skin: General: Skin is warm and dry. Capillary Refill: Capillary refill takes less than 2 seconds. Neurological: Mental Status: She is alert. Psychiatric: Mood and Affect: Mood normal. Labs Reviewed CBC WITH AUTO DIFFERENTIAL - Abnormal Result Value WBC 6.3 nRBC 0.0 RBC 4.06 Hemoglobin 12.2 Hematocrit 36.3 MCV 89 MCH 30.0 MCHC 33.6 RDW 15.3 (*) Platelets 217 Neutrophils % 57.5 Immature Granulocytes %, Automated 1.1 (*) Lymphocytes % 34.7 Monocytes % 6.2 Eosinophils % 0.0 Basophils % 0.5 Neutrophils Absolute 3.59 Immature Granulocytes Absolute, Automated 0.07 Lymphocytes Absolute 2.17 Monocytes Absolute 0.39 Eosinophils Absolute 0.00 Basophils Absolute 0.03 COMPREHENSIVE METABOLIC PANEL - Abnormal Glucose 169 (*) Sodium 137 Potassium 4.2 Chloride 103 Bicarbonate 28 Anion Gap 10 Urea Nitrogen 19 Creatinine 0.89 eGFR 85 Calcium 9.2 Albumin 4.4 Alkaline Phosphatase 66 Total Protein 7.0 AST 17 Bilirubin, Total 1.0 ALT 17 URINALYSIS WITH REFLEX CULTURE AND MICROSCOPIC - Abnormal Color, Urine Light-Yellow Appearance, Urine Clear Specific [place], Urine 1.028 pH, Urine 7.5 Protein, Urine 20 (TRACE) Glucose, Urine 300 (3+) (*) Blood, Urine NEGATIVE Ketones, Urine NEGATIVE Bilirubin, Urine NEGATIVE Urobilinogen, Urine 3 (1+) (*) Nitrite, Urine NEGATIVE Leukocyte Esterase, Urine NEGATIVE MAGNESIUM - Normal Magnesium 2.09 LACTATE - Normal Lactate 1.2 Narrative: Venipuncture immediately after or during the administration of Metamizole may lead to falsely low results. Testing should be performed immediately prior to Metamizole dosing. URINALYSIS WITH REFLEX CULTURE AND MICROSCOPIC Narrative: The following orders were created for panel order Urinalysis with Reflex Culture and Microscopic. Procedure Abnormality Status --------- ------ Urinalysis with Reflex C...[[id number]] Abnormal Final result Extra Urine Weber Tube[[id number]] In process Please view results for these tests on the individual orders. EXTRA URINE WEBER TUBE URINALYSIS MICROSCOPIC WITH REFLEX CULTURE WBC, Urine NONE RBC, Urine NONE Squamous Epithelial Cells, Urine 1-9 (SPARSE) Mucus, Urine FEW Amorphous Crystals, Urine 1+ ED Course & MDM Diagnoses as of 01/27/25 0325 Constipation, unspecified constipation type No data recorded [place] Coma Scale Score: 15 (01/27/25 0216 : Fuentes Zeng, KALEN) Medical Decision Making 1 take medication as prescribed 2 follow-up with family medical doctor this week, if symptoms worsen return to ED. Procedure Procedures [1] Past Medical History: Diagnosis Date Diabetes mellitus (Multi) Hypertension Personal history of transient ischemic attack (TIA), and cerebral infarction without residual deficits History of cerebrovascular accident Seizures (Multi) [2] Past Surgical History: Procedure Laterality Date SECTION, LOW TRANSVERSE OTHER SURGICAL HISTORY 02/11/2020 Cholecystectomy [3] Family History Problem Relation Name Age of Onset Hypertension Mother Diabetes type II Mother Diabetes type II Father Hypertension Father [4] Social History Tobacco Use Smoking status: Former Current packs/day: 0.00 Types: Cigarettes Quit date: 2015 Years since quittin.3 Smokeless tobacco: Never Vaping Use Vaping status: Never Used Substance Use Topics Alcohol use: Never Drug use: Never Ania Uriarte DO 01/27/25 0325 [facility] Work Phone: 1(645) 681-141704-14-2025 Telephone encounter Note* Telephone Encounter - Agnieszka Hughes - 01/19/2025 8:43 AM EDT [employer] message sent to patient requesting a follow up. The following medication(s) is being requested: LAST APPT - 08/14/2024 NEXT APPT - None scheduled Requested Prescriptions Pending Prescriptions Disp Refills mirtazapine (REMERON) 30 mg tablet 90 tablet 0 Sig: Take 1 tablet by mouth daily at bedtime. venlafaxine ER (EFFEXOR XR) 150 mg 24 hr capsule 90 capsule 0 Sig: Take 1 capsule by mouth once daily. with 37.5 mg capsule for a total of 187.5 mg daily venlafaxine ER (EFFEXOR XR) 37.5 mg 24 hr capsule 90 capsule 0 Sig: Take 1 capsule by mouth once daily. with 150 mg capsule for a total of 187.5 mg daily gabapentin (NEURONTIN) 100 mg capsule 90 capsule 0 Sig: Take 1 capsule by mouth three times a day as needed (for anxiety) for up to 30 days. traZODone (DESYREL) 100 mg tablet 90 tablet 0 Sig: Take 1 tablet by mouth at bedtime as needed for sedation. Please process accordingly Agnieszka Hughes [facility]04-14-2025 Miscellaneous Notes* Telephone Encounter - Agnieszka Hughes - 01/19/2025 8:43 AM EDT Avancert message sent to patient requesting a follow up. The following medication(s) is being requested: LAST APPT - 08/14/2024 NEXT APPT - None scheduled Requested Prescriptions Pending Prescriptions Disp Refills mirtazapine (REMERON) 30 mg tablet 90 tablet 0 Sig: Take 1 tablet by mouth daily at bedtime. venlafaxine ER (EFFEXOR XR) 150 mg 24 hr capsule 90 capsule 0 Sig: Take 1 capsule by mouth once daily. with 37.5 mg capsule for a total of 187.5 mg daily venlafaxine ER (EFFEXOR XR) 37.5 mg 24 hr capsule 90 capsule 0 Sig: Take 1 capsule by mouth once daily. with 150 mg capsule for a total of 187.5 mg daily gabapentin (NEURONTIN) 100 mg capsule 90 capsule 0 Sig: Take 1 capsule by mouth three times a day as needed (for anxiety) for up to 30 days. traZODone (DESYREL) 100 mg tablet 90 tablet 0 Sig: Take 1 tablet by mouth at bedtime as needed for sedation. Please process accordingly Agnieszka Hughes [facility] History of Present illness Narrative* Petros Cespedes, PROSTHETICS LAB TECHNICIAN-PUBLIC SAFETY TELECOMMUNICATOR - 01/14/2025 9:00 AM EDT Subjective Patient ID: Reinaldo Warren is a 39 y.o. female who presents for Follow-up (BP CK). HPI: Presents today for BP CHECK. SHE WENT TO ER ON 01/01/24 FOR TACHYCARDIA AND DIZZINESS. NO CP OR SOB CURRENTLY. HER HR REMAIN ABOVE 100. SHE SAHU HAVE POTS. NO FURTHER COMPLAINTS NA+- CUT BACK ON FLUIDS PER DAY Visit Vitals BP 127/89 Pulse 108 Ht 1.6 m (5' 3) Wt 89.1 kg (196 lb 6.4 oz) BMI 34.79 kg/m OB Status Having periods Smoking Status Former BSA 1.99 m Review of Systems Constitutional: Negative for chills, fatigue, fever and unexpected weight change. HENT: Negative for congestion, ear pain, sore throat and trouble swallowing. Eyes: Negative for photophobia, pain, redness and visual disturbance. Respiratory: Negative for apnea, cough, choking, chest tightness, shortness of breath and wheezing. Cardiovascular: Negative for chest pain, palpitations and leg swelling. Gastrointestinal: Negative for abdominal distention, abdominal pain, blood in stool, constipation, diarrhea, nausea and vomiting. Genitourinary: Negative for difficulty urinating, dysuria, flank pain, frequency, hematuria and urgency. Musculoskeletal: Negative for arthralgias, back pain, gait problem, joint swelling, myalgias and neck pain. Skin: Negative for rash and wound. Neurological: Negative for dizziness, seizures, syncope, facial asymmetry, speech difficulty, weakness, numbness and headaches. Psychiatric/Behavioral: Negative for confusion, sleep disturbance and suicidal ideas. The patient is not nervous/anxious. Objective ER RECORDS REVIEWED Physical Exam Constitutional: Appearance: Normal appearance. She is normal weight. HENT: Head: Normocephalic. Eyes: Extraocular Movements: Extraocular movements intact. Conjunctiva/sclera: Conjunctivae normal. Pupils: Pupils are equal, round, and reactive to light. Cardiovascular: Rate and Rhythm: Normal rate and regular rhythm. Pulses: Normal pulses. Heart sounds: Normal heart sounds. Pulmonary: Effort: Pulmonary effort is normal. Breath sounds: Normal breath sounds. Musculoskeletal: General: Normal range of motion. Cervical back: Normal range of motion. Skin: General: Skin is warm and dry. Neurological: General: No focal deficit present. Mental Status: She is alert and oriented to person, place, and time. Psychiatric: Mood and Affect: Mood normal. Behavior: Behavior normal. Thought Content: Thought content normal. Judgment: Judgment normal. Assessment/Plan Problem List Items Addressed This Visit POTS (postural orthostatic tachycardia syndrome) Relevant Medications metoprolol tartrate (Lopressor) 25 mg tablet Other Relevant Orders Referral to Cardiology Hypertension associated with type 2 diabetes mellitus Relevant Medications metoprolol tartrate (Lopressor) 25 mg tablet Other Relevant Orders Holter or Event Sociology Research Assistant Referral to Cardiology Low serum vitamin B12 Relevant Medications cyanocobalamin (Vitamin B-12) injection 1,000 mcg (Completed) Other Visit Diagnoses Shortness of breath - Primary Dizziness Tachycardia Relevant Medications metoprolol tartrate (Lopressor) 25 mg tablet Other Relevant Orders Holter or Event Sociology Research Assistant Referral to Cardiology I WILL ORDER A HOLTER AND REFER HER TO CARDIO. STOP LISINOPRIL, START METOPROLOL AND MONITOR BP ANDHR. WE DISCUSSED MOST COMMON SIDE EFFECTS OF PRESCRIBED MEDICATIONS. INDICATIONS, RISK, COMPLICATIONS, AND ALTERNATIVES OF MEDICATION/THERAPEUTICS WERE EXPLAINED AND DISCUSSED. PLEASE MONITOR CLOSELY FORANY UNTOWARD SIDE EFFECTS OR COMPLICATIONS OF MEDICATIONS. PATIENT IS STRONGLY ADVISED TO BE COMPLIANT WITH RECOMMENDATIONS. QUESTIONS AND CONCERNS WERE ADDRESSED. INSTRUCTED TO CALL, RETURN SOONER, OR GO TO THE ER, IF SYMPTOMS PERSIST OR WORSEN. THEY VOICED UNDERSTANDING AND DENIES FURTHER QUESTIONS AT THIS TIME. TIME CODE 1. PREPARATION FOR PATIENT'S VISIT (REVIEWING CHART, CURRENT MEDICAL RECORDS, OUTSIDE HEALTH PROVIDER RECORDS, PREVIOUS HISTORY, EXAM, TEST, PROCEDURE, AND MEDICATIONS) 2. FACE TO FACE ENCOUNTER OBTAINING HISTORY FROM THE PATIENT/FAMILY/CAREGIVERS; PERFORMING EVALUATION AND EXAMINATION; ORDERING TESTS OR PROCEDURES; REFERRING AND COMMUNICATING WITH OTHER HEALTHCARE PROVIDERS; COUNSELING AND EDUCATION OF THE PATIENT/FAMILY/CAREGIVERS; INDEPENDENTLY INTERPRETING RESULTS (TESTS, LABS, PROCEDURES, IMAGING) AND COMMUNICATING AND EXPLAINING RESULTS TO THE PATIENT/FAMILY/CAREGIVERS 3. COORDINATION OF CARE; PREPARING AND PRINTING DISCHARGE INSTRUCTIONS AND ANY EDUCATIONAL MATERIALFOR THE PATIENT/FAMILY/CAREGIVERS. DOCUMENTING CLINICAL INFORMATION IN THE ELECTRONIC MEDICAL RECORD 4. REVIEWING OARRS NEEDED MDM 1) COMPLEXITY: MORE THAN 1 STABLE CHRONIC CONDITION ADDRESSED OR 1 ACUTE ILLNESS ADDRESSED 2)DATA: TESTS INTERPRETED AND OR ORDERED, TOOK INDEPENDENT HISTORY OR RECORDS REVIEWED 3)RISK: MODERATE RISK DUE TO NATURE OF MEDICAL CONDITIONS/COMORBIDITY OR MEDICATIONS ORDERED OR SURGICAL OR PROCEDURE REFERRAL AFTER CARDIO REFERRAL documented in [facility] Work Phone: [phone]) [phone] Physician Emergency department Note* Wolf Marin, - 12/31/2024 2:01 PM EDTAssociated Order(s): ECG 12 lead HPI Chief Complaint Patient presents with Shortness of Breath Patient reports while at work she became dizzy, sob, went away for about an hour and it came back. Patient is hyperventilating and reports her hands and face have tingling. Patient denies cough/congest/fever or pain Limitations to History: None HPI: 39-year-old female presents with shortness of breath, dizziness, tingling. States that this began approximate 3 hours ago. Had gone away but is now come back. History of previous episodes related to her POTS. Denies any chest pain, fever, chills, nausea, vomiting, diarrhea, abdominal pain, urinary symptoms. Physical Exam: VS: As documented in the triage note and EMR flowsheet from this visit were reviewed. Appearance: Alert. cooperative, in no acute distress. Skin: Intact, dry skin, no lesions, rash, petechiae or purpura. Eyes: PERRLA, EOMs intact, Conjunctiva pink with no redness or exudates. HENT: Normocephalic, atraumatic. Nares patent. No intraoral lesions. Neck: Supple, without meningismus. Trachea at midline. No lymphadenopathy. Pulmonary: Clear bilaterally with good chest wall excursion. No rales, rhonchi or wheezing. No accessory muscle use or stridor. Cardiac: Tachycardic and regular rhythm, no rubs, murmurs, or gallops. Abdomen: Abdomen is soft, nontender, and nondistended. No palpable organomegaly. No rebound or guarding. No CVA tenderness. Nonsurgical abdomen. Genitourinary: Exam deferred. Musculoskeletal: Full range of motion. Pulses full and equal. No cyanosis, clubbing, or edema. Neurological: Cranial nerves are grossly intact, grossly normal sensation, no weakness, no focal findings identified. Psychiatric: Appropriate mood and affect. Patient History Past Medical History: Diagnosis Date Diabetes mellitus (Multi) Hypertension Personal history of transient ischemic attack (TIA), and cerebral infarction without residual deficits History of cerebrovascular accident Seizures (Multi) Past Surgical History: Procedure Laterality Date SECTION, LOW TRANSVERSE OTHER SURGICAL HISTORY 02/11/2020 Cholecystectomy Family History Problem Relation Name Age of Onset Hypertension Mother Diabetes type II Mother Diabetes type II Father Hypertension Father Social History Tobacco Use Smoking status: Former Current packs/day: 0.00 Types: Cigarettes Quit date: 2015 Years since quittin.2 Smokeless tobacco: Never Vaping Use Vaping status: Never Used Substance Use Topics Alcohol use: Never Drug use: Never Physical Exam ED Triage Vitals [12/31/24 1354] Temperature Heart Rate Respirations BP 36.4 C (97.6 F) (!) 135 (!) 26 105/77 Pulse Ox Temp Source Heart Rate Source Patient Position 100 % Temporal -- -- BP Location FiO2 (%) -- -- Physical Exam ED Course & MDM Diagnoses as of 12/31/24 1537 Shortness of breath Dizziness Tachycardia No data recorded [place] Coma Scale Score: 15 (12/31/24 1355 : Anne Marie Camara RN) Medical Decision Making Labs Reviewed CBC WITH AUTO DIFFERENTIAL - Abnormal WBC 10.4 nRBC 0.0 RBC 4.77 Hemoglobin 14.1 Hematocrit 40.9 MCV 86 MCH 29.6 MCHC 34.5 RDW 15.9 (*) Platelets 236 Neutrophils % 64.4 Immature Granulocytes %, Automated 1.0 (*) Lymphocytes % 27.5 Monocytes % 6.5 Eosinophils % 0.1 Basophils % 0.5 Neutrophils Absolute 6.69 Immature Granulocytes Absolute, Au* 0.10 Lymphocytes Absolute 2.85 Monocytes Absolute 0.67 Eosinophils Absolute 0.01 Basophils Absolute 0.05 COMPREHENSIVE METABOLIC PANEL - Abnormal Glucose 239 (*) Sodium 135 (*) Potassium 3.9 Chloride 101 Bicarbonate 22 Anion Gap 16 Urea Nitrogen 18 Creatinine 0.88 eGFR 86 Calcium 9.8 Albumin 4.5 Alkaline Phosphatase 64 Total Protein 7.4 AST 23 Bilirubin, Total 1.3 (*) ALT 18 MAGNESIUM - Normal Magnesium 1.70 TROPONIN I, HIGH SENSITIVITY - Normal Troponin I, High Sensitivity 3 Narrative: Less than 99th percentile of normal range cutoff- Female and children under 18 years old <14 ng/L; Male <21 ng/L: Negative Repeat testing should be performed if clinically indicated. Female and children under 18 years old 14-50 ng/L; Male 21-50 ng/L: Consistent with possible cardiac damage and possible increased clinical risk. Serial measurements may help to assess extent of myocardial damage. >50 ng/L: Consistent with cardiac damage, increased clinical risk and myocardial infarction. Serial measurements may help assess extent of myocardial damage. NOTE: Children less than 1 year old may have higher baseline troponin levels and results should be interpreted in conjunction with the overall clinical context. NOTE: Troponin I testing is performed using a different testing methodology at [facility] than at other legacy [facility]. Direct result comparisons should only be made within the same method. D-DIMER, VTE EXCLUSION - Normal D-Dimer, Quantitative VTE Exclusion 359 Narrative: The VTE Exclusion D-Dimer assay is reported in ng/mL Fibrinogen Equivalent Units (FEU). Per seafood specialist's instructions for use, a value of less than 500 ng/mL (FEU) may help to exclude DVT or PE in outpatients when the assay is used with a clinical pretest probability assessment.([facility] must utilize and document eCalc 'Wells Score Deep Vein Thrombosis Risk' for DVT exclusion only. Emergency Department should utilize Guidelines for Emergency Department Use of the VTE Exclusion D-Dimer and Clinical Pretest probability assessment model for DVT or PE exclusion.) SARS-COV-2 PCR - Normal Coronavirus 2019, PCR Narrative: This assay is an FDA-cleared, in vitro diagnostic nucleic acid amplification test for the qualitative detection and differentiation of SARS CoV-2 from nasopharyngeal specimens collected from individuals with signs and symptoms of respiratory tract infections, and has been validated for use at [facility]. Negative results do not preclude COVID-19 infections and should not be used as the sole basis for diagnosis, treatment, or other management decisions. Testingfor SARS CoV-2 is recommended only for patients who meet current clinical and/or epidemiological criteria defined by federal, state, or local public health directives. INFLUENZA A AND B PCR - Normal Flu A Result Flu B Result Narrative: This assay is an in vitro diagnostic multiplex nucleic acid amplification test for the detection and discrimination of Influenza A & B from nasopharyngeal specimens, and has been validated for use at [facility]. Negative results do not preclude Influenza A/B infections, and should not be used as the sole basis for diagnosis, treatment, or other management decisions. If Influenza A/B and RSV PCR results are negative, testing for Parainfluenza virus, Adenovirus and Metapneumovirus is routinely performed for [facility] pediatric oncology and intensive care inpatients, and is available on other patients by placing an add-on request. TSH WITH REFLEX TO FREE T4 IF ABNORMAL - Normal Thyroid Stimulating Hormone 2.18 Narrative: TSH testing is performed using different testing methodology [facility]. Direct result comparisons should only be made within the same method. URINALYSIS WITH REFLEX CULTURE AND MICROSCOPIC Narrative: The following orders were created for panel order Urinalysis with Reflex Culture and Microscopic. Procedure Abnormality Status --------- ------ Urinalysis with Reflex C...[[id number]] Extra Urine Weber Tube[[id number]] Please view results for these tests on the individual orders. URINALYSIS WITH REFLEX CULTURE AND MICROSCOPIC EXTRA URINE WEBER TUBE XR chest 1 view Final Result 1. No evidence of acute cardiopulmonary process. MACRO: None Signed by: Jose Luis Winchester 12/31/2024 2:29 PM Dictation workstation: [id number] Medical Decision Making: Patient appears well nontoxic. Tachycardic upon arrival. No evidence of ischemia. Lab work including troponin as well as D-dimer negative. Patient treated with 1 L of normal saline. NIH of 0. On reevaluation patient feeling improved and heart rate 98. Advised on continued oral hydration and follow-up with primary care. Stable at time of discharge. Differential Diagnoses Considered: Volume depletion, electrolyte abnormality, POTS, ACS, pulmonary embolism, anxiety Independent Interpretation of Studies: I independently interpreted: Chest x-ray shows no evidence of pneumonia or pneumothorax. Escalation of Care: Appropriate for discharge and follow-up with primary care. Procedure ECG 12 lead Performed by: Wolf Marin DO Authorized by: Wlof Marin DO ECG interpreted by ED Physician in the absence of a building construction estimator: yes Comments: EKG interpreted by Dr. Wolf Marin: Sinus tachycardia 128 bpm. AK interval 124 ms. QTc of 438ms. Nonspecific ST changes. Wolf Marin DO 12/31/24 1538 [facility] Work Phone: 1(434) [phone] Emergency department Note* Wolf Marin DO - 12/31/2024 2:01 PM EDTAssociated Order(s): ECG 12 lead HPI Chief Complaint Patient presents with Shortness of Breath Patient reports while at work she became dizzy, sob, went away for about an hour and it came back. Patient is hyperventilating and reports her hands and face have tingling. Patient denies cough/congest/fever or pain Limitations to History: None HPI: 39-year-old female presents with shortness of breath, dizziness, tingling. States that this began approximate 3 hours ago. Had gone away but is now come back. History of previous episodes related to her POTS. Denies any chest pain, fever, chills, nausea, vomiting, diarrhea, abdominal pain, urinary symptoms. Physical Exam: VS: As documented in the triage note and EMR flowsheet from this visit were reviewed. Appearance: Alert. cooperative, in no acute distress. Skin: Intact, dry skin, no lesions, rash, petechiae or purpura. Eyes: PERRLA, EOMs intact, Conjunctiva pink with no redness or exudates. HENT: Normocephalic, atraumatic. Nares patent. No intraoral lesions. Neck: Supple, without meningismus. Trachea at midline. No lymphadenopathy. Pulmonary: Clear bilaterally with good chest wall excursion. No rales, rhonchi or wheezing. No accessory muscle use or stridor. Cardiac: Tachycardic and regular rhythm, no rubs, murmurs, or gallops. Abdomen: Abdomen is soft, nontender, and nondistended. No palpable organomegaly. No rebound or guarding. No CVA tenderness. Nonsurgical abdomen. Genitourinary: Exam deferred. Musculoskeletal: Full range of motion. Pulses full and equal. No cyanosis, clubbing, or edema. Neurological: Cranial nerves are grossly intact, grossly normal sensation, no weakness, no focal findings identified. Psychiatric: Appropriate mood and affect. Patient History Past Medical History: Diagnosis Date Diabetes mellitus (Multi) Hypertension Personal history of transient ischemic attack (TIA), and cerebral infarction without residual deficits History of cerebrovascular accident Seizures (Multi) Past Surgical History: Procedure Laterality Date SECTION, LOW TRANSVERSE OTHER SURGICAL HISTORY 02/11/2020 Cholecystectomy Family History Problem Relation Name Age of Onset Hypertension Mother Diabetes type II Mother Diabetes type II Father Hypertension Father Social History Tobacco Use Smoking status: Former Current packs/day: 0.00 Types: Cigarettes Quit date: 2016 Years since quittin.2 Smokeless tobacco: Never Vaping Use Vaping status: Never Used Substance Use Topics Alcohol use: Never Drug use: Never Physical Exam ED Triage Vitals [12/31/24 1354] Temperature Heart Rate Respirations BP 36.4 C (97.6 F) (!) 135 (!) 26 105/77 Pulse Ox Temp Source Heart Rate Source Patient Position 100 % Temporal -- -- BP Location FiO2 (%) -- -- Physical Exam ED Course & MDM Diagnoses as of 12/31/24 1537 Shortness of breath Dizziness Tachycardia No data recorded Rosa Coma Scale Score: 15 (12/31/24 1355 : Anne Marie Camara RN) Medical Decision Making Labs Reviewed CBC WITH AUTO DIFFERENTIAL - Abnormal WBC 10.4 nRBC 0.0 RBC 4.77 Hemoglobin 14.1 Hematocrit 40.9 MCV 86 MCH 29.6 MCHC 34.5 RDW 15.9 (*) Platelets 236 Neutrophils % 64.4 Immature Granulocytes %, Automated 1.0 (*) Lymphocytes % 27.5 Monocytes % 6.5 Eosinophils % 0.1 Basophils % 0.5 Neutrophils Absolute 6.69 Immature Granulocytes Absolute, Au* 0.10 Lymphocytes Absolute 2.85 Monocytes Absolute 0.67 Eosinophils Absolute 0.01 Basophils Absolute 0.05 COMPREHENSIVE METABOLIC PANEL - Abnormal Glucose 239 (*) Sodium 135 (*) Potassium 3.9 Chloride 101 Bicarbonate 22 Anion Gap 16 Urea Nitrogen 18 Creatinine 0.88 eGFR 86 Calcium 9.8 Albumin 4.5 Alkaline Phosphatase 64 Total Protein 7.4 AST 23 Bilirubin, Total 1.3 (*) ALT 18 MAGNESIUM - Normal Magnesium 1.70 TROPONIN I, HIGH SENSITIVITY - Normal Troponin I, High Sensitivity 3 Narrative: Less than 99th percentile of normal range cutoff- Female and children under 18 years old <14 ng/L; Male <21 ng/L: Negative Repeat testing should be performed if clinically indicated. Female and children under 18 years old 14-50 ng/L; Male 21-50 ng/L: Consistent with possible cardiac damage and possible increased clinical risk. Serial measurements may help to assess extent of myocardial damage. >50 ng/L: Consistent with cardiac damage, increased clinical risk and myocardial infarction. Serial measurements may help assess extent of myocardial damage. NOTE: Children less than 1 year old may have higher baseline troponin levels and results should be interpreted in conjunction with the overall clinical context. NOTE: Troponin I testing is performed using a different testing methodology at [facility] than at [facility]. Direct result comparisons should only be made within the same method. D-DIMER, VTE EXCLUSION - Normal D-Dimer, Quantitative VTE Exclusion 359 Narrative: The VTE Exclusion D-Dimer assay is reported in ng/mL Fibrinogen Equivalent Units (FEU). Per seafood specialist's instructions for use, a value of less than 500 ng/mL (FEU) may help to exclude DVT or PE in outpatients when the assay is used with a clinical pretest probability assessment.(AEMR must utilize and document eCalc 'Wells Score Deep Vein Thrombosis Risk' for DVT exclusion only. Emergency Department should utilize Guidelines for Emergency Department Use of the VTE Exclusion D-Dimer and Clinical Pretest probability assessment model for DVT or PE exclusion.) SARS-COV-2 PCR - Normal Coronavirus 2019, PCR Narrative: This assay is an FDA-cleared, in vitro diagnostic nucleic acid amplification test for the qualitative detection and differentiation of SARS CoV-2 from nasopharyngeal specimens collected from individuals with signs and symptoms of respiratory tract infections, and has been validated for use at [facility]. Negative results do not preclude COVID-19 infections and should not be used as the sole basis for diagnosis, treatment, or other management decisions. Testingfor SARS CoV-2 is recommended only for patients who meet current clinical and/or epidemiological criteria defined by federal, state, or local public health directives. INFLUENZA A AND B PCR - Normal Flu A Result Flu B Result Narrative: This assay is an in vitro diagnostic multiplex nucleic acid amplification test for the detection and discrimination of Influenza A & B from nasopharyngeal specimens, and has been validated for use at [facility]. Negative results do not preclude Influenza A/B infections, and should not be used as the sole basis for diagnosis, treatment, or other management decisions. If Influenza A/B and RSV PCR results are negative, testing for Parainfluenza virus, Adenovirus and Metapneumovirus is routinely performed for [facility] pediatric oncology and intensive care inpatients, and is available on other patients by placing an add-on request. TSH WITH REFLEX TO FREE T4 IF ABNORMAL - Normal Thyroid Stimulating Hormone 2.18 Narrative: TSH testing is performed using different testing methodology at [facility]. Direct result comparisons should only be made within the same method. URINALYSIS WITH REFLEX CULTURE AND MICROSCOPIC Narrative: The following orders were created for panel order Urinalysis with Reflex Culture and Microscopic. Procedure Abnormality Status --------- ------ Urinalysis with Reflex C...[[id number]] Extra Urine Weber Tube[[id number]] Please view results for these tests on the individual orders. URINALYSIS WITH REFLEX CULTURE AND MICROSCOPIC EXTRA URINE WEBER TUBE XR chest 1 view Final Result 1. No evidence of acute cardiopulmonary process. MACRO: None Signed by: Jose Luis Winchester 12/31/2024 2:29 PM Dictation workstation: [id number] Medical Decision Making: Patient appears well nontoxic. Tachycardic upon arrival. No evidence of ischemia. Lab work including troponin as well as D-dimer negative. Patient treated with 1 L of normal saline. NIH of 0. On reevaluation patient feeling improved and heart rate 98. Advised on continued oral hydration and follow-up with primary care. Stable at time of discharge. Differential Diagnoses Considered: Volume depletion, electrolyte abnormality, POTS, ACS, pulmonary embolism, anxiety Independent Interpretation of Studies: I independently interpreted: Chest x-ray shows no evidence of pneumonia or pneumothorax. Escalation of Care: Appropriate for discharge and follow-up with primary care. 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 Wolf Marin: Sinus tachycardia 128 bpm. AK interval 124 ms. QTc of 438ms. Nonspecific ST changes. Wolf Marin DO 12/31/24 1538 documented in this [facility] Work Phone: [phone] 331-714303-12-2025 History of Present illness Narrative* Petros Cespedes APRN-LOR - 12/17/2024 9:40 AM EDT Subjective Patient ID: Reinaldo Warren is a 39 y.o. female who presents for Follow-up (FOLLOW UP, LABS, FMLA). HPI: Presents today for FOLLOW UP LABS. NEEDS [facility] PAPERWORK UPDATED. NO FURTHER COMPLAINTS B12- INJECTION TODAY AND START MONTHLY INJECTIONS LIPIDS - START LIPITOR 10 MG. DID NOT START FENOFIBRATE AND WANTS TO WAIT AT THIS TIME. RECHECK IN 6 MONTHS HTN- HAS NOT BEEN TAKING LISINOPRIL 40 MG. SHE WAS STABLE ON MED WHEN TAKING IN. INSTRUCTED TO START 0.5 TAB X 2 WEEKS, THEN INCREASE TO 40 MG. MONITOR BP. Visit Vitals BP (!) 174/119 Pulse (!) 116 Ht 1.651 m (5' 5) Wt 89.7 kg (197 lb 12.8 oz) BMI 32.92 kg/m OB Status Having periods Smoking Status Former BSA 2.03 m Review of Systems Constitutional: Negative for chills, fatigue, fever and unexpected weight change. HENT: Negative for congestion, ear pain, sore throat and trouble swallowing. Eyes: Negative for photophobia, pain, redness and visual disturbance. Respiratory: Negative for apnea, cough, choking, chest tightness, shortness of breath and wheezing. Cardiovascular: Negative for chest pain, palpitations and leg swelling. Gastrointestinal: Negative for abdominal distention, abdominal pain, blood in stool, constipation, diarrhea, nausea and vomiting. Genitourinary: Negative for difficulty urinating, dysuria, flank pain, frequency, hematuria and urgency. Musculoskeletal: Negative for arthralgias, back pain, gait problem, joint swelling, myalgias and neck pain. Skin: Negative for rash and wound. Neurological: Negative for dizziness, seizures, syncope, facial asymmetry, speech difficulty, weakness, numbness and headaches. Psychiatric/Behavioral: Negative for confusion, sleep disturbance and suicidal ideas. The patient is not nervous/anxious. Objective Component Latest Ref [facility] 12/15/2024 WHITE BLOOD CELL COUNT 3.8 - 10.8 Thousand/uL 5.1 RED BLOOD CELL COUNT 3.80 - 5.10 Million/uL 4.57 HEMOGLOBIN 11.7 - 15.5 g/dL 13.7 HEMATOCRIT 35.0 - 45.0 % 40.5 MCV 80.0 - 100.0 fL 88.6 MCH 27.0 - 33.0 pg 30.0 MCHC 32.0 - 36.0 g/dL 33.8 RDW 11.0 - 15.0 % 14.4 PLATELET COUNT 140 - 400 Thousand/uL 236 MPV 7.5 - 12.5 fL 10.6 ABSOLUTE NEUTROPHILS 1,500 - 7,800 cells/uL 3,427 ABSOLUTE LYMPHOCYTES 850 - 3,900 cells/uL 1,341 ABSOLUTE MONOCYTES 200 - 950 cells/uL 291 ABSOLUTE EOSINOPHILS 15 - 500 cells/uL 0 (L) ABSOLUTE BASOPHILS 0 - 200 cells/uL 41 NEUTROPHILS % 67.2 LYMPHOCYTES % 26.3 MONOCYTES % 5.7 EOSINOPHILS % 0.0 BASOPHILS % 0.8 GLUCOSE 65 - 99 mg/dL 255 (H) UREA NITROGEN (BUN) 7 - 25 mg/dL 9 CREATININE 0.50 - 0.97 mg/dL 0.54 EGFR > OR = 60 mL/min/1.73m2 120 SODIUM 135 - 146 mmol/L 136 POTASSIUM 3.5 - 5.3 mmol/L 3.9 CHLORIDE 98 - 110 mmol/L 101 CARBON DIOXIDE 20 - 32 mmol/L 26 ELECTROLYTE BALANCE 7 - 17 mmol/L (calc) 9 CALCIUM 8.6 - 10.2 mg/dL 9.0 PROTEIN, TOTAL 6.1 - 8.1 g/dL 6.7 ALBUMIN 3.6 - 5.1 g/dL 4.2 BILIRUBIN, TOTAL 0.2 - 1.2 mg/dL 0.8 ALKALINE PHOSPHATASE 31 - 125 U/L 75 AST 10 - 30 U/L 13 ALT 6 - 29 U/L 15 CHOLESTEROL, TOTAL <200 mg/dL 193 HDL CHOLESTEROL > OR = 50 mg/dL 48 (L) TRIGLYCERIDES <150 mg/dL 260 (H) LDL-CHOLESTEROL mg/dL (calc) 108 (H) CHOL/HDLC RATIO <5.0 (calc) 4.0 NON HDL CHOLESTEROL <130 mg/dL (calc) 145 (H) CREATININE, RANDOM URINE 20 - 275 mg/dL 51 ALBUMIN, URINE See Note: mg/dL 2.3 ALBUMIN/CREATININE RATIO, RANDOM URINE <30 mg/g creat 45 (H) IRON, TOTAL 40 - 190 mcg/dL 64 IRON BINDING CAPACITY 250 - 450 mcg/dL (calc) 403 % SATURATION 16 - 45 % (calc) 16 HEMOGLOBIN A1c <5.7 % of total Hgb 7.1 (H) eAG (mg/dL) mg/dL 157 eAG (mmol/L) mmol/L 8.7 FERRITIN 16 - 154 ng/mL 21 VITAMIN B12 200 - 1,100 pg/mL 360 PARATHYROID HORMONE, INTACT 16 - 77 pg/mL 46 TSH mIU/L 2.23 VITAMIN D,25-OH,TOTAL,IA 30 - 100 ng/mL 20 (L) Legend: (L) Low (H) High Physical Exam Constitutional: Appearance: Normal appearance. She is normal weight. HENT: Head: Normocephalic. Eyes: Extraocular Movements: Extraocular movements intact. Conjunctiva/sclera: Conjunctivae normal. Pupils: Pupils are equal, round, and reactive to light. Cardiovascular: Rate and Rhythm: Normal rate and regular rhythm. Pulses: Normal pulses. Heart sounds: Normal heart sounds. Pulmonary: Effort: Pulmonary effort is normal. Breath sounds: Normal breath sounds. Musculoskeletal: General: Normal range of motion. Cervical back: Normal range of motion. Skin: General: Skin is warm and dry. Neurological: General: No focal deficit present. Mental Status: She is alert and oriented to person, place, and time. Psychiatric: Mood and Affect: Mood normal. Behavior: Behavior normal. Thought Content: Thought content normal. Judgment: Judgment normal. Assessment/Plan Problem List Items Addressed This Visit Mixed diabetic hyperlipidemia associated with type 2 diabetes mellitus (Multi) - Primary Relevant Medications dulaglutide (Trulicity) 0.75 mg/0.5 mL pen injector atorvastatin (Lipitor) 10 mg tablet Primary hypertension Relevant Medications lisinopril 40 mg tablet Vitamin D deficiency Relevant Medications calcium carbonate-vitamin D3 (Hi-Link Plus Vit D) 500 mg-5 mcg (200 unit) tablet Other Visit Diagnoses Low vitamin B12 level Relevant Medications cyanocobalamin (Vitamin B-12) injection 1,000 mcg (Start on 12/17/2024 10:30 AM) Paperwork has been fill out to patient satisfaction WE DISCUSSED MOST COMMON SIDE EFFECTS OF PRESCRIBED MEDICATIONS. INDICATIONS, RISK, COMPLICATIONS, AND ALTERNATIVES OF MEDICATION/THERAPEUTICS WERE EXPLAINED AND DISCUSSED. PLEASE MONITOR CLOSELY FORANY UNTOWARD SIDE EFFECTS OR COMPLICATIONS OF MEDICATIONS. PATIENT IS STRONGLY ADVISED TO BE COMPLIANT WITH RECOMMENDATIONS. QUESTIONS AND CONCERNS WERE ADDRESSED. INSTRUCTED TO CALL, RETURN SOONER, OR GO TO THE ER, IF SYMPTOMS PERSIST OR WORSEN. THEY VOICED UNDERSTANDING AND DENIES FURTHER QUESTIONS AT THIS TIME. TIME CODE 1. PREPARATION FOR PATIENT'S VISIT (REVIEWING CHART, CURRENT MEDICAL RECORDS, OUTSIDE HEALTH PROVIDER RECORDS, PREVIOUS HISTORY, EXAM, TEST, PROCEDURE, AND MEDICATIONS) 2. FACE TO FACE ENCOUNTER OBTAINING HISTORY FROM THE PATIENT/FAMILY/CAREGIVERS; PERFORMING EVALUATION AND EXAMINATION; ORDERING TESTS OR PROCEDURES; REFERRING AND COMMUNICATING WITH OTHER HEALTHCARE PROVIDERS; COUNSELING AND EDUCATION OF THE PATIENT/FAMILY/CAREGIVERS; INDEPENDENTLY INTERPRETING RESULTS (TESTS, LABS, PROCEDURES, IMAGING) AND COMMUNICATING AND EXPLAINING RESULTS TO THE PATIENT/FAMILY/CAREGIVERS 3. COORDINATION OF CARE; PREPARING AND PRINTING DISCHARGE INSTRUCTIONS AND ANY EDUCATIONAL MATERIALFOR THE PATIENT/FAMILY/CAREGIVERS. DOCUMENTING CLINICAL INFORMATION IN THE ELECTRONIC MEDICAL RECORD 4. REVIEWING OARRS NEEDED MDM 1) COMPLEXITY: MORE THAN 1 STABLE CHRONIC CONDITION ADDRESSED OR 1 ACUTE ILLNESS ADDRESSED 2)DATA: TESTS INTERPRETED AND OR ORDERED, TOOK INDEPENDENT HISTORY OR RECORDS REVIEWED 3)RISK: MODERATE RISK DUE TO NATURE OF MEDICAL CONDITIONS/COMORBIDITY OR MEDICATIONS ORDERED OR SURGICAL OR PROCEDURE REFERRAL Follow up as before FOR BP CHECK AND 3 MONTHS WITH LABS documented in this [facility] Work Phone: [phone] History of Present illness Narrative* VIKKI Fuentes - 12/10/2024 9:40 AM EST Subjective Patient ID: Reinaldo Warren is a 39 y.o. female who presents for Headache (HEADACHE, THROWING UP,DIARRHEA, NO FEVER THAT SHE KNOWS OF). Virtual or Telephone Consent An interactive audio and video telecommunication system which permits real time communications between the patient (at the originating site) and provider (at the distant site) was utilized to providethis telehealth service. Verbal consent was requested and obtained from Reinaldo Warren on this date, 12/10/24 for a telehealth visit and the patient's location was confirmed at the time of the visit. HPI: Presents today for C/O BODY ACHES, N/V, AND CHAN X 4 DAYS modifying factors consists of NO COVID TESTTAKEN. associated symptoms consist of SINUS PRESSURE. NO KNOWN FEVER. NO SOB OR CP prior treatment consists of medication NONE ASTHMA- STABLE Visit Vitals Ht 1.651 m (5' 5) Wt 86.2 kg (190 lb) BMI 31.62 kg/m OB Status Having periods Smoking Status Former BSA 1.99 m Review of Systems Constitutional: Positive for fatigue. Negative for chills, fever and unexpected weight change. HENT: Positive for congestion and sinus pressure. Negative for ear pain, sore throat and trouble swallowing. Eyes: Negative for photophobia, pain, redness and visual disturbance. Respiratory: Negative for apnea, cough, choking, chest tightness, shortness of breath and wheezing. Cardiovascular: Negative for chest pain, palpitations and leg swelling. Gastrointestinal: Positive for nausea and vomiting. Negative for abdominal distention, abdominal pain, blood in stool, constipation and diarrhea. Genitourinary: Negative for difficulty urinating, dysuria, flank pain, frequency, hematuria and urgency. Musculoskeletal: Negative for arthralgias, back pain, gait problem, joint swelling, myalgias and neck pain. Skin: Negative for rash and wound. Neurological: Positive for headaches. Negative for dizziness, seizures, syncope, facial asymmetry, speech difficulty, weakness and numbness. Psychiatric/Behavioral: Negative for confusion, sleep disturbance and suicidal ideas. The patient is not nervous/anxious. Objective Physical Exam Constitutional: Appearance: She is ill-appearing. Neurological: Mental Status: She is alert and oriented to person, place, and time. Psychiatric: Mood and Affect: Mood normal. Behavior: Behavior normal. Thought Content: Thought content normal. Judgment: Judgment normal. Assessment/Plan Problem List Items Addressed This Visit None Visit Diagnoses Acute non-recurrent maxillary sinusitis - Primary Relevant Medications COVID-19 antigen test (COVID-19 At-Home Test) kit azithromycin (Zithromax) 250 mg tablet CALL WITH COVID-19 TESTING RESULTS. PRACTICE GOOD HAND WASHING TECHNIQUES. PT WAS INSTRUCTED TO INCREASE FLUID INTAKE AND TAKE TYLENOL 650 MG PO Q6H/PRN FOR PAIN OR FEVER. RETURN SOONER OR GO TO THE ER IF SYMPTOMS PERSIST OR WORSEN WE DISCUSSED MOST COMMON SIDE EFFECTS OF PRESCRIBED MEDICATIONS. INDICATIONS, RISK, COMPLICATIONS, AND ALTERNATIVES OF MEDICATION/THERAPEUTICS WERE EXPLAINED AND DISCUSSED. PLEASE MONITOR CLOSELY FORANY UNTOWARD SIDE EFFECTS OR COMPLICATIONS OF MEDICATIONS. PATIENT IS STRONGLY ADVISED TO BE COMPLIANT WITH RECOMMENDATIONS. QUESTIONS AND CONCERNS WERE ADDRESSED. INSTRUCTED TO CALL, RETURN SOONER, OR GO TO THE ER, IF SYMPTOMS PERSIST OR WORSEN. THEY VOICED UNDERSTANDING AND DENIES FURTHER QUESTIONS AT THIS TIME. TIME CODE 1. PREPARATION FOR PATIENT'S VISIT (REVIEWING CHART, CURRENT MEDICAL RECORDS, OUTSIDE HEALTH PROVIDER RECORDS, PREVIOUS HISTORY, EXAM, TEST, PROCEDURE, AND MEDICATIONS) 2. FACE TO FACE ENCOUNTER OBTAINING HISTORY FROM THE PATIENT/FAMILY/CAREGIVERS; PERFORMING EVALUATION AND EXAMINATION; ORDERING TESTS OR PROCEDURES; REFERRING AND COMMUNICATING WITH OTHER HEALTHCARE PROVIDERS; COUNSELING AND EDUCATION OF THE PATIENT/FAMILY/CAREGIVERS; INDEPENDENTLY INTERPRETING RESULTS (TESTS, LABS, PROCEDURES, IMAGING) AND COMMUNICATING AND EXPLAINING RESULTS TO THE PATIENT/FAMILY/CAREGIVERS 3. COORDINATION OF CARE; PREPARING AND PRINTING DISCHARGE INSTRUCTIONS AND ANY EDUCATIONAL MATERIALFOR THE PATIENT/FAMILY/CAREGIVERS. DOCUMENTING CLINICAL INFORMATION IN THE ELECTRONIC MEDICAL RECORD 4. REVIEWING OARRS NEEDED MDM 1) COMPLEXITY: MORE THAN 1 STABLE CHRONIC CONDITION ADDRESSED OR 1 ACUTE ILLNESS ADDRESSED 2)DATA: TESTS INTERPRETED AND OR ORDERED, TOOK INDEPENDENT HISTORY OR RECORDS REVIEWED 3)RISK: MODERATE RISK DUE TO NATURE OF MEDICAL CONDITIONS/COMORBIDITY OR MEDICATIONS ORDERED OR SURGICAL OR PROCEDURE REFERRAL 1 MONTH WITH LABS PREVIOUSLY ORDERED AND ORDERED TODAY documented in this [facility] Work Phone: [phone] Physician Emergency department Note* Wolf Marin, - 11/26/2024 3:07 PM ESTAssociated Order(s): ECG 12 lead HPI Chief Complaint Patient presents with Syncope 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 Pt is A&Ox3 and did not lose control of bowel or bladder. Pt has hx of DM2 and seizures. Pt stated she felt dizzy and like she was going to pass out. Limitations to History: None HPI: 39-year-old female presents as a rapid response from the kitchen. Patient felt dizzy. [place] sheis on a pass out. Patient was standing and had a shaking episode. Never fell completely to the ground. This does happen to her frequently. History of POTS as well as seizures. Denies any head injury.No complaints at this time. Additional History Obtained from: [Family, Parent, EMS, Significant other, Caregiver, Friend, PD, etc.] Physical Exam: VS: As documented in the triage note and EMR flowsheet from this visit were reviewed. Appearance: Alert. cooperative, in no acute distress. Skin: Intact, dry skin, no lesions, rash, petechiae or purpura. Eyes: PERRLA, EOMs intact, Conjunctiva pink with no redness or exudates. HENT: Normocephalic, atraumatic. Nares patent. No intraoral lesions. Neck: Supple, without meningismus. Trachea at midline. No lymphadenopathy. Pulmonary: Clear bilaterally with good chest wall excursion. No rales, rhonchi or wheezing. No accessory muscle use or stridor. Cardiac: Regular rate and rhythm, no rubs, murmurs, or gallops. Abdomen: Abdomen is soft, nontender, and nondistended. No palpable organomegaly. No rebound or guarding. No CVA tenderness. Nonsurgical abdomen. Genitourinary: Exam deferred. Musculoskeletal: Full range of motion. Pulses full and equal. No cyanosis, clubbing, or edema. Neurological: Cranial nerves are grossly intact, grossly normal sensation, no weakness, no focal findings identified. Psychiatric: Appropriate mood and affect. Patient History Past Medical History: Diagnosis Date Diabetes mellitus (Multi) Hypertension Personal history of transient ischemic attack (TIA), and cerebral infarction without residual deficits History of cerebrovascular accident Seizures (Multi) Past Surgical History: Procedure Laterality Date SECTION, LOW TRANSVERSE OTHER SURGICAL HISTORY 02/11/2020 Cholecystectomy Family History Problem Relation Name Age of Onset Hypertension Mother Diabetes type II Mother Diabetes type II Father Hypertension Father Social History Tobacco Use Smoking status: Former Current packs/day: 0.00 Types: Cigarettes Quit date: 2016 Years since quittin.1 Smokeless tobacco: Never Vaping Use Vaping status: Never Used Substance Use Topics Alcohol use: Never Drug use: Never Physical Exam ED Triage Vitals [11/26/24 1501] Temperature Heart Rate Respirations BP 36.9 C (98.5 F) 96 20 (!) 175/103 Pulse Ox Temp Source Heart Rate Source Patient Position 97 % Oral Monitor -- BP Location FiO2 (%) -- -- Physical Exam ED Course & MDM ED Course as of 11/26/24 1800 Wed Nov 26, 2024 1519 Patient had seizure activity lasting less than 1 minute. Normally confused following but now back to baseline. History of epilepsy. [CL] [address] brain will be added to workup. [CL] ED Course User Index [CL] Wolf Marin, Diagnoses as of 11/26/24 1800 Syncope, unspecified syncope type Seizure-like activity (Multi) No data recorded Rosa Coma Scale Score: 15 (11/26/24 1507 : Aga Juan RN) Medical Decision Making Labs Reviewed CBC WITH AUTO DIFFERENTIAL - Abnormal WBC 6.8 nRBC 0.0 RBC 4.35 Hemoglobin 12.6 Hematocrit 37.0 MCV 85 MCH 29.0 MCHC 34.1 RDW 15.0 (*) Platelets 221 Neutrophils % 70.7 Immature Granulocytes %, Automated 0.7 Lymphocytes % 22.3 Monocytes % 5.6 Eosinophils % 0.1 Basophils % 0.6 Neutrophils Absolute 4.78 Immature Granulocytes Absolute, Au* 0.05 Lymphocytes Absolute 1.51 Monocytes Absolute 0.38 Eosinophils Absolute 0.01 Basophils Absolute 0.04 COMPREHENSIVE METABOLIC PANEL - Abnormal Glucose 227 (*) Sodium 134 (*) Potassium 3.6 Chloride 101 Bicarbonate 25 Anion Gap 12 Urea Nitrogen 8 Creatinine 0.57 eGFR >90 Calcium 9.0 Albumin 4.1 Alkaline Phosphatase 75 Total Protein 6.5 AST 15 Bilirubin, Total 0.9 ALT 13 LACTATE - Abnormal Lactate 2.3 (*) Narrative: Venipuncture immediately after or during the administration of Metamizole may lead to falsely low results. Testing should be performed immediately prior to Metamizole dosing. LACTATE - Abnormal Lactate 2.1 (*) Narrative: Venipuncture immediately after or during the administration of Metamizole may lead to falsely low results. Testing should be performed immediately prior to Metamizole dosing. MAGNESIUM - Normal Magnesium 2.03 TROPONIN I, HIGH SENSITIVITY - Normal Troponin I, High Sensitivity 5 Narrative: Less than 99th percentile of normal range cutoff- Female and children under 18 years old <14 ng/L; Male <21 ng/L: Negative Repeat testing should be performed if clinically indicated. Female and children under 18 years old 14-50 ng/L; Male 21-50 ng/L: Consistent with possible cardiac damage and possible increased clinical risk. Serial measurements may help to assess extent of myocardial damage. >50 ng/L: Consistent with cardiac damage, increased clinical risk and myocardial infarction. Serial measurements may help assess extent of myocardial damage. NOTE: Children less than 1 year old may have higher baseline troponin levels and results should be interpreted in conjunction with the overall clinical context. NOTE: Troponin I testing is performed using a different testing methodology at [facility] than at other [facility]. Direct result comparisons should only be made within the same method. URINALYSIS WITH REFLEX CULTURE AND MICROSCOPIC Narrative: The following orders were created for panel order Urinalysis with Reflex Culture and Microscopic. Procedure Abnormality Status --------- ------ Urinalysis with Reflex C...[[id number]] Extra Urine Weber Tube[[id number]] Please view results for these tests on the individual orders. URINALYSIS WITH REFLEX CULTURE AND MICROSCOPIC EXTRA URINE WEBER TUBE Medical Decision Making: Patient appears well nontoxic. No focal deficit. CT brain negative. Lab work shows slightly elevated lactate. Improved after 1 L normal saline. Patient does have seizure-like activity in the emergency department which is resolved without evidence of treatment. Appears to have nonepileptic seizures after discussion with patient and review of the chart. Patient reevaluated again and is feeling muchimproved and thus wishes to be discharged home. Stable at time of discharge. Differential Diagnoses Considered: Volume depletion, electrolyte abnormality, syncope, seizure-likeactivity Independent Interpretation of Studies: I independently interpreted: CT brain shows no intracranial hemorrhage. Chest x- ray shows no evidence of pneumonia or pneumothorax. Escalation of Care: Appropriate for discharge and follow-up with primary care. 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 Wolf Marin: Normal sinus rhythm at 93 bpm. AK interval 160 ms. QTc of450 ms[address] N[address] changes. 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 Pt is A&Ox3 and did not lose control of bowel or bladder. Pt has hx of DM2 and seizures. Pt stated she felt dizzy and like she was going to pass out. Limitations to History: None HPI: 39-year-old female presents as a rapid response from the kitchen. Patient felt dizzy. [place] sheis on a pass out. Patient was standing and had a shaking episode. Never fell completely to the ground. This does happen to her frequently. History of POTS as well as seizures. Denies any head injury.No complaints at this time. Additional History Obtained from: [Family, Parent, EMS, Significant other, Caregiver, Friend, PD, etc.] Physical Exam: VS: As documented in the triage note and EMR flowsheet from this visit were reviewed. Appearance: Alert. cooperative, in no acute distress. Skin: Intact, dry skin, no lesions, rash, petechiae or purpura. Eyes: PERRLA, EOMs intact, Conjunctiva pink with no redness or exudates. HENT: Normocephalic, atraumatic. Nares patent. No intraoral lesions. Neck: Supple, without meningismus. Trachea at midline. No lymphadenopathy. Pulmonary: Clear bilaterally with good chest wall excursion. No rales, rhonchi or wheezing. No accessory muscle use or stridor. Cardiac: Regular rate and rhythm, no rubs, murmurs, or gallops. Abdomen: Abdomen is soft, nontender, and nondistended. No palpable organomegaly. No rebound or guarding. No CVA tenderness. Nonsurgical abdomen. Genitourinary: Exam deferred. Musculoskeletal: Full range of motion. Pulses full and equal. No cyanosis, clubbing, or edema. Neurological: Cranial nerves are grossly intact, grossly normal sensation, no weakness, no focal findings identified. Psychiatric: Appropriate mood and affect. Patient History Past Medical History: Diagnosis Date Diabetes mellitus (Multi) Hypertension Personal history of transient ischemic attack (TIA), and cerebral infarction without residual deficits History of cerebrovascular accident Seizures (Multi) Past Surgical History: Procedure Laterality Date SECTION, LOW TRANSVERSE OTHER SURGICAL HISTORY 02/11/2020 Cholecystectomy Family History Problem Relation Name Age of Onset Hypertension Mother Diabetes type II Mother Diabetes type II Father Hypertension Father Social History Tobacco Use Smoking status: Former Current packs/day: 0.00 Types: Cigarettes Quit date: 2015 Years since quittin.1 Smokeless tobacco: Never Vaping Use Vaping status: Never Used Substance Use Topics Alcohol use: Never Drug use: Never Physical Exam ED Triage Vitals [11/26/24 1501] Temperature Heart Rate Respirations BP 36.9 C (98.5 F) 96 20 (!) 175/103 Pulse Ox Temp Source Heart Rate Source Patient Position 97 % Oral Monitor -- BP Location FiO2 (%) -- -- Physical Exam ED Course & MDM ED Course as of 11/26/24 1800 SunNov 26, 2024 1519 Patient had seizure activity lasting less than 1 minute. Normally confused following but now back to baseline. History of epilepsy. [CL] [address] brain will be added to workup. [CL] ED Course User Index [CL] Wolf Marin DO Diagnoses as of 11/26/24 1800 Syncope, unspecified syncope type Seizure-like activity (Multi) No data recorded Rosa Coma Scale Score: 15 (11/26/24 1507 : Aga Juan RN) Medical Decision Making Labs Reviewed CBC WITH AUTO DIFFERENTIAL - Abnormal WBC 6.8 nRBC 0.0 RBC 4.35 Hemoglobin 12.6 Hematocrit 37.0 MCV 85 MCH 29.0 MCHC 34.1 RDW 15.0 (*) Platelets 221 Neutrophils % 70.7 Immature Granulocytes %, Automated 0.7 Lymphocytes % 22.3 Monocytes % 5.6 Eosinophils % 0.1 Basophils % 0.6 Neutrophils Absolute 4.78 Immature Granulocytes Absolute, Au* 0.05 Lymphocytes Absolute 1.51 Monocytes Absolute 0.38 Eosinophils Absolute 0.01 Basophils Absolute 0.04 COMPREHENSIVE METABOLIC PANEL - Abnormal Glucose 227 (*) Sodium 134 (*) Potassium 3.6 Chloride 101 Bicarbonate 25 Anion Gap 12 Urea Nitrogen 8 Creatinine 0.57 eGFR >90 Calcium 9.0 Albumin 4.1 Alkaline Phosphatase 75 Total Protein 6.5 AST 15 Bilirubin, Total 0.9 ALT 13 LACTATE - Abnormal Lactate 2.3 (*) Narrative: Venipuncture immediately after or during the administration of Metamizole may lead to falsely low results. Testing should be performed immediately prior to Metamizole dosing. LACTATE - Abnormal Lactate 2.1 (*) Narrative: Venipuncture immediately after or during the administration of Metamizole may lead to falsely low results. Testing should be performed immediately prior to Metamizole dosing. MAGNESIUM - Normal Magnesium 2.03 TROPONIN I, HIGH SENSITIVITY - Normal Troponin I, High Sensitivity 5 Narrative: Less than 99th percentile of normal range cutoff- Female and children under 18 years old <14 ng/L; Male <21 ng/L: Negative Repeat testing should be performed if clinically indicated. Female and children under 18 years old 14-50 ng/L; Male 21-50 ng/L: Consistent with possible cardiac damage and possible increased clinical risk. Serial measurements may help to assess extent of myocardial damage. >50 ng/L: Consistent with cardiac damage, increased clinical risk and myocardial infarction. Serial measurements may help assess extent of myocardial damage. NOTE: Children less than 1 year old may have higher baseline troponin levels and results should be interpreted in conjunction with the overall clinical context. NOTE: Troponin I testing is performed using a different testing methodology at [facility] than at other [facility]. Direct result comparisons should only be made within the same method. URINALYSIS WITH REFLEX CULTURE AND MICROSCOPIC Narrative: The following orders were created for panel order Urinalysis with Reflex Culture and Microscopic. Procedure Abnormality Status --------- ------ Urinalysis with Reflex C...[[id number]] Extra Urine Weber Tube[[id number]] Please view results for these tests on the individual orders. URINALYSIS WITH REFLEX CULTURE AND MICROSCOPIC EXTRA URINE WEBER TUBE Medical Decision Making: Patient appears well nontoxic. No focal deficit. CT brain negative. Lab work shows slightly elevated lactate. Improved after 1 L normal saline. Patient does have seizure-like activity in the emergency department which is resolved without evidence of treatment. Appears to have nonepileptic seizures after discussion with patient and review of the chart. Patient reevaluated again and is feeling muchimproved and thus wishes to be discharged home. Stable at time of discharge. Differential Diagnoses Considered: Volume depletion, electrolyte abnormality, syncope, seizure-likeactivity Independent Interpretation of Studies: I independently interpreted: CT brain shows no intracranial hemorrhage. Chest x- ray shows no evidence of pneumonia or pneumothorax. Escalation of Care: Appropriate for discharge and follow-up with primary care. 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 Wolf Marin: Normal sinus rhythm at 93 bpm. AK interval 160 ms. QTc of[address] changes. Wolf Marin DO 11/26/24 1801 [facility] Work Phone: 1(703) 231-376401-28-2025 NoteHNO ID: [id number] Author: JEANETTE MILLER APRN.PUBLIC SAFETY TELECOMMUNICATOR Service: ? Author Type: Nurse Practitioner Type: Progress Notes Filed: 11/04/2024 15:19 Note Text: FOLLOW-UP PSYCHIATRIC PROGRESS NOTE Visit Type:Virtual Visit utilizing two-way audio and video for at least a portion of the visit. Consent for virtual visit obtained verbally. Confidentiality limitations with virtual visits reviewed with the patient and guardian, if present, who have accepted the risk verbally prior to proceeding with encounter. I have communicated my name and active licensure. The patient's identity and physical location were verified at the time of this visit. Either the patient or their legal sales representative uniforms has been informed of the risks and benefits of -- and alternatives to -- treatment through a remote evaluation and consents to proceed with the evaluation remotely. Reason for Visit: Outpatient follow-up and safety monitoring of previously prescribed psychiatric medication, psychotherapy or other treatment CHIEF COMPLAINT: Follow up for medication management HPI: Says that things are going a lot better Feels that starting the gabapentin has helped big time - feeling more relaxed - taking as needed Did end up presenting at the ED for worsened depression - was given resources for counseling in her area - is scheduled for an upcoming appointment It seems like it is getting better - work is her main stressor and feels that there are some positive changes being made Reports that she has been sleeping better - taking trazodone that she had from an old prescription - would like a refill Has returned to taking the Remeron and Effexor daily Would like to keep her current medications at this time Interval Progress since previous visit: improved VITAL SIGNS: There were no vitals filed for this visit. ROS: PSYCH: See HPI All other systems negative. PATIENT DATA: MILENA-7 More data exists 03/14/2024 04/11/2024 08/14/2024 10/29/2024 11/04/2024 MILENA-7 All Questions Feeling nervous, anxious, or on edge - Several days Not at all Several days Several days Not being able to stop or control worrying - Several days Not at all Several days Several days Worrying too much about different things - Several days Not at all Several days Several days Trouble relaxing Several days Several days Not at all Several days Several days Being so restless that it is hard to sit still - Several days Not at all Several days Several days Becoming easily annoyed or irritable Several days Several days Not at all Several days Several days Feeling afraid, as if something awful might happen - Several days - Several days Several days MILENA-7 Score - 7 - 7 7 Details PHQ-9 More data exists 03/14/2024 04/11/2024 08/14/2024 10/29/2024 11/04/2024 PHQ-9 Scores Little interest or pleasure in doing things: Not at all Not at all More than half the days Several days Several days Feeling down, depressed, or hopeless: Several days Not at all More than half the days Several days Several days Trouble falling or staying asleep, or sleeping too much Not at all Several days Several days Not at all Not at all Feeling tired or having little energy Several days Several days More than half the days Several days Not at all Poor appetite or overeating Not at all Not at all Not at all Several days Not at all Feeling bad about yourself - or that you are a failure or have let yourself or your family down Several days Not at all Not at all Several days Not at all Trouble concentrating on things, such as reading the newspaper or watching television Not at all Not at all More than half the days Not at all Not at all Moving or speaking so slowly that other people could have noticed. Or the opposite - being so fidgety or restless that you have been moving around a lot more than usual Not at all Not at all Not at all Not at all Not at all Thoughts that you would be better off , or of hurting yourself in some way Not at all Not at all Not at all Several days Not at all PHQ-9 Score 3 2 9 6 2 Details MENTAL STATUS EXAM: CONSTITUTIONAL: Well groomed, Appropriately dressed, Casually dressed, Well developed, Well nourished ORIENTATION: Person, Place, Time and Situation MEMORY: No deficiencies noted CONCENTRATION: Normal MOOD: euthymic AFFECT: Full and appropriate to topic SPEECH : Clear AND distinct LANGUAGE : Normal ASSOCIATIONS: Intact THOUGHT PROCESS : Logical, Coherent, and Rational PROGRESSION : There was no evidence of disturbance in thought perception or progression. FUND OF KNOWLEDGE : Appropriate and Adequate SUICIDE: Currently denies suicidal thoughts, plan, or intent. HOMICIDE: Currently denies homicidal thoughts, plan, or intent. Labwork: CBC and Differential: WBC Date Value Ref Range Status 08/23/2022 6.72 3.70 - 11.00 k/uL Final RBC Date Value Ref Range Status 08/23/2022 4.47 3.90 - 5.20 m/uL Final Bandar (more content not included)...[facility]01-28-2025 History of Present illness Narrative* Jeanette Miller APRN.PUBLIC SAFETY TELECOMMUNICATOR - 11/04/2024 3:03 PM EST Images from the original note were not included. FOLLOW-UP PSYCHIATRIC PROGRESS NOTE Visit Type:Virtual Visit utilizing two-way audio and video for at least a portion of the visit. Consent for virtual visit obtained verbally. Confidentiality limitations with virtual visits reviewed with the patient and guardian, if present, who have accepted the risk verbally prior to proceeding with encounter. I have communicated my name and active licensure. The patient's identity and physical location were verified at the time of this visit. Either the patient or their legal sales representative uniforms has been informed of the risks and benefits of -- and alternatives to -- treatment through a remote evaluation and consents to proceed with the evaluation remotely. Reason for Visit: Outpatient follow-up and safety monitoring of previously prescribed psychiatric medication, psychotherapy or other treatment CHIEF COMPLAINT: Follow up for medication management HPI: Says that things are going a lot better Feels that starting the gabapentin has helped big time - feeling more relaxed - taking as needed Did end up presenting at the ED for worsened depression - was given resources for counseling in [place] - is scheduled for an upcoming appointment It seems like it is getting better - work is her main stressor and feels that there are some positive changes being made Reports that she has been sleeping better - taking trazodone that she had from an old prescription - would like a refill Has returned to taking the Remeron and Effexor daily Would like to keep her current medications at this time Interval Progress since previous visit: improved VITAL SIGNS: There were no vitals filed for this visit. ROS: PSYCH: See HPI All other systems negative. PATIENT DATA: MILENA-7 More data exists 03/14/2024 04/11/2024 08/14/2024 10/29/2024 11/04/2024 MILENA-7 All Questions Feeling nervous, anxious, or on edge - Several days Not at all Several days Several days Not being able to stop or control worrying - Several days Not at all Several days Several days Worrying too much about different things - Several days Not at all Several days Several days Trouble relaxing Several days Several days Not at all Several days Several days Being so restless that it is hard to sit still - Several days Not at all Several days Several days Becoming easily annoyed or irritable Several days Several days Not at all Several days Several days Feeling afraid, as if something awful might happen - Several days - Several days Several days MILENA-7 Score - 7 - 7 7 Details PHQ-9 More data exists 03/14/2024 04/11/2024 08/14/2024 10/29/2024 11/04/2024 PHQ-9 Scores Little interest or pleasure in doing things: Not at all Not at all More than half the days Several days Several days Feeling down, depressed, or hopeless: Several days Not at all More than half the days Several days Several days Trouble falling or staying asleep, or sleeping too much Not at all Several days Several days Not atall Not at all Feeling tired or having little energy Several days Several days More than half the days Several days Not at all Poor appetite or overeating Not at all Not at all Not at all Several days Not at all Feeling bad about yourself - or that you are a failure or have let yourself or your family down Several days Not at all Not at all Several days Not at all Trouble concentrating on things, such as reading the newspaper or watching television Not at all Not at all More than half the days Not at all Not at all Moving or speaking so slowly that other people could have noticed. Or the opposite - being so fidgety or restless that you have been moving around a lot more than usual Not at all Not at all Not at all Not at all Not at all Thoughts that you would be better off , or of hurting yourself in some way Not at all Not at all Not at all Several days Not at all PHQ-9 Score 3 2 9 6 2 Details MENTAL STATUS EXAM: CONSTITUTIONAL: Well groomed, Appropriately dressed, Casually dressed, Well developed, Well nourished ORIENTATION: Person, Place, Time and Situation MEMORY: No deficiencies noted CONCENTRATION: Normal MOOD: euthymic AFFECT: Full and appropriate to topic SPEECH : Clear & distinct LANGUAGE : Normal ASSOCIATIONS: Intact THOUGHT PROCESS : Logical, Coherent, and Rational PROGRESSION : There was no evidence of disturbance in thought perception or progression. FUND OF KNOWLEDGE : Appropriate and Adequate SUICIDE: Currently denies suicidal thoughts, plan, or intent. HOMICIDE: Currently denies homicidal thoughts, plan, or intent. Labwork: CBC and Differential: WBC Date Value Ref Range Status 08/23/2022 6.72 3.70 - 11.00 k/uL Final RBC Date Value Ref Range Status 08/23/2022 4.47 3.90 - 5.20 m/uL Final Hematocrit Date Value Ref Range Status 08/23/2022 38.3 36.0 - 46.0 % Final MCV Date Value Ref Range Status 08/23/2022 85.7 80.0 - 100.0 fL Final MCH Date Value Ref Range Status 08/23/2022 29.8 26.0 - 34.0 pg Final MCHC Date Value Ref Range Status 08/23/2022 34.7 30.5 - 36.0 g/dL Final Platelet Count Date Value Ref Range Status 08/23/2022 221 150 - 400 k/uL Final MPV Date Value Ref Range Status 08/23/2022 9.9 9.0 - 12.7 fL Final Comprehensive Metabolic Panel: BUN Date Value Ref Range Status 08/23/2022 14 7 - 21 mg/dL Final Creatinine Date Value Ref Range Status 08/23/2022 0.68 0.58 - 0.96 mg/dL Final Sodium Date Value Ref Range Status 08/23/2022 134 (L) 136 - 144 mmol/L Final Potassium Date Value Ref Range Status 08/23/2022 4.0 3.7 - 5.1 mmol/L Final CO2 Date Value Ref Range Status 08/23/2022 26 22 - 30 mmol/L Final Albumin Date Value Ref Range Status 08/07/2021 3.5 (L) 3.9 - 4.9 g/dL Final Comment: Rechecked ALT Date Value Ref Range Status 08/07/2021 18 7 - 38 U/L Final AST Date Value Ref Range Status 08/07/2021 21 13 - 35 U/L Final Gamma-Glutamyltransferase (GGT), Serum: No results found for: GGT Vitamin B12: No components found for: [id number] Vitamin D, Total: No results found for: VITD Thyroid Stimulating Hormone (TSH): TSH Date Value Ref Range Status 08/20/2022 3.040 0.270 - 4.200 mIU/L Final Comment: If the patient is , TSH reference range varies by gestational period: First Trimester (weeks 9-12): 0.180-2.990 mIU/L Second Trimester: 0.110-3.980 mIU/L Third Trimester: 0.480-4.710 mIU/L Irving Simpson et al. A Practical Approach for the Verifications and Determination of Site- and Trimester-Specific Reference Intervals for Thyroid Function tests in . Thyroid, 2019:29:3:412-420.Rodríguez E, et al. 2017 Guidelines of the [place] [employer] for the Diagnosis and Management of Thyroid Disease during and the . Thyroid, 2017:27:3:315-389. Hemoglobin A1C: No results found for: HGBA1C Lipid Panel: Cholesterol, Total Date Value Ref Range Status 02/16/2023 278 (H) <200 mg/dL Final Comment: <200 mg/dL, Desirable 200-239 mg/dL, Borderline high >239 mg/dL, High HDL Cholesterol Date Value Ref Range Status 02/16/2023 35 (L) >39 mg/dL Final Comment: 40-59 mg/dL, Acceptable >59 mg/dL, High: Negative risk factor for coronary heart disease <40 mg/dL, Low: Positive risk factor for coronary heart disease LDL Cholesterol Date Value Ref Range Status 08/13/2021 128 (H) <100 mg/dL Final Comment: <100 mg/dL, Optimal 100-129 mg/dL, Near optimal/above optimal 130-159 mg/dL, Borderline high 160-189 mg/dL, High >189 mg/dL, Very high Secondary prevention optimal LDL Cholesterol levels are recommended to be < 70 mg/dL DATA REVIEWED: Electronic medical record DIAGNOSIS: Post-traumatic stress disorder, acute Generalized anxiety disorder (primary encounter diagnosis) Current severe 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 Discussed life situations and coping skills Support and encouragement provided PLAN AND FOLLOW UP: Medications: Continue: --Effexor XR 187.5 mg once daily --Remeron 30 mg once daily at bedtime for sleep and anxiety - restart with 1/2 tablet then increaseto whole tablet --trazodone 100 mg once daily at bedtime as needed for sleep --gabapentin 100 mg three times daily as needed for breakthrough anxiety Other: --strongly encouraged to continue with therapy Next appointment: --Schedule in 4-6 weeks or sooner if needed --To call the office call [phone] option 3 (for any questions or concerns) or you may call thedepartment appointment line at [phone] --Message in [employer] any questions or concerns. For those experiencing a suicidal crisis: --call the National Suicide Prevention Lifeline at 238 (058-115-5031) --text the Crisis Text Line (text HOME to [phone]) --call [phone] and let them know you are having a mental health crisis or go to your nearest Emergency Room for stabilization. --You can also call Mobile Crisis at [phone]. Discussed side effects including any black box warnings, risks and benefits of medications, and alternatives. ASSESSMENT/PLAN: 1. Generalized anxiety disorder - ICD9: 300.02, ICD10: F41.1 (primary diagnosis) --Per plan above 2. Post-traumatic stress disorder, acute - ICD9: 309.81, ICD10: F43.11 --Per plan above - GABAPENTIN 100 MG CAPSULE - TRAZODONE 100 MG TABLET 3. 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 SIGNATURE: Jeanette Miller APRN.CNP PATIENT NAME: Reinaldo Warren DATE: 11/04/2024 TIME: 3:03 PM [facility] NoteHNO ID: [id number] Author: JEANETTE MILLER APRN.CNP Service: ? Author Type: Nurse Practitioner Type: Progress Notes Filed: 10/29/2024 11:35 Note Text: FOLLOW-UP PSYCHIATRIC PROGRESS NOTE Visit Type:Virtual Visit utilizing two-way audio and video for at least a portion of the visit. Consent for virtual visit obtained verbally. Confidentiality limitations with virtual visits reviewed with the patient and guardian, if present, who have accepted the risk verbally prior to proceeding with encounter. I have communicated my name and active licensure. The patient's identity and physical location were verified at the time of this visit. Either the patient or their legal sales representative uniforms has been informed of the risks and benefits of -- and alternatives to -- treatment through a remote evaluation and consents to proceed with the evaluation remotely. 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 - has removed weapons from herself at this time Is having issues with some of her coworkers and how they treat her - reports this is being addressed at work Feels that her situation at work has been leaving her feeling bad about herself and not wanted Feels that the increase in the Remeron went really well but has been off the Remeron for about 2 weeks because of misplacing it (this corresponds with the time that she has been significantly struggling with her depression) Inquires about a medication for breakthrough anxiety Interval Progress since previous visit: worse VITAL SIGNS: There were no vitals filed for this visit. ROS: PSYCH: See HPI All other systems negative. PATIENT DATA: MILENA-7 More data exists 01/30/2024 03/14/2024 04/11/2024 08/14/2024 10/29/2024 MILENA-7 All Questions Feeling nervous, anxious, or on edge Nearly Everyday - Several days Not at all Several days Not being able to stop or control worrying Nearly Everyday - Several days Not at all Several days Worrying too much about different things Nearly Everyday - Several days Not at all Several days Trouble relaxing Nearly Everyday Several days Several days Not at all Several days Being so restless that it is hard to sit still Nearly Everyday - Several days Not at all Several days Becoming easily annoyed or irritable Several days Several days Several days Not at all Several days Feeling afraid, as if something awful might happen Several days - Several days - Several days MILENA-7 Score 17 - 7 - 7 Details PHQ-9 More data exists 01/30/2024 03/14/2024 04/11/2024 08/14/2024 10/29/2024 PHQ-9 Scores Little interest or pleasure in doing things: Not at all Not at all Not at all More than half the days Several days Feeling down, depressed, or hopeless: Not at all Several days Not at all More than half the days Several days Trouble falling or staying asleep, or sleeping too much Several days Not at all Several days Several days Not at all Feeling tired or having little energy Several days Several days Several days More than half the days Several days Poor appetite or overeating Not at all Not at all Not at all Not at all Several days Feeling bad about yourself - or that you are a failure or have let yourself or your family down Not at all Several days Not at all Not at all Several days Trouble concentrating on things, such as reading the newspaper or watching television Not at all Not at all Not at all More than half the days Not at all Moving or speaking so slowly that other people could have noticed. Or the opposite - being so fidgety or restless that you have been moving around a lot more than usual Not at all Not at all Not at all Not at all Not at all Thoughts that you would be better off , or of hurting yourself in some way Not at all Not at all Not at all Not at all Several days PHQ-9 Score 2 3 2 9 6 Details MENTAL STATUS EXAM: CONSTITUTIONAL: Well groomed, Appropriately dressed, Casually dressed, Well developed, Well nourished ORIENTATION: Person, Place, Time and Situation MEMORY: No deficiencies noted CONCENTRATION: Normal MOOD: depressed AFFECT: Blunted SPEECH : Clear AND distinct LANGUAGE : Normal ASSOCIATIONS: Intact THOUGHT PROCESS : Logical, Coherent, and Rational PROGRESSION : There was no evidence of disturbance in thought perception or progression. FUND OF KNOWLEDGE : Appropriate and Adequate SUICIDE: Currently denies suicidal thoughts, plan, or intent. See HPI HOMICIDE: Currently denies homicidal thoughts, plan, or inte (more content not included)...[facility]01-22-2025 History of Present illness Narrative* Jeanette Miller APRN.[facility] - 10/29/2024 11:02 AM EST Images from the original note were not included. FOLLOW-UP PSYCHIATRIC PROGRESS NOTE Visit Type:Virtual Visit utilizing two-way audio and video for at least a portion of the visit. Consent for virtual visit obtained verbally. Confidentiality limitations with virtual visits reviewed with the patient and guardian, if present, who have accepted the risk verbally prior to proceeding with encounter. I have communicated my name and active licensure. The patient's identity and physical location were verified at the time of this visit. Either the patient or their legal sales representative uniforms has been informed of the risks and benefits of -- and alternatives to -- treatment through a remote evaluation and consents to proceed with the evaluation remotely. 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 - has removed weapons from herself at this time Is having issues with some of her coworkers and how they treat her - reports this is being addressed at work Feels that her situation at work has been leaving her feeling bad about herself and not wanted Feels that the increase in the Remeron went really well but has been off the Remeron for about 2 weeks because of misplacing it (this corresponds with the time that she has been significantly struggling with her depression) Inquires about a medication for breakthrough anxiety Interval Progress since previous visit: worse VITAL SIGNS: There were no vitals filed for this visit. ROS: PSYCH: See HPI All other systems negative. PATIENT DATA: MILENA-7 More data exists 01/30/2024 03/14/2024 04/11/2024 08/14/2024 10/29/2024 MILENA-7 All Questions Feeling nervous, anxious, or on edge Nearly Everyday - Several days Not at all Several days Not being able to stop or control worrying Nearly Everyday - Several days Not at all Several days Worrying too much about different things Nearly Everyday - Several days Not at all Several days Trouble relaxing Nearly Everyday Several days Several days Not at all Several days Being so restless that it is hard to sit still Nearly Everyday - Several days Not at all Several days Becoming easily annoyed or irritable Several days Several days Several days Not at all Several days Feeling afraid, as if something awful might happen Several days - Several days - Several days MILENA-7 Score 17 - 7 - 7 Details PHQ-9 More data exists 01/30/2024 03/14/2024 04/11/2024 08/14/202410/29/2024 PHQ-9 Scores Little interest or pleasure in doing things: Not at all Not at all Not at all More than half the days Several days Feeling down, depressed, or hopeless: Not at all Several days Not at all More than half the days Several days Trouble falling or staying asleep, or sleeping too much Several days Not at all Several days Several days Not at all Feeling tired or having little energy Several days Several days Several days More than half the days Several days Poor appetite or overeating Not at all Not at all Not at all Not at all Several days Feeling bad about yourself - or that you are a failure or have let yourself or your family down Notat all Several days Not at all Not at all Several days Trouble concentrating on things, such as reading the newspaper or watching television Not at all Not at all Not at all More than half the days Not at all Moving or speaking so slowly that other people could have noticed. Or the opposite - being so fidgety or restless that you have been moving around a lot more than usual Not at all Not at all Not at all Not at all Not at all Thoughts that you would be better off , or of hurting yourself in some way Not at all Not at all Not at all Not at all Several days PHQ-9 Score 2 3 2 9 6 Details MENTAL STATUS EXAM: CONSTITUTIONAL: Well groomed, Appropriately dressed, Casually dressed, Well developed, Well nourished ORIENTATION: Person, Place, Time and Situation MEMORY: No deficiencies noted CONCENTRATION: Normal MOOD: depressed AFFECT: Blunted SPEECH : Clear & distinct LANGUAGE : Normal ASSOCIATIONS: Intact THOUGHT PROCESS : Logical, Coherent, and Rational PROGRESSION : There was no evidence of disturbance in thought perception or progression. FUND OF KNOWLEDGE : Appropriate and Adequate SUICIDE: Currently denies suicidal thoughts, plan, or intent. See HPI HOMICIDE: Currently denies homicidal thoughts, plan, or intent. Labwork: CBC and Differential: WBC Date Value Ref Range Status 08/23/2022 6.72 3.70 - 11.00 k/uL Final RBC Date Value Ref Range Status 08/23/2022 4.47 3.90 - 5.20 m/uL Final Hematocrit Date Value Ref Range Status 08/23/2022 38.3 36.0 - 46.0 % Final MCV Date Value Ref Range Status 08/23/2022 85.7 80.0 - 100.0 fL Final MCH Date Value Ref Range Status 08/23/2022 29.8 26.0 - 34.0 pg Final MCHC Date Value Ref Range Status 08/23/2022 34.7 30.5 - 36.0 g/dL Final Platelet Count Date Value Ref Range Status 08/23/2022 221 150 - 400 k/uL Final MPV Date Value Ref Range Status 08/23/2022 9.9 9.0 - 12.7 fL Final Comprehensive Metabolic Panel: BUN Date Value Ref Range Status 08/23/2022 14 7 - 21 mg/dL Final Creatinine Date Value Ref Range Status 08/23/2022 0.68 0.58 - 0.96 mg/dL Final Sodium Date Value Ref Range Status 08/23/2022 134 (L) 136 - 144 mmol/L Final Potassium Date Value Ref Range Status 08/23/2022 4.0 3.7 - 5.1 mmol/L Final CO2 Date Value Ref Range Status 08/23/2022 26 22 - 30 mmol/L Final Albumin Date Value Ref Range Status 08/07/2021 3.5 (L) 3.9 - 4.9 g/dL Final Comment: Rechecked ALT Date Value Ref Range Status 08/07/2021 18 7 - 38 U/L Final AST Date Value Ref Range Status 08/07/2021 21 13 - 35 U/L Final Gamma-Glutamyltransferase (GGT), Serum: No results found for: GGT Vitamin B12: No components found for: ADBVEOIN50 Vitamin D, Total: No results found for: VITD Thyroid Stimulating Hormone (TSH): TSH Date Value Ref Range Status 08/20/2022 3.040 0.270 - 4.200 mIU/L Final Comment: If the patient is , TSH reference range varies by gestational period: First Trimester (weeks 9-12): 0.180-2.990 mIU/L Second Trimester: 0.110-3.980 mIU/L Third Trimester: 0.480-4.710 mIU/L Irving Simpson et al. A Practical Approach for the Verifications and Determination of Site- and Trimester-Specific Reference Intervals for Thyroid Function tests in . Thyroid, 2019:29:3:412-420.Rodríguez [address] et al. 2017 Guidelines of the [place] [employer] for the Diagnosis and Management of Thyroid Disease during and the . Thyroid, 2017:27:3:315-389. Hemoglobin A1C: No results found for: HGBA1C Lipid Panel: Cholesterol, Total Date Value Ref Range Status 02/16/2023 278 (H) <200 mg/dL Final Comment: <200 mg/dL, Desirable 200-239 mg/dL, Borderline high >239 mg/dL, High HDL Cholesterol Date Value Ref Range Status 02/16/2023 35 (L) >39 mg/dL Final Comment: 40-59 mg/dL, Acceptable >59 mg/dL, High: Negative risk factor for coronary heart disease <40 mg/dL, Low: Positive risk factor for coronary heart disease LDL Cholesterol Date Value Ref Range Status 08/13/2021 128 (H) <100 mg/dL Final Comment: <100 mg/dL, Optimal 100-129 mg/dL, Near optimal/above optimal 130-159 mg/dL, Borderline high 160-189 mg/dL, High >189 mg/dL, Very high Secondary prevention optimal LDL Cholesterol levels are recommended to be < 70 mg/dL DATA REVIEWED: Electronic medical record DIAGNOSIS: Current severe 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 (hcc) Generalized anxiety disorder Post-traumatic stress disorder, acute TREATMENT PLAN: Reviewed symptoms, medications and their side effects, labs, and progress being made. 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 For those experiencing a suicidal crisis: --call the National Suicide Prevention Lifeline at 988 (829-213-2061) --text the Crisis Text Line (text HOME to 253065) --call 911 and let them know you are having a mental health crisis or go to your nearest Emergency Room for stabilization. --You can also call Mobile Crisis at [phone]. Discussed side effects including any black box warnings, risks and benefits of medications, and alternatives. ASSESSMENT/PLAN: 1. Current severe 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 (HCC) - ICD9: 296.23, ICD10: F32.2 --Per plan above - MIRTAZAPINE 30 MG TABLET - VENLAFAXINE ER 150 MG CAPSULE,EXTENDED RELEASE 24 HR - VENLAFAXINE ER 37.5 MG CAPSULE,EXTENDED RELEASE 24 HR 2. Generalized anxiety disorder - ICD9: 300.02, ICD10: F41.1 --Per plan above - MIRTAZAPINE 30 MG TABLET - VENLAFAXINE ER 150 MG CAPSULE,EXTENDED RELEASE 24 HR - VENLAFAXINE ER 37.5 MG CAPSULE,EXTENDED RELEASE 24 HR 3. Post-traumatic stress disorder, acute - ICD9: 309.81, ICD10: F43.11 --Per plan above - GABAPENTIN 100 MG CAPSULE MEDICATION CHANGES: See above for changes Follow Up: 1 week Medical Decision Making: Problems: High: Chronic illness with severe change Risk: Moderate: Drug management Medical Decision Making Level: 4 - Moderate ADD ON PSYCHOTHERAPY CODE : No Some elements copied from my note on 08/14/24, which have been updated where appropriate, and all reflect my current medical decision making from today. SIGNATURE: Jeanette Miller APRN.CNP PATIENT NAME: Reinaldo Warren DATE: 10/29/2024 TIME: 11:03 AM [facility] Telephone encounter Note * Telephone Encounter - Matt Bradshaw LPN - 10/23/2024 11:43 AM EST Nurse spoke to patient regarding message . Patient reports the Remeron did work a lot in the beginning Her depression and anxiety have increased due to a work situation which she did not go into detail about, but did state it is being handled by management and they are being fair to whatever is happening. Patient sounding tearful as when nurse called, she was at work. Patient reports passive SI with no plan. Does not feel wanted Patient denies HI and feels safe at home. Patient is engaged with therapy,reports as needed and is calling today to schedule an appointment . [facility] Miscellaneous Notes* Telephone Encounter - Matt Bradshaw LPN - 10/23/2024 11:43 AM EST Nurse spoke to patient regarding message . Patient reports the Remeron did work a lot in the beginning Her depression and anxiety have increased due to a work situation which she did not go into detail about, but did state it is being handled by management and they are being fair to whatever is happening. Patient sounding tearful as when nurse called, she was at work. Patient reports passive SI with no plan. Does not feel wanted Patient denies HI and feels safe at home. Patient is engaged with therapy,reports as needed and is calling today to schedule an appointment . * Telephone Encounter - Jeanette Miller APRN.CNP - 10/23/2024 11:24 AM EST Please call for further details. Remeron was increased at last visit 08/14/24 but has not followed up since. How did that go? Also, has she followed up with therapist recommended after completion of IOP? * Telephone Encounter - Agnieszka Hughes - 10/23/2024 11:16 AM EST Patient called and stated, she is dealing with a lot right now and would like a increase of her medications. Patient also stated she would like provider or nurse to reach and talk to her about her situation. I scheduled patient and appointment for 10/29/2024 Thank you Agnieszka Hughes October 23, 2024 11:19 AM documented in this encounterF[facility]01-16-2025 Telephone encounter Note * Telephone Encounter - Jeanette Miller APRN.CNP - 10/23/2024 11:24 AM EST Please call for further details. Remeron was increased at last visit 08/14/24 but has not followed up since. How did that go? Also, has she followed up with therapist recommended after completion of IOP? [facility] Tele[facility] encounter Note* Telephone Encounter - Agnieszka Hughes - 10/23/2024 11:16 AM EST Patient called and stated, she is dealing with a lot right now and would like a increase of her medications. Patient also stated she would like provider or nurse to reach and talk to her about her situation. I scheduled patient and appointment for 10/29/2024 Thank you Agnieszka Hughes October 23, 2024 11:19 AM [facility]11-[facility]24 NoteHNO ID: [id number] Author: SERINA CANSECO MA Service: ? Author Type: Orthopedic Shoe Fitter Type: Progress Notes Filed: 08/28/2024 13:11 Note Text: POPULATION HEALTH NAVIGATION OUTREACH Action/FYI Spoke to patient who declined to schedule. Already had flu shot. Reason for Outreach Care Gap/HCC or Scheduling Wellness Visits Care Gaps due: Medicare Annual Wellness Visit Flu Vaccine Patient Contacted: Spoke to patient/parent/or legal guardian Patient identified by name and : Yes Care Gap/HCC/Scheduling Wellness actions taken: Patient declined: Doesn't feel it's necessary Navigation Signature: Serina Canseco MA August 28, 2024 1:08 [facility]11-21-2024 History of Present illness Narrative* ManningtonSerina rodriguez ILEANA - 08/28/2024 1:08 PM EST POPULATION HEALTH NAVIGATION OUTREACH Action/FYI Spoke to patient who declined to schedule. Already had flu shot. Reason for Outreach Care Gap/HCC or Scheduling Wellness Visits Care Gaps due: Medicare Annual Wellness Visit Flu Vaccine Patient Contacted: Spoke to patient/parent/or legal guardian Patient identified by name and : Yes Care Gap/HCC/Scheduling Wellness actions taken: Patient declined: Doesn't feel it's necessary Navigation Signature: Serina Canseco MA August 28, 2024 1:08 PM documented in this encounterFlower Hospital11-21-2024 NotePatient Outreach (NETNAV) REINALDO WARREN ([id number]) 1985 F Date Time Provider Department 08/28/24 AJITH SERINAEVELYN COLLINS During your visit today, we recorded the following information about you: Ajith SerinaILEANA parra 08/28/2024 1:11 PM Signed POPULATION HEALTH NAVIGATION OUTREACH Action/FYI Spoke to patient who declined to schedule. Already had flu shot. Reason for Outreach Care Gap/HCC or Scheduling Wellness Visits Care Gaps due: Medicare Annual Wellness Visit Flu Vaccine Patient Contacted: Spoke to patient/parent/or legal guardian Patient identified by name and : Yes Care Gap/HCC/Scheduling Wellness actions taken: Patient declined: Doesn't feel it's necessary Navigation Signature: Serina Canseco MA August 28, 2024 1:08 PM Allergies As of Date: 08/28/2024 Noted Allergy Reaction AUGMENTIN (AMOXICILLIN-POT CLAVUL*12/16/2010 1 - Mental Status Change SHELLFISH 12/12/2010 7 - Swelling TYLENOL #3 (CODEINE) 08/06/2007 7 - Swelling VENOM-HONEY BEE 12/28/2018 7 - Swelling Date Reviewed: 05/09/2024 Reviewed by: Ngozi Nguyen MA - Fully Assessed Reason for Visit: Population Health Navigation Outreach [3910] Cmt: NAZARIO BUTLER Surge list 2023 Prescriptions as of 08/28/2024 - mirtazapine (REMERON) 30 mg tablet Take 1 tablet by mouth daily at bedtime. - venlafaxine ER (EFFEXOR XR) 150 mg 24 hr capsule Take 1 capsule by mouth once daily. with 37.5 mg capsule for a total of 187.5 mg daily - venlafaxine ER (EFFEXOR XR) 37.5 mg 24 hr capsule Take 1 capsule by mouth once daily. with 150 mg capsule for a total of 187.5 mg daily - gabapentin (NEURONTIN) 100 mg capsule Take 1 capsule by mouth three times a day as needed (for anxiety) for up to 30 days. - lisinopril (ZESTRIL) 40 mg tablet Take 1 tablet by mouth once daily. - rosuvastatin (CRESTOR) 5 mg tablet take 1 tablet by mouth everyday at bedtime - linaclotide (LINZESS) 145 mcg capsule Take by mouth. - cyclobenzaprine (FLEXERIL) 10 mg tablet Take 1 tablet by mouth three times daily as needed for muscle spasm. Problem List As Of Date 08/28/2024 Noted Resolved Adjustment disorder with depressed mood [F43.21]10/06/2008 Asthma, mild intermittent [J45.20] 01/27/2009 Glycosuria [R81] 07/06/2009 07/18/2013 Closed fracture of metacarpal bone(s), site uns*01/05/2010 02/03/2013 Hemorrhoids [K64.9] 05/19/2011 02/03/2013 Irregular menstrual bleeding [N92.6] 06/13/2012 11/18/2012 Postcoital bleeding [N93.0] 06/13/2012 09/26/2012 Amenorrhea [N91.2] 10/15/2012 02/03/2013 History of [Z98.891] 10/31/2012 07/18/2013 History of gestational diabetes [Z86.32] 10/31/2012 10/13/2020 History of hypertension [Z86.79] 10/31/2012 08/14/2019 Reading difficulty [F81.0] 10/31/2012 08/14/2019 Family history of defects [Z82.79] 10/31/2012 08/14/2019 History of anesthesia complications [Z87.898] 10/31/2012 07/18/2013 Rubella non-immune status, antepartum [O09.899,*11/01/2012 07/18/2013 LOC (loss of consciousness) [R40.20] 02/03/2013 07/18/2013 Abnormal glucose complicating [O99.81*03/16/2013 07/18/2013 Nipple discharge [N64.52] 02/19/2016 08/14/2019 Lump or mass in breast [N63.0] 02/19/2016 08/14/2019 Umbilical hernia [K42.9] 06/07/2017 08/14/2019 Intramural uterine fibroid [D25.1] 08/14/2019 Hypertension, essential [I10] 04/02/2020 Intermittent alternating 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] 05/31/2020 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] 05/31/2020 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] 05/31/2020 Myopic astigmatism of both eyes [H52.203, H52.1*05/31/2020 Post-traumatic stress disorder, acute [F43.11] 07/01/2020 Uncontrolled type 2 diabetes mellitus (HCC) [IM*10/13/2020 Seizures (HCC) [R56.9] 10/13/2020 Dizziness [R42] 08/05/2021 Syncope [R55] 08/05/2021 Hypotension [I95.9] 08/05/2021 AMS (altered mental status) [R41.82] 08/20/2022 08/23/2022 Acute vaginitis [N76.0] 02/05/2022 History of cerebrovascular accident [Z86.73] 09/27/2022 History of syncope [Z87.898] 09/27/2022 Hyperglycemia [R73.9] 02/05/2022 Hypokalemia [E87.6] 09/27/2022 Mass of shoulder region [R22.30] 09/27/2022 Nausea, vomiting, and diarrhea [R11.2, R19.7] 09/21/2021 Puncture wound of toe [S91.139A] 09/27/2022 Severe acute respiratory syndrome coronavirus 2*02/12/2021 Shortness of breath [R06.02] 09/27/2022 Simple partial seizure, consciousness not impai*09/27/2022 Sinus bradycardia [R00.1] 09/27/2022 Spasm of cervical paraspinous muscle [M62.838] 09/27/2022 Type 2 diabetes mellitus with other specified c* Urinary tract infection [N39.0] 09/27/2022 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 with 75 mg capsule for a total of 187.5 mg daily Please process accordingly Agnieszka Hughes [facility]11-07-2024 Miscellaneous Notes* Telephone Encounter - Agnieszka Hughes - 08/14/2024 10:36 AM EST The following medication(s) is being requested: LAST APPT - 08/14/2024 NEXT APPT - 09/23/2024 Requested Prescriptions Pending Prescriptions Disp Refills venlafaxine ER (EFFEXOR XR) 37.5 mg 24 hr capsule 90 capsule 0 Sig: Take 1 capsule by mouth once daily. with 75 mg capsule for a total of 187.5 mg daily Please process accordingly Agnieszka Hughes [facility] NoteHNO ID: [id number] Author: JEANETTE MILLER APRN.LOR Service: ? Author Type: Nurse Practitioner Type: Progress Notes Filed: 08/14/2024 08:26 Note Text: FOLLOW-UP PSYCHIATRIC PROGRESS NOTE Visit Type:Virtual Visit utilizing two-way audio and video for at least a portion of the visit. Consent for virtual visit obtained verbally. Confidentiality limitations with virtual visits reviewed with the patient and guardian, if present, who have accepted the risk verbally prior to proceeding with encounter. I have communicated my name and active licensure. The patient's identity and physical location were verified at the time of this visit. Either the patient or their legal sales representative uniforms has been informed of the risks and benefits of -- and alternatives to -- treatment through a remote evaluation and consents to proceed with the evaluation remotely. Reason for Visit: Outpatient follow-up and safety monitoring of previously prescribed psychiatric medication, psychotherapy or other treatment CHIEF COMPLAINT: Follow up for medication management HPI: Had done an IOP at and then got started with a new psychiatry provider but I just couldn't click with her and I felt like I was getting the run around which brings her back to [facility] today [place] that the IOP program it helped me a lot and I got a lot out of it Currently taking Effexor XR 187.5 mg once daily and Remeron 15 mg once daily at bedtime which are working well Does wonder if she could benefit from an increase in Remeron because she does have some days that are more of a struggle Sleep has been a lot better Had surgery on her hand due to a finger infection Has been doing PT for a shoulder problem - this has somewhat limited her activity Has not followed up with outpatient therapy yet - is willing to Work has been going well but is on leave currently due to her shoulder Overall feels she is doing pretty well but has just a little issue with anxiety and depressive symptoms, typically in the afternoon Interval Progress since previous visit: improved VITAL SIGNS: There were no vitals filed for this visit. ROS: MUSCULOSKELETAL: See HPI PSYCH: See HPI All other systems negative. PATIENT DATA: MILENA-7 More data exists 12/28/2023 01/30/2024 03/14/2024 04/11/2024 08/14/2024 MILENA-7 All Questions Feeling nervous, anxious, or on edge Several days Nearly Everyday - Several days Not at all Not being able to stop or control worrying Not at all Nearly Everyday - Several days Not at all Worrying too much about different things Several days Nearly Everyday - Several days Not at all Trouble relaxing Several days Nearly Everyday Several days Several days Not at all Being so restless that it is hard to sit still Several days Nearly Everyday - Several days Not at all Becoming easily annoyed or irritable Several days Several days Several days Several days Not at all Feeling afraid, as if something awful might happen Several days Several days - Several days - MILENA-7 Score 6 17 - 7 - Details PHQ-9 More data exists 12/28/2023 01/30/2024 03/14/2024 04/11/2024 08/14/2024 PHQ-9 Scores Little interest or pleasure in doing things: Not at all Not at all Not at all Not at all More than half the days Feeling down, depressed, or hopeless: Several days Not at all Several days Not at all More than half the days Trouble falling or staying asleep, or sleeping too much Several days Several days Not at all Several days Several days Feeling tired or having little energy Several days Several days Several days Several days More than half the days Poor appetite or overeating Not at all Not at all Not at all Not at all Not at all Feeling bad about yourself - or that you are a failure or have let yourself or your family down Not at all Not at all Several days Not at all Not at all Trouble concentrating on things, such as reading the newspaper or watching television Not at all Not at all Not at all Not at all More than half the days Moving or speaking so slowly that other people could have noticed. Or the opposite - being so fidgety or restless that you have been moving around a lot more than usual Not at all Not at all Not at all Not at all Not at all Thoughts that you would be better off , or of hurting yourself in some way Not at all Not at all Not at all Not at all Not at all PHQ-9 Score 3 2 3 2 9 Details MENTAL STATUS EXAM: CONSTITUTIONAL: Well groomed, Appropriately dressed, Casually dressed, Well developed, Well nourished ORIENTATION: Person, Place, Time and Situation MEMORY: No deficiencies noted CONCENTRATION: Normal MOOD: euthymic AFFECT: Full and appropriate to topic SPEECH : Clear AND distinct LANGUAGE : Normal ASSOCIATIONS: Intact THOUGHT PROCESS : Logical, Coherent, and Rational PROGRESSION : There was no evidence of disturbance in thought perception or progression. FUND OF KNOWLEDGE : Appropriate and A (more content not included)...[facility]11-07-2024 History of Present illness Narrative* Jeanette Miller APRN.PUBLIC SAFETY TELECOMMUNICATOR - 08/14/2024 8:07 AM EST Images from the original note were not included. FOLLOW-UP PSYCHIATRIC PROGRESS NOTE Visit Type:Virtual Visit utilizing two-way audio and video for at least a portion of the visit. Consent for virtual visit obtained verbally. Confidentiality limitations with virtual visits reviewed with the patient and guardian, if present, who have accepted the risk verbally prior to proceeding with encounter. I have communicated my name and active licensure. The patient's identity and physical location were verified at the time of this visit. Either the patient or their legal sales representative uniforms has been informed of the risks and benefits of -- and alternatives to -- treatment through a remote evaluation and consents to proceed with the evaluation remotely. Reason for Visit: Outpatient follow-up and safety monitoring of previously prescribed psychiatric medication, psychotherapy or other treatment CHIEF COMPLAINT: Follow up for medication management HPI: Had done an IOP at and then got started with a new psychiatry provider but I just couldn't click with her and I felt like I was getting the run around which brings her back to [facility] today [place] that the IOP program it helped me a lot and I got a lot out of it Currently taking Effexor XR 187.5 mg once daily and Remeron 15 mg once daily at bedtime which are working well Does wonder if she could benefit from an increase in Remeron because she does have some days that are more of a struggle Sleep has been a lot better Had surgery on her hand due to a finger infection Has been doing PT for a shoulder problem - this has somewhat limited her activity Has not followed up with outpatient therapy yet - is willing to Work has been going well but is on leave currently due to her shoulder Overall feels she is doing pretty well but has just a little issue with anxiety and depressive symptoms, typically in the afternoon Interval Progress since previous visit: improved VITAL SIGNS: There were no vitals filed for this visit. ROS: MUSCULOSKELETAL: See HPI PSYCH: See HPI All other systems negative. PATIENT DATA: MILENA-7 More data exists 12/28/2023 01/30/2024 03/14/2024 04/11/2024 08/14/2024 MILENA-7 All Questions Feeling nervous, anxious, or on edge Several days Nearly Everyday - Several days Not at all Not being able to stop or control worrying Not at all Nearly Everyday - Several days Not at all Worrying too much about different things Several days Nearly Everyday - Several days Not at all Trouble relaxing Several days Nearly Everyday Several days Several days Not at all Being so restless that it is hard to sit still Several days Nearly Everyday - Several days Not at all Becoming easily annoyed or irritable Several days Several days Several days Several days Not at all Feeling afraid, as if something awful might happen Several days Several days - Several days - MILENA-7 Score 6 17 - 7 - Details PHQ-9 More data exists 12/28/2023 01/30/2024 03/14/2024 04/11/2024 08/14/2024 PHQ-9 Scores Little interest or pleasure in doing things: Not at all Not at all Not at all Not at all More than half the days Feeling down, depressed, or hopeless: Several days Not at all Several days Not at all More than half the days Trouble falling or staying asleep, or sleeping too much Several days Several days Not at all Several days Several days Feeling tired or having little energy Several days Several days Several days Several days More thanhalf the days Poor appetite or overeating Not at all Not at all Not at all Not at all Not at all Feeling bad about yourself - or that you are a failure or have let yourself or your family down Notat all Not at all Several days Not at all Not at all Trouble concentrating on things, such as reading the newspaper or watching television Not at all Not at all Not at all Not at all More than half the days Moving or speaking so slowly that other people could have noticed. Or the opposite - being so fidgety or restless that you have been moving around a lot more than usual Not at all Not at all Not at all Not at all Not at all Thoughts that you would be better off , or of hurting yourself in some way Not at all Not at all Not at all Not at all Not at all PHQ-9 Score 3 2 3 2 9 Details MENTAL STATUS EXAM: CONSTITUTIONAL: Well groomed, Appropriately dressed, Casually dressed, Well developed, Well nourished ORIENTATION: Person, Place, Time and Situation MEMORY: No deficiencies noted CONCENTRATION: Normal MOOD: euthymic AFFECT: Full and appropriate to topic SPEECH : Clear & distinct LANGUAGE : Normal ASSOCIATIONS: Intact THOUGHT PROCESS : Logical, Coherent, and Rational PROGRESSION : There was no evidence of disturbance in thought perception or progression. FUND OF KNOWLEDGE : Appropriate and Adequate SUICIDE: Currently denies suicidal thoughts, plan, or intent. HOMICIDE: Currently denies homicidal thoughts, plan, or intent. Labwork: CBC and Differential: WBC Date Value Ref Range Status 08/23/2022 6.72 3.70 - 11.00 k/uL Final RBC Date Value Ref Range Status 08/23/2022 4.47 3.90 - 5.20 m/uL Final Hematocrit Date Value Ref Range Status 08/23/2022 38.3 36.0 - 46.0 % Final MCV Date Value Ref Range Status 08/23/2022 85.7 80.0 - 100.0 fL Final MCH Date Value Ref Range Status 08/23/2022 29.8 26.0 - 34.0 pg Final MCHC Date Value Ref Range Status 08/23/2022 34.7 30.5 - 36.0 g/dL Final Platelet Count Date Value Ref Range Status 08/23/2022 221 150 - 400 k/uL Final MPV Date Value Ref Range Status 08/23/2022 9.9 9.0 - 12.7 fL Final Comprehensive Metabolic Panel: BUN Date Value Ref Range Status 08/23/2022 14 7 - 21 mg/dL Final Creatinine Date Value Ref Range Status 08/23/2022 0.68 0.58 - 0.96 mg/dL Final Sodium Date Value Ref Range Status 08/23/2022 134 (L) 136 - 144 mmol/L Final Potassium Date Value Ref Range Status 08/23/2022 4.0 3.7 - 5.1 mmol/L Final CO2 Date Value Ref Range Status 08/23/2022 26 22 - 30 mmol/L Final Albumin Date Value Ref Range Status 08/07/2021 3.5 (L) 3.9 - 4.9 g/dL Final Comment: Rechecked ALT Date Value Ref Range Status 08/07/2021 18 7 - 38 U/L Final AST Date Value Ref Range Status 08/07/2021 21 13 - 35 U/L Final Gamma-Glutamyltransferase (GGT), Serum: No results found for: GGT Vitamin B12: No components found for: [id number] Vitamin D, Total: No results found for: VITD Thyroid Stimulating Hormone (TSH): TSH Date Value Ref Range Status 08/20/2022 3.040 0.270 - 4.200 mIU/L Final Comment: If the patient is , TSH reference range varies by gestational period: First Trimester (weeks 9-12): 0.180-2.990 mIU/L Second Trimester: 0.110-3.980 mIU/L Third Trimester: 0.480-4.710 mIU/L Irving Simpson et al. A Practical Approach for the Verifications and Determination of Site- and Trimester-Specific Reference Intervals for Thyroid Function tests in . Thyroid, 2019:29:3:412-420.Rodríguez [address], et al. 2017 Guidelines of the [place] Thyroid Association for the Diagnosis and Management of Thyroid Disease during and the . Thyroid, 2017:27:3:315-389. Hemoglobin A1C: No results found for: HGBA1C Lipid Panel: Cholesterol, Total Date Value Ref Range Status 02/16/2023 278 (H) <200 mg/dL Final Comment: <200 mg/dL, Desirable 200-239 mg/dL, Borderline high >239 mg/dL, High HDL Cholesterol Date Value Ref Range Status 02/16/2023 35 (L) >39 mg/dL Final Comment: 40-59 mg/dL, Acceptable >59 mg/dL, High: Negative risk factor for coronary heart disease <40 mg/dL, Low: Positive risk factor for coronary heart disease LDL Cholesterol Date Value Ref Range Status 08/13/2021 128 (H) <100 mg/dL Final Comment: <100 mg/dL, Optimal 100-129 mg/dL, Near optimal/above optimal 130-159 mg/dL, Borderline high 160-189 mg/dL, High >189 mg/dL, Very high Secondary prevention optimal LDL Cholesterol levels are recommended to be < 70 mg/dL DATA REVIEWED: Electronic medical record DIAGNOSIS: Current severe 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 (hcc) (primary encounter diagnosis) Generalized anxiety disorder Ptsd (post-traumatic stress disorder) TREATMENT PLAN: Reviewed symptoms, medications and their side effects, labs, and progress being made. Discussed life situations and coping skills Support and encouragement provided PLAN AND FOLLOW UP: Medications: Continue: --Effexor XR 187.5 mg once daily Change: --Remeron 15 mg to 30 mg once daily at bedtime for sleep and anxiety Other: --encouraged to follow up with outpatient therapist recommended from [facility] Next appointment: --Schedule in 4-6 weeks or sooner if needed --To call the office call [phone] option [phone] (for any questions or concerns) or you may call [facility] at [phone] --Message in [employer] any questions or concerns. For those experiencing a suicidal crisis: --call the National Suicide Prevention Lifeline at 980 (443-816-7136) --text the Crisis Text Line (text HOME to 571251) --call 911 and let them know you are having a mental health crisis or go to your nearest Emergency Room for stabilization. --You can also call [employer] [facility] at [phone]. Discussed side effects including any black box warnings, risks and benefits of medications, and alternatives. ASSESSMENT/PLAN: 1. Current severe 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 (HCC) - ICD9: 296.23, ICD10: F32.2 (primary diagnosis) --Per plan above - MIRTAZAPINE 30 MG TABLET - VENLAFAXINE ER 37.5 MG CAPSULE,EXTENDED RELEASE 24 HR - VENLAFAXINE ER 150 MG CAPSULE,EXTENDED RELEASE 24 HR 2. Generalized anxiety disorder - ICD9: 300.02, ICD10: F41.1 --Per plan above - MIRTAZAPINE 30 MG TABLET - VENLAFAXINE ER 37.5 MG CAPSULE,EXTENDED RELEASE 24 HR - VENLAFAXINE ER 150 MG CAPSULE,EXTENDED RELEASE 24 HR 3. PTSD (post-traumatic stress disorder) - ICD9: 309.81, ICD10: F43.10 --Per plan above MEDICATION CHANGES: See above for changes Follow Up: 4-6 weeks Medical Decision Making: Problems: Moderate: 2+ stable chronic illnesses Risk: Moderate: Drug management Medical Decision Making Level: 4 - Moderate ADD ON PSYCHOTHERAPY CODE : No Some elements copied from my note on 04/11/24, which have been updated where appropriate, and all reflect my current medical decision making from today. SIGNATURE: Jeanette Miller APRN.CNP PATIENT NAME: Reinaldo Warren DATE: 08/14/2024 TIME: 8:07 AM [facility] Evaluation + Plan note* Assessment & Plan Note - Elvis Randolph MD - 07/31/2024 4:54 PM EDTAssociated Problem(s): Adhesive capsulitis of right shoulder Assessment: Adhesive capsulitis much improved from the cortisone injection delivered intra-articular. She is waiting on physical therapy to initiate. She is doing a home exercise program based on the stretches I gave her at her last visit. Plan: Initiate physical therapy in the next week to 2. Continue doing the home exercise program. Motrin 600 mg p.o. twice daily or even 3 times daily. Use as directed. Take with food. Follow-up in 3 to 4 weeks for reevaluation. [facility] Work Phone: 1(357) 743-956810-24-2024 Miscellaneous Notes* Assessment & Plan Note - Elvis Randolph MD - 07/31/2024 4:54 PM EDTAssociated Problem(s): Adhesive capsulitis of right shoulder Assessment: Adhesive capsulitis much improved from the cortisone injection delivered intra-articular. She is waiting on physical therapy to initiate. She is doing a home exercise program based on the stretches I gave her at her last visit. Plan: Initiate physical therapy in the next week to 2. Continue doing the home exercise program. Motrin 600 mg p.o. twice daily or even 3 times daily. Use as directed. Take with food. Follow-up in 3 to 4 weeks for reevaluation. [facility] Work Phone: 1(647) 467-786010-24-2024 History of Present illness Narrative* Elvis Randolph MD - 07/31/2024 4:45 PM EDT Assessment/Plan Encounter Diagnoses: Rotator cuff tendonitis, right Adhesive capsulitis of right shoulder Assessment: Adhesive capsulitis much improved from the cortisone injection delivered intra-articular. She is waiting on physical therapy to initiate. She is doing a home exercise program based on the stretches I gave her at her last visit. Plan: Initiate physical therapy in the next week to 2. Continue doing the home exercise program. Motrin 600 mg p.o. twice daily or even 3 times daily. Use as directed. Take with food. Follow-up in 3 to 4 weeks for reevaluation. Subjective Patient ID: Reinaldo Warren is a 39 y.o. female. Chief Complaint: Pain and Follow-up of the Right Shoulder (X-RAY 07-06-24/ER 07-15-24) Last Surgery: No surgery found Last Surgery Date: No surgery found HPI 39-year-old who is much improved from her initial presentation with right shoulder arthrofibrosis. The resting pain has mainly diminished. She still has pain with range of motion but it is not as obnoxious to her. The cortisone injection gave her several days of good relief but that is starting to wear off. She has yet to initiate her physical therapy. OBJECTIVE: ORTHO EXAM Right shoulder exam She has some global tenderness but much improved from her previous evaluation. Forward elevation actively to about 60 degrees and then with some guarding to 90. External rotation with her arm at her side to 60 degrees. She actively abducts to 90 degrees and then has pain. With her arm at 90 she had 70 degrees of external rotation and 30 degrees of internal rotation. Theinternal rotation causes her guarding and pain. Neurovascularly intact distally. IMAGE RESULTS: Point of Care Ultrasound These images are not reportable by radiology and will not be interpreted by Radiologists. ULTRASOUND None Procedures Orders Placed This Encounter Point of Care Ultrasound Referral to Physical Therapy documented [facility] Work Phone: 1(283) 268-378710-24-2024 History of Present illness Narrative* Viki Blue, PROSTHETICS LAB TECHNICIAN-PUBLIC SAFETY TELECOMMUNICATOR - 07/31/2024 10:30 AM EDT Subjective Patient ID: Reinaldo Warren is a 39 y.o. female who presents for bipolar II and PTSD. Virtual or Telephone Consent An interactive audio and video telecommunication system which permits real time communications between the patient (at the originating site) and provider (at the distant site) was utilized to providethis telehealth service. Verbal consent was requested and obtained from Reinaldo Warren on this date, 07/31/24 for a telehealth visit. HPI She is currently off of work d/t a frozen shoulder. She feels it has declined her mood d/t feeling her independence has ripped away. With the use of her medication regiment she states her mood has been stable. She reports that she is able to sleep throughout the night and anxiety has improved. Review of Systems Constitutional: Negative. HENT: Negative. Eyes: Negative. Respiratory: Negative. Objective Physical Exam Psychiatric: Attention and Perception: Attention normal. Mood and Affect: Mood is depressed. Speech: Speech normal. Behavior: Behavior is cooperative. Thought Content: Thought content normal. Cognition and Memory: Cognition normal. Judgment: Judgment normal. Acute risk of self-harm remains low despite current stressors (acute and chronic). No reported thoughts of self-harm plan, or intent. She is future- oriented, feels responsibility for her family, and has no hx of SA or hospitalizations. Assessment/Plan Homer Warren is a 39 y/o CF with a hx of bipolar II and PTSD. With the use of aripiprazole 15 mg she feels that her mood has improved and she is no longer having irritable outbursts. Continue aripiprazole 15 mg to manage bipolar disorder. Continue Trazodone 100 mg to target insomnia. Continue Gabapentin 100 mg TID to target anxiety. Continue mirtazapine 15 mg to target insomnia. Continue venlafaxine 187.5 mg to target mood and PTSD. Provided with crisis/emergency resources, including the Crisis Hopeline , Crisis TextLine (text 2YDIS xj 464488) and the National Suicide Prevention Lifeline hotline . Agrees to call 911 or go to the nearest emergency department if s/he feels unsafe, or has suicidal thinking with a plan or intent. Acute risk of self-harm remains low despite current stressors (acute and chronic). No reported thoughts of self-harm plan, or intent. She is future- oriented, feels responsibility for her family, and has no hx of SA or hospitalizations. Next appointment: 2 weeks [address] [facility] Work Phone: 1(950) 193-458810-11-2024 Evaluation + Plan note* Assessment & Plan Note - Elvis Randolph MD - 07/18/2024 2:52 PM EDTAssociated Problem(s): Adhesive capsulitis of right shoulder Assessment: Frozen shoulder syndrome Plan: Intra-articular cortisone injection of 40 mg was done under ultrasound control. The patient had very good lidocaine suppression test. She was able to painlessly forward elevate to 150 degrees. Physical therapy for frozen shoulder syndrome. Vicodin 5 mg 12 tablets were called into the patient. Motrin 600 mg p.o. 3 times daily as needed pain take as directed with meals [facility] Work Phone: [phone] Miscellaneous Notes* Assessment & Plan Note - Elvis Randolph MD - 07/18/2024 2:52 PM EDTAssociated Problem(s): Adhesive capsulitis of right shoulder Assessment: Frozen shoulder syndrome Plan: Intra-articular cortisone injection of 40 mg was done under ultrasound control. The patient had very good lidocaine suppression test. She was able to painlessly forward elevate to 150 degrees. Physical therapy for frozen shoulder syndrome. Vicodin 5 mg 12 tablets were called into the patient. Motrin 600 mg p.o. 3 times daily as needed pain take as directed with meals [facility] Work Phone: [phone] 616-622610-10-2024 History of Present illness Narrative* Elvis Randolph MD - 07/17/2024 1:00 PM EDTAssociated Order(s): L Inj/Asp: R glenohumeral Post-Procedure Diagnose(s): Rotator cuff tendonitis, right Assessment/Plan Encounter Diagnoses: Rotator cuff tendonitis, right Adhesive capsulitis of right shoulder Assessment: Frozen shoulder syndrome Plan: Intra-articular cortisone injection of 40 mg was done under ultrasound control. The patient had very good lidocaine suppression test. She was able to painlessly forward elevate to 150 degrees. Physical therapy for frozen shoulder syndrome. Vicodin 5 mg 12 tablets were called into the patient. Motrin 600 mg p.o. 3 times daily as needed pain take as directed with meals Subjective Patient ID: Reinaldo Warren is a 39 y.o. female. Chief Complaint: Pain of the Right Shoulder (X-RAY 07-06-24/ER 07-15-24) Last Surgery: No surgery found Last Surgery Date: No surgery found HPI 39-year-old female who comes in today for evaluation of her right shoulder. There was concern over a possible shoulder infection. She was seen in the emergency room and her CRP was 6 but her ESR was 1 her white count was within normal limits and her clinical exam was recorded as benign for shoulder infection. 9 weeks prior she had had an index finger infection which required Ancelmo incisions. Shehas subsequently I believe earlier this morning seeing her surgeon for this problem and he felt like she was healing well with no concerns about ongoing infection in the finger. OBJECTIVE: ORTHO EXAM Right shoulder exam She has pain with range of motion. Forward elevation was 30 degrees and then limited by guarding. Abduction was 25 degrees and limited by guarding. External rotation with her arm at her side was 30 degrees. Internal rotation with her arm at her side was cross body. She was globally tender about the shoulder but most of her tenderness was in the posterior glenohumeral sulcus and the anterior glenohumeral sulcus. She was mildly tender to palpation over the AC joint, anterior acromial area, deltoid insertion, and globally in the proximal humeral area. She did not have a palpable effusion. She is neurovascularly intact distally. IMAGE RESULTS: Point of Care Ultrasound These images are not reportable by radiology and will not be interpreted by Radiologists. ULTRASOUND L Inj/Asp: R glenohumeral on 07/18/2024 2:56 PM Medications: 40 mg triamcinolone acetonide 40 mg/mL Orders Placed This Encounter Point of Care Ultrasound HYDROcodone-acetaminophen ([place]) 5-325 mg tablet documented [facility] Work Phone: [phone] 150-541810-09-2024 Evaluation + Plan note* Assessment & Plan Note - VIKKI Wilkes - 07/16/2024 9:16 AM EDTAssociated Problem(s): Rotator cuff tendonitis, right We discussed symptom control with completing previously prescribed ketorolac, OTC Tylenol and topical pain relievers. Patient was referred to ED for evaluation for concern of infection of postoperative site of hand, significant aggravation of shoulder symptoms today with positive discomfort to the axillary lymph nodes. Keep follow-up appointment as scheduled in 2 weeks Patient in agreement with plan of care. This note was generated using duuin software. It may contain errors in wording, punctuation or spelling. [facility] Work Phone: [phone]) 999-180010-09-2024 Miscellaneous Notes* Assessment & Plan Note - VIKKI Wilkes - 07/16/2024 9:16 AM EDTAssociated Problem(s): Rotator cuff tendonitis, right We discussed symptom control with completing previously prescribed ketorolac, OTC Tylenol and topical pain relievers. Patient was referred to ED for evaluation for concern of infection of postoperative site of hand, significant aggravation of shoulder symptoms today with positive discomfort to the axillary lymph nodes. Keep follow-up appointment as scheduled in 2 weeks Patient in agreement with plan of care. This note was generated using duuin software. It may contain errors in wording, punctuation or spelling. * Assessment & Plan Note - VIKKI Wilkes - 07/16/2024 9:14 AM EDT Associated Problem(s): Synovitis of finger Recommend patient to seek ED evaluation for increased redness, pain and swelling of postoperative site, has not followed up with surgeon, strong suspicion this is correlated with right shoulder pain documented [facility] Work Phone: [phone] Evaluation + Plan note* Assessment & Plan Note - VIKKI Wilkes - 07/16/2024 9:14 AM EDTAssociated Problem(s): Synovitis of finger Recommend patient to seek ED evaluation for increased redness, pain and swelling of postoperative site, has not followed up with surgeon, strong suspicion this is correlated with right shoulder pain [facility] Work Phone: [phone] History of Present illness Narrative* VIKKI Wilkes - 07/15/2024 4:15 PM EDT Subjective Patient ID: Reinaldo Warren is a 39 y.o. female. Chief Complaint: Pain of the Right Shoulder (Patient states she has had pain in her right shoulder for about 5-6 weeks.) Right Shoulder Reinaldo is a pleasant 39-year-old female add-on patient for today for Increased shoulder pain. 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 Oral ketorolac,Tylenol and Ibuprofen today, no sx relief States she has broken down into tears several times today due to the pain. Patient is approximately 5 weeks postop of open I&D of the right index finger, no surgical follow-up [id number] Review of Systems Constitutional: Negative. HENT: Negative. Respiratory: Negative. Cardiovascular: Negative. Endocrine: Negative. Musculoskeletal: Positive for arthralgias. Skin: Negative. Neurological: Negative. Hematological: Negative. Psychiatric/Behavioral: Negative. Objective Right Hand Exam Tenderness Right hand tenderness location: Postop site of right index finger. Other Erythema: present Sensation: normal Comments: Postop wound is well-healed to palmar aspect of right index finger, however skin surrounding and extending in the palm is swollen, reddened and warm to touch. There is no drainage noted. Patient with increased stiffness secondary to swelling Right Shoulder Exam Tenderness The patient is experiencing tenderness in the acromioclavicular joint and biceps tendon. Range of Motion Active abduction: 70 External rotation: 20 Forward flexion: 80 Other Erythema: absent Sensation: normal Pulse: present Comments: Skin is pink, warm, dry and intact Patient is tender to palpation, symptoms aggravated with any movements. Able to fully extend at elbow and distal joints. Distal motor and sensory intact, cap refill at 2 seconds. Left Shoulder Exam Left shoulder exam is normal. Assessment/Plan Encounter Diagnoses: Problem List Items Addressed This Visit ICD-10-CM Synovitis of finger M65.949 Recommend patient to seek ED evaluation for increased redness, pain and swelling of postoperative site, has not followed up with surgeon, strong suspicion this is correlated with right shoulder pain Other synovitis and tenosynovitis, right hand M65.841 Rotator cuff tendonitis, right - Primary M75.81 We discussed symptom control with completing previously prescribed ketorolac, OTC Tylenol and topical pain relievers. Patient was referred to ED for evaluation for concern of infection of postoperative site of hand, significant aggravation of shoulder symptoms today with positive discomfort to the axillary lymph nodes. Keep follow-up appointment as scheduled in 2 weeks Patient in agreement with plan of care. This note was generated using duuin software. It may contain errors in wording, punctuation or spelling. documented in this encounterC[facility] Work Phone: [phone]) [phone] History of Present illness Narrative* Rashawn Royal PA-C - 07/15/2024 9:40 AM EDT Subjective Patient ID: Reinaldo Warren is a 39 y.o. female who presents for Follow-up (BLOOD PRESSURE CHECK.F/U ER VISIT 07/06/24 RIGHT SHOULDER PAIN AND HIGH BLOOD PRESSURE. ER VISIT 07/09/24 FOR CHEST PAIN WHICH PATIENT CLAIMS HAS RESOLVED. CONTINUES TO HAVE RIGHT SHOULDER PAIN WITH LIMITED ROM. ) HPI Patient presents today as petros Cespedes patient for BP check Reading was high about 1 week ago She was in the ER 07/09/24 for chest pain which she states has since resoled. She does note R shoulder pain and limited ROM She has had CTA done 04/06/24 XR shoulder 07/06/24 CXR 07/09/24 Cardiac work up was done about 1 year ago She is unsure if the CP was secondary to high BP or more anxiety but states it did come down after she was relaxing. She plans to purchase a BP monitor to be able to check in the near future She does admit to hx of POTS and was seeing cardio in [place] She is working with a specialists to help manage her anxiety /mood meds Shoulder pain - she is following with ortho and states follow up is set for later today. She does have hx of asthma but states will controlled - rescue inhaler for prn Patient Active Problem List Diagnosis Generalized anxiety disorder with panic attacks Severe episode of recurrent major depressive disorder, without psychotic features (Multi) Mixed diabetic hyperlipidemia associated with type 2 diabetes mellitus (Multi) Fatty liver Mild intermittent asthma POTS (postural orthostatic tachycardia syndrome) Adjustment disorder with depressed mood Uterine leiomyoma Primary hypertension PTSD (post-traumatic stress disorder) Vitamin D deficiency Low serum vitamin B12 Low iron Synovitis and tenosynovitis, unspecified Major depressive disorder, single episode, unspecified Other synovitis and tenosynovitis, right hand Rotator cuff tendonitis, right Review of Systems Constitutional: Positive for fatigue. Negative for chills and fever. HENT: Negative for congestion, rhinorrhea, sinus pain, sore throat and tinnitus. Eyes: Negative for discharge, redness and visual disturbance. Respiratory: Negative for cough, chest tightness, shortness of breath and wheezing. Cardiovascular: Negative for chest pain, palpitations and leg swelling. Gastrointestinal: Negative for abdominal pain, constipation, diarrhea, nausea and vomiting. Endocrine: Negative for cold intolerance and heat intolerance. Genitourinary: Negative for flank pain, frequency and urgency. Musculoskeletal: Positive for arthralgias. Negative for back pain, gait problem and neck pain. Skin: Negative for rash and wound. Neurological: Negative for dizziness, tremors, syncope, numbness and headaches. Hematological: Does not bruise/bleed easily. Psychiatric/Behavioral: Negative for confusion, sleep disturbance and suicidal ideas. Past Medical History: Diagnosis Date Diabetes mellitus (Multi) Personal history of transient ischemic attack (TIA), and cerebral infarction without residual deficits History of cerebrovascular accident Past Surgical History: Procedure Laterality Date SECTION, LOW TRANSVERSE OTHER SURGICAL HISTORY 02/11/2020 Cholecystectomy Family History Problem Relation Name Age of Onset Hypertension Mother Diabetes type II Mother Diabetes type II Father Hypertension Father Social History Tobacco Use Smoking status: Former Current packs/day: 0.00 Types: Cigarettes Quit date: 2015 Years since quittin.7 Smokeless tobacco: Never Vaping Use Vaping status: Never Used Substance Use Topics Alcohol use: Never Drug use: Never Allergies Allergen Reactions Shellfish Derived Anaphylaxis Acetaminophen Swelling Amoxicillin Unknown Amoxicillin-Pot Clavulanate Other Bee Venom Protein (Honey Bee) Angioedema and Swelling Clavulanic Acid Unknown Codeine Rash Current Outpatient Medications Medication Sig Dispense Refill ketorolac (Toradol) 10 mg tablet Take 1 tablet (10 mg) by mouth 3 times a day for 5 days. 15 tablet0 lisinopril 40 mg tablet Take 1 tablet (40 mg) by mouth once daily. 30 tablet 0 mirtazapine (Remeron) 15 mg tablet Take 1 tablet (15 mg) by mouth once daily. 90 tablet 3 venlafaxine XR (Effexor-XR) 150 mg 24 hr capsule Take 1 capsule (150 mg) by mouth once daily. Do not crush or chew. In addition to 37.5 mg 90 capsule 3 venlafaxine XR (Effexor-XR) 37.5 mg 24 hr capsule Take 1 capsule (37.5 mg) by mouth once daily. Do not crush or chew. In addition to 150 mg 90 capsule 3 albuterol 90 mcg/actuation inhaler Inhale 2 puffs every 6 hours if needed for wheezing or shortnessof breath. (Patient not taking: Reported on 07/11/2024) 1 g 0 ARIPiprazole (Abilify) 15 mg tablet Take 1 tablet (15 mg) by mouth once daily. 30 tablet 0 atorvastatin (Lipitor) 20 mg tablet Take 1 tablet (20 mg) by mouth once daily. (Patient not taking:Reported on 07/15/2024) 90 tablet 3 Dexcom G7 Population Health Coach misc Inject 1 Device under the skin if needed (prn). Use as instructed (Patient not taking: Reported on 07/11/2024) 1 each 0 empagliflozin (Jardiance) 10 mg Take 1 tablet (10 mg) by mouth once daily. (Patient not taking: Reported on 07/15/2024) 90 tablet 3 fenofibrate (Tricor) 54 mg tablet Take 1 tablet (54 mg) by mouth once daily. (Patient not taking: Reported on 07/11/2024) 90 tablet 2 gabapentin (Neurontin) 100 mg capsule take 1 capsule by mouth 3 times a day as needed for anxiety for up to 30 days (Patient not taking: Reported on 07/11/2024) 90 capsule 0 gabapentin (Neurontin) 100 mg capsule Take 1 capsule (100 mg) by mouth every 8 hours if needed. prazosin (Minipress) 1 mg capsule Take 1 capsule (1 mg) by mouth once daily at bedtime. (Patient not taking: Reported on 07/11/2024) 30 capsule 11 traZODone (Desyrel) 100 mg tablet Take 1 tablet (100 mg) by mouth once daily at bedtime. 30 tablet 0 No current facility-administered medications for this visit. Objective BP 126/84 Pulse 92 Ht 1.651 m (5' 5) Wt 88 kg (194 lb) BMI 32.28 kg/m Physical Exam Vitals reviewed. Constitutional: Appearance: Normal appearance. She is obese. HENT: Head: Normocephalic. Right Ear: External ear normal. Left Ear: External ear normal. Nose: Nose normal. No congestion or rhinorrhea. Mouth/Throat: Mouth: Mucous membranes are moist. Eyes: Extraocular Movements: Extraocular movements intact. Conjunctiva/sclera: Conjunctivae normal. Pupils: Pupils are equal, round, and reactive to light. Cardiovascular: Rate and Rhythm: Normal rate and regular rhythm. Pulses: Normal pulses. Pulmonary: Effort: Pulmonary effort is normal. Breath sounds: Normal breath sounds. Abdominal: General: Bowel sounds are normal. Palpations: Abdomen is soft. Tenderness: There is no abdominal tenderness. There is no right CVA tenderness or left CVA tenderness. Musculoskeletal: General: Tenderness present. Normal range of motion. Cervical back: Normal range of motion and neck supple. No tenderness. Skin: General: Skin is warm and dry. Neurological: General: No focal deficit present. Mental Status: She is alert and oriented to person, place, and time. Psychiatric: Mood and Affect: Mood normal. Behavior: Behavior normal. Testing Reviewed ER reports Reviewed ortho reports Reviewed recent imaging on file Impression MDM 1) COMPLEXITY: MORE THAN 1 STABLE CHRONIC CONDITION ADDRESSED 2)DATA: TESTS INTERPRETED AND OR ORDERED, TOOK INDEPENDENT HISTORY OR RECORDS REVIEWED 3)RISK: MODERATE RISK DUE TO NATURE OF MEDICAL CONDITIONS/COMORBIDITY OR MEDICATIONS ORDERED OR SURGICAL OR PROCEDURE REFERRAL, . Reviewed labs and Testing on file Patient to follow diet low in cholesterol, fat, and sodium. Patient is advised to increase Exercise. Patient is recommended to lose weight. Reviewed Meds and discussed common side effects Continue as directed I am pleased the CP has resolved - consider cardio etiology vs anxiety I am pleased her BP is back to an approp reading Pt to get a monitor and check daily - call if concerns Shoulder pain - follow with ortho Cont with her other specialists Patient is strongly advised to be compliant with recommendations. Return to Clinic sooner if needed. Patient denies further questions/concerns at this time Assessment/Plan Problem List Items Addressed This Visit ICD-10-CM Generalized anxiety disorder with panic attacks F41.1, F41.0 Severe episode of recurrent major depressive disorder, without psychotic features (Multi) F33.2 Mild intermittent asthma J45.20 Primary hypertension - Primary I10 Rotator cuff tendonitis, right M75.81 FU in 1 mo with petros with BP check / pain check documented [facility] Work Phone: 1([phone]) 349-308110-08-2024 History of Present illness Narrative* VIKKI Fuentes - 07/15/2024 9:00 AM EDT Erroneous. Patient unable to get virtual working documented in this encounterC[facility] Work Phone: 1([phone]) [phone] History of Present illness Narrative* VIKKI Wilkes - 07/11/2024 3:00 PM EDT Subjective Patient ID: Reinaldo Warren is a 39 y.o. female. Chief Complaint: Pain of the Right Shoulder (Patient states she has had pain in her right shoulder for about 5-6 weeks.) Right Shoulder Review of Systems Constitutional: Negative. HENT: Negative. Respiratory: Negative. Cardiovascular: Negative. Endocrine: Negative. Musculoskeletal: Positive for arthralgias. Skin: Negative. Neurological: Negative. Hematological: Negative. Psychiatric/Behavioral: Negative. Objective Ortho Exam Image Results: Assessment/Plan Encounter Diagnoses: documented in this [facility] Work Phone: [phone]) 584-373409-29-2024 Emergency department Note* Freedom Cordon, VIKKI - 07/06/2024 7:46 PM EDT Chief Complaint Patient presents with Shoulder Pain For 5 weeks pt has had right shoulder pain, difficulty with ROM, pain is getting progressively worse. Had right finger/palm surgery x 6 weeks ago, has not followed up with surgeon yet. Has not seen anyone yet for shoulder pain. Last took tylenol this AM. Patient History Past Medical History: Diagnosis Date Diabetes mellitus (Multi) Personal history of transient ischemic attack (TIA), and cerebral infarction without residual deficits History of cerebrovascular accident Past Surgical History: Procedure Laterality Date SECTION, LOW TRANSVERSE OTHER SURGICAL HISTORY 02/11/2020 Cholecystectomy Family History Problem Relation Name Age of Onset No Known Problems Mother No Known Problems Father Social History Social History Narrative Not on file Allergies Allergen Reactions Shellfish Derived Anaphylaxis Acetaminophen Swelling Amoxicillin Unknown Amoxicillin-Pot Clavulanate Other Bee Venom Protein (Honey Bee) Angioedema and Swelling Clavulanic Acid Unknown Codeine Rash PMH: Reviewed PSH: Reviewed Social History: Reviewed. Allergies reviewed. HPI: Reinaldo Warren is a 39 y.o. female who presents to the ED today with complaints of right shoulder pain. States the pain started at least 5 weeks ago. Worse with movement. No injury. No numbness, tingling, paresthesias. Right handed. Prior right hand surgery, pain started about 3 weeks afterher surgery. PHYSICAL EXAM: GENERAL: Vitals noted, no distress. Alert and oriented x 3. Non-toxic. HEAD: Normocephalic, atraumatic. Pupils equally round and reactive to light. EOMI. NECK: Supple. No midline or paraspinal tenderness through full range of motion. CARDIAC: Regular rate, rhythm. No murmurs or rubs. RESPIRATORY: Lungs clear and equal bilaterally. No respiratory distress. MUSCULOSKELETAL & SKIN: Warm, dry, and intact. No rash/lesions. No peripheral edema. NEURO: No focal neurologic deficits, acting appropriately. Labs Reviewed - No data to display XR shoulder right 2+ views Final Result Normal radiographs of the right shoulder MACRO: None Signed by: Emmanuel Peraza 07/06/2024 8:59 PM Dictation workstation: [id number] Medical Decision Making ED COURSE: This patient was seen and examined by myself independently. X-ray the patient's right shoulder as noted above, no abnormalities noted per radiology. Offered IM injection of Toradol and sheis agreeable. Recommended NSAIDs for home. Follow-up with orthopedics if not better with the recommendations of NSAIDs and resting. She is discharged home in stable condition with computer instructions given. DIAGNOSTIC IMPRESSION: #1 right shoulder pain VIKKI Peña 07/06/242121 documented in this [facility] Work Phone: 1(701) 523-622209-29-2024 Physician Emergency department Note* VIKKI Peña - 07/06/2024 7:46 PM EDT Chief Complaint Patient presents with Shoulder Pain For 5 weeks pt has had right shoulder pain, difficulty with ROM, pain is getting progressively worse. Had right finger/palm surgery x 6 weeks ago, has not followed up with surgeon yet. Has not seen anyone yet for shoulder pain. Last took tylenol this AM. Patient History Past Medical History: Diagnosis Date Diabetes mellitus (Multi) Personal history of transient ischemic attack (TIA), and cerebral infarction without residual deficits History of cerebrovascular accident Past Surgical History: Procedure Laterality Date SECTION, LOW TRANSVERSE OTHER SURGICAL HISTORY 02/11/2020 Cholecystectomy Family History Problem Relation Name Age of Onset No Known Problems Mother No Known Problems Father Social History Social History Narrative Not on file Allergies Allergen Reactions Shellfish Derived Anaphylaxis Acetaminophen Swelling Amoxicillin Unknown Amoxicillin-Pot Clavulanate Other Bee Venom Protein (Honey Bee) Angioedema and Swelling Clavulanic Acid Unknown Codeine Rash PMH: Reviewed PSH: Reviewed Social History: Reviewed. Allergies reviewed. HPI: Reinaldo Warren is a 39 y.o. female who presents to the ED today with complaints of right shoulder pain. States the pain started at least 5 weeks ago. Worse with movement. No injury. No numbness, tingling, paresthesias. Right handed. Prior right hand surgery, pain started about 3 weeks afterher surgery. PHYSICAL EXAM: GENERAL: Vitals noted, no distress. Alert and oriented x 3. Non-toxic. HEAD: Normocephalic, atraumatic. Pupils equally round and reactive to light. EOMI. NECK: Supple. No midline or paraspinal tenderness through full range of motion. CARDIAC: Regular rate, rhythm. No murmurs or rubs. RESPIRATORY: Lungs clear and equal bilaterally. No respiratory distress. MUSCULOSKELETAL & SKIN: Warm, dry, and intact. No rash/lesions. No peripheral edema. NEURO: No focal neurologic deficits, acting appropriately. Labs Reviewed - No data to display XR shoulder right 2+ views Final Result Normal radiographs of the right shoulder MACRO: None Signed by: Emmanuel Peraza 07/06/2024 8:59 PM Dictation workstation: [id number] Medical Decision Making ED COURSE: This patient was seen and examined by myself independently. X-ray the patient's right shoulder as noted above, no abnormalities noted per radiology. Offered IM injection of Toradol and sheis agreeable. Recommended NSAIDs for home. Follow-up with orthopedics if not better with the recommendations of NSAIDs and resting. She is discharged home in stable condition with computer instructions given. DIAGNOSTIC IMPRESSION: #1 right shoulder pain VIKKI Peña 07/06/242121 [facility] Work Phone: 1(358) [phone] History of Present illness Narrative* VIKKI Mo - 06/12/2024 1:00 PM EDT Subjective Patient ID: Reinaldo Warren is a 39 y.o. female who presents for bipolar and PTSD. Virtual or Telephone Consent An interactive audio and video telecommunication system which permits real time communications between the patient (at the originating site) and provider (at the distant site) was utilized to providethis telehealth service. Verbal consent was requested and obtained from Reinaldo Warren on this date, 06/12/24 for a telehealth visit. HPI With the use of aripiprazole 15 mg she feels happier and when she feels frustrated she is able to express her feelings without irritable outbursts. As a result her is less nervous around her. But she feels the caodaism members feel nervous around her because of her history of irritable outburst. With the use of trazodone 100 mg she is sleeping eight hours but experiencing silly dreams. Her last flashback was in April which is great progress. Review of Systems Constitutional: Negative. HENT: Negative. Eyes: Negative. Respiratory: Negative. Objective Physical Exam Psychiatric: Attention and Perception: Attention normal. Mood and Affect: Mood normal. Speech: Speech normal. Behavior: Behavior is cooperative. Thought Content: Thought content normal. Cognition and Memory: Cognition normal. Judgment: Judgment normal. SI/HI ASSESSMENT Risk Assessment: Reinaldo Warren is currently a low acute risk of suicide and self-harm despite past suicide attempt(s) and not currently endorsing thoughts of suicide. Reinaldo Warren is currently a low acute risk of violence and harm to others due to no past history of violence and not currently threatening others. Suicidal Risk Factors: and feelings of hopelessness Violence Risk Factors: none Protective Factors: child related concerns/living with child <18 years, marriage/partnership, and employment Plan to Reduce Risk: Establish medication regimen, outpatient follow-up care, and increase coping skills Assessment/Plan Homer Warren is a 39 y/o CF with a hx of PTSD. She has decided to commit to IOP d/t an increaselevel of anxiety and a continuous poor mood. With the use of trazodone and mirtazapine she is now sleeping 7 hours. With the use of aripiprazole 15 mg she feels that her mood has improved and she is no longer having irritable outbursts. Making progress toward IOP treatment goals. Treatment plan reviewed with IOP team weekly. Continue engagement in IOP for pup to 4 days/week or 12 hours/week. Continue aripiprazole 15 mg to manage bipolar disorder. Continue Trazodone 100 mg to target insomnia. Continue Gabapentin 100 mg TID to target anxiety. Continue mirtazapine 15 mg to target insomnia. Continue venlafaxine 187.5 mg to target mood and PTSD. Provided with crisis/emergency resources, including the Crisis Hopeline , Crisis TextLine (text 1VLER to 447814) and the National Suicide Prevention Lifeline hotline . Agrees to call 911 or go to the nearest emergency department if s/he feels unsafe, or has suicidal thinking with a plan or intent. Acute risk of self-harm remains low despite current stressors (acute and chronic). No reported thoughts of self-harm plan, or intent. She is future- oriented, feels responsibility for her family, and has no hx of SA or hospitalizations. Next appointment: 2 weeks documented in this [facility] Work Phone: 1(575) 349-365008-22-2024 History of Present illness Narrative* VIKKI Mo - 05/29/2024 1:00 PM EDT Subjective Patient ID: Reinaldo Warren is a 39 y.o. female who presents for bipolar and PTSD. Virtual or Telephone Consent An interactive audio and video telecommunication system which permits real time communications between the patient (at the originating site) and provider (at the distant site) was utilized to providethis telehealth service. Verbal consent was requested and obtained from Reinaldo Warren on this date, 05/29/24 for a telehealth visit. HPI With the use of mirtazapine 15 mg trazodone 100 mg she is now receiving 7 hours of sleep and feels that now she is experiencing silly dreams. With the use of aripiprazole 15 mg her mood has improved by 20 % without side effects. She denies self-harm thoughts and SI/HI. Review of Systems Constitutional: Negative. HENT: Negative. Eyes: Negative. Respiratory: Negative. Objective Physical Exam Psychiatric: Attention and Perception: Attention normal. Mood and Affect: Mood normal. Speech: Speech normal. Behavior: Behavior is cooperative. Thought Content: Thought content normal. Cognition and Memory: Cognition normal. Judgment: Judgment normal. SI/HI ASSESSMENT Risk Assessment: Reinaldo Warren is currently a low acute risk of suicide and self-harm despite past suicide attempt(s) and not currently endorsing thoughts of suicide. Reinaldo Warren is currently a low acute risk of violence and harm to others due to no past history of violence and not currently threatening others. Suicidal Risk Factors: and feelings of hopelessness Violence Risk Factors: none Protective Factors: child related concerns/living with child <18 years, marriage/partnership, and employment Plan to Reduce Risk: Establish medication regimen, outpatient follow-up care, and increase coping skills Assessment/Plan Homer Warren is a 39 y/o CF with a hx of PTSD. She has decided to commit to IOP d/t an increaselevel of anxiety and a continuous poor mood. With the use of trazodone and mirtazapine she is now sleeping 7 hours. With the use of aripiprazole 15 mg she feels that her mood has improved by 20 %. Making progress toward IOP treatment goals. Treatment plan reviewed with IOP team weekly. Continue engagement in IOP for pup to 4 days/week or 12 hours/week. Continue aripiprazole 15 mg to manage bipolar disorder. Trazodone 100 mg to target insomnia. Gabapentin 100 mg TID to target anxiety. Continue mirtazapine 15 mg to target insomnia. Continue venlafaxine 187.5 mg to target mood and PTSD. Provided with crisis/emergency resources, including the Crisis Hopeline , Crisis TextLine (text 6TYOG oa 691158) and the National Suicide Prevention Lifeline hotline . Agrees to call 911 or go to the nearest emergency department if s/he feels unsafe, or has suicidal thinking with a plan or intent. Acute risk of self-harm remains low despite current stressors (acute and chronic). No reported thoughts of self-harm plan, or intent. She is future- oriented, feels responsibility for her family, and has no hx of SA or hospitalizations. Next appointment: 2 [facility] 1(204) 997-786208-15-2024 Telephone encounter Note* Telephone Encounter - Agnieszak Hughes - 05/22/2024 1:06 PM EDT Patient sent provider message that she is moving on to another provider on 05/21/2024 Thank you Agnieszka Hughes May 22, 2024 1:13 PM [facility]08-15-2024 Miscellaneous Notes* Telephone Encounter - Agnieszka Hughes - 05/22/2024 1:06 PM EDT Patient sent provider message that she is moving on to another provider on 05/21/2024 Thank you Agnieszka Hughes May 22, 2024 1:13 PM [facility] History of Present illness Narrative* VIKKI Mo - 05/22/2024 1:00 PM EDT Subjective Patient ID: Reinaldo Warren is a 39 y.o. female who presents for anxiety and PTSD. Virtual or Telephone Consent An interactive audio and video telecommunication system which permits real time communications between the patient (at the originating site) and provider (at the distant site) was utilized to providethis telehealth service. Verbal consent was requested and obtained from Reinaldo Warren on this date, 05/22/24 for a telehealth visit. HPI With the use of mirtazapine 15 mg trazodone 100 mg sleep has improved without nightmares and she isable return to sleep faster after experiencing a nightmare. She feels that IOP inventions are decreasing anxiety. She feels when she is easily upset that she is angry for at least 3 days. She also admits that she has periods where her self-esteem improves,sex drives increases,has racingthoughts, becomes more goal oriented, feels more impulsive with money and other decisions which last for five to seven days. She also admits to hearing a female voice only at night telling her that she is not good enough when she is very depressed or experiencing her manic states. Review of Systems Constitutional: Negative. HENT: Negative. Eyes: Negative. Respiratory: Negative. Objective Physical Exam Psychiatric: Attention and Perception: Attention normal. Mood and Affect: Mood is depressed. Speech: Speech normal. Behavior: Behavior is cooperative. Thought Content: Thought content normal. Cognition and Memory: Cognition normal. Judgment: Judgment normal. SI/HI ASSESSMENT Risk Assessment: Reinaldo Warren is currently a low acute risk of suicide and self-harm despite past suicide attempt(s) and not currently endorsing thoughts of suicide. Reinaldo Warren is currently a low acute risk of violence and harm to others due to no past history of violence and not currently threatening others. Suicidal Risk Factors: and feelings of hopelessness Violence Risk Factors: none Protective Factors: child related concerns/living with child <18 years, marriage/partnership, and employment Plan to Reduce Risk: Establish medication regimen, outpatient follow-up care, and increase coping skills Assessment/Plan Homer Warren is a 39 y/o CF with a hx of PTSD. She has decided to commit to IOP d/t an increaselevel of anxiety and a continuous poor mood. With the use of trazodone and mirtazapine sleep has improved greatly. Due to reviewing symptoms of bipolar and timeframe of collective symptoms she now meets the criteria of bipolar I disorder. As a result she is now willing to trial aripiprazole 15 mg to help target her mood. I agree with the plan for IOP, and that Reinaldo Warren has the capacity to tolerate and participate in IOP interventions Continue engagement in IOP for pup to 4 days/week or 12 hours/week. Initiate aripiprazole 15 mg to manage bipolar disorder. Trazodone 100 mg to target insomnia. Gabapentin 100 mg TID to target anxiety. Continue mirtazapine 15 mg to target insomnia. Continue venlafaxine 187.5 mg to target mood and PTSD. Provided with crisis/emergency resources, including the Crisis Hopeline , Crisis TextLine (text 7RRIH yt 625475) and the National Suicide Prevention Lifeline hotline . Agrees to call 911 or go to the nearest emergency department if s/he feels unsafe, or has suicidal thinking with a plan or intent. Acute risk of self-harm remains low despite current stressors (acute and chronic). No reported thoughts of self-harm plan, or intent. She is future- oriented, feels responsibility for her family, and has no hx of SA or hospitalizations. Next appointment: 2 weeks [facility] Phone: 1(697) 535-258408-02-2024 History of Present illness Narrative* Angie Arteaga APRN.CNP - 05/09/2024 10:58 AM EDT 39 year old female with PMH seizures, HTN, and DM presents for finger pain. Acute onset 3 weeks ago Denies trauma or injury Endorses that she is unable to move finger Has position held in a flexed state. +swelling Unable to perform ROM Concerns for possible flexor tenosynovitis [facility] Note* Addendum Note - Jeanette Miller APRN.CNP - 04/22/2024 11:57 AM EDTAddended by: JEANETTE MILLER on: 04/22/2024 11:57 AM Modules accepted: Orders [facility]07-16-2024 Telephone encounter Note* Telephone Encounter - Jeanette Miller APRN.CNP - 04/22/2024 11:57 AM EDT Placed referral order for IOP. IOP team will reach out to patient. [facility]07-16-2024 Miscellaneous Notes* Addendum Note - Jeanette Miller APRN.CNP - 04/22/2024 11:57 AM EDTAddended by: JEANETTE MILLER on: 04/22/2024 11:57 AM Modules accepted: Orders * Telephone Encounter - Jeanette Miller APRN.CNP - 04/22/2024 11:57 AM EDT Placed referral order for IOP. IOP team will reach out to patient. * Telephone Encounter - Matt Bradshaw LPN - 04/22/2024 11:32 AM EDT Patient called office back. Nurse informed that prescription was sent to patient pharmacy for anxiety. Nurse advised that provider strongly recommends IOP or individual therapy. Patient asked regarding IOP. Nurse will inform patient to look online and call [facility] for virtual IOP. Matt Bradshaw LPN * Telephone Encounter - Matt Bradshaw LPN - 04/22/2024 11:19 AM EDT Nurse left VM for patient to call office. Matt Bradshaw LPN * Telephone Encounter - Jeanette Miller APRN.CNP - 04/22/2024 10:20 AM EDT Sent prescription for gabapentin 100 mg three times daily as needed for anxiety to pharmacy for patient to try. This has been a recurring pattern for her and strongly recommend that she also seek therapy in addition to her current medications. A referral to IOP or individual therapy can be given if she is interested. * Telephone Encounter - Matt Bradshaw LPN - 04/22/2024 9:56 AM EDT Nurse called patient and patient reports she has been having very bad days at work pt is tearfuland crying. Her situation is caused by work per patient.It is in its first phase via HR at her job. Attempted to attend a group , but she cannot complete it. When she is majorly stressed, she has seizure like activity and almost passes out. Went to ER Sat night for chest pain and They gave her an Ativan and that really helped. Patient does not have appt w/you until June. * Telephone Encounter - Lorrie Harrison - 04/22/2024 9:30 AM EDT Jeanette, patient called in stating she need for you to give a call back To [phone] because she need to talk to you about her medication. Lorrie [facility] Telephone encounter Note * Telephone Encounter - Matt Bradshaw LPN - 04/22/2024 11:32 AM EDT Patient called office back. Nurse informed that prescription was sent to patient pharmacy for anxiety. Nurse advised that provider strongly recommends IOP or individual therapy. Patient asked regarding IOP. Nurse will inform patient to look online and call [facility] for virtual IOP. Matt Bradshaw LPN [facility]07-16-2024 Telephone encounter Note* Telephone Encounter - Matt Bradshaw LPN - 04/22/2024 11:19 AM EDT Nurse left VM for patient to call office. Matt Bradshaw LPN [facility]07-16-2024 Telephone encounter Note* Telephone Encounter - Jeanette Miller, RAYMON.PUBLIC SAFETY TELECOMMUNICATOR - 04/22/2024 10:20 AM EDT Sent prescription for gabapentin 100 mg three times daily as needed for anxiety to pharmacy for patient to try. This has been a recurring pattern for her and strongly recommend that she also seek therapy in addition to her current medications. A referral to IOP or individual therapy can be given if she is interested. [facility]-16-2024 Telephone encounter Note* Telephone Encounter - Matt Bradshaw LPN - 04/22/2024 9:56 AM EDT Nurse called patient and patient reports she has been having very bad days at work pt is tearfuland crying. Her situation is caused by work per patient.It is in its first phase via HR at her job. Attempted to attend a group , but she cannot complete it. When she is majorly stressed, she has seizure like activity and almost passes out. Went to ER Sat night for chest pain and They gave her an Ativan and that really helped. Patient does not have appt w/you until June. [facility]07-16-2024 Telephone encounter Note* Telephone Encounter - Lorrie Harrison - 04/22/2024 9:30 AM EDT Jeanette, patient called in stating she need for you to give a call back To [phone] because she need to talk to you about her medication. Lorrie [facility]07-13-2024 Hospital Discharge instructions* Discharge Instructions* Chidi Dunbar MD - 04/19/2024 4:10 PM EDT CONTINUE CURRENT MEDS PCP FOLLOW UP * Attachments The following attachments cannot be sent through Care Everywhere. * Anxiety, Adult ED ([place]) [facility] Work Phone: 1(719) 436-585207-13-2024 Emergency department Note* Chidi Dunbar MD - 04/19/2024 2:43 PM EDT Chief Complaint: ANXIETY ATTACK This is a 39-year-old female who presents. She apparently felt that she was being bullied at work today and feared for the loss of her job. She started crying and felt like she is having a panic attack and came to the emergency department for further evaluation. She has history of some anxiety depression and is on Effexor and had some telemedicine visits last week with adjustments of her medicines and felt was doing better. She states the medicine does not stop these acute events when she has asevere panic attack. She is crying at this time and is here for evaluation. She denies any suicidalhomicidal ideation. Review of Systems Constitutional: Negative for chills and fever. HENT: Negative. Eyes: Negative. Respiratory: Negative. Cardiovascular: Negative. Gastrointestinal: Negative. Genitourinary: Negative. Musculoskeletal: Negative. Neurological: Negative. Negative for dizziness, light-headedness and numbness. Psychiatric/Behavioral: Negative for behavioral problems and suicidal ideas. The patient is nervous/anxious. All other systems reviewed and are negative. Physical Exam Constitutional: General: She is not in acute distress. Appearance: Normal appearance. She is not ill-appearing. HENT: Head: Normocephalic. Nose: Nose normal. Mouth/Throat: Mouth: Mucous membranes are moist. Pharynx: Oropharynx is clear. Eyes: Extraocular Movements: Extraocular movements intact. Pupils: Pupils are equal, round, and reactive to light. Cardiovascular: Rate and Rhythm: Normal rate. Pulses: Normal pulses. Heart sounds: No murmur heard. Pulmonary: Effort: Pulmonary effort is normal. No respiratory distress. Breath sounds: Normal breath sounds. Abdominal: Tenderness: There is no abdominal tenderness. Musculoskeletal: General: Normal range of motion. Cervical back: Normal range of motion and neck supple. Right lower leg: No edema. Left lower leg: No edema. Skin: General: Skin is warm and dry. Capillary Refill: Capillary refill takes less than 2 seconds. Findings: No erythema or rash. Neurological: General: No focal deficit present. Mental Status: She is alert and oriented to person, place, and time. Psychiatric: Mood and Affect: Mood is anxious. Mood is not depressed. Speech: Speech normal. Behavior: Behavior normal. Thought Content: Thought content normal. Comments: Patient is teary-eyed at this time and very anxious Labs Reviewed - No data to display No orders to display Procedures Medical Decision Making Welsh diagnosis of panic attack situational anxiety and anxiety attack. Patient was given Ativan 1mg p.o. as well as a GI cocktail her EKG was normal. Patient was reexamined she is resting soundly her heart rate had returned to normal she had no episodes of crying and felt much improved she will be discharged she is to be off work tomorrow. Amount and/or Complexity of Data Reviewed ECG/medicine tests: independent interpretation performed. Details: Of lead EKG showed sinus tachycardia at 126/min there is some LVH but no acute ST segment elevation or depressions Diagnoses as of 04/19/24 1610 Situational anxiety Panic attack Chidi Dunbar MD 04/19/24 1610 documented in this [facility] Work Phone: 1(477) 472-639207-13-2024 Physician Emergency department Note* Chidi Dunbar MD - 04/19/2024 2:43 PM EDT Chief Complaint: ANXIETY ATTACK This is a 39-year-old female who presents. She apparently felt that she was being bullied at work today and feared for the loss of her job. She started crying and felt like she is having a panic attack and came to the emergency department for further evaluation. She has history of some anxiety depression and is on Effexor and had some telemedicine visits last week with adjustments of her medicines and felt was doing better. She states the medicine does not stop these acute events when she has asevere panic attack. She is crying at this time and is here for evaluation. She denies any suicidalhomicidal ideation. Review of Systems Constitutional: Negative for chills and fever. HENT: Negative. Eyes: Negative. Respiratory: Negative. Cardiovascular: Negative. Gastrointestinal: Negative. Genitourinary: Negative. Musculoskeletal: Negative. Neurological: Negative. Negative for dizziness, light-headedness and numbness. Psychiatric/Behavioral: Negative for behavioral problems and suicidal ideas. The patient is nervous/anxious. All other systems reviewed and are negative. Physical Exam Constitutional: General: She is not in acute distress. Appearance: Normal appearance. She is not ill-appearing. HENT: Head: Normocephalic. Nose: Nose normal. Mouth/Throat: Mouth: Mucous membranes are moist. Pharynx: Oropharynx is clear. Eyes: Extraocular Movements: Extraocular movements intact. Pupils: Pupils are equal, round, and reactive to light. Cardiovascular: Rate and Rhythm: Normal rate. Pulses: Normal pulses. Heart sounds: No murmur heard. Pulmonary: Effort: Pulmonary effort is normal. No respiratory distress. Breath sounds: Normal breath sounds. Abdominal: Tenderness: There is no abdominal tenderness. Musculoskeletal: General: Normal range of motion. Cervical back: Normal range of motion and neck supple. Right lower leg: No edema. Left lower leg: No edema. Skin: General: Skin is warm and dry. Capillary Refill: Capillary refill takes less than 2 seconds. Findings: No erythema or rash. Neurological: General: No focal deficit present. Mental Status: She is alert and oriented to person, place, and time. Psychiatric: Mood and Affect: Mood is anxious. Mood is not depressed. Speech: Speech normal. Behavior: Behavior normal. Thought Content: Thought content normal. Comments: Patient is teary-eyed at this time and very anxious Labs Reviewed - No data to display No orders to display Procedures Medical Decision Making Welsh diagnosis of panic attack situational anxiety and anxiety attack. Patient was given Ativan 1mg p.o. as well as a GI cocktail her EKG was normal. Patient was reexamined she is resting soundly her heart rate had returned to normal she had no episodes of crying and felt much improved she will be discharged she is to be off work tomorrow. Amount and/or Complexity of Data Reviewed ECG/medicine tests: independent interpretation performed. Details: Of lead EKG showed sinus tachycardia at 126/min there is some LVH but no acute ST segment elevation or depressions Diagnoses as of 04/19/241609 Situational anxiety Panic attack Chidi Dunbar MD 04/19/24 [address] [facility] Work Phone: 1(952) 157-954707-05-2024 NoteHNO ID: [id number] Author: JEANETTE MILLER APRN.PUBLIC SAFETY TELECOMMUNICATOR Service: ? Author Type: Nurse Practitioner Type: Progress Notes Filed: 04/11/2024 10:08 Note Text: FOLLOW-UP PSYCHIATRIC PROGRESS NOTE Visit Type:Virtual Visit utilizing two-way audio and video for at least a portion of the visit. Consent for virtual visit obtained verbally. Confidentiality limitations with virtual visits reviewed with the patient and guardian, if present, who have accepted the risk verbally prior to proceeding with encounter. I have communicated my name and active licensure. The patient's identity and physical location were verified at the time of this visit. Either the patient or their legal sales representative uniforms has been informed of the risks and benefits of -- and alternatives to -- treatment through a remote evaluation and consents to proceed with the evaluation remotely. Reason for Visit: Outpatient follow-up and safety monitoring of previously prescribed psychiatric medication, psychotherapy or other treatment CHIEF COMPLAINT: Follow up for medication management HPI: Feels that there have been ups and downs Says that her co-workers keep telling me that I have ADHD because she is anal about things and get upset when things aren't the way I like Feels that she has a hard time focusing Has been continuing to have issues with one particular co-worker Feels that outside of work she has been doing fair Feels that her sleep has been getting better Feels that things have been getting steadily better over time just some little hiccups but I think that is normal Feels that the increase in the Effexor went good and found it helpful Feels good with where the medications are at right now and is open to continuing at current doses Interval Progress since previous visit: slightly improved VITAL SIGNS: There were no vitals filed for this visit. ROS: PSYCH: See HPI All other systems negative. PATIENT DATA: MILENA-7 More data exists 11/29/2023 12/28/2023 01/30/2024 03/14/2024 04/11/2024 MILENA-7 All Questions Feeling nervous, anxious, or on edge Several days Several days Nearly Everyday - Several days Not being able to stop or control worrying Several days Not at all Nearly Everyday - Several days Worrying too much about different things Several days Several days Nearly Everyday - Several days Trouble relaxing - Several days Nearly Everyday Several days Several days Being so restless that it is hard to sit still - Several days Nearly Everyday - Several days Becoming easily annoyed or irritable Not at all Several days Several days Several days Several days Feeling afraid, as if something awful might happen Several days Several days Several days - Several days MILENA-7 Score - 6 17 - 7 PHQ-9 More data exists 11/29/2023 12/28/2023 01/30/2024 03/14/2024 04/11/2024 PHQ-9 Scores Little interest or pleasure in doing things Not at all Not at all Not at all Not at all Not at all Feeling down, depressed, or hopeless Not at all Several days Not at all Several days Not at all Trouble falling or staying asleep, or sleeping too much Several days Several days Several days Not at all Several days Feeling tired or having little energy Several days Several days Several days Several days Several days Poor appetite or overeating Several days Not at all Not at all Not at all Not at all Feeling bad about yourself - or that you are a failure or have let yourself or your family down Not at all Not at all Not at all Several days Not at all Trouble concentrating on things, such as reading the newspaper or watching television Not at all Not at all Not at all Not at all Not at all Moving or speaking so slowly that other people could have noticed. Or the opposite - being so fidgety or restless that you have been moving around a lot more than usual Not at all Not at all Not at all Not at all Not at all Thoughts that you would be better off , or of hurting yourself in some way Not at all Not at all Not at all Not at all Not at all PHQ-9 Score 3 3 2 3 2 MENTAL STATUS EXAM: CONSTITUTIONAL: Well groomed, Appropriately dressed, Casually dressed, Well developed, Well nourished ORIENTATION: Person, Place, Time and Situation MEMORY: No deficiencies noted CONCENTRATION: Normal MOOD: euthymic AFFECT: Full and appropriate to topic SPEECH : Clear AND distinct LANGUAGE : Normal ASSOCIATIONS: Intact THOUGHT PROCESS : Logical, Coherent, and Rational PROGRESSION : There was no evidence of disturbance in thought perception or progression. FUND OF KNOWLEDGE : Appropriate and Adequate SUICIDE: Denies suicidal thoughts, plan, or intent currently. HOMICIDE: Denies homicidal thoughts, plan, or intent currently. Labwork: CBC and Differential: WBC Date Value Ref Range Status 08/23/2022 6.72 3.70 - 11.00 k/uL Final RBC Date Value Ref Range Status 08/23/2022 4.47 3.90 - 5.20 m/uL Final Hematocrit Date Value (more content not included)...[facility]07-05-2024 History of Present illness Narrative* Jeanette Miller APRN.PUBLIC SAFETY TELECOMMUNICATOR - 04/11/2024 9:46 AM EDT Images from the original note were not included. FOLLOW-UP PSYCHIATRIC PROGRESS NOTE Visit Type:Virtual Visit utilizing two-way audio and video for at least a portion of the visit. Consent for virtual visit obtained verbally. Confidentiality limitations with virtual visits reviewed with the patient and guardian, if present, who have accepted the risk verbally prior to proceeding with encounter. I have communicated my name and active licensure. The patient's identity and physical location were verified at the time of this visit. Either the patient or their legal sales representative uniforms has been informed of the risks and benefits of -- and alternatives to -- treatment through a remote evaluation and consents to proceed with the evaluation remotely. Reason for Visit: Outpatient follow-up and safety monitoring of previously prescribed psychiatric medication, psychotherapy or other treatment CHIEF COMPLAINT: Follow up for medication management HPI: Feels that there have been ups and downs Says that her co-workers keep telling me that I have ADHD because she is anal about things and get upset when things aren't the way I like Feels that she has a hard time focusing Has been continuing to have issues with one particular co-worker Feels that outside of work she has been doing fair Feels that her sleep has been getting better Feels that things have been getting steadily better over time just some little hiccups but I thinkthat is normal Feels that the increase in the Effexor went good and found it helpful Feels good with where the medications are at right now and is open to continuing at current doses Interval Progress since previous visit: slightly improved VITAL SIGNS: There were no vitals filed for this visit. ROS: PSYCH: See HPI All other systems negative. PATIENT DATA: MILENA-7 More data exists 11/29/2023 12/28/2023 01/30/2024 03/14/2024 04/11/2024 MILENA-7 All Questions Feeling nervous, anxious, or on edge Several days Several days Nearly Everyday - Several days Not being able to stop or control worrying Several days Not at all Nearly Everyday - Several days Worrying too much about different things Several days Several days Nearly Everyday - Several days Trouble relaxing - Several days Nearly Everyday Several days Several days Being so restless that it is hard to sit still - Several days Nearly Everyday - Several days Becoming easily annoyed or irritable Not at all Several days Several days Several days Several days Feeling afraid, as if something awful might happen Several days Several days Several days - [place] MILENA-7 Score - 6 17 - 7 PHQ-9 More data exists 11/29/2023 12/28/2023 01/30/2024 03/14/2024 04/11/2024 PHQ-9 Scores Little interest or pleasure in doing things Not at all Not at all Not at all Not at all Not at all Feeling down, depressed, or hopeless Not at all Several days Not at all Several days Not at all Trouble falling or staying asleep, or sleeping too much Several days Several days Several days Not at all Several days Feeling tired or having little energy Several days Several days Several days Several days Several days Poor appetite or overeating Several days Not at all Not at all Not at all Not at all Feeling bad about yourself - or that you are a failure or have let yourself or your family down Notat all Not at all Not at all Several days Not at all Trouble concentrating on things, such as reading the newspaper or watching television Not at all Not at all Not at all Not at all Not at all Moving or speaking so slowly that other people could have noticed. Or the opposite - being so fidgety or restless that you have been moving around a lot more than usual Not at all Not at all Not at all Not at all Not at all Thoughts that you would be better off , or of hurting yourself in some way Not at all Not at all Not at all Not at all Not at all PHQ-9 Score 3 3 2 3 2 MENTAL STATUS EXAM: CONSTITUTIONAL: Well groomed, Appropriately dressed, Casually dressed, Well developed, Well nourished ORIENTATION: Person, Place, Time and Situation MEMORY: No deficiencies noted CONCENTRATION: Normal MOOD: euthymic AFFECT: Full and appropriate to topic SPEECH : Clear & distinct LANGUAGE : Normal ASSOCIATIONS: Intact THOUGHT PROCESS : Logical, Coherent, and Rational PROGRESSION : There was no evidence of disturbance in thought perception or progression. FUND OF KNOWLEDGE : Appropriate and Adequate SUICIDE: Denies suicidal thoughts, plan, or intent currently. HOMICIDE: Denies homicidal thoughts, plan, or intent currently. Labwork: CBC and Differential: WBC Date Value Ref Range Status 08/23/2022 6.72 3.70 - 11.00 k/uL Final RBC Date Value Ref Range Status 08/23/2022 4.47 3.90 - 5.20 m/uL Final Hematocrit Date Value Ref Range Status 08/23/2022 38.3 36.0 - 46.0 % Final MCV Date Value Ref Range Status 08/23/2022 85.7 80.0 - 100.0 fL Final MCH Date Value Ref Range Status 08/23/2022 29.8 26.0 - 34.0 pg Final MCHC Date Value Ref Range Status 08/23/2022 34.7 30.5 - 36.0 g/dL Final Platelet Count Date Value Ref Range Status 08/23/2022 221 150 - 400 k/uL Final MPV Date Value Ref Range Status 08/23/2022 9.9 9.0 - 12.7 fL Final Comprehensive Metabolic Panel: BUN Date Value Ref Range Status 08/23/2022 14 7 - 21 mg/dL Final Creatinine Date Value Ref Range Status 08/23/2022 0.68 0.58 - 0.96 mg/dL Final Sodium Date Value Ref Range Status 08/23/2022 134 (L) 136 - 144 mmol/L Final Potassium Date Value Ref Range Status 08/23/2022 4.0 3.7 - 5.1 mmol/L Final CO2 Date Value Ref Range Status 08/23/2022 26 22 - 30 mmol/L Final Albumin Date Value Ref Range Status 08/07/2021 3.5 (L) 3.9 - 4.9 g/dL Final Comment: Rechecked ALT Date Value Ref Range Status 08/07/2021 18 7 - 38 U/L Final AST Date Value Ref Range Status 08/07/2021 21 13 - 35 U/L Final Gamma-Glutamyltransferase (GGT), Serum: No results found for: GGT Vitamin B12: No components found for: [id number] Vitamin D, Total: No results found for: VITD Thyroid Stimulating Hormone (TSH): TSH Date Value Ref Range Status 08/20/2022 3.040 0.270 - 4.200 mIU/L Final Comment: If the patient is , TSH reference range varies by gestational period: First Trimester (weeks 9-12): 0.180-2.990 mIU/L Second Trimester: 0.110-3.980 mIU/L Third Trimester: 0.480-4.710 mIU/L Irving Simpson et al. A Practical Approach for the Verifications and Determination of Site- and Trimester-Specific Reference Intervals for Thyroid Function tests in . Thyroid, 2019:29:3:412-420.Rodríguez Way, et al. 2017 Guidelines of the [place] Thy[employer] Association for the Diagnosis and Management of Thyroid Disease during and the . Thyroid, 2017:27:3:315-389. Hemoglobin A1C: No results found for: HGBA1C Lipid Panel: Cholesterol, Total Date Value Ref Range Status 02/16/2023 278 (H) <200 mg/dL Final Comment: <200 mg/dL, Desirable 200-239 mg/dL, Borderline high >239 mg/dL, High HDL Cholesterol Date Value Ref Range Status 02/16/2023 35 (L) >39 mg/dL Final Comment: 40-59 mg/dL, Acceptable >59 mg/dL, High: Negative risk factor for coronary heart disease <40 mg/dL, Low: Positive risk factor for coronary heart disease LDL Cholesterol Date Value Ref Range Status 08/13/2021 128 (H) <100 mg/dL Final Comment: <100 mg/dL, Optimal 100-129 mg/dL, Near optimal/above optimal 130-159 mg/dL, Borderline high 160-189 mg/dL, High >189 mg/dL, Very high Secondary prevention optimal LDL Cholesterol levels are recommended to be < 70 mg/dL DATA REVIEWED: Electronic medical record DIAGNOSIS: PRIMARY: Anxiety Disorder Posttraumatic Stress Disorder - Chronic R/O: ADHD TREATMENT PLAN: Reviewed symptoms, medications and their side effects, labs, and progress being made. Discussed life situations and coping skills Support and encouragement provided PLAN AND FOLLOW UP: Medications: Continue: --Effexor XR 187.5 mg once daily --Remeron 15 mg once daily at bedtime for sleep and anxiety Other: --encouraged to start therapy - declines at this time --discussed symptoms of ADHD versus anxiety and trauma --given referrals for ADHD testing at her request Next appointment: --Schedule in 2 months or sooner if needed --To call the office call [phone] option 3 (for any questions or concerns) or you may [facility] at [phone] --Message in [facility] any questions or concerns. For those experiencing a suicidal crisis: --call the National Suicide Prevention Lifeline at 988 (404.470.6651) --text the Crisis Text Line (text HOME to 228215) --call 911 and let them know you are having a mental health crisis or go to your nearest Emergency Room for stabilization. --You can also call [employer] at [phone]. Discussed side effects including any black box warnings, risks and benefits of medications, and alternatives. ASSESSMENT/PLAN: 1. Current severe 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 (HCC) - ICD9: 296.23, ICD10: F32.2 --Per plan above - MIRTAZAPINE 15 MG TABLET - VENLAFAXINE ER 37.5 MG CAPSULE,EXTENDED RELEASE 24 HR - VENLAFAXINE ER 150 MG CAPSULE,EXTENDED RELEASE 24 HR 2. Generalized anxiety disorder - ICD9: 300.02, ICD10: F41.1 --Per plan above - MIRTAZAPINE 15 MG TABLET - VENLAFAXINE ER 37.5 MG CAPSULE,EXTENDED RELEASE 24 HR - VENLAFAXINE ER 150 MG CAPSULE,EXTENDED RELEASE 24 HR Jeanette Miller APRN.CNP MEDICATION CHANGES: See above for changes Follow Up: 2 months Medical Decision Making: Problems: Moderate: 2+ stable chronic illnesses Risk: Moderate: Drug management Medical Decision Making Level: 4 - Moderate ADD ON PSYCHOTHERAPY CODE : No Some elements copied from my note on 01/30/24, which have been updated where appropriate, and all reflect my current medical decision making from today. SIGNATURE: Jeanette Miller APRN.CNP PATIENT NAME: Reinaldo Warren DATE: 04/11/2024 TIME: 9:47 AM [facility] History of Present illness Narrative* Petros Cespedes, PROSTHETICS LAB TECHNICIAN-PUBLIC SAFETY TELECOMMUNICATOR - 04/09/2024 9:00 AM EDT Subjective Patient ID: Reinaldo Warren is a 39 y.o. female who presents for Follow-up (Med refill ). VIRTUAL APPOINTMENT BEING PERFORMED HPI: Presents today for [facility] ER FU ON 04/06/24 FOR CP. ALL TESTING UNREMARKABLE. STATES SYMPTOMS HAVE RESOLVED. SA LABS. NO NEW COMPLAINTS B12- START DAILY PO SUPPLEMENT DM- STABLE LIPIDS- TRIGLYCERIDES ELEVATED. DIET MODIFICATIONS DISCUSSED. START FENOFIBRATE AND RECHECK IN 6 MONTHS VIT D- START CALCIUM WITH VIT D IRON- SLIGHTLY LOW. WILL MONITOR Visit Vitals LMP 03/09/2024 (Approximate) OB Status Having periods Smoking Status Former Review of Systems Constitutional: Negative for chills, fatigue, fever and unexpected weight change. HENT: Negative for congestion, ear pain, sore throat and trouble swallowing. Eyes: Negative for photophobia, pain, redness and visual disturbance. Respiratory: Negative for apnea, cough, choking, chest tightness, shortness of breath and wheezing. Cardiovascular: Negative for chest pain, palpitations and leg swelling. Gastrointestinal: Negative for abdominal distention, abdominal pain, blood in stool, constipation, diarrhea, nausea and vomiting. Genitourinary: Negative for difficulty urinating, dysuria, flank pain, frequency, hematuria and urgency. Musculoskeletal: Negative for arthralgias, back pain, gait problem, joint swelling, myalgias and neck pain. Skin: Negative for rash and wound. Neurological: Negative for dizziness, seizures, syncope, facial asymmetry, speech difficulty, weakness, numbness and headaches. Psychiatric/Behavioral: Negative for confusion, sleep disturbance and suicidal ideas. The patient is not nervous/anxious. Objective Component Latest Ref Rng 04/08/2024 LEUKOCYTES (10*3/UL) IN BLOOD BY AUTOMATED COUNT, [place] 4.4 - 11.3 x10*3/uL 9.5 nRBC 0.0 - 0.0 /100 WBCs 0.0 ERYTHROCYTES (10*6/UL) IN BLOOD BY AUTOMATED COUNT, [place] 4.00 - 5.20 x10*6/uL 4.60 HEMOGLOBIN 12.0 - 16.0 g/dL 14.0 HEMATOCRIT 36.0 - 46.0 % 42.3 MCV 80 - 100 fL 92 MCH 26.0 - 34.0 pg 30.4 MCHC 32.0 - 36.0 g/dL 33.1 RED CELL DISTRIBUTION WIDTH 11.5 - 14.5 % 15.6 (H) PLATELETS (10*3/UL) IN BLOOD AUTOMATED COUNT, [place] 150 - 450 x10*3/uL 236 NEUTROPHILS/100 LEUKOCYTES IN BLOOD BY AUTOMATED COUNT, [place] 40.0 - 80.0 % 58.6 Immature Granulocytes %, Automated 0.0 - 0.9 % 0.7 Lymphocytes % 13.0 - 44.0 % 35.1 Monocytes % 2.0 - 10.0 % 4.8 Eosinophils % 0.0 - 6.0 % 0.2 Basophils % 0.0 - 2.0 % 0.6 NEUTROPHILS (10*3/UL) IN BLOOD BY AUTOMATED COUNT, [place] 1.20 - 7.70 x10*3/uL 5.57 Immature Granulocytes Absolute, Automated 0.00 - 0.70 x10*3/uL 0.07 Lymphocytes Absolute 1.20 - 4.80 x10*3/uL 3.34 Monocytes Absolute 0.10 - 1.00 x10*3/uL 0.46 Eosinophils Absolute 0.00 - 0.70 x10*3/uL 0.02 Basophils Absolute 0.00 - 0.10 x10*3/uL 0.06 GLUCOSE 74 - 99 mg/dL 265 (H) SODIUM 136 - 145 mmol/L 135 (L) POTASSIUM 3.5 - 5.3 mmol/L 3.8 CHLORIDE 98 - 107 mmol/L 101 Bicarbonate 21 - 32 mmol/L 26 Anion Gap 10 - 20 mmol/L 12 Blood Urea Nitrogen 6 - 23 mg/dL 19 Creatinine 0.50 - 1.05 mg/dL 0.76 EGFR >60 mL/min/1.73m*2 >90 Calcium 8.6 - 10.3 mg/dL 9.0 Albumin 3.4 - 5.0 g/dL 4.5 Alkaline Phosphatase 33 - 110 U/L 92 Total Protein 6.4 - 8.2 g/dL 6.8 AST 9 - 39 U/L 16 Bilirubin Total 0.0 - 1.2 mg/dL 0.8 ALT 7 - 45 U/L 26 CHOLESTEROL 0 - 199 mg/dL 190 HDL CHOLESTEROL mg/dL 41.0 Cholesterol/HDL Ratio 4.6 LDL Calculated <=99 mg/dL 73 VLDL 0 - 40 mg/dL 76 (H) TRIGLYCERIDES 0 - 149 mg/dL 382 (H) Non HDL Cholesterol 0 - 149 mg/dL 149 IRON 35 - 150 ug/dL 68 UIBC 110 - 370 ug/dL 364 TIBC 240 - 445 ug/dL 432 % Saturation 25 - 45 % 16 (L) Hemoglobin A1C see below % 6.3 (H) Estimated Average Glucose Not Established mg/dL 134 Thyroid Stimulating Hormone 0.44 - 3.98 mIU/L 2.86 Vitamin B12 211 - 911 pg/mL 258 Vitamin D, 25-Hydroxy, Total 30 - 100 ng/mL 24 (L) Legend: (H) High (L) Low Physical Exam Neurological: Mental Status: She is alert. Psychiatric: Mood and Affect: Mood normal. Behavior: Behavior normal. Thought Content: Thought content normal. Judgment: Judgment normal. 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 (Multi) Relevant Medications DexMobile2Me G7 Sensor device fenofibrate (Tricor) 54 mg tablet Other Relevant Orders CBC and Auto Differential Comprehensive Metabolic Panel Hemoglobin A1C Lipid Panel TSH with reflex to Free T4 if abnormal Primary hypertension Relevant Medications lisinopril 40 mg tablet Vitamin D deficiency Relevant Medications calcium carbonate-vitamin D3 (Hi-Link Plus Vit D) 500 mg-5 mcg (200 unit) tablet Other Relevant Orders Vitamin D 25-Hydroxy,Total (for eval of Vitamin D levels) Parathyroid Hormone, Intact Low serum vitamin B12 Relevant Medications cyanocobalamin (Vitamin B-12) 1,000 mcg tablet Other Relevant Orders Vitamin B12 Low iron Relevant Orders Ferritin Iron and TIBC WE DISCUSSED MOST COMMON SIDE EFFECTS OF PRESCRIBED MEDICATIONS. INDICATIONS, RISK, COMPLICATIONS, AND ALTERNATIVES OF MEDICATION/THERAPEUTICS WERE EXPLAINED AND DISCUSSED. PLEASE MONITOR CLOSELY FORANY UNTOWARD SIDE EFFECTS OR COMPLICATIONS OF MEDICATIONS. PATIENT IS STRONGLY ADVISED TO BE COMPLIANT WITH RECOMMENDATIONS. QUESTIONS AND CONCERNS WERE ADDRESSED. INSTRUCTED TO CALL, RETURN SOONER, OR GO TO THE ER, IF SYMPTOMS PERSIST OR WORSEN. THEY VOICED UNDERSTANDING AND DENIES FURTHER QUESTIONS AT THIS TIME. TIME CODE 1. PREPARATION FOR PATIENT'S VISIT (REVIEWING CHART, CURRENT MEDICAL RECORDS, OUTSIDE HEALTH PROVIDER RECORDS, PREVIOUS HISTORY, EXAM, TEST, PROCEDURE, AND MEDICATIONS) 2. FACE TO FACE ENCOUNTER OBTAINING HISTORY FROM THE PATIENT/FAMILY/CAREGIVERS; PERFORMING EVALUATION AND EXAMINATION; ORDERING TESTS OR PROCEDURES; REFERRING AND COMMUNICATING WITH OTHER HEALTHCARE PROVIDERS; COUNSELING AND EDUCATION OF THE PATIENT/FAMILY/CAREGIVERS; INDEPENDENTLY INTERPRETING RESULTS (TESTS, LABS, PROCEDURES, IMAGING) AND COMMUNICATING AND EXPLAINING RESULTS TO THE PATIENT/FAMILY/CAREGIVERS 3. COORDINATION OF CARE; PREPARING AND PRINTING DISCHARGE INSTRUCTIONS AND ANY EDUCATIONAL MATERIALFOR THE PATIENT/FAMILY/CAREGIVERS. DOCUMENTING CLINICAL INFORMATION IN THE ELECTRONIC MEDICAL RECORD 4. REVIEWING OARRS NEEDED MDM 1) COMPLEXITY: MORE THAN 1 STABLE CHRONIC CONDITION ADDRESSED OR 1 ACUTE ILLNESS ADDRESSED 2)DATA: TESTS INTERPRETED AND OR ORDERED, TOOK INDEPENDENT HISTORY OR RECORDS REVIEWED 3)RISK: MODERATE RISK DUE TO NATURE OF MEDICAL CONDITIONS/COMORBIDITY OR MEDICATIONS ORDERED OR SURGICAL OR PROCEDURE REFERRAL 6 months with labs documented in this [facility] Work Phone: [phone]) 479-556806-30-2024 Emergency department Note* Wolf Marin DO - 04/06/2024 2:01 PM EDTAssociated Order(s): ECG 12 lead; ECG 12 lead HPI No chief complaint on file. Limitations to History: None HPI: 39-year-old female presents with concern for sharp chest pain. Present for the past 4 hours. Constant. Nonradiating. Worse with movement. Admits to diaphoresis. Denies any nausea, vomiting, fever, chills. Admits to shortness of breath. Denies any abdominal pain or urinary symptoms. Denies any fall or trauma. Physical Exam: VS: As documented in the triage note and EMR flowsheet from this visit were reviewed. Appearance: Alert. cooperative, in no acute distress. Skin: Intact, dry skin, no lesions, rash, petechiae or purpura. Eyes: PERRLA, EOMs intact, Conjunctiva pink with no redness or exudates. HENT: Normocephalic, atraumatic. Nares patent. No intraoral lesions. Neck: Supple, without meningismus. Trachea at midline. No lymphadenopathy. Pulmonary: Clear bilaterally with good chest wall excursion. No rales, rhonchi or wheezing. No accessory muscle use or stridor. Cardiac: Tachycardic and regular rhythm, no rubs, murmurs, or gallops. Abdomen: Abdomen is soft, nontender, and nondistended. No palpable organomegaly. No rebound or guarding. No CVA tenderness. Nonsurgical abdomen. Genitourinary: Exam deferred. Musculoskeletal: Full range of motion. Pulses full and equal. No cyanosis, clubbing, or edema. Neurological: Cranial nerves are grossly intact, grossly normal sensation, no weakness, no focal findings identified. Psychiatric: Appropriate mood and affect. No data recorded Patient History Past Medical History: Diagnosis Date Diabetes mellitus (Multi) Personal history of transient ischemic attack (TIA), and cerebral infarction without residual deficits History of cerebrovascular accident Past Surgical History: Procedure Laterality Date SECTION, LOW TRANSVERSE OTHER SURGICAL HISTORY 02/11/2020 Cholecystectomy Family History Problem Relation Name Age of Onset No Known Problems Mother No Known Problems Father Social History Tobacco Use Smoking status: Former Types: Cigarettes Smokeless tobacco: Never Substance Use Topics Alcohol use: Never Drug use: Never Physical Exam ED Triage Vitals Temp Pulse Resp BP -- -- -- -- SpO2 Temp src Heart Rate Source Patient Position -- -- -- -- BP Location FiO2 (%) -- -- Physical Exam ED Course & MDM Diagnoses as of 04/06/24 1817 Chest pain, unspecified type Dyspnea, unspecified type Medical Decision Making Labs Reviewed CBC WITH AUTO DIFFERENTIAL - Abnormal WBC 9.4 nRBC 0.0 RBC 4.69 Hemoglobin 14.4 Hematocrit 41.4 MCV 88 MCH 30.7 MCHC 34.8 RDW 15.1 (*) Platelets 228 Neutrophils % 69.5 Immature Granulocytes %, Automated 0.9 Lymphocytes % 22.5 Monocytes % 6.2 Eosinophils % 0.4 Basophils % 0.5 Neutrophils Absolute 6.52 Immature Granulocytes Absolute, Au* 0.08 Lymphocytes Absolute 2.11 Monocytes Absolute 0.58 Eosinophils Absolute 0.04 Basophils Absolute 0.05 COMPREHENSIVE METABOLIC PANEL - Abnormal Glucose 271 (*) Sodium 134 (*) Potassium 3.6 Chloride 102 Bicarbonate 20 (*) Anion Gap 16 Urea Nitrogen 17 Creatinine 0.78 eGFR >90 Calcium 9.6 Albumin 4.5 Alkaline Phosphatase 103 Total Protein 7.2 AST 25 Bilirubin, Total 1.2 ALT 35 D-DIMER, VTE EXCLUSION - Abnormal D-Dimer, Quantitative VTE Exclusion 653 (*) Narrative: The VTE Exclusion D-Dimer assay is reported in ng/mL Fibrinogen Equivalent Units (FEU). Per seafood specialist's instructions for use, a value of less than 500 ng/mL (FEU) may help to exclude DVT or PE in outpatients when the assay is used with a clinical pretest probability assessment.(AE must utilize and document eCalc 'Wells Score Deep Vein Thrombosis Risk' for DVT exclusion only. Emergency Department should utilize Guidelines for Emergency Department Use of the VTE Exclusion D-Dimer and Clinical Pretest probability assessment model for DVT or PE exclusion.) POCT GLUCOSE - Abnormal POCT Glucose 288 (*) MAGNESIUM - Normal Magnesium 1.96 SERIAL TROPONIN-INITIAL - Normal Troponin I, High Sensitivity <3 Narrative: Less than 99th percentile of normal range cutoff- Female and children under 18 years old <14 ng/L; Male <21 ng/L: Negative Repeat testing should be performed if clinically indicated. Female and children under 18 years old 14-50 ng/L; Male 21-50 ng/L: Consistent with possible cardiac damage and possible increased clinical risk. Serial measurements may help to assess extent of myocardial damage. >50 ng/L: Consistent with cardiac damage, increased clinical risk and myocardial infarction. Serial measurements may help assess extent of myocardial damage. NOTE: Children less than 1 year old may have higher baseline troponin levels and results should be interpreted in conjunction with the overall clinical context. NOTE: Troponin I testing is performed using a different testing methodology at [facility] than at [facility]. Direct result comparisons should only be made within the same method. SERIAL TROPONIN, 1 HOUR - Normal Troponin I, High Sensitivity <3 Narrative: Less than 99th percentile of normal range cutoff- Female and children under 18 years old <14 ng/L; Male <21 ng/L: Negative Repeat testing should be performed if clinically indicated. Female and children under 18 years old 14-50 ng/L; Male 21-50 ng/L: Consistent with possible cardiac damage and possible increased clinical risk. Serial measurements may help to assess extent of myocardial damage. >50 ng/L: Consistent with cardiac damage, increased clinical risk and myocardial infarction. Serial measurements may help assess extent of myocardial damage. NOTE: Children less than 1 year old may have higher baseline troponin levels and results should be interpreted in conjunction with the overall clinical context. NOTE: Troponin I testing is performed using a different testing methodology at [facility] than at [facility]. Direct result comparisons should only be made within the same method. TROPONIN SERIES- (INITIAL, 1 HR) CT angio chest for pulmonary embolism Final Result 1. No acute intrathoracic abnormality. 2. Hepatosplenomegaly with probable hepatic steatosis. 3. Stable region of presumed linear scarring of the lingula. Signed by: Markos Reynolds 04/06/2024 4:56 PM Dictation workstation: [id number] XR chest 1 view Final Result 1. No evidence of acute cardiopulmonary process. MACRO: None. Signed by: Nnamdi Mcmanus 04/06/2024 2:25 PM Dictation workstation: [id number] Medical Decision Making: Patient appears well and nontoxic. Tachycardic and tachypneic upon arrival as well as hypertensive.Lab work shows hyperglycemia without evidence of DKA. Patient treated with 1 L of normal saline. High-sensitivity troponin negative x 2. CTA without pulmonary embolism, pneumothorax, pneumonia. Patient treated with DuoNeb and feeling much improved. Will be given albuterol inhaler for home and advised on continued oral hydration. Heart rate improved to approximately 100. Stable at time of discharge. Differential Diagnoses Considered: Musculoskeletal chest pain, ACS, pneumonia, pneumothorax, pulmonary embolism, bronchitis Independent Interpretation of Studies: I independently interpreted: Chest x-ray shows no evidence of pneumonia or pneumothorax. CTA chest shows no central pulmonary embolism. Escalation of Care: Appropriate for discharge and follow-up with primary care. Prescription Drug Consideration: Albuterol inhaler. 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 Wolf Marin: Sinus tachycardia at a rate of 121 bpm. AK interval 130 ms. QTc of [address] changes. ECG 12 lead Performed by: Wolf Marin DO Authorized by: Wolf Marin DO ECG interpreted by ED Physician in the absence of a building construction estimator: yes Comments: Repeat EKG performed at [address] Wolf Marin at 1510: Sinus tachycardia azam rate of 118 bpm. AK interval 142 ms. QTc of [address] changes. No evolving changes. Wolf Marin DO 04/06/241817 documented in this [facility] Work Phone: 1(845) 961-821006-30-2024 Physician Emergency department Note* Wolf Marin DO - 04/06/2024 2:01 PM EDTAssociated Order(s): ECG 12 lead; ECG 12 lead HPI No chief complaint on file. Limitations to History: None HPI: 39-year-old female presents with concern for sharp chest pain. Present for the past 4 hours. Constant. Nonradiating. Worse with movement. Admits to diaphoresis. Denies any nausea, vomiting, fever, chills. Admits to shortness of breath. Denies any abdominal pain or urinary symptoms. Denies any fall or trauma. Physical Exam: VS: As documented in the triage note and EMR flowsheet from this visit were reviewed. Appearance: Alert. cooperative, in no acute distress. Skin: Intact, dry skin, no lesions, rash, petechiae or purpura. Eyes: PERRLA, EOMs intact, Conjunctiva pink with no redness or exudates. HENT: Normocephalic, atraumatic. Nares patent. No intraoral lesions. Neck: Supple, without meningismus. Trachea at midline. No lymphadenopathy. Pulmonary: Clear bilaterally with good chest wall excursion. No rales, rhonchi or wheezing. No accessory muscle use or stridor. Cardiac: Tachycardic and regular rhythm, no rubs, murmurs, or gallops. Abdomen: Abdomen is soft, nontender, and nondistended. No palpable organomegaly. No rebound or guarding. No CVA tenderness. Nonsurgical abdomen. Genitourinary: Exam deferred. Musculoskeletal: Full range of motion. Pulses full and equal. No cyanosis, clubbing, or edema. Neurological: Cranial nerves are grossly intact, grossly normal sensation, no weakness, no focal findings identified. Psychiatric: Appropriate mood and affect. No data recorded Patient History Past Medical History: Diagnosis Date Diabetes mellitus (Multi) Personal history of transient ischemic attack (TIA), and cerebral infarction without residual deficits History of cerebrovascular accident Past Surgical History: Procedure Laterality Date SECTION, LOW TRANSVERSE OTHER SURGICAL HISTORY 02/11/2020 Cholecystectomy Family History Problem Relation Name Age of Onset No Known Problems Mother No Known Problems Father Social History Tobacco Use Smoking status: Former Types: Cigarettes Smokeless tobacco: Never Substance Use Topics Alcohol use: Never Drug use: Never Physical Exam ED Triage Vitals Temp Pulse Resp BP -- -- -- -- SpO2 Temp src Heart Rate Source Patient Position -- -- -- -- BP Location FiO2 (%) -- -- Physical Exam ED Course & MDM Diagnoses as of 04/06/24 1817 Chest pain, unspecified type Dyspnea, unspecified type Medical Decision Making Labs Reviewed CBC WITH AUTO DIFFERENTIAL - Abnormal WBC 9.4 nRBC 0.0 RBC 4.69 Hemoglobin 14.4 Hematocrit 41.4 MCV 88 MCH 30.7 MCHC 34.8 RDW 15.1 (*) Platelets 228 Neutrophils % 69.5 Immature Granulocytes %, Automated 0.9 Lymphocytes % 22.5 Monocytes % 6.2 Eosinophils % 0.4 Basophils % 0.5 Neutrophils Absolute 6.52 Immature Granulocytes Absolute, Au* 0.08 Lymphocytes Absolute 2.11 Monocytes Absolute 0.58 Eosinophils Absolute 0.04 Basophils Absolute 0.05 COMPREHENSIVE METABOLIC PANEL - Abnormal Glucose 271 (*) Sodium 134 (*) Potassium 3.6 Chloride 102 Bicarbonate 20 (*) Anion Gap 16 Urea Nitrogen 17 Creatinine 0.78 eGFR >90 Calcium 9.6 Albumin 4.5 Alkaline Phosphatase 103 Total Protein 7.2 AST 25 Bilirubin, Total 1.2 ALT 35 D-DIMER, VTE EXCLUSION - Abnormal D-Dimer, Quantitative VTE Exclusion 653 (*) Narrative: The VTE Exclusion D-Dimer assay is reported in ng/mL Fibrinogen Equivalent Units (FEU). Per seafood specialist's instructions for use, a value of less than 500 ng/mL (FEU) may help to exclude DVT or PE in outpatients when the assay is used with a clinical pretest probability assessment.(AE must utilize and document eCalc 'Wells Score Deep Vein Thrombosis Risk' for DVT exclusion only. Emergency Department should utilize Guidelines for Emergency Department Use of the VTE Exclusion D-Dimer and Clinical Pretest probability assessment model for DVT or PE exclusion.) POCT GLUCOSE - Abnormal POCT Glucose 288 (*) MAGNESIUM - Normal Magnesium 1.96 SERIAL TROPONIN-INITIAL - Normal Troponin I, High Sensitivity <3 Narrative: Less than 99th percentile of normal range cutoff- Female and children under 18 years old <14 ng/L; Male <21 ng/L: Negative Repeat testing should be performed if clinically indicated. Female and children under 18 years old 14-50 ng/L; Male 21-50 ng/L: Consistent with possible cardiac damage and possible increased clinical risk. Serial measurements may help to assess extent of myocardial damage. >50 ng/L: Consistent with cardiac damage, increased clinical risk and myocardial infarction. Serial measurements may help assess extent of myocardial damage. NOTE: Children less than 1 year old may have higher baseline troponin levels and results should be interpreted in conjunction with the overall clinical context. NOTE: Troponin I testing is performed using a different testing methodology at [facility] than at other [facility]. Direct result comparisons should only be made within the same method. SERIAL TROPONIN, 1 HOUR - Normal Troponin I, High Sensitivity <3 Narrative: Less than 99th percentile of normal range cutoff- Female and children under 18 years old <14 ng/L; Male <21 ng/L: Negative Repeat testing should be performed if clinically indicated. Female and children under 18 years old 14-50 ng/L; Male 21-50 ng/L: Consistent with possible cardiac damage and possible increased clinical risk. Serial measurements may help to assess extent of myocardial damage. >50 ng/L: Consistent with cardiac damage, increased clinical risk and myocardial infarction. Serial measurements may help assess extent of myocardial damage. NOTE: Children less than 1 year old may have higher baseline troponin levels and results should be interpreted in conjunction with the overall clinical context. NOTE: Troponin I testing is performed using a different testing methodology at [facility] than at other [facility]. Direct result comparisons should only be made within the same method. TROPONIN SERIES- (INITIAL, 1 HR) CT angio chest for pulmonary embolism Final Result 1. No acute intrathoracic abnormality. 2. Hepatosplenomegaly with probable hepatic steatosis. 3. Stable region of presumed linear scarring of the lingula. Signed by: Markos Reynolds 04/06/2024 4:56 PM Dictation workstation: [id number] XR chest 1 view Final Result 1. No evidence of acute cardiopulmonary process. MACRO: None. Signed by: Nnamdi Mcmanus 04/06/2024 2:25 PM Dictation workstation: [id number] Medical Decision Making: Patient appears well and nontoxic. Tachycardic and tachypneic upon arrival as well as hypertensive.Lab work shows hyperglycemia without evidence of DKA. Patient treated with 1 L of normal saline. High-sensitivity troponin negative x 2. CTA without pulmonary embolism, pneumothorax, pneumonia. Patient treated with DuoNeb and feeling much improved. Will be given albuterol inhaler for home and advised on continued oral hydration. Heart rate improved to approximately 100. Stable at time of discharge. Differential Diagnoses Considered: Musculoskeletal chest pain, ACS, pneumonia, pneumothorax, pulmonary embolism, bronchitis Independent Interpretation of Studies: I independently interpreted: Chest x-ray shows no evidence of pneumonia or pneumothorax. CTA chest shows no central pulmonary embolism. Escalation of Care: Appropriate for discharge and follow-up with primary care. Prescription Drug Consideration: Albuterol inhaler. 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 Wolf Marin: Sinus tachycardia at a rate of 121 bpm. AK interval 130 ms. QTc of [address] changes. ECG 12 lead Performed by: Wolf Marin DO Authorized by: Wolf Marin DO ECG interpreted by ED Physician in the absence of a building construction estimator: yes Comments: Repeat EKG performed at [address] Wolf Marin at 1510: Sinus tachycardia azam rate of 118 bpm. AK interval 142 ms. QTc of [address] changes. No evolving changes. Wolf Marin DO 04/06/24 1818 [facility] Work Phone: 1(871) 339-229706-07-2024 Telephone encounter Note* Telephone Encounter - Jeanette Miller APRN.CNP - 03/14/2024 2:40 PM EDT Noted, thanks. Will plan to discuss concerns further at upcoming visit. These are continued concerns that she has had. Likely related to anxiety so will discuss about as needed option for her to utilize during work. [facility]06-07-2024 Miscellaneous Notes* Telephone Encounter - Jeanette Miller APRN.CNP - 03/14/2024 2:40 PM EDT Noted, thanks. Will plan to discuss concerns further at upcoming visit. These are continued concerns that she has had. Likely related to anxiety so will discuss about as needed option for her to utilize during work. * Telephone Encounter - Matt Bradshaw LPN - 03/14/2024 2:28 PM EDT Patient reports I need something to calm me down Mostly this is happening at work, if I am inthe middle of something and I get sidetracked by something else, I get very upset and freak out I am more on edge and fidgety Nurse informed was gathering information for next appointment w/provider. Patient understood. Matt Bradshaw LPN * Telephone Encounter - Matt Bradshaw LPN - 03/14/2024 11:06 AM EDT Left VM on patient phone for call back or MC message regarding ADHD symptoms. Matt Bradshaw LPN * Telephone Encounter - Agnieszka Huhges - 03/14/2024 10:44 AM EDT Spoke to patient to reschedule her appointment. She stated she wanted to speak to you about ADHD because she is having many issues lately. Patient wouldn't give me much more information when asked. She did ask for a return call. Phone number:[phone] Thank you Agnieszka Hughes March 14, 2024 10:50 AM [facility] Tele[facility] encounter Note * Telephone Encounter - Matt Bradshaw LPN - 03/14/2024 2:28 PM EDT Patient reports I need something to calm me down Mostly this is happening at work, if I am inthe middle of something and I get sidetracked by something else, I get very upset and freak out I am more on edge and fidgety Nurse informed was gathering information for next appointment w/provider. Patient understood. Matt Bradshaw LPN [facility]06-07-2024 Telephone encounter Note* Telephone Encounter - Matt Bradshaw LPN - 03/14/2024 11:06 AM EDT Left VM on patient phone for call back or MC message regarding ADHD symptoms. Matt Bradshaw LPN [facility]06-07-2024 Telephone encounter Note* Telephone Encounter - Agnieszka Hughes - 03/14/2024 10:44 AM EDT Spoke to patient to reschedule her appointment. She stated she wanted to speak to you about ADHD because she is having many issues lately. Patient wouldn't give me much more information when asked. She did ask for a return call. Phone number:[phone] Thank you Agnieszka Hughes March 14, 2024 10:50 AM [facility]05-13-2024 Telephone encounter Note* Telephone Encounter - Rashawn Hu MA - 02/18/2024 8:50 AM EDT Pharmacy request denied. Patient needs to contact office for refills. Rashawn Hu MA [facility]05-13-2024 Miscellaneous Notes* Telephone Encounter - Rashawn Hu MA - 02/18/2024 8:50 AM EDT Pharmacy request denied. Patient needs to contact office for refills. Rashawn Hu MA [facility] Emergency department Note * Wolf Marin DO - 02/13/2024 3:03 PM EDTAssociated Order(s): ECG 12 lead HPI Chief Complaint Patient presents with Syncope Patient was standing in the kitchen and had ringing in her ears, bystanders report the patient having to sit down and feeling like she was going to pass out. Patient then was assisted to lie down. Patient is a DM and BGL was 190. Patient denies N/V/D/fever or recent illness, also reports that shehas not ate today. Patient denies pain. Limitations to History: None HPI: 38-year-old female presents for presyncope. 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 Rapid response was called. States that she has not eaten throughout theday today and is a diabetic. Patient initially to refuse but then again began feeling lightheaded and hearing ringing in her ears. Denies any headache, vision change, neck pain, chest pain, shortnessof breath, abdominal pain, nausea, vomiting. History of syncope in the past. Denies any recent headinjury. No sick contacts. Physical Exam: VS: As documented in the triage note and EMR flowsheet from this visit were reviewed. Appearance: Alert. cooperative, in no acute distress. Skin: Intact, dry skin, no lesions, rash, petechiae or purpura. Eyes: PERRLA, EOMs intact, Conjunctiva pink with no redness or exudates. HENT: Normocephalic, atraumatic. Nares patent. No intraoral lesions. Neck: Supple, without meningismus. Trachea at midline. No lymphadenopathy. Pulmonary: Clear bilaterally with good chest wall excursion. No rales, rhonchi or wheezing. No accessory muscle use or stridor. Cardiac: Regular rate and rhythm, no rubs, murmurs, or gallops. Abdomen: Abdomen is soft, nontender, and nondistended. No palpable organomegaly. No rebound or guarding. No CVA tenderness. Nonsurgical abdomen. Genitourinary: Exam deferred. Musculoskeletal: Full range of motion. Pulses full and equal. No cyanosis, clubbing, or edema. Neurological: Cranial nerves are grossly intact, grossly normal sensation, no weakness, no focal findings identified. Psychiatric: Appropriate mood and affect. [place] Coma Scale Score: 15 Patient History Past Medical History: Diagnosis Date Diabetes mellitus (Multi) Personal history of transient ischemic attack (TIA), and cerebral infarction without residual deficits History of cerebrovascular accident Past Surgical History: Procedure Laterality Date OTHER SURGICAL HISTORY 02/11/2020 Cholecystectomy No family history on file. Social History Tobacco Use Smoking status: Former Types: Cigarettes Smokeless tobacco: Never Substance Use Topics Alcohol use: Never Drug use: Never Physical Exam ED Triage Vitals [02/13/24 1513] Temperature Heart Rate Respirations BP 35.9 C (96.7 F) 100 16 (!) 148/108 Pulse Ox Temp src Heart Rate Source Patient Position 98 % -- -- -- BP Location FiO2 (%) -- -- Physical Exam ED Course & MDM Diagnoses as of 02/13/24 1750 Postural dizziness with presyncope Medical Decision Making Labs Reviewed COMPREHENSIVE METABOLIC PANEL - Abnormal Glucose 184 (*) Sodium 137 Potassium 3.8 Chloride 104 Bicarbonate 25 Anion Gap 12 Urea Nitrogen 14 Creatinine 0.61 eGFR >90 Calcium 9.1 Albumin 4.3 Alkaline Phosphatase 72 Total Protein 7.0 AST 17 Bilirubin, Total 0.9 ALT 16 URINALYSIS WITH REFLEX CULTURE AND MICROSCOPIC - Abnormal Color, Urine Yellow Appearance, Urine Clear Specific [place], Urine 1.029 pH, Urine 5.0 Protein, Urine NEGATIVE Glucose, Urine >=500 (3+) (*) Blood, Urine (*) Ketones, Urine 5 (TRACE) (*) Bilirubin, Urine NEGATIVE Urobilinogen, Urine <2.0 Nitrite, Urine NEGATIVE Leukocyte Esterase, Urine NEGATIVE POCT GLUCOSE - Abnormal POCT Glucose 165 (*) MAGNESIUM - Normal Magnesium 1.85 TROPONIN I, HIGH SENSITIVITY - Normal Troponin I, High Sensitivity <3 Narrative: Less than 99th percentile of normal range cutoff- Female and children under 18 years old <14 ng/L; Male <21 ng/L: Negative Repeat testing should be performed if clinically indicated. Female and children under 18 years old 14-50 ng/L; Male 21-50 ng/L: Consistent with possible cardiac damage and possible increased clinical risk. Serial measurements may help to assess extent of myocardial damage. >50 ng/L: Consistent with cardiac damage, increased clinical risk and myocardial infarction. Serial measurements may help assess extent of myocardial damage. NOTE: Children less than 1 year old may have higher baseline troponin levels and results should be interpreted in conjunction with the overall clinical context. NOTE: Troponin I testing is performed using a different testing methodology at [facility] than at other [facility]. Direct result comparisons should only be made within the same method. CBC WITH AUTO DIFFERENTIAL WBC 6.9 nRBC 0.0 RBC 4.20 Hemoglobin 13.3 Hematocrit 37.3 MCV 89 MCH 31.7 MCHC 35.7 RDW 13.9 Platelets 256 Neutrophils % 64.1 Immature Granulocytes %, Automated 0.7 Lymphocytes % 27.8 Monocytes % 5.4 Eosinophils % 1.6 Basophils % 0.4 Neutrophils Absolute 4.40 Immature Granulocytes Absolute, Au* 0.05 Lymphocytes Absolute 1.91 Monocytes Absolute 0.37 Eosinophils Absolute 0.11 Basophils Absolute 0.03 URINALYSIS WITH REFLEX CULTURE AND MICROSCOPIC Narrative: The following orders were created for panel order Urinalysis with Reflex Culture and Microscopic. Procedure Abnormality Status --------- ------ Urinalysis with Reflex C...[[id number]] Abnormal Final result Extra Urine Weber Tube[[id number]] In process Please view results for these tests on the individual orders. EXTRA URINE WEBER TUBE URINALYSIS MICROSCOPIC WITH REFLEX CULTURE XR chest 1 view Final Result Allowing for the aforementioned limitation, unremarkable chest. Signed by: Josué Hodgson 02/13/2024 3:21 PM Dictation workstation: [id number] Medical Decision Making: No focal deficit on exam. Hypertensive. Lab work unremarkable. Patient treated with 1 L normal saline and able to tolerate a full meal. Urine shows no evidence of infection. Patient does wish to be discharged home. Advised on continued fluid hydration. Stable at time of discharge. Differential Diagnoses Considered: Hypoglycemia, electrolyte abnormality, volume depletion, ACS, arrhythmia Independent Interpretation of Studies: I independently interpreted: Chest x-ray shows no evidence of pneumonia or pneumothorax. Escalation of Care: Appropriate for discharge and follow-up with primary care. 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 Wolf Marin: Normal sinus rhythm at 89 bpm. AK interval 152 ms. QTc of428 ms[address] changes. Wolf Marin DO 02/13/24 4529 documented in this [facility] Work Phone: 1(267) 514-721905-08-2024 Physician Emergency department Note* Wolf Marin DO - 02/13/2024 3:03 PM EDTAssociated Order(s): ECG 12 lead HPI Chief Complaint Patient presents with Syncope Patient was standing in the kitchen and had ringing in her ears, bystanders report the patient having to sit down and feeling like she was going to pass out. Patient then was assisted to lie down. Patient is a DM and BGL was 190. Patient denies N/V/D/fever or recent illness, also reports that shehas not ate today. Patient denies pain. Limitations to History: None HPI: 38-year-old female presents for presyncope. 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 Rapid response was called. States that she has not eaten throughout theday today and is a diabetic. Patient initially to refuse but then again began feeling lightheaded and hearing ringing in her ears. Denies any headache, vision change, neck pain, chest pain, shortnessof breath, abdominal pain, nausea, vomiting. History of syncope in the past. Denies any recent headinjury. No sick contacts. Physical Exam: VS: As documented in the triage note and EMR flowsheet from this visit were reviewed. Appearance: Alert. cooperative, in no acute distress. Skin: Intact, dry skin, no lesions, rash, petechiae or purpura. Eyes: PERRLA, EOMs intact, Conjunctiva pink with no redness or exudates. HENT: Normocephalic, atraumatic. Nares patent. No intraoral lesions. Neck: Supple, without meningismus. Trachea at midline. No lymphadenopathy. Pulmonary: Clear bilaterally with good chest wall excursion. No rales, rhonchi or wheezing. No accessory muscle use or stridor. Cardiac: Regular rate and rhythm, no rubs, murmurs, or gallops. Abdomen: Abdomen is soft, nontender, and nondistended. No palpable organomegaly. No rebound or guarding. No CVA tenderness. Nonsurgical abdomen. Genitourinary: Exam deferred. Musculoskeletal: Full range of motion. Pulses full and equal. No cyanosis, clubbing, or edema. Neurological: Cranial nerves are grossly intact, grossly normal sensation, no weakness, no focal findings identified. Psychiatric: Appropriate mood and affect. [place] Coma Scale Score: 15 Patient History Past Medical History: Diagnosis Date Diabetes mellitus (Multi) Personal history of transient ischemic attack (TIA), and cerebral infarction without residual deficits History of cerebrovascular accident Past Surgical History: Procedure Laterality Date OTHER SURGICAL HISTORY 02/11/2020 Cholecystectomy No family history on file. Social History Tobacco Use Smoking status: Former Types: Cigarettes Smokeless tobacco: Never Substance Use Topics Alcohol use: Never Drug use: Never Physical Exam ED Triage Vitals [02/13/24 1513] Temperature Heart Rate Respirations BP 35.9 C (96.7 F) 100 16 (!) 148/108 Pulse Ox Temp src Heart Rate Source Patient Position 98 % -- -- -- BP Location FiO2 (%) -- -- Physical Exam ED Course & MDM Diagnoses as of 02/13/24 1750 Postural dizziness with presyncope Medical Decision Making Labs Reviewed COMPREHENSIVE METABOLIC PANEL - Abnormal Glucose 184 (*) Sodium 137 Potassium 3.8 Chloride 104 Bicarbonate 25 Anion Gap 12 Urea Nitrogen 14 Creatinine 0.61 eGFR >90 Calcium 9.1 Albumin 4.3 Alkaline Phosphatase 72 Total Protein 7.0 AST 17 Bilirubin, Total 0.9 ALT 16 URINALYSIS WITH REFLEX CULTURE AND MICROSCOPIC - Abnormal Color, Urine Yellow Appearance, Urine Clear Specific [place], Urine 1.029 pH, Urine 5.0 Protein, Urine NEGATIVE Glucose, Urine >=500 (3+) (*) Blood, Urine (*) Ketones, Urine 5 (TRACE) (*) Bilirubin, Urine NEGATIVE Urobilinogen, Urine <2.0 Nitrite, Urine NEGATIVE Leukocyte Esterase, Urine NEGATIVE POCT GLUCOSE - Abnormal POCT Glucose 165 (*) MAGNESIUM - Normal Magnesium 1.85 TROPONIN I, HIGH SENSITIVITY - Normal Troponin I, High Sensitivity <3 Narrative: Less than 99th percentile of normal range cutoff- Female and children under 18 years old <14 ng/L; Male <21 ng/L: Negative Repeat testing should be performed if clinically indicated. Female and children under 18 years old 14-50 ng/L; Male 21-50 ng/L: Consistent with possible cardiac damage and possible increased clinical risk. Serial measurements may help to assess extent of myocardial damage. >50 ng/L: Consistent with cardiac damage, increased clinical risk and myocardial infarction. Serial measurements may help assess extent of myocardial damage. NOTE: Children less than 1 year old may have higher baseline troponin levels and results should be interpreted in conjunction with the overall clinical context. NOTE: Troponin I testing is performed using a different testing methodology at [facility] than at other legacy [facility]. Direct result comparisons should only be made within the same method. CBC WITH AUTO DIFFERENTIAL WBC 6.9 nRBC 0.0 RBC 4.20 Hemoglobin 13.3 Hematocrit 37.3 MCV 89 MCH 31.7 MCHC 35.7 RDW 13.9 Platelets 256 Neutrophils % 64.1 Immature Granulocytes %, Automated 0.7 Lymphocytes % 27.8 Monocytes % 5.4 Eosinophils % 1.6 Basophils % 0.4 Neutrophils Absolute 4.40 Immature Granulocytes Absolute, Au* 0.05 Lymphocytes Absolute 1.91 Monocytes Absolute 0.37 Eosinophils Absolute 0.11 Basophils Absolute 0.03 URINALYSIS WITH REFLEX CULTURE AND MICROSCOPIC Narrative: The following orders were created for panel order Urinalysis with Reflex Culture and Microscopic. Procedure Abnormality Status --------- ------ Urinalysis with Reflex C...[] Abnormal Final result Extra Urine Weber Tube[] In process Please view results for these tests on the individual orders. EXTRA URINE WEBER TUBE URINALYSIS MICROSCOPIC WITH REFLEX CULTURE XR chest 1 view Final Result Allowing for the aforementioned limitation, unremarkable chest. Signed by: Josué Hodgson 02/13/2024 3:21 PM Dictation workstation: [id number] Medical Decision Making: No focal deficit on exam. Hypertensive. Lab work unremarkable. Patient treated with 1 L normal saline and able to tolerate a full meal. Urine shows no evidence of infection. Patient does wish to be discharged home. Advised on continued fluid hydration. Stable at time of discharge. Differential Diagnoses Considered: Hypoglycemia, electrolyte abnormality, volume depletion, ACS, arrhythmia Independent Interpretation of Studies: I independently interpreted: Chest x-ray shows no evidence of pneumonia or pneumothorax. Escalation of Care: Appropriate for discharge and follow-up with primary care. 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 Wolf Marin: Normal sinus rhythm at 89 bpm. AK interval 152 ms. QTc of428 ms[address] changes. Wolf Marin DO 02/13/24 1751 [facility] Work Phone: [phone] 777-282904-24-2024 NoteHNO ID: [id number] Author: JEANETTE MILLER APRN.PUBLIC SAFETY TELECOMMUNICATOR Service: ? Author Type: Nurse Practitioner Type: Progress Notes Filed: 01/30/2024 09:31 Note Text: FOLLOW-UP PSYCHIATRIC PROGRESS NOTE Visit Type:Virtual Visit utilizing two-way audio and video for at least a portion of the visit. Consent for virtual visit obtained verbally. Confidentiality limitations with virtual visits reviewed with the patient and guardian, if present, who have accepted the risk verbally prior to proceeding with encounter. I have communicated my name and active licensure. The patient's identity and physical location were verified at the time of this visit. Either the patient or their legal sales representative uniforms has been informed of the risks and benefits of -- and alternatives to -- treatment through a remote evaluation and consents to proceed with the evaluation remotely. Reason for Visit: Outpatient follow-up and safety monitoring of previously prescribed psychiatric medication, psychotherapy or other treatment CHIEF COMPLAINT: Follow up for medication management HPI: Feels she is doing okay but I see it needs a little improvement but not too bad Continues to struggle with worrying and feeling like I am failing people Has started sleeping on the couch and feels that this has been working better for her as she is more relaxed and getting 6-7 hours per night Is planning on rearranging bedrooms with her kids to see if that helps with her continuing to better sleep Still working it's going great - has been making friends, feels that she is doing better there than any place she has worked before The only stressor at work is one co-worker who leaves her a lot of extra work but has been managing this well Her [id number]-duc is in the hospital so has been helping to care for her dogs which has been a stressor Would like to try an increase in Effexor Interval Progress since previous visit: slightly improved VITAL SIGNS: There were no vitals filed for this visit. ROS: PSYCH: See HPI All other systems negative. PATIENT DATA: MILENA-7 More data exists 01/23/2023 07/27/2023 11/29/2023 12/28/2023 01/30/2024 MILENA-7 All Questions Feeling nervous, anxious, or on edge More than half the days Nearly Everyday Several days Several days Nearly Everyday Not being able to stop or control worrying More than half the days - Several days Not at all Nearly Everyday Worrying too much about different things - Not at all Several days Several days Nearly Everyday Trouble relaxing More than half the days Not at all - Several days Nearly Everyday Being so restless that it is hard to sit still - Not at all - Several days Nearly Everyday Becoming easily annoyed or irritable Not at all Not at all Not at all Several days Several days Feeling afraid, as if something awful might happen Not at all Not at all Several days Several days Several days MILENA-7 Score - - - 6 17 PHQ-9 More data exists 02/16/2023 07/27/2023 11/29/2023 12/28/2023 01/30/2024 PHQ-9 Scores Little interest or pleasure in doing things Not at all Nearly every day Not at all Not at all Not at all Feeling down, depressed, or hopeless Not at all Nearly every day Not at all Several days Not at all Trouble falling or staying asleep, or sleeping too much - Nearly every day Several days Several days Several days Feeling tired or having little energy - Nearly every day Several days Several days Several days Poor appetite or overeating - Nearly every day Several days Not at all Not at all Feeling bad about yourself - or that you are a failure or have let yourself or your family down - Nearly every day Not at all Not at all Not at all Trouble concentrating on things, such as reading the newspaper or watching television - Nearly every day Not at all Not at all Not at all Moving or speaking so slowly that other people could have noticed. Or the opposite - being so fidgety or restless that you have been moving around a lot more than usual - Nearly every day Not at all Not at all Not at all Thoughts that you would be better off , or of hurting yourself in some way - Nearly every day Not at all Not at all Not at all PHQ-9 Score - 27 3 3 2 MENTAL STATUS EXAM: CONSTITUTIONAL: Well groomed, Appropriately dressed, Casually dressed, Well developed, Well nourished ORIENTATION: Person, Place, Time and Situation MEMORY: No deficiencies noted CONCENTRATION: Normal MOOD: euthymic AFFECT: Full and appropriate to topic SPEECH : Clear AND distinct LANGUAGE : Normal ASSOCIATIONS: Intact THOUGHT PROCESS : Logical, Coherent, and Rational PROGRESSION : There was no evidence of disturbance in thought perception or progression. FUND OF KNOWLEDGE : Appropriate and Adequate SUICIDE: Denies suicidal thoughts, plan, or intent. HOMICIDE: Denies homicidal thoughts, plan, or intent. Labwork: CBC and Differential: WBC Date Value Ref Range Status 11/ (more content not included)...[facility]04-24-2024 History of Present illness Narrative* Jeanette Miller APRN.PUBLIC SAFETY TELECOMMUNICATOR - 01/30/2024 9:08 AM EDT Images from the original note were not included. FOLLOW-UP PSYCHIATRIC PROGRESS NOTE Visit Type:Virtual Visit utilizing two-way audio and video for at least a portion of the visit. Consent for virtual visit obtained verbally. Confidentiality limitations with virtual visits reviewed with the patient and guardian, if present, who have accepted the risk verbally prior to proceeding with encounter. I have communicated my name and active licensure. The patient's identity and physical location were verified at the time of this visit. Either the patient or their legal sales representative uniforms has been informed of the risks and benefits of -- and alternatives to -- treatment through a remote evaluation and consents to proceed with the evaluation remotely. Reason for Visit: Outpatient follow-up and safety monitoring of previously prescribed psychiatric medication, psychotherapy or other treatment CHIEF COMPLAINT: Follow up for medication management HPI: Feels she is doing okay but I see it needs a little improvement but not too bad Continues to struggle with worrying and feeling like I am failing people Has started sleeping on the couch and feels that this has been working better for her as she is more relaxed and getting 6-7 hours per night Is planning on rearranging bedrooms with her kids to see if that helps with her continuing to better sleep Still working it's going great - has been making friends, feels that she is doing better there than any place she has worked before The only stressor at work is one co-worker who leaves her a lot of extra work but has been managingthis well Her ozuwki-lo-usx is in the hospital so has been helping to care for her dogs which has been a stressor Would like to try an increase in Effexor Interval Progress since previous visit: slightly improved VITAL SIGNS: There were no vitals filed for this visit. ROS: PSYCH: See HPI All other systems negative. PATIENT DATA: MILENA-7 More data exists 01/23/2023 07/27/2023 11/29/2023 12/28/2023 01/30/2024 MILENA-7 All Questions Feeling nervous, anxious, or on edge More than half the days Nearly Everyday Several days Several days Nearly Everyday Not being able to stop or control worrying More than half the days - Several days Not at all NearlyEveryday Worrying too much about different things - Not at all Several days Several days Nearly Everyday Trouble relaxing More than half the days Not at all - Several days Nearly Everyday Being so restless that it is hard to sit still - Not at all - Several days Nearly Everyday Becoming easily annoyed or irritable Not at all Not at all Not at all Several days Several days Feeling afraid, as if something awful might happen Not at all Not at all Several days Several days Several days MILENA-7 Score - - - 6 17 PHQ-9 More data exists 02/16/2023 07/27/2023 11/29/2023 12/28/2023 01/30/2024 PHQ-9 Scores Little interest or pleasure in doing things Not at all Nearly every day Not at all Not at all Not at all Feeling down, depressed, or hopeless Not at all Nearly every day Not at all Several days Not at all Trouble falling or staying asleep, or sleeping too much - Nearly every day Several days Several days Several days Feeling tired or having little energy - Nearly every day Several days Several days Several days Poor appetite or overeating - Nearly every day Several days Not at all Not at all Feeling bad about yourself - or that you are a failure or have let yourself or your family down - Nearly every day Not at all Not at all Not at all Trouble concentrating on things, such as reading the newspaper or watching television - Nearly every day Not at all Not at all Not at all Moving or speaking so slowly that other people could have noticed. Or the opposite - being so fidgety or restless that you have been moving around a lot more than usual - Nearly every day Not at all Not at all Not at all Thoughts that you would be better off , or of hurting yourself in some way - Nearly every day Not at all Not at all Not at all PHQ-9 Score - 27 3 3 2 MENTAL STATUS EXAM: CONSTITUTIONAL: Well groomed, Appropriately dressed, Casually dressed, Well developed, Well nourished ORIENTATION: Person, Place, Time and Situation MEMORY: No deficiencies noted CONCENTRATION: Normal MOOD: euthymic AFFECT: Full and appropriate to topic SPEECH : Clear & distinct LANGUAGE : Normal ASSOCIATIONS: Intact THOUGHT PROCESS : Logical, Coherent, and Rational PROGRESSION : There was no evidence of disturbance in thought perception or progression. FUND OF KNOWLEDGE : Appropriate and Adequate SUICIDE: Denies suicidal thoughts, plan, or intent. HOMICIDE: Denies homicidal thoughts, plan, or intent. Labwork: CBC and Differential: WBC Date Value Ref Range Status 08/23/2022 6.72 3.70 - 11.00 k/uL Final RBC Date Value Ref Range Status 08/23/2022 4.47 3.90 - 5.20 m/uL Final Hematocrit Date Value Ref Range Status 08/23/2022 38.3 36.0 - 46.0 % Final MCV Date Value Ref Range Status 08/23/2022 85.7 80.0 - 100.0 fL Final MCH Date Value Ref Range Status 08/23/2022 29.8 26.0 - 34.0 pg Final MCHC Date Value Ref Range Status 08/23/2022 34.7 30.5 - 36.0 g/dL Final Platelet Count Date Value Ref Range Status 08/23/2022 221 150 - 400 k/uL Final MPV Date Value Ref Range Status 08/23/2022 9.9 9.0 - 12.7 fL Final Comprehensive Metabolic Panel: BUN Date Value Ref Range Status 08/23/2022 14 7 - 21 mg/dL Final Creatinine Date Value Ref Range Status 08/23/2022 0.68 0.58 - 0.96 mg/dL Final Sodium Date Value Ref Range Status 08/23/2022 134 (L) 136 - 144 mmol/L Final Potassium Date Value Ref Range Status 08/23/2022 4.0 3.7 - 5.1 mmol/L Final CO2 Date Value Ref Range Status 08/23/2022 26 22 - 30 mmol/L Final Albumin Date Value Ref Range Status 08/07/2021 3.5 (L) 3.9 - 4.9 g/dL Final Comment: Rechecked ALT Date Value Ref Range Status 08/07/2021 18 7 - 38 U/L Final AST Date Value Ref Range Status 08/07/2021 21 13 - 35 U/L Final Gamma-Glutamyltransferase (GGT), Serum: No results found for: GGT Vitamin B12: No components found for: [id number] Vitamin D, Total: No results found for: VITD Thyroid Stimulating Hormone (TSH): TSH Date Value Ref Range Status 08/20/2022 3.040 0.270 - 4.200 mIU/L Final Comment: If the patient is , TSH reference range varies by gestational period: First Trimester (weeks 9-12): 0.180-2.990 mIU/L Second Trimester: 0.110-3.980 mIU/L Third Trimester: 0.480-4.710 mIU/L Irving Simpson, et al. A Practical Approach for the Verifications and Determination of Site- and Trimester-Specific Reference Intervals for Thyroid Function tests in . Thyroid, 2019:29:3:412-420.Rodríguez [address], et al. 2017 Guidelines of the [place] Thyroid Association for the Diagnosis and Management of Thyroid Disease during and the . Thyroid, 2017:27:3:315-389. Hemoglobin A1C: No results found for: HGBA1C Lipid Panel: Cholesterol, Total Date Value Ref Range Status 02/16/2023 278 (H) <200 mg/dL Final Comment: <200 mg/dL, Desirable 200-239 mg/dL, Borderline high >239 mg/dL, High HDL Cholesterol Date Value Ref Range Status 02/16/2023 35 (L) >39 mg/dL Final Comment: 40-59 mg/dL, Acceptable >59 mg/dL, High: Negative risk factor for coronary heart disease <40 mg/dL, Low: Positive risk factor for coronary heart disease LDL Cholesterol Date Value Ref Range Status 08/13/2021 128 (H) <100 mg/dL Final Comment: <100 mg/dL, Optimal 100-129 mg/dL, Near optimal/above optimal 130-159 mg/dL, Borderline high 160-189 mg/dL, High >189 mg/dL, Very high Secondary prevention optimal LDL Cholesterol levels are recommended to be < 70 mg/dL DATA REVIEWED: Electronic medical record DIAGNOSIS: PRIMARY: Anxiety Disorder Posttraumatic Stress Disorder - Chronic TREATMENT PLAN: Reviewed symptoms, medications and their side effects, labs, and progress being made. Discussed life situations and coping skills Support and encouragement provided PLAN AND FOLLOW UP: Medications: Change: --Effexor XR 150 mg to 187.5 mg once daily Continue: --Remeron 15 mg once daily at bedtime for sleep and anxiety Other: --encouraged to start therapy - declines at this time --discussed sleep hygiene Next appointment: --Schedule in 4-6 weeks or sooner if needed --To call the office call [phone] option 3 (for any questions or concerns) or [facility] may [facility] at [phone] --Message in Avancert any questions or concerns. For those experiencing a suicidal crisis: --call the National Suicide Prevention Lifeline at 787 (698-408-5978) --text the Crisis Text Line (text HOME to 633560) --call 321 and let them know you are having a mental health crisis or go to your nearest Emergency Room for stabilization. --You can also call Mobile Crisis at [phone]. Discussed side effects including any black box warnings, risks and benefits of medications, and alternatives. MEDICATION CHANGES: See above for changes Follow Up: 4-6 weeks I spent a total of 20 minutes on the date of the service which included preparing to see the patient, [id number]-phir patient care, completing clinical documentation, performing a medically appropriate examination, counseling and educating the patient/family/caregiver, and ordering medications, tests,or procedures. ADD ON PSYCHOTHERAPY CODE : No SIGNATURE: Jeanette Miller APRN.CNP PATIENT NAME: Reinaldo Warren DATE: 01/30/2024 TIME: 9:08 AM [facility] Miscellaneous Notes* Telephone Encounter - Ai Fitch MA - 01/25/2024 9:57 AM EDT Pt notified and scheduled for follow up appointment Ai Fitch MA * Telephone Encounter - Brayden Kumar APRN.CNP - 01/25/2024 9:26 AM EDT Please let patient know she needs to schedule an appt. I have provided a 30 day supply of her lisinopril. * Telephone Encounter - Dali Foster LPN - 01/25/2024 9:03 AM EDT Last appointment: 11/07/23 Next appointment: n/a Pharmacy verified in [facility]. Refill(s) requested: Requested Prescriptions Pending Prescriptions Disp Refills lisinopril (ZESTRIL) 40 mg tablet 90 tablet 2 Sig: Take 1 tablet by mouth once daily. Order(s) pended. Please advise. Dali Foster LPN, OIL AND GAS LEASE PUMPER documented [facility]04-18-2024 Miscellaneous Notes* Telephone Encounter - Angie Ponce - 01/24/2024 1:54 PM EDT Pharmacy requests 90 day supply for insurance to pay. The following medication(s) is being requested: LAST APPT - 12.28.23 NEXT APPT - 01.30.24 Requested Prescriptions Pending Prescriptions Disp Refills mirtazapine (REMERON) 15 mg tablet 90 tablet 0 Sig: Take 1 tablet by mouth daily at bedtime. Please process accordingly Angie Ponce [facility]04-18-2024 Miscellaneous Notes* Telephone Encounter - Lorrie Harrison - 01/24/2024 11:27 AM EDT The following medication(s) is being requested: Pharmacy request a 90 day supply. LAST APPT - 12-28-23 NEXT APPT - 01-30-24 Requested Prescriptions Pending Prescriptions Disp Refills mirtazapine (REMERON) 15 mg tablet 30 tablet 1 Sig: Take 1 tablet by mouth daily at bedtime. Please process accordingly Lorrie Harrison documented [facility]04-[facility] Emergency department Note * Freedom Cordon, [place]-PUBLIC SAFETY TELECOMMUNICATOR - 01/10/2024 12:48 PM EDT Chief Complaint Patient presents with Dental Pain Pt comes in for dental pain x months. Pt states the the lower right side of her jaw has a broken tooth that she has been trying to manage by herself. Pt believes that it is infected at this point andmay need an antibiotic. Pt is concerned that her blood sugar may be elevated as well. Patient History Past Medical History: Diagnosis Date Diabetes mellitus (CMS/HCC) Personal history of transient ischemic attack (TIA), and cerebral infarction without residual deficits History of cerebrovascular accident Past Surgical History: Procedure Laterality Date OTHER SURGICAL HISTORY 02/11/2020 Cholecystectomy No family history on file. Social History Social History Narrative Not on file Allergies Allergen Reactions Shellfish Derived Anaphylaxis Codeine Rash PMH: Reviewed PSH: Reviewed Social History: Reviewed. Allergies reviewed. HPI: Reinaldo Warren is a 38 y.o. female who presents to the ED today unaccompanied with complaints of right lower dental pain and concern for hyperglycemia. Patient states she has known tooth disease/gum disease which needs treated. Over the past 2 weeks she has had increasing pain along the right lower gumline. She has been trying to use just vlvq-qah-[id number] pain medications for relief. She now states she is having increasing pain as well as facial swelling. Denies fevers. She is also concerned for high blood sugar. States that she stopped taking one of her insulins because it was upsetting her stomach. She has been checking it at home, except for today. States has been running in the low 200s. PHYSICAL EXAM: GENERAL: Vitals noted, no distress. Alert and oriented x 3. Non-toxic. HEAD: Normocephalic, atraumatic. Pupils equally round and reactive to light. EOMI. overall poor dentition. Inflammation of the right lower gumline with fractured molar. No gumline abscess. No drainage noted. No trismus. NECK: Supple. No midline or paraspinal tenderness through full range of motion. CARDIAC: Regular rate, rhythm. No murmurs or rubs. RESPIRATORY: Lungs clear and equal bilaterally. No respiratory distress. MUSCULOSKELETAL & SKIN: Warm, dry, and intact. No rash/lesions. No peripheral edema. NEURO: No focal neurologic deficits, acting appropriately. Labs Reviewed POCT GLUCOSE - Abnormal Result Value POCT Glucose 146 (*) POCT FINGERSTICK GLUCOSE No orders to display Medical Decision Making ED COURSE: This patient was seen and examined by myself dependently. Patient's blood sugar today is146. Dental balls with Cetacaine spray and viscous lidocaine prepared for the patient. She will be given these for home use. Also will be treated with Pen-Vee K. She denies chance of today.Referred to dentist for follow up care. She is discharged home in a stable condition with computer instructions given and is encouraged to return to the ER for any new or worsening symptoms. DIAGNOSTIC IMPRESSION: #1 dental pain #2 elevated BS VIKKI Peña 01/10/24 1340 VIKKI Peña 01/10/24 1341 documented in this [facility] Work Phone: 1(109) 528-174704-04-2024 Physician Emergency department Note* Freedom Cordon, PROSTHETICS LAB TECHNICIAN-PUBLIC SAFETY TELECOMMUNICATOR - 01/10/2024 12:48 PM EDT Chief Complaint Patient presents with Dental Pain Pt comes in for dental pain x months. Pt states the the lower right side of her jaw has a broken tooth that she has been trying to manage by herself. Pt believes that it is infected at this point andmay need an antibiotic. Pt is concerned that her blood sugar may be elevated as well. Patient History Past Medical History: Diagnosis Date Diabetes mellitus (CMS/HCC) Personal history of transient ischemic attack (TIA), and cerebral infarction without residual deficits History of cerebrovascular accident Past Surgical History: Procedure Laterality Date OTHER SURGICAL HISTORY 02/11/2020 Cholecystectomy No family history on file. Social History Social History Narrative Not on file Allergies Allergen Reactions Shellfish Derived Anaphylaxis Codeine Rash PMH: Reviewed PSH: Reviewed Social History: Reviewed. Allergies reviewed. HPI: Reinaldo Warren is a 38 y.o. female who presents to the ED today unaccompanied with complaints of right lower dental pain and concern for hyperglycemia. Patient states she has known tooth disease/gum disease which needs treated. Over the past 2 weeks she has had increasing pain along the right lower gumline. She has been trying to use just [id number] pain medications for relief. She now states she is having increasing pain as well as facial swelling. Denies fevers. She is also concerned for high blood sugar. States that she stopped taking one of her insulins because it was upsetting her stomach. She has been checking it at home, except for today. States has been running in the low 200s. PHYSICAL EXAM: GENERAL: Vitals noted, no distress. Alert and oriented x 3. Non-toxic. HEAD: Normocephalic, atraumatic. Pupils equally round and reactive to light. EOMI. overall poor dentition. Inflammation of the right lower gumline with fractured molar. No gumline abscess. No drainage noted. No trismus. NECK: Supple. No midline or paraspinal tenderness through full range of motion. CARDIAC: Regular rate, rhythm. No murmurs or rubs. RESPIRATORY: Lungs clear and equal bilaterally. No respiratory distress. MUSCULOSKELETAL & SKIN: Warm, dry, and intact. No rash/lesions. No peripheral edema. NEURO: No focal neurologic deficits, acting appropriately. Labs Reviewed POCT GLUCOSE - Abnormal Result Value POCT Glucose 146 (*) POCT FINGERSTICK GLUCOSE No orders to display Medical Decision Making ED COURSE: This patient was seen and examined by myself dependently. Patient's blood sugar today is146. Dental balls with Cetacaine spray and viscous lidocaine prepared for the patient. She will be given these for home use. Also will be treated with Pen-Vee K. She denies chance of today.Referred to dentist for follow up care. She is discharged home in a stable condition with computer instructions given and is encouraged to return to the ER for any new or worsening symptoms. DIAGNOSTIC IMPRESSION: #1 dental pain #2 elevated BS VIKKI Peña 01/10/24 1340 VIKKI Peña 01/10/24 1341 [facility] Work Phone: 1(955) 736-749903-22-2024 NoteHNO ID: [id number] Author: JEANETTE MILLER APRN.LOR Service: ? Author Type: Nurse Practitioner Type: Progress Notes Filed: 12/28/2023 08:57 Note Text: FOLLOW-UP PSYCHIATRIC PROGRESS NOTE Visit Type:Virtual Visit utilizing two-way audio and video for at least a portion of the visit. Consent for virtual visit obtained verbally. Confidentiality limitations with virtual visits reviewed with the patient and guardian, if present, who have accepted the risk verbally prior to proceeding with encounter. I have communicated my name and active licensure. The patient's identity and physical location were verified at the time of this visit. Either the patient or their legal sales representative uniforms has been informed of the risks and benefits of -- and alternatives to -- treatment through a remote evaluation and consents to proceed with the evaluation remotely. Reason for Visit: Outpatient follow-up and safety monitoring of previously prescribed psychiatric medication, psychotherapy or other treatment CHIEF COMPLAINT: Follow up for medication management HPI: Is doing okay, steady Feels that her sleep is a little bit better, improving Is still feeling that her anxiety bothers her at night but it is getting better - anxiety is happening less often maybe about 10 nights out of the last month Gets about 6 hours of sleep per night; takes trazodone about 8-8:30 pm then will fall asleep on the couch and then her will wake her to go to bed later on Her biggest anxiety at night is that she isn't going to get everything done and that really bothers me Still really enjoys work - working part-time but has been trying to get a full-time position Still struggling with some health problems that she thinks contributes to her ability to work an 8 hour shift Reports that everything has to be a certain way and if there is something out of place it throws me off - will have to redo things before she can start something (at work for example) if someone else does it first Notes that her work tells her that I'm doing really good and that she has OCD Feels that she could benefit from an medication increase or change because of her anxiety Interval Progress since previous visit: slightly improved VITAL SIGNS: There were no vitals filed for this visit. ROS: PSYCH: See HPI All other systems negative. PATIENT DATA: MILENA-7 More data exists 11/22/2022 01/23/2023 07/27/2023 11/29/2023 12/28/2023 MILENA-7 All Questions Feeling nervous, anxious, or on edge Several days More than half the days Nearly Everyday Several days Several days Not being able to stop or control worrying Several days More than half the days - Several days Not at all Worrying too much about different things - - Not at all Several days Several days Trouble relaxing - More than half the days Not at all - Several days Being so restless that it is hard to sit still - - Not at all - Several days Becoming easily annoyed or irritable - Not at all Not at all Not at all Several days Feeling afraid, as if something awful might happen - Not at all Not at all Several days Several days MILENA-7 Score - - - - 6 PHQ-9 More data exists 01/23/2023 02/16/2023 07/27/2023 11/29/2023 12/28/2023 PHQ-9 Scores Little interest or pleasure in doing things More than half the days Not at all Nearly every day Not at all Not at all Feeling down, depressed, or hopeless More than half the days Not at all Nearly every day Not at all Several days Trouble falling or staying asleep, or sleeping too much More than half the days - Nearly every day Several days Several days Feeling tired or having little energy More than half the days - Nearly every day Several days Several days Poor appetite or overeating More than half the days - Nearly every day Several days Not at all Feeling bad about yourself - or that you are a failure or have let yourself or your family down More than half the days - Nearly every day Not at all Not at all Trouble concentrating on things, such as reading the newspaper or watching television More than half the days - Nearly every day Not at all Not at all Moving or speaking so slowly that other people could have noticed. Or the opposite - being so fidgety or restless that you have been moving around a lot more than usual More than half the days - Nearly every day Not at all Not at all Thoughts that you would be better off , or of hurting yourself in some way More than half the days - Nearly every day Not at all Not at all PHQ-9 Score 18 - 27 3 3 MENTAL STATUS EXAM: CONSTITUTIONAL: Well groomed, Appropriately dressed, Casually dressed, Well developed, Well nourished ORIENTATION: Person, Place, Time and Situation MEMORY: No deficiencies noted CONCENTRATION: Normal MOOD: euthymic AFFECT: Full and appropriate to topic SPEECH : Clear AND distinct LANGUAGE : Normal ASSOCIATIONS: Intact THOUGHT PROCESS (more content not included)...[facility]03-22-2024 History of Present illness Narrative* Jeanette Miller, [facility] - 12/28/2023 8:31 AM EDT Images from the original note were not included. FOLLOW-UP PSYCHIATRIC PROGRESS NOTE Visit Type:Virtual Visit utilizing two-way audio and video for at least a portion of the visit. Consent for virtual visit obtained verbally. Confidentiality limitations with virtual visits reviewed with the patient and guardian, if present, who have accepted the risk verbally prior to proceeding with encounter. I have communicated my name and active licensure. The patient's identity and physical location were verified at the time of this visit. Either the patient or their legal sales representative uniforms has been informed of the risks and benefits of -- and alternatives to -- treatment through a remote evaluation and consents to proceed with the evaluation remotely. Reason for Visit: Outpatient follow-up and safety monitoring of previously prescribed psychiatric medication, psychotherapy or other treatment CHIEF COMPLAINT: Follow up for medication management HPI: Is doing okay, steady Feels that her sleep is a little bit better, improving Is still feeling that her anxiety bothers her at night but it is getting better - anxiety is happening less often maybe about 10 nights out of the last month Gets about 6 hours of sleep per night; takes trazodone about 8-8:30 pm then will fall asleep on thecouch and then her will wake her to go to bed later on Her biggest anxiety at night is that she isn't going to get everything done and that really bothers me Still really enjoys work - working part-time but has been trying to get a full- time position Still struggling with some health problems that she thinks contributes to her ability to work an 8 hour shift Reports that everything has to be a certain way and if there is something out of place it throwsme off - will have to redo things before she can start something (at work for example) if someone else does it first Notes that her work tells her that I'm doing really good and that she has OCD Feels that she could benefit from an medication increase or change because of her anxiety Interval Progress since previous visit: slightly improved VITAL SIGNS: There were no vitals filed for this visit. ROS: PSYCH: See HPI All other systems negative. PATIENT DATA: MILENA-7 More data exists 11/22/2022 01/23/2023 07/27/2023 11/29/2023 12/28/2023 MILENA-7 All Questions Feeling nervous, anxious, or on edge Several days More than half the days Nearly Everyday Several days Several days Not being able to stop or control worrying Several days More than half the days - Several days Not at all Worrying too much about different things - - Not at all Several days Several days Trouble relaxing - More than half the days Not at all - Several days Being so restless that it is hard to sit still - - Not at all - Several days Becoming easily annoyed or irritable - Not at all Not at all Not at all Several days Feeling afraid, as if something awful might happen - Not at all Not at all Several days Several days MILENA-7 Score - - - - 6 PHQ-9 More data exists 01/23/2023 02/16/2023 07/27/2023 11/29/2023 12/28/2023 PHQ-9 Scores Little interest or pleasure in doing things More than half the days Not at all Nearly every day Notat all Not at all Feeling down, depressed, or hopeless More than half the days Not at all Nearly every day Not at allSeveral days Trouble falling or staying asleep, or sleeping too much More than half the days - Nearly every day Several days Several days Feeling tired or having little energy More than half the days - Nearly every day Several days Several days Poor appetite or overeating More than half the days - Nearly every day Several days Not at all Feeling bad about yourself - or that you are a failure or have let yourself or your family down More than half the days - Nearly every day Not at all Not at all Trouble concentrating on things, such as reading the newspaper or watching television More than half the days - Nearly every day Not at all Not at all Moving or speaking so slowly that other people could have noticed. Or the opposite - being so fidgety or restless that you have been moving around a lot more than usual More than half the days - Nearly every day Not at all Not at all Thoughts that you would be better off , or of hurting yourself in some way More than half the days - Nearly every day Not at all Not at all PHQ-9 Score 18 - 27 3 3 MENTAL STATUS EXAM: CONSTITUTIONAL: Well groomed, Appropriately dressed, Casually dressed, Well developed, Well nourished ORIENTATION: Person, Place, Time and Situation MEMORY: No deficiencies noted CONCENTRATION: Normal MOOD: euthymic AFFECT: Full and appropriate to topic SPEECH : Clear & distinct LANGUAGE : Normal ASSOCIATIONS: Intact THOUGHT PROCESS : Logical, Coherent, and Rational PROGRESSION : There was no evidence of disturbance in thought perception or progression. FUND OF KNOWLEDGE : Appropriate and Adequate SUICIDE: Denies suicidal thoughts, plan, or intent. HOMICIDE: Denies homicidal thoughts, plan, or intent. Labwork: CBC and Differential: WBC Date Value Ref Range Status 08/23/2022 6.72 3.70 - 11.00 k/uL Final RBC Date Value Ref Range Status 08/23/2022 4.47 3.90 - 5.20 m/uL Final Hematocrit Date Value Ref Range Status 08/23/2022 38.3 36.0 - 46.0 % Final MCV Date Value Ref Range Status 08/23/2022 85.7 80.0 - 100.0 fL Final MCH Date Value Ref Range Status 08/23/2022 29.8 26.0 - 34.0 pg Final MCHC Date Value Ref Range Status 08/23/2022 34.7 30.5 - 36.0 g/dL Final Platelet Count Date Value Ref Range Status 08/23/2022 221 150 - 400 k/uL Final MPV Date Value Ref Range Status 08/23/2022 9.9 9.0 - 12.7 fL Final Comprehensive Metabolic Panel: BUN Date Value Ref Range Status 08/23/2022 14 7 - 21 mg/dL Final Creatinine Date Value Ref Range Status 08/23/2022 0.68 0.58 - 0.96 mg/dL Final Sodium Date Value Ref Range Status 08/23/2022 134 (L) 136 - 144 mmol/L Final Potassium Date Value Ref Range Status 08/23/2022 4.0 3.7 - 5.1 mmol/L Final CO2 Date Value Ref Range Status 08/23/2022 26 22 - 30 mmol/L Final Albumin Date Value Ref Range Status 08/07/2021 3.5 (L) 3.9 - 4.9 g/dL Final Comment: Rechecked ALT Date Value Ref Range Status 08/07/2021 18 7 - 38 U/L Final AST Date Value Ref Range Status 08/07/2021 21 13 - 35 U/L Final Gamma-Glutamyltransferase (GGT), Serum: No results found for: GGT Vitamin B12: No components found for: [id number] Vitamin D, Total: No results found for: VITD Thyroid Stimulating Hormone (TSH): TSH Date Value Ref Range Status 08/20/2022 3.040 0.270 - 4.200 mIU/L Final Comment: If the patient is , TSH reference range varies by gestational period: First Trimester (weeks 9-12): 0.180-2.990 mIU/L Second Trimester: 0.110-3.980 mIU/L Third Trimester: 0.480-4.710 mIU/L Irving Simpson et al. A Practical Approach for the Verifications and Determination of Site- and Trimester-Specific Reference Intervals for Thyroid Function tests in . Thyroid, 2019:29:3:412-420.Rodrí[address]uez [address], et al. 2017 Guidelines of the [place] Thyroid Association for the Diagnosis and Management of Thyroid Disease during and the . Thyroid, 2017:27:3:315-389. Hemoglobin A1C: No results found for: HGBA1C Lipid Panel: Cholesterol, Total Date Value Ref Range Status 02/16/2023 278 (H) <200 mg/dL Final Comment: <200 mg/dL, Desirable 200-239 mg/dL, Borderline high >239 mg/dL, High HDL Cholesterol Date Value Ref Range Status 02/16/2023 35 (L) >39 mg/dL Final Comment: 40-59 mg/dL, Acceptable >59 mg/dL, High: Negative risk factor for coronary heart disease <40 mg/dL, Low: Positive risk factor for coronary heart disease LDL Cholesterol Date Value Ref Range Status 08/13/2021 128 (H) <100 mg/dL Final Comment: <100 mg/dL, Optimal 100-129 mg/dL, Near optimal/above optimal 130-159 mg/dL, Borderline high 160-189 mg/dL, High >189 mg/dL, Very high Secondary prevention optimal LDL Cholesterol levels are recommended to be < 70 mg/dL DATA REVIEWED: Electronic medical record DIAGNOSIS: PRIMARY: Anxiety Disorder Posttraumatic Stress Disorder - Chronic TREATMENT PLAN: Reviewed symptoms, medications and their side effects, labs, and progress being made. Discussed life situations and coping skills Support and encouragement provided PLAN AND FOLLOW UP: Medications: Continue: --Effexor XR 150 mg once daily Start: --Remeron 15 mg once daily at bedtime for sleep and anxiety Stop: --trazodone 100-200 mg once daily at bedtime as needed for sleep Other: --encouraged to start therapy - declines at this time --discussed sleep hygiene and encouraged to try using meditations to help with anxiety Next appointment: --Schedule in 4-6 weeks or sooner if needed --To call the office call [phone] option 3 (for any questions or concerns) or you may call thelapartment appointment line at [phone] --Message in Homeforswapt any questions or concerns. For those experiencing a suicidal crisis: --call the National Suicide Prevention Lifeline at 988 (944.365.7793) --text the Crisis Text Line (text HOME to 535574) --call 911 and let them know you are having a mental health crisis or go to your nearest Emergency Room for stabilization. --You can also call Mobile Crisis at [phone]. Discussed side effects including any black box warnings, risks and benefits of medications, and alternatives. MEDICATION CHANGES: See above for changes Follow Up: 4-6 weeks I spent a total of 25 minutes on the date of the service which included preparing to see the patient, [id number]-[id number] patient care, completing clinical documentation, performing a medically appropriate examination, counseling and educating the patient/family/caregiver, and ordering medications, tests,or procedures. ADD ON PSYCHOTHERAPY CODE : No SIGNATURE: Jeanette Miller APRN.CNP PATIENT NAME: Reinaldo Warren DATE: 12/28/2023 TIME: 8:32 AM [facility] Miscellaneous Notes* Telephone Encounter - Tiarra Rosas MA - 12/26/2023 2:41 PM EDT Called and spoke with patient and she wants to start a CGM and/or insulin pump. Advised patient sheneeds a follow up visit to discuss this. Transferred to call center. The supplies issues will be discussed at visit. CLOSED * Telephone Encounter - Tiarra Rosas MA - 12/19/2023 2:27 PM EDT Called patients home and left VM to call back office at [phone]. Please give message below. * Telephone Encounter - Tiarra Rosas MA - 12/14/2023 12:01 PM EST Waiting for patient to confirm what supplies she needs sent to this Dina, what is she paying out of pocket for? Once she confirms we will print and have sign them and fax to number below. * Telephone Encounter - Lidia Givens - 12/12/2023 11:56 AM EST Dina, from [employer] is requesting order for the patient's diabetic supplies to be faxed to: [employer] [phone] Atten : Dina Patient has been paying out of pocket for supplies, Dina will help the patient find an in networksupplier. [facility] Emergency department Note * Freedom Cordon, RAYMON-LOR - 12/23/2023 5:23 PM EDT Chief Complaint Patient presents with Dizziness Patient works here in [employer], 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 States she checked her glucose and it was 62. Ate some crackers and peanut butter and orange juice. Also states she has had a sore throat, runny nose, and nausea for a few days Patient History Past Medical History: Diagnosis Date Diabetes mellitus (CMS/HCC) Personal history of transient ischemic attack (TIA), and cerebral infarction without residual deficits History of cerebrovascular accident Past Surgical History: Procedure Laterality Date OTHER SURGICAL HISTORY 02/11/2020 Cholecystectomy No family history on file. Social History Social History Narrative Not on file Allergies Allergen Reactions Shellfish Derived Anaphylaxis Codeine Rash PMH: Reviewed PSH: Reviewed Social History: Reviewed. Allergies reviewed. HPI: Reinaldo Warren is a 38 y.o. female who presents to the ED today unaccompanied with complaints of feeling weak, dizzy/lightheaded. She was working when symptoms started. She did take her insulin around 1400 today without eating a full lunch. BS was 62 when she checked it. She has been ill for a few days - runny nose, sore throat, congestion with nausea. No fevers. Also complains of urinaryfrequency. LMP 3 weeks ago. REVIEW OF SYSTEMS: All other systems reviewed and negative except as listed in HPI. PHYSICAL EXAM: GENERAL: Vitals noted, no distress. Alert and oriented x 3. Non-toxic. EENT: TMs clear. Posterior oropharynx unremarkable. EOMI, no nystagmus noted. MMM. NECK: Supple. No masses. No midline tenderness. No meningeal signs. CARDIAC: Regular rate, rhythm. No murmurs rubs or gallops. No JVD. PULMONARY: Lungs clear and equal bilaterally. No wheezes rales or rhonchi. No respiratory distress. ABDOMEN: Soft, nondistended, and nontender. No peritoneal signs. Bowel sounds are present and normoactive in all 4 quadrants. No pulsatile masses. EXTREMITIES: No peripheral edema. SKIN: No rash. Warm, dry, and intact. NEURO: No focal neurologic deficits. Labs Reviewed COMPREHENSIVE METABOLIC PANEL - Abnormal Result Value Glucose 93 Sodium 137 Potassium 3.4 (*) Chloride 105 Bicarbonate 22 Anion Gap 13 Urea Nitrogen 15 Creatinine 0.62 eGFR >90 Calcium 9.4 Albumin 4.4 Alkaline Phosphatase 70 Total Protein 7.1 AST 19 Bilirubin, Total 0.7 ALT 16 CBC WITH AUTO DIFFERENTIAL - Abnormal WBC 7.9 nRBC 0.0 RBC 4.60 Hemoglobin 13.6 Hematocrit 41.8 MCV 91 MCH 29.6 MCHC 32.5 RDW 15.0 (*) Platelets 215 Neutrophils % 59.5 Immature Granulocytes %, Automated 0.4 Lymphocytes % 31.8 Monocytes % 6.7 Eosinophils % 1.0 Basophils % 0.6 Neutrophils Absolute 4.70 Immature Granulocytes Absolute, Automated 0.03 Lymphocytes Absolute 2.51 Monocytes Absolute 0.53 Eosinophils Absolute 0.08 Basophils Absolute 0.05 URINALYSIS WITH REFLEX CULTURE AND MICROSCOPIC - Abnormal Color, Urine Yellow Appearance, Urine Hazy (*) Specific [place], Urine 1.031 pH, Urine 5.0 Protein, Urine 100 (2+) (*) Glucose, Urine NEGATIVE Blood, Urine NEGATIVE Ketones, Urine NEGATIVE Bilirubin, Urine NEGATIVE Urobilinogen, Urine 2.0 (*) Nitrite, Urine NEGATIVE Leukocyte Esterase, Urine TRACE (*) MICROSCOPIC ONLY, URINE - Abnormal WBC, Urine 21-50 (*) RBC, Urine 6-10 (*) Squamous Epithelial Cells, Urine 1-9 (SPARSE) Bacteria, Urine 1+ (*) POCT GLUCOSE - Abnormal POCT Glucose 131 (*) HCG, URINE, QUALITATIVE - Normal HCG, Urine NEGATIVE SARS-COV-2 AND INFLUENZA A/B PCR - Normal Flu A Result Not Detected Flu B Result Not Detected Coronavirus 2019, PCR Not Detected Narrative: This assay has received FDA Emergency Use Authorization (EUA) and is only authorized for the duration of time that circumstances exist to justify the authorization of the emergency use of in vitro diagnostic tests for the detection of SARS-CoV-2 virus and/or diagnosis of COVID-19 infection under sec tion 564(b)(1) of the Act, 21 U.S.C. 360bbb-3(b)(1). Testing for SARS-CoV-2 is only recommended forpatients who meet current clinical and/or epidemiological criteria as defined by federal, state, orlocal public health directives. This assay is an in vitro diagnostic nucleic acid amplification test for the qualitative detection of SARS-CoV-2, Influenza A, and Influenza B from nasopharyngeal specimens and has been validated for use at [facility]. Negative results do not preclude COVID-19 infections or Influenza A/B infections, and should not be used as the sole basis for diagnosis, treatment, or other management decisions. If Influenza A/B and RSV PCR results are negative, testing for Parainfluenza virus, Adenovirus and Metapneumovirus is routinely performed for [facility] pediatric oncology and intensive care inpatients, and is available on other patients by placing anadd-on request. POCT GLUCOSE - Normal POCT Glucose 85 URINE CULTURE URINALYSIS WITH REFLEX CULTURE AND MICROSCOPIC Narrative: The following orders were created for panel order Urinalysis with Reflex Culture and Microscopic. Procedure Abnormality Status --------- ------ Urinalysis with Reflex C...[[id number]] Abnormal Final result Extra Urine Weber Tube[[id number]] Please view results for these tests on the individual orders. EXTRA URINE WEBER TUBE XR chest 1 view Final Result No acute findings. Signed by: Destiny Ann 12/23/2023 6:45 PM Dictation workstation: [id number] Medical Decision Making Amount and/or Complexity of Data Reviewed Labs: ordered. Radiology: ordered. ECG/medicine tests: ordered. EKG interpreted by myself shows ST with rate of 104. Left axis. AK interval 164. QRS interval 82. QT interval 322. QTc interval 423. Non-specific ST-T wave changes. No acute ischemia or injury pattern. ED COURSE: This patient was seen and examined by myself independently. Initially her blood sugar is85 here in the ED. She has blood drawn, nasal swab obtained, EKG done, is given a box lunch. Blood sugar comes up to 131, however she is tachycardic over 100. She has an IV established and is given normal saline 1 L which does bring her heart rate down into the high 90s. She feels much better on repeat evaluation. She has no evidence of COVID or flu. No evidence of infection or chest x-ray. She does however have evidence of UTI and has a negative test. She is treated here with oral Macrobid. Her potassium is 3.4, therefore she is given 40 mill equivalents orally here as well. Recomme nded PCP follow-up care. She states she does not have a primary currently and therefore she has a referral placed. She does follow with endocrinology in [place] for her diabetes. Advised her to continue to monitor blood sugar at home and continue to eat healthy meals. She verbalized understanding. Return for any new or worsening symptoms. Discharged home in stable condition computer instructions given. Differential Diagnoses Considered: Hypoglycemia, COVID, flu, URI, pneumonia, bronchitis Chronic Medical Conditions Significantly Affecting Care: See above External Records Reviewed: I reviewed recent and relevant outside records including: PCP notes, prior discharge summary, previous radiologic studies Diagnostic testing considered: Blood, urine, nasal swab, chest x-ray, EKG Escalation of Care: Appropriate for outpatient management Prescription Drug Consideration: macrobid DIAGNOSTIC IMPRESSION: #1 hypoglycemia #2 UTI #3 hypokalemia VIKKI Peña [birth year] documented in this [facility] Work Phone: 1(204) 410-580203-17-2024 Physician Emergency department Note* VIKKI Peña - 12/23/2023 5:23 PM EDT Chief Complaint Patient presents with Dizziness Patient works here in [employer], 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 States she checked her glucose and it was 62. Ate some crackers and peanut butter and orange juice. Also states she has had a sore throat, runny nose, and nausea for a few days Patient History Past Medical History: Diagnosis Date Diabetes mellitus (CMS/HCC) Personal history of transient ischemic attack (TIA), and cerebral infarction without residual deficits History of cerebrovascular accident Past Surgical History: Procedure Laterality Date OTHER SURGICAL HISTORY 02/11/2020 Cholecystectomy No family history on file. Social History Social History Narrative Not on file Allergies Allergen Reactions Shellfish Derived Anaphylaxis Codeine Rash PMH: Reviewed PSH: Reviewed Social History: Reviewed. Allergies reviewed. HPI: Reinaldo Warren is a 38 y.o. female who presents to the ED today unaccompanied with complaints of feeling weak, dizzy/lightheaded. She was working when symptoms started. She did take her insulin around 1400 today without eating a full lunch. BS was 62 when she checked it. She has been ill for a few days - runny nose, sore throat, congestion with nausea. No fevers. Also complains of urinaryfrequency. LMP 3 weeks ago. REVIEW OF SYSTEMS: All other systems reviewed and negative except as listed in HPI. PHYSICAL EXAM: GENERAL: Vitals noted, no distress. Alert and oriented x 3. Non-toxic. EENT: TMs clear. Posterior oropharynx unremarkable. EOMI, no nystagmus noted. MMM. NECK: Supple. No masses. No midline tenderness. No meningeal signs. CARDIAC: Regular rate, rhythm. No murmurs rubs or gallops. No JVD. PULMONARY: Lungs clear and equal bilaterally. No wheezes rales or rhonchi. No respiratory distress. ABDOMEN: Soft, nondistended, and nontender. No peritoneal signs. Bowel sounds are present and normoactive in all 4 quadrants. No pulsatile masses. EXTREMITIES: No peripheral edema. SKIN: No rash. Warm, dry, and intact. NEURO: No focal neurologic deficits. Labs Reviewed COMPREHENSIVE METABOLIC PANEL - Abnormal Result Value Glucose 93 Sodium 137 Potassium 3.4 (*) Chloride 105 Bicarbonate 22 Anion Gap 13 Urea Nitrogen 15 Creatinine 0.62 eGFR >90 Calcium 9.4 Albumin 4.4 Alkaline Phosphatase 70 Total Protein 7.1 AST 19 Bilirubin, Total 0.7 ALT 16 CBC WITH AUTO DIFFERENTIAL - Abnormal WBC 7.9 nRBC 0.0 RBC 4.60 Hemoglobin 13.6 Hematocrit 41.8 MCV 91 MCH 29.6 MCHC 32.5 RDW 15.0 (*) Platelets 215 Neutrophils % 59.5 Immature Granulocytes %, Automated 0.4 Lymphocytes % 31.8 Monocytes % 6.7 Eosinophils % 1.0 Basophils % 0.6 Neutrophils Absolute 4.70 Immature Granulocytes Absolute, Automated 0.03 Lymphocytes Absolute 2.51 Monocytes Absolute 0.53 Eosinophils Absolute 0.08 Basophils Absolute 0.05 URINALYSIS WITH REFLEX CULTURE AND MICROSCOPIC - Abnormal Color, Urine Yellow Appearance, Urine Hazy (*) Specific [place], Urine 1.031 pH, Urine 5.0 Protein, Urine 100 (2+) (*) Glucose, Urine NEGATIVE Blood, Urine NEGATIVE Ketones, Urine NEGATIVE Bilirubin, Urine NEGATIVE Urobilinogen, Urine 2.0 (*) Nitrite, Urine NEGATIVE Leukocyte Esterase, Urine TRACE (*) MICROSCOPIC ONLY, URINE - Abnormal WBC, Urine 21-50 (*) RBC, Urine 6-10 (*) Squamous Epithelial Cells, Urine 1-9 (SPARSE) Bacteria, Urine 1+ (*) POCT GLUCOSE - Abnormal POCT Glucose 131 (*) HCG, URINE, QUALITATIVE - Normal HCG, Urine NEGATIVE SARS-COV-2 AND INFLUENZA A/B PCR - Normal Flu A Result Not Detected Flu B Result Not Detected Coronavirus 2018, PCR Not Detected Narrative: This assay has received FDA Emergency Use Authorization (EUA) and is only authorized for the duration of time that circumstances exist to justify the authorization of the emergency use of in vitro diagnostic tests for the detection of SARS-CoV-2 virus and/or diagnosis of COVID-19 infection under sec tion 564(b)(1) of the Act, 21 U.S.C. 360bbb-3(b)(1). Testing for SARS-CoV-2 is only recommended forpatients who meet current clinical and/or epidemiological criteria as defined by federal, state, orlocal public health directives. This assay is an in vitro diagnostic nucleic acid amplification test for the qualitative detection of SARS-CoV-2, Influenza A, and Influenza B from nasopharyngeal specimens and has been validated for use at [facility]. Negative results do not preclude COVID-19 infections or Influenza A/B infections, and should not be used as the sole basis for diagnosis, treatment, or other management decisions. If Influenza A/B and RSV PCR results are negative, testing for Parainfluenza virus, Adenovirus and Metapneumovirus is routinely performed for [facility] pediatric oncology and intensive care inpatients, and is available on other patients by placing anadd-on request. POCT GLUCOSE - Normal POCT Glucose 85 URINE CULTURE URINALYSIS WITH REFLEX CULTURE AND MICROSCOPIC Narrative: The following orders were created for panel order Urinalysis with Reflex Culture and Microscopic. Procedure Abnormality Status --------- ------ Urinalysis with Reflex C...[[id number]] Abnormal Final result Extra Urine Weber Tube[[id number]] Please view results for these tests on the individual orders. EXTRA URINE WEBER TUBE XR chest 1 view Final Result No acute findings. Signed by: Destiny Ann 12/23/2023 6:45 PM Dictation workstation: [id number] Medical Decision Making Amount and/or Complexity of Data Reviewed Labs: ordered. Radiology: ordered. ECG/medicine tests: ordered. EKG interpreted by myself shows ST with rate of 104. Left axis. AK interval 164. QRS interval 82. QT interval 322. QTc interval 423. Non-specific ST-T wave changes. No acute ischemia or injury pattern. ED COURSE: This patient was seen and examined by myself independently. Initially her blood sugar is85 here in the ED. She has blood drawn, nasal swab obtained, EKG done, is given a box lunch. Blood sugar comes up to 131, however she is tachycardic over 100. She has an IV established and is given normal saline 1 L which does bring her heart rate down into the high 90s. She feels much better on repeat evaluation. She has no evidence of COVID or flu. No evidence of infection or chest x-ray. She does however have evidence of UTI and has a negative test. She is treated here with oral Macrobid. Her potassium is 3.4, therefore she is given 40 mill equivalents orally here as well. Recomme nded PCP follow-up care. She states she does not have a primary currently and therefore she has a referral placed. She does follow with endocrinology in [place] for her diabetes. Advised her to continue to monitor blood sugar at home and continue to eat healthy meals. She verbalized understanding. Return for any new or worsening symptoms. Discharged home in stable condition computer instructions given. Differential Diagnoses Considered: Hypoglycemia, COVID, flu, URI, pneumonia, bronchitis Chronic Medical Conditions Significantly Affecting Care: See above External Records Reviewed: I reviewed recent and relevant outside records including: PCP notes, prior discharge summary, previous radiologic studies Diagnostic testing considered: Blood, urine, nasal swab, chest x-ray, EKG Escalation of Care: Appropriate for outpatient management Prescription Drug Consideration: macrobid DIAGNOSTIC IMPRESSION: #1 hypoglycemia #2 UTI #3 hypokalemia VIKKI Peña [birth year] [facility] Work Phone: 1([phone]) 191-849103-17-2024 Reason for referral (narrative)* Consultation (Routine) - Authorized Specialty Diagnoses / Procedures Referred By Rasheed bryant Referred To Contact Family Medicine / Primary Care Freedom Cordon APRN-CNP [id number] [address] Referral ID Status Reason Start Date Expiration Date Visits Requested Visits Authorized [id number] Authorized Specialty Services Required 12/23/2023 12/22/2024 1 1 [facility] Work Phone: 1(955) 540-855903-01-2024 History of Present illness Narrative* Agustina Dallas RN - 12/07/2023 2:35 PM EST Care Transitions: Received call from Gill Caldera RN case manager with [employer]. Gill stated if he patient should need any supplies, DME or HHC services to call [employer] @ [phone] and they will find someone in network. Gill can be reached at [phone] ext. [phone] for any insurance questions. Gill will reach out to patient to assess for any needs as well. Agustina Dallas RN/TCC * VAUGHN Diane - 12/07/2023 10:23 AM EST Pt reviewed in care rounds this morning. Pt medically ready for discharge and anticipated will discharge later today. Plan is for Pt to discharge to home, no need for additional supports or services.[facility] is 24 and discharge to home, no needs, is appropriate. No further CT/SW assistance needs anticipated. * Agustina Dallas RN - 12/06/2023 11:20 AM EST 12/06/23 1307 Discharge Planning Living Arrangements Spouse/significant other;Children Support Systems Spouse/significant other Assistance Needed independent Type of Residence Private residence Number of Stairs to Enter Residence 3 Number of Stairs Within Residence 12 Do you have animals or pets at home? Yes Type of Animals or Pets 1 dog Who is requesting discharge planning? Provider Home or Post Acute Services None Patient expects to be discharged to: Home Does the patient need discharge transport arranged? Yes RoundTrip coordination needed? No Has discharge transport been arranged? No Care Transitions: Patient reviewed during care round meeting this AM and is not medically ready fordischarge. Met with patient and spouse at bedside. Role of TCC explained. Demographics and contactsverified. She lives with spouse Serge and 4 children. She does not currently have a PCP. List provided of available PCP's in her area. She uses [facility] pharmacy in [place] for medication needs. She is independent at home with all ADL's and still drives self. She denies the need for any diabetic supplies or DME equipment. [facility] . IMM explained, patient signed and copy given. Voiced understanding. Original in chart. States her plan is to return home with at discharge. Denies any needs or in home services. Care team to follow. Agustina Dallas RN/TCC * AKANKSHA Moya - 12/06/2023 10:01 AM EST Speech-Language Pathology Therapy Communication Note Patient Name: Reinaldo Warren Today's Date: 12/06/2023 Discipline: Speech Language Pathology Missed Time: Attempt Comment: [employer] had order for [employer] eval and treat with the note last continued at transfer on Nov 27 2023 5:59 AM [employer] spoke with bedside nurse. She reported pt is NPO d/t small bowel obstruction. Swallow evaluation not appropriate at this time. At this time [employer] complete order, if status changes please place a new speech order. documented in this [facility] Work Phone: 1([phone]) 111-154003-01-2024 Hospital Discharge instructions* Discharge Instr - Other Orders* Merline Eastman RN - 12/07/2023 2:00 PM EST Images from the original note were not included. Small Bowel Obstruction Discharge Instructions About this topic A small bowel obstruction is when the small bowel is blocked. Doctors may order tests to diagnose ablocked small bowel. The small bowel may be partly blocked or totally blocked. This obstruction maycause a buildup of stool and other digested contents inside the bowel. It may cause serious problems if not treated right away. What care is needed at home? Ask your doctor what you need to do when you go home. Make sure you ask questions if you do not understand what the doctor says. This way you will know what you need to do. You may have a tube in your nose in the hospital to remove digestive fluids. If you still have a tube in your nose when you go home, your doctor will tell you how to clean and care for it. Take your drugs as ordered by your doctor. If you had surgery, ask your doctor about how to care for your cut site: When you should change your bandages When you may take a bath or shower If you need to be careful with lifting things over 10 pounds (4.5 kg) When you may go back to your normal activities like work and driving What follow-up care is needed? Your doctor may ask you to make visits to the office to check on your progress. Be sure to keep these visits. If you have stitches or melva, you will need to have them taken out. Your doctor will often want to do this in 1 to 2 weeks. If the doctor used skin glue, the glue will fall off on its own. Your doctor may order extra tests to see how well you are doing. If this condition was caused by cancer, your doctor may tell you to have other treatments for the cancer. What drugs may be needed? The doctor may order drugs to: Help with pain Fight an infection Keep your stool soft Will physical activity be limited? Physical activities may be limited if you are suffering from pain. Talk to your doctor about the right amount of activity for you. If your doctor says it is okay, take short walks every day to help prevent blood clots. What changes to diet are needed? Ask your doctor or dietitian for a diet plan. Your doctor may suggest a liquid or soft diet until your bowel is stable and ready for regular food. Drink lots of clear liquids. Clear liquids include water, fruit juices, soup broth, gelatin, popsicles that do not have fruit or fruit pulp, tea or coffee with no added milk, and sports drinks. Avoid beer, wine, and mixed drinks (alcohol) and limit caffeine. What problems could happen? Hard stools Dehydration Infection Tear or hole in the small bowel Tissue Bowel function does not return to normal When do I need to call the doctor? Signs of infection. These include a fever of 100.4 F (38 C) or higher, chills, pain with passing urine or not able to pass urine, wound that will not heal. Signs of wound infection. These include swelling, redness, warmth around the wound; too much pain when touched; yellowish, greenish, or bloody discharge; foul smell coming from the cut site; cut siteopens up. Unable to pass stool or gas Very upset stomach or throwing up Very bad belly pain Teach Back: Helping You Understand The Teach Back Method helps you understand the information we are giving you. After you talk with the staff, tell them in your own words what you learned. This helps to make sure the staff has described each thing clearly. It also helps to explain things that may have been confusing. Before going home, make sure you can do these: I can tell you about my condition. I can tell you how to care for my cut site, if I have one. I can tell you what I will do if I have an upset stomach, throwing up, or am not able to pass stoolor gas. Last Reviewed Date 2021-02-23 [facility] Phone: 1(653) 230-982903-01-2024 Hospital course Narrative* Liza Hernández Gildardo, PROSTHETICS LAB TECHNICIAN-PUBLIC SAFETY TELECOMMUNICATOR - 12/07/2023 1:41 PM EST Discharge Diagnosis Periumbilical abdominal pain Issues Requiring Follow-Up It is recommended that she follow up with GI as an outpatient. It is recommended that she follow up with Primary care physician in 1 week for hospital follow up Discharge Meds Your medication list START taking these medications Instructions Last Dose Given Next Dose Due famotidine 20 mg tablet Commonly known as: Pepcid Take 1 tablet (20 mg) by mouth 2 times a day. metoclopramide 10 mg tablet Commonly known as: Reglan Take 1 tablet (10 mg) by mouth 4 times a day as needed (nausea). CONTINUE taking these medications Instructions Last Dose Given Next Dose Due lisinopril 10 mg tablet rosuvastatin 5 mg tablet Commonly known as: Crestor traZODone 100 mg tablet Commonly known as: Desyrel venlafaxine XR 150 mg 24 hr capsule Commonly known as: Effexor-XR Where to Get Your Medications These medications were sent to [facility]/pharmacy #[id number] [place] [id number] famotidine 20 mg tablet metoclopramide 10 mg tablet Test Results Pending At Discharge Pending Labs No current pending labs. Hospital Course Reinaldo Warren is a 38 y.o. female Who presented to the emergency room for abdominal pain nauseaand vomiting. On presentation, blood pressure 105/70, heart rate 125, respiratory rate 18, afebrile, saturation oxygen 98%. Pertinent findings on blood workup; WBC 13,600, glucose 244, and sodium 133. The rest is grossly within normal limits. CT scan of the abdomen pelvis showed findings highly consistent with a developing small bowel obstruction. Patient also has hepatic steatosis. Patient was given in the emergency room fentanyl, IV fluids, Protonix and Zofran. An NG tube was attempted to be placed but patient could not tolerate that. So it was aborted. Patient was then admitted to the medical service for further investigation and management. Upon encounter now, patient reports that she is still having the abdominal pain and the nausea. Thepain started out of. Then on the day of presentation. Acute severe and diffuse. Then she had nauseafollowed by vomiting. She did have also diarrhea. No fever or chills. First time she experiences such thing. No urinary tract symptoms. She did have abdominal surgeries in the past of cholecystectomy, , and umbilical hernia repair Pt had repeat KUB done and this showed non-obstructive gas, she was given miralax and lactulose, pthad 3 bowel movements prior to discharge. Pt also given zofran and reglan prior to discharge. Pt able to keep GI soft diet down without any vomiting. It is recommended that she follow up with GI in 4weeks and Primary care physician in 1 week. Pertinent Physical Exam At Time of Discharge Physical Exam General Appearance: AAO x 3, drowsy, not in acute distress Skin: skin color pink, warm, and dry Eyes : PERRL, EOM's intact ENT: mucous membranes pink and moist Head: normocephalic, atraumatic Respiratory: lungs clear to auscultation anteriorly; no wheezing, rhonchi, or crackles Heart: regular rate and rhythm. telemetry shows sinus rhythm Abdomen: Nondistended, hypoactive bowel sounds x4, soft, nontender Extremities: no edema noted to waldo lower ext, Peripheral pulses: normal x4 extremities Neuro: alert, coherent and conversant, no focal motor deficits Outpatient Follow-Up No future appointments. VIKKI Greenwood [facility] [address] [facility] Work Phone: 1(625) 213-334003-01-2024 Note* Significant Event - Inocencia Azar RN - 12/07/2023 8:22 AM EST Pt refused alarm [facility]03-01-2024 Miscellaneous Notes* Significant Event - Inocencia Azar RN - 12/07/2023 8:22 AM EST Pt refused alarm * Significant Event - VIKKI Greenwood - 12/06/2023 10:18 AM EST Pt seen after midnight, no change in plan of care Pt continues to refuse NG tube, started miralax, and repeat KUB General Appearance: AAO x 3, drowsy, not in acute distress Skin: skin color pink, warm, and dry Eyes : PERRL, EOM's intact ENT: mucous membranes pink and moist Head: normocephalic, atraumatic Respiratory: lungs clear to auscultation anteriorly; no wheezing, rhonchi, or crackles Heart: regular rate and rhythm. telemetry shows sinus rhythm Abdomen: Nondistended, hypoactive bowel sounds x4, soft, nontender Extremities: no edema noted to waldo lower ext, Peripheral pulses: normal x4 extremities Neuro: alert, coherent and conversant, no focal motor deficits * Care Plan - Rashawn Oshea RN - 12/06/2023 9:38 AM EST The patient's goals for the shift include no nausea or pain Problem: Pain Goal: My pain/discomfort is manageable Outcome: Progressing Problem: Safety Goal: Patient will be injury free during hospitalization Outcome: Progressing Goal: I will remain free of falls Outcome: Progressing Problem: Daily Care Goal: Daily care needs are met Outcome: Progressing Problem: Psychosocial Needs Goal: Demonstrates ability to cope with hospitalization/illness Outcome: Progressing Goal: Collaborate with me, my family, and caregiver to identify my specific goals Outcome: Progressing Problem: Discharge Barriers Goal: My discharge needs are met Outcome: Progressing Problem: Pain Goal: Takes deep breaths with improved pain control throughout the shift Outcome: Progressing Goal: Turns in bed with improved pain control throughout the shift Outcome: Progressing Goal: Walks with improved pain control throughout the shift Outcome: Progressing Goal: Performs ADL's with improved pain control throughout shift Outcome: Progressing Goal: Participates in PT with improved pain control throughout the shift Outcome: Progressing Goal: Free from opioid side effects throughout the shift Outcome: Progressing Goal: Free from acute confusion related to pain meds throughout the shift Outcome: Progressing The clinical goals for the shift include Patient will have no nausea or episodes of vomiting throughout this shift. Over the shift, the patient did not make progress toward the following goals. Barriers to progression include bowel obstruction. Recommendations to address these barriers include patient will remain NPO and have a repeat KUB today. documented in this [facility] Work Phone: 1([phone]) 987-616602-29-2024 Consult note* Inocencia Narayanan RDN, LD - 12/06/2023 11:05 AM ESTAssociated Order(s): IP CONSULT TO NUTRITION SERVICES Nutrition Initial Assessment: Nutrition Assessment Reason for Assessment: Provider consult order Patient is a 38 y.o. female presenting with:acute abdominal pain associated with nausea and vomiting. CT scan of the abdomen pelvis showed findings highly consistent with a developing small bowel obstruction. This was associated with SIRS [tachycardia, leukocytosis] and hyperglycemia. Patient and spouse seen - stated abdominal pain came on sudden, thought was related to blood sugar.Patient refused NG placement due to anxiety. Will monitor medical work up and NPO/clear liquid status for potential intervention. Nutrition History: Energy Intake: Good > 75 % Food and Nutrient History: Normal intake until last night when developed abdominal pain. Is diabetic Vitamin/Herbal Supplement Use: None Food Allergies/Intolerances: None GI Symptoms: Nausea, Vomiting, and Abdominal pain Oral Problems: None Anthropometrics: Height: 165.1 cm (5' 5) Weight: 85.9 kg (189 lb 6 oz) BMI (Calculated): 31.51 IBW/kg (Dietitian Calculated): 56.8 kg Percent of IBW: 151 % Adjusted Body Weight (kg): 64 kg Weight History: Weight Change %: Weight History / % Weight Change: loss 11# 5.5% in 1 year Significant Weight Loss: No Nutrition Focused Physical Exam Findings: Subcutaneous Fat Loss: Orbital Fat Pads: Well nourshed (slightly bulging fat pads) Buccal Fat Pads: Well nourished (full, rounded cheeks) Triceps: Well nourished (ample fat tissue) Ribs: Well nourished (full chest, ribs do not protrude) Muscle Wasting: Temporalis: Well nourished (well-defined muscle) Pectoralis (Clavicular Region): Well nourished (clavicle not visible) Deltoid/Trapezius: Well nourished (rounded appearance at arm, shoulder, neck) Interosseous: Well nourished (muscle bulges) Trapezius/Infraspinatus/Supraspinatus (Scapular Region): Well nourished (bones not prominent, muscle taut) Quadriceps: Well nourished (well developed, well rounded) Gastrocnemius: Well nourished (well developed bulbous muscle) Edema: Edema: none Physical Findings: Hair: Negative Eyes: Negative Mouth: Negative Nails: Negative Skin: Negative Nutrition Significant Labs: A1C: Lab Results Component Value Date HGBA1C 7.6 (A) 05/30/2023 , BG POCT trend: Results from last 7 days Lab Units 12/06/23 0709 POCT GLUCOSE mg/dL 201* , Renal Lab Trend: Results from last 7 days Lab Units 12/06/23 0835 12/05/23 2356 POTASSIUM mmol/L 4.2 4.4 PHOSPHORUS mg/dL 3.7 -- SODIUM mmol/L 135* 133* MAGNESIUM mg/dL -- 2.36 EGFR mL/min/1.73m*2 >90 >90 BUN mg/dL 15 18 CREATININE mg/dL 0.57 0.80 Nutrition Specific Medications: Scheduled medications famotidine, 20 mg, intravenous, q12h NORA insulin lispro, 0-5 Units, subcutaneous, TID polyethylene glycol, 17 g, oral, BID I/O: Last BM Date: 12/05/23 (According to the pt it was all liquid); Dietary Orders (From admission, onward) Start Ordered 12/06/23 09 NPO Diet Except: Sips with meds; Effective now Diet effective now Question: Except: Answer: Sips with meds 12/06/23934 Estimated Needs: Total Energy Estimated Needs (kCal): 1728 kCal Method for Estimating Needs: 25-30 kcal/kg adjusted IBW 64 kg = 0215-8293 kcal Total Protein Estimated Needs (g): 66 g Method for Estimating Needs: 0.8-1 gm/kg = 66-86 gm Total Fluid Estimated Needs (mL): 3000 mL Nutrition Diagnosis Malnutrition Diagnosis Patient has Malnutrition Diagnosis: No Nutrition Diagnosis Patient has Nutrition Diagnosis: Yes Diagnosis Status (1): New Nutrition Diagnosis 1: Altered nutrition related to laboratory values Related to (1): diabetes As Evidenced by (1): Blood glucose, A1C Additional Nutrition Diagnosis: Diagnosis 2 Diagnosis Status (2): New Nutrition Diagnosis 2: Altered GI function Related to (2): acute illness As Evidenced by (2): imaging, abdominal pain Nutrition Interventions/Recommendations Nutrition Prescription: Individualized Nutrition Prescription Provided for : NPO Nutrition Interventions: Interventions: Parenteral nutrition/ IV fluids Parenteral Nutrition/IV Fluids: IV fluid delivery Goal: NS at 100 ml/hr Collaboration and Referral of Nutrition Care: Collaboration by nutrition professional with other providers 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 Nutrition Monitoring and Evaluation Food/Nutrient Related History Monitoring Monitoring and Evaluation Plan: Energy intake Energy Intake: Estimated energy intake Criteria: Monitor NPO/clear status Biochemical Data, Medical Tests and Procedures Monitoring and Evaluation Plan: Glucose/endocrine profile Glucose/Endocrine Profile: Glucose, casual Criteria: 100-140 mg/dl Time Spent/Follow-up Reminder: Time Spent (min): 30 minutes Last Date of Nutrition Visit: 12/06/23 Nutrition Follow-Up Needed?: 3-5 days Follow up Comment: NPO/clear<5Days Inocencia Narayanan RDN, LD [facility] Work Phone: [phone] Consult note* Inocencia Narayanan RDN, LD - 12/06/2023 11:05 AM ESTAssociated Order(s): IP CONSULT TO NUTRITION SERVICES Nutrition Initial Assessment: Nutrition Assessment Reason for Assessment: Provider consult order Patient is a 38 y.o. female presenting with:acute abdominal pain associated with nausea and vomiting. CT scan of the abdomen pelvis showed findings highly consistent with a developing small bowel obstruction. This was associated with SIRS [tachycardia, leukocytosis] and hyperglycemia. Patient and spouse seen - stated abdominal pain came on sudden, thought was related to blood sugar.Patient refused NG placement due to anxiety. Will monitor medical work up and NPO/clear liquid status for potential intervention. Nutrition History: Energy Intake: Good > 75 % Food and Nutrient History: Normal intake until last night when developed abdominal pain. Is diabetic Vitamin/Herbal Supplement Use: None Food Allergies/Intolerances: None GI Symptoms: Nausea, Vomiting, and Abdominal pain Oral Problems: None Anthropometrics: Height: 165.1 cm (5' 5) Weight: 85.9 kg (189 lb 6 oz) BMI (Calculated): 31.51 IBW/kg (Dietitian Calculated): 56.8 kg Percent of IBW: 151 % Adjusted Body Weight (kg): 64 kg Weight History: Weight Change %: Weight History / % Weight Change: loss 11# 5.5% in 1 year Significant Weight Loss: No Nutrition Focused Physical Exam Findings: Subcutaneous Fat Loss: Orbital Fat Pads: Well nourshed (slightly bulging fat pads) Buccal Fat Pads: Well nourished (full, rounded cheeks) Triceps: Well nourished (ample fat tissue) Ribs: Well nourished (full chest, ribs do not protrude) Muscle Wasting: Temporalis: Well nourished (well-defined muscle) Pectoralis (Clavicular Region): Well nourished (clavicle not visible) Deltoid/Trapezius: Well nourished (rounded appearance at arm, shoulder, neck) Interosseous: Well nourished (muscle bulges) Trapezius/Infraspinatus/Supraspinatus (Scapular Region): Well nourished (bones not prominent, muscle taut) Quadriceps: Well nourished (well developed, well rounded) Gastrocnemius: Well nourished (well developed bulbous muscle) Edema: Edema: none Physical Findings: Hair: Negative Eyes: Negative Mouth: Negative Nails: Negative Skin: Negative Nutrition Significant Labs: A1C: Lab Results Component Value Date HGBA1C 7.6 (A) 05/30/2023 , BG POCT trend: Results from last 7 days Lab Units 12/06/23 0709 POCT GLUCOSE mg/dL 201* , Renal Lab Trend: Results from last 7 days Lab Units 12/06/23 0835 12/05/23 2356 POTASSIUM mmol/L 4.2 4.4 PHOSPHORUS mg/dL 3.7 -- SODIUM mmol/L 135* 133* MAGNESIUM mg/dL -- 2.36 EGFR mL/min/1.73m*2 >90 >90 BUN mg/dL 15 18 CREATININE mg/dL 0.57 0.80 Nutrition Specific Medications: Scheduled medications famotidine, 20 mg, intravenous, q12h NORA insulin lispro, 0-5 Units, subcutaneous, TID polyethylene glycol, 17 g, oral, BID I/O: Last BM Date: 12/05/23 (According to the pt it was all liquid); Dietary Orders (From admission, onward) Start Ordered 12/06/23 0936 NPO Diet Except: Sips with meds; Effective now Diet effective now Question: Except: Answer: Sips with meds 12/06/23 0935 Estimated Needs: Total Energy Estimated Needs (kCal): 1728 kCal Method for Estimating Needs: 25-30 kcal/kg adjusted IBW 64 kg = 2333-2508 kcal Total Protein Estimated Needs (g): 66 g Method for Estimating Needs: 0.8-1 gm/kg = 66-86 gm Total Fluid Estimated Needs (mL): 3000 mL Nutrition Diagnosis Malnutrition Diagnosis Patient has Malnutrition Diagnosis: No Nutrition Diagnosis Patient has Nutrition Diagnosis: Yes Diagnosis Status (1): New Nutrition Diagnosis 1: Altered nutrition related to laboratory values Related to (1): diabetes As Evidenced by (1): Blood glucose, A1C Additional Nutrition Diagnosis: Diagnosis 2 Diagnosis Status (2): New Nutrition Diagnosis 2: Altered GI function Related to (2): acute illness As Evidenced by (2): imaging, abdominal pain Nutrition Interventions/Recommendations Nutrition Prescription: Individualized Nutrition Prescription Provided for : NPO Nutrition Interventions: Interventions: Parenteral nutrition/ IV fluids Parenteral Nutrition/IV Fluids: IV fluid delivery Goal: NS at 100 ml/hr Collaboration and Referral of Nutrition Care: Collaboration by nutrition professional with other providers 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 Nutrition Monitoring and Evaluation Food/Nutrient Related History Monitoring Monitoring and Evaluation Plan: Energy intake Energy Intake: Estimated energy intake Criteria: Monitor NPO/clear status Biochemical Data, Medical Tests and Procedures Monitoring and Evaluation Plan: Glucose/endocrine profile Glucose/Endocrine Profile: Glucose, casual Criteria: 100-140 mg/dl Time Spent/Follow-up Reminder: Time Spent (min): 30 minutes Last Date of Nutrition Visit: 12/06/23 Nutrition Follow-Up Needed?: 3-5 days Follow up Comment: NPO/clear<5Days Inocencia Narayanan RDN, LD [facility] Work Phone: [phone]) [phone] Note* Significant Event - VIKKI Greenwood - 12/06/2023 10:18 AM EST Pt seen after midnight, no change in plan of care Pt continues to refuse NG tube, started miralax, and repeat KUB General Appearance: AAO x 3, drowsy, not in acute distress Skin: skin color pink, warm, and dry Eyes : PERRL, EOM's intact ENT: mucous membranes pink and moist Head: normocephalic, atraumatic Respiratory: lungs clear to auscultation anteriorly; no wheezing, rhonchi, or crackles Heart: regular rate and rhythm. telemetry shows sinus rhythm Abdomen: Nondistended, hypoactive bowel sounds x4, soft, nontender Extremities: no edema noted to waldo lower ext, Peripheral pulses: normal x4 extremities Neuro: alert, coherent and conversant, no focal motor deficits [facility] Work Phone: [phone]) [phone] Plan of care note* Care Plan - Rashawn Oshea RN - 12/06/2023 9:38 AM EST The patient's goals for the shift include no nausea or pain Problem: Pain Goal: My pain/discomfort is manageable Outcome: Progressing Problem: Safety Goal: Patient will be injury free during hospitalization Outcome: Progressing Goal: I will remain free of falls Outcome: Progressing Problem: Daily Care Goal: Daily care needs are met Outcome: Progressing Problem: Psychosocial Needs Goal: Demonstrates ability to cope with hospitalization/illness Outcome: Progressing Goal: Collaborate with me, my family, and caregiver to identify my specific goals Outcome: Progressing Problem: Discharge Barriers Goal: My discharge needs are met Outcome: Progressing Problem: Pain Goal: Takes deep breaths with improved pain control throughout the shift Outcome: Progressing Goal: Turns in bed with improved pain control throughout the shift Outcome: Progressing Goal: Walks with improved pain control throughout the shift Outcome: Progressing Goal: Performs ADL's with improved pain control throughout shift Outcome: Progressing Goal: Participates in PT with improved pain control throughout the shift Outcome: Progressing Goal: Free from opioid side effects throughout the shift Outcome: Progressing Goal: Free from acute confusion related to pain meds throughout the shift Outcome: Progressing The clinical goals for the shift include Patient will have no nausea or episodes of vomiting throughout this shift. Over the shift, the patient did not make progress toward the following goals. Barriers to progression include bowel obstruction. Recommendations to address these barriers include patient will remain NPO and have a repeat KUB today. [facility] History and physical note* Jadiel Macias MD - 12/06/2023 5:48 AM EST History Of Present Illness Reinaldo Warren is a 38 y.o. female Who presented to the emergency room for abdominal pain nauseaand vomiting. On presentation, blood pressure 105/70, heart rate 125, respiratory rate 18, afebrile, saturation oxygen 98%. Pertinent findings on blood workup; WBC 13,600, glucose 244, and sodium 133. The rest is grossly within normal limits. CT scan of the abdomen pelvis showed findings highly consistent with a developing small bowel obstruction. Patient also has hepatic steatosis. Patient was given in the emergency room fentanyl, IV fluids, Protonix and Zofran. An NG tube was attempted to be placed but patient could not tolerate that. So it was aborted. Patient was then admitted to the medical service for further investigation and management. Upon encounter now, patient reports that she is still having the abdominal pain and the nausea. Thepain started out of. Then on the day of presentation. Acute severe and diffuse. Then she had nauseafollowed by vomiting. She did have also diarrhea. No fever or chills. First time she experiences such thing. No urinary tract symptoms. She did have abdominal surgeries in the past of cholecystectomy, , and umbilical hernia repair ROS 10 systems were reviewed and were negative except for those noted in the history of present illness. Past Medical History Past Medical History: Diagnosis Date Diabetes mellitus (CMS/HCC) Personal history of transient ischemic attack (TIA), and cerebral infarction without residual deficits History of cerebrovascular accident Pertinent medical history also documented in my below narrative Surgical History Past Surgical History: Procedure Laterality Date OTHER SURGICAL HISTORY 02/11/2020 Cholecystectomy Pertinent surgical history also documented in my below narrative Social History She reports that she has quit smoking. Her smoking use included cigarettes. She has never used smokeless tobacco. She reports that she does not use drugs. No history on file for alcohol use. Family History No family history on file. Allergies Shellfish derived and Codeine No medications prior to admission. Last Recorded Vitals Blood pressure 131/85, pulse 96, temperature 36.5 C (97.7 F), temperature source Temporal, resp. rate 16, height 1.651 m (5' 5), weight 85.9 kg (189 lb 6 oz), last menstrual period 11/05/2023, [id number] %. Physical Exam Constitutional: General: She is in acute distress. Appearance: She is ill-appearing. Comments: Awake alert and oriented x3 HENT: Mouth/Throat: Pharynx: Oropharynx is clear. Eyes: Pupils: Pupils are equal, round, and reactive to light. Cardiovascular: Rate and Rhythm: Normal rate and regular rhythm. Heart sounds: Normal heart sounds. Pulmonary: Effort: No respiratory distress. Breath sounds: Normal breath sounds. No wheezing or rhonchi. Abdominal: General: Abdomen is flat. Bowel sounds are normal. There is no distension. Palpations: Abdomen is soft. Tenderness: There is abdominal tenderness. Musculoskeletal: General: No swelling. Skin: General: Skin is warm. Neurological: General: No focal deficit present. Psychiatric: Mood and Affect: Mood normal. Behavior: Behavior normal. Thought Content: Thought content normal. Judgment: Judgment normal. Relevant Results Results for orders placed or performed during the hospital encounter of 12/05/23 (from the past 24 hour(s)) CBC and Auto Differential Result Value Ref Range WBC 13.6 (H) 4.4 - 11.3 x10*3/uL nRBC 0.0 0.0 - 0.0 /100 WBCs RBC 5.43 (H) 4.00 - 5.20 x10*6/uL Hemoglobin 16.1 (H) 12.0 - 16.0 g/dL Hematocrit 47.5 (H) 36.0 - 46.0 % MCV 88 80 - 100 fL MCH 29.7 26.0 - 34.0 pg MCHC 33.9 32.0 - 36.0 g/dL RDW 15.4 (H) 11.5 - 14.5 % Platelets 354 150 - 450 x10*3/uL Neutrophils % 77.1 40.0 - 80.0 % Immature Granulocytes %, Automated 0.5 0.0 - 0.9 % Lymphocytes % 14.9 13.0 - 44.0 % Monocytes % 5.4 2.0 - 10.0 % Eosinophils % 1.7 0.0 - 6.0 % Basophils % 0.4 0.0 - 2.0 % Neutrophils Absolute 10.45 (H) 1.20 - 7.70 x10*3/uL Immature Granulocytes Absolute, Automated 0.07 0.00 - 0.70 x10*3/uL Lymphocytes Absolute 2.02 1.20 - 4.80 x10*3/uL Monocytes Absolute 0.73 0.10 - 1.00 x10*3/uL Eosinophils Absolute 0.23 0.00 - 0.70 x10*3/uL Basophils Absolute 0.06 0.00 - 0.10 x10*3/uL Comprehensive metabolic panel Result Value Ref Range Glucose 244 (H) 74 - 99 mg/dL Sodium 133 (L) 136 - 145 mmol/L Potassium 4.4 3.5 - 5.3 mmol/L Chloride 99 98 - 107 mmol/L Bicarbonate 23 21 - 32 mmol/L Anion Gap 15 10 - 20 mmol/L Urea Nitrogen 18 6 - 23 mg/dL Creatinine 0.80 0.50 - 1.05 mg/dL eGFR >90 >60 mL/min/1.73m*2 Calcium 10.3 8.6 - 10.3 mg/dL Albumin 4.9 3.4 - 5.0 g/dL Alkaline Phosphatase 77 33 - 110 U/L Total Protein 8.1 6.4 - 8.2 g/dL AST 19 9 - 39 U/L Bilirubin, Total 1.2 0.0 - 1.2 mg/dL ALT 19 7 - 45 U/L Magnesium Result Value Ref Range Magnesium 2.36 1.60 - 2.40 mg/dL Lipase Result Value Ref Range Lipase 16 9 - 82 U/L Lactate Result Value Ref Range Lactate 1.1 0.4 - 2.0 mmol/L Beta Hydroxybutyrate Result Value Ref Range Beta-Hydroxybutyrate 0.76 (H) 0.02 - 0.27 mmol/L Influenza A, and B PCR Result Value Ref Range Flu A Result Not Detected Not Detected Flu B Result Not Detected Not Detected Sars-CoV-2 PCR Result Value Ref Range Coronavirus 2019, PCR Not Detected Not Detected XR abdomen 1 view Result Date: 12/06/2023 Interpreted By: Devante Ramirez, STUDY: XR ABDOMEN 1 VIEW; 12/06/2023 2:42 am INDICATION: Signs/Symptoms:NGT placement. COMPARISON: CT abdomen pelvis 12/06/2023 ACCESSION NUMBER(S): [id number] ORDERING CLINICIAN: ANIA URIARTE FINDINGS: NG tube courses below the diaphragm, tip overlying the left upper quadrant in the expected location of the stomach. Dilated small bowel is better seen on prior CTabdomen pelvis. Visualized lungs are clear. Osseous structures demonstrate no acute bony changes. NG tube tip overlies the left upper quadrant in the expected location of the stomach. MACRO: None. Signed by: Devante Ramirez 12/06/2023 2:44 AM Dictation workstation: [id number] CT abdomen pelvis w IV contrast Result Date: 12/06/2023 Interpreted By: Montana Leonardo, STUDY: CT ABDOMEN PELVIS W IV CONTRAST; 12/06/2023 1:18 am INDICATION: Signs/Symptoms:pain. COMPARISON: None. ACCESSION NUMBER(S): [id number] ORDERING CLINICIAN: JOHN TECHNIQUE: Axial CT images of the abdomen and pelvis with coronal and sagittal reconstructed images obtained after intravenous administration of 68 mL of Omnipaque 350 FINDINGS: LOWER CHEST: Noacute abnormality of the lung bases. ABDOMEN: LIVER: The dome of the liver is excluded from the field of view thereby limiting evaluation. Normal morphology. Liver is hypodense relative to the spleenwhich can be seen in the setting of steatosis. More focal area of hypoattenuation adjacent to the fissure for ligamentum teres may relate focal fatty infiltration or perfusion variant. BILE DUCTS: Normal caliber. GALLBLADDER: Status post cholecystectomy. PANCREAS: Within normal limits. SPLEEN: Spleen is enlarged measuring 14.6 cm in craniocaudal dimension. Calcified splenic granulomas noted. ADRENALS: Within normal limits. KIDNEYS and URETERS: Symmetric renal enhancement. No hydronephrosis or perinephric fluid collection. VESSELS: No aortic aneurysm. RETROPERITONEUM: No pathologically enlarged retroperitoneal lymph nodes. PELVIS: REPRODUCTIVE ORGANS: Uterus is present. Bilateral tubal ligation clips noted. No adnexal mass. BLADDER: Bladder is under distended with apparent wall thickening. BOWEL: Stomach is partially distended. There are multiple mildly fluid-filled loops of small bowel measuring up to 3 cm. The distal loops of small bowel are decompressed with transition point suspected in the midline pelvis as seen on axial image 112 of 164. These findings raise concern for developing small bowel obstruction. There is mild haziness of the mesentery. Normal appendix. PERITONEUM: No ascites or free air, no fluid collection. ABDOMINAL WALL: Diastasis of the rectus sheath with protrusion of fat. Postsurgical changes of ventral hernia mesh repair suspected. BONES: Mild degenerative changes of the spine. There is several fluid-filled mildly dilated loops of small bowel measuring up to 3.6 cm with transition point in the pelvis as described above. The distal small bowel loops are decompressed. Findings are concerning for developing small bowel obstruction. Mild haziness of the mesentery. No free airor free fluid. Surgical consultation is advised. Splenomegaly measuring 14.6 cm in craniocaudal dimension. Hepatic steatosis. Additional findings as described above. MACRO: None Signed by: Montana Leonardo 12/06/2023 1:34 AM Dictation workstation: [id number] XR chest 1 view Result Date: 12/06/2023 Interpreted By: Magdaleno Jacobs, STUDY: XR CHEST 1 VIEW; 12/06/2023 12:42 am INDICATION: Signs/Symptoms:cough. COMPARISON: None. ACCESSION NUMBER(S): [id number] ORDERING CLINICIAN: ANIA URIARTE FINDINGS: AP radiograph of the chest was provided. CARDIOMEDIASTINAL SILHOUETTE: Cardiomediastinal silhouette is normal in size and configuration. LUNGS: Low lung volumes without evidence of consolidation or pleural effusion. ABDOMEN: No remarkable upper abdominal findings. BONES: No acute osseous changes. 1. Low lung volumes without evidence of consolidation or pleural effusion. MACRO: None Signed by: Magdaleno Jacobs 12/06/2023 1:00 AM Dictation workstation: [id number] Assessment/Plan 38-year-old obese female with a past gestational medical history of diabetes mellitus, depression, hypertension, hyperlipidemia, insomnia, hemorrhoids, migraines, status post , cholecystectomy, and umbilical hernia repair who presented to the emergency room for a sudden episode of acute abdominal pain associated with nausea and vomiting. CT scan of the abdomen pelvis showed findings highly consistent with a developing small bowel obstruction. This was associated with SIRS [tachycardia,leukocytosis] and hyperglycemia. Admit patient to the inpatient medical service with vital signs monitoring. Continue with supportive care IV fluids normal saline at rate of 100 cc/hour. NPO. Antiemetics as needed. Patient unfortunately declined using the NG tube. For pain control, Toradol 30 mg IV every 6 hours scheduled and additional morphine as needed. Given the diarrhea that the patient reported, will send stool sample for GI panel. Continue home medications Insulin sliding scale Pepcid for GI prophylaxis Full code (This note was generated with voice recognition software and may contain errors including spelling,grammar, syntax and misrecognition of what was dictated, that are not fully corrected) Jadiel Macias MD [facility] Work Phone: [phone]) [phone] History and physical note* Jadiel Macias MD - 12/06/2023 5:48 AM EST History Of Present Illness Reinaldo Warren is a 38 y.o. female Who presented to the emergency room for abdominal pain nauseaand vomiting. On presentation, blood pressure 105/70, heart rate 125, respiratory rate 18, afebrile, saturation oxygen 98%. Pertinent findings on blood workup; WBC 13,600, glucose 244, and sodium 133. The rest is grossly within normal limits. CT scan of the abdomen pelvis showed findings highly consistent with a developing small bowel obstruction. Patient also has hepatic steatosis. Patient was given in the emergency room fentanyl, IV fluids, Protonix and Zofran. An NG tube was attempted to be placed but patient could not tolerate that. So it was aborted. Patient was then admitted to the medical service for further investigation and management. Upon encounter now, patient reports that she is still having the abdominal pain and the nausea. Thepain started out of. Then on the day of presentation. Acute severe and diffuse. Then she had nauseafollowed by vomiting. She did have also diarrhea. No fever or chills. First time she experiences such thing. No urinary tract symptoms. She did have abdominal surgeries in the past of cholecystectomy, , and umbilical hernia repair ROS 10 systems were reviewed and were negative except for those noted in the history of present illness. Past Medical History Past Medical History: Diagnosis Date Diabetes mellitus (CMS/HCC) Personal history of transient ischemic attack (TIA), and cerebral infarction without residual deficits History of cerebrovascular accident Pertinent medical history also documented in my below narrative Surgical History Past Surgical History: Procedure Laterality Date OTHER SURGICAL HISTORY 02/11/2020 Cholecystectomy Pertinent surgical history also documented in my below narrative Social History She reports that she has quit smoking. Her smoking use included cigarettes. She has never used smokeless tobacco. She reports that she does not use drugs. No history on file for alcohol use. Family History No family history on file. Allergies Shellfish derived and Codeine No medications prior to admission. Last Recorded Vitals Blood pressure 131/85, pulse 96, temperature 36.5 C (97.7 F), temperature source Temporal, resp. rate 16, height 1.651 m (5' 5), weight 85.9 kg (189 lb 6 oz), last menstrual period 11/05/2023, SpO2 98 %. Physical Exam Constitutional: General: She is in acute distress. Appearance: She is ill-appearing. Comments: Awake alert and oriented x3 HENT: Mouth/Throat: Pharynx: Oropharynx is clear. Eyes: Pupils: Pupils are equal, round, and reactive to light. Cardiovascular: Rate and Rhythm: Normal rate and regular rhythm. Heart sounds: Normal heart sounds. Pulmonary: Effort: No respiratory distress. Breath sounds: Normal breath sounds. No wheezing or rhonchi. Abdominal: General: Abdomen is flat. Bowel sounds are normal. There is no distension. Palpations: Abdomen is soft. Tenderness: There is abdominal tenderness. Musculoskeletal: General: No swelling. Skin: General: Skin is warm. Neurological: General: No focal deficit present. Psychiatric: Mood and Affect: Mood normal. Behavior: Behavior normal. Thought Content: Thought content normal. Judgment: Judgment normal. Relevant Results Results for orders placed or performed during the hospital encounter of 12/05/23 (from the past 24 hour(s)) CBC and Auto Differential Result Value Ref Range WBC 13.6 (H) 4.4 - 11.3 x10*3/uL nRBC 0.0 0.0 - 0.0 /100 WBCs RBC 5.43 (H) 4.00 - 5.20 x10*6/uL Hemoglobin 16.1 (H) 12.0 - 16.0 g/dL Hematocrit 47.5 (H) 36.0 - 46.0 % MCV 88 80 - 100 fL MCH 29.7 26.0 - 34.0 pg MCHC 33.9 32.0 - 36.0 g/dL RDW 15.4 (H) 11.5 - 14.5 % Platelets 354 150 - 450 x10*3/uL Neutrophils % 77.1 40.0 - 80.0 % Immature Granulocytes %, Automated 0.5 0.0 - 0.9 % Lymphocytes % 14.9 13.0 - 44.0 % Monocytes % 5.4 2.0 - 10.0 % Eosinophils % 1.7 0.0 - 6.0 % Basophils % 0.4 0.0 - 2.0 % Neutrophils Absolute 10.45 (H) 1.20 - 7.70 x10*3/uL Immature Granulocytes Absolute, Automated 0.07 0.00 - 0.70 x10*3/uL Lymphocytes Absolute 2.02 1.20 - 4.80 x10*3/uL Monocytes Absolute 0.73 0.10 - 1.00 x10*3/uL Eosinophils Absolute 0.23 0.00 - 0.70 x10*3/uL Basophils Absolute 0.06 0.00 - 0.10 x10*3/uL Comprehensive metabolic panel Result Value Ref Range Glucose 244 (H) 74 - 99 mg/dL Sodium 133 (L) 136 - 145 mmol/L Potassium 4.4 3.5 - 5.3 mmol/L Chloride 99 98 - 107 mmol/L Bicarbonate 23 21 - 32 mmol/L Anion Gap 15 10 - 20 mmol/L Urea Nitrogen 18 6 - 23 mg/dL Creatinine 0.80 0.50 - 1.05 mg/dL eGFR >90 >60 mL/min/1.73m*2 Calcium 10.3 8.6 - 10.3 mg/dL Albumin 4.9 3.4 - 5.0 g/dL Alkaline Phosphatase 77 33 - 110 U/L Total Protein 8.1 6.4 - 8.2 g/dL AST 19 9 - 39 U/L Bilirubin, Total 1.2 0.0 - 1.2 mg/dL ALT 19 7 - 45 U/L Magnesium Result Value Ref Range Magnesium 2.36 1.60 - 2.40 mg/dL Lipase Result Value Ref Range Lipase 16 9 - 82 U/L Lactate Result Value Ref Range Lactate 1.1 0.4 - 2.0 mmol/L Beta Hydroxybutyrate Result Value Ref Range Beta-Hydroxybutyrate 0.76 (H) 0.02 - 0.27 mmol/L Influenza A, and B PCR Result Value Ref Range Flu A Result Not Detected Not Detected Flu B Result Not Detected Not Detected Sars-CoV-2 PCR Result Value Ref Range Coronavirus 2019, PCR Not Detected Not Detected XR abdomen 1 view Result Date: 12/06/2023 Interpreted By: Devante Ramirez, STUDY: XR ABDOMEN 1 VIEW; 12/06/2023 2:42 am INDICATION: Signs/Symptoms:NGT placement. COMPARISON: CT abdomen pelvis 12/06/2023 ACCESSION NUMBER(S): [id number] ORDERING CLINICIAN: ANIA URIARTE FINDINGS: NG tube courses below the diaphragm, tip overlying the left upper quadrant in the expected location of the stomach. Dilated small bowel is better seen on prior CTabdomen pelvis. Visualized lungs are clear. Osseous structures demonstrate no acute bony changes. NG tube tip overlies the left upper quadrant in the expected location of the stomach. MACRO: None. Signed by: Devatne Ramirez 12/06/2023 2:44 AM Dictation workstation: [id number] CT abdomen pelvis w IV contrast Result Date: 12/06/2023 Interpreted By: Montana Leonardo, STUDY: CT ABDOMEN PELVIS W IV CONTRAST; 12/06/2023 1:18 am INDICATION: Signs/Symptoms:pain. COMPARISON: None. ACCESSION NUMBER(S): [id number] ORDERING CLINICIAN: JOHN TECHNIQUE: Axial CT images of the abdomen and pelvis with coronal and sagittal reconstructed images obtained after intravenous administration of 68 mL of Omnipaque 350 FINDINGS: LOWER CHEST: Noacute abnormality of the lung bases. ABDOMEN: LIVER: The dome of the liver is excluded from the field of view thereby limiting evaluation. Normal morphology. Liver is hypodense relative to the spleenwhich can be seen in the setting of steatosis. More focal area of hypoattenuation adjacent to the fissure for ligamentum teres may relate focal fatty infiltration or perfusion variant. BILE DUCTS: Normal caliber. GALLBLADDER: Status post cholecystectomy. PANCREAS: Within normal limits. SPLEEN: Spleen is enlarged measuring 14.6 cm in craniocaudal dimension. Calcified splenic granulomas noted. ADRENALS: Within normal limits. KIDNEYS and URETERS: Symmetric renal enhancement. No hydronephrosis or perinephric fluid collection. VESSELS: No aortic aneurysm. RETROPERITONEUM: No pathologically enlarged retroperitoneal lymph nodes. PELVIS: REPRODUCTIVE ORGANS: Uterus is present. Bilateral tubal ligation clips noted. No adnexal mass. BLADDER: Bladder is under distended with apparent wall thickening. BOWEL: Stomach is partially distended. There are multiple mildly fluid-filled loops of small bowel measuring up to 3 cm. The distal loops of small bowel are decompressed with transition point suspected in the midline pelvis as seen on axial image 112 of 164. These findings raise concern for developing small bowel obstruction. There is mild haziness of the mesentery. Normal appendix. PERITONEUM: No ascites or free air, no fluid collection. ABDOMINAL WALL: Diastasis of the rectus sheath with protrusion of fat. Postsurgical changes of ventral hernia mesh repair suspected. BONES: Mild degenerative changes of the spine. There is several fluid-filled mildly dilated loops of small bowel measuring up to 3.6 cm with transition point in the pelvis as described above. The distal small bowel loops are decompressed. Findings are concerning for developing small bowel obstruction. Mild haziness of the mesentery. No free airor free fluid. Surgical consultation is advised. Splenomegaly measuring 14.6 cm in craniocaudal dimension. Hepatic steatosis. Additional findings as described above. MACRO: None Signed by: Montana Leonardo 12/06/2023 1:34 AM Dictation workstation: [id number] XR chest 1 view Result Date: 12/06/2023 Interpreted By: Magdaleno Jacobs, STUDY: XR CHEST 1 VIEW; 12/06/2023 12:42 am INDICATION: Signs/Symptoms:cough. COMPARISON: None. ACCESSION NUMBER(S): [id number] ORDERING CLINICIAN: ANIA URIARTE FINDINGS: AP radiograph of the chest was provided. CARDIOMEDIASTINAL SILHOUETTE: Cardiomediastinal silhouette is normal in size and configuration. LUNGS: Low lung volumes without evidence of consolidation or pleural effusion. ABDOMEN: No remarkable upper abdominal findings. BONES: No acute osseous changes. 1. Low lung volumes without evidence of consolidation or pleural effusion. MACRO: None Signed by: Magdaleno Jacobs 12/06/2023 1:00 AM Dictation workstation: [id number] Assessment/Plan 38-year-old obese female with a past gestational medical history of diabetes mellitus, depression, hypertension, hyperlipidemia, insomnia, hemorrhoids, migraines, status post , cholecystectomy, and umbilical hernia repair who presented to the emergency room for a sudden episode of acute abdominal pain associated with nausea and vomiting. CT scan of the abdomen pelvis showed findings highly consistent with a developing small bowel obstruction. This was associated with SIRS [tachycardia,leukocytosis] and hyperglycemia. Admit patient to the inpatient medical service with vital signs monitoring. Continue with supportive care IV fluids normal saline at rate of 100 cc/hour. NPO. Antiemetics as needed. Patient unfortunately declined using the NG tube. For pain control, Toradol 30 mg IV every 6 hours scheduled and additional morphine as needed. Given the diarrhea that the patient reported, will send stool sample for GI panel. Continue home medications Insulin sliding scale Pepcid for GI prophylaxis Full code (This note was generated with voice recognition software and may contain errors including spelling,grammar, syntax and misrecognition of what was dictated, that are not fully corrected) Jadiel Macias MD documented in this [facility] Work Phone: [phone] 988-174502-28-2024 Emergency department Note* Ania Uriarte, - 12/05/2023 11:08 PM EST HPI Chief Complaint Patient presents with Vomiting Pt c/o abdominal pain with vomiting for a couple hours prior to arrival 38-year-old diabetic presents with recurrent nausea and vomiting. Patient states symptoms started about 5 to 6 hours ago. Patient states she has been exposed to influenza and other illnesses on the job. Patient is also complaining of diarrhea. Patient was obviously nauseated when I examined her. Patient denies any cough or congestion right now. Patient is complaining of some generalized weakness and fatigue. Patient will have an IV established and be hydrated. Patient states pain intensified and she was given morphine sulfate 2 mg IV. I did go over the CT findings with the patient indicating that she had an early small bowel obstruction and will be admitted for further inpatient diagnostic s tudies and treatment. History provided by: Patient Rosa Coma Scale Score: 15 Patient History Past Medical History: Diagnosis Date Personal history of transient ischemic attack (TIA), and cerebral infarction without residual deficits History of cerebrovascular accident Past Surgical History: Procedure Laterality Date OTHER SURGICAL HISTORY 02/11/2020 Cholecystectomy No family history on file. Social History Tobacco Use Smoking status: Former Types: Cigarettes Smokeless tobacco: Never Substance Use Topics Alcohol use: Not on file Drug use: Never Physical Exam ED Triage Vitals [12/05/23 2312] Temperature Heart Rate Respirations BP 36.6 C (97.8 F) (!) 125 18 105/70 Pulse Ox Temp src Heart Rate Source Patient Position 98 % -- -- -- BP Location FiO2 (%) -- -- Physical Exam Vitals and nursing note reviewed. Constitutional: General: She is not in acute distress. Appearance: She is well-developed. HENT: Head: Normocephalic and atraumatic. Eyes: Conjunctiva/sclera: Conjunctivae normal. Cardiovascular: Rate and Rhythm: Regular rhythm. Tachycardia present. Heart sounds: No murmur heard. Pulmonary: Effort: Pulmonary effort is normal. No respiratory distress. Breath sounds: Normal breath sounds. Abdominal: Palpations: Abdomen is soft. Tenderness: There is no abdominal tenderness. Comments: Midepigastric tenderness to palpation with some periumbilical involvement. Musculoskeletal: General: No swelling. Cervical back: Neck supple. Skin: General: Skin is warm and dry. Capillary Refill: Capillary refill takes less than 2 seconds. Neurological: Mental Status: She is alert. Psychiatric: Mood and Affect: Mood normal. ED Course & MDM Diagnoses as of 12/06/23 0201 Periumbilical abdominal pain SBO (small bowel obstruction) ([facility]) Labs Reviewed CBC WITH AUTO DIFFERENTIAL - Abnormal Result Value WBC 13.6 (*) nRBC 0.0 RBC 5.43 (*) Hemoglobin 16.1 (*) Hematocrit 47.5 (*) MCV 88 MCH 29.7 MCHC 33.9 RDW 15.4 (*) Platelets 354 Neutrophils % 77.1 Immature Granulocytes %, Automated 0.5 Lymphocytes % 14.9 Monocytes % 5.4 Eosinophils % 1.7 Basophils % 0.4 Neutrophils Absolute 10.45 (*) Immature Granulocytes Absolute, Automated 0.07 Lymphocytes Absolute 2.02 Monocytes Absolute 0.73 Eosinophils Absolute 0.23 Basophils Absolute 0.06 COMPREHENSIVE METABOLIC PANEL - Abnormal Glucose 244 (*) Sodium 133 (*) Potassium 4.4 Chloride 99 Bicarbonate 23 Anion Gap 15 Urea Nitrogen 18 Creatinine 0.80 eGFR >90 Calcium 10.3 Albumin 4.9 Alkaline Phosphatase 77 Total Protein 8.1 AST 19 Bilirubin, Total 1.2 ALT 19 BETA HYDROXYBUTYRATE - Abnormal Beta-Hydroxybutyrate 0.76 (*) Narrative: The beta-hydroxybutyrate test performance characteristics have been validated by [facility]. This test has not been approved by the FDA; however, such approval is not necessary. MAGNESIUM - Normal Magnesium 2.36 LIPASE - Normal Lipase 16 Narrative: Venipuncture immediately after or during the administration of Metamizole may lead to falsely low results. Testing should be performed immediately prior to Metamizole dosing. LACTATE - Normal Lactate 1.1 Narrative: Venipuncture immediately after or during the administration of Metamizole may lead to falsely low results. Testing should be performed immediately prior to Metamizole dosing. INFLUENZA A AND B PCR - Normal Flu A Result Not Detected Flu B Result Not Detected Narrative: This assay is an in vitro diagnostic multiplex nucleic acid amplification test for the detection and discrimination of Influenza A & B from nasopharyngeal specimens, and has been validated for use at [facility]. Negative results do not preclude Influenza A/B infections, and should not be used as the sole basis for diagnosis, treatment, or other management decisions. IfInfluenza A/B and RSV PCR results are negative, testing for Parainfluenza virus, Adenovirus and Metapneumovirus is routinely performed for [facility] pediatric oncology and intensive care inpatients, and isavailable on other patients by placing an add-on request. SARS-COV-2 PCR - Normal Coronavirus 2019, PCR Not Detected Narrative: This assay has received FDA Emergency Use Authorization (EUA) and is only authorized for the duration of time that circumstances exist to justify the authorization of the emergency use of in vitro diagnostic tests for the detection of SARS-CoV-2 virus and/or diagnosis of COVID-19 infection under sec tion 564(b)(1) of the Act, 21 U.S.C. 360bbb-3(b)(1). This assay is an in vitro diagnostic nucleic acid amplification test for the qualitative detection of SARS-CoV-2 from nasopharyngeal specimens andhas been validated for use at [facility]. Negative results do not preclude COVID-19 infections and should not be used as the sole basis for diagnosis, treatment, or other management decisions. URINALYSIS WITH REFLEX CULTURE AND MICROSCOPIC Narrative: The following orders were created for panel order Urinalysis with Reflex Culture and Microscopic. Procedure Abnormality Status --------- ------ Urinalysis with Reflex C...[[id number]] Extra Urine Weber Tube[[id number]] Please view results for these tests on the individual orders. URINALYSIS WITH REFLEX CULTURE AND MICROSCOPIC EXTRA URINE WEBER TUBE CT abdomen pelvis w IV contrast Final Result There is several fluid-filled mildly dilated loops of small bowel measuring up to 3.6 cm with transition point in the pelvis as described above. The distal small bowel loops are decompressed. Findings are concerning for developing small bowel obstruction. Mild haziness of the mesentery. No free air or free fluid. Surgical consultation is advised. Splenomegaly measuring 14.6 cm in craniocaudal dimension. Hepatic steatosis. Additional findings as described above. MACRO: None Signed by: Montana Leonardo 12/06/2023 1:34 AM Dictation workstation: [id number] XR chest 1 view Final Result 1. Low lung volumes without evidence of consolidation or pleural effusion. MACRO: None Signed by: Magdaleno Jacobs 12/06/2023 1:00 AM Dictation workstation: [id number] Medical Decision Making Observation Procedure Procedures Ania Uriarte DO 12/06/23 0201 documented in this [facility] Work Phone: [phone]) [phone] Physician Emergency department Note* Ania Uriarte DO - 12/05/2023 11:08 PM EST HPI Chief Complaint Patient presents with Vomiting Pt c/o abdominal pain with vomiting for a couple hours prior to arrival 38-year-old diabetic presents with recurrent nausea and vomiting. Patient states symptoms started about 5 to 6 hours ago. Patient states she has been exposed to influenza and other illnesses on the job. Patient is also complaining of diarrhea. Patient was obviously nauseated when I examined her. Patient denies any cough or congestion right now. Patient is complaining of some generalized weakness and fatigue. Patient will have an IV established and be hydrated. Patient states pain intensified and she was given morphine sulfate 2 mg IV. I did go over the CT findings with the patient indicating that she had an early small bowel obstruction and will be admitted for further inpatient diagnostic s tudies and treatment. History provided by: Patient Rosa Coma Scale Score: 15 Patient History Past Medical History: Diagnosis Date Personal history of transient ischemic attack (TIA), and cerebral infarction without residual deficits History of cerebrovascular accident Past Surgical History: Procedure Laterality Date OTHER SURGICAL HISTORY 02/11/2020 Cholecystectomy No family history on file. Social History Tobacco Use Smoking status: Former Types: Cigarettes Smokeless tobacco: Never Substance Use Topics Alcohol use: Not on file Drug use: Never Physical Exam ED Triage Vitals [12/05/23 2312] Temperature Heart Rate Respirations BP 36.6 C (97.8 F) (!) 125 18 105/70 Pulse Ox Temp src Heart Rate Source Patient Position 98 % -- -- -- BP Location FiO2 (%) -- -- Physical Exam Vitals and nursing note reviewed. Constitutional: General: She is not in acute distress. Appearance: She is well-developed. HENT: Head: Normocephalic and atraumatic. Eyes: Conjunctiva/sclera: Conjunctivae normal. Cardiovascular: Rate and Rhythm: Regular rhythm. Tachycardia present. Heart sounds: No murmur heard. Pulmonary: Effort: Pulmonary effort is normal. No respiratory distress. Breath sounds: Normal breath sounds. Abdominal: Palpations: Abdomen is soft. Tenderness: There is no abdominal tenderness. Comments: Midepigastric tenderness to palpation with some periumbilical involvement. Musculoskeletal: General: No swelling. Cervical back: Neck supple. Skin: General: Skin is warm and dry. Capillary Refill: Capillary refill takes less than 2 seconds. Neurological: Mental Status: She is alert. Psychiatric: Mood and Affect: Mood normal. ED Course & MDM Diagnoses as of 12/06/23 0201 Periumbilical abdominal pain SBO (small bowel obstruction) (CMS/HCC) Labs Reviewed CBC WITH AUTO DIFFERENTIAL - Abnormal Result Value WBC 13.6 (*) nRBC 0.0 RBC 5.43 (*) Hemoglobin 16.1 (*) Hematocrit 47.5 (*) MCV 88 MCH 29.7 MCHC 33.9 RDW 15.4 (*) Platelets 354 Neutrophils % 77.1 Immature Granulocytes %, Automated 0.5 Lymphocytes % 14.9 Monocytes % 5.4 Eosinophils % 1.7 Basophils % 0.4 Neutrophils Absolute 10.45 (*) Immature Granulocytes Absolute, Automated 0.07 Lymphocytes Absolute 2.02 Monocytes Absolute 0.73 Eosinophils Absolute 0.23 Basophils Absolute 0.06 COMPREHENSIVE METABOLIC PANEL - Abnormal Glucose 244 (*) Sodium 133 (*) Potassium 4.4 Chloride 99 Bicarbonate 23 Anion Gap 15 Urea Nitrogen 18 Creatinine 0.80 eGFR >90 Calcium 10.3 Albumin 4.9 Alkaline Phosphatase 77 Total Protein 8.1 AST 19 Bilirubin, Total 1.2 ALT 19 BETA HYDROXYBUTYRATE - Abnormal Beta-Hydroxybutyrate 0.76 (*) Narrative: The beta-hydroxybutyrate test performance characteristics have been validated by [facility]. This test has not been approved by the FDA; however, such approval is not necessary. MAGNESIUM - Normal Magnesium 2.36 LIPASE - Normal Lipase 16 Narrative: Venipuncture immediately after or during the administration of Metamizole may lead to falsely low results. Testing should be performed immediately prior to Metamizole dosing. LACTATE - Normal Lactate 1.1 Narrative: Venipuncture immediately after or during the administration of Metamizole may lead to falsely low results. Testing should be performed immediately prior to Metamizole dosing. INFLUENZA A AND B PCR - Normal Flu A Result Not Detected Flu B Result Not Detected Narrative: This assay is an in vitro diagnostic multiplex nucleic acid amplification test for the detection and discrimination of Influenza A & B from nasopharyngeal specimens, and has been validated for use at [facility]. Negative results do not preclude Influenza A/B infections, and should not be used as the sole basis for diagnosis, treatment, or other management decisions. IfInfluenza A/B and RSV PCR results are negative, testing for Parainfluenza virus, Adenovirus and Metapneumovirus is routinely performed for [facility] pediatric oncology and intensive care inpatients, and isavailable on other patients by placing an add-on request. SARS-COV-2 PCR - Normal Coronavirus 2018, PCR Not Detected Narrative: This assay has received FDA Emergency Use Authorization (EUA) and is only authorized for the duration of time that circumstances exist to justify the authorization of the emergency use of in vitro diagnostic tests for the detection of SARS-CoV-2 virus and/or diagnosis of COVID-19 infection under sec tion 564(b)(1) of the Act, 21 U.S.C. 360bbb-3(b)(1). This assay is an in vitro diagnostic nucleic acid amplification test for the qualitative detection of SARS-CoV-2 from nasopharyngeal specimens andhas been validated for use at [facility]. Negative results do not preclude COVID-19 infections and should not be used as the sole basis for diagnosis, treatment, or other management decisions. URINALYSIS WITH REFLEX CULTURE AND MICROSCOPIC Narrative: The following orders were created for panel order Urinalysis with Reflex Culture and Microscopic. Procedure Abnormality Status --------- ------ Urinalysis with Reflex C...[[id number]] Extra Urine Weber Tube[[id number]] Please view results for these tests on the individual orders. URINALYSIS WITH REFLEX CULTURE AND MICROSCOPIC EXTRA URINE WEBER TUBE CT abdomen pelvis w IV contrast Final Result There is several fluid-filled mildly dilated loops of small bowel measuring up to 3.6 cm with transition point in the pelvis as described above. The distal small bowel loops are decompressed. Findings are concerning for developing small bowel obstruction. Mild haziness of the mesentery. No free air or free fluid. Surgical consultation is advised. Splenomegaly measuring 14.6 cm in craniocaudal dimension. Hepatic steatosis. Additional findings as described above. MACRO: None Signed by: Montana Leonardo 12/06/2023 1:34 AM Dictation workstation: [id number] XR chest 1 view Final Result 1. Low lung volumes without evidence of consolidation or pleural effusion. MACRO: None Signed by: Magdaleno Jacobs 12/06/2023 1:00 AM Dictation workstation: [id number] Medical Decision Making Observation Procedure Procedures Ania Uriarte DO 12/06/23 0201 [facility] Work Phone: [phone] [id number] NoteHNO ID: [id number] Author: JEANETTE MILLER APRN.[facility] Service: ? Author Type: Nurse Practitioner Type: Progress Notes Filed: 11/29/2023 09:06 Note Text: FOLLOW-UP PSYCHIATRIC PROGRESS NOTE Visit Type:Virtual Visit utilizing two-way audio and video for at least a portion of the visit. Consent for virtual visit obtained verbally. Confidentiality limitations with virtual visits reviewed with the patient and guardian, if present, who have accepted the risk verbally prior to proceeding with encounter. I have communicated my name and active licensure. The patient's identity and physical location were verified at the time of this visit. Either the patient or their legal sales representative uniforms has been informed of the risks and benefits of -- and alternatives to -- treatment through a remote evaluation and consents to proceed with the evaluation remotely. Reason for Visit: Outpatient follow-up and safety monitoring of previously prescribed psychiatric medication, psychotherapy or other treatment CHIEF COMPLAINT: Follow up for medication management HPI: Says that since we increased the medication it has done so much better Feels that there is room for a little more improvement but overall it is doable Feels that her sleep is still not as well managed - some nights has a hard time falling asleep but the biggest trouble is staying asleep through the night Wakes in the middle of the night with anxious thoughts about things that she didn't get done during the day or about things that happened during the day Usually will get up and clean when this happens in the middle of the night and typically feels that she cleans to relieve her anxiety Uses trazodone most nights Feels that she still worries a lot. Thinking of other people's opinions Found a new job that I absolutely love but is worried that she is not going to be able to hold the job because of her history of having trouble staying in jobs - describes her anxiety being what has caused her trouble in the past Interval Progress since previous visit: improved VITAL SIGNS: There were no vitals filed for this visit. ROS: PSYCH: See HPI All other systems negative. PATIENT DATA: MILENA-7 MILENA-7 All Questions 07/01/2020 11/22/2022 01/23/2023 07/27/2023 11/29/2023 Nervous, anxious or on edge - 1 2 3 1 Not being able to stop or control worrying - 1 2 - 1 Worrying too much 3 - - 0 1 Trouble relaxing 3 - 2 0 - Restless 3 - - 0 - Annoyed or irritable 3 - 0 0 0 Afraid something awful might happen 3 - 0 0 1 PHQ-9 PHQ-9 Scores 11/22/2022 01/23/2023 02/16/2023 07/27/2023 11/29/2023 Little interest or pleasure in doing things Several days More than half the days Not at all Nearly every day Not at all Feeling down, depressed, or hopeless Several days More than half the days Not at all Nearly every day Not at all Trouble falling or staying asleep, or sleeping too much Several days More than half the days - Nearly every day Several days Feeling tired or having little energy Several days More than half the days - Nearly every day Several days Poor appetite or overeating Several days More than half the days - Nearly every day Several days Feeling bad about yourself - or that you are a failure or have let yourself or your family down Several days More than half the days - Nearly every day Not at all Trouble concentrating on things, such as reading the newspaper or watching television Several days More than half the days - Nearly every day Not at all Moving or speaking so slowly that other people could have noticed. Or the opposite - being so fidgety or restless that you have been moving around a lot more than usual Several days More than half the days - Nearly every day Not at all Thoughts that you would be better off , or of hurting yourself in some way Several days More than half the days - Nearly every day Not at all PHQ-9 Score 9 18 - 27 3 MENTAL STATUS EXAM: CONSTITUTIONAL: Well groomed, Appropriately dressed, Casually dressed, Well developed, Well nourished ORIENTATION: Person, Place, Time and Situation MEMORY: No deficiencies noted CONCENTRATION: Normal MOOD: euthymic AFFECT: Full and appropriate to topic SPEECH : Clear AND distinct LANGUAGE : Normal ASSOCIATIONS: Intact THOUGHT PROCESS : Logical, Coherent, and Rational PROGRESSION : There was no evidence of disturbance in thought perception or progression. FUND OF KNOWLEDGE : Appropriate and Adequate SUICIDE: Denies suicidal thoughts, plan, or intent. HOMICIDE: Denies homicidal thoughts, plan, or intent. Labwork: CBC and Differential: WBC Date Value Ref Range Status 08/23/2022 6.72 3.70 - 11.00 k/uL Final RBC Date Value Ref Range Status 08/23/2022 4.47 3.90 - 5.20 m/uL Final Hematocrit Date Value Ref Range Status 08/23/2022 38.3 36.0 - 46.0 % Final MCV Date Value Ref Range Status 08/23/2022 85.7 80.0 - 100.0 fL Final MCH Date Va (more content not included)...[facility]02-22-2024 History of Present illness Narrative* Jeanette Miller APRN.PUBLIC SAFETY TELECOMMUNICATOR - 11/29/2023 8:37 AM EST Images from the original note were not included. FOLLOW-UP PSYCHIATRIC PROGRESS NOTE Visit Type:Virtual Visit utilizing two-way audio and video for at least a portion of the visit. Consent for virtual visit obtained verbally. Confidentiality limitations with virtual visits reviewed with the patient and guardian, if present, who have accepted the risk verbally prior to proceeding with encounter. I have communicated my name and active licensure. The patient's identity and physical location were verified at the time of this visit. Either the patient or their legal sales representative uniforms has been informed of the risks and benefits of -- and alternatives to -- treatment through a remote evaluation and consents to proceed with the evaluation remotely. Reason for Visit: Outpatient follow-up and safety monitoring of previously prescribed psychiatric medication, psychotherapy or other treatment CHIEF COMPLAINT: Follow up for medication management HPI: Says that since we increased the medication it has done so much better Feels that there is room for a little more improvement but overall it is doable Feels that her sleep is still not as well managed - some nights has a hard time falling asleep but the biggest trouble is staying asleep through the night Wakes in the middle of the night with anxious thoughts about things that she didn't get done duringthe day or about things that happened during the day Usually will get up and clean when this happens in the middle of the night and typically feels thatshe cleans to relieve her anxiety Uses trazodone most nights Feels that she still worries a lot. Thinking of other people's opinions Found a new job that I absolutely love but is worried that she is not going to be able to hold the job because of her history of having trouble staying in jobs - describes her anxiety being what has caused her trouble in the past Interval Progress since previous visit: improved VITAL SIGNS: There were no vitals filed for this visit. ROS: PSYCH: See HPI All other systems negative. PATIENT DATA: MILENA-7 MILENA-7 All Questions 07/01/2020 11/22/2022 01/23/2023 07/27/2023 11/29/2023 Nervous, anxious or on edge - 1 2 3 1 Not being able to stop or control worrying - 1 2 - 1 Worrying too much 3 - - 0 1 Trouble relaxing 3 - 2 0 - Restless 3 - - 0 - Annoyed or irritable 3 - 0 0 0 Afraid something awful might happen 3 - 0 0 1 PHQ-9 PHQ-9 Scores 11/22/2022 01/23/2023 02/16/2023 07/27/2023 11/29/2023 Little interest or pleasure in doing things Several days More than half the days Not at all Nearly every day Not at all Feeling down, depressed, or hopeless Several days More than half the days Not at all Nearly every day Not at all Trouble falling or staying asleep, or sleeping too much Several days More than half the days - Nearly every day Several days Feeling tired or having little energy Several days More than half the days - Nearly every day Several days Poor appetite or overeating Several days More than half the days - Nearly every day Several days Feeling bad about yourself - or that you are a failure or have let yourself or your family down Several days More than half the days - Nearly every day Not at all Trouble concentrating on things, such as reading the newspaper or watching television Several days More than half the days - Nearly every day Not at all Moving or speaking so slowly that other people could have noticed. Or the opposite - being so fidgety or restless that you have been moving around a lot more than usual Several days More than half the days - Nearly every day Not at all Thoughts that you would be better off , or of hurting yourself in some way Several days More than half the days - Nearly every day Not at all PHQ-9 Score 9 18 - 27 3 MENTAL STATUS EXAM: CONSTITUTIONAL: Well groomed, Appropriately dressed, Casually dressed, Well developed, Well nourished ORIENTATION: Person, Place, Time and Situation MEMORY: No deficiencies noted CONCENTRATION: Normal MOOD: euthymic AFFECT: Full and appropriate to topic SPEECH : Clear & distinct LANGUAGE : Normal ASSOCIATIONS: Intact THOUGHT PROCESS : Logical, Coherent, and Rational PROGRESSION : There was no evidence of disturbance in thought perception or progression. FUND OF KNOWLEDGE : Appropriate and Adequate SUICIDE: Denies suicidal thoughts, plan, or intent. HOMICIDE: Denies homicidal thoughts, plan, or intent. Labwork: CBC and Differential: WBC Date Value Ref Range Status 08/23/2022 6.72 3.70 - 11.00 k/uL Final RBC Date Value Ref Range Status 08/23/2022 4.47 3.90 - 5.20 m/uL Final Hematocrit Date Value Ref Range Status 08/23/2022 38.3 36.0 - 46.0 % Final MCV Date Value Ref Range Status 08/23/2022 85.7 80.0 - 100.0 fL Final MCH Date Value Ref Range Status 08/23/2022 29.8 26.0 - 34.0 pg Final MCHC Date Value Ref Range Status 08/23/2022 34.7 30.5 - 36.0 g/dL Final Platelet Count Date Value Ref Range Status 08/23/2022 221 150 - 400 k/uL Final MPV Date Value Ref Range Status 08/23/2022 9.9 9.0 - 12.7 fL Final Comprehensive Metabolic Panel: BUN Date Value Ref Range Status 08/23/2022 14 7 - 21 mg/dL Final Creatinine Date Value Ref Range Status 08/23/2022 0.68 0.58 - 0.96 mg/dL Final Sodium Date Value Ref Range Status 08/23/2022 134 (L) 136 - 144 mmol/L Final Potassium Date Value Ref Range Status 08/23/2022 4.0 3.7 - 5.1 mmol/L Final CO2 Date Value Ref Range Status 08/23/2022 26 22 - 30 mmol/L Final Albumin Date Value Ref Range Status 08/07/2021 3.5 (L) 3.9 - 4.9 g/dL Final Comment: Rechecked ALT Date Value Ref Range Status 08/07/2021 18 7 - 38 U/L Final AST Date Value Ref Range Status 08/07/2021 21 13 - 35 U/L Final Gamma-Glutamyltransferase (GGT), Serum: No results found for: GGT Vitamin B12: No components found for: [id number] Vitamin D, Total: No results found for: VITD Thyroid Stimulating Hormone (TSH): TSH Date Value Ref Range Status 08/20/2022 3.040 0.270 - 4.200 mIU/L Final Comment: If the patient is , TSH reference range varies by gestational period: First Trimester (weeks 9-12): 0.180-2.990 mIU/L Second Trimester: 0.110-3.980 mIU/L Third Trimester: 0.480-4.710 mIU/L Irving Simpson et al. A Practical Approach for the Verifications and Determination of Site- and Trimester-Specific Reference Intervals for Thyroid Function tests in . Thyroid, 2019:29:3:412-420.Rodríguez [address] et al. 2017 Guidelines of the [place] [employer] for the Diagnosis and Management of Thyroid Disease during and the . Thyroid, 2017:27:3:315-389. Hemoglobin A1C: No results found for: HGBA1C Lipid Panel: Cholesterol, Total Date Value Ref Range Status 02/16/2023 278 (H) <200 mg/dL Final Comment: <200 mg/dL, Desirable 200-239 mg/dL, Borderline high >239 mg/dL, High HDL Cholesterol Date Value Ref Range Status 02/16/2023 35 (L) >39 mg/dL Final Comment: 40-59 mg/dL, Acceptable >59 mg/dL, High: Negative risk factor for coronary heart disease <40 mg/dL, Low: Positive risk factor for coronary heart disease LDL Cholesterol Date Value Ref Range Status 08/13/2021 128 (H) <100 mg/dL Final Comment: <100 mg/dL, Optimal 100-129 mg/dL, Near optimal/above optimal 130-159 mg/dL, Borderline high 160-189 mg/dL, High >189 mg/dL, Very high Secondary prevention optimal LDL Cholesterol levels are recommended to be < 70 mg/dL DATA REVIEWED: Electronic medical record DIAGNOSIS: PRIMARY: Anxiety Disorder Posttraumatic Stress Disorder - Chronic TREATMENT PLAN: Reviewed symptoms, medications and their side effects, labs, and progress being made. Discussed life situations and coping skills Support and encouragement provided PLAN AND FOLLOW UP: Medications: Continue: --Effexor XR 150 mg once daily Change: --trazodone 25-50 mg to 100-200 mg once daily at bedtime as needed for sleep Other: --encouraged to start therapy - declines at this time --discussed talking with her HR department to see if there are options for accommodations and/or FMLA Next appointment: --Schedule in 4-6 weeks or sooner if needed --To call the office call [phone] option 3 (for any questions or concerns) or you may [facility] at [phone] --Message in [employer] any questions or concerns. For those experiencing a suicidal crisis: --call the National Suicide Prevention Lifeline at 988 (573.428.7887) --text the Crisis Text Line (text HOME to 986490) --call 784 and let them know you are having a mental health crisis or go to your nearest Emergency Room for stabilization. --You can also call [employer] at [phone]. Discussed side effects including any black box warnings, risks and benefits of medications, and alternatives. MEDICATION CHANGES: See above for changes Follow Up: 4-6 weeks I spent a total of 28 minutes on the date of the service which included preparing to see the patient, [id number] patient care, completing clinical documentation, performing a medically appropriate examination, counseling and educating the patient/family/caregiver, and ordering medications, tests,or procedures. ADD ON PSYCHOTHERAPY CODE : No SIGNATURE: Jeanette Miller APRN.CNP PATIENT NAME: Reinaldo Warren DATE: 11/29/2023 TIME: 8:37 AM [facility] Miscellaneous Notes* Telephone Encounter - Jeanette Miller APRN.CNP - 11/09/2023 10:56 AM EST Spoke with patient who has been having increased anxiety, panic attacks, and trouble sleeping. Discussed importance of staying on all medications as prescribed as she stopped the trazodone and her blood pressure medications. Reports continuing to take Effexor and requests increase in dose. Increased to 150 mg once daily and to send message if blood pressure does not stay controlled with blood pressure medications - is aware that she needs to continue to take those as recommended by PCP/cardiology. Will also restart trazodone. Has upcoming appointment on 11/29/23. * Telephone Encounter - Agnieszka Hughes - 11/08/2023 9:10 AM EST Patient called and wanted to make an appointment with you. I gave her the 1st available one. Patient stated that's to far away and she needed to see you sooner. I explained I can add her to the wait list so if someone cancels we can call her. She then stated she need to talk to you because she was in the hospital yesterday for a heart attack and she thinks it was caused by her anxiety. She asked for a return call. Thank you Agnieszka Hughes November 08, 2023 9:13 AM documented [facility]02-01-2024 Miscellaneous Notes* Telephone Encounter - Angie Ponce - 11/08/2023 8:49 AM EST The following medication(s) is being requested: LAST APPT - 07-27-23 No show 09-06-23 NEXT APPT - None scheduled Requested Prescriptions Pending Prescriptions Disp Refills venlafaxine ER (EFFEXOR XR) 75 mg 24 hr capsule [Pharmacy Med Name: VENLAFAXINE HCL ER 75 MG CAP] 90 capsule 0 Sig: TAKE 1 CAPSULE BY MOUTH ONCE DAILY. AFTER FINISHING 1 WEEK OF 37.5 MG DAILY Refused Prescriptions Disp Refills busPIRone (BUSPAR) 10 mg tablet [Pharmacy Med Name: BUSPIRONE HCL 10 MG TABLET] 270 tablet 0 Sig: take 1 tablet by mouth three times a day REXULTI 1 mg tablet [Pharmacy Med Name: REXULTI 1 MG TABLET] 135 tablet 0 Sig: take 1 and 1/2 tablets by mouth once daily Please process accordingly Angie Ponce Rexulti was discontinued by provider on 07-27-23. Buspirone was discontinued by provider on 06-09-23. Please contact provider to discuss. Angie Ponce November 08, 2023 8:59 AM documented in this encounterF[facility]12-11-2023 Miscellaneous Notes* Telephone Encounter - Jeanette Miller APRN.CNP - 09/17/2023 3:42 PM EST Patient needs appointment before any refills past today are given as there is currently no scheduled upcoming appointment * Telephone Encounter - Angie Ponce - 09/17/2023 3:15 PM EST Pharmacy requests 90 day supply. The following medication(s) is being requested: LAST APPT - 07.27.23 No show 09.06.23 NEXT APPT - None scheduled Requested Prescriptions Pending Prescriptions Disp Refills venlafaxine ER (EFFEXOR XR) 75 mg 24 hr capsule 90 capsule 0 Sig: Take 1 capsule by mouth once daily. After finishing 1 week of 37.5 mg daily Please process accordingly Angie Ponce . documented in this encounterFlower Hospital12-11-2023 Miscellaneous Notes* Telephone Encounter - Lorrie Harrison - 09/17/2023 9:32 AM EST Both Paroxetine (Paxil) 20 mg /40 mg has been Discontinued, patient needs to discuss with Provider. documented in this encounterFlower Hospital11-09-2023 Miscellaneous Notes* Telephone Encounter - Agnieszka Hughes - 08/16/2023 8:42 AM EST Provider renewed Medications on 07/27/2023 for 30 capsules and 1 refill. Records indicate pharmacy has refills on file. E-Prescribing Status: Receipt confirmed by pharmacy (07/27/2023 8:58 AM EDT) Agnieszka Hughes August 16, 2023 8:49 AM documented in this encounterFlower Hospital10-20-2023 History of Present illness Narrative* Jeanette Miller APRN.PUBLIC SAFETY TELECOMMUNICATOR - 07/27/2023 8:36 AM EDT Images from the original note were not included. FOLLOW-UP PSYCHIATRIC PROGRESS NOTE Visit Type:Virtual Visit utilizing two-way audio and video for at least a portion of the visit. Consent for virtual visit obtained verbally. Confidentiality limitations with virtual visits reviewed with the patient and guardian, if present, who have accepted the risk verbally prior to proceeding with encounter. I have communicated my name and active licensure. The patient's identity and physical location were verified at the time of this visit. Either the patient or their legal sales representative uniforms has been informed of the risks and benefits of -- and alternatives to -- treatment through a remote evaluation and consents to proceed with the evaluation remotely. Reason for Visit: Outpatient follow-up and safety monitoring of previously prescribed psychiatric medication, psychotherapy or other treatment CHIEF COMPLAINT: Follow up for medication management HPI: Last seen 01/23/23 and then on 04/04/23 she sent a message stating: Should we get this figure out andget things working correctly I am not taking any of my medicine I'm not going to be any appointments anymore murphy all I do is crank up bills crank up bills crank up bills I'm sick of you guys you're not truly helping me so not I'm done Says that she stopped her medications because she wanted to try without them because of cost Since she has been having more ups and downs which are about equal Feels that her first 3 weeks without being on medication she was doing well and then about the 4th week she feels that things have been going worse Feels that her good days are happy go adilia On her other days she feels anxious and confused Has since returned to trazodone because she was having days where she was staying up all night and it has been helpful with having her get back to a regular sleep pattern Says that she doesn't want to return to all of her medications but would like to return back to an antidepressant and continue with trazodone Interval Progress since previous visit: same VITAL SIGNS: There were no vitals filed for this visit. ROS: PSYCH: See HPI All other systems negative. PATIENT DATA: MILENA-7 MILENA-7 All Questions 04/23/2020 07/01/2020 11/22/2022 01/23/2023 07/27/2023 Nervous, anxious or on edge 3 - 1 2 3 Not being able to stop or control worrying 3 - 1 2 - Worrying too much 3 3 - - 0 Trouble relaxing 3 3 - 2 0 Restless 3 3 - - 0 Annoyed or irritable 1 3 - 0 0 Afraid something awful might happen 3 3 - 0 0 MILENA-7 Score 19 - - - - PHQ-9 PHQ-9 Scores 02/16/2021 11/22/2022 01/23/2023 02/16/2023 07/27/2023 Little interest or pleasure in doing things Several days Several days More than half the days Not at all Nearly every day Feeling down, depressed, or hopeless Several days Several days More than half the days Not at all Nearly every day Trouble falling or staying asleep, or sleeping too much More than half the days Several days More than half the days - Nearly every day Feeling tired or having little energy Several days Several days More than half the days - Nearly every day Poor appetite or overeating Several days Several days More than half the days - Nearly every day Feeling bad about yourself - or that you are a failure or have let yourself or your family down Notat all Several days More than half the days - Nearly every day Trouble concentrating on things, such as reading the newspaper or watching television Not at all Several days More than half the days - Nearly every day Moving or speaking so slowly that other people could have noticed. Or the opposite - being so fidgety or restless that you have been moving around a lot more than usual Not at all Several days More than half the days - Nearly every day Thoughts that you would be better off , or of hurting yourself in some way Not at all Several days More than half the days - Nearly every day PHQ-9 Score 6 9 18 - 27 MENTAL STATUS EXAM: CONSTITUTIONAL: Well groomed, Appropriately dressed, Casually dressed, Well developed, Well nourished ORIENTATION: Person, Place, Time and Situation MEMORY: No deficiencies noted CONCENTRATION: Normal MOOD: euthymic AFFECT: Blunted SPEECH : Clear & distinct LANGUAGE : Normal ASSOCIATIONS: Intact THOUGHT PROCESS : Logical, Coherent, and Rational PROGRESSION : There was no evidence of disturbance in thought perception or progression. FUND OF KNOWLEDGE : Appropriate and Adequate SUICIDE: Denies suicidal thoughts, plan, or intent. HOMICIDE: Denies homicidal thoughts, plan, or intent. Labwork: CBC and Differential: WBC Date Value Ref Range Status 08/23/2022 6.72 3.70 - 11.00 k/uL Final RBC Date Value Ref Range Status 08/23/2022 4.47 3.90 - 5.20 m/uL Final Hematocrit Date Value Ref Range Status 08/23/2022 38.3 36.0 - 46.0 % Final MCV Date Value Ref Range Status 08/23/2022 85.7 80.0 - 100.0 fL Final MCH Date Value Ref Range Status 08/23/2022 29.8 26.0 - 34.0 pg Final MCHC Date Value Ref Range Status 08/23/2022 34.7 30.5 - 36.0 g/dL Final Platelet Count Date Value Ref Range Status 08/23/2022 221 150 - 400 k/uL Final MPV Date Value Ref Range Status 08/23/2022 9.9 9.0 - 12.7 fL Final Comprehensive Metabolic Panel: BUN Date Value Ref Range Status 08/23/2022 14 7 - 21 mg/dL Final Creatinine Date Value Ref Range Status 08/23/2022 0.68 0.58 - 0.96 mg/dL Final Sodium Date Value Ref Range Status 08/23/2022 134 (L) 136 - 144 mmol/L Final Potassium Date Value Ref Range Status 08/23/2022 4.0 3.7 - 5.1 mmol/L Final CO2 Date Value Ref Range Status 08/23/2022 26 22 - 30 mmol/L Final Albumin Date Value Ref Range Status 08/07/2021 3.5 (L) 3.9 - 4.9 g/dL Final Comment: Rechecked ALT Date Value Ref Range Status 08/07/2021 18 7 - 38 U/L Final AST Date Value Ref Range Status 08/07/2021 21 13 - 35 U/L Final Gamma-Glutamyltransferase (GGT), Serum: No results found for: GGT Vitamin B12: No components found for: [id number] Vitamin D, Total: No results found for: VITD Thyroid Stimulating Hormone (TSH): TSH Date Value Ref Range Status 08/20/2022 3.040 0.270 - 4.200 mIU/L Final Comment: If the patient is , TSH reference range varies by gestational period: First Trimester (weeks 9-12): 0.180-2.990 mIU/L Second Trimester: 0.110-3.980 mIU/L Third Trimester: 0.480-4.710 mIU/L Irving Simpson et al. A Practical Approach for the Verifications and Determination of Site- and Trimester-Specific Reference Intervals for Thyroid Function tests in . Thyroid, 2019:29:3:412-420.Rodríguez Way et al. 2017 Guidelines of the [place] [employer] for the Diagnosis and Management of Thyroid Disease during and the . Thyroid, 2017:27:3:315-389. Hemoglobin A1C: No results found for: HGBA1C Lipid Panel: Cholesterol, Total Date Value Ref Range Status 02/16/2023 278 (H) <200 mg/dL Final Comment: <200 mg/dL, Desirable 200-239 mg/dL, Borderline high >239 mg/dL, High HDL Cholesterol Date Value Ref Range Status 02/16/2023 35 (L) >39 mg/dL Final Comment: 40-59 mg/dL, Acceptable >59 mg/dL, High: Negative risk factor for coronary heart disease <40 mg/dL, Low: Positive risk factor for coronary heart disease LDL Cholesterol Date Value Ref Range Status 08/13/2021 128 (H) <100 mg/dL Final Comment: <100 mg/dL, Optimal 100-129 mg/dL, Near optimal/above optimal 130-159 mg/dL, Borderline high 160-189 mg/dL, High >189 mg/dL, Very high Secondary prevention optimal LDL Cholesterol levels are recommended to be < 70 mg/dL DATA REVIEWED: Electronic medical record DIAGNOSIS: PRIMARY: Anxiety Disorder Posttraumatic Stress Disorder - Chronic TREATMENT PLAN: Reviewed symptoms, medications and their side effects, labs, and progress being made. Discussed life situations and coping skills Support and encouragement provided PLAN AND FOLLOW UP: Medications: Continue: --trazodone 25-50 mg once daily at bedtime as needed for sleep Start: --Effexor XR 37.5 mg once daily for 1 week then increase to 75 mg once daily thereafter Other: --encouraged to start therapy Next appointment: --Schedule in 6 weeks or sooner if needed --To call the office call [phone] option 3 (for any questions or concerns) or [facility] may [facility] at [phone] --Message in GENBANDhart any questions or concerns. For those experiencing a suicidal crisis: --call the National Suicide Prevention Lifeline at 952 (647-500-1352) --text the Crisis Text Line (text HOME to 420975) --call 531 and let them know you are having a mental health crisis or go to your nearest Emergency Room for stabilization. --You can also call Mobile Crisis at [phone]. Discussed side effects including any black box warnings, risks and benefits of medications, and alternatives. MEDICATION CHANGES: See above for changes Follow Up: 6 weeks I spent a total of 27 minutes on the date of the service which included preparing to see the patient, [id number] patient care, completing clinical documentation, performing a medically appropriate examination, counseling and educating the patient/family/caregiver, and ordering medications, tests,or procedures. ADD ON PSYCHOTHERAPY CODE : No SIGNATURE: Jeanette Miller APRN.CNP PATIENT NAME: Reinaldo Warren DATE: 07/27/2023 TIME: 8:36 AM [facility] Emergency department Note * Emilia Lucas RN - 07/11/2023 12:40 PM EDT Brought to ED per [employer]FD squad from grocery store with report of feeling shaky and dizzy. She grabbed a drink at the store thinking her blood sugar was low. Staff assisted her to sit down in a chair. She did not fall nor have any injuries. She denies any LOC or pain. E[facility] done at [facility] Work Phone: 1(212) 279-458910-04-2023 Emergency department Note* Elidia Sonia Hamilton, DO - 07/11/2023 12:40 PM EDT HPI No chief complaint on file. Near syncope. This 38-year-old white female presents to the ED via EMS from a store after she felt very weak and shaky and sent down on the ground. She states that she thought perhaps her blood sugarwas low and what to drink started to drink orange juice prior to EMS arrival. She states that she was treated with further sugary drinks by EMS and initial blood sugar was 236. She does admit to recent illness in which she had nausea and vomiting which earlier by the family had. Today she felt veryshaky, hot and sweaty prior to sitting down. She states that she took her insulin last night as sheusually does and has not had any recent issues with respect to hypoglycemia. She states that she does feel better currently after drinking the drinks. History provided by: Patient and spouse ed special education teacher used: No No data recorded Patient History Past Medical History: Diagnosis Date Personal history of transient ischemic attack (TIA), and cerebral infarction without residual deficits History of cerebrovascular accident Past Surgical History: Procedure Laterality Date OTHER SURGICAL HISTORY 02/11/2020 Cholecystectomy No family history on file. Social History Tobacco Use Smoking status: Not on file Smokeless tobacco: Not on file Substance Use Topics Alcohol use: Not on file Drug use: Not on file Physical Exam ED Triage Vitals [07/11/23 1240] Temp Heart Rate Resp BP 36.7 C (98 F) 105 16 (!) 153/110 SpO2 Temp Source Heart Rate Source Patient Position 98 % Tympanic -- -- BP Location FiO2 (%) -- -- Physical Exam Constitutional: General: She is awake. Appearance: Normal appearance. She is overweight. HENT: Head: Normocephalic and atraumatic. Nose: Nose normal. Mouth/Throat: Lips: [place]. Mouth: Mucous membranes are moist. Eyes: General: Lids are normal. Pupils: Pupils are equal, round, and reactive to light. Cardiovascular: Rate and Rhythm: Tachycardia present. Pulses: Normal pulses. Heart sounds: Normal heart sounds. Pulmonary: Effort: Pulmonary effort is normal. Breath sounds: Normal breath sounds. Abdominal: General: Abdomen is protuberant. Bowel sounds are normal. Palpations: Abdomen is soft. Musculoskeletal: Cervical back: Full passive range of motion without pain, normal range of motion and neck supple. Skin: General: Skin is warm. Capillary Refill: Capillary refill takes less than 2 seconds. Neurological: General: No focal deficit present. Mental Status: She is alert. Cranial Nerves: Cranial nerves 2-12 are intact. Sensory: Sensation is intact. Motor: Motor function is intact. Psychiatric: Attention and Perception: Attention normal. Mood and Affect: Mood and affect normal. Speech: Speech normal. Behavior: Behavior normal. Behavior is cooperative. Thought Content: Thought content normal. Labs Reviewed CBC WITH AUTO DIFFERENTIAL - Abnormal Result Value WBC 10.1 nRBC 0.0 RBC 4.21 Hemoglobin 12.7 Hematocrit 38.0 MCV 90 MCH 30.2 MCHC 33.4 RDW 14.6 (*) Platelets 244 MPV 10.4 Neutrophils % 77.7 Immature Granulocytes %, Automated 0.9 Lymphocytes % 15.4 Monocytes % 4.9 Eosinophils % 0.6 Basophils % 0.5 Neutrophils Absolute 7.81 (*) Immature Granulocytes Absolute, Automated 0.09 Lymphocytes Absolute 1.55 Monocytes Absolute 0.49 Eosinophils Absolute 0.06 Basophils Absolute 0.05 COMPREHENSIVE METABOLIC PANEL - Abnormal Glucose 244 (*) Sodium 133 (*) Potassium 4.0 Chloride 100 Bicarbonate 23 Anion Gap 14 Urea Nitrogen 7 Creatinine 0.72 eGFR >90 Calcium 9.6 Albumin 4.3 Alkaline Phosphatase 64 Total Protein 6.7 AST 14 Bilirubin, Total 0.8 ALT 16 URINALYSIS WITH REFLEX MICROSCOPIC AND CULTURE - Abnormal Color, Urine Yellow Appearance, Urine Hazy (*) Specific [place], Urine 1.023 pH, Urine 5.0 Protein, Urine 30 (1+) (*) Glucose, Urine >=500 (3+) (*) Blood, Urine NEGATIVE Ketones, Urine 5 (TRACE) (*) Bilirubin, Urine NEGATIVE Urobilinogen, Urine <2.0 Nitrite, Urine POSITIVE (*) Leukocyte Esterase, Urine MODERATE (2+) (*) URINALYSIS MICROSCOPIC ONLY - Abnormal WBC, Urine 11-20 (*) RBC, Urine 1-2 Squamous Epithelial Cells, Urine NONE Bacteria, Urine 1+ (*) Mucus, Urine 1+ URINE CULTURE URINALYSIS WITH REFLEX MICROSCOPIC AND CULTURE Narrative: The following orders were created for panel order Urinalysis with Reflex Microscopic and Culture. Procedure Abnormality Status --------- ------ Urinalysis with Reflex M...[[id number]] Abnormal Final result Extra Urine Weber Tube[[id number]] In process Please view results for these tests on the individual orders. EXTRA URINE WEBER TUBE ED Course & MDM Diagnoses as of 07/11/23 1505 UTI (urinary tract infection), uncomplicated Syncope, near Medical Decision Making Patient was seen and evaluated after near syncopal episode. She states that she was at a store for very weak and shaky and sat down onto the ground. She denies any true syncope. She believes her blood sugar was low and started to drink orange juice and EMS on arrival better or juice as well. Her blood sugar per paramedics was 236. The patient had a work-up for her near syncopal episode with bloodwork orthostasis and IV fluids. Her sugar was 233 sodium was slightly low at 133 most likely secondary to the hyperglycemia. The rest of CMP was normal. The CBC was normal. Urinalysis revealed evidence of urinary tract infection the patient has been treated with IV fluids and was treated with IV Rocephin prior to being discharged home with prescription for Keflex. Urine culture was ordered and pending at discharge. Amount and/or Complexity of Data Reviewed ECG/medicine tests: Details: EKG today was interpreted by myself at 12:42 PM reveals sinus tachycardia with evidence ofLVH and no other acute ST or T wave changes. The heart rate is 101 bpm. The AK interval is 154 ms. The QRS duration 76 ms. The QTc is 451 ms. [place] is 1 degree Procedure Procedures Elidia Hamilton DO 07/13/23 0838 * Emilia Lucas RN - 07/11/2023 12:40 PM EDT Brought to ED per AFD squad from grocery store with report of feeling shaky and dizzy. She grabbed a drink at the store thinking her blood sugar was low. Staff assisted her to sit down in a chair. She did not fall nor have any injuries. She denies any LOC or pain. E[facility] at [facility] Work Phone: 1(601) 817-317510-04-2023 Emergency department Triage note* Emilia Lucas RN - 07/11/2023 12:40 PM EDT Brought to ED per AFD squad from grocery store with report of feeling shaky and dizzy. She grabbed a drink at the store thinking her blood sugar was low. Staff assisted her to sit down in a chair. She did not fall nor have any injuries. She denies any LOC or pain. EKG done at [facility] Work Phone: 1(772) 133-874010-04-2023 Physician Emergency department Note* Elidia Hamilton DO - 07/11/2023 12:40 PM EDT HPI No chief complaint on file. Near syncope. This 38-year-old white female presents to the ED via EMS from a store after she felt very weak and shaky and sent down on the ground. She states that she thought perhaps her blood sugarwas low and what to drink started to drink orange juice prior to EMS arrival. She states that she was treated with further sugary drinks by EMS and initial blood sugar was 236. She does admit to recent illness in which she had nausea and vomiting which earlier by the family had. Today she felt veryshaky, hot and sweaty prior to sitting down. She states that she took her insulin last night as sheusually does and has not had any recent issues with respect to hypoglycemia. She states that she does feel better currently after drinking the drinks. History provided by: Patient and spouse ed special education teacher used: No No data recorded Patient History Past Medical History: Diagnosis Date Personal history of transient ischemic attack (TIA), and cerebral infarction without residual deficits History of cerebrovascular accident Past Surgical History: Procedure Laterality Date OTHER SURGICAL HISTORY 02/11/2020 Cholecystectomy No family history on file. Social History Tobacco Use Smoking status: Not on file Smokeless tobacco: Not on file Substance Use Topics Alcohol use: Not on file Drug use: Not on file Physical Exam ED Triage Vitals [07/11/23 1240] Temp Heart Rate Resp BP 36.7 C (98 F) 105 16 (!) 153/110 SpO2 Temp Source Heart Rate Source Patient Position 98 % Tympanic -- -- BP Location FiO2 (%) -- -- Physical Exam Constitutional: General: She is awake. Appearance: Normal appearance. She is overweight. HENT: Head: Normocephalic and atraumatic. Nose: Nose normal. Mouth/Throat: Lips: [place]. Mouth: Mucous membranes are moist. Eyes: General: Lids are normal. Pupils: Pupils are equal, round, and reactive to light. Cardiovascular: Rate and Rhythm: Tachycardia present. Pulses: Normal pulses. Heart sounds: Normal heart sounds. Pulmonary: Effort: Pulmonary effort is normal. Breath sounds: Normal breath sounds. Abdominal: General: Abdomen is protuberant. Bowel sounds are normal. Palpations: Abdomen is soft. Musculoskeletal: Cervical back: Full passive range of motion without pain, normal range of motion and neck supple. Skin: General: Skin is warm. Capillary Refill: Capillary refill takes less than 2 seconds. Neurological: General: No focal deficit present. Mental Status: She is alert. Cranial Nerves: Cranial nerves 2-12 are intact. Sensory: Sensation is intact. Motor: Motor function is intact. Psychiatric: Attention and Perception: Attention normal. Mood and Affect: Mood and affect normal. Speech: Speech normal. Behavior: Behavior normal. Behavior is cooperative. Thought Content: Thought content normal. Labs Reviewed CBC WITH AUTO DIFFERENTIAL - Abnormal Result Value WBC 10.1 nRBC 0.0 RBC 4.21 Hemoglobin 12.7 Hematocrit 38.0 MCV 90 MCH 30.2 MCHC 33.4 RDW 14.6 (*) Platelets 244 MPV 10.4 Neutrophils % 77.7 Immature Granulocytes %, Automated 0.9 Lymphocytes % 15.4 Monocytes % 4.9 Eosinophils % 0.6 Basophils % 0.5 Neutrophils Absolute 7.81 (*) Immature Granulocytes Absolute, Automated 0.09 Lymphocytes Absolute 1.55 Monocytes Absolute 0.49 Eosinophils Absolute 0.06 Basophils Absolute 0.05 COMPREHENSIVE METABOLIC PANEL - Abnormal Glucose 244 (*) Sodium 133 (*) Potassium 4.0 Chloride 100 Bicarbonate 23 Anion Gap 14 Urea Nitrogen 7 Creatinine 0.72 eGFR >90 Calcium 9.6 Albumin 4.3 Alkaline Phosphatase 64 Total Protein 6.7 AST 14 Bilirubin, Total 0.8 ALT 16 URINALYSIS WITH REFLEX MICROSCOPIC AND CULTURE - Abnormal Color, Urine Yellow Appearance, Urine Hazy (*) Specific [place], Urine 1.023 pH, Urine 5.0 Protein, Urine 30 (1+) (*) Glucose, Urine >=500 (3+) (*) Blood, Urine NEGATIVE Ketones, Urine 5 (TRACE) (*) Bilirubin, Urine NEGATIVE Urobilinogen, Urine <2.0 Nitrite, Urine POSITIVE (*) Leukocyte Esterase, Urine MODERATE (2+) (*) URINALYSIS MICROSCOPIC ONLY - Abnormal WBC, Urine 11-20 (*) RBC, Urine 1-2 Squamous Epithelial Cells, Urine NONE Bacteria, Urine 1+ (*) Mucus, Urine 1+ URINE CULTURE URINALYSIS WITH REFLEX MICROSCOPIC AND CULTURE Narrative: The following orders were created for panel order Urinalysis with Reflex Microscopic and Culture. Procedure Abnormality Status --------- ------ Urinalysis with Reflex M...[[id number]] Abnormal Final result Extra Urine Weber Tube[[id number]] In process Please view results for these tests on the individual orders. EXTRA URINE WEBER TUBE ED Course & MDM Diagnoses as of 07/11/23 1505 UTI (urinary tract infection), uncomplicated Syncope, near Medical Decision Making Patient was seen and evaluated after near syncopal episode. She states that she was at a store for very weak and shaky and sat down onto the ground. She denies any true syncope. She believes her blood sugar was low and started to drink orange juice and EMS on arrival better or juice as well. Her blood sugar per paramedics was 236. The patient had a work-up for her near syncopal episode with bloodwork orthostasis and IV fluids. Her sugar was 233 sodium was slightly low at 133 most likely secondary to the hyperglycemia. The rest of CMP was normal. The CBC was normal. Urinalysis revealed evidence of urinary tract infection the patient has been treated with IV fluids and was treated with IV Rocephin prior to being discharged home with prescription for Keflex. Urine culture was ordered and pending at discharge. Amount and/or Complexity of Data Reviewed ECG/medicine tests: Details: EKG today was interpreted by myself at 12:42 PM reveals sinus tachycardia with evidence ofLVH and no other acute ST or T wave changes. The heart rate is 101 bpm. The AK interval is 154 ms. The QRS duration 76 ms. The QTc is 451 ms. [place] is 1 degree Procedure Procedures Elidia Hamilton DO 07/13/23837 [facility] Work Phone: 1(176) 744-793008-23-2023 Instructions* Patient Instructions* Nilda Lauren MD - 05/30/2023 3:34 PM EDT - Take Basaglar 25 units (weber pen) once a day at bedtime - Stop Fiasp (dark blue pen) - Restart Trulicity 1.5 mg once a week - Restart the freestyle everardo - Follow up in a month video visit - Call [phone] to schedule with a neurologist [facility] History of Present illness Narrative* Nilda Lauren MD - 05/30/2023 3:00 PM EDT ENDOCRINOLOGY CLINIC NOTE Ms. Warren is a 38 year old female with history of HTN, T2DM, seizure disorder, syncope, migrainepresented for follow up. HPI In 07/2021, she presented to the hospital after a syncopal event. Her labs on admission showed NA 128, K4.8, creatinine 1.23, glucose 554, AG 14, pH 7.31 and no ketones in the urine. Glucose levels gradually improved after starting subcutaneous insulin. Ms. Warren stated that she had gestational diabetes during her last , the last one beingin 2012. She received Metformin and insulin at that time. Between 2012 and 2018, she did not have diabetes. However, in 2019 she started to have polyuria and polydipsia and she was diagnosed with type 2 diabetes. She was not aware if autoimmune diabetes antibodies have been checked. The plan was todischarge her on metformin and insulin, but the patient left AMA and was prescribed Basaglar She could not tolerate Metformin due to diarrhea. We started her on Trulicity in 08/2021. Given therelatively young age of onset, I checked her type I autoimmune diabetes antibodies. She had negative insulin antibody, MILENA 65, islet cell antibody and IAA. Her C-peptide was 5.3 In 2020, she did do very well on Trulicity and Basaglar and her A1c was 5%. However, she called ouroffice because she was having persistent significant hyperglycemia and went to the emergency room. When I spoke with the patient on the phone, she stated that she stopped taking the insulin and Trulicity because I thought I am a superwoman and can control the diabetes without medications We restarted basal prandial insulin and she was planning to restart Trulicity. The patient's last follow-up visit was in 02/2022. She stopped Trulicity because of cost. She stopped all insulin but restarted few days ago. She took Basaglar 3 times a day and the Fiasp once a day inadvertently. She went to the ER few days ago because of anxiety and shakiness and she was instructed on the proper intake of insulin A1c: 08/05/21 10:02 11/18/21 16:04 08/20/22 20:34 02/16/23 12:40 Hemoglobin A1C 8.2 (H) 6.6 (H) 7.2 (H) Hemoglobin A1C (POCT) 5.0 Current regimen: Basaglar 30 units in the morning Fiasp 8 with meals Home glucose monitoring: She resrated checking the last few days. She Hypoglycemia: None recently Diet: She she eats small frequent meals throughout the day. She also mentioned that she drinks regular sodas Physical activity: No structured physical activity Complications: Retinopathy: None Nephropathy: Normal GFR in 08/2022, no significant albuminuria in 02/2023 Neuropathy: No suggestive symptoms CVS: lipid profile 08/2022: LDL 171, TG 517. She was started on rosuvastatin 5 mg Plans: None. She had tubal ligation PAST MEDICAL HISTORY Diagnosis Date Diabetes mellitus of mother, complicating , childbirth, or the puerperium, unspecified as to episode of care(468.00) Gestational diabetes Dysthymic disorder Depression (non-psychotic), Essential hypertension, benign Hemorrhoids 05/19/2011 History of gestational diabetes 10/31/2012 10/31/2012Patient had gestational diabetes with her last 2 pregnancies. She was on glyburide with the that she delivered in 2009. She was insulin- dependent her last . She deliveredboth of those pregnancies in [place]. Patient is obese. 3 hour G TT ordered by Dr. Jennings. Migraine, unspecified, with intractable migraine, so stated, without mention of status migrainosus Migraine Nipple discharge 02/19/2016 PMH - PAST MEDICAL HISTORY OF DYSLEXIA PMH - PAST MEDICAL HISTORY OF 1988 FRACTURED LEFT LEG PMH - PAST MEDICAL HISTORY OF 01/2007 HOSPITALIZED FOR RUPTURED OVARIAN CYST Psychogenic nonepileptic seizure 10/20/2022 SPINAL HEADACHE WITH DELIVERIES IN 2009&2011 Type 2 diabetes mellitus (HCC) Unspecified asthma(493.90) PAST SURGICAL HISTORY Procedure Laterality Date DELIVERY ONLY 2008,10/14/2009 , low cervicalx2 DELIVERY ONLY 06/06/2013 , low transverse COLONOSCOPY FLX DX W/COLLJ SPEC WHEN PFRMD 11/28/2013 Colonoscopy ESOPHAGOGASTRODUODENOSCOPY TRANSORAL DIAGNOSTIC 11/28/2013 EGD HYSTEROSCOPY BX W/WO D&C 08/14/2019 hysteroscoy D&C w/ mirena insertion LIG/TRNSXJ FLP TUBE ABDL/VAG APPR UNI/BI 06/06/2013 Tubal ligation REMOVAL OF GALLBLADDER 10/07/2018 [place] REPAIR UMBILICAL HERNIA 06/20/[address] medium mesh [facility] FAMILY HISTORY Problem Relation Age of Onset Hypertension Father Diabetes Father Lipids Father Asthma Mother Hypertension Mother Breast Cancer Mother Diabetes Mother Strabismus Sister Cancer Maternal Grandfather LUNG CANCER Heart Maternal Grandmother SD Cancer Paternal Grandfather THROAT CANCER Breast Cancer Maternal Aunt Breast Cancer Paternal Aunt Coronary Artery Disease No Family History Thyroid No Family History Blood Disease No Family History Blood Clots No Family History Factor 5 Leiden No Family History DVT No Family History Stroke No Family History Systemic Lupus Erythematosus No Family History Multiple Sclerosis No Family History Bipolar disorder No Family History Schizophrenia No Family History Alzheimer's Disease No Family History Dementia No Family History Parkinson s Disease No Family History Aneurysm No Family History COPD No Family History Kidney Disease No Family History Seizures No Family History Social History Tobacco Use Smoking status: Former Packs/day: 0.50 Years: 10.00 Additional pack years: 0.00 Total pack years: 5.00 Types: Cigarettes Quit date: 04/02/2019 Years since quittin.1 Smokeless tobacco: Never Vaping Use Vaping Use: Never used Substance Use Topics Alcohol use: No Drug use: Never (Not in a hospital admission) Allergies As of Date: 05/30/2023 Allergen Noted Reaction AUGMENTIN [AMOXICILLIN-POT CLAVUL*12/16/2010 Mental Status Change SHELLFISH 12/12/2010 Swelling TYLENOL #3 [CODEINE] 08/06/2007 Swelling VENOM-HONEY BEE 12/28/2018 Swelling Fully Assessed 02/16/2023 Current Outpatient Medications Medication Sig Dispense Refill PARoxetine (PAXIL) 20 mg tablet Take 1 tablet by mouth once daily. Take with 40 mg tablet for a total daily dosage of 60 mg. 90 tablet 0 lisinopril (ZESTRIL) 40 mg tablet TAKE 1 TABLET BY MOUTH EVERY DAY 90 tablet 2 busPIRone (BUSPAR) 10 mg tablet Take 1 tablet by mouth three times daily. 270 tablet 0 PARoxetine (PAXIL) 40 mg tablet Take 1 tablet by mouth once daily. Take with 20 mg tablet for totaldosage of 60 mg. 90 tablet 0 insulin glargine (BASAGLAR KWIKPEN U-100 INSULIN) 100 unit/mL (3 mL) Inject 25 Units subcutaneouslydaily at bedtime. 8 Each 0 rosuvastatin (CRESTOR) 5 mg tablet Take 1 tablet by mouth daily at bedtime. 90 tablet 1 traZODone (DESYREL) 50 mg tablet Take 0.5-1 tablets by mouth at bedtime as needed. 90 tablet 0 hydrOXYzine HCl (ATARAX) 25 mg tablet TAKE 1 TABLET BY MOUTH THREE TIMES DAILY NEEDED FOR ANXIETY. MAY TAKE 1/2 TABLET 90 tablet 1 brexpiprazole (REXULTI) 1 mg tablet Take 1.5 tablets by mouth once daily. 135 tablet 0 linaclotide (LINZESS) 145 mcg capsule Take by mouth. cyclobenzaprine (FLEXERIL) 10 mg tablet Take 1 tablet by mouth three times daily as needed for muscle spasm. 30 tablet 1 flash glucose scanning reader (FREESTYLE [place] 2 READER) To use with the freestyle everardo sensor. Uncontrolled type 2 diabetes 1 Each 0 blood sugar diagnostic (FREESTYLE LITE STRIPS) test strip Test blood sugar(s) 3 times daily. Dx: Type 2 DM - Controlled E11.9 Insulin: No 100 Strip 3 No current facility-administered medications for this visit. COMPLETE REVIEW OF SYSTEMS: 10 point review of systems was negative other than what is mentioned in the H&P PHYSICAL EXAM: BP 138/97 Pulse (!) 53 Wt 92.5 kg (204 lb) LMP 02/01/2023 (Exact Date) SpO2 99% BMI 36.14kg/m General: NAD, alert and cooperative, no facial plethora Previous exam Psych: Normal affect HEENT: EOMI, no proptosis/stare. Neck: supple with full ROM. No thyromegaly or palpable nodules. No significant acanthosis on the back of the neck Cardiovascular: RRR, +S1 and S2, no MRG appreciated Lungs: Clear to auscultation bilaterally Abdomen: soft, non-tender, non-distended, no dark striae Extremities: No LE oedema Neuro: No tremor of outstretched hands noted. Deep tendon reflexes are normal with a normal relaxation phase. Foot exam 08/16/2021: No wounds or ulcers. Good pedal pulses bilaterally. Normal monofilament and vibration sensation bilaterally Labs: As mentioned above Assessment and Recommendations: Ms. Warren is a pleasant 38-year-old woman presented for follow-up of diabetes. Her last visit was in mid 2021. Her diabetes is poorly controlled as evidenced by the A1c level and the glucose values. She stoppedtaking her medications but then restarted taking the insulin few days ago. She was taking the Basaglar to 3 times a day and the Humalog once a day by mistake. She went to the ED because of anxiety and fluctuating glucose levels and she was instructed on the proper insulin intake. The patient was very shaky and anxious during the visit. We checked her blood sugar and was 126. We will restart Trulicity 1.5 mg once a week. I asked her to take Basaglar (weber pen) 25 units oncea day at bedtime, and to stop the Fiasp. I also prescribed freestyle everardo and she will restart using it. Given the coarse tremors and anxiety, I will check her TFTs and I referred her to neurology for theevaluation and management of the tremors I will see her in a month on a video visit Some of the above has been copied from prior documentation on 02/20/2022 pickett elements reviewed,confirmed, and/or updated by me (Nilda Lauren MD) on 05/30/2023 Medical Decision Making: Problems: Moderate: 1+ chronic illnesses with change Data: Unique test result(s) reviewed: 3+ Unique test(s) ordered: 1 Risk: Moderate: Drug management and Moderate risk from testing/treatment Medical Decision Making Level: 4 - Moderate Nilda Lauren MD documented in this encounterFlower [facility]06-30-2023 Miscellaneous Notes* Telephone Encounter - Pam Dye RN - 04/06/2023 12:09 PM EDT Being addressed in 03/30/2023 telephone encounter. Pam Dye RN documented in this encounterFlower Hospital06-29-2023 Miscellaneous Notes* Telephone Encounter - Tito Caldera RN - 04/05/2023 9:22 AM EDT Called patient and left detailed voicemail message asking her to provide the name and phone number for a contact centre supervisor with her employer so nurse can speak with them directly. Callback number provided. Tito Caldera RN * Telephone Encounter - Nafisa Bo RN - 04/02/2023 10:05 AM EDT See 03/08/2023 encounter. This is a [facility] patient. Dr. Gandhi will not sign a return to work letter. (Encounter 10/23/2022) Nafisa Bo RN * Telephone Encounter - Agustina Nye - 03/30/2023 3:00 PM EDT General call : Full name of person calling: Denismignonjovita Warren Relationship to patient: self Phone # : [phone] Reason for call: Patient called and said that she needs a return to work letter faxed to [employer] at [phone] and [employer] at [phone] Gandhi documented in this encounterFlower Hospital06-05-2023 Miscellaneous Notes* Telephone Encounter - Angie Ponce - 03/12/2023 11:32 AM EDT Patient is scheduled for a virtual visit on 04-06-23 at 9 am. Angie Ponce March 12, 2023 11:33 AM * Telephone Encounter - Jeanette Miller APRN.CNP - 03/12/2023 10:18 AM EDT Patient needs appointment before any refills past today are given as there is currently no scheduled upcoming appointment * Telephone Encounter - Angie Ponce - 03/12/2023 10:02 AM EDT The following medication(s) is being requested: LAST APPT - 01.23.23 NEXT APPT - 03.12.23 today Requested Prescriptions Pending Prescriptions Disp Refills PARoxetine (PAXIL) 20 mg tablet [Pharmacy Med Name: PAROXETINE HCL 20 MG TABLET] 90 tablet 0 Sig: Take 1 tablet by mouth once daily. Take with 40 mg tablet for a total daily dosage of 60 mg. busPIRone (BUSPAR) 10 mg tablet [Pharmacy Med Name: BUSPIRONE HCL 10 MG TABLET] 270 tablet 0 Sig: Take 1 tablet by mouth three times daily. PARoxetine (PAXIL) 40 mg tablet 90 tablet 0 Sig: Take 1 tablet by mouth once daily. Take with 20 mg tablet for total dosage of 60 mg. Please process accordingly Angie Ponce documented in this encounterFlower Hospital06-05-2023 Miscellaneous Notes* Telephone Encounter - Amos Acevedo LPN - 03/12/2023 8:53 AM EDT Pharmacy verified in [facility] Patient has been identified by name and date of : Yes Patient aware RX will be sent to pharmacy. No need to notify patient. Pharmacy phones for refill(s): Requested Prescriptions Pending Prescriptions Disp Refills lisinopril (ZESTRIL) 40 mg tablet [Pharmacy Med Name: LISINOPRIL 40 MG TABLET] 90 tablet 2 Sig: TAKE 1 TABLET BY MOUTH EVERY DAY Date of last office visit : 09/27/2022 Date of next office visit : 08/21/2023 Last 2 Encounter Wt Readings: Date: Wt: 02/16/2023 92.1 kg (203 lb) 02/07/2023 88.9 kg (196 lb) Blood Pressure: BUN (mg/dL) Date Value 08/23/2022 14 08/13/2021 11 Creatinine (mg/dL) Date Value 08/23/2022 0.68 08/13/2021 0.75 Sodium (mmol/L) Date Value 08/23/2022 134 08/13/2021 136 Potassium (mmol/L) Date Value 08/23/2022 4.0 08/13/2021 4.1 Last 1 Encounter BP Readings: Date: BP: 02/16/2023 126/82 Please advise. Amos Acevedo LPN documented in this encounterFlower Hospital05-30-2023 Miscellaneous Notes* Telephone Encounter - Angie Ponce - 03/06/2023 12:24 PM EDT Provider renewed 11-17-22 for 90 day supply with 1 refills. Our records indicate there are valid/active refills for this medication Receipt confirmed by pharmacy (11/17/2022 3:37 PM EST). Please contact your pharmacy for the available refill(s). Angie Ponce March 06, 2023 12:27 PM documented in this encounterFlower Hospital05-15-2023 Miscellaneous Notes* Telephone Encounter - Dina Hopper RN - 02/19/2023 11:25 AM EDT Pt called and is notified of providers results and instructions. Pt voices understanding. Dina Hopper RN * Telephone Encounter - Mariam Roa - 02/19/2023 11:20 AM EDT Left message for patient to return call Mariam Roa * Telephone Encounter - Brayden Kumar APRN.CNP - 02/19/2023 8:23 AM EDT Please let patient know her hemoglobin a1c is elevated at 7.2. I would like patient to increase herinsulin to 25 units at bedtime. I have sent in a new prescription. Patient's cholesterol and triglycerides have also increased and I would recommend starting medication to address this. I have sent in a prescription for rosuvastatin and patient should start taking this every night before bed. documented in this encounterFlower Hospital05-12-2023 Miscellaneous Notes* Telephone Encounter - Rene Nolan Ma - 02/16/2023 2:29 PM EDT Please review alternatives from pharmacy. documented in this encounterFlower Hospital05-12-2023 Instructions* Patient Instructions* Brayden Kumar APRN.CNP - 02/16/2023 1:15 PM EDT Continue current medications Follow up in 6 months for diabetes management. documented in this encounterFlower Hospital05-12-2023 History of Present illness Narrative* Brayden Kumar APRN.CNP - 02/16/2023 12:59 PM EDT Chief Complaint Patient presents with: Establish [facility] HPI Reinaldo Warren is a 37 year old female who presents here today for Above Complaints.. Patient presents to establish [facility]. Patient reports she is currently having white thick discharge with itching for months. Patient currently undergoing treatment with neurology and psychiatry/psychology for epilepsy vs psychogenic seizures. Past medical history, appointments, medications, allergies reviewed. Previous Medical History PAST MEDICAL HISTORY Diagnosis Date Diabetes mellitus of mother, complicating , childbirth, or the puerperium, unspecified as to episode of care(648.00) Gestational diabetes Dysthymic disorder Depression (non-psychotic), Essential hypertension, benign Hemorrhoids 05/19/2011 History of gestational diabetes 10/31/2012 10/31/2012Patient had gestational diabetes with her last 2 pregnancies. She was on glyburide with the that she delivered in 2009. She was insulin- dependent her last . She deliveredboth of those pregnancies in [place]. Patient is obese. 3 hour G TT ordered by Dr. Jennings. Migraine, unspecified, with intractable migraine, so stated, without mention of status migrainosus Migraine Nipple discharge 02/19/2016 PMH - PAST MEDICAL HISTORY OF DYSLEXIA PMH - PAST MEDICAL HISTORY OF 1988 FRACTURED LEFT LEG PMH - PAST MEDICAL HISTORY OF 01/2007 HOSPITALIZED FOR RUPTURED OVARIAN CYST Psychogenic nonepileptic seizure 10/20/2022 SPINAL HEADACHE WITH DELIVERIES IN 2009&2011 Type 2 diabetes mellitus (HCC) Unspecified asthma(493.90) Previous Surgical History PAST SURGICAL HISTORY Procedure Laterality Date DELIVERY ONLY 2008,10/14/2009 , low cervicalx2 DELIVERY ONLY 06/06/2013 , low transverse COLONOSCOPY FLX DX W/COLLJ SPEC WHEN PFRMD 11/28/2013 Colonoscopy ESOPHAGOGASTRODUODENOSCOPY TRANSORAL DIAGNOSTIC 11/28/2013 EGD HYSTEROSCOPY BX W/WO D&C 08/14/2019 hysteroscoy D&C w/ mirena insertion LIG/TRNSXJ FLP TUBE ABDL/VAG APPR UNI/BI 06/06/2013 Tubal ligation REMOVAL OF GALLBLADDER 10/07/2018 [place] REPAIR UMBILICAL HERNIA 06/20/[address] medium mesh [facility] Family History FAMILY HISTORY Problem Relation Age of Onset Hypertension Father Diabetes Father Lipids Father Asthma Mother Hypertension Mother Breast Cancer Mother Diabetes Mother Strabismus Sister Cancer Maternal Grandfather LUNG CANCER Heart Maternal Grandmother SD Cancer Paternal Grandfather THROAT CANCER Breast Cancer Maternal Aunt Breast Cancer Paternal Aunt Coronary Artery Disease No Family History Thyroid No Family History Blood Disease No Family History Blood Clots No Family History Factor 5 Leiden No Family History DVT No Family History Stroke No Family History Systemic Lupus Erythematosus No Family History Multiple Sclerosis No Family History Bipolar disorder No Family History Schizophrenia No Family History Alzheimer's Disease No Family History Dementia No Family History Parkinson s Disease No Family History Aneurysm No Family History COPD No Family History Kidney Disease No Family History Seizures No Family History Patient Allergies ALLERGIES Allergen Reactions Augmentin [Amoxicil* Mental Status Change Shellfish Swelling Tylenol #3 [Codeine] Swelling Venom-Honey Bee Swelling Current Medications Current Outpatient Medications on File Prior to Visit Medication Sig traZODone (DESYREL) 50 mg tablet Take 0.5-1 tablets by mouth at bedtime as needed. hydrOXYzine HCl (ATARAX) 25 mg tablet TAKE 1 TABLET BY MOUTH THREE TIMES DAILY NEEDED FOR ANXIETY. MAY TAKE 1/2 TABLET brexpiprazole (REXULTI) 1 mg tablet Take 1.5 tablets by mouth once daily. PARoxetine (PAXIL) 20 mg tablet Take 1 tablet by mouth once daily. Take with 40 mg tablet for totaldosage of 60 mg. PARoxetine (PAXIL) 40 mg tablet Take 1 tablet by mouth once daily. Take with 20 mg tablet for totaldosage of 60 mg. insulin glargine (BASAGLAR KWIKPEN U-100 INSULIN) 100 unit/mL (3 mL) Inject 20 Units subcutaneouslydaily at bedtime. linaclotide (LINZESS) 145 mcg capsule Take by mouth. lisinopril (ZESTRIL, PRINIVIL) 40 mg tablet Take 1 tablet by mouth once daily. cyclobenzaprine (FLEXERIL) 10 mg tablet Take 1 tablet by mouth three times daily as needed for muscle spasm. flash glucose scanning reader (FREESTYLE EVERARDO 2 READER) To use with the freestyle everardo sensor. Uncontrolled type 2 diabetes blood sugar diagnostic (FREESTYLE LITE STRIPS) test strip Test blood sugar(s) 3 times daily. Dx: Type 2 DM - Controlled E11.9 Insulin: No No current facility-administered medications on file prior to visit. Social History Social History Tobacco Use Smoking status: Former Packs/day: 0.50 Years: 10.00 Pack years: 5.00 Types: Cigarettes Quit date: 04/02/2019 Years since quittin.8 Smokeless tobacco: Never Vaping Use Vaping Use: Never used Substance Use Topics Alcohol use: No Drug use: Never Review of Symptoms REVIEW OF SYSTEMS GENERAL: No weight loss, malaise or fevers HEENT: Negative for frequent or significant headaches, No changes in hearing or vision, no nose bleeds or other nasal problems NECK: Negative for lumps, goiter, pain and significant neck swelling RESPIRATORY: Cough; dry CARDIOVASCULAR: Negative for chest pain, leg swelling, hypertension, CHF or palpitations GI: No nausea, vomiting, or diarrhea : No history of dysuria, frequency or incontinence DAMAGE PREVENTION COORDINATOR: Positive for abnormal vaginal discharge white thick lumpy MUSCULOSKELETAL: Negative for joint pain or swelling, back pain or muscle pain SKIN: Negative for lesions, rash, and itching PSYCH: Positive for depression: and anxiety: HEMATOLOGY/LYMPHOLOGY: Negative for prolonged bleeding, bruising easily or swollen nodes ENDOCRINE: Negative for cold or heat intolerance, polyuria, polydipsia and goiter NEURO: Seizures EXAM: BP 126/82 Pulse 114 Resp 16 Ht 160 cm (5' 3) Wt 92.1 kg (203 lb) LMP 02/01/2023 (Exact Date) BMI 35.96 kg/m General Appearance: Well appearing, alert, in no acute distress, well-hydrated, well nourished.. Skin: Skin color, texture, turgor normal, no suspicious rashes or lesions. Neck: Supple, no adenopathy; thyroid symmetric, normal size, no bruits. Lungs: Lungs clear to auscultation. No wheezing, rhonchi, rales.. Heart: RRR without murmur, gallop, or rubs. No ectopy. Abdomen: Normal abdominal exam, Abdomen soft, non-tender. Bowel sounds normal. No masses, organomegaly. Extremities: No deformities, edema, skin discoloration, clubbing or cyanosis. Good capillary refill. . Peripheral Pulses: Normal. Health Maintenance List PNEUMOCOCCAL(1 - PCV) Never done HEPATITIS B(3 of 3 - 19+ 3-dose series) due on 05/09/2020 PAP TESTING due on 11/01/2020 HPV TESTING due on 11/01/2020 DILATED RETINAL EXAM due on 05/31/2021 URINE ALBUMIN:CREATININE RATIO due on 11/02/2021 LDL CHOLESTEROL due on 08/13/2022 DIABETIC FOOT EXAM due on 08/16/2022 DEPRESSION ASSESSMENT Never done COVID-19 VACCINE(1) due on 02/17/2024 HBA1C due on 02/17/2023 INFLUENZA(Season Ended) due on 06/08/2023 BP CONTROLLED (<130/80) due on 08/23/2023 ANNUAL PCP TEAM CHRONIC DISEASE VISIT due on 09/27/2023 DTAP,TDAP,TD(3 - Td or Tdap) due on 10/13/2029 SPIROMETRY Completed HEPATITIS C SCREENING Completed HIV SCREENING Completed ASSESSMENT/PLAN: 1. Type 2 diabetes mellitus without complication, with long-term current use of insulin (HCC) - ICD9: 250.00, V58.67, ICD10: E11.9, Z79.4 (primary diagnosis) - Improving control - Continue current medications - Discussed need for and benefit of weight loss. BMI 35.96 kg/(m^2) - INSULIN GLARGINE (U-100) 100 UNIT/ML (3 ML) SUBCUTANEOUS PEN 2. Wellness examination - ICD9: V70.0, ICD10: Z00.00 - Counseled on healthy diet and regular exercise - Calcium intake with supplements or by diet of 1000 mg/day for under 50, 1200- 1500 mg/day for 50+ - Discussed need and benefit for weight loss. BMI 35.96 kg/(m^2) - Depression screening tool completed and reviewed with patient. Based on score and interview, patient is not at risk for depression and recommended no further intervention at this time. - Follow up for annual exam in one year 3. Vaginal itching - ICD9: 698.1, ICD10: N89.8 - BACT/ANTHONY VAG GRAM STAIN 4. Seizure disorder (HCC) - ICD9: 345.90, ICD10: G40.909 - PARKING FOR HANDICAPPED Brayden Kumar APRN.PUBLIC SAFETY TELECOMMUNICATOR documented in this encounterFlower Hospital05-03-2023 History of Present illness Narrative* Renee Manuel MD - 02/07/2023 10:56 AM EDT BREAST LUMP HISTORY: This is a 37 year old female Presents with tenderness and nipple discharge on the right side. Looks blood tinged or brown. Since5 days ago. No trauma to the area. Never had this before. Has had some clear discharge in the past Tenderness Yes, Change in sizeNo Any history breast mass No Last mammogram 2015 normal Any previous breast surgery No Any family history breast disease/ breast cancer sister and aunt breast ca OB History T4 L4 SAB1 IAB0 Ectopic0 Multiple0 Live Births1 PAST MEDICAL HISTORY Diagnosis Date Diabetes mellitus of mother, complicating , childbirth, or the puerperium, unspecified as to episode of care(648.00) Gestational diabetes Dysthymic disorder Depression (non-psychotic), Essential hypertension, benign Hemorrhoids 05/19/2011 History of gestational diabetes 10/31/2012 10/31/2012Patient had gestational diabetes with her last 2 pregnancies. She was on glyburide with the that she delivered in 2009. She was insulin- dependent her last . She deliveredboth of those pregnancies in [place]. Patient is obese. 3 hour G TT ordered by Dr. Jennings. Migraine, unspecified, with intractable migraine, so stated, without mention of status migrainosus Migraine Nipple discharge 02/19/2016 PMH - PAST MEDICAL HISTORY OF DYSLEXIA PMH - PAST MEDICAL HISTORY OF 1988 FRACTURED LEFT LEG PMH - PAST MEDICAL HISTORY OF 01/2007 HOSPITALIZED FOR RUPTURED OVARIAN CYST Psychogenic nonepileptic seizure 10/20/2022 SPINAL HEADACHE WITH DELIVERIES IN 2009&2011 Type 2 diabetes mellitus (HCC) Unspecified asthma(493.90) PAST SURGICAL HISTORY Procedure Laterality Date DELIVERY ONLY 2008,10/14/2009 , low cervicalx2 DELIVERY ONLY 06/06/2013 , low transverse COLONOSCOPY FLX DX W/COLLJ SPEC WHEN PFRMD 11/28/2013 Colonoscopy ESOPHAGOGASTRODUODENOSCOPY TRANSORAL DIAGNOSTIC 11/28/2013 EGD HYSTEROSCOPY BX W/WO D&C 08/14/2019 hysteroscoy D&C w/ mirena insertion LIG/TRNSXJ FLP TUBE ABDL/VAG APPR UNI/BI 06/06/2013 Tubal ligation REMOVAL OF GALLBLADDER 10/07/2018 [place] REPAIR UMBILICAL HERNIA 06/20/[address] medium mesh [facility] FAMILY HISTORY Problem Relation Age of Onset Hypertension Father Diabetes Father Lipids Father Asthma Mother Hypertension Mother Breast Cancer Mother Diabetes Mother Strabismus Sister Cancer Maternal Grandfather LUNG CANCER Heart Maternal Grandmother SD Cancer Paternal Grandfather THROAT CANCER Breast Cancer Maternal Aunt Breast Cancer Paternal Aunt Coronary Artery Disease No Family History Thyroid No Family History Blood Disease No Family History Blood Clots No Family History Factor 5 Leiden No Family History DVT No Family History Stroke No Family History Systemic Lupus Erythematosus No Family History Multiple Sclerosis No Family History Bipolar disorder No Family History Schizophrenia No Family History Alzheimer's Disease No Family History Dementia No Family History Parkinson s Disease No Family History Aneurysm No Family History COPD No Family History Kidney Disease No Family History Seizures No Family History SOCIAL HISTORY Social History Tobacco Use Smoking status: Former Packs/day: 0.50 Years: 10.00 Pack years: 5.00 Types: Cigarettes Quit date: 04/02/2019 Years since quittin.8 Smokeless tobacco: Never Vaping Use Vaping Use: Never used Substance Use Topics Alcohol use: No Drug use: Never PAST SURGICAL HISTORY Procedure Laterality Date DELIVERY ONLY 2008,10/14/2009 , low cervicalx2 DELIVERY ONLY 06/06/2013 , low transverse COLONOSCOPY FLX DX W/COLLJ SPEC WHEN PFRMD 11/28/2013 Colonoscopy ESOPHAGOGASTRODUODENOSCOPY TRANSORAL DIAGNOSTIC 11/28/2013 EGD HYSTEROSCOPY BX W/WO D&C 08/14/2019 hysteroscoy D&C w/ mirena insertion LIG/TRNSXJ FLP TUBE ABDL/VAG APPR UNI/BI 06/06/2013 Tubal ligation REMOVAL OF GALLBLADDER 10/07/2018 [place] REPAIR UMBILICAL HERNIA 06/20/[address] medium mesh [facility] Current Outpatient Medications Medication Sig traZODone (DESYREL) 50 mg tablet Take 0.5-1 tablets by mouth at bedtime as needed. hydrOXYzine HCl (ATARAX) 25 mg tablet TAKE 1 TABLET BY MOUTH THREE TIMES DAILY NEEDED FOR ANXIETY. MAY TAKE 1/2 TABLET brexpiprazole (REXULTI) 1 mg tablet Take 1.5 tablets by mouth once daily. PARoxetine (PAXIL) 20 mg tablet Take 1 tablet by mouth once daily. Take with 40 mg tablet for totaldosage of 60 mg. PARoxetine (PAXIL) 40 mg tablet Take 1 tablet by mouth once daily. Take with 20 mg tablet for totaldosage of 60 mg. insulin glargine (BASAGLAR KWIKPEN U-100 INSULIN) 100 unit/mL (3 mL) Inject 20 Units subcutaneouslydaily at bedtime. linaclotide (LINZESS) 145 mcg capsule Take by mouth. lisinopril (ZESTRIL, PRINIVIL) 40 mg tablet Take 1 tablet by mouth once daily. cyclobenzaprine (FLEXERIL) 10 mg tablet Take 1 tablet by mouth three times daily as needed for muscle spasm. flash glucose scanning reader (FREESTYLE EVERARDO 2 READER) To use with the freestyle everardo sensor. Uncontrolled type 2 diabetes blood sugar diagnostic (FREESTYLE LITE STRIPS) test strip Test blood sugar(s) 3 times daily. Dx: Type 2 DM - Controlled E11.9 Insulin: No No current facility-administered medications for this visit. Allergies As of Date: 02/07/2023 Allergen Noted Reaction AUGMENTIN [AMOXICILLIN-POT CLAVUL*12/16/2010 Mental Status Change SHELLFISH 12/12/2010 Swelling TYLENOL #3 [CODEINE] 08/06/2007 Swelling VENOM-HONEY BEE 12/28/2018 Swelling Fully Assessed 02/05/2023 EXAMINATION: There is no concerning cervical, supraclavicular, or axillary lymphadenopathy. She has bilateral fibrocystic changes. On the left are no dominant masses, skin changes or nipple discharge. On the right there is some blood tinged discharge and a small 5 mm round mobile area 11 oclock under areala andsmall amount of dark red tinged discharge, in the 11 oclock location, but no skin changes IMPRESSION: right breast mass. PLAN: No orders found for this visit on 02/07/23. A discussion was held with the patient and patient who agrees with Diagnostic mammo and US Renee Manuel MD documented in this encounterFlower Hospital05-01-2023 Miscellaneous Notes* Telephone Encounter - Freedom Marquez RN - 02/05/2023 1:09 PM EDT Reason for Call: Pt c/o right breast pain with a bloody discharge since Sunday. Asking if a mammogram order could be placed today? Outcome: Disposition- See pcp/provider within 24 hrs. Pt has an appt on 02/07. Warm transfer to [facility] in . Reason for Disposition [1] Breast looks infected (spreading redness, feels hot or painful to touch) AND [2] no fever Answer Assessment - Initial Assessment Questions 1. SYMPTOM: pain in right breast and nipple (rates it 7/10) with a bloody discharge when squeezed. Past 3 days still having some bloody discharge along with a clear/yellow/white discharge. 2. LOCATION: Right breast. 3. ONSET: pain started 2 to 3 months ago. Sunday noticed discharge. 4. PRIOR HISTORY: years ago had a mammogram due to a lump but everything checked out normal. 5. CAUSE: unsure. 6. OTHER SYMPTOMS: a little redness where lump is from years ago which is near nipple. Lump is about 1 across.Also mentioned some indentations on right breast near nipple. Agrees it looks like the skin of an orange. Feels shape of breast has changed. 7. -: Denies. Protocols used: Breast [id number] documented in this encounterFlower Hospital04-24-2023 Miscellaneous Notes* Telephone Encounter - Angie Ponce - 01/29/2023 9:12 AM EDT Provider renewed 3.. for 30 day supply with 1 refills. Our records indicate there are valid/active refills for this medication Receipt confirmed by pharmacy (01/02/2023 3:38 PM EDT). Please contact your pharmacy for the available refill(s). Angie Ponce January 29, 2023 9:13 AM documented in this encounterFlower Hospital04-19-2023 Miscellaneous Notes* Telephone Encounter - Tito Caldera RN - 01/24/2023 12:20 PM EDT Letter was previously faxed to [facility]. Patient called, requesting that letter be faxed to [employer] at . Letter faxed via [employer]. Tito Caldera RN * Telephone Encounter - Nafisa Bo RN - 01/09/2023 3:41 PM EDT Tito, This patient got a letter that you did that already stated return in March. If you have time, could you let her know. Thanks Nafisa Bo RN * Telephone Encounter - Marium FRANCES - 01/09/2023 3:14 PM EDT Letter Request: Reason letter is requested. Letter stating that patient cant return to work until 03/27/2023 Person calling: Reinaldo Nyelace (home) To be addressed to: to whom it may concern Address/Email: Phone/ Patient of Dr. gandhi [facility] Miscellaneous Notes* Group Note - VAUGHN Garrido - 01/17/2023 5:06 PM EDT Patient attended and participated in group PNES psycho-education group focused on Wellness. Patientremained present for entire duration of group. [facility] in [facility]04-[facility]-2023 Miscellaneous Notes* Telephone Encounter - Jeanette Miller APRN.LOR - 01/08/2023 1:26 PM EDT Per chart, it appears Dr. Gandhi is handling her leave paperwork. She was directed to communicate with him about this. * Telephone Encounter - Lorrie Harrison - 01/02/2023 11:55 AM EDT Jeanette, Patient called-in stating she need a letter statement leave of absence from you. To return the week of 03-27-23, but if you want her to go back to work sooner- than you can change the date to 01-03-23. She would like to have this faxed to @[phone] documented in this encounterFlower [facility]03-28-2023 Miscellaneous Notes* Group Note - YOAV Mcdonald - 01/02/2023 5:20 PM EDT No show for PNES psycho-educational group regarding Obtaining Support. documented in this [facility]Flower [facility]03-27-2023 Miscellaneous Notes* Telephone Encounter - Angie Ponce - 01/01/2023 1:56 PM EDT The following medication(s) is being requested: LAST APPT - 12-15-22 NEXT APPT - 01-23-23 Requested Prescriptions Pending Prescriptions Disp Refills hydrOXYzine HCl (ATARAX) 25 mg tablet [Pharmacy Med Name: HYDROXYZINE HCL 25 MG TABLET] 90 tablet 1 Sig: TAKE 1 TABLET BY MOUTH THREE TIMES DAILY NEEDED FOR ANXIETY. MAY TAKE 1/2 TABLET Please process accordingly Angie Ponce documented in this encounterFlower Hospital03-27-2023 Hospital Discharge instructions Additional Instructions Follow-up with your neurologist in 3 to 5 days.[facility] Work Phone: 1(761) 422-219703-21-2023 Miscellaneous Notes* Group Note - YOAV Mcdonald - 12/26/2022 2:57 PM EDT Patient attended and participated in PNES psycho-educational group regarding topic of UnderstandingSeizures. Patient remained present for portion of group session. documented in this encounterFlower Hospital03-21-2023 Miscellaneous Notes* Telephone Encounter - Nafisa Bo RN - 12/26/2022 12:43 PM EDT Noted. Nafisa Bo RN * Telephone Encounter - Tito Caldera RN - 12/26/2022 12:31 PM EDT Advised to provide letter recommending extended leave of absence for patient. Letter signed by provider and copy faxed to patient's employer via [employer]. Left voicemail message notifying patient. Tito Caldera RN * Telephone Encounter - Sharda Casillas - 12/15/2022 2:24 PM EST Opened in error. * Telephone Encounter - Marium FRANCES - 12/15/2022 10:55 AM EST Letter Request: Reason letter is requested. Letter to return to work if she can or cant go back. Listing no restrictions. Person calling: Reinaldo Warren To be addressed to: to whom it may concern Address/Email: Phone/ Patient of Dr. Gandhi Please also list letter in mychart as well per patient documented in this encounterFlower Hospital03-21-2023 Hospital Discharge instructions Additional Instructions Follow-up with your neurologist in 3 to 5 days.[facility] Work Phone: [phone]) 415-752603-13-2023 History of Present illness Narrative* Cinthia Reed PA-C - 12/18/2022 9:40 AM EDT [facility] Patient Name: Reinaldo Warren Date of : 1985 ESTABLISHED EPILEPSY CLINIC NOTE 12/18/2022 9:30 AM Reason for Visit: Follow Up Clinical Summary: Ms. Warren is a 37 year old right-handed female [facility]. Classification Summary HISTORY OF PRESENT ILLNESS This is a VV using zoom audio and video Handedness: right-handed Age of onset: 28 years Seizure History and Evolution History from inpatient consultation in Aug 2022: 37 year old year old female presents with recurrent convulsions. Timeline history review: 08/29/2013 - MRI BRAIN images in [facility] - outside hospital - reviewed and no evidence of acute changes or pathology 09/16/2013 - Epilepsy note by Dr. Gordon - This is a 28 year old right-handed female who presents with a chief complaint of possible seizures. She is referred by Dr. Galeano after he saw the patient in clinic. The patient states that all started about one week after she delivered her baby in June 06 2013. After that, she was admitted to the hospital after having sudden weakness of the right hemibody and loss of sensation. She was told that she had a stroke but the Brain MRI did not show any abnormalities. Since it was after delivery, a brain MRV was performed and was normal (report available in [facility], images were not available). The patient improved after 4 hours of weakness and numbness of the right hemibody. After that, she started experiencing 2 different events that generally start very similar but evolved slightly different. She describes the first type of event like passing out events. She states that she would start having nausea, then she could vomit and minutes after that she would have a headache, then she would complain of numbness sensation in the right hemibody (described as weakness and pins and needles sensation). Then, suddenly she becomes pale and sweaty and would pass out. According to her relatives,she is completely limp on the floor for about 5 minutes. After that, she would recover consciousness but she is still confused for about 10 minutes. The events occur 3-4 times daily. There is historyof loss of control of bladder but not bowel. Not tongue injury. The second event that she calls seizures are quite similar. She describes that all starts with some numbness in the right hemibody, she feels sweaty and hot and after that the patient is not aware of the events. She was told that she would stare unresponsive for about 30 seconds and then falls onthe ground having a convulsion. The relatives describe the movements on the ground like an asynchronic movement of the upper and lower extremities associated with back and forth movement of the head. This event lasts 2 to 3 minutes. Then, she wakes up confused for about 30 minutes. She has these type of event twice to three times a week. There is history of loss of control of bladder but not bowel. Not tongue injury. She has previous history of diabetes, depression and hypertension. During her last she was told that she had hypertension and diabetes. The possible stroke was not completely understood and the brain MRI /MRV/MRA were normal (results scan in [facility]). Thereis no history of status epilepticus. Postictal symptoms include confusion. Possible lateralizing signs by history: focal onset with tingling sensation in the right hemibody. Currently not taking antiseizure medications. She is taking Xanax for anxiety. EEG was ordered and Trileptal started. 10/24/13 - Dr. Saenz follow up note - The patient has returned for follow-up regarding spells. This is a 28 year old right handed female who was last seen by Dr Yang and Dr Gordon on 09/16/13 and has been diagnosed with having spells of unclear etiology. She has been on Trileptal for the last 2 months. There are no complaints of side effects related to medications. Last event with LOC Sep 252012. No seizures since reaching target dose of Trileptal. Overall, she is feeling very well and is here for follow-up to discuss her driving privileges. 01/05/2020 - Dr. Camarillo follow up - This is a 34 year old right-handed female with depression and anxiety who presents with a chief complaint of spell recurrence. The onset of spell was 2012, she was treated with OXC for seizure like episodes by Dr. Yang. She stopped taking OXC (300 mg bid) since 2013. She has been doing well till Nov 2018 when her spells recurred. She states that her episodes are t he same as in 2014. The last one was 12/10/2019 when her blood pressure was high and her anxiety is high. She identifies high BP and anxiety can be the triggers for her seizure. She has 2 types of spells: 1. left side shaking with LOC (2-3 times per month), 2: whole body went numb and blurry vision, 10 times per month. 08/20/2022 - CTH WO - No CT evidence of acute intracranial abnormalities. 08/20/2022 - EEG - This EEG is within normal limits. No epileptiform discharges or EEG seizures were seen during this recording. One episode of body stiffening and head shaking was recorded, withoutEEG correlate to suggest epileptic seizure. 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 08/21/2022 - Dr. Rodriges - She states she had seizures starting after a stroke she had during section. She does not elaborate further. She says she only has maybe 1 seizure per year. She was on OXC but stopped taking. She does not remember the last time she took. She has no history of status epilepticus. She did bite her tongue. Her says with this seizure, she was tense and shaking. [id number] seconds. She is confused/weak afterwards. 08/22/2022 - Staudt - 37yo female with PMHx significant for DM, stroke, seizure, depression, HTN, and medication non-compliance; who presented to [facility] after 2 witnessed seizure like events. Concern for seizure in the setting of medication non-compliance EEG (08/20) No epileptiform discharges or EEG seizures were seen during this recording. One episode of body stiffening and head shaking was recorded, without EEG correlate to suggest epileptic seizure. C/w OXC, pt has not been taking for months per chart MRI brain w/wo pending Rec OP follow up with epilepsy Interval Seizure History Returns for follow up. She is asking for an extension on her work restriction previously provided by Dr. Gandhi as she unable to begin CBT until . Previously Dr. Gandhi had provided a letter stating she cannot return to work until after completing CBT. New letter will have a return to work date of March. Having PNES seizures 2-3 times a week. She was diagnosed with POTS Continues to work with psychiatry Is not driving Total # of Current Anti-seizure Medications: Side Effects to Current Anti-seizure Medications: Seizure Frequency at First Visit: 3 per week Longest Seizure-free Interval: 5 years Number of seizure types: 1 Hx of generalized tonic-clonic seizures: Yes Tongue bite: No Urine or Bowel Incontinence: Yes Triggers: unknown Postictal Deficits: No Memory complaints: mild Status Epilepticus or clusters: No Postictal Agitation: No Significant Injuries from Seizures: falls, no injuries Seizure-related driving accidents: No Driving: No Lives Alone: No Highest Level of Education: High school graduate (includes GED) CURRENT OUTPATIENT ANTISEIZURE MEDICATIONS (as of the start of the encounter) None Prior Anti-seizure Therapies: Trial Adequacy: Max Daily Dose Achieved: Side Effects: Effectiveness: Comments: Oxcarbazepine Comorbidities: Minor: Hypertension, PTSD, Migraine, Diabetes Type 2 Episode Description: SEIZURE TYPE 1: multiple types of episodes Onset: 2012 Aura: yes See below Description: episodes: right sided numbness, weakness and convulsive activity 2018 episodes: left sided shaking, convulsive activity Aug 2022: left face numbness, shaking of arms and legs, blurred vision, speech slurred Loss of awareness: Duration: Frequency: Last occurred: yes Patient Entered Data: EPILEPSY SCORE 12/18/2022 8:52 AM 12/18/2022 8:33 AM 11/22/2022 11:56 AM First answer obtained - 07/01/2020 10:06 AM PHQ-9 SCORE - - 9 [Mild Depression] 16 [Moderately Severe Depression] MILENA 2 SCORE - - 2 [Negative Anxiety Screen] - MILENA 7 SCORE - - - - QOLIE-10 SCORE (0=worst; 100=best QoL - higher scores represent better function) - - - LSSS SCORE (0- no seizures 100- most severe possible seizures) - - - C-SSRS SCREEN - - - - On average, how many hours of sleep do you get in a 24-hour period? 4 - - - PROMIS Sleep Disturbance T-SCORE - 57 [mild] - - Have you been diagnosed with Sleep Apnea? No - - - Seizure risk factors: Brain Tumor No DISTRIBUTION AGENT Infections No Developmental Delay No Family history of seizures No Febrile Seizure No Complications No Stroke No Traumatic Brain Injury No Previous Epilepsy Evaluations 08/29/2013 - MRI BRAIN images in [facility] - outside hospital - reviewed and no evidence of acute changes or pathology 09/16/2013 - Epilepsy note by Dr. Gordon - This is a 28 year old right-handed female who presents with a chief complaint of possible seizures. She is referred by Dr. Galeano after he saw the patient in clinic. The patient states that all started about one week after she delivered her baby in June 06 2013. After that, she was admitted to the hospital after having sudden weakness of the right hemibody and loss of sensation. She was told that she had a stroke but the Brain MRI did not show any abnormalities. Since it was after delivery, a brain MRV was performed and was normal (report available in [facility], images were not available). The patient improved after 4 hours of weakness and numbness of the right hemibody. After that, she started experiencing 2 different events that generally start very similar but evolved slightly different. She describes the first type of event like passing out events. She states that she would start having nausea, then she could vomit and minutes after that she would have a headache, then she would complain of numbness sensation in the right hemibody (described as weakness and pins and needles sensation). Then, suddenly she becomes pale and sweaty and would pass out. According to her relatives,she is completely limp on the floor for about 5 minutes. After that, she would recover consciousness but she is still confused for about 10 minutes. The events occur 3-4 times daily. There is historyof loss of control of bladder but not bowel. Not tongue injury. The second event that she calls seizures are quite similar. She describes that all starts with some numbness in the right hemibody, she feels sweaty and hot and after that the patient is not aware of the events. She was told that she would stare unresponsive for about 30 seconds and then falls onthe ground having a convulsion. The relatives describe the movements on the ground like an asynchronic movement of the upper and lower extremities associated with back and forth movement of the head. This event lasts 2 to 3 minutes. Then, she wakes up confused for about 30 minutes. She has these type of event twice to three times a week. There is history of loss of control of bladder but not bowel. Not tongue injury. She has previous history of diabetes, depression and hypertension. During her last she was told that she had hypertension and diabetes. The possible stroke was not completely understood and the brain MRI /MRV/MRA were normal (results scan in [facility]). Thereis no history of status epilepticus. Postictal symptoms include confusion. Possible lateralizing signs by history: focal onset with tingling sensation in the right hemibody. Currently not taking antiseizure medications. She is taking Xanax for anxiety. EEG was ordered and Trileptal started. 10/24/13 - Dr. Saenz follow up note - The patient has returned for follow-up regarding spells. This is a 28 year old right handed female who was last seen by Dr Yang and Dr Gordon on 09/16/13 and has been diagnosed with having spells of unclear etiology. She has been on Trileptal for the last 2 months. There are no complaints of side effects related to medications. Last event with LOC Sep 252012. No seizures since reaching target dose of Trileptal. Overall, she is feeling very well and is here for follow-up to discuss her driving privileges. 01/05/2020 - Dr. Camarillo follow up - This is a 34 year old right-handed female with depression and anxiety who presents with a chief complaint of spell recurrence. The onset of spell was 2012, she was treated with OXC for seizure like episodes by Dr. Yang. She stopped taking OXC (300 mg bid) since 2013. She has been doing well till Nov 2018 when her spells recurred. She states that her episodes are t he same as in 2013. The last one was 12/10/2019 when her blood pressure was high and her anxiety is high. She identifies high BP and anxiety can be the triggers for her seizure. She has 2 types of spells: 1. left side shaking with LOC (2-3 times per month), 2: whole body went numb and blurry vision, 10 times per month. 08/20/2022 - CTH WO - No CT evidence of acute intracranial abnormalities. 08/20/2022 - EEG - This EEG is within normal limits. No epileptiform discharges or EEG seizures were seen during this recording. One episode of body stiffening and head shaking was recorded, withoutEEG correlate to suggest epileptic seizure. 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 08/21/2022 - Dr. Rodriges - She states she had seizures starting after a stroke she had during section. She does not elaborate further. She says she only has maybe 1 seizure per year. She was on OXC but stopped taking. She does not remember the last time she took. She has no history of status epilepticus. She did bite her tongue. Her says with this seizure, she was tense and shaking. [id number] seconds. She is confused/weak afterwards. 08/22/2022 - Chrisdt - 37yo female with PMHx significant for DM, stroke, seizure, depression, HTN, and medication non-compliance; who presented to [facility] after 2 witnessed seizure like events. Concern for seizure in the setting of medication non-compliance EEG (08/20) No epileptiform discharges or EEG seizures were seen during this recording. One episode of body stiffening and head shaking was recorded, without EEG correlate to suggest epileptic seizure. C/w OXC, pt has not been taking for months per chart MRI brain w/wo pending Rec OP follow up with epilepsy Other caregivers: Primary Care Provider: Sharon Foster MD Current Outpatient Medications Medication Sig brexpiprazole (REXULTI) 1 mg tablet Take 1.5 tablets by mouth once daily. LORazepam (ATIVAN) 0.5 mg TAKE 1 TABLET TWICE A DAY NEEDED FOR ANXIETY FOR UP TO FIVE DAYS PARoxetine (PAXIL) 20 mg tablet Take 1 tablet by mouth once daily. Take with 40 mg tablet for totaldosage of 60 mg. PARoxetine (PAXIL) 40 mg tablet Take 1 tablet by mouth once daily. Take with 20 mg tablet for totaldosage of 60 mg. insulin glargine (BASAGLAR KWIKPEN U-100 INSULIN) 100 unit/mL (3 mL) Inject 20 Units subcutaneouslydaily at bedtime. insulin aspart, niacinamide, (FIASP FLEXTOUCH U-100 INSULIN) 100 unit/mL (3 mL) pen Inject 8 Units subcutaneously three times daily before meals. traZODone (DESYREL) 50 mg tablet TAKE 1/2 TO 1 TABLET BY MOUTH AT BEDTIME NEEDED FOR SLEEP hydrOXYzine HCl (ATARAX) 25 mg tablet Take 1 tablet by mouth three times daily as needed for anxiety. May take 1/2 tablet busPIRone (BUSPAR) 10 mg tablet Take 1 tablet by mouth three times daily. fludrocortisone (FLORINEF) 0.1 mg tablet Take 0.1 mg by mouth once daily. (Patient not taking: Reported on 10/20/2022) linaclotide (LINZESS) 145 mcg capsule Take by mouth. lisinopril (ZESTRIL, PRINIVIL) 40 mg tablet Take 1 tablet by mouth once daily. cyclobenzaprine (FLEXERIL) 10 mg tablet Take 1 tablet by mouth three times daily as needed for muscle spasm. midodrine (PROAMITINE) 5 mg tablet Take 1 tablet by mouth three times daily. (Patient not taking: Reported on 10/20/2022) flash glucose scanning reader (FREESTYLE EVERARDO 2 READER) To use with the freestyle everardo sensor. Uncontrolled type 2 diabetes medroxyPROGESTERone (PROVERA) 10 mg tablet Take 1 tablet by mouth as directed. for 7 days a month blood sugar diagnostic (FREESTYLE LITE STRIPS) test strip Test blood sugar(s) 3 times daily. Dx: Type 2 DM - Controlled E11.9 Insulin: No No current facility-administered medications for this visit. ALLERGIES Allergen Reactions Augmentin [Amoxicil* Mental Status Change Shellfish Swelling Tylenol #3 [Codeine] Swelling Venom-Honey Bee Swelling PAST MEDICAL HISTORY Diagnosis Date Diabetes mellitus of mother, complicating , childbirth, or the puerperium, unspecified as to episode of care(648.00) Gestational diabetes Dysthymic disorder Depression (non-psychotic), Essential hypertension, benign Hemorrhoids 05/19/2011 History of gestational diabetes 10/31/2012 10/31/2012Patient had gestational diabetes with her last 2 pregnancies. She was on glyburide with the that she delivered in 2009. She was insulin- dependent her last . She deliveredboth of those pregnancies in [place]. Patient is obese. 3 hour G TT ordered by Dr. Jennings. Migraine, unspecified, with intractable migraine, so stated, without mention of status migrainosus Migraine Nipple discharge 02/19/2016 PMH - PAST MEDICAL HISTORY OF DYSLEXIA PMH - PAST MEDICAL HISTORY OF 1988 FRACTURED LEFT LEG PMH - PAST MEDICAL HISTORY OF 01/2007 HOSPITALIZED FOR RUPTURED OVARIAN CYST Psychogenic nonepileptic seizure 10/20/2022 SPINAL HEADACHE WITH DELIVERIES IN 2009&2012 Type 2 diabetes mellitus (HCC) Unspecified asthma(493.90) PAST SURGICAL HISTORY Procedure Laterality Date DELIVERY ONLY 2008,10/14/2009 , low cervicalx2 DELIVERY ONLY 06/06/2013 , low transverse COLONOSCOPY FLX DX W/COLLJ SPEC WHEN PFRMD 11/28/2013 Colonoscopy ESOPHAGOGASTRODUODENOSCOPY TRANSORAL DIAGNOSTIC 11/28/2013 EGD HYSTEROSCOPY BX W/WO D&C 08/14/2019 hysteroscoy D&C w/ mirena insertion LIG/TRNSXJ FLP TUBE ABDL/VAG APPR UNI/BI 06/06/2013 Tubal ligation REMOVAL OF GALLBLADDER 10/07/2018 theresa [place] REPAIR UMBILICAL HERNIA 06/20/[address] medium mesh [facility] FAMILY HISTORY Problem Relation Age of Onset Hypertension Father Diabetes Father Lipids Father Asthma Mother Hypertension Mother Breast Cancer Mother Diabetes Mother Strabismus Sister Cancer Maternal Grandfather LUNG CANCER Heart Maternal Grandmother SD Cancer Paternal Grandfather THROAT CANCER Breast Cancer Maternal Aunt Breast Cancer Paternal Aunt Coronary Artery Disease No Family History Thyroid No Family History Blood Disease No Family History Blood Clots No Family History Factor 5 Leiden No Family History DVT No Family History Stroke No Family History Systemic Lupus Erythematosus No Family History Multiple Sclerosis No Family History Bipolar disorder No Family History Schizophrenia No Family History Alzheimer's Disease No Family History Dementia No Family History Parkinson s Disease No Family History Aneurysm No Family History COPD No Family History Kidney Disease No Family History Seizures No Family History SOCIAL HISTORY: -Lives in [place], [place] -Patient lives alone? No -Vocation: -Education: High school graduate (includes GED) -Cigarette, alcohol, substance use: see history -Functional status: independent in activities of daily living -Patient driving? No Review of Systems VITAL SIGNS: LMP 09/27/2022 (Exact Date) General Examination: General Exam Neurological Exam Reflexes Deep tendon reflexes graded by MRC IMPRESSION: Impression from inpatient consultation: 37 year old woman presents with recurrent events of right sided weakness and numbness associated with convulsive activity and loss of awareness since May 2013. These occurred following a and report of a stroke. However, review of MRI brain images in [facility] in Aug 2013 were negative for stroke. She was started on Trileptal at the time for possible epilepsy. She stopped it in 2013 and episodes recurred in Nov 2018 until December 2019. She presents with similar events now and right sided weakness. A typical event was captured on routine EEG and video. This was reviewed. 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 I attempted to reach the patient to discuss diagnosis but she was in MRI for imaging. Recommendations: Stop OXC She will need CBT with Dr. Sánchez Will defer need for psychiatry during inpatient admission to primary team MRI brain is pending but low suspicion for stroke I will reattempt to contact the patient to discuss diagnosis She does not need follow up with epilepsy Interval Impression: Stable from last visit. Asking for letter. PNES remains as same frequency. PLAN: 1. Will contact Nafisa HIGUERA to update work letter 2. CBT for PNES- 12 week program begins on December 26 3. Follow up with Dr. Gandhi in 4 months I discussed the risks, benefits and alternatives of the medical plan with the patient. Questions were answered. The patient agreed with the plan as discussed. FOLLOW-UP: Return in about 4 months (around 04/19/2023) for Dr. gandhi. I spent a total of 15 minutes on the date of the service which included: completing clinical documentation [id number] patient care preparing to see the patient counseling and educating the patient/family/caregiver Cinthia Reed PA-C cc: Primary Care Physician: Sharon Foster MD [id number] [facility] [place] [address] Referring: Patient: Ms. Reinaldo Warren [address] [facility] [id number] [facility]23 Miscellaneous Notes* Telephone Encounter - Sharon Foster MD - 12/15/2022 4:40 PM EST Guessing she means she's asking for a recommendation for a family Dr closer to home in [place]. Shemight consider the [facility] primary care group as they have the same records and can see the [facility]'s records. Sharon Foster MD documented in this [facility]Flower [facility]03-10-2023 Miscellaneous Notes* Telephone Encounter - Angie Ponce - 12/15/2022 4:05 PM EST Pharmacy calls to request corrected sig for paroxetine. [facility] [phone]. The following medication(s) is being requested: LAST APPT - today NEXT APPT - 4..23 Requested Prescriptions Pending Prescriptions Disp Refills PARoxetine (PAXIL) 20 mg tablet 90 tablet 0 Sig: Take 1 tablet by mouth once daily. Take with 40 mg tablet for total dosage of 60 mg. PARoxetine (PAXIL) 40 mg tablet 90 tablet 0 Sig: Take 1 tablet by mouth once daily. Take with 20 mg tablet for total dosage of 60 mg. Please process accordingly Angie A Kris documented in this [facility]03-07-2023 Miscellaneous Notes* Telephone Encounter - Angie Edgar Ponce - 12/12/2022 12:56 PM EST Pharmacy requests 90 day supply. The following medication(s) is being requested: LAST APPT - 2 NEXT APPT - 3 Requested Prescriptions Pending Prescriptions Disp Refills PARoxetine (PAXIL) 10 mg tablet [Pharmacy Med Name: PAROXETINE HCL 10 MG TABLET] 90 tablet 0 Sig: Take 1 tablet by mouth once daily. With 40 mg tablet for total of 50 mg daily Please process accordingly Angie Ponce documented in this [facility]02-28-2023 Miscellaneous Notes* Telephone Encounter - Rosemary Correa - 12/05/2022 2:57 PM EST Provider wrote script 11/17/22 with 2 refill. Rosemary Correa December 05, 2022 2:58 PM documented in this [facility]02-27-2023 Miscellaneous Notes* Telephone Encounter - Rosemary Correa - 12/04/2022 11:05 AM EST The following medication(s) is being requested: By the pharmacy LAST APPT - 11/17/22 NEXT APPT - 12/15/22 Requested Prescriptions Pending Prescriptions Disp Refills traZODone (DESYREL) 50 mg tablet [Pharmacy Med Name: TRAZODONE 50 MG TABLET] 90 tablet 0 Sig: TAKE 1/2 TO 1 TABLET BY MOUTH AT BEDTIME NEEDED FOR SLEEP Please process accordingly Rosemary Correa documented in this encounterFlower Hospital02-15-2023 History of Present illness Narrative* Tita Underwood, PSYD - 11/22/2022 1:01 PM EST PSYCHOLOGY NOTE: Virtual visit This psychotherapy session was conducted virtually using [facility]. Consent related to virtual visit was provided verbally after information was read to patient. Current location: pt's home- address confirmed on file Emergency contact: Pt's - contact confirmed on file S/O: This is a 37 year old patient with nonepileptic seizures/conversion disorder in counseling for management of symptoms. CBT Workbook Taking Control of PNES Pt was informed that follow up with this provider could not be offered at this time. She indicated uncertainty about next steps and requested additional information regarding the diagnosis of PNES.Pt was shown Psychology Today website and accepted recommendations to resume psychiatric care with a local provider. MENTAL STATUS EXAM: The patient was alert, oriented x3. Eye contact was good. Affect was full and mood congruent. Judgment/insight was good. The patient reported having depressed mood. SI/HI was denied ASSESSMENT 11/22/22 - PHQ-2 Score: 2 PHQ-9 Score: 9 Depression Screening 04/23/2020 07/01/2020 02/16/2021 11/22/2022 PHQ-2 Score 4 2 2 2 PHQ-9 Score 21 16 6 9 MILENA-2 Total Score 6 - - 2 MILENA-7 Total Score 19 - - - DIAGNOSIS (PROVISIONAL) AXIS I: 1. Functional Neurological Symptom Disorder TREATMENTGOALS: Decrease seizure frequency Decrease symptoms of Anxiety/depression and other stress reactions Increase identification of emotions and emotional regulation Learn healthy tools for emotional release Set healthy boundaries with others Set healthy boundaries with self Increase tools related to communication Increase interest in activities/interest in life Increase healthy lifestyle routines (sleep, exercise, schedule) Develop mindfulness/meditation practice(s) Increase healthy choices with food Increase physical activity Explore and engage in activities that align with interests PLAN: Pt is enrolled in a psychoeducational group for PNES/stress management to begin in December. She was also advised to begin supportive psychotherapy to begin addressing history of trauma. Time spent with patient: 45 minutes Tita Underwood PsyD Clinical Psych[facility] documented in this encounterF[facility]02-07-2023 Miscellaneous Notes* Telephone Encounter - Abby Vallejo - 11/14/2022 10:16 AM EST Alternative requested by pharmacy. Must use mail service for fill 90 days. The following medication(s) is being requested: LAST APPT - 09/26/22 NEXT APPT - 11/17/22 Requested Prescriptions Pending Prescriptions Disp Refills traZODone (DESYREL) 50 mg tablet 30 tablet 1 Sig: TAKE 1/2 TO 1 TABLET BY MOUTH AT BEDTIME NEEDED FOR SLEEP Please process accordingly Abby Vallejo documented in this encounterFlower Hospital02-07-2023 Miscellaneous Notes* Telephone Encounter - Rosemary Correa - 11/14/2022 8:48 AM EST The following medication(s) is being requested: By the patient LAST APPT - 09/26/22 NEXT APPT - 11/17/22 Requested Prescriptions Pending Prescriptions Disp Refills traZODone (DESYREL) 50 mg tablet [Pharmacy Med Name: TRAZODONE 50 MG TABLET] 30 tablet 1 Sig: TAKE 1/2 TO 1 TABLET BY MOUTH AT BEDTIME NEEDED FOR SLEEP Please process accordingly Rosemary Correa documented in this encounterF[facility] Hospital01-25-2023 Miscellaneous Notes* Telephone Encounter - Nafisa Bo RN - 11/01/2022 11:50 AM EST Copy of letter faxed to number below Nafisa Bo RN * Telephone Encounter - Noreen Maynard - 11/01/2022 11:40 AM EST General call : Full name of person calling: Reinaldo Warren Relationship to patient: self Phone # : [phone] (home) Reason for call: return to work letter also needs to be faxed to HR: [phone] [facility]. Patient of Dr. Gandhi documented in this encounterFlower Hospital01-18-2023 Miscellaneous Notes* Telephone Encounter - Nafisa Bo RN - 10/25/2022 10:52 AM EST Letter drafted and routed to Dr. Gandhi for signature thru [employer]ocus[employer]. One copy faxed to [phone] Nafisa Bo RN documented in this encounterFlower Hospital01-13-2023 NoteHNO ID: [id number] Author: Sharmin Gandhi MD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 tablet Take 1 tablet by mouth as directed. for 7 days a month 7tablet 12 blood sugar diagnostic (FREESTYLE LITE STRIPS) test strip Test blood sugar(s) 3 times daily. Dx: Type 2 DM - Controlled E11.9 Insulin: No 100 Strip 3 Blood Pressure Test Kit-Large Check blood pressure weekly and as needed. 1 Each 0 No current facility-administered medications for this visit. ROS: PSYCH: See HPI NEURO: SEE HPI All other systems negative. PFSH: See HPI VITAL SIGNS: There were no vitals filed for this visit. MENTAL STATUS EXAM: CONSTITUTIONAL: Well groomed, Appropriately dressed, Casually dressed, Well developed, Well nourished ORIENTATION: Person, Place, Time and Situation MEMORY: No deficiencies noted CONCENTRATION: Normal MOOD: flat AFFECT: Blunted SPEECH : Clear & distinct LANGUAGE : Normal ASSOCIATIONS: Intact THOUGHT PROCESS : Logical, Coherent, and Rational PROGRESSION : There was no evidence of disturbance in thought perception or progression. FUND OF KNOWLEDGE : Appropriate and Adequate SUICIDE: Denies suicidal thoughts, plan, or intent. HOMICIDE: Denies homicidal thoughts, plan, or intent. DATA REVIEWED: Electronic medical record DIAGNOSIS: PRIMARY: Anxiety Disorder Posttraumatic Stress Disorder - Chronic GAF: 60 -60-51 Moderate symptoms or moderate difficulty in social, occupational or school functioning. TREATMENT PLAN: Reviewed symptoms, medications and their side effects, labs, and progress being made. Discussed life situations and coping skills Support and encouragement provided PLAN AND FOLLOW UP: If any acute concerns arise please call 911 or go to the nearest Emergency Department. Medications: Continue: --Paxil 40 mg once daily --Rexulti (brexpiprazole) 1.5 mg once daily --hydroxyzine 25 mg three times daily as needed for anxiety (may take 1/2 tablet) Change: --buspar (buspirone) 10 mg twice to three times daily Lab work: --last done 08/23/22 Other: --strongly encouraged to continue therapy - discussed possibly considering EMDR for PTSD --encouraged to follow up on referral for sleep medicine Next appointment: --Schedule in 4 weeks or sooner if needed --Call [phone] to schedule next appointment or for questions call [phone] option 3 as needed; call sooner as needed. --Message in [employer] any questions or concerns. MEDICATION CHANGES: Prescriptions given see above for any changes Follow Up: 4 weeks I spent a total of 25 minutes on the date of the service which included preparing to see the patient, [id number] patient care, completing clinical documentation, performing a medically appropriate examination, counseling and educating the patient/family/caregiver and ordering medications, tests, or procedures. ADD ON PSYCHOTHERAPY CODE : No SIGNATURE: Jeanette Miller APRN.CNP PATIENT NAME: Reinaldo Warren DATE: August 28, 2022 TIME: 1:34 PM PAGER: [facility] History of Present illness Narrative* Lulu Kaur RN - 08/24/2022 6:37 PM EST TRANSITIONAL CARE MANAGEMENT (TCM) COMMUNITY MONITORING PROGRAM Provider Action/FYI: Spoke to patient. Pt is doing the same. Denies need for f/u with PCP No new medications Denies questions or concerns. Pt has no upcoming PCP appts in the next 60 days at this time. Appointments for Next 60 Days Date Time Provider Location Dept Phone 08/24/2022 9:30 AM JEANETTE MILLER [facility] [phone] 08/25/2022 8:00 AM CESAR PARKS JR [facility] [phone] 08/28/2022 1:30 PM JEANETTE MILLER [facility] [phone] 09/25/2022 9:00 AM BRITTANY SÁNCHEZ [facility] [phone] SUMMARY: Pt discharged from [place] on 08/23/22. Admitted for: Altered Mental Status Contact made with patient: Yes Hi my name is Lulu Kaur RN and I am calling [facility] the [facility] on behalf of your PCP, Sharon Foster MD I understand you were recently in the hospital so I am calling to check in with you to ensure you are feeling well now that you're home. May I ask you a few questions related to your hospital stay and well-being? Yes Contact with patient post discharge, spoke to patient. Patient identified by name and . Do you feel your health is BETTER, WORSE, or the SAME since leaving the hospital? Same ACTION TAKEN: Patient indicated symptoms are better or same, no action required. Continue outreach. MEDICATIONS: Many patients have questions or concerns about their medications once they are home. Do you have any questions about taking your medications or which medication you should be on? No Do you need any medication refills at this time, including any of the medications you might take only when needed? No ACTION TAKEN: No action required For RNs or Pharmacy completing outreach ONLY, was a medication review completed? Yes SOCIAL: We would like to make sure you have what you need so that your basics needs are met - including your personal safety, food, housing and medications. Would you like to speak with a social work help desk team leader to help give you support for any of these needs? No It can be normal to feel anxious or down during a time like this. Would you like to talk to a mental health professional about how you have been feeling? No ACTION TAKEN: No action taken DISCHARGE INTRUCTIONS: Your discharge instructions / After Visit Summary (AVS) are important in guiding you through the recovery process. Do you have any questions related to your discharge instructions? No Do you have all the necessary equipment and supplies at home? Yes ACTION TAKEN: No action required I would like to help you schedule a hospital follow-up virtual or telephone visit with your PCP. This is a great way for you to connect with your provider to ensure you have safely transitioned home.If you are agreeable, I will send your request to a scheduler maintenance who will contact and assist you with that appointment. This will give you an opportunity to ask any questions or address any concerns youmay have with your PCP. Inform the patient that if they have any questions or concerns prior to that appointment, to call their PCP's office right away. ACTION TAKEN: No action required, patient declines appointment. Your doctor would like us to remind you of the recommendations regarding the coronavirus (Covid19) outbreak: Avoid public places as much as possible. Avoid close contact (within 6 feet) with others you don t live with, especially if they are sick. Stay home if you are sick. Wash your hands regularly for at least 20 seconds with soap and water. Wear a cloth mask in public places to help reduce community spread. Do not go to your Doctor s office unless instructed to do so. For any non- emergency symptoms, call your Doctor s office to get instructions on how to manage (we might recommend a telephone or virtualvisit). For emergency symptoms, proceed to Emergency Department as usual but inform them of cough and fever symptoms MICHELLE if present (or call on the way if possible). Lulu Kaur RN * Lorrie Altamirano RN - 08/24/2022 8:59 AM EST TCM Home Visit Referral Source of Stratification: [facility] Admission Status: Discharged Readmission Risk Score: 27 LIAM Score: 7 Patient meets program referral criteria: No Patient does not qualify for High Risk TCM Home Visit program due to: Discharged home, does not meet program criteria Lorrie Altamirano RN August 24, 2022 8:59 AM TRANSITIONAL CARE MANAGEMENT (TCM) COMMUNITY MONITORING PROGRAM Provider Action/FYI: Attempted initial outreach to pt for hospital discharge. No answer, left VM to return my call. Willattempt to outreach to pt again later today or tomorrrow if no return call from pt. 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 Admitted for: altered mental status Contact made with patient: No - next outreach attempt will be on next business day Outreach ended [facility]11-[facility] History of Present illness Narrative* Yolanda Delarosa, [facility] - 08/24/2022 9:24 AM EST TRANSITION CARE MANAGEMENT (TCM) PHARMACY CONTACT Provider Action/FYI: Medication reconciliation services declined due to patient preference. TCM medication reconciliation incomplete at this time Initial contact with patient post discharge, spoke to patient. Patient identified by name and . Summary: -Pt discharged from [place] on 08/23/22. -Follow up appointment on 08/24 with [facility] - pt rescheduling . -Medication review done: Declined at this time per patient preference -Admitted for Confusion Patient was contacted by telephone, identified for pharmacist care from discharge call list, and gave consent to manage medications related to transitional care management pursuant to the consult agreement with the [facility] [place]. Patient Concerns: Medication reconciliation services declined due to patient preference. TCM medication reconciliation incomplete at this time. History of Present Illness: The following content has been copied and pasted from patient's discharge summary. If discharge summary unavailable, After Visit Summary or last pertinent inpatient notes are copied and pasted. Additional Provider to Provider Information: Patient is a 37-year-old female admitted for an episode of confusion. EEG was benign. MRI was benign. 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 It was recommended to talk to a psychiatrist outpatient, and the phone number was given to them to make an appointment. Medication Reconciliation: Legend: Stopped, New, Changed, Added to list Medication List Medication Directions Comments Action/Plan albuterol HFA (PROAIR HFA) 90 mcg/actuation inhaler Inhale 2 Puffs as instructed every 4 hours as needed for wheezing/shortness of breath. Blood Pressure Test Kit-Large Check blood pressure weekly and as needed. blood sugar diagnostic (FREESTYLE LITE STRIPS) test strip Test blood sugar(s) 3 times daily. Dx: Type 2 DM - Controlled E11.9 Insulin: No brexpiprazole (REXULTI) 1 mg tablet Take 1.5 tablets by mouth once daily. busPIRone (BUSPAR) 10 mg tablet Take 1 tablet by mouth twice daily. cyclobenzaprine (FLEXERIL) 10 mg tablet Take 1 tablet by mouth three times daily as needed for muscle spasm. dulaglutide (TRULICITY) 1.5 mg/0.5 mL pen injector Inject 1.5 mg subcutaneously one time a week. FIASP FLEXTOUCH U-100 INSULIN 100 unit/mL (3 mL) pen INJECT 8 UNITS SUBCUTANEOUSLY THREE TIMES DAILY BEFORE MEALS. flash glucose scanning reader (FREESTYLE EVERARDO 2 READER) To use with the freestyle everardo sensor. Uncontrolled type 2 diabetes hydrOXYzine HCl (ATARAX) 25 mg tablet Take 1 tablet by mouth three times daily as needed for anxiety. May take 1/2 tablet insulin glargine (BASAGLAR KWIKPEN U-100 INSULIN) 100 unit/mL (3 mL) Inject 20 units SQ daily at bedtime. Hemoglobin A1C (%) Date Value 08/20/2022 6.6 08/05/2021 8.2 Hemoglobin A1C (POCT) (%) Date Value 11/18/2021 5.0 Lancets lancets Test blood sugar(s) 4 times daily. Dx: Type 2 DM - Uncontrolled E11.65 Insulin: Yes lisinopril (ZESTRIL, PRINIVIL) 40 mg tablet TAKE 1 TABLET BY MOUTH EVERY DAY Potassium Date Value Ref Range Status 08/23/2022 4.0 3.7 - 5.1 mmol/L Final medroxyPROGESTERone (PROVERA) 10 mg tablet Take 1 tablet by mouth as directed. for 7 days a month midodrine (PROAMITINE) 5 mg tablet Take 1 tablet by mouth three times daily. PARoxetine (PAXIL) 40 mg tablet Take 1 tablet by mouth once daily. Preferred pharmacy: e- [facility]/pharmacy #[id number] [place] [address] - [phone] [facility] - [phone] [place] [id number] Estimated Creatinine Clearance: 132.5 mL/min (based on SCr of 0.68 mg/dL). Estimated Glomerular Filtration Rate (mL/min/1.73m ) Date Value 08/23/2022 115 eGFR- (no units) Date Value 08/13/2021 >60 ALLERGIES Allergen Reactions Augmentin [Amoxicil* Mental Status Change Shellfish Swelling Tylenol #3 [Codeine] Swelling Venom-Honey Bee Swelling PAST MEDICAL HISTORY Diagnosis Date Diabetes mellitus of mother, complicating , childbirth, or the puerperium, unspecified as to episode of care(648.00) Gestational diabetes Dysthymic disorder Depression (non-psychotic), Essential hypertension, benign Hemorrhoids 05/19/2011 History of gestational diabetes 10/31/2012 10/31/2012Patient had gestational diabetes with her last 2 pregnancies. She was on glyburide with the that she delivered in 2009. She was insulin- dependent her last . She deliveredboth of those pregnancies in [place]. Patient is obese. 3 hour G TT ordered by Dr. Jennings. Migraine, unspecified, with intractable migraine, so stated, without mention of status migrainosus Migraine Nipple discharge 02/19/2016 PMH - PAST MEDICAL HISTORY OF DYSLEXIA PMH - PAST MEDICAL HISTORY OF 1988 FRACTURED LEFT LEG PMH - PAST MEDICAL HISTORY OF 01/2007 HOSPITALIZED FOR RUPTURED OVARIAN CYST Seizure disorder (HCC) Seizures (HCC) SPINAL HEADACHE WITH DELIVERIES IN 2009&2011 Type 2 diabetes mellitus (HCC) Unspecified asthma(493.90) Social History Tobacco Use Smoking status: Former Packs/day: 0.50 Years: 10.00 Pack years: 5.00 Types: Cigarettes Quit date: 04/02/2019 Years since quittin.3 Smokeless tobacco: Never Vaping Use Vaping Use: Never used Substance Use Topics Alcohol use: No Drug use: Never Immunization History Administered Date(s) Administered Hepatitis B Adult 11/06/2019 12/08/2019 Influenza Seasonal Inj Quad Age 6 Mo - 64 Yrs 10/07/2018 07/03/2019 Influenza Seasonal Inj Quad Age 6 Mo-64 Yrs Pres Free 10/07/2018 Influenza Vaccine, Split-Non Spec 09/12/2007 08/26/2009 07/08/2013 Meningococcal Conj IM Unspec 02/14/2006 Tdap (Age 7+) 03/29/2013 10/13/2019 measles mumps rubella (MMR) vaccine (M-M-R II, PRIORIX) 06/08/2013 11/17/2019 Additional follow up: Appointments for Next 60 Days Date Time Provider Location Dept Phone 08/24/2022 9:30 AM [facility] [phone] 08/25/2022 8:00 AM CESAR PARKS JR [facility] [phone] Interventions Made: None Pharmacist Recommendations Made None Care Coordination: None at this time Time spent on patient: 0-15 minutes Yolanda Delarosa RPh August 24, 2022 9:24 AM documented in this [facility]11-16-2022 NoteHNO ID: [id number] Author: Carlos Shaffer RPh Service: Pharmacy Author Type: Pharmacist Type: Plan of Care Filed: 08/23/2022 2:50 PM Note Text: DISCHARGE MEDICATION REVIEW BY PHARMACY Patient Name: Reinaldo Warren Account #: Data Unavailable Admission Date: 08/20/2022 Date of Contact: August 23, 2022 Time of Contact: 2:47 PM Medication list was reviewed by a Pharmacist for drug interactions or drug related problems:Yes Below is a summary of pharmacist recommendations discussed with LIP: No Recommendations at this time from Discharge Medication List. PT to be discharged home with no significant medication changes. Per Dr. Gandhi- recommend no AED in the setting of PNES. Will follow-up with neurology as an outpatient. Psych medication have remained the same as recommended per inpatient Psychiatry. Carlos Shaffer RPh August 23, 2022 2:47 PM Pager: [phone] 08/23/2022 2:47 PM Medication List CONTINUE taking these medications albuterol HFA 90 mcg/actuation inhaler Commonly known as: PROAIR HFA Inhale 2 Puffs as instructed every 4 hours as needed for wheezing/shortness of breath. BASAGLAR KWIKPEN U-100 INSULIN 100 unit/mL (3 mL) Generic drug: insulin glargine Inject 20 units SQ daily at bedtime. Blood Pressure Test Kit-Large Check blood pressure weekly and as needed. brexpiprazole 1 mg tablet Commonly known as: REXULTI Take 1.5 tablets by mouth once daily. busPIRone 10 mg tablet Commonly known as: BUSPAR Take 1 tablet by mouth twice daily. cyclobenzaprine 10 mg tablet Commonly known as: FLEXERIL Take 1 tablet by mouth three times daily as needed for muscle spasm. FIASP FLEXTOUCH U-100 INSULIN 100 unit/mL (3 mL) pen Generic drug: insulin aspart (niacinamide) INJECT 8 UNITS SUBCUTANEOUSLY THREE TIMES DAILY BEFORE MEALS. FREESTYLE EVERARDO 2 READER Generic drug: flash glucose scanning reader To use with the freestyle everardo sensor. Uncontrolled type 2 diabetes FREESTYLE LITE STRIPS test strip Generic drug: blood sugar diagnostic Test blood sugar(s) 3 times daily. Dx: Type 2 DM - Controlled E11.9 Insulin: No hydrOXYzine HCl 25 mg tablet Commonly known as: ATARAX Take 1 tablet by mouth three times daily as needed for anxiety. May take 1/2 tablet Lancets lancets Test blood sugar(s) 4 times daily. Dx: Type 2 DM - Uncontrolled E11.65 Insulin: Yes lisinopril 40 mg tablet Commonly known as: ZESTRIL, PRINIVIL TAKE 1 TABLET BY MOUTH EVERY DAY medroxyPROGESTERone 10 mg tablet Commonly known as: PROVERA Take 1 tablet by mouth as directed. for 7 days a month midodrine 5 mg tablet Commonly known as: PROAMITINE Take 1 tablet by mouth three times daily. PARoxetine 40 mg tablet Commonly known as: PAXIL Take 1 tablet by mouth once daily. TRULICITY 1.5 mg/0.5 mL pen injector Generic drug: dulaglutide Inject 1.5 mg subcutaneously one time a week.[facility] 08-23-2022 NoteHNO ID: [id number] Author: Dina Noyola APRN.[facility] Service: Neurology General Author Type: Nurse Practitioner Type: Plan of Care Filed: 08/23/2022 11:31 AM Note Text: General Neurology Plan of Care EEG and MRI brain both unremarkable. No further neurology workup warranted at this time. Neuro will sign off at this time. Encourage patient to follow up with psychiatry and participate in CBT. Please page [phone] if there are any questions. Dina Noyola APRN.[facility]11-16-2022 NoteHNO ID: [id number] Author: Sharmin Gandhi MD Service: Neurology Adult Epilepsy Author Type: Physician Type: Plan of Care Filed: 08/23/2022 8:03 AM Note Text: I called the patient this morning to her room. She was able to speak to me clearly. I explained the diagnosis of PNES to her. She said, this makes sense. She alluded to prior PTSD and traumatic events in her life. This is a risk factor for PNES. She agreed to pursue CBT with Dr. Sánchez's office. I will make a referral and my office will call to set this up with the patient. Recommendations: Continue to hold OXC Referral place to Dr. Sánchez office for CBT Will defer need for psychiatry during inpatient admission to primary team She does not [facility] NoteHNO ID: [id number] Author: Sharmin Gandhi MD Service: Neurology Adult Epilepsy Author Type: Physician Type: Plan of Care Filed: 08/22/2022 8:15 PM Note Text: MRI brain images reviewed and normal. Final report is pending. Attempts to reach the patient failed. Recommendations: - No indication for AED, continue to hold OXC - Suggest psychiatry as inpatient to discuss diagnosis of PNES followed by referral to CBT - I will sign off. Please call/chat with questions.[facility] 08-22-2022 NoteHNO ID: [id number] Author: Dennis Welch MD Service: Hospital Medicine Author Type: Physician Type: Progress Notes Filed: 08/22/2022 4:15 PM Note Text: DEPARTMENT OF HOSPITAL MEDICINE PROGRESS NOTE SERVICE DATE: 08/22/2022 SERVICE TIME: 4:02 PM Hospital Medicine/Primary Attending: Dennis Ceron MD NIGHT AND WEEKEND COVERAGE: After 7pm please page [phone] SUBJECTIVE: patient continues to be lethargic and weak , right sided weakness on exam today Confused /oriented x2 Had nausea and vomiting in AM OBJECTIVE: PHYSICAL EXAM: BP 130/81 Pulse 95 Temp (Src) 98.6 (Oral) Resp 19 Ht 5' 5 (1.65m) Wt 220 lb 0.3 oz (99.8kg) SpO2 100% LMP 02/05/2022 BMI 36.61 kg/(m2). O2 Therapy: Room Air General: NAD, Lethargic , right sided weakness , speech intact Resp: Clear to auscultation B/L, no wheeze/rhonchi, unlabored CV: RRR, Normal S1S2, No murmur/rub/gallop GI: soft, NT/ND, + BS Ext: no cyanosis/clubbing/edema Neuro: AANDO x 2, speech fluent MEDICATIONS: Current Facility-Administered Medications Medication Dose Route Frequency iv contrast (radiology procedure) INTRAVENOUS DIRECTED PRN ondansetron (PF) 4 mg injection (ZOFRAN) 4 mg INTRAVENOUS q 6 H PRN docusate sodium 100 mg cap(s) (COLACE) 100 mg ORAL BID PRN albuterol HFA 90 mcg/actuation 2 Puff (PROVENTIL HFA, VENTOLIN HFA) 2 Puff INHALATION q 4 H PRN OXcarbazepine 150 mg tab(s) (TRILEPTAL) 150 mg ORAL BID enoxaparin 40 mg injection (LOVENOX) 40 mg SUBCUTANEOUS q 24 HR NaCl 0.9% iv flush bag 20 mL INTRAVENOUS PRN sodium chloride 0.9 % (flush) 3-5 mL (BD POSIFLUSH) 3-5 mL INTRAVENOUS q 12 H midazolam (PF) 2 mg injection (VERSED) 2 mg INTRAVENOUS q 5 MIN PRN dextrose 15 gram/32 mL 15 g (TRUEPLUS) 15 g ORAL PRN Or glucagon 1 mg injection 1 mg INTRAMUSCULAR PRN Or dextrose 10% iv bolus 12.5 g INTRAVENOUS PRN insulin lispro injection (rapid acting) (ADMELOG) SUBCUTANEOUS w MEALS midazolam (PF) 5 mg injection (VERSED) 5 mg INTRAMUSCULAR q 24 H PRN acetaminophen 650 mg tab(s) (TYLENOL) 650 mg ORAL q 4 H PRN lisinopril 20 mg tab(s) (ZESTRIL, PRINIVIL) 20 mg ORAL DAILY DATA: Diagnostic tests reviewed for today's visit: CBC, Coags, BMP, Mg, Phos Recent Labs 08/21/22 0621 08/20/22203308/20/22 1254 WBC -- -- 6.61 HB -- -- 12.7 HCT -- -- 37.8 PLT -- -- 221 INR -- -- 1.0 APTT -- -- 21.6* NA 135* -- 132* K 4.1 -- 3.7 CHLOR 100 -- 96* CO2 25 -- 24 BUN 8 -- 7 CREAT 0.60 -- 0.61 GLUC 189* -- 277* CA 8.7 -- 8.9 MG -- 1.8 -- CSF AND Dilantin Liver Function, Amylase, AND Lipase Recent Labs 08/20/22203322 1510 08/20/22 1413 LACT 2.0 2.3* 2.8* Cardiac Enzymes ABGs Problem List AMS (altered mental status) POA: Yes This is a 37 year old female with past medical history significant for diabetes, stroke and seizure disorder who presented with altered mental status. Patient was at [employer] when she reportedly had 2 seizure-like events where she froze up and had some mild shaking. Patient is not compliant with her seizure meds. Patient has been lethargic , weak and confused since then . Right sided weakness on exam today 08/22 Neurology follows , EEG negative ,One episode of body stiffening and head shaking was recorded, without EEG correlate to suggest epileptic seizure. Recommendation to continue OXC. Psych consulted due to history of anxiety and depression and recommendations to continue home dose of Paxil, Rexulti and Buspar . -Seizure -AMS/Delirium and lethargy MRI brain pending Continue trileptal Seizure precautions Neurology follows Will consult Epilepsy for further recs No concern of underlying infection with normal CHEST XR,UA and normal WBC. -Right sided weakness MRI brain pending CT head on admission with no acute findings -Lactic acidosis 2/2 to above Resolved -MDD/MILENA Pharmacy confirmed prior to admit meds brexpiprazole 1.5 mg daily, buspirone 10 mg bid, and paroxetine 40 mg daily. Psych consulted , and recommendations to continue same regimen . -DM Contrinue current meds Home dose of lantus and ISS VTE Prophylaxis: as appropriate Disposition: To be determined Plan of care discussed with: Provider, RN, Patient SIGNATURE: Dennis Welch MD PATIENT NAME: Reinaldo Warren PAGER/CONTACT #: valorie cortez [facility]11-14-2022 NoteHNO ID: [id number] Author: Dennis Welch MD Service: Hospital Medicine Author Type: Physician Type: Progress Notes Filed: 08/21/2022 4:57 PM Note Text: DEPARTMENT OF HOSPITAL MEDICINE PROGRESS NOTE SERVICE DATE: 08/21/2022 SERVICE TIME: 4:53 PM Hospital Medicine/Primary Attending: Dennis Ceron MD NIGHT AND WEEKEND COVERAGE: After 7pm please page [phone] SUBJECTIVE: feels weak , oriented x2 Denies CP/SOB. Denies nausea/vomiting/diarrhea. OBJECTIVE: PHYSICAL EXAM: BP 133/88 Pulse 95 Temp (Src) 98.2 (Axillary) Resp 18 Ht 5' 5 (1.65m) Wt 205 lb 4 oz (93.1kg) SpO2 95% LMP 02/05/2022 BMI 34.16 kg/(m2). O2 Therapy: Room Air General: NAD, appears comfortable Resp: Clear to auscultation B/L, no wheeze/rhonchi, unlabored CV: RRR, Normal S1S2, No murmur/rub/gallop GI: soft, NT/ND, + BS Ext: no cyanosis/clubbing/edema Neuro: AANDO x 3, speech fluent MEDICATIONS: Current Facility-Administered Medications Medication Dose Route Frequency albuterol HFA 90 mcg/actuation 2 Puff (PROVENTIL HFA, VENTOLIN HFA) 2 Puff INHALATION q 4 H PRN OXcarbazepine 150 mg tab(s) (TRILEPTAL) 150 mg ORAL BID enoxaparin 40 mg injection (LOVENOX) 40 mg SUBCUTANEOUS q 24 HR NaCl 0.9% iv flush bag 20 mL INTRAVENOUS PRN sodium chloride 0.9 % (flush) 3-5 mL (BD POSIFLUSH) 3-5 mL INTRAVENOUS q 12 H midazolam (PF) 2 mg injection (VERSED) 2 mg INTRAVENOUS q 5 MIN PRN dextrose 15 gram/32 mL 15 g (TRUEPLUS) 15 g ORAL PRN Or glucagon 1 mg injection 1 mg INTRAMUSCULAR PRN Or dextrose 10% iv bolus 12.5 g INTRAVENOUS PRN insulin lispro injection (rapid acting) (ADMELOG) SUBCUTANEOUS w MEALS midazolam (PF) 5 mg injection (VERSED) 5 mg INTRAMUSCULAR q 24 H PRN acetaminophen 650 mg tab(s) (TYLENOL) 650 mg ORAL q 4 H PRN lisinopril 20 mg tab(s) (ZESTRIL, PRINIVIL) 20 mg ORAL DAILY DATA: Diagnostic tests reviewed for today's visit: CBC, Coags, BMP, Mg, Phos Recent Labs 08/21/22 0621 08/20/22203308/20/22 1254 WBC -- -- 6.61 HB -- -- 12.7 HCT -- -- 37.8 PLT -- -- 221 INR -- -- 1.0 APTT -- -- 21.6* NA 135* -- 132* K 4.1 -- 3.7 CHLOR 100 -- 96* CO2 25 -- 24 BUN 8 -- 7 CREAT 0.60 -- 0.61 GLUC 189* -- 277* CA 8.7 -- 8.9 MG -- 1.8 -- CSF AND Dilantin Liver Function, Amylase, AND Lipase Recent Labs 08/20/22 2034 08/20/22 1510 08/20/22 1413 LACT 2.0 2.3* 2.8* Cardiac Enzymes ABGs Problem List AMS (altered mental status) POA: Yes -Seizure -AMS MRI brain pending Continue trileptal Seizure precautions Neurology follows -Lactic acidosis 2/2 to above Resolved -MDD/MILENA Pharmacy confirmed prior to admit meds brexpiprazole 1.5 mg daily, buspirone 10 mg bid, and paroxetine 40 mg daily. Will hold of on restarting and consult Psych for further eval . -DM Contrinue current meds VTE Prophylaxis: as appropriate Disposition: Home Plan of care discussed with: Provider, RN, Patient SIGNATURE: Dennis Welch MD PATIENT NAME: Reinaldo Warren DATE: August 21, 2022 TIME: 4:53 PM PAGER/CONTACT #: valorie cortez [facility] 08-20-2022 History of Past illness Narrative* Problem Noted Date Resolved Date AMS (altered mental status) 08/20/202208/08 Umbilical hernia 06/07/2017 08/14/2019 Overview: Added automatically from request for surgery [id number] Nipple discharge 02/19/2016 08/14/2019 Lump or mass in breast 02/19/2016 9 Abnormal glucose complicating 03/16/20 13 07/18/2013 Overview: One abnormally elevated value on 3 hour GTT LOC (loss of consciousness) 02/03/201307/08 Rubella non-immune status, antepartum 11/01/2012 07/18/2013 History of 10/31/2012 07/18/2013 Overview: 10/31/2012She had 3 previous C -Sections. She desires a repeat by Dr. Renee Manuel. History of gestational diabetes 10/31/2012 10/13/2020 Overview: 10/31/2012Patient had gestational diabetes with her last 2 pregnancies. She was on glyburide with the that she delivered in 2009. She was insulin- dependent her last . She delivered both of those pregnancies in [place]. Patient is obese. 3 hour G TT ordered by Dr. Jennings. History of hypertension 10/31/2012 08/14/20 Overview: 10/31/2012Nahed has seen Dr. Sorto for benign hypertension that was diagnosed in 2004. She has been off medication since April 2006. Reading difficulty 10/31/2012 08/14/2019 Overview: 10/31/2012Pt states she has trouble reading. She states she has dyslexia. Family history of defects 10/31/2012 08/14/2019 Overview: 10/31/2012 The FOB was born with cleft lip and so was his aunt as well. History of anesthesia complications 10/31/2012 07/18/2013 Overview: 10/31/2012Patient states she had a blood patch to treat her spinal headaches after the of her second child . Amenorrhea 10/15/2012 02/03/2013 Irregular menstrual bleeding 06/13/201208/2013 Postcoital bleeding 06/13/2012 09/26/2012 Hemorrhoids 05/19/2011 02/03/2013 Closed fracture of metacarpal bone(s), site unsp ecified 01/05/2010 02/03/2013 Glycosuria 07/06/2009 07/18/2013 documented as of this encounter (statuses as of 08/24/2022) [facility]11-13-2022 History of Past illness Narrative* Problem Noted Date Resolved Date AMS (altered mental status) 08/20/202208/08 Umbilical hernia 06/07/2017 08/14/2019 Overview: Added automatically from request for surgery [id number] Nipple discharge 02/19/2016 08/14/2019 Lump or mass in breast 02/19/2016 9 Abnormal glucose complicating 03/16/20 13 07/18/2013 Overview: One abnormally elevated value on 3 hour GTT LOC (loss of consciousness) 02/03/201307/08 Rubella non-immune status, antepartum 11/01/2012 07/18/2013 History of 10/31/2012 07/18/2013 Overview: 10/31/2012Nahed had 3 previous C -Sections. She desires a repeat by Dr. Renee Manuel. History of gestational diabetes 10/31/2012 10/13/2020 Overview: 10/31/2012Patient had gestational diabetes with her last 2 pregnancies. She was on glyburide with the that she delivered in 2009. She was insulin- dependent her last . She delivered both of those pregnancies in [place]. Patient is obese. 3 hour G TT ordered by Dr. Jennings. History of hypertension 10/31/2012 08/14/20 19 Overview: 10/31/2012Nahed has seen Dr. Sorto for benign hypertension that was diagnosed in 2004. She has been off medication since April 2006. Reading difficulty 10/31/2012 08/14/2019 Overview: 10/31/2012Pt states she has trouble reading. She states she has dyslexia. Family history of defects 10/31/2012 08/14/2019 Overview: 10/31/2012 The FOB was born with cleft lip and so was his aunt as well. History of anesthesia complications 10/31/2012 07/18/2013 Overview: 10/31/2012Patient states she had a blood patch to treat her spinal headaches after the of her second child . Amenorrhea 10/15/2012 02/03/2013 Irregular menstrual bleeding 06/13/201208/2013 Postcoital bleeding 06/13/2012 09/26/2012 Hemorrhoids 05/19/2011 02/03/2013 Closed fracture of metacarpal bone(s), site unsp ecified 01/05/2010 02/03/2013 Glycosuria 07/06/2009 07/18/2013 documented as of this encounter (statuses as of 08/28/2022) [facility]11-13-2022 History of Past illness Narrative* Problem Noted Date Resolved Date AMS (altered mental status) 08/20/202208/08 Umbilical hernia 06/07/2017 08/14/2019 Overview: Added automatically from request for surgery [id number] Nipple discharge 02/19/2016 08/14/2019 Lump or mass in breast 02/19/2016 9 Abnormal glucose complicating 03/16/20 13 07/18/2013 Overview: One abnormally elevated value on 3 hour GTT LOC (loss of consciousness) 02/03/201307/08 Rubella non-immune status, antepartum 11/01/2012 07/18/2013 History of 10/31/2012 07/18/2013 Overview: 10/31/2012Shrayna had 3 previous C -Sections. She desires a repeat by Dr. Renee Manuel. History of gestational diabetes 10/31/2012 10/13/2020 Overview: 10/31/2012Patient had gestational diabetes with her last 2 pregnancies. She was on glyburide with the that she delivered in 2009. She was insulin- dependent her last . She delivered both of those pregnancies in [place]. Patient is obese. 3 hour G TT ordered by Dr. Jennings. History of hypertension 10/31/2012 08/14/20 19 Overview: 10/31/2012Nahed has seen Dr. Sorto for benign hypertension that was diagnosed in 2004. She has been off medication since April 2006. Reading difficulty 10/31/2012 08/14/2019 Overview: 10/31/2012Pt states she has trouble reading. She states she has dyslexia. Family history of defects 10/31/2012 08/14/2019 Overview: 10/31/2012 The FOB was born with cleft lip and so was his aunt as well. History of anesthesia complications 10/31/2012 07/18/2013 Overview: 10/31/2012Patient states she had a blood patch to treat her spinal headaches after the of her second child . Amenorrhea 10/15/2012 02/03/2013 Irregular menstrual bleeding 06/13/201208/2013 Postcoital bleeding 06/13/2012 09/26/2012 Hemorrhoids 05/19/2011 02/03/2013 Closed fracture of metacarpal bone(s), site unsp ecified 01/05/2010 02/03/2013 Glycosuria 07/06/2009 07/18/2013 documented as of this encounter (statuses as of 08/29/2022) [facility]11-13-[facility] History of Past illness Narrative* Problem Noted Date Resolved Date AMS (altered mental status) 08/20/202208/08 Umbilical hernia 06/07/2017 08/14/2019 Overview: Added automatically from request for surgery [id number] Nipple discharge 02/19/2016 08/14/2019 Lump or mass in breast 02/19/2016 9 Abnormal glucose complicating 03/16/20 13 07/18/2013 Overview: One abnormally elevated value on 3 hour GTT LOC (loss of consciousness) 02/03/201307/08 Rubella non-immune status, antepartum 11/01/2012 07/18/2013 History of 10/31/2012 07/18/2013 Overview: 10/31/2012She had 3 previous C -Sections. She desires a repeat by Dr. Renee Manuel. History of gestational diabetes 10/31/2012 10/13/2020 Overview: 10/31/2012Patient had gestational diabetes with her last 2 pregnancies. She was on glyburide with the that she delivered in 2009. She was insulin- dependent her last . She delivered both of those pregnancies in [place]. Patient is obese. 3 hour G TT ordered by Dr. Jennings. History of hypertension 10/31/2012 08/14/20 19 Overview: 10/31/2012Nahed has seen Dr. Sorto for benign hypertension that was diagnosed in 2004. She has been off medication since April 2006. Reading difficulty 10/31/2012 08/14/2019 Overview: 10/31/2012Pt states she has trouble reading. She states she has dyslexia. Family history of defects 10/31/2012 08/14/2019 Overview: 10/31/2012 The FOB was born with cleft lip and so was his aunt as well. History of anesthesia complications 10/31/2012 07/18/2013 Overview: 10/31/2012Patient states she had a blood patch to treat her spinal headaches after the of her second child . Amenorrhea 10/15/2012 02/03/2013 Irregular menstrual bleeding 06/13/201208/2013 Postcoital bleeding 06/13/2012 09/26/2012 Hemorrhoids 05/19/2011 02/03/2013 Closed fracture of metacarpal bone(s), site unsp ecified 01/05/2010 02/03/2013 Glycosuria 07/06/2009 07/18/2013 documented as of this encounter (statuses as of 09/12/2022) [facility] History of Past illness Narrative* Problem Noted Date Resolved Date AMS (altered mental status) 08/20/202208/08 Umbilical hernia 06/07/2017 08/14/2019 Overview: Added automatically from request for surgery [id number] Nipple discharge 02/19/2016 08/14/2019 Lump or mass in breast 02/19/2016 9 Abnormal glucose complicating 03/16/20 13 07/18/2013 Overview: One abnormally elevated value on 3 hour GTT LOC (loss of consciousness) 02/03/201307/08 Rubella non-immune status, antepartum 11/01/2012 07/18/2013 History of 10/31/2012 07/18/2013 Overview: 10/31/2012Nahed had 3 previous C -Sections. She desires a repeat by Dr. Renee Manuel. History of gestational diabetes 10/31/2012 10/13/2020 Overview: 10/31/2012Patient had gestational diabetes with her last 2 pregnancies. She was on glyburide with the that she delivered in 2009. She was insulin- dependent her last . She delivered both of those pregnancies in [place]. Patient is obese. 3 hour G TT ordered by Dr. Jennings. History of hypertension 10/31/2012 08/14/20 Overview: 10/31/2012Nahed has seen Dr. Sorto for benign hypertension that was diagnosed in 2004. She has been off medication since April 2006. Reading difficulty 10/31/2012 08/14/2019 Overview: 10/31/2012Pt states she has trouble reading. She states she has dyslexia. Family history of defects 10/31/2012 08/14/2019 Overview: 10/31/2012 The FOB was born with cleft lip and so was his aunt as well. History of anesthesia complications 10/31/2012 07/18/2013 Overview: 10/31/2012Patient states she had a blood patch to treat her spinal headaches after the of her second child . Amenorrhea 10/15/2012 02/03/2013 Irregular menstrual bleeding 06/13/201208/2013 Postcoital bleeding 06/13/2012 09/26/2012 Hemorrhoids 05/19/2011 02/03/2013 Closed fracture of metacarpal bone(s), site unsp ecified 01/05/2010 02/03/2013 Glycosuria 07/06/2009 07/18/2013 documented as of this encounter (statuses as of 09/19/2022) [facility] History of Past illness Narrative* Problem Noted Date Resolved Date AMS (altered mental status) 08/20/202208/08 Umbilical hernia 06/07/2017 08/14/2019 Overview: Added automatically from request for surgery [id number] Nipple discharge 02/19/2016 08/14/2019 Lump or mass in breast 02/19/2016 9 Abnormal glucose complicating 03/16/20 13 07/18/2013 Overview: One abnormally elevated value on 3 hour GTT LOC (loss of consciousness) 02/03/201307/08 Rubella non-immune status, antepartum 11/01/2012 07/18/2013 History of 10/31/2012 07/18/2013 Overview: 10/31/2012Nahed had 3 previous C -Sections. She desires a repeat by Dr. Renee Manuel. History of gestational diabetes 10/31/2012 10/13/2020 Overview: 10/31/2012Patient had gestational diabetes with her last 2 pregnancies. She was on glyburide with the that she delivered in 2009. She was insulin- dependent her last . She delivered both of those pregnancies in [place]. Patient is obese. 3 hour G TT ordered by Dr. Jennings. History of hypertension 10/31/2012 08/14/20 19 Overview: 10/31/2012Nahed has seen Dr. Sorto for benign hypertension that was diagnosed in 2004. She has been off medication since April 2006. Reading difficulty 10/31/2012 08/14/2019 Overview: 10/31/2012Pt states she has trouble reading. She states she has dyslexia. Family history of defects 10/31/2012 08/14/2019 Overview: 10/31/2012 The FOB was born with cleft lip and so was his aunt as well. History of anesthesia complications 10/31/2012 07/18/2013 Overview: 10/31/2012Patient states she had a blood patch to treat her spinal headaches after the of her second child . Amenorrhea 10/15/2012 02/03/2013 Irregular menstrual bleeding 06/13/201208/2013 Postcoital bleeding 06/13/2012 09/26/2012 Hemorrhoids 05/19/2011 02/03/2013 Closed fracture of metacarpal bone(s), site unsp ecified 01/05/2010 02/03/2013 Glycosuria 07/06/2009 07/18/2013 documented as of this encounter (statuses as of 09/21/2022) [facility] History of Past illness Narrative* Problem Noted Date Resolved Date AMS (altered mental status) 08/20/202208/08 Umbilical hernia 06/07/2017 08/14/2019 Overview: Added automatically from request for surgery [id number] Nipple discharge 02/19/2016 08/14/2019 Lump or mass in breast 02/19/2016 9 Abnormal glucose complicating 03/16/20 13 07/18/2013 Overview: One abnormally elevated value on 3 hour GTT LOC (loss of consciousness) 02/03/201307/08 Rubella non-immune status, antepartum 11/01/2012 07/18/2013 History of 10/31/2012 07/18/2013 Overview: 10/31/2012She had 3 previous C -Sections. She desires a repeat by Dr. Renee Manuel. History of gestational diabetes 10/31/2012 10/13/2020 Overview: 10/31/2012Patient had gestational diabetes with her last 2 pregnancies. She was on glyburide with the that she delivered in 2009. She was insulin- dependent her last . She delivered both of those pregnancies in [place]. Patient is obese. 3 hour G TT ordered by Dr. Jennings. History of hypertension 10/31/2012 08/14/20 19 Overview: 10/31/2012Nahed has seen Dr. Sorto for benign hypertension that was diagnosed in 2004. She has been off medication since April 2006. Reading difficulty 10/31/2012 08/14/2019 Overview: 10/31/2012Pt states she has trouble reading. She states she has dyslexia. Family history of defects 10/31/2012 08/14/2019 Overview: 10/31/2012 The FOB was born with cleft lip and so was his aunt as well. History of anesthesia complications 10/31/2012 07/18/2013 Overview: 10/31/2012Patient states she had a blood patch to treat her spinal headaches after the of her second child . Amenorrhea 10/15/2012 02/03/2013 Irregular menstrual bleeding 06/13/201208/2013 Postcoital bleeding 06/13/2012 09/26/2012 Hemorrhoids 05/19/2011 02/03/2013 Closed fracture of metacarpal bone(s), site unsp ecified 01/05/2010 02/03/2013 Glycosuria 07/06/2009 07/18/2013 documented as of this encounter (statuses as of 09/26/2022) [facility] History of Past illness Narrative* Problem Noted Date Resolved Date AMS (altered mental status) 08/20/202208/08 Umbilical hernia 06/07/2017 08/14/2019 Overview: Added automatically from request for surgery [id number] Nipple discharge 02/19/2016 08/14/2019 Lump or mass in breast 02/19/2016 9 Abnormal glucose complicating 03/16/20 13 07/18/2013 Overview: One abnormally elevated value on 3 hour GTT LOC (loss of consciousness) 02/03/201307/08 Rubella non-immune status, antepartum 11/01/2012 07/18/2013 History of 10/31/2012 07/18/2013 Overview: 10/31/2012Nahed had 3 previous C -Sections. She desires a repeat by Dr. Renee Manuel. History of gestational diabetes 10/31/2012 10/13/2020 Overview: 10/31/2012Patient had gestational diabetes with her last 2 pregnancies. She was on glyburide with the that she delivered in 2009. She was insulin- dependent her last . She delivered both of those pregnancies in [place]. Patient is obese. 3 hour G TT ordered by Dr. Jennings. History of hypertension 10/31/2012 08/14/20 Overview: 10/31/2012Nahed has seen Dr. Sorto for benign hypertension that was diagnosed in 2004. She has been off medication since April 2006. Reading difficulty 10/31/2012 08/14/2019 Overview: 10/31/2012Pt states she has trouble reading. She states she has dyslexia. Family history of defects 10/31/2012 08/14/2019 Overview: 10/31/2012 The FOB was born with cleft lip and so was his aunt as well. History of anesthesia complications 10/31/2012 07/18/2013 Overview: 10/31/2012Patient states she had a blood patch to treat her spinal headaches after the of her second child . Amenorrhea 10/15/2012 02/03/2013 Irregular menstrual bleeding 06/13/201208/2013 Postcoital bleeding 06/13/2012 09/26/2012 Hemorrhoids 05/19/2011 02/03/2013 Closed fracture of metacarpal bone(s), site unsp ecified 01/05/2010 02/03/2013 Glycosuria 07/06/2009 07/18/2013 documented as of this encounter (statuses as of 09/27/2022) [facility]22 History of Past illness Narrative* Problem Noted Date Resolved Date AMS (altered mental status) 08/20/202208/08 Umbilical hernia 06/07/2017 08/14/2019 Overview: Added automatically from request for surgery [id number] Nipple discharge 02/19/2016 08/14/2019 Lump or mass in breast 02/19/2016 9 Abnormal glucose complicating 03/16/20 13 07/18/2013 Overview: One abnormally elevated value on 3 hour GTT LOC (loss of consciousness) 02/03/201307/08 Rubella non-immune status, antepartum 11/01/2012 07/18/2013 History of 10/31/2012 07/18/2013 Overview: 10/31/2012Shrayna had 3 previous C -Sections. She desires a repeat by Dr. Renee Manuel. History of gestational diabetes 10/31/2012 10/13/2020 Overview: 10/31/2012Patient had gestational diabetes with her last 2 pregnancies. She was on glyburide with the that she delivered in 2009. She was insulin- dependent her last . She delivered both of those pregnancies in [place]. Patient is obese. 3 hour G TT ordered by Dr. Jennings. History of hypertension 10/31/2012 08/14/20 19 Overview: 10/31/2012Shryana has seen Dr. Sorto for benign hypertension that was diagnosed in 2004. She has been off medication since April 2006. Reading difficulty 10/31/2012 08/14/2019 Overview: 10/31/2012Pt states she has trouble reading. She states she has dyslexia. Family history of defects 10/31/2012 08/14/2019 Overview: 10/31/2012 The FOB was born with cleft lip and so was his aunt as well. History of anesthesia complications 10/31/2012 07/18/2013 Overview: 10/31/2012Patient states she had a blood patch to treat her spinal headaches after the of her second child . Amenorrhea 10/15/2012 02/03/2013 Irregular menstrual bleeding 06/13/201208/2013 Postcoital bleeding 06/13/2012 09/26/2012 Hemorrhoids 05/19/2011 02/03/2013 Closed fracture of metacarpal bone(s), site unsp ecified 01/05/2010 02/03/2013 Glycosuria 07/06/2009 07/18/2013 documented as of this encounter (statuses as of 10/08/2022) [facility] History of Past illness Narrative* Problem Noted Date Resolved Date AMS (altered mental status) 08/20/202208/08 Umbilical hernia 06/07/2017 08/14/2019 Overview: Added automatically from request for surgery [id number] Nipple discharge 02/19/2016 08/14/2019 Lump or mass in breast 02/19/2016 9 Abnormal glucose complicating 03/16/20 13 07/18/2013 Overview: One abnormally elevated value on 3 hour GTT LOC (loss of consciousness) 02/03/201307/08 Rubella non-immune status, antepartum 11/01/2012 07/18/2013 History of 10/31/2012 07/18/2013 Overview: 10/31/2012Shrayna had 3 previous C -Sections. She desires a repeat by Dr. Renee Manuel. History of gestational diabetes 10/31/2012 10/13/2020 Overview: 10/31/2012Patient had gestational diabetes with her last 2 pregnancies. She was on glyburide with the that she delivered in 2009. She was insulin- dependent her last . She delivered both of those pregnancies in [place]. Patient is obese. 3 hour G TT ordered by Dr. Jennings. History of hypertension 10/31/2012 08/14/20 19 Overview: 10/31/2012Nahed has seen Dr. Sorto for benign hypertension that was diagnosed in 2004. She has been off medication since April 2006. Reading difficulty 10/31/2012 08/14/2019 Overview: 10/31/2012Pt states she has trouble reading. She states she has dyslexia. Family history of defects 10/31/2012 08/14/2019 Overview: 10/31/2012 The FOB was born with cleft lip and so was his aunt as well. History of anesthesia complications 10/31/2012 07/18/2013 Overview: 10/31/2012Patient states she had a blood patch to treat her spinal headaches after the of her second child . Amenorrhea 10/15/2012 02/03/2013 Irregular menstrual bleeding 06/13/201208/2013 Postcoital bleeding 06/13/2012 09/26/2012 Hemorrhoids 05/19/2011 02/03/2013 Closed fracture of metacarpal bone(s), site unsp ecified 01/05/2010 02/03/2013 Glycosuria 07/06/2009 07/18/2013 documented as of this encounter (statuses as of 10/11/2022) [facility] History of Past illness Narrative* Problem Noted Date Resolved Date AMS (altered mental status) 08/20/202208/08 Umbilical hernia 06/07/2017 08/14/2019 Overview: Added automatically from request for surgery [id number] Nipple discharge 02/19/2016 08/14/2019 Lump or mass in breast 02/19/2016 9 Abnormal glucose complicating 03/16/20 13 07/18/2013 Overview: One abnormally elevated value on 3 hour GTT LOC (loss of consciousness) 02/03/201307/08 Rubella non-immune status, antepartum 11/01/2012 07/18/2013 History of 10/31/2012 07/18/2013 Overview: 10/31/2012Nahed had 3 previous C -Sections. She desires a repeat by Dr. Renee Manuel. History of gestational diabetes 10/31/2012 10/13/2020 Overview: 10/31/2012Patient had gestational diabetes with her last 2 pregnancies. She was on glyburide with the that she delivered in 2009. She was insulin- dependent her last . She delivered both of those pregnancies in [place]. Patient is obese. 3 hour G TT ordered by Dr. Jennings. History of hypertension 10/31/2012 08/14/20 19 Overview: 10/31/2012Shrayna has seen Dr. Sorto for benign hypertension that was diagnosed in 2004. She has been off medication since April 2006. Reading difficulty 10/31/2012 08/14/2019 Overview: 10/31/2012Pt states she has trouble reading. She states she has dyslexia. Family history of defects 10/31/2012 08/14/2019 Overview: 10/31/2012 The FOB was born with cleft lip and so was his aunt as well. History of anesthesia complications 10/31/2012 07/18/2013 Overview: 10/31/2012Patient states she had a blood patch to treat her spinal headaches after the of her second child . Amenorrhea 10/15/2012 02/03/2013 Irregular menstrual bleeding 06/13/201208/2013 Postcoital bleeding 06/13/2012 09/26/2012 Hemorrhoids 05/19/2011 02/03/2013 Closed fracture of metacarpal bone(s), site unsp ecified 01/05/2010 02/03/2013 Glycosuria 07/06/2009 07/18/2013 documented as of this encounter (statuses as of 10/11/2022) [facility] History of Past illness Narrative* Problem Noted Date Resolved Date AMS (altered mental status) 08/20/202208/08 Umbilical hernia 06/07/2017 08/14/2019 Overview: Added automatically from request for surgery [id number] Nipple discharge 02/19/2016 08/14/2019 Lump or mass in breast 02/19/2016 9 Abnormal glucose complicating 03/16/20 13 07/18/2013 Overview: One abnormally elevated value on 3 hour GTT LOC (loss of consciousness) 02/03/201307/08 Rubella non-immune status, antepartum 11/01/2012 07/18/2013 History of 10/31/2012 07/18/2013 Overview: 10/31/2012Nahed had 3 previous C -Sections. She desires a repeat by Dr. Renee Manuel. History of gestational diabetes 10/31/2012 10/13/2020 Overview: 10/31/2012Patient had gestational diabetes with her last 2 pregnancies. She was on glyburide with the that she delivered in 2009. She was insulin- dependent her last . She delivered both of those pregnancies in [place]. Patient is obese. 3 hour G TT ordered by Dr. Jennings. History of hypertension 10/31/2012 08/14/20 19 Overview: 10/31/2012Nahed has seen Dr. Sorto for benign hypertension that was diagnosed in 2004. She has been off medication since April 2006. Reading difficulty 10/31/2012 08/14/2019 Overview: 10/31/2012Pt states she has trouble reading. She states she has dyslexia. Family history of defects 10/31/2012 08/14/2019 Overview: 10/31/2012 The FOB was born with cleft lip and so was his aunt as well. History of anesthesia complications 10/31/2012 07/18/2013 Overview: 10/31/2012Patient states she had a blood patch to treat her spinal headaches after the of her second child . Amenorrhea 10/15/2012 02/03/2013 Irregular menstrual bleeding 06/13/201208/2013 Postcoital bleeding 06/13/2012 09/26/2012 Hemorrhoids 05/19/2011 02/03/2013 Closed fracture of metacarpal bone(s), site unsp ecified 01/05/2010 02/03/2013 Glycosuria 07/06/2009 07/18/2013 documented as of this encounter (statuses as of 10/20/2022) [facility] History of Past illness Narrative* Problem Noted Date Resolved Date AMS (altered mental status) 08/20/202208/08 Umbilical hernia 06/07/2017 08/14/2019 Overview: Added automatically from request for surgery [id number] Nipple discharge 02/19/2016 08/14/2019 Lump or mass in breast 02/19/2016 9 Abnormal glucose complicating 03/16/20 13 07/18/2013 Overview: One abnormally elevated value on 3 hour GTT LOC (loss of consciousness) 02/03/201307/08 Rubella non-immune status, antepartum 11/01/2012 07/18/2013 History of 10/31/2012 07/18/2013 Overview: 10/31/2012Nahed had 3 previous C -Sections. She desires a repeat by Dr. Renee Manuel. History of gestational diabetes 10/31/2012 10/13/2020 Overview: 10/31/2012Patient had gestational diabetes with her last 2 pregnancies. She was on glyburide with the that she delivered in 2009. She was insulin- dependent her last . She delivered both of those pregnancies in [place]. Patient is obese. 3 hour G TT ordered by Dr. Jennings. History of hypertension 10/31/2012 08/14/20 19 Overview: 10/31/2012Nahed has seen Dr. Sorto for benign hypertension that was diagnosed in 2004. She has been off medication since April 2006. Reading difficulty 10/31/2012 08/14/2019 Overview: 10/31/2012Pt states she has trouble reading. She states she has dyslexia. Family history of defects 10/31/2012 08/14/2019 Overview: 10/31/2012 The FOB was born with cleft lip and so was his aunt as well. History of anesthesia complications 10/31/2012 07/18/2013 Overview: 10/31/2012Patient states she had a blood patch to treat her spinal headaches after the of her second child . Amenorrhea 10/15/2012 02/03/2013 Irregular menstrual bleeding 06/13/201208/2013 Postcoital bleeding 06/13/2012 09/26/2012 Hemorrhoids 05/19/2011 02/03/2013 Closed fracture of metacarpal bone(s), site unsp ecified 01/05/2010 02/03/2013 Glycosuria 07/06/2009 07/18/2013 documented as of this encounter (statuses as of 10/25/2022) [facility] History of Past illness Narrative* Problem Noted Date Resolved Date AMS (altered mental status) 08/20/202208/08 Umbilical hernia 06/07/2017 08/14/2019 Overview: Added automatically from request for surgery [id number] Nipple discharge 02/19/2016 08/14/2019 Lump or mass in breast 02/19/2016 9 Abnormal glucose complicating 03/16/20 13 07/18/2013 Overview: One abnormally elevated value on 3 hour GTT LOC (loss of consciousness) 02/03/201307/08 Rubella non-immune status, antepartum 11/01/2012 07/18/2013 History of 10/31/2012 07/18/2013 Overview: 10/31/2012She had 3 previous C -Sections. She desires a repeat by Dr. Renee Manuel. History of gestational diabetes 10/31/2012 10/13/2020 Overview: 10/31/2012Patient had gestational diabetes with her last 2 pregnancies. She was on glyburide with the that she delivered in 2009. She was insulin- dependent her last . She delivered both of those pregnancies in [place]. Patient is obese. 3 hour G TT ordered by Dr. Jennings. History of hypertension 10/31/2012 08/14/20 19 Overview: 10/31/2012Nahed has seen Dr. Sorto for benign hypertension that was diagnosed in 2004. She has been off medication since April 2006. Reading difficulty 10/31/2012 08/14/2019 Overview: 10/31/2012Pt states she has trouble reading. She states she has dyslexia. Family history of defects 10/31/2012 08/14/2019 Overview: 10/31/2012 The FOB was born with cleft lip and so was his aunt as well. History of anesthesia complications 10/31/2012 07/18/2013 Overview: 10/31/2012Patient states she had a blood patch to treat her spinal headaches after the of her second child . Amenorrhea 10/15/2012 02/03/2013 Irregular menstrual bleeding 06/13/201208/2013 Postcoital bleeding 06/13/2012 09/26/2012 Hemorrhoids 05/19/2011 02/03/2013 Closed fracture of metacarpal bone(s), site unsp ecified 01/05/2010 02/03/2013 Glycosuria 07/06/2009 07/18/2013 documented as of this encounter (statuses as of 11/01/2022) [facility] History of Past illness Narrative* Problem Noted Date Resolved Date AMS (altered mental status) 08/20/202208/08 Umbilical hernia 06/07/2017 08/14/2019 Overview: Added automatically from request for surgery [id number] Nipple discharge 02/19/2016 08/14/2019 Lump or mass in breast 02/19/2016 9 Abnormal glucose complicating 03/16/20 13 07/18/2013 Overview: One abnormally elevated value on 3 hour GTT LOC (loss of consciousness) 02/03/201307/08 Rubella non-immune status, antepartum 11/01/2012 07/18/2013 History of 10/31/2012 07/18/2013 Overview: 10/31/2012Nahed had 3 previous C -Sections. She desires a repeat by Dr. Renee Manuel. History of gestational diabetes 10/31/2012 10/13/2020 Overview: 10/31/2012Patient had gestational diabetes with her last 2 pregnancies. She was on glyburide with the that she delivered in 2009. She was insulin- dependent her last . She delivered both of those pregnancies in [place]. Patient is obese. 3 hour G TT ordered by Dr. Jennings. History of hypertension 10/31/2012 08/14/20 Overview: 10/31/2012Nahed has seen Dr. Sorto for benign hypertension that was diagnosed in 2004. She has been off medication since April 2006. Reading difficulty 10/31/2012 08/14/2019 Overview: 10/31/2012Pt states she has trouble reading. She states she has dyslexia. Family history of defects 10/31/2012 08/14/2019 Overview: 10/31/2012 The FOB was born with cleft lip and so was his aunt as well. History of anesthesia complications 10/31/2012 07/18/2013 Overview: 10/31/2012Patient states she had a blood patch to treat her spinal headaches after the of her second child . Amenorrhea 10/15/2012 02/03/2013 Irregular menstrual bleeding 06/13/201208/2013 Postcoital bleeding 06/13/2012 09/26/2012 Hemorrhoids 05/19/2011 02/03/2013 Closed fracture of metacarpal bone(s), site unsp ecified 01/05/2010 02/03/2013 Glycosuria 07/06/2009 07/18/2013 documented as of this encounter (statuses as of 11/14/2022) [facility] History of Past illness Narrative* Problem Noted Date Resolved Date AMS (altered mental status) 08/20/202208/08 Umbilical hernia 06/07/2017 08/14/2019 Overview: Added automatically from request for surgery [id number] Nipple discharge 02/19/2016 08/14/2019 Lump or mass in breast 02/19/2016 9 Abnormal glucose complicating 03/16/20 13 07/18/2013 Overview: One abnormally elevated value on 3 hour GTT LOC (loss of consciousness) 02/03/201307/08 Rubella non-immune status, antepartum 11/01/2012 07/18/2013 History of 10/31/2012 07/18/2013 Overview: 10/31/2012Nahed had 3 previous C -Sections. She desires a repeat by Dr. Renee Manuel. History of gestational diabetes 10/31/2012 10/13/2020 Overview: 10/31/2012Patient had gestational diabetes with her last 2 pregnancies. She was on glyburide with the that she delivered in 2009. She was insulin- dependent her last . She delivered both of those pregnancies in [place]. Patient is obese. 3 hour G TT ordered by Dr. Jennings. History of hypertension 10/31/2012 08/14/20 19 Overview: 10/31/2012Nahed has seen Dr. Sorto for benign hypertension that was diagnosed in 2004. She has been off medication since April 2006. Reading difficulty 10/31/2012 08/14/2019 Overview: 10/31/2012Pt states she has trouble reading. She states she has dyslexia. Family history of defects 10/31/2012 08/14/2019 Overview: 10/31/2012 The FOB was born with cleft lip and so was his aunt as well. History of anesthesia complications 10/31/2012 07/18/2013 Overview: 10/31/2012Patient states she had a blood patch to treat her spinal headaches after the of her second child . Amenorrhea 10/15/2012 02/03/2013 Irregular menstrual bleeding 06/13/201208/2013 Postcoital bleeding 06/13/2012 09/26/2012 Hemorrhoids 05/19/2011 02/03/2013 Closed fracture of metacarpal bone(s), site unsp ecified 01/05/2010 02/03/2013 Glycosuria 07/06/2009 07/18/2013 documented as of this encounter (statuses as of 11/23/2022) [facility] History of Past illness Narrative* Problem Noted Date Resolved Date AMS (altered mental status) 08/20/202208/08 Umbilical hernia 06/07/2017 08/14/2019 Overview: Added automatically from request for surgery [id number] Nipple discharge 02/19/2016 08/14/2019 Lump or mass in breast 02/19/2016 9 Abnormal glucose complicating 03/16/20 13 07/18/2013 Overview: One abnormally elevated value on 3 hour GTT LOC (loss of consciousness) 02/03/201307/08 Rubella non-immune status, antepartum 11/01/2012 07/18/2013 History of 10/31/2012 07/18/2013 Overview: 10/31/2012She had 3 previous C -Sections. She desires a repeat by Dr. Renee Manuel. History of gestational diabetes 10/31/2012 10/13/2020 Overview: 10/31/2012Patient had gestational diabetes with her last 2 pregnancies. She was on glyburide with the that she delivered in 2009. She was insulin- dependent her last . She delivered both of those pregnancies in [place]. Patient is obese. 3 hour G TT ordered by Dr. Jennings. History of hypertension 10/31/2012 08/14/20 19 Overview: 10/31/2012Nahed has seen Dr. Sorto for benign hypertension that was diagnosed in 2004. She has been off medication since April 2006. Reading difficulty 10/31/2012 08/14/2019 Overview: 10/31/2012Pt states she has trouble reading. She states she has dyslexia. Family history of defects 10/31/2012 08/14/2019 Overview: 10/31/2012 The FOB was born with cleft lip and so was his aunt as well. History of anesthesia complications 10/31/2012 07/18/2013 Overview: 10/31/2012Patient states she had a blood patch to treat her spinal headaches after the of her second child . Amenorrhea 10/15/2012 02/03/2013 Irregular menstrual bleeding 06/13/201208/2013 Postcoital bleeding 06/13/2012 09/26/2012 Hemorrhoids 05/19/2011 02/03/2013 Closed fracture of metacarpal bone(s), site unsp ecified 01/05/2010 02/03/2013 Glycosuria 07/06/2009 07/18/2013 documented as of this encounter (statuses as of 12/04/2022) [facility] History of Past illness Narrative* Problem Noted Date Resolved Date AMS (altered mental status) 08/20/202208/08 Umbilical hernia 06/07/2017 08/14/2019 Overview: Added automatically from request for surgery [id number] Nipple discharge 02/19/2016 08/14/2019 Lump or mass in breast 02/19/2016 9 Abnormal glucose complicating 03/16/20 13 07/18/2013 Overview: One abnormally elevated value on 3 hour GTT LOC (loss of consciousness) 02/03/201307/08 Rubella non-immune status, antepartum 11/01/2012 07/18/2013 History of 10/31/2012 07/18/2013 Overview: 10/31/2012Nahed had 3 previous C -Sections. She desires a repeat by Dr. Renee Manuel. History of gestational diabetes 10/31/2012 10/13/2020 Overview: 10/31/2012Patient had gestational diabetes with her last 2 pregnancies. She was on glyburide with the that she delivered in 2009. She was insulin- dependent her last . She delivered both of those pregnancies in [place]. Patient is obese. 3 hour G TT ordered by Dr. Jennings. History of hypertension 10/31/2012 08/14/20 Overview: 10/31/2012Nahed has seen Dr. Sorto for benign hypertension that was diagnosed in 2004. She has been off medication since April 2006. Reading difficulty 10/31/2012 08/14/2019 Overview: 10/31/2012Pt states she has trouble reading. She states she has dyslexia. Family history of defects 10/31/2012 08/14/2019 Overview: 10/31/2012 The FOB was born with cleft lip and so was his aunt as well. History of anesthesia complications 10/31/2012 07/18/2013 Overview: 10/31/2012Patient states she had a blood patch to treat her spinal headaches after the of her second child . Amenorrhea 10/15/2012 02/03/2013 Irregular menstrual bleeding 06/13/201208/2013 Postcoital bleeding 06/13/2012 09/26/2012 Hemorrhoids 05/19/2011 02/03/2013 Closed fracture of metacarpal bone(s), site unsp ecified 01/05/2010 02/03/2013 Glycosuria 07/06/2009 07/18/2013 documented as of this encounter (statuses as of 12/05/2022) [facility] History of Past illness Narrative* Problem Noted Date Resolved Date AMS (altered mental status) 08/20/202208/08 Umbilical hernia 06/07/2017 08/14/2019 Overview: Added automatically from request for surgery [id number] Nipple discharge 02/19/2016 08/14/2019 Lump or mass in breast 02/19/2016 9 Abnormal glucose complicating 03/16/20 13 07/18/2013 Overview: One abnormally elevated value on 3 hour GTT LOC (loss of consciousness) 02/03/201307/08 Rubella non-immune status, antepartum 11/01/2012 07/18/2013 History of 10/31/2012 07/18/2013 Overview: 10/31/2012Nahed had 3 previous C -Sections. She desires a repeat by Dr. Renee Mnauel. History of gestational diabetes 10/31/2012 10/13/2020 Overview: 10/31/2012Patient had gestational diabetes with her last 2 pregnancies. She was on glyburide with the that she delivered in 2009. She was insulin- dependent her last . She delivered both of those pregnancies in [place]. Patient is obese. 3 hour G TT ordered by Dr. Jennings. History of hypertension 10/31/2012 08/14/20 19 Overview: 10/31/2012Nahed has seen Dr. Sorto for benign hypertension that was diagnosed in 2004. She has been off medication since April 2006. Reading difficulty 10/31/2012 08/14/2019 Overview: 10/31/2012Pt states she has trouble reading. She states she has dyslexia. Family history of defects 10/31/2012 08/14/2019 Overview: 10/31/2012 The FOB was born with cleft lip and so was his aunt as well. History of anesthesia complications 10/31/2012 07/18/2013 Overview: 10/31/2012Patient states she had a blood patch to treat her spinal headaches after the of her second child . Amenorrhea 10/15/2012 02/03/2013 Irregular menstrual bleeding 06/13/201208/2013 Postcoital bleeding 06/13/2012 09/26/2012 Hemorrhoids 05/19/2011 02/03/2013 Closed fracture of metacarpal bone(s), site unsp ecified 01/05/2010 02/03/2013 Glycosuria 07/06/2009 07/18/2013 documented as of this encounter (statuses as of 12/13/2022) [facility] History of Past illness Narrative* Problem Noted Date Resolved Date AMS (altered mental status) 08/20/202208/08 Umbilical hernia 06/07/2017 08/14/2019 Overview: Added automatically from request for surgery [id number] Nipple discharge 02/19/2016 08/14/2019 Lump or mass in breast 02/19/2016 9 Abnormal glucose complicating 03/16/20 13 07/18/2013 Overview: One abnormally elevated value on 3 hour GTT LOC (loss of consciousness) 02/03/201307/08 Rubella non-immune status, antepartum 11/01/2012 07/18/2013 History of 10/31/2012 07/18/2013 Overview: 10/31/2012Shrayna had 3 previous C -Sections. She desires a repeat by Dr. Renee Manuel. History of gestational diabetes 10/31/2012 10/13/2020 Overview: 10/31/2012Patient had gestational diabetes with her last 2 pregnancies. She was on glyburide with the that she delivered in 2009. She was insulin- dependent her last . She delivered both of those pregnancies in [place]. Patient is obese. 3 hour G TT ordered by Dr. Jennings. History of hypertension 10/31/2012 08/14/20 19 Overview: 10/31/2012Nahed has seen Dr. Sorto for benign hypertension that was diagnosed in 2004. She has been off medication since April 2006. Reading difficulty 10/31/2012 08/14/2019 Overview: 01/24/2013Pt states she has trouble reading. She states she has dyslexia. Family history of defects 10/31/2012 08/14/2019 Overview: 10/31/2012 The FOB was born with cleft lip and so was his aunt as well. History of anesthesia complications 10/31/2012 07/18/2013 Overview: 10/31/2012Patient states she had a blood patch to treat her spinal headaches after the of her second child . Amenorrhea 10/15/2012 02/03/2013 Irregular menstrual bleeding 06/13/201208/2013 Postcoital bleeding 06/13/2012 09/26/2012 Hemorrhoids 05/19/2011 02/03/2013 Closed fracture of metacarpal bone(s), site unsp ecified 01/05/2010 02/03/2013 Glycosuria 07/06/2009 07/18/2013 documented as of this encounter (statuses as of 12/15/2022) [facility]-13-2022 History of Past illness Narrative* Problem Noted Date Resolved Date AMS (altered mental status) 08/20/202208/08 Umbilical hernia 06/07/2017 08/14/2019 Overview: Added automatically from request for surgery [id number] Nipple discharge 02/19/2016 08/14/2019 Lump or mass in breast 02/19/2016 9 Abnormal glucose complicating 03/16/20 13 07/18/2013 Overview: One abnormally elevated value on 3 hour GTT LOC (loss of consciousness) 02/03/201307/08 Rubella non-immune status, antepartum 11/01/2012 07/18/2013 History of 10/31/2012 07/18/2013 Overview: 10/31/2012She had 3 previous C -Sections. She desires a repeat by Dr. Renee Manuel. History of gestational diabetes 10/31/2012 10/13/2020 Overview: 10/31/2012Patient had gestational diabetes with her last 2 pregnancies. She was on glyburide with the that she delivered in 2009. She was insulin- dependent her last . She delivered both of those pregnancies in [place]. Patient is obese. 3 hour G TT ordered by Dr. Jennings. History of hypertension 10/31/2012 08/14/20 19 Overview: 10/31/2012Nahed has seen Dr. Sorto for benign hypertension that was diagnosed in 2004. She has been off medication since April 2006. Reading difficulty 10/31/2012 08/14/2019 Overview: 10/31/2012Pt states she has trouble reading. She states she has dyslexia. Family history of defects 10/31/2012 08/14/2019 Overview: 10/31/2012 The FOB was born with cleft lip and so was his aunt as well. History of anesthesia complications 10/31/2012 07/18/2013 Overview: 10/31/2012Patient states she had a blood patch to treat her spinal headaches after the of her second child . Amenorrhea 10/15/2012 02/03/2013 Irregular menstrual bleeding 06/13/201208/2013 Postcoital bleeding 06/13/2012 09/26/2012 Hemorrhoids 05/19/2011 02/03/2013 Closed fracture of metacarpal bone(s), site unsp ecified 01/05/2010 02/03/2013 Glycosuria 07/06/2009 07/18/2013 documented as of this encounter (statuses as of 12/15/2022) [facility]-13-[facility] History of Past illness Narrative* Problem Noted Date Resolved Date AMS (altered mental status) 08/20/202208/08 Umbilical hernia 06/07/2017 08/14/2019 Overview: Added automatically from request for surgery [id number] Nipple discharge 02/19/2016 08/14/2019 Lump or mass in breast 02/19/2016 9 Abnormal glucose complicating 03/16/20 13 07/18/2013 Overview: One abnormally elevated value on 3 hour GTT LOC (loss of consciousness) 02/03/201307/08 Rubella non-immune status, antepartum 11/01/2012 07/18/2013 History of 10/31/2012 07/18/2013 Overview: 10/31/2012Nahed had 3 previous C -Sections. She desires a repeat by Dr. Renee Manuel. History of gestational diabetes 10/31/2012 10/13/2020 Overview: 10/31/2012Patient had gestational diabetes with her last 2 pregnancies. She was on glyburide with the that she delivered in 2009. She was insulin- dependent her last . She delivered both of those pregnancies in [place]. Patient is obese. 3 hour G TT ordered by Dr. Jennings. History of hypertension 10/31/2012 08/14/20 Overview: 10/31/2012Nahed has seen Dr. Sorto for benign hypertension that was diagnosed in 2004. She has been off medication since April 2006. Reading difficulty 10/31/2012 08/14/2019 Overview: 10/31/2012Pt states she has trouble reading. She states she has dyslexia. Family history of defects 10/31/2012 08/14/2019 Overview: 10/31/2012 The FOB was born with cleft lip and so was his aunt as well. History of anesthesia complications 10/31/2012 07/18/2013 Overview: 10/31/2012Patient states she had a blood patch to treat her spinal headaches after the of her second child . Amenorrhea 10/15/2012 02/03/2013 Irregular menstrual bleeding 06/13/201208/2013 Postcoital bleeding 06/13/2012 09/26/2012 Hemorrhoids 05/19/2011 02/03/2013 Closed fracture of metacarpal bone(s), site unsp ecified 01/05/2010 02/03/2013 Glycosuria 07/06/2009 07/18/2013 documented as of this encounter (statuses as of 12/18/2022) [facility] History of Past illness Narrative* Problem Noted Date Resolved Date AMS (altered mental status) 08/20/202208/08 Umbilical hernia 06/07/2017 08/14/2019 Overview: Added automatically from request for surgery [id number] Nipple discharge 02/19/2016 08/14/2019 Lump or mass in breast 02/19/2016 9 Abnormal glucose complicating 03/16/20 13 07/18/2013 Overview: One abnormally elevated value on 3 hour GTT LOC (loss of consciousness) 02/03/201307/08 Rubella non-immune status, antepartum 11/01/2012 07/18/2013 History of 10/31/2012 07/18/2013 Overview: 10/31/2012Nahed had 3 previous C -Sections. She desires a repeat by Dr. Renee Manuel. History of gestational diabetes 10/31/2012 10/13/2020 Overview: 10/31/2012Patient had gestational diabetes with her last 2 pregnancies. She was on glyburide with the that she delivered in 2009. She was insulin- dependent her last . She delivered both of those pregnancies in [place]. Patient is obese. 3 hour G TT ordered by Dr. Jennings. History of hypertension 10/31/2012 08/14/20 19 Overview: 10/31/2012Nahed has seen Dr. Sorto for benign hypertension that was diagnosed in 2004. She has been off medication since April 2006. Reading difficulty 10/31/2012 08/14/2019 Overview: 10/31/2012Pt states she has trouble reading. She states she has dyslexia. Family history of defects 10/31/2012 08/14/2019 Overview: 10/31/2012 The FOB was born with cleft lip and so was his aunt as well. History of anesthesia complications 10/31/2012 07/18/2013 Overview: 10/31/2012Patient states she had a blood patch to treat her spinal headaches after the of her second child . Amenorrhea 10/15/2012 02/03/2013 Irregular menstrual bleeding 06/13/201208/2013 Postcoital bleeding 06/13/2012 09/26/2012 Hemorrhoids 05/19/2011 02/03/2013 Closed fracture of metacarpal bone(s), site unsp ecified 01/05/2010 02/03/2013 Glycosuria 07/06/2009 07/18/2013 documented as of this encounter (statuses as of 12/25/2022) [facility] History of Past illness Narrative* Problem Noted Date Resolved Date AMS (altered mental status) 08/20/202208/08 Umbilical hernia 06/07/2017 08/14/2019 Overview: Added automatically from request for surgery [id number] Nipple discharge 02/19/2016 08/14/2019 Lump or mass in breast 02/19/2016 9 Abnormal glucose complicating 03/16/20 13 07/18/2013 Overview: One abnormally elevated value on 3 hour GTT LOC (loss of consciousness) 02/03/201307/08 Rubella non-immune status, antepartum 11/01/2012 07/18/2013 History of 10/31/2012 07/18/2013 Overview: 10/31/2012She had 3 previous C -Sections. She desires a repeat by Dr. Renee Manuel. History of gestational diabetes 10/31/2012 10/13/2020 Overview: 10/31/2012Patient had gestational diabetes with her last 2 pregnancies. She was on glyburide with the that she delivered in 2009. She was insulin- dependent her last . She delivered both of those pregnancies in [place]. Patient is obese. 3 hour G TT ordered by Dr. Jennings. History of hypertension 10/31/2012 08/14/20 19 Overview: 10/31/2012Nahed has seen Dr. Sorto for benign hypertension that was diagnosed in 2004. She has been off medication since April 2006. Reading difficulty 10/31/2012 08/14/2019 Overview: 10/31/2012Pt states she has trouble reading. She states she has dyslexia. Family history of defects 10/31/2012 08/14/2019 Overview: 10/31/2012 The FOB was born with cleft lip and so was his aunt as well. History of anesthesia complications 10/31/2012 07/18/2013 Overview: 10/31/2012Patient states she had a blood patch to treat her spinal headaches after the of her second child . Amenorrhea 10/15/2012 02/03/2013 Irregular menstrual bleeding 06/13/201208/2013 Postcoital bleeding 06/13/2012 09/26/2012 Hemorrhoids 05/19/2011 02/03/2013 Closed fracture of metacarpal bone(s), site unsp ecified 01/05/2010 02/03/2013 Glycosuria 07/06/2009 07/18/2013 documented as of this encounter (statuses as of 12/26/2022) [facility] History of Past illness Narrative* Problem Noted Date Resolved Date AMS (altered mental status) 08/20/202208/08 Umbilical hernia 06/07/2017 08/14/2019 Overview: Added automatically from request for surgery [id number] Nipple discharge 02/19/2016 08/14/2019 Lump or mass in breast 02/19/2016 9 Abnormal glucose complicating 03/16/20 13 07/18/2013 Overview: One abnormally elevated value on 3 hour GTT LOC (loss of consciousness) 02/03/201307/08 Rubella non-immune status, antepartum 11/01/2012 07/18/2013 History of 10/31/2012 07/18/2013 Overview: 10/31/2012Nahed had 3 previous C -Sections. She desires a repeat by Dr. Renee Manuel. History of gestational diabetes 10/31/2012 10/13/2020 Overview: 10/31/2012Patient had gestational diabetes with her last 2 pregnancies. She was on glyburide with the that she delivered in 2009. She was insulin- dependent her last . She delivered both of those pregnancies in [place]. Patient is obese. 3 hour G TT ordered by Dr. Jennings. History of hypertension 10/31/2012 08/14/20 Overview: 10/31/2012Nahed has seen Dr. Sorto for benign hypertension that was diagnosed in 2004. She has been off medication since April 2006. Reading difficulty 10/31/2012 08/14/2019 Overview: 10/31/2012Pt states she has trouble reading. She states she has dyslexia. Family history of defects 10/31/2012 08/14/2019 Overview: 10/31/2012 The FOB was born with cleft lip and so was his aunt as well. History of anesthesia complications 10/31/2012 07/18/2013 Overview: 10/31/2012Patient states she had a blood patch to treat her spinal headaches after the of her second child . Amenorrhea 10/15/2012 02/03/2013 Irregular menstrual bleeding 06/13/201208/2013 Postcoital bleeding 06/13/2012 09/26/2012 Hemorrhoids 05/19/2011 02/03/2013 Closed fracture of metacarpal bone(s), site unsp ecified 01/05/2010 02/03/2013 Glycosuria 07/06/2009 07/18/2013 documented as of this encounter (statuses as of 12/26/2022) [facility] History of Past illness Narrative* Problem Noted Date Resolved Date AMS (altered mental status) 08/20/202208/08 Umbilical hernia 06/07/2017 08/14/2019 Overview: Added automatically from request for surgery [id number] Nipple discharge 02/19/2016 08/14/2019 Lump or mass in breast 02/19/2016 9 Abnormal glucose complicating 03/16/20 13 07/18/2013 Overview: One abnormally elevated value on 3 hour GTT LOC (loss of consciousness) 02/03/201307/08 Rubella non-immune status, antepartum 11/01/2012 07/18/2013 History of 10/31/2012 07/18/2013 Overview: 10/31/2012Shrayna had 3 previous C -Sections. She desires a repeat by Dr. Renee Manuel. History of gestational diabetes 10/31/2012 10/13/2020 Overview: 10/31/2012Patient had gestational diabetes with her last 2 pregnancies. She was on glyburide with the that she delivered in 2009. She was insulin- dependent her last . She delivered both of those pregnancies in [place]. Patient is obese. 3 hour G TT ordered by Dr. Jennings. History of hypertension 10/31/2012 08/14/20 19 Overview: 10/31/2012Nahed has seen Dr. Sorto for benign hypertension that was diagnosed in 2004. She has been off medication since April 2006. Reading difficulty 10/31/2012 08/14/2019 Overview: 10/31/2012Pt states she has trouble reading. She states she has dyslexia. Family history of defects 10/31/2012 08/14/2019 Overview: 10/31/2012 The FOB was born with cleft lip and so was his aunt as well. History of anesthesia complications 10/31/2012 07/18/2013 Overview: 10/31/2012Patient states she had a blood patch to treat her spinal headaches after the of her second child . Amenorrhea 10/15/2012 02/03/2013 Irregular menstrual bleeding 06/13/201208/2013 Postcoital bleeding 06/13/2012 09/26/2012 Hemorrhoids 05/19/2011 02/03/2013 Closed fracture of metacarpal bone(s), site unsp ecified 01/05/2010 02/03/2013 Glycosuria 07/06/2009 07/18/2013 documented as of this encounter (statuses as of 01/01/2023) [facility] History of Past illness Narrative* Problem Noted Date Resolved Date AMS (altered mental status) 08/20/202208/08 Umbilical hernia 06/07/2017 08/14/2019 Overview: Added automatically from request for surgery [id number] Nipple discharge 02/19/2016 08/14/2019 Lump or mass in breast 02/19/2016 9 Abnormal glucose complicating 03/16/20 13 07/18/2013 Overview: One abnormally elevated value on 3 hour GTT LOC (loss of consciousness) 02/03/201307/08 Rubella non-immune status, antepartum 11/01/2012 07/18/2013 History of 10/31/2012 07/18/2013 Overview: 10/31/2012Shrayna had 3 previous C -Sections. She desires a repeat by Dr. Renee Manuel. History of gestational diabetes 10/31/2012 10/13/2020 Overview: 10/31/2012Patient had gestational diabetes with her last 2 pregnancies. She was on glyburide with the that she delivered in 2009. She was insulin- dependent her last . She delivered both of those pregnancies in [place]. Patient is obese. 3 hour G TT ordered by Dr. Jennings. History of hypertension 10/31/2012 08/14/20 19 Overview: 10/31/2012Nahed has seen Dr. Sorto for benign hypertension that was diagnosed in 2004. She has been off medication since April 2006. Reading difficulty 10/31/2012 08/14/2019 Overview: 10/31/2012Pt states she has trouble reading. She states she has dyslexia. Family history of defects 10/31/2012 08/14/2019 Overview: 10/31/2012 The FOB was born with cleft lip and so was his aunt as well. History of anesthesia complications 10/31/2012 07/18/2013 Overview: 10/31/2012Patient states she had a blood patch to treat her spinal headaches after the of her second child . Amenorrhea 10/15/2012 02/03/2013 Irregular menstrual bleeding 06/13/201208/2013 Postcoital bleeding 06/13/2012 09/26/2012 Hemorrhoids 05/19/2011 02/03/2013 Closed fracture of metacarpal bone(s), site unsp ecified 01/05/2010 02/03/2013 Glycosuria 07/06/2009 07/18/2013 documented as of this encounter (statuses as of 01/02/2023) [facility] History of Past illness Narrative* Problem Noted Date Resolved Date AMS (altered mental status) 08/20/202208/08 Umbilical hernia 06/07/2017 08/14/2019 Overview: Added automatically from request for surgery [id number] Nipple discharge 02/19/2016 08/14/2019 Lump or mass in breast 02/19/2016 9 Abnormal glucose complicating 03/16/20 13 07/18/2013 Overview: One abnormally elevated value on 3 hour GTT LOC (loss of consciousness) 02/03/201307/08 Rubella non-immune status, antepartum 11/01/2012 07/18/2013 History of 10/31/2012 07/18/2013 Overview: 10/31/2012Shrayna had 3 previous C -Sections. She desires a repeat by Dr. Renee Manuel. History of gestational diabetes 10/31/2012 10/13/2020 Overview: 10/31/2012Patient had gestational diabetes with her last 2 pregnancies. She was on glyburide with the that she delivered in 2009. She was insulin- dependent her last . She delivered both of those pregnancies in [place]. Patient is obese. 3 hour G TT ordered by Dr. Jennings. History of hypertension 10/31/2012 08/14/20 19 Overview: 10/31/2012She has seen Dr. Sorto for benign hypertension that was diagnosed in 2004. She has been off medication since April 2006. Reading difficulty 10/31/2012 08/14/2019 Overview: 10/31/2012Pt states she has trouble reading. She states she has dyslexia. Family history of defects 10/31/2012 08/14/2019 Overview: 10/31/2012 The FOB was born with cleft lip and so was his aunt as well. History of anesthesia complications 10/31/2012 07/18/2013 Overview: 10/31/2012Patient states she had a blood patch to treat her spinal headaches after the of her second child . Amenorrhea 10/15/2012 02/03/2013 Irregular menstrual bleeding 06/13/201208/2013 Postcoital bleeding 06/13/2012 09/26/2012 Hemorrhoids 05/19/2011 02/03/2013 Closed fracture of metacarpal bone(s), site unsp ecified 01/05/2010 02/03/2013 Glycosuria 07/06/2009 07/18/2013 documented as of this encounter (statuses as of 01/02/2023) [facility] History of Past illness Narrative* Problem Noted Date Resolved Date AMS (altered mental status) 08/20/202208/08 Umbilical hernia 06/07/2017 08/14/2019 Overview: Added automatically from request for surgery [id number] Nipple discharge 02/19/2016 08/14/2019 Lump or mass in breast 02/19/2016 9 Abnormal glucose complicating 03/16/20 13 07/18/2013 Overview: One abnormally elevated value on 3 hour GTT LOC (loss of consciousness) 02/03/201307/08 Rubella non-immune status, antepartum 11/01/2012 07/18/2013 History of 10/31/2012 07/18/2013 Overview: 10/31/2012Nahed had 3 previous C -Sections. She desires a repeat by Dr. Renee Manuel. History of gestational diabetes 10/31/2012 10/13/2020 Overview: 10/31/2012Patient had gestational diabetes with her last 2 pregnancies. She was on glyburide with the that she delivered in 2009. She was insulin- dependent her last . She delivered both of those pregnancies in [place]. Patient is obese. 3 hour G TT ordered by Dr. Jennings. History of hypertension 10/31/2012 08/14/20 19 Overview: 10/31/2012Nahed has seen Dr. Sorto for benign hypertension that was diagnosed in 2004. She has been off medication since April 2006. Reading difficulty 10/31/2012 08/14/2019 Overview: 10/31/2012Pt states she has trouble reading. She states she has dyslexia. Family history of defects 10/31/2012 08/14/2019 Overview: 10/31/2012 The FOB was born with cleft lip and so was his aunt as well. History of anesthesia complications 10/31/2012 07/18/2013 Overview: 10/31/2012Patient states she had a blood patch to treat her spinal headaches after the of her second child . Amenorrhea 10/15/2012 02/03/2013 Irregular menstrual bleeding 06/13/201208/2013 Postcoital bleeding 06/13/2012 09/26/2012 Hemorrhoids 05/19/2011 02/03/2013 Closed fracture of metacarpal bone(s), site unsp ecified 01/05/2010 02/03/2013 Glycosuria 07/06/2009 07/18/2013 documented as of this encounter (statuses as of 01/03/2023) [facility] History of Past illness Narrative* Problem Noted Date Resolved Date AMS (altered mental status) 08/20/202208/08 Umbilical hernia 06/07/2017 08/14/2019 Overview: Added automatically from request for surgery [id number] Nipple discharge 02/19/2016 08/14/2019 Lump or mass in breast 02/19/2016 9 Abnormal glucose complicating 03/16/20 13 07/18/2013 Overview: One abnormally elevated value on 3 hour GTT LOC (loss of consciousness) 02/03/201307/08 Rubella non-immune status, antepartum 11/01/2012 07/18/2013 History of 10/31/2012 07/18/2013 Overview: 10/31/2012Nahed had 3 previous C -Sections. She desires a repeat by Dr. Renee Manuel. History of gestational diabetes 10/31/2012 10/13/2020 Overview: 10/31/2012Patient had gestational diabetes with her last 2 pregnancies. She was on glyburide with the that she delivered in 2009. She was insulin- dependent her last . She delivered both of those pregnancies in [place]. Patient is obese. 3 hour G TT ordered by Dr. Jennings. History of hypertension 10/31/2012 08/14/20 19 Overview: 10/31/2012Nahed has seen Dr. Sorto for benign hypertension that was diagnosed in 2004. She has been off medication since April 2006. Reading difficulty 10/31/2012 08/14/2019 Overview: 10/31/2012Pt states she has trouble reading. She states she has dyslexia. Family history of defects 10/31/2012 08/14/2019 Overview: 10/31/2012 The FOB was born with cleft lip and so was his aunt as well. History of anesthesia complications 10/31/2012 07/18/2013 Overview: 10/31/2012Patient states she had a blood patch to treat her spinal headaches after the of her second child . Amenorrhea 10/15/2012 02/03/2013 Irregular menstrual bleeding 06/13/201208/2013 Postcoital bleeding 06/13/2012 09/26/2012 Hemorrhoids 05/19/2011 02/03/2013 Closed fracture of metacarpal bone(s), site unsp ecified 01/05/2010 02/03/2013 Glycosuria 07/06/2009 07/18/2013 documented as of this encounter (statuses as of 01/08/2023) [facility] History of Past illness Narrative* Problem Noted Date Resolved Date AMS (altered mental status) 08/20/202208/08 Umbilical hernia 06/07/2017 08/14/2019 Overview: Added automatically from request for surgery [id number] Nipple discharge 02/19/2016 08/14/2019 Lump or mass in breast 02/19/2016 9 Abnormal glucose complicating 03/16/20 13 07/18/2013 Overview: One abnormally elevated value on 3 hour GTT LOC (loss of consciousness) 02/03/201307/08 Rubella non-immune status, antepartum 11/01/2012 07/18/2013 History of 10/31/2012 07/18/2013 Overview: 10/31/2012She had 3 previous C -Sections. She desires a repeat by Dr. Renee Manuel. History of gestational diabetes 10/31/2012 10/13/2020 Overview: 10/31/2012Patient had gestational diabetes with her last 2 pregnancies. She was on glyburide with the that she delivered in 2009. She was insulin- dependent her last . She delivered both of those pregnancies in [place]. Patient is obese. 3 hour G TT ordered by Dr. Jennings. History of hypertension 10/31/2012 08/14/20 19 Overview: 10/31/2012Nahed has seen Dr. Sorto for benign hypertension that was diagnosed in 2004. She has been off medication since April 2006. Reading difficulty 10/31/2012 08/14/2019 Overview: 10/31/2012Pt states she has trouble reading. She states she has dyslexia. Family history of defects 10/31/2012 08/14/2019 Overview: 10/31/2012 The FOB was born with cleft lip and so was his aunt as well. History of anesthesia complications 10/31/2012 07/18/2013 Overview: 10/31/2012Patient states she had a blood patch to treat her spinal headaches after the of her second child . Amenorrhea 10/15/2012 02/03/2013 Irregular menstrual bleeding 06/13/201208/2013 Postcoital bleeding 06/13/2012 09/26/2012 Hemorrhoids 05/19/2011 02/03/2013 Closed fracture of metacarpal bone(s), site unsp ecified 01/05/2010 02/03/2013 Glycosuria 07/06/2009 07/18/2013 documented as of this encounter (statuses as of 01/18/2023) [facility] History of Past illness Narrative* Problem Noted Date Resolved Date AMS (altered mental status) 08/20/202208/08 Umbilical hernia 06/07/2017 08/14/2019 Overview: Added automatically from request for surgery [id number] Nipple discharge 02/19/2016 08/14/2019 Lump or mass in breast 02/19/2016 9 Abnormal glucose complicating 03/16/20 13 07/18/2013 Overview: One abnormally elevated value on 3 hour GTT LOC (loss of consciousness) 02/03/201307/08 Rubella non-immune status, antepartum 11/01/2012 07/18/2013 History of 10/31/2012 07/18/2013 Overview: 10/31/2012Nahed had 3 previous C -Sections. She desires a repeat by Dr. Renee Manuel. History of gestational diabetes 10/31/2012 10/13/2020 Overview: 10/31/2012Patient had gestational diabetes with her last 2 pregnancies. She was on glyburide with the that she delivered in 2009. She was insulin- dependent her last . She delivered both of those pregnancies in [place]. Patient is obese. 3 hour G TT ordered by Dr. Jennings. History of hypertension 10/31/2012 08/14/20 Overview: 10/31/2012Nahed has seen Dr. Sorto for benign hypertension that was diagnosed in 2004. She has been off medication since April 2006. Reading difficulty 10/31/2012 08/14/2019 Overview: 10/31/2012Pt states she has trouble reading. She states she has dyslexia. Family history of defects 10/31/2012 08/14/2019 Overview: 10/31/2012 The FOB was born with cleft lip and so was his aunt as well. History of anesthesia complications 10/31/2012 07/18/2013 Overview: 10/31/2012Patient states she had a blood patch to treat her spinal headaches after the of her second child . Amenorrhea 10/15/2012 02/03/2013 Irregular menstrual bleeding 06/13/201208/2013 Postcoital bleeding 06/13/2012 09/26/2012 Hemorrhoids 05/19/2011 02/03/2013 Closed fracture of metacarpal bone(s), site unsp ecified 01/05/2010 02/03/2013 Glycosuria 07/06/2009 07/18/2013 documented as of this encounter (statuses as of 01/23/2023) [facility]-13-2022 History of Past illness Narrative* Problem Noted Date Resolved Date AMS (altered mental status) 08/20/202208/08 Umbilical hernia 06/07/2017 08/14/2019 Overview: Added automatically from request for surgery [id number] Nipple discharge 02/19/2016 08/14/2019 Lump or mass in breast 02/19/2016 9 Abnormal glucose complicating 03/16/20 13 07/18/2013 Overview: One abnormally elevated value on 3 hour GTT LOC (loss of consciousness) 02/03/201307/08 Rubella non-immune status, antepartum 11/01/2012 07/18/2013 History of 10/31/2012 07/18/2013 Overview: 10/31/2012Nahed had 3 previous C -Sections. She desires a repeat by Dr. Renee Manuel. History of gestational diabetes 10/31/2012 10/13/2020 Overview: 10/31/2012Patient had gestational diabetes with her last 2 pregnancies. She was on glyburide with the that she delivered in 2009. She was insulin- dependent her last . She delivered both of those pregnancies in [place]. Patient is obese. 3 hour G TT ordered by Dr. Jennings. History of hypertension 10/31/2012 08/14/20 19 Overview: 10/31/2012Nahed has seen Dr. Sorto for benign hypertension that was diagnosed in 2004. She has been off medication since April 2006. Reading difficulty 10/31/2012 08/14/2019 Overview: 10/31/2012Pt states she has trouble reading. She states she has dyslexia. Family history of defects 10/31/2012 08/14/2019 Overview: 10/31/2012 The FOB was born with cleft lip and so was his aunt as well. History of anesthesia complications 10/31/2012 07/18/2013 Overview: 10/31/2012Patient states she had a blood patch to treat her spinal headaches after the of her second child . Amenorrhea 10/15/2012 02/03/2013 Irregular menstrual bleeding 06/13/201208/2013 Postcoital bleeding 06/13/2012 09/26/2012 Hemorrhoids 05/19/2011 02/03/2013 Closed fracture of metacarpal bone(s), site unsp ecified 01/05/2010 02/03/2013 Glycosuria 07/06/2009 07/18/2013 documented as of this encounter (statuses as of 01/24/2023) [facility] History of Past illness Narrative* Problem Noted Date Resolved Date AMS (altered mental status) 08/20/202208/08 Umbilical hernia 06/07/2017 08/14/2019 Overview: Added automatically from request for surgery [id number] Nipple discharge 02/19/2016 08/14/2019 Lump or mass in breast 02/19/2016 9 Abnormal glucose complicating 03/16/20 13 07/18/2013 Overview: One abnormally elevated value on 3 hour GTT LOC (loss of consciousness) 02/03/201307/08 Rubella non-immune status, antepartum 11/01/2012 07/18/2013 History of 10/31/2012 07/18/2013 Overview: 10/31/2012She had 3 previous C -Sections. She desires a repeat by Dr. Renee Manuel. History of gestational diabetes 10/31/2012 10/13/2020 Overview: 10/31/2012Patient had gestational diabetes with her last 2 pregnancies. She was on glyburide with the that she delivered in 2009. She was insulin- dependent her last . She delivered both of those pregnancies in [place]. Patient is obese. 3 hour G TT ordered by Dr. Jennings. History of hypertension 10/31/2012 08/14/20 19 Overview: 10/31/2012Nahed has seen Dr. Sorto for benign hypertension that was diagnosed in 2004. She has been off medication since April 2006. Reading difficulty 10/31/2012 08/14/2019 Overview: 10/31/2012Pt states she has trouble reading. She states she has dyslexia. Family history of defects 10/31/2012 08/14/2019 Overview: 10/31/2012 The FOB was born with cleft lip and so was his aunt as well. History of anesthesia complications 10/31/2012 07/18/2013 Overview: 10/31/2012Patient states she had a blood patch to treat her spinal headaches after the of her second child . Amenorrhea 10/15/2012 02/03/2013 Irregular menstrual bleeding 06/13/201208/2013 Postcoital bleeding 06/13/2012 09/26/2012 Hemorrhoids 05/19/2011 02/03/2013 Closed fracture of metacarpal bone(s), site unsp ecified 01/05/2010 02/03/2013 Glycosuria 07/06/2009 07/18/2013 documented as of this encounter (statuses as of 01/29/2023) [facility] History of Past illness Narrative* Problem Noted Date Resolved Date AMS (altered mental status) 08/20/202208/08 Umbilical hernia 06/07/2017 08/14/2019 Overview: Added automatically from request for surgery [id number] Nipple discharge 02/19/2016 08/14/2019 Lump or mass in breast 02/19/2016 9 Abnormal glucose complicating 03/16/20 13 07/18/2013 Overview: One abnormally elevated value on 3 hour GTT LOC (loss of consciousness) 02/03/201307/08 Rubella non-immune status, antepartum 11/01/2012 07/18/2013 History of 10/31/2012 07/18/2013 Overview: 10/31/2012Nahed had 3 previous C -Sections. She desires a repeat by Dr. Renee Manuel. History of gestational diabetes 10/31/2012 10/13/2020 Overview: 10/31/2012Patient had gestational diabetes with her last 2 pregnancies. She was on glyburide with the that she delivered in 2009. She was insulin- dependent her last . She delivered both of those pregnancies in [place]. Patient is obese. 3 hour G TT ordered by Dr. Jennings. History of hypertension 10/31/2012 08/14/20 Overview: 10/31/2012Shrayna has seen Dr. Sorto for benign hypertension that was diagnosed in 2004. She has been off medication since April 2006. Reading difficulty 10/31/2012 08/14/2019 Overview: 10/31/2012Pt states she has trouble reading. She states she has dyslexia. Family history of defects 10/31/2012 08/14/2019 Overview: 10/31/2012 The FOB was born with cleft lip and so was his aunt as well. History of anesthesia complications 10/31/2012 07/18/2013 Overview: 10/31/2012Patient states she had a blood patch to treat her spinal headaches after the of her second child . Amenorrhea 10/15/2012 02/03/2013 Irregular menstrual bleeding 06/13/201208/2013 Postcoital bleeding 06/13/2012 09/26/2012 Hemorrhoids 05/19/2011 02/03/2013 Closed fracture of metacarpal bone(s), site unsp ecified 01/05/2010 02/03/2013 Glycosuria 07/06/2009 07/18/2013 documented as of this encounter (statuses as of 02/05/2023) [facility] History of Past illness Narrative* Problem Noted Date Resolved Date AMS (altered mental status) 08/20/202208/08 Umbilical hernia 06/07/2017 08/14/2019 Overview: Added automatically from request for surgery [id number] Nipple discharge 02/19/2016 08/14/2019 Lump or mass in breast 02/19/2016 9 Abnormal glucose complicating 03/16/20 13 07/18/2013 Overview: One abnormally elevated value on 3 hour GTT LOC (loss of consciousness) 02/03/201307/08 Rubella non-immune status, antepartum 11/01/2012 07/18/2013 History of 10/31/2012 07/18/2013 Overview: 10/31/2012Nahed had 3 previous C -Sections. She desires a repeat by Dr. Renee Manuel. History of gestational diabetes 10/31/2012 10/13/2020 Overview: 10/31/2012Patient had gestational diabetes with her last 2 pregnancies. She was on glyburide with the that she delivered in 2009. She was insulin- dependent her last . She delivered both of those pregnancies in [place]. Patient is obese. 3 hour G TT ordered by Dr. Jennings. History of hypertension 10/31/2012 08/14/20 19 Overview: 10/31/2012Nahed has seen Dr. Sorto for benign hypertension that was diagnosed in 2004. She has been off medication since April 2006. Reading difficulty 10/31/2012 08/14/2019 Overview: 10/31/2012Pt states she has trouble reading. She states she has dyslexia. Family history of defects 10/31/2012 08/14/2019 Overview: 10/31/2012 The FOB was born with cleft lip and so was his aunt as well. History of anesthesia complications 10/31/2012 07/18/2013 Overview: 10/31/2012Patient states she had a blood patch to treat her spinal headaches after the of her second child . Amenorrhea 10/15/2012 02/03/2013 Irregular menstrual bleeding 06/13/201208/2013 Postcoital bleeding 06/13/2012 09/26/2012 Hemorrhoids 05/19/2011 02/03/2013 Closed fracture of metacarpal bone(s), site unsp ecified 01/05/2010 02/03/2013 Glycosuria 07/06/2009 07/18/2013 documented as of this encounter (statuses as of 02/07/2023) [facility] History of Past illness Narrative* Problem Noted Date Resolved Date AMS (altered mental status) 08/20/202208/08 Umbilical hernia 06/07/2017 08/14/2019 Overview: Added automatically from request for surgery [id number] Nipple discharge 02/19/2016 08/14/2019 Lump or mass in breast 02/19/2016 9 Abnormal glucose complicating 03/16/20 13 07/18/2013 Overview: One abnormally elevated value on 3 hour GTT LOC (loss of consciousness) 02/03/201307/08 Rubella non-immune status, antepartum 11/01/2012 07/18/2013 History of 10/31/2012 07/18/2013 Overview: 10/31/2012Shrayna had 3 previous C -Sections. She desires a repeat by Dr. Renee Manuel. History of gestational diabetes 10/31/2012 10/13/2020 Overview: 10/31/2012Patient had gestational diabetes with her last 2 pregnancies. She was on glyburide with the that she delivered in 2009. She was insulin- dependent her last . She delivered both of those pregnancies in [place]. Patient is obese. 3 hour G TT ordered by Dr. Jennings. History of hypertension 10/31/2012 08/14/20 19 Overview: 10/31/2012Shrayna has seen Dr. Sorto for benign hypertension that was diagnosed in 2004. She has been off medication since April 2006. Reading difficulty 10/31/2012 08/14/2019 Overview: 10/31/2012Pt states she has trouble reading. She states she has dyslexia. Family history of defects 10/31/2012 08/14/2019 Overview: 10/31/2012 The FOB was born with cleft lip and so was his aunt as well. History of anesthesia complications 10/31/2012 07/18/2013 Overview: 10/31/2012Patient states she had a blood patch to treat her spinal headaches after the of her second child . Amenorrhea 10/15/2012 02/03/2013 Irregular menstrual bleeding 06/13/201208/2013 Postcoital bleeding 06/13/2012 09/26/2012 Hemorrhoids 05/19/2011 02/03/2013 Closed fracture of metacarpal bone(s), site unsp ecified 01/05/2010 02/03/2013 Glycosuria 07/06/2009 07/18/2013 documented as of this encounter (statuses as of 02/16/2023) [facility] History of Past illness Narrative* Problem Noted Date Resolved Date AMS (altered mental status) 08/20/202208/08 Umbilical hernia 06/07/2017 08/14/2019 Overview: Added automatically from request for surgery [id number] Nipple discharge 02/19/2016 08/14/2019 Lump or mass in breast 02/19/2016 9 Abnormal glucose complicating 03/16/20 13 07/18/2013 Overview: One abnormally elevated value on 3 hour GTT LOC (loss of consciousness) 02/03/201307/08 Rubella non-immune status, antepartum 11/01/2012 07/18/2013 History of 10/31/2012 07/18/2013 Overview: 10/31/2012She had 3 previous C -Sections. She desires a repeat by Dr. Renee Manuel. History of gestational diabetes 10/31/2012 10/13/2020 Overview: 10/31/2012Patient had gestational diabetes with her last 2 pregnancies. She was on glyburide with the that she delivered in 2009. She was insulin- dependent her last . She delivered both of those pregnancies in [place]. Patient is obese. 3 hour G TT ordered by Dr. Jennings. History of hypertension 10/31/2012 08/14/20 19 Overview: 10/31/2012Nahed has seen Dr. Sorto for benign hypertension that was diagnosed in 2004. She has been off medication since April 2006. Reading difficulty 10/31/2012 08/14/2019 Overview: 10/31/2012Pt states she has trouble reading. She states she has dyslexia. Family history of defects 10/31/2012 08/14/2019 Overview: 10/31/2012 The FOB was born with cleft lip and so was his aunt as well. History of anesthesia complications 10/31/2012 07/18/2013 Overview: 10/31/2012Patient states she had a blood patch to treat her spinal headaches after the of her second child . Amenorrhea 10/15/2012 02/03/2013 Irregular menstrual bleeding 06/13/201208/2013 Postcoital bleeding 06/13/2012 09/26/2012 Hemorrhoids 05/19/2011 02/03/2013 Closed fracture of metacarpal bone(s), site unsp ecified 01/05/2010 02/03/2013 Glycosuria 07/06/2009 07/18/2013 documented as of this encounter (statuses as of 02/16/2023) [facility] History of Past illness Narrative* Problem Noted Date Resolved Date AMS (altered mental status) 08/20/202208/08 Umbilical hernia 06/07/2017 08/14/2019 Overview: Added automatically from request for surgery [id number] Nipple discharge 02/19/2016 08/14/2019 Lump or mass in breast 02/19/2016 9 Abnormal glucose complicating 03/16/20 13 07/18/2013 Overview: One abnormally elevated value on 3 hour GTT LOC (loss of consciousness) 02/03/201307/08 Rubella non-immune status, antepartum 11/01/2012 07/18/2013 History of 10/31/2012 07/18/2013 Overview: 10/31/2012Nahed had 3 previous C -Sections. She desires a repeat by Dr. Renee Manuel. History of gestational diabetes 10/31/2012 10/13/2020 Overview: 10/31/2012Patient had gestational diabetes with her last 2 pregnancies. She was on glyburide with the that she delivered in 2009. She was insulin- dependent her last . She delivered both of those pregnancies in [place]. Patient is obese. 3 hour G TT ordered by Dr. Jennings. History of hypertension 10/31/2012 08/14/20 Overview: 10/31/2012Nahed has seen Dr. Sorto for benign hypertension that was diagnosed in 2004. She has been off medication since April 2006. Reading difficulty 10/31/2012 08/14/2019 Overview: 10/31/2012Pt states she has trouble reading. She states she has dyslexia. Family history of defects 10/31/2012 08/14/2019 Overview: 10/31/2012 The FOB was born with cleft lip and so was his aunt as well. History of anesthesia complications 10/31/2012 07/18/2013 Overview: 10/31/2012Patient states she had a blood patch to treat her spinal headaches after the of her second child . Amenorrhea 10/15/2012 02/03/2013 Irregular menstrual bleeding 06/13/201208/2013 Postcoital bleeding 06/13/2012 09/26/2012 Hemorrhoids 05/19/2011 02/03/2013 Closed fracture of metacarpal bone(s), site unsp ecified 01/05/2010 02/03/2013 Glycosuria 07/06/2009 07/18/2013 documented as of this encounter (statuses as of 02/19/2023) [facility] History of Past illness Narrative* Problem Noted Date Resolved Date AMS (altered mental status) 08/20/202208/08 Umbilical hernia 06/07/2017 08/14/2019 Overview: Added automatically from request for surgery [id number] Nipple discharge 02/19/2016 08/14/2019 Lump or mass in breast 02/19/2016 9 Abnormal glucose complicating 03/16/20 13 07/18/2013 Overview: One abnormally elevated value on 3 hour GTT LOC (loss of consciousness) 02/03/201307/08 Rubella non-immune status, antepartum 11/01/2012 07/18/2013 History of 10/31/2012 07/18/2013 Overview: 10/31/2012Nahed had 3 previous C -Sections. She desires a repeat by Dr. Renee Manuel. History of gestational diabetes 10/31/2012 10/13/2020 Overview: 10/31/2012Patient had gestational diabetes with her last 2 pregnancies. She was on glyburide with the that she delivered in 2009. She was insulin- dependent her last . She delivered both of those pregnancies in [place]. Patient is obese. 3 hour G TT ordered by Dr. Jennings. History of hypertension 10/31/2012 08/14/20 19 Overview: 10/31/2012Nahed has seen Dr. Sorto for benign hypertension that was diagnosed in 2004. She has been off medication since April 2006. Reading difficulty 10/31/2012 08/14/2019 Overview: 10/31/2012Pt states she has trouble reading. She states she has dyslexia. Family history of defects 10/31/2012 08/14/2019 Overview: 10/31/2012 The FOB was born with cleft lip and so was his aunt as well. History of anesthesia complications 10/31/2012 07/18/2013 Overview: 10/31/2012Patient states she had a blood patch to treat her spinal headaches after the of her second child . Amenorrhea 10/15/2012 02/03/2013 Irregular menstrual bleeding 06/13/201208/2013 Postcoital bleeding 06/13/2012 09/26/2012 Hemorrhoids 05/19/2011 02/03/2013 Closed fracture of metacarpal bone(s), site unsp ecified 01/05/2010 02/03/2013 Glycosuria 07/06/2009 07/18/2013 documented as of this encounter (statuses as of 03/06/2023) [facility] History of Past illness Narrative* Problem Noted Date Resolved Date AMS (altered mental status) 08/20/202208/08 Umbilical hernia 06/07/2017 08/14/2019 Overview: Added automatically from request for surgery [id number] Nipple discharge 02/19/2016 08/14/2019 Lump or mass in breast 02/19/2016 9 Abnormal glucose complicating 03/16/20 13 07/18/2013 Overview: One abnormally elevated value on 3 hour GTT LOC (loss of consciousness) 02/03/201307/08 Rubella non-immune status, antepartum 11/01/2012 07/18/2013 History of 10/31/2012 07/18/2013 Overview: 10/31/2012She had 3 previous C -Sections. She desires a repeat by Dr. Renee Manuel. History of gestational diabetes 10/31/2012 10/13/2020 Overview: 10/31/2012Patient had gestational diabetes with her last 2 pregnancies. She was on glyburide with the that she delivered in 2009. She was insulin- dependent her last . She delivered both of those pregnancies in [place]. Patient is obese. 3 hour G TT ordered by Dr. Jennings. History of hypertension 10/31/2012 08/14/20 19 Overview: 10/31/2012Nahed has seen Dr. Sorto for benign hypertension that was diagnosed in 2004. She has been off medication since April 2006. Reading difficulty 10/31/2012 08/14/2019 Overview: 10/31/2012Pt states she has trouble reading. She states she has dyslexia. Family history of defects 10/31/2012 08/14/2019 Overview: 10/31/2012 The FOB was born with cleft lip and so was his aunt as well. History of anesthesia complications 10/31/2012 07/18/2013 Overview: 10/31/2012Patient states she had a blood patch to treat her spinal headaches after the of her second child . Amenorrhea 10/15/2012 02/03/2013 Irregular menstrual bleeding 06/13/201208/2013 Postcoital bleeding 06/13/2012 09/26/2012 Hemorrhoids 05/19/2011 02/03/2013 Closed fracture of metacarpal bone(s), site unsp ecified 01/05/2010 02/03/2013 Glycosuria 07/06/2009 07/18/2013 documented as of this encounter (statuses as of 03/12/2023) [facility] History of Past illness Narrative* Problem Noted Date Resolved Date AMS (altered mental status) 08/20/202208/08 Umbilical hernia 06/07/2017 08/14/2019 Overview: Added automatically from request for surgery [id number] Nipple discharge 02/19/2016 08/14/2019 Lump or mass in breast 02/19/2016 9 Abnormal glucose complicating 03/16/20 13 07/18/2013 Overview: One abnormally elevated value on 3 hour GTT LOC (loss of consciousness) 02/03/201307/08 Rubella non-immune status, antepartum 11/01/2012 07/18/2013 History of 10/31/2012 07/18/2013 Overview: 10/31/2012Naehd had 3 previous C -Sections. She desires a repeat by Dr. Renee Manuel. History of gestational diabetes 10/31/2012 10/13/2020 Overview: 10/31/2012Patient had gestational diabetes with her last 2 pregnancies. She was on glyburide with the that she delivered in 2009. She was insulin- dependent her last . She delivered both of those pregnancies in [place]. Patient is obese. 3 hour G TT ordered by Dr. Jennings. History of hypertension 10/31/2012 08/14/20 Overview: 10/31/2012Nahed has seen Dr. Sorto for benign hypertension that was diagnosed in 2004. She has been off medication since April 2006. Reading difficulty 10/31/2012 08/14/2019 Overview: 10/31/2012Pt states she has trouble reading. She states she has dyslexia. Family history of defects 10/31/2012 08/14/2019 Overview: 10/31/2012 The FOB was born with cleft lip and so was his aunt as well. History of anesthesia complications 10/31/2012 07/18/2013 Overview: 10/31/2012Patient states she had a blood patch to treat her spinal headaches after the of her second child . Amenorrhea 10/15/2012 02/03/2013 Irregular menstrual bleeding 06/13/201208/2013 Postcoital bleeding 06/13/2012 09/26/2012 Hemorrhoids 05/19/2011 02/03/2013 Closed fracture of metacarpal bone(s), site unsp ecified 01/05/2010 02/03/2013 Glycosuria 07/06/2009 07/18/2013 documented as of this encounter (statuses as of 03/12/2023) [facility] History of Past illness Narrative* Problem Noted Date Resolved Date AMS (altered mental status) 08/20/202208/08 Umbilical hernia 06/07/2017 08/14/2019 Overview: Added automatically from request for surgery [id number] Nipple discharge 02/19/2016 08/14/2019 Lump or mass in breast 02/19/2016 9 Abnormal glucose complicating 03/16/20 13 07/18/2013 Overview: One abnormally elevated value on 3 hour GTT LOC (loss of consciousness) 02/03/201307/08 Rubella non-immune status, antepartum 11/01/2012 07/18/2013 History of 10/31/2012 07/18/2013 Overview: 10/31/2012Nahed had 3 previous C -Sections. She desires a repeat by Dr. Renee Manuel. History of gestational diabetes 10/31/2012 10/13/2020 Overview: 10/31/2012Patient had gestational diabetes with her last 2 pregnancies. She was on glyburide with the that she delivered in 2009. She was insulin- dependent her last . She delivered both of those pregnancies in [place]. Patient is obese. 3 hour G TT ordered by Dr. Jennings. History of hypertension 10/31/2012 08/14/20 19 Overview: 10/31/2012Nahed has seen Dr. Sorto for benign hypertension that was diagnosed in 2004. She has been off medication since April 2006. Reading difficulty 10/31/2012 08/14/2019 Overview: 10/31/2012Pt states she has trouble reading. She states she has dyslexia. Family history of defects 10/31/2012 08/14/2019 Overview: 10/31/2012 The FOB was born with cleft lip and so was his aunt as well. History of anesthesia complications 10/31/2012 07/18/2013 Overview: 10/31/2012Patient states she had a blood patch to treat her spinal headaches after the of her second child . Amenorrhea 10/15/2012 02/03/2013 Irregular menstrual bleeding 06/13/201208/2013 Postcoital bleeding 06/13/2012 09/26/2012 Hemorrhoids 05/19/2011 02/03/2013 Closed fracture of metacarpal bone(s), site unsp ecified 01/05/2010 02/03/2013 Glycosuria 07/06/2009 07/18/2013 documented as of this encounter (statuses as of 03/26/2023) [facility] History of Past illness Narrative* Problem Noted Date Resolved Date AMS (altered mental status) 08/20/202208/08 Umbilical hernia 06/07/2017 08/14/2019 Overview: Added automatically from request for surgery [id number] Nipple discharge 02/19/2016 08/14/2019 Lump or mass in breast 02/19/2016 9 Abnormal glucose complicating 03/16/20 13 07/18/2013 Overview: One abnormally elevated value on 3 hour GTT LOC (loss of consciousness) 02/03/201307/08 Rubella non-immune status, antepartum 11/01/2012 07/18/2013 History of 10/31/2012 07/18/2013 Overview: 10/31/2012Shrayna had 3 previous C -Sections. She desires a repeat by Dr. Renee Manuel. History of gestational diabetes 10/31/2012 10/13/2020 Overview: 10/31/2012Patient had gestational diabetes with her last 2 pregnancies. She was on glyburide with the that she delivered in 2009. She was insulin- dependent her last . She delivered both of those pregnancies in [place]. Patient is obese. 3 hour G TT ordered by Dr. Jennings. History of hypertension 10/31/2012 08/14/20 Overview: 10/31/2012Nahed has seen Dr. Sorto for benign hypertension that was diagnosed in 2004. She has been off medication since April 2006. Reading difficulty 10/31/2012 08/14/2019 Overview: 10/31/2012Pt states she has trouble reading. She states she has dyslexia. Family history of defects 10/31/2012 08/14/2019 Overview: 10/31/2012 The FOB was born with cleft lip and so was his aunt as well. History of anesthesia complications 10/31/2012 07/18/2013 Overview: 10/31/2012Patient states she had a blood patch to treat her spinal headaches after the of her second child . Amenorrhea 10/15/2012 02/03/2013 Irregular menstrual bleeding 06/13/201208/2013 Postcoital bleeding 06/13/2012 09/26/2012 Hemorrhoids 05/19/2011 02/03/2013 Closed fracture of metacarpal bone(s), site unsp ecified 01/05/2010 02/03/2013 Glycosuria 07/06/2009 07/18/2013 documented as of this encounter (statuses as of 03/27/2023) [facility] History of Past illness Narrative* Problem Noted Date Resolved Date AMS (altered mental status) 08/20/202208/08 Umbilical hernia 06/07/2017 08/14/2019 Overview: Added automatically from request for surgery [id number] Nipple discharge 02/19/2016 08/14/2019 Lump or mass in breast 02/19/2016 9 Abnormal glucose complicating 03/16/20 13 07/18/2013 Overview: One abnormally elevated value on 3 hour GTT LOC (loss of consciousness) 02/03/201307/08 Rubella non-immune status, antepartum 11/01/2012 07/18/2013 History of 10/31/2012 07/18/2013 Overview: 10/31/2012She had 3 previous C -Sections. She desires a repeat by Dr. Renee Manuel. History of gestational diabetes 10/31/2012 10/13/2020 Overview: 10/31/2012Patient had gestational diabetes with her last 2 pregnancies. She was on glyburide with the that she delivered in 2009. She was insulin- dependent her last . She delivered both of those pregnancies in [place]. Patient is obese. 3 hour G TT ordered by Dr. Jennings. History of hypertension 10/31/2012 08/14/20 Overview: 10/31/2012Shrayna has seen Dr. Sorto for benign hypertension that was diagnosed in 2004. She has been off medication since April 2006. Reading difficulty 10/31/2012 08/14/2019 Overview: 10/31/2012Pt states she has trouble reading. She states she has dyslexia. Family history of defects 10/31/2012 08/14/2019 Overview: 10/31/2012 The FOB was born with cleft lip and so was his aunt as well. History of anesthesia complications 10/31/2012 07/18/2013 Overview: 10/31/2012Patient states she had a blood patch to treat her spinal headaches after the of her second child . Amenorrhea 10/15/2012 02/03/2013 Irregular menstrual bleeding 06/13/201208/2013 Postcoital bleeding 06/13/2012 09/26/2012 Hemorrhoids 05/19/2011 02/03/2013 Closed fracture of metacarpal bone(s), site unsp ecified 01/05/2010 02/03/2013 Glycosuria 07/06/2009 07/18/2013 documented as of this encounter (statuses as of 04/05/2023) [facility] History of Past illness Narrative* Problem Noted Date Resolved Date AMS (altered mental status) 08/20/202208/08 Umbilical hernia 06/07/2017 08/14/2019 Overview: Added automatically from request for surgery [id number] Nipple discharge 02/19/2016 08/14/2019 Lump or mass in breast 02/19/2016 9 Abnormal glucose complicating 03/16/20 13 07/18/2013 Overview: One abnormally elevated value on 3 hour GTT LOC (loss of consciousness) 02/03/201307/08 Rubella non-immune status, antepartum 11/01/2012 07/18/2013 History of 10/31/2012 07/18/2013 Overview: 10/31/2012Nahed had 3 previous C -Sections. She desires a repeat by Dr. Renee Manuel. History of gestational diabetes 10/31/2012 10/13/2020 Overview: 10/31/2012Patient had gestational diabetes with her last 2 pregnancies. She was on glyburide with the that she delivered in 2009. She was insulin- dependent her last . She delivered both of those pregnancies in [place]. Patient is obese. 3 hour G TT ordered by Dr. Jennings. History of hypertension 10/31/2012 08/14/20 19 Overview: 10/31/2012Nahed has seen Dr. Sorto for benign hypertension that was diagnosed in 2004. She has been off medication since April 2006. Reading difficulty 10/31/2012 08/14/2019 Overview: 10/31/2012Pt states she has trouble reading. She states she has dyslexia. Family history of defects 10/31/2012 08/14/2019 Overview: 10/31/2012 The FOB was born with cleft lip and so was his aunt as well. History of anesthesia complications 10/31/2012 07/18/2013 Overview: 10/31/2012Patient states she had a blood patch to treat her spinal headaches after the of her second child . Amenorrhea 10/15/2012 02/03/2013 Irregular menstrual bleeding 06/13/201208/2013 Postcoital bleeding 06/13/2012 09/26/2012 Hemorrhoids 05/19/2011 02/03/2013 Closed fracture of metacarpal bone(s), site unsp ecified 01/05/2010 02/03/2013 Glycosuria 07/06/2009 07/18/2013 documented as of this encounter (statuses as of 04/06/2023) [facility] History of Past illness Narrative* Problem Noted Date Diagnosed Date Resolved Date AMS (altered mental status) 08/20/2022 08/23/2022 Umbilical hernia 06/07/2017 08/14/2019 Overview: Added automatically from request for surgery [id number] Nipple discharge 02/19/2016 08/14/2019 Lump or mass in breast 02/19/201608/14 Abnormal glucose complicating 03/16/2013 07/18/2013 Overview: One abnormally elevated value on 3 hour GTT LOC (loss of consciousness) 02/03/2013 07/18/2013 Rubella non-immune status, antepartum 11/01/2012 07/18/2013 History of 10/31/2012 013 Overview: 10/31/2012Nahed had 3 previous C -Sections. She desires a repeat by Dr. Renee Manuel. History of gestational diabetes 10/31/2012 10/13/2020 Overview: 10/31/2012Patient had gestational diabetes with her last 2 pregnancies. She was on glyburide with the that she delivered in 2009. She was insulin- dependent her last . She delivered both of those pregnancies in [place]. Patient is obese. 3 hour G TT ordered by Dr. Jennings. History of hypertension 10/31/201204/2019 Overview: 10/31/2012Nahed has seen Dr. Sorto for benign hypertension that was diagnosed in 2004. She has been off medication since April 2006. Reading difficulty 10/31/2012 9 Overview: 10/31/2012Pt states she has trouble reading. She states she has dyslexia. Family history of defects 10/31/2012 08/14/2019 Overview: 10/31/2012 The FOB was born with cleft lip and so was his aunt as well. History of anesthesia complications 10/31/2012 07/18/2013 Overview: 10/31/2012Patient states she had a blood patch to treat her spinal headaches after the of her second child . Amenorrhea 10/15/2012 02/03/2013 Irregular menstrual bleeding 06/13/2012 11/18/2012 Postcoital bleeding 06/13/2012 09/26/20 12 Hemorrhoids 05/19/2011 02/03/2013 Closed fracture of metacarpa l bone(s), site unspecified 01/05/2010 02/03/2013 Glycosuria 07/06/2009 07/18/2013 documented as of this encounter (statuses as of 05/31/2023) [facility] History of Past illness Narrative* Problem Noted Date Diagnosed Date Resolved Date AMS (altered mental status) 08/20/2022 08/23/2022 Umbilical hernia 06/07/2017 08/14/2019 Overview: Added automatically from request for surgery [id number] Nipple discharge 02/19/2016 08/14/2019 Lump or mass in breast 02/19/201608/14 Abnormal glucose complicating 03/16/2013 07/18/2013 Overview: One abnormally elevated value on 3 hour GTT LOC (loss of consciousness) 02/03/2013 07/18/2013 Rubella non-immune status, antepartum 11/01/2012 07/18/2013 History of 10/31/2012 013 Overview: 10/31/2012She had 3 previous C -Sections. She desires a repeat by Dr. Renee Manuel. History of gestational diabetes 10/31/2012 10/13/2020 Overview: 10/31/2012Patient had gestational diabetes with her last 2 pregnancies. She was on glyburide with the that she delivered in 2009. She was insulin- dependent her last . She delivered both of those pregnancies in [place]. Patient is obese. 3 hour G TT ordered by Dr. Jennings. History of hypertension 10/31/201204/2019 Overview: 10/31/2012Nahed has seen Dr. Sorto for benign hypertension that was diagnosed in 2004. She has been off medication since April 2006. Reading difficulty 10/31/2012 9 Overview: 10/31/2012Pt states she has trouble reading. She states she has dyslexia. Family history of defects 10/31/2012 08/14/2019 Overview: 10/31/2012 The FOB was born with cleft lip and so was his aunt as well. History of anesthesia complications 10/31/2012 07/18/2013 Overview: 10/31/2012Patient states she had a blood patch to treat her spinal headaches after the of her second child . Amenorrhea 10/15/2012 02/03/2013 Irregular menstrual bleeding 06/13/2012 11/18/2012 Postcoital bleeding 06/13/2012 09/26/20 12 Hemorrhoids 05/19/2011 02/03/2013 Closed fracture of metacarpa l bone(s), site unspecified 01/05/2010 02/03/2013 Glycosuria 07/06/2009 07/18/2013 documented as of this encounter (statuses as of 07/31/2023) [facility] History of Past illness Narrative* Problem Noted Date Diagnosed Date Resolved Date AMS (altered mental status) 08/20/2022 08/23/2022 Umbilical hernia 06/07/2017 08/14/2019 Overview: Added automatically from request for surgery [id number] Nipple discharge 02/19/2016 08/14/2019 Lump or mass in breast 02/19/201608/14 Abnormal glucose complicating 03/16/2013 07/18/2013 Overview: One abnormally elevated value on 3 hour GTT LOC (loss of consciousness) 02/03/2013 07/18/2013 Rubella non-immune status, antepartum 11/01/2012 07/18/2013 History of 10/31/2012 013 Overview: 10/31/2012Nahed had 3 previous C -Sections. She desires a repeat by Dr. Renee Manuel. History of gestational diabetes 10/31/2012 10/13/2020 Overview: 10/31/2012Patient had gestational diabetes with her last 2 pregnancies. She was on glyburide with the that she delivered in 2009. She was insulin- dependent her last . She delivered both of those pregnancies in [place]. Patient is obese. 3 hour G TT ordered by Dr. Jennings. History of hypertension 10/31/201204/2019 Overview: 10/31/2012Nahed has seen Dr. Sorto for benign hypertension that was diagnosed in 2004. She has been off medication since April 2006. Reading difficulty 10/31/2012 9 Overview: 10/31/2012Pt states she has trouble reading. She states she has dyslexia. Family history of defects 10/31/2012 08/14/2019 Overview: 10/31/2012 The FOB was born with cleft lip and so was his aunt as well. History of anesthesia complications 10/31/2012 07/18/2013 Overview: 10/31/2012Patient states she had a blood patch to treat her spinal headaches after the of her second child . Amenorrhea 10/15/2012 02/03/2013 Irregular menstrual bleeding 06/13/2012 11/18/2012 Postcoital bleeding 06/13/2012 09/26/20 12 Hemorrhoids 05/19/2011 02/03/2013 Closed fracture of metacarpa l bone(s), site unspecified 01/05/2010 02/03/2013 Glycosuria 07/06/2009 07/18/2013 documented as of this encounter (statuses as of 08/16/2023) [facility] History of Past illness Narrative* Problem Noted Date Diagnosed Date Resolved Date AMS (altered mental status) 08/20/2022 08/23/2022 Umbilical hernia 06/07/2017 08/14/2019 Overview: Added automatically from request for surgery [id number] Nipple discharge 02/19/2016 08/14/2019 Lump or mass in breast 02/19/201608/14 Abnormal glucose complicating 03/16/2013 07/18/2013 Overview: One abnormally elevated value on 3 hour GTT LOC (loss of consciousness) 02/03/2013 07/18/2013 Rubella non-immune status, antepartum 11/01/2012 07/18/2013 History of 10/31/2012 013 Overview: 10/31/2012Nahed had 3 previous C -Sections. She desires a repeat by Dr. Renee Manuel. History of gestational diabetes 10/31/2012 10/13/2020 Overview: 10/31/2012Patient had gestational diabetes with her last 2 pregnancies. She was on glyburide with the that she delivered in 2009. She was insulin- dependent her last . She delivered both of those pregnancies in [place]. Patient is obese. 3 hour G TT ordered by Dr. Jennings. History of hypertension 10/31/201204/2019 Overview: 10/31/2012Nahed has seen Dr. Sorto for benign hypertension that was diagnosed in 2004. She has been off medication since April 2006. Reading difficulty 10/31/2012 9 Overview: 10/31/2012Pt states she has trouble reading. She states she has dyslexia. Family history of defects 10/31/2012 08/14/2019 Overview: 10/31/2012 The FOB was born with cleft lip and so was his aunt as well. History of anesthesia complications 10/31/2012 07/18/2013 Overview: 10/31/2012Patient states she had a blood patch to treat her spinal headaches after the of her second child . Amenorrhea 10/15/2012 02/03/2013 Irregular menstrual bleeding 06/13/2012 11/18/2012 Postcoital bleeding 06/13/2012 09/26/20 12 Hemorrhoids 05/19/2011 02/03/2013 Closed fracture of metacarpa l bone(s), site unspecified 01/05/2010 02/03/2013 Glycosuria 07/06/2009 07/18/2013 documented as of this encounter (statuses as of 08/21/2023) [facility] History of Past illness Narrative* Problem Noted Date Diagnosed Date Resolved Date AMS (altered mental status) 08/20/2022 08/23/2022 Umbilical hernia 06/07/2017 08/14/2019 Overview: Added automatically from request for surgery [id number] Nipple discharge 02/19/2016 08/14/2019 Lump or mass in breast 02/19/201608/14 Abnormal glucose complicating 03/16/2013 07/18/2013 Overview: One abnormally elevated value on 3 hour GTT LOC (loss of consciousness) 02/03/2013 07/18/2013 Rubella non-immune status, antepartum 11/01/2012 07/18/2013 History of 10/31/2012 013 Overview: 10/31/2012She had 3 previous C -Sections. She desires a repeat by Dr. Renee Manuel. History of gestational diabetes 10/31/2012 10/13/2020 Overview: 10/31/2012Patient had gestational diabetes with her last 2 pregnancies. She was on glyburide with the that she delivered in 2009. She was insulin- dependent her last . She delivered both of those pregnancies in [place]. Patient is obese. 3 hour G TT ordered by Dr. Jennings. History of hypertension 10/31/201204/2019 Overview: 10/31/2012Nahed has seen Dr. Sorto for benign hypertension that was diagnosed in 2004. She has been off medication since April 2006. Reading difficulty 10/31/2012 9 Overview: 10/31/2012Pt states she has trouble reading. She states she has dyslexia. Family history of defects 10/31/2012 08/14/2019 Overview: 10/31/2012 The FOB was born with cleft lip and so was his aunt as well. History of anesthesia complications 10/31/2012 07/18/2013 Overview: 10/31/2012Patient states she had a blood patch to treat her spinal headaches after the of her second child . Amenorrhea 10/15/2012 02/03/2013 Irregular menstrual bleeding 06/13/2012 11/18/2012 Postcoital bleeding 06/13/2012 09/26/20 12 Hemorrhoids 05/19/2011 02/03/2013 Closed fracture of metacarpa l bone(s), site unspecified 01/05/2010 02/03/2013 Glycosuria 07/06/2009 07/18/2013 documented as of this encounter (statuses as of 09/17/2023) [facility] History of Past illness Narrative* Problem Noted Date Diagnosed Date Resolved Date AMS (altered mental status) 08/20/2022 08/23/2022 Umbilical hernia 06/07/2017 08/14/2019 Overview: Added automatically from request for surgery [id number] Nipple discharge 02/19/2016 08/14/2019 Lump or mass in breast 02/19/201608/14 Abnormal glucose complicating 03/16/2013 07/18/2013 Overview: One abnormally elevated value on 3 hour GTT LOC (loss of consciousness) 02/03/2013 07/18/2013 Rubella non-immune status, antepartum 11/01/2012 07/18/2013 History of 10/31/2012 013 Overview: 10/31/2012Nahed had 3 previous C -Sections. She desires a repeat by Dr. Renee Manuel. History of gestational diabetes 10/31/2012 10/13/2020 Overview: 10/31/2012Patient had gestational diabetes with her last 2 pregnancies. She was on glyburide with the that she delivered in 2009. She was insulin- dependent her last . She delivered both of those pregnancies in [place]. Patient is obese. 3 hour G TT ordered by Dr. Jennings. History of hypertension 10/31/201204/2019 Overview: 10/31/2012She has seen Dr. Sorto for benign hypertension that was diagnosed in 2004. She has been off medication since April 2006. Reading difficulty 10/31/2012 9 Overview: 10/31/2012Pt states she has trouble reading. She states she has dyslexia. Family history of defects 10/31/2012 08/14/2019 Overview: 10/31/2012 The FOB was born with cleft lip and so was his aunt as well. History of anesthesia complications 10/31/2012 07/18/2013 Overview: 10/31/2012Patient states she had a blood patch to treat her spinal headaches after the of her second child . Amenorrhea 10/15/2012 02/03/2013 Irregular menstrual bleeding 06/13/2012 11/18/2012 Postcoital bleeding 06/13/2012 09/26/20 12 Hemorrhoids 05/19/2011 02/03/2013 Closed fracture of metacarpa l bone(s), site unspecified 01/05/2010 02/03/2013 Glycosuria 07/06/2009 07/18/2013 documented as of this encounter (statuses as of 09/18/2023) [facility] History of Past illness Narrative* Problem Noted Date Diagnosed Date Resolved Date AMS (altered mental status) 08/20/2022 08/23/2022 Umbilical hernia 06/07/2017 08/14/2019 Overview: Added automatically from request for surgery [id number] Nipple discharge 02/19/2016 08/14/2019 Lump or mass in breast 02/19/201608/14 Abnormal glucose complicating 03/16/2013 07/18/2013 Overview: One abnormally elevated value on 3 hour GTT LOC (loss of consciousness) 02/03/2013 07/18/2013 Rubella non-immune status, antepartum 11/01/2012 07/18/2013 History of 10/31/2012 013 Overview: 10/31/2012Shrayna had 3 previous C -Sections. She desires a repeat by Dr. Renee Manuel. History of gestational diabetes 10/31/2012 10/13/2020 Overview: 10/31/2012Patient had gestational diabetes with her last 2 pregnancies. She was on glyburide with the that she delivered in 2009. She was insulin- dependent her last . She delivered both of those pregnancies in [place]. Patient is obese. 3 hour G TT ordered by Dr. Jennings. History of hypertension 10/31/201204/2019 Overview: 10/31/2012Nahed has seen Dr. Sorto for benign hypertension that was diagnosed in 2004. She has been off medication since April 2006. Reading difficulty 10/31/2012 9 Overview: 10/31/2012Pt states she has trouble reading. She states she has dyslexia. Family history of defects 10/31/2012 08/14/2019 Overview: 10/31/2012 The FOB was born with cleft lip and so was his aunt as well. History of anesthesia complications 10/31/2012 07/18/2013 Overview: 10/31/2012Patient states she had a blood patch to treat her spinal headaches after the of her second child . Amenorrhea 10/15/2012 02/03/2013 Irregular menstrual bleeding 06/13/2012 11/18/2012 Postcoital bleeding 06/13/2012 09/26/20 12 Hemorrhoids 05/19/2011 02/03/2013 Closed fracture of metacarpa l bone(s), site unspecified 01/05/2010 02/03/2013 Glycosuria 07/06/2009 07/18/2013 documented as of this encounter (statuses as of 11/08/2023) [facility] History of Past illness Narrative* Problem Noted Date Diagnosed Date Resolved Date AMS (altered mental status) 08/20/2022 08/23/2022 Umbilical hernia 06/07/2017 08/14/2019 Overview: Added automatically from request for surgery [id number] Nipple discharge 02/19/2016 08/14/2019 Lump or mass in breast 02/19/201608/14 Abnormal glucose complicating 03/16/2013 07/18/2013 Overview: One abnormally elevated value on 3 hour GTT LOC (loss of consciousness) 02/03/2013 07/18/2013 Rubella non-immune status, antepartum 11/01/2012 07/18/2013 History of 10/31/2012 013 Overview: 10/31/2012Nahed had 3 previous C -Sections. She desires a repeat by Dr. Renee Manuel. History of gestational diabetes 10/31/2012 10/13/2020 Overview: 10/31/2012Patient had gestational diabetes with her last 2 pregnancies. She was on glyburide with the that she delivered in 2009. She was insulin- dependent her last . She delivered both of those pregnancies in [place]. Patient is obese. 3 hour G TT ordered by Dr. Jennings. History of hypertension 10/31/201204/2019 Overview: 10/31/2012Nahed has seen Dr. Sorto for benign hypertension that was diagnosed in 2004. She has been off medication since April 2006. Reading difficulty 10/31/2012 9 Overview: 10/31/2012Pt states she has trouble reading. She states she has dyslexia. Family history of defects 10/31/2012 08/14/2019 Overview: 10/31/2012 The FOB was born with cleft lip and so was his aunt as well. History of anesthesia complications 10/31/2012 07/18/2013 Overview: 10/31/2012Patient states she had a blood patch to treat her spinal headaches after the of her second child . Amenorrhea 10/15/2012 02/03/2013 Irregular menstrual bleeding 06/13/2012 11/18/2012 Postcoital bleeding 06/13/2012 09/26/20 12 Hemorrhoids 05/19/2011 02/03/2013 Closed fracture of metacarpa l bone(s), site unspecified 01/05/2010 02/03/2013 Glycosuria 07/06/2009 07/18/2013 documented as of this encounter (statuses as of 11/09/2023) [facility] History of Past illness Narrative* Problem Noted Date Diagnosed Date Resolved Date AMS (altered mental status) 08/20/2022 08/23/2022 Umbilical hernia 06/07/2017 08/14/2019 Overview: Added automatically from request for surgery [id number] Nipple discharge 02/19/2016 08/14/2019 Lump or mass in breast 02/19/201608/14 Abnormal glucose complicating 03/16/2013 07/18/2013 Overview: One abnormally elevated value on 3 hour GTT LOC (loss of consciousness) 02/03/2013 07/18/2013 Rubella non-immune status, antepartum 11/01/2012 07/18/2013 History of 10/31/2012 013 Overview: 10/31/2012She had 3 previous C -Sections. She desires a repeat by Dr. Renee Manuel. History of gestational diabetes 10/31/2012 10/13/2020 Overview: 10/31/2012Patient had gestational diabetes with her last 2 pregnancies. She was on glyburide with the that she delivered in 2009. She was insulin- dependent her last . She delivered both of those pregnancies in [place]. Patient is obese. 3 hour G TT ordered by Dr. Jennings. History of hypertension 10/31/201204/2019 Overview: 10/31/2012Nahed has seen Dr. Sorto for benign hypertension that was diagnosed in 2004. She has been off medication since April 2006. Reading difficulty 10/31/2012 9 Overview: 10/31/2012Pt states she has trouble reading. She states she has dyslexia. Family history of defects 10/31/2012 08/14/2019 Overview: 10/31/2012 The FOB was born with cleft lip and so was his aunt as well. History of anesthesia complications 10/31/2012 07/18/2013 Overview: 10/31/2012Patient states she had a blood patch to treat her spinal headaches after the of her second child . Amenorrhea 10/15/2012 02/03/2013 Irregular menstrual bleeding 06/13/2012 11/18/2012 Postcoital bleeding 06/13/2012 09/26/20 12 Hemorrhoids 05/19/2011 02/03/2013 Closed fracture of metacarpa l bone(s), site unspecified 01/05/2010 02/03/2013 Glycosuria 07/06/2009 07/18/2013 documented as of this encounter (statuses as of 11/29/2023) [facility] History of Past illness Narrative* Problem Noted Date Diagnosed Date Resolved Date AMS (altered mental status) 08/20/2022 08/23/2022 Umbilical hernia 06/07/2017 08/14/2019 Overview: Added automatically from request for surgery [id number] Nipple discharge 02/19/2016 08/14/2019 Lump or mass in breast 02/19/201608/14 Abnormal glucose complicating 03/16/2013 07/18/2013 Overview: One abnormally elevated value on 3 hour GTT LOC (loss of consciousness) 02/03/2013 07/18/2013 Rubella non-immune status, antepartum 11/01/2012 07/18/2013 History of 10/31/2012 013 Overview: 10/31/2012Nahed had 3 previous C -Sections. She desires a repeat by Dr. Renee Manuel. History of gestational diabetes 10/31/2012 10/13/2020 Overview: 10/31/2012Patient had gestational diabetes with her last 2 pregnancies. She was on glyburide with the that she delivered in 2009. She was insulin- dependent her last . She delivered both of those pregnancies in [place]. Patient is obese. 3 hour G TT ordered by Dr. Jennings. History of hypertension 10/31/201204/2019 Overview: 10/31/2012Nahed has seen Dr. Sorto for benign hypertension that was diagnosed in 2004. She has been off medication since April 2006. Reading difficulty 10/31/2012 9 Overview: 10/31/2012Pt states she has trouble reading. She states she has dyslexia. Family history of defects 10/31/2012 08/14/2019 Overview: 10/31/2012 The FOB was born with cleft lip and so was his aunt as well. History of anesthesia complications 10/31/2012 07/18/2013 Overview: 10/31/2012Patient states she had a blood patch to treat her spinal headaches after the of her second child . Amenorrhea 10/15/2012 02/03/2013 Irregular menstrual bleeding 06/13/2012 11/18/2012 Postcoital bleeding 06/13/2012 09/26/20 12 Hemorrhoids 05/19/2011 02/03/2013 Closed fracture of metacarpa l bone(s), site unspecified 01/05/2010 02/03/2013 Glycosuria 07/06/2009 07/18/2013 documented as of this encounter (statuses as of 12/26/2023) [facility] History of Past illness Narrative* Problem Noted Date Diagnosed Date Resolved Date AMS (altered mental status) 08/20/2022 08/23/2022 Umbilical hernia 06/07/2017 08/14/2019 Overview: Added automatically from request for surgery [id number] Nipple discharge 02/19/2016 08/14/2019 Lump or mass in breast 02/19/201608/14 Abnormal glucose complicating 03/16/2013 07/18/2013 Overview: One abnormally elevated value on 3 hour GTT LOC (loss of consciousness) 02/03/2013 07/18/2013 Rubella non-immune status, antepartum 11/01/2012 07/18/2013 History of 10/31/2012 013 Overview: 10/31/2012Nahed had 3 previous C -Sections. She desires a repeat by Dr. Renee Manuel. History of gestational diabetes 10/31/2012 10/13/2020 Overview: 10/31/2012Patient had gestational diabetes with her last 2 pregnancies. She was on glyburide with the that she delivered in 2009. She was insulin- dependent her last . She delivered both of those pregnancies in [place]. Patient is obese. 3 hour G TT ordered by Dr. Jennings. History of hypertension 10/31/201204/2019 Overview: 10/31/2012Nahed has seen Dr. Sorto for benign hypertension that was diagnosed in 2004. She has been off medication since April 2006. Reading difficulty 10/31/2012 9 Overview: 10/31/2012Pt states she has trouble reading. She states she has dyslexia. Family history of defects 10/31/2012 08/14/2019 Overview: 10/31/2012 The FOB was born with cleft lip and so was his aunt as well. History of anesthesia complications 10/31/2012 07/18/2013 Overview: 10/31/2012Patient states she had a blood patch to treat her spinal headaches after the of her second child . Amenorrhea 10/15/2012 02/03/2013 Irregular menstrual bleeding 06/13/2012 11/18/2012 Postcoital bleeding 06/13/2012 09/26/20 12 Hemorrhoids 05/19/2011 02/03/2013 Closed fracture of metacarpa l bone(s), site unspecified 01/05/2010 02/03/2013 Glycosuria 07/06/2009 07/18/2013 documented as of this encounter (statuses as of 12/28/2023) [facility] History of Past illness Narrative* Problem Noted Date Diagnosed Date Resolved Date AMS (altered mental status) 08/20/2022 08/23/2022 Umbilical hernia 06/07/2017 08/14/2019 Overview: Added automatically from request for surgery [id number] Nipple discharge 02/19/2016 08/14/2019 Lump or mass in breast 02/19/201608/14 Abnormal glucose complicating 03/16/2013 07/18/2013 Overview: One abnormally elevated value on 3 hour GTT LOC (loss of consciousness) 02/03/2013 07/18/2013 Rubella non-immune status, antepartum 11/01/2012 07/18/2013 History of 10/31/2012 013 Overview: 10/31/2012She had 3 previous C -Sections. She desires a repeat by Dr. Renee Manuel. History of gestational diabetes 10/31/2012 10/13/2020 Overview: 10/31/2012Patient had gestational diabetes with her last 2 pregnancies. She was on glyburide with the that she delivered in 2009. She was insulin- dependent her last . She delivered both of those pregnancies in [place]. Patient is obese. 3 hour G TT ordered by Dr. Jennings. History of hypertension 10/31/201204/2019 Overview: 10/31/2012Nahed has seen Dr. Sorto for benign hypertension that was diagnosed in 2004. She has been off medication since April 2006. Reading difficulty 10/31/2012 9 Overview: 10/31/2012Pt states she has trouble reading. She states she has dyslexia. Family history of defects 10/31/2012 08/14/2019 Overview: 10/31/2012 The FOB was born with cleft lip and so was his aunt as well. History of anesthesia complications 10/31/2012 07/18/2013 Overview: 10/31/2012Patient states she had a blood patch to treat her spinal headaches after the of her second child . Amenorrhea 10/15/2012 02/03/2013 Irregular menstrual bleeding 06/13/2012 11/18/2012 Postcoital bleeding 06/13/2012 09/26/20 12 Hemorrhoids 05/19/2011 02/03/2013 Closed fracture of metacarpa l bone(s), site unspecified 01/05/2010 02/03/2013 Glycosuria 07/06/2009 07/18/2013 documented as of this encounter (statuses as of 01/01/2024) [facility] History of Past illness Narrative* Problem Noted Date Diagnosed Date Resolved Date AMS (altered mental status) 08/20/2022 08/23/2022 Umbilical hernia 06/07/2017 08/14/2019 Overview: Added automatically from request for surgery [id number] Nipple discharge 02/19/2016 08/14/2019 Lump or mass in breast 02/19/201608/14 Abnormal glucose complicating 03/16/2013 07/18/2013 Overview: One abnormally elevated value on 3 hour GTT LOC (loss of consciousness) 02/03/2013 07/18/2013 Rubella non-immune status, antepartum 11/01/2012 07/18/2013 History of 10/31/2012 013 Overview: 10/31/2012Nahed had 3 previous C -Sections. She desires a repeat by Dr. Renee Manuel. History of gestational diabetes 10/31/2012 10/13/2020 Overview: 10/31/2012Patient had gestational diabetes with her last 2 pregnancies. She was on glyburide with the that she delivered in 2009. She was insulin- dependent her last . She delivered both of those pregnancies in [place]. Patient is obese. 3 hour G TT ordered by Dr. Jennings. History of hypertension 10/31/201204/2019 Overview: 10/31/2012Nahed has seen Dr. Sorto for benign hypertension that was diagnosed in 2004. She has been off medication since April 2006. Reading difficulty 10/31/2012 9 Overview: 10/31/2012Pt states she has trouble reading. She states she has dyslexia. Family history of defects 10/31/2012 08/14/2019 Overview: 10/31/2012 The FOB was born with cleft lip and so was his aunt as well. History of anesthesia complications 10/31/2012 07/18/2013 Overview: 10/31/2012Patient states she had a blood patch to treat her spinal headaches after the of her second child . Amenorrhea 10/15/2012 02/03/2013 Irregular menstrual bleeding 06/13/2012 11/18/2012 Postcoital bleeding 06/13/2012 09/26/20 12 Hemorrhoids 05/19/2011 02/03/2013 Closed fracture of metacarpa l bone(s), site unspecified 01/05/2010 02/03/2013 Glycosuria 07/06/2009 07/18/2013 documented as of this encounter (statuses as of 01/24/2024) [facility] History of Past illness Narrative* Problem Noted Date Diagnosed Date Resolved Date AMS (altered mental status) 08/20/2022 08/23/2022 Umbilical hernia 06/07/2017 08/14/2019 Overview: Added automatically from request for surgery [id number] Nipple discharge 02/19/2016 08/14/2019 Lump or mass in breast 02/19/201608/14 Abnormal glucose complicating 03/16/2013 07/18/2013 Overview: One abnormally elevated value on 3 hour GTT LOC (loss of consciousness) 02/03/2013 07/18/2013 Rubella non-immune status, antepartum 11/01/2012 07/18/2013 History of 10/31/2012 013 Overview: 10/31/2012Shrayna had 3 previous C -Sections. She desires a repeat by Dr. Renee Manuel. History of gestational diabetes 10/31/2012 10/13/2020 Overview: 10/31/2012Patient had gestational diabetes with her last 2 pregnancies. She was on glyburide with the that she delivered in 2009. She was insulin- dependent her last . She delivered both of those pregnancies in [place]. Patient is obese. 3 hour G TT ordered by Dr. Jennings. History of hypertension 10/31/201204/2019 Overview: 10/31/2012Shrayna has seen Dr. Sorto for benign hypertension that was diagnosed in 2004. She has been off medication since April 2006. Reading difficulty 10/31/2012 9 Overview: 10/31/2012Pt states she has trouble reading. She states she has dyslexia. Family history of defects 10/31/2012 08/14/2019 Overview: 10/31/2012 The FOB was born with cleft lip and so was his aunt as well. History of anesthesia complications 10/31/2012 07/18/2013 Overview: 10/31/2012Patient states she had a blood patch to treat her spinal headaches after the of her second child . Amenorrhea 10/15/2012 02/03/2013 Irregular menstrual bleeding 06/13/2012 11/18/2012 Postcoital bleeding 06/13/2012 09/26/20 12 Hemorrhoids 05/19/2011 02/03/2013 Closed fracture of metacarpa l bone(s), site unspecified 01/05/2010 02/03/2013 Glycosuria 07/06/2009 07/18/2013 documented as of this encounter (statuses as of 01/25/2024) [facility] History of Past illness Narrative* Problem Noted Date Diagnosed Date Resolved Date AMS (altered mental status) 08/20/2022 08/23/2022 Umbilical hernia 06/07/2017 08/14/2019 Overview: Added automatically from request for surgery [id number] Nipple discharge 02/19/2016 08/14/2019 Lump or mass in breast 02/19/201608/14 Abnormal glucose complicating 03/16/2013 07/18/2013 Overview: One abnormally elevated value on 3 hour GTT LOC (loss of consciousness) 02/03/2013 07/18/2013 Rubella non-immune status, antepartum 11/01/2012 07/18/2013 History of 10/31/2012 013 Overview: 10/31/2012Nahed had 3 previous C -Sections. She desires a repeat by Dr. Renee Manuel. History of gestational diabetes 10/31/2012 10/13/2020 Overview: 10/31/2012Patient had gestational diabetes with her last 2 pregnancies. She was on glyburide with the that she delivered in 2009. She was insulin- dependent her last . She delivered both of those pregnancies in [place]. Patient is obese. 3 hour G TT ordered by Dr. Jennings. History of hypertension 10/31/201204/2019 Overview: 10/31/2012Nahed has seen Dr. Sorto for benign hypertension that was diagnosed in 2004. She has been off medication since April 2006. Reading difficulty 10/31/2012 9 Overview: 10/31/2012Pt states she has trouble reading. She states she has dyslexia. Family history of defects 10/31/2012 08/14/2019 Overview: 10/31/2012 The FOB was born with cleft lip and so was his aunt as well. History of anesthesia complications 10/31/2012 07/18/2013 Overview: 10/31/2012Patient states she had a blood patch to treat her spinal headaches after the of her second child . Amenorrhea 10/15/2012 02/03/2013 Irregular menstrual bleeding 06/13/2012 11/18/2012 Postcoital bleeding 06/13/2012 09/26/20 12 Hemorrhoids 05/19/2011 02/03/2013 Closed fracture of metacarpa l bone(s), site unspecified 01/05/2010 02/03/2013 Glycosuria 07/06/2009 07/18/2013 documented as of this encounter (statuses as of 01/25/2024) [facility]-27-[facility] History of Present illness Narrative* Karolyn Palma, RAYMON.PUBLIC SAFETY TELECOMMUNICATOR - 07/04/2022 1:23 PM EDT VIRTUAL VISIT PROGRESS NOTE This is a virtual visit using [employer] video visit. It required patient-provider interaction for themedical decision making as documented below. Reinaldo Warren is a 37 year old female seen for muscle pain. Last saw PCP virtual 08/08/21, andlast in person visit was 11/02/20. Sees psychiatry for ongoing anxiety/depression, PTSD. Patient reports ongoing muscle pain in upper shoulders/neck, worse with stress. Went to the ER in [place] this past week and was given a muscle relaxer shot and oral medication (flexeril) that helps these symptoms. Has had these symptoms for a couple months. Mood is improving, but has a lot going on. Recently moved to [place], may switch PCP. Has tried ice, heat, cold showers, wrap around her shoulders, and tylenol, these are all somewhat helpful, but the muscle relaxer works the best. HISTORY REVIEWED (electronic chart updated): PAST MEDICAL HISTORY Diagnosis Date Diabetes mellitus of mother, complicating , childbirth, or the puerperium, unspecified as to episode of care(648.00) Gestational diabetes Dysthymic disorder Depression (non-psychotic), Essential hypertension, benign Hemorrhoids 05/19/2011 History of gestational diabetes 10/31/2012 10/31/2012Patient had gestational diabetes with her last 2 pregnancies. She was on glyburide with the that she delivered in 2009. She was insulin- dependent her last . She deliveredboth of those pregnancies in [place]. Patient is obese. 3 hour G TT ordered by Dr. Jennings. Migraine, unspecified, with intractable migraine, so stated, without mention of status migrainosus Migraine Nipple discharge 02/19/2016 PMH - PAST MEDICAL HISTORY OF DYSLEXIA PMH - PAST MEDICAL HISTORY OF 1988 FRACTURED LEFT LEG PMH - PAST MEDICAL HISTORY OF 01/2007 HOSPITALIZED FOR RUPTURED OVARIAN CYST Seizure disorder (HCC) Seizures (HCC) SPINAL HEADACHE WITH DELIVERIES IN 2009&2011 Type 2 diabetes mellitus (HCC) Unspecified asthma(493.90) PAST SURGICAL HISTORY Procedure Laterality Date DELIVERY ONLY 2008,10/14/2009 , low cervicalx2 DELIVERY ONLY 06/06/2013 , low transverse COLONOSCOPY FLX DX W/COLLJ SPEC WHEN PFRMD 11/28/2013 Colonoscopy ESOPHAGOGASTRODUODENOSCOPY TRANSORAL DIAGNOSTIC 11/28/2013 EGD HYSTEROSCOPY BX W/WO D&C 08/14/2019 hysteroscoy D&C w/ mirena insertion LIG/TRNSXJ FLP TUBE ABDL/VAG APPR UNI/BI 06/06/2013 Tubal ligation REMOVAL OF GALLBLADDER 10/07/2018 [place] REPAIR UMBILICAL HERNIA 06/20/[address] medium mesh [facility] FAMILY HISTORY Problem Relation Age of Onset Hypertension Father Diabetes Father Lipids Father Asthma Mother Hypertension Mother Breast Cancer Mother Diabetes Mother Strabismus Sister Cancer Maternal Grandfather LUNG CANCER Heart Maternal Grandmother SD Cancer Paternal Grandfather THROAT CANCER Breast Cancer Maternal Aunt Breast Cancer Paternal Aunt Coronary Artery Disease No Family History Thyroid No Family History Blood Disease No Family History Blood Clots No Family History Factor 5 Leiden No Family History DVT No Family History Stroke No Family History Systemic Lupus Erythematosus No Family History Multiple Sclerosis No Family History Bipolar disorder No Family History Schizophrenia No Family History Alzheimer's Disease No Family History Dementia No Family History Parkinson s Disease No Family History Aneurysm No Family History COPD No Family History Kidney Disease No Family History Social History Tobacco Use Smoking status: Former Packs/day: 0.50 Years: 10.00 Pack years: 5.00 Types: Cigarettes Quit date: 04/02/2019 Years since quittin.2 Smokeless tobacco: Never Vaping Use Vaping Use: Never used Substance Use Topics Alcohol use: No Drug use: Never Current Outpatient Medications Medication Sig busPIRone (BUSPAR) 10 mg tablet Take 1 tablet by mouth twice daily. PARoxetine (PAXIL) 40 mg tablet Take 1 tablet by mouth once daily. brexpiprazole (REXULTI) 1 mg tablet Take 1.5 tablets by mouth once daily. hydrOXYzine HCl (ATARAX) 25 mg tablet Take 1 tablet by mouth three times daily as needed for anxiety. May take 1/2 tablet FIASP FLEXTOUCH U-100 INSULIN 100 unit/mL (3 mL) pen INJECT 8 UNITS SUBCUTANEOUSLY THREE TIMES DAILY BEFORE MEALS. insulin glargine (BASAGLAR KWIKPEN U-100 INSULIN) 100 unit/mL (3 mL) Inject 20 units SQ daily at bedtime. midodrine (PROAMITINE) 5 mg tablet Take 1 tablet by mouth three times daily. dulaglutide (TRULICITY) 1.5 mg/0.5 mL pen injector Inject 1.5 mg subcutaneously one time a week. flash glucose scanning reader (FREESTYLE EVERARDO 2 READER) To use with the freestyle everardo sensor. Uncontrolled type 2 diabetes Lancets lancets Test blood sugar(s) 4 times daily. Dx: Type 2 DM - Uncontrolled E11.65 Insulin: Yes albuterol HFA (PROAIR HFA) 90 mcg/actuation inhaler Inhale 2 Puffs as instructed every 4 hours as needed for wheezing/shortness of breath. lisinopril (ZESTRIL, PRINIVIL) 40 mg tablet TAKE 1 TABLET BY MOUTH EVERY DAY medroxyPROGESTERone (PROVERA) 10 mg tablet Take 1 tablet by mouth as directed. for 7 days a month blood sugar diagnostic (FREESTYLE LITE STRIPS) test strip Test blood sugar(s) 3 times daily. Dx: Type 2 DM - Controlled E11.9 Insulin: No Blood Pressure Test Kit-Large Check blood pressure weekly and as needed. No current facility-administered medications for this visit. ALLERGIES Allergen Reactions Augmentin [Amoxicil* Mental Status Change Shellfish Swelling Tylenol #3 [Codeine] Swelling Venom-Honey Bee Swelling REVIEW OF SYSTEMS: As above PHYSICAL EXAMINATION: VIDEO EXAM: (if completed, performed via video enabled technology) GENERAL: alert and appropriate, in no distress, well-hydrated, well nourished, and happy, smiling, interactive 1. Muscle tightness Continue supportive care and flexeril PRN. Due for in-office visit with primary care, please schedule visit with Dr. Foster or new PCP if transferring care, due for labs, health maintenance items discussion, etc. - cyclobenzaprine (FLEXERIL) 10 mg tablet; Take 1 tablet by mouth three times daily as needed for muscle spasm. Dispense: 30 tablet; Refill: 1 Karolyn Palma APRN.CNP [facility] History of Present illness Narrative* Jeanette Miller APRN.CNP - 06/13/2022 2:27 PM EDT Images from the original note were not included. PSYC FOLLOW UP - PSYCHIATRIC PROGRESS NOTE CC: Follow up for medication management for depression and anxiety With the patient consent, visit was performed virtually. HPI: Since her last appointment in December 2021, she started and then quit a job. She also has got a new house and sold their old house. She felt that this was pretty stressful but that her realtor was helpful and supportive of her during this time. She says that it was particularly difficult when they were showing their house because of having people come into my house and wondering what they werethinking. She is super happy to have gotten the house that they ended up in because I super love it particularly because she was having trouble keeping up with the fixing of their old house. She started a new job 2 weeks ago at the request of her since moving into the new house. 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 Her kids are back in school and doing sports which is also keeping her busy. She does feel better now that they are starting to get more settled in the new house. She did have her dog euthanized a couple weeks before the move because she got sick unexpectedly. She feels her anxiety grows as she is getting ready to go to work and as she goes through her shift and then will feel better after she isdone with her shift and goes home. She has continued to take her medications consistently and generally feels that they work well. She has continued to have trouble with her sleep. She has not gottenscheduled with sleep medicine and was encouraged to do so. She has not been taking the hydroxyzine as needed and is agreeable to restart that to help with anxiety due to her job. Risks and benefits of the medication, including any black box warnings, were discussed with the patient. Interval Progress: Same PATIENT DATA: Generalized Anxiety Disorder Scale (MILENA-7) MILENA - 7 SCORES 04/23/2020 MILENA-7 Score 19 (0-4) minimal anxiety, (5-9) mild anxiety, (10-14) moderate anxiety, (15-21) severe anxiety Patient Health Questionnaire (PHQ-9) PHQ-9 04/23/2020 07/01/2020 02/16/2021 Score 21 16 6 (0-4) minimal depression, (5-9) mild depression, (10-14) moderate depression, (15-19) moderately severe depression, (20-27) severe depression PROMIS Global Health PROMIS Global Health - (T-Scores - the mean of general population = 50. Five points is a clinicallymeaningful difference.) 05/07/2017 07/01/2020 02/16/2021 Physical T-Score 50.8 - 50.8 Mental T-Score 53.3 28.4 - PAST MEDICAL HISTORY Diagnosis Date Diabetes mellitus of mother, complicating , childbirth, or the puerperium, unspecified as to episode of care(648.00) Gestational diabetes Dysthymic disorder Depression (non-psychotic), Essential hypertension, benign Hemorrhoids 05/19/2011 History of gestational diabetes 10/31/2012 10/31/2012Patient had gestational diabetes with her last 2 pregnancies. She was on glyburide with the that she delivered in 2009. She was insulin- dependent her last . She deliveredboth of those pregnancies in [place]. Patient is obese. 3 hour G TT ordered by Dr. Jennings. Migraine, unspecified, with intractable migraine, so stated, without mention of status migrainosus Migraine Nipple discharge 02/19/2016 PMH - PAST MEDICAL HISTORY OF DYSLEXIA PMH - PAST MEDICAL HISTORY OF 1988 FRACTURED LEFT LEG PMH - PAST MEDICAL HISTORY OF 01/2007 HOSPITALIZED FOR RUPTURED OVARIAN CYST Seizure disorder (HCC) Seizures (HCC) SPINAL HEADACHE WITH DELIVERIES IN 2009&2011 Type 2 diabetes mellitus (HCC) Unspecified asthma(493.90) PAST SURGICAL HISTORY Procedure Laterality Date DELIVERY ONLY 2008,10/14/2009 , low cervicalx2 DELIVERY ONLY 06/06/2013 , low transverse COLONOSCOPY FLX DX W/COLLJ SPEC WHEN PFRMD 11/28/2013 Colonoscopy ESOPHAGOGASTRODUODENOSCOPY TRANSORAL DIAGNOSTIC 11/28/2013 EGD HYSTEROSCOPY BX W/WO D&C 08/14/2019 hysteroscoy D&C w/ mirena insertion LIG/TRNSXJ FLP TUBE ABDL/VAG APPR UNI/BI 06/06/2013 Tubal ligation REMOVAL OF GALLBLADDER 10/07/2018 [place] REPAIR UMBILICAL HERNIA 06/20/[address] medium mesh [facility] Current Outpatient Medications Medication Sig Dispense Refill busPIRone (BUSPAR) 10 mg tablet TAKE 1 TABLET BY MOUTH TWICE A DAY 60 tablet 0 PARoxetine (PAXIL) 40 mg tablet TAKE 1 TABLET BY MOUTH EVERY DAY 90 tablet 0 FIASP FLEXTOUCH U-100 INSULIN 100 unit/mL (3 mL) pen INJECT 8 UNITS SUBCUTANEOUSLY THREE TIMES DAILY BEFORE MEALS. 5 Pen 1 brexpiprazole (REXULTI) 1 mg tablet Take 1.5 tablets by mouth once daily. 135 tablet 0 insulin glargine (BASAGLAR KWIKPEN U-100 INSULIN) 100 unit/mL (3 mL) Inject 20 units SQ daily at bedtime. 15 mL 3 midodrine (PROAMITINE) 5 mg tablet Take 1 tablet by mouth three times daily. dulaglutide (TRULICITY) 1.5 mg/0.5 mL pen injector Inject 1.5 mg subcutaneously one time a week. 2 mL 6 flash glucose sensor (FREESTYLE EVERARDO 2 SENSOR) kit To check blood sugar 3-4 times a day. Uncontrolled type 2 diabetes 6 Kit 3 flash glucose scanning reader (FREESTYLE EVERARDO 2 READER) To use with the freestyle everardo sensor. Uncontrolled type 2 diabetes 1 Each 0 Lancets lancets Test blood sugar(s) 4 times daily. Dx: Type 2 DM - Uncontrolled E11.65 Insulin: Gpm139 Each 11 albuterol HFA (PROAIR HFA) 90 mcg/actuation inhaler Inhale 2 Puffs as instructed every 4 hours as needed for wheezing/shortness of breath. 8 g 5 lisinopril (ZESTRIL, PRINIVIL) 40 mg tablet TAKE 1 TABLET BY MOUTH EVERY DAY 90 tablet 2 medroxyPROGESTERone (PROVERA) 10 mg tablet Take 1 tablet by mouth as directed. for 7 days a month 7tablet 12 blood sugar diagnostic (FREESTYLE LITE STRIPS) test strip Test blood sugar(s) 3 times daily. Dx: Type 2 DM - Controlled E11.9 Insulin: No 100 Strip 3 Blood Pressure Test Kit-Large Check blood pressure weekly and as needed. 1 Each 0 No current facility-administered medications for this visit. ROS: PSYCH: See HPI All other systems negative. PFSH: See HPI VITAL SIGNS: There were no vitals filed for this visit. MENTAL STATUS EXAM: CONSTITUTIONAL: Well groomed, Appropriately dressed, Casually dressed, Well developed, Well nourished ORIENTATION: Person, Place, Time and Situation MEMORY: No deficiencies noted CONCENTRATION: Normal MOOD: euthymic AFFECT: Full and appropriate to topic SPEECH : Clear & distinct LANGUAGE : Normal ASSOCIATIONS: Intact THOUGHT PROCESS : Logical, Coherent, and Rational PROGRESSION : There was no evidence of disturbance in thought perception or progression. FUND OF KNOWLEDGE : Appropriate and Adequate SUICIDE: Denies suicidal thoughts, plan, or intent. HOMICIDE: Denies homicidal thoughts, plan, or intent. DATA REVIEWED: Electronic medical record DIAGNOSIS: PRIMARY: Anxiety Disorder Posttraumatic Stress Disorder - Chronic GAF: 60 -60-51 Moderate symptoms or moderate difficulty in social, occupational or school functioning. TREATMENT PLAN: Reviewed symptoms, medications and their side effects, labs, and progress being made. Discussed life situations and coping skills Support and encouragement provided PLAN AND FOLLOW UP: If any acute concerns arise please call 911 or go to the nearest Emergency Department. Medications: Continue: --Paxil 40 mg once daily --Rexulti (brexpiprazole) 1.5 mg once daily --buspar (buspirone) 10 mg twice daily Restart: --hydroxyzine 25 mg three times daily as needed for anxiety (may take 1/2 tablet) Lab work: --last done 08/13/2021, will reorder as needed Other: --strongly encouraged to restart therapy --educated on sleep hygiene - mainly to have a set wake time, not to lay in bed awake but to get upand do something quiet until drowsy and then return to bed, and limiting screen, technology, and caffeine before bed --encouraged to follow up on referral for sleep medicine Next appointment: --Schedule in 4 weeks or sooner if needed --Call [phone] to schedule next appointment or for questions call [phone] option 3 as needed; call sooner as needed. --Message in [employer] any questions or concerns. MEDICATION CHANGES: Prescriptions given Follow Up: 4 weeks I spent a total of 35 minutes on the date of the service which included preparing to see the patient, [id number] patient care, completing clinical documentation, performing a medically appropriate examination, counseling and educating the patient/family/caregiver and ordering medications, tests, or procedures. ADD ON PSYCHOTHERAPY CODE : No SIGNATURE: Jeanette Miller APRN.CNP PATIENT NAME: Reinaldo Warren DATE: June 13, 2022 TIME: 2:28 PM PAGER: documented in this encounterF[facility]08-29-[facility]22 Miscellaneous Notes* Telephone Encounter - Kandace Jin - 06/05/2022 2:52 PM EDT 1st attempt, sent [facility] message. * Telephone Encounter - Sharon Foster MD - 06/05/2022 1:33 PM EDT Overdue for office visit with Dr Foster. Ok 1 fill Requested Prescriptions Signed Prescriptions Disp Refills busPIRone (BUSPAR) 10 mg tablet 60 tablet 0 Sig: TAKE 1 TABLET BY MOUTH TWICE A DAY Authorizing Provider: SHARON FOSTER MD * Telephone Encounter - Amos Acevedo LPN - 06/05/2022 12:42 PM EDT Pharmacy verified in [facility] Patient has been identified by name and date of : Yes Patient aware RX will be sent to pharmacy. No need to notify patient. Patient phones for refill(s): Requested Prescriptions Pending Prescriptions Disp Refills busPIRone (BUSPAR) 10 mg tablet [Pharmacy Med Name: BUSPIRONE HCL 10 MG TABLET] 60 tablet 1 Sig: TAKE 1 TABLET BY MOUTH TWICE A DAY Date of last office visit : 07/25/2021 Date of next office visit : Visit date not found Last 2 Encounter Wt Readings: Date: Wt: 02/21/2022 93.2 kg (205 lb 6.4 oz) 11/18/2021 93 kg (205 lb) Not applicable Please advise. Amos Acevedo LPN documented in this [facility]07-[facility]22 Miscellaneous Notes* Telephone Encounter - Sharon Foster MD - 04/28/2022 10:38 AM EDT The following approved medication requests have been transmitted electronically. Signed Prescriptions Disp Refills busPIRone (BUSPAR) 10 mg tablet 60 tablet 1 Sig: TAKE 1 TABLET BY MOUTH TWICE A DAY MARIA ESTHER: No Authorizing Provider: SHARON FOSTER MD * Telephone Encounter - Anne Marie Pelayo MA - 04/28/2022 9:36 AM EDT Last appointment: 08-08-21 Next appointment: na Pharmacy verified in [facility]. Refill(s) requested: Pending Prescriptions Disp Refills BUSPIRONE 10 MG TABLET 60 tablet 1 Sig: TAKE 1 TABLET BY MOUTH TWICE A DAY MARIA ESTHER: Yes Order(s) pended. Please advise. Anne Marie Pelayo MA, [employer] documented in this encounterFlower Hospital06-24-2022 Miscellaneous Notes* Telephone Encounter - Jeanette Miller APRN.CNP - 2022 8:43 AM EDT Last seen 12/21/21 Patient needs appointment before any refills past today are given as there is currently no scheduled upcoming appointment * Telephone Encounter - Rosemary Gaye Arambula - 2022 8:34 AM EDT The following medication(s) is being requested: LAST APPT - 02/27/22 NEXT APPT - NONE Pending Prescriptions Disp Refills PAROXETINE 40 MG TABLET 90 tablet 0 Sig: TAKE 1 TABLET BY MOUTH EVERY DAY MARIA ESTHER: Yes Please process accordingly Rosemary Huizar Arambula documented in this encounterFlower [facility]05-16-2022 Instructions* Patient Instructions* Nilda Lauren MD - 02/20/2022 2:43 PM EDT Continue with Basaglar 20 units once a day Continue with Fiasp 8 units with breakfast, lunch and dinner Continue with Trulicity 1.5 mg once a week If you notice that your blood sugars are dropping to below 100, stop the Fiasp and continue with Basaglar and Trulicity only. If your overnight or morning blood sugar is ever lower than 80, please decrease your Basaglar insulin by 1 unit permanently, and repeat as needed If your morning blood sugar is higher than 130 for 3 days in a row, please increase your Basaglar insulin by 1 unit permanently, and repeat as needed Blood and urine tests before your next visit with us in 3 months documented in this encounterFlower Hospital05-16-2022 History of Present illness Narrative* Nilda Lauren MD - 02/20/2022 2:00 PM EDT ENDOCRINOLOGY CLINIC NOTE Ms. Warren is a 36 year old female with history of HTN, T2DM, seizure disorder, syncope, migrainepresented for post hospital follow up. HPI In 07/2021, she presented to the hospital after a syncopal event. Her labs on admission showed NA 128, K4.8, creatinine 1.23, glucose 554, AG 14, pH 7.31 and no ketones in the urine. Glucose levels gradually improved after starting subcutaneous insulin. Ms. Warren stated that she had gestational diabetes during her last , the last one beingin 2012. She received Metformin and insulin at that time. Between 2012 and 2018, she did not have diabetes. However, in 2018 she started to have polyuria and polydipsia and she was diagnosed with type 2 diabetes. She was not aware if autoimmune diabetes antibodies have been checked. The plan was todischarge her on metformin and insulin, but the patient left AMA and was prescribed Basaglar She could not tolerate Metformin due to diarrhea. We started her on Trulicity in 08/2021. Given therelatively young age of onset, I checked her type I autoimmune diabetes antibodies. She had negative insulin antibody, MILENA 65, islet cell antibody and IAA. Her C-peptide was 5.3 She did do very well on Trulicity and Basaglar and her A1c was 5%. However, she called our office few days ago because she was having persistent significant hyperglycemia and went to the emergency room. When I spoke with the patient on the phone, she stated that she stopped taking the insulin and Trulicity because I thought I am a superwoman and can control the diabetes without medications We restarted basal prandial insulin and she was planning to restart Trulicity. A1c: 04/08/2021 07:39 08/05/2021 10:02 11/18/2021 16:04 Hemoglobin A1C 5.6 8.2 (H) Hemoglobin A1C (POCT) 5.0 Current regimen: Trulicity 1.5 mg once a week basaglar 20 units in the morning Fiasp 8 with meals Home glucose monitoring: Had a glucose numbers are improving after restarting her medications. The fasting blood sugars are in the 180s, and the prelunch and predinner are in the low 200s. Hypoglycemia: None recently Diet: She she eats small frequent meals throughout the day. She also mentioned that she drinks regular sodas Physical activity: No structured physical activity Complications: Retinopathy: None Nephropathy: GFR > 60 in 07/2021, MACR 9 in 10/2020 Neuropathy: No suggestive symptoms CVS: lipid profile 04/2021: chol 195, LDL 121, HDL 33, TG 207 Not on statin Plans: None. She had tubal ligation Episodes of syncope: She had normal cosyntropin stim test, normal TFTs and normal metanephrines in 07/2021. She is seeing cardiology and was started on midodrine with improvement in her blood pressure and symptoms. PAST MEDICAL HISTORY Diagnosis Date Diabetes mellitus of mother, complicating , childbirth, or the puerperium, unspecified as to episode of care(648.00) Gestational diabetes Dysthymic disorder Depression (non-psychotic), Essential hypertension, benign Hemorrhoids 05/19/2011 History of gestational diabetes 10/31/2012 10/31/2012Patient had gestational diabetes with her last 2 pregnancies. She was on glyburide with the that she delivered in 2009. She was insulin- dependent her last . She deliveredboth of those pregnancies in [place]. Patient is obese. 3 hour G TT ordered by Dr. Jennings. Migraine, unspecified, with intractable migraine, so stated, without mention of status migrainosus Migraine Nipple discharge 02/19/2016 PMH - PAST MEDICAL HISTORY OF DYSLEXIA PMH - PAST MEDICAL HISTORY OF 1988 FRACTURED LEFT LEG PMH - PAST MEDICAL HISTORY OF 01/2007 HOSPITALIZED FOR RUPTURED OVARIAN CYST Seizure disorder (HCC) Seizures (HCC) SPINAL HEADACHE WITH DELIVERIES IN 2009&2011 Type 2 diabetes mellitus (HCC) Unspecified asthma(493.90) PAST SURGICAL HISTORY Procedure Laterality Date DELIVERY ONLY 2008,10/14/2009 , low cervicalx2 DELIVERY ONLY 06/06/2013 , low transverse COLONOSCOPY FLX DX W/COLLJ SPEC WHEN PFRMD 11/28/2013 Colonoscopy ESOPHAGOGASTRODUODENOSCOPY TRANSORAL DIAGNOSTIC 11/28/2013 EGD HYSTEROSCOPY BX W/WO D&C 08/14/2019 hysteroscoy D&C w/ mirena insertion LIG/TRNSXJ FLP TUBE ABDL/VAG APPR UNI/BI 06/06/2013 Tubal ligation REMOVAL OF GALLBLADDER 10/07/2018 theresa [place] REPAIR UMBILICAL HERNIA 06/20/[address] medium mesh [facility] FAMILY HISTORY Problem Relation Age of Onset Hypertension Father Diabetes Father Lipids Father Asthma Mother Hypertension Mother Breast Cancer Mother Diabetes Mother Strabismus Sister Cancer Maternal Grandfather LUNG CANCER Heart Maternal Grandmother SD Cancer Paternal Grandfather THROAT CANCER Breast Cancer Maternal Aunt Breast Cancer Paternal Aunt Coronary Artery Disease No Family History Thyroid No Family History Blood Disease No Family History Blood Clots No Family History Factor 5 Leiden No Family History DVT No Family History Stroke No Family History Systemic Lupus Erythematosus No Family History Multiple Sclerosis No Family History Bipolar disorder No Family History Schizophrenia No Family History Alzheimer's Disease No Family History Dementia No Family History Parkinson s Disease No Family History Aneurysm No Family History COPD No Family History Kidney Disease No Family History Social History Tobacco Use Smoking status: Former Smoker Packs/day: 0.50 Years: 10.00 Pack years: 5.00 Types: Cigarettes Quit date: 04/02/2019 Years since quittin.8 Smokeless tobacco: Never Used Vaping Use Vaping Use: Never used Substance Use Topics Alcohol use: No Drug use: Never (Not in a hospital admission) Allergies As of Date: 02/20/2022 Allergen Noted Reaction AUGMENTIN [AMOXICILLIN-POT CLAVUL*12/16/2010 Mental Status Change SHELLFISH 12/12/2010 Swelling TYLENOL #3 [CODEINE] 08/06/2007 Swelling VENOM-HONEY BEE 12/28/2018 Swelling Fully Assessed 12/21/2021 Current Outpatient Medications Medication Sig Dispense Refill insulin aspart, niacinamide, (FIASP FLEXTOUCH U-100 INSULIN) 100 unit/mL (3 mL) pen Inject 8 Units subcutaneously three times daily before meals. 5 Pen 0 busPIRone (BUSPAR) 10 mg tablet TAKE 1 TABLET BY MOUTH TWICE A DAY 60 tablet 1 PARoxetine (PAXIL) 40 mg tablet Take 1 tablet by mouth once daily. 90 tablet 0 brexpiprazole (REXULTI) 1 mg tablet Take 1.5 tablets by mouth once daily. 135 tablet 0 insulin glargine (BASAGLAR KWIKPEN U-100 INSULIN) 100 unit/mL (3 mL) Inject 20 units SQ daily at bedtime. 15 mL 3 midodrine (PROAMITINE) 5 mg tablet Take 1 tablet by mouth three times daily. dulaglutide (TRULICITY) 1.5 mg/0.5 mL pen injector Inject 1.5 mg subcutaneously one time a week. 2 mL 6 flash glucose sensor (FREESTYLE EVERARDO 2 SENSOR) kit To check blood sugar 3-4 times a day. Uncontrolled type 2 diabetes 6 Kit 3 flash glucose scanning reader (FREESTYLE EVERARDO 2 READER) To use with the freestyle everardo sensor. Uncontrolled type 2 diabetes 1 Each 0 Lancets lancets Test blood sugar(s) 4 times daily. Dx: Type 2 DM - Uncontrolled E11.65 Insulin: Rsx088 Each 11 albuterol HFA (PROAIR HFA) 90 mcg/actuation inhaler Inhale 2 Puffs as instructed every 4 hours as needed for wheezing/shortness of breath. 8 g 5 lisinopril (ZESTRIL, PRINIVIL) 40 mg tablet TAKE 1 TABLET BY MOUTH EVERY DAY (Patient not taking: TAKE 1 TABLET BY MOUTH EVERY DAY) 90 tablet 2 medroxyPROGESTERone (PROVERA) 10 mg tablet Take 1 tablet by mouth as directed. for 7 days a month 7tablet 12 blood sugar diagnostic (FREESTYLE LITE STRIPS) test strip Test blood sugar(s) 3 times daily. Dx: Type 2 DM - Controlled E11.9 Insulin: No 100 Strip 3 Blood Pressure Test Kit-Large Check blood pressure weekly and as needed. 1 Each 0 No current facility-administered medications for this visit. COMPLETE REVIEW OF SYSTEMS: 10 point review of systems was negative other than what is mentioned in the H&P PHYSICAL EXAM: Previous exam: General: NAD, alert and cooperative, no facial plethora Psych: Normal affect HEENT: EOMI, no proptosis/stare. Neck: supple with full ROM. No thyromegaly or palpable nodules. No significant acanthosis on the back of the neck Cardiovascular: RRR, +S1 and S2, no MRG appreciated Lungs: Clear to auscultation bilaterally Abdomen: soft, non-tender, non-distended, no dark striae Extremities: No LE oedema Neuro: No tremor of outstretched hands noted. Deep tendon reflexes are normal with a normal relaxation phase. Foot exam 08/16/2021: No wounds or ulcers. Good pedal pulses bilaterally. Normal monofilament and vibration sensation bilaterally Labs: 08/18/2021 10:33 Islet Cell Ab <1:4 Insulinoma Assoc Ab 2, Blood <5.4 Insulin Antibody <0.4 Glutamic Acid Decarboxylase Ab, Qual Negative C-Peptide 5.3 (H) 08/07/2021 11:04 Cortisol Basal 10.1 Cortisol 30 min 26.3 Cortisol 60 min 24.2 08/06/2021 14:19 Free T4 1.0 TSH 1.300 08/06/2021 22:28 Metanephrine, Plasma 26 Normetanephrine, Free Plasma <22 08/07/2021 04:46 Sodium 137 Potassium 4.1 Chloride 103 CO2 24 BUN 10 Creatinine 0.71 Glucose 149 (H) Protein, Total 5.1 (L) Calcium 8.7 Albumin 3.5 (L) Bilirubin, Total 0.4 Alkaline Phosphatase 64 ALT 18 AST 21 Anion Gap 10 eGFR- >60 eGFR-All Other Races >60 08/07/2021 04:46 WBC 4.95 RBC 3.27 (L) Hemoglobin 9.5 (L) Hematocrit 27.8 (L) Platelet Count 155 04/08/2021 07:39 Cholesterol, Total 195 Triglyceride 207 (H) Fasting Time 12 HDL Cholesterol 33 (L) LDL Cholesterol 121 (H) 11/02/2020 10:24 Albumin/Creat Ratio 9 Creatinine, Ur Random (UCRR) 218.9 Albumin, Urine Random 18.8 Assessment and Recommendations: Ms. Warren is a pleasant 36-year-old woman presented for follow-up of diabetes. Her diabetes was under excellent control while on Trulicity and Basaglar. However, she stopped taking the medicationsand she started to have significant hyperglycemia She restarted taking the Trulicity, and Basaglar, and we added Fiasp given the significant hyperglycemia she was having. Her glucose levels have been improving. We will continue with the same doses for now. We discussed that if she starts to notice that her glucose levels are dropping to below 100,to stop the Fiasp. I expect that her glucose will become under good control again in the next few weeks, and we will hopefully stop the short acting insulin. I asked her to send me a message in 2 weeks to review the numbers. She will be due for annual labs before her next visit in 3 months Episodes of syncope: We evaluated her for adrenal insufficiency and she had a normal cosyntropin stimulation test. I also checked her plasma metanephrines and they were normal. She is following up with cardiology and wasstarted on midodrine with improvement in her symptoms and blood pressure. Some of the above has been copied from prior documentation on 11/18/2021ut pickett elements reviewed, confirmed, and/or updated by me (Nilda Lauren MD) on 02/20/2022 Phone Visit I have discussed the nature of this visit with the patient which will occur via [facility] (Phone, Virtual Visit) and she agrees to proceed with this interaction. Time spent duringthis visit: 25 min I spent a total of 25 minutes on the date of the service which included preparing to see the patient, completing clinical documentation, counseling and educating the patient/family/caregiver and ordering medications, tests, or procedures. Nilda Lauren MD documented in this encounterFlower Hospital05-11-2022 Miscellaneous Notes* Telephone Encounter - Nilda Lauren MD - 02/15/2022 5:45 PM EDT Spoke with Ms. Warren following her message. She stopped taking the Trulicity and Basaglar because I thought I am a superwoman and can control the diabetes without medications, and her glucose levels have been significantly elevated. She went to the emergency room yesterday and was given insulin, and was instructed to take Basaglar 20 units twice a day. She took the Basaglar but her glucose levels remain in the 300 400 range. She is planning to restart the Trulicity tomorrow. We discussed continuing taking Basaglar, and I will prescribe short acting insulin Fiasp 8 units with meals, and I asked her to let me know if her glucose levels remain persistently elevated over the next few days. She has a follow-up appointment with me next week Nilda Lauren MD documented in this encounterFlower Hospital05-10-2022 Miscellaneous Notes* Telephone Encounter - Serene Medina RN - 02/14/2022 3:54 PM EDT Reason for Call : High Blood Sugar - 558. Shaky, Sweating, Increased Thirst. Outcome: Recommendation - Go To ED Now (PCP Triage) Attempted to contact office x2 without success.Patient states she plans to go to ED now for evaluation. Reason for Disposition Blood glucose > 500 mg/dL (27.8 mmol/L) Answer Assessment - Initial Assessment Questions 1. BLOOD GLUCOSE: 558 2. ONSET: Reading was 20 minutes ago. Has been high all day. 3. USUAL RANGE: 300-400 recently. Has been bad for past two weeks. 4. KETONES: Does not have. 5. TYPE 1 or 2: Type 2 6. INSULIN: Insulin only at night. 7. DIABETES PILLS: Denies 8. OTHER SYMPTOMS: Shaky, sweaty, increased thirst, 9. : Denies. LMP 3 weeks ago. Tubes tied. Was in ED 1 week ago for high blood sugar as well. Protocols used: DIABETES - HIGH BLOOD SICNT-[id number] documented in this encounterFlower Hospital05-02-2022 Miscellaneous Notes* Telephone Encounter - Sharon Foster MD - 02/06/2022 2:22 PM EDT The following approved medication requests have been transmitted electronically. Signed Prescriptions Disp Refills busPIRone (BUSPAR) 10 mg tablet 60 tablet 1 Sig: TAKE 1 TABLET BY MOUTH TWICE A DAY MARIA ESTHER: No Authorizing Provider: SHARON FOSTER MD * Telephone Encounter - Anne Marie Pelayo MA - 02/06/2022 11:39 AM EDT Last appointment: 08-08-21 Next appointment: na Pharmacy verified in [facility]. Refill(s) requested: Pending Prescriptions Disp Refills BUSPIRONE 10 MG TABLET 60 tablet 1 Sig: TAKE 1 TABLET BY MOUTH TWICE A DAY MARIA ESTHER: Yes Order(s) pended. Please advise. Anne Marie Pelayo MA, [facility] documented in this encounterFlower Hospital05-02-2022 Miscellaneous Notes* Telephone Encounter - Angie Ponce - 02/06/2022 1:24 PM EDT Provider renewed this medication on 12-21-21, gave 90 day supply with 0 refills. Refill requested too soon. Angie Ponce February 06, 2022 1:25 PM documented in this encounterFlower Hospital05-01-2022 Hospital Discharge instructions Patient Education 02/05/2022 20:23:11 Hyperglycemia (High Blood Sugar) Hyperglycemia (High Blood Sugar) Too much glucose (sugar) in your blood is called hyperglycemia or high blood sugar. High blood sugar can lead to a dangerous condition called ketoacidosis. In severe cases, it can lead to coma. Possible Causes of Hyperglycemia Inadequate treatment plan for diabetes Being sick Being under stress Taking certain medications, such as steroids Eating too much food, especially carbohydrates Being less active than usual Not taking enough diabetes medication Symptoms of Hyperglycemia Hyperglycemia may not cause symptoms. If you do have symptoms, they may include: Thirst Frequent need to urinate Feeling tired Nausea Itchy, dry skin Blurry vision Fast breathing Weakness Dizziness Wounds or skin infections that don t heal Unexplained weight loss if hyperglycemia lasts for more than a few days What You Should Do Check your blood sugar. Drink plenty of sugar-free, caffeine-free liquids such as water. Don t drink fruit juice. Check your blood sugar again every 4 hours. If you take insulin or diabetes medications, follow your sick-day plan for taking medication. Call your healthcare provider if you are not able to eat. Check your blood or urine for ketones as directed. Call your health care provider if your blood sugar and ketones do not return to your target range. Preventing High Blood Sugar To help keep your blood sugar from getting too high: Control stress. When you're ill, follow your sick-day plan. Follow your meal plan. Eat only the amount of food on your meal plan Follow your exercise plan. Take your insulin or diabetes medications as directed by you health care team. Also test your bloodsugar as directed. If the plan is not working for you, discuss it with your doctor. Other Things to Do Carry a medical ID card or wear a medical alert bracelet. It should say that you have diabetes. It should also say what to do in case you pass out or go into a coma. Make sure family, friends, and coworkers know the signs of high blood sugar. Tell them what to do if your blood sugar gets very high and you can t help yourself. Talk to your health care team about other things you can do to prevent high blood sugar. Special note: Drink plenty of sugar-free and caffeine-free liquids when you feel symptoms of hyperglycemia. Call your doctor if you keep having episodes of hyperglycemia. [id number] [employer]. [address] [place], [place] [id number]. All rights reserved. This information is not intended as a substitute for professional medical care. Always follow yourhealthcare professional's instructions. 02/05/2022 18:54:38 Vaginal Infection: Yeast (Candidiasis) Vaginal Infection: Yeast (Candidiasis) Yeast infection occurs when yeast in the vagina increase and attacks the vaginal tissues. Yeast is a type of fungus. These infections are often caused by a type of yeast called Anthony albicans. Other species of yeast can also cause infections. Factors that may make infection more likely include recent antibiotic use, douching, or increased sex. Yeast infections are more common in women who have diabetes, or are obese or , or have a weak immune system. Symptoms of yeast infection Clumpy or thin, white discharge, which may look like cottage cheese No odor or minimal odor Severe vaginal itching or burning Burning with urination Swelling, redness of vulva Pain during sex Treating yeast infection Yeast infection is treated with a vaginal antifungal cream. In some cases, antifungal pills are prescribed instead. During treatment: Finish all of your medicine, even if your symptoms go away. Apply the cream before going to bed. Lie flat after applying so that it doesn't drip out. Do not douche or use tampons. Don't rely on a diaphragm or condoms, since the cream may weaken them. Avoid intercourse if advised by your healthcare provider. Should I treat a yeast infection myself? Discuss with your healthcare provider whether you should use [id number] medicines to treat a yeast infection. Self-treatment may depend on whether: You've had a yeast infection in the past. You're at risk for STDs. Call your healthcare provider if symptoms do not go away or come back after treatment. [phone] [employer]. [address] [place] [address]. All rights reserved. This information is not intended as a substitute for professional medical care. Always follow yourhealthcare professional's instructions. Follow Up Care 02/05/2022 18:25:39 With:Go to emergency room if symptoms worsen Address:Unknown When:2-4 days With:CRISTIAN JORDAN, SHARON BROWN Address: [address] [place] [address] [place] [address]- [phone] When:2-4 days [facility] 02-03-2022 NoteHNO ID: [id number] Author: Mely Rangel PT, DPT Service: ? Author Type: Physical Therapist Type: Progress Notes Filed: 11/10/2021 2:15 PM Note Text: 11/10/2021 [facility] PHYSICAL THERAPY DISCONTINUANCE OF CARE Plan of Care Period: Start of Care Date: 08/05/21 Last Visit Date: 08/05/2021 Therapy Program: Patient did not return for follow up care as planned. Please refer to last visit note for interventions provided for this episode of care. Assessment: Unable to formally assess goal achievement. Reason for Discontinuation of Care: Patient has not returned to therapy or scheduled additional follow-up appointments. Mely Rangel PT, DPClermont County [id number] NoteHNO ID: [id number] Author: Nilda Lauren MD Service: Endocrinology Author Type: Physician Type: Progress Notes Filed: 08/07/2021 4:39 PM Note Text: ENDOCRINOLOGY SERVICE CONSULT PROGRESS NOTE ? ? ? INTERVAL HPI: Cortisol levels is in the indeterminate range, DHEAS and ACTH are normal. TFTs are normal. Metanephrines are pending ? No current facility-administered medications for this visit. ? Facility-Administered Medications Ordered in Other Visits Medication Dose Route Frequency - busPIRone 10 mg tab(s) (BUSPAR) 10 mg ORAL BID - hydrOXYzine HCl 25 mg tab(s) (ATARAX) 25 mg ORAL TID PRN - promethazine 12.5 mg tab(s) (PHENERGAN) 12.5 mg ORAL q 6 H PRN - brexpiprazole 1.5 mg tab(s) (REXULTI) 1.5 mg ORAL DAILY - PARoxetine 40 mg tab(s) (PAXIL) 40 mg ORAL DAILY - dextrose 40 % 15 g 15 g ORAL PRN ? Or - glucagon 1 mg injection 1 mg INTRAMUSCULAR PRN ? Or - dextrose 50% in water 25 mL syringe 12.5 g INTRAVENOUS PRN - NaCl 0.9% iv flush bag 20 mL INTRAVENOUS PRN - sodium chloride 0.9 % (flush) 3-5 mL (BD POSIFLUSH) 3-5 mL INTRAVENOUS q 12 H - NaCl 0.9% iv infusion 100 mL/hr INTRAVENOUS CONTINUOUS - ondansetron orally disintegrating 4 mg tab(s) (ZOFRAN ODT) 4 mg ORAL q 6 H PRN ? Or - ondansetron (PF) 4 mg injection (ZOFRAN) 4 mg INTRAVENOUS q 6 H PRN - aluminum-magnesium hydroxide-simethicone 200-200-20 mg/5 mL 30 mL (MAALOX,MYLANTA,MAG-AL PLUS) 30 mL ORAL q 6 H PRN - docusate sodium 100 mg cap(s) (COLACE) 100 mg ORAL BID PRN - magnesium hydroxide 400 mg/5 mL 30 mL (MOM) 30 mL ORAL DAILY PRN - acetaminophen 650 mg tab(s) (TYLENOL) 650 mg ORAL q 6 H PRN - albuterol 2.5 mg /3 mL (0.083 %) 2.5 mg (PROVENTIL) 2.5 mg INHALATION q 4 H PRN - insulin glargine 15 Units pen (long acting) (LANTUS SOLOSTAR, BASAGLAR KWIKPEN) 15 Units SUBCUTANEOUS AT BEDTIME - insulin lispro injection (rapid acting) (HumaLOG) SUBCUTANEOUS w MEALS - insulin lispro injection (rapid acting) (HumaLOG) SUBCUTANEOUS AT BEDTIME - melatonin 6 mg tab(s) 6 mg ORAL DAILY (8 PM) - insulin lispro 6 Units injection (rapid acting) (HumaLOG) 6 Units SUBCUTANEOUS DAILY WITH BREAKFAST - insulin lispro 6 Units injection (rapid acting) (HumaLOG) 6 Units SUBCUTANEOUS DAILY wLUNCH - insulin lispro 6 Units injection (rapid acting) (HumaLOG) 6 Units SUBCUTANEOUS DAILY wDINNER - sodium chloride 0.9 % (flush) 2-10 mL (BD POSIFLUSH) 2-10 mL INTRAVENOUS DIRECTED PRN ? And - perflutren lipid microspheres 1.1 mg/mL 1.3 mL injection (DEFINITY) 1.3 mL INTRAVENOUS DIRECTED PRN ? ? DATA: ? 08/06/2021 14:19 08/06/2021 22:28 TSH 1.300 ? DHEA-S ? 148.9 ACTH ? 23.2 Cortisol 5.0 ? Impression and Recommendations: Given the borderline cortisol, the plan was to do cosyntropin stimulation test but it seems that the patient left against medical advice. The plan was to also review insulin administration techniques as the patient was planned to be discharged on insulin. ? [facility] NoteHNO ID: [id number] Author: Camryn Leone DO Service: Hospital Medicine Author Type: Physician Type: Progress Notes Filed: 08/06/2021 4:22 PM Note Text: DEPARTMENT OF HOSPITAL MEDICINE PROGRESS NOTE SERVICE DATE: 08/06/2021 SERVICE TIME: 4:15 PM Hospital Medicine/Primary Attending: Camryn Leone DO NIGHT AND WEEKEND COVERAGE: JENKS COVERAGE: Days: [phone], please page attending physician. Nights: [phone], please page [place] [facility] Night coverage pager [phone]. Subjective INTERVAL HPI: feels about the same today. Persistent hypotension despite fluid resuscitation. Has been going on for about 2 months. She can't even stand up most of the time. Her has to help her in the shower. She passes out about 4 times a day. No fever or chills. Denies CP, SOB, abd pain, N/V Current Facility-Administered Medications Medication Dose Route Frequency - busPIRone 10 mg tab(s) (BUSPAR) 10 mg ORAL BID - hydrOXYzine HCl 25 mg tab(s) (ATARAX) 25 mg ORAL TID PRN - promethazine 12.5 mg tab(s) (PHENERGAN) 12.5 mg ORAL q 6 H PRN - brexpiprazole 1.5 mg tab(s) (REXULTI) 1.5 mg ORAL DAILY - PARoxetine 40 mg tab(s) (PAXIL) 40 mg ORAL DAILY - dextrose 40 % 15 g 15 g ORAL PRN Or - glucagon 1 mg injection 1 mg INTRAMUSCULAR PRN Or - dextrose 50% in water 25 mL syringe 12.5 g INTRAVENOUS PRN - NaCl 0.9% iv flush bag 20 mL INTRAVENOUS PRN - sodium chloride 0.9 % (flush) 3-5 mL (BD POSIFLUSH) 3-5 mL INTRAVENOUS q 12 H - NaCl 0.9% iv infusion 100 mL/hr INTRAVENOUS CONTINUOUS - ondansetron orally disintegrating 4 mg tab(s) (ZOFRAN ODT) 4 mg ORAL q 6 H PRN Or - ondansetron (PF) 4 mg injection (ZOFRAN) 4 mg INTRAVENOUS q 6 H PRN - aluminum-magnesium hydroxide-simethicone 200-200-20 mg/5 mL 30 mL (MAALOX,MYLANTA,MAG-AL PLUS) 30 mL ORAL q 6 H PRN - docusate sodium 100 mg cap(s) (COLACE) 100 mg ORAL BID PRN - magnesium hydroxide 400 mg/5 mL 30 mL (MOM) 30 mL ORAL DAILY PRN - acetaminophen 650 mg tab(s) (TYLENOL) 650 mg ORAL q 6 H PRN - albuterol 2.5 mg /3 mL (0.083 %) 2.5 mg (PROVENTIL) 2.5 mg INHALATION q 4 H PRN - insulin glargine 15 Units pen (long acting) (LANTUS SOLOSTAR, BASAGLAR KWIKPEN) 15 Units SUBCUTANEOUS AT BEDTIME - [START ON 08/07/2021] insulin lispro 8 Units injection (rapid acting) (HumaLOG) 8 Units SUBCUTANEOUS DAILY WITH BREAKFAST - [START ON 08/07/2021] insulin lispro 8 Units injection (rapid acting) (HumaLOG) 8 Units SUBCUTANEOUS DAILY wLUNCH - insulin lispro 8 Units injection (rapid acting) (HumaLOG) 8 Units SUBCUTANEOUS DAILY wDINNER - insulin lispro injection (rapid acting) (HumaLOG) SUBCUTANEOUS w MEALS - insulin lispro injection (rapid acting) (HumaLOG) SUBCUTANEOUS AT BEDTIME Objective PHYSICAL EXAM: BP 119/85 Pulse 77 Temp (Src) 98.8 (Oral) Resp 17 Ht 5' 5 (1.65m) Wt 191 lb (86.6kg) SpO2 99% LMP 07/18/2021 BMI 31.78 kg/(m2). O2 Therapy: Room Air Physical Exam Performed GENERAL: Alert, no distress, cooperative LUNGS: Lungs clear to auscultation, Good diaphragmatic excursion CARDIAC: Normal S1 and S2; no rubs, murmurs, or gallops ABDOMEN: Abdomen soft, non-tender, BS normal, EXTREMITIES: Extremities normal, no deformities, edema, clubbing or skin discoloration. Good capillary refill., No ulcers Lines, Drains, and Airways Line Peripheral 08/05/21 1037 Left Forearm 20 Gauge 1 day DATA: Diagnostic tests reviewed for today's visit: Most recent labs Most recent imaging Assessment/Plan Problem List Syncope POA: Yes Hypotension POA: . Uncontrolled type 2 diabetes mellitus (HCC) POA: Yes HOSPITAL COURSE: Reinaldo Warren is a 36 year old female presented with past medical history of DM, HTN, migraine, asthma, COVID infx 06/2021 presents with elevated blood sugars hypotension, recurrent syncope and elevated lactate Principal Problem: Syncope Hypotension Likely due to low blood pressures and orthostasis. This has been persistent for her over the past 2 months. She was previously diagnosed with HTN and on lisinopril HCTZ and clonidine. Her meds were stopped by her PCP over the past few weeks. They do not feel she has taken any for at least 5 days. Telemetry has been normal. Seen by cards and unlikely cardiac etiology although we may obtain an echo if she remains in house until Sunday No clinical signs of infection Possible adrenal insufficiency Endocrine consulted TSH and random cortisol ordered. May also need am cortisol level Elevated Lactic acid Now resolved. She reports she has not taken her metformin in several weeks Likely due to hypotension Uncontrolled type 2 diabetes mellitus (HCC) HgA1c 8.2 Endocrine consulted Patient felt she was better on insulin and would like to switch back to this regimen Medication and Non-Pharmacologic VTE Prophylaxis/Anticoagulants VTE Prophylaxis: VTE prophylaxis appropriate Disposition: Home Plan of care discussed with Provider, Renetta HIGUERA (more content not included)... [facility] [id number] NoteHNO ID: [id number] Author: Bia Rdz RN Service: Care Management Author Type: Registered Nurse Type: Care Mgt Progress Note Filed: 08/06/2021 10:03 AM Note Text: This patient has been screened for Care Management Transitional Planning Services. At this time, it does not appear this patient will require transition planning services. Should this change, and the patient require transition planning services during this admission, please call the care management office, for CM assigned to ptIrina Rdz RN August 06, 2021 10:03 [id number] NoteHNO ID: [id number] Author: Lyndsey Johnson PT Service: ? Author Type: Physical Therapist Type: Progress Notes Filed: 08/05/2021 1:59 PM Note Text: Episode Visit Count: 1 Therapist That Will Oversee The Plan Of Care: Lyndsey Johnson Start of Care Date: 08/05/21 Onset Date: 04/05/21 Plan of Care Certification Date: 08/05/21 Next Certification Due Date: 09/04/21 Patient Identified by Name and Date of : Yes (Charleen) [facility]ER[facility] PHYSICAL THERAPY EVALUATION *spouse present for session PLAN OF CARE: Assessment: Reinaldo Warren presents with the diagnosis of vertigo. Insidious onset, sx's for 3-4 months. Is currently being seen by cardiology. Reports frequent syncopal episodes a day and intermittent falls. Most symptomatic with supine to sit, sit to stand, and at times with prolonged standing/walking. Notes dizziness can be spinning or lightheaded sensation. Does not feel head/neck movements provoke sx's. No obvious indications of vestibular dysfunction with positional testing under [facility] today. Did have some sx's with return to sit, but no concordant nystagmus and asymptomatic in test positions. Did have sx's with B mastoid and suboccipital vibration testing. Also presyncopal with standing. After assessment when walking had syncopal episode. No fall, lowered to chair. Once seated was responsive. BP 77/51, HR 109. Pt was taken to ED for assessment. Will reassess pt as warranted when medically stable. May benefit from walker and transport chair if dizziness and imbalance persists. Prognosis: Fair Fair due to: clinical presentation;multiple co- morbidities;chronic nature of impairments PLAN FOR NEXT VISIT: Re-assessment as sx's warrant. May benefit from continued therapy pending sx's and assessment findings. Patient demonstrates good understanding of plan of care and treatment. The above goals and plan of care were discussed and agreed upon by patient/family. SUBJECTIVE: Reinaldo Warren is a 36 year old female seen today for Sx's started 3-4 months ago. Noted lightheadedness, trouble breathing, blacked out, short of breath. Went to ED. Has seen pulmonary, cardiology. (has not seen neurology or ENT yet) Physicians deciding between vertigo and POTS. Will be having tilt table test. Has been monitoring BP, low. Symptomatic when BP is low or standing. Very lightheaded and black quickly. Was on BP meds, PCP's office has removed but still low BP, but slightly better and sx's the same. Laying on back on back or stomach feels great, but if rolls onto either side has more sx's. Laying to sitting provoking and sitting to standing. Standing is most provocative. Sitting and laying will help. Imbalanced since dizziness started, using cane, having falls. Falls 3 x per day. Falls when not using the cane. Sometimes falls with cane. Denies ear sx's. 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 Minor CHAN's intermittent, baseline. No neck pain. decreased strength general body. Speech is baseline, has pre-existing issues. tingling all over when having episode. Denies new cognitive or swallowing issues. SOB initially but getting better. Will continue to follow with cardiology EKG, monitor, and tilt table test scheduled at outside facility. Did have COVID in February-sx's started about month. Dizziness is lighheaded then passes out. No spinning dizziness. Dizziness is intermittent sitting and laying tends to help. Not noted dizziness with any specific head/neck movements. Medical History: asthma, diabetes type II-managed, seizures for 8 years-controlled Pain: see above PROMIS Scales Higher is Better 05/07/2017 07/01/2020 02/16/2021 GH Physical - Score - Incomplete 50.8 GH Physical - Percentile 53 % - 53 % GH Mental - Score - 28.4 Incomplete GH Mental - Percentile 63 % - - T-scores: mean of general population = 50. 5 points is clinically meaningfully difference Percentiles provide an indication of how the patient's score ranks in relation to the general population. Higher percentile rankings indicate better function/quality of life. 50th percentile is the average of the general population and indicates half of respondents had a worse score. T-scores: mean of general population = 50. 5 points is clinically meaningfully difference Percentiles provide an indication of how the patient's score ranks in relation to the general population. Higher percentile rankings indicate better function/quality of life. 50th percentile is the average of the general population and indicates half of respondents had a worse score. OBJECTIVE MEASURES WITH LEVEL OF FUNCTION: Posture / Alignment Posture: (cervical protraction, thoracic kyphosis) Oculomotor Testing Fixation Present Ocular ROM: WNL Spontaneous Nystagmus: No nystagmus Gaze Evoked Nystagmus: Not Present Smooth pursuit: Horizontal, Vertical and Diagonal all WNL Sa (more content not included)...[facility] [id number] History of Present illness Narrative* Becky Lewis Tech (Tech) - 01/06/2021 6:00 PM EDT Radiology Service Progress Note PATIENT NAME: Reinaldo Warren DATE OF SERVICE: January 06, 2021 TIME: 5:55 PM PATIENT IDENTITY VERIFICATION COMPLETED USING TWO (2) IDENTIFIERS: Name and Date of confirmedby patient verbally. FALL SCREENING: Has the patient had 2 falls in the last year or 1 fall with injury or currently using an Ambulatory Assistive Device (Walker, Cane, Wheelchair, Crutches, etc.)? No PATIENT GENDER DATA: Female. status: : No status: NO. PATIENT RELEVANT IMPLANT DATA REVIEWED: Not Applicable RADIOLOGY DEPARTMENT: General X-ray: Exam(s) Completed: Upper Extremity X- Ray(s): Shoulder, AP / TRUE AP / AXILLARY right : PERIPHERAL IV DATA: Not applicable SIGNED BY: Christina Gonzales January 06, 2021 5:55 PM [facility] History of Past illness Narrative* Problem Noted Date Resolved Date Umbilical hernia 06/07/2017 08/14/2019 Overview: Added automatically from request for surgery [id number] Nipple discharge 02/19/2016 08/14/2019 Lump or mass in breast 02/19/2016 9 Abnormal glucose complicating 03/16/20 13 07/18/2013 Overview: One abnormally elevated value on 3 hour GTT LOC (loss of consciousness) 02/03/201307/08 Rubella non-immune status, antepartum 11/01/2012 07/18/2013 History of 10/31/2012 07/18/2013 Overview: 10/31/2012Nahed had 3 previous C -Sections. She desires a repeat by Dr. Renee Manuel. History of gestational diabetes 10/31/2012 10/13/2020 Overview: 10/31/2012Patient had gestational diabetes with her last 2 pregnancies. She was on glyburide with the that she delivered in 2009. She was insulin- dependent her last . She delivered both of those pregnancies in [place]. Patient is obese. 3 hour G TT ordered by Dr. Jennings. History of hypertension 10/31/2012 08/14/20 Overview: 10/31/2012Nahed has seen Dr. Sorto for benign hypertension that was diagnosed in 2004. She has been off medication since April 2006. Reading difficulty 10/31/2012 08/14/2019 Overview: 10/31/2012Pt states she has trouble reading. She states she has dyslexia. Family history of defects 10/31/2012 08/14/2019 Overview: 10/31/2012 The FOB was born with cleft lip and so was his aunt as well. History of anesthesia complications 10/31/2012 07/18/2013 Overview: 10/31/2012Patient states she had a blood patch to treat her spinal headaches after the of her second child . Amenorrhea 10/15/2012 02/03/2013 Irregular menstrual bleeding 06/13/201208/2013 Postcoital bleeding 06/13/2012 09/26/2012 Hemorrhoids 05/19/2011 02/03/2013 Closed fracture of metacarpal bone(s), site unsp ecified 01/05/2010 02/03/2013 Glycosuria 07/06/2009 07/18/2013 documented as of this encounter (statuses as of 02/06/2022) [facility] of Past illness Narrative* Problem Noted Date Resolved Date Umbilical hernia 06/07/2017 08/14/2019 Overview: Added automatically from request for surgery [id number] Nipple discharge 02/19/2016 08/14/2019 Lump or mass in breast 02/19/2016 9 Abnormal glucose complicating 03/16/20 13 07/18/2013 Overview: One abnormally elevated value on 3 hour GTT LOC (loss of consciousness) 02/03/201307/08 Rubella non-immune status, antepartum 11/01/2012 07/18/2013 History of 10/31/2012 07/18/2013 Overview: 10/31/2012Nahed had 3 previous C -Sections. She desires a repeat by Dr. Renee Manuel. History of gestational diabetes 10/31/2012 10/13/2020 Overview: 10/31/2012Patient had gestational diabetes with her last 2 pregnancies. She was on glyburide with the that she delivered in 2009. She was insulin- dependent her last . She delivered both of those pregnancies in [place]. Patient is obese. 3 hour G TT ordered by Dr. Jennings. History of hypertension 10/31/2012 08/14/20 19 Overview: 10/31/2012Nahed has seen Dr. Sorto for benign hypertension that was diagnosed in 2004. She has been off medication since April 2006. Reading difficulty 10/31/2012 08/14/2019 Overview: 10/31/2012Pt states she has trouble reading. She states she has dyslexia. Family history of defects 10/31/2012 08/14/2019 Overview: 10/31/2012 The FOB was born with cleft lip and so was his aunt as well. History of anesthesia complications 10/31/2012 07/18/2013 Overview: 10/31/2012Patient states she had a blood patch to treat her spinal headaches after the of her second child . Amenorrhea 10/15/2012 02/03/2013 Irregular menstrual bleeding 06/13/201208/2013 Postcoital bleeding 06/13/2012 09/26/2012 Hemorrhoids 05/19/2011 02/03/2013 Closed fracture of metacarpal bone(s), site unsp ecified 01/05/2010 02/03/2013 Glycosuria 07/06/2009 07/18/2013 documented as of this encounter (statuses as of 02/06/2022) [facility] of Past illness Narrative* Problem Noted Date Resolved Date Umbilical hernia 06/07/2017 08/14/2019 Overview: Added automatically from request for surgery [id number] Nipple discharge 02/19/2016 08/14/2019 Lump or mass in breast 02/19/2016 9 Abnormal glucose complicating 03/16/20 13 07/18/2013 Overview: One abnormally elevated value on 3 hour GTT LOC (loss of consciousness) 02/03/201307/08 Rubella non-immune status, antepartum 11/01/2012 07/18/2013 History of 10/31/2012 07/18/2013 Overview: 10/31/2012Shrayna had 3 previous C -Sections. She desires a repeat by Dr. Renee Manuel. History of gestational diabetes 10/31/2012 10/13/2020 Overview: 10/31/2012Patient had gestational diabetes with her last 2 pregnancies. She was on glyburide with the that she delivered in 2009. She was insulin- dependent her last . She delivered both of those pregnancies in [place]. Patient is obese. 3 hour G TT ordered by Dr. Jennings. History of hypertension 10/31/2012 08/14/20 19 Overview: 10/31/2012Nahed has seen Dr. Sorto for benign hypertension that was diagnosed in 2004. She has been off medication since April 2006. Reading difficulty 10/31/2012 08/14/2019 Overview: 10/31/2012Pt states she has trouble reading. She states she has dyslexia. Family history of defects 10/31/2012 08/14/2019 Overview: 10/31/2012 The FOB was born with cleft lip and so was his aunt as well. History of anesthesia complications 10/31/2012 07/18/2013 Overview: 10/31/2012Patient states she had a blood patch to treat her spinal headaches after the of her second child . Amenorrhea 10/15/2012 02/03/2013 Irregular menstrual bleeding 06/13/201208/2013 Postcoital bleeding 06/13/2012 09/26/2012 Hemorrhoids 05/19/2011 02/03/2013 Closed fracture of metacarpal bone(s), site unsp ecified 01/05/2010 02/03/2013 Glycosuria 07/06/2009 07/18/2013 documented as of this encounter (statuses as of 02/07/2022) [facility] of Past illness Narrative* Problem Noted Date Resolved Date Umbilical hernia 06/07/2017 08/14/2019 Overview: Added automatically from request for surgery [id number] Nipple discharge 02/19/2016 08/14/2019 Lump or mass in breast 02/19/2016 9 Abnormal glucose complicating 03/16/20 13 07/18/2013 Overview: One abnormally elevated value on 3 hour GTT LOC (loss of consciousness) 02/03/201307/08 Rubella non-immune status, antepartum 11/01/2012 07/18/2013 History of 10/31/2012 07/18/2013 Overview: 10/31/2012She had 3 previous C -Sections. She desires a repeat by Dr. Renee Manuel. History of gestational diabetes 10/31/2012 10/13/2020 Overview: 10/31/2012Patient had gestational diabetes with her last 2 pregnancies. She was on glyburide with the that she delivered in 2009. She was insulin- dependent her last . She delivered both of those pregnancies in [place]. Patient is obese. 3 hour G TT ordered by Dr. Jennings. History of hypertension 10/31/2012 08/14/20 19 Overview: 10/31/2012Nahed has seen Dr. Sorto for benign hypertension that was diagnosed in 2004. She has been off medication since April 2006. Reading difficulty 10/31/2012 08/14/2019 Overview: 10/31/2012Pt states she has trouble reading. She states she has dyslexia. Family history of defects 10/31/2012 08/14/2019 Overview: 10/31/2012 The FOB was born with cleft lip and so was his aunt as well. History of anesthesia complications 10/31/2012 07/18/2013 Overview: 10/31/2012Patient states she had a blood patch to treat her spinal headaches after the of her second child . Amenorrhea 10/15/2012 02/03/2013 Irregular menstrual bleeding 06/13/201208/2013 Postcoital bleeding 06/13/2012 09/26/2012 Hemorrhoids 05/19/2011 02/03/2013 Closed fracture of metacarpal bone(s), site unsp ecified 01/05/2010 02/03/2013 Glycosuria 07/06/2009 07/18/2013 documented as of this encounter (statuses as of 02/14/2022) [facility] of Past illness Narrative* Problem Noted Date Resolved Date Umbilical hernia 06/07/2017 08/14/2019 Overview: Added automatically from request for surgery [id number] Nipple discharge 02/19/2016 08/14/2019 Lump or mass in breast 02/19/2016 9 Abnormal glucose complicating 03/16/20 13 07/18/2013 Overview: One abnormally elevated value on 3 hour GTT LOC (loss of consciousness) 02/03/201307/08 Rubella non-immune status, antepartum 11/01/2012 07/18/2013 History of 10/31/2012 07/18/2013 Overview: 10/31/2012Nahed had 3 previous C -Sections. She desires a repeat by Dr. Renee Manuel. History of gestational diabetes 10/31/2012 10/13/2020 Overview: 10/31/2012Patient had gestational diabetes with her last 2 pregnancies. She was on glyburide with the that she delivered in 2009. She was insulin- dependent her last . She delivered both of those pregnancies in [place]. Patient is obese. 3 hour G TT ordered by Dr. Jennings. History of hypertension 10/31/2012 08/14/20 Overview: 10/31/2012Nahed has seen Dr. Sorto for benign hypertension that was diagnosed in 2004. She has been off medication since April 2006. Reading difficulty 10/31/2012 08/14/2019 Overview: 10/31/2012Pt states she has trouble reading. She states she has dyslexia. Family history of defects 10/31/2012 08/14/2019 Overview: 10/31/2012 The FOB was born with cleft lip and so was his aunt as well. History of anesthesia complications 10/31/2012 07/18/2013 Overview: 10/31/2012Patient states she had a blood patch to treat her spinal headaches after the of her second child . Amenorrhea 10/15/2012 02/03/2013 Irregular menstrual bleeding 06/13/201208/2013 Postcoital bleeding 06/13/2012 09/26/2012 Hemorrhoids 05/19/2011 02/03/2013 Closed fracture of metacarpal bone(s), site unsp ecified 01/05/2010 02/03/2013 Glycosuria 07/06/2009 07/18/2013 documented as of this encounter (statuses as of 02/15/2022) [facility] of Past illness Narrative* Problem Noted Date Resolved Date Umbilical hernia 06/07/2017 08/14/2019 Overview: Added automatically from request for surgery [id number] Nipple discharge 02/19/2016 08/14/2019 Lump or mass in breast 02/19/2016 9 Abnormal glucose complicating 03/16/20 13 07/18/2013 Overview: One abnormally elevated value on 3 hour GTT LOC (loss of consciousness) 02/03/201307/08 Rubella non-immune status, antepartum 11/01/2012 07/18/2013 History of 10/31/2012 07/18/2013 Overview: 10/31/2012Nahed had 3 previous C -Sections. She desires a repeat by Dr. Renee Manuel. History of gestational diabetes 10/31/2012 10/13/2020 Overview: 10/31/2012Patient had gestational diabetes with her last 2 pregnancies. She was on glyburide with the that she delivered in 2009. She was insulin- dependent her last . She delivered both of those pregnancies in [place]. Patient is obese. 3 hour G TT ordered by Dr. Jennings. History of hypertension 10/31/2012 08/14/20 19 Overview: 10/31/2012Nahed has seen Dr. Sorto for benign hypertension that was diagnosed in 2004. She has been off medication since April 2006. Reading difficulty 10/31/2012 08/14/2019 Overview: 10/31/2012Pt states she has trouble reading. She states she has dyslexia. Family history of defects 10/31/2012 08/14/2019 Overview: 10/31/2012 The FOB was born with cleft lip and so was his aunt as well. History of anesthesia complications 10/31/2012 07/18/2013 Overview: 10/31/2012Patient states she had a blood patch to treat her spinal headaches after the of her second child . Amenorrhea 10/15/2012 02/03/2013 Irregular menstrual bleeding 06/13/201208/2013 Postcoital bleeding 06/13/2012 09/26/2012 Hemorrhoids 05/19/2011 02/03/2013 Closed fracture of metacarpal bone(s), site unsp ecified 01/05/2010 02/03/2013 Glycosuria 07/06/2009 07/18/2013 documented as of this encounter (statuses as of 02/20/2022) [facility] History of Past illness Narrative* Problem Noted Date Resolved Date Umbilical hernia 06/07/2017 08/14/2019 Overview: Added automatically from request for surgery [id number] Nipple discharge 02/19/2016 08/14/2019 Lump or mass in breast 02/19/2016 9 Abnormal glucose complicating 03/16/20 13 07/18/2013 Overview: One abnormally elevated value on 3 hour GTT LOC (loss of consciousness) 02/03/201307/08 Rubella non-immune status, antepartum 11/01/2012 07/18/2013 History of 10/31/2012 07/18/2013 Overview: 10/31/2012Shrayna had 3 previous C -Sections. She desires a repeat by Dr. Renee Manuel. History of gestational diabetes 10/31/2012 10/13/2020 Overview: 10/31/2012Patient had gestational diabetes with her last 2 pregnancies. She was on glyburide with the that she delivered in 2009. She was insulin- dependent her last . She delivered both of those pregnancies in [place]. Patient is obese. 3 hour G TT ordered by Dr. Jennings. History of hypertension 10/31/2012 08/14/20 19 Overview: 10/31/2012Nahed has seen Dr. Sorto for benign hypertension that was diagnosed in 2004. She has been off medication since April 2006. Reading difficulty 10/31/2012 08/14/2019 Overview: 10/31/2012Pt states she has trouble reading. She states she has dyslexia. Family history of defects 10/31/2012 08/14/2019 Overview: 10/31/2012 The FOB was born with cleft lip and so was his aunt as well. History of anesthesia complications 10/31/2012 07/18/2013 Overview: 10/31/2012Patient states she had a blood patch to treat her spinal headaches after the of her second child . Amenorrhea 10/15/2012 02/03/2013 Irregular menstrual bleeding 06/13/201208/2013 Postcoital bleeding 06/13/2012 09/26/2012 Hemorrhoids 05/19/2011 02/03/2013 Closed fracture of metacarpal bone(s), site unsp ecified 01/05/2010 02/03/2013 Glycosuria 07/06/2009 07/18/2013 documented as of this encounter (statuses as of 03/03/2022) [facility] History of Past illness Narrative* Problem Noted Date Resolved Date Umbilical hernia 06/07/2017 08/14/2019 Overview: Added automatically from request for surgery [id number] Nipple discharge 02/19/2016 08/14/2019 Lump or mass in breast 02/19/2016 9 Abnormal glucose complicating 03/16/20 13 07/18/2013 Overview: One abnormally elevated value on 3 hour GTT LOC (loss of consciousness) 02/03/201307/08 Rubella non-immune status, antepartum 11/01/2012 07/18/2013 History of 10/31/2012 07/18/2013 Overview: 10/31/2012She had 3 previous C -Sections. She desires a repeat by Dr. Renee Manuel. History of gestational diabetes 10/31/2012 10/13/2020 Overview: 10/31/2012Patient had gestational diabetes with her last 2 pregnancies. She was on glyburide with the that she delivered in 2009. She was insulin- dependent her last . She delivered both of those pregnancies in [place]. Patient is obese. 3 hour G TT ordered by Dr. Jennings. History of hypertension 10/31/2012 08/14/20 19 Overview: 10/31/2012Nahed has seen Dr. Sorto for benign hypertension that was diagnosed in 2004. She has been off medication since April 2006. Reading difficulty 10/31/2012 08/14/2019 Overview: 10/31/2012Pt states she has trouble reading. She states she has dyslexia. Family history of defects 10/31/2012 08/14/2019 Overview: 10/31/2012 The FOB was born with cleft lip and so was his aunt as well. History of anesthesia complications 10/31/2012 07/18/2013 Overview: 10/31/2012Patient states she had a blood patch to treat her spinal headaches after the of her second child . Amenorrhea 10/15/2012 02/03/2013 Irregular menstrual bleeding 06/13/201208/2013 Postcoital bleeding 06/13/2012 09/26/2012 Hemorrhoids 05/19/2011 02/03/2013 Closed fracture of metacarpal bone(s), site unsp ecified 01/05/2010 02/03/2013 Glycosuria 07/06/2009 07/18/2013 documented as of this encounter (statuses as of 2022) [facility] History of Past illness Narrative* Problem Noted Date Resolved Date Umbilical hernia 06/07/2017 08/14/2019 Overview: Added automatically from request for surgery [id number] Nipple discharge 02/19/2016 08/14/2019 Lump or mass in breast 02/19/2016 9 Abnormal glucose complicating 03/16/20 13 07/18/2013 Overview: One abnormally elevated value on 3 hour GTT LOC (loss of consciousness) 02/03/201307/08 Rubella non-immune status, antepartum 11/01/2012 07/18/2013 History of 10/31/2012 07/18/2013 Overview: 10/31/2012Shrayna had 3 previous C -Sections. She desires a repeat by Dr. Renee Manuel. History of gestational diabetes 10/31/2012 10/13/2020 Overview: 10/31/2012Patient had gestational diabetes with her last 2 pregnancies. She was on glyburide with the that she delivered in 2009. She was insulin- dependent her last . She delivered both of those pregnancies in [place]. Patient is obese. 3 hour G TT ordered by Dr. Jennings. History of hypertension 10/31/2012 08/14/20 Overview: 10/31/2012Nahed has seen Dr. Sorto for benign hypertension that was diagnosed in 2004. She has been off medication since April 2006. Reading difficulty 10/31/2012 08/14/2019 Overview: 10/31/2012Pt states she has trouble reading. She states she has dyslexia. Family history of defects 10/31/2012 08/14/2019 Overview: 10/31/2012 The FOB was born with cleft lip and so was his aunt as well. History of anesthesia complications 10/31/2012 07/18/2013 Overview: 10/31/2012Patient states she had a blood patch to treat her spinal headaches after the of her second child . Amenorrhea 10/15/2012 02/03/2013 Irregular menstrual bleeding 06/13/201208/2013 Postcoital bleeding 06/13/2012 09/26/2012 Hemorrhoids 05/19/2011 02/03/2013 Closed fracture of metacarpal bone(s), site unsp ecified 01/05/2010 02/03/2013 Glycosuria 07/06/2009 07/18/2013 documented as of this encounter (statuses as of 04/28/2022) [facility] History of Past illness Narrative* Problem Noted Date Resolved Date Umbilical hernia 06/07/2017 08/14/2019 Overview: Added automatically from request for surgery [id number] Nipple discharge 02/19/2016 08/14/2019 Lump or mass in breast 02/19/2016 9 Abnormal glucose complicating 03/16/20 13 07/18/2013 Overview: One abnormally elevated value on 3 hour GTT LOC (loss of consciousness) 02/03/201307/08 Rubella non-immune status, antepartum 11/01/2012 07/18/2013 History of 10/31/2012 07/18/2013 Overview: 10/31/2012Nahed had 3 previous C -Sections. She desires a repeat by Dr. Renee Manuel. History of gestational diabetes 10/31/2012 10/13/2020 Overview: 10/31/2012Patient had gestational diabetes with her last 2 pregnancies. She was on glyburide with the that she delivered in 2009. She was insulin- dependent her last . She delivered both of those pregnancies in [place]. Patient is obese. 3 hour G TT ordered by Dr. Jennings. History of hypertension 10/31/2012 08/14/20 19 Overview: 10/31/2012Nahed has seen Dr. Sorto for benign hypertension that was diagnosed in 2004. She has been off medication since April 2006. Reading difficulty 10/31/2012 08/14/2019 Overview: 10/31/2012Pt states she has trouble reading. She states she has dyslexia. Family history of defects 10/31/2012 08/14/2019 Overview: 10/31/2012 The FOB was born with cleft lip and so was his aunt as well. History of anesthesia complications 10/31/2012 07/18/2013 Overview: 10/31/2012Patient states she had a blood patch to treat her spinal headaches after the of her second child . Amenorrhea 10/15/2012 02/03/2013 Irregular menstrual bleeding 06/13/201208/2013 Postcoital bleeding 06/13/2012 09/26/2012 Hemorrhoids 05/19/2011 02/03/2013 Closed fracture of metacarpal bone(s), site unsp ecified 01/05/2010 02/03/2013 Glycosuria 07/06/2009 07/18/2013 documented as of this encounter (statuses as of 06/05/2022) [facility] History of Past illness Narrative* Problem Noted Date Resolved Date Umbilical hernia 06/07/2017 08/14/2019 Overview: Added automatically from request for surgery [id number] Nipple discharge 02/19/2016 08/14/2019 Lump or mass in breast 02/19/2016 9 Abnormal glucose complicating 03/16/20 13 07/18/2013 Overview: One abnormally elevated value on 3 hour GTT LOC (loss of consciousness) 02/03/201307/08 Rubella non-immune status, antepartum 11/01/2012 07/18/2013 History of 10/31/2012 07/18/2013 Overview: 10/31/2012She had 3 previous C -Sections. She desires a repeat by Dr. Renee Manuel. History of gestational diabetes 10/31/2012 10/13/2020 Overview: 10/31/2012Patient had gestational diabetes with her last 2 pregnancies. She was on glyburide with the that she delivered in 2009. She was insulin- dependent her last . She delivered both of those pregnancies in [place]. Patient is obese. 3 hour G TT ordered by Dr. Jennings. History of hypertension 10/31/2012 08/14/20 19 Overview: 10/31/2012Nahed has seen Dr. Sorto for benign hypertension that was diagnosed in 2004. She has been off medication since April 2006. Reading difficulty 10/31/2012 08/14/2019 Overview: 10/31/2012Pt states she has trouble reading. She states she has dyslexia. Family history of defects 10/31/2012 08/14/2019 Overview: 10/31/2012 The FOB was born with cleft lip and so was his aunt as well. History of anesthesia complications 10/31/2012 07/18/2013 Overview: 10/31/2012Patient states she had a blood patch to treat her spinal headaches after the of her second child . Amenorrhea 10/15/2012 02/03/2013 Irregular menstrual bleeding 06/13/201208/2013 Postcoital bleeding 06/13/2012 09/26/2012 Hemorrhoids 05/19/2011 02/03/2013 Closed fracture of metacarpal bone(s), site unsp ecified 01/05/2010 02/03/2013 Glycosuria 07/06/2009 07/18/2013 documented as of this encounter (statuses as of 06/13/2022) [facility] History of Past illness Narrative* Problem Noted Date Resolved Date Umbilical hernia 06/07/2017 08/14/2019 Overview: Added automatically from request for surgery [id number] Nipple discharge 02/19/2016 08/14/2019 Lump or mass in breast 02/19/2016 9 Abnormal glucose complicating 03/16/20 13 07/18/2013 Overview: One abnormally elevated value on 3 hour GTT LOC (loss of consciousness) 02/03/201307/08 Rubella non-immune status, antepartum 11/01/2012 07/18/2013 History of 10/31/2012 07/18/2013 Overview: 10/31/2012She had 3 previous C -Sections. She desires a repeat by Dr. Renee Manuel. History of gestational diabetes 10/31/2012 10/13/2020 Overview: 10/31/2012Patient had gestational diabetes with her last 2 pregnancies. She was on glyburide with the that she delivered in 2009. She was insulin- dependent her last . She delivered both of those pregnancies in [place]. Patient is obese. 3 hour G TT ordered by Dr. Jennings. History of hypertension 10/31/2012 08/14/20 19 Overview: 10/31/2012Nahed has seen Dr. Sorto for benign hypertension that was diagnosed in 2004. She has been off medication since April 2006. Reading difficulty 10/31/2012 08/14/2019 Overview: 10/31/2012Pt states she has trouble reading. She states she has dyslexia. Family history of defects 10/31/2012 08/14/2019 Overview: 10/31/2012 The FOB was born with cleft lip and so was his aunt as well. History of anesthesia complications 10/31/2012 07/18/2013 Overview: 10/31/2012Patient states she had a blood patch to treat her spinal headaches after the of her second child . Amenorrhea 10/15/2012 02/03/2013 Irregular menstrual bleeding 06/13/201208/2013 Postcoital bleeding 06/13/2012 09/26/2012 Hemorrhoids 05/19/2011 02/03/2013 Closed fracture of metacarpal bone(s), site unsp ecified 01/05/2010 02/03/2013 Glycosuria 07/06/2009 07/18/2013 documented as of this encounter (statuses as of 06/20/2022) [facility] History of Past illness Narrative* Problem Noted Date Resolved Date Umbilical hernia 06/07/2017 08/14/2019 Overview: Added automatically from request for surgery [id number] Nipple discharge 02/19/2016 08/14/2019 Lump or mass in breast 02/19/2016 9 Abnormal glucose complicating 03/16/20 13 07/18/2013 Overview: One abnormally elevated value on 3 hour GTT LOC (loss of consciousness) 02/03/201307/08 Rubella non-immune status, antepartum 11/01/2012 07/18/2013 History of 10/31/2012 07/18/2013 Overview: 10/31/2012Nahed had 3 previous C -Sections. She desires a repeat by Dr. Renee Manuel. History of gestational diabetes 10/31/2012 10/13/2020 Overview: 10/31/2012Patient had gestational diabetes with her last 2 pregnancies. She was on glyburide with the that she delivered in 2009. She was insulin- dependent her last . She delivered both of those pregnancies in [place]. Patient is obese. 3 hour G TT ordered by Dr. Jennings. History of hypertension 10/31/2012 08/14/20 Overview: 10/31/2012Nahed has seen Dr. Sorto for benign hypertension that was diagnosed in 2004. She has been off medication since April 2006. Reading difficulty 10/31/2012 08/14/2019 Overview: 10/31/2012Pt states she has trouble reading. She states she has dyslexia. Family history of defects 10/31/2012 08/14/2019 Overview: 10/31/2012 The FOB was born with cleft lip and so was his aunt as well. History of anesthesia complications 10/31/2012 07/18/2013 Overview: 10/31/2012Patient states she had a blood patch to treat her spinal headaches after the of her second child . Amenorrhea 10/15/2012 02/03/2013 Irregular menstrual bleeding 06/13/201208/2013 Postcoital bleeding 06/13/2012 09/26/2012 Hemorrhoids 05/19/2011 02/03/2013 Closed fracture of metacarpal bone(s), site unsp ecified 01/05/2010 02/03/2013 Glycosuria 07/06/2009 07/18/2013 documented as of this encounter (statuses as of 07/04/2022) [facility] History of Past illness Narrative* Problem Noted Date Resolved Date Umbilical hernia 06/07/2017 08/14/2019 Overview: Added automatically from request for surgery [id number] Nipple discharge 02/19/2016 08/14/2019 Lump or mass in breast 02/19/2016 9 Abnormal glucose complicating 03/16/20 13 07/18/2013 Overview: One abnormally elevated value on 3 hour GTT LOC (loss of consciousness) 02/03/201307/08 Rubella non-immune status, antepartum 11/01/2012 07/18/2013 History of 10/31/2012 07/18/2013 Overview: 10/31/2012Nahed had 3 previous C -Sections. She desires a repeat by Dr. Renee Manuel. History of gestational diabetes 10/31/2012 10/13/2020 Overview: 10/31/2012Patient had gestational diabetes with her last 2 pregnancies. She was on glyburide with the that she delivered in 2009. She was insulin- dependent her last . She delivered both of those pregnancies in [place]. Patient is obese. 3 hour G TT ordered by Dr. Jennings. History of hypertension 10/31/2012 08/14/20 19 Overview: 10/31/2012Nahed has seen Dr. Sorto for benign hypertension that was diagnosed in 2004. She has been off medication since April 2006. Reading difficulty 10/31/2012 08/14/2019 Overview: 10/31/2012Pt states she has trouble reading. She states she has dyslexia. Family history of defects 10/31/2012 08/14/2019 Overview: 10/31/2012 The FOB was born with cleft lip and so was his aunt as well. History of anesthesia complications 10/31/2012 07/18/2013 Overview: 10/31/2012Patient states she had a blood patch to treat her spinal headaches after the of her second child . Amenorrhea 10/15/2012 02/03/2013 Irregular menstrual bleeding 06/13/201208/2013 Postcoital bleeding 06/13/2012 09/26/2012 Hemorrhoids 05/19/2011 02/03/2013 Closed fracture of metacarpal bone(s), site unsp ecified 01/05/2010 02/03/2013 Glycosuria 07/06/2009 07/18/2013 documented as of this encounter (statuses as of 08/23/2022) [facility] Evaluation note* Diagnosis Onset Date Resolution Status SAHU (dyspnea on exertion) [place] Hypotension acute Tachycardia acute History of syncope August, [facility] Work Phone: 1([phone]) 604-656911-01-2013 Evaluation note* Diagnosis Onset Date Resolution Status Chest pain acute Hypotension acute Tachycardia acute Tremor acute History of syncope August, [facility] Work Phone: Consult note Author Lj Quinn [facility] Note Date/Time May 20, 2025 2: 24pm [facility] Medical Records Department [address] [place] [address] Pre-Anesthesia Evaluation 05/20/25 1355 MR#: [id number] Acct: [id number] Name: REINALDO WARREN Rep #: [id number] : 1985 40 From: Lj Scott PCP: JUANA FuentesC Status:[facility] Y Race: C Location: [place] [address]1 ASA Classification* ASA Classification ASA Classification: 2 Assessment & Plan Anesthesia* Anesthesia Assessment Anesthesia Assessment: Discussed sedation and/or anesthesia options, risks, benefits, and alternatives with patient/parents/legal guardian/POA. Questions invited. The patient/parents/legal guardian/POA seems to understand and agrees to proceedwith anesthesia plan. Reviewed the physical assessment, medical history, allergy history and patient home medications list prior to surgery/procedure/anesthetic and documented any changes. Performed airway and anesthesia risk assessments. Anesthesia Type Anesthesia Type: MAC History Source History Obtained from:: Patient and Chart Anesthesia Focused Assessment* Temperature: 98 F Pulse Rate: 87 Blood Pressure: 138/96 Respiratory Rate: 16 Pulse Ox: 100 Oxygen Delivery Method: Room Air Airway Assessment Mouth opens: >3 cm Mallampati Score: II Neck Range of motion (ROM): Limited ROM Labs Anesthesia Preop lab: CBC WBC 7.4 K/mm3 (4.4-11.0) 07/15/24 19:02 07/15/24 RBC 4.37 M/mm3 (4.2-5.4) 07/15/24 19:02 07/15/24 Hgb 13.4 g/dL (12.0-15.0) 07/15/24 19:02 07/15/24 Hct 39.4 % (37-47) 07/15/24 19:02 07/15/24 Plt Count 201 K/mm3 (150-450) 07/15/24 19:02 07/15/24 CHEMISTRY Potassium 4.2 mmol/L (3.5-5.1) 05/10/24 07:00 05/10/24 Sodium 138 mmol/L (136-145) 05/10/24 07:00 05/10/24 Magnesium 2.2 mg/dL (1.6-2.6) 05/25/23 15:12 05/25/23 BUN 14 mg/dL (7-18) 05/10/24 07:00 05/10/24 Creatinine 0.76 mg/dL (0.55-1.02) 05/10/24 07:00 05/10/24 Glucose 188 mg/dL (74-106) H 05/10/24 07:00 05/10/24 POC Glucose 153 mg/dL (74-106) H 05/12/24 11:39 05/12/24 TSH 2.38 uIU/mL (0.358-3.74) 05/25/23 15:12 COAG PT 13.3 SECONDS (11.7-14.9) 06/20/17 09:30 Urine Test Negative Negative 02/24/21 14:10 02/24/21 Pre-Assessment Diagnosis/Proposed Procedure Planned Operative Procedure(s): COLONOSCOPY/EGD Anesthesia History 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 When Was Last Pacemaker Check QUESTION #4 FULL TEXT: You/Your Family Experience fever (hyperthermia) with Anesthesia Last Oral Intake Last Oral intake: Last Oral Intake NPO since 09:00 05/20/25 13:41 Meds taken in AM with sips of water? 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 Female Yes 05/19/25 10:06 HX of Motion Sickness No 05/19/25 10:06 HX of N/V After Surgery No 05/19/25 10:06 Non-Smoker Yes 05/19/25 10:06 Duration of Surgery greater No 05/19/25 10:06 than 60 minutes Number of Risk Factors 2 05/19/25 10:06 PONV Score Moderate Risk 05/19/25 10:06 Height & Weight Height & Weight: Anesthesia: Height & Weight Height 5 ft 4 in 05/20/25 13:41 Weight: 88 kg 05/20/25 13:41 Body Mass Index (BMI) 33.3 05/20/25 13:41 Respiratory Assessment Respiratory Assessment - discotheque dancer: Respiratory Tract Infection Hx - discotheque dancer Hx Respiratory Tract Infection No 05/19/25 10:06 STOP Sleep Apnea STOP Sleep Apnea - discotheque dancer: STOP Sleep Apnea - discotheque dancer Hx Hypertension Yes: NOT CONTROLLED 05/19/25 10:06 Hx Sleep Apnea No 05/19/25 10:06 CPAP No 05/19/25 10:06 BIPAP No 05/19/25 10:06 Do you snore loudly (louder No 05/19/25 10:06 than talking or can be heard Do you often feel tired/ No 05/19/25 10:06 fatigued/ sleepy during daytime? Has anyone observed you stop No 05/19/25 10:06 breathing during sleep? STOP Results Negative 05/19/25 10:06 QUESTION #5 FULL TEXT : Do you snore loudly (louder than talking or can be heard through closed doors)? 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 Specify any problems Hx of Preganancy in last 3 No 05/19/25 10:06 Months Nurse Filling Out Transfusion VCHRISTIN 05/19/25 10:06 & Questions: Date: 05/19/25 05/19/25 10:06 Time: 10:07 05/19/25 10:06 Patient unable to answer at this time (ie. confused, unrespo /Reproduction History /Reproductive History - discotheque dancer: /Reproductive Hx- discotheque dancer Hx Now No 05/19/25 10:06 Gestational Age (in weeks): EDC: Hx Hx Para Hx Section SAB No 05/19/25 10:06 Active Medications Active Medications: Current Medications Generic Name Dose Route Start Last Admin Trade Name Freq PRN Reason Stop Dose Admin Lactated Ringer's 1,000 mls @ 15 mls/hr 05/20/25 13:45 05/20/25 13:50 IV 15 mls/hr .Q48H NORA Administration PFSH Medical History Wears dentures Wears glasses Depression Anxiety Diabetes Kidney stones Fatty liver High cholesterol Excessive bleeding TIA (transient ischemic attack) Former smoker History of echocardiogram History of stress test Cardiology follow-up encounter History of irregular heartbeat History of IBS History of anxiety History of depression History of asthma History of seasonal allergies Pott's disease Hypotension COVID-19 virus detected (02/12/21) History of syncope (08/2013) Asthma Dyslexia Migraine History of gestational diabetes Dysthymic disorder Essential hypertension Urinary tract infection Cervical paraspinal muscle spasm Depression Seizures Seizure disorder Type 2 diabetes mellitus Home Medications ?Medication ?Instructions ?Recorded ?Last Taken ?Type handicap placard #1 ea 12/18/22 Unknown Rx miscellaneous medical supply #1 ea 12/18/22 Unknown Rx (Blood Pressure Cuff) mirtazapine 15 mg tablet 15 mg PO QHS 05/09/24 History venlafaxine 150 mg 150 mg PO DAILY 05/09/2412/01 History capsule,extended release 24 hr venlafaxine 37.5 mg 37.5 mg PO DAILY 05/09/24 History capsule,extended release 24 hr lisinopril 10 mg tablet 10 mg PO DAILY 30 days #30 t abs 05/12/24 Unknown Rx Held on 05/19/25. Instructions: RAN OUT OF aripiprazole 15 mg tablet (Abilify) 15 mg PO QDAY 02/05 07/02 Unknown History Held on 05/19/25. Instructions: NEVER REFILLED atorvastatin 10 mg tablet (Lipitor) 10 mg PO QDAY 02/05 07/02 Unknown History Held on 05/19/25. Instructions: NOT TAKING RAN OUT gabapentin 100 mg capsule 100 mg PO Q8H PRN pain 02/23 Unknown History metoprolol succinate 25 mg 50 mg PO QDAY 02/23/25 Unkn own History tablet,extended release 24 hr pantoprazole 20 mg tablet,delayed 20 mg PO QDAY Unknown History release trazodone 100 mg tablet 100 mg PO QHS PRN insomnia 0 02/23/25 Unknown History dicyclomine 10 mg capsule 10 mg PO TID PRN abdominal p ain 04/13/25 Unknown Rx and cramping #60 caps peg 3350-electrolytes 236 240 ml PO Q10M #4,000 mL Unknown Rx gram-22.74 gram-6.74 gram-5.86 gram solution (Golytely) calcium 500 mg (as 1 tab PO BID 05/19/25 Unknow n History carbonate)-vitamin D3 5 mcg (200 unit) tablet (Oyster Shell Calcium-Vitamin D3) dulaglutide 0.75 mg/0.5 mL 0.75 mg subcut QWEEK 05/09/25 History subcutaneous pen injector (Trulicity) Allergy/AdvReac Type Severity Reaction Status Date / Time amoxicillin (From Augmentin) Allergy Unknown unknown Verified 05/20/25 13:39 clavulanic acid (From Allergy Unknown unknown Verified 05/20/25 13:39 Augmentin) codeine phosphate (From Allergy Swelling Verified 05/20/25 13:39 Tylenol-Codeine #3) shellfish derived Allergy Swelling Verified 05/20/25 13:39 venom-honey bee (bee venom Allergy Angioedema Verified 05/20/25 13:39 (honey bee)) Family History Mother Asthma Hypertension Breast cancer Diabetes Father Diabetes Hypertension Hyperlipidemia Colon cancer on fathers side of the family Grandmother Myocardial infarction Grandfather Cancer Lung Grandfather Cancer Throat Aunt Breast cancer Surgical History History of History of tubal ligation History of umbilical hernia repair History of cholecystectomy Social History Smoking Status: Former smoker how long ago did patient quit smokin years ago alcohol intake: never substance use type: does not use additional social history: denies vaping, denies marijuana use, denies edibles, uses ibuprofen and aspirin as needed Review of Systems (Anesthesia) ROS Narrative System reviewed and no additional complaints, except as documented. 05/20/25 1424 <Electronically signed by Lj Quinn MD> Date _ Lj Quinn MD Cosigner Signature: Date CC: ~ Signed [facility] Work Phone: consult note Author Greyson Hubbard [facility] Note Date/Time May 20, 2025 3: 02pm [facility] Medical Records Department [address] [place] [address] Anesthesia Postop Eval I 05/20/25 1500 MR#: [id number] Acct: [id number] Name: REINALDO WARREN Rep #: [id number] : 1985 40 From: Greyson Hubbard PCP: Petros Cespedes NP-C Status:REG [facility] Y Race: C Location: [place] [address] Anesthesia: Postop Eval I Current Vital Signs Temperature: 97 F Pulse Rate: 81 Blood Pressure: 115/79 Respiratory Rate: 16 Pulse Ox: 99 Oxygen Delivery Method: Room Air Assessment Airway patent: Yes Spontaneous unlabored respirations: Yes Mental status: Asleep nausea: No Vomiting: No Anesthesia Complication: No Fluid Hydration Crystalloid volume administer (ml): 500 Total IV fluid infused: 500 Progress Note Anesthesia document: Postop Eval 1 completed: Yes 05/20/25 1502 <Electronically signed by Greyson Hubbard > Date _ Greyson Oconnor Signature: Date CC: ~ Signed [facility] Work Phone: consult note Author Leny Turk [facility] Note Date/Time May 20, 2025 3: 46pm [facility] Medical Records Department [address] [place] [address] Anesthesia Postop Eval II 05/20/25 1537 MR#: [id number] Acct: [id number] Name: REINALDO WARREN Rep #: [id number] : 1985 40 From: Leny Turk CRNA PCP: Petros Cespedes, [employer]-C Status:REG [facility] Y Race: C Location: [place] [address] Anesthesia Postop Eval I Sum Postop Eval Completion status Anesthesia document: Postop Eval 1 completed: Yes Anesthesia Postop Eval I Summary Anesthesia Postop Eval I Summary: Anesthesia Postop Eval I: Assessment Summary Airway patent Yes 05/20/25 15:02 [email or web address] Spontaneous unlabored Yes 05/20/25 15:02 [email or web address] respirations Mental status Asleep 05/20/25 15:02 [email or web address] nausea No 05/20/25 15:02 [email or web address] Vomiting No 05/20/25 15:02 [email or web address] Anesthesia Postop Eval I: Fluid Summary Crystalloid volume administer 500 05/20/25 15:02 [email or web address] (ml) Colloids volume administered ( ml) Blood Product volume administered (ml) Total IV fluid infused 500 05/20/25 15:02 [email or web address] Anesthesia Postop Eval I: Summary Notes Anesthesia Complication No 05/20/25 15:02 [email or web address] Anesthesia Complication Comment: Post-operative progress note Anesthesia: Postop Eval II Evaluation Mental status: Awake Pain Level: 0 nausea: No Vomiting: No 05/20/25 1537 <Electronically signed by Leny hernández LITHOGRAPH PRESS OPERATOR> Date _ Leny Turk LITHOGRAPH PRESS OPERATOR Cosigner Signature: Date CC: ~ Signed [facility] Work Phone: Evaluation + Plan note No data available for this section [facility] Evaluation note* Diagnosis Generalized [facility] Diagnosis Type 2 diabetes mellitus with hyperglycaemia (HCC)- Primary [facility] Diagnosis Generalized anxiety disorder [facility] Diagnosis Adjustment disorder with depressed mood [facility] Diagnosis Generalized anxiety disorder [facility] Diagnosis Generalized anxiety disorder [facility] Diagnosis Generalized anxiety disorder Adjustment disorder with depressed mood Current severe 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 (HCC) [facility] Diagnosis Muscle tightness- Primary Unspecified disorder of muscle, ligament, and fascia [facility] Diagnosis Psychogenic nonepileptic seizure- Primary [facility] Diagnosis Generalized anxiety disorder Adjustment disorder with depressed mood Current severe 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 (HCC) [facility] Diagnosis Hypertension, essential Unspecified essential hypertension [facility] Diagnosis Generalized anxiety disorder [facility] Diagnosis Syncope, unspecified syncope type- Primary Type 2 diabetes mellitus with other specified complication, with long-term current use of insulin (HCC) Generalized anxiety disorder Tachycardia Tachycardia, unspecified [facility] Diagnosis Psychogenic nonepileptic seizure- Primary Syncope and collapse [facility] noteNo assessment information [facility] Work Phone: [facility]* Diagnosis Current severe 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 (HCC) [facility] Diagnosis Psychogenic nonepileptic seizure [facility] Diagnosis Current severe 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 (HCC) [facility] Diagnosis Generalized anxiety disorder [facility] Diagnosis PTSD (post-traumatic stress disorder) Posttraumatic stress disorder Adjustment disorder with depressed mood Generalized anxiety disorder [facility] Diagnosis PTSD (post-traumatic stress disorder) Posttraumatic stress disorder Adjustment disorder with depressed mood Generalized anxiety disorder documented in this encounter [facility] note* Diagnosis Psychogenic nonepileptic seizure- Primary [facility] Diagnosis Generalized anxiety disorder [facility] Diagnosis Generalized anxiety disorder [facility] Diagnosis Nipple discharge- Primary Other sign and symptom in breast Mass of right breast, unspecified quadrant documented in this encounter [facility] note* Diagnosis Type 2 diabetes mellitus without complication, with long-term current use of insulin ([facility])- Primary Wellness examination Vaginal itching Pruritus of genital organs Seizure disorder ([facility]) Unspecified epilepsy without mention of intractable epilepsy Type 2 diabetes mellitus with other specified complication, with long-term current use of insulin ([facility]) [facility] Diagnosis Type 2 diabetes mellitus without complication, with long-term current use of insulin ([facility]) [facility]* Diagnosis Hyperlipidemia, mixed- Primary Mixed hyperlipidemia Type 2 diabetes mellitus without complication, with long-term current use of insulin ([facility]) documented in this encounter [facility] note* Diagnosis Generalized anxiety disorder documented in this encounter [facility] note* Diagnosis Hypertension, essential Unspecified essential hypertension documented in this encounter [facility] note* Diagnosis Poorly controlled type 2 diabetes mellitus (HCC)- Primary Type II or unspecified type diabetes mellitus without mention of complication, not stated as uncontrolled Coarse tremors Abnormal involuntary movements documented in this encounter [facility] note* Diagnosis UTI (urinary tract infection), uncomplicated- Primary Urinary tract infection, site not specified Syncope, near documented in this encounter [facility] Work Phone: Evaluation note* Diagnosis Current severe 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 (HCC) [facility] Diagnosis UTI (urinary tract infection), uncomplicated- Primary Urinary tract infection, site not specified Syncope, near documented in this encounter [facility] Work Phone: Evaluation note* Diagnosis Current severe 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 (HCC) [facility] Diagnosis Current severe 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 (HCC) documented in this encounter [facility] note* Diagnosis Generalized anxiety disorder Current severe 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 (HCC) documented in this encounter [facility] note* Diagnosis Current severe 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 (HCC) documented in this encounter [facility] note* Diagnosis Current severe 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 (HCC) documented in this encounter [facility] note* Diagnosis Periumbilical abdominal pain- Primary Abdominal pain, periumbilic Periumbilical abdominal pain Abdominal pain, periumbilic SBO (small bowel obstruction) ([facility]) Unspecified intestinal obstruction documented in this encounter [facility] Work Phone: Evaluation note* Diagnosis Hypoglycemia- Primary Hypoglycemia, unspecified Urinary tract infection without hematuria, site unspecified documented in this encounter [facility] Work Phone: Evaluation note* Diagnosis Current severe 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 (HCC)- Primary Generalized anxiety disorder documented in this encounter [facility] note* Diagnosis Pain, dental- Primary Elevated blood sugar Other abnormal glucose documented in this encounter [facility] Work Phone: Evaluation note* Diagnosis Current severe 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 (HCC) Generalized anxiety disorder documented in this encounter [facility] note* Diagnosis Hypertension, essential Unspecified essential hypertension documented in this encounter [facility] note* Diagnosis Generalized anxiety disorder- Primary Current severe 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 (HCC) documented in this encounter [facility] note* Diagnosis Postural dizziness with presyncope- Primary documented in this encounter [facility] Work Phone: Evaluation note* Diagnosis Hyperlipidemia, mixed Mixed hyperlipidemia documented in this encounter [facility] note* Diagnosis Current severe 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 (HCC) Generalized anxiety disorder documented in this encounter [facility] note* Diagnosis Post-traumatic stress disorder, acute- Primary Posttraumatic stress disorder Adjustment disorder with depressed mood documented in this encounter [facility] note* Diagnosis Finger pain, right- Primary Pain in limb [facility] Diagnosis Post-traumatic stress disorder, acute Posttraumatic stress disorder [facility] Diagnosis Chest pain, unspecified type- Primary Primary hypertension Unspecified essential hypertension documented in this encounter [facility] Work Phone: Evaluation note* Diagnosis Lumbar back pain with radiculopathy affecting left lower extremity- Primary Rotator cuff tendonitis, right documented in this encounter [facility] Work Phone: Evaluation note* Diagnosis ERRONEOUS ENCOUNTER--DISREGARD- Primary documented in this encounter [facility] Work Phone: Evaluation note* Diagnosis Primary hypertension- Primary Unspecified essential hypertension Severe episode of recurrent major depressive disorder, without psychotic features (Multi) Generalized anxiety disorder with panic attacks Rotator cuff tendonitis, right Mild intermittent asthma without complication (HHS-HCC) documented in this encounter [facility] Work Phone: Evaluation note* Diagnosis Pre-operative examination- Primary Preoperative examination, unspecified Intermittent alternating exotropia Intermittent exotropia, alternating Hypertension, essential Unspecified essential hypertension Adjustment disorder with depressed mood Mild intermittent asthma without complication Unspecified asthma Controlled type 2 diabetes mellitus without complication, without long-term current use of insulin (HCC) Seizures (HCC) Other convulsions Class 2 obesity without serious comorbidity with body mass index (BMI) of 35.0 to 35.9 in adult, unspecified obesity type Acute pain of right shoulder [facility] Diagnosis Rotator cuff tendonitis, right- Primary Other synovitis and tenosynovitis, right hand Synovitis of finger Other tenosynovitis of hand and wrist documented in this encounter [facility] Work Phone: Evaluation note* Diagnosis Rotator cuff tendonitis, right- Primary Lumbar back pain with radiculopathy affecting left lower extremity Rotator cuff tendonitis, right- Primary Other synovitis and tenosynovitis, right hand Synovitis of finger Other tenosynovitis of hand and wrist Rotator cuff tendonitis, right documented in this encounter [facility] Work Phone: Evaluation note* Diagnosis Rotator cuff tendonitis, right- Primary Lumbar back pain with radiculopathy affecting left lower extremity Rotator cuff tendonitis, right- Primary Other synovitis and tenosynovitis, right hand Synovitis of finger Other tenosynovitis of hand and wrist Rotator cuff tendonitis, right Rotator cuff tendonitis, right Bipolar 2 disorder (Multi) Other bipolar disorders Severe episode of recurrent major depressive disorder, without psychotic features (Multi) Primary insomnia Persistent disorder of initiating or maintaining sleep documented in this encounter [facility] Work Phone: Evaluation note* Diagnosis Pre-operative examination- Primary Preoperative examination, unspecified Intermittent alternating exotropia Intermittent exotropia, alternating Hypertension, essential Unspecified essential hypertension Adjustment disorder with depressed mood Mild intermittent asthma without complication Unspecified asthma Controlled type 2 diabetes mellitus without complication, without long-term current use of insulin (HCC) Seizures (HCC) Other convulsions Class 2 obesity without serious comorbidity with body mass index (BMI) of 35.0 to 35.9 in adult, unspecified obesity type Current severe 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 (HCC)- Primary Generalized anxiety disorder PTSD (post-traumatic stress disorder) Posttraumatic stress disorder [facility] Diagnosis Pre-operative examination- Primary Preoperative examination, unspecified Intermittent alternating exotropia Intermittent exotropia, alternating Hypertension, essential Unspecified essential hypertension Adjustment disorder with depressed mood Mild intermittent asthma without complication Unspecified asthma Controlled type 2 diabetes mellitus without complication, without long-term current use of insulin (HCC) Seizures (HCC) Other convulsions Class 2 obesity without serious comorbidity with body mass index (BMI) of 35.0 to 35.9 in adult, unspecified obesity type Current severe 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 (HCC) Generalized anxiety disorder [facility] Diagnosis Chest pain, unspecified type- Primary Dyspnea, unspecified type documented in this encounter [facility] Work Phone: Evaluation note* Diagnosis Severe episode of recurrent major depressive disorder, without psychotic features (Multi)- Primary Primary hypertension Unspecified essential hypertension Mixed diabetic hyperlipidemia associated with type 2 diabetes mellitus (Multi) Vitamin D deficiency Low serum vitamin B12 Low iron Unspecified iron deficiency anemia documented in this encounter [facility] Work Phone: Evaluation note* Diagnosis Situational anxiety- Primary Panic attack Panic disorder without agoraphobia documented in this encounter [facility] Work Phone: Evaluation note* Diagnosis Bipolar 2 disorder (Multi) Other bipolar disorders Bipolar 1 disorder (Multi) Primary insomnia Persistent disorder of initiating or maintaining sleep documented in this encounter [facility] Work Phone: Evaluation note* Diagnosis Bipolar 2 disorder (Multi) Other bipolar disorders documented in this encounter [facility] Work Phone: Evaluation note* Diagnosis Primary insomnia Persistent disorder of initiating or maintaining sleep documented in this encounter [facility] Work Phone: Evaluation note* Diagnosis Elevated blood pressure reading- Primary Elevated blood pressure reading without diagnosis of hypertension Acute pain of right shoulder documented in this encounter [facility] Work Phone: Evaluation note* Diagnosis Rotator cuff tendonitis, right- Primary Lumbar back pain with radiculopathy affecting left lower extremity Rotator cuff tendonitis, right- Primary Other synovitis and tenosynovitis, right hand Synovitis of finger Other tenosynovitis of hand and wrist Rotator cuff tendonitis, right Rotator cuff tendonitis, right documented in this encounter [facility] Work Phone: Evaluation note* Diagnosis Rotator cuff tendonitis, right- Primary Lumbar back pain with radiculopathy affecting left lower extremity Rotator cuff tendonitis, right- Primary Other synovitis and tenosynovitis, right hand Synovitis of finger Other tenosynovitis of hand and wrist Rotator cuff tendonitis, right Rotator cuff tendonitis, right Rotator cuff tendonitis, right Depression, unspecified depression type- Primary documented in this encounter [facility] Work Phone: Evaluation note* Diagnosis Pre-operative examination- Primary Preoperative examination, unspecified Intermittent alternating exotropia Intermittent exotropia, alternating Hypertension, essential Unspecified essential hypertension Adjustment disorder with depressed mood Mild intermittent asthma without complication Unspecified asthma Controlled type 2 diabetes mellitus without complication, without long-term current use of insulin (HCC) Seizures (HCC) Other convulsions Class 2 obesity without serious comorbidity with body mass index (BMI) of 35.0 to 35.9 in adult, unspecified obesity type Current severe 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 (HCC) Generalized anxiety disorder Post-traumatic stress disorder, acute Posttraumatic stress disorder [facility] Pre-operative examination- Primary Preoperative examination, unspecified Intermittent alternating exotropia Intermittent exotropia, alternating Hypertension, essential Unspecified essential hypertension Adjustment disorder with depressed mood Mild intermittent asthma without complication Unspecified asthma Controlled type 2 diabetes mellitus without complication, without long-term current use of insulin (HCC) Seizures (HCC) Other convulsions Class 2 obesity without serious comorbidity with body mass index (BMI) of 35.0 to 35.9 in adult, unspecified obesity type Generalized anxiety disorder- Primary Post-traumatic stress disorder, acute Posttraumatic stress disorder Current severe 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 (HCC) [facility] Rotator cuff tendonitis, right- Primary Lumbar back pain with radiculopathy affecting left lower extremity Rotator cuff tendonitis, right- Primary Other synovitis and tenosynovitis, right hand Synovitis of finger Other tenosynovitis of hand and wrist Rotator cuff tendonitis, right Rotator cuff tendonitis, right Rotator cuff tendonitis, right Syncope, unspecified syncope type- Primary Seizure-like activity (Multi) documented in this encounter [facility] Work Phone: Evaluation note* Diagnosis Rotator cuff tendonitis, right- Primary Lumbar back pain with radiculopathy affecting left lower extremity Rotator cuff tendonitis, right- Primary Other synovitis and tenosynovitis, right hand Synovitis of finger Other tenosynovitis of hand and wrist Rotator cuff tendonitis, right Rotator cuff tendonitis, right Rotator cuff tendonitis, right Acute non-recurrent maxillary sinusitis- Primary Mixed diabetic hyperlipidemia associated with type 2 diabetes mellitus (Multi) Mild intermittent asthma, unspecified whether complicated (HHS-HCC) documented in this encounter [facility] Work Phone: Evaluation note* Diagnosis Rotator cuff tendonitis, right- Primary Lumbar back pain with radiculopathy affecting left lower extremity Rotator cuff tendonitis, right- Primary Other synovitis and tenosynovitis, right hand Synovitis of finger Other tenosynovitis of hand and wrist Rotator cuff tendonitis, right Rotator cuff tendonitis, right Rotator cuff tendonitis, right Mixed diabetic hyperlipidemia associated with type 2 diabetes mellitus (Multi)- Primary Vitamin D deficiency Low vitamin B12 level Hypertension associated with stage 2 chronic kidney disease due to type 2 diabetes mellitus (Multi) documented in this encounter [facility] Work Phone: Evaluation note* Diagnosis Rotator cuff tendonitis, right- Primary Lumbar back pain with radiculopathy affecting left lower extremity Rotator cuff tendonitis, right- Primary Other synovitis and tenosynovitis, right hand Synovitis of finger Other tenosynovitis of hand and wrist Rotator cuff tendonitis, right Rotator cuff tendonitis, right Rotator cuff tendonitis, right Shortness of breath- Primary Dizziness Dizziness and giddiness Tachycardia Unspecified tachycardia documented in this encounter [facility] Work Phone: Evaluation note* Diagnosis Rotator cuff tendonitis, right- Primary Lumbar back pain with radiculopathy affecting left lower extremity Rotator cuff tendonitis, right- Primary Other synovitis and tenosynovitis, right hand Synovitis of finger Other tenosynovitis of hand and wrist Rotator cuff tendonitis, right Rotator cuff tendonitis, right Rotator cuff tendonitis, right Shortness of breath- Primary Dizziness Dizziness and giddiness Tachycardia Unspecified tachycardia Low serum vitamin B12 Hypertension associated with type 2 diabetes mellitus POTS (postural orthostatic tachycardia syndrome) Unspecified tachycardia documented in this encounter [facility] Work Phone: Evaluation note* Diagnosis Rotator cuff tendonitis, right- Primary Lumbar back pain with radiculopathy affecting left lower extremity Rotator cuff tendonitis, right- Primary Other synovitis and tenosynovitis, right hand Synovitis of finger Other tenosynovitis of hand and wrist Rotator cuff tendonitis, right Rotator cuff tendonitis, right Rotator cuff tendonitis, right Tachycardia Unspecified tachycardia Hypertension associated with type 2 diabetes mellitus documented in this encounter [facility] Work Phone: Evaluation note* Diagnosis Pre-operative examination- Primary Preoperative examination, unspecified Intermittent alternating exotropia Intermittent exotropia, alternating Hypertension, essential Unspecified essential hypertension Adjustment disorder with depressed mood Mild intermittent asthma without complication (HCC) Unspecified asthma Controlled type 2 diabetes mellitus without complication, without long-term current use of insulin (HCC) Seizures (HCC) Other convulsions Class 2 obesity without serious comorbidity with body mass index (BMI) of 35.0 to 35.9 in adult, unspecified obesity type Current severe 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 (HCC) Generalized anxiety disorder Post-traumatic stress disorder, acute Posttraumatic stress [facility] Rotator cuff tendonitis, right- Primary Lumbar back pain with radiculopathy affecting left lower extremity Rotator cuff tendonitis, right- Primary Other synovitis and tenosynovitis, right hand Synovitis of finger Other tenosynovitis of hand and wrist Rotator cuff tendonitis, right Rotator cuff tendonitis, right Rotator cuff tendonitis, right Constipation, unspecified constipation type- Primary documented in this encounter [facility] Work Phone: Evaluation note* Diagnosis Rotator cuff tendonitis, right- Primary Lumbar back pain with radiculopathy affecting left lower extremity Rotator cuff tendonitis, right- Primary Other synovitis and tenosynovitis, right hand Synovitis of finger Other tenosynovitis of hand and wrist Rotator cuff tendonitis, right Rotator cuff tendonitis, right Rotator cuff tendonitis, right Constipation, unspecified constipation type- Primary documented in this encounter [facility] Work Phone: Evaluation note* Diagnosis Rotator cuff tendonitis, right- Primary Lumbar back pain with radiculopathy affecting left lower extremity Rotator cuff tendonitis, right- Primary Other synovitis and tenosynovitis, right hand Synovitis of finger Other tenosynovitis of hand and wrist Rotator cuff tendonitis, right Rotator cuff tendonitis, right Rotator cuff tendonitis, right Dizzy spells- Primary Dizziness and giddiness documented in this encounter [facility] Work Phone: Evaluation note* Diagnosis Rotator cuff tendonitis, right- Primary Lumbar back pain with radiculopathy affecting left lower extremity Rotator cuff tendonitis, right- Primary Other synovitis and tenosynovitis, right hand Synovitis of finger Other tenosynovitis of hand and wrist Rotator cuff tendonitis, right Rotator cuff tendonitis, right Rotator cuff tendonitis, right Abnormal electrocardiogram (ECG) (EKG)- Primary Hypertension associated with type 2 diabetes mellitus POTS (postural orthostatic tachycardia syndrome) Unspecified tachycardia Atypical chest pain Other chest pain documented in this encounter [facility] Work Phone: Evaluation note* Diagnosis Rotator cuff tendonitis, right- Primary Lumbar back pain with radiculopathy affecting left lower extremity Rotator cuff tendonitis, right- Primary Other synovitis and tenosynovitis, right hand Synovitis of finger Other tenosynovitis of hand and wrist Rotator cuff tendonitis, right Rotator cuff tendonitis, right Rotator cuff tendonitis, right Atypical chest pain Other chest pain Mixed diabetic hyperlipidemia associated with type 2 diabetes mellitus Low vitamin B12 level Vitamin D deficiency documented in this encounter [facility] Work Phone: Evaluation note* Diagnosis Rotator cuff tendonitis, right- Primary Lumbar back pain with radiculopathy affecting left lower extremity Rotator cuff tendonitis, right- Primary Other synovitis and tenosynovitis, right hand Synovitis of finger Other tenosynovitis of hand and wrist Rotator cuff tendonitis, right Rotator cuff tendonitis, right Rotator cuff tendonitis, right Abnormal electrocardiogram (ECG) (EKG) Atypical chest pain Other chest pain Mixed diabetic hyperlipidemia associated with type 2 diabetes mellitus Low vitamin B12 level Vitamin D deficiency documented in this encounter [facility] Work Phone: Evaluation note* Diagnosis Pre-operative examination- Primary Preoperative examination, unspecified Intermittent alternating exotropia Intermittent exotropia, alternating Hypertension, essential Unspecified essential hypertension Adjustment disorder with depressed mood Mild intermittent asthma without complication (HCC) Unspecified asthma Controlled type 2 diabetes mellitus without complication, without long-term current use of insulin (HCC) Seizures (HCC) Other convulsions Class 2 obesity without serious comorbidity with body mass index (BMI) of 35.0 to 35.9 in adult, unspecified obesity type Muscle tightness Unspecified disorder of muscle, ligament, and fascia [facility] Pre-operative examination- Primary Preoperative examination, unspecified Intermittent alternating exotropia Intermittent exotropia, alternating Hypertension, essential Unspecified essential hypertension Adjustment disorder with depressed mood Mild intermittent asthma without complication (HCC) Unspecified asthma Controlled type 2 diabetes mellitus without complication, without long-term current use of insulin (HCC) Seizures (HCC) Other convulsions Class 2 obesity without serious comorbidity with body mass index (BMI) of 35.0 to 35.9 in adult, unspecified obesity type Current severe 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 (HCC) Generalized anxiety disorder Post-traumatic stress disorder, acute Posttraumatic stress disorder [facility] Pre-operative examination- Primary Preoperative examination, unspecified Intermittent alternating exotropia Intermittent exotropia, alternating Hypertension, essential Unspecified essential hypertension Adjustment disorder with depressed mood Mild intermittent asthma without complication (HCC) Unspecified asthma Controlled type 2 diabetes mellitus without complication, without long-term current use of insulin (HCC) Seizures (HCC) Other convulsions Class 2 obesity without serious comorbidity with body mass index (BMI) of 35.0 to 35.9 in adult, unspecified obesity type Hyperlipidemia, mixed Mixed hyperlipidemia Hypertension, essential Unspecified essential hypertension [facility] Diagnosis Rotator cuff tendonitis, right- Primary Lumbar back pain with radiculopathy affecting left lower extremity Rotator cuff tendonitis, right- Primary Other synovitis and tenosynovitis, right hand Synovitis of finger Other tenosynovitis of hand and wrist Rotator cuff tendonitis, right Rotator cuff tendonitis, right Rotator cuff tendonitis, right Nausea and vomiting, unspecified vomiting type- Primary Viral syndrome Unspecified viral infection, in conditions classified elsewhere and of unspecified site documented in this encounter [facility] Work Phone: Evaluation note* Diagnosis Rotator cuff tendonitis, right- Primary Lumbar back pain with radiculopathy affecting left lower extremity Rotator cuff tendonitis, right- Primary Other synovitis and tenosynovitis, right hand Synovitis of finger Other tenosynovitis of hand and wrist Rotator cuff tendonitis, right Rotator cuff tendonitis, right Rotator cuff tendonitis, right Pain of upper abdomen- Primary documented in this encounter [facility] Work Phone: Evaluation note* Diagnosis Onset Date Resolution Status Admit Date Abdominal cramping acute April 132024 1:33pm Nausea and vomiting acute April 13, 2025 1:33pm [facility] Work Phone: Evaluation note* Diagnosis Pre-operative examination- Primary Preoperative examination, unspecified Intermittent alternating exotropia Intermittent exotropia, alternating Hypertension, essential Unspecified essential hypertension Adjustment disorder with depressed mood Mild intermittent asthma without complication (HCC) Unspecified asthma Controlled type 2 diabetes mellitus without complication, without long-term current use of insulin (HCC) Seizures (HCC) Other convulsions Class 2 obesity without serious comorbidity with body mass index (BMI) of 35.0 to 35.9 in adult, unspecified obesity type Ovarian cyst, left- Primary Other and unspecified ovarian cyst Pelvic pain in female Unspecified symptom associated with female genital organs Poorly control type 2 diabetes mellitus (HCC) Chronic constipation Unspecified constipation Cyst of left ovary Other and unspecified ovarian cyst Dysmenorrhea [facility] Diagnosis Rotator cuff tendonitis, right- Primary Lumbar back pain with radiculopathy affecting left lower extremity Rotator cuff tendonitis, right- Primary Other synovitis and tenosynovitis, right hand Synovitis of finger Other tenosynovitis of hand and wrist Rotator cuff tendonitis, right Rotator cuff tendonitis, right Rotator cuff tendonitis, right Mixed diabetic hyperlipidemia associated with type 2 diabetes mellitus- Primary Hypertension associated with type 2 diabetes mellitus Breast cancer screening by mammogram Class 2 severe obesity due to excess calories with serious comorbidity and body mass index (BMI) of 35.0 to 35.9 in adult documented in this encounter [facility] Work Phone: Evaluation note* Diagnosis Pre-operative examination- Primary Preoperative examination, unspecified Intermittent alternating exotropia Intermittent exotropia, alternating Hypertension, essential Unspecified essential hypertension Adjustment disorder with depressed mood Mild intermittent asthma without complication (HCC) Unspecified asthma Controlled type 2 diabetes mellitus without complication, without long-term current use of insulin (HCC) Seizures (HCC) Other convulsions Class 2 obesity without serious comorbidity with body mass index (BMI) of 35.0 to 35.9 in adult, unspecified obesity type Ovarian cyst, left- Primary Other and unspecified ovarian cyst Pelvic pain in female Unspecified symptom associated with female genital organs [facility] Author Pipo Romero [facility] Note Date/Time May 20, 2025 1: 54pm [facility] Medical Records Department [address] [place] [address] History & Physical Exam 05/20/25 1351 MR#: [id number] Acct: [id number] Name: REINALDO WARREN Rep #: [id number] : 1985 40 From: Pipo Romero DO PCP: Petros Cespedes, [employer] Status:[facility] [place] Location: [place] [address] HPI - General General Date of Admission: 05/20/25 Date of Service: 05/20/25 Chief Complaint: Abdominal pain and diarrhea HPI Narrative REINALDO WARREN, is a 40 F who presents with the Chief Complaint: abdominal cramping and diarrhea - abdominal cramping and diarrhea - stool alternate between formed and loose, can be hard - seen in ER for cramping abdominal pain - reports when cramping is severe she has tiny stools like mice poop - can have episodes of fecal incontinence - ER at 04/11/2025 - reports a couple years ago she had abdominal swelling with OG tube placement - reports a history hemorrhoids and anal fissure, minimal BRBPR - she is uncertain if and when she had a colonoscopy - ketorlac 10mg once daily Q6H for 5 days - Pantoprazole 20mg QD - does not have a list of her meds with her, not really sure what all she is taking - reports she has been non-compliant with doctor appt. 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 Patientstates painis periumbilical and midepigastric in nature. Patient denies any diarrhea but did have nausea. Patient had a bowel movement prior to arrival. Patient does have some mild nausea when I examined her. Denies any fever or chills. Nodysuria. Patient was given Toradol 15 mg IV and had significant improvement of symptoms. Patient will bedischarged on medication. 11/11/2024 - Labs: Blood glucose 272 mg/dL, hemoglobin 11.9 g/dL, white blood cells 4.9 x10^9/L, sodium 135 mmol/L, total bilirubin 1.3 mg/dL, magnesium 1.96 mg/dL. - Imaging: CT scan of abdomen and pelvis showed mild splenomegaly, mildly prominent mesenteric lymph nodes, no bowel obstruction or appendicitis, involuting right ovarian cyst, small amount of free fluid in pelvis. CT 12/06/2023 There is several fluid-filled mildly dilated loops of small bowel measuring up to 3.6 cm with transition point in the pelvis as described above. The distal small bowel loops are decompressed. Findings are concerning for developing small bowel obstruction. Mild haziness of the mesentery. No free air or free fluid. Surgical consultation is advised. - vomiting is intermittent - vomiting food on occasion The patient is a 40-year-old female presenting with abdominal pain and irregularbowel movements. She reports experiencing stomach problems for several years, with symptoms including cramping abdominal pain similar to menstrual cramps, constipation, diarrhea, and changes in stool color and consistency. The patient has visited the emergency room on 04/10/2025, where a CT scan was performed, revealing mild splenomegaly and mildly prominent mesenteric lymph nodes, but no acute bowel obstruction or appendicitis. The patient has a history of diabetes mellitus, diagnosed approximately 8-9 years ago, and has been experiencing elevated blood glucose levels, with a recent reading of 272 mg/dL. She was previously on Trulicity, which was discontinued due to concerns about its impact on bowel movements. The patient has not been on insulin and is seeking to manage her diabetes more effectively. The patient also reports a history of anxiety disorder, which she believes contributes to her symptoms, including episodes of lightheadedness and passing out, possibly related to fluctuating blood pressure. She is currently taking gabapentin for anxiety and as a nerve carlos. The patient has a history of cholecystectomy and reports that certain foods exacerbate her gastrointestinal symptoms. She also has a history of hemorrhoids and an anal fissure, which have contributed to occasional bleeding. A previous CT scan 11/2023 revealed small bowel obstruction and fatty liver. The patient has experienced weight fluctuations, with recent weight gain noted. Attestation: Documentation on this patient encounter was supported using ambient scribe technology/ voice AI technology. The patient consented to recording for the purpose of documenting the encounter. Provider reviewed content of the generatednote prior to signature. [facility] Medical History Wears dentures Wears glasses Depression Anxiety Diabetes Kidney stones Fatty liver High cholesterol Excessive bleeding TIA (transient ischemic attack) Former smoker History of echocardiogram History of stress test Cardiology follow-up encounter History of irregular heartbeat History of IBS History of anxiety History of depression History of asthma History of seasonal allergies Pott's disease Hypotension COVID-19 virus detected (02/12/21) History of syncope (08/2013) Asthma Dyslexia Migraine History of gestational diabetes Dysthymic disorder Essential hypertension Urinary tract infection Cervical paraspinal muscle spasm Depression Seizures Seizure disorder Type 2 diabetes mellitus Home Medications ?Medication ?Instructions ?Recorded ?Last Taken ?Type handicap placard #1 ea 12/18/22 Unknown Rx miscellaneous medical supply #1 ea 12/18/22 Unknown Rx (Blood Pressure Cuff) mirtazapine 15 mg tablet 15 mg PO QHS 05/09/24 History venlafaxine 150 mg 150 mg PO DAILY 05/09/2412/01 History capsule,extended release 24 hr venlafaxine 37.5 mg 37.5 mg PO DAILY 05/09/24 History capsule,extended release 24 hr lisinopril 10 mg tablet 10 mg PO DAILY 30 days #30 t abs 05/12/24 Unknown Rx Held on 05/19/25. Instructions: RAN OUT OF aripiprazole 15 mg tablet (Abilify) 15 mg PO QDAY 02/05 07/02 Unknown History Held on 05/19/25. Instructions: NEVER REFILLED atorvastatin 10 mg tablet (Lipitor) 10 mg PO QDAY 02/05 07/02 Unknown History Held on 05/19/25. Instructions: NOT TAKING RAN OUT gabapentin 100 mg capsule 100 mg PO Q8H PRN pain 02/23 Unknown History metoprolol succinate 25 mg 50 mg PO QDAY 02/23/25 Unkn own History tablet,extended release 24 hr pantoprazole 20 mg tablet,delayed 20 mg PO QDAY Unknown History release trazodone 100 mg tablet 100 mg PO QHS PRN insomnia 0 02/23/25 Unknown History dicyclomine 10 mg capsule 10 mg PO TID PRN abdominal p ain 04/13/25 Unknown Rx and cramping #60 caps peg 3350-electrolytes 236 240 ml PO Q10M #4,000 mL Unknown Rx gram-22.74 gram-6.74 gram-5.86 gram solution (Golytely) calcium 500 mg (as 1 tab PO BID 05/19/25 Unknow n History carbonate)-vitamin D3 5 mcg (200 unit) tablet (Oyster Shell Calcium-Vitamin D3) dulaglutide 0.75 mg/0.5 mL 0.75 mg subcut QWEEK 05/09/25 History subcutaneous pen injector (Trulicity) Allergy/AdvReac Type Severity Reaction Status Date / Time amoxicillin (From Augmentin) Allergy Unknown unknown Verified 05/20/25 13:39 clavulanic acid (From Allergy Unknown unknown Verified 05/20/25 13:39 Augmentin) codeine phosphate (From Allergy Swelling Verified 05/20/25 13:39 Tylenol-Codeine #3) shellfish derived Allergy Swelling Verified 05/20/25 13:39 venom-honey bee (bee venom Allergy Angioedema Verified 05/20/25 13:39 (honey bee)) Family History Mother Asthma Hypertension Breast cancer Diabetes Father Diabetes Hypertension Hyperlipidemia Colon cancer on fathers side of the family Grandmother Myocardial infarction Grandfather Cancer Lung Grandfather Cancer Throat Aunt Breast cancer Surgical History History of History of tubal ligation History of umbilical hernia repair History of cholecystectomy Social History Smoking Status: Former smoker how long ago did patient quit smokin years ago alcohol intake: never substance use type: does not use additional social history: denies vaping, denies marijuana use, denies edibles, uses ibuprofen and aspirin as needed ROS Constitutional Constitutional: Denies fatigue, fever(s), poor appetite, weight gain or weight loss Gastrointestinal Gastrointestinal: Denies belching, bloating, change in bowel habits, change in stool character, chewing difficulty, coffee ground emesis, constipation, cramping, diarrhea, dyspepsia, dysphagia, early satiety, excessive flatus, fecalincontinence, heartburn, hematemesis, hematochezia, hemorrhoids, loose stools, melena, nausea, odynophagia, rectal bleeding, tenesmus, vomiting or weight changes Vital Signs Vital Signs Vital Signs: 05/20/25 13:41 05/20/25 13:41 Temperature 98 F Temperature Source Temporal Pulse Rate 87 Respiratory Rate 16 Respiratory Pattern Normal Blood Pressure 138/96 H Blood Pressure Mean 110 Blood Pressure Source Monitor Blood Pressure Position Semi-Fowlers Blood Pressure Location Right Arm Pulse Ox 100 Oxygen Delivery Method Room Air Weight Weight: 194 lb 0.108 oz Body Mass Index (BMI) 33.3 Physical Exam Const alert, oriented x3, no apparent distress and healthy appearing General Appearance: cooperative GI normal to inspection, nondistended, normoactive bowel sounds, soft to palpation,non-tender and non-distended Percussion: normal to percussion Rectal Exam: deferred Assessment & Plan Assessment/Plan (1) Nausea and vomiting: (2) Abdominal cramping: PLAN: Assessment and Plan Assessment and Plan (1) Abdominal cramping: Status: Acute Plan: The patient will be prescribed dicyclomine 10 mg to be taken three times a day as needed for abdominal cramping and pain. Stool testing will be conducted to further evaluate gastrointestinal symptoms. A colonoscopy and endoscopy are planned to investigate the cause of abdominal pain and irregular bowel movements. (2) Nausea and vomiting: Status: Acute (3) Ovarian cyst: Status: Acute Plan: \The patient is advised to follow up with her PCP/packing inspector for further evaluation of the ovarian cyst noted on imaging. Orders: Orders Calprotectin, Stool Today R10.9 - Unspecified abdominal pain, R11.2 - Nausea with vomiting, unspecified Pancreatic Elastase, Fecal Today R10.9 - Unspecified abdominal pain, R11.2 - Nausea with vomiting, unspecified ENTERIC PATHOGEN PANEL STOOL Today K58.9 - Irritable bowel syndrome, unspecified, R10.9 - Unspecified abdominal pain, R11.2 - Nausea with vomiting, unspecified CRP Today R10.9 - Unspecified abdominal pain, R11.2 - Nausea with vomiting, unspecified CDIFF (PCR) Today R10.9 - Unspecified abdominal pain, R11.2 - Nausea with vomiting, unspecified Gastric Emptying Study - 4 HR Today R10.9 - Unspecified abdominal pain, R11.2 - Nausea with vomiting, unspecified Medications: New dicyclomine 10 mg PO TID PRN 60 caps 1RF abdominal pain and cramping peg 3350-sod sulf,[id number] 178.7-7.3-0.5 gram (Suflave) as directed for split dose bowel prep 2 mL 0RF Plan The patient is a 40-year-old female with a history of diabetes mellitus and anxiety disorder, presenting with abdominal pain and irregular bowel movements. The abdominal pain is characterized by cramping and is associated with alternating episodes of diarrhea and constipation, as well as changes in stool color and consistency. Recent imaging revealed mild splenomegaly and mildly prominent mesenteric lymph nodes, but no acute bowel obstruction or appendicitis. She does have a history of SBO November 2023. The patient's diabetes is poorly controlled, with a recent blood glucose level of 272 mg/dL, and she is not currently on insulin therapy. She was previously on Trulicity, which was discontinued due to concerns about its impact on bowel movements. The patient also reports a history of anxiety disorder, which she believes contributes to her symptoms, including episodes of lightheadedness and passing out, possibly related to fluctuating blood pressure. She is currently taking gabapentin for anxiety and as a nerve carlos. The patient has a history of cholecystectomy and reports that certain foods exacerbate her gastrointestinal symptoms. She also has a history of hemorrhoids and an anal fissure, which have contributed to occasional bleeding. Patient Instructions: - Discontinue ketorlac 10mg once daily Q6H for 5 days - Continue Pantoprazole 20mg QD - Colon & EGD - Suflave - Follow up with primary care physician for diabetes management and potential insulin therapy. - Monitor blood glucose levels regularly and make lifestyle changes to improve glycemic control. - Follow up with PCP/packing inspector for evaluation of the ovarian cyst. - Complete stool testing as instructed by the lab. 05/20/25 2144 <Electronically signed by Pipo Romero DO> Cosigner Signature (if applicable): CC: EZ Cespedes; Pipo Romero DO~ Signed [facility] Work Phone: Hospital Discharge instructions Additional Instructions You will be started on the blood pressure medication lisinopril you will take it once a day. Take it 1 to 2 hours prior to going to bed. If at all possible get a blood pressure machine for home or borrow someone's log your blood pressure twice daily. When you follow-up with a local prior care physician you can show them your blood pressure readings to decide if they need to adjust or alter your blood pressure medication. If your blood pressure is running too low below 120 consistently on the higher number which is your systolic blood pressure then your medication and the dose will need to be evaluated.[facility] Work Phone: Hospital Discharge instructions* Attachments The following attachments cannot be sent through Care Everywhere. * Urinary Tract Infection Discharge Instructions, Adult (Israeli) * Low blood sugar in people with diabetes (Israeli) documented in this [facility] Work Phone: Hospital Discharge instructions* Attachments The following attachments cannot be sent through Care Everywhere. * High Blood Sugar, Adult ED (Israeli) * Dental Pain ED (Israeli) documented in this [facility] Work Phone: [phone] Discharge instructions* Attachments The following attachments cannot be sent through Care Everywhere. * Dizziness, Adult ED (Israeli[facility]: [phone] Discharge instructions* Attachments The following attachments cannot be sent through Care Everywhere. * Chest Pain, Adult ED (Israeli) [facility] Phone: [phone] Discharge instructions* Attachments The following attachments cannot be sent through Care Everywhere. * Chest Pain Discharge Instructions (Israeli) documented in this [facility] Work Phone: Hospital Discharge instructions* Attachments The following attachments cannot be sent through Care Everywhere. * High blood pressure in adults (Israeli) * Shoulder Pain Discharge Instructions (Israeli) documented in this [facility] Work Phone: Hospital Discharge instructions* Attachments The following attachments cannot be sent through Care Everywhere. * Syncope (Fainting) Discharge Instructions (Israeli) documented in this [facility] Work Phone: Hospital Discharge instructions* Attachments The following attachments cannot be sent through Care Everywhere. * Dizziness, Nonvertigo, Discharge Instructions (Israeli) * Shortness of Breath, Adult ED (Israeli) * Sinus Tachycardia Discharge Instructions (Israeli) documented in this [facility] Work Phone: Hospital Discharge instructions* Attachments The following attachments cannot be sent through Care Everywhere. * Constipation in adults (Israeli) documented in this [facility] Work Phone: [phone] Discharge instructions* Attachments The following attachments cannot be sent through Care Everywhere. * Dizziness, Adult ED (Israeli) documented in this [facility] Work Phone: Hospital Discharge instructions* Attachments The following attachments cannot be sent through Care Everywhere. * Nausea and Vomiting, Adult ED (Israeli) [facility] Work Phone: Hospital Discharge instructions* Attachments The following attachments cannot be sent through Care Everywhere. * Stomach ache and stomach upset (Israeli) * Abdominal pain (Israeli) [facility] Work Phone: Progress note No data available for this section [facility] Reason for referral (narrative)* Diagnostic Procedure Only (Routine) - Authorized Specialty Diagnoses / Procedures Referred By Rasheed bryant Referred To Contact [facility] IMAG[facility] Diagnoses Nipple discharge Mass of right breast, unspecified quadrant Procedures US BREAST LTD RIGHT US BREAST UNI REAL TIME WITH IMAGE LIMITED Renee Maunel MD [address] [place] [address] [place] [address] Referral ID Status Reason Start Date Expiration Date Visits Requested Visits Authorized [id number] Authorized Auto-Generat ed Referral 02/07/2023 03/08/2024 1 1 * Diagnostic Procedure Only (Routine) - Authorized Specialty Diagnoses / Procedures Referred By Rasheed bryant Referred To Contact BR IMAGING Diagnoses Nipple discharge Mass of right breast, unspecified quadrant Procedures ARMANDO DIAGNOSTIC BILATERAL DIAGNOSTIC MAMMOGRAPHY COMPUTER-AIDED DETCJ BI Renee Manuel MD [address] [place] [address] Br Imaging [address] [address] Referral ID Status Reason Start Date Expiration Date Visits Requested Visits Authorized [id number] Authorized Auto-Generat ed Referral 02/07/2023 03/08/2024 1 1 [facility] Consultation (Routine) - Pending Review Specialty Diagnoses / Procedures Referred By Contac t Referred To Contact Family Medicine / Primary Care Procedures AK OFFICE/OUTPATIENT NEW HIGH MDM 60-74 MINUTES Elidia Hamilton, [address] [place] [address] Referral ID Status Reason Start Date Expiration Date Visits Requested Visits Authorized [id number] Pending Review Specialty Services Required 07/11/2023 01/07/2024 1 1 [facility] Work Phone: Reason for referral (narrative)* Consultation (Routine) - Authorized Specialty Diagnoses / Procedures Referred By Contac t Referred To Contact Family Medicine / Primary Care Wolf Marin DO [address] [facility] Department [place] [address] Referral ID Status Reason Start Date Expiration Date Visits Requested Visits Authorized [id number] Authorized Specialty Services Required 02/13/2024 02/12/2025 1 1 [facility] Work Phone: Relquf for referral (narrative)* Consultation (Routine) - Authorized Specialty Diagnoses / Procedures Referred By Contac t Referred To Contact Orthopaedic Surgery / Orthopedic Surgery Diagnoses Rotator cuff tendonitis, right Procedures Follow Up In Orthopaedic Surgery Augusta Chávez, PROSTHETICS LAB TECHNICIAN-PUBLIC SAFETY TELECOMMUNICATOR [address] [facility], [place] [id number] Referral ID Status Reason Start Date Expiration Date V isits Requested Visits Authorized [id number] Authorized 07/16/2024 07/16/2025 1 1 [facility] Work Phone: Redgrb for referral (narrative)* Consultation (Routine) - Authorized Specialty Diagnoses / Procedures Referred By Contac t Referred To Contact Cardiology Diagnoses Chest pain, unspecified type Wolf Marin DO [address] [facility] Department [place] [address] Referral ID Status Reason Start Date Expiration Date Visits Requested Visits Authorized [id number] Authorized Specialty Services Required 04/06/2024 04/06/2025 1 1 * Consultation (Routine) - Authorized Specialty Diagnoses / Procedures Referred By Contac t Referred To Contact Family Medicine / Primary Care Diagnoses Chest pain, unspecified type Wolf Marin DO [address] [facility] Department [place] [address] Referral ID Status Reason Start Date Expiration Date Visits Requested Visits Authorized [id number] Authorized Specialty Services Required 04/06/2024 04/06/2025 1 1 [facility] Work Phone: Rexkbl for referral (narrative)No reason for referral [facility] Work Phone: Reason for visit Narrative* Cardiac Stress Testing (Routine) - Pending Review Specialty Diagnoses / Procedures Referred By Contac t Referred To Contact Cardiology Diagnoses Tachycardia Hypertension associated with type 2 diabetes mellitus Procedures Holter or Event Sociology Research Assistant Holter or Event Sociology Research Assistant Petros Cespedes, PROSTHETICS LAB TECHNICIAN-PUBLIC SAFETY TELECOMMUNICATOR [address] [facility] [place] [address] Phone: tel: fax: Referral ID Status Reason Start Date Expiration Date V isits Requested Visits Authorized [id number] Pending Review 01/14/2025 01/14/2026 1 1 [facility] Work Phone: Reomce for visit Narrative* Cardiac Stress Testing (Routine) - Authorized Specialty Diagnoses / Procedures Referred By Contac t Referred To Contact Cardiology Diagnoses Atypical chest pain Procedures Stress Test AK CV STRS TST XERS&/OR RX CONT ECG TRCG ONLY Clary Smith, PROSTHETICS LAB TECHNICIAN-PUBLIC SAFETY TELECOMMUNICATOR, DNP [address] [facility], [facility] [address] [place] [address] Phone: tel: fax: Referral ID Status Reason Start Date Expiration Date V isits Requested Visits Authorized [id number] Authorized 02/24/2025 02/24/2026 1 1 [facility] Work Phone: reason for visit Narrative* CV Imaging (Routine) - Authorized Specialty Diagnoses / Procedures Referred By Contac t Referred To Contact Cardiology Diagnoses Abnormal electrocardiogram (ECG) (EKG) Atypical chest pain Procedures Transthoracic echo (TTE) complete AK ECHO TTHRC R-T 2D W/WOM-MODE COMPL SPEC&COLR D Clary Smith, PROSTHETICS LAB TECHNICIAN-PUBLIC SAFETY TELECOMMUNICATOR, DNP [address] [place], [facility] [address] [place] [id number] Phone: tel: fax: Referral ID Status Reason Start Date Expiration Date Visits Requested Visits Authorized [id number] Authorized Perform Procedure 02/16/2025 02/16/2026 1 1 [facility] Work Phone: Renfam for visit Narrative* Diagnostic Procedure Only (Routine) - Closed Specialty Diagnoses / Procedures Referred By Contac t Referred To Contact [facility] Diagnoses Ovarian cyst, left Pelvic pain in female Procedures PELVIC US WHI US PELVIC NONOBSTETRIC REAL-TIME IMAGE COMPLETE Renee Manuel MD [address] [place] [address] Phone: tel: fax: [facility] [address] [place] [address] Referral ID Status Reason Start Date Expiration Date V isits Requested Visits Authorized [id number] Closed Auto-Generate d Referral 04/22/2025 10/07/2025 1 1 [facility] Family History Mother Name Dates Details Family history of diabetes m ellitus(V18.0, Z83.3) Status:Active Father Name Dates Details Family history of diabetes m ellitus(V18.0, Z83.3) Status:Active Relationship Condition Age at Onset Recorded Date/T adeline mother Asthma Unknown Hypertension Unknown Malignant neoplasm of breast Unknown Diabetes mellitus Unknown father Diabetes mellitus Unknown Hyperlipidemia Unknown grandmother Myocardial infarction Unknown grandfather Malignant neoplasm Unknown aunt Malignant neoplasm of breast Unknown Relationship Condition Age at Onset Recorded Date/T adeline mother Asthma Unknown Hypertension Unknown Malignant neoplasm of breast Unknown Diabetes mellitus Unknown father Diabetes mellitus Unknown Hyperlipidemia Unknown Malignant neoplasm of colon Unknown grandmother Myocardial infarction Unknown grandfather Malignant neoplasm Unknown aunt Malignant neoplasm of breast Unknown Summary Purpose Advance Directives Documents on File Type Date Recorded Patient Measurer Machine Expl anation Advance Directive(s) Advance Directive(s) 08/05/2021 10:27 AM Advance Directive(s) 10/15/2020 9:11 AM Advance Directive(s) 09/27/2020 10:16 AM Advance Directive(s) 09/14/2020 7:56 PM Advance Directive Response Recorded Date/ Time Advance Directives No September 12:08am Living Will No September 16 11:46pm Power of Pharmaceutical Sales Representative No September 16, 2021 11:46pm Advance Directive Response Recorded Date/ Time Advance Directives No September 1:08am Living Will No September 17 12:46am Power of Pharmaceutical Sales Representative No September 17, 2021 12:46am Advance Directive Response Recorded Date/ Time Advance Directives No September 1:08am Living Will No December 26, 2022 4:17pm Power of Pharmaceutical Sales Representative No December 26 4:17pm Advance Directive Response Recorded Date/ Time Advance Directives No September 12:08am Living Will No November 07 6:38pm Power of Pharmaceutical Sales Representative No November 07, 2023 6:38pm Latest Code Status on File Code Status Date Activated Date Inactivated Comments Full Code 12/06/2023 5:59 AM Question Answer Comments Plan of Care: Code Status Discussion Completed Decision Maker: Patient Latest Code Status on File Code Status Date Activated Date Inactivated Comments Full Code 12/06/2023 5:59 AM Question Answer Comments Plan of Care: Code Status Discussion Completed Decision Maker: Patient Date Activated Date Inactivated Comments 12/06/2023 5:59 AM Question Answer Comments Plan of Care: Code Status Discussion Completed Decision Maker: Patient Date Activated Date Inactivated Comments 12/06/2023 5:59 AM Question Answer Comments Plan of Care: Code Status Discussion Completed Decision Maker: Patient Advance Directive Response Recorded Date/ Time Advance Directives No September 1:08am Advance Directive Response Recorded Date/ Time Do you have a Healthcare Power of Pharmaceutical Sales Representative? No May 19, 2025 10:06am Advance Directives No September 1:08am Reason for Referral Specialty Diagnoses / Procedures Referred By Contac t Referred To Contact ADULT PSYCHIATRY Diagnoses Post-traumatic stress disorder, acute Adjustment disorder with depressed mood Procedures CONSULT TO INTENSIVE OUTPATIENT PROGRAM (IOP) OFFICE/OUTPATIENT [facility] 60 MINUTES Jeanette Miller APRN.PUBLIC SAFETY TELECOMMUNICATOR [address] [place] [address] Ps Adult [facility] [address] [place] [address] Referral ID Status Reason Start Date Expiration Date Visits Requested Visits Authorized [id number] Authorized PCP Requested Referral 04/22/2024 04/22/2025 1 1 Specialty Diagnoses / Procedures Referred By Contac t Referred To Contact Neurology Diagnoses Coarse tremors Procedures CONSULT TO NEUROLOGY OFFICE/OUTPATIENT [facility] 60-74 MINUTES Nilda Lauren MD [address] [place] [address] Referral ID Status Reason Start Date Expiration Date Visits Requested Visits Authorized [id number] Authorized PCP Requested Referral 05/30/2023 05/29/2024 1 1 Specialty Diagnoses / Procedures Referred By Contac t Referred To Contact Nilda Lauren MD [address] [place] [address] Referral ID Status Reason Start Date Expiration Date V isits Requested Visits Authorized [id number] Pending Review 1 1 Referral ID Status Reason Start Date Expiration Date V isits Requested Visits Authorized [id number] Pending Review 1 1 * hyperglycemia, medication mismanagementhyperglycemia, medication mismanagement Specialty Diagnoses / Procedures Referred By Contac t Referred To Contact Diagnoses Type 2 diabetes mellitus without complication, with long-term current use of insulin ([facility]) Brayden Kumar APRN.PUBLIC SAFETY TELECOMMUNICATOR [address] [place] [address] Referral ID Status Reason Start Date Expiration Date Visits Re quested Visits Authorized [id number] Closed 1 1 * orthostatic hypotensionorthostatic hypotension Specialty Diagnoses / Procedures Referred By Rasheed bryant Referred To Contact Psychology Diagnoses Psychogenic nonepileptic seizure Procedures CONSULT TO PSYCHOLOGY OFFICE/OUTPATIENT [facility] 60-74 MINUTES Brittany Sánchez, PhD [address] [place] [address] Referral ID Status Reason Start Date Expiration Date Visits Requested Visits Authorized [id number] Pending Review PCP Requested Referral 2 08/23/2023 1 1 Chief Complaint and Reason for Visit Chief Complaint BRADYCARDIA Chief Complaint BRADYCARDIA DIZZINESS, TACHYCARDIA, HYPOTENSION DIZZINESS, TACHYCARDIA, HYPOTENSION 9 m fu (pcp thinks POTS) Reason for Visit SAHU (dyspnea on exer tion) Hypotension Tachycardia History of syncope Chief Complaint BRADYCARDIA DIZZINESS, TACHYCARDIA, HYPOTENSION DIZZINESS, TACHYCARDIA, HYPOTENSION 9 m fu (pcp thinks POTS) DYSPNEA SEIZURE Reason for Visit SAHU (dyspnea on exer tion) Hypotension Tachycardia History of syncope Chief Complaint 3 M FU Reason for Visit Chest pain Hypotension Tachycardia Tremor History of syncope Chief Complaint hypertension Chief Complaint Admit Date ABDOMINAL CRAMPING DIARRHEA April 13 1:33pm Reason for Visit Admit Date Abdominal cramping April 13, 2025 1:33p m Nausea and vomiting April 13, 2025 1:33p m Chief Complaint Admit Date ABDOMINAL CRAMPING DIARRHEA April 13 1:33pm EORDER April 13, 2025 2:35p m E ORDERS April 16, 2025 10:3 4am Reason for Visit Admit Date Abdominal cramping April 13, 2025 1:33p m Nausea and vomiting April 13, 2025 1:33p m Ovarian cyst April 13, 2025 1:33p m Chief Complaint Admit Date ABDOMINAL CRAMPING DIARRHEA April 13 1:33pm EORDER April 13, 2025 2:35p m E ORDERS April 16, 2025 10:3 4am Nausea with vomiting, unspecified April 082024 8:09am Reason for Visit Admit Date Abdominal cramping April 13, 2025 1:33p m Nausea and vomiting April 13, 2025 1:33p m Ovarian cyst April 13, 2025 1:33p m Abdominal cramping May 20, 2025 1: 20pm Nausea and vomiting May 20, 2025 1: 20pm Additional Source Comments INFORMATION SOURCE (unrecogn ized section and content) DATE CREATED AUTHOR 02/22/2020 [employer] DATE CREATED AUTHOR AUTHOR'S ORGANIZ ATION 02/17/2022 [facility] DATE CREATED AUTHOR AUTHOR'S ORGANIZ ATION 02/26/2022 [facility] ([place]) DATE CREATED AUTHOR AUTHOR'S ORGANIZ ATION 12/12/2022 [facility] DATE CREATED AUTHOR AUTHOR'S ORGANIZ ATION 06/01/2023 [facility] DATE CREATED AUTHOR AUTHOR'S ORGANIZ ATION 11/06/2024 [facility] DATE CREATED AUTHOR AUTHOR'S ORGANIZ ATION 12/18/2024 [facility] DATE CREATED AUTHOR AUTHOR'S ORGANIZ ATION 02/11/2025 [facility] DATE CREATED AUTHOR AUTHOR'S ORGANIZ ATION 04/02/2025 [facility] DATE CREATED AUTHOR AUTHOR'S ORGANIZ ATION 04/22/2025 [facility] DATE CREATED AUTHOR AUTHOR'S ORGANIZ ATION 04/27/2025 [facility] DATE CREATED AUTHOR AUTHOR'S ORGANIZ ATION 05/01/2025 [facility] DATE CREATED AUTHOR AUTHOR'S ORGANIZ ATION 05/16/2025 [facility] DATE CREATED AUTHOR AUTHOR'S ORGANIZ ATION 05/20/2025 [facility] Care Team (unrecognized sect ion and content) Inspector Eyeglass Frames Relationship Specialty Start Date End Date Sharon Foster MD [address] [place], [place] [address] PCP - General 11/29/09 Inspector Eyeglass Frames Relationship Specialty Start Date End Date Sharon Foster MD [address] [place], [place] [id number] PCP - General 11/29/09 Inspector Eyeglass Frames Relationship Specialty Start Date End Date Sharon Foster MD [address] [place], [place] [id number] PCP - General 11/29/09 Inspector Eyeglass Frames Relationship Specialty Start Date End Date Sharon Foster MD [address] [place] [address], [place] [address] PCP - General 11/29/09 Inspector Eyeglass Frames Relationship Specialty Start Date End Date Sharon Foster MD [address] [place] [address], [place] [address] PCP - General 11/29/09 Inspector Eyeglass Frames Relationship Specialty Start Date End Date Sharon Foster MD [address] [place] [address], [place] [address] PCP - General 11/29/09 Inspector Eyeglass Frames Relationship Specialty Start Date End Date Sharon Foster MD [address] [place] [address], [place] [address] PCP - General 11/29/09 Inspector Eyeglass Frames Relationship Specialty Start Date End Date Sharon Foster MD [address] [place] [address], [place] [address] PCP - General 11/29/09 Inspector Eyeglass Frames Relationship Specialty Start Date End Date Sharon Foster MD [address] [place] [address], [place] [address] PCP - General 11/29/09 Inspector Eyeglass Frames Relationship Specialty Start Date End Date Sharon Foster MD [address] [place] [address], [place] [address] PCP - General 11/29/09 Inspector Eyeglass Frames Relationship Specialty Start Date End Date Sharon Foster MD [address] [place] [address], [place] [address] PCP - General 11/29/09 Inspector Eyeglass Frames Relationship Specialty Start Date End Date Sharon Foster MD [address] [place] [address], [place] [address] PCP - General 11/29/09 Inspector Eyeglass Frames Relationship Specialty Start Date End Date Sharon Foster MD [address] [facility] [place] [address] PCP - General 11/29/09 Lorrie Altamirano RN Primary Care Leather Dresser 08/24/22 09/22/22 Inspector Eyeglass Frames Relationship Specialty Start Date End Date Sharon Foster MD [address] [facility] [place] [address] PCP - General 11/29/09 Lorrie Altamirano RN Primary Care Leather Dresser 08/24/22 09/22/22 Inspector Eyeglass Frames Relationship Specialty Start Date End Date Sharon Foster MD [address] [place] [address] PCP - General 11/29/09 Lorrie Altamirano RN Primary Care Leather Dresser 08/24/22 09/22/22 Inspector Eyeglass Frames Relationship Specialty Start Date End Date Sharon Foster MD [address] [place] [address] PCP - General 11/29/09 Lorrie Altamirano RN Primary Care Leather Dresser 08/24/22 09/22/22 Inspector Eyeglass Frames Relationship Specialty Start Date End Date Sharon Foster MD [address] [place] [address] PCP - General 11/29/09 Lorrie Altamirano RN Primary Care Leather Dresser 08/24/22 09/22/22 Inspector Eyeglass Frames Relationship Specialty Start Date End Date Sharon Foster MD [address] [place] [address] PCP - General 11/29/09 Lorrie Altamirano RN Primary Care Leather Dresser 08/24/22 09/22/22 Inspector Eyeglass Frames Relationship Specialty Start Date End Date Sharon Foster MD [address] [facility] [place] [address] PCP - General 11/29/09 Inspector Eyeglass Frames Relationship Specialty Start Date End Date Sharon Foster MD [address] [facility] [place] [address] PCP - General 11/29/09 Inspector Eyeglass Frames Relationship Specialty Start Date End Date Sharon Foster MD [facility] [place] [address] PCP - General 11/29/09 Inspector Eyeglass Frames Relationship Specialty Start Date End Date Sharon Foster MD [address] [place] [address], [place] [address] PCP - General 11/29/09 Inspector Eyeglass Frames Relationship Specialty Start Date End Date Sharon Foster MD [address] [place] [address], [place] [address] PCP - General 11/29/09 Inspector Eyeglass Frames Relationship Specialty Start Date End Date Sharon Foster MD [address] [place] [address], [place] [address] PCP - General 11/29/09 Inspector Eyeglass Frames Relationship Specialty Start Date End Date Sharon Foster MD [address] [place] [address], [place] [address] PCP - General 11/29/09 Team Status: Active Member Role Status Dates Dr. Kurt Foster MD Family Provider Active Dr. Kurt Foster MD Primary Care Provider Active Team Status: Inactive Member Role Status Dates Dr. Kurt Foster MD Primary Care Provider Active Abby SHI, PA Attending Provider Active Inspector Eyeglass Frames Relationship Specialty Start Date End Date Sharon Foster MD [address] [place] [address], [place] [address] PCP - General 11/29/09 Inspector Eyeglass Frames Relationship Specialty Start Date End Date Sharon Foster MD [address] [facility] [place] [address] PCP - General 11/29/09 Inspector Eyeglass Frames Relationship Specialty Start Date End Date Sharon Foster MD [address] [facility] [place] [address] PCP - General 11/29/09 Inspector Eyeglass Frames Relationship Specialty Start Date End Date Sharon Foster MD [address] [facility] [place] [address] PCP - General 11/29/09 Inspector Eyeglass Frames Relationship Specialty Start Date End Date Sharon Foster MD [address] [facility] [place] [address] PCP - General 11/29/09 Inspector Eyeglass Frames Relationship Specialty Start Date End Date Sharon Foster MD [address] [facility] [place] [address] PCP - General 11/29/09 Team Status: Active Member Role Status Dates Dr. Kurt Foster MD Family Provider Active No Primary Care Physician Primary Care Provider Active Team Status: Inactive Member Role Status Dates Dr. Kurt Foster MD Referring Provider Active Inocencia Edwards LABORER HEADING, LABORER HEADING-C Attending Provider Active No Primary Care Physician Primary Care Provider Active Team Status: Active Member Role Status Dates YURIDIA Stewart Referring Provider, Other Provider Active No Primary Care Physician Primary Care Provider Active Dr. Preet Mckeon MD Attending Provider Active Team Status: Inactive Member Role Status Dates Abby SHI PA Attending Provider, Referr ing Provider Active No Primary Care Physician Primary Care Provider Active Team Status: Inactive Member Role Status Dates No Primary Care Physician Primary Care Provider Active Inocencia Edwards LABORER HEADING, LABORER HEADING-C Attending Provider, Referring P nadege Active Inspector Eyeglass Frames Relationship Specialty Start Date End Date Sharon Foster MD [address] [facility] [place], [place] [address] PCP - General 11/29/09 Team Status: Active Member Role Status Dates No Primary Care Physician Primary Care Provider Active Dr. Preet Mckeon MD Attending Provider Active Team Status: Active Member Role Status Dates No Primary Care Physician Primary Care Provider Active Inocencia Edwards LABORER HEADING, LABORER HEADING-C Attending Provider, Ivelisse light Active Team Status: Inactive Member Role Status Dates No Primary Care Physician Primary Care Provider Active Dr. Rachel Christiansen , DO Emergency Provider Active Inspector Eyeglass Frames Relationship Specialty Start Date End Date Sharon Foster MD [address] [place] [address] PCP - General 11/29/09 Inspector Eyeglass Frames Relationship Specialty Start Date End Date Sharon Foster MD [address] [place] [address] PCP - General 11/29/09 Inspector Eyeglass Frames Relationship Specialty Start Date End Date Sharon Foster MD [address] [place] [address] PCP - General 11/29/09 Inspector Eyeglass Frames Relationship Specialty Start Date End Date Sharon Foster MD [address] [place] [id number] PCP - General 11/29/09 Inspector Eyeglass Frames Relationship Specialty Start Date End Date Sharon Foster MD [address] [place] [address] PCP - General 11/29/09 Inspector Eyeglass Frames Relationship Specialty Start Date End Date Brayden Kumar, PROSTHETICS LAB TECHNICIAN.PUBLIC SAFETY TELECOMMUNICATOR [address] [place] [address] PCP - General Family Medicine 02/16/23 Inspector Eyeglass Frames Relationship Specialty Start Date End Date Brayden Kumar, PROSTHETICS LAB TECHNICIAN.PUBLIC SAFETY TELECOMMUNICATOR [address] [place] [address] PCP - General Family Medicine 02/16/23 Inspector Eyeglass Frames Relationship Specialty Start Date End Date Brayden Kumar APRN.PUBLIC SAFETY TELECOMMUNICATOR [address] [place] [address], [place] [address] PCP - General Family Medicine 02/16/23 Inspector Eyeglass Frames Relationship Specialty Start Date End Date Brayden Kumar APRN.PUBLIC SAFETY TELECOMMUNICATOR [address] [place] [address], [place] [address] PCP - General Family Medicine 02/16/23 Inspector Eyeglass Frames Relationship Specialty Start Date End Date Brayden Kumar APRN.PUBLIC SAFETY TELECOMMUNICATOR [address] [place] [address], [place] [address] PCP - General Family Medicine 02/16/23 Inspector Eyeglass Frames Relationship Specialty Start Date End Date Brayden Kumar APRN.PUBLIC SAFETY TELECOMMUNICATOR [address] [place] [address], [place] [address] PCP - General Family Medicine 02/16/23 Inspector Eyeglass Frames Relationship Specialty Start Date End Date Sharon Foster MD [address] [place] [address], [place] [address] PCP - General 11/29/09 02/15/23 Brayden Kumar APRN.PUBLIC SAFETY TELECOMMUNICATOR [address] [place] [address], [place] [address] PCP - General Family Medicine 02/16/23 Inspector Eyeglass Frames Relationship Specialty Start Date End Date Brayden Kumar APRN.PUBLIC SAFETY TELECOMMUNICATOR [address] [place] [address], [place] [address] PCP - General Family Medicine 02/16/23 Inspector Eyeglass Frames Relationship Specialty Start Date End Date Brayden Kumar APRN.PUBLIC SAFETY TELECOMMUNICATOR [address] [place] [address], [place] [address] PCP - General Family Medicine 02/16/23 Inspector Eyeglass Frames Relationship Specialty Start Date End Date Brayden Kumar APRN.PUBLIC SAFETY TELECOMMUNICATOR [address] [place] [id number] PCP - General Family Medicine 02/16/23 Team Status: Inactive Member Role Status Dates No Primary Care Physician Primary Care Provider, Refer ring Provider Active Inocencia Edwards LABORER HEADING, LABORER HEADING-C Attending Provider Active Inspector Eyeglass Frames Relationship Specialty Start Date End Date Brayden Kumar PROSTHETICS LAB TECHNICIAN.PUBLIC SAFETY TELECOMMUNICATOR [address] [place] [address] PCP - General Family Medicine 02/16/23 Inspector Eyeglass Frames Relationship Specialty Start Date End Date Brayden Kumar PROSTHETICS LAB TECHNICIAN.PUBLIC SAFETY TELECOMMUNICATOR [address] [place] [address] PCP - General Family Medicine 02/16/23 Inspector Eyeglass Frames Relationship Specialty Start Date End Date Brayden Kumar, PROSTHETICS LAB TECHNICIAN.PUBLIC SAFETY TELECOMMUNICATOR [address] [place] [address] PCP - General Family Medicine 02/16/23 Inspector Eyeglass Frames Relationship Specialty Start Date End Date Brayden Kumar, PROSTHETICS LAB TECHNICIAN.PUBLIC SAFETY TELECOMMUNICATOR [address] [place] [address] PCP - General Family Medicine 02/16/23 Inspector Eyeglass Frames Relationship Specialty Start Date End Date Brayden Kumar, PROSTHETICS LAB TECHNICIAN.PUBLIC SAFETY TELECOMMUNICATOR [address] [place] [address] PCP - General Family Medicine 02/16/23 Inspector Eyeglass Frames Relationship Specialty Start Date End Date Brayden Kumar, PROSTHETICS LAB TECHNICIAN.PUBLIC SAFETY TELECOMMUNICATOR [address] [place] [address] [phone] PCP - General Family Medicine 02/16/23 Team Status: Inactive Member Role Status Dates No Primary Care Physician Primary Care Provider Active Dr. Tavares Lee MD Emergency Provider Active Inspector Eyeglass Frames Relationship Specialty Start Date End Date Generic Provider, No Assigned MD Som [address] [place] [address] PCP - General 12/05/23 Inspector Eyeglass Frames Relationship Specialty Start Date End Date Generic Provider, No Assigned PcpMD [facility] [address] [place] [address] PCP - General Shoe Shanker 12/23/23 Inspector Eyeglass Frames Relationship Specialty Start Date End Date John Blakely MD [facility] [address] [place] [address] PCP - General Shoe Shanker 12/23/23 Inspector Eyeglass Frames Relationship Specialty Start Date End Date Generic Provider, No Assigned PcpMD PCP - General Shoe Shanker 12/23/23 Inspector Eyeglass Frames Relationship Specialty Start Date End Date Brayden Kumar APRN.PUBLIC SAFETY TELECOMMUNICATOR [address] [place] [address] PCP - General Family Medicine 02/16/23 Lorrie Altamirano, KALEN [address] [place] [address] Primary Care Leather Dresser 12/10/23 Inspector Eyeglass Frames Relationship Specialty Start Date End Date Brayden Kumar APRN.PUBLIC SAFETY TELECOMMUNICATOR [address] [place] [address] PCP - General Family Medicine 02/16/23 Lorrie Altamirano, KALEN [address] [place] [address] Primary Care Leather Dresser 12/10/23 Inspector Eyeglass Frames Relationship Specialty Start Date End Date Brayden Kumar APRN.PUBLIC SAFETY TELECOMMUNICATOR [address] [place] [address] PCP - General Family Medicine 02/16/23 Lorrie Altamirano, RN [address] [place] [address] Primary Care Leather Dresser 12/10/23 Inspector Eyeglass Frames Relationship Specialty Start Date End Date Generic Provider, No [place] [address] PCP - General Shoe Shanker 01/10/24 Inspector Eyeglass Frames Relationship Specialty Start Date End Date Brayden Kumar APRN.PUBLIC SAFETY TELECOMMUNICATOR [address] [place] [address] [phone] PCP - General Family Medicine 02/16/23 Inspector Eyeglass Frames Relationship Specialty Start Date End Date Brayden Kumar PROSTHETICS LAB TECHNICIAN.PUBLIC SAFETY TELECOMMUNICATOR [address] [place] [address] [phone] PCP - General Family Medicine 02/16/23 Inspector Eyeglass Frames Relationship Specialty Start Date End Date Generic Provider, No Assigned Pcp, [place] [address] PCP - General Shoe Shanker 01/10/24 Inspector Eyeglass Frames Relationship Specialty Start Date End Date Brayden Kumar PROSTHETICS LAB TECHNICIAN.PUBLIC SAFETY TELECOMMUNICATOR [address] [place] [address] PCP - General Family Medicine 02/16/23 Inspector Eyeglass Frames Relationship Specialty Start Date End Date Brayden Kumar, PROSTHETICS LAB TECHNICIAN.PUBLIC SAFETY TELECOMMUNICATOR [address] [place] [address] [phone] PCP - General Family Medicine 02/16/23 Inspector Eyeglass Frames Relationship Specialty Start Date End Date Brayden Kumar, PROSTHETICS LAB TECHNICIAN.PUBLIC SAFETY TELECOMMUNICATOR [address] [place] [address] [phone] PCP - General Family Medicine 02/16/23 Inspector Eyeglass Frames Relationship Specialty Start Date End Date Brayden Kumar, PROSTHETICS LAB TECHNICIAN.PUBLIC SAFETY TELECOMMUNICATOR [address] [place] [address] [phone] PCP - General Family Medicine 02/16/23 Inspector Eyeglass Frames Relationship Specialty Start Date End Date Brayden Kumar, PROSTHETICS LAB TECHNICIAN.PUBLIC SAFETY TELECOMMUNICATOR [address] [place] [address] [phone] PCP - General Family Medicine 02/16/23 Inspector Eyeglass Frames Relationship Specialty Start Date End Date Petros Cespedes, PROSTHETICS LAB TECHNICIAN-PUBLIC SAFETY TELECOMMUNICATOR [address] [facility] [place] [address] PCP - General Internal Medicine 02/20/24 Inspector Eyeglass Frames Relationship Specialty Start Date End Date Petros Cespedes, PROSTHETICS LAB TECHNICIAN-PUBLIC SAFETY TELECOMMUNICATOR [address] [place] [address] PCP - General Internal Medicine 02/20/24 Inspector Eyeglass Frames Relationship Specialty Start Date End Date Petros Cespedes, PROSTHETICS LAB TECHNICIAN-PUBLIC SAFETY TELECOMMUNICATOR [address] [facility] [place] [address] PCP - General Internal Medicine 02/20/24 Inspector Eyeglass Frames Relationship Specialty Start Date End Date Petros Cespedes, PROSTHETICS LAB TECHNICIAN-PUBLIC SAFETY TELECOMMUNICATOR [address] [place] [address] PCP - General Internal Medicine 02/20/24 Inspector Eyeglass Frames Relationship Specialty Start Date End Date Sharon Foster MD [address] [place] [address] PCP - General 11/29/09 02/15/23 Inspector Eyeglass Frames Relationship Specialty Start Date End Date Petros Cespedes, PROSTHETICS LAB TECHNICIAN-PUBLIC SAFETY TELECOMMUNICATOR [address] [facility] [place] [address] PCP - General Internal Medicine 02/20/24 Inspector Eyeglass Frames Relationship Specialty Start Date End Date Petros Cespedes, PROSTHETICS LAB TECHNICIAN-PUBLIC SAFETY TELECOMMUNICATOR [address] [facility] [place] [address] PCP - General Internal Medicine 02/20/24 Inspector Eyeglass Frames Relationship Specialty Start Date End Date Petros Cespedes, PROSTHETICS LAB TECHNICIAN-PUBLIC SAFETY TELECOMMUNICATOR [address] [place] [phone] PCP - General Internal Medicine 02/20/24 Inspector Eyeglass Frames Relationship Specialty Start Date End Date Petros Cespedes, PROSTHETICS LAB TECHNICIAN-PUBLIC SAFETY TELECOMMUNICATOR [address] [place] [phone] PCP - General Internal Medicine 02/20/24 Inspector Eyeglass Frames Relationship Specialty Start Date End Date Petrso Cespedes PROSTHETICS LAB TECHNICIAN-PUBLIC SAFETY TELECOMMUNICATOR [address] [place] [phone] PCP - General Internal Medicine 02/20/24 Inspector Eyeglass Frames Relationship Specialty Start Date End Date Brayden Kumar APRN.PUBLIC SAFETY TELECOMMUNICATOR [address] [place] [address] PCP - General Family Medicine 02/16/23 Inspector Eyeglass Frames Relationship Specialty Start Date End Date Brayden Kumar APRN.CNP [address] [place] [address] PCP - General Family Medicine 02/16/23 Inspector Eyeglass Frames Relationship Specialty Start Date End Date Petros Cespedes, PROSTHETICS LAB TECHNICIAN-PUBLIC SAFETY TELECOMMUNICATOR [address] [place] [phone] PCP - General Internal Medicine 02/20/24 Inspector Eyeglass Frames Relationship Specialty Start Date End Date Brayden Kumar APRN.PUBLIC SAFETY TELECOMMUNICATOR [address] [place] [address] PCP - General Family Medicine 02/16/23 Inspector Eyeglass Frames Relationship Specialty Start Date End Date Petros Cespedes, PROSTHETICS LAB TECHNICIAN-PUBLIC SAFETY TELECOMMUNICATOR [address] [place] [address] PCP - General Internal Medicine 02/20/24 Inspector Eyeglass Frames Relationship Specialty Start Date End Date Petros Cespedes, PROSTHETICS LAB TECHNICIAN-PUBLIC SAFETY TELECOMMUNICATOR [address] [place] [address] PCP - General Internal Medicine 02/20/24 Inspector Eyeglass Frames Relationship Specialty Start Date End Date Petros Cespedes, PROSTHETICS LAB TECHNICIAN-PUBLIC SAFETY TELECOMMUNICATOR [address] [place] [address] PCP - General Internal Medicine 02/20/24 Inspector Eyeglass Frames Relationship Specialty Start Date End Date Petros Cespedes, PROSTHETICS LAB TECHNICIAN-PUBLIC SAFETY TELECOMMUNICATOR [address] [place] [address] PCP - General Internal Medicine 02/20/24 Inspector Eyeglass Frames Relationship Specialty Start Date End Date Petros Cespedes, PROSTHETICS LAB TECHNICIAN-PUBLIC SAFETY TELECOMMUNICATOR [address] [place] [address] PCP - General Internal Medicine 02/20/24 Inspector Eyeglass Frames Relationship Specialty Start Date End Date Petros Cespedes, PROSTHETICS LAB TECHNICIAN-PUBLIC SAFETY TELECOMMUNICATOR [address] [place] [address] PCP - General Internal Medicine 02/20/24 Inspector Eyeglass Frames Relationship Specialty Start Date End Date Petros Cespedes, PROSTHETICS LAB TECHNICIAN-PUBLIC SAFETY TELECOMMUNICATOR [address] [place] [address] PCP - General Internal Medicine 02/20/24 Inspector Eyeglass Frames Relationship Specialty Start Date End Date Petros Cespedes, PROSTHETICS LAB TECHNICIAN-PUBLIC SAFETY TELECOMMUNICATOR [address] [place] [address] PCP - General Internal Medicine 02/20/24 Inspector Eyeglass Frames Relationship Specialty Start Date End Date Petros Cespedes, PROSTHETICS LAB TECHNICIAN-PUBLIC SAFETY TELECOMMUNICATOR [address] [facility] [place] [address] PCP - General Internal Medicine 02/20/24 Inspector Eyeglass Frames Relationship Specialty Start Date End Date Brayden Kumar PROSTHETICS LAB TECHNICIAN.PUBLIC SAFETY TELECOMMUNICATOR [address] [place] [address] PCP - General Family Medicine 02/16/23 Inspector Eyeglass Frames Relationship Specialty Start Date End Date Brayden Kumar, PROSTHETICS LAB TECHNICIAN.PUBLIC SAFETY TELECOMMUNICATOR [address] [place] [id number] PCP - General Family Medicine 02/16/23 Inspector Eyeglass Frames Relationship Specialty Start Date End Date Petros Cespedes, PROSTHETICS LAB TECHNICIAN-PUBLIC SAFETY TELECOMMUNICATOR [address] [place] [address] PCP - General Internal Medicine 02/20/24 Inspector Eyeglass Frames Relationship Specialty Start Date End Date Petros Cespedes, PROSTHETICS LAB TECHNICIAN-PUBLIC SAFETY TELECOMMUNICATOR [address] [facility] [place] [address] PCP - General Internal Medicine 02/20/24 Inspector Eyeglass Frames Relationship Specialty Start Date End Date Petros Cespedes, PROSTHETICS LAB TECHNICIAN-PUBLIC SAFETY TELECOMMUNICATOR [address] [place] [address] PCP - General Family Medicine 12/31/24 Inspector Eyeglass Frames Relationship Specialty Start Date End Date Petros Cespedes, PROSTHETICS LAB TECHNICIAN-PUBLIC SAFETY TELECOMMUNICATOR [address] [place] [address] PCP - General Family Medicine 12/31/24 Inspector Eyeglass Frames Relationship Specialty Start Date End Date Petros Cespedes, PROSTHETICS LAB TECHNICIAN-PUBLIC SAFETY TELECOMMUNICATOR [address] [facility] [place] [address] PCP - General Family Medicine 12/31/24 Inspector Eyeglass Frames Relationship Specialty Start Date End Date Brayden Kumar PROSTHETICS LAB TECHNICIAN.PUBLIC SAFETY TELECOMMUNICATOR [address] [place] [id number] PCP - General Family Medicine 02/16/23 Inspector Eyeglass Frames Relationship Specialty Start Date End Date Petros Cespedes, PROSTHETICS LAB TECHNICIAN-PUBLIC SAFETY TELECOMMUNICATOR [address] [facility] [place] [address] PCP - General Family Medicine 12/31/24 Inspector Eyeglass Frames Relationship Specialty Start Date End Date Petros Cespedes, PROSTHETICS LAB TECHNICIAN-PUBLIC SAFETY TELECOMMUNICATOR [address] [place] [address] PCP - General Family Medicine 12/31/24 Inspector Eyeglass Frames Relationship Specialty Start Date End Date Petros Cespedes, PROSTHETICS LAB TECHNICIAN-PUBLIC SAFETY TELECOMMUNICATOR [address] [place] [address] PCP - General Family Medicine 12/31/24 Inspector Eyeglass Frames Relationship Specialty Start Date End Date Petros Cespedes, PROSTHETICS LAB TECHNICIAN-PUBLIC SAFETY TELECOMMUNICATOR [address] [place] [address] PCP - General Family Medicine 12/31/24 Inspector Eyeglass Frames Relationship Specialty Start Date End Date Petros Cespedes, PROSTHETICS LAB TECHNICIAN-PUBLIC SAFETY TELECOMMUNICATOR [address] [place] [address] PCP - General Family Medicine 12/31/24 Inspector Eyeglass Frames Relationship Specialty Start Date End Date Petros Cespedes, PROSTHETICS LAB TECHNICIAN-PUBLIC SAFETY TELECOMMUNICATOR [address] [place] [address] PCP - General Family Medicine 12/31/24 Inspector Eyeglass Frames Relationship Specialty Start Date End Date Petros Cespedes, PROSTHETICS LAB TECHNICIAN-PUBLIC SAFETY TELECOMMUNICATOR [address] [place] [address] PCP - General Family Medicine 12/31/24 Inspector Eyeglass Frames Relationship Specialty Start Date End Date Petros Cespedes, PROSTHETICS LAB TECHNICIAN-PUBLIC SAFETY TELECOMMUNICATOR [address] [place] [address] PCP - General [facility] Medicine 12/31/24 Team Status: Active Member Role/Relationship Status Dates Dr. Kurt Foster MD Family Provider Active Dr. Petros Jernigan MD Primary Care Provider Active Team Status: Inactive Member Role/Relationship Status Dates Dr. Petros Jernigan MD Primary Care Provider Active Start: April 13, 2025 End: April 13, 2025 Dr. Petros Jernigan MD Referring Provider Active Start: April 13, 2025 End: April 13, 2025 EZ Curiel Attending Provider Active Start: April 13, 2025 End: April 13, 2025 Team Status: Active Member Role/Relationship Status Dates JUANA FuentesC Primary Care Provider Active Team Status: Inactive Member Role/Relationship Status Dates Dr. Petros Jernigan MD Primary Care Provider Active Start: April 13, 2025 End: April 13, 2025 EZ Curiel Attending Provider Active Start: April 13, 2025 End: April 13, 2025 Team Status: Active Member Role/Relationship Status Dates Petros Cespedes NP-C Primary Care Provider Active Start: April 16, 2025 EZ Curiel Attending Provider Active Start: April 16, 2025 EZ Curiel Referring Provider Active Start: April 16, 2025 Team Status: Inactive Member Role/Relationship Status Dates JUANA FuentesC Primary Care Provider Active Start: April 16, 2025 End: April 16, 2025 EZ Curiel Attending Provider Active Start: April 16, 2025 End: April 16, 2025 EZ Curiel Referring Provider Active Start: April 16, 2025 End: April 16, 2025 Inspector Eyeglass Frames Relationship Specialty Start Date End Date Petros Cespedes, PROSTHETICS LAB TECHNICIAN-PUBLIC SAFETY TELECOMMUNICATOR [address] [place] [address] PCP - General Family Medicine 12/31/24 Team Status: Inactive Member Role/Relationship Status Dates EZ Curiel Attending Provider Active Start: April 30, 2025 End: April 30, 2025 EZ Curiel Referring Provider Active Start: April 30, 2025 End: April 30, 2025 Petros Cespedes NP-C Primary Care Provider Active Start: April 30, 2025 End: April 30, 2025 Team Status: Inactive Member Role/Relationship Status Dates Petros Cespedes NP-C Primary Care Provider Active Start: May 20, 2025 End: May 20, 2025 JUANA FuentesC Referring Provider Active St art: May 20, 2025 End: May 20, 2025 Dr. Pipo Romero DO Attending Provider Active Start: May 20, 2025 End: May 20, 2025 Team Status: Active Member Role/Relationship Status Dates Petros Cespedes NP-C Primary Care Provider Active Start: May 20, 2025 Petros Cespedes NP-C Referring Provider Active St art: May 20, 2025 Dr. Pipo Romero DO Attending Provider Active Start: May 20, 2025 Dr. Pipo Romero DO Other Provider Active St art: May 20, 2025 Source Comments (unrecognize d section and content) In the event this informatio n is protected by the Federal Confidentiality of Alcohol and Drug Abuse Patient Records regulations: The Federal rules restrict any use of the information to criminally investigate or prosecute any alcohol or drug abuse patient.[facility] Hospital[facility] the event this information is protected by the Federal Confidentiality of Alcohol and Drug Abuse Patient Records regulations: The Federal rules restrict any use of the information to criminally investigate or prosecute any alcohol or drug abuse patient.[facility] HospitalIn the event this information is protected by the Federal Confidentiality of Alcohol and Drug Abuse Patient Records regulations: The Federal rules restrict any use of the information to criminally investigate or prosecute any alcohol or drug abuse patient.[facility] HospitalIn the event this information is protected by the Federal Confidentiality of Alcohol and Drug Abuse Patient Records regulations: The Federal rules restrict any use of the information to criminally investigate or prosecute any alcohol or drug abuse patient.[facility] HospitalIn the event this information is protected by the Federal Confidentiality of Alcohol and Drug Abuse Patient Records regulations: The Federal rules restrict any use of the information to criminally investigate or prosecute any alcohol or drug abuse patient.[facility] HospitalIn the event this information is protected by the Federal Confidentiality of Alcohol and Drug Abuse Patient Records regulations: The Federal rules restrict any use of the information to criminally investigate or prosecute any alcohol or drug abuse patient.[facility] HospitalIn the event this information is protected by the Federal Confidentiality of Alcohol and Drug Abuse Patient Records regulations: The Federal rules restrict any use of the information to criminally investigate or prosecute any alcohol or drug abuse patient.[facility] HospitalIn the event this information is protected by the Federal Confidentiality of Alcohol and Drug Abuse Patient Records regulations: The Federal rules restrict any use of the information to criminally investigate or prosecute any alcohol or drug abuse patient.[facility] HospitalIn the event this information is protected by the Federal Confidentiality of Alcohol and Drug Abuse Patient Records regulations: The Federal rules restrict any use of the information to criminally investigate or prosecute any alcohol or drug abuse patient.[facility] HospitalIn the event this information is protected by the Federal Confidentiality of Alcohol and Drug Abuse Patient Records regulations: The Federal rules restrict any use of the information to criminally investigate or prosecute any alcohol or drug abuse patient.[facility] HospitalIn the event this information is protected by the Federal Confidentiality of Alcohol and Drug Abuse Patient Records regulations: The Federal rules restrict any use of the information to criminally investigate or prosecute any alcohol or drug abuse patient.[facility] HospitalIn the event this information is protected by the Federal Confidentiality of Alcohol and Drug Abuse Patient Records regulations: The Federal rules restrict any use of the information to criminally investigate or prosecute any alcohol or drug abuse patient.[facility] HospitalIn the event this information is protected by the Federal Confidentiality of Alcohol and Drug Abuse Patient Records regulations: The Federal rules restrict any use of the information to criminally investigate or prosecute any alcohol or drug abuse patient.[facility] HospitalIn the event this information is protected by the Federal Confidentiality of Alcohol and Drug Abuse Patient Records regulations: The Federal rules restrict any use of the information to criminally investigate or prosecute any alcohol or drug abuse patient.[facility] HospitalIn the event this information is protected by the Federal Confidentiality of Alcohol and Drug Abuse Patient Records regulations: The Federal rules restrict any use of the information to criminally investigate or prosecute any alcohol or drug abuse patient.[facility] HospitalIn the event this information is protected by the Federal Confidentiality of Alcohol and Drug Abuse Patient Records regulations: The Federal rules restrict any use of the information to criminally investigate or prosecute any alcohol or drug abuse patient.[facility]In the event this information is protected by the Federal Confidentiality of Alcohol and Drug Abuse Patient Records regulations: The Federal rules restrict any use of the information to criminally investigate or prosecute any alcohol or drug abuse patient.[facility] HospitalIn the event this information is protected by the Federal Confidentiality of Alcohol and Drug Abuse Patient Records regulations: The Federal rules restrict any use of the information to criminally investigate or prosecute any alcohol or drug abuse patient.[facility] HospitalIn the event this information is protected by the Federal Confidentiality of Alcohol and Drug Abuse Patient Records regulations: The Federal rules restrict any use of the information to criminally investigate or prosecute any alcohol or drug abuse patient.[facility] HospitalIn the event this information is protected by the Federal Confidentiality of Alcohol and Drug Abuse Patient Records regulations: The Federal rules restrict any use of the information to criminally investigate or prosecute any alcohol or drug abuse patient.[facility] HospitalIn the event this information is protected by the Federal Confidentiality of Alcohol and Drug Abuse Patient Records regulations: The Federal rules restrict any use of the information to criminally investigate or prosecute any alcohol or drug abuse patient.[facility] HospitalIn the event this information is protected by the Federal Confidentiality of Alcohol and Drug Abuse Patient Records regulations: The Federal rules restrict any use of the information to criminally investigate or prosecute any alcohol or drug abuse patient.[facility] HospitalIn the event this information is protected by the Federal Confidentiality of Alcohol and Drug Abuse Patient Records regulations: The Federal rules restrict any use of the information to criminally investigate or prosecute any alcohol or drug abuse patient.[facility] HospitalIn the event this information is protected by the Federal Confidentiality of Alcohol and Drug Abuse Patient Records regulations: The Federal rules restrict any use of the information to criminally investigate or prosecute any alcohol or drug abuse patient.[facility] HospitalIn the event this information is protected by the Federal Confidentiality of Alcohol and Drug Abuse Patient Records regulations: The Federal rules restrict any use of the information to criminally investigate or prosecute any alcohol or drug abuse patient.[facility] HospitalIn the event this information is protected by the Federal Confidentiality of Alcohol and Drug Abuse Patient Records regulations: The Federal rules restrict any use of the information to criminally investigate or prosecute any alcohol or drug abuse patient.[facility] HospitalIn the event this information is protected by the Federal Confidentiality of Alcohol and Drug Abuse Patient Records regulations: The Federal rules restrict any use of the information to criminally investigate or prosecute any alcohol or drug abuse patient.[facility] HospitalIn the event this information is protected by the Federal Confidentiality of Alcohol and Drug Abuse Patient Records regulations: The Federal rules restrict any use of the information to criminally investigate or prosecute any alcohol or drug abuse patient.[facility] HospitalIn the event this information is protected by the Federal Confidentiality of Alcohol and Drug Abuse Patient Records regulations: The Federal rules restrict any use of the information to criminally investigate or prosecute any alcohol or drug abuse patient.[facility] HospitalIn the event this information is protected by the Federal Confidentiality of Alcohol and Drug Abuse Patient Records regulations: The Federal rules restrict any use of the information to criminally investigate or prosecute any alcohol or drug abuse patient.[facility] HospitalIn the event this information is protected by the Federal Confidentiality of Alcohol and Drug Abuse Patient Records regulations: The Federal rules restrict any use of the information to criminally investigate or prosecute any alcohol or drug abuse patient.[facility] HospitalIn the event this information is protected by the Federal Confidentiality of Alcohol and Drug Abuse Patient Records regulations: The Federal rules restrict any use of the information to criminally investigate or prosecute any alcohol or drug abuse patient.[facility] HospitalIn the event this information is protected by the Federal Confidentiality of Alcohol and Drug Abuse Patient Records regulations: The Federal rules restrict any use of the information to criminally investigate or prosecute any alcohol or drug abuse patient.[facility] HospitalIn the event this information is protected by the Federal Confidentiality of Alcohol and Drug Abuse Patient Records regulations: The Federal rules restrict any use of the information to criminally investigate or prosecute any alcohol or drug abuse patient.[facility] HospitalIn the event this information is protected by the Federal Confidentiality of Alcohol and Drug Abuse Patient Records regulations: The Federal rules restrict any use of the information to criminally investigate or prosecute any alcohol or drug abuse patient.[facility] HospitalIn the event this information is protected by the Federal Confidentiality of Alcohol and Drug Abuse Patient Records regulations: The Federal rules restrict any use of the information to criminally investigate or prosecute any alcohol or drug abuse patient.[facility] HospitalIn the event this information is protected by the Federal Confidentiality of Alcohol and Drug Abuse Patient Records regulations: The Federal rules restrict any use of the information to criminally investigate or prosecute any alcohol or drug abuse patient.[facility] HospitalIn the event this information is protected by the Federal Confidentiality of Alcohol and Drug Abuse Patient Records regulations: The Federal rules restrict any use of the information to criminally investigate or prosecute any alcohol or drug abuse patient.[facility] HospitalIn the event this information is protected by the Federal Confidentiality of Alcohol and Drug Abuse Patient Records regulations: The Federal rules restrict any use of the information to criminally investigate or prosecute any alcohol or drug abuse patient.[facility] HospitalIn the event this information is protected by the Federal Confidentiality of Alcohol and Drug Abuse Patient Records regulations: The Federal rules restrict any use of the information to criminally investigate or prosecute any alcohol or drug abuse patient.[facility] HospitalIn the event this information is protected by the Federal Confidentiality of Alcohol and Drug Abuse Patient Records regulations: The Federal rules restrict any use of the information to criminally investigate or prosecute any alcohol or drug abuse patient.[facility] HospitalIn the event this information is protected by the Federal Confidentiality of Alcohol and Drug Abuse Patient Records regulations: The Federal rules restrict any use of the information to criminally investigate or prosecute any alcohol or drug abuse patient.[facility] HospitalIn the event this information is protected by the Federal Confidentiality of Alcohol and Drug Abuse Patient Records regulations: The Federal rules restrict any use of the information to criminally investigate or prosecute any alcohol or drug abuse patient.[facility] HospitalIn the event this information is protected by the Federal Confidentiality of Alcohol and Drug Abuse Patient Records regulations: The Federal rules restrict any use of the information to criminally investigate or prosecute any alcohol or drug abuse patient.[facility] HospitalIn the event this information is protected by the Federal Confidentiality of Alcohol and Drug Abuse Patient Records regulations: The Federal rules restrict any use of the information to criminally investigate or prosecute any alcohol or drug abuse patient.[facility] HospitalIn the event this information is protected by the Federal Confidentiality of Alcohol and Drug Abuse Patient Records regulations: The Federal rules restrict any use of the information to criminally investigate or prosecute any alcohol or drug abuse patient.[facility] HospitalIn the event this information is protected by the Federal Confidentiality of Alcohol and Drug Abuse Patient Records regulations: The Federal rules restrict any use of the information to criminally investigate or prosecute any alcohol or drug abuse patient.[facility] HospitalIn the event this information is protected by the Federal Confidentiality of Alcohol and Drug Abuse Patient Records regulations: The Federal rules restrict any use of the information to criminally investigate or prosecute any alcohol or drug abuse patient.[facility] HospitalIn the event this information is protected by the Federal Confidentiality of Alcohol and Drug Abuse Patient Records regulations: The Federal rules restrict any use of the information to criminally investigate or prosecute any alcohol or drug abuse patient.[facility] HospitalIn the event this information is protected by the Federal Confidentiality of Alcohol and Drug Abuse Patient Records regulations: The Federal rules restrict any use of the information to criminally investigate or prosecute any alcohol or drug abuse patient.[facility] HospitalIn the event this information is protected by the Federal Confidentiality of Alcohol and Drug Abuse Patient Records regulations: The Federal rules restrict any use of the information to criminally investigate or prosecute any alcohol or drug abuse patient.[facility] HospitalIn the event this information is protected by the Federal Confidentiality of Alcohol and Drug Abuse Patient Records regulations: The Federal rules restrict any use of the information to criminally investigate or prosecute any alcohol or drug abuse patient.[facility] HospitalIn the event this information is protected by the Federal Confidentiality of Alcohol and Drug Abuse Patient Records regulations: The Federal rules restrict any use of the information to criminally investigate or prosecute any alcohol or drug abuse patient.[facility] HospitalIn the event this information is protected by the Federal Confidentiality of Alcohol and Drug Abuse Patient Records regulations: The Federal rules restrict any use of the information to criminally investigate or prosecute any alcohol or drug abuse patient.[facility] HospitalIn the event this information is protected by the Federal Confidentiality of Alcohol and Drug Abuse Patient Records regulations: The Federal rules restrict any use of the information to criminally investigate or prosecute any alcohol or drug abuse patient.[facility] HospitalIn the event this information is protected by the Federal Confidentiality of Alcohol and Drug Abuse Patient Records regulations: The Federal rules restrict any use of the information to criminally investigate or prosecute any alcohol or drug abuse patient.[facility] HospitalIn the event this information is protected by the Federal Confidentiality of Alcohol and Drug Abuse Patient Records regulations: The Federal rules restrict any use of the information to criminally investigate or prosecute any alcohol or drug abuse patient.[facility] HospitalIn the event this information is protected by the Federal Confidentiality of Alcohol and Drug Abuse Patient Records regulations: The Federal rules restrict any use of the information to criminally investigate or prosecute any alcohol or drug abuse patient.[facility] HospitalIn the event this information is protected by the Federal Confidentiality of Alcohol and Drug Abuse Patient Records regulations: The Federal rules restrict any use of the information to criminally investigate or prosecute any alcohol or drug abuse patient.[facility] HospitalIn the event this information is protected by the Federal Confidentiality of Alcohol and Drug Abuse Patient Records regulations: The Federal rules restrict any use of the information to criminally investigate or prosecute any alcohol or drug abuse patient.[facility] HospitalIn the event this information is protected by the Federal Confidentiality of Alcohol and Drug Abuse Patient Records regulations: The Federal rules restrict any use of the information to criminally investigate or prosecute any alcohol or drug abuse patient.[facility] HospitalIn the event this information is protected by the Federal Confidentiality of Alcohol and Drug Abuse Patient Records regulations: The Federal rules restrict any use of the information to criminally investigate or prosecute any alcohol or drug abuse patient.[facility] HospitalIn the event this information is protected by the Federal Confidentiality of Alcohol and Drug Abuse Patient Records regulations: The Federal rules restrict any use of the information to criminally investigate or prosecute any alcohol or drug abuse patient.[facility] HospitalIn the event this information is protected by the Federal Confidentiality of Alcohol and Drug Abuse Patient Records regulations: The Federal rules restrict any use of the information to criminally investigate or prosecute any alcohol or drug abuse patient.[facility] HospitalIn the event this information is protected by the Federal Confidentiality of Alcohol and Drug Abuse Patient Records regulations: The Federal rules restrict any use of the information to criminally investigate or prosecute any alcohol or drug abuse patient.[facility] HospitalIn the event this information is protected by the Federal Confidentiality of Alcohol and Drug Abuse Patient Records regulations: The Federal rules restrict any use of the information to criminally investigate or prosecute any alcohol or drug abuse patient.[facility]In the event this information is protected by the Federal Confidentiality of Alcohol and Drug Abuse Patient Records regulations: The Federal rules restrict any use of the information to criminally investigate or prosecute any alcohol or drug abuse patient.[facility] HospitalIn the event this information is protected by the Federal Confidentiality of Alcohol and Drug Abuse Patient Records regulations: The Federal rules restrict any use of the information to criminally investigate or prosecute any alcohol or drug abuse patient.[facility] HospitalIn the event this information is protected by the Federal Confidentiality of Alcohol and Drug Abuse Patient Records regulations: The Federal rules restrict any use of the information to criminally investigate or prosecute any alcohol or drug abuse patient.[facility] HospitalIn the event this information is protected by the Federal Confidentiality of Alcohol and Drug Abuse Patient Records regulations: The Federal rules restrict any use of the information to criminally investigate or prosecute any alcohol or drug abuse patient.[facility] HospitalIn the event this information is protected by the Federal Confidentiality of Alcohol and Drug Abuse Patient Records regulations: The Federal rules restrict any use of the information to criminally investigate or prosecute any alcohol or drug abuse patient.[facility] HospitalIn the event this information is protected by the Federal Confidentiality of Alcohol and Drug Abuse Patient Records regulations: The Federal rules restrict any use of the information to criminally investigate or prosecute any alcohol or drug abuse patient.[facility] HospitalIn the event this information is protected by the Federal Confidentiality of Alcohol and Drug Abuse Patient Records regulations: The Federal rules restrict any use of the information to criminally investigate or prosecute any alcohol or drug abuse patient.[facility] HospitalIn the event this information is protected by the Federal Confidentiality of Alcohol and Drug Abuse Patient Records regulations: The Federal rules restrict any use of the information to criminally investigate or prosecute any alcohol or drug abuse patient.[facility] HospitalIn the event this information is protected by the Federal Confidentiality of Alcohol and Drug Abuse Patient Records regulations: The Federal rules restrict any use of the information to criminally investigate or prosecute any alcohol or drug abuse patient.[facility] HospitalIn the event this information is protected by the Federal Confidentiality of Alcohol and Drug Abuse Patient Records regulations: The Federal rules restrict any use of the information to criminally investigate or prosecute any alcohol or drug abuse patient.[facility] HospitalIn the event this information is protected by the Federal Confidentiality of Alcohol and Drug Abuse Patient Records regulations: The Federal rules restrict any use of the information to criminally investigate or prosecute any alcohol or drug abuse patient.[facility] HospitalIn the event this information is protected by the Federal Confidentiality of Alcohol and Drug Abuse Patient Records regulations: The Federal rules restrict any use of the information to criminally investigate or prosecute any alcohol or drug abuse patient.[facility] HospitalIn the event this information is protected by the Federal Confidentiality of Alcohol and Drug Abuse Patient Records regulations: The Federal rules restrict any use of the information to criminally investigate or prosecute any alcohol or drug abuse patient.[facility] HospitalIn the event this information is protected by the Federal Confidentiality of Alcohol and Drug Abuse Patient Records regulations: The Federal rules restrict any use of the information to criminally investigate or prosecute any alcohol or drug abuse patient.[facility] HospitalIn the event this information is protected by the Federal Confidentiality of Alcohol and Drug Abuse Patient Records regulations: The Federal rules restrict any use of the information to criminally investigate or prosecute any alcohol or drug abuse patient.[facility] HospitalIn the event this information is protected by the Federal Confidentiality of Alcohol and Drug Abuse Patient Records regulations: The Federal rules restrict any use of the information to criminally investigate or prosecute any alcohol or drug abuse patient.[facility] HospitalIn the event this information is protected by the Federal Confidentiality of Alcohol and Drug Abuse Patient Records regulations: The Federal rules restrict any use of the information to criminally investigate or prosecute any alcohol or drug abuse patient.[facility] HospitalIn the event this information is protected by the Federal Confidentiality of Alcohol and Drug Abuse Patient Records regulations: The Federal rules restrict any use of the information to criminally investigate or prosecute any alcohol or drug abuse patient.[facility] HospitalIn the event this information is protected by the Federal Confidentiality of Alcohol and Drug Abuse Patient Records regulations: The Federal rules restrict any use of the information to criminally investigate or prosecute any alcohol or drug abuse patient.[facility] HospitalIn the event this information is protected by the Federal Confidentiality of Alcohol and Drug Abuse Patient Records regulations: The Federal rules restrict any use of the information to criminally investigate or prosecute any alcohol or drug abuse patient.[facility] HospitalIn the event this information is protected by the Federal Confidentiality of Alcohol and Drug Abuse Patient Records regulations: The Federal rules restrict any use of the information to criminally investigate or prosecute any alcohol or drug abuse patient.[facility] HospitalIn the event this information is protected by the Federal Confidentiality of Alcohol and Drug Abuse Patient Records regulations: The Federal rules restrict any use of the information to criminally investigate or prosecute any alcohol or drug abuse patient.[facility] HospitalIn the event this information is protected by the Federal Confidentiality of Alcohol and Drug Abuse Patient Records regulations: The Federal rules restrict any use of the information to criminally investigate or prosecute any alcohol or drug abuse patient.[facility] HospitalIn the event this information is protected by the Federal Confidentiality of Alcohol and Drug Abuse Patient Records regulations: The Federal rules restrict any use of the information to criminally investigate or prosecute any alcohol or drug abuse patient.[facility] HospitalIn the event this information is protected by the Federal Confidentiality of Alcohol and Drug Abuse Patient Records regulations: The Federal rules restrict any use of the information to criminally investigate or prosecute any alcohol or drug abuse patient.[facility] HospitalIn the event this information is protected by the Federal Confidentiality of Alcohol and Drug Abuse Patient Records regulations: The Federal rules restrict any use of the information to criminally investigate or prosecute any alcohol or drug abuse patient.[facility] HospitalIn the event this information is protected by the Federal Confidentiality of Alcohol and Drug Abuse Patient Records regulations: The Federal rules restrict any use of the information to criminally investigate or prosecute any alcohol or drug abuse patient.[facility] HospitalIn the event this information is protected by the Federal Confidentiality of Alcohol and Drug Abuse Patient Records regulations: The Federal rules restrict any use of the information to criminally investigate or prosecute any alcohol or drug abuse patient.[facility] HospitalIn the event this information is protected by the Federal Confidentiality of Alcohol and Drug Abuse Patient Records regulations: The Federal rules restrict any use of the information to criminally investigate or prosecute any alcohol or drug abuse patient.[facility] HospitalIn the event this information is protected by the Federal Confidentiality of Alcohol and Drug Abuse Patient Records regulations: The Federal rules restrict any use of the information to criminally investigate or prosecute any alcohol or drug abuse patient.[facility] HospitalIn the event this information is protected by the Federal Confidentiality of Alcohol and Drug Abuse Patient Records regulations: The Federal rules restrict any use of the information to criminally investigate or prosecute any alcohol or drug abuse patient.[facility] HospitalIn the event this information is protected by the Federal Confidentiality of Alcohol and Drug Abuse Patient Records regulations: The Federal rules restrict any use of the information to criminally investigate or prosecute any alcohol or drug abuse patient.[facility] HospitalIn the event this information is protected by the Federal Confidentiality of Alcohol and Drug Abuse Patient Records regulations: The Federal rules restrict any use of the information to criminally investigate or prosecute any alcohol or drug abuse patient.[facility] HospitalIn the event this information is protected by the Federal Confidentiality of Alcohol and Drug Abuse Patient Records regulations: The Federal rules restrict any use of the information to criminally investigate or prosecute any alcohol or drug abuse patient.[facility] HospitalIn the event this information is protected by the Federal Confidentiality of Alcohol and Drug Abuse Patient Records regulations: The Federal rules restrict any use of the information to criminally investigate or prosecute any alcohol or drug abuse patient.[facility] HospitalIn the event this information is protected by the Federal Confidentiality of Alcohol and Drug Abuse Patient Records regulations: The Federal rules restrict any use of the information to criminally investigate or prosecute any alcohol or drug abuse patient.[facility] HospitalIn the event this information is protected by the Federal Confidentiality of Alcohol and Drug Abuse Patient Records regulations: The Federal rules restrict any use of the information to criminally investigate or prosecute any alcohol or drug abuse patient.[facility] HospitalIn the event this information is protected by the Federal Confidentiality of Alcohol and Drug Abuse Patient Records regulations: The Federal rules restrict any use of the information to criminally investigate or prosecute any alcohol or drug abuse patient.[facility] Reason for Visit (unrecogniz ed section and content) Reason Comments Follow Up Specialty Diagnoses / Procedures Referred By Contac t Referred To Contact Psychiatry / ADULT PSYCHIATRY Diagnoses distance health Procedures VIDEO PSYC/PSYL EST Jeanette Miller, RAYMON.PUBLIC SAFETY TELECOMMUNICATOR [address] [place] [phone] Jeanette Miller, PROSTHETICS LAB TECHNICIAN.PUBLIC SAFETY TELECOMMUNICATOR [address] [place] [phone] Referral ID Status Reason Start Date Expiration Date V isits Requested Visits Authorized [id number] Authorized 10/08/2022 10/07/2023 99 99 Specialty Diagnoses / Procedures Referred By Contac t Referred To Contact Psychology Diagnoses Psychogenic nonepileptic seizure Procedures CONSULT TO PSYCHOLOGY OFFICE/OUTPATIENT [facility] MDM 60-74 MINUTES Brittany Sánchez, PhD [address] [place] [id number] Referral ID Status Reason Start Date Expiration Date Visits Requested Visits Authorized [id number] Pending Review PCP Requested Referral 08/23/2023 1 1 Reason Comments Refill Request Reason Comments High Blood Sugar Reason Comments Patient Question Reason Comments Follow Up Depression Anxiety Specialty Diagnoses / Procedures Referred By Rasheed t Referred To Contact Psychiatry / ADULT PSYCHIATRY Diagnoses virtual visit Med Check Waiting for 2021 ins richie Procedures VIDEO PSYC/PSYL EST Jeanette Miller, RAYMON.PUBLIC SAFETY TELECOMMUNICATOR [address] [place] [phone] Jeanette Miller, PROSTHETICS LAB TECHNICIAN.PUBLIC SAFETY TELECOMMUNICATOR [address] [place] [phone] Referral ID Status Reason Start Date Expiration Date V isits Requested Visits Authorized [id number] Authorized 10/08/2021 10/07/2022 99 99 Reason Comments Musculoskeletal Problem Reason Onset Date Comments Transition Of Care 08/24/2022 TCM Pharmacy- Hospital discharge 08/23/22 Reason Onset Date Comments Transition Of Care 08/24/2022 TCM Initial O utreach: [facility] [place] 08/23/22, AMS Reason Onset Date Comments Refill Request 08/28/2022 Reason Onset Date Comments Transition Of Care 09/12/2022 TCM F/U Reason Onset Date Comments Transition Of Care 09/21/2022 TCM F/U Reason Comments medication concern lisinopril Reason Onset Date Comments Symptoms 09/26/2022 Reason Comments Information Reason Comments Patient Update Reason Comments ER F/U Reason Comments Forms Reason Comments Forms Cigna Reason Comments Nurse Triage Call Syncope Reason Comments Hospital Follow Up Reason Comments General Return to work lette r Reason Onset Date Comments Refill Request 11/14/2022 Reason Onset Date Comments Refill Request 12/15/2022 Reason Comments Letter Return to work Reason Comments Letter Letter for work Reason Comments Breast Problem Reason Comments Breast Problem Noticed dark bloody discharge from right breast 5 days ago Reason Comments Establish Care Reason Comments Med Change Request Reason Comments Results Reason Comments Other Return to work Reason Comments Follow Up Reason Comments Dizziness Reason Onset Date Comments Refill Request 08/15/2023 Reason Onset Date Comments Refill Request 09/17/2023 Specialty Diagnoses / Procedures Referred By Rasheed bryant Referred To Contact Psychiatry / ADULT PSYCHIATRY Diagnoses med check Procedures VIDEO PSYC/PSYL EST Jeanette Miller APRN.PUBLIC SAFETY TELECOMMUNICATOR [address] [place] [address] Jeanette Miller APRN.PUBLIC SAFETY TELECOMMUNICATOR [address] [place] [address] Referral ID Status Reason Start Date Expiration Date V isits Requested Visits Authorized [id number] Authorized 10/08/2023 10/07/2024 99 99 Reason Comments Vomiting Pt c/o abdominal jas n with vomiting for a couple hours prior to arrival Specialty Diagnoses / Procedures Referred By Rasheed bryant Referred To Contact Diagnoses SBO (small bowel obstruction) (CMS/HCC) Periumbilical abdominal pain Procedures IP Jadiel Gray MD [facility] [place] [address] [address] Referral ID Status Reason Start Date Expiration Date Visits Re quested Visits Authorized [id number] 1 1 Reason Comments Dizziness 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 States she checked her glucose and it was 62. Ate some crackers and peanut butter and orange juice. Also states she has had a sore throat, runny nose, and nausea for a few days Reason Comments Orders Reason Comments Dental Pain Pt comes in for dent al pain x months. Pt states the the lower right side of her jaw has a broken tooth that she has been trying to manage by herself. Pt believes that it is infected at this point and may need an antibiotic. Pt is concerned that her blood sugar may be elevated as well. Reason Onset Date Comments Refill Request 01/24/2024 Reason Onset Date Comments Refill Request 01/25/2024 Reason Comments Syncope Patient was standing in the kitchen and had ringing in her ears, bystanders report the patient having to sit down and feeling like she was going to pass out. Patient then was assisted to lie down. Patient is a DM and BGL was 190. Patient denies N/V/D/fever or recent illness, also reports that she has not ate today. Patient denies pain. Reason Comments Appointment Reason Onset Date Comments Discussion 04/22/2024 Reason Comments Pain Right hand pain x 3 weeks Reason Comments Chest Pain Illness Reason Comments Pain Patient states she h as had pain in her right shoulder for about 5-6 weeks. Reason Comments Follow-up BLOOD PRESSURE CHECK . ER VISIT 07/06/24 FOR HIGH BLOOD PRESSURE WITH RIGHT SHOULDER PAIN. ER VISIT 07/09/24 FOR ATYPICAL CHEST PAIN. PATIENT CONTINUES TO HAVE RIGHT SHOULDER PAIN WITH LIMITED ROM - PENDING APPOINTMENT WITH ORTHO LATER TODAY. Reason Comments Follow-up BLOOD PRESSURE CHECK . F/U ER VISIT 07/06/24 RIGHT SHOULDER PAIN AND HIGH BLOOD PRESSURE. ER VISIT 07/09/24 FOR CHEST PAIN WHICH PATIENT CLAIMS HAS RESOLVED. CONTINUES TO HAVE RIGHT SHOULDER PAIN WITH LIMITED ROM. Reason Comments Radiology XR Reason Comments Pain Patient states she h as had pain in her right shoulder for about 5-6 weeks. Reason Comments Pain X-RAY 07-06-24ER 07-15 Reason Onset Date Comments Refill Request 08/14/2024 Reason Onset Date Comments Population Health Navigation Outreach 08/28/2024 ACO QAE Surge list 2023 Reason Comments Chest Pain Chest pain and short ness of breath onset was 10 am today. 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 Rest makes pain better. Worse when up and about. Is diaphoretic. Pain does not radiate. Pain in center of chest is able to be reproduced to palpation. Pain is sharp in nature. Patient is diabetic on oral agents but does not check her blood sugars. Reason Comments Follow-up Med refill Reason Comments Panic Attack Pt comes in for a pa montserrat attack. Pt states she got into an argument about 2 days ago. Pt states she became severly upset causing her anxiety to kick in. Pt states she is having a hard time calming herself down. Reason Comments Shoulder Pain For 5 weeks pt has h ad right shoulder pain, difficulty with ROM, pain is getting progressively worse. Had right finger/palm surgery x 6 weeks ago, has not followed up with surgeon yet. Has not seen anyone yet for shoulder pain. Last took tylenol this AM. Reason Comments Pain X-RAY 07-06-24ER 07-15 Follow-up X-RAY 07-06-24ER 07-15 Reason Comments Suicidal Pt reports suicidal thoughts over the last couple days. Pt states that she planned to use a knife. Pt reports increased stress related to work recently. Pt denies HI. Pt was placed in psych safe room at 1139, pt changed into paper scrubs, belonging collected and 1:1 initiated. 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 Pt is A&Ox3 and did not lose control of bowel or bladder. Pt has hx of DM2 and seizures. Pt stated she felt dizzy and like she was going to pass out. Reason Comments Headache HEADACHE, THROWING U P, DIARRHEA, NO FEVER THAT SHE KNOWS OF Reason Comments Follow-up FOLLOW UP, LABS, FML A Specialty Diagnoses / Procedures Referred By Rasheed t Referred To Contact Diagnoses Low vitamin B12 level Petros Cespedes, PROSTHETICS LAB TECHNICIAN-PUBLIC SAFETY TELECOMMUNICATOR [address] [place] [address] Phone: tel: fax: Referral ID Status Reason Start Date Expiration Date V isits Requested Visits Authorized [id number] Pending Review 12/17/2024 12/17/2025 1 1 Reason Comments Shortness of Breath Patient reports whil e at work she became dizzy, sob, went away for about an hour and it came back. Patient is hyperventilating and reports her hands and face have tingling. Patient denies cough/congest/fever or pain Reason Comments Follow-up BP CK Specialty Diagnoses / Procedures Referred By Contac t Referred To Contact Family Medicine / Primary Care Diagnoses Shortness of breath D[place] [address] [place] [address] Department [place] [address] Phone: tel: fax: Referral ID Status Reason Start Date Expiration Date Visits Requested Visits Authorized [id number] Authorized Specialty Services Required 12/31/2024 12/31/2025 1 1 Reason Onset Date Comments Refill Request 01/18/2025 Reason Comments Abdominal Pain Abd pain and crampin g. States she hasn't had bowel movement since , has used laxatives and stool softeners. Hx of bowel obstruction in past. Reason Comments Follow-up ER FOLLOW UP Reason Comments Seizures Rapid response mosher d to [facility]. Pt has witnessed seizure activity in cafe. Pt was awake, but postictal when we arrived. Pt transferred to ED for further eval Reason Comments Rapid Heart Rate NPV Specialty Diagnoses / Procedures Referred By Contac t Referred To Contact Cardiology Diagnoses Tachycardia Hypertension associated with type 2 diabetes mellitus POTS (postural orthostatic tachycardia syndrome) Petros Cespedes, PROSTHETICS LAB TECHNICIAN-PUBLIC SAFETY TELECOMMUNICATOR [address] [place] [address] Phone: tel: fax: Referral ID Status Reason Start Date Expiration Date Visits Requested Visits Authorized [id number] Authorized Specialty Services Required 01/14/2025 01/14/2026 1 1 Reason Onset Date Comments Refill Request 03/30/2025 Reason Comments Vomiting 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 Reason Comments Abdominal Pain C o intermittent abd spasms. Pt endorses nausea without vomiting. 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 Reason Comments Follow Up ER at 04/11/2025 Reason Comments Follow-up ER FOLLOW UP, BLOOD SUGARS, BP CHECK Reason Comments Pelvic ultrasound results <item><item><item><item> Privacy Markings (unrecogniz ed section and content) Section Author: Margarita Alvarado PROHIBITION ON REDISCLOSURE OF CONFIDENTIAL INFORMATION This notice accompanies a disclosure of information concerning a client made to you with the consent of such client. Section Author: Margarita Alvarado PROHIBITION ON REDISCLOSURE OF CONFIDENTIAL INFORMATION This notice accompanies a disclosure of information concerning a client made to you with the consent of such client. Section Author: Margarita Alvarado PROHIBITION ON REDISCLOSURE OF CONFIDENTIAL INFORMATION This notice accompanies a disclosure of information concerning a client made to you with the consent of such client. Section Author: Margarita Alvarado PROHIBITION ON REDISCLOSURE OF CONFIDENTIAL INFORMATION This notice accompanies a disclosure of information concerning a client made to you with the consent of such client. Goals (unrecognized section and content) Goals may be documented in a n alternate section Scheduled Active and Recently Administ ered Medications (unrecognized section and content) Medication Order 07/09/2023 07/10/2023 07/11/2023 cefTRIAXone (Rocephin) IVPB 1 g (COMPLETED) 1 g, intravenous, at 100 mL/hr, Administer over 30 Minutes, Once, On Sun07/11/23 at 1345, For 1 dose, premix bag, Suspected Indication (Select all that apply): Urinary Tract Infection, Type of Urinary Tract Infection: Uncomplicated 1352 (New Bag - Prov ider: Clara Camara RN)1422 (Stopped - Provider: Max Suarez RN) sodium chloride 0.9 % bolus 1,000 mL (COMPLETED) 1,000 mL, intravenous, at 1,000 mL/hr, Administer over 1 Hours, Once, On Sun07/11/23 at 1255, For 1 dose 1306 (New Bag - Prov ider: Max Suarez RN)1355 (Stopped - Provider: Clara Camara RN) Scheduled Medication Order 07/09/2023 07/10/2023 07/11/2023 cefTRIAXone (Rocephin) IVPB 1 g (COMPLETED) 1 g, intravenous, at 100 mL/hr, Administer over 30 Minutes, Once, On Sun07/11/23 at 1345, For 1 dose, premix bag, Suspected Indication (Select all that apply): Urinary Tract Infection, Type of Urinary Tract Infection: Uncomplicated 1352 (New Bag - Prov ider: Clara Camara RN)1422 (Stopped - Provider: Max Suarez RN) sodium chloride 0.9 % bolus 1,000 mL (COMPLETED) 1,000 mL, intravenous, at 1,000 mL/hr, Administer over 1 Hours, Once, On Sun07/11/23 at 1255, For 1 dose 1306 (New Bag - Prov ider: Max Suarez, RN)1355 (Stopped - Provider: Clara Camara, KALEN) Scheduled Medication Order 12/05/2023 12/06/2023 12/07/2023 famotidine PF (Pepcid) injection 20 mg 20 mg, intravenous, Every 12 hours scheduled, First dose on Sun12/06/23 at 0900 0840 (Given - Provider: Rashawn Oshea, KALEN)2034 (Given - Provider: Annika Todd, KALEN) 0900 (Given - Provider: Angelic Nichols)2100 (Due) fentaNYL PF (Sublimaze) injection 50 mcg (COMPLETED) 50 mcg, intravenous, Once, On Sun12/06/23 at 0145, For 1 dose 0206 (Given - Provider: Rodríguez Patrick RN) insulin lispro (HumaLOG) injection 0-5 Units 0-5 Units, subcutaneous, 3 times daily, First dose on Sun12/06/23 at 0900, Insulin Lispro Corrective Scale #1 Hypoglycemia protocol Call LIP unit(s) if Blood Glucose is between 0 - 70 mg/dL 0 unit(s) if Blood glucose is between 71-150 1 unit(s) if Blood glucose is between 151-200 2 unit(s) if Blood glucose is between 201-250 3 unit(s) if Blood glucose is between 251-300 4 unit(s) if Blood glucose is between 301-350 5 unit(s) if Blood glucose is between 351-400 Notify provider unit(s) if Blood Glucose is greater than 400 mg/dL 0847 (Given - Provider: Rashawn Oshea, KALEN)1651 (Given - Provider: Rashawn Oshea, KALEN)2041 (Given - Provider: Annika Todd, KALEN) 0850 (Given - Provider: Angelic Nichols)1500 (Due)2100 (Due) iohexol (OMNIPaque) 350 mg iodine/mL solution 68 mL (COMPLETED) 68 mL, intravenous, Once in imaging, Starting on Sun12/06/23 at 0057, For 1 dose 0118 (Given - Provider: Mojgan Adams) ketorolac (Toradol) injection 30 mg 30 mg, intravenous, Every 6 hours scheduled, First dose on Sun12/06/23 at 0600, For 5 days 0539 (Given - Provider: Bella Mcdonald RN)1123 (Given - Provider: Rashawn Oshea, KALEN)1818 (Given - Provider: Tracie Kendall, KALEN)2301 (Given - Provider: Annika Todd RN) 0545 (Given - Provider: Annika Todd RN)1136 (Given - Provider: Angelic Nichols)1800 (Due) lactulose 20 gram/30 mL oral solution 20 g (CANCELED) 20 g, oral, 3 times daily, First dose on Sun12/07/23 at 0900, 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 2356 (Given - Provider: Rodríguez Patrick RN) pantoprazole (ProtoNix) injection 40 mg (COMPLETED) 40 mg, intravenous, Once, On Sun12/06/23 at 0145, For 1 dose, Reconstitute with 10 mL sodium chloride 0.9% for injection. Push over 2 minutes. Reconstitute with 10 mL sodium chloride 0.9% for injection. Push over 2 minutes. 0145 (Given - Provider: Rodríguez Patrick RN) polyethylene glycol (Glycolax, Miralax) packet 17 g 17 g, oral, 2 times daily, First dose (after last modification) on Sun12/06/23 at 2100 2035 (Given - Provider: Annika Todd RN) 0846 (Given - Provider: Angelic Nichols)2100 (Due) prochlorperazine (Compazine) injection 10 mg (COMPLETED) 10 mg, intravenous, Once, On Sun12/06/23 at 0040, For 1 dose 0053 (Given - Provider: Rodríguez Patrick RN) rosuvastatin (Crestor) tablet 5 mg 5 mg, oral, Nightly, First dose on Sun12/06/23 at 2100 2035 (Given - Provider: Annika Todd, RN) 2100 (Due) sodium chloride 0.9 % bolus 1,000 mL (COMPLETED) 1,000 mL, intravenous, at 1,000 mL/hr, Administer over 1 Hours, Once, On Sun12/05/23 at 2340, For 1 dose 2355 (New Bag - Provider: Rodríguez Patrick RN) 0055 (Stopped - Provider: Bella Mcdonald RN) venlafaxine XR (Effexor-XR) 24 hr capsule 150 mg 150 mg, oral, Daily, First dose on Sun12/06/23 at 1000, Capsule may be swallowed whole, or may be opened and its contents sprinkled on applesauce if consumed immediately without chewing. Do not crush or chew., Indications: generalized anxiety disorder 1123 (Given - Provider: Rashawn Oshea RN) 0841 (Given - Provider: Angelic Nichols) Continuous Medication Order 12/05/2023 12/06/2023 12/07/2023 sodium chloride 0.9% infusion (CANCELED) 125 mL/hr, intravenous, Continuous, Starting on Sun12/05/23 at 2340 0158 (New Bag - Provider: Rodríguez Patrick RN)0559 (Stopped - Provider: Bella Mcdonald, KALEN) sodium chloride 0.9% infusion (CANCELED) 100 mL/hr, intravenous, Continuous, Starting on Sun12/06/23 at 0615 0615 (Restarted - Provider: Bella Mcdonald, RN)1015 (New Bag - Provider: Rashawn Oshea RN)1701 (Rate/Dose Verify - Provider: Rashawn Oshea RN) 0545 (New Bag - Provider: Annika Todd, KALEN)1019 (Rate/Dose Verify - Provider: Koki Justin, RN)1300 (Stopped - Provider: Koki Justin, RN) PRN Medication Order 12/05/2023 12/06/2023 12/07/2023 acetaminophen (Tylenol) oral liquid 650 mg(Linked Group 1) 650 mg, oral, Every 4 hours PRN, pain mild (1-3), first line, Starting on Ashlee 12/06/23 at 0559, Give oral liquid per feeding tube if present. acetaminophen (Tylenol) suppository 650 mg(Linked Group 1) 650 mg, rectal, Every 4 hours PRN, pain mild (1-3), first line, Starting on Ashlee 12/06/23 at 0559, Give rectally if unable to administer by mouth or feeding tube., If ordered PRN for pain, nurse is permitted to administer this medication for higher pain scores based on patient preference? Yes acetaminophen (Tylenol) tablet 650 mg(Linked Group 1) 650 mg, oral, Every 4 hours PRN, pain mild (1-3), first line, Starting on Ashlee 12/06/23 at 0559, If ordered PRN for pain, nurse is permitted to administer this medication for higher pain scores based on patient preference? Yes dextrose 10 % in water (D10W) infusion 0.3 g/kg/hr 85.9 kg (257.7 mL/hr), intravenous, Once as needed, For blood glucose less than 70 mg/dL after 30 minutes of intervention. Discontinue once blood glucose reaches 100 mg/dL., Starting on Ashlee 12/06/23 at 0548, For 1 dose, Discontinue once blood glucose reaches 100 mg/dL. dextrose 50 % injection 25 g 25 g, intravenous, Every 15 min PRN, For blood glucose less than or equal to 40 mg/dL, Starting on Ashlee 12/06/23 at 0548, May repeat until blood glucose level reaches 100 mg/dL or greater. Push 2 - 3 mL/minute if patient has secure IV access. glucagon (Glucagen) injection 1 mg 1 mg, intramuscular, Every 15 min PRN, low blood sugar - see comments, For blood glucose less than or equal to 70 mg/dL and no IV access, Starting on Ashlee 12/06/23 at 0548, Give until blood glucose is 100 mg/dL or greater. If patient DOES NOT HAVE secure IV access & patient is unconscious, NPO or is unable to eat or drink. metoclopramide (Reglan) injection 10 mg 10 mg, intravenous, Every 6 hours PRN, nausea/vomiting, second line, Starting on Sun12/07/23 at 1259 1318 (Given - Provid er: Inocencia Azar RN) morphine injection 2 mg 2 mg, intravenous, Every 3 hours PRN, pain severe (7-10), first line, Starting on Ashlee 12/06/23 at 0512 2032 (Given - Provider: Annika Todd, RN) ondansetron (Zofran) injection 4 mg(Linked Group 2) 4 mg, intravenous, Every 8 hours PRN, nausea/vomiting, first line, Starting on Ashlee 12/06/23 at 0559, 1st Line. Give IV if patient is unable to take orally. If inadequate response within 60 minutes, proceed to next-line agent for same PRN reason or contact provider if no further options ordered. When administering via IV Push, administer over 3-5 minutes. 1123 (Given - Provider: Rashawn Oshea RN) ondansetron ODT (Zofran-ODT) disintegrating tablet 4 mg(Linked Group 2) 4 mg, oral, Every 8 hours PRN, nausea/vomiting, first line, Starting on Ashlee 12/06/23 at 0559, 1st Line. Patient should allow tablet to dissolve on tongue. Do not remove from blister pack until just before administering. If inadequate response within 60 minutes, proceed to next-line agent for same PRN reason or contact provider if no further options ordered. 1123 (See Alternative - Provider: Rashawn Oshea RN) simethicone (Mylicon) chewable tablet 80 mg 80 mg, oral, 4 times daily PRN, flatulence, Starting on Ashlee 12/06/23 at 1145 traZODone (Desyrel) tablet 100 mg 100 mg, oral, Nightly PRN, sleep, Starting on Ashlee 12/06/23 at 0932 2257 (Given - Provider: Annika Todd, KALEN) Linked Groups Order Group 1: acetaminophen (Tylenol) tablet 650 mgJump to med 650 mg, oral, Every 4 hours PRN, pain mild (1-3), first line, Starting on Ashlee 12/06/23 at 0559
If ordered PRN for pain, nurse is permitted to administer this medication for higher pain scores based on patient preference? Yes Or acetaminophen (Tylenol) oral liquid 650 mgJump to med 650 mg, oral, Every 4 hours PRN, pain mild (1-3), first line, Starting on Ashlee 12/06/23 at 0559
Give oral liquid per feeding tube if present.
Or acetaminophen (Tylenol) suppository 650 mgJump to med 650 mg, rectal, Every 4 hours PRN, pain mild (1-3), first line, Starting on Ashlee 12/06/23 at 0559
Give rectally if unable to administer by mouth or feeding tube.
If ordered PRN for pain, nurse is permitted to administer this medication for higher pain scores based on patient preference? Yes Group 2: ondansetron ODT (Zofran-ODT) disintegrating tablet 4 mgJump to med 4 mg, oral, Every 8 hours PRN, nausea/vomiting, first line, Starting on Ashlee 12/06/23 at 0559
1st Line. Patient should allow tablet to dissolve on tongue. Do not remove from blister pack until just before administering. If inadequate response within 60 minutes, proceed to next-line agent for same PRN reason or contact provider if no further options ordered.
Or ondansetron (Zofran) injection 4 mgJump to med 4 mg, intravenous, Every 8 hours PRN, nausea/vomiting, first line, Starting on Ashlee 12/06/23 at 0559
1st Line. Give IV if patient is unable to take orally. If inadequate response within 60 minutes, proceed to next-line agent for same PRN reason or contact provider if no further options ordered. When administering via IV Push, administer over 3-5 minutes.
Scheduled Medication Order 12/21/2023 12/22/2023 12/23/2023 nitrofurantoin (macrocrystal-monohydrate) (Macrobid) capsule 100 mg 100 mg, oral, Every 12 hours scheduled, First dose on 12/23/23 at 2100, Suspected Indication (Select all that apply): Urinary Tract Infection, Type of Therapy: Empiric, Type of Urinary Tract Infection: Uncomplicated 1999 (Given - Provid er: Nayeli Blount RN) ondansetron ODT (Zofran-ODT) disintegrating tablet 4 mg (COMPLETED) 4 mg, oral, Once, On 12/23/23 at 1740, For 1 dose 1758 (Given - Provid er: Nasrin Landeros RN) potassium chloride CR (Klor-Con M20) ER tablet 40 mEq (COMPLETED) 40 mEq, oral, Once, On Sun12/23/23 at 1950, For 1 dose, Best given with food and plenty of water to minimize gastric irritation. Do not crush or chew. 1999 (Given - Provid er: Nayeli Blount RN) sodium chloride 0.9 % bolus 1,000 mL (COMPLETED) 1,000 mL, intravenous, at 1,000 mL/hr, Administer over 60 Minutes, Once, On Sun12/23/23 at 1845, For 1 dose 1856 (New Bag - Prov ider: Nasrin Landeros RN)2000 (Stopped - Provider: Nayeli Blount RN) Scheduled Medication Order 01/08/2024 01/09/2024 01/10/2024 hekkupui-qqbqhnqqdn-vvlmjnsmnf (Cetacaine) spray 1 spray (COMPLETED) 1 spray, Topical, Once, On Sun01/10/24 at 1320, For 1 dose, Apply to: right lower gums 1336 (Given - Provid er: Petros Bennett RN) lidocaine (Xylocaine) 2 % mouth solution 1.25 mL (COMPLETED) 1.25 mL, Mouth/Throat, Once, On Sun01/10/24 at 1320, For 1 dose 1336 (Given - Provid er: Petros Bennett RN) Scheduled Medication Order 02/11/2024 02/12/2024 02/13/2024 sodium chloride 0.9 % bolus 1,000 mL (COMPLETED) 1,000 mL, intravenous, at 999 mL/hr, Administer over 1 Hours, Once, On Sun02/13/24 at 1510, For 1 dose 1537 (New Bag - Prov ider: Rodríguez Patrick RN)1640 (Stopped - Provider: Rodríguez Patrick RN) Scheduled Medication Order 07/07/2024 07/08/2024 07/09/2024 ibuprofen tablet 800 mg (COMPLETED) 800 mg, oral, Once, On Sun07/09/24 at 1135, For 1 dose, May administer with food to reduce GI upset., If ordered PRN for pain, nurse is permitted to administer this medication for higher pain scores based on patient preference? Yes 1137 (Given - Provid er: Angie Weller, KALEN) Scheduled Medication Order 04/04/2024 04/05/2024 04/06/2024 diphenhydrAMINE (BENADryl) injection 25 mg (COMPLETED) 25 mg, intravenous, Once, On 04/06/24 at 1455, For 1 dose, If giving IV push, max rate of 25 mg/min. 1506 (Given - Provid er: Autumn Esquivel RN) iohexol (OMNIPaque) 350 mg iodine/mL solution 69 mL (COMPLETED) 69 mL, intravenous, Once in imaging, Starting on 04/06/24 at 1458, For 1 dose 1616 (Given - Provid er: Serge Zuniga) ipratropium-albuteroL (Duo-Neb) 0.5-2.5 mg/3 mL nebulizer solution 3 mL (COMPLETED) 3 mL, nebulization, Once, On 04/06/24 at 1805, For 1 dose 1806 (Given - Provid er: Abby Aguila RRT) methylPREDNISolone sod succinate (SOLU-Medrol) injection 125 mg (COMPLETED) 125 mg, intravenous, Once, On 04/06/24 at 1455, For 1 dose 1508 (Given - Provid er: Autumn Esquivel RN) sodium chloride 0.9 % bolus 1,000 mL (COMPLETED) 1,000 mL, intravenous, at 999 mL/hr, Administer over 1 Hours, Once, On 04/06/24 at 1640, For 1 dose 1657 (New Bag - Prov ider: Emilia Lucas RN)1757 (Stopped - Provider: Chelsea Harding RN) Scheduled Medication Order 04/17/2024 04/18/2024 04/19/2024 alum-mag hydroxide-simeth (Mylanta) 200-200-20 mg/5 mL oral suspension 30 mL (COMPLETED) 30 mL, oral, Once, On 04/19/24 at 1500, For 1 dose 1528 (Given - Provid er: Virgen Hall RN) lidocaine (Xylocaine) 2 % mouth solution 15 mL (COMPLETED) 15 mL, oral, Once, On 04/19/24 at 1500, For 1 dose 1528 (Given - Provid er: Virgen Rusiska, RN) LORazepam (Ativan) tablet 1 mg (COMPLETED) 1 mg, oral, Once, On Sun04/19/24 at 1500, For 1 dose 1528 (Given - Provid er: Virgen Hall RN) Scheduled Medication Order 07/04/2024 07/05/2024 07/06/2024 ketorolac (Toradol) injection 30 mg (COMPLETED) 30 mg, intramuscular, Once, On Sun07/06/24 at 2120, For 1 dose 2125 (Given - Provid er: Lidia Miller RN) Scheduled Medication Order 11/24/2024 11/25/2024 11/26/2024 sodium chloride 0.9 % bolus 1,000 mL (COMPLETED) 1,000 mL, intravenous, at 999 mL/hr, Administer over 1 Hours, Once, On Sun11/26/24 at 1510, For 1 dose 1610 (New Bag - Prov ider: Aga Juan RN)1710 (Stopped - Provider: Blanka Link RN) Scheduled Medication Order 12/29/2024 12/30/2024 12/31/2024 sodium chloride 0.9 % bolus 1,000 mL (COMPLETED) 1,000 mL, intravenous, at 999 mL/hr, Administer over 1 Hours, Once, On Sun12/31/24 at 1405, For 1 dose 1415 (New Bag - Prov ider: Autumn Esquivel RN)1525 (Stopped - Provider: Autumn Esquivel RN) Scheduled Medication Order 01/25/2025 01/26/2025 01/27/2025 magnesium citrate solution 296 mL (COMPLETED) 296 mL, oral, Once, On Sun01/27/25 at 0330, For 1 dose 0334 (Given - Provid er: Rashawn Oshea, KALEN) ondansetron (Zofran) injection 4 mg (COMPLETED) 4 mg, intravenous, Once, On Sun01/27/25 at 0230, For 1 dose, When administering via IV Push, administer over 3-5 minutes. 0234 (Given - Provid er: Rodríguez Patrick RN) pantoprazole (Protonix) injection 40 mg (COMPLETED) 40 mg, intravenous, Once, On Sun01/27/25 at 0230, For 1 dose, Reconstitute each 40 mg vial with 10 mL NS to make 4 mg/mL solution. 0235 (Given - Provid er: Rodríguez Patrick RN) Scheduled Medication Order 02/03/2025 02/04/2025 02/05/2025 sodium chloride 0.9 % bolus 1,000 mL (COMPLETED) 1,000 mL, intravenous, at 999 mL/hr, Administer over 1 Hours, Once, On Ashlee 02/05/25 at 1635, For 1 dose 1638 (New Bag - Prov ider: Ngozi Bang RN)1754 (Stopped - Provider: Ngozi Bang RN) Scheduled Medication Order 03/30/2025 2025 04/01/2025 ketorolac (Toradol) injection 15 mg (COMPLETED) 15 mg, intravenous, Once, On Sun04/01/25 at 1230, For 1 dose 1327 (Given - Provid er: Rashawn Oshea RN) ondansetron (Zofran) injection 4 mg (COMPLETED) 4 mg, intravenous, Once, On Sun04/01/25 at 1230, For 1 dose, When administering via IV Push, administer over 3-5 minutes. 1327 (Given - Provid er: Rashawn Oshea RN) sodium chloride 0.9 % bolus 1,000 mL (COMPLETED) 1,000 mL, intravenous, at 999 mL/hr, Administer over 1 Hours, Once, On 04/01/25 at 1230, For 1 dose 1327 (New Bag - Prov ider: Rashawn Oshea RN)1617 (Stopped - Provider: Rashawn Oshea RN) Scheduled Medication Order 04/09/2025 04/10/2025 04/11/2025 dicyclomine (Bentyl) capsule 20 mg (COMPLETED) 20 mg, oral, Once, On Sun04/10/25 at 2355, For 1 dose 0000 (Given - Provid er: Anne Marie Junior RN) iohexol (OMNIPaque) 350 mg iodine/mL solution 68 mL (COMPLETED) 68 mL, intravenous, Once in imaging, Starting on 04/11/25 at 0022, For 1 dose 0048 (Given - Provid er: Mojgan Adams) ketorolac (Toradol) injection 15 mg (COMPLETED) 15 mg, intravenous, Once, On 7/5/25 at 0120, For 1 dose 0127 (Given - Provid er: Benita Gonzalez RN) ondansetron (Zofran) injection 4 mg (COMPLETED) 4 mg, intravenous, Once, On Sun04/10/25 at 2350, For 1 dose, When administering via IV Push, administer over 3-5 minutes. 2347 (Given - Provider: Benita Gonzalez RN) ondansetron (Zofran) injection 4 mg 4 mg, intravenous, Once, On Sun04/10/25 at 2350, For 1 dose, When administering via IV Push, administer over 3-5 minutes. 0052 (Not Given - Provider: Anne Marie Junior RN - Reason: Other - Comment: du[licate order) FOR RECORDS PERTAINING TO PATIENTS WHO ARE OR HAVE BEEN ENROLLED IN A CHEMICAL DEPENDENCY/SUBSTANCEABUSE PROGRAM, SOME INFORMATION MAY BE OMITTED. This clinical summary was aggregated from multiple sources. Caution should be exercised in using it in the provision of clinical care. This summary normalizes information from multiple sources, and as a consequence, information in this document may materially change the coding, format and clinical context of patient data. In addition, data may be omitted in some cases. CLINICAL DECISIONS SHOULD BE BASED ON THE PRIMARY CLINICAL RECORDS. [employer] [facility]. provides no warranty or guarantee of the accuracy or completeness of information in this document.
== END 2025-05-20 15:46 | disposition home or self-care (01) ==
LOC: EN 13:23 → AC 13:25
PROVIDERS: PCP Nurse Practitioner Family; Referring Provider Nurse Practitioner Family; Visit Provider Internal Medicine Gastroenterology
PROC: 0DJD8ZZ Inspection of Lower Intestinal Tract, Via Natural or Artificial Opening Endoscopic (ICD-10-PCS; CPT 45378; principal; 2025-05-20 14:25)
DX: K29.50 Unspecified chronic gastritis without bleeding (principal); E11.9 Type 2 diabetes mellitus without complications; D12.5 Benign neoplasm of sigmoid colon; K63.89 Other specified diseases of intestine; F32.A Depression, unspecified; F41.9 Anxiety disorder, unspecified; K58.9 Irritable bowel syndrome, unspecified; E78.00 Pure hypercholesterolemia, unspecified; Z90.49 Acquired absence of other specified parts of digestive tract; Z86.73 Personal history of transient ischemic attack (TIA), and cerebral infarction without residual deficits; Z79.85 Long-term (current) use of injectable non-insulin antidiabetic drugs; Z79.899 Other long term (current) drug therapy; Z87.891 Personal history of nicotine dependence
CPT/HCPCS: 44361; 45380; 82962; 88305; 88342; J2405

== ENCOUNTER → 2025-08-20 | Outpatient (CLI) | payer OTHER, SELFPAY ==
[2025-08-22 15:08] LABS: H. PYLORI STOOL AG Negative (Negative)
== END | disposition home or self-care (01) ==
LOC: LAB 13:32 → LABSPEC 14:04
PROVIDERS: Referring Provider Nurse Practitioner Acute Care; Visit Provider Nurse Practitioner Acute Care
DX: A04.8 Other specified bacterial intestinal infections (principal)
CPT/HCPCS: 87338